=== PATIENT | female | born 1965 | race Caucasian/White ===

== ENCOUNTER 2020-10-20 15:32 | Outpatient (CLI) | payer MEDICARE, MEDICAID, SELFPAY ==
--- NOTE | 2020-10-20 15:15 | DI.RAD_ITS ---
Exam(s) XR KNEE LT 4V AP,LAT,VALENTE,PAT EXAM: XR KNEE LT 4V AP,LAT,VALENTE,PAT CLINICAL HISTORY: pain in left knee. TECHNIQUE: 2D digital imaging was performed. COMPARISON: No exams were available for comparison FINDINGS: There is no evidence of fracture but there is a joint effusion signifying internal derangement. Mode rate degenerative changes-narrowing of the medial compartment are noted. Bone density is age-appropr iate. No osseous lesions. IMPRESSION: Degenerative changes. Joint effusion. DATA REPOSITORY: RADIATION DOSE DELIVERED:
== END 2020-10-20 15:33 | disposition home or self-care (01) ==
LOC: DIORS 15:33
PROVIDERS: PCP Nurse Practitioner; Referring Provider Nurse Practitioner; Visit Provider Physician Assistant Surgical
DX: M25.562 Pain in left knee (principal); M25.462 Effusion, left knee
CPT/HCPCS: 20610; 99203; J1040; 73564

== ENCOUNTER 2022-01-16 14:37 | Emergency (ER) | payer MEDICARE, MEDICAID, SELFPAY ==
[2022-01-16 14:47] VITALS: BP 130/82; PULSE 96; RESP 18; TEMP 36.7; O2SAT 97
--- NOTE | 2022-01-16 15:15 | DI.CT_ITS ---
Exam(s) CT HEAD CERVICAL SPINE WO EXAM: CT HEAD CERVICAL SPINE WO CLINICAL HISTORY: fall/pain. TECHNIQUE: Imaging Protocol: Axial computed tomography images with coronal and sagittal reformatted images were created and reviewed COMPARISON: No exams were available for comparison FINDINGS: BRAIN: There are no skull fractures nor fluid in the visualized paranasal sinuses. There is no evidence of intracranial hemorrhage, mass effect, or shift of midline structures. There are no extra-axial fluid collections. The ventricles are not enlarged or shifted and there is no blo od within the ventricular system nor within the basal cisterns. Mildly asymmetric hypodensity is seen around the frontal horn of the right lateral ventricle. CERVICAL SPINE: There is no evidence of fracture nor listhesis. No significant prevertebral soft tissue swelling. Mild disc space narrowing at C4-5 and C5-6 levels. Minimal facet degenerative changes, most evident at C 3-4 left side. There is no significant facet joint malalignment. No significant osseous lesions evident. IMPRESSION: No acute intracranial findings on this noninfused CT scan of the brain.Slightly asymmetric white doyle er hypodensity around the frontal horn of the right lateral ventricle. If clinically indicated follo w-up MRI with diffusion imaging can be performed No evidence of cervical spine fracture, malalignment, nor acute compromise of the cervical spinal can al. RADIATION DOSE DELIVERED: 1,105.49mGy.cm Total DLP DATA REPOSITORY: All CT scans at this facility are submitted to the National Radiology Data Registry (NRDR) Dose Index Registry (DIR) with the [employer] (ACR). RADIATION OPTIMIZATION: All CT scans at this facility use at least one of these dose optimization te chniques: automated exposure control; mA and/or kV adjustment per patient size (includes targeted exa ms where dose is matched to clinical indication); or iterative reconstruction.
--- NOTE | 2022-01-16 15:20 | W.ED.GENAD ---
Discharge Plan Disposition Patient Disposition: STILL A PATIENT Condition: Stable Discharge Details Chief Complaint: Trauma Clinical Impression: Head injury, Neck pain Primary Care Provider: Taylor Bryant ED Provider: Antonio Miles Home Meds and New Rx's Prescriptions: No Action ibuprofen [Advil Liqui-Gel] 200 mg capsule 600 mg PO Q12H PRN acetaminophen [Tylenol Extra Strength] 500 mg tablet 500 mg PO Q6H PRN fluoxetine 40 mg Capsule 40 mg PO DAILY Rx Instructions: administer in the morning and at noon/midday Medical Decision Making 56-year-old female had a mechanical slip and fall while trimming bushes, reports striking her head and neck pain, denies LOC or visual changes. Clinically she appears well, nontoxic. Plan is to obtain CT imaging of head and C-spine. Patient is neurologically intact. Medical Records Medical records reviewed: Yes I reviewed the patient's medical records. HPI General Mode of arrival: ambulatory. Date/Time Provider Initiated Documentation: 01/16/22 14:55. Limitations to Documentation: no limitations. Information obtained by: patient. History of Present Illness 56 year old F presents to the emergency department with the chief complaint of Fall/ Head/neck pain, described as moderate, with intensity rated at 5. Quality is described as aching, and is localized to the head and neck. Patient reports no radiation. Patient started experiencing this hour(s) (1) and it has been constant. Immobilization improves symptom(s), Movement worsens symptoms . Patient notes no other symptoms.. Patient did receive the following treatments prior to arrival, none Related Data Home Medications Medication Instructions Recorded Confirmed acetaminophen 500 mg tablet 500 mg PO Q6H PRN 10/20/20 01/16/22 (Tylenol Extra Strength) ibuprofen 200 mg capsule (Advil 600 mg PO Q12H PRN 10/20/20 01/16/22 Liqui-Gel) fluoxetine 40 mg capsule 40 mg PO DAILY 01/16/22 01/16/22 Allergies Allergy/AdvReac Type Severity Reaction Status Date / Time codeine Allergy Intermediate Nausea Verified 01/16/22 14:51 General Stated Complaint: Trauma SHAUN: 3 Review of Systems Constitutional Constitutional: Denies fever(s) and Reports headache(s) Eyes Eyes: Denies change in vision ENT Ears, Nose, Mouth, and Throat: Reports headache(s) and Reports neck pain Cardiovascular Cardiovascular: Denies chest pain and Denies dyspnea Respiratory Respiratory: Denies dyspnea Gastrointestinal Gastrointestinal: Denies abdominal pain, Reports nausea and Denies vomiting Musculoskeletal Musculoskeletal: Denies back pain, Reports neck pain, Denies numbness and Denies tingling Neurologic Neurologic: Reports headache(s), Denies numbness and Denies tingling Hematologic/Lymphatic Hematologic/Lymphatic: Denies easy bleeding and Denies easy bruising PFSH All Active Problems (Updated 01/16/22 @ 15:25 by PATEL Pearson) Head injury (Acute) Neck pain (Acute) Psoriatic arthritis (Acute) left knee Social History Smoking/Tobacco Use Status: Never Smoking risk assessment performed?: Yes Alcohol Intake: current Alcohol Intake frequency: holidays/special occasions only Alcohol type: beer and wine Drug use: Never Substance use type: does not use Do you feel safe at home: Yes Do you feel safe in your relationship?: Yes Exam Const General: cooperative, healthy appearing, comfortable and no acute distress Orientation: alert, awake and oriented x3 [facility] Head: normocephalic Head images: 1. Contusion Face images: 1. Abrasion Mouth: moist mucous membranes Eyes General: appearance normal, both eyes and all related structures Conjunctivae: conjunctivae normal Neck Neck: normal visual inspection, trachea midline, supple and tender (Posterior, in a hard c-collar) Resp Effort & Inspection: normal respiratory effort and able to speak in complete sentences Auscultation: clear to auscultation bilaterally Cardio Rate: regular rate Rhythm: regular rhythm GI Palpation: soft and nontender Back/Spine/Pelvis Back: No back tenderness Skin General skin exam: no rashes or lesions noted Neuro General: patient alert, patient awake, patient oriented x3, moves all extremities and no focal motor deficits Cranial Nerves: CN's II-XI intact bilaterally Cognition: normal cognition Speech: speech normal Gait: normal gait Motor: muscle tone normal throughout and strength 5/5 throughout Sensory Exam: no sensory deficits noted Extrem General: full ROM and capillary refill normal Upper/lower leg/hip images: 1. Abrasions and contusions Psych Appearance: grossly normal Mental Status: mental status grossly normal Course Vital Signs Vital signs: Vital Signs Temperature 36.7 C 01/16/22 14:47 Pulse 96 H 01/16/22 14:47 Respiratory Rate 18 01/16/22 14:47 Blood Pressure 130/82 01/16/22 14:47 Pulse Oximetry 97 01/16/22 14:47 Temperature 36.7 C 01/16/22 14:47 Temperature Source Temporal Artery Scan 01/16/22 14:47 Pulse 96 H 01/16/22 14:47 Respiratory Rate 18 01/16/22 14:47 Respiratory Effort Non-Labored 01/16/22 14:52 Blood Pressure 130/82 01/16/22 14:47 Blood Pressure Position Sitting 01/16/22 14:47 Pulse Oximetry 97 01/16/22 14:47 Oxygen Delivery Method Room Air 01/16/22 14:47 Oxygen Flow Rate 0 01/16/22 14:47 Pain Level 01/16/22 14:47 PAWSS Have you Been Recently Intoxicated or Drunk Within the Last 30 days?: No Have you Ever Experienced Previous Episodes of Alcohol Withdrawal?: No Have you ever Experienced Withdrawal Seizures?: No Have you ever Experienced Delirium Tremens(DT)s?: No Have you ever undergone Alcohol Rehabilitation Treatment (i.e, inpt ot outpatient treatment programs)?: No Have you ever Experienced Blackouts?: No Have you ever Combined Alcohol with other Downers within the last 90 days?: No Have you ever Combined Alcohol with any other Substance of Abuse during the last 90 days?: No Positive Blood Alcohol level on Presentation? [PCS.BAL]: No Evidence of Increased Autonomic Activity (i.e. HR>120, tremor, sweating, agitation, nausea)?: No Result: 0
--- NOTE | 2022-01-16 15:59 | ED.PROG_ITS ---
Date of service: 01/16/22 Time of Service: 15:59 Medical Decision Making Care assumed from provider (PATEL Barone) Please see their initial HPI, PE, and documentation. Discussed patient details and case and pending workup and disposition. Patient is hemodynamically stable, and alert and oriented. At the time of signout CT head C-spine pending. CT result is negative for intracranial abnormality no cervical spine fracture. This text was generated using [employer] dictation system, please disregard any od dities of phrase or misspellings. Sign Out Sign Out Data: Sign Out Comment: Mechanical fall. Awaiting head and C-spine CT Last updated by Antonio Miles PA at 01/16/22 15:26 Discharge Plan Disposition Patient Disposition: HOME Condition: Stable Discharge Details Clinical Impression: Head injury, Neck pain Primary Care Provider: Taylor Bryant ED Provider: Janeth Morris Home Meds and New Rx's Prescriptions: No Action ibuprofen [Advil Liqui-Gel] 200 mg capsule 600 mg PO Q12H PRN acetaminophen [Tylenol Extra Strength] 500 mg tablet 500 mg PO Q6H PRN fluoxetine 40 mg Capsule 40 mg PO DAILY Rx Instructions: administer in the morning and at noon/midday Discharge Instructions Instructions: Head Injury (ED), Neck Pain (ED) Additional Instructions: CT shows no intracranial hemorrhage or any acute abnormality. No fractures of your C-spine. I do suspect cervical strain. Rest ice. You may apply ice and heat. Please take Tylenol or Ibuprofen with food every 4-6 hours as needed for pain and swelling. Follow up with primary care provider in 3-5 days. Return to ED sooner if any worsening or concerns. Increase oral fluids. Referrals: Taylor Bryant [Primary Care Provider] - 3 days
--- NOTE | 2022-01-16 17:58 | DI.VRAD_ITS ---
PROCEDURE INFORMATION: Exam: CT Head Without Contrast Exam date and time: 01/16/2022 5:35 PM Age: 56 years old Clinical indication: Injury or trauma; Blunt trauma (contusions or hematomas); Consciousness not specified; Patient HX: Fall/pain TECHNIQUE: Imaging protocol: Computed tomography of the head without contrast. COMPARISON: No relevant prior studies available. FINDINGS: Brain: Normal. No hemorrhage. Unremarkable white matter. No mass effect. Cerebral ventricles: No ventriculomegaly. Paranasal sinuses: Visualized sinuses are unremarkable. No fluid levels. Mastoid air cells: Visualized mastoid air cells are well aerated. Bones/joints: Unremarkable. No acute fracture. Soft tissues: Unremarkable. IMPRESSION: 1. No acute intracranial abnormality. 2. No intracranial hemorrhage. PROCEDURE INFORMATION: Exam: CT Cervical Spine Without Contrast Exam date and time: 01/16/2022 5:35 PM Age: 56 years old Clinical indication: Injury or trauma; Blunt trauma (contusions or hematomas); Consciousness not specified; Patient HX: Fall/pain TECHNIQUE: Imaging protocol: Computed tomography of the cervical spine without contrast. COMPARISON: No relevant prior studies available. FINDINGS: Bones/joints: No acute fracture. Normal alignment. No significant disc protrusion. No severe spinal canal stenosis. Lungs: Lung apices are normal. Soft tissues: Unremarkable. IMPRESSION: 1. No acute findings. 2. No fracture or dislocation. Dictated and Authenticated by: Nirmal Garcia MD. Ordering:ADOLFO Alvarez MD
[2022-01-16 18:12] VITALS: BP 128/72; PULSE 72; RESP 17; TEMP 36.8; O2SAT 98
== END 2022-01-16 18:15 | disposition home or self-care (01) ==
PROVIDERS: Emergency Provider Registered Nurse Emergency; PCP Nurse Practitioner
DX: S00.83XA Contusion of other part of head, initial encounter (principal); G89.11 Acute pain due to trauma; M54.2 Cervicalgia; S80.11XA Contusion of right lower leg, initial encounter; S80.12XA Contusion of left lower leg, initial encounter; W01.0XXA Fall on same level from slipping, tripping and stumbling without subsequent striking against object, initial encounter; Y93.H2 Activity, gardening and landscaping
CPT/HCPCS: 99284; 70450; 72125; 99282

== ENCOUNTER 2022-10-26 12:55 | Emergency (ER) | payer MEDICARE, MEDICAID, SELFPAY ==
--- NOTE | 2022-10-26 12:45 | RT.EKG_ITS ---
APPROVED REPORT Exam: Resting ECG Reason for Exam: chest pain Patient Location: E HR:83 bpm ECG Measurements Heart Rate 83 AXIS NV 140 P 55 QRSd 94 QRS -29 QT 349 T 28 QTc 410 Conclusion Sinus rhythm...normal P axis, V-rate 60- 99 Probable left atrial enlargement...P >50mS, <-0.10mV V1 Narrow complex normal sinus rhythm at a rate of 83. Left axis deviation. No signs of LVH. Interval s within normal limits. No acute injury pattern. No prior for comparison.
[2022-10-26 12:59] VITALS: BP 155/88; PULSE 80; RESP 18; TEMP 36.8; O2SAT 99
--- NOTE | 2022-10-26 13:24 | ED.GENADUL_ITS ---
Discharge Plan Disposition Patient Disposition: Home Condition: Stable Discharge Details Clinical Impression: Chest pain Primary Care Provider: Taylor Bryant ED Provider: Inderjit Marsh Home Meds and New Rx's Prescriptions: Continued ibuprofen [Advil Liqui-Gel] 200 mg capsule 600 mg PO Q12H PRN acetaminophen [Tylenol Extra Strength] 500 mg tablet 500 mg PO Q6H PRN fluoxetine 40 mg Capsule 40 mg PO DAILY Rx Instructions: administer in the morning and at noon/midday Discharge Instructions Instructions: Chest Pain (ED) Additional Instructions: your ekg and blood work did not show concerning findings at this time Follow up with your primary care provider within 1 week if you feel more ill, have severe worsening pain or difficulty breathing return to the emergency department Medical Decision Making 57 yo female with hx of depression comes in with cc of chest aching sensation radiating to the back and feeling lightheaded since 11am this morning. Denies fevers, chills, dyspnea, n/v, diaphoresis. She arrives stable, speaking in full sentences in no distress. She has clear lungs, no murmurs, no jvd, no leg swelling, no calf tenderness. Given her complaint will proceed with cbc, cmp, troponin, d dimer and monitor. She has no tearing back pain and normal equal pulses so doubt dissection. Pt stable, labs unremarkable and she feels better, will obtain delta troponin. patient asymptomatic, stable, delta troponin negative. HEArt score is 1, stable for d/c and advised to f/u with pcp, return precautions given Differential Diagnosis Differential Diagnosis: nstemi, pe, anxiety Lab Data Lab results reviewed: Yes I reviewed the patient's lab results. ECG Data Attestation: I personally reviewed and interpreted this ECG (s) as follows: Prior ECG tracings: not available for review Interpretation: sinus rhythm, rate of 83, pr 140, qtc 410, no acute ischemic findings HPI General Mode of arrival: ambulatory . Date/Time Provider Initiated Documentation: 10/26/22 12:59 . Limitations to Documentation: no limitations . Information obtained by: patient . History of Present Illness 57 year old F presents to the emergency department with the chief complaint of chest pain, described as moderate, Quality is described as aching, and is localized to the chest. Patient reports radiation to back. Patient started experiencing this hour(s) (2) and it has been constant. No relieving factors improve symptom(s), No exacerbating factors reported . Patient notes other (lightheaded). Patient did receive the following treatments prior to arrival, NSAID Related Data Home Medications Medication Instructions Recorded Confirmed acetaminophen 500 mg tablet 500 mg PO Q6H PRN 10/20/20 01/16/22 (Tylenol Extra Strength) ibuprofen 200 mg capsule (Advil 600 mg PO Q12H PRN 10/20/20 01/16/22 Liqui-Gel) fluoxetine 40 mg capsule 40 mg PO DAILY 01/16/22 01/16/22 Allergies Allergy/AdvReac Type Severity Reaction Status Date / Time codeine Allergy Intermediate Nausea Verified 01/16/22 14:51 General Stated Complaint: Chest Pain SHAUN: 3 Review of Systems All systems reviewed & are unremarkable except as noted in HPI and below Constitutional Constitutional: Denies chills, Denies fever(s) and Denies weakness Cardiovascular Cardiovascular: Denies dyspnea Respiratory Respiratory: Denies cough and Denies dyspnea Gastrointestinal Gastrointestinal: Denies abdominal pain, Denies nausea and Denies vomiting Integumentary/Breasts Skin/Breast: Denies rash Neurologic Neurologic: Denies weakness PFSH All Active Problems (Updated 10/26/22 @ 15:03 by Inderjit Marsh MD) Chest pain (Acute) Psoriatic arthritis (Acute) left knee Social History Smoking/Tobacco Use Status: Never Smoking risk assessment performed?: Yes Alcohol Intake: current Alcohol Intake frequency: holidays/special occasions only Alcohol type: beer and wine Drug use: Never Substance use type: does not use Do you feel safe at home: Yes Do you feel safe in your relationship?: Yes Exam Const General: no acute distress Orientation: alert HENNY Head: normal to inspection Ears: external ears normal General nose exam: external nose normal Mouth: moist mucous membranes Eyes General: appearance normal, both eyes and all related structures Neck Neck: normal visual inspection Resp Effort & Inspection: normal respiratory effort and able to speak in complete sentences Auscultation: clear to auscultation bilaterally Cardio Jugular venous pressure: no JVD Rate: regular rate Heart Sounds: no murmurs GI Palpation: soft and nontender Skin General skin exam: no rashes or lesions noted Neuro General: patient alert and patient oriented x3 Extrem General: normal to inspection Psych Mental Status: mental status grossly normal Course Vital Signs Vital signs: Vital Signs Temperature 36.8 C 10/26/22 12:59 Pulse 80 10/26/22 12:59 Respiratory Rate 18 10/26/22 12:59 Blood Pressure 155/88 H 10/26/22 12:59 Pulse Oximetry 99 10/26/22 12:59 Temperature 36.8 C 10/26/22 12:59 Temperature Source Oral 10/26/22 12:59 Pulse 80 10/26/22 12:59 Respiratory Rate 18 10/26/22 12:59 Respiratory Effort Normal, Short of Breath 10/26/22 13:04 Blood Pressure 155/88 H 10/26/22 12:59 Blood Pressure Position Sitting 10/26/22 12:59 Pulse Oximetry 99 10/26/22 12:59 Oxygen Delivery Method Room Air 10/26/22 12:59 Oxygen Flow Rate 0 10/26/22 12:59 Pain Level 8 10/26/22 12:59
[2022-10-26 13:57] LABS: Abs Immature Grans 0.03 10^3/uL (0.0-0.06); Absolute Basophil Count 0.04 10^3/uL (0.0-0.2); Absolute Eosinophil Count 0.16 10^3/uL (0.0-0.7); Absolute Monocyte Count 0.52 10^3/uL (0.1-0.8); Basophils % 0.7; Eosinophils % 2.9; HCT 37.5 % (36.0-46.0); HGB 12.6 g/dL (11.2-15.7); Immature Grans % 0.5; MCH 30.5 pg (27.0-33.0); MCHC 33.6 % (32.0-36.0); MCV 91 fL (80-95); MPV 10.8 fL (8.0-11.0); Monocytes % 9.4; Neutrophils % 59.5; Platelet Count 274 10^3/uL (130-400); RBC 4.13 10^6/uL (3.93-5.22); RDW 13.5 % (11.7-14.6); RDW-SD 44.9 fL; WBC 5.55 10^3/uL (4.4-10.8)
[2022-10-26 14:15] LABS: ALT 59 U/L (14-59); AST 24 U/L (15-37); Albumin 3.7 g/dL (3.4-5.0); Alkaline Phosphatase 67 U/L (46-116); Anion Gap 8.1 mmol/L (3-11); BUN 28 mg/dL (7-18); Bilirubin, Total 0.7 mg/dL (0.2-1.0); CO2 26.9 mmol/L (21.0-32.0); Chloride 106 mmol/L (98-107); Estimated GFR 65.71 (mL/min/1.73m2); Glucose 101 mg/dL (74-106); Lipase 41 U/L (16-77); Magnesium 1.9 mg/dL (1.8-2.4); Potassium 4.4 mmol/L (3.5-5.1); Sodium 141 mmol/L (136-145); Total Protein 6.9 g/dL (6.4-8.2); Troponin I < 50 ng/L (<or=60)
[2022-10-26 14:34] LABS: D-Dimer 291 ng/mlFEU (<500)
[2022-10-26 14:37] LABS: PTT Activated 23.6 sec (21.5-31.9); Prothrombin Time 9.9 sec (9.3-11.0)
[2022-10-26 16:40] LABS: Troponin I < 50 ng/L (<or=60)
== END 2022-10-26 17:26 | disposition home or self-care (01) ==
PROVIDERS: Emergency Provider Emergency Medicine; PCP Nurse Practitioner
DX: R07.9 Chest pain, unspecified (principal)
CPT/HCPCS: 80053; 83690; 93005; 99283; 83735; 84484; 85025; 85379; 85610; 85730; 93010

== ENCOUNTER 2023-12-05 02:24 | Outpatient (CLI) | payer MEDICARE, MEDICAID, SELFPAY ==
--- OUTSIDE RECORDS SUMMARY | 2023-12-05 02:25 | XMS_ITS | Encounter Summary ---
Author Organization [facility] Address [facility] [place] [address] Care Team Providers Care Caddy/Caddie Supervisor Name Role Phone Taylor Bryant APRN Primary Care Provider [phone] Encounter Details Date Type Department Care Team ([facility] st Contact Info) Description 11/16/2023 Telephone Otolaryngology at [facility] [place] [id number] Mary Lou Bryant Social History Tobacco Use Types Packs/Day Years Used Date Smoking Tobacco: Former Smokeless Tobacco: Never Comments:quit at age 35 Alcohol Use Standard Drinks/Week Comments Yes 0 (1 standard drink = 0.6 oz pur e alcohol) social gatherings [facility] Utilities Answer Date Recorded In the past 12 months has e electric, gas, oil, or water company threatened to shut off services in your home? No 07/24/2023 Overall Financial Resource Strain (CARDIA) Answe r Date Recorded How hard is it for you to pa y for the very basics like food, housing, medical care, and heating? Hard 07/24/2023 Hunger Vital Sign Answer Date Recorded Within the past 12 months, y ou worried that your food would run out before you got the money to buy more. Never true 07/24/19 24 Within the past 12 months, t he food you bought just didn't last and you didn't have money to get more. Never true 07/24/2023 PRAPARE - Transportation Answer Date Re corded In the past 12 months, has l ack of transportation kept you from medical appointments or from getting medications? No 07/07 In the past 12 months, has l ack of transportation kept you from meetings, work, or from getting things needed for daily living? No 07/24/2023 Housing Stability Vital Sign Answer Dirk e Recorded In the last 12 months, was t here a time when you were not able to pay the mortgage or rent on time? No 07/24/2023 In the last 12 months, how many places have you lived? 1 07/24/2023 In the last 12 months, was t here a time when you did not have a steady place to sleep or slept in a group home (including now)? No 07/24/2023 IPV Inpatient Questions Answer Date Recorded Does Anyone Try to Keep You From Having Contact with Others or Doing Things Outside Your Home? unable to answer (comment required) 09/28/2023 Feels Threatened by Someone unable to an swer (comment required) 09/28/2023 Feels Unsafe at Home or Work/School unab le to answer (comment required) 09/28/2023 Physical Signs of Abuse Present no 09/28/2023 Sex and Gender Information Value Date Recorded Sex Assigned at Not on file Gender Identity Not on file Sexual Orientation Not on file documented as of this encounter Miscellaneous Notes * Telephone Encounter - Mary Lou Bryant - 11/16/2023 9:13 AM EDT Spoke with pt in regards to 11/16 bump to reschedule. documented in this encounter Plan of Treatment Upcoming Encounters Date Type Department Care Team (Late st Contact Info) Description 12/20/2023 2:15 PM EDT Office Visit Dermatology at [place] [address] [place] [address] Inderjit Vilchis MD [facility] [address] [place] [address] 12/22/2023 10:00 AM EDT Office [place] [address] Norm Joy PA [facility] [place] [address] 12/26/2023 11:45 AM EDT Appointment Hematology and Oncology at [place] [address] 12/26/2023 12:45 PM EDT Office Visit Hematology and Oncology at [address] Jean-Pierre Peña MD [facility] [address] [place] [address] Vicky Burnham APRN [facility] [place] [address] 12/26/2023 2:30 PM EDT Appointment Hematology and Oncology at [place] [address] 02/06/2024 10:00 AM EDT Appointment Hematology and Oncology at [place] [address] 02/06/2024 12:45 PM EDT Office Visit Hematology and Oncology at [place] [address] Jean-Pierre Peña MD [facility] [address] [place] [address] Vicky Burnham APRN [facility] [place] [address] 02/06/2024 2:00 PM EDT Appointment Hematology and Oncology at [place] [address] documented as of this encounter Visit Diagnoses Not on filedocumented in this encounter Care Teams Caddy/Caddie Supervisor Relationship Specialty Start Date End Date Taylor Bryant APRN [address] [place] [id number] PCP - General 03/31/10 documented as of this encounter
--- OUTSIDE RECORDS SUMMARY | 2023-12-05 02:25 | XMS_ITS | Encounter Summary ---
Author Organization [facility] [place] [address] Care Team Providers Care Telephone Sales Representative Name Role Phone Taylor Bryant APRN Primary Care Provider [phone] Encounter Details Date Type Department Care Team ([facility] st Contact Info) Description 11/29/2023 Telephone Hematology [place] [phone] Gianna Sanabria RN Social History Tobacco Use Types Packs/Day Years Used Date Smoking Tobacco: Former Smokeless Tobacco: Never Comments:quit at age 35 Alcohol Use Standard Drinks/Week Comments Yes 0 (1 standard drink = 0.6 oz pur e alcohol) social gatherings [facility] Utilities Answer Date Recorded In the past [...] place to sleep or slept in a senior living (including now)? 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 Call placed to [facility] to reassess her joint pain. Patient reported no improvement on her joint pain especially on her hands. Swelling noted right>left, numbness and tingling since it's hard to move her fingers. Patient is taking Advil and Tylenol w/some relief. Patient noticed more muscle pain after her last Keytruda treatment on . No redness and deformity noted. Patient is not on Prednisone Patient will be seen on 12/[address] Peña and would like to discuss if she can move her treatment back to every 3 weeks, but [facility] Patient is wondering if she is going to have CT scan scheduled with her appointment on 02/05. Patient notified that triage nurse would f/u with provider & get back to her. Patient verbalizes agreement to call office for any new or worsening symptoms. Per Lucina:Please have her start 20mg prednisone daily. I will place the order now; please check on her in a day or two and verify improvement of symptoms. 20mg pred for 7 days And then 10mg for 7 days dependent on symptoms. Starting 12/25 we will lower pembro dose back to 200mg every 3 weeks. We will schedule CT accordingly with January appt. T/C to patient: Call placed to patient who was notified to start taking Prednisone 20 mg daily x 7days 11/28- and then 10 mg x 7days depending on symptoms. Nursing to call patient within couple days to reassess joint pain & call on to discuss prednisone taper. Patient notified that Pembro dose will be decreased to 200 mg on 12/[address] will be ordered for January. Patient verbalizes agreement and understanding of plan of care and to call office for any new or worsening symptoms. documented in this encounter Plan of Treatment Upcoming Encounters Date Type Department Care Team (Late st Contact Info) Description 12/20/2023 2:15 PM EDT Office Visit Dermatology at [address] [address] Inderjit Vilchis MD [facility] DR GILBERTO [place] [address] 12/22/2023 10:00 AM EDT Office Visit [place] [phone] Norm Joy PA [facility] [place] [address] 12/26/2023 11:45 AM EDT Appointment Hematology [place] [phone] 12/26/2023 12:45 PM EDT Office Visit Hematology [place] [phone] Jean-Pierre Peña MD [facility] DR HEMATOLOGY [place] [address] Vicky Burnham APRN [facility] [place] [address] 12/26/2023 2:30 PM EDT Appointment Hematology and Oncology at [place] [phone] 02/06/2024 10:00 AM EDT Appointment Hematology and Oncology at [place] [phone] 02/06/2024 12:45 PM EDT Office Visit Hematology and Oncology at [place] [phone] Jean-Pierre Peña MD [facility] DR HEMATOLOGY [place] [address] Vicky Burnham [employer] [facility] [place] [address] 02/06/2024 2:00 PM EDT Appointment Hematology [place] [address] documented as of this encounter Visit Diagnoses Not on filedocumented in this encounter Care Teams Telephone Sales Representative Relationship Specialty Start Date End Date Taylor Bryant APRN [address] [place] [id number] PCP - General 03/31/10 documented as of this encounter
--- OUTSIDE RECORDS SUMMARY | 2023-12-05 02:25 | XMS_ITS ---
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 Medication management 07/25/2023 Bilateral knee pain 12/14/2017 Psoriatic arthritis 06/09/2016 Current Oncology Plans [facility] ON[facility] SKIN MELANOMA - PEMBROLIZUMAB* Plan Start Date:08/23/2023 Plan Provider:Jean-Pierre Peña MD Linked Problems Medication managementMaligna nt melanoma of scalp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, unspecified lymph node region Treatment Medications Current Day (Day 1 , Cycle 6 - Planned for 12/26/2023) Next Day (Day 1, Cycle 7 - Planned for 02/06/2024) pembrolizumab (Keytruda) in sodium chloride 0.9% 100 mL infusionpembrolizumab (Keytruda) Recon Soln pembrolizumab (Keytruda) 400 mg in sodium chloride 0.9% 116 mL infusion pembrolizumab (Keytruda) 400 mg in sodium chloride 0.9% 116 mL infusion Past Plans No past plan information found. Radiation Treatments * No radiation treatments are documented for this patient in [facility]. Treatments may have been administered in another system.
--- OUTSIDE RECORDS SUMMARY | 2023-12-05 02:25 | XMS_ITS | Encounter Summary ---
Author Organization [facility] Address [facility] [place] [address] Care Team Providers Care Lifter/Driver Name Role Phone AnnetteTaylor ZARA Primary Care Provider [phone] Encounter Details Date Type Department Care Team ([facility] st Contact Info) Description 11/29/2023 Orders Only Hematology [place] [address] Vicky Burnham [employer] [facility] [place] [address] Social History Tobacco Use Types Packs/Day Years Used Date Smoking Tobacco: Former Smokeless Tobacco: Never Comments:quit at age 35 Alcohol Use Standard Drinks/Week Comments Yes 0 (1 standard drink = 0.6 oz pur e alcohol) social gatherings [facility] Utilities Answer Date Recorded In the past 12 months has th e electric, gas, oil, or water company [...] place to sleep or slept in a prison (including now)? No 07/24/2023 IPV Inpatient Questions [...] on file documented as of this encounter Plan of Treatment Upcoming Encounters Date Type Department Care Team (Late st Contact Info) Description 12/20/2023 2:15 PM EDT Office Visit Dermatology at [address] [address] Inderjit Vilchis MD [facility] DR GILBERT[place] [address] 12/22/2023 10:00 AM EDT Office [place] [phone] Norm Joy PA [facility] [place] [address] 12/26/2023 11:45 AM EDT Appointment Hematology [place] [phone] 12/26/2023 12:45 PM EDT Office Visit [place]ematology [place] [address] Jean-Pierre Peña MD [facility] [place] [address] Vicky Burnham APRN [facility] [place] [place] [address] 12/26/2023 2:30 PM EDT Appointment Hematology and Oncology at [place] [address] 02/06/2024 10:00 AM EDT Appointment Hematology and Oncology at [place] [phone] 02/06/2024 12:45 PM EDT Office Visit Hematology and Oncology at [place] [address] Jean-Pierre Peña MD [facility] [place] [address] Vicky Burnham [employer] [facility] [place] [address] 02/06/2024 2:00 PM EDT Appointment Hematology and Oncology at [place] [phone] documented as of this encounter Visit Diagnoses Not on filedocumented in this encounter Care Teams Lifter/Driver Relationship Specialty Start Date End Date Taylor Bryant APRN [address] [place] [address] PCP - General 03/31/10 documented as of this encounter
--- OUTSIDE RECORDS SUMMARY | 2023-12-05 02:25 | XMS_ITS | Encounter Summary ---
Author Organization [facility] Address [facility] [place] [address] Care Team Providers Care Wash Barrel Leader Name Role Phone Taylor Bryant APRN Primary Care Provider [phone] Encounter Details Date Type Department Care Team ([facility] st Contact Info) Description 11/21/2023 Telephone Hematology [place] [phone] Roselyn Sánchez Social History Tobacco Use Types Packs/Day Years Used Date Smoking Tobacco: Former Smokeless Tobacco: Never Comments:quit at age 35 Alcohol Use Standard Drinks/Week Comments Yes 0 (1 standard drink = 0.6 oz pur e alcohol) social gatherings [facility] Utilities Answer Date Recorded In the [...] place to sleep or slept in a snf (including now)? No 07/24/2023 IPV Inpatient Questions [...] encounter Miscellaneous Notes * Telephone Encounter - Roselyn Sánchez - 11/21/2023 4:17 PM EDT [facility] Dry Dip Worker spoke to Keeley. [facility] awarded another $175 to be used for gas expenses for [facility] appt. No further outreach needed at this time. Patient has my contact information if she need future assistance. Roselyn Sánchez documented in this encounter Plan of Treatment Upcoming Encounters Date Type Department Care Team (Late st Contact Info) Description 12/20/2023 2:15 PM EDT Office Visit Dermatology at [place] [address] [place] [address] Inderjit Vilchis MD [facility] DR [place] [address] 12/22/2023 10:00 AM EDT Office [place] [address] Norm Joy PA [facility] [place] [address] 12/26/2023 11:45 AM EDT Appointment Hematology and Oncology at [place] [address] 12/26/2023 12:45 PM EDT Office Visit Hematology and Oncology at [place] [address] Jean-Pierre Peña MD [facility] [address] [place] [address] Vicky Burnham APRN [facility] [address] 12/26/2023 2:30 PM EDT Appointment Hematology and Oncology at [place] [address] 02/06/2024 10:00 AM EDT Appointment Hematology and Oncology at [place] [address] 02/06/2024 12:45 PM EDT Office Visit Hematology and Oncology at [place] [address] Jean-Pierre Peña MD [facility] [address] [place] [address] Vicky Burnham [employer] REPRESENTATIVE [facility] [place] [address] 02/06/2024 2:00 PM EDT Appointment Hematology and Oncology at [address] documented as of this encounter Visit Diagnoses Not on filedocumented in this encounter Care Teams Wash Barrel Leader Relationship Specialty Start Date End Date Taylor Bryant APRN [address] [place] [address] PCP - General 03/31/10 documented as of this encounter
--- OUTSIDE RECORDS SUMMARY | 2023-12-05 02:25 | XMS_ITS | Clinical Summary ---
Author Organization [facility] [place] [address] Care Team Providers Care Aircraft Dispatcher Name Role Phone Taylor Bryant ZARA Primary Care Provider [phone] Allergies Active Allergy Reactions Criticality Noted Date Comments Codeine Phosphate CIS - vomit Medications Medication Sig Dispensed Refills Start Date End Date Status FLUoxetine (PROZAC) 40 mg Capsule Take 40 mg by mouth daily. Active elderberry fruit 350 mg Capsule Take by mouth. Active cholecalciferol, Vitamin D3, 50 mcg (2,000 unit) Capsule Take by mouth. Active ascorbic acid, Vitamin C, (Vitamin C) 500 mg tablet Take 500 mg by mouth daily. Active multivit-min/vit C/herb no.124 (AIRBORNE GUMMY ORAL) Take by mouth. Active TURMERIC ORAL Take by mouth. Active predniSONE (Deltasone) 10 mg tablet Take 2 tablets by mouth daily for 30 days. Please take 2 tablets once a day for a week; then 1 tablet daily for seven days. 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 Medication management 07/25/2023 Bilateral knee pain 12/14/2017 Psoriatic arthritis 06/09/2016 Encounters Date Type Department Care Team Description 11/29/2023 Orders Only Hematology [place] [phone] Vicky Burnham APRN 11/29/2023 Telephone Hematology [place] [address] Gianna Sanabria RN 11/21/2023 Telephone Hematology [place] [address] Roselyn Sánchez 11/16/2023 [place] [address] Mary Lou Bryant 11/16/2023 Telephone [place]ematology [place] [address] Gianna Sanabria RN 11/14/2023 8:45 AM EDT Office Visit Hematology [place] [address] Jean-Pierre Peña MD Neilan, Kathleen M, [employer] SAL[employer] ADVISOR Malignant melanoma of scalp (Primary Dx); Secondary malignancy of soft tissue; Medication management; Immunotherapy 11/14/2023 7:19 AM EDT - 11/14/2023 11:59 PM EDT Hospital Encounter Hematology [place] [address] Medication management; Malignant melanoma of scalp; 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, unspecified lymph node region Discharge Disposition: Home 11/14/2023 7:18 AM EDT Hospital Encounter Hematology [place] [address] Medication management; Malignant melanoma of scalp; 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, unspecified lymph node region Discharge Disposition: Home 11/13/2023 Travel 11/08/2023 Notes Only Hematology [place] [address] Roselyn Sánchez 10/27/2023 Telephone Hematology [place] [address] Roselyn Sánchez 10/25/2023 Telephone Hematology [place] [address] Roselyn Sánchez 10/24/2023 9:30 AM EDT Office [place] [address] Norm Joy PA Malignant melanoma of scalp 10/24/2023 8:45 AM EDT Office Visit Hematology [place] [address] Jean-Pierre Peña MD Neilan, Kathleen M, [employer] SAL[employer] ADVISOR Malignant melanoma of scalp (Primary Dx); Secondary malignancy of soft tissue; Medication management; Immunotherapy 10/24/2023 7:29 AM EDT - 10/24/2023 11:59 PM EDT Hospital Encounter Hematology [place] [address] Medication management; Malignant melanoma of scalp; 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, unspecified lymph node region Discharge Disposition: Home 10/24/2023 7:28 AM EDT Hospital Encounter Hematology [place] [address] Medication management; Malignant melanoma of scalp; 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, unspecified lymph node region Discharge Disposition: Home 10/23/2023 Travel 10/13/2023 2:30 PM EDT Office [place] [address] Norm Joy PA Malignant melanoma of scalp 10/13/2023 Travel 10/11/2023 Multidisciplinary Ca re Committee Hematology [place] [address] Jean-Pierre Peña MD 10/06/2023 1:40 PM EDT Office [place] [address] Castro Preciado MD Malignant melanoma of scalp; Psoriatic arthritis 10/06/2023 Notes Only Hematology [place] [address] 10/06/2023 Travel 10/04/2023 11:30 AM EDT Office Visit Hematology [place] [address] Jean-Pierre Peña MD Malignant melanoma of scalp (Primary Dx); Secondary malignancy of soft tissue; Immunotherapy 10/04/2023 10:28 AM EDT - 10/04/2023 11:59 PM EDT Hospital Encounter Hematology [place] [address] Medication management; Malignant melanoma of scalp; 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, unspecified lymph node region Discharge Disposition: Home 10/04/2023 10:27 AM EDT Hospital Encounter Hematology [place] [address] Medication management; Malignant melanoma of scalp; 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, unspecified lymph node region Discharge Disposition: Home 10/04/2023 Notes Only Hematology [place] [address] Roselyn Sánchez 10/04/2023 Tele[place] [address] Funmi Apple RN 10/03/2023 Travel 09/28/2023 11:42 AM EDT Anesthesia Event [place] [address] Jorge Luis Jasso MD 09/28/2023 9:45 AM EDT - 09/28/2023 1:30 PM EDT Surgery [place] [address] Castro Preciado MD ADJ.TISSUE TRANSFER, REARRANGEMENT, 10.1 TO 30 SQ.CM, SCALP (WRVU 9.72) 09/28/2023 8:24 AM EDT - 09/28/2023 5:04 PM EDT Hospital Encounter [place] [address] Castro Preciado MD Discharge Disposition: Home 09/28/2023 Notes Only Hematology [place] [address] Cheryl Daley, GEMMA 09/28/2023 Notes Only Hematology and Oncology at [place] [phone] Brianne German, GEMMA 09/28/2023 Orders Only Hematology and Oncology at [place] [phone] Jean-Pierre Peña MD 09/19/2023 Telephone Hematology and Oncology at [place] [phone] Gianna Sanabria RN 09/16/2023 12:45 PM EDT - 09/16/2023 3:30 PM EDT [place] [address] Castro Preciado MD RADICAL RESECTION TUMOR SCALP; >2 CM (WRVU 15.26) 09/16/2023 11:48 AM EDT Anesthesia [place] [address] Des Mercedes MD 09/16/2023 9:54 AM EDT - 09/16/2023 5:20 PM EDT Hospital Encounter Same Day Program at [place] [address] Castro Preciado MD Discharge Disposition: Home 09/16/2023 8:00 AM EDT - 09/16/2023 9:53 AM EDT Hospital Encounter Nuclear Medicine at [place] [phone] Castro Preciado MD Discharge Disposition: Home 09/16/2023 7:59 AM EDT Hospital Encounter Nuclear Medicine at [place] [phone] Castro Preciado MD Malignant melanoma of scalp Discharge Disposition: Home 09/16/2023 Travel 09/14/2023 Telephone Hematology and Oncology at [place] [phone] Roselyn Sánchez 09/12/2023 8:45 AM EDT Office Visit Hematology [place] [address] Jean-Pierre Peña MD Gibson, Courtney S, ZARA Malignant melanoma of scalp; Secondary malignancy of soft tissue; Medication management; Immunotherapy 09/12/2023 7:35 AM EDT - 09/12/2023 11:59 PM EDT Hospital Encounter Hematology [place] [address] Medication management; Malignant melanoma of scalp; 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, unspecified lymph node region Discharge Disposition: Home 09/12/2023 7:35 AM EDT - 09/12/2023 11:59 PM EDT Hospital Encounter Hematology [place] [address] Medication management; Malignant melanoma of scalp; 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, unspecified lymph node region Discharge Disposition: Home 09/12/2023 [place] [address] Tegan Mcnamara, [facility] 09/12/2023 Specialty [place] [address] Tegan Mcnamara [facility] 09/11/2023 Travel 09/06/2023 2:30 PM EDT Office Visit Dermatology at [address] [address] Inderjit Vilchis MD Malignant melanoma, unspecified site 09/06/2023 Travel 09/05/2023 Telephone Hematology [place] [address] Roselyn Sánchez from Last 3 Months Family History Medical History Relation Comments Cancer Father Cancer Paternal Aunt Cancer Paternal Uncle Relation Status Comments Father Paternal Aunt Paternal Uncle Social History Tobacco Use Types Packs/Day Years Used Date Smoking Tobacco: Former Smokeless Tobacco: Never Tobacco Cessation:Counseling Given: Not Answered Comments:quit at age 35 Alcohol Use Standard Drinks/Week Comments Yes 0 (1 standard drink = 0.6 oz pur e alcohol) social gatherings [facility] Utilities Answer Date Recorded In the [...] place to sleep or slept in a alf (including now)? No 07/24/2023 DH IPV Inpatient Questions Answer Date Recorded Does [...] on file Sexual Orientation Not on file Last Filed Vital Signs Vital Sign Reading Time Taken Comments Blood Pressure 115/72 11/14/2023 8:47 AM EDT Pulse 66 11/14/2023 8:47 AM EDT Temperature 36.2 ??C (97.2 ??F) 11/14/2023 8:47 AM ED T Respiratory Rate 18 11/14/2023 8:47 AM EDT Oxygen Saturation 100% 11/14/2023 8:47 AM EDT Inhaled Oxygen Concentration - - Weight 70.6 kg (155 lb 10.3 oz) 11/14/2023 8:47 AM EDT Height 161.3 cm (5' 3.5) 11/14/2023 8:47 AM EDT Body Mass Index 27.14 11/14/2023 8:47 AM EDT Plan of Treatment Upcoming Encounters Date Type Department Care Team (Late st Contact Info) Description 12/20/2023 2:15 PM EDT Office Visit Dermatology at [address] [address] Inderjit Vilchis MD [facility] GILBERTO [place] [address] 12/22/2023 10:00 AM EDT Office [place] [phone] Norm Joy PA [facility] [place] [address] 12/26/2023 11:45 AM EDT Appointment Hematology [place] [phone] 12/26/2023 12:45 PM EDT Office Visit Hematology [place] [address] Jean-Pierre Peña MD [facility] DR HEMATOLOGY [place] [address] Vicky Burnham, OUT[employer]OUND SALES ADVISOR [facility] [place] [address] 12/26/2023 2:30 PM EDT Appointment Hematology [place] [phone] 02/06/2024 10:00 AM EDT Appointment Hematology [place] [phone] 02/06/2024 12:45 PM EDT Office Visit Hematology [place] [phone] Jean-Pierre Peña MD [facility] DR HEMATOLOGY [place] [address] Vicky Burnham APRN [facility] [place] [address] 02/06/2024 2:00 PM EDT Appointment Hematology [place] [address] Health Maintenance Due Date Last Done Comments CT Colonography 1965 Colonoscopy 1965 Colorectal Cancer Screening 1965 FIT DNA 1965 FIT 1965 Sigmoidoscopy (10 year) with FIT yearly 1965 Sigmoidoscopy 1965 Hepatitis B vaccine (0-59 yrs) (1) 1984 Tdap adult 1984 Tetanus vaccine 1984 HPV test 1995 PAP Smear 1995 Breast Cancer Share Decision Needed 2005 Breast Cancer screening 2005 Zoster vaccine (1 of 2) 2015 Advance Directive 2020 Covid-19 Vaccine ( - 2022-2 4 season) 2023 Influenza (Flu) vaccine (1 o f 1 - Influenza standard series) 01/08/2024 Diabetes Screening (HgbA1C o r Glucose) 11/13/2026 11/14/2023, 10/24/2023, 10/04/2023, Additional history exists HIV screen Completed 07/31/2020 Hepatitis C Screening Completed 07/31/2020 Procedures Procedure Name Priority Date/Time Associated Diagnosis Comments DIFFERENTIAL, AUTOMATED STAT 11/14/19 7:34 AM EDT Medication management 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, unspecified lymph node region HEMOGRAM STAT 11/14/2023 7:34 AM EDT Medication management 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, unspecified lymph node region HC CBC,PLT & AUTO DIFF STAT 7:34 AM EDT Medication management 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, unspecified lymph node region COMPREHENSIVE METABOLIC PANEL (NON-FASTING) STAT 11/14/2023 7:34 AM EDT Medication management 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, unspecified lymph node region HC THYROID STIMULATING HORMONE, SERUM STAT 11/14/2023 7:34 AM EDT Medication management 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, unspecified lymph node region HC FREE THYROXINE (T4) STAT 7:34 AM EDT Medication management 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, unspecified lymph node region HC VENIPUNCTURE STAT 11/14/2023 7:34 AM EDT Medication management 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, unspecified lymph node region DIFFERENTIAL, AUTOMATED STAT 10/24/19 7:48 AM EDT Medication management 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, unspecified lymph node region HEMOGRAM STAT 10/24/2023 7:48 AM EDT Medication management 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, unspecified lymph node region HC LACTIC DEHYDROGENASE STAT 10/24/19 7:48 AM EDT Medication management 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, unspecified lymph node region HC FREE THYROXINE (T4) STAT 7:48 AM EDT Medication management 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, unspecified lymph node region HC THYROID STIMULATING HORMONE, SERUM STAT 10/24/2023 7:48 AM EDT Medication management 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, unspecified lymph node region COMPREHENSIVE METABOLIC PANEL (NON-FASTING) STAT 10/24/2023 7:48 AM EDT Medication management 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, unspecified lymph node region HC CBC,PLT & AUTO DIFF STAT 7:48 AM EDT Medication management 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, unspecified lymph node region DIFFERENTIAL, AUTOMATED STAT 10/04/19 10:34 AM EDT Medication management 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, unspecified lymph node region HEMOGRAM STAT 10/04/2023 10:34 AM EDT Medication management 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, unspecified lymph node region HC LACTIC DEHYDROGENASE STAT 10/04/19 10:34 AM EDT Medication management 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, unspecified lymph node region HC FREE THYROXINE (T4) STAT 10:34 AM EDT Medication management 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, unspecified lymph node region HC THYROID STIMULATING HORMONE, SERUM STAT 10/04/2023 10:34 AM EDT Medication management 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, unspecified lymph node region COMPREHENSIVE METABOLIC PANEL (NON-FASTING) STAT 10/04/2023 10:34 AM EDT Medication management 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, unspecified lymph node region HC CBC,PLT & AUTO DIFF STAT 10:34 AM EDT Medication management 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, unspecified lymph node region SPLIT THICKNESS SKIN SPLIT GRAFT,100SQ CM OR LESS, NECK Routine 09/28/2023 1:43 PM EDT ADJ.TISSUE TRANSFER, REARRANGEMENT, 10.1 TO 30 SQ.CM, SCALP Routine 09/28/2023 1:42 PM EDT Split Grft, Head, Fac, Hand, Feet <100Sqcm ([id number]) 09/28/2023 11:43 AM EDT melanoma scalp Adj Tiss Transfer Scalp, Extrem 10.1-30 ([id number]) 09/28/2023 11:43 AM EDT melanoma scalp RADICAL RESECTION TUMOR SCALP; >2 CM Routine 09/16/2023 2:41 PM EDT SPECIMEN TO PATHOLOGY Routine 09/16/2023 2:09 PM EDT SPECIMEN TO PATHOLOGY Routine 09/16/2023 1:25 PM EDT SPECIMEN TO PATHOLOGY Routine 09/16/2023 1:25 PM EDT SPECIMEN TO PATHOLOGY Routine 09/16/2023 1:25 PM EDT SURGICAL PATHOLOGY REPORT Routine 2023 12:50 PM EDT Bx/Remv, Lymph Node, Deep Cerv ([id number]) 09/16/2023 11:48 AM EDT melanoma Radical/Resect Of Tumor, Soft Tissue Face Or Scalp, 2Cm Or Greater ([id number]) 09/16/2023 11:48 AM EDT melanoma BIOPSY OR EXC OF LYMPH NODES; OPEN, DEEP CERVICAL NODES Routine 09/16/2023 10:47 AM EDT NM LYMPHOSCINTIGRAPHY WITH IMAGING MELANOMA OR SKIN CANCER Routine 09/16/2023 9:54 AM EDT Malignant melanoma of scalp DIFFERENTIAL, AUTOMATED STAT 09/12/19 7:45 AM EDT Medication management 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, unspecified lymph node region HEMOGRAM STAT 09/12/2023 7:45 AM EDT Medication management 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, unspecified lymph node region HC CBC,PLT & AUTO DIFF STAT 7:45 AM EDT Medication management 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, unspecified lymph node region COMPREHENSIVE METABOLIC PANEL (NON-FASTING) STAT 09/12/2023 7:45 AM EDT Medication management 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, unspecified lymph node region HC THYROID STIMULATING HORMONE, SERUM STAT 09/12/2023 7:45 AM EDT Medication management 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, unspecified lymph node region HC FREE THYROXINE (T4) STAT 7:45 AM EDT Medication management 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, unspecified lymph node region HC VENIPUNCTURE STAT 09/12/2023 7:45 AM EDT Medication management 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 WBC 7.1 4.0 - 9.5 x10(3)/[facility] LABORATORY RBC 3.90(L) 4.00 - 5.21 x10(6)/[facility] Hemoglobin 11.7 11.7 - 15.5 g/dL [facility] Hematocrit 35.8 35.7 - 45.8 % [facility] MCV 91.8 82.6 - 94.4 fL [facility] MCH 30.0 27.1 - 32.0 pg [facility] MCHC 32.7 31.7 - 35.0 g/dL [facility] Platelets 295 145 - 357 x10(3)/[facility] RDWSD 47.1(H) 37.0 - 46.0 fL [facility] RDWCV 14.0 11.5 - 14.1 % [facility] MPV 10.8 7.6 - 12.9 fL [facility] nRBC % Auto 0.0 % [facility] nRBC Abs Auto 0.000 0.000 - 0.000 x10(3)/[facility] Blood 11/14/2023 7:34 AM EDT 11/14/2023 7:45 AM EDT Narrative Resulting Agency Comment Spec In Lab Jean-Pierre Peña MD HEMATOLOGY ORDERABLE S Performing Organization Address City/State/[facility] Co de Phone Number [facility] [place] [address] * Differential, Automated (11/14/2023 7:34 AM EDT) Only the most recent of4 resultswithin the time period is included. Neutrophils % 66.6 % [facility] Neutr Abs (ANC) 4.70 1.70 - 6.10 x10(3)/[facility] Lymphocytes % 18.0 % [facility] Lymphocytes Abs 1.3 0.9 - 3.2 x10(3)/[facility] Monocytes % 9.6 % [facility] Monocyte Abs 0.7 0.3 - 0.9 x10(3)/[facility] Eosinophils % 4.7 % [facility] Eosinophils Abs 0.3 0.0 - 0.4 x10(3)/[facility] Basophils % 0.7 % [facility] Basophils Abs 0.0 0.0 - 0.1 x10(3)/[facility] Immature Gran % 0.40 % [facility] Comment: Immature granulocytes(IG's)percentage and absolute count will include metamyelocytes, myelocytes, and promyelocytes. Blood smears from CBCs yielding IG's will be scanned manually for concordance. If this scan disagrees with the automated IG or if promyelocytes are noted, a manual differential will be performed. Funmi Gran Abs 0.03 0.00 - 0.04 x10(3)/[facility] Blood 11/14/2023 7:34 AM EDT 11/14/2023 7:45 AM EDT Narrative Resulting Agency Comment Spec In Lab Jean-Pierre Peña MD HEMATOLOGY ORDERABLE S Performing Organization Address City/[facility]/ZIP Co de Phone Number [facility] [place] [address] * TSH (11/14/2023 7:34 AM EDT) Only the most recent of4 resultswithin the time period is included. TSH 0.97 0.27 - 4.20 mcIU/mL [facility] Comment: Reference Interval (mcIU/mL): Females: ??First Trimester: 0.23-3.88 ??Second Trimester: 0.22-3.90 ??Third Trimester: 0.44-4.66 Blood 11/14/2023 7:34 AM EDT 11/14/2023 7:45 AM EDT Narrative Resulting Agency Comment Spec In Lab Jean-Pierre Peña MD CHEMISTRY ORDERABLES Performing Organization Address City/[facility]/ZIP Co de Phone Number [facility] [place] [address] * T4, free (11/14/2023 7:34 AM EDT) Only the most recent of4 resultswithin the time period is included. Free T4 1.20 0.93 - 1.70 ng/dL [facility] Comment: Reference Interval (ng/dL): Females: ??First Trimester: 0.97-1.68 ??Second Trimester: 0.77-1.51 ??Third Trimester: 0.77-1.49 Blood 11/14/2023 7:34 AM EDT 11/14/2023 7:45 AM EDT Narrative Resulting Agency Comment Spec In Lab Jean-Pierre Peña MD CHEMISTRY ORDERABLES Performing Organization Address [facility] Co de Phone Number [facility] [place] [address] * Lactate Dehydrogenase (11/14/2023 7:34 AM EDT) Only the most recent of4 resultswithin the time period is included. LDH 165 110 - 220 unit/L [facility] Blood 11/14/2023 7:34 AM EDT 11/14/2023 7:45 AM EDT Narrative Resulting Agency Comment Spec In Lab Jean-Pierre Peña MD CHEMISTRY ORDERABLES Performing Organization Address [facility] Co de Phone Number [facility] [place] [address] * (ABNORMAL) Comprehensive metabolic panel (non-fasting) (11/14/2023 7:34 AM EDT) Only the most recent of4 resultswithin the time period is included. Glucose Lvl 103 65 - 199 mg/dL [facility] Comment:Diabetes: >=200 mg/d L plus symptoms BUN 24(H) 8 - 18 mg/dL [facility] Creatinine 0.92 0.70 - 1.20 mg/dL [facility] Sodium 142 135 - 145 mmol/L [facility] Potassium 4.1 3.5 - 5.0 mmol/L [facility] Comment: Please note: ??Patients with WBC >100,000 may have falsely elevated Potassium levels. ??For accurate Potassium quantification in these patients send serum separator tube (gold top) for subsequent determinations. ??Contact the Clinical Chemistry Laboratory if there are any questions. Chloride 109(H) 98 - 107 mmol/L [facility] CO2 24 22 - 31 mmol/L [facility] Anion Gap 9 5 - 15 mmol/L [facility] Calcium 9.3 8.5 - 10.5 mg/dL [facility] Total Protein 6.4 6.1 - 8.0 g/dL [facility] Albumin 3.8 3.2 - 5.2 g/dL [facility] AST 13 0 - 30 unit/L [facility] ALT 9 0 - 30 unit/L [facility] Alk Phos 75 35 - 105 unit/L [facility] Total Bilirubin 0.3 0.2 - 1.3 mg/dL [facility] Estimated GFR 72 >=60 mL/min/1. 73 m?? [facility] LABORATORY Comment: This patient's estimated GFR was calculated using the 2020 CKD-EPI equation. The estimated GFR can vary from the measured GFR by up to 30% in the absence of rapidly changing kidney function. Assessment of the estimated GFR is not appropriate when creatinine concentrations are rapidly changing. For clinical situations in which a more precise estimate of GFR is necessary, consider alternative methods of GFR estimation such as a 24-hour urine creatinine clearance. Assignment of CKD stage 1-5 for patients with an eGFR near the transition point between stages may be based on clinical assessment of muscle mass and symptoms in addition to eGFR. Blood 11/14/2023 7:34 AM EDT 11/14/2023 7:45 AM EDT Narrative Resulting Agency Comment Spec In Lab Jean-Pierre Peña MD CHEMISTRY ORDERABLES [facility] [place] [address] * Specimen to Pathology (09/16/2023 2:09 PM EDT) Only the most recent of4 resultswithin the time period is included. AP Specimen 09/16/2023 2:09 PM EDT 09/16/2023 2:09 PM EDT Narrative [facility] - 09/16/2023 2:09 PM EDT Specimen requisition ordered. ??Separate Pathology report to follow Castro Preciado MD PATHOLOGY/CYTOLOGY ORDERABLES [facility] [place] [id number] * Surgical Pathology Report (09/16/2023 12:50 PM EDT) FINAL DIAGNOSIS (AP) [id number] ? Location: [facility]; [facility]; The signing pathologist has (i) examined the relevant preparation(s) for the specimen(s) and (ii) rendered or confirmed the diagnosis(es). . ?Surgical Pathology DIAGNOSIS A - Right level 2, lymph node biopsy: - Two lymph nodes negative for metastatic melanoma, supported by Sox10/MelanA stains (0/2) B - Upper right neck contents, excision: - Fibrous adipose tissue, negative for metastatic melanoma supported by Sox10/MelanA stains C - Right level 5, lymph node biopsy: - Four small lymph nodes negative for metastatic melanoma, supported by Sox10/MelanA stains (0/4) D - Right scalp, skin excision: - Extensive residual melanoma, non-ulcerated, Breslow depth 4.6 mm, pT4a, with microsatellite metastases, lymphovascular invasion and perineural invasion (see synoptic report and discussion) - ??The examined inked margins are free of lesion Electronically signed by: ?Wilian ROBLES, PhD, [place] Verified: ??09/27/2023 10:12 ??Dermatopathologist Performed at: ??-[facility] Dept. of Pathology, [place] [address] Solvent Recoverer: Johnnie Stephens MD, AP, ??CLIA Certificate: [id number] SYNOPTIC Specimen ? Procedure: ??Excision; ??Lymphadenectomy, regional nodes - neck contents ? Specimen Laterality: ??Right Tumor ? Tumor Site: ??Skin of scalp and neck - Right scalp ? Histologic Type: ??Melanoma, not otherwise classified ? Maximum Tumor (Breslow) Thickness (Millimeters): ??4.6 mm ? Macroscopic Satellite Nodule(s): ??Cannot be determined ? Ulceration: ??Not identified ? Anatomic (Sinan) Level: ??V (Melanoma invades subcutis) ? Mitotic Rate: ??6 mitoses per mm2 ? Microsatellite(s): ??Present ? Lymphovascular Invasion: ??Present ? Neurotropism: ??Present ? Tumor-Infiltrating Lymphocytes: ??Not identified ? Tumor Regression: ??Present, involving less than 75% of lesion ? Margins ?Margin Status for Invasive Melanoma: ??All margins negative for invasive ? melanoma ?Margin Status for Melanoma in situ: ??All margins negative for melanoma in ? situ ? Regional Lymph Nodes ?Regional Lymph Node Status: ??All regional lymph nodes negative for tumor ?Total Number of Lymph Nodes Examined: ??6 ?Number of Bigelow Nodes Examined: ??0 ? Pathologic Stage Classification (pTNM, AJCC 8th Edition) ?Pathologic Stage Classification: ??Classification assigned in this report ? includes information from a prior procedure - yes ?pT Category: ??pT4a . SYNOPTIC ?pN Category: ??pN1c Best Tumor Blocks for Future Studies ? Tumor Block(s): ??D10,12,14 ? Normal Block(s): ??D3 ? [facility] 2021 Q1 Release DISCUSSION Scanned images of the patient's prior biopsy ([id number]) have been reviewed. There is extensive residual melanoma in the re-excision specimen (D). Breslow tumor depth is 4.6 mm. Perineural invasion(D12,D16), ?Lymphovascular invasion (D16) ??and regression (D18,20,22,24) are identified. Multiple foci of microsatellite metastasis are seen in the dermis and subcutis(D7,D8,D11). ADDITIONAL STUDIES Immunohistochemistry Studies: Formalin-fixed, paraffin-embedded tissue sections are studied using the polymer technique with appropriate positive and negative controls. ?These IHC studies provide the pathologist with adjunctive diagnostic information. Antibody specificity has been verified by testing antibodies on a series of in-house tissues with known immunohistochemical performance characteristics. The clinical interpretation of any antibody positive staining or its absence is evaluated within the context of clinical presentation, morphology, histopathological criteria and other diagnostic tests. Block ? Antibody ?Result (Positive/Negative) A1 ? Sox10/MelanA ? Negative for melanoma B1 ?Sox10/MelanA ? Negative for melanoma C1 ?Sox10/MelanA ? Negative for melanoma D14 ?Sox10 ?Positive in tumor cells D14 ?MelanA ? Positive in tumor cells D14 ?PRAME red ?Focal weakly positive in tumor cells D16 ?CD31/MelanA ?Highlights lymphovascular invasion SPECIMEN(S) SUBMITTED A - RIGHT level 2, biopsy (1) B - Upper RIGHT neck contents, excision (1) C - RIGHT level 5, biopsy (1) D - Radical excision of melanoma, RIGHT scalp, orientation per card, excision (1) CLINICAL INFORMATION Melanoma SPECIMEN PROCESSING A - Labeled/Fixative: Right level 2, fresh. Quantity/Size: Single, 1.7 x 0.7 x 0.3 cm. Tissue Description: Cauterized pink-yellow soft tissue. Sections/Processing: Entirely submitted in 1 cassette labeled A1. B - Labeled/Fixative: Upper right neck contents, fresh. Quantity/Size: Single, 1.2 x 0.7 x 0.3 cm. Tissue Description: Cauterized white-yellow fibrofatty soft tissue. Sections/Processing: Entirely submitted in 1 cassette labeled B1. C - Labeled/Fixative: Right level 5, fresh. Quantity/Size: Single, 1.0 x 1.0 x 0.3 cm. Tissue Description: Cauterized white-yellow fibrofatty soft tissue. . SPECIMEN PROCESSING Sections/Processing: Entirely submitted in 1 cassette labeled C1. D - Labeled/Fixative: Radical excision of melanoma, right scalp orientation per card, fresh. Quantity/Size: ??Single, 6.6 x 4.7 cm, excised to a depth of 1.0 cm. Tissue Description: Ovoid excision of moran-pink hair-bearing skin received sutured to a card showing the 12:00, 3:00, 6:00, and 9:00 margins (see photograph). ??Centrally, there is a 2.7 x 2.2 cm dark brown patch to nodular, crusted and friable pink lesion. Grossly, the lesion comes to within 1.4 cm of the 12:00 margin, 2.0 cm of the 3:00 margin, 1.8 cm of the 6:00 margin, and 2.0 cm of the 9:00 margin. Inkin-6-9 o 'clock is marked black. ??9-12-3 o'clock is marked blue. Sections/Processing: Serially sectioned and entirely submitted in 30 cassettes as follows: ?D1: ??3:00 tip ?D2: ??9:00 tip ?D3-D30: ??Body sequentially submitted from 3:00 to 9:00 (bisected slices in blocks ? D5-D8 and D25 through D28; trisected slices in blocks D9/D10 through D23/D24) ??ajw 09/27/2023 10:12 AM EDT [facility] SPECIMEN FROM SKIN / Unknown 09/16/2023 12:50 PM EDT 09/16/2023 12:50 PM EDT LYMPH NODE SPECIMEN / Unknown 09/16/2023 12:50 PM EDT 09/16/2023 12:50 PM EDT LYMPH NODE SPECIMEN / Unknown 09/16/2023 12:50 PM EDT 09/16/2023 12:50 PM EDT SPECIMEN FROM SKIN / Unknown 09/16/2023 12:50 PM EDT 09/16/2023 12:50 PM EDT Castro Preciado MD PATHOLOGY/CYTOLOGY ORDERABLES [facility] [place] [address] * NM Lymphoscintigraphy w Imaging Melanoma or Skin Cancer (09/16/2023 9:54 AM EDT) WORKSTATION ID [id number] DH RAD Anatomical Region Laterality Modality Nuclear Medicine Impressions 09/16/2023 12:37 PM EDT Bigelow lymph nodes in the right levels 2 and 5 regions as above. Thank you for letting us participate in the care of this patient. ??If you are a health care provider and have any questions regarding this report, please contact the number below. ??For patients who have questions please contact the health rn palliative care that requested your imaging first. ? Narrative 09/16/2023 12:37 PM EDT EXAMINATION: NM LYMPHOSCINTIGRAPHY W IMAGING MELANOMA OR SKIN CANCER CLINICAL HISTORY: melanoma of scalp vertex sentinel node mapping, please perform CT correlation C43.4, Malignant melanoma of scalp and neck TECHNIQUE: Technetium-99m filtered tilmanocept (Lymphoseek) was administered intradermally in divided doses totaling 1.0 mCi at the site of the lesion in the right occipital scalp. Images of the head and neck were subsequently obtained in the projections approximately 30-60 minutes post injection. COMPARISON: None FINDINGS: Injection sites in the right occipital scalp. Small foci of seth tracer deposition in the right level 2 (axial image 22) and in the right level 5 (axial image 28). Procedure Note Esa Sprague MD - 09/16/2023 EXAMINATION: NM LYMPHOSCINTIGRAPHY W IMAGING MELANOMA OR SKIN CANCER CLINICAL HISTORY: melanoma of scalp vertex sentinel node mapping, please perform CT correlation C43.4, Malignant melanoma of scalp and neck TECHNIQUE: Technetium-99m filtered tilmanocept (Lymphoseek) was administeredintradermally in divided doses totaling 1.0 mCi at the site of the lesion in the right occipital scalp. Images of the head and neck were subsequently obtained inthe projections approximately 30-60 minutes post injection. COMPARISON: None FINDINGS: Injection sites in the right occipital scalp. Small foci of seth tracer deposition in the right level 2 (axial image22) and in the right level 5 (axial image 28). IMPRESSION Bigelow lymph nodes in the right levels 2 and 5 regions as above. Thank you for letting us participate in the care of this patient. If youare a health care provider and have any questions regarding this report,please contact the number below. For patients who have questions please contactthe health rn palliative care that requested your imaging first. Castro J Ozzy MD IMG NM ORDERABLES * Hepatitis C Antibody (07/31/2020 4:37 PM EDT) Hepatitis C Ab Negative Negative [facility] Blood specimen (specimen) 07/31/2020 4:37 PM EDT 07/31/2020 4:50 PM EDT Narrative Resulting Agency Comment Spec In Lab Seamus Rosario MD IMMUNOLOGY ORDERABLE S [facility] [place] [address] * HIV Screen, 4th Generation ([facility] [place]/CGP/APD/NLH) (07/31/2020 4:37 PM EDT) HIV-1/2 Ab and Ag Negative Negative [facility] Comment: This 4th Generation HIV test screens for the presence of the HIV-1 p24 antigen as well as antibodies reactive against HIV-1 and HIV-2. A negative screen does not rule out an acute HIV infection. If acute HIV infection is suspected, testing should be repeated in 2 - 3 weeks or HIV nucleic acid testing performed. Blood specimen (specimen) 07/31/2020 4:37 PM EDT 07/31/2020 4:50 PM EDT Narrative Resulting Agency Comment Spec In Lab Seamus Rosario MD IMMUNOLOGY ORDERABLE S [facility] [place] [address] from Last 3 Months or Most Recently Relevant to Health Maintenance Advance Directives * Full Code (Latest Code Status on File) Date Activated Date Inactivated Comments 09/28/2023 2:17 PM Question Answer Comments Does patient have capacity to make decision: Yes Care Teams Aircraft Dispatcher Relationship Specialty Start Date End Date Taylor Bryant APRN [address] [place] [address] PCP - General 03/31/10
--- OUTSIDE RECORDS SUMMARY | 2023-12-05 02:26 | XMS_ITS | Encounter Summary ---
Author Organization [facility] Address [facility] [place] [address] Care Team Providers Care Deputy Chief Sheriff Name Role Phone Taylor Bryant APRN Primary Care Provider [phone] Reason for Visit * Reason Comments Follow-up Things are good. She is hoping that the hemanth and other things off her head. The skin draft area is doing good. Encounter Details Date Type Department Care Team ([facility] Contact Info) Description 10/13/2023 2:30 PM EDT Office Visit [place] [address] Norm Joy PA [facility] [place] [address] Malignant melanoma of scalp Social History Tobacco Use Types Packs/Day Years Used Date Smoking Tobacco: Former Smokeless Tobacco: Never Comments:quit at age 35 Alcohol Use Standard Drinks/Week Comments Yes 0 (1 standard drink = 0.6 oz pur e alcohol) social gatherings [facility] Utilities Answer Date Recorded In the past 12 months has e electric, gas, oil, or water [employer] threatened to shut off services in your [...] a senior living (including now)? No 07/24/2023 DH IPV Inpatient [...] on file documented as of this encounter Last Filed Vital Signs Vital Sign Reading Time Taken Comments Blood Pressure - - Pulse - - Temperature - - Respiratory Rate - - Oxygen Saturation - - Inhaled Oxygen Concentration - - Weight 70.3 kg (155 lb) 10/13/2023 2:13 PM EDT Height 162.6 cm (5' 4) 10/13/2023 2:13 PM EDT Body Mass Index 26.61 10/13/2023 2:13 PM EDT documented in this encounter Progress Notes * Norm Joy PA - 10/13/2023 2:30 PM EDT [facility] OTOLARYNGOLOGY FOLLOW UP NOTE Keeley Gutierrez is a 58 y.o. female followed for: melanoma of scalp. HPI SHe is seen in follow up of her R occipital melanoma. Lesion on scalp biopsy on 06/21/2023 was consistent with malignant melanoma,1.5 mm depth, T2a. PET/CT on 07/11/2023 showed bilateral hypermetabolic cervical lymph nodes concerning for metastasis, no obvious distant metastasis. Patient was referred to the melanoma clinic on 07/25/2023 to discuss treatment options. 08/01/2023 brain MRI showed no mets. 08/09/23 right cervical chain lymph node biopsy was negative for malignancy. She first noticed scalp itchiness last summer and her sister noticed a lesion on the back of her head on June 12. The lesion not painful, except for when she itches it. It does not bleed or drain. She states the lesions have become approximately 50% more prominent in vertical height over the last few weeks. She reports consistent unprotected sun exposure throughout her life. She reports a chronic history of small lesions on her head. Taken to the OR for staged resection/SLNB 09/16/23 and reconstruction using rearrangement and STSG Rthigh 09/28/23. Final pathology from 09.16.23 surgery: A - Right level 2, lymph node [...] invasion (see synoptic report and discussion) - The examined inked margins are free of lesion SYNOPTIC Specimen Procedure: Excision; Lymphadenectomy, regional nodes - neck contents Specimen Laterality: Right Tumor Tumor Site: Skin of scalp and neck - Right scalp Histologic Type: Melanoma, not otherwise classified Maximum Tumor (Breslow) Thickness (Millimeters): 4.6 mm Macroscopic Satellite Nodule(s): Cannot be determined Ulceration: Not identified Anatomic (Sinan) Level: V (Melanoma invades subcutis) Mitotic Rate: 6 mitoses per mm2 Microsatellite(s): Present Lymphovascular Invasion: Present Neurotropism: Present Tumor-Infiltrating Lymphocytes: Not identified Tumor Regression: Present, involving less than 75% of lesion Margins Margin Status for Invasive Melanoma: All margins negative for invasive melanoma Margin Status for Melanoma in situ: All margins negative for melanoma in situ Regional Lymph Nodes Regional Lymph Node Status: All regional lymph nodes negative for tumor Total Number of Lymph Nodes Examined: 6 Number of [place] Nodes Examined: 0 Pathologic Stage Classification (pTNM, AJCC 8th Edition) Pathologic Stage Classification: Classification assigned in this report includes information from a prior procedure - yes pT Category: pT4a At her hospital check on 10/06/23, her pain was well managed, she had no bleeding from her surgical sites; though her allevyn was saturated. She returns today to have the scalp sutures removed. Her case was presented to the Melanoma Tumor Board with the following recommendation: She is to see Dr. Peña on 10/24/23. Stage 3C T4a N1c melanoma, given seen clinical response with neoadjuvant pembrolizumab, will continue adjuvant pembrollizumab instead of switching to adjuvant dabrafenib and trametinib. New issues since last visit: No new difficulties. No concerns. Minimal pain. Some minor bleeding when sleeping--spot or two. No new swelling. No fevers. Breathing well. Swallowing well. 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 multivit-min/vit C/herb no.124 (AIRBORNE GUMMY ORAL) Take by mouth. TURMERIC ORAL Take by mouth. elderberry fruit 350 mg Capsule Take by mouth. cholecalciferol, Vitamin D3, 50 mcg (2,000 unit) Capsule Take by mouth. FLUoxetine (PROZAC) 40 mg Capsule Take 40 mg by mouth daily. No current facility-administered medications on file prior to visit. ALLERGIES Allergies Allergen Reactions Codeine Phosphate CIS - vomit ROS 8 point Review of Systems was normal except for pertinent positives and negatives included in the History of Present Illness. PHYSICAL EXAMINATION Physical Examination: VITALS - There were no vitals taken for this visit. GENERAL - Well dressed and well nourished. - Breathing comfortably without stridor. - No acute distress. FACE - Full and symmetric facial movement. - No dysmorphic facial features. EYES - Periocular structures and conjunctiva healthy without lesions. - Pupils are equal, round. - Extraocular movement is full and intact. - No evidence of nystagmus. NECK - Right below ear neck incision well-approximated; clean, dry, flat. - Right posterior scalp excision site with bolster in place with absorbable sutures; bolster removed showing a skin graft with good take; no evidence of infection. [place] in place along the adjacentincision; without notable crusting or erythema. - Thyroid gland without masses or asymmetry. - Trachea midline without deviation.. NEURO - Cranial nerves II-XII grossly intact and symmetric. - Responds appropriately to questions. PSYCHE - Normal mood and affect. LOWER EXTREMITIES - Right thigh allevyn site appears healthy, without evidence of infection. PROCEDURES Procedure: Bolster suture removal The patient is now 15 days out from surgery, and therefore it was deemed appropriate to remove them. Using forceps and fine suture scissors, the bolster incision sutures were removed without difficulty. The patient tolerated the procedure well. Procedure: Staple removal The patient is now 15 days out from surgery, and therefore it was appropriate to remove them. Usinga stapler remover, the neck incision hemanth were removed without difficulty. The patient toleratedthe procedure well. REVIEW OF IMAGES/STUDIES ASSESSMENT/RECOMMENDATIONS - Recovering well from her procedure, with no significant postoperative complications since her initial hospital check. - Discussed incision care, including allowing the area to get wet, but not scrubbing or submerging in water; changing the surgical site xeroform and gauze dressing daily; applying aquaphor and gauze to her leg donor site at least daily for 2 more weeks; her return to clinic in 10-14 days for reassessment; and symptoms to monitor for, including swelling, bleeding or drainage, increasing pain, fevers, or any other concerning symptom. - The patient expressed understanding of these points and agreement with the plan, and all questions that were asked were answered to the patient's satisfaction. Plan: > Surgical site care as above. > Return to clinic in 10-14 days. > Patient should call if their symptoms worsen, if new concerning symptoms arise, or if they have any questions or concerns regarding their treatment. I appreciate the opportunity to be involved in Ms. Gutierrez's care. Norm Joy PA-C [place], [place] [address] Office 10/13/2023 documented in this encounter Plan of Treatment Upcoming Encounters Date Type Department Care Team (Late st Contact Info) Description 12/20/2023 2:15 PM EDT Office Visit Dermatology at [address] [address] Inderjit Vilchis MD [facility] DR GILBERTO [place] [address] 12/22/2023 10:00 AM EDT Office Visit [place] [address] Norm Joy PA [facility] [place] [address] 12/26/2023 11:45 AM EDT Appointment Hematology [place] [address] 12/26/2023 12:45 PM EDT Office Visit Hematology [place] [address] Jean-Pierre Peña MD [facility] DR [place] [address] Vicky Burnham APRN [facility] [place] [address] 12/26/2023 2:30 PM EDT Appointment Hematology [place] [address] 02/06/2024 10:00 AM EDT Appointment Hematology [place] [address] 02/06/2024 12:45 PM EDT Office Visit Hematology [place] [address] Jean-Pierre Peña MD [facility] DR [place] [address] Vicky Burnham APRN [facility] [place] [address] 02/06/2024 2:00 PM EDT Appointment Hematology [place] [address] documented as of this encounter Visit Diagnoses Diagnosis Malignant melanoma of scalp Malignant melanoma of skin of scalp and neck documented in this encounter Care Teams Deputy Chief Sheriff Relationship Specialty Start Date End Date Taylor Bryant APRN [address] [place] [id number] PCP - General 03/31/10 documented as of this encounter
--- OUTSIDE RECORDS SUMMARY | 2023-12-05 02:26 | XMS_ITS | Encounter Summary ---
Author Organization [facility] Address [facility] [place] [address] Care Team Providers Care Power Barker Name Role Phone Taylor Bryant APRN Primary Care Provider [phone] [phone] Encounter Details Date Type Department Care Team (Latest Contact Info) Description 10/06/2023 Travel Social History Tobacco Use Types Packs/Day Years Used Date Smoking Tobacco: Former Smokeless Tobacco: Never Comments:quit at age 35 Alcohol Use Standard Drinks/Week Comments Yes 0 (1 standard drink = 0.6 oz pur e alcohol) social gatherings [facility] Utilities Answer Date Recorded In the past [...] 2:15 PM EDT Office Visit Dermatology at [address] [address] Inderjit Vilchis MD [facility] DR GILBERTO [place] [address] 12/22/2023 10:00 AM EDT Office Visit [place] [phone] Norm Joy PA [facility] [place] [address] 12/26/2023 11:45 AM EDT Appointment Hematology [place] [phone] 12/26/2023 12:45 PM EDT Office Visit Hematology [place] [phone] Jean-Pierre Peña MD [facility] HEMATOLOGY AND ONCOLOGY [place], [place] [id number] Vicky Burnham APRN [facility] [place] [address] 12/26/2023 2:30 PM EDT Appointment Hematology [place] [phone] 02/06/2024 10:00 AM EDT Appointment Hematology and Oncology at [place] [phone] 02/06/2024 12:45 PM EDT Office Visit Hematology and Oncology at [place] [phone] Jean-Pierre Peña MD [facility] DR HEMATOLOGY [place] [address] Vicky Burnham APRN [facility] [place] [address] 02/06/2024 2:00 PM EDT Appointment Hematology and Oncology at [place] [phone] documented as of this encounter Visit Diagnoses Not on filedocumented in this encounter Care Teams Power Barker Relationship Specialty Start Date End Date Taylor Bryant APRN [address] [place] [address] PCP - General 03/31/10 documented as of this encounter
--- OUTSIDE RECORDS SUMMARY | 2023-12-05 02:26 | XMS_ITS | Encounter Summary ---
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, unspecified lymph node region Procedures [id number] pembrolizumab (Keytruda) Jean-Pierre Peña MD [facility] [address] [place] [address] Jean-Pierre Peña MD [facility] [address] [place] [address] Referral ID Status Reason Start Date Expiration Date V isits Requested Visits Authorized [id number] Pending Review 07/25/2023 07/24/2024 99 99 Encounter Details Date Type Department Care Team (Latest Contact Info) Description 11/14/2023 7:19 AM EDT - 11/14/2023 11:59 PM EDT Hospital Encounter [place]ematology [place] [address] Medication management; Malignant melanoma of scalp; 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 No 07/24/2023 DH IPV Inpatient [...] on file documented as of this encounter Medications at Time of Discharge Medication Sig Dispensed Refills Start Date End Date ascorbic acid, Vitamin C, (Vitamin C) 500 mg tablet Take 500 mg by mouth daily. multivit-min/vit C/herb no.124 (AIRBORNE GUMMY ORAL) Take by mouth. TURMERIC ORAL Take by mouth. elderberry fruit 350 mg Capsule Take by mouth. cholecalciferol, Vitamin D3, 50 mcg (2,000 unit) Capsule Take by mouth. FLUoxetine (PROZAC) 40 mg Capsule Take 40 mg by mouth daily. documented as of this encounter Progress Notes * Hailey Redmond RN - 11/14/2023 10:52 AM EDT Patient Name: Keeley Gutierrez Patient Age: 58 y.o. Birthdate: 1965 Admit date: 11/14/2023 Attending Physician: No att. providers found Keeley Gutierrez, 58 y.o. female with diagnosis of 1. Medication management 2. Malignant melanoma of scalp 3. 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 PROTOCOL: n/a CYCLE: 5 DAY: 1 S: Patient offers no complaints at this time. O: Chemotherapy orders independently verified for correct drug name, route and dosage per patient'sheight, weight and BSA by Hailey Redmond RN and a [facility] pharmacist. Chemotherapy administered per protocol. REACTIONS (DESCRIPTION, TIME, INTERVENTION AND EFFECTIVENESS) none A: Patient tolerated treatment well. Keeley Gutierrez confirms that all questions and concerns have been addressed prior to departure. P: Return to for care as scheduled. documented in this encounter Plan of Treatment Upcoming Encounters Date Type Department Care Team (Late st Contact Info) Description 12/20/2023 2:15 PM EDT Office Visit Dermatology at [place] [address] [place] [address] Inderjit Vilchis MD [facility] DR GILBERTO [place] [address] 12/22/2023 10:00 AM EDT Office [place] [phone] Norm Joy PA [facility] [place] [address] 12/26/2023 11:45 AM EDT Appointment Hematology and Oncology at [place] [address] 12/26/2023 12:45 PM EDT Office Visit Hematology and Oncology at [place] [address] Jean-Pierre Peña MD [facility] [place] [address] Vicky Burnham COMPUTER OPERATIONS MANAGER [facility] [place] [address] 12/26/2023 2:30 PM EDT Appointment Hematology and Oncology at [place] [address] 02/06/2024 10:00 AM EDT Appointment Hematology and Oncology at [place] [address] 02/06/2024 12:45 PM EDT Office Visit Hematology and Oncology at [place] [address] Jean-Pierre Peña MD [facility] [place] [address] Vicky Burnham COMPUTER OPERATIONS MANAGER [facility] [place] [address] 02/06/2024 2:00 PM EDT Appointment Hematology and Oncology at [place] [address] documented as of this encounter Results * Lactate Dehydrogenase (11/14/2023 7:34 AM EDT) [facility] Signature LDH 165 110 - 220 unit/L [facility] Blood 11/14/2023 7:34 AM EDT 11/14/2023 7:45 AM EDT Narrative Resulting Agency Comment Spec In Lab Jean-Pierre Peañ MD CHEMISTRY ORDERABLES Performing Organization Address City/[facility] Co de Phone Number [facility] [place] [address] * T4, free (11/14/2023 7:34 AM EDT) Free T4 1.20 0.93 - 1.70 ng/dL [facility] Comment: Reference Interval (ng/dL): Females: ??First Trimester: 0.97-1.68 ??Second Trimester: 0.77-1.51 ??Third Trimester: 0.77-1.49 Blood 11/14/2023 7:34 AM EDT 11/14/2023 7:45 AM EDT Narrative Resulting Agency Comment Spec In Lab Jean-Pierre Peña MD CHEMISTRY ORDERABLES Performing Organization Address [facility] Co de Phone Number [facility] [place] [address] * TSH (11/14/2023 7:34 AM EDT) Pathologist [facility] TSH 0.97 0.27 - 4.20 mcIU/mL [facility] Comment: Reference Interval (mcIU/mL): Females: ??First Trimester: 0.23-3.88 ??Second Trimester: 0.22-3.90 ??Third Trimester: 0.44-4.66 Blood 11/14/2023 7:34 AM EDT 11/14/2023 7:45 AM EDT Narrative Resulting Agency Comment Spec In Lab Jean-Pierre Peña MD CHEMISTRY ORDERABLES Performing Organization Address City/[facility]/ZIP Co de Phone Number [facility] [place] [address] * (ABNORMAL) Comprehensive metabolic panel (non-fasting) (11/14/2023 7:34 AM EDT) Glucose Lvl 103 65 - 199 mg/dL [facility] Comment:Diabetes: >=200 mg/d L plus symptoms BUN 24(H) 8 - 18 mg/dL [facility] Creatinine 0.92 0.70 - 1.20 mg/dL [facility] Sodium 142 135 - 145 mmol/L [facility] Potassium 4.1 3.5 - 5.0 mmol/L [facility] Comment: Please note: ??Patients with WBC >100,000 may have falsely elevated Potassium levels. ??For accurate Potassium quantification in these patients send serum separator tube (gold top) for subsequent determinations. ??Contact the Clinical Chemistry Laboratory if there are any questions. Chloride 109(H) 98 - 107 mmol/L [facility] CO2 24 22 - 31 mmol/L [facility] Anion Gap 9 5 - 15 mmol/L [facility] Calcium 9.3 8.5 - 10.5 mg/dL [facility] Total Protein 6.4 6.1 - 8.0 g/dL [facility] Albumin 3.8 3.2 - 5.2 g/dL [facility] AST 13 0 - 30 unit/L [facility] ALT 9 0 - 30 unit/L [facility] Alk Phos 75 35 - 105 unit/L [facility] Total Bilirubin 0.3 0.2 - 1.3 mg/dL [facility] Estimated GFR 72 >=60 mL/min/1. 73 m?? 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 Is this drug being given as an outpatient? Yes New Bag 11/14/2023 10:38 AM EDT 400 mg 23 2 mL/hr documented in this encounter Care Teams Rubber Extrusion Machine Operator Relationship Specialty Start Date End Date Taylor Bryant APRN [address] [place] [address] PCP - General 03/31/10 documented as of this encounter
--- OUTSIDE RECORDS SUMMARY | 2023-12-05 02:26 | XMS_ITS | Encounter Summary ---
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 No 07/24/2023 IPV Inpatient Questions [...] mouth daily. documented as of this encounter Plan of Treatment Upcoming Encounters Date Type Department Care Team (Late st Contact Info) Description 12/20/2023 2:15 PM EDT Office Visit Dermatology at [facility] [address] [place] [address] Inderjit Vilchis MD [facility] DR GILBERT[place] [address] 12/22/2023 10:00 AM EDT Office Visit Otolaryngology at [place] [phone] Norm Joy PA [facility] [place] [address] 12/26/2023 11:45 AM EDT Appointment Hematology and Oncology at [place] [address] 12/26/2023 12:45 PM EDT Office Visit Hematology and Oncology at [place] [address] Jean-Pierre Peña MD [facility] DR HEMATOLOGY [place] [address] Vicky Bunrham APRN [facility] [place] [address] 12/26/2023 2:30 PM EDT Appointment Hematology and Oncology at [place] [phone] 02/06/2024 10:00 AM EDT Appointment Hematology and Oncology at [place] [address] 02/06/2024 12:45 PM EDT Office Visit Hematology and Oncology at [place] [address] Jean-Pierre Peña MD [facility] DR HEMATOLOGY [place] [address] Vicky Burnham APRN [facility] [place] [address] 02/06/2024 2:00 PM EDT Appointment Hematology and Oncology at [place] [address] documented as of this encounter Procedures Procedure Name Priority Date/Time Associated Diagnosis Comments HEMOGRAM STAT 10/04/2023 10:34 AM EDT Medication management 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, unspecified lymph node region DIFFERENTIAL, AUTOMATED STAT 10/04/2023 10:34 AM EDT Medication management [...] lymph node region HC LACTIC DEHYDROGENASE STAT 10/04/2023 10:34 AM EDT Medication management 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, unspecified lymph node region COMPREHENSIVE METABOLIC PANEL (NON-FASTING) STAT 10/04/2023 10:34 AM EDT Medication management 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, unspecified lymph node region documented in this encounter Results * (ABNORMAL) Differential, Automated (10/04/2023 10:34 AM EDT) Neutrophils % 68.3 % [facility] Neutr Abs (ANC) 5.87 1.70 - 6.10 x10(3)/mc L [facility] Lymphocytes % 17.5 % [facility] Lymphocytes Abs 1.5 0.9 - 3.2 x10(3)/mc L [facility] Monocytes % 7.5 % [facility] Monocyte Abs 0.6 0.3 - 0.9 x10(3)/mc L [facility] Eosinophils % 5.6 % [facility] Eosinophils Abs 0.5(H) 0.0 - 0.4 x10(3)/[facility] Basophils % 0.9 % [facility] Basophils Abs 0.1 0.0 - 0.1 x10(3)/[facility] Immature Gran % 0.20 % [facility] Comment: Immature granulocytes(IG's)percentage and absolute count will include metamyelocytes, myelocytes, and promyelocytes. Blood smears from CBCs yielding IG's will be scanned manually for concordance. If this scan disagrees with the automated IG or if promyelocytes are noted, a manual differential will be performed. Funmi Gran Abs 0.02 0.00 - 0.04 x10(3)/[facility] Blood 10/04/2023 10:3 4 AM EDT 10/04/2023 10:47 AM EDT Narrative Resulting Agency Comment Spec In Lab Jean-Pierre Peña MD HEMATOLOGY ORDERABLE S [facility] [place] [address] * (ABNORMAL) Hemogram (10/04/2023 10:34 AM EDT) WBC 8.6 4.0 - 9.5 x10(3)/[facility] RBC 4.02 4.00 - 5.21 x10(6)/[facility] Hemoglobin 12.1 11.7 - 15.5 g/dL [facility] Hematocrit 36.8 35.7 - 45.8 % [facility] MCV 91.5 82.6 - 94.4 fL [facility] MCH 30.1 27.1 - 32.0 pg [facility] MCHC 32.9 31.7 - 35.0 g/dL [facility] Platelets 577(H) 145 - 357 x10(3)/[facility] RDWSD 47.8(H) 37.0 - 46.0 fL [facility] RDWCV 14.2(H) 11.5 - 14.1 % [facility] MPV 10.0 7.6 - 12.9 fL [facility] nRBC % Auto 0.0 % [facility] nRBC Abs Auto 0.000 0.000 - 0.000 x10(3)/mcL [facility] Blood 10/04/2023 10:3 4 AM EDT 10/04/2023 10:47 AM EDT Narrative Resulting Agency Comment Spec In Lab Jean-Pierre Peña MD HEMATOLOGY ORDERABLE S Performing Organization Address City/[facility]/ZIP Co de Phone Number [facility] [place] [address] * Lactate Dehydrogenase (10/04/2023 10:34 AM EDT) LDH 205 110 - 220 unit/L [facility] Blood 10/04/2023 10:3 4 AM EDT 10/04/2023 10:47 AM EDT Narrative Resulting Agency Comment Spec In Lab Jean-Pierre Peña MD CHEMISTRY ORDERABLES Performing Organization Address City/[facility]/ZIP Co de Phone Number [facility] [place] [address] * T4, free (10/04/2023 10:34 AM EDT) Free T4 1.30 0.93 - 1.70 ng/dL [facility] Comment: Reference Interval (ng/dL): Females: ??First Trimester: 0.97-1.68 ??Second Trimester: 0.77-1.51 ??Third Trimester: 0.77-1.49 Blood 10/04/2023 10:3 4 AM EDT 10/04/2023 10:47 AM EDT Narrative Resulting Agency Comment Spec In Lab Jean-Pierre Peña MD CHEMISTRY ORDERABLES Performing Organization Address City/[facility]/ZIP Co de Phone Number [facility] [place] [address] * TSH (10/04/2023 10:34 AM EDT) TSH 0.52 0.27 - 4.20 mcIU/mL [facility] Comment: Reference Interval (mcIU/mL): Females: ??First Trimester: 0.23-3.88 ??Second Trimester: 0.22-3.90 ??Third Trimester: 0.44-4.66 Blood 10/04/2023 10:3 4 AM EDT 10/04/2023 10:47 AM EDT Narrative Resulting Agency Comment Spec In Lab Jean-Pierre Peña MD CHEMISTRY ORDERABLES Performing Organization Address [facility] Co de Phone Number [facility] [place] [address] * (ABNORMAL) Comprehensive metabolic panel (non-fasting) (10/04/2023 10:34 AM EDT) Pathologist [facility] Glucose Lvl 114 65 - 199 mg/dL [facility] Comment:Diabetes: >=200 mg/d L plus symptoms BUN 23(H) 8 - 18 mg/dL [facility] Creatinine 0.76 0.70 - 1.20 mg/dL [facility] Sodium 140 135 - 145 mmol/L [facility] Potassium 4.2 3.5 - 5.0 mmol/L [facility] Comment: Please note: ??Patients with WBC >100,000 may have falsely elevated Potassium levels. ??For accurate Potassium quantification in these patients send serum separator tube (gold top) for subsequent determinations. ??Contact the Clinical Chemistry Laboratory if there are any questions. Chloride 106 98 - 107 mmol/L [facility] CO2 24 22 - 31 mmol/L [facility] Anion Gap 10 5 - 15 mmol/L [facility] Calcium 9.6 8.5 - 10.5 mg/dL [facility] Total Protein 7.0 6.1 - 8.0 g/dL [facility] Albumin 4.2 3.2 - 5.2 g/dL [facility] AST 27 0 - 30 unit/L [facility] ALT 46(H) 0 - 30 unit/L [facility] Alk Phos 167(H) 35 - 105 unit/L [facility] Total Bilirubin 0.4 0.2 - 1.3 mg/dL [facility] Estimated GFR 91 >=60 mL/min/1. 73 m?? [facility] Comment: This patient's estimated GFR [...] and symptoms in addition to eGFR. 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
--- OUTSIDE RECORDS SUMMARY | 2023-12-05 02:26 | XMS_ITS | Encounter Summary ---
Author Organization [facility] Address [facility] [place] [address] Care Team Providers Care Igniter Capper Name Role Phone Taylor Bryant ZARA Primary Care Provider [phone] Reason for Visit * Reason Comments Follow-up Encounter Details Date Type Department Care Team ([facility] st Contact Info) Description 10/24/2023 8:45 AM EDT Office Visit Hematology [place] [address] Jean-Pierre Peña MD [facility] [place] [address] Vicky Burnham APRN [facility] [place] [place] [address] Malignant melanoma of scalp (Primary Dx); Secondary malignancy of soft tissue; Medication management; Immunotherapy Social History Tobacco Use Types Packs/Day Years Used Date Smoking Tobacco: Former Smokeless Tobacco: Never Comments:quit at age 35 Alcohol Use Standard Drinks/Week Comments Yes 0 (1 standard drink = 0.6 oz pur e alcohol) social gatherings [facility] Utilities Answer Date Recorded In the past 12 months has [employer] electric, gas, oil, or water company threatened [...] place to sleep or slept in a half-way (including now)? No 07/24/2023 DH IPV Inpatient [...] Sign Reading Time Taken Comments Blood Pressure 113/73 10/24/2023 8:46 AM EDT Pulse 85 10/24/2023 8:46 AM EDT Temperature 36.1 ??C (97 ??F) 10/24/2023 8:46 AM EDT Respiratory Rate 16 10/24/2023 8:46 AM EDT Oxygen Saturation 98% 10/24/2023 8:46 AM EDT Inhaled Oxygen Concentration - - Weight 69.8 kg (153 lb 14.1 oz) 10/24/2023 8:46 AM EDT Height 163.6 cm (5' 4.41) 10/24/2023 8:46 AM ED T Body Mass Index 26.08 10/24/2023 8:46 AM EDT documented in this encounter Progress Notes * Chacha Vicky M, CRANK HAND - 10/24/2023 8:45 AM EDT Images from the original note were not included. [facility] NOTE REFERING PHYSICIAN: DIAGNOSIS: Right occipital scalp melanoma PATH: Malignant melanoma At least T2a 1.5 mm depth with positive margin 6 mitosis BRAF V600K/R variant. CURRENT TX: Cycle #2 adjuvant,(total cycle #4) pembrolizumab on 10/24/2023 Wide local excision and sentinel lymph node biopsy on 09/16/[address] Preciado with negative lymph node, positive satellite lesion Cycle #1 pembrolizumab on 08/23/2023, cycle #2 on 09/12/2023 s/p right neck biopsy on 08/09/2023-> negative Status post scalp lesion biopsy on 06/21/2023 ONCOLOGIC HX: In summer 2022 noticed posterior scalp itchiness In mid May 2023, around her birthday pigmented lesion was noted by family member Biopsy on 06/21/2023 was consistent with malignant melanoma, increased 1.5 mm depth, T2a PET/CT on 07/11/2023 showed bilateral hypermetabolic cervical lymph nodes concerning for metastasis, no obvious distant metastasis Referred to melanoma clinic on 07/25/2023 to discuss treatment options Brain MRI scheduled on 08/01/2023 negative for intracranial metastasis Right neck node biopsy on 08/09/2023 negative for melanoma Increased satellite lesions next to the primary tumor Cycle #1 pembrolizumab on 08/23/2023 Cycle #2 pembrolizumab on 09/12/2023 Surgery on 09/16/[address] Preciado was negative lymph node but positive microsatellite lesion Stage IIIc T4a, N1c Cycle #1, adjuvant pembrolizumab on 10/04/2023 History of psoriatic arthritis over 20 years Used to be on Enbrel(etanercept) for several months in 2020, discontinued because she did not like injection Status post hysterectomy at age 38 for cervical cancer. HPI: Mrs. Gutierrez is 58 y.o. lady with right occipital scalp melanoma, at least T2a 1.5 mm withhypermetabolic bilateral cervical lymph nodes referred to melanoma clinic on 07/25/2023 to discuss treatment options. INTERVAL HISTORY: Patient presents today for 2 cycle of adjuvant pembrolizumab. Excision of scalp lesion and lymph node with Dr. Preciado on 09/16/2023. Lymph node negative for metastatic disease but positive with microsatellitosis. She is presenting for ongoing treatment with pembrolizumab. She seems to be tolerating treatment well. No worsening arthralgias, abdominal pain, fever, chills. Does report that her tattoo on her lower right leg has been intermittently raised on the line work. She does report that it does itch when this happens but resolves on its own. Currently is not elevated. No rashes or other skin changes. REVIEW OF SYSTEMS: Constitutional: No recent weight loss, no fever, no fatigue, No dizziness. Occasional headache. Eyes: Negative, no visual change ENT: No hearing change Cardiovascular: Negative Respiratory: Negative Gastrointestinal: Negative, Genitourinary: Negative Musculoskeletal: No new joint pain Skin: No rash, Neurological: Negative, no focal weakness Psychiatric: stable mood PAST MEDICAL HISTORY: Past Medical History: Diagnosis Date Psoriasis Psoriatic arthritis Skin rash Past Surgical History: Procedure Laterality Date CHOLECYSTECTOMY HYSTERECTOMY KNEE SURGERY PRO ADJ TISS TRANSFER SCALP, EXTREM 10.1-30 Right 09/28/2023 ADJ.TISSUE TRANSFER, REARRANGEMENT, 10.1 TO 30 SQ.CM, SCALP (WRVU 9.72) performed by Castro Preciado MD at [facility] MAIN OR PRO BX/REMV, LYMPH NODE, DEEP CERV Right 09/16/2023 BIOPSY OR EXCISION OF LYMPH NODE(S), OPEN, DEEP CERVICAL NODES (WRVU 6.74) performed by Castro Preciado MD at [facility] MAIN OR PRO RADICAL RESECT OF TUMOR, SOFT TISSUE FACE OR SCALP, 2CM OR GREATER Right 09/16/2023 RADICAL RESECTION TUMOR SCALP; >2 CM (WRVU 15.26) performed by Castro Preciado MD at [facility] MAIN OR PRO SPLIT GRFT, HEAD, FAC, HAND, FEET <100SQCM Right 09/28/2023 SPLIT THICKNESS SKIN SPLIT GRAFT,100SQ CM OR LESS, NECK (WRVU 10.15) performed by Castro Preciado MD at [facility] MAIN OR TUBAL LIGATION MEDS: FLUoxetine, ascorbic acid (Vitamin C), cholecalciferol (Vitamin D3), elderberry fruit, multivit-min/vit C/herb no.124, and turmeric ALLERGY: Codeine with nausea vomiting Allergies Allergen Reactions Codeine Phosphate CIS - vomit FAMILY HX: Paternal grandmother cervical cancer at age 75 Father had lung cancer at age 72 Brother has history of lung cancer and prostate cancer recently found gallbladder lesion, age 67 asof 2023 Family History Problem Relation Age of Onset Cancer Father Cancer Paternal Aunt Cancer Paternal Uncle SOCIAL HX: ETOH: 1 to 2 glasses of wine not likely Smokin ppd from age 15 through 35 Social History Socioeconomic History Marital status: Spouse name: Not on file Number of children: Not on file Years of education: Not on file Highest education level: Not on file Occupational History Not on file Tobacco Use Smoking status: Former Smokeless tobacco: Never Tobacco comments: quit at age 35 Vaping Use Vaping status: Never Used Substance and Sexual Activity Alcohol use: Yes Comment: social gatherings Drug use: No Sexual activity: Not on file Other Topics Concern Not on file Social History Narrative Not on file Social Determinants of Health Financial Resource Strain: High Risk (07/24/2023) Overall Financial Resource Strain (CARDIA) Difficulty of Paying Living Expenses: Hard Food Insecurity: No Food Insecurity (07/24/2023) Hunger Vital Sign Worried About Running Out of Food in the Last Year: Never true Ran Out of Food in the Last Year: Never true Transportation Needs: No Transportation Needs (07/24/2023) PRAPARE - Transportation Lack of Transportation (Medical): No Lack of Transportation (Non-Medical): No Physical Activity: Not on file Intimate Partner Violence: Patient Unable To Answer (09/28/2023) DH IPV Inpatient Questions Prevent Contact with Others: unable to answer (comment required) Feels Threatened by Someone: unable to answer (comment required) Feels Unsafe at Home: unable to answer (comment required) Physical Signs of Abuse Present: no Housing Stability: Low Risk (07/24/2023) Housing Stability Vital Sign Unable to Pay for Housing in the Last Year: No Number of Places Lived in the Last Year: 1 Unstable Housing in the Last Year: No PHYSICAL EXAM: PS= 1 close to 0 General: not in acute distress. in good mood and spirits There were no vitals taken for this visit. Eyes: Not icteric, not injected Oral: Not examined Neck: Supple. No obvious palpable lymphadenopathy. Lungs: Bilaterally clear to auscultation, No wheezing, No crackles Heart: Regular rate and rhythm. Abdomen: Soft, no tenderness, no mass, normal active bowel sounds. Extremities: No edema. Skin: No obvious rash Surgical site not observed this visit Neuro: No focal weakness LABS: Unremarkable CBCD and CMP Unremarkable thyroid function test [facility] 194 IMAGING STUDIES: Brain MRI on 08/01/2023 Negative for brain metastases. PET/CT on 07/11/2023 1. No residual scalp melanoma is identified in this scan. 2. Bilateral cervical lymph node metastases. 3. No distant metastases. ASSESSMENT AND PLAN: Right posterior scalp melanoma, at least T2a, 1.5 mm depth, 6 mitosis, N1c with satellite lesions BRAF V600K/R variant. Cycle #1 neoadjuvant pembrolizumab on 08/23/2023 Cycle #2 on 09/12/2023 Wide local excision and sentinel lymph node biopsy on 09/16/[address] Preciado with negative lymph node, positive satellite lesion Staging 3C, T4a N1c Cycle #1 adjuvant pembrolizumab on 10/04/2023 Stg III3c melanoma on adj pembro. Resection from 09/14 with lymph nodes negative for melanoma. She isBRAF V600K/R + , however, will continue with SOC pembrolizumab given clinical response seen after 2doses pembrolizumab prior to surgery. We will plan to continue seeing patient every 3 weeks for infusion of pembrolizumab until Jun 2024. Surgical wound is currently covered. Patient will be seeing surgeon after this clinic visit with us. Patient was able to show us a picture that she took of the wound, which looks good and like it is healing well. We did discuss with patient possible change from q3 week infusions to q6 weeks in the future if needed to accommodate for the distance that patient drives. We will discuss again at a future visit. Vicky Burnham APRN RTC in 3 weeks with labs, and infusion documented in this encounter Plan of Treatment Upcoming Encounters Date Type Department Care Team (Late st Contact Info) Description 12/20/2023 2:15 PM EDT Office Visit Dermatology at [facility] [address] [place] [address] Inderjit Vilchis MD [facility] [address] GIL[facility] [address] 12/22/2023 10:00 AM EDT Office [place] [address] Norm Joy PA [facility] OTOLARYNGOLOGY [place], [place] [id number] 12/26/2023 11:45 AM EDT Appointment Hematology [place] [address] 12/26/2023 12:45 PM EDT Office Visit Hematology [place] [address] Jean-Pierre Peña MD [facility] [place] [address] Vicky Burnham APRN [facility] [place] [place] [address] 12/26/2023 2:30 PM EDT Appointment Hematology [place] [address] 02/06/2024 10:00 AM EDT Appointment Hematology [place] [address] 02/06/2024 12:45 PM EDT Office Visit Hematology [place] [address] Jean-Pierre Peña MD [facility] DR HEMATOLOGY AND ONCOLOGY [place], [place] [id number] Vicky Burnham APRN [facility] [place] [place] [address] 02/06/2024 2:00 PM EDT Appointment Hematology [place] [phone] documented as of this encounter Visit Diagnoses Diagnosis Malignant melanoma of scalp- Primary Malignant melanoma of skin of scalp and neck Secondary malignancy of soft tissue Medication management Encounter for long-term (current) use of other medications Immunotherapy Reserved for inherently not codable concepts WITHOUT codable children documented in this encounter Care Teams Igniter Capper Relationship Specialty Start Date End Date Taylor Bryant APRN [address] [place] [address] PCP - General 03/31/10 documented as of this encounter
--- OUTSIDE RECORDS SUMMARY | 2023-12-05 02:26 | XMS_ITS | Encounter Summary ---
Author Organization Replaced By [facility] Address [facility] [place] [address] Care Team Providers Care Head Usher Name Role Phone Taylor Bryant APRN Primary Care Provider [phone] Encounter Details Date Type Department Care Team ([facility] st Contact Info) Description 10/04/2023 Notes Only Hematology and Oncology at [facility] [place] [address] Roselyn Sánchez Social History Tobacco Use Types Packs/Day Years Used Date Smoking Tobacco: Former Smokeless Tobacco: Never Comments:quit at age 35 Alcohol Use Standard Drinks/Week Comments Yes 0 (1 standard drink = 0.6 oz pur e alcohol) social gatherings [facility] Utilities Answer Date Recorded In the [...] place to sleep or slept in a mcfp (including now)? No 07/24/2023 IPV Inpatient Questions [...] on file documented as of this encounter Progress Notes * Roselyn Sánchez - 10/04/2023 1:39 PM EDT [facility] Guitar Repairer submitted FRANC carcamo asking for assistance with [employer] autobill $582.70 and a [employer] gift card $150. Roselyn Sánchez documented in this encounter Plan of Treatment Upcoming Encounters Date Type Department Care Team (Late st Contact Info) Description 12/20/2023 2:15 PM EDT Office Visit Dermatology at [address] [address] Inderjit Vilchis MD [facility] [address] [place] [address] 12/22/2023 10:00 AM EDT Office [place] [address] Norm Joy PA [facility] [place] [address] 12/26/2023 11:45 AM EDT Appointment Hematology and Oncology at [place] [address] 12/26/2023 12:45 PM EDT Office Visit Hematology and Oncology at [place] [address] Jean-Pierre Peña MD [facility] [address] [place] [address] Vicky Burnham SWATCH CLERK [facility] [place] [address] 12/26/2023 2:30 PM EDT Appointment Hematology and Oncology at [place] [address] 02/06/2024 10:00 AM EDT Appointment Hematology and Oncology at [place] [address] 02/06/2024 12:45 PM EDT Office Visit Hematology and Oncology at [place] [address] Jean-Pierre Peña MD [facility] [address] [place] [address] Vicky Burnham SWATCH CLERK [facility] [place] [address] 02/06/2024 2:00 PM EDT Appointment Hematology and Oncology at [address] documented as of this encounter Visit Diagnoses Not on filedocumented in this encounter Care Teams Head Usher Relationship Specialty Start Date End Date Taylor Bryant APRN [address] [place] [address] PCP - General 03/31/10 documented as of this encounter
--- OUTSIDE RECORDS SUMMARY | 2023-12-05 02:26 | XMS_ITS | Encounter Summary ---
Author Organization [facility] Address [facility] [place] [address] Care Team Providers Care Director Decision Support Name Role Phone Taylor Bryant APRN Primary Care Provider [phone] Encounter Details Date Type Department Care Team ([facility] st Contact Info) Description 10/27/2023 Telephone Hematology [place] [phone] Roselyn Sánchez Social History Tobacco Use Types Packs/Day Years Used Date Smoking Tobacco: Former Smokeless Tobacco: Never Comments:quit at age 35 Alcohol Use Standard Drinks/Week Comments Yes 0 (1 standard drink = 0.6 oz pur e alcohol) social gatherings [facility] Utilities Answer Date Recorded In the past [...] * Telephone Encounter - Roselyn Sánchez - 10/27/2023 10:03 AM EDT [facility] Commercial Real Estate Attorney spoke with Keeley. [facility] awarded payment for auto loan $582.70. Keeley is very grateful for this assistance. She is sending me gas receipts , so I can reapply to [facility] for more support with gas expenses to . Roselyn Sánchez documented in this encounter Plan of Treatment Upcoming Encounters Date Type Department Care Team (Late st Contact Info) Description 12/20/2023 2:15 PM EDT Office Visit Dermatology at [place] [address] [place] [address] Inderjit Vilchis MD [facility] DR [place] [address] 12/22/2023 10:00 AM EDT Office [place] [address] Norm Joy PA [facility] [place] [address] 12/26/2023 11:45 AM EDT Appointment Hematology and Oncology at [place] [phone] 12/26/2023 12:45 PM EDT Office Visit Hematology and Oncology at [place] [phone] Jean-Pierre Peña MD [facility] DR HEMATOLOGY [place] [address] Vicky Burnham APRN [facility] [place] [address] 12/26/2023 2:30 PM EDT Appointment Hematology and Oncology at [place] [phone] 02/06/2024 10:00 AM EDT Appointment Hematology and Oncology at [place] [address] 02/06/2024 12:45 PM EDT Office Visit Hematology and Oncology at [place] [phone] Jean-Pierre Peña MD [facility] DR HEMATOLOGY [place] [address] Vicky Burnham VOICE COACH [facility] [place] [address] 02/06/2024 2:00 PM EDT Appointment Hematology and Oncology at [place] [phone] documented as of this encounter Visit Diagnoses Not on filedocumented in this encounter Care Teams Director Decision Support Relationship Specialty Start Date End Date Taylor Bryant APRN [address] [place] [address] PCP - General 03/31/10 documented as of this encounter
--- OUTSIDE RECORDS SUMMARY | 2023-12-05 02:26 | XMS_ITS | Encounter Summary ---
Author Organization [facility] Address [facility] [place] [address] Care Team Providers Care Returns Processor Name Role Phone Taylor Bryant APRN Primary Care Provider +1 [phone] Encounter Details Date Type Department Care Team (Latest Contact Info) Description 11/14/2023 7:18 AM EDT Hospital Encounter Hematology and Oncology at 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 No 07/24/2023 IPV Inpatient Questions [...] 2:15 PM EDT Office Visit Dermatology at [facility] [address] [place] [address] Inderjit Vilchis MD [facility] DR GILBERT[place] [address] 12/22/2023 10:00 AM EDT Office Visit Otolaryngology at [place] [address] Norm Joy PA [facility] [place] [address] 12/26/2023 11:45 AM EDT Appointment Hematology and Oncology at [place] [address] 12/26/2023 12:45 PM EDT Office Visit Hematology and Oncology at [place] [address] Jean-Pierre Peña MD [facility] [address] [place] [address] Vicky Burnham APRN [facility] [place] [address] 12/26/2023 2:30 PM EDT Appointment Hematology and Oncology at [place] [phone] 02/06/2024 10:00 AM EDT Appointment Hematology and Oncology at [place] [address] 02/06/2024 12:45 PM EDT Office Visit Hematology and Oncology at [place] [address] Jean-Pierre Peña MD [facility] [address] [place] [address] Vicky Burnham APRN [facility] [place] [address] 02/06/2024 2:00 PM EDT Appointment Hematology and Oncology at [place] [address] documented as of this encounter Procedures Procedure Name Priority Date/Time Associated Diagnosis Comments HEMOGRAM STAT 11/14/2023 7:34 AM EDT Medication management 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, unspecified lymph node region DIFFERENTIAL, AUTOMATED STAT 11/14/2023 7:34 AM EDT Medication management [...] region documented in this encounter Results * Differential, Automated (11/14/2023 7:34 AM EDT) Neutrophils % 66.6 % [facility] Neutr Abs (ANC) 4.70 1.70 - 6.10 x10(3)/[facility] Lymphocytes % 18.0 % [facility] Lymphocytes Abs 1.3 0.9 - 3.2 x10(3)/[facility] Monocytes % 9.6 % [facility] Monocyte Abs 0.7 0.3 - 0.9 x10(3)/[facility] Eosinophils % 4.7 % [facility] Eosinophils Abs 0.3 0.0 - 0.4 x10(3)/[facility] Basophils % 0.7 % [facility] Basophils Abs 0.0 0.0 - 0.1 x10(3)/[facility] Immature Gran % 0.40 % [facility] Comment: Immature granulocytes(IG's)percentage and absolute count will include metamyelocytes, myelocytes, and promyelocytes. Blood smears from CBCs yielding IG's will be scanned manually for concordance. If this scan disagrees with the automated IG or if promyelocytes are noted, a manual differential will be performed. Funmi Gran Abs 0.03 0.00 - 0.04 x10(3)/[facility] Blood 11/14/2023 7:34 AM EDT 11/14/2023 7:45 AM EDT Narrative Resulting Agency Comment Spec In Lab Jean-Pierre Peña MD HEMATOLOGY ORDERABLE S Performing Organization Address City/State/[facility] Co de Phone Number [facility] [place] [address] * (ABNORMAL) Hemogram (11/14/2023 7:34 AM EDT) WBC 7.1 4.0 - 9.5 x10(3)/[facility] RBC 3.90(L) 4.00 - 5.21 x10(6)/[facility] Hemoglobin 11.7 11.7 - 15.5 g/dL [facility] Hematocrit 35.8 35.7 - 45.8 % [facility] MCV 91.8 82.6 - 94.4 fL [facility] MCH 30.0 27.1 - 32.0 pg [facility] MCHC 32.7 31.7 - 35.0 g/dL [facility] Platelets 295 145 - 357 x10(3)/[facility] RDWSD 47.1(H) 37.0 - 46.0 fL [facility] RDWCV 14.0 11.5 - 14.1 % [facility] MPV 10.8 7.6 - 12.9 [facility] nRBC % Auto 0.0 % [facility] nRBC Abs Auto 0.000 0.000 - 0.000 x10(3)/mcL [facility] Blood 11/14/2023 7:34 AM EDT 11/14/2023 7:45 AM EDT Narrative Resulting Agency Comment Spec In Lab Jean-Pierre Peña MD HEMATOLOGY ORDERABLE S [facility] [place] [address] * (ABNORMAL) Comprehensive metabolic panel (non-fasting) (11/14/2023 7:34 AM EDT) Glucose Lvl 103 65 - 199 mg/dL [facility] Comment:Diabetes: >=200 mg/d L plus symptoms BUN 24(H) 8 - 18 mg/dL [facility] Creatinine 0.92 0.70 - 1.20 mg/dL [facility] Sodium 142 135 - 145 mmol/L [facility] Potassium 4.1 3.5 - 5.0 mmol/L [facility] Comment: Please note: ??Patients with WBC >100,000 may have falsely elevated Potassium levels. ??For accurate Potassium quantification in these patients send serum separator tube (gold top) for subsequent determinations. ??Contact the Clinical Chemistry Laboratory if there are any questions. Chloride 109(H) 98 - 107 mmol/L [facility] CO2 24 22 - 31 mmol/L [facility] Anion Gap 9 5 - 15 mmol/L [facility] Calcium 9.3 8.5 - 10.5 mg/dL [facility] Total Protein 6.4 6.1 - 8.0 g/dL [facility] Albumin 3.8 3.2 - 5.2 g/dL [facility] AST 13 0 - 30 unit/L [facility] ALT 9 0 - 30 unit/L [facility] Alk Phos 75 35 - 105 unit/L [facility] Total Bilirubin 0.3 0.2 - 1.3 mg/dL [facility] Estimated GFR 72 >=60 mL/min/1. 73 m?? [facility] Comment: This patient's estimated GFR [...] Peña MD CHEMISTRY ORDERABLES Performing Organization Address City/[facility]/ZIP Co de Phone Number [facility] [place] [address] * TSH (11/14/2023 7:34 AM EDT) TSH 0.97 0.27 - 4.20 mcIU/mL [facility] Comment: Reference Interval (mcIU/mL): Females: ??First Trimester: 0.23-3.88 ??Second Trimester: 0.22-3.90 ??Third Trimester: 0.44-4.66 Blood 11/14/2023 7:34 AM EDT 11/14/2023 7:45 AM EDT Narrative Resulting Agency Comment Spec In Lab Jean-Pierre Peña MD CHEMISTRY ORDERABLES [facility] [place] [address] * T4, free (11/14/2023 7:34 AM EDT) Free T4 1.20 0.93 - 1.70 ng/dL [facility] Comment: Reference Interval (ng/dL): Females: ??First Trimester: 0.97-1.68 ??Second Trimester: 0.77-1.51 ??Third Trimester: 0.77-1.49 Blood 11/14/2023 7:34 AM EDT 11/14/2023 7:45 AM EDT Narrative Resulting Agency Comment Spec In Lab Jean-Pierre Peña MD CHEMISTRY ORDERABLES [facility] [place] [address] * Lactate Dehydrogenase (11/14/2023 7:34 AM EDT) LDH 165 110 - 220 unit/L [facility] Blood 11/14/2023 7:34 AM EDT 11/14/2023 7:45 AM EDT Narrative Resulting Agency Comment Spec In Lab Jean-Pierre Peña MD CHEMISTRY ORDERABLES [facility] [place] [address] documented in this encounter Visit Diagnoses Diagnosis Medication management Encounter for long-term (current) use of other medications Malignant melanoma of scalp Malignant melanoma of skin of scalp and neck 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
--- OUTSIDE RECORDS SUMMARY | 2023-12-05 02:26 | XMS_ITS | Encounter Summary ---
Author Organization [facility] Address [facility] [place] [address] Care Team Providers Care Cone Worker Name Role Phone Taylor Bryant APRN Primary Care Provider +1 [phone] Encounter Details Date Type Department Care Team (Latest Contact Info) Description 11/13/2023 Travel Social History Tobacco Use Types Packs/Day Years Used Date Smoking Tobacco: Former Smokeless Tobacco: Never Comments:quit at age 35 Alcohol Use Standard Drinks/Week Comments Yes 0 (1 standard drink = 0.6 oz pur e alcohol) social gatherings [facility] Utilities Answer Date Recorded In the [...] place to sleep or slept in a fpc (including now)? No 07/24/2023 IPV Inpatient Questions [...] 2:15 PM EDT Office Visit Dermatology at [address] [address] Inderjit Vilchis MD [facility] DR GILBERTO [place] [address] 12/22/2023 10:00 AM EDT Office [place] [phone] Norm Joy PA [facility] [place] [address] 12/26/2023 11:45 AM EDT Appointment Hematology [place] [address] 12/26/2023 12:45 PM EDT Office Visit Hematology [place] [phone] Jean-Pierre Peña MD [facility] HEMATOLOGY AND ONCOLOGY [place], [place] [phone] Vicky Burnham APRN [facility] [place] [address] 12/26/2023 2:30 PM EDT Appointment Hematology [place] [phone] 02/06/2024 10:00 AM EDT Appointment Hematology and Oncology at [place] [phone] 02/06/2024 12:45 PM EDT Office Visit Hematology and Oncology at [place] [phone] Jean-Pierre Peña MD [facility] [place] [address] Vicky Burnham APRN [facility] [place] [address] 02/06/2024 2:00 PM EDT Appointment Hematology and Oncology at [place] [phone] documented as of this encounter Visit Diagnoses Not on filedocumented in this encounter Care Teams Cone Worker Relationship Specialty Start Date End Date Taylor Bryant APRN [address] [place] [address] PCP - General 03/31/10 documented as of this encounter
--- OUTSIDE RECORDS SUMMARY | 2023-12-05 02:26 | XMS_ITS | Encounter Summary ---
Author Organization [facility] Address [facility] [place] [address] Care Team Providers Care Insurance And Benefits Clerk Name Role Phone Taylor Bryant APRN Primary Care Provider +1 -[phone] Encounter Details Date Type Department Care Team ([facility] st Contact Info) Description 11/08/2023 Notes Only Hematology and Oncology at [facility] [place] [address] Roselyn Sánchez Social History Tobacco Use Types Packs/Day Years Used Date Smoking Tobacco: Former Smokeless Tobacco: Never Comments:quit at age 35 Alcohol Use Standard Drinks/Week Comments Yes 0 (1 standard drink = 0.6 oz pur e alcohol) social gatherings [facility] Utilities Answer Date Recorded In the past [...] encounter Progress Notes * Roselyn Sánchez - 11/08/2023 3:27 PM EDT [facility] [employer] 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 Roselyn Sánchez documented in this encounter Plan of Treatment Upcoming Encounters Date Type Department Care Team (Late st Contact Info) Description 12/20/2023 2:15 PM EDT Office Visit Dermatology at [place] [address] [place] [address] Inderjit Vilchis MD [facility] DR GILBERT[place] [address] 12/22/2023 10:00 AM EDT Office [place] [address] Norm Joy PA [facility] [place] [address] 12/26/2023 11:45 AM EDT Appointment Hematology and Oncology at [place] [address] 12/26/2023 12:45 PM EDT Office Visit Hematology and Oncology at [place] [address] Jean-Pierre Peña MD [facility] DR HEMATOLOGY [place] [address] Vicky Burnham APRN [facility] [place] [address] 12/26/2023 2:30 PM EDT Appointment Hematology and Oncology at [place] [address] 02/06/2024 10:00 AM EDT Appointment Hematology and Oncology at [place] [address] 02/06/2024 12:45 PM EDT Office Visit Hematology and Oncology at [place] [address] Jean-Pierre Peña MD [facility] DR HEMATOLOGY [place] [address] Vicky Burnham APRN [facility] [place] [address] 02/06/2024 2:00 PM EDT Appointment Hematology and Oncology at [place] [address] documented as of this encounter Visit Diagnoses Not on filedocumented in this encounter Care Teams Insurance And Benefits Clerk Relationship Specialty Start Date End Date Taylor Bryant APRN [address] [place] [address] PCP - General 03/31/10 documented as of this encounter
--- OUTSIDE RECORDS SUMMARY | 2023-12-05 02:26 | XMS_ITS | Encounter Summary ---
Author Organization [facility] Address [facility] [place] [address] Care Team Providers Care Shell Molder Name Role Phone Taylor Bryant APRN Primary Care Provider [phone] [phone] Encounter Details Date Type Department Care Team (Latest Contact Info) Description 10/11/2023 Multidisciplinary Ca re Committee Hematology [place] [address] Jean-Pierre Peña MD [facility] DR [place]EMAT[place] [address] Social History Tobacco Use Types Packs/Day Years Used Date Smoking Tobacco: Former Smokeless Tobacco: Never Comments:quit at age 35 Alcohol Use Standard Drinks/Week Comments Yes 0 (1 standard drink = 0.6 oz pur e alcohol) social gatherings [facility] Utilities Answer Date Recorded In the [...] place to sleep or slept in a retirement (including now)? No 07/24/2023 DH IPV Inpatient [...] as of this encounter Progress Notes * Jean-Pierre Peña MD - 10/11/2023 2:06 PM EDT Melanoma - Tumor Board Note Date Presented: 10/11/2023 Presenting Physician: Mariana Diagnosis/Tumor Site: Right occipital scalp melanoma Is this Metastatic Disease: No Synopsis of History/HPI: Malignant melanoma; BRAF V600K/R variant Imaging: Pathology/Histology: DIAGNOSIS A - Right level 2, lymph [...] examined inked margins are free of lesion Stage: Clinical Data (Exams, Labs, etc.): Molecular Pathology Results: BRAF V600K/R variant Clinical Trial Availability: Options Discussed: Recommendations: Stage 3C T4a N1c melanoma, given seen clinical response with neoadjuvant pembrolizumab, will continue adjuvant pembrollizumab in stead of switching to adjuvant dabrafenib and trametinib. Full Skin Examination Interval Recommendations: DH Initial: FSE Interval: q3mo x 1 year; q6mo x 2 years DH Subsequent: annual NCCN Initial: q3-6mo x 2 years; q3-12mo x 3 years NCCN Subsequent: annual DISCLAIMER: The patient was discussed and the tumor board made recommendations but it is ultimatelyup to the treatment provider(s) and the patient to determine the patient???s care. documented in this encounter Plan of Treatment Upcoming Encounters Date Type Department Care Team (Late st Contact Info) Description 12/20/2023 2:15 PM EDT Office Visit Dermatology at [address] [address] Inderjit Vilchis MD [facility] DR GILBERTO [place] [address] 12/22/2023 10:00 AM EDT Office Visit [place] [address] Norm Joy PA [facility] [place] [address] 12/26/2023 11:45 AM EDT Appointment Hematology [place] [address] 12/26/2023 12:45 PM EDT Office Visit Hematology [place] [address] Jean-Pierre Peña MD [facility] DR HEMATOLOGY [place] [address] Vicky Burnham APRN [facility] [place] [address] 12/26/2023 2:30 PM EDT Appointment Hematology [place] [phone] 02/06/2024 10:00 AM EDT Appointment Hematology [place] [address] 02/06/2024 12:45 PM EDT Office Visit Hematology [place] [address] Jean-Pierre Peña MD [facility] DR HEMATOLOGY [place] [address] Vicky Burnham APRN [facility] [place] [address] 02/06/2024 2:00 PM EDT Appointment Hematology [place] [address] documented as of this encounter Visit Diagnoses Not on filedocumented in this encounter Care Teams Shell Molder Relationship Specialty Start Date End Date Taylor Bryant APRN [address] [place] [address] PCP - General 03/31/10 documented as of this encounter
--- OUTSIDE RECORDS SUMMARY | 2023-12-05 02:26 | XMS_ITS | Encounter Summary ---
Author Organization [facility] Address [facility] [place] [address] Care Team Providers Care Buckle Strap Puncher Name Role Phone Taylor Bryant APRN Primary Care Provider +1 [phone] Encounter Details Date Type Department Care Team (Latest Contact Info) Description 10/23/2023 Travel Social History Tobacco Use Types Packs/Day Years Used Date Smoking Tobacco: Former Smokeless Tobacco: Never Comments:quit at age 35 Alcohol Use Standard Drinks/Week Comments Yes 0 (1 standard drink = 0.6 oz pur e alcohol) social gatherings [facility] Utilities Answer Date Recorded In [...] PM EDT Office Visit Dermatology at [address] [address] Inderjit Vilchis MD [facility] DR GILBERTO [place] [address] 12/22/2023 10:00 AM EDT Office [place] [address] Norm Joy PA [facility] [place] [address] 12/26/2023 11:45 AM EDT Appointment [place]ematology [place] [address] 12/26/2023 12:45 PM EDT Office Visit [place]ematology [place] [address] Jean-Pierre Peña MD [facility] HEMATOLOGY AND ONCOLOGY [place], [place] [phone] Vicky Burnham APRN [facility] [place] [address] 12/26/2023 2:30 PM EDT Appointment Hematology [place] [address] 02/06/2024 10:00 AM EDT Appointment Hematology and Oncology at [place] [phone] 02/06/2024 12:45 PM EDT Office Visit Hematology and Oncology at [place] [phone] Jean-Pierre Peña MD [facility] [place] [address] Vicky Burnham APRN [facility] [place] [address] 02/06/2024 2:00 PM EDT Appointment Hematology and Oncology at [place] [phone] documented as of this encounter Visit Diagnoses Not on filedocumented in this encounter Care Teams Buckle Strap Puncher Relationship Specialty Start Date End Date Taylor Bryant APRN [address] [place] [address] PCP - General 03/31/10 documented as of this encounter
--- OUTSIDE RECORDS SUMMARY | 2023-12-05 02:26 | XMS_ITS | Encounter Summary ---
Author Organization [facility] Address [facility] [place] [address] Care Team Providers Care Metallographer Name Role Phone Taylor Bryant APRN Primary Care Provider [phone] [phone] Encounter Details Date Type Department Care Team (Latest Contact Info) Description 10/03/2023 Travel Social History Tobacco Use Types Packs/Day Years Used Date Smoking Tobacco: Former Smokeless Tobacco: Never Comments:quit at age 35 Alcohol Use Standard Drinks/Week Comments Yes 0 (1 standard drink = 0.6 oz pur e alcohol) social gatherings [facility] Utilities Answer Date Recorded In [...] place to sleep or slept in a chcf (including now)? No 07/24/2023 IPV Inpatient Questions [...] 2:15 PM EDT Office Visit Dermatology at [address] [address] Inderjit Vilchis MD [facility] DR GILBERT[place] [address] 12/22/2023 10:00 AM EDT Office Visit [place] [phone] Norm Joy PA [facility] [place] [address] 12/26/2023 11:45 AM EDT Appointment Hematology [place] [address] 12/26/2023 12:45 PM EDT Office Visit Hematology [place] [address] Jean-Pierre Peña MD [facility] HEMATOLOGY AND ONCOLOGY [place], [place] [phone] Vicky Burnham APRN [facility] [place] [address] 12/26/2023 2:30 PM EDT Appointment Hematology [place] [phone] 02/06/2024 10:00 AM EDT Appointment Hematology and Oncology at [place] [phone] 02/06/2024 12:45 PM EDT Office Visit Hematology and Oncology at [place] [phone] Jean-Pierre Peña MD [facility] DR HEMATOLOGY [place] [address] Vicky Burnham APRN [facility] [place] [address] 02/06/2024 2:00 PM EDT Appointment Hematology and Oncology at [place] [phone] documented as of this encounter Visit Diagnoses Not on filedocumented in this encounter Care Teams Metallographer Relationship Specialty Start Date End Date Taylor Bryant APRN [address] [place] [address] PCP - General 03/31/10 documented as of this encounter
--- OUTSIDE RECORDS SUMMARY | 2023-12-05 02:26 | XMS_ITS | Encounter Summary ---
Author Organization [facility] Address [facility] [place] [address] Care Team Providers Care Rn Picu Name Role Phone Taylor Bryant APRN Primary Care Provider [phone] [phone] Encounter Details Date Type Department Care Team ([facility] st Contact Info) Description 10/06/2023 1:40 PM EDT Office [place] [phone] Castro Preciado MD [facility] [place] [address] Malignant melanoma of scalp; Psoriatic arthritis Social History Tobacco Use Types Packs/Day Years Used Date Smoking Tobacco: Former Smokeless Tobacco: Never Comments:quit at age 35 Alcohol Use Standard Drinks/Week Comments Yes 0 (1 standard drink = 0.6 oz pur e alcohol) social gatherings [facility] Utilities Answer Date Recorded In the [...] place to sleep or slept in a assisted (including now)? No 07/24/2023 DH IPV Inpatient [...] - Inhaled Oxygen Concentration - - Weight 69.4 kg (153 lb) 10/06/2023 1:49 PM EDT Height 162.6 cm (5' 4) 10/06/2023 1:49 PM EDT Body Mass Index 26.26 10/06/2023 1:49 PM EDT documented in this encounter Progress Notes * Castro Preciado MD - 10/06/2023 1:40 PM EDT Images from the original note were not included. Subjective Patient ID: Keeley Gutierrez is a 58 y.o. female. HPI SHe is seen in follow up [...] of Lymph Nodes Examined: 6 Number of [place] Nodes Examined: 0 Pathologic Stage Classification (pTNM, AJCC 8th Edition) Pathologic Stage Classification: Classification assigned in this report includes information from a prior procedure - yes pT Category: pT4a Has been recovering OK. Pain well managed, no bleeding from surgical sites. Allevyn saturated. No new complaints. Past Medical History: Diagnosis Date Psoriasis Psoriatic arthritis Skin rash Past Surgical History: Procedure Laterality Date CHOLECYSTECTOMY HYSTERECTOMY KNEE SURGERY PRO ADJ TISS TRANSFER SCALP, EXTREM 10.1-30 Right 09/28/2023 ADJ.TISSUE TRANSFER, REARRANGEMENT, 10.1 TO 30 SQ.CM, SCALP (WRVU 9.72) performed by Castro Preciado MD at [facility] [place] MAIN OR PRO BX/REMV, LYMPH NODE, DEEP CERV Right 09/16/2023 BIOPSY OR EXCISION OF LYMPH NODE(S), OPEN, DEEP CERVICAL NODES (WRVU 6.74) performed by Castro Preciado MD at [facility] [place] MAIN OR PRO RADICAL RESECT OF TUMOR, SOFT TISSUE FACE OR SCALP, 2CM OR GREATER Right 09/16/2023 RADICAL RESECTION TUMOR SCALP; >2 CM (WRVU 15.26) performed by Castro Preciado MD at [facility] [place] MAIN OR PRO SPLIT GRFT, HEAD, FAC, HAND, FEET <100SQCM Right 09/28/2023 SPLIT THICKNESS SKIN SPLIT GRAFT,100SQ CM OR LESS, NECK (WRVU 10.15) performed by Castro Preciado MD at 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 Medication management Z79.899 Current Outpatient Medications: ascorbic acid, Vitamin C, (Vitamin C) 500 mg tablet, Take 500 mg by mouth daily., Disp: , Rfl: multivit-min/vit C/herb no.124 (AIRBORNE GUMMY ORAL), Take by mouth., Disp: , Rfl: TURMERIC ORAL, Take by mouth., Disp: , Rfl: elderberry fruit 350 mg Capsule, Take by mouth., Disp: , Rfl: cholecalciferol, Vitamin D3, 50 mcg (2,000 unit) Capsule, Take by mouth., Disp: , Rfl: FLUoxetine (PROZAC) 40 mg Capsule, Take 40 mg by mouth daily., Disp: , Rfl: Allergies Allergen Reactions Codeine Phosphate CIS - vomit Review of Systems: A comprehensive Review of Systems is completed and except as noted in the HPI isnegative for constitutional, neurologic, respiratory, cardiac, vascular, immune, GI, , MSK, endocrine, skin, and functional systems which are reviewed. Family History Problem Relation Age of Onset Cancer Father Cancer Paternal Aunt Cancer Paternal Uncle There is no pertinent family history of otolaryngology problems. Social History Socioeconomic History Marital status: Spouse [...] Partner Violence: Patient Unable To Answer (09/28/2023) IPV Inpatient Questions Prevent Contact with Others: [...] Unstable Housing in the Last Year: No Review of Systems Objective Physical Exam Constitutional: General: She is not in acute distress. Appearance: She is well-developed. She is not diaphoretic. HENT: Head: Normocephalic. Right Ear: Tympanic membrane, ear canal and external ear normal. No middle ear effusion. Left Ear: Tympanic membrane, ear canal and external ear normal. No middle ear effusion. Nose: No nasal deformity or mucosal edema. Right Sinus: No maxillary sinus tenderness or frontal sinus tenderness. Left Sinus: No maxillary sinus tenderness or frontal sinus tenderness. Mouth/Throat: Pharynx: No oropharyngeal exudate. Eyes: General: No scleral icterus. Conjunctiva/sclera: Conjunctivae normal. Pupils: Pupils are equal, round, and reactive to light. Neck: Thyroid: No thyromegaly. Trachea: Trachea normal. No tracheal deviation. Pulmonary: Effort: Pulmonary effort is normal. No respiratory distress. Breath sounds: No stridor. Musculoskeletal: Cervical back: Full passive range of motion without pain, normal range of motion and neck supple. Lymphadenopathy: Head: Right side of head: No submental adenopathy. Cervical: No cervical adenopathy (healed incisions from her SLNB sites, sutures removed). Right cervical: No superficial or deep cervical adenopathy. Left cervical: No superficial or deep cervical adenopathy. Skin: General: Skin is warm. Findings: No erythema. Neurological: Mental Status: She is alert and oriented to person, place, and time. Cranial Nerves: No cranial nerve deficit. Deep Tendon Reflexes: Reflexes are normal and symmetric. Psychiatric: Behavior: Behavior normal. Thought Content: Thought content normal. Judgment: Judgment normal. Assessment and Plan We will set up an appointment next week for her to have rest of scalp reconstructed managed as she is not ready today to have these removed. Will need presentation at melanoma TB since upstaged as T4a scalp tumor documented in this encounter Plan of Treatment Upcoming Encounters Date Type Department Care Team (Late st Contact Info) Description 12/20/2023 2:15 PM EDT Office Visit Dermatology at [facility] [address] [place] [address] Inderjit Vilchis MD [facility] DR GILBERTO [place] [address] 12/22/2023 10:00 AM EDT Office Visit Otolaryngology at [place] [address] Norm Joy PA [facility] [place] [address] 12/26/2023 11:45 AM EDT Appointment Hematology and Oncology at [address] 12/26/2023 12:45 PM EDT Office Visit Hematology and Oncology at [place] [address] Jean-Pierre Peña MD [facility] [address] [place] [address] Vicky Burnham APRN [facility] [place] [address] 12/26/2023 2:30 PM EDT Appointment Hematology and Oncology at [address] 02/06/2024 10:00 AM EDT Appointment Hematology and Oncology at [place] [phone] 02/06/2024 12:45 PM EDT Office Visit Hematology and Oncology at [address] Jean-Pierre Peña MD [facility] HEMATOLOGY [place] [address] Vicky Burnham APRN [facility] [place] [address] 02/06/2024 2:00 PM EDT Appointment Hematology and Oncology at [place] [phone] documented as of this encounter Visit Diagnoses Diagnosis Malignant melanoma of scalp Malignant melanoma of skin of scalp and neck Psoriatic arthritis Psoriatic arthropathy documented in this encounter Care Teams Rn Picu Relationship Specialty Start Date End Date Taylor Bryant APRN [address] [place] [address] PCP - General 03/31/10 documented as of this encounter
--- OUTSIDE RECORDS SUMMARY | 2023-12-05 02:26 | XMS_ITS | Encounter Summary ---
Author Organization [facility] Address [facility] [place] [address] Care Team Providers Care Summer Analyst Name Role Phone AnnetteTaylor ZARA Primary Care Provider [phone] Encounter Details Date Type Department Care Team ([facility] st Contact Info) Description 11/14/2023 8:45 AM EDT Office Visit Hematology [place] [address] Sharath Parra MD [facility] [address] [place] [address] Vicky Burnham APRN [facility] [place] [address] Malignant melanoma of scalp (Primary Dx); Secondary malignancy of soft tissue; Medication management; Immunotherapy Social History Tobacco Use Types Packs/Day Years Used Date Smoking Tobacco: Former Smokeless Tobacco: Never Comments:quit at age 35 Alcohol Use Standard Drinks/Week Comments Yes 0 (1 standard drink = 0.6 oz pur e alcohol) social gatherings [facility] Utilities Answer Date Recorded In the past 12 months has [employer], gas, oil, or water company threatened [...] Mass Index 27.14 11/14/2023 8:47 AM EDT documented in this encounter Progress Notes * Pushpaelenita Vicky M, CALCULATOR OPERATOR - 11/14/2023 8:45 AM EDT Images from the original note were not included. [facility] NOTE REFERING PHYSICIAN: DIAGNOSIS: Right occipital scalp melanoma PATH: Malignant melanoma At least T2a 1.5 mm depth with positive margin 6 mitosis BRAF V600K/R variant. CURRENT TX: Cycle #3 adjuvant,(total cycle #4) pembrolizumab on 11/14/2023 Cycle #1, adjuvant pembrolizumab on 10/04/2023 Wide local excision and sentinel lymph node [...] N1c Cycle #1, adjuvant pembrolizumab on 10/04/2023 Cycle #2 adjuvant pembrolizumab on 10/15/2023 Cycle #3 adjuvant pembrolizumab on 11/14/2023 History of psoriatic arthritis over 20 years [...] options. INTERVAL HISTORY: Patient presents today for 3rd cycle of adjuvant pembrolizumab. Excision of scalp lesion and lymph node with Dr. Preciado on 09/16/2023. Lymph node negative for metastatic disease but positive with microsatellitosis. She is presenting for ongoing treatment with pembrolizumab. She seems to be tolerating treatment well. No abdominal pain, fever, chills. Does report that her tattoo on her lower rightleg has been intermittently raised on the line work. She does report that it does itch when this happens but resolves on its own. Reports joint pain in right hand, and bilateral wrists. Patient states her wrist pain is intermittent. Left knee pain has resolved. No rashes or other skin changes. REVIEW [...] 9.72) performed by Castro Preciado MD at [facility] MAIN OR PRO BX/REMV, LYMPH NODE, DEEP CERV Right 09/16/2023 BIOPSY OR EXCISION OF LYMPH NODE(S), OPEN, DEEP CERVICAL NODES (WRVU 6.74) performed by Castro Preciado MD at [facility] MAIN OR PRO RADICAL RESECT OF TUMOR, SOFT TISSUE FACE OR SCALP, 2CM OR GREATER Right 09/16/2023 RADICAL RESECTION TUMOR SCALP; >2 CM (WRVU 15.26) performed by Castro Preciado MD at [facility] MAIN OR PRO SPLIT GRFT, HEAD, FAC, HAND, FEET <100SQCM Right 09/28/2023 SPLIT THICKNESS SKIN SPLIT GRAFT,100SQ CM OR LESS, NECK (WRVU 10.15) performed by Castro Preciado MD at [facility] MAIN OR TUBAL LIGATION MEDS: FLUoxetine, ascorbic [...] acute distress. in good mood and spirits BP 115/72 (Patient Position: Sitting) Pulse 66 Temp 36.2 ??C (97.2 ??F) (Temporal) Resp 18 Ht 161.3 cm (5' 3.5) Wt 70.6 kg (155 lb 10.3 oz) SpO2 100% BMI 27.14 kg/m?? Eyes: Not icteric, not injected Oral: Not examined Neck: Supple. No obvious palpable lymphadenopathy. Lungs: Bilaterally clear to auscultation, No wheezing, No crackles Heart: Regular rate and rhythm. Abdomen: Soft, no tenderness, no mass, normal active bowel sounds. Extremities: No edema. Skin: No obvious rash Surgical site well healed Neuro: No focal weakness LABS: Unremarkable CBCD and CMP Unremarkable thyroid function test LDH 165 IMAGING STUDIES: Brain MRI on 08/01/2023 Negative [...] pembrolizumab until Jun 2024. Surgical wound is healing well. Patient is still following with surgery for wound care. Patient will call if worsening symptoms or increased joint pain. Right now it is manageable and effected area has changed since last visit. Patient is interested in doing treatment every 6 weeks. We will start today with the higher dose ofpembrolizumab. If we need to in the future we can drop down to q3 weeks. Vicky Burnham APRN Labs locally in 3 weeks RTC in 6 weeks with labs and infusion, and 12 weeks with labs, CT, and infusion documented in this encounter Miscellaneous Notes * Addendum Note - Sharath Parra MD - 11/14/2023 8:45 AM EDTAddended by: SHARATH PARRA on: 11/15/2023 05:43 PM Modules accepted: Orders documented in this encounter Plan of Treatment Upcoming Encounters Date Type Department Care Team (Late st Contact Info) Description 12/20/2023 2:15 PM EDT Office Visit Dermatology at [address] [address] Inderjit Vilchis MD [facility] DR GIL[facility]ERT[facility] [place] [address] 12/22/2023 10:00 AM EDT Office [place] [address] Norm Joy PA [facility] [place] [address] 12/26/2023 11:45 AM EDT Appointment Hematology [place] [address] 12/26/2023 12:45 PM EDT Office Visit Hematology [place] [address] Sharath Parra MD [facility] DR [place] [address] Vicky Burnham APRN [facility] [place] [address] 12/26/2023 2:30 PM EDT Appointment Hematology [place] [address] 02/06/2024 10:00 AM EDT Appointment Hematology [place] [address] 02/06/2024 12:45 PM EDT Office Visit [place]ematology [place] [address] Sharath Parra MD [facility] [address] [place] [address] Vicky Burnham CALCULATOR OPERATOR [facility] [place] [address] 02/06/2024 2:00 PM EDT Appointment [place]ematology [place] [address] Scheduled Orders Name Type Priority Associated Diagnoses Orde r Schedule Comprehensive metabolic panel (non-fasting) Lab STAT Malignant melanoma of scalp Medication management Expected: 12/05/2023 (Approximate), Expires: 05/17/2025 documented as of this encounter Visit Diagnoses Diagnosis Malignant melanoma of scalp- Primary Malignant melanoma of skin of scalp and neck Secondary malignancy of soft tissue Medication management Encounter for long-term (current) use of other medications Immunotherapy Reserved for inherently not codable concepts WITHOUT codable children documented in this encounter Care Teams Summer Analyst Relationship Specialty Start Date End Date Taylor Bryant, CALCULATOR OPERATOR [address] [place] [address] PCP - General 03/31/10 documented as of this encounter
--- OUTSIDE RECORDS SUMMARY | 2023-12-05 02:26 | XMS_ITS | Encounter Summary ---
Author Organization [facility] Address [facility] [place] [address] Care Team Providers Care Flour Inspector Name Role Phone Taylor Bryant APRN Primary Care Provider [phone] [phone] Reason for Visit * Reason Comments Follow-up Doing well, no kareem rns at this time. Encounter Details Date Type Department Care Team ([facility] st Contact Info) Description 10/24/2023 9:30 AM EDT Office Visit [place] [address] Norm Joy PA [facility] [place] [address] Malignant melanoma of scalp Social History Tobacco Use Types Packs/Day Years Used Date Smoking Tobacco: Former Smokeless Tobacco: Never Comments:quit at age 35 Alcohol Use Standard Drinks/Week Comments Yes 0 (1 standard drink = 0.6 oz pur e alcohol) social gatherings [facility] Utilities Answer Date Recorded In the past 12 months has [employer], gas, oil, or water [employer] threatened to shut off services in your [...] health care facility (including now)? No 07/24/2023 IPV Inpatient Questions [...] - - Weight 69.4 kg (153 lb) 10/24/2023 9:21 AM EDT Height 162.6 cm (5' 4) 10/24/2023 9:21 AM EDT Body Mass Index 26.26 10/24/2023 9:21 AM EDT documented in this encounter Progress Notes * Norm Joy PA - 10/24/2023 9:30 AM EDT [facility] [place] [place] OTOLARYNGOLOGY FOLLOW UP NOTE Keeley Gutierrez is [...] of Lymph Nodes Examined: 6 Number of [place] Nodes Examined: 0 Pathologic Stage Classification (pTNM, [...] of switching to adjuvant dabrafenib and trametinib. At her follow up on 10/13/23, she had no new difficulties. The bolster was removed, and there was good take of the STSG. She returns today for reassessment. She is also to see Dr. Peña today. New issues since last visit: Doing well. Just some itching. Only pain when doing too much activity. Minimal bleeding. No swelling. No redness. No fevers. Saw Dr. Peañ, and patient to undergo immunotherapy. PROBLEM LIST Patient Active Problem List Diagnosis [...] - Right posterior scalp excision site with xeroform in place; dressing removed healthy skin graft with 100% take;; no evidence of infection. Skin edge at incision along 8 o'clock aspect with some necrosis of ~6mm, and this was sharply debrided to healthy tissue below. - Thyroid gland without masses or asymmetry. - Trachea midline without deviation.. NEURO - Cranial nerves II-XII grossly intact and symmetric. - Responds appropriately to questions. PSYCHE - Normal mood and affect. LOWER EXTREMITIES - Right thigh allevyn site appears healthy, without evidence of infection. PROCEDURES Procedure: surgical site necrosis debridement Using adson forceps and iris scissors, the area of the necrosis was sharply debrided of devitalizedtissue. Some scant bleeding was elicited. The patient tolerated the procedure well. REVIEW OF IMAGES/STUDIES ASSESSMENT/RECOMMENDATIONS - Surgical sites healing well, without evidence of infection. Discussed her keeping both sites moist with aquaphor application twice per day, and returning to clinic in about 3-4 weeks for reassessment. - The patient expressed understanding of these points and agreement with the plan, and all questions that were asked were answered to the patient's satisfaction. Plan: > Return to clinic in 3-4 weeks for reassessment. > Surgical sites care as above. > Patient should call if their symptoms worsen, if new concerning symptoms arise, or if they have any questions or concerns regarding their treatment. I appreciate the opportunity to be involved in Ms. Gutierrez's care. Norm Joy PA-C [place], [place] [address] Office 10/24/2023 documented in this encounter Plan of Treatment Upcoming Encounters Date Type Department Care Team (Late st Contact Info) Description 12/20/2023 2:15 PM EDT Office Visit Dermatology at [facility] [address] [place] [address] Inderjit Vilchis MD [facility] DR GILBERTO [place] [address] 12/22/2023 10:00 AM EDT Office Visit [place] [address] Norm Joy PA [facility] [place] [address] 12/26/2023 11:45 AM EDT Appointment Hematology [place] [address] 12/26/2023 12:45 PM EDT Office Visit Hematology [place] [address] Jean-Pierre Peña MD [facility] DR HEMATOLOGY [place] [address] Vicky Burnham APRN [facility] [place] [address] 12/26/2023 2:30 PM EDT Appointment Hematology [place] [address] 02/06/2024 10:00 AM EDT Appointment Hematology [place] [address] 02/06/2024 12:45 PM EDT Office Visit Hematology [place] [address] Jean-Pierre Peña MD [facility] DR HEMATOLOGY [place] [address] Vicky Burnham APRN [facility] [place] [address] 02/06/2024 2:00 PM EDT Appointment Hematology [place] [address] documented as of this encounter Visit Diagnoses Diagnosis Malignant melanoma of scalp Malignant melanoma of skin of scalp and neck documented in this encounter Care Teams Flour Inspector Relationship Specialty Start Date End Date Taylor Bryant APRN [address] [place] [address] PCP - General 03/31/10 documented as of this encounter
--- OUTSIDE RECORDS SUMMARY | 2023-12-05 02:26 | XMS_ITS | Encounter Summary ---
Author Organization [facility] [place] [address] Care Team Providers Care Sports Commentator Name Role Phone Taylor Bryant APRN Primary Care Provider [phone] Encounter Details Date Type Department Care Team ([facility] st Contact Info) Description 11/16/2023 Telephone Hematology [place] [phone] Gianna Sanabria RN Social History Tobacco Use Types Packs/Day Years Used Date Smoking Tobacco: Former Smokeless Tobacco: Never Comments:quit at age 35 Alcohol Use Standard Drinks/Week Comments Yes 0 (1 standard drink = 0.6 oz pur e alcohol) social gatherings [facility] Utilities Answer Date Recorded In [...] place to sleep or slept in a residential (including now)? No 07/24/2023 IPV Inpatient Questions [...] Telephone Encounter - Gianna Sanabria RN - 11/16/2023 7:39 AM EDT Message received from [facility]:Please call patient in 2 weeks to assess symptoms, specifically joint pain documented in this encounter Plan of Treatment Upcoming Encounters Date Type Department Care Team (Late st Contact Info) Description 12/20/2023 2:15 PM EDT Office Visit Dermatology at [place] [address] [place] [address] Inderjit Vilchis MD [facility] DR GILBERTO [place] [address] 12/22/2023 10:00 AM EDT Office [place] [address] Norm Joy PA [facility] [place] [address] 12/26/2023 11:45 AM EDT Appointment Hematology and Oncology at [place] [address] 12/26/2023 12:45 PM EDT Office Visit Hematology and Oncology at [place] [address] Jean-Pierre Peña MD [facility] DR HEMATOLOGY [place] [address] Vicky Burnham APRN [facility] [place] [address] 12/26/2023 2:30 PM EDT Appointment Hematology and Oncology at [place] [address] 02/06/2024 10:00 AM EDT Appointment Hematology and Oncology at [place] [address] 02/06/2024 12:45 PM EDT Office Visit Hematology and Oncology at [place] [address] Jean-Pierre Peña MD [facility] DR HEMATOLOGY [place] [address] Vicky Burnham APRN [facility] [place] [address] 02/06/2024 2:00 PM EDT Appointment Hematology and Oncology at [address] documented as of this encounter Visit Diagnoses Not on filedocumented in this encounter Care Teams Sports Commentator Relationship Specialty Start Date End Date Taylor Bryant APRN [address] [place] [address] PCP - General 03/31/10 documented as of this encounter
--- OUTSIDE RECORDS SUMMARY | 2023-12-05 02:26 | XMS_ITS | Encounter Summary ---
Author Organization Formerly [facility] Address [facility] [place] [address] Care Team Providers Care Casket Assembler Metal Name Role Phone Taylor Bryant APRN Primary Care Provider [phone] [phone] Encounter Details Date Type Department Care Team (Latest Contact Info) Description 10/24/2023 7:28 AM EDT Hospital Encounter Hematology and Oncology at 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 No 07/24/2023 IPV Inpatient Questions [...] 2:15 PM EDT Office Visit Dermatology at [facility] [address] [place] [address] Inderjit Vilchis MD [facility] DR GILBERTO [place] [address] 12/22/2023 10:00 AM EDT Office Visit Otolaryngology at [place] [phone] Norm Joy PA [facility] [place] [address] 12/26/2023 11:45 AM EDT Appointment Hematology and Oncology at [place] [address] 12/26/2023 12:45 PM EDT Office Visit Hematology and Oncology at [place] [address] Jean-Pierre Peña MD [facility] [place] [address] Vicky Burnham APRN [facility] [place] [address] 12/26/2023 2:30 PM EDT Appointment Hematology and Oncology at [place] [phone] 02/06/2024 10:00 AM EDT Appointment Hematology and Oncology at [place] [address] 02/06/2024 12:45 PM EDT Office Visit Hematology and Oncology at [place] [address] Jean-Pierre Peña MD [facility] DR [place] [address] Vicky Burnahm APRN [facility] [place] [address] 02/06/2024 2:00 PM EDT Appointment Hematology and Oncology at [place] [address] documented as of this encounter Procedures Procedure Name Priority Date/Time Associated Diagnosis Comments HEMOGRAM STAT 10/24/2023 7:48 AM EDT Medication management 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, unspecified lymph node region DIFFERENTIAL, AUTOMATED STAT 10/24/2023 7:48 AM EDT Medication management [...] lymph node region HC LACTIC DEHYDROGENASE STAT 10/24/2023 7:48 AM EDT Medication management 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, unspecified lymph node region COMPREHENSIVE METABOLIC PANEL (NON-FASTING) STAT 10/24/2023 7:48 AM EDT Medication management 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, unspecified lymph node region documented in this encounter Results * (ABNORMAL) Differential, Automated (10/24/2023 7:48 AM EDT) Neutrophils % 62.4 % [facility] Neutr Abs (ANC) 4.09 1.70 - 6.10 x10(3)/mc L [facility] Lymphocytes % 21.8 % [facility] Lymphocytes Abs 1.4 0.9 - 3.2 x10(3)/mc L [facility] Monocytes % 9.2 % [facility] Monocyte Abs 0.6 0.3 - 0.9 x10(3)/mc L [facility] Eosinophils % 5.2 % [facility] Eosinophils Abs 0.3 0.0 - 0.4 x10(3)/[facility] Basophils % 0.6 % [facility] Basophils Abs 0.0 0.0 - 0.1 x10(3)/[facility] Immature Gran % 0.80 % [facility] Comment: Immature granulocytes(IG's)percentage and absolute count will include metamyelocytes, myelocytes, and promyelocytes. Blood smears from CBCs yielding IG's will be scanned manually for concordance. If this scan disagrees with the automated IG or if promyelocytes are noted, a manual differential will be performed. Funmi Gran Abs 0.05(H) 0.00 - 0.04 x10(3)/[facility] Blood 10/24/2023 7:48 AM EDT 10/24/2023 7:53 AM EDT Narrative Resulting Agency Comment Spec In Lab Jean-Pierre Peña MD HEMATOLOGY ORDERABLE S [facility] [place] [address] * (ABNORMAL) Hemogram (10/24/2023 7:48 AM EDT) WBC 6.6 4.0 - 9.5 x10(3)/[facility] RBC 3.86(L) 4.00 - 5.21 x10(6)/[facility] Hemoglobin 12.0 11.7 - 15.5 g/dL [facility] Hematocrit 35.5(L) 35.7 - 45.8 % [facility] MCV 92.0 82.6 - 94.4 fL [facility] MCH 31.1 27.1 - 32.0 pg [facility] MCHC 33.8 31.7 - 35.0 g/dL [facility] Platelets 312 145 - 357 x10(3)/[facility] RDWSD 48.1(H) 37.0 - 46.0 fL [facility] RDWCV 14.3(H) 11.5 - 14.1 % [facility] MPV 10.9 7.6 - 12.9 fL [facility] nRBC % Auto 0.0 % [facility] nRBC Abs Auto 0.000 0.000 - 0.000 x10(3)/mcL [facility] Blood 10/24/2023 7:48 AM EDT 10/24/2023 7:53 AM EDT Narrative Resulting Agency Comment Spec In Lab Jean-Pierre Peña MD HEMATOLOGY ORDERABLE S Performing Organization Address City/[facility]/ZIP Co de Phone Number [facility] [place] [address] * Lactate Dehydrogenase (10/24/2023 7:48 AM EDT) LDH 194 110 - 220 unit/L [facility] Blood 10/24/2023 7:48 AM EDT 10/24/2023 7:53 AM EDT Narrative Resulting Agency Comment Spec In Lab Jean-Pierre Peña MD CHEMISTRY ORDERABLES Performing Organization Address City/[facility] Co de Phone Number [facility] [place] [address] * T4, free (10/24/2023 7:48 AM EDT) Free T4 1.26 0.93 - 1.70 ng/dL [facility] Comment: Reference Interval (ng/dL): Females: ??First Trimester: 0.97-1.68 ??Second Trimester: 0.77-1.51 ??Third Trimester: 0.77-1.49 Blood 10/24/2023 7:48 AM EDT 10/24/2023 7:53 AM EDT Narrative Resulting Agency Comment Spec In Lab Jean-Pierre Peña MD CHEMISTRY ORDERABLES Performing Organization Address City/[facility]/ZIP Co de Phone Number [facility] [place] [address] * TSH (10/24/2023 7:48 AM EDT) TSH 0.89 0.27 - 4.20 mcIU/mL [facility] Comment: Reference Interval (mcIU/mL): Females: ??First Trimester: 0.23-3.88 ??Second Trimester: 0.22-3.90 ??Third Trimester: 0.44-4.66 Blood 10/24/2023 7:48 AM EDT 10/24/2023 7:53 AM EDT Narrative Resulting Agency Comment Spec In Lab Jean-Pierre Peña MD CHEMISTRY ORDERABLES Performing Organization Address [facility] Co de Phone Number [facility] [place] [address] * (ABNORMAL) Comprehensive metabolic panel (non-fasting) (10/24/2023 7:48 AM EDT) [facility] Glucose Lvl 99 65 - 199 mg/dL [facility] Comment:Diabetes: >=200 mg/d L plus symptoms BUN 27(H) 8 - 18 mg/dL [facility] Creatinine 0.88 0.70 - 1.20 mg/dL [facility] Sodium 139 135 - 145 mmol/L [facility] Potassium 4.3 3.5 - 5.0 mmol/L [facility] Comment: Please note: ??Patients with WBC >100,000 may have falsely elevated Potassium levels. ??For accurate Potassium quantification in these patients send serum separator tube (gold top) for subsequent determinations. ??Contact the Clinical Chemistry Laboratory if there are any questions. Chloride 105 98 - 107 mmol/L [facility] CO2 22 22 - 31 mmol/L [facility] Anion Gap 12 5 - 15 mmol/L [facility] Calcium 9.5 8.5 - 10.5 mg/dL [facility] Total Protein 6.8 6.1 - 8.0 g/dL [facility] Albumin 4.2 3.2 - 5.2 g/dL [facility] AST 25 0 - 30 unit/L [facility] ALT 31(H) 0 - 30 unit/L [facility] Alk Phos 92 35 - 105 unit/L [facility] Total Bilirubin 0.6 0.2 - 1.3 mg/dL [facility] Estimated GFR 76 >=60 mL/min/1. 73 m?? [facility] Comment: This patient's estimated [...] and symptoms in addition to eGFR. 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
--- OUTSIDE RECORDS SUMMARY | 2023-12-05 02:26 | XMS_ITS | Encounter Summary ---
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, unspecified lymph node region Procedures [id number] pembrolizumab (Keytruda) Jean-Pierre Peña MD [facility] [address] [place] [address] Jean-Pierre Peña MD [facility] [address] [place] [address] Referral ID Status Reason Start Date Expiration Date V isits Requested Visits Authorized [id number] Pending Review 07/25/2023 07/24/2024 99 99 Encounter Details Date Type Department Care Team (Latest Contact Info) Description 10/04/2023 10:28 AM EDT - 10/04/2023 11:59 PM EDT Hospital Encounter Hematology [place] [address] Medication management; Malignant melanoma of scalp; Malignant [...] as of this encounter Progress Notes * Jak Marks RN - 10/04/2023 2:13 PM EDT Patient Name: Keeley Gutierrez Patient Age: 58 y.o. Birthdate: 1965 Admit date: 10/04/2023 Attending Physician: No att. providers found Keeley Gutierrez, 58 y.o. female is here for an immunotherapy infusion of Pemnbrolizumab. Diagnosis: 1. Medication management 2. Malignant melanoma of scalp 3. 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 offers no complaints at this time. Reviewed plan of care for infusion visit, patient verbalized understanding of plan as outlined. O: Immunotherapy orders independently verified for correct drug name, route and dosage per patient's height, weight and BSA by Jak Marks RN, RN and onsite pharmacist. Immunotherapy administered per protocol. REACTIONS (DESCRIPTION, TIME, INTERVENTION AND EFFECTIVENESS) none A: Pt. Tolerated treatment with out issue. Keeley Gutierrez confirms that all questions and issueshave been addressed. P: Return to clinic as scheduled. documented in this encounter Plan of Treatment Upcoming Encounters Date Type Department Care Team (Late st Contact Info) Description 12/20/2023 2:15 PM EDT Office Visit Dermatology at [facility] [address] [place] [address] Inderjit Vilchis MD [facility] [address] GILBERT[address] [place] [address] 12/22/2023 10:00 AM EDT Office Visit [place] [address] Norm Joy PA [facility] [place] [address] 12/26/2023 11:45 AM EDT Appointment Hematology and Oncology at [place] [address] 12/26/2023 12:45 PM EDT Office Visit Hematology and Oncology at [place] [address] Jean-Pierre Peña MD [facility] [address] [place] [address] Vicky Burnham APRN [facility] [place] [address] 12/26/2023 2:30 PM EDT Appointment Hematology and Oncology at [place] [phone] 02/06/2024 10:00 AM EDT Appointment Hematology and Oncology at [address] 02/06/2024 12:45 PM EDT Office Visit Hematology and Oncology at [place] [phone] Jean-Pierre Peña MD [facility] [address] [place] [address] Vicky Burnham APRN [facility] [place] [address] 02/06/2024 2:00 PM EDT Appointment Hematology and Oncology at [place] [phone] documented as of this encounter Results * Lactate Dehydrogenase (10/04/2023 10:34 AM EDT) LDH 205 110 - 220 unit/L [facility] Blood 10/04/2023 10:3 4 AM EDT 10/04/2023 10:47 AM EDT Narrative Resulting Agency Comment Spec In Lab Jean-Pierre Peña MD CHEMISTRY ORDERABLES Performing Organization Address City/[facility] Co de Phone Number [facility] [place] [address] * T4, free (10/04/2023 10:34 AM EDT) Free T4 1.30 0.93 - 1.70 ng/dL [facility] Comment: Reference Interval (ng/dL): Females: ??First Trimester: 0.97-1.68 ??Second Trimester: 0.77-1.51 ??Third Trimester: 0.77-1.49 Blood 10/04/2023 10:3 4 AM EDT 10/04/2023 10:47 AM EDT Narrative Resulting Agency Comment Spec In Lab Jean-Pierre Peña MD CHEMISTRY ORDERABLES Performing Organization Address [facility] de Phone Number [facility] [place] [address] * TSH (10/04/2023 10:34 AM EDT) TSH 0.52 0.27 - 4.20 mcIU/mL [facility] Comment: Reference Interval (mcIU/mL): Females: ??First Trimester: 0.23-3.88 ??Second Trimester: 0.22-3.90 ??Third Trimester: 0.44-4.66 Blood 10/04/2023 10:3 4 AM EDT 10/04/2023 10:47 AM EDT Narrative Resulting Agency Comment Spec In Lab Jean-Pierre Peña MD CHEMISTRY ORDERABLES Performing Organization Address City/[facility]/ZIP Co de Phone Number [facility] [place] [address] * (ABNORMAL) Comprehensive metabolic panel (non-fasting) (10/04/2023 10:34 AM EDT) Glucose Lvl 114 65 - 199 mg/dL [facility] Comment:Diabetes: >=200 mg/d L plus symptoms BUN 23(H) 8 - 18 mg/dL [facility] Creatinine 0.76 0.70 - 1.20 mg/dL [facility] Sodium 140 135 - 145 mmol/L [facility] Potassium 4.2 3.5 - 5.0 mmol/L [facility] Comment: Please note: ??Patients with WBC >100,000 may have falsely elevated Potassium levels. ??For accurate Potassium quantification in these patients send serum separator tube (gold top) for subsequent determinations. ??Contact the Clinical Chemistry Laboratory if there are any questions. Chloride 106 98 - 107 mmol/L [facility] CO2 24 22 - 31 mmol/L [facility] Anion Gap 10 5 - 15 mmol/L [facility] Calcium 9.6 8.5 - 10.5 mg/dL [facility] Total Protein 7.0 6.1 - 8.0 g/dL [facility] Albumin 4.2 3.2 - 5.2 g/dL [facility] AST 27 0 - 30 unit/L [facility] ALT 46(H) 0 - 30 unit/L [facility] Alk Phos 167(H) 35 - 105 unit/L [facility] Total Bilirubin 0.4 0.2 - 1.3 mg/dL [facility] Estimated GFR 91 >=60 mL/min/1. 73 m?? [facility] Comment: This patient's estimated [...] In Lab Jean-Pierre Peña MD CHEMISTRY ORDERABLES [facility] [place] [address] documented in this encounter Visit Diagnoses Diagnosis [...] Action Date Dose Rate Site pembrolizumab (Keytruda) 200 mg in sodium chloride 0.9% 108 mL infusion 200 mg, Intravenous, ONCE, 1 dose, On Tue10/04/23 at 1345, Administer over 30 Minutes, Flush Line with NS after each dose, This agent is restricted to outpatient use. Is this drug being given as an outpatient? Yes New Bag 10/04/2023 1:15 PM EDT 200 mg 216 mL/hr documented in this encounter Care Teams Industrial Garage Servicer Relationship Specialty Start Date End Date Taylor Bryant APRN [address] [place] [address] PCP - General 03/31/10 documented as of this encounter
--- OUTSIDE RECORDS SUMMARY | 2023-12-05 02:26 | XMS_ITS | Encounter Summary ---
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 Procedures CT Neck Soft Tissue w Contrast (Generic) Jean-Pierre Parra MD [facility] [place] [address] [facility] [place] [address] Referral ID Status Reason Start Date Expiration Date Visits Requested Visits Authorized [id number] New Request Specialty Service Requested 10/11/2023 04/11/2025 1 1 * Diagnostic Test (Routine) - New Request Specialty Diagnoses / Procedures Referred By Contjono t Referred To Contact Radiology Diagnoses Malignant melanoma of scalp Procedures CT Chest Abdomen Pelvis w Contrast (Generic) Jean-Pierre Parra MD [facility] [address] [place] [address] [facility] [place] [address] Referral ID Status Reason Start Date Expiration Date Visits Requested Visits Authorized [id number] New Request Specialty Service Requested 10/11/2023 04/11/2025 1 1 Reason for Visit * Reason Comments Follow-up Encounter Details Date Type Department Care Team (Late st Contact Info) Description 10/04/2023 11:30 AM EDT Office Visit Hematology and Oncology at [facility] [place] [address] Jean-Pierre Parra MD [facility] HEMATOLOGY [place] [address] Malignant melanoma of scalp (Primary Dx); Secondary malignancy of soft tissue; Immunotherapy Social History Tobacco Use Types Packs/Day Years Used Date Smoking Tobacco: Former Smokeless Tobacco: Never Comments:quit at age 35 Alcohol Use Standard Drinks/Week Comments Yes 0 (1 standard drink = 0.6 oz pur e alcohol) social gatherings [facility] Utilities Answer Date Recorded In the past [...] Sign Reading Time Taken Comments Blood Pressure 120/70 10/04/2023 11:28 AM EDT Pulse 89 10/04/2023 11:28 AM EDT Temperature 36.4 ??C (97.5 ??F) 10/04/2023 11:28 AM E DT Respiratory Rate 16 10/04/2023 11:28 AM EDT Oxygen Saturation 97% 10/04/2023 11:28 AM EDT Inhaled Oxygen Concentration - - Weight 69.6 kg (153 lb 7 oz) 10/04/2023 11:28 AM EDT Height 163.6 cm (5' 4.41) 10/04/2023 11:28 AM E DT Body Mass Index 26 10/04/2023 11:28 AM EDT documented in this encounter Progress Notes * Paulino Staley MD - 10/04/2023 11:30 AM EDT Images from the original note were not included. [facility] NOTE REFERING PHYSICIAN: DIAGNOSIS: Right occipital scalp melanoma PATH: Malignant melanoma At least T2a 1.5 mm depth with positive margin 6 mitosis BRAF V600K/R variant. CURRENT TX: Cycle #1 adjuvant,(total cycle #3) pembrolizumab on 10/04/2023 Wide local excision and [...] 07/25/2023 to discuss treatment options. INTERVAL HISTORY: The patient is here to review surgical pathology result and start with adjuvant portion of pembrolizumab. She recently had excision of scalp lesion and lymph node with Dr. Preciado on 09/16/2023. Lymph nodenegative for metastatic disease but positive with microsatellitosis. She is presenting for ongoing treatment with pembrolizumab. She seems to be tolerating treatment well. No worsening arthralgias, abdominal pain, fever, chills. REVIEW OF SYSTEMS: Constitutional: No recent weight [...] 9.72) performed by Castro Preciado MD at [facility] MAIN OR PRO BX/REMV, LYMPH NODE, DEEP CERV Right 09/16/2023 BIOPSY OR EXCISION OF LYMPH NODE(S), OPEN, DEEP CERVICAL NODES (WRVU 6.74) performed by Castro Preciado MD at [facility] MAIN OR PRO RADICAL RESECT OF TUMOR, SOFT TISSUE FACE OR SCALP, 2CM OR GREATER Right 09/16/2023 RADICAL RESECTION TUMOR SCALP; >2 CM (WRVU 15.26) performed by Castro Preciado MD at [facility] MAIN OR PRO SPLIT GRFT, HEAD, FAC, HAND, FEET <100SQCM Right 09/28/2023 SPLIT THICKNESS SKIN SPLIT GRAFT,100SQ CM OR LESS, NECK (WRVU 10.15) performed by Castro Preciado MD at [facility] MAIN OR TUBAL LIGATION MEDS: FLUoxetine, [...] distress. in good mood and spirits BP 120/70 (Patient Position: Sitting) Pulse 89 Temp 36.4 ??C (97.5 ??F) (Temporal) Resp 16 Ht 163.6 cm (5' 4.41) Wt 69.6 kg (153 lb 7 oz) SpO2 97% BMI 26.00 kg/m?? Eyes: Not icteric, not injected Oral: Not examined Neck: Supple. No obvious palpable lymphadenopathy. Lungs: Bilaterally clear to auscultation, No wheezing, No crackles Heart: Regular rate and rhythm. Abdomen: Soft, no tenderness, no mass, normal active bowel sounds. Extremities: No edema. Swelling left knee visible from outside wearing jeans Skin: No obvious rash Surgical site noted on scalp nontender. No obvious discharge Neuro: No focal weakness LABS: Unremarkable CBCD and CMP except ALT 46 Unremarkable thyroid function test LDH 205 IMAGING STUDIES: Brain MRI on 08/01/2023 Negative [...] seen after 2doses pembrolizumab prior to surgery. Explained to her this is high risk for recurrence and highly recommend 1 year of pembro (June 2024) to decrease her risk of recurrence. Will need to monitor to ensure her baseline psoriatic arthritis does not worsen. She agrees with this plan Given the high risk nature of his cancer will repeat CT including neck in 4 months sometimes in January 2024. The patient was instructed to call us with any new symptoms or concerns. Paulino Staley MD PGY 4 Hem/Onc Fellow [facility] ATTENDING NOTE: The patient is recuperating well from surgery. Labs unremarkable. The role and concept of adjuvant pembrolizumab was reviewed with her again. Will proceed with Cycle #1 adjuvant pembrolizumab, cycle #3 total today. We will plan to repeat surveillance CT scan every 4 months for the first 2 years as long as she remains stable. I have seen and examined the patient by myself with Dr. Staley and agree with the above plans described. Jean-Pierre Parra MD documented in this encounter Miscellaneous Notes * Addendum Note - Jean-Pierre Parra MD - 10/04/2023 11:30 AM EDTAddended by: JEAN-PIERRE PARRA on: 10/11/2023 03:55 PM Modules accepted: Orders documented in this encounter Plan of Treatment Upcoming Encounters Date Type Department Care Team (Late st Contact Info) Description 12/20/2023 2:15 PM EDT Office Visit Dermatology at [facility] [address] [place] [address] Inderjit Vilchis MD [facility] DR [place] [address] 12/22/2023 10:00 AM EDT Office Visit [place] [address] Norm Joy PA [facility] OTOLARYNGOLOGY [place], [place] [phone] 12/26/2023 11:45 AM EDT Appointment Hematology [place] [address] 12/26/2023 12:45 PM EDT Office Visit Hematology [place] [address] Jean-Pierre Parra MD [facility] [address] [place] [address] Vicky Burnham APRN [facility] [place] [address] 12/26/2023 2:30 PM EDT Appointment Hematology [place] [address] 02/06/2024 10:00 AM EDT Appointment Hematology [place] [address] 02/06/2024 12:45 PM EDT Office Visit Hematology [place] [address] Jean-Pierre Parra MD [facility] DR HEMATOLOGY AND ONCOLOGY [place], [place] [phone] Vicky Burnham APRN [facility] [place] [place] [address] 02/06/2024 2:00 PM EDT Appointment Hematology [place] [address] Scheduled Orders Name Type Priority Associated Diagnoses Orde r Schedule CT Chest Abdomen Pelvis w Contrast (Generic) Imaging Routine Malignant melanoma of scalp Expected: 01/17/2024 (Approximate), Expires: 04/11/2025 CT Neck Soft Tissue w Contrast (Generic) Imaging Routine 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
--- OUTSIDE RECORDS SUMMARY | 2023-12-05 02:26 | XMS_ITS | Encounter Summary ---
Author Organization [facility] Address [facility] [place] [address] Care Team Providers Care Steamer Gum Candy Name Role Phone Taylor Bryant APRN Primary Care Provider [phone] [phone] Encounter Details Date Type Department Care Team (Latest Contact Info) Description 10/13/2023 Travel Social History Tobacco Use Types Packs/Day Years Used Date Smoking Tobacco: Former Smokeless Tobacco: Never Comments:quit at age 35 Alcohol Use Standard Drinks/Week Comments Yes 0 (1 standard drink = 0.6 oz pur e alcohol) social gatherings [facility] Utilities Answer Date Recorded In the [...] in a retirement (including now)? No 07/24/2023 IPV Inpatient Questions [...] 2:15 PM EDT Office Visit Dermatology at [address] [address] Inderjit Vilchis MD [facility] DR GILBERTO [place] [address] 12/22/2023 10:00 AM EDT Office Visit [place] [address] Norm Joy PA [facility] [address] 12/26/2023 11:45 AM EDT Appointment Hematology [place] [address] 12/26/2023 12:45 PM EDT Office Visit Hematology [place] [address] Jean-Pierre Peña MD [facility] HEMATOLOGY AND [place]OGY [place], [place] [phone] Vicky Burnham APRN [facility] [place] [address] 12/26/2023 2:30 PM EDT Appointment Hematology [place] [phone] 02/06/2024 10:00 AM EDT Appointment Hematology and Oncology at [place] [phone] 02/06/2024 12:45 PM EDT Office Visit Hematology and Oncology at [place] [phone] Jean-Pierre Peña MD [facility] DR [place] [address] Vicky Burnham APRN [facility] [place] [address] 02/06/2024 2:00 PM EDT Appointment Hematology and Oncology at [place] [phone] documented as of this encounter Visit Diagnoses Not on filedocumented in this encounter Care Teams Steamer Gum Candy Relationship Specialty Start Date End Date Taylor Bryant APRN [address] [place] [address] PCP - General 03/31/10 documented as of this encounter
--- OUTSIDE RECORDS SUMMARY | 2023-12-05 02:26 | XMS_ITS | Encounter Summary ---
Author Organization [facility] Address [facility] [place] [address] Care Team Providers Care Linoleum Tile Layer Name Role Phone Taylor Bryant APRN Primary Care Provider [phone] Encounter Details Date Type Department Care Team ([facility] st Contact Info) Description 09/28/2023 Notes Only Hematology and Oncology at [facility] [place] [address] Cheryl Daley, RN Social History Tobacco Use Types Packs/Day Years Used Date Smoking Tobacco: Former Smokeless Tobacco: Never Comments:quit at age 35 Alcohol Use Standard Drinks/Week Comments Yes 0 (1 standard drink = 0.6 oz pur e alcohol) social gatherings [facility] Utilities Answer Date Recorded In the past [...] place to sleep or slept in a longterm (including now)? No 07/24/2023 IPV Inpatient Questions [...] as of this encounter Progress Notes * Cheryl Daley RN - 09/28/2023 11:52 AM EDT Specialty Pharmacy notified patient will continue immunotherapy instead of switching to Tafinlar/Mekinist (message sent to Martha Matson RPH via secure chat.) documented in this encounter Plan of Treatment Upcoming Encounters Date Type Department Care Team (Late st Contact Info) Description 12/20/2023 2:15 PM EDT Office Visit [address]ermatology [address] [place] [address] Inderjit Vilchis MD [facility] DR GILBERTO [place] [address] 12/22/2023 10:00 AM EDT Office [place] [address] Norm Joy PA [facility] [place] [address] 12/26/2023 11:45 AM EDT Appointment Hematology and Oncology at [address] 12/26/2023 12:45 PM EDT Office Visit Hematology and Oncology at [place] [address] Jean-Pierre Peña MD [facility] DR HEMATOLOGY [place] [address] Vicky Burnham GRAFFITI CLEANER [facility] [place] [address] 12/26/2023 2:30 PM EDT Appointment Hematology and Oncology at [place] [address] 02/06/2024 10:00 AM EDT Appointment Hematology and Oncology at [place] [address] 02/06/2024 12:45 PM EDT Office Visit Hematology and Oncology at [place] [address] Jean-Pierre Peña MD [facility] DR HEMATOLOGY [place] [address] Vicky Burnham GRAFFITI CLEANER [facility] [place] [address] 02/06/2024 2:00 PM EDT Appointment Hematology and Oncology at [address] documented as of this encounter Visit Diagnoses Not on filedocumented in this encounter Care Teams Linoleum Tile Layer Relationship Specialty Start Date End Date Taylor Bryant APRN [address] [place] [address] PCP - General 03/31/10 documented as of this encounter
--- OUTSIDE RECORDS SUMMARY | 2023-12-05 02:26 | XMS_ITS | Encounter Summary ---
Author Organization [facility] Address [facility] [place] [address] Care Team Providers Care Manager Golf Name Role Phone Taylor Bryant APRN Primary Care Provider [phone] [phone] Encounter Details Date Type Department Care Team ([facility] st Contact Info) Description 10/04/2023 Telephone Otolaryngology at [facility] [place] [address] Funmi Apple RN Social History Tobacco Use Types Packs/Day Years Used Date Smoking Tobacco: Former Smokeless Tobacco: Never Comments:quit at age 35 Alcohol Use Standard Drinks/Week Comments Yes 0 (1 standard drink = 0.6 oz pur e alcohol) social gatherings [facility] Utilities Answer Date Recorded In the past 12 months has e electric, gas, oil, or water [employer] threatened to shut off services in your [...] encounter Miscellaneous Notes * Telephone Encounter - Funmi Apple RN - 10/04/2023 8:15 AM EDT Patient's call transferred to nurse triage line. Patient had surgery with Dr. Preciado on 09/27: ADJ.TISSUE TRANSFER, REARRANGEMENT, 10.1 TO 30 SQ.CM, SCALP (WRVU 9.72) SPLIT THICKNESS SKIN SPLIT GRAFT,100SQ CM OR LESS, NECK (WRVU 10.1 Patient states she was told to leave the bandage on until I see Dr. Preciado on , 10/05. She says she has bled through the bandage a bit. My friends dog jumped on the leg so this could havecaused it. In the meantime she says her boyfriend has reinforced the bandage. Informed patient as long as the site isn't actively bleeding (patient has denied) then it's ok leave as is/reinforce prn. Patient voices understanding and acceptance of this advice and will call back if any further questions or concerns. documented in this encounter Plan of Treatment Upcoming Encounters Date Type Department Care Team (Late st Contact Info) Description 12/20/2023 2:15 PM EDT Office Visit Dermatology at [facility] [place] [address] Inderjit Vilchis MD [facility] DR GILBERTO [place] [address] 12/22/2023 10:00 AM EDT Office [place] [phone] Norm Joy PA [facility] [place] [address] 12/26/2023 11:45 AM EDT Appointment Hematology [place] [address] 12/26/2023 12:45 PM EDT Office Visit Hematology [place] [address] Jean-Pierre Peña MD [facility] DR [place] [address] Vicky Burnham APRN [facility] [place] [address] 12/26/2023 2:30 PM EDT Appointment Hematology [place] [address] 02/06/2024 10:00 AM EDT Appointment Hematology [place] [address] 02/06/2024 12:45 PM EDT Office Visit Hematology [place] [address] Jean-Pierre Peña MD [facility] DR [place]AT[place] [address] Vicky Burnham APRN [facility] [address] 02/06/2024 2:00 PM EDT Appointment Hematology [place] [address] documented as of this encounter Visit Diagnoses Not on filedocumented in this encounter Care Teams Manager Golf Relationship Specialty Start Date End Date Taylor Bryant, ZARA [address] [place] [address] PCP - General 03/31/10 documented as of this encounter
--- OUTSIDE RECORDS SUMMARY | 2023-12-05 02:26 | XMS_ITS | Encounter Summary ---
Author Organization [facility] Address [facility] [place] [address] Care Team Providers Care Welding Machine Operator Electroslag Name Role Phone Taylor Bryant APRN Primary Care Provider [phone] [phone] Encounter Details Date Type Department Care Team ([facility] st Contact Info) Description 10/06/2023 Notes Only Hematology [place] [address] Luma Bernal, RD [facility] [place] [address] Social History Tobacco Use Types Packs/Day Years Used Date Smoking Tobacco: Former Smokeless Tobacco: Never Comments:quit at age 35 Alcohol Use Standard Drinks/Week Comments Yes 0 (1 standard drink = 0.6 oz pur e alcohol) social gatherings [facility] Utilities Answer Date Recorded In the [...] medical appointments or from getting medications? No 03/1 11/2023 In the past 12 months, has l [...] in a usp (including now)? No 07/24/2023 DH IPV Inpatient [...] as of this encounter Progress Notes * Luma Bernal RD - 10/06/2023 3:53 PM EDT [facility] Food Pantry Note Pt received food from the [facility] pantry today. It has been determined that the patient has food insecurity and/or dietary needs. The following action has been taken: Prescribed visit(s) to onsite Food is Medicine Service documented in this encounter Plan of Treatment Upcoming Encounters Date Type Department Care Team (Late st Contact Info) Description 12/20/2023 2:15 PM EDT Office Visit Dermatology at [facility] [address] [place] [address] Inderjit Vilchis MD [facility] DR GILBERTO [place] [address] 12/22/2023 10:00 AM EDT Office Visit Otolaryngology at [place] [phone] Norm Joy PA [facility] [place] [address] 12/26/2023 11:45 AM EDT Appointment Hematology and Oncology at [address] 12/26/2023 12:45 PM EDT Office Visit Hematology and Oncology at [place] [phone] Jean-Pierre Peña MD [facility] DR HEMATOLOGY [place] [address] Vicky Burnham APRN [facility] [place] [address] 12/26/2023 2:30 PM EDT Appointment Hematology and Oncology at [place] [phone] 02/06/2024 10:00 AM EDT Appointment Hematology and Oncology at [place] [phone] 02/06/2024 12:45 PM EDT Office Visit Hematology and Oncology at [place] [phone] Jean-Pierre Peña MD [facility] DR [place] [address] Vicky Burnham APRN [facility] [place] [address] 02/06/2024 2:00 PM EDT Appointment Hematology and Oncology at [place] [phone] documented as of this encounter Visit Diagnoses Not on filedocumented in this encounter Care Teams Welding Machine Operator Electroslag Relationship Specialty Start Date End Date Taylor Bryant APRN [address] [place] [address] PCP - General 03/31/10 documented as of this encounter
--- OUTSIDE RECORDS SUMMARY | 2023-12-05 02:26 | XMS_ITS | Encounter Summary ---
Author Organization [facility] Address [facility] [place] [address] Care Team Providers Care Business Continuity Planning Director Name Role Phone Taylor Bryant APRN Primary Care Provider [phone] [phone] Encounter Details Date Type Department Care Team ([facility] st Contact Info) Description 10/25/2023 Telephone Hematology [place] [phone] Roselyn Sánchez Social History Tobacco Use Types Packs/Day Years Used Date Smoking Tobacco: Former Smokeless Tobacco: Never Comments:quit at age 35 Alcohol Use Standard Drinks/Week Comments Yes 0 (1 standard drink = 0.6 oz pur e alcohol) social gatherings [facility] Utilities Answer Date Recorded In the [...] * Telephone Encounter - Roselyn Sánchez - 10/25/2023 2:52 PM EDT [facility] Market Research Consultant spoke to Keeley to notify her that [facility] awarded a $150 [employer] gift card. Roselyn Sánchez documented in this encounter Plan of Treatment Upcoming Encounters Date Type Department Care Team (Late st Contact Info) Description 12/20/2023 2:15 PM EDT Office Visit Dermatology at [address] [address] Inderjit Vilchis MD [facility] DR GILBERTO STERLING[place] [address] 12/22/2023 10:00 AM EDT Office [place] [address] Norm Joy PA [facility] [place] [address] 12/26/2023 11:45 AM EDT Appointment Hematology and Oncology at [place] [address] 12/26/2023 12:45 PM EDT Office Visit Hematology and Oncology at [place] [address] Jean-Pierre Peña MD [facility] [place] [address] Vicky Burnham APRN [facility] [place] [address] 12/26/2023 2:30 PM EDT Appointment Hematology and Oncology at [place] [address] 02/06/2024 10:00 AM EDT Appointment Hematology and Oncology at [place] [address] 02/06/2024 12:45 PM EDT Office Visit Hematology and Oncology at [place] [address] eJan-Pierre Peña MD [facility] [place] [address] Vicky Burnham [employer] [facility] [place] [address] 02/06/2024 2:00 PM EDT Appointment Hematology and Oncology at [place] [address] documented as of this encounter Visit Diagnoses Not on filedocumented in this encounter Care Teams Business Continuity Planning Director Relationship Specialty Start Date End Date Taylor Bryant APRN [address] [place] [address] PCP - General 03/31/10 documented as of this encounter
--- OUTSIDE RECORDS SUMMARY | 2023-12-05 02:26 | XMS_ITS | Encounter Summary ---
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, unspecified lymph node region Procedures [id number] pembrolizumab (Keytruda) Jean-Pierre Peña MD [facility] DR HEMATOLOGY [place] [address] Jean-Pierre Peña MD [facility] DR HEMATOLOGY [place] [address] Referral ID Status Reason Start Date Expiration Date V isits Requested Visits Authorized [id number] Pending Review 07/25/2023 07/24/2024 99 99 Encounter Details Date Type Department Care Team (Latest Contact Info) Description 10/24/2023 7:29 AM EDT - 10/24/2023 11:59 PM EDT Hospital Encounter Hematology [place] [address] Medication management; Malignant melanoma of scalp; Malignant [...] place to sleep or slept in a intermediate (including now)? No 07/24/2023 DH IPV Inpatient [...] as of this encounter Progress Notes * Tegan Gorman RN - 10/24/2023 10:55 AM EDT TIME TREATMENT STARTED: 1029 TIME TREATMENT ENDED: 1125 Keeley Gutierrez, 58 y.o. female with diagnosis of malignant melanoma of the scalp is here for chemotherapy infusion of pembrolizumab. PROTOCOL: N/A CYCLE: 4 DAY: 1 S: Keeley offers no complaints at this time. Immunotherapy checks performed per policy. Reviewed plan of care for Infusion visit, patient verbalized understanding of plan as outlined. Patient discharged to home. O: Ynes's immunotherapy orders independently verified for correct drug name, route and dosage per patient's height, weight and BSA by Tegan Gorman RN and Pharmacist. REACTIONS (DESCRIPTION, TIME, INTERVENTION AND EFFECTIVENESS) None noted. A: Pt. tolerated treatment well. Keeley Gutierrez confirms that all questions and issues have beenaddressed. P: Return to clinic per routine. documented in this encounter Plan of Treatment Upcoming Encounters Date Type Department Care Team (Late st Contact Info) Description 12/20/2023 2:15 PM EDT Office Visit Dermatology at [place] [address] [place] [address] Inderjit Vilchis MD [facility] DR GILBERTO [place] [address] 12/22/2023 10:00 AM EDT Office [place] [address] Norm Joy PA [facility] [address] 12/26/2023 11:45 AM EDT Appointment Hematology and Oncology at [place] [address] 12/26/2023 12:45 PM EDT Office Visit Hematology and Oncology at [place] [address] Jean-Pierre Peña MD [facility] DR HEMATOLOGY [place] [address] Vicky Burnham APRN [facility] [place] [address] 12/26/2023 2:30 PM EDT Appointment Hematology and Oncology at [place] [phone] 02/06/2024 10:00 AM EDT Appointment Hematology and Oncology at [place] [phone] 02/06/2024 12:45 PM EDT Office Visit Hematology and Oncology at [place] [address] Jean-Pierre Peña MD [facility] DR HEMATOLOGY [place] [address] Vicky Burnham APRN [facility] [place] [address] 02/06/2024 2:00 PM EDT Appointment Hematology and Oncology at [address] documented as of this encounter Results * Lactate Dehydrogenase (10/24/2023 7:48 AM EDT) LDH 194 110 - 220 unit/L [facility] Blood 10/24/2023 7:48 AM EDT 10/24/2023 7:53 AM EDT Narrative Resulting Agency Comment Spec In Lab Jean-Pierre Peña MD CHEMISTRY ORDERABLES Performing Organization Address City/[facility]/ZIP Co de Phone Number [facility] [place] [address] * T4, free (10/24/2023 7:48 AM EDT) Free T4 1.26 0.93 - 1.70 ng/dL [facility] Comment: Reference Interval (ng/dL): Females: ??First Trimester: 0.97-1.68 ??Second Trimester: 0.77-1.51 ??Third Trimester: 0.77-1.49 Blood 10/24/2023 7:48 AM EDT 10/24/2023 7:53 AM EDT Narrative Resulting Agency Comment Spec In Lab Jean-Pierre Peña MD CHEMISTRY ORDERABLES Performing Organization Address [facility]/ZIP Co de Phone Number [facility] [place] [address] * TSH (10/24/2023 7:48 AM EDT) [facility] TSH 0.89 0.27 - 4.20 mcIU/mL [facility] Comment: Reference Interval (mcIU/mL): Females: ??First Trimester: 0.23-3.88 ??Second Trimester: 0.22-3.90 ??Third Trimester: 0.44-4.66 Blood 10/24/2023 7:48 AM EDT 10/24/2023 7:53 AM EDT Narrative Resulting Agency Comment Spec In Lab Jean-Pierre Peña MD CHEMISTRY ORDERABLES Performing Organization Address City/[facility]/ZIP Co de Phone Number [facility] [place] [address] * (ABNORMAL) Comprehensive metabolic panel (non-fasting) (10/24/2023 7:48 AM EDT) Glucose Lvl 99 65 - 199 mg/dL [facility] Comment:Diabetes: >=200 mg/d L plus symptoms BUN 27(H) 8 - 18 mg/dL [facility] Creatinine 0.88 0.70 - 1.20 mg/dL [facility] Sodium 139 135 - 145 mmol/L [facility] Potassium 4.3 3.5 - 5.0 mmol/L [facility] Comment: Please note: ??Patients with WBC >100,000 may have falsely elevated Potassium levels. ??For accurate Potassium quantification in these patients send serum separator tube (gold top) for subsequent determinations. ??Contact the Clinical Chemistry Laboratory if there are any questions. Chloride 105 98 - 107 mmol/L [facility] CO2 22 22 - 31 mmol/L [facility] Anion Gap 12 5 - 15 mmol/L [facility] Calcium 9.5 8.5 - 10.5 mg/dL [facility] Total Protein 6.8 6.1 - 8.0 g/dL [facility] Albumin 4.2 3.2 - 5.2 g/dL [facility] AST 25 0 - 30 unit/L [facility] ALT 31(H) 0 - 30 unit/L [facility] Alk Phos 92 35 - 105 unit/L [facility] Total Bilirubin 0.6 0.2 - 1.3 mg/dL [facility] Estimated GFR 76 >=60 mL/min/1. 73 m?? [facility] Comment: This patient's estimated GFR [...] In Lab Jean-Pierre Peña MD CHEMISTRY ORDERABLES [facility] [place] [address] documented in this encounter Visit Diagnoses Diagnosis [...] 200 mg, Intravenous, ONCE, 1 dose, On 10/24/23 at 1130, Administer over 30 Minutes, Flush Line with NS after each dose, This agent is restricted to outpatient use. Is this drug being given as an outpatient? Yes New Bag 10/24/2023 10:51 AM EDT 200 mg 21 6 mL/hr documented in this encounter Care Teams Executive Manager Relationship Specialty Start Date End Date Taylor Bryant APRN [address] [place] [id number] PCP - General 03/31/10 documented as of this encounter
--- OUTSIDE RECORDS SUMMARY | 2023-12-05 02:27 | XMS_ITS | Encounter Summary ---
Author Organization [facility] Address [facility] [place] [address] Care Team Providers Care Catering Coordinator Name Role Phone Taylor Bryant APRN Primary Care Provider [phone] Encounter Details Date Type Department Care Team (Latest Contact Info) Description 08/23/2023 Travel Social History Tobacco Use Types Packs/Day Years Used Date Smoking Tobacco: Former Smokeless Tobacco: Never Comments:quit at age 35 Alcohol Use Standard Drinks/Week Comments Yes 0 (1 standard drink = 0.6 oz pur e alcohol) social gatherings [facility] Utilities Answer Date Recorded In [...] in a retirement (including now)? No 07/24/2023 Sex and Gender Information Value Date Recorded Sex Assigned at Not on file Gender Identity Not on file Sexual Orientation Not on file documented as of this encounter Plan of Treatment Upcoming Encounters Date Type Department Care Team (Late st Contact Info) Description 12/20/2023 2:15 PM EDT Office Visit Dermatology at [facility] [address] [place] [address] Inderjit Vilchis MD [facility] DR GILBERTO [place] [address] 12/22/2023 10:00 AM EDT Office Visit [place] [address] Norm Joy PA [facility] [place] [address] 12/26/2023 11:45 AM EDT Appointment Hematology [place] [address] 12/26/2023 12:45 PM EDT Office Visit Hematology [place] [address] Jean-Pierre Peña MD [facility] DR HEMATOLOGY [place] [address] Vicky Burnham APRN [facility] [place] [address] 12/26/2023 2:30 PM EDT Appointment Hematology [place] [address] 02/06/2024 10:00 AM EDT Appointment Hematology [place] [address] 02/06/2024 12:45 PM EDT Office Visit Hematology [place] [address] Jean-Pierre Peña MD [facility] DR HEMATOLOGY [place] [address] Vicky Burnham APRN [facility] [place] [address] 02/06/2024 2:00 PM EDT Appointment Hematology [place] [address] documented as of this encounter Visit Diagnoses Not on filedocumented in this encounter Care Teams Catering Coordinator Relationship Specialty Start Date End Date Taylor Bryant, GUIDANCE DIRECTOR [address] [place] [address] PCP - General 03/31/10 documented as of this encounter
--- OUTSIDE RECORDS SUMMARY | 2023-12-05 02:27 | XMS_ITS | Encounter Summary ---
Author Organization [facility] Address [facility] [place] [address] Care Team Providers Care Harness Installer Name Role Phone Taylor Bryant APRN Primary Care Provider [phone] Encounter Details Date Type Department Care Team ([facility] st Contact Info) Description 09/28/2023 Orders Only Hematology [place] [address] Jean-Pierre Peña MD [facility] DR HEMATOLOGY [place] [address] Social History Tobacco Use Types Packs/Day Years [...] 2:15 PM EDT Office Visit Dermatology at [place] [address] [place] [address] Inderjit Vilchis MD [facility] DR GILBERTO STERLING[place] [address] 12/22/2023 10:00 AM EDT Office Visit [place] [address] Norm Joy PA [facility] [place] [address] 12/26/2023 11:45 AM EDT Appointment Hematology [place] [address] 12/26/2023 12:45 PM EDT Office Visit Hematology [place] [address] Jean-Pierre Peña MD [facility] DR HEMATOLOGY [place] [address] Vicky Burnham APRN [facility] [place] [address] 12/26/2023 2:30 PM EDT Appointment Hematology and Oncology at [place] [address] 02/06/2024 10:00 AM EDT Appointment Hematology [place] [address] 02/06/2024 12:45 PM EDT Office Visit Hematology and Oncology at [place] [phone] Jean-Pierre Peña MD [facility] DR HEMATOLOGY [place] [address] Vicky Burnham DAIRY NUTRITION CONSULTANT [facility] [place] [address] 02/06/2024 2:00 PM EDT Appointment Hematology and Oncology at [place] [phone] documented as of this encounter Visit Diagnoses Not on filedocumented in this encounter Care Teams Harness Installer Relationship Specialty Start Date End Date Taylor Bryant APRN [address] [place] [address] PCP - General 03/31/10 documented as of this encounter
--- OUTSIDE RECORDS SUMMARY | 2023-12-05 02:27 | XMS_ITS | Encounter Summary ---
Author Organization [facility] Address [facility] [place] [address] Care Team Providers Care Evaporator Supervisor Name Role Phone Taylor Bryant APRN Primary Care Provider [phone] Encounter Details Date Type Department Care Team ([facility] st Contact Info) Description 09/28/2023 Notes Only Hematology and Oncology at [facility] [place] [address] Brianne German RN Social History Tobacco Use Types Packs/Day Years Used Date Smoking Tobacco: Former Smokeless Tobacco: Never Comments:quit at age 35 Alcohol Use Standard Drinks/Week Comments Yes 0 (1 standard drink = 0.6 oz pur e alcohol) social gatherings [facility] Utilities Answer Date Recorded In [...] as of this encounter Progress Notes * Brianne German RN - 09/28/2023 10:43 AM EDT Triage Note: Triage note to follow up on patient's treatment plan after final pathology: per Dr. Peña pendingfinal path results to make a decision to continue pembro VS switch to dab trametinib. If needed, Tafinlar copay is $11.20 and Tafinlar is $0.[address] Peña 09/28/23: Will continue immunotherapy instead of switching to dabrafenib and trametinib No triage needs at this time. documented in this encounter Plan of Treatment Upcoming Encounters Date Type Department Care Team (Late st Contact Info) Description 12/20/2023 2:15 PM EDT Office Visit Dermatology at [facility] [address] [place] [address] Inderjit Vilchis MD [facility] DR GILBERTO [place] [address] 12/22/2023 10:00 AM EDT Office Visit Otolaryngology at [place] [address] Norm Joy PA [facility] [place] [address] 12/26/2023 11:45 AM EDT Appointment Hematology and Oncology at [place] [address] 12/26/2023 12:45 PM EDT Office Visit Hematology and Oncology at [place] [address] Jean-Pierre Peña MD [facility] [place] [address] Vicky Burnham APRN [facility] [place] [place] [address] 12/26/2023 2:30 PM EDT Appointment Hematology and Oncology at [address] 02/06/2024 10:00 AM EDT Appointment Hematology and Oncology at [address] 02/06/2024 12:45 PM EDT Office Visit Hematology and Oncology at [address] Jean-Pierre Peña MD [facility] DR [place] [address] Vicky Burnham APRN [facility] [place] [address] 02/06/2024 2:00 PM EDT Appointment Hematology [place] [address] documented as of this encounter Visit Diagnoses Not on filedocumented in this encounter Care Teams Evaporator Supervisor Relationship Specialty Start Date End Date Taylor Bryant APRN [address] [place] [address] PCP - General 03/31/10 documented as of this encounter
--- OUTSIDE RECORDS SUMMARY | 2023-12-05 02:27 | XMS_ITS | Encounter Summary ---
Author Organization [facility] [place] [address] Care Team Providers Care Sewing Machine Attachment Tester Name Role Phone Taylor Bryant APRN Primary Care Provider [phone] Reason for Visit * Auth/Cert (Routine) Specialty Diagnoses / Procedures Referred By Crista padron Referred To Contact Diagnoses Melanoma of scalp melanoma scalp Procedures PRO ADJ TISS TRANSFER SCALP, EXTREM 10.1-30 PRO FULL THICK GRFT NOS, EAR, LID <20SQCM ADJ.TISSUE TRANSFER, REARRANGEMENT, 10.1 TO 30 SQ.CM, SCALP (WRVU 9.72) FULL THICKNESS GRAFT,FREE, W/ DIRECT CLOSURE DONOR SITE, 20SQ CM OR LESS, EYELIDS (WRVU 11.64) Justa Preciado MD [facility] [place] [address] [facility] Referral ID Status Reason Start Date Expiration Date Visits Re quested Visits Authorized [id number] 1 1 Encounter Details Date Type Department Care Team (Late st Contact Info) Description 09/28/2023 9:45 AM EDT - 09/28/2023 1:30 PM EDT [place] [phone] Justa Preciado MD [facility] [place] [address] ADJ.TISSUE TRANSFER, REARRANGEMENT, 10.1 TO 30 SQ.CM, SCALP (WRVU 9.72) Social History Tobacco Use Types Packs/Day Years [...] place to sleep or slept in a fci (including now)? No 07/24/2023 DH IPV Inpatient [...] Sign Reading Time Taken Comments Blood Pressure 131/76 09/28/2023 8:42 AM EDT Pulse 87 09/28/2023 8:42 AM EDT Temperature 36.8 ??C (98.2 ??F) 09/28/2023 8:42 AM ED T Respiratory Rate 16 09/28/2023 8:42 AM EDT Oxygen Saturation 97% 09/28/2023 8:42 AM EDT Inhaled Oxygen Concentration - - Weight 70.8 kg (156 lb) 09/28/2023 8:42 AM EDT Height 165.1 cm (5' 5) 09/28/2023 8:42 AM EDT Body Mass Index 25.96 09/28/2023 8:42 AM EDT documented in this encounter Discharge Instructions * Discharge Instructions* Cassie Philippe RN - 09/28/2023 3:57 PM EDT You received Tylenol 975 mg at 4:15 PM today. Scopolamine Patch Discharge Instructions You are wearing a scopolamine patch. This is a medication patch used to prevent and treat nausea and vomiting after surgery. The patch is located: behind your right ear behind your left ear Please follow these instructions while you are wearing the patch. Try not to touch the patch. If you do touch the patch, wash your hands right away. Make sure to remove all traces of medicationfrom your hands. If the medication gets on your hands and then you touch your eyes, your vision may become blurry oryour pupils may widen. These are both normal and temporary reactions; they will go away shortly. Remove the patch on morning evening. There will still be some active ingredients on the patch, so fold it in half (with the sticky sidestogether) and throw it in the trash. This will help prevent others from coming into contact with it. After removing the patch, carefully wash your hands and behind your ear (or wherever the patch was placed) with soap and water. If you have not urinated in 6-8 hours after your surgery, remove the patch and call your surgeon. If you have any questions or concerns: Call the Same Day Program 8a-5pm Tuesday-Tuesday. All other times, call [phone] and ask for the anesthesiologist front desk team member. POST ANESTHESIA INSTRUCTIONS Go home, rest, use caution on stairs. Change positions slowly. Do not smoke if you are alone. Diet light to regular as tolerated today. If nausea occurs start with clear liquids and progress slowly. No driving, operating machinery, alcoholic beverages and no important decisions for 24 hours. Monitor IV site for signs and symptoms of infection: increasing redness, swelling, foul drainage, if occurs contact M.D. Patients who have had endotrachial tubes (this tube, used by anesthesia department, is passed down your throat after you are asleep, to ensure safe air passage during your operation). A sore throat is normal due to the tube. Cold liquids or soothing lozenges will help ease the discomfort. The generalized muscle aches are due to the medication given to you just before the tube is inserted. As the medication wears off, you may develop muscle soreness, which usually goes away in 12-24 hours. * Patient Instructions* Justa Preciado MD - 09/28/2023 2:15 PM EDT Instructions for Patient at Discharge: What to expect: You will have soreness which will improve over the next several days. The area around the incision may be numb. This should recover over the next few months. Medications: Pain Control - use acetaminophen (Tylenol) around the clock, on a scheduled basis, every 6 hours. After 24 hours you can also add ibuprofen (Motrin, Advil) as needed. You can take 500 mg to 1000 mg of Tylenol every 4-6 hours as needed. Do not exceed 4g acetaminophenper day and do not drink alcohol while taking tylenol. You can also take 400 to 600 mg of Ibuprofen (Motrin,Advil) every 6 hours as needed. Do not excees 2400mg of ibuprofen in a 24 hour period. Incision Care: Your incision was closed with absorbable sutures. These sutures do not need to be removed. The suture will dissolve and the knot will fall off in the next 1-2 weeks. Use diluted peroxide to clean theincision and apply Aquaphor/Vaseline twice daily. Keep the incision dry for the next two days. After that you may get the area wet and pat dry. Wound Care: Change the wound dressing/packing according to the following instructions: Bolster Dressing: Keep the dressing in place and keep it moist by applying Aquaphor ointment twice a day to the bolster site. Do not get this area wet. It is okay to shower, just do not get water in to the area with the bolster. RIGHT leg Allevyn dressing: Keep the dressing dry as much as possible. You may reinforce the dressing around the edges if necessary with tape. It is expected that there will be a change in the color of the dressing (it looks like there is blood underneath). Activity: A good rule of thumb is if it hurts don't do it. Keep your head elevated when lying flat. No heavy lifting or straining for the next week. No smoking, this is important for wound healing. Diet: Resume baseline diet today Your follow up visits: Future Appointments Date Time Provider Department Center 10/04/2023 10:30 AM LABORATORY, [facility] INF [address] [place] [address] 10/04/2023 11:30 AM Jean-Pierre Peña MD [facility] [facility] 10/04/2023 1:00 PM [facility] INFUSION THERAPY [facility] [address] [place] [address] 10/06/2023 1:40 PM Justa Preciado MD [facility] KEVIN [facility] 10/24/2023 7:45 AM LABORATORY, [facility] [address] [place] [address] 10/24/2023 8:45 AM Jean-Pierre Peña MD [facility] 10/24/2023 10:00 AM [facility] INFUSION THERAPY [facility] [address] [place] [address] 11/14/2023 7:45 AM LABORATORY, [facility] [address] [address] 11/14/2023 8:45 AM Jean-Pierre Peña MD [facility] 11/14/2023 10:00 AM LE[facility] INFUSION THERAPY [facility] [address] [address] 12/20/2023 2:15 PM Inderjit Vilchis MD [facility] documented in this encounter Medications at Time of Discharge [...] mouth daily. documented as of this encounter H&P Notes * Justa Preciado MD - 09/28/2023 11:06 AM EDT OTOLARYNGOLOGY - HEAD & NECK SURGERY INTERVAL H&P NOTE Name: Keeley Gutierrez Age/Sex: 58 y.o. female Attending: Justa Preciado MD Hospital Day: 1 Day of Surgery Interval History Keeley Gutierrez is a 58 y.o. with history of scalp melanoma s/p WLE with SLNB on 09/16/23 who is here for closure of the defect with likely STSG. There have been no changes to her history. Physical Exam Patient Vitals for the past 24 hrs: Temp Pulse Resp BP SpO2 O2 Device 09/28/23 0842 36.8 ??C (98.2 ??F) 87 16 131/76 97 % RA Gen: No acute distress, alert and answers questions appropriately CV: Regular rate Pulm: Unlabored breathing Abd: Abdomen soft and non-tender Ext: No peripheral edema ASSESSMENT & PLAN Plan for OR as above. Consent signed, dated, placed in chart. We reviewed the risks, benefits and alternatives to the procedure at length and the patient expressed understanding and agreed to proceed. Ok to proceed with scheduled operation. Lena Aviles MD, PGY3 09/28/2023 11:06 AM Pager #[phone] ENT Team Pager: [phone] documented in this encounter Miscellaneous Notes * Op Note - Justa Preciado MD - 09/28/2023 12:22 PM EDT [facility] Operative Note Patient Name: Keeley Gutierrez : [id number] MR#: [id number] Case Date: 09/28/2023 Surgeon: Surgeons and Role: * Justa Preciado MD - Primary * Lena Aviles MD - Resident - Assisting Preoperative diagnosis: melanoma scalp Postoperative diagnosis: melanoma scalp Procedure(s) (LRB): ADJ.TISSUE TRANSFER, REARRANGEMENT, 10.1 TO 30 SQ.CM, SCALP (WRVU 9.72) (Right) SPLIT THICKNESS SKIN SPLIT GRAFT,100SQ CM OR LESS, NECK (WRVU 10.15) (Right) Anesthesia: General Estimated Blood Loss: 15 mL Specimens removed during surgery: None Drains: * No LDAs found * Surgical Closure: Primary Closure - skin incision is closed but with open spaces for wires, matthieu, drains or other devices Disposition: awakened from anesthesia, extubated and taken to the recovery room in a stable condition, having suffered no apparent untoward event. 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 She is being taken to the operating room for reconstruction of the defect which lies at the right occipital region. Procedure Description: After the patient was identified, she is brought to the operating room and placed in supine position. General anesthesia is maintained and then the bed is turned 180 degrees from anesthesia. A timeout is completed. We then shave a portion of the occipital scalp in order to allow us to perform a posterior and inferior advancement of the nuchal skin as well as prepping the supraclavicular skin as well as the right anterior thigh for split-thickness harvest. The surgical sites were then prepped and draped in a standard fashion. The defect measures 6 cm x 6 cm and is ovoid in shape. Local anesthesia is delivered to the marginsof the excision. We then proceeded to freshen these margins and at that point plan the inferiorly based advancement flap. A 7-1/2 cm incision is marked out on the superior neck and incised with a #10blade down to the deep muscles of the neck. We remained superficial to these and then start elevating a pedicled cutaneous flap, based on the posterior cervical vessels. We carefully dissected the underlying fascia to protect the vascular supply. Once the flap is fully elevated, it is then advanced in the medial and superior direction and reduces the defect by about 25%. The Vicryl's are then used with 2-0 Vicryl's for the deeper portions of the fascia and the subcutaneous tissues and closing the skin margins using surgical hemanth. The defect at that point is 4 and half centimeters by 6 cm. We decided to harvest a split-thicknessskin graft from the right thigh. The dermatome is used and a depth of 16-1000 of an inch. We soak the area of the harvest of the full- thickness skin graft and then the dermatome is used at full powerto elevate the split-thickness skin graft. Hemostasis is achieved with topical adrenaline soaked Telfa pad. The skin graft is then properly oriented and placed in the surgical defect after multiple areas arepinkish and in order to allow for egress of fluids. We we arranged the graft to fill the residual defect by carefully reapproximating both the deep and superficial portions with rearrangements. This is closed with multiple 3-0 and 4-0 chromic sutures. Once the graft is stabilized, we prepped an additional 8 radial chromic's in order to create her bolster dressings. The bolster is created by placing a Adaptic in the depth of the wound followed by using a surgical sponge which is wrapped in Xeroform. The bolster is put in place. An allevyn dressing is then placed on the skin donor site. The care of the patient is then transferred to anesthesia which is reversed and the patient is thenextubated and transferred to the same-day area. Surgical Infection Prevention Bundle Used? No Attestation: Case Date: 09/28/2023 I was present and I participated during the entire procedure (does not need to include opening and closing). JUSTA PRECIADO MD 09/28/2023 documented in this encounter Plan of Treatment Upcoming Encounters Date Type Department Care Team (Late st Contact Info) Description 12/20/2023 2:15 PM EDT Office Visit Dermatology at [facility] [address] [place] [address] Inderjit Vilchis MD [facility] DR GILBERTO [place] [address] 12/22/2023 10:00 AM EDT Office Visit Otolaryngology at [address] Norm Joy PA [facility] [place] [address] 12/26/2023 11:45 AM EDT Appointment Hematology and Oncology at [place] [phone] 12/26/2023 12:45 PM EDT Office Visit Hematology and Oncology at [place] [phone] Jean-Pierre Peña MD [facility] [place] [address] Vicky Burnham APRN [facility] [place] [address] 12/26/2023 2:30 PM EDT Appointment Hematology and Oncology at [place] [phone] 02/06/2024 10:00 AM EDT Appointment Hematology and Oncology at [place] [phone] 02/06/2024 12:45 PM EDT Office Visit Hematology and Oncology at [place] [phone] Jean-Pierre Peña MD [facility] [place] [address] Vicky Burnham APRN [facility] [place] [address] 02/06/2024 2:00 PM EDT Appointment Hematology and Oncology at [facility], operated [facility] [phone] documented as of this encounter Procedures Procedure Name Priority Date/Time Associated Diagnosis Comments SPLIT THICKNESS SKIN SPLIT GRAFT,100SQ CM OR LESS, NECK Routine 09/28/2023 1:43 PM EDT ADJ.TISSUE TRANSFER, REARRANGEMENT, 10.1 TO 30 SQ.CM, SCALP Routine 09/28/2023 1:42 PM EDT Split Grft, Head, Fac, Hand, Feet <100Sqcm ([id number]) 09/28/2023 11:43 AM EDT melanoma scalp Adj Tiss Transfer Scalp, Extrem 10.1-30 ([id number]) 09/28/2023 11:43 AM EDT melanoma scalp documented in this encounter Visit Diagnoses Not on filedocumented in this encounter Administered Medications Inactive Administered Medications - up to 3 most recent administrations Medication Order MAR Action Action Date Dose Rate Site acetaminophen (Tylenol) tablet 975 mg 975 mg, Oral, EVERY 8 HOURS, First dose on Tue09/28/23 at 1445, Until Discontinued, Maximum dose of acetaminophen is 4,000 mg from all sources in 24 hours. When ordered for pain, acetaminophen should be given even when other ordered pain medications are indicated. Begin oral analgesics when WATER QUALITY TECHNICIAN is discontinued., Routine Given 09/28/2023 4:16 PM EDT 975 mg fentaNYL (pf) (50 mcg/mL) multi-dose injection 25 mcg 25 mcg, Intravenous, EVERY 5 MIN PRN, Starting on Tue09/28/23 at 1342, Until Tue09/28/23 at 1702, Pain, Moderate to severe pain (6-10 out of 10), Hold for respiratory rate less than 10 per minute. Maximum dose 200 mcg over one hour, including OR administration. If ordered with HYDROmorphone or morphine, give HYDROmorphone or morphine first and use fentaNYL for breakthrough pain., PACU Recovery, Routine Given 09/28/2023 2:30 PM EDT 25 mcg lactated ringers infusion 1,000 mL, at 100 mL/hr, Intravenous, CONTINUOUS, Starting on Tue09/28/23 at 0900, Until Tue09/28/23 at 1702, Day of Surgery (Day of Procedure) Restarted 09/28/2023 11:42 AM EDT New Bag 09/28/2023 9:07 AM EDT 1,000 mLs 100 mL/hr lidocaine-EPINEPHrine (pf) (1% - 1:200,000) injection PRN, Starting on Tue09/28/23 at 1222, Until Tue09/28/23 at 1904, Intra-Operative (Intra-Procedure), Routine Given 09/28/2023 1:04 PM EDT 15 mLs 19- Surgical Site Given 09/28/2023 12:28 PM EDT 6 mLs 1 9- Surgical Site Given 09/28/2023 12:22 PM EDT 9 mLs 1 9- Surgical Site scopolamine (Transderm-Scop) 1 mg over 3 days patch 1 patch 1 patch, Transdermal, Administer over 24 Hours, ONCE, 1 dose, On Tue09/28/23 at 0900, Day of Surgery (Day of Procedure), Routine Patch Applied 09/28/2023 9:07 AM EDT 1 patch 01- Ear Behind (Left) documented in this encounter Active and Recently Administered Medications Times are shown in EDT. Scheduled Medication Order 09/26/2023 09/27/2023 09/28/2023 acetaminophen (Tylenol) tablet 975 mg 975 mg, Oral, EVERY 8 HOURS, First dose on Tue09/28/23 at 1445, Until Discontinued, Maximum dose of acetaminophen is 4,000 mg from all sources in 24 hours. When ordered for pain, acetaminophen should be given even when other ordered pain medications are indicated. Begin oral analgesics when WATER QUALITY TECHNICIAN is discontinued., Routine 1616 (Given - Provid er: Cassie Philippe RN) ceFAZolin (Ancef) 2 g vial attach to sodium chloride 0.9% 100 mL Mini-Bag Plus (COMPLETED) 2 g, Intravenous, ONCE, 1 dose, On Tue09/28/23 at 1130, Administer over 30 Minutes, Day of Surgery (Day of Procedure), Indication for (Active or Suspected): Prophylaxis 1159 (New Bag - Prov ider: Jessica Rios) scopolamine (Transderm-Scop) 1 mg over 3 days patch 1 patch 1 patch, Transdermal, Administer over 24 Hours, ONCE, 1 dose, On Tue09/28/23 at 0900, Day of Surgery (Day of Procedure), Routine 0907 (Patch Applied - Provider: Babar Bar RN)1704 (Due: Patch Removed - Provider: Automatic Discharge Provider - Comment: Time automatically adjusted from order being discontinued) Continuous Medication Order 09/26/2023 09/27/2023 09/28/2023 lactated ringers infusion (CANCELED) 1,000 mL, at 100 mL/hr, Intravenous, CONTINUOUS, Starting on Tue09/28/23 at 0900, Until Tue09/28/23 at 1702, Day of Surgery (Day of Procedure) 0907 (New Bag - Prov ider: Babar Bar RN)1141 (Paused - Provider: Jessica Rios - Comment: Switch to gravity)1142 (Restarted - Provider: Jessica Rios)1157 (Anesthesia Volume Adjustment - Provider: Jessica Rios)1339 (Anesthesia Volume Adjustment - Provider: Jessica Rios) PRN Medication Order 09/26/2023 09/27/2023 09/28/2023 fentaNYL (pf) (50 mcg/mL) multi-dose injection 25 mcg (CANCELED)(Linked Group 1) 25 mcg, Intravenous, EVERY 5 MIN PRN, Starting on Tue09/28/23 at 1342, Until Tue09/28/23 at 1702, Pain, Moderate to severe pain (6-10 out of 10), Hold for respiratory rate less than 10 per minute. Maximum dose 200 mcg over one hour, including OR administration. If ordered with HYDROmorphone or morphine, give HYDROmorphone or morphine first and use fentaNYL for breakthrough pain., PACU Recovery, Routine 1430 (Given - Provid er: Buddy Brownlee RN) lidocaine-EPINEPHrine (pf) (1% - 1:200,000) injection (CANCELED) PRN, Starting on Tue09/28/23 at 1222, Until Tue09/28/23 at 1904, Intra-Operative (Intra-Procedure), Routine 1222 (Given - Provid er: Justa Preciado MD)1228 (Given - Provider: Justa Preciado MD)1304 (Given - Provider: Justa Preciado MD - Comment: topical) Linked Groups Order Group 1: fentaNYL (pf) (50 mcg/mL) multi-dose injection 12.5 mcg (CANCELED) 12.5 mcg, Intravenous, EVERY 5 MIN PRN, Starting on Tue09/28/23 at 1342, Until Tue09/28/23 at 1702, Pain, Mild to moderate pain (1-5 out of 10), Hold for respiratory rate less than 10 per minute. Maximum dose 200 mcg over one hour, including OR administration. If ordered with HYDROmorphone or morphine, give HYDROmorphone or morphine first and use fentaNYL for breakthrough pain., PACU Recovery, Routine Or fentaNYL (pf) (50 mcg/mL) multi-dose injection 25 mcg (CANCELED)Jump to med 25 mcg, Intravenous, EVERY 5 MIN PRN, Starting on Tue09/28/23 at 1342, Until Tue09/28/23 at 1702, Pain, Moderate to severe pain (6-10 out of 10), Hold for respiratory rate less than 10 per minute. Maximum dose 200 mcg over one hour, including OR administration. If ordered with HYDROmorphone or morphine, give HYDROmorphone or morphine first and use fentaNYL for breakthrough pain., PACU Recovery, Routine documented in this encounter Care Teams Sewing Machine Attachment Tester Relationship Specialty Start Date End Date Taylor Bryant APRN [address] [place] [id number] PCP - General 03/31/10 documented as of this encounter
--- OUTSIDE RECORDS SUMMARY | 2023-12-05 02:27 | XMS_ITS | Encounter Summary ---
Author Organization [facility] Address [facility] [place] [address] Care Team Providers Care Reagent Tender Helper Name Role Phone Taylor Bryant APRN Primary Care Provider [phone] Encounter Details Date Type Department Care Team (Latest Contact Info) Description 09/06/2023 Travel Social History Tobacco Use Types Packs/Day Years Used Date Smoking Tobacco: Former Smokeless Tobacco: Never Comments:quit at age 35 Alcohol Use Standard Drinks/Week Comments Yes 0 (1 standard drink = 0.6 oz pur e alcohol) social gatherings [facility] Utilities Answer Date Recorded In the [...] in a [facility] (including now)? No 07/24/2023 Sex and Gender Information Value Date Recorded Sex Assigned at Not on file Gender Identity Not on file Sexual Orientation Not on file documented as of this encounter Plan of Treatment Upcoming Encounters Date Type Department Care Team (Late st Contact Info) Description 12/20/2023 2:15 PM EDT Office Visit Dermatology at [facility] [address] [place] [address] Inderjit Vilchis MD [facility] DR GILBERTO [place] [address] 12/22/2023 10:00 AM EDT Office Visit [place] [address] Norm Joy PA [facility] [place] [place] [address] 12/26/2023 11:45 AM EDT Appointment Hematology [place] [address] 12/26/2023 12:45 PM EDT Office Visit Hematology [place] [address] Jean-Pierre Peña MD [facility] DR [place] [address] Vicky Burnham APRN [facility] [place] [address] 12/26/2023 2:30 PM EDT Appointment Hematology [place] [phone] 02/06/2024 10:00 AM EDT Appointment Hematology [place] [address] 02/06/2024 12:45 PM EDT Office Visit Hematology [place] [address] Jean-Pierre Peña MD [facility] DR [place] [address] Vicky Burnham APRN [facility] [place] [address] 02/06/2024 2:00 PM EDT Appointment Hematology [place] [address] documented as of this encounter Visit Diagnoses Not on filedocumented in this encounter Care Teams Reagent Tender Helper Relationship Specialty Start Date End Date Taylor Bryant, SERVICE STATION MANAGER [address] [place] [address] PCP - General 03/31/10 documented as of this encounter
--- OUTSIDE RECORDS SUMMARY | 2023-12-05 02:27 | XMS_ITS | Encounter Summary ---
Author Organization [facility] Address [facility] [place] [address] Care Team Providers Care Car Conditioner Name Role Phone Taylor Bryant APRN Primary Care Provider [phone] [phone] Reason for Visit * Reason Comments Specialty Pharmacy Review Eugenet jazz alfonso Encounter Details Date Type Department Care Team (Late st Contact Info) Description 09/12/2023 Specialty Pharmacy Pharmacy at [facility] [place] [phone] Tegan Mcnamara, ELECTRICAL INSTALLATION SUPERVISOR Social History Tobacco Use Types Packs/Day Years [...] in a longterm (including now)? No 07/24/2023 Sex and Gender Information Value Date Recorded Sex Assigned at Not on file Gender Identity Not on file Sexual Orientation Not on file documented as of this encounter Progress Notes * Tegan Mcnamara - 09/12/2023 11:59 PM EDT The [facility] has completed a benefits investigation for Keeley Gutierrez to review their eligibility to fill at [facility]. Per patient's medication list they are prescribed Mekinist 2mg tablet and the medication is able to be filled at the [facility]. The patient is eligible to fill the medication through Specialty pharmacy with a $0 copay. No PArequired. The patient is not starting therapy at this time. documented in this encounter Plan of Treatment Upcoming Encounters Date Type Department Care Team (Late st Contact Info) Description 12/20/2023 2:15 PM EDT Office Visit Dermatology at [facility] [address] [place] [address] Inderjit Vilchis MD [facility] DR GILBERTO [place] [address] 12/22/2023 10:00 AM EDT Office Visit [place] [address] Norm Joy PA [facility] [place] [place] [address] 12/26/2023 11:45 AM EDT Appointment Hematology and Oncology at [place] [phone] 12/26/2023 12:45 PM EDT Office Visit Hematology and Oncology at [place] [phone] Jean-Pierre Peña MD [facility] DR HEMATOLOGY [place] [address] Vicky Burnham STEAM SHOVEL OPERATOR [facility] [place] [address] 12/26/2023 2:30 PM EDT Appointment Hematology and Oncology at [place] [phone] 02/06/2024 10:00 AM EDT Appointment Hematology and Oncology at [place] [address] 02/06/2024 12:45 PM EDT Office Visit Hematology and Oncology at [place] [address] Jean-Pierre Peña MD [facility] DR HEMATOLOGY [place] [address] Vicky Burnham STEAM SHOVEL OPERATOR [facility] [place] [address] 02/06/2024 2:00 PM EDT Appointment Hematology and Oncology at [address] documented as of this encounter Visit Diagnoses Not on filedocumented in this encounter Care Teams Car Conditioner Relationship Specialty Start Date End Date Taylor Bryant APRN [address] [place] [address] PCP - General 03/31/10 documented as of this encounter
--- OUTSIDE RECORDS SUMMARY | 2023-12-05 02:27 | XMS_ITS | Encounter Summary ---
Author Organization [facility] Address [facility] [place] [address] Care Team Providers Care Tube Wrapper Name Role Phone Taylor Bryant APRN Primary Care Provider [phone] [phone] Encounter Details Date Type Department Care Team (Latest Contact Info) Description 09/11/2023 Travel Social History Tobacco Use Types Packs/Day Years Used Date Smoking Tobacco: Former Smokeless Tobacco: Never Comments:quit at age 35 Alcohol Use Standard Drinks/Week Comments Yes 0 (1 standard drink = 0.6 oz pur e alcohol) social gatherings [facility] Utilities Answer Date Recorded In the [...] in a residential (including now)? No 07/24/2023 Sex and Gender Information Value Date Recorded Sex Assigned at Not on file Gender Identity Not on file Sexual Orientation Not on file documented as of this encounter Plan of Treatment Upcoming Encounters Date Type Department Care Team (Late st Contact Info) Description 12/20/2023 2:15 PM EDT Office Visit Dermatology at [facility] [address] [place] [address] Inderjit Vilchis MD [facility] DR GILBERTO [place] [address] 12/22/2023 10:00 AM EDT Office [place] [address] Norm Joy PA [facility] [place] [address] 12/26/2023 11:45 AM EDT Appointment [place] [address] 12/26/2023 12:45 PM EDT Office Visit [place] [address] Jean-Pierre Peña MD [facility] DR [place] [address] Vicky Burnham APRN [facility] [place] [address] 12/26/2023 2:30 PM EDT Appointment [place]ology [place] [phone] 02/06/2024 10:00 AM EDT Appointment [place] [address] 02/06/2024 12:45 PM EDT Office Visit [place] [address] Jean-Pierre Peña MD [facility] DR [place] [address] Vicky Burnham APRN [facility] [place] [address] 02/06/2024 2:00 PM EDT Appointment [place]ology [place] [address] documented as of this encounter Visit Diagnoses Not on filedocumented in this encounter Care Teams Tube Wrapper Relationship Specialty Start Date End Date Taylor Bryant, MUSEUM SPECIALIST [address] [place] [address] PCP - General 03/31/10 documented as of this encounter
--- OUTSIDE RECORDS SUMMARY | 2023-12-05 02:27 | XMS_ITS | Encounter Summary ---
[place] [address] Care Team Providers Care School Coordinator Name Role Phone Taylor Bryant APRN Primary Care Provider [phone] Reason for Referral * Diagnostic Test (Routine) - Closed Specialty Diagnoses / Procedures Referred By Crista padron Referred To Contact Radiology Diagnoses Malignant melanoma of scalp Procedures NM Lymphoscintigraphy w Imaging Melanoma or Skin Cancer Castro Preciado MD [facility] [place] [address] [place] [address] Referral ID Status Reason Start Date Expiration Date V isits Requested Visits Authorized [id number] Closed Specialty Service Requested 08/18/2023 02/16/2025 1 1 Reason for Visit * Auth/Cert (Routine) Specialty Diagnoses / Procedures Referred By Crista padron Referred To Contact Diagnoses Melanoma melanoma Procedures PRO EXC SKIN MALIG 3.1-4CM REMAINDR BODY PRO BX/REMV, LYMPH NODE, DEEP CERV EXC MALIGNANT LESION, 3.1. TO 4.0CM, SCALP (WRVU 3.62) BIOPSY OR EXCISION OF LYMPH NODE(S), OPEN, DEEP CERVICAL NODES (WRVU 6.74) Castro Preciado MD [facility] [place] [address] [facility] Referral ID Status Reason Start Date Expiration Date Visits Re quested Visits Authorized [id number] 1 1 Encounter Details Date Type Department Care Team (Latest Contact Info) Description 09/16/2023 7:59 AM EDT Hospital Encounter Nuclear Medicine at [facility] [place] [address] Castro Preciado MD [facility] [place] [address] Malignant melanoma of scalp Discharge Disposition: Home Social History Tobacco Use Types Packs/Day Years Used Date Smoking Tobacco: Former Smokeless Tobacco: Never Comments:quit at age 35 Alcohol Use Standard Drinks/Week Comments Yes 0 (1 standard drink = 0.6 oz pur e alcohol) social gatherings [facility] Utilities Answer Date Recorded In the past [...] in a prison (including now)? No 07/24/2023 DH IPV Inpatient Questions Answer Date Recorded Does Anyone Try to Keep You From Having Contact with Others or Doing Things Outside Your Home? no 09/16/2023 Feels Threatened by Someone no 09/06 Feels Unsafe at Home or Work/School no 09/16/2023 Physical Signs of Abuse Present no 09/16/2023 Sex and Gender Information Value Date Recorded [...] Capsule Take 40 mg by mouth daily. 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 Take approximately 12 hours apart on an empty stomach at least 1 hour before or 2 hours after a meal. Call clinic before starting medication. 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 Take on an empty stomach. Call clinic before starting medication. 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 30 tablet 11 08/23/2023 09/28/2023 documented as of this encounter Plan of Treatment Upcoming Encounters Date Type Department Care Team (Late st Contact Info) Description 12/20/2023 2:15 PM EDT Office Visit Dermatology at [facility] [address] [place] [address] Inderjit Vilchis MD [facility] DR GILBERT[place] [address] 12/22/2023 10:00 AM EDT Office Visit Otolaryngology at [place] [address] Norm Joy PA [facility] [place] [address] 12/26/2023 11:45 AM EDT Appointment Hematology and Oncology at [address] 12/26/2023 12:45 PM EDT Office Visit Hematology and Oncology at [place] [address] Jean-Pierre Peña MD [facility] [address] [place] [address] Vicky Burnham APRN [facility] [place] [address] 12/26/2023 2:30 PM EDT Appointment Hematology and Oncology at [address] 02/06/2024 10:00 AM EDT Appointment Hematology and Oncology at [place] [phone] 02/06/2024 12:45 PM EDT Office Visit Hematology and Oncology at [address] Jean-Pierre Peña MD [facility] DR [place] [address] Vicky Burnham APRN [facility] [place] [address] 02/06/2024 2:00 PM EDT Appointment Hematology and Oncology at [place] [phone] documented as of this encounter Procedures Procedure Name Priority Date/Time Associated Diagnosis Comments NM LYMPHOSCINTIGRAPHY WITH IMAGING MELANOMA OR SKIN CANCER Routine 09/16/2023 9:54 AM EDT Malignant melanoma of scalp documented in this encounter Results * NM Lymphoscintigraphy w Imaging Melanoma or Skin Cancer (09/16/2023 9:54 AM EDT) WORKSTATION ID [id number] RAD Anatomical Region Laterality Modality Nuclear Medicine Impressions 09/16/2023 12:37 PM EDT Allison lymph nodes in the right levels 2 and 5 regions as above. Thank you for letting us participate in the care of this patient. ??If you are a health care provider and have any questions regarding this report, please contact the number below. ??For patients who have questions please contact the health healthcare insurance sales agent that requested your imaging first. ? Electronically signed by: Esa Sprague MD, [facility] ([phone]), at 09/16/2023 12:37 PM Narrative 09/16/2023 12:37 PM EDT EXAMINATION: NM [...] right level 5 (axial image 28). IMPRESSION Allison lymph nodes in the right levels 2 and 5 regions as above. Thank you for letting us participate in the care of this patient. If youare a health care provider and have any questions regarding this report,please contact the number below. For patients who have questions please contactthe health healthcare insurance sales agent that requested your imaging first. 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
--- OUTSIDE RECORDS SUMMARY | 2023-12-05 02:27 | XMS_ITS | Encounter Summary ---
Author Organization [facility] Address [facility] [place] [address] Care Team Providers Care Public Employment Mediator Name Role Phone Taylor Bryant APRN Primary Care Provider [phone] Encounter Details Date Type Department Care Team ([facility] st Contact Info) Description 09/14/2023 Telephone Hematology [place] [phone] Roselyn Sánchez Social History Tobacco Use Types Packs/Day Years Used Date Smoking Tobacco: Former Smokeless Tobacco: Never Comments:quit at age 35 Alcohol Use Standard Drinks/Week Comments Yes 0 (1 standard drink = 0.6 oz pur e alcohol) social gatherings [facility] Utilities Answer Date Recorded In the past [...] * Telephone Encounter - Roselyn Sánchez - 09/14/2023 12:26 PM EDT [facility] spoke to Keeley and sent [facility] food pantry order to [employer] for delivery on 10/03 at 3pm. Roselyn Sánchez documented in this encounter Plan of Treatment Upcoming Encounters Date Type Department Care Team (Late st Contact Info) Description 12/20/2023 2:15 PM EDT Office Visit Dermatology at [address] [place] [address] Inderjit Vilchis MD [facility] DR GILBERTO [place] [address] 12/22/2023 10:00 AM EDT Office [place] [phone] Norm Joy PA [facility] [place] [address] 12/26/2023 11:45 AM EDT Appointment Hematology [place] [address] 12/26/2023 12:45 PM EDT Office Visit [place]ematology [place] [address] Jean-Pierre Peña MD [facility] DR H[place]AT[place] [address] Vicky Burnham APRN [facility] [place] [address] 12/26/2023 2:30 PM EDT Appointment Hematology and Oncology at [place] [phone] 02/06/2024 10:00 AM EDT Appointment Hematology and Oncology at [place] [phone] 02/06/2024 12:45 PM EDT Office Visit Hematology and Oncology at [place] [phone] Jean-Pierre Peña MD [facility] DR [place] [address] Vicky Burnham PROFESSOR OF FOOD BIOCHEMISTRY [facility] [place] [address] 02/06/2024 2:00 PM EDT Appointment Hematology and Oncology at [place] [phone] documented as of this encounter Visit Diagnoses Not on filedocumented in this encounter Care Teams Public Employment Mediator Relationship Specialty Start Date End Date Taylor Bryant APRN [address] [place] [address] PCP - General 03/31/10 documented as of this encounter
--- OUTSIDE RECORDS SUMMARY | 2023-12-05 02:27 | XMS_ITS | Encounter Summary ---
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, unspecified lymph node region Procedures [id number] pembrolizumab (Keytruda) Jean-Pierre Peña MD [facility] [place] [address] Jena-Pierre Peña MD [facility] [place] [address] Referral ID Status Reason Start Date Expiration Date V isits Requested Visits Authorized [id number] Pending Review 07/25/2023 07/24/2024 99 99 Encounter Details Date Type Department Care Team (Latest Contact Info) Description 09/12/2023 7:35 AM EDT - 09/12/2023 11:59 PM EDT Hospital Encounter Hematology [place] [address] Medication management; Malignant melanoma of scalp; Malignant [...] place to sleep or slept in a jail (including now)? No 07/24/2023 Sex and Gender [...] V600K mutation 30 tablet 11 08/23/2023 09/28/2023 Ibuprofen 200 mg Capsule Take 600 mg by mouth 2 times daily as needed. documented as of this encounter Progress Notes * Keri Johnson RN - 09/12/2023 11:37 AM EDT Patient Name: Keeley Gutierrez Patient Age: 58 y.o. Birthdate: 1965 Admit date: 09/12/2023 Attending Physician: No att. providers found TIME TREATMENT STARTED: 1030 TIME TREATMENT ENDED: 1135 Keeley Gutierrez, 58 y.o. female with diagnosis of Right occipital scalp melanoma is here for chemotherapy infusion of pembrolizumab. CYCLE: 2 DAY: 1 S: Pt. Reports some left knee pain today. States this bothers her occassionally, takes advil with good effect. O: Chemotherapy orders independently verified for correct drug name, route and dosage per patient'sheight, weight and BSA by Mina MENENDEZ and onsite pharmacist REACTIONS (DESCRIPTION, TIME, INTERVENTION AND EFFECTIVENESS) none A: Pt. Tolerated treatment well. Keeley Gutierrez confirms that all questions and issues have beenaddressed. P: Return to clinic per routine. documented in this encounter Plan of Treatment Upcoming Encounters Date Type Department Care Team (Late st Contact Info) Description 12/20/2023 2:15 PM EDT Office Visit Dermatology at [facility] [address] [place] [phone] Inderjit Vilchis MD [facility] [place] [address] 12/22/2023 10:00 AM EDT Office Visit Otolaryngology at [place] [address] Norm Joy PA [facility] [place] [address] 12/26/2023 11:45 AM EDT Appointment Hematology and Oncology at [place] [address] 12/26/2023 12:45 PM EDT Office Visit Hematology and Oncology at [place] [address] Jean-Pierre Peña MD [facility] [place] [address] Vicky Burnham APRN [facility] [place] [address] 12/26/2023 2:30 PM EDT Appointment Hematology and Oncology at [place] [address] 02/06/2024 10:00 AM EDT Appointment Hematology and Oncology at [address] 02/06/2024 12:45 PM EDT Office Visit Hematology and Oncology at [place] [phone] Jean-Pierre Peña MD [facility] [place] [address] Vicky Burnham APRN [facility] [place] [address] 02/06/2024 2:00 PM EDT Appointment Hematology [place] [address] documented as of this encounter Results * Lactate Dehydrogenase (09/12/2023 7:45 AM EDT) LDH 187 110 - 220 unit/L [facility] Blood 09/12/2023 7:45 AM EDT 09/12/2023 8:01 AM EDT Narrative Resulting Agency Comment Spec In Lab Jean-Pierre Peña MD CHEMISTRY ORDERABLES [facility] [place] [address] * T4, free (09/12/2023 7:45 AM EDT) Free T4 1.32 0.93 - 1.70 ng/dL [facility] Comment: Reference Interval (ng/dL): Females: ??First Trimester: 0.97-1.68 ??Second Trimester: 0.77-1.51 ??Third Trimester: 0.77-1.49 Blood 09/12/2023 7:45 AM EDT 09/12/2023 8:01 AM EDT Narrative Resulting Agency Comment Spec In Lab Jean-Pierre Peña MD CHEMISTRY ORDERABLES Performing Organization Address City/[facility]/ZIP Co de Phone Number [facility] [place] [address] * TSH (09/12/2023 7:45 AM EDT) TSH 1.42 0.27 - 4.20 mcIU/mL [facility] Comment: Reference Interval (mcIU/mL): Females: ??First Trimester: 0.23-3.88 ??Second Trimester: 0.22-3.90 ??Third Trimester: 0.44-4.66 Blood 09/12/2023 7:45 AM EDT 09/12/2023 8:01 AM EDT Narrative Resulting Agency Comment Spec In Lab Jean-Pierre Peña MD CHEMISTRY ORDERABLES [facility] [place] [address] * (ABNORMAL) Comprehensive metabolic panel (non-fasting) (09/12/2023 7:45 AM EDT) Glucose Lvl 88 65 - 199 mg/dL [facility] Comment:Diabetes: >=200 mg/d L plus symptoms BUN 22(H) 8 - 18 mg/dL [facility] Creatinine 0.87 0.70 - 1.20 mg/dL [facility] Sodium 143 135 - 145 mmol/L [facility] Potassium 4.6 3.5 - 5.0 mmol/L [facility] Comment: Please note: ??Patients with WBC >100,000 may have falsely elevated Potassium levels. ??For accurate Potassium quantification in these patients send serum separator tube (gold top) for subsequent determinations. ??Contact the Clinical Chemistry Laboratory if there are any questions. Chloride 108(H) 98 - 107 mmol/L [facility] CO2 26 22 - 31 mmol/L [facility] Anion Gap 9 5 - 15 mmol/L [facility] Calcium 9.6 8.5 - 10.5 mg/dL [facility] Total Protein 6.9 6.1 - 8.0 g/dL [facility] Albumin 4.3 3.2 - 5.2 g/dL [facility] AST 30 0 - 30 unit/L [facility] ALT 40(H) 0 - 30 unit/L [facility] Alk Phos 94 35 - 105 unit/L [facility] Total Bilirubin 0.5 0.2 - 1.3 mg/dL [facility] Estimated GFR 77 >=60 mL/min/1. 73 m?? [facility] Comment: This patient's estimated GFR [...] and symptoms in addition to eGFR. Blood 09/12/2023 7:45 AM EDT 09/12/2023 8:01 AM EDT Narrative Resulting Agency Comment Spec In Lab Jean-Pierre Peña MD CHEMISTRY ORDERABLES [facility] [place] [address] documented in this encounter Visit Diagnoses Diagnosis [...] 200 mg, Intravenous, ONCE, 1 dose, On Tue09/12/23 at 1045, Administer over 30 Minutes, Flush Line with NS after each dose, This agent is restricted to outpatient use. Is this drug being given as an outpatient? Yes New Bag 09/12/2023 10:52 AM EDT 200 mg 21 6 mL/hr documented in this encounter Care Teams Lacing Operator Relationship Specialty Start Date End Date Taylor Bryant APRN [address] [place] [address] PCP - General 03/31/10 documented as of this encounter
--- OUTSIDE RECORDS SUMMARY | 2023-12-05 02:27 | XMS_ITS | Encounter Summary ---
Author Organization [facility] Address [facility] [place] [address] Care Team Providers Care Television Actor Name Role Phone Taylor Bryant APRN Primary Care Provider [phone] Reason for Visit * Reason Comments Specialty Pharmacy Review Tafinlar 75mg capsule Encounter Details Date Type Department Care Team ([facility] st Contact Info) Description 09/12/2023 Specialty Pharmacy Pharmacy at [facility] [place] [phone] Tegan Mcnamara, BOILER TUBE REAMER Social History Tobacco Use Types Packs/Day Years Used Date Smoking Tobacco: Former Smokeless Tobacco: Never Comments:quit at age 35 Alcohol Use Standard Drinks/Week Comments Yes 0 (1 standard drink = 0.6 oz pur e alcohol) social gatherings [facility] Utilities Answer Date Recorded In [...] place to sleep or slept in a nursing home (including now)? No 07/24/2023 Sex and Gender [...] Per patient's medication list they are prescribed Tafinlar 75mg capsule and the medication is able to be filled at the [facility]. The patient is eligible to fill the medication through Specialty pharmacy with a $11.20 copay. No PA required. The patient is not starting therapy at this time. documented in this encounter Plan of Treatment Upcoming Encounters Date Type Department Care Team (Late st Contact Info) Description 12/20/2023 2:15 PM EDT Office Visit Dermatology at [facility] [address] [place] [address] Inderjit Vilchis MD [facility] [address] GILBERTO [place] [address] 12/22/2023 10:00 AM EDT Office [place] [address] Norm Joy PA [facility] [place] [address] 12/26/2023 11:45 AM EDT Appointment Hematology and Oncology at [place] [phone] 12/26/2023 12:45 PM EDT Office Visit Hematology and Oncology at [place] [address] Jean-Pierre Peña MD [facility] [place] [address] Vicky Burnham APRN [facility] [place] [address] 12/26/2023 2:30 PM EDT Appointment Hematology and Oncology at [place] [phone] 02/06/2024 10:00 AM EDT Appointment Hematology and Oncology at [place] [address] 02/06/2024 12:45 PM EDT Office Visit Hematology and Oncology at [place] [address] Jean-Pierre Peña MD [facility] [address] [place] [address] Vicky Burnham APRN [facility] [place] [address] 02/06/2024 2:00 PM EDT Appointment Hematology and Oncology at [place] [address] documented as of this encounter Visit Diagnoses Not on filedocumented in this encounter Care Teams Television Actor Relationship Specialty Start Date End Date Taylor Bryant APRN [address] [place] [id number] PCP - General 11/23/10 documented as of this encounter
--- OUTSIDE RECORDS SUMMARY | 2023-12-05 02:27 | XMS_ITS | Encounter Summary ---
Author Organization [facility] Address [facility] [place] [address] Care Team Providers Care Entertainer Or Variety Artist Name Role Phone Taylor Bryant APRN Primary Care Provider [phone] Reason for Visit * Auth/Cert (Routine) Specialty Diagnoses / Procedures Referred By Crista padron Referred To Contact Diagnoses Melanoma melanoma Procedures PRO EXC SKIN MALIG 3.1-4CM REMAINDR BODY PRO BX/REMV, LYMPH NODE, DEEP CERV EXC MALIGNANT LESION, 3.1. TO 4.0CM, SCALP (WRVU 3.62) BIOPSY OR EXCISION OF LYMPH NODE(S), OPEN, DEEP CERVICAL NODES (WRVU 6.74) Justa Preciado MD [facility] [place] [address] [facility] Referral ID Status Reason Start Date Expiration Date Visits Re quested Visits Authorized [id number] 1 1 Encounter Details Date Type Department Care Team (Latest Contact Info) Description 09/16/2023 9:54 AM EDT - 09/16/2023 5:20 PM EDT Hospital Encounter [place] [address] Justa Preciado MD [facility] [place] [address] Discharge Disposition: Home Social History Tobacco Use Types Packs/Day Years Used Date Smoking Tobacco: Former Smokeless Tobacco: Never Comments:quit at age 35 Alcohol Use Standard Drinks/Week Comments Yes 0 (1 standard drink = 0.6 oz pur e alcohol) social gatherings [facility] Utilities Answer Date Recorded In [...] place to sleep or slept in a detention (including now)? No 07/24/2023 DH IPV Inpatient [...] Sign Reading Time Taken Comments Blood Pressure 139/79 09/16/2023 4:45 PM EDT Pulse 90 09/16/2023 4:00 PM EDT Temperature 36.5 ??C (97.7 ??F) 09/16/2023 4:45 PM ED T Respiratory Rate 20 09/16/2023 4:30 PM EDT Oxygen Saturation 97% 09/16/2023 4:45 PM EDT Inhaled Oxygen Concentration - - Weight 71.4 kg (157 lb 4.8 oz) 09/16/2023 11:12 AM EDT Height 162.6 cm (5' 4) 09/16/2023 11:12 AM EDT Body Mass Index 27 09/16/2023 11:12 AM EDT documented in this encounter Discharge Instructions * Patient Instructions* Jordan Gonzalez PA - 09/16/2023 3:02 PM EDT Instructions for Patient at Discharge: What to expect: You will have soreness which will improve over the next several days. The area around the incision may be numb. This should recover over the next few months. Medications: Pain Control - use acetaminophen (Tylenol) around the clock, and after 24 hours you can also add ibuprofen [...] in to the area with the bolster. Activity: A good rule of thumb is if it hurts don't do it. Keep your head elevated when lying flat. No heavy lifting or straining for the next week. No smoking, this is important for wound healing. Diet: Resume baseline diet Follow this diet until your follow up appointment: You should call your doctor if you develop: -Increasing pain and redness -Increasing drainage from the wound -Fever > 38.5Celsius or 101 Fahrenheit -Bleeding Contact: -You can reach the ENT clinic at [phone] for appointment questions. -The ENT triage nurse is available at [phone] -For urgent issues during evenings (5 PM - 7 AM) and weekends the ENT resident distribution superintendent can be reached through the main hospital sandwich machine operator at [phone] Follow Up: You will need to follow up with ENT in about 2 weeks to follow-up on the pathology results and nextsteps. This appointment has been requested. You will be notified once it is scheduled, if you do not already see it below. If you do not hear from us in a timely manner, please call toreceive your date and time. Currently Scheduled Appointments and VNA instructions: Future Appointments and Orders Future Appointments and Orders Future Appointments Provider Department Dept Phone 10/04/2023 10:30 AM LABORATORY, TECH Hematology and Oncology at [facility] Arrive at: Food Safety Scientist Area [phone] 10/04/2023 11:30 AM Jean-Pierre Peña MD Hematology and Oncology at [facility] Arrive at: Food Safety Scientist Area [phone] 10/04/2023 1:30 PM LEB INFUSION THERAPY Hematology and Oncology at [facility] Arrive at: Food Safety Scientist Area [phone] 10/06/2023 1:00 PM Norm Joy PA Otolaryngology at [facility] Arrive at: [address] [phone] Please dispose of unused excess opioids before your appointment or bring them with you to the appointment and we will help you dispose of them correctly. 10/24/2023 7:45 AM LABORATORY, TECH Hematology and Oncology at [facility] Arrive at: Food Safety Scientist Area [phone] 10/24/2023 8:45 AM Jean-Pierre Peña MD Hematology and Oncology at [facility] Arrive at: Food Safety Scientist Area [phone] 10/24/2023 10:00 AM LEB INFUSION THERAPY Hematology and Oncology at [facility] Arrive at: Food Safety Scientist Area [phone] 11/14/2023 7:45 AM SHAI SMITH Hematology and Oncology at [facility] Arrive at: Food Safety Scientist Area [phone] 11/14/2023 8:45 AM Jean-Pierre Peña MD Hematology and Oncology at [facility] Arrive at: Food Safety Scientist Area [phone] 11/14/2023 10:00 AM LEB INFUSION THERAPY Hematology and Oncology at [facility] Arrive at: Food Safety Scientist [address] [phone] 12/20/2023 2:15 PM Inderjit Vilchis MD Dermatology at [facility] Arrive at: [phone] documented in this encounter Medications at Time [...] 08/23/2023 09/28/2023 documented as of this encounter Progress Notes * Caitie Roberts RN - 09/16/2023 3:39 PM EDT Patient ambulated to bathroom with assist. Returned to cart stating I'm really to tired still can I sleep more? States not ready for family yet, called surgery waiting to update family on patients request. documented in this encounter H&P Notes * Jordan Gonzalez PA - 09/16/2023 11:25 AM EDT Patient Name: Keeley Gutierrez Patient Age: 58 y.o. Birthdate: 1965 Admit date: 09/16/2023 Attending Physician: Justa Preciado MD S: Patient presents for WLE of right occipital scalp melanoma and excisional SLNB. Denies health and medication changes since last seen by Dr. Preciado. Reports allergies to codeine. O: General: alert and oriented x 3. Moves all extremities spontaneously. Laying in bed, NAD. Pulm: lungs clear, respirations unlabored on room air. CV: RRR, no murmurs noted. HEENT: Large melanotic lesion on right occipital scalp, R neck skin without lesions, erythema, or palpable adenopathy. Assessment / Plan: To OR for R occipital scalp melanoma WLE and R neck SLNB. Patient expresses understanding of risks and benefits and elects to proceed. PATEL Dey documented in this encounter Miscellaneous Notes * Op Note - Justa Preciado MD - 09/16/2023 12:29 PM EDT [facility] Operative Note Patient Name: Keeley Gutierrez : [id number] MR#: [id number] Case Date: 09/16/2023 Surgeon: Surgeon(s) and Role: * Justa Preciado MD - Primary * Filippo Reilly MD - Resident - Assisting * Jordan Gonzalez PA - Physician Flame Hardener Preoperative diagnosis: melanoma Postoperative diagnosis: melanoma Procedure(s) (LRB): RADICAL RESECTION TUMOR SCALP; >2 CM (WRVU 15.26) (Right) BIOPSY OR EXCISION OF LYMPH NODE(S), OPEN, DEEP CERVICAL NODES (WRVU 6.74) (Right) Anesthesia: General Estimated Blood Loss: 25 mL Specimens removed during surgery: Order Name Source Comment Collection Info Order Time SPECIMEN TO PATHOLOGY OR reading w/gamma probe =73 melanoma RIGHT level 2 biopsy 09/16/2023 1:24 PM Time specimen removed from patient: 12:50 PM Number of tissue samples (in container) 1 SPECIMEN TO PATHOLOGY melanoma Upper RIGHT neck contents excision 09/16/2023 1:24 PM Time specimen removed from patient: 1:05 PM Number of tissue samples (in container) 1 SPECIMEN TO PATHOLOGY OR reading w/gamma probe =93 melanoma RIGHT level 5 biopsy 09/16/2023 1:24 PM Time specimen removed from patient: 12:55 PM Number of tissue samples (in container) 1 SPECIMEN TO PATHOLOGY melanoma Radical excision of melanoma, RIGHT scalp, orientation per card excision 09/16/2023 2:09 PM Time specimen removed from patient: 1:56 PM Number of tissue samples (in container) 1 Drains: * No LDAs found * Surgical [...] patient.) HPI/Surgical Indications: This is a 58-year-old woman with a 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 She is being taken to the operating room for a wide local excision of her melanoma along with sentinel lymph node biopsies. She underwent a preoperative lymphoscintigraphy which was reviewed with her showing the presence of to right sided lymph nodes. 1 lymph node was seen in right level 2 and the second 1 in right level 5. We discussed at length the expected management, expectations and risks of complications. Procedure Description: The patient was brought to the operating room and placed in supine position.General anesthesia secured and the bed is turned 180 degrees away from anesthesia. The head is turned to the left side and then the right scalp is shaved and then the melanoma visualized. It consistsof a almost 4 cm irregularly bordered and darkly pigmented lesion which is nonadherent to the underlying tissues with 2 separate satellite areas that are going to be included as part of the resection. We started by measuring a 2 [address] margin all the way around this tumor which will create a 6.5 cm x 6cm surgical defect. Local anesthesia is administered to these planned margins. Using the gamma probe, the location of the sentinel nodes is marked on the skin. We planned also a right-sided cervical incision overlying these lymph nodes which is infiltrated with local anesthesia. The scalp was then prepped and draped in a standard fashion and a timeout is completed. We start with the sentinel lymph node mapping with making an incision along the first cervical wrinkle of the patient which is extended through the platysma with exposure of the greater auricular nerve as well as the anterior border of the sternomastoid muscle. As we extended dissection superiorly the inferioraspect of the parotid gland is outlined and once this is reflected superiorly the posterior belly of the digastric is identified. This is followed along its inferior portion in order to then used thegamma probe to identify the location of the sentinel nodes. We identified the accessory nerve whichis protected and then identify when node located just posterior to the superiormost aspect of the internal jugular vein in high level 2B and a separate area of high radioactivity count in the junction between the accessory nerve and the jugular vein and the digastric. Careful dissection is carried out to identify the borders of the internal jugular vein and its superiormost branches as well as the accessory nerve. The radioactive nodes are identified and counts are of 73 for the level 2 node and 93 for the level 5 node. Putting the gamma probe back in shows that the counts go back to baselineat between 10 and 20. The wound is then copiously irrigated and Surgicel is placed in the wound to help with hemostasis. The active bleeders are controlled with bipolar cautery. All of the neurovascular structures of the upper neck are intact. The wound is then closed in layers using 3-0 Vicryl as well as a 4-0 subcuticular Monocryl. We then turned our attention to the radical excision of the melanoma. The incision is carried out with a 10 blade in a circumferential fashion through the skin and loose areolar tissues where the occipitalis muscle is then noted. As we start the dissection superficial to the muscle, we realized that the pigmented portion of the tumor extends to against the muscle. At that point we stopped her resection and come back to the skin margin that had been dissected and incised in a radical fashion thefascia overlying the occipitalis muscle as well as the muscle itself all the way to the periosteum on the occipital portion of the skull. This is dissected in a circumferential fashion over a span of6 cm where we carefully dissected the muscle in a circumferential fashion which is included with the superficial aspect of the scalp. As we come inferiorly the occipital vessels were identified and ligated. The specimen at that point is removed, placed on a specimen card and oriented. It is submitted to the pathology lab. A bolster dressing is then fashioned with placing Adaptic which is custom fitted to the surgical defect from the melanoma followed by putting radial sutures of chromic and then placing the bolster dressing from a surgical sponge as well as Xeroform. The bolster is created by over suturing the radial chromic sutures. The care of the patient is then transferred to anesthesia. She is extubated and transferred to the same-day area. Estimated blood loss 25 cc Surgical Infection Prevention Bundle Used? No Attestation: Case Date: 09/16/2023 I was present and I participated during the entire procedure (does not need to include opening and closing). JUSTA PRECIADO MD 09/16/2023 documented in this encounter Plan of Treatment Upcoming Encounters Date Type Department Care Team (Late st Contact Info) Description 12/20/2023 2:15 PM EDT Office Visit Dermatology at [facility] [address] [place] [address] Inderjit Vilchis MD [facility] DR GILBERTO [place] [address] 12/22/2023 10:00 AM EDT Office [place] [address] Norm Joy PA [facility] [place] [address] 12/26/2023 11:45 AM EDT Appointment Hematology [place] [address] 12/26/2023 12:45 PM EDT Office Visit [place] [phone] Jean-Pierre Peña MD [facility] DR HEMATOLOGY [place] [address] Vicky Burnham APRN [facility] [place] [address] 12/26/2023 2:30 PM EDT Appointment Hematology [place] [address] 02/06/2024 10:00 AM EDT Appointment [place] [address] 02/06/2024 12:45 PM EDT Office Visit [place] [address] Jean-Pierre Peña MD [facility] [address] [place] [address] Vicky Burnham NATIONAL STORMWATER LEADER [facility] [place] [address] 02/06/2024 2:00 PM EDT Appointment [place]ology [place] [address] documented as of this encounter Procedures Procedure Name Priority Date/Time Associated Diagnosis Comments RADICAL RESECTION TUMOR SCALP; >2 CM Routine 09/16/2023 2:41 PM EDT SPECIMEN TO PATHOLOGY Routine 09/16/2023 2:09 PM EDT SPECIMEN TO PATHOLOGY Routine 09/16/2023 1:25 PM EDT SPECIMEN TO PATHOLOGY Routine 09/16/2023 1:25 PM EDT SPECIMEN TO PATHOLOGY Routine 09/16/2023 1:25 PM EDT SURGICAL PATHOLOGY REPORT Routine 09/16/2023 12:50 PM EDT Bx/Remv, Lymph Node, Deep Cerv ([id number]) 09/16/2023 11:48 AM EDT melanoma Radical/Resect Of Tumor, Soft Tissue Face Or Scalp, 2Cm Or Greater ([id number]) 09/16/2023 11:48 AM EDT melanoma BIOPSY OR EXC OF LYMPH NODES; OPEN, DEEP CERVICAL NODES Routine 09/16/2023 10:47 AM EDT documented in this encounter Results * Specimen to Pathology (09/16/2023 2:09 PM EDT) AP Specimen 09/16/2023 2:09 PM EDT 09/16/2023 2:09 PM EDT Narrative [facility] - 09/16/2023 2:09 PM EDT Specimen requisition ordered. ??Separate Pathology report to follow Justa Preciado MD PATHOLOGY/CYTOLOGY ORDERABLES Performing Organization Address [facility]/ZIP Co de Phone Number [facility] [place] [address] * Specimen to Pathology (09/16/2023 1:25 PM EDT) AP Specimen 09/16/2023 1:25 PM EDT 09/16/2023 1:25 PM EDT Narrative [facility] - 09/16/2023 1:25 PM EDT Specimen requisition ordered. ??Separate Pathology report to follow Justa Preciado MD PATHOLOGY/CYTOLOGY ORDERABLES Performing Organization Address City/[facility]/ZIP Co de Phone Number [facility] [place] [address] * Specimen to Pathology (09/16/2023 1:25 PM EDT) AP Specimen 09/16/2023 1:25 PM EDT 09/16/2023 1:25 PM EDT Narrative [facility] - 09/16/2023 1:25 PM EDT Specimen requisition ordered. ??Separate Pathology report to follow Justa Preciado MD PATHOLOGY/CYTOLOGY ORDERABLES Performing Organization Address [facility]/[place] [address] * Specimen to Pathology (09/16/2023 1:25 PM EDT) AP Specimen 09/16/2023 1:25 PM EDT 09/16/2023 1:25 PM EDT Narrative [facility] - 09/16/2023 1:25 PM EDT Specimen requisition ordered. ??Separate Pathology report to follow Justa Preciado MD PATHOLOGY/CYTOLOGY ORDERABLES Performing Organization Address [facility] Co de Phone Number [facility] [place] [id number] * Surgical Pathology Report (09/16/2023 12:50 PM EDT) Pathologist [facility] FINAL DIAGNOSIS (AP) [id number] ? Location: [facility]; [facility]; A The signing pathologist has (i) examined the [...] lesion Electronically signed by: ?Wilian ROBLES, PhD, David Verified: ??09/27/2023 10:12 ??Dermatopathologist Performed at: ??-[facility] Dept. of Pathology, [place] [address] Measurement Supervisor: Johnnie Stephens MD, FCAP, ??CLIA Certificate: [id number] SYNOPTIC Specimen ? Procedure: ??Excision; ??Lymphadenectomy, regional [...] of Lymph Nodes Examined: ??6 ?Number of [place] Nodes Examined: ??0 ? Pathologic Stage Classification (pTNM, AJCC 8th Edition) ?Pathologic Stage Classification: ??Classification assigned in this report ? includes information from a prior procedure - yes ?pT Category: ??pT4a . SYNOPTIC ?pN Category: ??pN1c Best Tumor Blocks for Future Studies ? Tumor Block(s): ??D10,12,14 ? Normal Block(s): ??D3 ? [facility] 2021 Q1 Release DISCUSSION Scanned images of the patient's prior biopsy ([id number]) have been reviewed. There is extensive residual [...] 1.0 cm. Tissue Description: Ovoid excision of moarn-pink hair-bearing skin received sutured to a card [...] through D23/D24) ??ajw 09/27/2023 10:12 AM EDT [facility] SPECIMEN FROM SKIN / Unknown 09/16/2023 12:50 PM EDT 09/16/2023 12:50 PM EDT LYMPH NODE SPECIMEN / Unknown 09/16/2023 12:50 PM EDT 09/16/2023 12:50 PM EDT LYMPH NODE SPECIMEN / Unknown 09/16/2023 12:50 PM EDT 09/16/2023 12:50 PM EDT SPECIMEN FROM SKIN / Unknown 09/16/2023 12:50 PM EDT 09/16/2023 12:50 PM EDT Justa Preciado MD PATHOLOGY/CYTOLOGY ORDERABLES [facility] [place] [address] documented in this encounter Visit Diagnoses Not on filedocumented in this encounter Administered Medications Inactive Administered Medications - up to 3 most recent administrations Medication Order MAR Action Action Date Dose Rate Site acetaminophen (Tylenol) tablet 975 mg 975 mg, Oral, ONCE, 1 dose, On Tue09/16/23 at 1700, Maximum dose of acetaminophen is 4,000 mg from all sources in 24 hours. When ordered for pain, acetaminophen should be given even when other ordered pain medications are indicated., Routine Given 09/16/2023 4:38 PM EDT 975 mg ceFAZolin (Ancef) 2 g vial attach to sodium chloride 0.9% 100 mL Mini-Bag Plus 2 g, Intravenous, EVERY 8 HOURS, First dose on Tue09/16/23 at 1145, Until Discontinued, Administer over 30 Minutes, Indication for (Active or Suspected): Prophylaxis New Bag 09/16/2023 12:07 PM EDT 2 g documented in this encounter Active and Recently Administered Medications Times are shown in EDT. Scheduled Medication Order 09/14/2023 09/15/2023 09/16/2023 acetaminophen (Tylenol) tablet 975 mg (COMPLETED) 975 mg, Oral, ONCE, 1 dose, On Tue09/16/23 at 1700, Maximum dose of acetaminophen is 4,000 mg from all sources in 24 hours. When ordered for pain, acetaminophen should be given even when other ordered pain medications are indicated., Routine 1638 (Given - Provid er: Caitie Roberts RN) ceFAZolin (Ancef) 2 g vial attach to sodium chloride 0.9% 100 mL Mini-Bag Plus 2 g, Intravenous, EVERY 8 HOURS, First dose on Tue09/16/23 at 1145, Until Discontinued, Administer over 30 Minutes, Indication for (Active or Suspected): Prophylaxis 1145 (Due)1207 (New Bag - Provider: Sandy Velasco CRNA) PRN Medication Order 09/14/2023 09/15/2023 09/16/2023 lidocaine-EPINEPHrine (1% - 1:100,000) injection (CANCELED) PRN, Starting on Tue09/16/23 at 1216, Until Tue09/16/23 at 1920, Intra-Operative (Intra-Procedure), Routine 1216 (Given - Provid er: Filippo Reilly MD) documented in this encounter Care Teams Entertainer Or Variety Artist Relationship Specialty Start Date End Date Taylor Bryant APRN [address] [place] [address] PCP - General 03/31/10 documented as of this encounter
--- OUTSIDE RECORDS SUMMARY | 2023-12-05 02:27 | XMS_ITS | Encounter Summary ---
Author Organization [facility] Address [facility] [place] [address] Care Team Providers Care Skilled Nursing Facilities Professional Name Role Phone Taylor Bryant APRN Primary Care Provider [phone] [phone] Reason for Visit * Auth/Cert (Routine) Specialty Diagnoses / Procedures Referred By Crista padron Referred To Contact Diagnoses Melanoma melanoma Procedures PRO EXC SKIN MALIG 3.1-4CM REMAINDR BODY PRO BX/REMV, LYMPH NODE, DEEP CERV EXC MALIGNANT LESION, 3.1. TO 4.0CM, SCALP (WRVU 3.62) BIOPSY OR EXCISION OF LYMPH NODE(S), OPEN, DEEP CERVICAL NODES (WRVU 6.74) Castro Preciado MD [facility] [place] [address] [facility] Referral ID Status Reason Start Date Expiration Date Visits Re quested Visits Authorized [id number] 1 1 Encounter Details Date Type Department Care Team (Latest Contact Info) Description 09/16/2023 8:00 AM EDT - 09/16/2023 9:53 AM EDT Hospital Encounter [place] [address] Castro Preciado MD [facility] [place] [address] Discharge Disposition: Home Social History Tobacco Use [...] 2:15 PM EDT Office Visit Dermatology at [address] [address] Inderjit Vilchis MD [facility] DR GILBERTO [place] [address] 12/22/2023 10:00 AM EDT Office [place] [address] Norm Joy PA [facility] [place] [address] 12/26/2023 11:45 AM EDT Appointment [place] [address] 12/26/2023 12:45 PM EDT Office Visit [place] [address] Jean-Pierre Peña MD [facility] DR [place] [address] Vicky Burnham APRN [facility] [address] 12/26/2023 2:30 PM EDT Appointment [place] [address] 02/06/2024 10:00 AM EDT Appointment [place] [address] 02/06/2024 12:45 PM EDT Office Visit [place] [address] Jean-Pierre Peña MD [facility] DR [place] [address] Vicky Burnham GEOGRAPHIC AREA INTELLIGENCE OFFICER [facility] [place] [address] 02/06/2024 2:00 PM EDT Appointment [place]ology [place] [address] documented as of this encounter Procedures Procedure Name Priority Date/Time Associated Diagnosis Comments NM LYMPHOSCINTIGRAPHY WITH IMAGING MELANOMA OR SKIN CANCER Routine 09/16/2023 9:54 AM EDT Malignant melanoma of scalp documented in this encounter Results * NM Lymphoscintigraphy w Imaging Melanoma or Skin Cancer (09/16/2023 9:54 AM EDT) WORKSTATION ID [id number] [facility] Anatomical Region Laterality Modality Nuclear Medicine Impressions 09/16/2023 12:37 PM EDT [place] lymph nodes in the right levels 2 and 5 regions as above. Thank you for letting us participate in the care of this patient. ??If you are a health care provider and have any questions regarding this report, please contact the number below. ??For patients who have questions please contact the health animal caregiver that requested your imaging first. ? Electronically signed by: Esa Sprague MD, [facility] ([phone]), at 09/16/2023 12:37 PM Narrative 09/16/2023 12:37 [...] right level 5 (axial image 28). IMPRESSION [place] lymph nodes in the right levels 2 and 5 regions as above. Thank you for letting us participate in the care of this patient. If youare a health care provider and have any questions regarding this report,please contact the number below. For patients who have questions please contactthe health animal caregiver that requested your imaging first. Castro Preciado MD IMG [place] ORDERABLES documented in this encounter Visit Diagnoses Not on filedocumented in this encounter Care Teams Skilled Nursing Facilities Professional Relationship Specialty Start Date End Date Taylor Bryant APRN [address] [place] [address] PCP - General 03/31/10 documented as of this encounter
--- OUTSIDE RECORDS SUMMARY | 2023-12-05 02:27 | XMS_ITS | Encounter Summary ---
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, unspecified lymph node region Procedures [id number] pembrolizumab (Keytruda) Jean-Pierre Peña MD [facility] DR [place] [address] Jean-Pierre Peña MD [facility] DR [place] [address] Referral ID Status Reason Start Date Expiration Date V isits Requested Visits Authorized [id number] Pending Review 07/25/2023 07/24/2024 99 99 Encounter Details Date Type Department Care Team (Latest Contact Info) Description 08/23/2023 8:27 AM EDT - 08/23/2023 11:59 PM EDT Hospital Encounter [place]ology [place] [address] Medication management; Malignant melanoma of scalp; Malignant [...] in a prison (including now)? No 07/24/2023 Sex and Gender Information Value Date Recorded Sex Assigned at Not on file Gender Identity Not on file Sexual Orientation Not on file documented as of this encounter Discharge Instructions * Patient Instructions* Dana De RN - 08/23/2023 12:38 PM EDT Pt. chemo teaching instructions reinforced: During clinic hours (8am-5pm Tuesday-Tuesday): pt. can call [phone] or [phone] with questions or concerns. After clinic hours (5pm-8am Tuesday-Tuesday and weekends) pt can call [phone] and ask for the filing writer/oncologist graduate teacher education. Keeley Gutierrez verbalized understanding of potential chemotherapy side effects and home care including but not limited to- handwashing to prevent infection, signs and symptoms of low blood counts (fever, fatigue, bleeding), to call with a fever of 100.4 or greater, any significant constipation/diarrhea, importance of nutrition and fluid intake (drinking at least 32-64 ounces of non-caffeinatedbeverages/day), mouth care. * Attachments The following attachments cannot be sent through Care Everywhere. * Pembrolizumab Injection (PEMBROLIZUMAB - INJECTION) (Libyan) documented in this encounter Medications at Time of Discharge Medication Sig Dispensed Refills Start Date End Date elderberry fruit 350 mg Capsule Take by [...] as of this encounter Progress Notes * Dana De RN - 08/23/2023 12:12 PM EDT Patient Name: Keeley Gutierrez Patient Age: 58 y.o. Birthdate: 1965 Admit date: 08/23/2023 Attending Physician: No att. providers found Keeley Gutierrez, 58 y.o. female with diagnosis of 1. Medication management 2. Malignant melanoma of scalp 3. 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 Patient seated: 1224 Treatment done: 1307 S: Pt. offers no complaints at this time. Reviewed plan of care for infusion visit, patient verbalized understanding of plan as outlined. O: Orders independently verified for correct drug name, route and dosage per patient's height, weight and BSA by Dana De RN and onsite pharmacist. Medications administered per protocol. SeeMAR for medication administration. REACTIONS (DESCRIPTION, TIME, INTERVENTION AND EFFECTIVENESS) none A: Pt. Tolerated treatment with out issue. Keeley Gutierrez confirms that all questions and issueshave been addressed. P: Return to clinic as scheduled. Pt. chemo teaching instructions reinforced: During clinic hours (8am-5pm Tuesday-Tuesday): pt. can call [phone] or [phone] with questions or concerns. After clinic hours (5pm-8am Tuesday-Tuesday and weekends) pt can call [phone] and ask for the filing writer/oncologist graduate teacher education. Keeley Gutierrez verbalized understanding of potential chemotherapy side effects and home care including but not limited to- handwashing to prevent infection, signs and symptoms of low blood counts (fever, fatigue, bleeding), to call with a fever of 100.4 or greater, any significant constipation/diarrhea, importance of nutrition and fluid intake (drinking at least 32-64 ounces of non-caffeinatedbeverages/day), mouth care. documented in this encounter Plan of Treatment Upcoming Encounters Date Type Department Care Team (Late st Contact Info) Description 12/20/2023 2:15 PM EDT Office Visit Dermatology at [facility] [address] [place] [address] Inderjit Vilchis MD [facility] DR GILBERTO [place] [address] 12/22/2023 10:00 AM EDT Office Visit Otolaryngology at [place] [phone] Norm Joy PA [facility] [place] [address] 12/26/2023 11:45 AM EDT Appointment Hematology and Oncology at [place] [address] 12/26/2023 12:45 PM EDT Office Visit Hematology and Oncology at [address] Jean-Pierre Peña MD [facility] DR [place] [address] Vicky Burnham APRN [facility] [place] [address] 12/26/2023 2:30 PM EDT Appointment Hematology and Oncology at [place] [phone] 02/06/2024 10:00 AM EDT Appointment Hematology and Oncology at [place] [phone] 02/06/2024 12:45 PM EDT Office Visit Hematology and Oncology at [place] [phone] Jean-Pierre Peña MD [facility] DR [place] [address] Vicky Burnham APRN [facility] [place] [address] 02/06/2024 2:00 PM EDT Appointment Hematology and Oncology at [place] [phone] documented as of this encounter Results * Lactate Dehydrogenase (08/23/2023 8:33 AM EDT) LDH 165 110 - 220 unit/L [facility] Blood 08/23/2023 8:33 AM EDT 08/23/2023 8:59 AM EDT Narrative Resulting Agency Comment Spec In Lab Jean-Pierre Peña MD CHEMISTRY ORDERABLES Performing Organization Address City/[facility] Co de Phone Number [facility] [place] [address] * T4, free (08/23/2023 8:33 AM EDT) Free T4 1.31 0.93 - 1.70 ng/dL [facility] Comment: Reference Interval (ng/dL): Females: ??First Trimester: 0.97-1.68 ??Second Trimester: 0.77-1.51 ??Third Trimester: 0.77-1.49 Blood 08/23/2023 8:33 AM EDT 08/23/2023 8:59 AM EDT Narrative Resulting Agency Comment Spec In Lab Jean-Pierre Peña MD CHEMISTRY ORDERABLES Performing Organization Address [facility] de Phone Number [facility] [place] [address] * TSH (08/23/2023 8:33 AM EDT) TSH 0.80 0.27 - 4.20 mcIU/mL [facility] Comment: Reference Interval (mcIU/mL): Females: ??First Trimester: 0.23-3.88 ??Second Trimester: 0.22-3.90 ??Third Trimester: 0.44-4.66 Blood 08/23/2023 8:33 AM EDT 08/23/2023 8:59 AM EDT Narrative Resulting Agency Comment Spec In Lab Jean-Pierre Peña MD CHEMISTRY ORDERABLES Performing Organization Address City/[facility]/ZIP Co de Phone Number [facility] [place] [address] * (ABNORMAL) Comprehensive metabolic panel (non-fasting) (08/23/2023 8:33 AM EDT) Glucose Lvl 95 65 - 199 mg/dL [facility] Comment:Diabetes: >=200 mg/d L plus symptoms BUN 20(H) 8 - 18 mg/dL [facility] Creatinine 0.95 0.70 - 1.20 mg/dL [facility] Sodium 141 135 - 145 mmol/L [facility] Potassium 4.5 3.5 - 5.0 mmol/L [facility] Comment: Please note: ??Patients with WBC >100,000 may have falsely elevated Potassium levels. ??For accurate Potassium quantification in these patients send serum separator tube (gold top) for subsequent determinations. ??Contact the Clinical Chemistry Laboratory if there are any questions. Chloride 106 98 - 107 mmol/L [facility] CO2 26 22 - 31 mmol/L [facility] Anion Gap 9 5 - 15 mmol/L [facility] Calcium 9.9 8.5 - 10.5 mg/dL [facility] Total Protein 7.0 6.1 - 8.0 g/dL [facility] Albumin 4.5 3.2 - 5.2 g/dL [facility] AST 14 0 - 30 unit/L [facility] ALT 15 0 - 30 unit/L [facility] Alk Phos 70 35 - 105 unit/L [facility] Total Bilirubin 0.6 0.2 - 1.3 mg/dL [facility] Estimated GFR 69 >=60 mL/min/1. 73 m?? [facility] Comment: This patient's estimated GFR [...] and symptoms in addition to eGFR. Blood 08/23/2023 8:33 AM EDT 08/23/2023 8:59 AM EDT Narrative Resulting Agency Comment Spec In Lab Jean-Pierre Peña MD CHEMISTRY ORDERABLES [facility] [place] [address] documented in this encounter Visit Diagnoses Diagnosis [...] 200 mg, Intravenous, ONCE, 1 dose, On Tue08/23/23 at 1230, Administer over 30 Minutes, Flush Line with NS after each dose, This agent is restricted to outpatient use. Is this drug being given as an outpatient? Yes New Bag 08/23/2023 12:34 PM EDT 200 mg 21 6 mL/hr documented in this encounter Care Teams Methods Specialist Engineer Relationship Specialty Start Date End Date Taylor Bryant APRN [address] [place] [address] PCP - General 03/31/10 documented as of this encounter
--- OUTSIDE RECORDS SUMMARY | 2023-12-05 02:27 | XMS_ITS | Encounter Summary ---
Author Organization [facility] [place] [address] Care Team Providers Care Assistant Family Teacher Name Role Phone Taylor Bryant APRN Primary Care Provider [phone] Reason for Visit * Auth/Cert (Routine) Specialty [...] LESS, EYELIDS (WRVU 11.64) Justa Preciado MD [facility] [place] [address] [facility] Referral ID Status Reason Start Date Expiration Date Visits Re quested Visits Authorized [id number] 1 1 Encounter Details Date Type Department Care Team (Latest Contact Info) Description 09/28/2023 8:24 AM EDT - 09/28/2023 5:04 PM EDT Hospital Encounter [place] [address] Justa Preciado MD [facility] [place] [address] Discharge Disposition: Home Social History Tobacco Use Types Packs/Day Years Used Date Smoking Tobacco: Former Smokeless Tobacco: Never Comments:quit at age 35 Alcohol Use Standard Drinks/Week Comments Yes 0 (1 standard drink = 0.6 oz pur e alcohol) social gatherings [facility] Utilities Answer Date Recorded In the [...] in a m[facility]p (including now)? No 07/24/2023 DH IPV Inpatient [...] Sign Reading Time Taken Comments Blood Pressure 144/72 09/28/2023 4:00 PM EDT Pulse 81 09/28/2023 2:30 PM EDT Temperature 36.5 ??C (97.7 ??F) 09/28/2023 1:51 PM ED T Respiratory Rate 13 09/28/2023 2:30 PM EDT Oxygen Saturation 94% 09/28/2023 4:00 PM EDT Inhaled Oxygen Concentration - - [...] Program 8a-5pm Tuesday-Tuesday. All other times, call [phone] and ask for the anesthesiologist educational therapy teacher. POST ANESTHESIA INSTRUCTIONS Go home, rest, use [...] Provider Department Center 10/04/2023 10:30 AM LABORATORY, [facility] INF [address] [place] [address] 10/04/2023 11:30 AM Jean-Pierre Peña MD [facility] HEM ONC [facility] 10/04/2023 1:00 PM [facility] [address] 10/06/2023 1:40 PM Justa Preciado MD [facility] KEVIN [facility] 10/24/2023 7:45 AM LABORATORY, [address] 10/24/2023 8:45 AM Jean-Pierre Peña MD [facility] HEM ONC [facility] 10/24/2023 10:00 AM [facility] [address] 11/14/2023 7:45 AM LABORATORY, [address] 11/14/2023 8:45 AM Jean-Pierre Peña MD [facility] HEM ONC [facility] 11/14/2023 10:00 AM [facility] [address] 12/20/2023 2:15 PM Inderjit Vilchis MD [facility] documented in this encounter Medications at Time [...] Aviles MD, PGY3 09/28/2023 11:06 AM Pager #[phone] ENT Team Pager: [phone] documented in this encounter Miscellaneous Notes * Op Note - Justa Preciado MD - 09/28/2023 12:22 PM EDT [facility] Operative Note Patient Name: Keeley Gutierrez : [id number] MR#: [id number] Case Date: 09/28/2023 Surgeon: Surgeons and Role: [...] 2:15 PM EDT Office Visit Dermatology at [facility] [address] [place] [address] Inderjit Vilchis MD [facility] DR GILBERTO [place] [address] 12/22/2023 10:00 AM EDT Office Visit Otolaryngology at [address] Norm Joy PA [facility] [address] 12/26/2023 11:45 AM EDT Appointment Hematology and Oncology at [address] 12/26/2023 12:45 PM EDT Office Visit Hematology and Oncology at [place] [address] Jean-Pierre Peña MD [facility] DR HEMATOLOGY [place] [address] Vicky Burnham APRN [facility] [place] [address] 12/26/2023 2:30 PM EDT Appointment Hematology and Oncology at [address] 02/06/2024 10:00 AM EDT Appointment Hematology and Oncology at [place] [phone] 02/06/2024 12:45 PM EDT Office Visit Hematology and Oncology at [place] [phone] Jean-Pierre Peña MD [facility] HEMATOLOGY [place] [address] Vicky Burnham APRN [facility] [place] [address] 02/06/2024 2:00 PM EDT Appointment Hematology and Oncology at [facility] [place] [address] documented as of this encounter Procedures Procedure Name Priority Date/Time Associated Diagnosis Comments SPLIT THICKNESS SKIN SPLIT GRAFT,100SQ CM OR LESS, NECK Routine 09/28/2023 1:43 PM EDT ADJ.TISSUE TRANSFER, REARRANGEMENT, 10.1 TO 30 SQ.CM, SCALP Routine 09/28/2023 1:42 PM EDT Split Grft, Head, Fac, Hand, Feet <100Sqcm ([id number]) 09/28/2023 11:43 AM EDT melanoma scalp Adj Tiss Transfer Scalp, Extrem 10.1-30 ([id number]) 09/28/2023 11:43 AM EDT melanoma scalp documented [...] medications are indicated. Begin oral analgesics when BENDING MACHINE SET UP OPERATOR is discontinued., Routine Given 09/28/2023 4:16 PM [...] 9:07 AM EDT 1,000 mLs 100 mL/hr scopolamine (Transderm-Scop) 1 mg over 3 days [...] medications are indicated. Begin oral analgesics when BENDING MACHINE SET UP OPERATOR is discontinued., Routine 1616 (Given - Provid [...] Day of Surgery (Day of Procedure), Routine 09 (Patch Applied - Provider: Babar Bar RN)1704 [...] Routine documented in this encounter Care Teams Assistant Family Teacher Relationship Specialty Start Date End Date Taylor Bryant, ZARA [address] [place] [address] PCP - General 03/31/10 documented as of this encounter
--- OUTSIDE RECORDS SUMMARY | 2023-12-05 02:27 | XMS_ITS | Encounter Summary ---
Author Organization [facility] [place] [address] Care Team Providers Care Internal Control Consultant Name Role Phone Taylor Bryant APRN Primary Care Provider [phone] Encounter Details Date Type Department Care Team ([facility] st Contact Info) Description 09/19/2023 Telephone Hematology [place] [phone] Gianna Sanabria RN Social History Tobacco Use Types Packs/Day Years Used Date Smoking Tobacco: Former Smokeless Tobacco: Never Comments:quit at age 35 Alcohol Use Standard Drinks/Week Comments Yes 0 (1 standard drink = 0.6 oz pur e alcohol) social gatherings [facility] Utilities Answer Date Recorded In the [...] Telephone Encounter - Gianna Sanabria RN - 09/19/2023 6:24 PM EDT Message received from Provider:Per Dr. Peña: Her surgery will be on 09/15. Most likely I will start this 2-3 weeks after surgery.Tafinlar copay is $11.20 and Tafinlar is $0.00 . T/C to patient: Tafinlar copay is $11.20 and Mekinist is $0.00 Call placed to patient who had her surgery on and she is still recovering. Patient reported that she is going to have skin craft next Tuesday. Nursing to follow up with Dr Peña after surgery. documented in this encounter Plan of Treatment Upcoming Encounters Date Type Department Care Team (Late st Contact Info) Description 12/20/2023 2:15 PM EDT Office Visit Dermatology at [facility] [address] [place] [address] Inderjit Vilchis MD [facility] [address] [place] [address] 12/22/2023 10:00 AM EDT Office Visit Otolaryngology at [place] [address] Norm Joy PA [facility] [place] [place] [address] 12/26/2023 11:45 AM EDT Appointment Hematology and Oncology at [place] [address] 12/26/2023 12:45 PM EDT Office Visit Hematology and Oncology at [place] [address] Jean-Pierre Peña MD [facility] [place] [address] Vicky Burnham APRN [facility] [place] [address] 12/26/2023 2:30 PM EDT Appointment Hematology and Oncology at [place] [address] 02/06/2024 10:00 AM EDT Appointment Hematology and Oncology at [address] 02/06/2024 12:45 PM EDT Office Visit Hematology and Oncology at [place] [phone] Jean-Pierre Peña MD [facility] [place] [address] Vicky Burnham APRN [facility] [place] [address] 02/06/2024 2:00 PM EDT Appointment Hematology [place] [address] documented as of this encounter Visit Diagnoses Not on filedocumented in this encounter Care Teams Internal Control Consultant Relationship Specialty Start Date End Date Taylor Bryant APRN [address] [place] [address] PCP - General 03/31/10 documented as of this encounter
--- OUTSIDE RECORDS SUMMARY | 2023-12-05 02:27 | XMS_ITS | Encounter Summary ---
Author Organization [facility] Address [facility] [place] [address] Care Team Providers Care Fur Cleaner Name Role Phone Taylor Bryant APRN Primary Care Provider [phone] [phone] Reason for Visit * Auth/Cert (Routine) Specialty Diagnoses / Procedures Referred By Crista padron Referred To Contact Diagnoses Melanoma melanoma Procedures PRO EXC SKIN MALIG 3.1-4CM REMAINDR BODY PRO BX/REMV, LYMPH NODE, DEEP CERV EXC MALIGNANT LESION, 3.1. TO 4.0CM, SCALP (WRVU 3.62) BIOPSY OR EXCISION OF LYMPH NODE(S), OPEN, DEEP CERVICAL NODES (WRVU 6.74) Justa Preciado MD [facility] [place] [address] [facility] Referral ID Status Reason Start Date Expiration Date Visits Re quested Visits Authorized [id number] 1 1 Encounter Details Date Type Department Care Team (Late st Contact Info) Description 09/16/2023 12:45 PM EDT - 09/16/2023 3:30 PM EDT Surgery [place] [address] Justa Preciado MD [facility] [address] [place], [place] [id number] RADICAL RESECTION TUMOR SCALP; >2 CM (WRVU 15.26) Social History Tobacco Use Types Packs/Day Years Used Date Smoking Tobacco: Former Smokeless Tobacco: Never Comments:quit at age 35 Alcohol Use Standard Drinks/Week Comments Yes 0 (1 standard drink = 0.6 oz pur e alcohol) social gatherings [facility] Utilities Answer Date Recorded In the [...] place to sleep or slept in a custodial (including now)? No 07/24/2023 DH IPV Inpatient [...] Sign Reading Time Taken Comments Blood Pressure 126/71 09/16/2023 3:30 PM EDT Pulse 87 09/16/2023 3:30 PM EDT Temperature 36.3 ??C (97.3 ??F) 09/16/2023 2:51 PM ED T Respiratory Rate 16 09/16/2023 3:30 PM EDT Oxygen Saturation 93% 09/16/2023 3:30 PM EDT Inhaled Oxygen Concentration - - [...] -You can reach the ENT clinic at [phone] for appointment questions. -The ENT triage nurse is available at [phone] -For urgent issues during evenings (5 PM - 7 AM) and weekends the ENT resident pet resort concierge can be reached through the main hospital gang ripsaw operator at [phone] Follow Up: You will need to follow [...] Department Dept Phone 10/04/2023 10:30 AM LABORATORY, [employer] [place] [facility] [place] at: Field Property Loss Specialist Area [phone] 10/04/2023 11:30 AM Jean-Pierre Peña MD Hematology [place] [facility] [place] at: Field Property Loss Specialist Area [phone] 10/04/2023 1:30 PM [facility] Hematology and [place]cology [place] [facility] [place]rive at: Field Property Loss Specialist Area [phone] 10/06/2023 1:00 PM Norm Joy PA [place]ology [place] [facility] [place]rive at: Field Property Loss Specialist Area [phone] Please dispose of unused excess opioids before your appointment or bring them with you to the appointment and we will help you dispose of them correctly. 10/24/2023 7:45 AM LABORATORY, [employer] Hematology and [place] [facility] [place] at: Field Property Loss Specialist Area [phone] 10/24/2023 8:45 AM Jean-Pierre Peña MD Hematology [place]cology [place] [facility] [place]rive at: Field Property Loss Specialist Area [phone] 10/24/2023 10:00 AM [facility] INFUSION THERAPY Hematology and [place]cology [place] [facility] [place]rive at: Field Property Loss Specialist Area [phone] 11/14/2023 7:45 AM SHAI SMITH Hematology and [place]cology [place] [facility] [place]rive at: Field Property Loss Specialist Area [phone] 11/14/2023 8:45 AM Jean-Pierre Peña MD Hematology [place] [facility] [place]rive at: Field Property Loss Specialist Area [phone] 11/14/2023 10:00 AM LEB INFUSION THERAPY Hematology [place]cology [place] [facility] [place]rive at: Field Property Loss Specialist Area [phone] 12/20/2023 2:15 PM Inderjit Vilchis MD Dermatology at [facility] Arrive at: Field Property Loss Specialist [address] [place] [address] documented in this encounter Medications at Time [...] Preciado MD - 09/16/2023 12:29 PM EDT [facility] [place] Note Patient Name: Keeley Gutierrez : [id number] MR#: [id number] Case Date: 09/16/2023 Surgeon: Surgeon(s) and Role: * Justa Preciado MD - Primary * Filippo Reilly MD - Resident - Assisting * Jordan Gonzalez PA - Physician Test Engineering Manager Preoperative diagnosis: melanoma Postoperative diagnosis: melanoma Procedure(s) [...] 2:15 PM EDT Office Visit Dermatology at [place] [address] [place] [address] Inderjit Vilchis MD [facility] DR GILBERTO [place] [address] 12/22/2023 10:00 AM EDT Office [place] [address] Norm Joy PA [facility] [place] [address] 12/26/2023 11:45 AM EDT Appointment Hematology and Oncology at [place] [phone] 12/26/2023 12:45 PM EDT Office Visit Hematology and Oncology at [place] [phone] Jean-Pierre Peña MD [facility] [place] [address] Vicky Burnham APRN [facility] [place] [address] 12/26/2023 2:30 PM EDT Appointment Hematology [place] [address] 02/06/2024 10:00 AM EDT Appointment Hematology [place] [address] 02/06/2024 12:45 PM EDT Office Visit Hematology and Oncology at [place] [phone] Jean-Pierre Peña MD [facility] DR [place] [address] Vicky Burnham APRN [facility] [place] [address] 02/06/2024 2:00 PM EDT Appointment Hematology [place] [address] documented as of this encounter Procedures Procedure [...] PM EDT Bx/Remv, Lymph Node, Deep Cerv ([id number]) 09/16/2023 11:48 AM EDT melanoma Radical/Resect Of Tumor, Soft Tissue Face Or Scalp, 2Cm Or Greater ([id number]) 09/16/2023 11:48 AM EDT melanoma BIOPSY OR EXC OF LYMPH NODES; OPEN, DEEP CERVICAL NODES Routine 09/16/2023 10:47 AM EDT documented in this encounter Results * Specimen to Pathology (09/16/2023 2:09 PM EDT) AP Specimen 09/16/2023 2:09 PM EDT 09/16/2023 2:09 PM EDT Narrative [facility] - 09/16/2023 2:09 PM EDT Specimen requisition ordered. ??Separate Pathology report to follow Justa Preciado MD PATHOLOGY/CYTOLOGY ORDERABLES Performing Organization Address [facility] Co de Phone Number [facility] [place] [address] * Specimen to Pathology (09/16/2023 1:25 PM EDT) AP Specimen 09/16/2023 1:25 PM EDT 09/16/2023 1:25 PM EDT Narrative [facility] - 09/16/2023 1:25 PM EDT Specimen requisition ordered. ??Separate Pathology report to follow Justa Preciado MD PATHOLOGY/CYTOLOGY ORDERABLES Performing Organization Address [facility]/ZIP Co de Phone Number [facility] [place] [address] * Specimen to Pathology (09/16/2023 1:25 PM EDT) AP Specimen 09/16/2023 1:25 PM EDT 09/16/2023 1:25 PM EDT Narrative [facility] - 09/16/2023 1:25 PM EDT Specimen requisition ordered. ??Separate Pathology report to follow Justa Preciado MD PATHOLOGY/CYTOLOGY ORDERABLES Performing Organization Address [facility] [place] [address] * Specimen to Pathology (09/16/2023 1:25 PM EDT) AP Specimen 09/16/2023 1:25 PM EDT 09/16/2023 1:25 PM EDT Narrative [facility] - 09/16/2023 1:25 PM EDT Specimen requisition ordered. ??Separate Pathology report to follow Justa Preciado MD PATHOLOGY/CYTOLOGY ORDERABLES Performing Organization Address [facility] [place] [address] * Surgical Pathology Report (09/16/2023 12:50 PM EDT) FINAL DIAGNOSIS (AP) [id number] ? Location: [facility]; [facility]; A The signing pathologist has (i) examined [...] David Verified: ??09/27/2023 10:12 ??Dermatopathologist Performed at: ??-[facility] [place] Dept. of Pathology, [place] [address] Human Resources Advisor: Johnnie Stephens MD, FCAP, ??CLIA Certificate: [id number] SYNOPTIC Specimen ? Procedure: ??Excision; ??Lymphadenectomy, regional [...] of Lymph Nodes Examined: ??6 ?Number of Mentor Nodes Examined: ??0 ? Pathologic Stage Classification (pTNM, AJCC 8th Edition) ?Pathologic Stage Classification: ??Classification assigned in this report ? includes information from a prior procedure - yes ?pT Category: ??pT4a . SYNOPTIC ?pN Category: ??pN1c Best Tumor Blocks for Future Studies ? Tumor Block(s): ??D10,12,14 ? Normal Block(s): ??D3 ? [facility] 2021 Q1 Release DISCUSSION Scanned images of the patient's prior biopsy ([id number]) have been reviewed. There is extensive residual [...] through D23/D24) ??ajw 09/27/2023 10:12 AM EDT [facility] SPECIMEN FROM SKIN / Unknown 09/16/2023 12:50 PM EDT 09/16/2023 12:50 PM EDT LYMPH NODE SPECIMEN / Unknown 09/16/2023 12:50 PM EDT 09/16/2023 12:50 PM EDT LYMPH NODE SPECIMEN / Unknown 09/16/2023 12:50 PM EDT 09/16/2023 12:50 PM EDT SPECIMEN FROM SKIN / Unknown 09/16/2023 12:50 PM EDT 09/16/2023 12:50 PM EDT Justa Preciado MD PATHOLOGY/CYTOLOGY ORDERABLES [facility] [place] [address] documented in this encounter Visit Diagnoses Not [...] Bag 09/16/2023 12:07 PM EDT 2 g lidocaine-EPINEPHrine (1% - 1:100,000) injection PRN, Starting on Tue09/16/23 at 1216, Until Tue09/16/23 at 1920, Intra-Operative (Intra-Procedure), Routine Given 09/16/2023 12:16 PM EDT 10 mLs 19- Surgical Site documented in this encounter Active and Recently [...] MD) documented in this encounter Care Teams Fur Cleaner Relationship Specialty Start Date End Date Taylor Bryant APRN [address] [place] [address] PCP - General 03/31/10 documented as of this encounter
--- OUTSIDE RECORDS SUMMARY | 2023-12-05 02:27 | XMS_ITS | Encounter Summary ---
Author Organization [facility] Address [facility] [place] [address] Care Team Providers Care Adult School Teacher Name Role Phone Taylor Bryant APRN Primary Care Provider [phone] Reason for Visit * Auth/Cert (Routine) Specialty [...] 20SQ CM OR LESS, EYELIDS (WRVU 11.64) Castro Preciado MD [facility] [place] [address] [facility] Referral ID Status Reason Start Date Expiration Date Visits Re quested Visits Authorized [id number] 1 1 Encounter Details Date Type Department Care Team (Late st Contact Info) Description 09/28/2023 11:42 AM EDT Anesthesia Event [place] [address] Jorge Luis Jasso MD [facility] [place] [address] Anesthesia Record Procedure Summary Procedure Name Responsible Anesthesiologist Anesthesia Start Time Anesthesia Stop Time ADJ.TISSUE TRANSFER, REARRANGEMENT, 10.1 TO 30 SQ.CM, SCALP (WRVU 9.72) (Right: Face) Jorge Luis Jasso MD 09/28/23 1142 09/28/23 1356 Events Date Time Event Comment 09/28/2023 0934 1142 AN Verify 1142 Start 1143 An Start Data 1150 An Induction 1153 An Intubation 1156 Anesthesia Ready 1219 Procedure Start 1348 Extubation/LMA Out 1350 an stop data 1355 Recovery or ICU Handoff Trina ent care was transferred to the destination unit staff after review of the patient's medical history, current anesthetic/surgical status and plan, according to the Provider Handoff Checklist. 1356 Stop Meds Name Total Midazolam 2 mg fentaNYL 100 mcg IV Lidocaine 70 mg Propofol 200 mg Rocuronium 70 mg PHENYLephrine 360 mcg Ondansetron 4 mg Dexamethasone 4 mg ceFAZolin (Ancef) 2 g vial a ttach to sodium chloride 0.9% 100 mL Mini-Bag Plus 2 g propofol INF 547.81 mg dexmedeTOMIDine 16 mcg HYDROmorphone 0.2 mg sugammadex 200 mg lactated ringers infusion 700 mL * Agents Name O2 * Blood No blood administrations on file. Lines, Drains, and Airways Type Details Placement Removal Incision 09/16/23; 1342; Right; scalp 03/01 1342 by Mabel Arndt RN Incision 09/28/23; 1223; Right; scalp 1223 by Kate Bar RN Incision 09/28/23; 1301; Righ t, anterior; thigh; skin graft harvest site 09/28/23 1301 by Sonu Ibarra RN Incision 09/16/23; 1229; Righ t; neck; 09/28/23; 1238 09/16/23 1229 by Mabel Arndt RN 09/28/23 1238 by Sonu Ibarra RN PIV 09/28/23; 0849; [id number]-[id number] catheter system; 20 gauge; metacarpal vein (top of hand), left; Anatomical Landmarks; GEMMA Brenner; distraction, tolerated well, appears comfortable; no longer indicated, site care per policy/procedure, catheter/device intact; 09/28/23; 1658 09/28/23 0849 by Babar Bar RN 09/28/23 1658 by Cassie Philippe RN ETT Mask Ventilation: Leonid riley (1); ETT Type: Cuffed, Oral; ETT Size: 7 mm; Mac Blade: 4; Notes: Asleep, Pre-O2, Stylette; Attempts: 1; Laryngoscopy Grade: 1; ETT Placement Verified By: Capnometry, Visual; Secured at Teeth: 22 cm; Inserted by: Blanca MONTOYA; Removal Date: 09/28/23; Removal Time: 1348 09/28/23 1153 by Jessica Rios 09/28/23 1348 by Jessica Rios PIV 09/28/23; 1239; tsza-hhn-hlfblw catheter system; 20 gauge; dorsal arch vein (top of foot), right; Anatomical Landmarks; US Not Used; Divya PARNELL; tolerated well; no longer indicated, removed per policy/procedure, catheter/device intact; 09/28/23; 1621 09/28/23 1239 by Alem Stokes, RENTAL CLERK 09/28/23 1621 by Cassie Philippe RN documented in this encounter Social History Tobacco Use Types Packs/Day Years Used Date Smoking Tobacco: Former Smokeless Tobacco: Never Comments:quit at age 35 Alcohol Use Standard Drinks/Week Comments Yes 0 (1 standard drink = 0.6 oz pur e alcohol) social gatherings [facility] Utilities Answer Date Recorded In the [...] on file documented as of this encounter OR Notes * Anesthesia Postprocedure Evaluation - Jorge Luis Jasso MD - 09/28/2023 2:50 PM EDT Department of Anesthesiology Post-procedure Note Patient: Keeley Gutierrez Procedure Summary Date: 09/28/23 Room / Location: [facility] OR [facility] MAIN OR Anesthesia Start: 1142 Anesthesia Stop: 1356 Procedures: ADJ.TISSUE TRANSFER, REARRANGEMENT, 10.1 TO 30 SQ.CM, SCALP (WRVU 9.72) (Right: Face) SPLIT THICKNESS SKIN SPLIT GRAFT,100SQ CM OR LESS, NECK (WRVU 10.15) (Right: Face) Diagnosis: (melanoma scalp) Surgeons: Castro Preciado MD Responsible Provider: Jorge Luis Jasso MD Anesthesia Type: general ASA Status: 2 All Anesthesia Providers: Anesthesiologist: Jorge Luis Jasso MD RENTAL CLERK: Alem Stokes CRNA Student Nurse Freelance [employer] Reporter: Jessica Rios Vitals Value Taken Time BP 122/65 09/28/23 1430 Temp 36.5 ??C (97.7 ??F) 09/28/23 1351 Pulse 86 09/28/23 1435 Resp 15 09/28/23 1435 SpO2 95 % 05/22/24 1433 Pain Level 4 09/28/23 1430 Vitals shown include unfiled device data. Patient Location: PACU/ALP Level of Consciousness: Awake and Alert Pain Management: Satisfactory Analgesia PONV: None Cardiovascular Status: At Baseline Respiratory Status: At Baseline Postoperative Fluid Status: Intravascular EUvolemia Possible Anesthetic Complications: NONE apparent at time of evaluation Final Primary Anesthesia Type: General (The anesthetic type performed was the same as planned.) Comments: * Anesthesia Preprocedure Evaluation - Jorge Luis Jasso MD - 09/27/2023 4:09 PM EDT Pre-Anesthesia Evaluation for: Keeley Gutierrez a 58 y.o. female. Procedure(s): EXC MALIGNANT LESION, 3.1. TO 4.0CM, SCALP (WRVU 3.62) BIOPSY OR EXCISION OF LYMPH NODE(S), OPEN, DEEP CERVICAL NODES (WRVU 6.74) Patient Active Problem List Diagnosis Date Noted ??? 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 Medication management 07/25/2023 ??? Bilateral knee pain 12/14/2017 ??? Psoriatic arthritis 06/09/2016 Past Medical History: Diagnosis Date ??? Psoriasis ??? Psoriatic arthritis ??? Skin rash Past Surgical History: Procedure Laterality Date ??? CHOLECYSTECTOMY ??? HYSTERECTOMY ??? KNEE SURGERY ??? PRO BX/REMV, LYMPH NODE, DEEP CERV Right 09/16/2023 BIOPSY OR EXCISION OF LYMPH NODE(S), OPEN, DEEP CERVICAL NODES (WRVU 6.74) performed by Castro Preciado MD at [facility] MAIN OR ??? PRO RADICAL RESECT OF TUMOR, SOFT TISSUE FACE OR SCALP, 2CM OR GREATER Right 09/16/2023 RADICAL RESECTION TUMOR SCALP; >2 CM (WRVU 15.26) performed by Castro Preciado MD at [facility] MAIN OR ??? TUBAL LIGATION Social History Tobacco Use ??? Smoking status: Former ??? Smokeless tobacco: Never ??? Tobacco comments: quit at age 35 Substance Use Topics ??? Alcohol use: Yes Comment: social gatherings Social History Substance and Sexual Activity Drug Use No Allergies Allergen Reactions ??? Codeine Phosphate CIS - vomit Medications: MAR and/or home medications have been reviewed. Physical Exam: Preprocedure Vitals Current as of 09/15/23 1321 No BP, pulse, respiration, SpO2, or temperature recorded. Height: 160 cm (5' 3) (08/18/23) Weight: 73.8 kg (162 lb 9.6 oz) (08/18/23) BMI: 28.8 IBW: 52.4 kg (115 lb 7.7 oz) Airway Assessment: Mallampati: II TM distance: >3 FB Neck ROM: full Cardiovascular Assessment: system normal Pulmonary Assessment: unlabored breathing Dental Assessment: (+) upper dentures and lower dentures Misc Assessment: IV access: Peripheral line Last Filed Perioperative Cognitive Screening None Anesthesia Plan: ASA 2 general, with a(n) intravenous induction 58 year-old woman with melanoma (neoadjuvant pembro) s/p excision of scalp lesion and cervical lymph node biopsies; now for tissue transfer graft bilateral for closure of melanoma defect. Chart and labs reviewed; patient seen and examined Anesthetic Hx: Remote PONV history after hysterectomy Prior MAC 3 Gr 1 view Assessment/Plan: ASA 2 GA/ETT (LUCY); routine monitors; 180 degree positioning Risks, plans, and procedures discussed with patient who understands and consents; questions and concerns addressed Region - Other Informed Consent: Anesthetic plan and risks discussed with patient. Plan discussed with RENTAL CLERK. Anesthesia Screening documented in this encounter Plan of Treatment Upcoming Encounters Date Type Department Care Team (Late st Contact Info) Description 12/20/2023 2:15 PM EDT Office Visit Dermatology at [place] [address] [place] [address] Inderjit Vilchis MD [facility] DR GILBERT[place] [address] 12/22/2023 10:00 AM EDT Office Visit [place] [address] Norm Joy PA [facility] [place] [place] [address] 12/26/2023 11:45 AM EDT Appointment Hematology and Oncology at [place] [address] 12/26/2023 12:45 PM EDT Office Visit Hematology and Oncology at [place] [address] Jean-Pierre Peña MD [facility] [address] [place] [address] Vicky Burnham APRN [facility] [place] [address] 12/26/2023 2:30 PM EDT Appointment Hematology and Oncology at [place] [phone] 02/06/2024 10:00 AM EDT Appointment Hematology and Oncology at [place] [address] 02/06/2024 12:45 PM EDT Office Visit Hematology and Oncology at [place] [phone] Jean-Pierre Peña MD [facility] DR [place] [address] Vicky Burnham MARKETING AUTOMATION MANAGER [facility] [place] [address] 02/06/2024 2:00 PM EDT Appointment Hematology and Oncology at [place] [phone] documented as of this encounter Visit Diagnoses Not on filedocumented in this encounter Administered Medications Inactive Administered Medications - up to 3 most recent administrations Medication Order MAR Action Action Date Dose Rate Site ceFAZolin (Ancef) 2 g vial attach to sodium chloride 0.9% 100 mL Mini-Bag Plus 2 g, Intravenous, ONCE, 1 dose, On Tue09/28/23 at 1130, Administer over 30 Minutes, Day of Surgery (Day of Procedure), Indication for (Active or Suspected): Prophylaxis New Bag 09/28/2023 11:59 AM EDT 2 g dexAMETHasone (Decadron) injection Intravenous, PRN, Starting on Tue09/28/23 at 1156, Until Tue09/28/23 at 1412, Anesthesia Intra-op, Routine Given 09/28/2023 11:56 AM EDT 4 mg dexmedeTOMIDine (Precedex) (4 mcg/mL) bolus injection (Anesthsia) Intravenous, PRN, Starting on Tue09/28/23 at 1158, Until Tue09/28/23 at 1412, Anesthesia Intra-op, Routine Given 09/28/2023 1:04 PM EDT 4 mcg Given 09/28/2023 12:20 PM EDT 4 mcg Given 09/28/2023 11:58 AM EDT 8 mcg fentaNYL (pf) (50 mcg/mL) multi-dose injection Intravenous, PRN, Starting on Tue09/28/23 at 1153, Until Tue09/28/23 at 1412, Anesthesia Intra-op, Routine Given 09/28/2023 12:20 PM EDT 50 mcg Given 09/28/2023 11:53 AM EDT 50 mcg HYDROmorphone (Dilaudid) (2 mg/mL) multi-dose injection solution Intravenous, PRN, Starting on Tue09/28/23 at 1341, Until Tue09/28/23 at 1412, Anesthesia Intra-op, Routine Given 09/28/2023 1:41 PM EDT 0.2 mg lactated ringers infusion 1,000 mL, at 100 mL/hr, Intravenous, CONTINUOUS, Starting on Tue09/28/23 at 0900, Until Tue09/28/23 at 1702, Day of Surgery (Day of Procedure) Restarted 09/28/2023 11:42 AM EDT New Bag 09/28/2023 9:07 AM EDT 1,000 mLs 100 mL/hr lidocaine (pf) (Xylocaine) (20 mg/mL) 2% injection syringe Intravenous, PRN, Starting on Tue09/28/23 at 1150, Until Tue09/28/23 at 1412, Anesthesia Intra-op, Routine Given 09/28/2023 11:50 AM EDT 70 mg midazolam (pf) (Versed) (1 mg/mL) multi-dose injection Intravenous, PRN, Starting on Tue09/28/23 at 1142, Until Tue09/28/23 at 1412, Anesthesia Intra-op, Routine Given 09/28/2023 11:47 AM EDT 1 mg Given 09/28/2023 11:42 AM EDT 1 mg ondansetron (pf) (Zofran) (2 mg/mL) injection Intravenous, PRN, Starting on Tue09/28/23 at 1337, Until Tue09/28/23 at 1412, Anesthesia Intra-op, Routine Given 09/28/2023 1:37 PM EDT 4 mg PHENYLephrine in NS (PF) (MAU-SYNEPHRINE) 0.8 mg/10 mL (80 mcg/mL) multi-dose injection Syringe Intravenous, PRN, Starting on Tue09/28/23 at 1234, Until Tue09/28/23 at 1412, Anesthesia Intra-op, Routine Given 09/28/2023 1:29 PM EDT 40 mcg Given 09/28/2023 1:19 PM EDT 40 mcg Given 09/28/2023 1:10 PM EDT 40 mcg propofoL (Diprivan) (10 mg/mL) infusion Intravenous, CONTINUOUS PRN, Starting on Tue09/28/23 at 1153, Until Tue09/28/23 at 1412, Anesthesia Intra-op, Routine Rate/Dose Change 09/28/2023 1:35 PM EDT 40 mcg/kg/min 15 mL/hr Rate/Dose Change 09/28/2023 12:28 PM EDT 75 mcg/kg/min 28. 125 mL/hr New Bag 09/28/2023 11:53 AM EDT 100 mcg/kg/min 37.5 mL/ hr propofoL (Diprivan) 10 mg/mL bolus injection (Anesthesia) Intravenous, PRN, Starting on Tue09/28/23 at 1150, Until Tue09/28/23 at 1412, Anesthesia Intra-op Given 09/28/2023 11:51 AM EDT 100 mg Given 09/28/2023 11:50 AM EDT 100 mg rocuronium (Zemuron) (10 mg/mL) multi-dose injection Intravenous, PRN, Starting on Tue09/28/23 at 1151, Until Tue09/28/23 at 1412, Anesthesia Intra-op, Routine Given 09/28/2023 12:20 PM EDT 20 mg Given 09/28/2023 11:51 AM EDT 50 mg sugammadex (Bridion) 100 mg/mL injection Intravenous, PRN, Starting on Tue09/28/23 at 1341, Until Tue09/28/23 at 1412, Anesthesia Intra-op, Routine Given 09/28/2023 1:41 PM EDT 200 mg documented in this encounter Care Teams Adult School Teacher Relationship Specialty Start Date End Date Taylor Bryant APRN [address] [place] [address] PCP - General 03/31/10 documented as of this encounter
--- OUTSIDE RECORDS SUMMARY | 2023-12-05 02:27 | XMS_ITS | Encounter Summary ---
Author Organization [facility] Address [facility] [place] [address] Care Team Providers Care Applied Psychology Teacher Name Role Phone Taylor Bryant APRN Primary Care Provider [phone] [phone] Reason for Visit * Auth/Cert (Routine) Specialty Diagnoses / Procedures Referred By Crista padron Referred To Contact Diagnoses Melanoma melanoma Procedures PRO EXC SKIN MALIG 3.1-4CM REMAINDR BODY PRO BX/REMV, LYMPH NODE, DEEP CERV EXC MALIGNANT LESION, 3.1. TO 4.0CM, SCALP (WRVU 3.62) BIOPSY OR EXCISION OF LYMPH NODE(S), OPEN, DEEP CERVICAL NODES (WRVU 6.74) Castro Preciado MD [facility] [place] [address] [facility] Referral ID Status Reason Start Date Expiration Date Visits Re quested Visits Authorized [id number] 1 1 Encounter Details Date Type Department Care Team (Late st Contact Info) Description 09/16/2023 11:48 AM EDT Anesthesia [place] [address] Des Mercedes MD [facility] [place] [address] Anesthesia Record Procedure Summary Procedure Name Responsible Anesthesiologist Anesthesia Start Time Anesthesia Stop Time RADICAL RESECTION TUMOR SCALP; >2 CM (WRVU 15.26) (Right: Face) Des Mercedes MD 09/16/23 1148 09/16/23 1455 Events Date Time Event Comment 09/16/2023 1124 1146 AN Verify 1148 Start 1148 An Start Data 1152 An Induction 1153 An Intubation 1158 Anesthesia Ready 1225 Break/Relief In I assumed ca re for Break Relief before which we: 1. Identified the patient 2. Identified the responsible provider(s) 3. Reviewed the pertinent medical history 4. Discussed the surgical plan and course 5. Reviewed intra-op anesthesia management and issues during anesthesia 6. Set expectations for the relief (and/or post-procedure) period 7. Allowed opportunity for questions and acknowledgement of understanding Armin Lo CRNA 1301 Break/Relief Out 1444 Extubation/LMA Out 1447 an stop data 1451 Recovery or ICU Handoff Trina ent care was transferred to the destination unit staff after review of the patient's medical history, current anesthetic/surgical status and plan, according to the Provider Handoff Checklist. 1455 Stop Meds Name Total Midazolam 2 mg fentaNYL 100 mcg IV Lidocaine 50 mg Propofol 200 mg PHENYLephrine 80 mcg Ondansetron 4 mg Dexamethasone 8 mg succinylcholine 80 mg propofol INF 475.85 mg dexmedeTOMIDine 20 mcg ceFAZolin (Ancef) 2 g vial a ttach to sodium chloride 0.9% 100 mL Mini-Bag Plus 2 g esmolol 50 mg PHENYLephrine INF 1,830 mcg HYDROmorphone 0.4 mg lactated ringers 900 mL * Agents Name O2 * Blood No blood administrations on file. Lines, Drains, and Airways Type Details Placement Removal Incision 09/16/23; 1342; Right; scalp 03/01 1342 by Mabel Arndt RN PIV 09/16/23; 1146; 20 g auge; median cubital vein (antecubital fossa), left; Anatomical Landmarks; Rodolfo Velasco CRNA; tolerated well; no longer indicated; 09/16/23; 1714 09/16/23 1146 by Sandy Velasco CRNA 09/16/23 1714 by Caitie Roberts, RN ETT Mask Ventilation: Leonid riley (1); ETT Type: Cuffed; ETT Size: 7 mm; Mac Blade: 3; Notes: Asleep, Pre-O2, Stylette; Attempts: 1; Laryngoscopy Grade: 1; ETT Placement Verified By: Auscultation, Capnometry; Secured at Teeth: 22 cm; Inserted by: Sandy Velasco CRNA; Removal Date: 09/16/23; Removal Time: 1446 09/16/23 1153 by Sandy Velasco CRNA 09/16/23 1446 by Sandy Velasco CRNA Incision 09/16/23; 1229; Righ t; neck; 09/28/23; 1238 09/16/23 1229 by Mabel Arndt RN 09/28/23 1238 by Sonu Ibarra RN documented in this encounter Social History [...] OR Notes * Anesthesia Postprocedure Evaluation - Des Mercedes MD - 09/19/2023 2:53 PM EDT Department of Anesthesiology Post-procedure Note Patient: Keeley Gutierrez Procedure Summary Date: 09/16/23 Room / Location: [facility] OR [facility] MAIN OR Anesthesia Start: 1148 Anesthesia Stop: 1455 Procedures: RADICAL RESECTION TUMOR SCALP; >2 CM (WRVU 15.26) (Right: Face) BIOPSY OR EXCISION OF LYMPH NODE(S), OPEN, DEEP CERVICAL NODES (WRVU 6.74) (Right: Neck) Diagnosis:(melanoma) Surgeons: Castro Preciado MD Responsible Provider: Des Mercedes MD Anesthesia Type: general ASA Status: 2 All Anesthesia Providers: Anesthesiologist: Des Mercedes MD [employer]URBINE ASSEMBLER: Sandy Velasco CRNA Vitals Value Taken Time BP 139/79 09/16/23 1645 Temp 36.5 ??C (97.7 ??F) 09/16/23 1645 Pulse 90 09/16/23 1600 Resp 20 09/16/23 1630 SpO2 96 % 09/16/23 1658 Pain Level 7 09/16/23 1630 Vitals shown include unfiled device data. Patient Location: PACU/[facility] Level of Consciousness: Awake and Alert Pain Management: Satisfactory Analgesia PONV: None Cardiovascular Status: At Baseline Respiratory Status: At Baseline Postoperative Fluid Status: Intravascular EUvolemia Possible Anesthetic Complications: NONE apparent at time of evaluation Final Primary Anesthesia Type: General (The anesthetic type performed was the same as planned.) Comments: * Anesthesia Preprocedure Evaluation - Des Mercedes MD - 09/15/2023 1:21 PM EDT Pre-Anesthesia Evaluation for: Keeley Gutierrez [...] CHOLECYSTECTOMY ??? HYSTERECTOMY ??? KNEE SURGERY ??? TUBAL LIGATION Social History Tobacco Use [...] 58 year-old woman with melanoma (neoadjuvant pembro) presenting for excision scalp lesion and cervical lymph node biopsies. Anesthetic Hx: Remote PONV history after hysterectomy Functional capacity: Adequate NPO status: OK Plan [place] Region - Other Informed Consent: Anesthetic plan and risks discussed with patient. Plan discussed with STEAM AND GAS TURBINE ASSEMBLER. Anesthesia Screening documented in this encounter Plan of Treatment Upcoming Encounters Date Type Department Care Team (Late st Contact Info) Description 12/20/2023 2:15 PM EDT Office Visit Dermatology at [facility] [address] [place] [address] Inderjit Vilchis MD [facility] DR GILBERTO [place] [address] 12/22/2023 10:00 AM EDT Office [place] [address] Norm Joy PA [facility] [place] [address] 12/26/2023 11:45 AM EDT Appointment Hematology [place] [address] 12/26/2023 12:45 PM EDT Office Visit Hematology [place] [address] Jean-Pierre Peña MD [facility] DR HEMATOLOGY [place] [address] Vicky Burnham APRN [facility] [place] [address] 12/26/2023 2:30 PM EDT Appointment Hematology [place] [address] 02/06/2024 10:00 AM EDT Appointment Hematology [place] [address] 02/06/2024 12:45 PM EDT Office Visit [place]ematology [place] [address] Jean-Pierre Peña MD [facility] DR HEMATOLOGY [place] [address] Vicyk Burnham APRN [facility] [place] [address] 02/06/2024 2:00 PM EDT Appointment Hematology [place] [address] documented as of this encounter Visit Diagnoses [...] Bag 09/16/2023 12:07 PM EDT 2 g dexAMETHasone (Decadron) injection Intravenous, PRN, Starting on Tue09/16/23 at 1209, Until Tue09/16/23 at 1509, Anesthesia Intra-op, Routine Given 09/16/2023 12:09 PM EDT 8 mg dexmedeTOMIDine (Precedex) (4 mcg/mL) bolus injection (Anesthsia) Intravenous, PRN, Starting on Tue09/16/23 at 1218, Until Tue09/16/23 at 1509, Anesthesia Intra-op, Routine Given 09/16/2023 1:05 PM EDT 8 mcg Given 09/16/2023 12:18 PM EDT 12 mcg esmoloL (Brevibloc) (10 mg/mL) injection Intravenous, PRN, Starting on Tue09/16/23 at 1209, Until Tue09/16/23 at 1509, Anesthesia Intra-op, Routine Given 09/16/2023 12:21 PM EDT 30 mg Given 09/16/2023 12:09 PM EDT 20 mg fentaNYL (pf) (50 mcg/mL) multi-dose injection Intravenous, PRN, Starting on Tue09/16/23 at 1148, Until Tue09/16/23 at 1509, Anesthesia Intra-op, Routine Given 09/16/2023 11:48 AM EDT 100 mcg HYDROmorphone (Dilaudid) (2 mg/mL) multi-dose injection solution Intravenous, PRN, Starting on Tue09/16/23 at 1304, Until Tue09/16/23 at 1509, Anesthesia Intra-op, Routine Given 09/16/2023 1:04 PM EDT 0.4 mg lactated ringers infusion Intravenous, CONTINUOUS PRN, Starting on Tue09/16/23 at 1145, Until Tue09/16/23 at 1509, Anesthesia Intra-op New Bag 09/16/2023 11:45 AM EDT lidocaine (pf) (Xylocaine) (20 mg/mL) 2% injection syringe Intravenous, PRN, Starting on Tue09/16/23 at 1152, Until Tue09/16/23 at 1509, Anesthesia Intra-op, Routine Given 09/16/2023 11:52 AM EDT 50 mg midazolam (pf) (Versed) (1 mg/mL) multi-dose injection Intravenous, PRN, Starting on Tue09/16/23 at 1146, Until Tue09/16/23 at 1509, Anesthesia Intra-op, Routine Given 09/16/2023 11:46 AM EDT 2 mg ondansetron (pf) (Zofran) (2 mg/mL) injection Intravenous, PRN, Starting on Tue09/16/23 at 1436, Until Tue09/16/23 at 1509, Anesthesia Intra-op, Routine Given 09/16/2023 2:36 PM EDT 4 mg PHENYLephrine (Jose R-Synephrine) (80 mcg/mL) in sodium chloride 0.9% 250 mL infusion Intravenous, CONTINUOUS PRN, Starting on Tue09/16/23 at 1232, Until Tue09/16/23 at 1509, Anesthesia Intra-op, Routine Rate/Dose Change 09/16/2023 2:00 PM EDT 20 mcg/min 15 mL/hr Rate/Dose Change 09/16/2023 12:51 PM EDT 10 mcg/min 7.5 mL /hr Rate/Dose Change 09/16/2023 12:34 PM EDT 20 mcg/min 15 mL/ hr PHENYLephrine in NS (PF) (JOSE R-SYNEPHRINE) 0.8 mg/10 mL (80 mcg/mL) multi-dose injection Syringe Intravenous, PRN, Starting on Tue09/16/23 at 1232, Until Tue09/16/23 at 1509, Anesthesia Intra-op, Routine Given 09/16/2023 12:32 PM EDT 80 mcg propofoL (Diprivan) (10 mg/mL) infusion Intravenous, CONTINUOUS PRN, Starting on Tue09/16/23 at 1201, Until Tue09/16/23 at 1509, Anesthesia Intra-op, Routine New Bag 09/16/2023 12:01 PM EDT 50 mcg/kg/min 18.42 mL/hr propofoL (Diprivan) 10 mg/mL bolus injection (Anesthesia) Intravenous, PRN, Starting on Tue09/16/23 at 1152, Until Tue09/16/23 at 1509, Anesthesia Intra-op Given 09/16/2023 11:56 AM EDT 50 mg Given 09/16/2023 11:52 AM EDT 150 mg succinylcholine (Anectine;Quelicin) (20 mg/mL) injection Intravenous, PRN, Starting on Tue09/16/23 at 1152, Until Tue09/16/23 at 1509, Anesthesia Intra-op, Routine Given 09/16/2023 11:52 AM EDT 80 mg documented in this encounter Care Teams Applied Psychology Teacher Relationship Specialty Start Date End Date Taylor Bryant APRN [address] [place] [id number] PCP - General 03/31/10 documented as of this encounter
--- OUTSIDE RECORDS SUMMARY | 2023-12-05 02:27 | XMS_ITS | Encounter Summary ---
Author Organization [facility] Address [facility] [place] [address] Care Team Providers Care Rn Support Services Name Role Phone Taylor Bryant APRN Primary Care Provider [phone] [phone] Reason for Visit * Reason Comments Prior Authorization Анна Encounter Details Date Type Department Care Team ([facility] st Contact Info) Description 08/23/2023 Specialty Pharmacy Pharmacy at [facility] [place] [phone] Cristiano Ruvalcaba, FOUNTAIN MANAGER Social History Tobacco Use Types Packs/Day Years Used Date Smoking Tobacco: Former Smokeless Tobacco: Never Comments:quit at age 35 Alcohol Use Standard Drinks/Week Comments Yes 0 (1 standard drink = 0.6 oz pur e alcohol) social gatherings [facility] Utilities Answer Date Recorded In [...] as of this encounter Progress Notes * Cristiano Ruvalcaba P - 08/23/2023 11:29 AM EDT D Specialty Pharmacy, Benefits Investigation Patient: Keeley Gutierrez Patient : 1965 Patient Address: [address] [place] [address] (home) Medication Name: TAFINLAR 75 MG CAPSULE Medication ID: Patient Location: [facility] HEM ONC 3K Patient Location Comment: Medication Strength Frequency Requested: Take two capsules by mouth twice a day Qty/Day Supply: 120/30 New Start: New to Therapy Diagnosis & ICD-10 Code: Malignant melanoma Subscriber Insurance: Subscriber Insurance Comment: Insurance ID: Phone: Fax: Physician: SHARATH PEÑA Physician Comment : PA Status: PA Not Needed Insurance mandated Pharmacy: Fillable at [facility] [place] Specialty Pharmacy: Yes Insurance requirements/notes: None Copay: 03.28 Copay assistance: None Copay assistance comment: Pharmacy staff will be reaching out to the patient to inform them of their medication's [facility]. If applicable, a pharmacist will speak with the patient to offer our specialty pharmacy services and to arrange delivery of their medication. Cristiano Ruvalcaba 08/23/23 11:36 AM documented in this encounter Plan of Treatment Upcoming Encounters Date Type Department Care Team (Late st Contact Info) Description 12/20/2023 2:15 PM EDT Office Visit Dermatology at [place] [address] [place] [address] Inderjit Vilchis MD [facility] DR GILBERTO [place] [address] 12/22/2023 10:00 AM EDT Office [place] [address] Norm Joy PA [facility] [place] [place] [address] 12/26/2023 11:45 AM EDT Appointment Hematology [place] [address] 12/26/2023 12:45 PM EDT Office Visit Hematology [place] [address] Sharath Peña MD [facility] DR [place] [address] Vicky Burnham APRN [facility] [place] [address] 12/26/2023 2:30 PM EDT Appointment Hematology [place] [address] 02/06/2024 10:00 AM EDT Appointment Hematology [place] [address] 02/06/2024 12:45 PM EDT Office Visit Hematology [place] [address] Sharath Peña MD [facility] DR [place] [address] Vicky Burnham APRN [facility] [place] [address] 02/06/2024 2:00 PM EDT Appointment Hematology [place] [address] documented as of this encounter Visit Diagnoses Not on filedocumented in this encounter Care Teams Rn Support Services Relationship Specialty Start Date End Date Taylor Bryant APRN [address] [place] [address] PCP - General 03/31/10 documented as of this encounter
--- OUTSIDE RECORDS SUMMARY | 2023-12-05 02:27 | XMS_ITS | Encounter Summary ---
Author Organization [facility] Address [facility] [place] [address] Care Team Providers Care Attendant Lodging Facilities Name Role Phone Taylor Bryant APRN Primary Care Provider [phone] [phone] Reason for Visit * Reason Comments Prior Authorization [employer] Encounter Details Date Type Department Care Team (Late st Contact Info) Description 08/23/2023 Specialty Pharmacy Pharmacy at [facility] [place] [place] [address] Cristiano Ruvalcaba, RUBBER FLAP TUBER MACHINE OPERATOR Social History Tobacco Use Types Packs/Day Years [...] place to sleep or slept in a long term (including now)? No 07/24/2023 Sex and Gender Information Value Date Recorded Sex Assigned at Not on file Gender Identity Not on file Sexual Orientation Not on file documented as of this encounter Progress Notes * Cristinao Ruvalcaba P - 08/23/2023 11:19 AM EDT D-H Specialty Pharmacy, Benefits Investigation Patient: Keeley Gutierrez Patient : 1965 Patient Address: [address] [place] [address] (home) Medication Name: MEKINIST 2 MG TABLET Medication ID: Patient Location: [facility] HEM ONC 3K Patient Location Comment: Medication Strength Frequency Requested: Take one tablet by mouth daily Qty/Day Supply: New Start: New to Therapy Diagnosis & ICD-10 Code: 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 If applicable, a pharmacist will speak with the patient to offer our specialty pharmacy services and to arrange delivery of their medication. Crisitano Ruvalcaba 08/23/23 11:28 AM documented in this encounter Plan of Treatment Upcoming Encounters Date Type Department Care Team (Late st Contact Info) Description 12/20/2023 2:15 PM EDT Office Visit Dermatology at [facility] [address] [place] [address] Inderjit Vilchis MD [facility] DR GILBERTO [place] [address] 12/22/2023 10:00 AM EDT Office Visit [place] [phone] Norm Joy PA [facility] [place] [address] 12/26/2023 11:45 AM EDT Appointment Hematology [place] [address] 12/26/2023 12:45 PM EDT Office Visit Hematology [place] [address]1000 Sharath Peña MD [facility] DR HEMATOLOGY [place] [address] Vicky Burnham APRN [facility] [place] [address] 12/26/2023 2:30 PM EDT Appointment Hematology [place] [address] 02/06/2024 10:00 AM EDT Appointment Hematology [place] [address]1000 02/06/2024 12:45 PM EDT Office Visit Hematology [place] [address] Sharath Peña MD [facility] DR HEMATOLOGY [place] [address] Vicky Burnham APRN [facility] [place] [address] 02/06/2024 2:00 PM EDT Appointment Hematology [place] [address] documented as of this encounter Visit Diagnoses Not on filedocumented in this encounter Care Teams Attendant Lodging Facilities Relationship Specialty Start Date End Date Taylor Bryant APRN [address] [place] [address] PCP - General 03/31/10 documented as of this encounter
--- OUTSIDE RECORDS SUMMARY | 2023-12-05 02:27 | XMS_ITS | Encounter Summary ---
Author Organization [facility] Address [facility] [address] Care Team Providers Care Air Table Operator Name Role Phone Taylor Bryant APRN Primary Care Provider [phone] [phone] Encounter Details Date Type Department Care Team (Latest Contact Info) Description 09/16/2023 Travel Social History Tobacco Use Types Packs/Day Years Used Date Smoking Tobacco: Former Smokeless Tobacco: Never Comments:quit at age 35 Alcohol Use Standard Drinks/Week Comments Yes 0 (1 standard drink = 0.6 oz pur e alcohol) social gatherings [facility] Utilities Answer Date Recorded In the [...] to sleep or slept in a senior care (including now)? No 07/24/2023 [facility] Inpatient Questions Answer Date Recorded Does Anyone [...] 2:15 PM EDT Office Visit Dermatology at [facility] [address] [place] [address] Inderjit Vilchis MD [facility] DR GILBERTO [place] [address] 12/22/2023 10:00 AM EDT Office Visit [place] [address]1000 Norm Joy PA [facility] [place] [address] 12/26/2023 11:45 AM EDT Appointment Hematology [place] [address] 12/26/2023 12:45 PM EDT Office Visit Hematology [place] [address]1000 Jean-Pierre Peña MD [facility] [place] [address] Vicky Burnham APRN [facility] [place] [address] 12/26/2023 2:30 PM EDT Appointment Hematology [place] [address] 02/06/2024 10:00 AM EDT Appointment Hematology [place] [address] 02/06/2024 12:45 PM EDT Office Visit Hematology [place] [address] Jean-Pierre Peña MD [facility] DR [place] [address] Vicky Burnham CANINE SERVICE INSTRUCTOR TRAINER [facility] [place] [address] 02/06/2024 2:00 PM EDT Appointment Hematology [place] [address] documented as of this encounter Visit Diagnoses Not on filedocumented in this encounter Care Teams Air Table Operator Relationship Specialty Start Date End Date Taylor Bryant APRN [address] [place] [address] PCP - General 03/31/10 documented as of this encounter
--- OUTSIDE RECORDS SUMMARY | 2023-12-05 02:27 | XMS_ITS | Encounter Summary ---
Author Organization [facility] Address [facility] [place] [address] Care Team Providers Care Bowling Ball Grader And Marker Name Role Phone Taylor Bryant ZARA Primary Care Provider [phone] Reason for Visit * Reason Comments Follow-up Encounter Details Date Type Department Care Team ([facility] st Contact Info) Description 09/12/2023 8:45 AM EDT Office Visit [place] [address] Jean-Pierre Peña MD [facility] DR [place] [address] Emily Yao APRN [facility] [place] [address] Malignant melanoma of scalp; Secondary malignancy of soft tissue; Medication management; Immunotherapy Social History Tobacco Use Types Packs/Day Years Used Date Smoking Tobacco: Former Smokeless Tobacco: Never Comments:quit at age 35 Alcohol Use Standard Drinks/Week Comments Yes 0 (1 standard drink = 0.6 oz pur e alcohol) social gatherings [facility] Utilities Answer Date Recorded In the past 12 months has [employer] electric, gas, oil, or water company threatened [...] in a alf (including now)? No 07/24/2023 Sex and Gender Information Value Date Recorded Sex Assigned at Not on file Gender Identity Not on file Sexual Orientation Not on file documented as of this encounter Last Filed Vital Signs Vital Sign Reading Time Taken Comments Blood Pressure 119/77 09/12/2023 8:51 AM EDT Pulse 80 09/12/2023 8:51 AM EDT Temperature 35.5 ??C (95.9 ??F) 09/12/2023 8:51 AM ED T Respiratory Rate 16 09/12/2023 8:51 AM EDT Oxygen Saturation 99% 09/12/2023 8:51 AM EDT Inhaled Oxygen Concentration - - Weight 71.1 kg (156 lb 12 oz) 09/12/2023 8:51 AM EDT Height 163.6 cm (5' 4.41) 09/12/2023 8:51 AM ED T Body Mass Index 26.56 09/12/2023 8:51 AM EDT documented in this encounter Progress Notes * Jean-Pierre Peña MD - 09/12/2023 8:45 AM EDT Images from the original note were not included. [facility] NOTE REFERING PHYSICIAN: DIAGNOSIS: Right occipital scalp melanoma PATH: Malignant melanoma At least T2a 1.5 mm depth with positive margin 6 mitosis BRAF V600K/R variant. CURRENT TX: Cycle #2 pembrolizumab on 09/12/2023 Cycle #1 pembrolizumab on 08/23/2023 s/p right neck biopsy on 08/09/2023-> negative [...] 08/23/2023 Cycle #2 pembrolizumab on 09/12/2023 Surgery planned on 09/16/[address] Preciado History of psoriatic arthritis over 20 years [...] options. INTERVAL HISTORY: The patient is here for cycle #2 pembrolizumab. Except slight more prominent left knee pain, overall she tolerated well with cycle #1 pembrolizumab. According to her her scalp lesions initially showed increasing thickness immediately after cycle #1pembrolizumab but now she feels lesions are less elevated and scaly. She feels more itchiness. No bleeding was observed from scalp lesions. Otherwise no obvious pembrolizumab related toxicity except above-mentioned left knee pain with someswelling. REVIEW OF SYSTEMS: Constitutional: No recent weight loss, no fever, no fatigue, No dizziness. Occasional headache. Eyes: Negative, no visual change ENT: No hearing change Cardiovascular: Negative Respiratory: Negative Gastrointestinal: Negative, Genitourinary: Negative Musculoskeletal: No new joint pain, known joint pain mainly in her knee, more prominent left knee pain after cycle #1 pembrolizumab, the patient has history of known Psoriatec arthritis Skin: No rash, Neurological: Negative, no focal weakness Psychiatric: stable mood PAST MEDICAL HISTORY: Past Medical History: Diagnosis Date Psoriasis Psoriatic arthritis Skin rash Past Surgical History: Procedure Laterality Date CHOLECYSTECTOMY HYSTERECTOMY KNEE SURGERY TUBAL LIGATION MEDS: FLUoxetine, Ibuprofen, cholecalciferol (Vitamin D3), dabrafenib, elderberry fruit, and trametinib ALLERGY: Codeine with nausea vomiting Allergies Allergen [...] quit at age 35 Vaping Use Vaping Use: Never used Substance and Sexual Activity Alcohol use: Yes [...] Activity: Not on file Intimate Partner Violence: Not on file Housing Stability: Low Risk (07/24/2023) Housing Stability Vital Sign Unable to Pay for Housing in the Last Year: No Number of Places Lived in the Last Year: 1 Unstable Housing in the Last Year: No PHYSICAL EXAM: PS= 1 close to 0 General: not in acute distress. in good mood and spirits BP 119/77 (Patient Position: Sitting) Pulse 80 Temp 35.5 ??C (95.9 ??F) (Temporal) Resp 16 Ht 163.6 cm (5' 4.41) Wt 71.1 kg (156 lb 12 oz) SpO2 99% BMI 26.56 kg/m?? Eyes: Not icteric, not injected Oral: Not examined Neck: Supple. No obvious palpable lymphadenopathy. Lungs: Bilaterally clear to auscultation, No wheezing, No crackles Heart: Regular rate and rhythm. Abdomen: Soft, no tenderness, no mass, normal active bowel sounds. Extremities: No edema. Swelling left knee visible from outside wearing jeans Skin: No obvious rash Pigmented scalp lesion with several erythematous nodules appears to be less elevated and more scalycomparing to 3 weeks ago Neuro: No focal weakness LABS: Unremarkable CBCD and CMP except ALT 40 Unremarkable thyroid function test LDH 187 IMAGING STUDIES: Brain MRI on 08/01/2023 Negative [...] pembrolizumab on 08/23/2023 Cycle #2 on 09/12/2023 Surgery planned on 09/16/[address] Preciado Scalp lesions appear to be less elevated comparing to 3 weeks ago prior to cycle #1 pembrolizumab. Labs unremarkable except slightly elevated ALT 40. After discussion we decided to proceed with cycle #2 pembrolizumab. The patient will have scheduled surgery on 09/16/2023. As long as she remains stable I will have her come back in 3 weeks for cycle #1 adjuvant pembrolizumab pending final path results including and sentinel lymph node status. Pt was instructed to call our clinic with any new symptom or any questions. Jean-Pierre Peña MD Surgery on 09/16/[address] Preciado RTC in 3 6 9 weeks with labs and pembrolizumab documented in this encounter Plan of Treatment Upcoming Encounters Date Type Department Care Team (Late st Contact Info) Description 12/20/2023 2:15 PM EDT Office Visit Dermatology at [facility] [place] [address] Inderjit Vilchis MD [facility] DR GILBERT[place] [address] 12/22/2023 10:00 AM EDT Office [place] [address] Norm Joy PA [facility] [place] [address] 12/26/2023 11:45 AM EDT Appointment [place]ology [place] [address] 12/26/2023 12:45 PM EDT Office Visit [place] [address] Jean-Pierre Peña MD [facility] DR [place] [address] Vicky Burnham APRN [facility] [place] [address] 12/26/2023 2:30 PM EDT Appointment [place] [address] 02/06/2024 10:00 AM EDT Appointment [place] [address] 02/06/2024 12:45 PM EDT Office Visit [place] [address] Jean-Pierre Peña MD [facility] DR [place] [address] Vicky Burnham APRN [facility] [place] [address] 02/06/2024 2:00 PM EDT Appointment [place] [address] documented as of this encounter Visit Diagnoses Diagnosis Malignant melanoma of scalp Malignant melanoma of skin of scalp and neck Secondary malignancy of soft tissue Medication management Encounter for long-term (current) use of other medications Immunotherapy Reserved for inherently not codable concepts WITHOUT codable children documented in this encounter Care Teams Bowling Ball Grader And Marker Relationship Specialty Start Date End Date Taylor Bryant APRN [address] [place] [address] PCP - General 03/31/10 documented as of this encounter
--- OUTSIDE RECORDS SUMMARY | 2023-12-05 02:27 | XMS_ITS | Encounter Summary ---
Author Organization [facility] Address [facility] [place] [address] Care Team Providers Care Fixture Builder Name Role Phone Taylor Bryant APRN Primary Care Provider [phone] Encounter Details Date Type Department Care Team ([facility] st Contact Info) Description 09/06/2023 2:30 PM EDT Office Visit Dermatology at [facility] [address] [place] [address] Inderjit Argueta MD [facility] DR GILBERTO [place] [address] Malignant melanoma, unspecified site Social History Tobacco Use Types Packs/Day Years Used Date Smoking Tobacco: Former Smokeless Tobacco: Never Comments:quit at age 35 Alcohol Use Standard Drinks/Week Comments Yes 0 (1 standard drink = 0.6 oz pur e alcohol) social gatherings [facility] Utilities Answer Date Recorded In the past 12 months has e electric, gas, oil, or water [employer] threatened to shut off services in your [...] in a half-way (including now)? No 07/24/2023 Sex and Gender Information Value Date Recorded Sex Assigned at Not on file Gender Identity Not on file Sexual Orientation Not on file documented as of this encounter Progress Notes * Inderjit Argueta MD - 09/06/2023 2:30 PM EDT Images from the original note were not included. DEPARTMENT OF DERMATOLOGY Medical Dermatology Clinic Provider: INDERJIT ARGUETA MD Patient's preferred name Keeley Preferred contact method for results [x]Phone []myD-H []Letter Detailed phone message OK? yes Are there any other people with whom we may discuss your care? 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 Patient returns to clinic today for follow up on melanoma. Jose R-adjuvant approach with Pembrolizumab. No excision yet, but scheduled. Feels well on immunotherapy. - discussed other skin lesions, melanoma and her course. Positive attitude. Will follow her closelyafter surgery. 3-4 months. Last visit at Dermatology: 07/12/2023 Last visit with this provider: 07/12/2023 Medications: Reviewed in eD-H Allergies: Reviewed in eD-H Skin Examination: Focused skin examination of the scalp was normal with the exception of the findings below. Assessment/Plan # Malignant Melanoma - at least 1.5mm Breslow depth, right occipital scalp - Discussed diagnosis and answered all patients questions and concerns - No obvious palpable nodes. - Reviewed treatment plan. Pembrolizumab infusions. Excision scheduled for 09/16/[address] Preciado Figure 1. Deep melanoma, nodes, Jose R-Adjuvant approach to therapy, patient thinks the tumor is smaller Photo(s) taken and charted with patient's verbal consent. Other: N/A RTC: 3-4 months MSE/FSE []Note routed to receptionist secretary []Recall placed in scheduling system [x]Appointment scheduled at checkout Scribe attestation: Keith Bentley LPN has performed the documentation for this encounter in the presence of and acting as a scribe for INDERJIT ARGUETA MD. I performed the above scribed service and agree with the accuracy of the documentation in this encounter. Reviewed and signed by: INDERJIT ARGUETA MD Dermatology [facility] documented in this encounter Plan of Treatment Upcoming Encounters Date Type Department Care Team (Late st Contact Info) Description 12/20/2023 2:15 PM EDT Office Visit Dermatology at [address] [address] Inderjit Argueta MD [facility] DR GILBERTO [place] [address] 12/22/2023 10:00 AM EDT Office [place] [address] Norm Joy PA [facility] [place] [address] 12/26/2023 11:45 AM EDT Appointment Hematology [place] [address] 12/26/2023 12:45 PM EDT Office Visit Hematology [place] [address] Jean-Pierre Peña MD [facility] DR H[place]ATOLOGY [place] [address] Vicky Burnham APRN [facility] [place] [address] 12/26/2023 2:30 PM EDT Appointment Hematology and Oncology at [place] [phone] 02/06/2024 10:00 AM EDT Appointment Hematology [place] [address] 02/06/2024 12:45 PM EDT Office Visit Hematology and Oncology at [place] [phone] Jean-Pierre Peña MD [facility] DR HEMATOLOGY [place] [address] Vicky Burnham RACQUET MAKER [facility] [place] [address] 02/06/2024 2:00 PM EDT Appointment Hematology [place] [address] documented as of this encounter Visit Diagnoses Diagnosis Malignant melanoma, unspecified site documented in this encounter Care Teams Fixture Builder Relationship Specialty Start Date End Date Taylor Bryant APRN [address] [place] [address] PCP - General 03/31/10 documented as of this encounter
--- OUTSIDE RECORDS SUMMARY | 2023-12-05 02:27 | XMS_ITS | Encounter Summary ---
Author Organization [facility] Address [facility] [place] [address] Care Team Providers Care Landing Scaler Name Role Phone Taylor Bryant APRN Primary Care Provider [phone] Encounter Details Date Type Department Care Team (Latest Contact Info) Description 09/04/2023 Travel Social History Tobacco Use Types Packs/Day Years Used Date Smoking Tobacco: Former Smokeless Tobacco: Never Comments:quit at age 35 Alcohol Use Standard Drinks/Week Comments Yes 0 (1 standard drink = 0.6 oz pur e alcohol) social gatherings [facility] Utilities Answer Date Recorded In [...] a senior living (including now)? No 07/24/2023 Sex and Gender Information Value Date Recorded Sex Assigned at Not on file Gender Identity Not on file Sexual Orientation Not on file documented as of this encounter Plan of Treatment Upcoming Encounters Date Type Department Care Team (Late st Contact Info) Description 12/20/2023 2:15 PM EDT Office Visit Dermatology at [facility] [address] [place] [address] Inderjit Vilchis MD [facility] DR GILBERTO [place] [address] 12/22/2023 10:00 AM EDT Office [place] [address] Norm Joy PA [facility] [place] [address] 12/26/2023 11:45 AM EDT Appointment Hematology [place] [address] 12/26/2023 12:45 PM EDT Office Visit Hematology [place] [address] Jean-Pierre Peña MD [facility] DR HEMATOLOGY [place] [address] Vicky Burnham APRN [facility] [place] [address] 12/26/2023 2:30 PM EDT Appointment Hematology [place] [address] 02/06/2024 10:00 AM EDT Appointment Hematology [place] [address] 02/06/2024 12:45 PM EDT Office Visit Hematology [place] [address] Jean-Pierre Peña MD [facility] DR HEMATOLOGY [place] [address] Vicky Burnham APRN [facility] [place] [address] 02/06/2024 2:00 PM EDT Appointment Hematology [place] [address] documented as of this encounter Visit Diagnoses Not on filedocumented in this encounter Care Teams Landing Scaler Relationship Specialty Start Date End Date Taylor Bryant, ESCALATOR ATTENDANT [address] [place] [address] PCP - General 03/31/10 documented as of this encounter
--- OUTSIDE RECORDS SUMMARY | 2023-12-05 02:27 | XMS_ITS | Encounter Summary ---
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 No 07/24/2023 Sex and [...] as needed. documented as of this encounter Plan of Treatment Upcoming Encounters Date Type Department Care Team (Late st Contact Info) Description 12/20/2023 2:15 PM EDT Office Visit Dermatology at [facility] [address] [place] [address] Inderjit Vilchis MD [facility] DR GILBERTO [place] [address] 12/22/2023 10:00 AM EDT Office Visit Otolaryngology at [address] Norm Joy PA [facility] [place] [address] 12/26/2023 11:45 AM EDT Appointment Hematology and Oncology at [place] [id number] 12/26/2023 12:45 PM EDT Office Visit Hematology and Oncology at [place] [id number] Jean-Pierre Peña MD [facility] DR [place] [address] Vicky Burnham APRN [facility] [place] [address] 12/26/2023 2:30 PM EDT Appointment Hematology and Oncology at [place] [id number] 02/06/2024 10:00 AM EDT Appointment Hematology and Oncology at [place] [id number] 02/06/2024 12:45 PM EDT Office Visit Hematology and Oncology at [place] [phone] Jean-Pierre Peña MD [facility] DR [place] [address] Vicky Burnham APRN 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, unspecified lymph node region DIFFERENTIAL, AUTOMATED STAT 09/12/2023 7:45 AM EDT Medication management [...] in this encounter Results * Differential, Automated (09/12/2023 7:45 AM EDT) Neutrophils % 67.3 % [facility] Neutr Abs (ANC) 4.42 1.70 - 6.10 x10(3)/mcL [facility] Lymphocytes % 17.2 % [facility] Lymphocytes Abs 1.1 0.9 - 3.2 x10(3)/[facility] Monocytes % 10.5 % [facility] Monocyte Abs 0.7 0.3 - 0.9 x10(3)/[facility] Eosinophils % 4.1 % [facility] Eosinophils Abs 0.3 0.0 - 0.4 x10(3)/[facility] Basophils % 0.6 % [facility] Basophils Abs 0.0 0.0 - 0.1 x10(3)/[facility] Immature Gran % 0.30 % [facility] Comment: Immature granulocytes(IG's)percentage and absolute count will include metamyelocytes, myelocytes, and promyelocytes. Blood smears from CBCs yielding IG's will be scanned manually for concordance. If this scan disagrees with the automated IG or if promyelocytes are noted, a manual differential will be performed. Funmi Gran Abs 0.02 0.00 - 0.04 x10(3)/[facility] Blood 09/12/2023 7:45 AM EDT 09/12/2023 8:01 AM EDT Narrative Resulting Agency Comment Spec In Lab Jean-Pierre Peña MD HEMATOLOGY ORDERABLE S [facility] [place] [address] * (ABNORMAL) Hemogram (09/12/2023 7:45 AM EDT) WBC 6.6 4.0 - 9.5 x10(3)/[facility] RBC 4.10 4.00 - 5.21 x10(6)/[facility] Hemoglobin 12.6 11.7 - 15.5 g/dL [facility] Hematocrit 37.9 35.7 - 45.8 % [facility] MCV 92.4 82.6 - 94.4 [facility] MCH 30.7 27.1 - 32.0 pg [facility] MCHC 33.2 31.7 - 35.0 g/dL [facility] Platelets 305 145 - 357 x10(3)/[facility] RDWSD 46.4(H) 37.0 - 46.0 fL [facility] RDWCV 13.5 11.5 - 14.1 % [facility] MPV 10.7 7.6 - 12.9 [facility] nRBC % Auto 0.0 % [facility] nRBC Abs Auto 0.000 0.000 - 0.000 x10(3)/[facility] Blood 09/12/2023 7:45 AM EDT 09/12/2023 8:01 AM EDT Narrative Resulting Agency Comment Spec In Lab Jean-Pierre Peña MD HEMATOLOGY ORDERABLE S [facility] [place] [address] * (ABNORMAL) Comprehensive metabolic panel (non-fasting) (09/12/2023 7:45 AM EDT) Glucose Lvl 88 65 - 199 mg/dL [facility] Comment:Diabetes: >=200 mg/d L plus symptoms BUN 22(H) 8 - 18 mg/dL [facility] Creatinine 0.87 0.70 - 1.20 mg/dL [facility] Sodium 143 135 - 145 mmol/L [facility] Potassium 4.6 3.5 - 5.0 mmol/L [facility] Comment: Please note: ??Patients with WBC >100,000 may have falsely elevated Potassium levels. ??For accurate Potassium quantification in these patients send serum separator tube (gold top) for subsequent determinations. ??Contact the Clinical Chemistry Laboratory if there are any questions. Chloride 108(H) 98 - 107 mmol/L [facility] CO2 26 22 - 31 mmol/L [facility] Anion Gap 9 5 - 15 mmol/L [facility] Calcium 9.6 8.5 - 10.5 mg/dL [facility] Total Protein 6.9 6.1 - 8.0 g/dL [facility] Albumin 4.3 3.2 - 5.2 g/dL [facility] AST 30 0 - 30 unit/L [facility] ALT 40(H) 0 - 30 unit/L [facility] Alk Phos 94 35 - 105 unit/L [facility] Total Bilirubin 0.5 0.2 - 1.3 mg/dL [facility] Estimated GFR 77 >=60 mL/min/1. 73 m?? [facility] [...] Peña MD CHEMISTRY ORDERABLES [facility] [place] [address] * TSH (09/12/2023 7:45 AM EDT) TSH 1.42 0.27 - 4.20 mcIU/mL [facility] Comment: Reference Interval (mcIU/mL): Females: ??First Trimester: 0.23-3.88 ??Second Trimester: 0.22-3.90 ??Third Trimester: 0.44-4.66 Blood 09/12/2023 7:45 AM EDT 09/12/2023 8:01 AM EDT Narrative Resulting Agency Comment Spec In Lab Jean-Pierre Peña MD CHEMISTRY ORDERABLES Performing Organization Address City/[facility] Co de Phone Number [facility] [place] [address] * T4, free (09/12/2023 7:45 AM EDT) Free T4 1.32 0.93 - 1.70 ng/dL [facility] Comment: Reference Interval (ng/dL): Females: ??First Trimester: 0.97-1.68 ??Second Trimester: 0.77-1.51 ??Third Trimester: 0.77-1.49 Blood 09/12/2023 7:45 AM EDT 09/12/2023 8:01 AM EDT Narrative Resulting Agency Comment Spec In Lab Jean-Pierre Peña MD CHEMISTRY ORDERABLES Performing Organization Address City/[facility]/ZIP Co de Phone Number [facility] [place] [address] * Lactate Dehydrogenase (09/12/2023 7:45 AM EDT) LDH 187 110 - 220 unit/L [facility] Blood 09/12/2023 7:45 AM EDT 09/12/2023 8:01 AM EDT Narrative Resulting Agency Comment Spec In Lab Jean-Pierre Peña MD CHEMISTRY ORDERABLES Performing Organization Address [facility] Co de Phone Number [facility] [place] [address] documented in this encounter Visit Diagnoses Diagnosis Medication management Encounter for long-term (current) use of other medications Malignant melanoma of scalp Malignant melanoma of skin of scalp and neck 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
--- OUTSIDE RECORDS SUMMARY | 2023-12-05 02:27 | XMS_ITS | Encounter Summary ---
Author Organization [facility] Address [facility] [place] [address] Care Team Providers Care Green End Department Supervisor Name Role Phone Taylor Bryant APRN Primary Care Provider [phone] Encounter Details Date Type Department Care Team ([facility] st Contact Info) Description 09/05/2023 Telephone Hematology [place] [phone] Roselyn Sánchez Social History Tobacco Use Types Packs/Day Years Used Date Smoking Tobacco: Former Smokeless Tobacco: Never Comments:quit at age 35 Alcohol Use Standard Drinks/Week Comments Yes 0 (1 standard drink = 0.6 oz pur e alcohol) social gatherings [facility] Utilities Answer Date Recorded In the [...] * Telephone Encounter - Roselyn Sánchez - 09/08/2023 9:59 AM EDT [facility] spoke to Keeley. [facility] awarded $175 check for gas expenses toand from . She asked about the [facility] dona. She has not opened the envelope I gave her. I explained the process.She has automatic payment. She will need to have her loan procedures analyst create a bill for this dona. Roselyn Sánchez * Telephone Encounter - Roselyn Sánchez - 09/05/2023 3:43 PM EDT [facility] spoke with Keeley today about grants etc. Keeley is struggling financially at this time. Today I applied for [facility] dona asking for assistance with $175 for gas expenses. Keeley said she is a bit down due to her diagnosis. She said she has spoke to her PCP and will begetting support thru [employer]. I offered for a INVESTIGATOR CLAIMS to speak with her. She declined. I have dropped off a envelope for her at 3K. She will olive picker on 09/05. with her See below. Dear Keeley, 09/05/2023 Just a recap of our conversation. Since you are in treatment you may be eligible for a [facility] dona. They offer one time assistance. This isn't a guaranty you will receive an award. I will need copies of one or two bills to submit to them. Bills need to have your name, your address, account number, company name and billing address and bills no older than 60 days. They pay the vendor directly. Devin Sal[employer] ([facility])dona may assist with up to $800 toward household bill(s). The Programdoes not help with the cost of medical expenses, debt collections or credit card bills. Submitted applications are processed within 6-7 weeks. They also provide a grocery gift card. This portion of the dona usually process in about 2-3 weeksonce application has been submitted. [employer] dona requires proof of household income. They accept any of these sources: a month's worth of last pay stubs for anyone who works in the household, last year's taxes- 1040 forms, social security benefits letter. Please send me a copy of the document. NOT the original. I have applied for assistance with gas thru the [facility] dona. This dona takes about a week to process. I will notify you of the determination. Please keep copies of your gas receipts. When you reach about $175 send them to me in the enclosed envelope. I have enclosed: [facility] dona application and signature page [employer] vouchers My release and business card [employer] order form Please contact me with any questions or if you need assistance. I have enclosed several forms. Please fill out and return in enclosed envelope. Thanks, Roselyn Sánchez documented in this encounter Plan of Treatment Upcoming Encounters Date Type Department Care Team (Late st Contact Info) Description 12/20/2023 2:15 PM EDT Office Visit Dermatology at [facility] [address] [place] [address] Inderjit Vilchis MD [facility] DR GILBERTO [place] [address] 12/22/2023 10:00 AM EDT Office Visit [place] [address] Norm Joy PA [facility] [place] [address] 12/26/2023 11:45 AM EDT Appointment Hematology and Oncology at [place] [address] 12/26/2023 12:45 PM EDT Office Visit Hematology and Oncology at [place] [address] Jean-Pierre Peña MD [facility] [address] [place] [address] Vicky Burnham APRN [facility] [place] [address] 12/26/2023 2:30 PM EDT Appointment Hematology and Oncology at [place] [address] 02/06/2024 10:00 AM EDT Appointment Hematology and Oncology at [place] [address] 02/06/2024 12:45 PM EDT Office Visit Hematology and Oncology at [place] [address] Jean-Pierre Peña MD [facility] DR [place] [address] Vicky Burnham APRN [facility] [place] [address] 02/06/2024 2:00 PM EDT Appointment Hematology and Oncology at [address] documented as of this encounter Visit Diagnoses Not on filedocumented in this encounter Care Teams Green End Department Supervisor Relationship Specialty Start Date End Date Taylor Bryant APRN [address] [place] [id number] PCP - General 03/31/10 documented as of this encounter
--- OUTSIDE RECORDS SUMMARY | 2023-12-05 02:28 | XMS_ITS | Encounter Summary ---
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, unspecified lymph node region Procedures IR Biopsy Lymph Node (Head/Neck) IR All Biopsy Procedures Jean-Pierre Peña MD [facility] DR [place] [address] [facility] [place] [address] Referral ID Status Reason Start Date Expiration Date V isits Requested Visits Authorized [id number] Closed Specialty Service Requested 07/25/2023 01/24/2025 1 1 Reason for Visit * Reason Comments Advice Only Encounter Details Date Type Department Care Team (Late st Contact Info) Description 07/25/2023 1:15 PM EDT Office Visit Hematology [place] [address] Jean-Pierre Peña MD [facility] DR HEM[place] [address] Malignant melanoma of scalp (Primary Dx); 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 Utilities Answer Date Recorded In [...] Sign Reading Time Taken Comments Blood Pressure 129/83 07/25/2023 1:07 PM EDT Pulse 90 07/25/2023 1:07 PM EDT Temperature 36.6 ??C (97.9 ??F) 07/25/2023 1:07 PM ED T Respiratory Rate 18 07/25/2023 1:07 PM EDT Oxygen Saturation 98% 07/25/2023 1:07 PM EDT Inhaled Oxygen Concentration - - Weight 71.6 kg (157 lb 13.6 oz) 07/25/2023 1:07 PM EDT Height 160 cm (5' 3) 07/25/2023 1:07 PM EDT Body Mass Index 27.96 07/25/2023 1:07 PM EDT documented in this encounter Progress Notes * Jean-Pierre Peña MD - 07/25/2023 1:15 PM EDT Images from the original note were not included. INITIAL VISIT [facility] NOTE REFERING PHYSICIAN: DIAGNOSIS: Right occipital scalp melanoma PATH: Malignant melanoma At least T2a 1.5 mm depth with positive margin 6 mitosis BRAF mutation pending as of 07/25/2023 CURRENT TX: Status post biopsy on 06/21/2023 ONCOLOGIC HX: In summer [...] treatment options Brain MRI scheduled on 08/01/2023 under sedation History of psoriatic arthritis over 20 years [...] clinic on 07/25/2023 to discuss treatment options. Upon today's presentation she denies any significant limitation in her daily activity. Her main complaint upon today's visit is itchiness of her right posterior scalp No palpable neck nodes Occasional headache REVIEW OF SYSTEMS: Constitutional: No recent weight loss, no fever, no fatigue, No dizziness. Occasional headache. Eyes: Negative, no visual change ENT: No hearing change Cardiovascular: Negative Respiratory: Negative Gastrointestinal: Negative, Genitourinary: Negative Musculoskeletal: No new joint pain, known joint pain mainly in her knee, left greater than right from psoriatic arthritis Skin: No rash, Neurological: Negative, no focal weakness Psychiatric: stable mood PAST MEDICAL HISTORY: Past Medical History: Diagnosis Date Psoriasis Psoriatic arthritis Skin rash Past Surgical History: Procedure Laterality Date CHOLECYSTECTOMY HYSTERECTOMY KNEE SURGERY TUBAL LIGATION MEDS: FLUoxetine, Ibuprofen, cholecalciferol (Vitamin D3), and elderberry fruit ALLERGY: Codeine with nausea vomiting Allergies Allergen [...] Tobacco comments: quit at age 35 Substance and Sexual Activity Alcohol use: Yes [...] the Last Year: No PHYSICAL EXAM: PS= 0 General: not in acute distress. in good mood and spirits BP 129/83 (Patient Position: Sitting) Pulse 90 Temp 36.6 ??C (97.9 ??F) (Temporal) Resp 18 Ht 160 cm (5' 3) Wt 71.6 kg (157 lb 13.6 oz) SpO2 98% BMI 27.96 kg/m?? Eyes: Not icteric, not injected Oral: Not examined Neck: Supple. No obvious palpable lymphadenopathy. Lungs: Bilaterally clear to auscultation, No wheezing, No crackles Heart: Regular rate and rhythm. Abdomen: Soft, no tenderness, no mass, normal active bowel sounds. Extremities: No edema. Skin: No obvious rash Pigmented scalp lesion with several erythematous nodules 2 cm in diameter Neuro: No focal weakness LABS: Unremarkable CBCD and CMP Unremarkable thyroid function test LDH 172 IMAGING STUDIES: PET/CT on 07/11/2023 1. No residual scalp melanoma is identified in this scan. 2. Bilateral cervical lymph node metastases. 3. No distant metastases. ASSESSMENT AND PLAN: Right posterior scalp melanoma, at least T2a, 1.5 mm depth, 6 mitosis BRAF mutation pending as of 07/25/2023 The significance and natural course of melanoma were reviewed. The importance of staging was discussed. PET/CT scan showed bilateral hypermetabolic cervical lymphadenopathy without obvious distant metastasis. I reviewed images by myself. Given small yet hypermetabolic cervical lymphadenopathies seen on PET CT scan, we decided to arrange IR guided biopsy. If this turns out to be melanoma, we will start with induction pembrolizumab. If this turns out to be negative for melanoma, we will refer her to surgery with sentinel lymph node biopsy. Given her relatively new onset of headache, she will have staging brain MRI on 08/01/2023 The side effect profile of pembrolizumab was reviewed with the patient. I will have the patient come back 7 to 10 days after cervical node biopsy. Meanwhile I will request BRAF mutation test again. Pt was instructed to call our clinic with any new symptom or any questions. Thank you very much for referring this nice patient to our medical oncology clinic. Please find my recommendation in above note. Jean-Pierre Peña MD IR guided cervical node biopsy RTC 7-10 business days after biopsy with possible pembrolizumab documented in this encounter Plan of Treatment Upcoming Encounters Date Type Department Care Team (Late st Contact Info) Description 12/20/2023 2:15 PM EDT Office Visit Dermatology at [facility] [address] [place] [address] Inderjit Vilchis MD [facility] DR GIL[facility]ERTO [place] [address] 12/22/2023 10:00 AM EDT Office Visit Otolaryngology at [address] Norm Joy PA [facility] [place] [address] 12/26/2023 11:45 AM EDT Appointment Hematology and Oncology at [place] [id number] 12/26/2023 12:45 PM EDT Office Visit Hematology and Oncology at [place] [phone] Jean-Pierre Peña MD [facility] DR HEMATOLOGY [place] [address] Vicky Burnham APRN [facility] [place] [address] 12/26/2023 2:30 PM EDT Appointment Hematology and Oncology at [place] [id number] 02/06/2024 10:00 AM EDT Appointment Hematology and Oncology at [place] [id number] 02/06/2024 12:45 PM EDT Office Visit Hematology and Oncology at [place] [phone] Jean-Pierre Peña MD [facility] DR HEMATOLOGY [place] [address] Vicky Burnham APRN [facility] [place] [address] 02/06/2024 2:00 PM EDT Appointment Hematology [place] [address] Scheduled Orders Name Type Priority Associated Diagnoses Orde r Schedule Specimen to Pathology Additional Testing Pathology/Cytol ogy STAT Malignant melanoma of scalp Ordered: 07/26/2023 documented as of this encounter Results * IR Biopsy Lymph Node (Head/Neck) (08/09/2023 9:06 AM EDT) Anatomical Region Laterality Modality X-Ray Angiograph y Impressions 08/09/2023 3:42 PM EDT Technically successful fine-needle aspiration of a RIGHT level Ib cervical chain node. [employer] Consultant: Norm Evans M.D. Attending: Matty Mukherjee M.D. Preliminary report signed by: Norm Evans at 08/09/2023 3:27 PM I participated in the evaluation workup this patient, targeting and assisted with acquisition of samples. I was present in in the room for the crucial parts the procedure and within the department for the entire procedure I have personally reviewed the image(s) and the resident's interpretation and agree with the findings, Matty Mukherjee MD at 08/09/2023 3:42 PM Thank you for letting us participate in the care of this patient. ??If you are a health care provider and have any questions regarding this report, please contact the number below. ??For patients who have questions please contact the health rn primary care that requested your imaging first. ? Narrative 08/09/2023 3:42 PM EDT EXAMINATION: IR BIOPSY LYMPH NODE (HEAD/NECK) CLINICAL HISTORY: scalp melanoma with bilateral hypermetabolic cercvical nodes right greater than left suspicious for melanoma COMPARISON: PET/CT 07/11/2023 TECHNIQUE: Following a discussion of the procedure, risks and benefits, the patient's questions were answered. Written and verbal informed consent were obtained for fine-needle aspiration of a RIGHT level Ib cervical chain lymph node. The patient was placed in the supine position. Skin site for biopsy of the RIGHT Ib cervical chain lymph nodes was marked. A pre-procedure pause confirmed the patient's name, date of , medical record number, side and procedure to be performed. The care team in attendance agreed. Using standard sterile skin cleansing and draping technique, the skin and underlying tissue was anesthetized with 3 ??ml lidocaine 1%. Under direct ultrasound guidance, the ??mass was accessed via fine-needle aspiration using 23-gauge needles. A total of 4 passes was performed. Samples placed in formalin. The needle was removed. Hemostasis was ensured. Sterile gauze/Tegaderm dressing was placed. EBL: <5ml Complications: None. FINDINGS: Intraprocedural imaging demonstrates needle tip centered within the RIGHT upper cervical chain lymph node. Postprocedure imaging shows air foci along the needle tract. No hematoma. Procedure Note Matty Mukherjee MD - 08/09/2023 EXAMINATION: IR BIOPSY LYMPH NODE (HEAD/NECK) CLINICAL HISTORY: scalp melanoma with bilateral hypermetabolic cercvicalnodes right greater than left suspicious for melanoma COMPARISON: PET/CT 07/11/2023 TECHNIQUE: Following a discussion of the procedure, risks and benefits, thepatient's questions were answered. Written and verbal informed consent were obtainedfor fine-needle aspiration of a RIGHT level Ib cervical chain lymph node. The patient was placed in the supine position. Skin site for biopsy of theRIGHT Ib cervical chain lymph nodes was marked. A pre-procedure pause confirmedthe patient's name, date of , medical record number, side and procedureto be performed. The care team in attendance agreed. Using standard sterile skin cleansing and draping technique, the skinand underlying tissue was anesthetized with 3 ml lidocaine 1%. Under direct ultrasound guidance, the mass was accessed via fine-needle aspirationusing 23-gauge needles. A total of 4 passes was performed. Samples placed informalin. The needle was removed. Hemostasis was ensured. Sterile gauze/Tegadermdressing was placed. EBL: <5ml Complications: None. FINDINGS: Intraprocedural imaging demonstrates needle tip centered within the RIGHTupper cervical chain lymph node. Postprocedure imaging shows air foci along theneedle tract. No hematoma. IMPRESSION Technically successful fine-needle aspiration of a RIGHT level Ib cervicalchain node. [employer] Consultant: Norm Evans M.D. Attending: Matty Mukherjee M.D. Preliminary report signed by: Norm Evans at 08/09/2023 3:27 PM I participated in the evaluation workup this patient, targeting andassisted with acquisition of samples. I was present in in the room for the crucialparts the procedure and within the department for the entire procedure I have personally reviewed the image(s) and the resident's interpretationand agree with the findings, Matty Mukherjee MD at 08/09/2023 3:42 PM Thank you for letting us participate in the care of this patient. If youare a health care provider and have any questions regarding this report,please contact the number below. For patients who have questions please contactthe health rn primary care that requested your imaging first. 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
--- OUTSIDE RECORDS SUMMARY | 2023-12-05 02:28 | XMS_ITS | Encounter Summary ---
Author Organization [facility] Address [facility] [place] [address] Care Team Providers Care Retail Personal Banker Name Role Phone Taylor Bryant APRN Primary Care Provider [phone] Encounter Details Date Type Department Care Team (Late st Contact Info) Description 07/14/2023 [place] [phone] Inderjit Vilchis MD [facility] DR GILBERTO STERLING-DERMATOLOGY [place], [place] [id number] Social History Tobacco Use Types Packs/Day Years Used Date Smoking Tobacco: Former Smokeless Tobacco: Never Comments:quit at age 35 Alcohol Use Standard Drinks/Week Comments Yes 0 (1 standard drink = 0.6 oz pur e alcohol) social gatherings Sex and Gender Information Value Date Recorded Sex Assigned at Not on file Gender Identity Not on file Sexual Orientation Not on file documented as of this encounter Plan of Treatment Upcoming Encounters Date Type Department Care Team (Late st Contact Info) Description 12/20/2023 2:15 PM EDT Office Visit Dermatology at [facility] [address] [place] [address] Inderjit Vilchis MD [facility] DR GILBERTO [place] [address] 12/22/2023 10:00 AM EDT Office [place] [phone] Norm Joy PA [facility] [place] [address] 12/26/2023 11:45 AM EDT Appointment Hematology and Oncology at [place] [phone] 12/26/2023 12:45 PM EDT Office Visit Hematology and Oncology at [place] [address] Jean-Pierre Peña MD [facility] DR [place] [address] Vicky Burnham APRN [facility] [place] [address] 12/26/2023 2:30 PM EDT Appointment Hematology and Oncology at [place] [phone] 02/06/2024 10:00 AM EDT Appointment Hematology and Oncology at [place] [phone] 02/06/2024 12:45 PM EDT Office Visit Hematology and Oncology at [place] [phone] Jean-Pierre Peña MD [facility] DR [place] [address] Vicky Burnham [employer] [place] [facility] [place] [address] 02/06/2024 2:00 PM EDT Appointment Hematology and Oncology at [place] [phone] documented as of this encounter Procedures Procedure Name Priority Date/Time Associated Diagnosis Comments SURGICAL PATHOLOGY SCAN Routine 07/14/2023 12:13 PM EST documented in this encounter Results * Scan Doc: Surgical Pathology (07/14/2023 12:13 PM EST) Inderjit Vilchis MD MEDIA MGR SCAN EXT ORDR/RSLT documented in this encounter Visit Diagnoses Not on filedocumented in this encounter Care Teams Retail Personal Banker Relationship Specialty Start Date End Date Taylor Bryant APRN [address] [place] [id number] PCP - General 03/31/10 documented as of this encounter
--- OUTSIDE RECORDS SUMMARY | 2023-12-05 02:28 | XMS_ITS | Encounter Summary ---
Author Organization [facility] Address [facility] [place] [address] Care Team Providers Care Egg Smeller Name Role Phone Taylor Bryant APRN Primary Care Provider [phone] Encounter Details Date Type Department Care Team ([facility] st Contact Info) Description 08/05/2023 Patient Outreach Hematology [place] [address] Roselyn Sánchez Social History Tobacco Use Types Packs/Day Years Used Date Smoking Tobacco: Former Smokeless Tobacco: Never Comments:quit at age 35 Alcohol Use Standard Drinks/Week Comments Yes 0 (1 standard drink = 0.6 oz pur e alcohol) social gatherings [facility] Utilities Answer Date Recorded In the [...] in a custodial (including now)? No 07/24/2023 IPV Inpatient Questions [...] * Telephone Encounter - Roselyn Sánchez - 08/05/2023 10:30 AM EDT [facility] spoke to Keeley today to review her responses to the SDOH+ screening. Keeley lives on a fixed income and she barely makes ends meet each month. She gets $140 in food stamps. She said that is enough for her. She also receives fuel assistance. She owns her trailer but pays for lot rent. I offered food pantry from the [employer],at this time she declined. I also offered to provide her a list of local food pantry options, she declined. Keeley could use help with gas. I have left a $25 gas card at [employer] for her family member to pick upon 08/08. She will be at [employer]. Roselyn Sánchez . documented in this encounter Plan of Treatment Upcoming Encounters Date Type Department Care Team (Late st Contact Info) Description 12/20/2023 2:15 PM EDT Office Visit Dermatology at [facility] [address] [place] [address] Inderjit Vilchis MD [facility] DR GILBERTO [place] [address] 12/22/2023 10:00 AM EDT Office Visit Otolaryngology at [place] [address] Norm Joy PA [facility] [place] [address] 12/26/2023 11:45 AM EDT Appointment Hematology and Oncology at [place] [address] 12/26/2023 12:45 PM EDT Office Visit Hematology and Oncology at [place] [address] Jean-Pierre Peña MD [facility] DR [place] [address] Vicky Burnham APRN [facility] [place] [address] 12/26/2023 2:30 PM EDT Appointment Hematology and Oncology at [address] 02/06/2024 10:00 AM EDT Appointment Hematology and Oncology at [address] 02/06/2024 12:45 PM EDT Office Visit Hematology and Oncology at [address] Jean-Pierre Peña MD [facility] [place] [address] Vicky Burnham APRN [facility] [place] [address] 02/06/2024 2:00 PM EDT Appointment Hematology [place] [address] documented as of this encounter Visit Diagnoses Not on filedocumented in this encounter Care Teams Egg Smeller Relationship Specialty Start Date End Date Taylor Bryant APRN [address] [place] [address] PCP - General 03/31/10 documented as of this encounter
--- OUTSIDE RECORDS SUMMARY | 2023-12-05 02:28 | XMS_ITS | Encounter Summary ---
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, unspecified lymph node region Discharge Disposition: Home Social History Tobacco Use Types Packs/Day Years Used Date Smoking Tobacco: Former Smokeless Tobacco: Never Comments:quit at age 35 Alcohol Use Standard Drinks/Week Comments Yes 0 (1 standard drink = 0.6 oz pur e alcohol) social gatherings [facility] Utilities Answer Date Recorded In the past [...] 2:15 PM EDT Office Visit Dermatology at [facility] [address] [place] [phone] Inderjit Vilchis MD [facility] [place] [address] 12/22/2023 10:00 AM EDT Office Visit Otolaryngology at [place] [address] Norm Joy PA [facility] [place] [place] [address] 12/26/2023 11:45 AM EDT Appointment Hematology and Oncology at [place] [address] 12/26/2023 12:45 PM EDT Office Visit Hematology and Oncology at [place] [address] Jean-Pierre Peña MD [facility] DR [place] [address] Vicky Burnham APRN [facility] [place] [address] 12/26/2023 2:30 PM EDT Appointment Hematology and Oncology at [place] [address] 02/06/2024 10:00 AM EDT Appointment Hematology and Oncology at [place] [address] 02/06/2024 12:45 PM EDT Office Visit Hematology and Oncology at [place] [phone] Jean-Pierre Peña MD [facility] DR [place] [address] Vicky Burnham APRN [facility] [place] [place] [address] 02/06/2024 2:00 PM EDT Appointment Hematology [place] [address] documented as of this encounter Procedures Procedure Name Priority Date/Time Associated Diagnosis Comments HEMOGRAM STAT 08/23/2023 8:33 AM EDT Medication management 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, unspecified lymph node region DIFFERENTIAL, AUTOMATED STAT 08/23/2023 8:33 AM EDT Medication management 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, unspecified lymph node region HC CBC,PLT & AUTO DIFF STAT 8:33 AM EDT Medication management 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, unspecified lymph node region HC THYROID STIMULATING HORMONE, SERUM STAT 08/23/2023 8:33 AM EDT Medication management 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, unspecified lymph node region HC FREE THYROXINE (T4) STAT 8:33 AM EDT Medication management 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, unspecified lymph node region HC LACTIC DEHYDROGENASE STAT 08/23/2023 8:33 AM EDT Medication management 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, unspecified lymph node region COMPREHENSIVE METABOLIC PANEL (NON-FASTING) STAT 08/23/2023 8:33 AM EDT Medication management 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, unspecified lymph node region documented in this encounter Results * Differential, Automated (08/23/2023 8:33 AM EDT) Neutrophils % 54.5 % [facility] Neutr Abs (ANC) 3.21 1.70 - 6.10 x10(3)/[facility] Lymphocytes % 32.0 % [facility] Lymphocytes Abs 1.9 0.9 - 3.2 x10(3)/[facility] Monocytes % 9.2 % [facility] Monocyte Abs 0.5 0.3 - 0.9 x10(3)/[facility] Eosinophils % 3.1 % [facility] Eosinophils Abs 0.2 0.0 - 0.4 x10(3)/[facility] Basophils % 0.9 % [facility] Basophils Abs 0.0 0.0 - 0.1 x10(3)/[facility] Immature Gran % 0.30 % [facility] Comment: Immature granulocytes(IG's)percentage and absolute count will include metamyelocytes, myelocytes, and promyelocytes. Blood smears from CBCs yielding IG's will be scanned manually for concordance. If this scan disagrees with the automated IG or if promyelocytes are noted, a manual differential will be performed. Funmi Gran Abs 0.02 0.00 - 0.04 x10(3)/[facility] Blood 08/23/2023 8:33 AM EDT 08/23/2023 8:59 AM EDT Narrative Resulting Agency Comment Spec In Lab Jean-Pierre Peña MD HEMATOLOGY ORDERABLE S [facility] [place] [address] * (ABNORMAL) Hemogram (08/23/2023 8:33 AM EDT) WBC 5.9 4.0 - 9.5 x10(3)/[facility] RBC 4.32 4.00 - 5.21 x10(6)/[facility] Hemoglobin 13.1 11.7 - 15.5 g/dL [facility] Hematocrit 40.2 35.7 - 45.8 % [facility] MCV 93.1 82.6 - 94.4 fL [facility] MCH 30.3 27.1 - 32.0 pg [facility] MCHC 32.6 31.7 - 35.0 g/dL [facility] Platelets 316 145 - 357 x10(3)/[facility] RDWSD 47.7(H) 37.0 - 46.0 [facility] RDWCV 13.9 11.5 - 14.1 % [facility] MPV 11.4 7.6 - 12.9 [facility] nRBC % Auto 0.0 % [facility] nRBC Abs Auto 0.000 0.000 - 0.000 x10(3)/[facility] Blood 08/23/2023 8:33 AM EDT 08/23/2023 8:59 AM EDT Narrative Resulting Agency Comment Spec In Lab Jean-Pierre Peña MD HEMATOLOGY ORDERABLE S Performing Organization Address City/[facility]/ZIP Co de Phone Number [facility] [place] [address] * Lactate Dehydrogenase (08/23/2023 8:33 AM EDT) LDH 165 110 - 220 unit/L [facility] Blood 08/23/2023 8:33 AM EDT 08/23/2023 8:59 AM EDT Narrative Resulting Agency Comment Spec In Lab Jean-Pierre Peña MD CHEMISTRY ORDERABLES Performing Organization Address City/[facility] Co de Phone Number [facility] [place] [address] * T4, free (08/23/2023 8:33 AM EDT) Free T4 1.31 0.93 - 1.70 ng/dL [facility] Comment: Reference Interval (ng/dL): Females: ??First Trimester: 0.97-1.68 ??Second Trimester: 0.77-1.51 ??Third Trimester: 0.77-1.49 Blood 08/23/2023 8:33 AM EDT 08/23/2023 8:59 AM EDT Narrative Resulting Agency Comment Spec In Lab Jean-Pierre Peña MD CHEMISTRY ORDERABLES Performing Organization Address [facility] de Phone Number [facility] [place] [address] * TSH (08/23/2023 8:33 AM EDT) [facility] TSH 0.80 0.27 - 4.20 mcIU/mL [facility] Comment: Reference Interval (mcIU/mL): Females: ??First Trimester: 0.23-3.88 ??Second Trimester: 0.22-3.90 ??Third Trimester: 0.44-4.66 Blood 08/23/2023 8:33 AM EDT 08/23/2023 8:59 AM EDT Narrative Resulting Agency Comment Spec In Lab Jean-Pierre Peña MD CHEMISTRY ORDERABLES Performing Organization Address [facility] de Phone Number [facility] [place] [address] * (ABNORMAL) Comprehensive metabolic panel (non-fasting) (08/23/2023 8:33 AM EDT) [facility] Glucose Lvl 95 65 - 199 mg/dL [facility] Comment:Diabetes: >=200 mg/d L plus symptoms BUN 20(H) 8 - 18 mg/dL [facility] Creatinine 0.95 0.70 - 1.20 mg/dL [facility] Sodium 141 135 - 145 mmol/L [facility] Potassium 4.5 3.5 - 5.0 mmol/L [facility] Comment: Please note: ??Patients with WBC >100,000 may have falsely elevated Potassium levels. ??For accurate Potassium quantification in these patients send serum separator tube (gold top) for subsequent determinations. ??Contact the Clinical Chemistry Laboratory if there are any questions. Chloride 106 98 - 107 mmol/L [facility] CO2 26 22 - 31 mmol/L [facility] Anion Gap 9 5 - 15 mmol/L [facility] Calcium 9.9 8.5 - 10.5 mg/dL [facility] Total Protein 7.0 6.1 - 8.0 g/dL [facility] Albumin 4.5 3.2 - 5.2 g/dL [facility] AST 14 0 - 30 unit/L [facility] ALT 15 0 - 30 unit/L [facility] Alk Phos 70 35 - 105 unit/L [facility] Total Bilirubin 0.6 0.2 - 1.3 mg/dL [facility] Estimated GFR 69 >=60 mL/min/1. 73 m?? 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
--- OUTSIDE RECORDS SUMMARY | 2023-12-05 02:28 | XMS_ITS | Encounter Summary ---
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, unspecified lymph node region Procedures IR Biopsy Lymph Node (Head/Neck) IR All Biopsy Procedures Jean-Pierre Peña MD [facility] [address] [place] [address] [facility] [place] [address] Referral ID Status Reason Start Date Expiration Date V isits Requested Visits Authorized [id number] Closed Specialty Service Requested 07/25/2023 01/24/2025 1 1 Reason for Visit * Diagnostic Test (Routine) - Closed Specialty Diagnoses / Procedures [facility] Referred To Contact Radiology Diagnoses 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, unspecified lymph node region Procedures IR Biopsy Lymph Node (Head/Neck) IR All Biopsy Procedures Jean-Pierre Peña MD [facility] [address] [place] [address] [facility] [place] [address] Referral ID Status Reason Start Date Expiration Date V isits Requested Visits Authorized [id number] Closed Specialty Service Requested 07/25/2023 01/24/2025 1 1 Encounter Details Date Type Department Care Team (Latest Contact Info) Description 08/09/2023 7:42 AM EDT - 08/09/2023 11:59 PM EDT Hospital Encounter Radiology at [facility] [place] [address] Jean-Pierre Peña MD [facility] [address] [place] [address] Malignant melanoma of scalp; 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 Ibuprofen 200 mg Capsule Take 600 mg by mouth 2 times daily as needed. 09/16/2023 documented as of this encounter Plan of Treatment Upcoming Encounters Date Type Department Care Team (Late st Contact Info) Description 12/20/2023 2:15 PM EDT Office Visit Dermatology at [facility] [address] [place] [address] Inderjit Vilchis MD [facility] [address] GILBERTO [place] [address] 12/22/2023 10:00 AM EDT Office [place] [phone] Norm Joy PA [facility] [address] 12/26/2023 11:45 AM EDT Appointment Hematology [place] [phone] 12/26/2023 12:45 PM EDT Office Visit Hematology [place] [phone] Jean-Pierre Peña MD [facility] [place] [address] Vicky Burnham APRN [facility] [place] [address] 12/26/2023 2:30 PM EDT Appointment Hematology [place] [address] 02/06/2024 10:00 AM EDT Appointment Hematology [place] [address] 02/06/2024 12:45 PM EDT Office Visit Hematology [place] [address] Jean-Pierre Peña MD [facility] [address] [place] [address] Vicky Burnham APRN [facility] [place] [address] 02/06/2024 2:00 PM EDT Appointment Hematology [place] [address] documented as of this encounter Procedures Procedure Name Priority Date/Time Associated Diagnosis Comments IR BIOPSY LYMPH NODE (HEAD/NECK) Routine 08/09/2023 9:06 AM EDT 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 Die Casting Supervisor: Norm Evans M.D. Attending: Matty Mukherjee M.D. [...] who have questions please contact the health health care specialist that requested your imaging first. ? Electronically signed by: Matty Mukherjee MD, [facility] ([phone]), at 08/09/2023 3:42 PM Narrative 08/09/2023 3:42 PM EDT EXAMINATION: IR [...] of a RIGHT level Ib cervicalchain node. Die Casting Supervisor: Norm Evans M.D. Attending: Matty Mukherjee M.D. [...] patients who have questions please contactthe health health care specialist that requested your imaging first. Electronically signed by: Matty Mukherjee MD, [facility]([phone]), at 08/09/2023 3:42 PM Jean-Pierre Peña MD IMG IR ORDERABLES * Non-Testing Specialist Final Report (08/09/2023 8:55 AM EDT) Diagnosis Discussion [id number] ? Location: [facility] The signing pathologist has (i) examined the relevant preparation(s) for the specimen(s) and (ii) rendered or confirmed the diagnosis(es). . ? Non-Testing Specialist Final DIAGNOSIS Negative for Malignancy Electronically signed by: ?Gianni ROBLES, [facility] Verified: ??08/11/2023 9:29 ?? Pathologist Performed at: ??-[facility] [place], [place] [address] Warehouse Distribution Specialist: Johnnie Stephens MD, AP, ??CLIA Certificate: [id number] DISCUSSION Lymph node, right cervical chain (US-guided FNA): Lymphocytes are present, compatible with lymph node sampling. No overtly cytologically malignant cells seen. The material might not be fully outside dealer sales representative of the target lesion. Clinical and radiologic correlation is required. --- Immunohistochemistry Studies --- Interpretation: LCA highlights lymphocytes. Immunostains for ?SOX-10 and Melan-A ??are negative. ? Immunohistochemical assays were performed (on paraffin-embedded cell block sections fixed in 10% neutral buffered formalin for 6-72 hours) using the polymer technique with appropriate controls. The sections are studied for LCA, SOX-10 and Melan-A. These immunohistochemical studies provide ancillary information and are used only in conjunction with standard diagnostic procedures. ( Cell block was examined.) CLINICAL INFORMATION Specimen Source : Lymph node, right cervical chain (US-guided FNA) Pertinent Clinical Data and Significant Therapy: Scalp melanoma with bilateral hypermetabolic cervical nodes right greater than left suspicious for melanoma Clinical Impression : Scalp melanoma with bilateral hypermetabolic cervical nodes right greater than left suspicious for melanoma Pertinent Radiologic Findings ??: (not provided) Gross Description: Received ??in CytoLyt approximately 30 mL total volume of ?? clear, pink fluid, with light flecks. Total Preparation: Liquid-Based Prep 1; Cell Block 1. 08/11/2023 9:29 AM EDT [facility] LYMPH NODE SPECIMEN / Unknown 08/09/2023 8:55 AM EDT 08/09/2023 8:55 AM EDT Matty Mukherjee MD PATHOLOGY/CYTOLOGY ORDERABLES [facility] [place] [address] * Cytopathology Non-Gynecological (08/09/2023 8:43 AM EDT) AP Specimen 08/09/2023 8:43 AM EDT 08/09/2023 8:43 AM EDT Narrative [facility] - 08/09/2023 8:43 AM EDT Specimen requisition ordered. 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
--- OUTSIDE RECORDS SUMMARY | 2023-12-05 02:28 | XMS_ITS | Encounter Summary ---
[facility] [place] [address] Care Team Providers Care Nuclear Station Operator Name Role Phone Taylor Bryant ZARA Primary Care Provider [phone] [phone] Reason for Referral * Diagnostic Test (Routine) - Closed Specialty Diagnoses / Procedures Referred By Crista t Referred To Contact Radiology Diagnoses Malignant melanoma, unspecified site Procedures MRI Brain wwo Contrast (Generic) Neida Luong APRN [facility] [address] [place] [address] [place] [address] Referral ID Status Reason Start Date Expiration Date V isits Requested Visits Authorized [id number] Closed Specialty Service Requested 07/19/2023 01/18/2025 1 1 Encounter Details Date Type Department Care Team (Late st Contact Info) Description 07/19/2023 Orders Only [place]ematology [place] [address] Neida Luong APRN [facility] [address] [place] [address] Malignant melanoma, unspecified site Social History Tobacco [...] 2:15 PM EDT Office Visit Dermatology at [facility] [address] [place] [address] Inderjit Vilchis MD [facility] [address] GILBERT[place] [address] 12/22/2023 10:00 AM EDT Office [place] [phone] Norm Joy PA [facility] [address] 12/26/2023 11:45 AM EDT Appointment [place] [address] 12/26/2023 12:45 PM EDT Office Visit [place] [address] Jean-Pierre Peña MD [facility] [address] [place] [address] Vicky Burnham, ZARA [facility] [place] [address] 12/26/2023 2:30 PM EDT Appointment Hematology [place] [address] 02/06/2024 10:00 AM EDT Appointment [place] [address] 02/06/2024 12:45 PM EDT Office Visit [place] [address] Jean-Pierre Peña MD [facility] [address] [place] [address] Vicky Burnham APRN [facility] [place] [address] 02/06/2024 2:00 PM EDT Appointment [place]emat[place] [address] documented as of this encounter Results * MRI Brain wwo Contrast (Generic) (08/01/2023 9:47 AM EDT) Anatomical Region Laterality Modality Head Magnetic Resonan ce Impressions 08/01/2023 3:10 PM EDT Negative for brain metastases. I have personally reviewed the image(s) and the resident's interpretation and agree with the findings, Matty Mukherjee MD at 08/01/2023 3:10 PM Thank you for letting us participate in the care of this patient. ??If you are a health care provider and have any questions regarding this report, please contact the number below. ??For patients who have questions please contact the health home health care social worker that requested your imaging first. ? Electronically signed by: Matty Mukherjee MD, [facility] ([phone]), at 08/01/2023 3:10 PM Narrative 08/01/2023 3:10 PM EDT EXAMINATION: MRI BRAIN WWO CONTRAST (GENERIC) CLINICAL HISTORY: Metastatic disease evaluation C43.9, Malignant melanoma of skin, unspecified TECHNIQUE: MRI of the brain was performed before and after the intravenous administration of 13cc Dotarem. COMPARISON: PET/CT 07/11/2023 FINDINGS: No acute diffusion-weighted abnormalities, abnormal enhancement, mass, mass effect, or extra-axial collection. Nonspecific areas of confluent and patchy increased T2 signal in the periventricular and subcortical white matter favored to represent chronic microvascular change. Ventricles are normal in size and configuration. Basal cisterns are patent. Orbits are unremarkable. Visualized paranasal sinuses and mastoid air cells are clear. No marrow signal abnormality. Partially visualized nonpathologically enlarged by FDG avid bilateral level II lymph nodes. Procedure Note Matty Mukherjee MD - 08/01/2023 EXAMINATION: MRI BRAIN WWO CONTRAST (GENERIC) CLINICAL HISTORY: Metastatic disease evaluation C43.9, Malignant melanoma of skin, unspecified TECHNIQUE: MRI of the brain was performed before and after the intravenousadministration of 13cc Dotarem. COMPARISON: PET/CT 07/11/2023 FINDINGS: No acute diffusion-weighted abnormalities, abnormal enhancement, mass,mass effect, or extra-axial collection. Nonspecific areas of confluent andpatchy increased T2 signal in the periventricular and subcortical white matterfavored to represent chronic microvascular change. Ventricles are normal in size and configuration. Basal cisterns arepatent. Orbits are unremarkable. Visualized paranasal sinuses and mastoid aircells are clear. No marrow signal abnormality. Partially visualizednonpathologically enlarged by FDG avid bilateral level II lymph nodes. IMPRESSION Negative for brain metastases. I have personally reviewed the image(s) and the resident's interpretationand agree with the findings, Matty Mukherjee MD at 08/01/2023 3:10 PM Thank you for letting us participate in the care of this patient. If youare a health care provider and have any questions regarding this report,please contact the number below. For patients who have questions please contactthe health home health care social worker that requested your imaging first. Electronically signed by: Matty Mukherjee MD, [facility]([phone]), at 08/01/2023 3:10 PM Neida Luong APRN [facility] ORDERABLES documented in this encounter Visit Diagnoses Diagnosis Malignant melanoma, unspecified site Malignant melanoma, unspecified site documented in this encounter Care Teams Nuclear Station Operator Relationship Specialty Start Date End Date Taylor Bryant APRN [address] [place] [address] PCP - General 03/31/10 documented as of this encounter
--- OUTSIDE RECORDS SUMMARY | 2023-12-05 02:28 | XMS_ITS | Encounter Summary ---
Author Organization [facility] Address [facility] [place] [address] Care Team Providers Care Photography Colorist Name Role Phone AnnetteTaylor ZARA Primary Care Provider [phone] [phone] Reason for Visit * Diagnostic Test (Routine) - Closed Specialty Diagnoses / Procedures Referred By Crista t Referred To Contact Radiology Diagnoses Malignant melanoma, unspecified site Procedures MRI Brain wwo Contrast (Generic) Neida Luong APRN [facility] [address] [place] [address] [facility] [place] [address] Referral ID Status Reason Start Date Expiration Date V isits Requested Visits Authorized [id number] Closed Specialty Service Requested 07/19/2023 01/18/2025 1 1 Encounter Details Date Type Department Care Team (Late st Contact Info) Description 08/01/2023 7:23 AM EDT - 08/01/2023 11:59 PM EDT Hospital [place] [address] Neida Luong APRN [facility] [place] [address] Discharge Disposition: Home Social History Tobacco Use Types Packs/Day Years Used Date Smoking Tobacco: Former Smokeless Tobacco: Never Comments:quit at age 35 Alcohol Use Standard Drinks/Week Comments Yes 0 (1 standard drink = 0.6 oz pur e alcohol) social gatherings [facility] Utilities Answer Date Recorded In the past 12 months has [employer], oil, or water [employer] threatened to shut off services in your [...] in a assisted (including now)? No 07/24/2023 Sex and Gender [...] 2:15 PM EDT Office Visit Dermatology at [facility] [address] [place] [address] Inderjit Vilchis MD [facility] [place] [address] 12/22/2023 10:00 AM EDT Office Visit Otolaryngology at [place] [address] Norm Joy PA [facility] [place] [address] 12/26/2023 11:45 AM EDT Appointment Hematology and Oncology at [place] [address] 12/26/2023 12:45 PM EDT Office Visit Hematology and Oncology at [place] [address] Jean-Pierre Peña MD [facility] DR [place] [address] Vicky Burnham APRN [facility] [place] [address] 12/26/2023 2:30 PM EDT Appointment Hematology and Oncology at [place] [phone] 02/06/2024 10:00 AM EDT Appointment Hematology and Oncology at [address] 02/06/2024 12:45 PM EDT Office Visit Hematology and Oncology at [place] [phone] Jean-Pierre Peña MD [facility] DR [place] [address] Vicky Burnham APRN [facility] [place] [address] 02/06/2024 2:00 PM EDT Appointment Hematology [place] [address] documented as of this encounter Procedures Procedure Name Priority Date/Time Associated Diagnosis Comments MRI BRAIN WWO CONTRAST (GENERIC) Routine 08/01/2023 9:47 AM EDT Malignant melanoma, unspecified site documented in this encounter Visit Diagnoses Not on filedocumented in this encounter Administered Medications Inactive Administered Medications - up to 3 most recent administrations Medication Order MAR Action Action Date Dose Rate Site gadoterate meglumine (Dotarem) (0.5 mMol/mL) injection solution 0-100 mL 0-100 mL, Intravenous, ONCE PRN, 1 dose, Starting on Tue08/01/23 at 0923, Until Tue08/01/23 at 0927, Per Protocol, Radiology Contrast, Routine Given 08/01/2023 9:27 AM EDT 13 mLs documented in this encounter Care Teams Photography Colorist Relationship Specialty Start Date End Date Taylor Bryant APRN [address] [place] [address] PCP - General 03/31/10 documented as of this encounter
--- OUTSIDE RECORDS SUMMARY | 2023-12-05 02:28 | XMS_ITS | Encounter Summary ---
Author Organization [facility] [place] [address] Care Team Providers Care Solvent Process Extractor Operator Name Role Phone Taylor Bryant ZARA Primary Care Provider [phone] [phone] Encounter Details Date Type Department Care Team (Late st Contact Info) Description 07/05/2023 Orders Only Hematology [place] [address] Emily Yao UNEMPLOYMENT SPECIALIST [facility] [place] [address] Social History Tobacco Use Types Packs/Day Years [...] as of this encounter Progress Notes * Robina Rudolph RN - 07/05/2023 4:46 PM EST Opened in error documented in this encounter Plan of Treatment Upcoming Encounters Date Type Department Care Team (Late st Contact Info) Description 12/20/2023 2:15 PM EDT Office Visit Dermatology at [facility] [address] [place] [address] Inderjit Vilchis MD [facility] DR GILBERTO [place] [address] 12/22/2023 10:00 AM EDT Office Visit Otolaryngology at [place] [address] Norm Joy PA [facility] [place] [address] 12/26/2023 11:45 AM EDT Appointment Hematology and Oncology at [place] [address] 12/26/2023 12:45 PM EDT Office Visit Hematology and Oncology at [place] [address] Jean-Pierre Peña MD [facility] DR [place] [address] Vicky Burnham APRN [facility] [place] [address] 12/26/2023 2:30 PM EDT Appointment Hematology and Oncology at [place] [address] 02/06/2024 10:00 AM EDT Appointment Hematology and Oncology at [place] [address] 02/06/2024 12:45 PM EDT Office Visit Hematology and Oncology at [address] Jean-Pierre Peña MD [facility] DR HEMATOLOGY [place] [address] Vicky Burnham APRN [facility] [place] [address] 02/06/2024 2:00 PM EDT Appointment Hematology [place] [address] documented as of this encounter Visit Diagnoses Not on filedocumented in this encounter Care Teams Solvent Process Extractor Operator Relationship Specialty Start Date End Date Taylor Bryant APRN [address] [place] [address] PCP - General 03/31/10 documented as of this encounter
--- OUTSIDE RECORDS SUMMARY | 2023-12-05 02:28 | XMS_ITS | Encounter Summary ---
Author Organization [facility] Address [facility] [place] [address] Care Team Providers Care Senior Client Advisor Name Role Phone Taylor Bryant APRN Primary Care Provider +1 [phone] Encounter Details Date Type Department Care Team (Latest Contact Info) Description 08/18/2023 Travel Social History Tobacco Use Types Packs/Day Years Used Date Smoking Tobacco: Former Smokeless Tobacco: Never Comments:quit at age 35 Alcohol Use Standard Drinks/Week Comments Yes 0 (1 standard drink = 0.6 oz pur e alcohol) social gatherings [facility] Utilities Answer Date Recorded In the past [...] in a detention (including now)? No 07/24/2023 Sex and Gender [...] [facility] [address] [place] [address] Inderjit Vilchis MD [facility] [address] GILBERT[address] [place] [address] 12/22/2023 10:00 AM EDT Office [place] [address] Norm Joy PA [facility] [place] [address] 12/26/2023 11:45 AM EDT Appointment [place]ematology [place] [address] 12/26/2023 12:45 PM EDT Office Visit [place]ematology [place] [address] Jean-Pierre Peña MD [facility] [address] [place] [address] Vicky Burnham APRN [facility] [place] [place] [address] 12/26/2023 2:30 PM EDT Appointment Hematology [place] [address] 02/06/2024 10:00 AM EDT Appointment [place]ematology [place] [address] 02/06/2024 12:45 PM EDT Office Visit [place]ematology [place] [address] Jean-Pierre Peña MD [facility] [address] [place] [address] Vicky Burnham APRN [facility] [place] [place] [address] 02/06/2024 2:00 PM EDT Appointment [place]ematology [place] [address] documented as of this encounter Visit Diagnoses Not on filedocumented in this encounter Care Teams Senior Client Advisor Relationship Specialty Start Date End Date Taylor Bryant, NURSERYMAN ASSISTANT [address] [place] [address] PCP - General 03/31/10 documented as of this encounter
--- OUTSIDE RECORDS SUMMARY | 2023-12-05 02:28 | XMS_ITS | Encounter Summary ---
Author Organization [facility] [place] [address] Care Team Providers Care Dopster Name Role Phone Taylor Bryant ZARA Primary Care Provider [phone] [phone] Reason for Referral * Diagnostic Test (Routine) - Closed Specialty Diagnoses / Procedures Referred By Contac t Referred To Contact Radiology Diagnoses Malignant melanoma, unspecified site Procedures NM PET CT Standard Plus Extremities and Head Inderjit Vilchis MD [facility] DR GILBERT[address] [place] [address] [place] [address] Referral ID Status Reason Start Date Expiration Date V isits Requested Visits Authorized [id number] Closed Specialty Service Requested 07/05/2023 01/02/2025 1 1 Reason for Visit * Diagnostic Test (Routine) - Closed Specialty Diagnoses / Procedures Referred By Contac t Referred To Contact Radiology Diagnoses Malignant melanoma, unspecified site Procedures NM PET CT Standard Plus Extremities and Head Inderjit Vilchis MD [facility] DR GILBERT[place] [address] [place] [address] Referral ID Status Reason Start Date Expiration Date V isits Requested Visits Authorized [id number] Closed Specialty Service Requested 07/05/2023 01/02/2025 1 1 Encounter Details Date Type Department Care Team (Latest Contact Info) Description 07/11/2023 7:45 AM EST Hospital Encounter [place] [address] Inderjit Vilchis MD [facility] DR GILBERTO [place] [address] Malignant melanoma, unspecified site Discharge Disposition: Home Social History Tobacco Use [...] Sig Dispensed Refills Start Date End Date FLUoxetine (PROZAC) 40 mg Capsule Take 40 mg by mouth daily. Ibuprofen 200 mg Capsule Take 600 mg by mouth 2 times daily as needed. acetaminophen (TYLENOL) [address] 120 mg rectally every 4 hours as needed for Fever. 07/26/2023 etanercept (ENBREL) 50 mg/mL (0.98 mL) Syringe Inject 25 mg subcutaneously once. 07/26/2023 Diclofenac Sodium (VOLTAREN XR) 100 mg Tablet Sustained Release 24 hr Take by mouth. 07/26/2023 documented as of this encounter Plan of Treatment Upcoming Encounters Date Type Department Care Team (Late st Contact Info) Description 12/20/2023 2:15 PM EDT Office Visit Dermatology at [facility] [address] [place] [address] Inderjit Vilchis MD [facility] DR GILBERTO [place] [address] 12/22/2023 10:00 AM EDT Office [place] [address] Norm Joy PA [facility] [place] [address] 12/26/2023 11:45 AM EDT Appointment Hematology and Oncology at [place] [address] 12/26/2023 12:45 PM EDT Office Visit Hematology and Oncology at [place] [address] Jean-Pierre Peña MD [facility] DR HEMATOLOGY [place] [address] Vicky Burnham APRN [facility] [place] [address] 12/26/2023 2:30 PM EDT Appointment Hematology and Oncology at [place] [address] 02/06/2024 10:00 AM EDT Appointment Hematology and Oncology at [place] [phone] 02/06/2024 12:45 PM EDT Office Visit Hematology and Oncology at [place] [address] Jean-Pierre Peña MD [facility] DR HEMATOLOGY [place] [address] Vicky Burnham APRN [facility] [place] [address] 02/06/2024 2:00 PM EDT Appointment Hematology and Oncology at [place] [address] documented as of this encounter Procedures Procedure Name Priority Date/Time Associated Diagnosis Comments NM PET CT STANDARD PLUS EXTREMITIES AND HEAD Routine 07/11/2023 9:05 AM EST Malignant melanoma, unspecified site POCT GLUCOSE Routine 07/11/2023 7:51 AM EST documented in this encounter Results * NM PET CT Standard Plus Extremities and Head (07/11/2023 9:05 AM EST) Anatomical Region Laterality Modality Positron Emissio n Tomography (PET) Impressions 07/14/2023 9:53 AM EST 1. ??No residual scalp melanoma is identified in this scan. 2. ??Bilateral cervical lymph node metastases. 3. ??No distant metastases. Thank you for letting us participate in the care of this patient. ??If you are a health care provider and have any questions regarding this report, please contact the number below. ??For patients who have questions please contact the health child daycare worker that requested your imaging first. ? Electronically signed by: Renard Hoffman MD, [facility] ([phone]), at 07/14/2023 9:53 AM Narrative 07/14/2023 9:53 AM EST EXAMINATION: NM PET CT STANDARD PLUS EXTREMITIES AND HEAD CLINICAL HISTORY: Melanoma, staging C43.9, Malignant melanoma of skin, unspecified TECHNIQUE: Procedure: Following IV injection of 95-wqwyye-1-deoxyglucose (FDG) a standard uptake of approximately 60 minutes, a noncontrast CT scan followed by a PET scan were acquired from the top of head to bottom of feet. The noncontrast CT was used for anatomic localization and photon attenuation correction of the PET scan. Blood glucose level: 84 (mg/dL) FDG dose: 12.3 mCi COMPARISON: CT scan chest April 11, 2023 CT scan abdomen and pelvis February 20, 2009 FINDINGS: HEAD/NECK: No abnormal activity is present in scalp. Hypermetabolic lymph nodes are present in the right neck at cervicals level 2 and 3 in the left neck at cervical level 2. CHEST: Normal activity in all soft tissue regions. Coronary artery calcification is present. ABDOMEN/PELVIS: Normal activity in all soft tissue regions. There has been a prior cholecystectomy and hysterectomy. A left renal parapelvic cyst is present. A calcified nodule is seen in the right pelvis, possibly a benign lymph node or retained contrast within a diverticulum from a previously performed examination. SKELETON/EXTREMITIES: Increased activity is present in the soft tissues of the left knee is consistent with inflammation. A left knee joint effusion is present. There is increased activity in the musculature of both feet most likely due to stress-related changes. Procedure Note Renard Hoffman MD - 07/14/2023 EXAMINATION: NM PET CT STANDARD PLUS EXTREMITIES AND HEAD CLINICAL HISTORY: Melanoma, staging C43.9, Malignant melanoma of skin, unspecified TECHNIQUE: Procedure: Following IV injection of 21-rasiob-1-deoxyglucose(FDG) a standard uptake of approximately 60 minutes, a noncontrast CT scanfollowed by a PET scan were acquired from the top of head to bottom of feet. Thenoncontrast CT was used for anatomic localization and photon attenuation correction ofthe PET scan. Blood glucose level: 84 (mg/dL) FDG dose: 12.3 mCi COMPARISON: CT scan chest April 11, 2023 CT scan abdomen and pelvis February 20, 2009 FINDINGS: HEAD/NECK: No abnormal activity is present in scalp. Hypermetabolic lymph nodes are present in the right neck at cervicalslevel 2 and 3 in the left neck at cervical level 2. CHEST: Normal activity in all soft tissue regions. Coronary artery calcification is present. ABDOMEN/PELVIS: Normal activity in all soft tissue regions. There has been a prior cholecystectomy and hysterectomy. A left renalparapelvic cyst is present. A calcified nodule is seen in the right pelvis, possiblya benign lymph node or retained contrast within a diverticulum from apreviously performed examination. SKELETON/EXTREMITIES: Increased activity is present in the soft tissues of the left knee isconsistent with inflammation. A left knee joint effusion is present. There is increased activity in the musculature of both feet most likelydue to stress-related changes. IMPRESSION 1. No residual scalp melanoma is identified in this scan. 2. Bilateral cervical lymph node metastases. 3. No distant metastases. Thank you for letting us participate in the care of this patient. If youare a health care provider and have any questions regarding this report,please contact the number below. For patients who have questions please contactthe health child daycare worker that requested your imaging first. Inderjit Vilchis MD IMG PET ORDERAB LES * POCT Glucose (07/11/2023 7:51 AM EST) POC Glucose 84 65 - 199 mg/dL [facility] Comment: Supplemental ranges: <140 mg/dL before meals <180 mg/dL all other times of the day Blood 07/11/2023 7:51 AM EST 07/11/2023 7:51 AM EST Inderjit Vilchis MD POINT OF CARE T EST ORDERABLES Performing Organization Address City/State/[facility] Co de Phone Number [facility] [place] [address] documented in this encounter Visit Diagnoses Diagnosis Malignant melanoma, unspecified site documented in this encounter Administered Medications Inactive Administered Medications - up to 3 most recent administrations Medication Order MAR Action Action Date Dose Rate Site fludeoxyglucose (F-18) FDG injection 0-20 mCi 0-20 mCi, Intravenous, ONCE PRN, 1 dose, Starting on Tue07/11/23 at 0758, Until Tue07/11/23 at 0755, Per Protocol, Radiology Contrast, Routine Given 07/11/2023 7:55 AM EST 12.3 mCi Left Arm documented in this encounter Care Teams Dopster Relationship Specialty Start Date End Date Taylor Bryant APRN [address] [place] [address] PCP - General 03/31/10 documented as of this encounter
--- OUTSIDE RECORDS SUMMARY | 2023-12-05 02:28 | XMS_ITS | Encounter Summary ---
[facility] Address [facility] [place] [address] Care Team Providers Care Inspector Quality Assurance Name Role Phone Taylor Bryant APRN Primary Care Provider [phone] Encounter Details Date Type Department Care Team (Latest Contact Info) Description 07/11/2023 Travel Social History Tobacco Use Types Packs/Day [...] EDT Office Visit Dermatology at [place] [address] [place] [address] Inderjit Vilchis MD [facility] [address] GILBERTO [place] [address] 12/22/2023 10:00 AM EDT Office [place] [phone] Norm Joy PA [facility] [address] 12/26/2023 11:45 AM EDT Appointment Hematology [place] [address] 12/26/2023 12:45 PM EDT Office Visit [place]ematology [place] [address] Jean-Pierre Peña MD [facility] [place] [address] Vicky Burnham APRN [facility] [place] [address] 12/26/2023 2:30 PM EDT Appointment Hematology and Oncology at [place] [address] 02/06/2024 10:00 AM EDT Appointment Hematology and Oncology at [place] [phone] 02/06/2024 12:45 PM EDT Office Visit Hematology and Oncology at [place] [address] Jean-Pierre Peña MD [facility] [address] [place] [address] Vicky Burnham [facility] [place] [address] 02/06/2024 2:00 PM EDT Appointment Hematology and Oncology at [place] [phone] documented as of this encounter Visit Diagnoses Not on filedocumented in this encounter Care Teams Inspector Quality Assurance Relationship Specialty Start Date End Date Taylor Bryant APRN [address] [place] [address] PCP - General 03/31/10 documented as of this encounter
--- OUTSIDE RECORDS SUMMARY | 2023-12-05 02:28 | XMS_ITS | Encounter Summary ---
Author Organization [facility] Address [facility] [place] [address] Care Team Providers Care Spike Machine Feeder Name Role Phone Taylor Bryant APRN Primary Care Provider [phone] Reason for Referral * Diagnostic Test (Routine) - Closed Specialty Diagnoses / Procedures Referred By Crista padron Referred To Contact Radiology Diagnoses Malignant melanoma of scalp Procedures NM Lymphoscintigraphy w Imaging Melanoma or Skin Cancer Castro Preciado MD [facility] [place] [address] [place] [address] Referral ID Status Reason Start Date Expiration Date V isits Requested Visits Authorized [id number] Closed Specialty Service Requested 08/18/2023 02/16/2025 1 1 Reason for Visit * Reason Comments Other She is here to talk to you about taking the cancer off her head. * Comprehensive Melanoma Consult (Routine) - Closed Specialty Diagnoses / Procedures Referred By Crista padron Referred To Contact Otolaryngology Diagnoses Malignant melanoma, unspecified site sent to KENZIE and Javed 08/[address] [facility] [address] GILBERTO [place] [address] [facility] Otolaryngology [address] [place] [id number] Referral ID Status Reason Start Date Expiration Date V isits Requested Visits Authorized [id number] Closed Consult, Test & Treat 07/05/2023 07/04/2024 1 1 Encounter Details Date Type Department Care Team (Late st Contact Info) Description 08/18/2023 8:40 AM EDT Office Visit Otolaryngology at [facility] [place] [address] [facility] [place] [address] Malignant melanoma of scalp (Primary Dx); Psoriatic arthritis Social History Tobacco Use Types Packs/Day Years Used Date Smoking Tobacco: Former Smokeless Tobacco: Never Comments:quit at age 35 Alcohol Use Standard Drinks/Week Comments Yes 0 (1 standard drink = 0.6 oz pur e alcohol) social gatherings [facility] Utilities Answer Date Recorded In the [...] Sign Reading Time Taken Comments Blood Pressure 137/77 08/18/2023 8:36 AM EDT Pulse 73 08/18/2023 8:36 AM EDT Temperature 36.4 ??C (97.6 ??F) 08/18/2023 8:36 AM ED T Respiratory Rate - - Oxygen Saturation 100% 08/18/2023 8:36 AM EDT Inhaled Oxygen Concentration - - Weight 73.8 kg (162 lb 9.6 oz) 08/18/2023 8:36 A M EDT Height 160 cm (5' 3) 08/18/2023 8:36 AM EDT Body Mass Index 28.8 08/18/2023 8:36 AM EDT documented in this encounter Progress Notes * Cara Mendoza PA - 08/18/2023 8:40 AM EDT Images from the original note were not included. [facility] New Patient Consultation I was asked to see Keeley Gutierrez in consultation by Inderjit Vilchis for right occipital scalp melanoma. History was obtained through review of the relevant records, discussion with referring physician and/or patient interview. Biopsy on 06/21/2023 was consistent with malignant melanoma, increased 1.5 mm depth, T2a. PET/CT on 07/11/2023 showed [...] history of small lesions on her head. She saw dermatology many years ago for these and were told they were benign and did not require follow up. Patient reports occasional frontal headaches (induced by stress). No history of migraines. She is always cold. She reports constant fatigue which has been worse since since june. She also reportsdizziness/dysequilibrium after turning abruptly over the last few months. She had a few falls a fewweeks ago. None since due to known what triggers theses feelings of dysequilibrium. Denies associated vertigo, nausea, vomiting or changes in hearing. She reports dyspnea mild exertion such as making the bed and walking short distances, bending over) She denies recent weight loss, fever, chills, night sweats, dizziness, or presence of lumps in her neck. No referred otalgia, dysphagia to solids/liquids, odynophagia, trismus, dysphonia, or lymphadenopathy. No preceding trauma to the area. Reports occasional ETOH intake, 1-2 glasses of wine occasionally and a history of 1 PPD of cigarettes use from age 15 through 35. No other drug use in history Past medical history of psoriatic arthritis over 20 years for which she was on etanercept for several months in 2020, She is also s/p hysterectomy at age 38 due to cervical cancer, additionally, her gallbladder was removed at age 35 after an episode of acute cholecystitis. No prior complications with anesthesia. No family history of head or neck cancer. Extensive family history of cancer on her fathers side (cervical cancer, lung cancer due to smoking). History of cervical cancer in paternal grandmother, lung cancer in father, and brother with has history of lung cancer, prostate cancer, and recently foundgallbladder lesion (removed - stones, no cancer found). Reports an allergy to codeine (GI upset). Patient worked in [employer]. She takes of 2 little girls now. Patient lives in her dog and 3 cats and her boyfriend at times. PROBLEM LIST Patient Active Problem List Diagnosis [...] Prior to Visit Medication Sig Dispense Refill elderberry fruit 350 mg Capsule Take by mouth. cholecalciferol, Vitamin D3, 50 mcg (2,000 unit) Capsule Take by mouth. Ibuprofen 200 mg Capsule Take 600 mg by mouth 2 times daily as needed. FLUoxetine (PROZAC) 40 mg Capsule Take 40 mg by mouth daily. No current facility-administered medications on file prior to visit. ALLERGIES Allergies Allergen Reactions Codeine Phosphate CIS - vomit ROS Pertinent positive findings discussed above. No other findings on review of constitutional visual, cardiovascular, respiratory, gastrointestinal, genitourinary, musculoskeletal, dermatologic, neurological, psychiatric, endocrine, hematologic or immunologic systems. PHYSICAL EXAMINATION Vitals: Blood pressure 137/77, pulse 73, temperature 36.4 ??C (97.6 ??F), height 160 cm (5' 3), weight 73.8 kg (162 lb 9.6 oz), SpO2 100%. General: No acute distress. No hoarseness or Head: 2 cm x 1.5 cm pigmented right occipital scalp lesion with several erythematous nodules. Face: Normocephalic and atraumatic Eyes: Extraocular movement is full and intact. No dysconjugate gaze. No evidence of nystagmus. Periocularstructures and conjunctiva healthy without lesions. Ears: Normal exam of the external ear, canal and tympanic membrane. Nose: Normal external exam. Normal exam of the septum and turbinates. Mouth: Lips and gingiva pink, moist, without lesions. Top and bottom dentures. Tongue and floor of mouth soft without lesions or masses. Hard palate without lesions. Pharynx: Normal exam of the tonsils, tonsillar fossa, soft palate, lateral pharyngeal wall, and posterior pharynx. Salivary: Normal exam of the parotid and submandibular glands. Neck: Soft supple without significant lymphadenopathy. Thyroid gland without masses or asymmetry. Tracheamidline without deviation. Resp: Breathing comfortably without stridor or retractions. Normal respirations. CV: Normal carotid pulses. MSK: Normal neck range of motion, no trismus. Skin: 2 cm x 1.5 cm pigmented right occipital scalp lesion with several erythematous nodules. Remainder of skin survey of the head and neck is without concerning lesion. Neurologic: Cranial nerves II-XII intact and symmetric. AxOx3, responds appropriately to questions. Psych: Normal mood and affect. PROCEDURES None REVIEW OF IMAGES/STUDIES Biopsy on 06/21/2023 was consistent with malignant melanoma, increased 1.5 mm depth, T2a. PET/CT on 07/11/2023 showed bilateral hypermetabolic cervical lymph nodes concerning for metastasis, no obvious distant metastasis. 08/01/2023 brain MRI showed no mets. 08/09/23 right cervical chain lymph node biopsy was negative for malignancy. ASSESSMENT/RECOMMENDATIONS Keeley Gutierrez is a 58 y.o. female who presented to Dr. Preciado's clinic with biopsy proven right occipital scalp melanoma. Exam findings and history are concerning for 2 cm x 1.5 cm pigmented scalp lesion with several erythematous nodules. No palpable lymphadenopathy. The lesion was first noticed on 06/12/23. She reports the lesions have become approximately 50% more exophytic over the last few weeks. Recommendations: - Plan for Surgery: Wide local excision of scalp lesion (1 inch margins) with staged reconstructionapproximately 10-14 days after excision once confirmation of clear margins from pathology taken during OR excision have resulted. She would taken approximately 3 hours and she would likely go home the day of surgery. Discussed pathology results typically return 10 days after they are taken. Discussed reconstruction may be achieved with a skin graft. - Discussed indication and plan for a sentinel lymph node biopsy with nuclear medicine prior to planned excision which would take place on the same day of surgery. - Discussed risks, benefits, and alternatives to surgical treatment. Discussed risks include bleeding, infection, need for additional procedures, and damage to surrounding structures. - Anesthesiology questionnaire and consent forms signed. Patient seen with Dr. Preciado. I appreciate the opportunity to be involved in Ms. Gutierrez's care. Cara Mendoza PA-C Resident Division of Otolaryngology-[place] [address] 08/18/23 8:44 AM ENT CONSULTATION- ATTENDING STAFF NOTE: The patient has been requested in consultation by Inderjit Vilchis and Sergo Ingram E&M of newly diagnosed melanoma of the R posterior scalp The patient's history and physical findings are confirmed. As noted, she is an otherwise healthy F with a lesion on the posterior superior R scalp noted by her sister c/o itching but no bleeding and no neck mass No constitutional symptoms otherwise. We evaluated in dermatology and bx done c/w melanoma. He underwent PET CT which I reviewed showing bilateral neck metastasis and in particular an FDG avid node in R level 2 A. FNAB of the neck mass was negative for metastatic melanoma. She had reported headaches and an MRI was negative for concerning disease. [facility] was [facility] and planswere dependent on his FNAB. A complete ENT examination was done and main findings are: BP 137/77 (BP Location (NBP): Left arm, Patient Position: Sitting, BP Cuff Sizes: Adult (25-34 cm)) Pulse 73 Temp 36.4 ??C (97.6 ??F) Ht 160 cm (5' 3) Wt 73.8 kg (162 lb 9.6 oz) SpO2 100% BMI 28.80 kg/m?? She is accompanied by her son, her boyfriend and her mother. She has a pigmented slightly raised lesion measuring about 2 cm in greatest dimension with irregular borders within the hair of the superior R vertex of her scalp. She had no palpable LAD. I also reviewed personally the hematologic and radiologic investigations and agree with the documentation reported. I agree with the plan outlined above. All the patient's questions were answered. We discussed plansof taking her to the OR for WLE excision with 2 cm margins and covering defect with a temporary dressing along with performing SLN mapping/bx ( and we discussed planning a lymphoscintigraphy) since these first echelon nodes may not be detectable on her PET. She will then have secondary reconstruction with FTSG vs rearrangement as a secondary step after the pathology is completed. Her questions were fully answered and consents done I will discuss her case with Dr Peña. Castro Preciado MD, [facility] Attending Staff documented in this encounter Plan of Treatment Upcoming Encounters Date Type Department Care Team (Late st Contact Info) Description 12/20/2023 2:15 PM EDT Office Visit Dermatology at [facility] [address] [place] [address] [facility] [place] [address] 12/22/2023 10:00 AM EDT Office Visit Otolaryngology at [place] [address] [facility] [place] [address] 12/26/2023 11:45 AM EDT Appointment Hematology and Oncology at [place] [address] 12/26/2023 12:45 PM EDT Office Visit Hematology and Oncology at [place] [address] Jean-Pierre Peña MD [facility] [place] [address] [facility] [place] [address] 12/26/2023 2:30 PM EDT Appointment Hematology and Oncology at [place] [address] 02/06/2024 10:00 AM EDT Appointment Hematology and Oncology at [address] 02/06/2024 12:45 PM EDT Office Visit Hematology and Oncology at [address] Jean-Pierre Peña MD [facility] [place] [address] [facility] [place] [address] 02/06/2024 2:00 PM EDT Appointment Hematology [place] [address] documented as of this encounter Results * NM Lymphoscintigraphy w Imaging Melanoma or Skin Cancer (09/16/2023 9:54 AM EDT) WORKSTATION ID [id number] RAD Anatomical Region Laterality Modality Nuclear Medicine Impressions 09/16/2023 12:37 PM EDT Joice lymph nodes in the right levels 2 and 5 regions as above. Thank you for letting us participate in the care of this patient. ??If you are a health care provider and have any questions regarding this report, please contact the number below. ??For patients who have questions please contact the health property caretaker that requested your imaging first. ? Narrative [...] right level 5 (axial image 28). IMPRESSION Joice lymph nodes in the right levels 2 and 5 regions as above. Thank you for letting us participate in the care of this patient. If youare a health care provider and have any questions regarding this report,please contact the number below. For patients who have questions please contactthe health property caretaker that requested your imaging first. Castro Preciado MD [facility] ORDER[facility]LES documented in this encounter Visit Diagnoses Diagnosis Malignant melanoma of scalp- Primary Malignant melanoma of skin of scalp and neck Psoriatic arthritis Psoriatic arthropathy Malignant melanoma of scalp Malignant melanoma of skin of scalp and neck documented in this encounter Care Teams Spike Machine Feeder Relationship Specialty Start Date End Date Taylor Bryant APRN [address] [place] [address] PCP - General 03/31/10 documented as of this encounter
--- OUTSIDE RECORDS SUMMARY | 2023-12-05 02:28 | XMS_ITS | Encounter Summary ---
Author Organization [facility] Address [facility] [place] [address] Care Team Providers Care Pipefitter Helper Name Role Phone Taylor Bryant APRN Primary Care Provider [phone] Encounter Details Date Type Department Care Team (Latest Contact Info) Description 07/29/2023 Travel Social History Tobacco Use Types Packs/Day Years Used Date Smoking Tobacco: Former Smokeless Tobacco: Never Comments:quit at age 35 Alcohol Use Standard Drinks/Week Comments Yes 0 (1 standard drink = 0.6 oz pur e alcohol) social gatherings [facility] Utilities Answer Date Recorded In the past [...] in a intermediate (including now)? No 07/24/2023 Sex and Gender Information Value Date Recorded Sex Assigned at Not on file Gender Identity Not on file Sexual Orientation Not on file documented as of this encounter Plan of Treatment Upcoming Encounters Date Type Department Care Team (Late st Contact Info) Description 12/20/2023 2:15 PM EDT Office Visit Dermatology at [facility] [address] [place] [address] Inderjit Vilchis MD [facility] DR GILBERTO [place] [address] 12/22/2023 10:00 AM EDT Office [place] [address] Norm Joy PA [facility] [place] [place] [address] 12/26/2023 11:45 AM EDT Appointment Hematology [place] [address] 12/26/2023 12:45 PM EDT Office Visit [place]ematology [place] [address] Jean-Pierre Peña MD [facility] [place] [address] Vicky Burnham APRN [facility] [place] [address] 12/26/2023 2:30 PM EDT Appointment Hematology [place] [address] 02/06/2024 10:00 AM EDT Appointment Hematology [place] [address] 02/06/2024 12:45 PM EDT Office Visit [place]ematology [place] [address] Jean-Pierre Peña MD [facility] [place] [address] Vicky Burnham APRN [facility] [place] [address] 02/06/2024 2:00 PM EDT Appointment Hematology [place] [address] documented as of this encounter Visit Diagnoses Not on filedocumented in this encounter Care Teams Pipefitter Helper Relationship Specialty Start Date End Date Taylor Bryant, FIELD RESEARCH ASSISTANT [address] [place] [address] PCP - General 03/31/10 documented as of this encounter
--- OUTSIDE RECORDS SUMMARY | 2023-12-05 02:28 | XMS_ITS | Encounter Summary ---
Author Organization [facility] Address [facility] [place] [address] Care Team Providers Care Broomcorn Grader Name Role Phone Taylor Bryant APRN Primary Care Provider [phone] Encounter Details Date Type Department Care Team ([facility] st Contact Info) Description 07/13/2023 Telephone Dermatology at [facility] [address] [place] [address] Inderjit Vilchis MD [facility] DR GILBERT[place] [address] Social History Tobacco Use Types Packs/Day Years [...] encounter Miscellaneous Notes * Telephone Encounter - Josee Krishnamurthy LPN - 07/15/2023 4:14 PM EST I spoke with patient and advised her that she should be hearing from Robina at the tumor board for best next steps and let her know she would call back anyttime * Telephone Encounter - Kina Edmonds - 07/15/2023 8:11 AM EST Patient called back anxious about waiting on the results. GEMMA Haskins confirmed that the results have not been reviewed by Dr. Vilchis as of yet. Patient will get a call once this has been done. * Telephone Encounter - Josee Krishnamurthy LPN - 07/13/2023 11:18 AM EST Called patient and let her know that the results are not yet available * Telephone Encounter - Kina Edmonds - 07/13/2023 11:08 AM EST Patient is very anxious to get the results of her PET Scan that she had on Tuesday. Please call backat [phone]. documented in this encounter Plan of Treatment Upcoming Encounters Date Type Department Care Team (Late st Contact Info) Description 12/20/2023 2:15 PM EDT Office Visit Dermatology at [address] [address] Inderjit Vilchis MD [facility] DR GILBERT[place] [address] 12/22/2023 10:00 AM EDT Office [place] [address] Norm Joy PA [facility] [place] [address] 12/26/2023 11:45 AM EDT Appointment Hematology [place] [address] 12/26/2023 12:45 PM EDT Office Visit [place]ematology [place] [address] Jean-Pierre Peña MD [facility] [place] [address] Vicky Burnham APRN [facility] [place] [address] 12/26/2023 2:30 PM EDT Appointment Hematology [place] [address] 02/06/2024 10:00 AM EDT Appointment Hematology and Oncology at [place] [id number] 02/06/2024 12:45 PM EDT Office Visit Hematology and Oncology at [place] [phone] Jean-Pierre Peña MD [facility] DR HEMATOLOG[place] [address] Vicky Burnham PERSONAL LINES UNDERWRITER [facility] [place] [address] 02/06/2024 2:00 PM EDT Appointment Hematology and Oncology at [place] [id number] documented as of this encounter Visit Diagnoses Not on filedocumented in this encounter Care Teams Broomcorn Grader Relationship Specialty Start Date End Date Taylor Bryant APRN [address] [place] [address] PCP - General 03/31/10 documented as of this encounter
--- OUTSIDE RECORDS SUMMARY | 2023-12-05 02:28 | XMS_ITS | Encounter Summary ---
Author Organization [facility] Address [facility] [place] [address] Care Team Providers Care Animal Care Taker Name Role Phone Taylor Bryant APRN Primary Care Provider [phone] [phone] Reason for Visit * Diagnostic Test (Routine) - Closed Specialty Diagnoses / Procedures Referred By Crista t Referred To Contact Radiology Diagnoses Malignant melanoma, unspecified site Procedures NM PET CT Standard Plus Extremities and Head Inderjit Vilchis MD [facility] DR GILBERT[place] [address] [facility] [place] [address] Referral ID Status Reason Start Date Expiration Date V isits Requested Visits Authorized [id number] Closed Specialty Service Requested 07/05/2023 01/02/2025 1 1 Encounter Details Date Type Department Care Team (Latest Contact Info) Description 07/11/2023 7:46 AM EST - 07/11/2023 11:59 PM [facility] Hospital Encounter [place] [address] Inderjit Vilchis MD [facility] DR GILBERTO [place] [address] Discharge Disposition: Home Social History Tobacco Use [...] 2:15 PM EDT Office Visit Dermatology at [address] [address] Inderjit Vilchis MD [facility] DR GILBERTO [place] [address] 12/22/2023 10:00 AM EDT Office [place] [address] Norm Joy PA [facility] [place] [address] 12/26/2023 11:45 AM EDT Appointment Hematology [place] [address] 12/26/2023 12:45 PM EDT Office Visit Hematology [place] [address] Jean-Pierre Peña MD [facility] [place] [address] Vicky Burnham, PRECINCT CAPTAIN [facility] [place] [address] 12/26/2023 2:30 PM EDT Appointment Hematology [place] [address] 02/06/2024 10:00 AM EDT Appointment Hematology [place] [address] 02/06/2024 12:45 PM EDT Office Visit Hematology [place] [address] Jean-Pierre Peña MD [facility] [place] [address] Vicky Burnham APRN [facility] [place] [place] [address] 02/06/2024 2:00 PM EDT Appointment Hematology [place] [address] documented as of this encounter Procedures Procedure Name Priority Date/Time Associated Diagnosis Comments NM PET CT STANDARD PLUS EXTREMITIES AND HEAD Routine 07/11/2023 9:05 AM EST Malignant melanoma, unspecified site documented in this encounter Results * NM [...] who have questions please contact the health career development specialist that requested your imaging first. ? Electronically signed by: Renard Hoffman MD, [facility] ([phone]), at 07/14/2023 9:53 AM Narrative 07/14/2023 9:53 AM EST EXAMINATION: NM PET CT STANDARD PLUS EXTREMITIES AND HEAD CLINICAL HISTORY: Melanoma, staging C43.9, Malignant melanoma of skin, unspecified TECHNIQUE: Procedure: Following IV injection of 53-kjofvq-9-deoxyglucose (FDG) a standard uptake of approximately 60 [...] unspecified TECHNIQUE: Procedure: Following IV injection of 76-jpfrnp-1-deoxyglucose(FDG) a standard uptake of approximately 60 minutes, [...] patients who have questions please contactthe health career development specialist that requested your imaging first. Electronically signed by: Renard Hoffman MD, [facility]([phone]), at 07/14/2023 9:53 AM Inderjit Vilchis MD IMG PET ORDERAB LES documented in this encounter Visit Diagnoses Not on filedocumented in this encounter Care Teams Animal Care Taker Relationship Specialty Start Date End Date Taylor Bryant APRN [address] [place] [address] PCP - General 03/31/10 documented as of this encounter
--- OUTSIDE RECORDS SUMMARY | 2023-12-05 02:28 | XMS_ITS | Encounter Summary ---
Author Organization [facility] Address [facility] [place] [address] Care Team Providers Care Vac Press Operator Name Role Phone Taylor Bryant APRN Primary Care Provider [phone] [phone] Encounter Details Date Type Department Care Team (Latest Contact Info) Description 07/14/2023 12:09 PM EST - 07/14/2023 11:59 PM EST Hospital [place] [phone] Discharge Disposition: Home Social History Tobacco Use [...] 2:15 PM EDT Office Visit Dermatology at [facility] [address] [place] [phone] Inderjit Vilcihs MD [facility] DR GILBERTO [place] [address] 12/22/2023 10:00 AM EDT Office Visit Otolaryngology at [place] [address] Norm oJy PA [facility] [address] 12/26/2023 11:45 AM EDT Appointment Hematology and Oncology at [place] [address] 12/26/2023 12:45 PM EDT Office Visit Hematology and Oncology at [place] [address] Jean-Pierre Peña MD [facility] DR HEMATOLOGY [place] [address] Vicky Burnham APRN [facility] [place] [address] 12/26/2023 2:30 PM EDT Appointment Hematology and Oncology at [address] 02/06/2024 10:00 AM EDT Appointment Hematology and Oncology at [place] [phone] 02/06/2024 12:45 PM EDT Office Visit Hematology and Oncology at [address] Jean-Pierre Peña MD [facility] [place] [address] Vicky Burnham APRN [facility] [place] [address] 02/06/2024 2:00 PM EDT Appointment Hematology [place] [address] documented as of this encounter Procedures Procedure Name Priority Date/Time Associated Diagnosis Comments SURGICAL PATHOLOGY REPORT Routine 07/14/2023 12:09 PM EST documented in this encounter Results * (ABNORMAL) Surgical Pathology Report (07/14/2023 12:09 PM EST) FINAL DIAGNOSIS (AP) [id number] ? Location: OPW The signing pathologist has (i) examined the relevant preparation(s) for the specimen(s) and (ii) rendered or confirmed the diagnosis(es). . ?Molecular Genetics RESULTS TARGETED BRAF AND NRAS VARIANT ANALYSIS INDICATION FOR STUDY: Invasive Melanoma SPECIMEN: Tissue case/block [id number] containing approximately 60% tumor cells in the selected region of tissue. ANALYSIS: ??BRAF and NRAS Variant Analysis RESULTS: Positive for the BRAF V600K/R variant. INTERPRETATION: The results of this test indicate that the tested tissue was positive for a clinically relevant variant in either the BRAF or NRAS genes that are included in this assay (see Method). Somatic variants in BRAF have been found in 37-50% of all malignant melanomas. BRAF variants can be found in all melanoma subtypes. The most prevalent BRAF variants detected in melanoma are missense mutations that introduce an amino acid substitution at valine 600. The result of these variants is enhanced BRAF kinase activity and increased phosphorylation of downstream targets, particularly MEK. Somatic variants in NRAS can be found in 13 ?? -25% of all melanomas. Mutant NRAS tumors have been shown to be sensitive to MAPK pathway inhibitors and some show partial response to BRAF inhibitors. METHODS: ??A formalin-fixed, paraffin-embedded tissue section was introduced directly into the [employer] NRAS-BRAF cartridge where DNA extraction, real time PCR and variant detection were performed. This assay tests for the following NRAS and BRAF variants: NRAS Codon 12 (exon 2): G12C (c.34G>T), G12S (c.34G>A), G12D (c.35G>A), G12A (c.35G>C), G12V (c.35G>T); Codon 13 (exon 2): G13D (c.38G>A), G13V (c.38G>T), G13R (c.37G>C); Codon 59 (exon 3): A59T (c.175G>A); Codon 61 (exon 3): Q61K (c.181C>A), Q61L (c.182A>T), Q61R (c.182A>G), Q61H (c.183A>C; c.183A>T); Codon 117 (exon 4): K117N (c.351G>C; c.351G>T); Codon 146 (exon 4): A146T, A146V (c.436G>A), (c.437C>T) BRAF Codon 600: V600E (c.1799T>A; c.1799_1800delinsA A), V600D (c.1799_1800delins AC), V600K (c.1798_1799delins AA), V600R (c.1798_1799delins AG) LIMITATIONS AND DISCLAIMERS: ? Although unlikely, rare variants or polymorphisms (known or unknown) have the potential to interfere with the performance of this test, producing false negative or false positive results. ? When genotyping results are not consistent with other clinical observations or test results, additional testing should be considered. This test is validated to reliably detect variants present in samples containing at least 10% tumor cells. Samples with lower tumor content may result in false negative results. This test was developed and its performance characteristics determined by the [facility] ([facility] Laboratory at [facility]. It has not been cleared or approved by the FDA. The laboratory is regulated under CLIA as qualified to perform high-complexity testing. This test is used for clinical purposes. It should not be regarded as investigational or for research. . RESULTS REFERENCES: Jason ULRICH, et al. Clin Cancer Res 2014 ?;20:9005-2805 (PMID:[id number]) Sae EI, et al. Trends Cancer 2016 ? ;2:305-312 (PMID:56489014) Vj LI, et al. Agata Rev Clin Oncol 2017 ?;14:463-482 (PMID:[id number]) _ Electronically signed by: ?Yasmany Galvin, Alvarado Zapata Verified: ??08/04/2023 6:50 ?? Director, Molecular Pathology Performed at: ??-[facility] Dept. of Pathology, [place] [address] Labor Utilization Superintendent: Johnnie Stephens MD, FCAP, ??CLIA Certificate: [id number] ?Surgical Pathology DIAGNOSIS CONSULTATION CASE Outside slide(s) labeled [id number], collection date 06/21/2023. Right parietal scalp, skin punch biopsy: - Invasive melanoma, non-ulcerated, Breslow depth of 1.5 mm, present at the peripheral specimen edges (see synoptic report) Electronically signed by: ?Patrick ROBLES, PhD, Ladarius Sims Verified: ??07/15/2023 15:20 ??[address], Bone & Soft Tissue Pathologist Performed at: ??-[facility] Dept. of Pathology, [place] [address] Labor Utilization Superintendent: Johnnie Stephens MD, FCAP, ??CLIA Certificate: [id number] SYNOPTIC Specimen ? Procedure: ??Biopsy, punch ? Specimen Laterality: ??Right Tumor ? Tumor Site: ??Skin of scalp and neck - parietal scalp Histologic Type: ??Melanoma, not otherwise classified Maximum Tumor (Breslow) Thickness (Millimeters): ??1.5 mm Ulceration: ??Not identified Mitotic Rate: ??6 mitoses per mm2 Microsatellite(s): ??Cannot be determined Lymphovascular Invasion: ??Not identified Neurotropism: ??Not identified Tumor-Infiltrating Lymphocytes: ??Not identified Tumor Regression: ??Not identified Margins ? Margin Status for Invasive Melanoma: ??Invasive melanoma present at margin ?Margin(s) Involved by Invasive Melanoma: ??Peripheral ? Margin Status for Melanoma in situ: ??Melanoma in situ present at margin ?Margin(s) Involved by Melanoma in Situ: ??Peripheral Pathologic Stage Classification (pTNM, AJCC 8th Edition) ? pT Category: ??pT2a ? CAP [facility] 2021 Q1 Release DISCUSSION I agree with the diagnosis rendered at the outside institution. THIS RESULT REQUIRES PHYSICIAN/A.P.P. FOLLOW UP SPECIMEN(S) SUBMITTED CONSULTATION CASE A - 1 slide(s) labeled [id number], collection date 06/21/2023. [id number] CARBON COPY: [facility] [address], [address] . SPECIMEN(S) [place] [address] P: [phone] F: [phone] CLINICAL INFORMATION Lesion SPECIMEN PROCESSING [facility] pathology slide(s) are reviewed. Refer to Diagnosis and Specimen Submitted for specific case information. For the full text of the [facility] report(s) please refer to the Chart Review Media tab in the electronic health record (eDH).(A) 08/04/2023 6:50 AM EDT [facility] Consult Case 07/14/2023 12:0 9 PM EST 07/14/2023 12:09 PM EST Inderjit Vilchis MD PATHOLOGY/CYTOL ROSAURA ORDERABLES [facility] [place] [address] documented in this encounter Visit Diagnoses Not on filedocumented in this encounter Care Teams Vac Press Operator Relationship Specialty Start Date End Date Taylor Bryant APRN [address] [place] [address] PCP - General 03/31/10 documented as of this encounter
--- OUTSIDE RECORDS SUMMARY | 2023-12-05 02:28 | XMS_ITS | Encounter Summary ---
Author Organization [facility] Address [facility] [place] [address] Care Team Providers Care Flask Pusher Name Role Phone AnnetteTaylor ZARA Primary Care Provider [phone] [phone] Reason for Referral * Diagnostic Test (Routine) - Closed Specialty Diagnoses / Procedures Referred By Crista t Referred To Contact Radiology Diagnoses Malignant melanoma, unspecified site Procedures MRI Brain wwo Contrast (Generic) Neida Luong APRN [facility] [address] [place] [address] [place] [address] Referral ID Status Reason Start Date Expiration Date V isits Requested Visits Authorized [id number] Closed Specialty Service Requested 07/19/2023 01/18/2025 1 1 Reason for Visit * Diagnostic Test (Routine) - Closed Specialty Diagnoses / Procedures Referred By Contjono t Referred To Contact Radiology Diagnoses Malignant melanoma, unspecified site Procedures MRI Brain wwo Contrast (Generic) Neida Luong APRN [facility] [address] [place] [address] [place] [address] Referral ID Status Reason Start Date Expiration Date V isits Requested Visits Authorized [id number] Closed Specialty Service Requested 07/19/2023 01/18/2025 1 1 Encounter Details Date Type Department Care Team ([facility] st Contact Info) Description 08/01/2023 7:23 AM EDT - 08/01/2023 11:59 PM EDT Hospital Encounter MRI at [facility] [place] [address] Neida Luong [address]N [facility] [place] [address] Malignant melanoma, unspecified site Discharge Disposition: Home Social History Tobacco Use Types Packs/Day Years Used Date Smoking Tobacco: Former Smokeless Tobacco: Never Comments:quit at age 35 Alcohol Use Standard Drinks/Week Comments Yes 0 (1 standard drink = 0.6 oz pur e alcohol) social gatherings [facility] Utilities Answer Date Recorded In [...] needed. 09/16/2023 documented as of this encounter Progress Notes * Myke Neal LPN - 07/27/2023 2:47 PM EDT MRI PRE-SEDATION ASSESSMENT NOTE NAME: Keeley Gutierrez AGE: 58 y.o. : [address] [place] [address] Female [phone] (home) Telephone Information: Taylor Bryant APRN None Allergies Allergen Reactions Codeine Phosphate CIS - vomit Date/Time of call: July 27, 2023/2:47 PM/ SCHEDULED SCAN: MRI BRAIN WWO CONTRAST (GENERIC) [[id number]] HEIGHT: WEIGHT: Have you had a PREVIOUS MRI SCAN? Yes Are you claustrophobic or anxious in the scanner? Yes CAN YOU LAY FLAT? yes Do you have trouble breathing when lying flat? No DO YOU HAVE ANY INVOLUNTARY MOVEMENTS? No DO YOU TAKE PAIN MEDICATION ON A DAILY BASIS? No PLAN: Ativan ordered You must have a otr company driver present when you check in. This patient has been informed that they require a otr company driver to drive them home after this procedure. In the absence of a otr company driver, IR will not be able tosedate for your scan. Pt verbalized understanding of these instructions during the pre-procedure education via phone. Yes [place] of otr company driver: Phone number: PRIOR SCAN DATE/S SEDATION TYPE SUCCESSFUL None prior 08/01/23 MRI brain wwo Ativan 1mg Po x 1 Revised 11/02/2022 documented in this encounter Plan of Treatment Upcoming Encounters Date Type Department Care Team (Late st Contact Info) Description 12/20/2023 2:15 PM EDT Office Visit Dermatology at [facility] [address] [place] [address] Inderjit Vilchis MD [facility] DR GILBERTO STERLING-DERMATOLOGY [place] [id number] 12/22/2023 10:00 AM EDT Office Visit Otolaryngology at [address] Norm Joy PA [facility] [place] [address] 12/26/2023 11:45 AM EDT Appointment Hematology and Oncology at [place] [phone] 12/26/2023 12:45 PM EDT Office Visit Hematology and Oncology at [place] [address] Jean-Pierre Peña MD [facility] [place] [address] Vicky Burnham APRN [facility] [place] [address] 12/26/2023 2:30 PM EDT Appointment Hematology and Oncology at [place] [phone] 02/06/2024 10:00 AM EDT Appointment Hematology and Oncology at [place] [phone] 02/06/2024 12:45 PM EDT Office Visit Hematology and Oncology at [place] [phone] Jean-Pierre Peña MD [facility] [place] [address] Vicky Burnham APRN [facility] [place] [address] 02/06/2024 2:00 PM EDT Appointment Hematology and Oncology at [facility] [place] [address] documented as of this encounter Procedures Procedure Name Priority Date/Time Associated Diagnosis Comments MRI BRAIN WWO CONTRAST (GENERIC) Routine 08/01/2023 9:47 AM EDT Malignant melanoma, unspecified site documented in this encounter Results * MRI Brain wwo [...] have questions please contact the health child care director that requested your imaging first. ? Narrative 08/01/2023 3:10 PM EDT EXAMINATION: MRI [...] bilateral level II lymph nodes. Procedure Note Mtaty Mukherjee MD - 08/01/2023 EXAMINATION: MRI BRAIN [...] who have questions please contactthe health child care director that requested your imaging first. Neida Luong APRN [facility] ORDERABLES documented in this encounter Visit Diagnoses Diagnosis Malignant melanoma, unspecified site documented in this encounter Administered Medications Inactive Administered Medications - up to 3 most recent administrations Medication Order MAR Action Action Date Dose Rate Site LORazepam (Ativan) tablet 1 mg 1 mg, Oral, EVERY 30 MIN PRN, 2 doses, Starting on Tue08/01/23 at 0708, Until Tue08/02/23 at 0432, Anxiety, Minimal Sedation per Department of Radiology Adult Minimal Sedation Guidelines: Give 50 minutes prior to scan., Day of Surgery (Day of Procedure), Routine Given 08/01/2023 8:06 AM EDT 1 mg documented in this encounter Care Teams Flask Pusher Relationship Specialty Start Date End Date Taylor Bryant APRN [address] [place] [address] PCP - General 03/31/10 documented as of this encounter
--- OUTSIDE RECORDS SUMMARY | 2023-12-05 02:28 | XMS_ITS | Encounter Summary ---
Author Organization [facility] Address [facility] [place] [address] Care Team Providers Care Repairer Maintenance Building Name Role Phone Taylor Bryant APRN Primary Care Provider [phone] Encounter Details Date Type Department Care Team (Latest Contact Info) Description 07/12/2023 Multidisciplinary Ca re Committee Dermatology at [facility] [address] [place] [address] Inderjit Vilchis MD [facility] DR [place] [address] Social History Tobacco Use Types Packs/Day Years Used Date Smoking Tobacco: Former Smokeless Tobacco: Never Comments:quit at age 35 Alcohol Use Standard Drinks/Week Comments Yes 0 (1 standard drink = 0.6 oz pur e alcohol) social gatherings [facility] Utilities Answer Date Recorded [...] in a [facility] (including now)? No 07/24/2023 DH IPV Inpatient [...] as of this encounter Progress Notes * Renee Watters - 07/12/2023 12:05 PM EST Melanoma - Tumor Board Note Date Presented: 07/12/2023 Presenting Physician: Mame Diagnosis/Tumor Site: Is this Metastatic Disease: NA Synopsis of History/HPI: Imaging: Pathology/Histology: Path requested 07/05. Spoke to [facility] on 07/10 and was advised they'll send it via [facility] in the next day or two. Stage: Clinical Data (Exams, Labs, etc.): Molecular Pathology Results: Clinical Trial Availability: Options Discussed: pending PET read, likely neoadjuvant treatment. Recommendations: See ENT, Med Onc, and biopsy with clip DISCLAIMER: The patient was discussed and the tumor board made recommendations but it is ultimatelyup to the treatment provider(s) and the patient to determine the patient???s care. documented in this encounter Plan of Treatment Upcoming Encounters Date Type Department Care Team (Late st Contact Info) Description 12/20/2023 2:15 PM EDT Office Visit Dermatology at [facility] [address] [place] [address] Inderjit Vilchis MD [facility] DR GILB[place] [address] 12/22/2023 10:00 AM EDT Office [place] [address] Norm Joy PA [facility] [place] [address] 12/26/2023 11:45 AM EDT Appointment Hematology [place] [address] 12/26/2023 12:45 PM EDT Office Visit Hematology [place] [address] Jean-Pierre Peña MD [facility] [place] [address] Vicky Burnham APRN [facility] [place] [address] 12/26/2023 2:30 PM EDT Appointment Hematology [place] [address] 02/06/2024 10:00 AM EDT Appointment Hematology [place] [address] 02/06/2024 12:45 PM EDT Office Visit Hematology [place] [address] Jean-Pierre Peña MD [facility] [place] [address] Vicky Burnham APRN [facility] [place] [address] 02/06/2024 2:00 PM EDT Appointment Hematology [place] [phone] documented as of this encounter Visit Diagnoses Not on filedocumented in this encounter Care Teams Repairer Maintenance Building Relationship Specialty Start Date End Date Taylor Bryant, ZARA [address] [place] [address] PCP - General 03/31/10 documented as of this encounter
--- OUTSIDE RECORDS SUMMARY | 2023-12-05 02:28 | XMS_ITS | Encounter Summary ---
Author Organization [facility] Address [facility] [place] [address] Care Team Providers Care Metal Fabrication Supervisor Name Role Phone Taylor Bryant APRN Primary Care Provider +1 [phone] Reason for Visit * Reason Comments Advice Only Encounter Details Date Type Department Care Team ([facility] st Contact Info) Description 08/23/2023 10:00 AM EDT Clinical Support Hematology and Oncology at [facility] [place] [phone] Sukh Hilario, [facility] Malignant melanoma of scalp Social History Tobacco Use Types Packs/Day Years Used Date Smoking Tobacco: Former Smokeless Tobacco: Never Comments:quit at age 35 Alcohol Use Standard Drinks/Week Comments Yes 0 (1 standard drink = 0.6 oz pur e alcohol) social gatherings [facility] Utilities Answer Date Recorded In the [...] place to sleep or slept in a correction (including now)? 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 The plan is for pembrolizumab given every 21 days. The following information was reviewed with the patient and her family. Antitumor Therapy Schedule: Pembrolizumab 200 once every 3 weeks given intravenously over 30 minutes. Laboratory Tests: Check blood counts, kidney and liver function, thyroid function and electrolytes prior to each treatment. Provider Visits: Every 3 weeks with lab work prior to infusion therapy Possible Side Effects include, but are not limited to: Side effects are most likely to occur after 3-4 cycles of immunotherapy, though they can occur at any time. The most common potential side effects are fatigue, decreased appetite, itching, rash, nausea, and anemia (low red blood cell counts). Potential for more serious immune-mediated reaction can involve the lungs (pneumonitis), GI tract (colitis), liver (hepatitis) and kidney (nephritis), among others.Additionally endocrinopathies, or dysfunction of an endocrine gland, such as the thyroid gland or adrenal gland can occur. If the following symptoms occur, we ask that you call to report them immediately: Profound fatigue Rash and/or itching. Particularly if the rash is blistering, or located on the palms of the hands, soles of the feet, mouth or groin. Joint pain. Call especially if joint pain is interfering with your normal activities. Any change in breathing or new cough. 3 or more watery stools in 24 hrs, or blood in the stool. (Do not take Imodium) Severe or persistent headaches, vision changes or dizziness. Prompt treatment with high dose steroids may be required. Plan: Keeley Gutierrez was given written information regarding immunotherapy regimen, side effectsand management strategies. she was given an opportunity to ask questions and verbalized understanding of the information and treatment plan. No barriers to learning were identified. She was counseledon how to call for any further questions or concerns. Immunotherapy is scheduled to begin on 08/22/22 Supportive Care: Do not take antidiarrheal for diarrhea- patient must call to evaluate further 30 of this 60 minute face to face encounter was spent in counseling, education and coordination of care documented in this encounter Plan of Treatment Upcoming Encounters Date Type Department Care Team (Late st Contact Info) Description 12/20/2023 2:15 PM EDT Office Visit Dermatology at [address] [address] Inderjit Vilchis MD [facility] DR GILBERTO STERLING[place] [address] 12/22/2023 10:00 AM EDT Office [place] [address] Norm Joy PA [facility] [place] [address] 12/26/2023 11:45 AM EDT Appointment Hematology [place] [address] 12/26/2023 12:45 PM EDT Office Visit Hematology [place] [address] Jean-Pierre Peña MD [facility] HEMATOLOGY [place] [address] Vicky Burnham APRN [facility] [place] [address] 12/26/2023 2:30 PM EDT Appointment Hematology [place] [address] 02/06/2024 10:00 AM EDT Appointment Hematology [place] [address] 02/06/2024 12:45 PM EDT Office Visit Hematology and Oncology at [place] [phone] Jean-Pierre Peña MD [facility] DR HEMATOLOGY [place] [address] Vicky Burnham [employer] [facility] DR [place] [address] 02/06/2024 2:00 PM EDT Appointment Hematology and Oncology at [place] [phone] documented as of this encounter Visit Diagnoses Diagnosis Malignant melanoma of scalp Malignant melanoma of skin of scalp and neck documented in this encounter Care Teams Metal Fabrication Supervisor Relationship Specialty Start Date End Date Taylor Bryant APRN [address] [place] [id number] PCP - General 03/31/10 documented as of this encounter
--- OUTSIDE RECORDS SUMMARY | 2023-12-05 02:28 | XMS_ITS | Encounter Summary ---
Author Organization [facility] Address [facility] [place] [address] Care Team Providers Care Sales Consulting Director Name Role Phone Taylor Bryant APRN Primary Care Provider [phone] [phone] Encounter Details Date Type Department Care Team (Latest Contact Info) Description 07/19/2023 Travel Social History Tobacco Use Types Packs/Day [...] 2:15 PM EDT Office Visit Dermatology at [place] [address] [place] [address] Inderjit Vilchis MD [facility] DR GILBERTO [place] [address] 12/22/2023 10:00 AM EDT Office [place] [address] Norm Joy PA [facility] [place] [address] 12/26/2023 11:45 AM EDT Appointment Hematology [place] [address] 12/26/2023 12:45 PM EDT Office Visit [place]ematology [place] [address] Jean-Pierre Peña MD [facility] DR HEMATOLOGY [place] [address] Vicky Burnham APRN [facility] [place] [address] 12/26/2023 2:30 PM EDT Appointment Hematology and Oncology at [place] [address] 02/06/2024 10:00 AM EDT Appointment Hematology and Oncology at [place] [phone] 02/06/2024 12:45 PM EDT Office Visit Hematology and Oncology at [place] [address] Jean-Pierre Peña MD [facility] DR HEMATOLOGY [place] [address] Vicky Burnham [facility] [place] [address] 02/06/2024 2:00 PM EDT Appointment Hematology and Oncology at [place] [phone] documented as of this encounter Visit Diagnoses Not on filedocumented in this encounter Care Teams Sales Consulting Director Relationship Specialty Start Date End Date Taylor Bryant APRN [address] [place] [address] PCP - General 03/31/10 documented as of this encounter
--- OUTSIDE RECORDS SUMMARY | 2023-12-05 02:28 | XMS_ITS | Encounter Summary ---
Author Organization [facility] Address [facility] [place] [address] Care Team Providers Care System Safety Manager Name Role Phone Taylor Bryant APRN Primary Care Provider [phone] [phone] Reason for Visit * Reason Comments Follow-up Encounter Details Date Type Department Care Team ([facility] st Contact Info) Description 08/23/2023 9:30 AM EDT Office Visit [place]ematology [place] [address] Jean-Pierre Peña MD [facility] [address] [place] [address] Malignant melanoma of scalp (Primary Dx); Medication management; Immunotherapy; Secondary malignancy of soft tissue Social History Tobacco Use Types Packs/Day Years Used Date Smoking Tobacco: Former Smokeless Tobacco: Never Comments:quit at age 35 Alcohol Use Standard Drinks/Week Comments Yes 0 (1 standard drink = 0.6 oz pur e alcohol) social gatherings [facility] Utilities Answer Date Recorded In the past 12 months has [employer], gas, oil, or water [employer] threatened to shut off services in your [...] Sign Reading Time Taken Comments Blood Pressure 120/81 08/23/2023 9:20 AM EDT Pulse 78 08/23/2023 9:20 AM EDT Temperature 36.4 ??C (97.5 ??F) 08/23/2023 9:20 AM ED T Respiratory Rate 18 08/23/2023 9:20 AM EDT Oxygen Saturation 97% 08/23/2023 9:20 AM EDT Inhaled Oxygen Concentration - - Weight 71.3 kg (157 lb 3 oz) 08/23/2023 9:20 AM EDT Height 160 cm (5' 3) 08/23/2023 9:20 AM EDT Body Mass Index 27.84 08/23/2023 9:20 AM EDT documented in this encounter Progress Notes * Jean-Pierre Peña MD - 08/23/2023 9:30 AM EDT Images from the original note were not included. [facility] NOTE REFERING PHYSICIAN: DIAGNOSIS: Right occipital scalp melanoma PATH: Malignant melanoma At least T2a 1.5 mm depth with positive margin 6 mitosis BRAF V600K/R variant. CURRENT TX: Cycle #1 pembrolizumab on 08/23/2023 s/p right [...] primary tumor Cycle #1 pembrolizumab on 08/23/2023 History of psoriatic arthritis over 20 years [...] INTERVAL HISTORY: The patient is here to discuss neck node biopsy result and treatment plan. Although neck node biopsy was positive, since her last visit she has noticed increasing satellite lesions on her scalp. Otherwise she denies any significant limitation in her daily activity. No palpable neck nodes Unchanged occasional headache REVIEW OF SYSTEMS: Constitutional: No recent [...] distress. in good mood and spirits BP 120/81 (Patient Position: Sitting) Pulse 78 Temp 36.4 ??C (97.5 ??F) (Temporal) Resp 18 Ht 160 cm (5' 3) Wt 71.3 kg (157 lb 3 oz) SpO2 97% BMI 27.84 kg/m?? Eyes: Not icteric, not injected Oral: Not examined Neck: Supple. No obvious palpable lymphadenopathy. Lungs: Bilaterally clear to auscultation, No wheezing, No crackles Heart: Regular rate and rhythm. Abdomen: Soft, no tenderness, no mass, normal active bowel sounds. Extremities: No edema. Skin: No obvious rash Pigmented scalp lesion with several erythematous nodules 2 cm in diameter Increasing satellite/subcutaneous lesions comparing to last visit Neuro: No focal weakness LABS: Unremarkable [...] variant. Cycle #1 neoadjuvant pembrolizumab on 08/23/2023 Although right neck node biopsy was negative for melanoma, since her last visit satellite lesions show increasing size and depth. After discussion with Dr. Preciado while waiting for surgery, we decided to start neoadjuvant pembrolizumab. The side effect profile was reviewed with her. I will have her come back on 09/12/2023 for cycle #2 pembrolizumab. Her surgery is scheduled on 09/16/2023. Pt was instructed to call our clinic with any new symptom or any questions. Jean-Pierre Peña MD RTC on 09/11 and 10/02 with labs and pembrolizumab Surgery on 09/16/[address] Preciado * Jessica Delgado RN - 08/23/2023 9:30 AM EDT Oral Chemotherapy Check Note 08/23/2023 Keeley Gutierrez, 1965 Prescriptions for oral chemotherapy were reviewed as follows: Oral Chemotherapy Order trametinib (Mekinist): Order details: Dose: 2 mg Route: by mouth Quantity to be dispensed #: 30 tablets Number of refills:11 Instructions: Take 1 tablet (2 mg) by mouth daily on an empty stomach at least 1 hour prior to mealor 2 hours after meal. Start date: Per Dr. Peña: Her surgery will be on 09/15. Most likely I will start this 2-3 weeks after surgery. Oral Chemotherapy Order dabrafenib (Tafinlar): Order details: Dose: 150 mg Route: By mouth Quantity to be dispensed #: 120 capsules Number of refills:11 Instructions:Take 2-75 mg capsules (150 mg) by mouth twice daily approximately 12 hrs apart. Take on an empty stomach at least 1 hour prior to meal or 2 hours after meal. Start date: Per Dr. Peña: Her surgery will be on 09/15. Most likely I will start this 2-3 weeks after surgery. . The prescription was found To be complete and accurate. It was e-prescribed to [facility] pharmacy. documented in this encounter Plan of Treatment Upcoming Encounters Date Type Department Care Team (Late st Contact Info) Description 12/20/2023 2:15 PM EDT Office Visit Dermatology at [address] [place] [address] Inderjit Vilchis MD [facility] DR GILBERT[place] [address] 12/22/2023 10:00 AM EDT Office [place] [address] Norm Joy PA [facility] [place] [place] [address] 12/26/2023 11:45 AM EDT Appointment Hematology [place] [address] 12/26/2023 12:45 PM EDT Office Visit Hematology [place] [address] Jean-Pierre Peña MD [facility] [address] [place] [address] Vicky Burnham APRN [facility] [place] [address] 12/26/2023 2:30 PM EDT Appointment Hematology [place] [address] 02/06/2024 10:00 AM EDT Appointment Hematology [place] [address] 02/06/2024 12:45 PM EDT Office Visit Hematology [place] [address] Jean-Pierre Peña MD [facility] [place] [address] Vicky Burnham APRN [facility] [place] [place] [address] 02/06/2024 2:00 PM EDT Appointment Hematology [place] [address] documented as of this encounter Visit Diagnoses Diagnosis Malignant melanoma of scalp- Primary Malignant melanoma of skin of scalp and neck Medication management Encounter for long-term (current) use of other medications Immunotherapy Reserved for inherently not codable concepts WITHOUT codable children Secondary malignancy of soft tissue documented in this encounter Care Teams System Safety Manager Relationship Specialty Start Date End Date Taylor Bryant APRN [address] [place] [address] PCP - General 03/31/10 documented as of this encounter
--- OUTSIDE RECORDS SUMMARY | 2023-12-05 02:28 | XMS_ITS | Encounter Summary ---
Author Organization [facility] Address [facility] [place] [address] Care Team Providers Care Explosion Welder Name Role Phone Taylor Bryant APRN Primary Care Provider [phone] -[phone] Encounter Details Date Type Department Care Team (Latest Contact Info) Description 07/08/2023 Travel Social History Tobacco Use Types Packs/Day [...] 2:15 PM EDT Office Visit Dermatology at [place] [address] [place] [address] Inderjit Vilchis MD [facility] DR GILBERTO [place] [address] 12/22/2023 10:00 AM EDT Office Visit [place] [address] Norm Joy PA [facility] [place] [address] 12/26/2023 11:45 AM EDT Appointment Hematology [place] [address] 12/26/2023 12:45 PM EDT Office Visit Hematology [place] [address] Jean-Pierre Peña MD [facility] DR [place] [address] Vicky Burnham APRN [facility] [place] [address] 12/26/2023 2:30 PM EDT Appointment Hematology and Oncology at [place] [address] 02/06/2024 10:00 AM EDT Appointment Hematology and Oncology at [place] [phone] 02/06/2024 12:45 PM EDT Office Visit Hematology and Oncology at [place] [address] Jean-Pierre Peña MD [facility] DR [place] [address] Vicky Burnham [facility] [place] [address] 02/06/2024 2:00 PM EDT Appointment Hematology and Oncology at [place] [phone] documented as of this encounter Visit Diagnoses Not on filedocumented in this encounter Care Teams Explosion Welder Relationship Specialty Start Date End Date Taylor Bryant APRN [address] [place] [address] PCP - General 03/31/10 documented as of this encounter
--- OUTSIDE RECORDS SUMMARY | 2023-12-05 02:28 | XMS_ITS | Encounter Summary ---
Author Organization [facility] Address [facility] [place] [address] Care Team Providers Care Web Database Developer Name Role Phone Taylor Bryant APRN Primary Care Provider [phone] [phone] Encounter Details Date Type Department Care Team (Latest Contact Info) Description 07/25/2023 Travel Social History Tobacco Use Types Packs/Day Years Used Date Smoking Tobacco: Former Smokeless Tobacco: Never Comments:quit at age 35 Alcohol Use Standard Drinks/Week Comments Yes 0 (1 standard drink = 0.6 oz pur e alcohol) social gatherings [facility] Utilities Answer Date Recorded In [...] in a custodial (including now)? No 07/24/2023 Sex and Gender Information Value Date Recorded Sex Assigned at Not on file Gender Identity Not on file Sexual Orientation Not on file documented as of this encounter Plan of Treatment Upcoming Encounters Date Type Department Care Team (Late st Contact Info) Description 12/20/2023 2:15 PM EDT Office Visit Dermatology at [facility] [address] [place] [address] Inderjit Vilchis MD [facility] DR GILBERTO [place] [address] 12/22/2023 10:00 AM EDT Office [place] [address] Norm Joy PA [facility] [place] [address] 12/26/2023 11:45 AM EDT Appointment Hematology [place] [address] 12/26/2023 12:45 PM EDT Office Visit Hematology [place] [address] Jean-Pierre Peña MD [facility] DR [place] [address] Vicky Burnham APRN [facility] [place] [address] 12/26/2023 2:30 PM EDT Appointment Hematology [place] [address] 02/06/2024 10:00 AM EDT Appointment Hematology [place] [address] 02/06/2024 12:45 PM EDT Office Visit Hematology [place] [address] Jean-Pierre Peña MD [facility] DR [place] [address] Vicky Burnham APRN [facility] [place] [address] 02/06/2024 2:00 PM EDT Appointment Hematology [place] [address] documented as of this encounter Visit Diagnoses Not on filedocumented in this encounter Care Teams Web Database Developer Relationship Specialty Start Date End Date Taylor Bryant, AWNING ERECTOR [address] [place] [address] PCP - General 03/31/10 documented as of this encounter
--- OUTSIDE RECORDS SUMMARY | 2023-12-05 02:28 | XMS_ITS | Encounter Summary ---
Author Organization [facility] Address [facility] [place] [address] Care Team Providers Care Hooker On Name Role Phone Taylor Bryant APRN Primary Care Provider [phone] [phone] Encounter Details Date Type Department Care Team (Latest Contact Info) Description 08/21/2023 Travel Social History Tobacco Use Types Packs/Day Years Used Date Smoking Tobacco: Former Smokeless Tobacco: Never Comments:quit at age 35 Alcohol Use Standard Drinks/Week Comments Yes 0 (1 standard drink = 0.6 oz pur e alcohol) social gatherings [facility] Utilities Answer Date Recorded In the [...] 2:15 PM EDT Office Visit Dermatology at [facility] [address] [place] [address] Inderjit Vilchis MD [facility] DR GILBERTO [place] [address] 12/22/2023 10:00 AM EDT Office [place] [address] Norm Joy PA [facility] [place] [place] [address] 12/26/2023 11:45 AM EDT Appointment Hematology [place] [address] 12/26/2023 12:45 PM EDT Office Visit Hematology [place] [address] Jean-Pierre Peña MD [facility] DR [place] [address] Vicky Burnham APRN [facility] [place] [address] 12/26/2023 2:30 PM EDT Appointment Hematology [place] [address] 02/06/2024 10:00 AM EDT Appointment Hematology [place] [address] 02/06/2024 12:45 PM EDT Office Visit Hematology [place] [address] Jean-Pierre Peña MD [facility] DR [place] [address] Vicky Burnham APRN [facility] [place] [address] 02/06/2024 2:00 PM EDT Appointment Hematology [place] [address] documented as of this encounter Visit Diagnoses Not on filedocumented in this encounter Care Teams Hooker On Relationship Specialty Start Date End Date Taylor Bryant, MUSIC COORDINATOR [address] [place] [address] PCP - General 03/31/10 documented as of this encounter
--- OUTSIDE RECORDS SUMMARY | 2023-12-05 02:28 | XMS_ITS | Encounter Summary ---
Author Organization [facility] Address [facility] [place] [address] Care Team Providers Care Electronic Game Developer Name Role Phone Taylor Bryant APRN Primary Care Provider [phone] [phone] Encounter Details Date Type Department Care Team ([facility] st Contact Info) Description 08/22/2023 Telephone Otolaryngology at [facility] [place] [phone] Jeannie Dale Social History Tobacco Use Types Packs/Day Years [...] encounter Miscellaneous Notes * Telephone Encounter - Jeannie Dale - 08/22/2023 9:33 AM EDT Lance, Patient is scheduled to have surgery on 09/16/2023 & 09/28/2023 . Follow up appointment is as follows: Follow-up visit: ~10days post op DM/BG. After 09/27 surgery. Pt is aware of the scan and time to be here on 09/15 Thank you!! documented in this encounter Plan of Treatment Upcoming Encounters Date Type Department Care Team (Late st Contact Info) Description 12/20/2023 2:15 PM EDT Office Visit Dermatology at [address] [address] Inderjit Vilchis MD [facility] DR GILBERT[place] [address] 12/22/2023 10:00 AM EDT Office Visit [place] [address] Norm Joy PA [facility] [place] [address] 12/26/2023 11:45 AM EDT Appointment Hematology [place] [address] 12/26/2023 12:45 PM EDT Office Visit Hematology [place] [address] Jean-Pierre Peña MD [facility] [place] [address] Vicky Burnham APRN [facility] [place] [address] 12/26/2023 2:30 PM EDT Appointment Hematology and Oncology at [place] [address] 02/06/2024 10:00 AM EDT Appointment Hematology [place] [address] 02/06/2024 12:45 PM EDT Office Visit Hematology [place] [address] Jean-Pierre Peña MD [facility] [address] [place] [address] Vicky Burnham PERIPHERAL EQUIPMENT OPERATOR [facility] [place] [address] 02/06/2024 2:00 PM EDT Appointment Hematology [place] [address] documented as of this encounter Visit Diagnoses Not on filedocumented in this encounter Care Teams Electronic Game Developer Relationship Specialty Start Date End Date Taylor Bryant APRN [address] [place] [address] PCP - General 03/31/10 documented as of this encounter
--- OUTSIDE RECORDS SUMMARY | 2023-12-05 02:28 | XMS_ITS | Encounter Summary ---
Author Organization [facility] Address [facility] [place] [address] Care Team Providers Care Outside Machinist Name Role Phone Taylor Bryant APRN Primary Care Provider +1 [phone] Encounter Details Date Type Department Care Team (Latest Contact Info) Description 07/25/2023 11:19 AM EDT - 07/25/2023 11:59 PM EDT Hospital Encounter Hematology and Oncology at [facility] [place] [id number] Medication management; Malignant melanoma of scalp Discharge Disposition: Home Social History Tobacco Use Types Packs/Day Years Used Date Smoking Tobacco: Former Smokeless Tobacco: Never Comments:quit at age 35 Alcohol Use Standard Drinks/Week Comments Yes 0 (1 standard drink = 0.6 oz pur e alcohol) social gatherings [facility] Utilities Answer Date Recorded In [...] a group home (including now)? No 07/24/2023 Sex and [...] 2:15 PM EDT Office Visit Dermatology at [facility] [address] [place] [address] Inderjit Vilchis MD [facility] DR GILBERTO [place] [address] 12/22/2023 10:00 AM EDT Office Visit [place] [address] Norm Joy PA [facility] [place] [address] 12/26/2023 11:45 AM EDT Appointment Hematology and Oncology at [place] [address] 12/26/2023 12:45 PM EDT Office Visit Hematology and Oncology at [place] [address] Jean-Pierre Peña MD [facility] [address] [place] [address] Vicky Burnham APRN [facility] [place] [address] 12/26/2023 2:30 PM EDT Appointment Hematology and Oncology at [place] [address] 02/06/2024 10:00 AM EDT Appointment Hematology and Oncology at [place] [phone] 02/06/2024 12:45 PM EDT Office Visit Hematology and Oncology at [place] [address] Jean-Pierre Peña MD [facility] [address] [place] [address] Vicky Burnham MOTOR COACH BUS DRIVER [facility] [place] [address] 02/06/2024 2:00 PM EDT Appointment Hematology and Oncology at [place] [address] documented as of this encounter Procedures Procedure Name Priority Date/Time Associated Diagnosis Comments HEMOGRAM STAT 07/25/2023 11:32 AM EDT Malignant melanoma of scalp DIFFERENTIAL, AUTOMATED STAT 07/25/2023 11:32 AM EDT Malignant melanoma of scalp HC CBC,PLT & AUTO DIFF STAT 11:32 AM EDT Malignant melanoma of scalp HC VENIPUNCTURE STAT 07/25/2023 11:32 AM EDT Medication management HC FREE THYROXINE (T4) STAT 11:32 AM EDT Medication management HC LACTIC DEHYDROGENASE STAT 07/25/2023 11:32 AM EDT Malignant melanoma of scalp COMPREHENSIVE METABOLIC PANEL (NON-FASTING) STAT 07/25/2023 11:32 AM EDT Malignant melanoma of scalp documented in this encounter Results * Differential, Automated (07/25/2023 11:32 AM EDT) Neutrophils % 56.8 % [facility] Neutr Abs (ANC) 3.72 1.70 - 6.10 x10(3)/[facility] Lymphocytes % 31.7 % [facility] Lymphocytes Abs 2.1 0.9 - 3.2 x10(3)/[facility] Monocytes % 7.8 % [facility] Monocyte Abs 0.5 0.3 - 0.9 x10(3)/[facility] Eosinophils % 2.6 % [facility] Eosinophils Abs 0.2 0.0 - 0.4 x10(3)/[facility] Basophils % 0.8 % [facility] Basophils Abs 0.0 0.0 - 0.1 x10(3)/[facility] Immature Gran % 0.30 % [facility] Comment: Immature granulocytes(IG's)percentage and absolute count will include metamyelocytes, myelocytes, and promyelocytes. Blood smears from CBCs yielding IG's will be scanned manually for concordance. If this scan disagrees with the automated IG or if promyelocytes are noted, a manual differential will be performed. Funmi Gran Abs 0.02 0.00 - 0.04 x10(3)/[facility] Blood 07/25/2023 11:3 2 AM EDT 07/25/2023 11:44 AM EDT Narrative Resulting Agency Comment Spec In Lab Carlos Dominguez MD HEMATOLOGY ORDERABLE S [facility] [place] [address] * (ABNORMAL) Hemogram (07/25/2023 11:32 AM EDT) WBC 6.5 4.0 - 9.5 x10(3)/[facility] RBC 4.23 4.00 - 5.21 x10(6)/[facility] Hemoglobin 13.0 11.7 - 15.5 g/dL [facility] Hematocrit 39.1 35.7 - 45.8 % [facility] MCV 92.4 82.6 - 94.4 fL [facility] MCH 30.7 27.1 - 32.0 pg [facility] MCHC 33.2 31.7 - 35.0 g/dL [facility] Platelets 362(H) 145 - 357 x10(3)/[facility] RDWSD 46.7(H) 37.0 - 46.0 fL [facility] RDWCV 13.8 11.5 - 14.1 % [facility] MPV 11.2 7.6 - 12.9 fL [facility] nRBC % Auto 0.0 % [facility] nRBC Abs Auto 0.000 0.000 - 0.000 x10(3)/[facility] Blood 07/25/2023 11:3 2 AM EDT 07/25/2023 11:44 AM EDT Narrative Resulting Agency Comment Spec In Lab Carlos Dominguez MD HEMATOLOGY ORDERABLE S [facility] [place] [address] * Comprehensive metabolic panel (non-fasting) (07/25/2023 11:32 AM EDT) Glucose Lvl 102 65 - 199 mg/dL [facility] Comment:Diabetes: >=200 mg/d L plus symptoms BUN 16 8 - 18 mg/dL [facility] Creatinine 0.97 0.70 - 1.20 mg/dL [facility] Sodium 139 135 - 145 mmol/L [facility] Potassium 4.6 3.5 - 5.0 mmol/L [facility] Comment: Please note: ??Patients with WBC >100,000 may have falsely elevated Potassium levels. ??For accurate Potassium quantification in these patients send serum separator tube (gold top) for subsequent determinations. ??Contact the Clinical Chemistry Laboratory if there are any questions. Chloride 104 98 - 107 mmol/L [facility] CO2 27 22 - 31 mmol/L [facility] Anion Gap 8 5 - 15 mmol/L [facility] Calcium 9.5 8.5 - 10.5 mg/dL [facility] Total Protein 6.7 6.1 - 8.0 g/dL [facility] Albumin 4.5 3.2 - 5.2 g/dL [facility] AST 13 0 - 30 unit/L [facility] ALT 12 0 - 30 unit/L [facility] Alk Phos 66 35 - 105 unit/L [facility] Total Bilirubin 0.5 0.2 - 1.3 mg/dL [facility] Estimated GFR 68 >=60 mL/min/1. 73 m?? [facility] Comment: This patient's estimated [...] and symptoms in addition to eGFR. Blood 07/25/2023 11:3 2 AM EDT 07/25/2023 11:44 AM EDT Narrative Resulting Agency Comment Spec In Lab Carlos Dominguez MD CHEMISTRY ORDERABLES [facility] [place] [address] * Lactate Dehydrogenase (07/25/2023 11:32 AM EDT) LDH 172 110 - 220 unit/L [facility] Blood 07/25/2023 11:3 2 AM EDT 07/25/2023 11:44 AM EDT Narrative Resulting Agency Comment Spec In Lab Carlos Dominguez MD CHEMISTRY ORDERABLES Performing Organization Address [facility]/ZIP Co de Phone Number [facility] [place] [address] * T4, free (07/25/2023 11:32 AM EDT) Free T4 1.30 0.93 - 1.70 ng/dL [facility] Comment: Reference Interval (ng/dL): Females: ??First Trimester: 0.97-1.68 ??Second Trimester: 0.77-1.51 ??Third Trimester: 0.77-1.49 Blood 07/25/2023 11:3 2 AM EDT 07/25/2023 11:44 AM EDT Narrative Resulting Agency Comment Spec In Lab Carlos Dominguez MD CHEMISTRY ORDERABLES Performing Organization Address City/[facility]/ZIP Co de Phone Number [facility] [place] [address] * TSH (07/25/2023 11:32 AM EDT) TSH 0.87 0.27 - 4.20 mcIU/mL [facility] Comment: Reference Interval (mcIU/mL): Females: ??First Trimester: 0.23-3.88 ??Second Trimester: 0.22-3.90 ??Third Trimester: 0.44-4.66 Blood 07/25/2023 11:3 2 AM EDT 07/25/2023 11:44 AM EDT Narrative Resulting Agency Comment Spec In Lab Carlos Dominguez MD CHEMISTRY ORDERABLES [facility] [place] [address] documented in this encounter Visit Diagnoses Diagnosis Medication management Encounter for long-term (current) use of other medications Malignant melanoma of scalp Malignant melanoma of skin of scalp and neck documented in this encounter Care Teams Outside Machinist Relationship Specialty Start Date End Date Taylor Bryant APRN [address] [place] [address] PCP - General 03/31/10 documented as of this encounter
--- OUTSIDE RECORDS SUMMARY | 2023-12-05 02:28 | XMS_ITS | Encounter Summary ---
Author Organization [facility] Address [facility] [place] [address] Care Team Providers Care Project Management Engineer Name Role Phone Taylor Bryant APRN Primary Care Provider [phone] [phone] Encounter Details Date Type Department Care Team (Latest Contact Info) Description 08/05/2023 Travel Social History Tobacco Use Types Packs/Day Years Used Date Smoking Tobacco: Former Smokeless Tobacco: Never Comments:quit at age 35 Alcohol Use Standard Drinks/Week Comments Yes 0 (1 standard drink = 0.6 oz pur e alcohol) social gatherings [facility] Utilities Answer Date Recorded In the [...] place to sleep or slept in a skilled nursing (including now)? No 07/24/2023 Sex and Gender Information Value Date Recorded Sex Assigned at Not on file Gender Identity Not on file Sexual Orientation Not on file documented as of this encounter Plan of Treatment Upcoming Encounters Date Type Department Care Team (Late st Contact Info) Description 12/20/2023 2:15 PM EDT Office Visit Dermatology at [facility] [address] [place] [address] Inderjit Vilchis MD [facility] DR GILBERTO [place] [address] 12/22/2023 10:00 AM EDT Office [place] [address] Norm Joy PA [facility] [place] [place] [address] 12/26/2023 11:45 AM EDT Appointment Hematology [place] [address] 12/26/2023 12:45 PM EDT Office Visit Hematology [place] [address] Jean-Pierre Peña MD [facility] [address] [place] [address] Vicky Burnham APRN [facility] [place] [place] [address] 12/26/2023 2:30 PM EDT Appointment Hematology [place] [address] 02/06/2024 10:00 AM EDT Appointment Hematology [place] [address] 02/06/2024 12:45 PM EDT Office Visit Hematology [place] [address] Jean-Pierre Peña MD [facility] [address] [place] [address] Vicky Burnham APRN [facility] [place] [place] [address] 02/06/2024 2:00 PM EDT Appointment Hematology [place] [address] documented as of this encounter Visit Diagnoses Not on filedocumented in this encounter Care Teams Project Management Engineer Relationship Specialty Start Date End Date Taylor Bryant, EDUCATIONAL AUDIOLOGIST [address] [place] [address] PCP - General 03/31/10 documented as of this encounter
--- OUTSIDE RECORDS SUMMARY | 2023-12-05 02:28 | XMS_ITS | Encounter Summary ---
Author Organization [facility] Address [facility] [place] [address] Care Team Providers Care Employment Instructional Associate Name Role Phone Taylor Bryant APRN Primary Care Provider [phone] [phone] Encounter Details Date Type Department Care Team (Latest Contact Info) Description 08/09/2023 Travel Social History Tobacco Use Types Packs/Day Years Used Date Smoking Tobacco: Former Smokeless Tobacco: Never Comments:quit at age 35 Alcohol Use Standard Drinks/Week Comments Yes 0 (1 standard drink = 0.6 oz pur e alcohol) social gatherings [facility] Utilities Answer Date Recorded In the [...] in a usp (including now)? No 07/24/2023 Sex and Gender Information Value Date Recorded Sex Assigned at Not on file Gender Identity Not on file Sexual Orientation Not on file documented as of this encounter Plan of Treatment Upcoming Encounters Date Type Department Care Team (Late st Contact Info) Description 12/20/2023 2:15 PM EDT Office Visit Dermatology at [facility] [address] [place] [address] Inderjit Vilchis MD [facility] DR GILBERT[place] [address] 12/22/2023 10:00 AM EDT Office [place] [address] Norm Joy PA [facility] [place] [address] 12/26/2023 11:45 AM EDT Appointment Hematology [place] [address] 12/26/2023 12:45 PM EDT Office Visit Hematology [place] [address] Jean-Pierre Peña MD [facility] [place] [address] Vicky Burnham APRN [facility] [place] [address] 12/26/2023 2:30 PM EDT Appointment Hematology [place] [address] 02/06/2024 10:00 AM EDT Appointment Hematology [place] [address] 02/06/2024 12:45 PM EDT Office Visit Hematology [place] [address] Jean-Pierre Peña MD [facility] [place] [address] Vicky Burnham APRN [facility] [place] [place] [address] 02/06/2024 2:00 PM EDT Appointment Hematology [place] [address] documented as of this encounter Visit Diagnoses Not on filedocumented in this encounter Care Teams Employment Instructional Associate Relationship Specialty Start Date End Date Taylor Bryant, FILTER PRESS PUMPER [address] [place] [address] PCP - General 03/31/10 documented as of this encounter
--- OUTSIDE RECORDS SUMMARY | 2023-12-05 02:28 | XMS_ITS | Encounter Summary ---
Author Organization [facility] [place] [address] Care Team Providers Care Sports Therapist Name Role Phone Taylor Bryant ZARA Primary Care Provider [phone] [phone] Encounter Details Date Type Department Care Team (Late Contact Info) Description 07/15/2023 Orders Only Hematology [place] [phone] Neida Luong APRN [facility] DR [place] [address] Malignant melanoma of scalp; Medication management Social History Tobacco Use Types [...] Encounters Date Type Department Care Team (Late Contact Info) Description 12/20/2023 2:15 PM EDT Office Visit Dermatology at [address] [place] [address] Inderjit Vilchis MD [facility] DR GILBERTO [place] [address] 12/22/2023 10:00 AM EDT Office Visit [place] [address] Norm Joy PA [facility] [place] [address] 12/26/2023 11:45 AM EDT Appointment Hematology and Oncology at [place] [address] 12/26/2023 12:45 PM EDT Office Visit Hematology and Oncology at [place] [address] Jean-Pierre Peña MD [facility] DR [place] [address] Vicky Burnham APRN [facility] [place] [address] 12/26/2023 2:30 PM EDT Appointment Hematology and Oncology at [place] [address] 02/06/2024 10:00 AM EDT Appointment Hematology and Oncology at [place] [address] 02/06/2024 12:45 PM EDT Office Visit Hematology and Oncology at [address] Jean-Pierre Peña MD [facility] DR [place]AT[place] [address] Vicky Burnham APRN [facility] [address] 02/06/2024 2:00 PM EDT Appointment Hematology and Oncology at [address] Scheduled Orders Name Type Priority Associated Diagnoses Orde r Schedule Specimen to Pathology Additional Testing Pathology/Cytol ogy STAT Malignant melanoma of scalp Ordered: 07/15/2023 documented as of this encounter Results * TSH (07/25/2023 11:32 AM EDT) TSH 0.87 0.27 - 4.20 mcIU/mL [facility] Comment: Reference Interval (mcIU/mL): Females: ??First Trimester: 0.23-3.88 ??Second Trimester: 0.22-3.90 ??Third Trimester: 0.44-4.66 Blood 07/25/2023 11:3 2 AM EDT 07/25/2023 11:44 AM EDT Narrative Resulting Agency Comment Spec In Lab Carlos Dominguez MD CHEMISTRY ORDERABLES Performing Organization Address [facility] Co de Phone Number [facility] [place] [address] * T4, free (07/25/2023 11:32 AM EDT) Free T4 1.30 0.93 - 1.70 ng/dL [facility] Comment: Reference Interval (ng/dL): Females: ??First Trimester: 0.97-1.68 ??Second Trimester: 0.77-1.51 ??Third Trimester: 0.77-1.49 Blood 07/25/2023 11:3 2 AM EDT 07/25/2023 11:44 AM EDT Narrative Resulting Agency Comment Spec In Lab Carlos Dominguez MD CHEMISTRY ORDERABLES Performing Organization Address City/[facility]/ZIP Co de Phone Number [facility] [place] [address] * Lactate Dehydrogenase (07/25/2023 11:32 AM EDT) LDH 172 110 - 220 unit/L [facility] Blood 07/25/2023 11:3 2 AM EDT 07/25/2023 11:44 AM EDT Narrative Resulting Agency Comment Spec In Lab Carlos Dominguez MD CHEMISTRY ORDERABLES Performing Organization Address City/[facility] Co de Phone Number [facility] [place] [address] * Comprehensive metabolic panel (non-fasting) (07/25/2023 11:32 AM EDT) Glucose Lvl 102 65 - 199 mg/dL [facility] Comment:Diabetes: >=200 mg/d L plus symptoms BUN 16 8 - 18 mg/dL [facility] Creatinine 0.97 0.70 - 1.20 mg/dL [facility] Sodium 139 135 - 145 mmol/L [facility] Potassium 4.6 3.5 - 5.0 mmol/L [facility] Comment: Please note: ??Patients with WBC >100,000 may have falsely elevated Potassium levels. ??For accurate Potassium quantification in these patients send serum separator tube (gold top) for subsequent determinations. ??Contact the Clinical Chemistry Laboratory if there are any questions. Chloride 104 98 - 107 mmol/L [facility] CO2 27 22 - 31 mmol/L [facility] Anion Gap 8 5 - 15 mmol/L [facility] Calcium 9.5 8.5 - 10.5 mg/dL [facility] Total Protein 6.7 6.1 - 8.0 g/dL [facility] Albumin 4.5 3.2 - 5.2 g/dL [facility] AST 13 0 - 30 unit/L [facility] ALT 12 0 - 30 unit/L [facility] Alk Phos 66 35 - 105 unit/L [facility] Total Bilirubin 0.5 0.2 - 1.3 mg/dL [facility] Estimated GFR 68 >=60 mL/min/1. 73 m?? 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
--- OUTSIDE RECORDS SUMMARY | 2023-12-05 02:28 | XMS_ITS | Encounter Summary ---
Author Organization [facility] Address [facility] [place] [address] Care Team Providers Care Hydraulic Dredge Operator Name Role Phone Taylor Bryant APRN Primary Care Provider [phone] Encounter Details Date Type Department Care Team (Latest Contact Info) Description 08/11/2023 Travel Social History Tobacco Use Types Packs/Day Years Used Date Smoking Tobacco: Former Smokeless Tobacco: Never Comments:quit at age 35 Alcohol Use Standard Drinks/Week Comments Yes 0 (1 standard drink = 0.6 oz pur e alcohol) social gatherings [facility] Utilities Answer Date Recorded In the [...] 2:15 PM EDT Office Visit Dermatology at [facility] [address] [place] [address] Inderjit Vilchis MD [facility] DR GILBERTO STERLING[place] [address] 12/22/2023 10:00 AM EDT Office [place] [address] Norm Joy PA [facility] [place] [address] 12/26/2023 11:45 AM EDT Appointment Hematology [place] [address] 12/26/2023 12:45 PM EDT Office Visit Hematology [place] [address] Jean-Pierre Peña MD [facility] DR HEMATOLOGY [place] [address] Vicky Burnham APRN [facility] [place] [address] 12/26/2023 2:30 PM EDT Appointment Hematology [place] [address] 02/06/2024 10:00 AM EDT Appointment Hematology [place] [address] 02/06/2024 12:45 PM EDT Office Visit Hematology [place] [address] Jean-Pierre Peña MD [facility] DR HEMATOLOGY [place] [address] Vicky Burnham APRN [facility] [place] [address] 02/06/2024 2:00 PM EDT Appointment Hematology [place] [address] documented as of this encounter Visit Diagnoses Not on filedocumented in this encounter Care Teams Hydraulic Dredge Operator Relationship Specialty Start Date End Date Taylor Bryant, PNEUMATIC TUBE REPAIRER [address] [place] [address] PCP - General 03/31/10 documented as of this encounter
--- OUTSIDE RECORDS SUMMARY | 2023-12-05 02:28 | XMS_ITS | Encounter Summary ---
Author Organization [facility] Address [facility] [place] [address] Care Team Providers Care Screen Tender Helper Name Role Phone Taylor Bryant APRN Primary Care Provider +1 [phone] Encounter Details Date Type Department Care Team (Latest Contact Info) Description 08/01/2023 Travel Social History Tobacco Use Types Packs/Day [...] health care facility (including now)? No 07/24/2023 Sex and Gender Information Value Date Recorded Sex Assigned at Not on file Gender Identity Not on file Sexual Orientation Not on file documented as of this encounter Plan of Treatment Upcoming Encounters Date Type Department Care Team (Late st Contact Info) Description 12/20/2023 2:15 PM EDT Office Visit Dermatology at [facility] [address] [place] [address] Inderjit Vilchis MD [facility] [address] GILBERTO [place] [address] 12/22/2023 10:00 AM EDT Office Visit [place] [address] Norm Joy PA [facility] [place] [address] 12/26/2023 11:45 AM EDT Appointment Hematology [place] [address] 12/26/2023 12:45 PM EDT Office Visit Hematology [place] [address] Jean-Pierre Peña MD [facility] [address] [place] [address] Vicky Burnham APRN [facility] [place] [address] 12/26/2023 2:30 PM EDT Appointment Hematology [place] [address] 02/06/2024 10:00 AM EDT Appointment Hematology [place] [address] 02/06/2024 12:45 PM EDT Office Visit Hematology [place] [address] Jean-Pierre Peña MD [facility] [address] [place] [address] Vicky Burnham APRN [facility] [place] [address] 02/06/2024 2:00 PM EDT Appointment Hematology [place] [address] documented as of this encounter Visit Diagnoses Not on filedocumented in this encounter Care Teams Screen Tender Helper Relationship Specialty Start Date End Date Taylor Bryant, ACTIVITIES MANAGER [address] [place] [address] PCP - General 03/31/10 documented as of this encounter
--- OUTSIDE RECORDS SUMMARY | 2023-12-05 02:29 | XMS_ITS | Encounter Summary ---
Author Organization [facility] Address [facility] [place] [address] Care Team Providers Care Order Puller Name Role Phone Taylor Bryant APRN Primary Care Provider [phone] [phone] Encounter Details Date Type Department Care Team (Late st Contact Info) Description 04/11/2023 Interpretation Only [address] [address] Taylor Bryant APRN [address] [place] [address] Social History Tobacco Use Types Packs/Day Years [...] 2:15 PM EDT Office Visit Dermatology at [place] [address] [place] [address] Inderjit Vilchis MD [facility] DR GILBERTO [place] [address] 12/22/2023 10:00 AM EDT Office [place] [address] Norm Jyo PA [facility] [place] [place] [address] 12/26/2023 11:45 AM EDT Appointment Hematology and Oncology at [place] [address] 12/26/2023 12:45 PM EDT Office Visit Hematology and Oncology at [place] [address] Jean-Pierre Peña MD [facility] [address] [place] [address] Vicky Burnham APRN [facility] [place] [address] 12/26/2023 2:30 PM EDT Appointment Hematology and Oncology at [place] [address] 02/06/2024 10:00 AM EDT Appointment Hematology and Oncology at [place] [phone] 02/06/2024 12:45 PM EDT Office Visit Hematology and Oncology at [place] [address] Jean-Pierre Peña MD [facility] [address] [place] [address] Vicky Burnham VINER OPERATOR [facility] [place] [address] 02/06/2024 2:00 PM EDT Appointment Hematology and Oncology at [place] [phone] documented as of this encounter Procedures Procedure Name Priority Date/Time Associated Diagnosis Comments CT CHEST WO CONTRAST (GENERIC) Routine 04/11/2023 10:17 AM EST documented in this encounter Results * CT Chest wo Contrast (Generic) (04/11/2023 10:17 AM EST) PT CLASS O RAD ADMITDTTM [id number] [facility] PT RAD INFO [id number]^[place] ^Taylor [facility] EXAM DESC CTCHST^CT Chest w/o Contrast^RIS RAD Anatomical Region Laterality Modality Chest Computed Tomogra phy 04/11/2023 10:1 7 AM EST Impressions 04/11/2023 3:40 PM EST No hernias detected. Thank you for letting us participate in the care of this patient. ??If you are a health care provider and have any questions regarding this report, please contact the number below. ??For patients who have questions please contact the health primary care physician that requested your imaging first. ? Narrative 04/11/2023 3:40 PM EST EXAMINATION: CT Chest w/o Contrast CLINICAL HISTORY: As described would be very unlikely to be coronary; with months of chest pain one would expect regional wall motion abnormalities reviewed potential for a hernia to explain both the chest pain and the echo findings. TECHNIQUE: Helical CT of the chest without intravenous contrast administration. Thin-section reconstructions as well as coronal and sagittal reformatted images were generated. COMPARISON: None FINDINGS: Pulmonary parenchyma: No suspicious pulmonary lesion. No acute airspace disease. Airways: No central endobronchial abnormality. Pleura: No effusion. Lymph nodes: No lymphadenopathy. Heart and vasculature: Normal size of the heart. No significant pericardial effusion. A few scattered coronary calcifications. Normal caliber of the thoracic aorta. Other mediastinal structures: No significant findings. Upper abdomen: Post cholecystectomy change. Skeletal structures: Mild multilevel degenerative spondylosis manifested by endplate productive changes. No significant findings. Procedure Note Killian Herman MD - 04/11/2023 EXAMINATION: CT Chest w/o Contrast CLINICAL HISTORY: As described would be very unlikely to be coronary;with months of chest pain one would expect regional wall motion abnormalities reviewed potential for a hernia to explain both the chest pain and theecho findings. TECHNIQUE: Helical CT of the chest without intravenous contrastadministration. Thin-section reconstructions as well as coronal and sagittal reformattedimages were generated. COMPARISON: None FINDINGS: Pulmonary parenchyma: No suspicious pulmonary lesion. No acute airspacedisease. Airways: No central endobronchial abnormality. Pleura: No effusion. Lymph nodes: No lymphadenopathy. Heart and vasculature: Normal size of the heart. No significantpericardial effusion. A few scattered coronary calcifications. Normal caliber of the thoracic aorta. Other mediastinal structures: No significant findings. Upper abdomen: Post cholecystectomy change. Skeletal structures: Mild multilevel degenerative spondylosis manifestedby endplate productive changes. No significant findings. IMPRESSION No hernias detected. Thank you for letting us participate in the care of this patient. If youare a health care provider and have any questions regarding this report,please contact the number below. For patients who have questions please contactthe health primary care physician that requested your imaging first. Taylor Bryant APRN IMG CT ORDERABLES documented in this encounter Visit Diagnoses Not on filedocumented in this encounter Care Teams Order Puller Relationship Specialty Start Date End Date Taylor Bryant APRN [address] [place] [address] PCP - General 03/31/10 documented as of this encounter
--- OUTSIDE RECORDS SUMMARY | 2023-12-05 02:29 | XMS_ITS | Encounter Summary ---
Author Organization [facility] Address [facility] [place] [address] Care Team Providers Care Service Line Coordinator Name Role Phone Taylor Bryant APRN Primary Care Provider [phone] [phone] Encounter Details Date Type Department Care Team (Latest Contact Info) Description 06/27/2023 Travel Social History Tobacco Use Types Packs/Day [...] EDT Office Visit Dermatology at [place] [address] [place] [address] Inderjit Vilchis MD [facility] DR GILBERT[place] [address] 12/22/2023 10:00 AM EDT Office [place] [address] Norm Joy PA [facility] [place] [address] 12/26/2023 11:45 AM EDT Appointment Hematology [place] [address] 12/26/2023 12:45 PM EDT Office Visit Hematology [place] [address] Jean-Pierre Peña MD [facility] DR HEMATOLOGY [place] [address] Vicky Burnham APRN [facility] [place] [address] 12/26/2023 2:30 PM EDT Appointment Hematology and Oncology at [place] [address] 02/06/2024 10:00 AM EDT Appointment Hematology and Oncology at [place] [phone] 02/06/2024 12:45 PM EDT Office Visit Hematology and Oncology at [place] [address] Jean-Pierre Peña MD [facility] DR HEMATOLOGY [place] [address] Vicky Burnham [facility] [place] [address] 02/06/2024 2:00 PM EDT Appointment Hematology and Oncology at [place] [phone] documented as of this encounter Visit Diagnoses Not on filedocumented in this encounter Care Teams Service Line Coordinator Relationship Specialty Start Date End Date Taylor Bryant APRN [address] [place] [address] PCP - General 03/31/10 documented as of this encounter
--- OUTSIDE RECORDS SUMMARY | 2023-12-05 02:29 | XMS_ITS | Encounter Summary ---
Author Organization [facility] Address [facility] [place] [address] Care Team Providers Care Breakfast Host Name Role Phone Taylor Bryant APRN Primary Care Provider [phone] [phone] Reason for Visit * Reason Comments Follow-up bilat knee pain - fe ll on right knee, feels like she tore her meniscus again * Consultation (Routine) - Closed Specialty Diagnoses / Procedures Referred By Contjono t Referred To Contact Orthopaedics Diagnoses right knee Kyle Palumbo MD [facility] [address] [place] [address] [place] [address] Carlos Caceres MD [facility] [place] [address] Referral ID Status Reason Start Date Expiration Date V isits Requested Visits Authorized [id number] Closed Consult, Test & Treat Connection Center 10/20/2017 10/20/2018 1 1 Encounter Details Date Type Department Care Team (Late st Contact Info) Description 10/26/2017 1:00 PM EDT Office [place] [address] Carlos Caceres MD [facility] [place] [address] Primary osteoarthritis of right knee (Primary Dx); Primary osteoarthritis of left knee Social History Tobacco Use Types Packs/Day Years [...] Sign Reading Time Taken Comments Blood Pressure 122/81 10/26/2017 12:57 PM EDT Pulse 78 10/26/2017 12:57 PM EDT Temperature - - Respiratory Rate - - Oxygen Saturation - - Inhaled Oxygen Concentration - - Weight 77.1 kg (170 lb) 10/26/2017 12:57 PM EDT verbal Height 160 cm (5' 3) 10/26/2017 12:57 PM EDT ve rbal Body Mass Index 30.11 10/26/2017 12:57 PM EDT documented in this encounter Progress Notes * Cande Jones PA - 10/26/2017 1:00 PM EDT Keeley came to clinic today with the hopes of obtaining bilateral corticosteroid knee injections.She had her last injection on June 29, 2016. She reports that she had great relief until a few months ago. We reviewed her allergies as well as discussed the risks and benefits of the injection. She elected to move forward. Right knee injection: We discussed with the patient the risks of this procedure include, but are not limited to increasedpain, infection, bleeding, increase in blood sugars, and steroid flare. A timeout was performed at the bedside. Patient confirmed name, , allergies, and site of injection. The injection site was marked over the supero-lateral border of the patella, and prepared with Dura-prep. Using sterile gloves, a local anesthetic injection was performed using 4 ccs of 1% plain Lidocaine on a 27 gauge needle followed by 10 mg of Kenalog 40 on a 22 gauge needle. The procedure was well tolerated. The injection site was covered cleaned with sterile gauze and covered with a sterile band-aid. We discussed monitoring for signs and symptoms of infection which includes fevers, chills, night sweats, injection site redness and discharge, increase in knee pain, and red, hot, and swollen knee. Left knee injection: We discussed with the patient the risks of this procedure include, but are not limited to increasedpain, infection, bleeding, increase in blood sugars, and steroid flare. A timeout was performed at the bedside. Patient confirmed name, , allergies, and site of injection. The injection site was marked over the supero-lateral border of the patella, and prepared with Dura-prep. Using sterile gloves, a local anesthetic injection was performed using 4 ccs of 1% plain Lidocaine on a 27 gauge needle followed by 10 mg of Kenalog 40 on a 22 gauge needle. The procedure was well tolerated. The injection site was covered cleaned with sterile gauze and covered with a sterile band-aid. We discussed monitoring for signs and symptoms of infection which includes fevers, chills, night sweats, injection site redness and discharge, increase in knee pain, and red, hot, and swollen knee. We discussed thatarianna would be eligible for repeat She will be eligible for repeat injections on January 24, 2018 PATEL Rosales documented in this encounter Plan of Treatment Upcoming Encounters Date Type Department Care Team (Late st Contact Info) Description 12/20/2023 2:15 PM EDT Office Visit Dermatology at [address] [address] Inderjit Vilchis MD [facility] DR GILBERTO [place] [address] 12/22/2023 10:00 AM EDT Office [place] [address] Norm Joy PA [facility] [place] [address] 12/26/2023 11:45 AM EDT Appointment Hematology [place] [address] 12/26/2023 12:45 PM EDT Office Visit Hematology [place] [address] Jean-Pierre Peña MD [facility] [place] [address] Vicky Burnham APRN [facility] [place] [address] 12/26/2023 2:30 PM EDT Appointment Hematology [place] [phone] 02/06/2024 10:00 AM EDT Appointment Hematology [place] [phone] 02/06/2024 12:45 PM EDT Office Visit Hematology [place] [address] Jean-Pierre Peña MD [facility] DR [place]AT[place] [address] Vicky Burnham APRN [facility] [place] [address] 02/06/2024 2:00 PM EDT Appointment Hematology [place] [address] documented as of this encounter Visit Diagnoses Diagnosis Primary osteoarthritis of right knee- Primary Primary localized osteoarthrosis, lower leg Primary osteoarthritis of left knee Primary localized osteoarthrosis, lower leg documented in this encounter Administered Medications Inactive Administered Medications - up to 3 most recent administrations Medication Order MAR Action Action Date Dose Rate Site lidocaine (XYLOCAINE) 10 mg/mL (1 %) injection 60 mg 60 mg, Intra-articular, ONCE, 1 dose, On Tue10/26/17 at 1345, Routine Given 10/26/2017 1:55 PM EDT 60 mg lidocaine (XYLOCAINE) 10 mg/mL (1 %) injection 60 mg 60 mg, Intra-articular, ONCE, 1 dose, On Tue10/26/17 at 1345, Routine Given 10/26/2017 1:55 PM EDT 60 mg triamcinolone acetonide (KENALOG-40) injection 40 mg 40 mg, Intra-articular, ONCE, 1 dose, On Tue10/26/17 at 1345, Routine Given 10/26/2017 1:55 PM EDT 40 mg triamcinolone acetonide (KENALOG-40) injection 40 mg 40 mg, Intra-articular, ONCE, 1 dose, On Tue10/26/17 at 1345, Routine Given 10/26/2017 1:55 PM EDT 40 mg documented in this encounter Care Teams Breakfast Host Relationship Specialty Start Date End Date Taylor Bryant APRN [address] [place] [address] PCP - General 03/31/10 documented as of this encounter
--- OUTSIDE RECORDS SUMMARY | 2023-12-05 02:29 | XMS_ITS | Encounter Summary ---
Author Organization [facility] Address [facility] [place] [address] Care Team Providers Care Discotheque Dancer Name Role Phone Taylor Bryant APRN Primary Care Provider [phone] [phone] Reason for Referral * Comprehensive Melanoma Consult (Routine) - Closed Specialty Diagnoses / Procedures Referred By Crista t Referred To Contact Otolaryngology Diagnoses Malignant melanoma, unspecified site sent to DM and [facility] 08/02 Inderjit Vilchis MD [facility] DR [facility] [address] [facility] Otolaryngology [address] [place] [address] Referral ID Status Reason Start Date Expiration Date V isits Requested Visits Authorized [id number] Closed Consult, Test & Treat 07/05/2023 07/04/2024 1 1 * Diagnostic Test (Routine) - Closed Specialty Diagnoses / Procedures Referred By Crista t Referred To Contact Radiology Diagnoses Malignant melanoma, unspecified site Procedures NM PET CT Standard Plus Extremities and Head Inderjit Vilchis MD [facility] DR [facility] [address] [place] [address] Referral ID Status Reason Start Date Expiration Date V isits Requested Visits Authorized [id number] Closed Specialty Service Requested 07/05/2023 01/02/2025 1 1 Encounter Details Date Type Department Care Team (Late st Contact Info) Description 07/05/2023 Orders Only Dermatology at [facility] [address] [place] [address] Inderjit Vilchis MD [facility] DR [facility] [address] Malignant melanoma, unspecified site Social History Tobacco [...] PM EDT Office Visit Dermatology at [facility] [address] [place] [address] Inderjit Vilchis MD [facility] DR [facility] [address] 12/22/2023 10:00 AM EDT Office [place] [address] Norm Joy PA [facility] [place] [address] 12/26/2023 11:45 AM EDT Appointment [place]ology [place] [address] 12/26/2023 12:45 PM EDT Office Visit [place]ology [place] [address] Jean-Pierre Peña MD [facility] HEMATOLOGY [place] [address] Vicky Burnham APRN [facility] [place] [address] 12/26/2023 2:30 PM EDT Appointment [place]ology [place] [address] 02/06/2024 10:00 AM EDT Appointment [place] [address] 02/06/2024 12:45 PM EDT Office Visit [place] [address] Jean-Pierre Peña MD [facility] DR HEMATOLOGY [place] [address] Vicky Burnham ROUTE CLERK [facility] [place] [address] 02/06/2024 2:00 PM EDT Appointment [place] [address] Scheduled Referrals Name Type Priority Associated Diagnoses Order Schedule Referral to Comprehensive Melanoma Team Outpatient Referral Routine Malignant melanoma, unspecified site Ordered: 07/05/2023 documented as of this encounter Results * NM PET CT [...] who have questions please contact the health point of care specialist that requested your imaging first. ? Electronically signed by: Renard Hoffman MD, [facility] ([phone]), at 07/14/2023 9:53 AM Narrative 07/14/2023 9:53 AM EST EXAMINATION: NM PET CT STANDARD PLUS EXTREMITIES AND HEAD CLINICAL HISTORY: Melanoma, staging C43.9, Malignant melanoma of skin, unspecified TECHNIQUE: Procedure: Following IV injection of 37-fizxtx-2-deoxyglucose (FDG) a standard uptake of approximately 60 [...] unspecified TECHNIQUE: Procedure: Following IV injection of 17-gbcjje-4-deoxyglucose(FDG) a standard uptake of approximately 60 minutes, [...] patients who have questions please contactthe health point of care specialist that requested your imaging first. Electronically signed by: Renard Hoffman MD, [facility]([phone]), at 07/14/2023 9:53 AM Inderjit Vilchis MD IMG PET ORDERAB LES documented in this encounter Visit Diagnoses Diagnosis Malignant melanoma, unspecified site Malignant melanoma, unspecified site documented in this encounter Care Teams Discotheque Dancer Relationship Specialty Start Date End Date Taylor Bryant APRN [address] [place] [address] PCP - General 03/31/10 documented as of this encounter
--- OUTSIDE RECORDS SUMMARY | 2023-12-05 02:29 | XMS_ITS | Encounter Summary ---
Author Organization [facility] [place] [address] Care Team Providers Care Skein Washer Name Role Phone Taylor Bryant APRN Primary Care Provider [phone] Reason for Visit * Reason Onset Date Comments Other 12/23/2020 Encounter Details Date Type Department Care Team (Late st Contact Info) Description 12/23/2020 Telephone [place] [address] Yusuf Rivera RN Other Social History Tobacco Use Types Packs/Day Years [...] encounter Miscellaneous Notes * Telephone Encounter - Yusuf Rivera RN - 12/23/2020 11:13 AM EDT RTC to Keeley, she reports getting the 2nd Moderna vaccine on 09-23-20, and wants to start taking Enbrel, I transferred her to the secretaries to setup a appointment with Dr. Rosario. documented in this encounter Plan of Treatment Upcoming Encounters Date Type Department Care Team (Late st Contact Info) Description 12/20/2023 2:15 PM EDT Office Visit Dermatology at [facility] [address] [place] [address] Inderjit Vilchis MD [facility] DR GILBERTO [place] [address] 12/22/2023 10:00 AM EDT Office Visit Otolaryngology at [place] [address] Norm Joy PA [facility] [place] [address] 12/26/2023 11:45 AM EDT Appointment Hematology and Oncology at [place] [address] 12/26/2023 12:45 PM EDT Office Visit Hematology and Oncology at [place] [address] Jean-Pierre Peña MD [facility] [place] [address] Vicky Burnham APRN [facility] [place] [address] 12/26/2023 2:30 PM EDT Appointment Hematology and Oncology at [place] [address] 02/06/2024 10:00 AM EDT Appointment Hematology and Oncology at [address] 02/06/2024 12:45 PM EDT Office Visit Hematology and Oncology at [address] Jean-Pierre Peña MD [facility] [place] [address] Vicky Burnham APRN [facility] [place] [address] 02/06/2024 2:00 PM EDT Appointment Hematology [place] [address] documented as of this encounter Visit Diagnoses Not on filedocumented in this encounter Care Teams Skein Washer Relationship Specialty Start Date End Date Taylor Bryant APRN [address] [place] [address] PCP - General 03/31/10 documented as of this encounter
--- OUTSIDE RECORDS SUMMARY | 2023-12-05 02:29 | XMS_ITS | Encounter Summary ---
Author Organization [facility] Address [facility] [place] [address] Care Team Providers Care Emergency Veterinary Technician Name Role Phone Taylor Bryant ZARA Primary Care Provider [phone] Encounter Details Date Type Department Care Team (Latest Contact Info) Description 07/04/2023 4:00 PM EST TH Visit (TeleHealth) Dermatology at [facility] [address] [place] [address] Inderjit Argueta MD [facility] [address] GILBERTO [place] [address] Malignant melanoma, unspecified site Social History Tobacco [...] Progress Notes * Inderjit Argueta MD - 07/04/2023 4:00 PM EST Images from the original note were not included. DEPARTMENT OF DERMATOLOGY Medical Dermatology Clinic Provider: INDERJIT ARGUETA MD Patient verbally consents to this telephone visit and understands that this visit may be billed similar to a clinic office visit. I provided care to the patient via telephone/video chat today. Patient's preferred name Keeley Preferred contact method for results [x]Phone []myD-H []Letter Detailed phone message OK? yes Are there any other people with whom we may discuss your care? 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 Patient returns to clinic today for a path report follow up. Large melanoma on scalp. Received path report from outside lab indicating a malignant melanoma > 1.5 mm. I told her the news. This is not a complete biopsy, nor is it the deepest depth, likely much deeperbased on my examination. See previous note and photographs. Talked about depth, staging, jose r-adjuvant treatment vs. Conventional, and included sentinel node biopsy as the next initial staging tool. No adenopathy cervical or otherwise on my in person examination. She has good energy. Seems well. Will discuss her at Melanoma Tumor Board. Talked with Javed, who will arrange the PET scan ahead of time, and get the navigation going. Last visit at Dermatology: 06/27/2023 Last visit with this provider: 06/27/2023 Medications: Reviewed in eD-H Allergies: Reviewed in eD-H Skin Examination: Focused skin examination of the face was normal with the exception of the findings below. Assessment/Plan # Malignant Melanoma- 1.5mm (see outside path) ... At least 1.5 mm Breslow depth. -Reviewed path from [place] with patient today -Reviewed pathophysiology and goal of treatment -Joint decision to review at Melanoma tumor board then decide on treatment plan -Emphasized a step approach to treatment , Tumor Board input, ? Jose R adjuvant vs. Traditional. Other: N/A RTC: after presentation to the tumor board []Note routed to personal secretary []Recall placed in scheduling system []Appointment scheduled at checkout Scribe attestation: Josee Krishnamurthy LPN has performed the documentation for this encounter in the presence of and acting as a scribe for INDERJIT ARGUETA MD. I performed the above scribed service and agree with the accuracy of the documentation in this encounter. Reviewed and signed by: INDERJIT ARGUETA MD Dermatology [facility] documented in this encounter Plan of Treatment Upcoming Encounters Date Type Department Care Team (Late st Contact Info) Description 12/20/2023 2:15 PM EDT Office Visit Dermatology at [facility] [address] [place] [address] Inderjit Argueta MD [facility] DR GILBERTO [place] [address] 12/22/2023 10:00 AM EDT Office Visit [place] [address] Norm Joy PA [facility] [place] [address] 12/26/2023 11:45 AM EDT Appointment Hematology [place] [address] 12/26/2023 12:45 PM EDT Office Visit Hematology [place] [address] Jean-Pierre Peña MD [facility] DR [place] [address] Vicky Burnham APRN [facility] [place] [address] 12/26/2023 2:30 PM EDT Appointment Hematology [place] [address] 02/06/2024 10:00 AM EDT Appointment Hematology [place] [address] 02/06/2024 12:45 PM EDT Office Visit Hematology [place] [address] Jean-Pierre Peña MD [facility] DR H[place] [address] Vicky Burnham APRN [facility] [place] [address] 02/06/2024 2:00 PM EDT Appointment Hematology [place] [address] documented as of this encounter Visit Diagnoses Diagnosis Malignant melanoma, unspecified site documented in this encounter Care Teams Emergency Veterinary Technician Relationship Specialty Start Date End Date Taylor Bryant APRN [address] [place] [address] PCP - General 03/31/10 documented as of this encounter
--- OUTSIDE RECORDS SUMMARY | 2023-12-05 02:29 | XMS_ITS | Encounter Summary ---
Author Organization [facility] [place] [address] Care Team Providers Care Pulpit Operator Name Role Phone Taylor Bryant APRN Primary Care Provider [phone] Encounter Details Date Type Department Care Team (Late st Contact Info) Description 02/16/2021 Telephone [place] [address] Mabel Moreno Social History Tobacco Use Types Packs/Day Years [...] 2:15 PM EDT Office Visit [address]ermatology [address] [address] Inderjit Vilchis MD [facility] DR GILB[place] [address] 12/22/2023 10:00 AM EDT Office Visit [place] [address] Norm Joy PA [facility] [place] [address] 12/26/2023 11:45 AM EDT Appointment Hematology [place] [address] 12/26/2023 12:45 PM EDT Office Visit Hematology [place] [address] Jean-Pierre Peña MD [facility] [place] [address] Vicky Burnham APRN [facility] [place] [address] 12/26/2023 2:30 PM EDT Appointment Hematology [place] [address] 02/06/2024 10:00 AM EDT Appointment Hematology [place] [address] 02/06/2024 12:45 PM EDT Office Visit Hematology [place] [address] Jean-Pierre Peña MD [facility] [place] [address] Vicky Burnham REELING AND TUBING MACHINE OPERATOR [facility] [place] [address] 02/06/2024 2:00 PM EDT Appointment Hematology [place] [address] documented as of this encounter Visit Diagnoses Not on filedocumented in this encounter Care Teams Pulpit Operator Relationship Specialty Start Date End Date Taylor Bryant APRN [address] [place] [address] PCP - General 03/31/10 documented as of this encounter
--- OUTSIDE RECORDS SUMMARY | 2023-12-05 02:29 | XMS_ITS | Encounter Summary ---
Author Organization Counts Include [facility] Address [facility] [place] [address] Care Team Providers Care Inspector Poising Name Role Phone Taylor Bryant APRN Primary Care Provider [phone] Reason for Visit * Reason Comments Specialty Pharmacy Review etanercept (EN BREL) 50 mg/mL (0.98 mL) Encounter Details Date Type Department Care Team (Late st Contact Info) Description 07/31/2020 Specialty [place] [phone] Calderon Mendoza Social History Tobacco Use Types Packs/Day Years [...] as of this encounter Progress Notes * Calderon Mendoza - 07/31/2020 11:59 PM EDT The [facility] has completed a benefits investigation for Keeley Zapata Jennypaxton to review their eligibility to fill at [facility]. Per patient's medication list they are prescribed etanercept (ENBREL) 50 mg/mL (0.98 mL) and the medication may be able to be filled at the [facility], and currently on hold pending ortho eval. documented in this encounter Plan of Treatment Upcoming Encounters Date Type Department Care Team (Late st Contact Info) Description 12/20/2023 2:15 PM EDT Office Visit Dermatology at [facility] [address] [place] [address] Inderjit Vilchis MD [facility] DR GILBERTO [place] [address] 12/22/2023 10:00 AM EDT Office Visit Otolaryngology at [address] Norm Joy PA [facility] [place] [address] 12/26/2023 11:45 AM EDT Appointment Hematology and Oncology at [place] [phone] 12/26/2023 12:45 PM EDT Office Visit Hematology and Oncology at [place] [address] Jean-Pierre Peña MD [facility] DR [place] [address] Vicky Burnham APRN [facility] [place] [address] 12/26/2023 2:30 PM EDT Appointment Hematology and Oncology at [place] [phone] 02/06/2024 10:00 AM EDT Appointment Hematology and Oncology at [place] [phone] 02/06/2024 12:45 PM EDT Office Visit Hematology and Oncology at [place] [phone] Jean-Pierre Peña MD [facility] DR [place] [address] Vicky Burnham APRN [facility] [place] [address] 02/06/2024 2:00 PM EDT Appointment Hematology [place] [address] documented as of this encounter Visit Diagnoses Not on filedocumented in this encounter Care Teams Inspector Poising Relationship Specialty Start Date End Date Taylor Bryant APRN [address] [place] [address] PCP - General 03/31/10 documented as of this encounter
--- OUTSIDE RECORDS SUMMARY | 2023-12-05 02:29 | XMS_ITS | Encounter Summary ---
Author Organization [facility] Address [facility] [place] [address] Care Team Providers Care First Aid Teacher Name Role Phone Taylor Bryant APRN Primary Care Provider [phone] Encounter Details Date Type Department Care Team (Latest Contact Info) Description 02/09/2021 11:00 AM EDT TH Visit (TeleHealth) [place] [address] Seamus Rosario MD [facility] [place] [address] Psoriatic arthritis; Effusion of left knee; Medication monitoring encounter; High risk medication use; Chronic bilateral low back pain without sciatica; Bilateral hip pain Social History Tobacco Use Types Packs/Day Years [...] as of this encounter Progress Notes * Seamus Rosario MD - 02/09/2021 11:00 AM EDT Rheumatology follow-up Note Rheumatology History PsA Psoriasis HPI: Keeley Gutierrez is a 55 y.o. female who presents today for evaluation of she as Enrbel followed by Dr reynolds For PsA. Psoriasis well controlled since she was 2 years o with topicals. She would really prefer not to inject self though Enbrel was effective in the past. She did not usethe autoinjector which should be more or consider to use. But would prefer to be on a pill. Discussed the use of Otezla and Xeljanz risk benefits reviewed. She describes bilateral knee pain with swelling redness and warmth. Seen by the orthopod aspirated and injected. Unclear if was sent for testing bilateral ankle pain with some swelling no warmth worse at the end of the day. 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 Remainder review of systems within normal limits. E. Physical Exam: There were no vitals taken for this visit. Labs: Studies: After consent was obtained, using sterile technique the left knee was prepped with idoine. Assessment and Recommendation: Keeley Gutierrez is a 55 y.o. female who presents today with with history of psoriatic arthritis previously followed by Dr. Olvia had been previously on Enbrel. She has not yet had a Covid vaccination and is scheduled to see the orthopedist for evaluation of left knee.. We discussed restarting Enbrel with the current potential for left knee surgery and procedure coming up we decided to hold off also patient is scheduled to get her Covid vaccine. Orders are in place to get th things in motion when she is completed both possible orthopedist intervention and vaccination. Psoriatic arthritis HLA-B27 positive-feels disease activity is moderate with bilateral knee pain and effusion seen orthopedic was able to aspirate unclear if was sent for cell count culture and crystal. She did get injections which were beneficial. -Advised that they could send for cell count culture and crystal that would be helpful She was given 3 options for medication-really avoiding injecting -Enbrel mini or Humira as an option with the autoinjector since March before found it effective already no side effect to TNF reviewed today Option #2 -Otezla-she has a history of seasonal depression so somewhat concerned but from a side effect profile otherwise feels is a good alternative Option #3-Xeljanz which is a pill-reviewed risk benefits was somewhat concerned about his blood clot risk and cardiovascular risk Left knee effusion seen by orthopod will see if we can get fluid analysis to think confer that it is psoriatic arthritis versus gout we will check uric acid Hepatitis TB HIV negative in July Orders Placed This Encounter Procedures ??? CBC (with Diff) ??? CRP, acute inflammation ??? Creatinine ??? Hepatic Function Panel ??? Sedimentation rate ??? Lipid Panel (Reflex Direct LDL) ??? Uric acid Return in about 4 weeks (around 03/09/2021). Greater than 43 minutes spent in total documented in this encounter Plan of Treatment Upcoming Encounters Date Type Department Care Team (Late st Contact Info) Description 12/20/2023 2:15 PM EDT Office Visit Dermatology at [facility] [address] [place] [address] Inderjit Vilchis MD [facility] DR GILBERTO [place] [address] 12/22/2023 10:00 AM EDT Office [place] [address] Norm Joy PA [facility] DR OTOLARYNGOLOGY [place], [place] [address] 12/26/2023 11:45 AM EDT Appointment Hematology [place] [address] 12/26/2023 12:45 PM EDT Office Visit Hematology [place] [address] Jaen-Pierre Peña MD [facility] DR HEMATOLOGY AND ONCOLOGY [place], [place] [phone] Vicky Burnham APRN [facility] DR MEDICAL ONCOLOGY [place], [place] [address] 12/26/2023 2:30 PM EDT Appointment Hematology [place] [address] 02/06/2024 10:00 AM EDT Appointment Hematology [place] [address] 02/06/2024 12:45 PM EDT Office Visit Hematology [place] [address] Jean-Pierre Peña MD [facility] DR [place] [address] Vicky Burnham APRN [facility] [place] [address] 02/06/2024 2:00 PM EDT Appointment Hematology [place] [address] documented as of this encounter Visit Diagnoses Diagnosis Psoriatic arthritis Psoriatic arthropathy Effusion of left knee Effusion of lower leg joint Medication monitoring encounter Encounter for therapeutic drug monitoring High risk medication use Encounter for long-term (current) use of other medications Chronic bilateral low back pain without sciatica Bilateral hip pain Pain in joint, pelvic region and thigh documented in this encounter Care Teams First Aid Teacher Relationship Specialty Start Date End Date Taylor Bryant APRN [address] [place] [address] PCP - General 03/31/10 documented as of this encounter
--- OUTSIDE RECORDS SUMMARY | 2023-12-05 02:29 | XMS_ITS | Encounter Summary ---
Author Organization [facility] Address [facility] [place] [address] Care Team Providers Care Cardiac Cath Technician Name Role Phone Taylor Bryant APRN Primary Care Provider [phone] Encounter Details Date Type Department Care Team (Late st Contact Info) Description 06/28/2016 10:40 AM EST - 06/28/2016 11:09 AM EST Hospital Encounter XRay at [address] [place] [address] Carlos Caceres MD [facility] [place] [address] Psoriatic arthritis Discharge Disposition: Home Social History Tobacco Use [...] 2:15 PM EDT Office Visit Dermatology at [facility] [address] [place] [address] Inderjit Vilchis MD [facility] DR GILBERTO [place] [address] 12/22/2023 10:00 AM EDT Office Visit Otolaryngology at [place] [address] Norm Joy PA [facility] [place] [address] 12/26/2023 11:45 AM EDT Appointment Hematology and Oncology at [address] 12/26/2023 12:45 PM EDT Office Visit Hematology and Oncology at [place] [address] Jean-Pierre Peña MD [facility] DR HEMATOLOGY [place] [address] Vicky Burnham APRN [facility] [place] [address] 12/26/2023 2:30 PM EDT Appointment Hematology and Oncology at [address] 02/06/2024 10:00 AM EDT Appointment Hematology and Oncology at [place] [phone] 02/06/2024 12:45 PM EDT Office Visit Hematology and Oncology at [address] Jean-Pierre Peña MD [facility] [place] [address] Vicky Burnham APRN [facility] [place] [address] 02/06/2024 2:00 PM EDT Appointment Hematology and Oncology at [place] [phone] documented as of this encounter Procedures Procedure Name Priority Date/Time Associated Diagnosis Comments XR KNEE STANDING ALIGNMENT Routine 06/28/2016 11:03 AM EST Psoriatic arthritis documented in this encounter Results * XR Knee Standing Alignment (Generic) (06/28/2016 11:03 AM EST) Anatomical Region Laterality Modality N/A Digital Radiogra phy Impressions 06/28/2016 11:28 AM EST Alignment as described in the body of the report. Narrative 06/28/2016 11:28 AM EST EXAMINATION: XR KNEE STANDING ALIGNMENT (GENERIC) CLINICAL HISTORY: Left knee pain in this patient with psoriatic arthritis. TECHNIQUE: Separate images of the pelvis, knees and feet were acquired in the AP projection with the patient standing. These images were stitched together to form a composite image of the pelvis and legs allowing for evaluation of lower extremity alignment in the weight bearing position. ? COMPARISON: Multiple prior knee radiographs ranging from 03/20/2013 through 04/20/2016. Attention is also directed to the left knee MRI dated 04/07/2013 and the right knee MRI dated 02/23/2014. FINDINGS: The left lower extremity weightbearing axis is midline. The right lower extremity weightbearing axis is minimally laterally deviated, by approximately 5 mm. The right lower extremity, from the right femoral head to the right tibial plafond, measures 84.3 cm in length, while the left lower extremity, from the left femoral head to the left tibial plafond measures 83.4 cm. Sclerosis along the sacroiliac joints are again seen, similar to on the 02/20/09 CT images of pelvis. Surgical clips project over the left pelvis. Procedure Note Adia Pulido MD - 06/28/2016 EXAMINATION: XR KNEE STANDING ALIGNMENT (GENERIC) CLINICAL HISTORY: Left knee pain in this patient with psoriaticarthritis. TECHNIQUE: Separate images of the pelvis, knees and feet were acquired inthe AP projection with the patient standing. These images were stitched togetherto form a composite image of the pelvis and legs allowing for evaluation oflower extremity alignment in the weight bearing position. COMPARISON: Multiple prior knee radiographs ranging from 03/20/2013through 04/20/2016. Attention is also directed to the left knee MRI dated106/07/2012 and the right knee MRI dated 02/23/2014. FINDINGS: The left lower extremity weightbearing axis is midline. The right lower extremity weightbearing axis is minimally laterally deviated, byapproximately 5 mm. The right lower extremity, from the right femoral head to the righttibial plafond, measures 84.3 cm in length, while the left lower extremity, fromthe left femoral head to the left tibial plafond measures 83.4 cm. Sclerosis along the sacroiliac joints are again seen, similar to on the02/20/09 CT images of pelvis. Surgical clips project over the left pelvis. IMPRESSION Alignment as described in the body of the report. Carlos Caceres MD IMG DX ORDERABLES documented in this encounter Visit Diagnoses Diagnosis Psoriatic arthritis Psoriatic arthropathy documented in this encounter Care Teams Cardiac Cath Technician Relationship Specialty Start Date End Date Taylor Bryant APRN [address] [place] [address] PCP - General 03/31/10 documented as of this encounter
--- OUTSIDE RECORDS SUMMARY | 2023-12-05 02:29 | XMS_ITS | Encounter Summary ---
Author Organization [facility] [place] [address] Care Team Providers Care Vision Rehabilitation Therapist Name Role Phone Taylor Bryant APRN Primary Care Provider [phone] [phone] Encounter Details Date Type Department Care Team (Late st Contact Info) Description 05/17/2003 Orders Only Lab [facility] [place] [address] Fernie Jacobson MD GYNECOLOGY ONCOLOGY Social History Tobacco Use Types Packs/Day Years Used Date Smoking Tobacco: Never Assessed [facility] Utilities Answer Date Recorded In the [...] 2:15 PM EDT Office Visit Dermatology at [place] [address] [place] [address] Inderjit Vilchis MD [facility] DR GILBERTO [place] [address] 12/22/2023 10:00 AM EDT Office [place] [phone] Norm Joy PA [facility] [place] [address] 12/26/2023 11:45 AM EDT Appointment Hematology [place] [phone] 12/26/2023 12:45 PM EDT Office Visit [place]ematology [place] [phone] Jean-Pierre Peña MD [facility] [place] [address] Vicky Burnham APRN [facility] [place] [address] 12/26/2023 2:30 PM EDT Appointment Hematology [place] [phone] 02/06/2024 10:00 AM EDT Appointment [place]ematology [place] [phone] 02/06/2024 12:45 PM EDT Office Visit [place]ematology [place] [phone] Jean-Pierre Peña MD [facility] DR [place] [address] Vicky Burnham APRN [facility] [place] [address] 02/06/2024 2:00 PM EDT Appointment [place]ology [place] [address] documented as of this encounter Procedures Procedure Name Priority Date/Time Associated Diagnosis Comments SURGICAL PATHOLOGY REPORT Routine 05/17/2003 12:43 PM EST documented in this encounter Results * Surgical Pathology Report (05/17/2003 12:43 PM EST) Surgical Pathology Report [id number] ? Location: The signing pathologist has (i) examined the relevant preparation(s) for the specimen(s) and (ii) rendered or confirmed the diagnosis(es). . 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 Black dye equals exocervix, yellow dye equals ?exocervix, blue dye small sample equals endocervix; ?formalin. Qty/Size/Weight: ?Multiple. ??The first tissue marked predominantly with ?green ink is a partially fragmented, 2.6 x 2 x 1.5-cm ? cervical cone. ??Also received are three fragments of ?tissue marked with yellow ink, 1.3 x 0.6 x 0.4 cm to ?2 x 1 x 0.8 cm. ??Lastly there is a ?2 x 1 x 0.8-cm fragment of tissue which is marked ?with blue ink. Sections/Processi ng: ??The fist specimen is overinked black, serially ?sectioned, and entirely submitted in (1-12). ??The ?additional three fragments are overinked black, ?serially sectioned, and entirely submitted as ?(13-15). ??The last tissue is overinked black, ?serially sectioned, and entirely submitted as ? (16-17). ??(T17) ??aje/SNS Microscopic Description Slides reviewed, microscopic description not recorded. Diagnosis Cervical cone biopsy: ?? 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 Comment). CR-0 05/21/03 CM 05/21/03 Verified by: ? Marshal Flores MD ?Pathologist ?(Electronic Signature) The attending pathologist whose signature appears on this report has reviewed all diagnostic slides and has edited the gross and/or microscopic portion of the report in rendering the final pathologic diagnosis. Comment ?? HGSIL (ASTON II-III) is present in most of the sections including the main conization specimen and the additional portions of tissue that were received in the same container. ??The lesion extends to both the endo and ectocervical specimen resection margins. ANGEL REMY 05/17/2003 12:4 3 PM EST Fernie Jacobson MD PATHOLOGY/CYTOLOGY ORDERABLES [facility] documented in this encounter Visit Diagnoses Not on filedocumented in this encounter Care Teams Vision Rehabilitation Therapist Relationship Specialty Start Date End Date Taylor Bryant APRN [address] [place] [address] PCP - General 03/31/10 documented as of this encounter
--- OUTSIDE RECORDS SUMMARY | 2023-12-05 02:29 | XMS_ITS | Encounter Summary ---
Author Organization [facility] [place] [address] Care Team Providers Care Marketing Services Rep Name Role Phone Taylor Bryant APRN Primary Care Provider [phone] Encounter Details Date Type Department Care Team (Late st Contact Info) Description 08/01/2003 Orders Only Lab [facility] [place] [address] Fernie Jacobson MD GYNECOLOGY ONCOLOGY Social History Tobacco Use Types Packs/Day Years Used Date Smoking Tobacco: Never Assessed [facility] Utilities Answer Date Recorded In the past [...] 2:15 PM EDT Office Visit Dermatology at [place] [address] [place] [address] Inderjit Vilchis MD [facility] DR GILBERTO [place] [address] 12/22/2023 10:00 AM EDT Office [place] [phone] Norm Joy PA [facility] [place] [address] 12/26/2023 11:45 AM EDT Appointment Hematology [place] [phone] 12/26/2023 12:45 PM EDT Office Visit Hematology [place] [phone] Jean-Pierre Peña MD [facility] HEMATOLOGY [place] [address] Vicky Burnham APRN [facility] [place] [address] 12/26/2023 2:30 PM EDT Appointment Hematology [place] [phone] 02/06/2024 10:00 AM EDT Appointment Hematology [place] [phone] 02/06/2024 12:45 PM EDT Office Visit Hematology [place] [phone] Jean-Pierre Peña MD [facility] DR HEMATOLOGY [place] [address] Vicky Burnham APRN [facility] [place] [address] 02/06/2024 2:00 PM EDT Appointment Hematology [place] [address] documented as of this encounter Procedures Procedure Name Priority Date/Time Associated Diagnosis Comments SURGICAL PATHOLOGY REPORT Routine 08/01/2003 1:58 PM EST documented in this encounter Results * Surgical Pathology Report (08/01/2003 1:58 PM EST) Surgical Pathology Report [id number] ? Location: [facility]; [facility]; B The signing pathologist has (i) examined the relevant preparation(s) for the specimen(s) and (ii) rendered or confirmed the diagnosis(es). . ?Pathology Surgical Pathology Final Report Clinical Information Specimen Submitted: A - Posterior vagina B - Uterus, pelvis, Wira Protocol Number: ?? 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 Qty/Size/Weight: ?3.1 x 2.4 x 0.5 cm. Tissue Description: ?? Braswell, smooth mucosa and underlying soft tissue. ??No ?lesions are identified. Sections/Processi ng: ??The resection margin is inked black. ??The specimen is ?serially sectioned. ??(T5) ??aje/SDD B - Labeled/Fixative: ?Uterus, fresh. Qty/Size/Weight: ? 8.5 x 4.9 x 4.5 cm Tissue Description: ?Simple hysterectomy. ?? Uterus and Cervix: ?Endometrium: ? Braswell, unremarkable. ? Thickness: ?0.3 cm. ?Myometrium: ?Braswell, trabecular. ? Thickness: ?2.3 cm. ? Lesions: ?None. ?Uterine serosa: ?Red, smooth, no lesions. ?Cervix: ?Braswell, slightly granular, with focal areas of ? hemorrhage. ?Vagina: ?There is a section of vagina located posteriorly ? which measures 2.5 cm in length x 1.2 cm in width. ?The paracervical resection margin is inked black ? as well as the vaginal resection margins. Sections/Processi ng: ? Airplane Gas Tank Liner Assembler sections are submitted as follows: ?(1-2) posterior vaginal cuff entirely submitted as ? longitudinal sections; (3-4) superior endocervix, ? posterior; (5) superior endocervix, anterior; ? (6-13) posterior endocervix submitted from ? posterior to inferior; (14-17) anterior endocervix ?submitted superior to inferior; (18-29) posterior ? cervix entirely submitted longitudinally from left ?to right; (30-33) anterior cervix, entirely ? submitted longitudinally from left to right; (34) ? sales and merchandising representative endometrium. ??(R34) ??aje/SDD Microscopic Description Slides reviewed, microscopic description not recorded. Diagnosis A - Posterior vaginal mucosa: ?No evidence of dysplasia or HPV effect. B - Uterus (hysterectomy): ?1. ??Extensive HGSIL (ASTON III) associated with HPV effect involving . Diagnosis ?the endocervical surface mucosa and endocervical glands. ?2. ??HGSIL (VAIN III) involving attached portion of posterior vaginal ?mucosa and extending to the inked vaginal specimen resection margin ?(sections B-1 & B-2). ?3. ??Secretory endometrium. CR-0 08/08/03 [facility] 08/09/03 Verified by: ? Marshal Flores MD ?Pathologist ?(Electronic Signature) The attending pathologist whose signature appears on this report has reviewed all diagnostic slides and has edited the gross and/or microscopic portion of the report in rendering the final pathologic diagnosis. Comment ?? Deeper levels were obtained. [facility] 08/01/2003 1:58 PM EST Fernie Jacobson MD PATHOLOGY/CYTOLOGY ORDERABLES Performing Organization Address City/State/[facility] Co de Phone Number [facility] documented in this encounter Visit Diagnoses Not on filedocumented in this encounter Care Teams Marketing Services Rep Relationship Specialty Start Date End Date Taylor Bryant, BUSINESS BANKER [address] [place] [address] PCP - General 03/31/10 documented as of this encounter
--- OUTSIDE RECORDS SUMMARY | 2023-12-05 02:29 | XMS_ITS | Encounter Summary ---
Author Organization [facility] Address [facility] [place] [address] Care Team Providers Care A R Collections Rep Name Role Phone Taylor Bryant APRN Primary Care Provider [phone] Encounter Details Date Type Department Care Team (Late st Contact Info) Description 10/28/2015 - 10/28/2015 11:59 PM EDT Hospital Encounter [place] [address] Carlos Caceres MD [facility] [place] [address] Pain Discharge Disposition: Home Social History Tobacco Use Types Packs/Day Years Used Date Smoking Tobacco: Never Assessed Sex and Gender Information Value Date Recorded Sex Assigned at Not on file Gender Identity Not on file Sexual Orientation Not on file documented as of this encounter Medications at Time of Discharge Medication Sig Dispensed Refills Start Date End Date CIS Free Text Med - control 010 06/09/2016 CITALOPRAM HYDROBROMIDE (CELEXA ORAL) 06/09/2016 documented as of this encounter Plan of Treatment Upcoming Encounters Date Type Department Care Team (Late st Contact Info) Description 12/20/2023 2:15 PM EDT Office Visit Dermatology at [facility] [address] [place] [address] Inderjit Vilchis MD [facility] DR GILBERTO [place] [address] 12/22/2023 10:00 AM EDT Office Visit Otolaryngology at [place] [phone] Norm Joy PA [facility] [place] [address] 12/26/2023 11:45 AM EDT Appointment Hematology and Oncology at [place] [address] 12/26/2023 12:45 PM EDT Office Visit Hematology and Oncology at [place] [address] Jean-Pierre Peña MD [facility] DR HEMATOLOGY [place] [address] Vicky Burnham APRN [facility] [place] [address] 12/26/2023 2:30 PM EDT Appointment Hematology and Oncology at [place] [address] 02/06/2024 10:00 AM EDT Appointment Hematology and Oncology at [place] [phone] 02/06/2024 12:45 PM EDT Office Visit Hematology and Oncology at [place] [phone] Jean-Pierre Peña MD [facility] DR HEMATOLOGY [place] [address] Vicky Burnham APRN [facility] [place] [address] 02/06/2024 2:00 PM EDT Appointment Hematology and Oncology at [place] [phone] documented as of this encounter Procedures Procedure Name Priority Date/Time Associated Diagnosis Comments FILM LIBRARY STORAGE ONLY DX KNEE Routine 10/28/2015 12:00 AM EDT Pain documented in this encounter Results * Film Library- Storage Only DX Knee (10/28/2015 12:00 AM EDT) Narrative RAD - 06/09/2016 2:51 PM EST This exam is for storage only and is auto-finalizing. Carlos Caceres MD [facility] FILM LIBRARY ORD ERABLES [place], [place] documented in this encounter Visit Diagnoses Diagnosis Pain Generalized pain documented in this encounter Care Teams A R Collections Rep Relationship Specialty Start Date End Date Taylor Bryant APRN [address] [place] [address] PCP - General 03/31/10 documented as of this encounter
--- OUTSIDE RECORDS SUMMARY | 2023-12-05 02:29 | XMS_ITS | Encounter Summary ---
Author Organization [facility] Address [facility] [place] [address] Care Team Providers Care Locker Room Supervisor Name Role Phone Taylor Bryant APRN Primary Care Provider [phone] Reason for Visit * Consultation (Routine) - Authorized Specialty Diagnoses / Procedures Referred By Crista padron Referred To Contact Dermatology Diagnoses Pigmented skin lesion suspicious for malignant neoplasm Taylor Bryant APRN [address] [place] [address] [facility] [address] [place] [address] Referral ID Status Reason Start Date Expiration Date Visits Requested Visits Authorized [id number] Authorized Consult, Test & Treat PCP Updated and/or Approved 06/25/2023 06/24/2024 6 6 Encounter Details Date Type Department Care Team ([facility] st Contact Info) Description 06/27/2023 3:40 PM EST Office Visit Dermatology at [facility] [address] [place] [phone] Inderjit Argueta MD [facility] DR GILBERTO [place] [address] Blue nevus; Neoplasm of uncertain behavior of skin Social History Tobacco Use Types Packs/Day Years [...] Progress Notes * Inderjit Argueta MD - 06/27/2023 3:40 PM EST Images from the original note [...] history no Social History 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 Patient returns to clinic today for a pigmented lesion on the back of the right scalp. ? Melanoma. Patient had a biopsy done at [facility] by Taylor Bryant last Tuesday but has not received the results yet. Assuming this is a melanoma, do not know and will not know the complete depth with the outside DH biopsy, re- read path here at [facility], might have her back here with me or Dr. Bolanos, for excision, no closure, to get final depth, and staging process going. No adenopathy today, she feels well. Long discussion about melanoma, depth, staging, process and our Melanoma Tumor Board. Will track down the path. Last visit at Dermatology: Visit date not found Last visit with this provider: Visit date not found Medications: Reviewed in eD-H Allergies: Reviewed in eD-H Skin Examination: Focused skin examination of the scalp was normal with the exception of the findings below. Assessment/Plan # ? Melanoma vs Pigmented BCC vs SCC - right occipital scalp (see figures 1-3 below) - Patient had biopsy by Taylor Bryant at [facility] on 06/21/23, results have not came back yet - Discussed if positive for melanoma, will bring to tumor board. Reviewed treatment options if positive. - No lymphadenopathy noted. - Cam lamp negative - Plan to have TH visit in a week when results of biopsy come back. # Blue Nevus - left lateral leg (figure 4) - Benign. Patient reassured. Figure 1. Wood Lamp, exaggerated pigmentation, ? Melanoma, waiting on biopsy results, outside , will not take a second biopsy today, likely will need complete excision with narrow margins, fixed tissue, to determine deepest depth for staging and next steps. Figure 2 Figure 3 Figure 4 Photo(s) taken and charted with patient's verbal consent. Other: N/A RTC: 1 week for TH visit to discuss biopsy results from outside facility []Note routed to law secretary []Recall placed in scheduling system [x]Appointment scheduled at checkout Scribe attestation: Keith Bentley LPN has performed the documentation for this encounter in the presence of and acting as a scribe for INDERJIT ARGUETA MD. I performed the above scribed service and agree with the accuracy of the documentation in this encounter. Reviewed and signed by: INDERJIT ARGUETA MD Dermatology [facility] documented in this encounter Plan of Treatment Upcoming Encounters Date Type Department Care Team (Late st Contact Info) Description 12/20/2023 2:15 PM EDT Office Visit Dermatology at [address] [address] Inderjit Argueta MD [facility] DR GILBERTO [place] [address] 12/22/2023 10:00 AM EDT Office [place] [address] Norm Joy PA [facility] [place] [address] 12/26/2023 11:45 AM EDT Appointment [place] [address] 12/26/2023 12:45 PM EDT Office Visit [place] [address] Jean-Pierre Peña MD [facility] [place] [address] Vicky Burnham APRN [facility] [place] [address] 12/26/2023 2:30 PM EDT Appointment [place]ology [place] [address] 02/06/2024 10:00 AM EDT Appointment [place] [address] 02/06/2024 12:45 PM EDT Office Visit Hematology and Oncology at [place] [phone] Jean-Pierre Peña MD [facility] DR HEMATOLOGY [place] [address] Vicky Burnham WORLD GEOGRAPHY TEACHER [facility] [place] [address] 02/06/2024 2:00 PM EDT Appointment Hematology and Oncology at [place] [phone] Scheduled Referrals Name Type Priority Associated Diagnoses Order Schedule Referral to Dermatology Outpatient Referral Routine Pigmented skin lesion suspicious for malignant neoplasm Ordered: 06/25/2023 documented as of this encounter Visit Diagnoses Diagnosis Blue nevus Neoplasm of uncertain behavior of skin documented in this encounter Care Teams Locker Room Supervisor Relationship Specialty Start Date End Date Taylor Bryant APRN [address] [place] [address] PCP - General 03/31/10 documented as of this encounter
--- OUTSIDE RECORDS SUMMARY | 2023-12-05 02:29 | XMS_ITS | Encounter Summary ---
[place] [address] Care Team Providers Care City Sanitarian Name Role Phone Taylor Bryant APRN Primary Care Provider [phone] Reason for Referral * Diagnostic Test (Routine) - Closed Specialty Diagnoses / Procedures Referred By Crista padron Referred To Contact Radiology Diagnoses Psoriatic arthritis Procedures MRI Knee wo Contrast Left (Generic) Jad Prajapati MD [facility] DR ORTHOPAEDIC [place] [address] [facility] [address] Referral ID Status Reason Start Date Expiration Date V isits Requested Visits Authorized [id number] Closed Specialty Service Requested 06/09/2016 09/07/2016 1 1 Reason for Visit * Reason Comments Left Knee Pain s/p fal DOI: 6, hx of meniscal repair * Consultation (Routine) - Specialty Diagnoses / Procedures Referred By Crista padron Referred To Contact Orthopaedics Diagnoses Left knee pain Taylor Bryant APRN [address] [place] [phone] [facility] [address] [place] [phone] Referral ID Status Reason Start Date Expiration Date V isits Requested Visits Authorized [id number] Consult, Test & Treat Connection [facility] 04/28/2016 04/28/2017 1 1 Encounter Details Date Type Department Care Team (Late st Contact Info) Description 06/09/2016 2:00 PM EST Office Visit Orthopaedics at [facility] [place] [address] Carlos Caceres MD [facility] DR [place] [address] Psoriatic arthritis Social History Tobacco Use Types [...] Sign Reading Time Taken Comments Blood Pressure 136/85 06/09/2016 2:28 PM EST Pulse 79 06/09/2016 2:28 PM EST Temperature - - Respiratory Rate - - Oxygen Saturation - - Inhaled Oxygen Concentration - - Weight 83 kg (183 lb) 06/09/2016 2:28 PM EST in shoes Height 165.1 cm (5' 5) 06/09/2016 2:28 PM EST f ully clothed Body Mass Index 30.45 06/09/2016 2:28 PM EST documented in this encounter Progress Notes * Jad Prajapati - 06/09/2016 2:00 PM EST HISTORY OF PRESENT ILLNESS: This is a 51-year-old female who is coming in today for left knee pain. She has had left knee pain for about 1-2 years. She, 4 years ago, had a meniscectomy on this left side down at [facility] by the [facility]. She fell in April; it has gotten worse since then, and was on a period of time where it was difficult to stand and walk; however, that has kind of somewhat resolved. She does note a history of psoriatic arthritis for which sees a passenger service representative, currently only taking diclofenac. Activities are causing pain. Sitting and rest does not seem to cause it too much difficulty or things like this at this point. She has had 2 injections; one about a year ago did not help at all, and then one prior to that which seemed to help for a quite a long period of time. PAST MEDICAL HISTORY: Significant for psoriatic arthritis and depression. PAST SURGICAL HISTORY: Bilateral knee meniscectomies. MEDICATIONS: Diclofenac, fluoxetine. ALLERGIES: CODEINE. SOCIAL HISTORY: She does not smoke. She is not diabetic, and is not currently working. OBJECTIVE: Please see below. The left knee: She has diffuse tenderness, though, throughout the left knee, and also has some swelling on the suprapatellar and suprapatellar lateral regions. It seems uncharacteristic. She can flex up to about 105 degrees, different than her contralateral side which can flex up to 130. She can fully extend. She has a knee effusion. ASSESSMENT AND PLAN: This is a 51-year-old female. We could not review her x-rays today due to radiology viewer difficulty. However, it seems she has an acutely synovitic knee, so maybe some element of psoriatic arthritis. Due to the suprapatellar swelling and pain, we felt it was best to pursue an MRI of her left knee, which we will pursue today. Order: We also ordered the standing arthritic alignment, standing alignment views of her left knee. We will obtain these today and follow her up after her MRI is performed with Dr. Caceres for further evaluation to see what is occurring at this time. She was understanding of this, and we will see her back then. QUESTIONNAIRE RESPONSES: General Health, Prior Treatments, PreExisting Condition, Health Habits, About You 06/09/2016 PROMIS-10 General Health Good PROMIS-10 Quality of Life Poor PROMIS-10 Physical Health Good PROMIS-10 Mental Health Poor PROMIS-10 Social Activity Poor PROMIS-10 Everyday Activities Completely PROMIS-10 Pain 9 PROMIS-10 Fatigue Severe PROMIS-10 Social Roles Poor PROMIS-10 Anxious or Depressed Always PROMIS PHYSICAL SCORE (range 16-68) 39.8 PROMIS MENTAL SCORE (range 21-68) 21.2 Treatments Tried Weight loss, Heat and ice therapy, Brace Prior Surgery torn tez ALBA JR Scores 50.01 TKA Grade 3 Alzheimers or dementia No Cirrohosis or liver disease No HIV/AIDS No Pain in more than one joint in legs Yes Back or neck pain Yes Heart attack No Heart failure No Unclog/bypass leg arteries No Stroke, blood clot, TIA No Asthma No Emphysema, chronic bronchities, or COPD No Stomach ulcers/peptic ulcer disease No Diabetes No Poor kidney function No Rheumatic condtions Yes Take medications for rheumatic conditions Yes Cancer No Weight (lbs) 181 Height (feet) 5 feet Height (Inches) 3 BMI 32.05 (Obese) Ever used tobacco products Yes Tobacco frequency Never WHO - Tobacco Advice 0 (You are at low risk of health and other problems from your current pattern of use.) Ever used alcoholic beverages Yes Alcohol frequency Once or twice WHO - Alcohol Advice 2 (You are at low risk of health and other problems from your current pattern of use.) Live Alone Yes Marital situation / Schooling High school graduate or GED Combined Household Income $10,000 to less than $15,000 # People Supported 1 French, , No, not French// Race White Health Literacy Quite a bit Currently working No Not working because: Not working due to disability [facility] Response 06/09/2016 KOOS JR Scores 50.01 Spine [facility] Response 06/09/2016 KOOS JR Scores 50.01 ALLERGIES Allergies Allergen Reactions ??? Codeine Phosphate CIS - vomit Allergies to metals: None. SOCIAL HISTORY: reports that she has quit smoking. She has never used smokeless tobacco. She reports that she drinks alcohol. She reports that she does not use illicit drugs. Occupation: Not currently working SIGNIFICANT MEDICAL COMORBIDITIES: Patient Active Problem List Diagnosis Code ??? Psoriatic arthritis L40.50 VITALS: BP Readings from Last 1 Encounters: 06/09/16 136/85 Pulse Readings from Last 1 Encounters: 06/09/16 79 Height: 165.1 cm (5' 5) (fully clothed) Weight - Scale: 83 kg (183 lb) (in shoes) Body mass index is 30.45 kg/(m^2). PHYSICAL EXAM: Constitution: Keeley sits in the clinic today alert, appears stated age and cooperative. The patient is alert and oriented. I have made the following determinations: Knee Exam: Left Prior surgery on this joint: Yes Knee ROM: Extension:0 Flexion: 100 Alignment: 0-4 degrees and 5-11 degrees Varus Stability: A/P Translation <5mm Varus (lateral stability) <5mm Valgus (medial stability) <5mm Extension La degrees or less Radiographic evidence of joint damage: [0= normal; 1=minimal ; 2= some osteophytes , some narrowing ; 3= moderate osteophytes, significantnarrowing, mild deformity; 4= large osteophytes, marked narrowing, obvious deformity]: 2= some osteophytes, some narrowing Patella Tracking: Normal Skin Integrity: Normal Pulses Palpable: Left PT:Yes Left DP:Yes Motor/Sensory: Distal Motor:Normal Distal Sensory: Normal Quadriceps Strength:5 Knee Effusion: 2+ Ecchymosis: none Patella: Patellar apprehension test: positive Patellar compression test: positive Tenderness: medial joint line, lateral joint line, medial facet of the patella, lateral facet of the patella, medial femoral condyle, lateral femoral condyle, lateral tibial plateau, tibial tubercle and patellar tendon insertion * Carlos Caceres MD - 06/09/2016 2:00 PM EST I performed a history and physical examination of the patient and discussed the management plan with Jad Prajapati MD. I also discussed the different treatment options, as well as the risks and benefits of each with the patient and questions were answered. I reviewed the note and agree with the documented findings and plan of care. ?? This is a 51-year-old woman who comes in with long-standing left knee pain. She has previously undergone arthroscopic meniscal debridement on this knee. She has a history of psoriatic arthritis for which she takes oral diclofenac. She does see a passenger service representative in [facility] was considering starting Enbrel injections. She has had injections in the past and her left knee with varying degrees of success. The most recent injection was approximately a year ago with limited benefit. The left knee is diffusely painful and tender to palpation. She notes stiffness as well as swelling about the anterior knee. She does have difficulty with weightbearing on the knee. She denies any redness, warmth, w ounds, or drainage. Her range of motion is from approximately 5?? shy of full extension to approximately 95?? of flexion. She has increased pain at the extremes of motion. She is diffusely tender to palpation. There is an area of fullness with a palpable mass along the lateral aspect of her distal quadricep muscle. This does not appear to be related to any joint effusion. There is diffuse swelling on the anterior knee. At this point appears that she does have significant synovitis of the knee. We are unable to view x-rays today but the radiology report only describes minimal arthritis. At this point due to the significant synovitis as well as the mass along the lateral distal aspect of her thigh and would like for her to get an MRI of the knee to evaluate for any soft tissue pathology potentially associated with her psoriatic arthritis. If this is negative for any soft tissue tumor or mass and likely considera repeat injection in her knee. I discussed with her that given her age, her history of previous knee surgery, and her history of an inflammatory arthropathy that she has approximately a 1 and 5 chance of having an unsatisfactory outcome from knee replacement surgery. I like to see if we can get some more time with her rincon joints prior to replacement if this is the way she is going. Carlos Caceres MD 06/09/2016 documented in this encounter Plan of Treatment Upcoming Encounters Date Type Department Care Team (Late st Contact Info) Description 12/20/2023 2:15 PM EDT Office Visit Dermatology at [address] [address] Inderjit Vilchis MD [facility] DR GILBERTO [place] [address] 12/22/2023 10:00 AM EDT Office [place] [phone] Norm Joy PA [facility] [place] [address] 12/26/2023 11:45 AM EDT Appointment Hematology [place] [phone] 12/26/2023 12:45 PM EDT Office Visit Hematology [place] [phone] Jean-Pierre Peña MD [facility] HEMATOLOGY [place] [address] Vicky Burnham APRN [facility] [place] [address] 12/26/2023 2:30 PM EDT Appointment Hematology [place] [phone] 02/06/2024 10:00 AM EDT Appointment Hematology [place] [phone] 02/06/2024 12:45 PM EDT Office Visit Hematology [place] [phone] Jean-Pierre Peña MD [facility] DR HEMATOLOGY [place] [address] Vicky Burnham APRN [facility] [place] [address] 02/06/2024 2:00 PM EDT Appointment Hematology [place] [address] documented as of this encounter Results * MRI Knee wo Contrast Left (Generic) (06/28/2016 12:19 PM EST) Anatomical Region Laterality Modality Knee Left Magnetic Resonan ce Impressions 06/28/2016 1:28 PM EST 1. ??Oblique tear involving the body and posterior horn of the medial meniscus. 2. ??Nuclear degeneration of ACL. 3. ??Large knee joint effusion. 4. ??No bony erosion seen. Narrative 06/28/2016 1:28 PM EST EXAMINATION: MRI KNEE WO CONTRAST LEFT (GENERIC) CLINICAL HISTORY: Suprapatellar swelling and tenderness of psoriatic arthritis. TECHNIQUE: MRI of the left knee was performed without intravenous contrast. COMPARISON: 05/07/13 left knee MRI. Attention is also directed to the FINDINGS: Joint space and synovium: There is a knee joint effusion, large, partly imaged. There is no popliteal cyst. Bones and articular cartilage: No bony erosion is seen. There is no fracture or bone marrow edema. The articular cartilage is preserved. There are small marginal osteophytes at the medial compartment. Menisci: There is an oblique tear involving the body and posterior horn of the medial meniscus. The medial and lateral menisci are intact. Tendons and Ligaments: There is mucoid degeneration of the anterior cruciate ligament. The posterior cruciate ligament is normal. There is mild periligamentous edema along the medial collateral ligament, which could be secondary to the adjacent changes in The medial collateral ligament and lateral collateral ligament complex are intact. The extensor mechanism is unremarkable. Procedure Note Adia Pulido MD - 06/28/2016 EXAMINATION: MRI KNEE WO CONTRAST LEFT (GENERIC) CLINICAL HISTORY: Suprapatellar swelling and tenderness of psoriaticarthritis. TECHNIQUE: MRI of the left knee was performed without intravenouscontrast. COMPARISON: 05/07/13 left knee MRI. Attention is also directed to the FINDINGS: Joint space and synovium: There is a knee joint effusion, large, partlyimaged. There is no popliteal cyst. Bones and articular cartilage: No bony erosion is seen. There is nofracture or bone marrow edema. The articular cartilage is preserved. There are small marginal osteophytes at the medial compartment. Menisci: There is an oblique tear involving the body and posterior horn ofthe medial meniscus. The medial and lateral menisci are intact. Tendons and Ligaments: There is mucoid degeneration of the anteriorcruciate ligament. The posterior cruciate ligament is normal. There is mild periligamentous edema along the medial collateral ligament, which couldbe secondary to the adjacent changes in The medial collateral ligament andlateral collateral ligament complex are intact. The extensor mechanism isunremarkable. IMPRESSION 1. Oblique tear involving the body and posterior horn of the medialmeniscus. 2. Nuclear degeneration of ACL. 3. Large knee joint effusion. 4. No bony erosion seen. Carlos Caceres MD IMG MRI ORDERABLES documented in this encounter Visit Diagnoses Diagnosis Psoriatic arthritis Psoriatic arthropathy Psoriatic arthritis Psoriatic arthropathy documented in this encounter Care Teams City Sanitarian Relationship Specialty Start Date End Date Taylor Bryant APRN [address] [place] [address] PCP - General 03/31/10 documented as of this encounter
--- OUTSIDE RECORDS SUMMARY | 2023-12-05 02:29 | XMS_ITS | Encounter Summary ---
Author Organization [facility] [place] [address] Care Team Providers Care Osd Clerk Name Role Phone Taylor Bryant APRN Primary Care Provider [phone] Reason for Referral * Consultation (Routine) - Authorized Specialty Diagnoses / Procedures Referred By Crista apdron Referred To Contact Dermatology Diagnoses Pigmented skin lesion suspicious for malignant neoplasm Taylor Bryant APRN [address] [place] [address] [facility] Dermatology [address] [place] [address] Referral ID Status Reason Start Date Expiration Date Visits Requested Visits Authorized [id number] Authorized Consult, Test & Treat PCP Updated and/or Approved 06/25/2023 06/24/2024 6 6 Encounter Details Date Type Department Care Team (Latest Contact Info) Description 06/25/2023 Transcribe Orders eDH Incoming Referrals [phone] Taylor Bryant APRN [address] [place] [address] Pigmented skin lesion suspicious for malignant neoplasm Social History Tobacco Use Types Packs/Day Years [...] Office Visit Dermatology at [facility] [place] [phone] Inderjit Vilchis MD [facility] DR GILBERTO [place] [address] 12/22/2023 10:00 AM EDT Office Visit [place] [phone] Norm Joy PA [facility] OTOLARYNGOLOGY [place], [place] [phone] 12/26/2023 11:45 AM EDT Appointment Hematology [place] [address] 12/26/2023 12:45 PM EDT Office Visit Hematology [place] [address] Jean-Pierre Peña MD [facility] DR HEMATOLOGY AND ONCOLOGY [place], [place] [phone] Vicky Burnham APRN [facility] [place] [address] 12/26/2023 2:30 PM EDT Appointment Hematology [place] [phone] 02/06/2024 10:00 AM EDT Appointment Hematology [place] [address] 02/06/2024 12:45 PM EDT Office Visit Hematology [place] [phone] Jean-Pierre Peña MD [facility] [place] [address] Vicky Burnham APRN [facility] [place] [address] 02/06/2024 2:00 PM EDT Appointment Hematology [place] [address] Scheduled Referrals Name Type Priority Associated Diagnoses Order Schedule Referral to Dermatology Outpatient Referral Routine Pigmented skin lesion suspicious for malignant neoplasm Ordered: 06/25/2023 documented as of this encounter Visit Diagnoses Diagnosis Pigmented skin lesion suspicious for malignant neoplasm documented in this encounter Care Teams Osd Clerk Relationship Specialty Start Date End Date Taylor Bryant APRN [address] [place] [address] PCP - General 03/31/10 documented as of this encounter
--- OUTSIDE RECORDS SUMMARY | 2023-12-05 02:29 | XMS_ITS | Encounter Summary ---
Author Organization [facility] Address [facility] [place] [address] Care Team Providers Care Winder Operator Name Role Phone Taylor Bryant APRN Primary Care Provider [phone] Reason for Visit * Consultation (Routine) - Closed Specialty Diagnoses / Procedures Referred By Crista padron Referred To Contact Rheumatology Diagnoses Arthropathic psoriasis, unspecified Taylor Bryant APRN [address] [place] [id number] [facility] [address] [place] [id number] Referral ID Status Reason Start Date Expiration Date V isits Requested Visits Authorized [id number] Closed Consult, Test & [facility] PCP Updated and/or Approved 07/09/2020 07/09/2021 6 6 Encounter Details Date Type Department Care Team ([facility] st Contact Info) Description 07/31/2020 3:00 PM EDT Office [place] [address] [facility] [place] [address] Psoriatic arthritis; Effusion of left knee; Medication [...] Sign Reading Time Taken Comments Blood Pressure 132/83 07/31/2020 3:14 PM EDT Pulse 86 07/31/2020 3:14 PM EDT Temperature 36.4 ??C (97.5 ??F) 07/31/2020 3:14 PM ED T Respiratory Rate 16 07/31/2020 3:14 PM EDT Oxygen Saturation 100% 07/31/2020 3:14 PM EDT Inhaled Oxygen Concentration - - Weight 82.4 kg (181 lb 9.6 oz) 07/31/2020 3:14 P M EDT Height 160 cm (5' 3) 07/31/2020 3:14 PM EDT Body Mass Index 32.17 07/31/2020 3:14 PM EDT documented in this encounter Progress Notes * Seamus Rosario MD - 07/31/2020 3:00 PM EDT Rheumatology Consult Note Reason for Consult: Keeley Gutierrez presents today at the request of Taylor Bryant APRN for evaluation of Hx of PsA I have reviewed the provided records, pertinent records available at the time of the [facility] appointment with in the medical record and any forms completed by the patient. These have been scanned into the medical record for future review. HPI: Keeley Gutierrez is a 55 y.o. female who presents today for evaluation of she as Enrbel followed by Dr reynolds For PsA. She has chronic left knee effusion and polyarticular joint pain. She has beenseen by orthopedics in the past has had injections and aspiration which daniel been sent to testing. She has profound morning stiffness. No there joints ar swollen, red or warm. She takes ibuprofen twice a day .She has remote history of knee swelling and meniscal surgery on the left. No hx of hepatitis, HIV on MS. Her psoriasis has been otherwise okay. But she does report polyarthralgia the hands feet ankles knees and hips. She is scheduled to see orthopedic for her left knee. She takes ibuprofen 3 times a day Patient's medications, allergies, past medical, surgical, social and family histories were reviewedand updated as appropriate. Physical Exam: BP 132/83 Pulse 86 Temp 36.4 ??C (97.5 ??F) (Temporal) Resp 16 Ht 160 cm (5' 3) Wt 82.4 kg (181 lb 9.6 oz) SpO2 100% BMI 32.17 kg/m?? General: NAD HEENT: Mucous membranes are moist, no oral mucosal ulcerations, temporal artery non-palpable Neck: Supple, no lymphadenopathy, full range of motion. Cardiovascular: RR, (-)murmurs, rubs, or gallops. Lungs: Clear to auscultation bilaterally. (-)R/R/W Abdomen: Soft, non tender, non distended, + bowel sounds Neuro: Alert and oriented x3. Cranial nerves !II through XII grossly intact. - Strength 5/5 throughout, Skin: (-)ulcers, red mccarthy on the arms possibly sites of previous psoriasis no nail pitting noted. Vascular: Pulses are equal in all extremities. MSK Back: Non tender over the spine and costovertebral angles bilaterally. (-)Gavin Extremities Shoulders: FROM, non-tender to palpation Elbows:FROM, (-)pain, (-)nodules Wrists: FROM, no swelling, non-tender Hands: No synovitis, no MCP compression tenderness, full claw and fist Hips: FROM, (-) fader (-gavin) Knees: (-)effusions, non-tender ROM Ankles: FROM, non-tender, no swelling Feet: no MTP compression tenderness Spine, shoulders, elbows, wrists, fingers, hips, knees and ankles; no active swelling, tenderness or synovitis at any joint. No soft tissue nodules. Labs: Studies: After consent was obtained, using sterile technique the left knee was prepped with idoine. PROCEDURE NOTE: After verbal consent, risk discussed with patient and following appropriate confirmation of the correct site, a timeout was done at 338 the left knee was cleansed was cleansed using povidone-iodine swabs x3. Using a 20-gauge needle was inserted suprapatella left knee entering the space. Unfortunately no fluid was obtained with a dry tap raising the concern for potential lculated. Post aspirationsinstructions were discussed Assessment and Recommendation: Keeley Gutierrez is a 55 y.o. female who presents today with with history of psoriatic arthritis previously followed by Dr. Oliva had been previously on Enbrel. She has [...] completed both possible orthopedist intervention and vaccination. Left knee effusion and pain-likely secondary to psoriatic arthritis-do feel there is benefit with aspiration and sending for cell count culture and crystal- the potential of loculated with dry tap is concerning-based on the chronicity unlikely infectious-since dry tap did discuss an alternate approach to see if we are able to get fluid out-patient deferred since she is seeing Ortho at the end of the month. Psoriatic arthritis-history of psoriasis-risk benefits of medications restarting Enbrel discussed-will wait till after orthopedist eval of potential surgery necessary Orders Placed This Encounter Procedures ??? Body Fluid Culture, Aerobic Synovial Fluid ??? XR Sacroiliac Joints (GENERIC) ??? XR Lumbar Spine 2 Or 3 Views (Generic) ??? CRP, acute inflammation ??? CBC (with Diff) ??? Creatinine ??? Hepatic Function Panel ??? Sedimentation rate ??? HLA-B27 ??? Rheumatoid factor, quant ??? Cyclic Citrullinated Peptide ??? Hepatitis B Surface Antibody ??? Hepatitis C Antibody ??? QuantiFERON-TB Gold ??? Hepatitis B Surface Antigen ??? Hepatitis B Core Antibody, Total ??? HIV Screen, 4th Generation ([facility]/CGP/APD/NLH) ??? Crystal Exam Body Fluid ??? Cell Count Body Fluid ??? Hemogram ??? Differential, Automated Return in about 4 weeks (around 08/28/2020) for Telehealth. documented in this encounter Plan of Treatment Upcoming Encounters Date Type Department Care Team (Late st Contact Info) Description 12/20/2023 2:15 PM EDT Office Visit Dermatology at [facility] [address] [place] [address] [facility] [address] GILBERTO [place] [address] 12/22/2023 10:00 AM EDT Office Visit Otolaryngology at [place] [address] [facility] [place] [address] 12/26/2023 11:45 AM EDT Appointment Hematology and Oncology at [place] [address] 12/26/2023 12:45 PM EDT Office Visit Hematology and Oncology at [place] [address] Jean-Pierre Peña MD [facility] DR HEMATOLOGY [place] [address] [facility] [place] [address] 12/26/2023 2:30 PM EDT Appointment Hematology and Oncology at [place] [address] 02/06/2024 10:00 AM EDT Appointment Hematology and Oncology at [address] 02/06/2024 12:45 PM EDT Office Visit Hematology and Oncology at [address] Jean-Pierre Peña MD [facility] DR HEMATOLOGY [place] [address] [facility] [place] [address] 02/06/2024 2:00 PM EDT Appointment Hematology [place] [address] documented as of this encounter Procedures Procedure Name Priority Date/Time Associated Diagnosis Comments HC C-REACTIVE PROTEIN Routine 07/31/2020 4:37 PM EDT Psoriatic arthritis Effusion of left knee Medication monitoring encounter High risk medication use HC QUANTIFERON Routine 07/31/2020 4:37 PM EDT Psoriatic arthritis Effusion of left knee Medication monitoring encounter High risk medication use HC CYCLIC CITRULLINE PEPTIDE Routine 07/31/2020 4:37 PM EDT Psoriatic arthritis Effusion of left knee Medication monitoring encounter High risk medication use HEMOGRAM Routine 07/31/2020 4:37 PM EDT Psoriatic arthritis Effusion of left knee Medication monitoring encounter High risk medication use DIFFERENTIAL, AUTOMATED Routine 07/31/2020 4:37 PM EDT Psoriatic arthritis Effusion of left knee Medication monitoring encounter High risk medication use HC CREATININE Routine 07/31/2020 4:37 PM EDT Psoriatic arthritis Effusion of left knee Medication monitoring encounter High risk medication use HC HLA-B27 Routine 07/31/2020 4:37 PM EDT Psoriatic arthritis Effusion of left knee Medication monitoring encounter High risk medication use HC HEPATITIS C ANTIBODY Routine 07/31/2020 4:37 PM EDT Psoriatic arthritis Effusion of left knee Medication monitoring encounter High risk medication use HC HEPATITIS B CORE AB Routine 07/31/2020 4:37 PM EDT Psoriatic arthritis Effusion of left knee Medication monitoring encounter High risk medication use HC HIV SCREEN, 4TH GENERATION Routine 07/31/2020 4:37 PM EDT Psoriatic arthritis Effusion of left knee Medication monitoring encounter High risk medication use HC HEPATITIS B SURFACE AB Routine 07/31/2020 4:37 PM EDT Psoriatic arthritis Effusion of left knee Medication monitoring encounter High risk medication use HC HEPATITIS B SURFACE AG Routine 07/31/2020 4:37 PM EDT Psoriatic arthritis Effusion of left knee Medication monitoring encounter High risk medication use HC ESR-SEDIMENTATION RATE, BLOOD Routine 07/31/2020 4:37 PM EDT Psoriatic arthritis Effusion of left knee Medication monitoring encounter High risk medication use HC CBC,PLT & AUTO DIFF Routine 07/31/2020 4:37 PM EDT Psoriatic arthritis Effusion of left knee Medication monitoring encounter High risk medication use HC RHEUMATOID FACTOR Routine 07/31/2020 4:37 PM EDT Psoriatic arthritis Effusion of left knee Medication monitoring encounter High risk medication use HEPATIC FUNCTION PANEL Routine 07/31/2020 4:37 PM EDT Psoriatic arthritis Effusion of left knee Medication monitoring encounter High risk medication use documented in this encounter Results * Differential, Automated (07/31/2020 4:37 PM EDT) Neutrophils % 61.0 % [facility] Neutr Abs (ANC) 4.65 1.70 - 6.10 x10(3)/[facility] Lymphocytes % 28.3 % [facility] Lymphocytes Abs 2.2 0.9 - 3.2 x10(3)/[facility] Monocytes % 7.2 % [facility] Monocyte Abs 0.6 0.3 - 0.9 x10(3)/[facility] Eosinophils % 2.4 % [facility] Eosinophils Abs 0.2 0.0 - 0.4 x10(3)/[facility] Basophils % 0.8 % [facility] Basophils Abs 0.1 0.0 - 0.1 x10(3)/[facility] Immature Gran % 0.30 % [facility] Comment: Immature granulocytes(IG's)percentage and absolute count will include metamyelocytes, myelocytes, and promyelocytes. Blood smears from CBCs yielding IG's will be scanned manually for concordance. If this scan disagrees with the automated IG or if promyelocytes are noted, a manual differential will be performed. Funmi Gran Abs 0.02 0.00 - 0.04 x10(3)/[facility] Blood specimen (specimen) 07/31/2020 4:37 PM EDT 07/31/2020 4:50 PM EDT Narrative Resulting Agency Comment Spec In Lab Seamus Rosario MD HEMATOLOGY ORDERABLE S [facility] [address] * (ABNORMAL) Hemogram (07/31/2020 4:37 PM EDT) WBC 7.6 4.0 - 9.5 x10(3)/[facility] RBC 3.94(L) 4.00 - 5.21 x10(6)/[facility] Hemoglobin 12.4 11.7 - 15.5 gm/dL [facility] Hematocrit 36.7 35.7 - 45.8 % [facility] MCV 93.1 82.6 - 94.4 [facility] MCH 31.5 27.1 - 32.0 pg [facility] MCHC 33.8 31.7 - 35.0 gm/dL [facility] Platelets 332 145 - 357 x10(3)/[facility] RDWSD 45.3 37.0 - 46.0 [facility] RDWCV 13.2 11.5 - 14.1 % [facility] MPV 11.2 7.6 - 12.9 [facility] nRBC % Auto 0.0 % [facility] nRBC Abs Auto 0.000 0.000 - 0.000 x10(3)/[facility] Blood specimen (specimen) 07/31/2020 4:37 PM EDT 07/31/2020 4:50 PM EDT Narrative Resulting Agency Comment Spec In Lab Seamus Rosario MD HEMATOLOGY ORDERABLE S Performing Organization Address City/[facility]/ZIP Co de Phone Number [facility] [place] [address] * CRP, acute inflammation (07/31/2020 4:37 PM EDT) CRP 4.3 <=4.9 mg/L [facility] Blood specimen (specimen) 07/31/2020 4:37 PM EDT 07/31/2020 4:50 PM EDT Narrative Resulting Agency Comment Spec In Lab Seamus Rosario MD CHEMISTRY ORDERABLES Performing Organization Address [facility] Co de Phone Number [facility] [place] [address] * Hepatic Function Panel (07/31/2020 4:37 PM EDT) Total Protein 6.9 6.1 - 8.0 gm/dL [facility] Albumin 4.2 3.2 - 5.2 gm/dL [facility] AST 15 0 - 30 unit/L [facility] ALT 14 0 - 30 unit/L [facility] Alk Phos 73 35 - 105 unit/L [facility] Total Bilirubin 0.3 0.2 - 1.3 mg/dL [facility] Bili, Direct 0.1 0.0 - 0.3 mg/dL [facility] Blood specimen (specimen) 07/31/2020 4:37 PM EDT 07/31/2020 4:50 PM EDT Narrative Resulting Agency Comment Spec In Lab Seamus Rosario MD CHEMISTRY ORDERABLES Performing Organization Address [facility]/ZIP Co de Phone Number [facility] [place] [address] * Creatinine (07/31/2020 4:37 PM EDT) Creatinine 0.82 0.70 - 1.20 mg/dL [facility] Estimated GFR 81 >=60 mL/min/1. 73 m?? [facility] Comment: This patient? s estimated glomerular filtration rate (eGFR) is between 81 mL/min/1.73 m2 (patients with less muscle mass) and 93 mL/min/1.73 m2 (patients with more muscle mass) as determined by the CKD-EPI equation. Assessment of eGFR is not appropriate when creatinine concentrations are rapidly changing. For clinical decisions where creatinine clearance will affect therapy, a 24-hour urine creatinine clearance may be advised. Assignment of CKD stage 1 - 5 for patients with an eGFR near the transition point between stages may be based on clinical assessment of muscle mass and symptoms in addition to eGFR. Blood specimen (specimen) 07/31/2020 4:37 PM EDT 07/31/2020 4:50 PM EDT Narrative Resulting Agency Comment Spec In Lab Seamus Rosario MD CHEMISTRY ORDERABLES Performing Organization Address City/[facility]/ZIP Co de Phone Number [facility] [place] [address] * Sedimentation rate (07/31/2020 4:37 PM EDT) Sed Rate 16 2 - 39 mm/hr [facility] Comment: Effective April 18, 2019 new capillary photometric technology has resulted in a change in reference ranges. It is recommended that each ESR result be reviewed with its own age appropriate reference range. Blood specimen (specimen) 07/31/2020 4:37 PM EDT 07/31/2020 4:50 PM EDT Narrative Resulting Agency Comment Spec In Lab Seamus Rosario MD HEMATOLOGY ORDERABLE S [facility] [place] [address] * HIV Screen, 4th Generation ([facility]/CGP/APD/NLH) (07/31/2020 4:37 PM EDT) HIV-1/2 Ab and Ag Negative Negative [facility] Comment: This 4th Generation HIV test [...] Lab Seamus Rosario MD IMMUNOLOGY ORDERABLE S Performing Organization Address [facility] Co de Phone Number [facility] [place] [address] * Hepatitis B Core Antibody, Total (07/31/2020 4:37 PM EDT) Hep B Core Ab Negative Negative [facility] Blood specimen (specimen) 07/31/2020 4:37 PM EDT 07/31/2020 4:50 PM EDT Narrative Resulting Agency Comment Spec In Lab Seamus Rosario MD CHEMISTRY ORDERABLES Performing Organization Address [facility] Co de Phone Number [facility] [place] [address] * Hepatitis B Surface Antigen (07/31/2020 4:37 PM EDT) HepB Surface Ag Negative Negative [facility] Blood specimen (specimen) 07/31/2020 4:37 PM EDT 07/31/2020 4:50 PM EDT Narrative Resulting Agency Comment Spec In Lab Seamus Rosario MD CHEMISTRY ORDERABLES Performing Organization Address [facility] Co de Phone Number [facility] [place] [address] * QuantiFERON-TB Gold (07/31/2020 4:37 PM EDT) QFT Nil 0.020 IU/mL [facility] QFT TB Ag1-Nil 0.010 IU/mL [facility] QFT TB Ag2-Nil 0.000 IU/mL [facility] QFT Mitogen-Nil 8.040 IU/mL [facility] Quantiferon TB Negative Negative [facility] Quantiferon TB Interp M. tuberculosis infection NOT likely A negative specimen should have a TB1 Ag minus Nil value and TB2 Ag minus Nil value of less than 0.35 IU/mL OR a TB1 Ag minus Nil or TB2 Ag minus Nil value greater than or equal to 0.35 IU/mL AND a TB Ag minus Nil value from the same tube of less than 25% of the Nil value. A negative specimen must also have a mitogen minus Nil value greater than or equal to 0.5 IU/mL. A negative QFT-Plus result does not preclude the possibility of M. tuberculosis infection. False negative results can occur due to stage of infection (specimen obtained prior to the development of immune response), co-morbid conditions which affect immune function, or other immunological factors. [facility] Comment: The performance of the QFT-Plus assay has not been extensively evaluated with specimens from the following individuals: Individuals who have impaired or altered immune functions, such as those who have HIV infection or AIDS, those who have transplantation managed with immunosuppressive treatment or others who receive immunosuppressive drugs (e.g., corticosteroids, methotrexate, azathioprine, cancer chemotherapy), those who have other clinical conditions, such as diabetes, silicosis, chronic renal failure, and hematological disorders (e.g., leukemia and lymphomas), or those with other specific malignancies (e.g., carcinoma of the head or neck and lung). Individuals younger than age 17 years women. Diagnosis of, or the exclusion of tuberculosis disease, and assessment of Latent Tuberculosis Infection (LTBI) requires a combination of epidemiological, historical, Medical and diagnostic findings that should be taken into account when interpreting QFT-Plus results. Blood specimen (specimen) 07/31/2020 4:37 PM EDT 08/01/2020 2:41 PM EDT Narrative Resulting Agency Comment Spec In Lab Seamus Rosario MD CHEMISTRY ORDERABLES Performing Organization Address [facility] Co de Phone Number [facility] [place] [address] * Hepatitis C Antibody (07/31/2020 4:37 PM EDT) Hepatitis C Ab Negative Negative [facility] Blood specimen (specimen) 07/31/2020 4:37 PM EDT 07/31/2020 4:50 PM EDT Narrative Resulting Agency Comment Spec In Lab Seamus Rosario MD IMMUNOLOGY ORDERABLE S Performing Organization Address [facility] de Phone Number [facility] [place] [address] * Hepatitis B Surface Antibody (07/31/2020 4:37 PM EDT) HepB Surface Ab Quant <3.5 IU/L [facility] Comment: HepB Surface Ab Quant: Unvaccinated: < 8.5 IU/L Vaccinated: > 11.5 IU/L HepB Surface Ab Negative [facility] Comment: Patient is presumed to be not vaccinated or immune to HBV infection. Expected Results: Vaccinated: Positive Unvaccinated: Negative Blood specimen (specimen) 07/31/2020 4:37 PM EDT 07/31/2020 4:50 PM EDT Narrative Resulting Agency Comment Spec In Lab Seamus Rosario MD IMMUNOLOGY ORDERABLE S Performing Organization Address [facility] Co de Phone Number [facility] [place] [address] * Cyclic Citrullinated Peptide (07/31/2020 4:37 PM EDT) Anti-Cyc Cit Peptide <0.5 <=4.9 unit/mL [facility] Blood specimen (specimen) 07/31/2020 4:37 PM EDT 07/31/2020 4:50 PM EDT Narrative Resulting Agency Comment Spec In Lab Seamus Rosario MD CHEMISTRY ORDERABLES [facility] [place] [address] * Rheumatoid factor, quant (07/31/2020 4:37 PM EDT) RF <10 <=14 IU/mL [facility] Blood specimen (specimen) 07/31/2020 4:37 PM EDT 07/31/2020 4:50 PM EDT Narrative Resulting Agency Comment Spec In Lab Seamus Rosario MD IMMUNOLOGY ORDERABLE S Performing Organization Address [facility]/ZIP Co de Phone Number [facility] [place] [address] * HLA-B27 (07/31/2020 4:37 PM EDT) HLA-B27 Positive [facility] HLA-B27 Interp HLA B27 antigen was detected. Approximately 8% of the normal population carries the HLA B27 antigen. HLA B27 is present in approximately 89% of patients with ankylosing spondylitis, 79% of patients with Eleuterio's syndrome and 42% of patients with juvenile rheumatoid arthritis. However, lacking other data, it is not diagnostic for these disorders. Method: Flow Cytometry Reference: 1. Jon DA, Miller FD, Clarke A, et al: Ankylosing spondylitis and HLA-27. Lancet 1973;1:904-907 2. Neil J, Alice TOMLIN: HLA-B27 typing by the use of flow cytofluorometry. Clin Chem 1987;33:7593-7622 [facility] WBC 7.6 4.0 - 9.5 x10(3)/m cL [facility] Blood specimen (specimen) 07/31/2020 4:37 PM EDT 07/31/2020 4:50 PM EDT Narrative Resulting Agency Comment Spec In Lab Seamus Rosario MD HEMATOLOGY ORDERABLE S [facility] [place] [address] documented in this encounter Visit Diagnoses Diagnosis Psoriatic arthritis Psoriatic arthropathy Effusion of left knee Effusion of lower leg joint Medication monitoring encounter Encounter for therapeutic drug monitoring High risk medication use Encounter for long-term (current) use of other medications Chronic bilateral low back pain without sciatica Bilateral hip pain Pain in joint, pelvic region and thigh documented in this encounter Care Teams Winder Operator Relationship Specialty Start Date End Date Taylor Bryant APRN [address] [place] [address] PCP - General 03/31/10 documented as of this encounter
--- OUTSIDE RECORDS SUMMARY | 2023-12-05 02:29 | XMS_ITS | Encounter Summary ---
Author Organization [facility] Address [facility] [place] [address] Care Team Providers Care Director Of Scientific Research Name Role Phone Taylor Bryant APRN Primary Care Provider [phone] [phone] Encounter Details Date Type Department Care Team (Late st Contact Info) Description 04/20/2016 - 04/20/2016 11:59 PM [facility] Hospital Encounter [place] [address] Carlos Caceres MD [facility] [place] [address] Pain Discharge Disposition: Home Social History Tobacco [...] 2:15 PM EDT Office Visit Dermatology at [facility] [address] [place] [phone] Inderjit Vilchis MD [facility] DR GILBERT[place] [address] 12/22/2023 10:00 AM EDT Office Visit Otolaryngology at [place] [phone] Norm Joy PA [facility] [place] [address] 12/26/2023 11:45 AM EDT Appointment Hematology and Oncology at [address] 12/26/2023 12:45 PM EDT Office Visit Hematology and Oncology at [place] [address] Jean-Pierre Peña MD [facility] DR HEMATOLOGY [place] [address] Vicky Burnham APRN [facility] [place] [address] 12/26/2023 2:30 PM EDT Appointment Hematology and Oncology at [place] [address] 02/06/2024 10:00 AM EDT Appointment Hematology and Oncology at [place] [phone] 02/06/2024 12:45 PM EDT Office Visit Hematology and Oncology at [place] [phone] Jean-Pierre Peña MD [facility] DR [place] [address] Vicky Burnham APRN [facility] [place] [address] 02/06/2024 2:00 PM EDT Appointment Hematology and Oncology at [place] [phone] documented as of this encounter Procedures Procedure Name Priority Date/Time Associated Diagnosis Comments FILM LIBRARY STORAGE ONLY DX KNEE Routine 04/20/2016 12:00 AM EST Pain documented in this encounter Results * Film Library- Storage Only DX Knee (04/20/2016 12:00 AM EST) Narrative [facility] - 06/09/2016 3:06 PM EST This exam is for storage only and is auto-finalizing. Carlos Caceres MD G FILM LIBRARY ORD ERABLES [place], [place] documented in this encounter Visit Diagnoses Diagnosis Pain Generalized pain documented in this encounter Care Teams Director Of Scientific Research Relationship Specialty Start Date End Date Taylor Bryant APRN [address] [place] [address] PCP - General 03/31/10 documented as of this encounter
--- OUTSIDE RECORDS SUMMARY | 2023-12-05 02:29 | XMS_ITS | Encounter Summary ---
Author Organization [facility] Address [facility] [place] [address] Care Team Providers Care Sealing Machine Operator Name Role Phone Taylor Bryant APRN Primary Care Provider [phone] [phone] Reason for Visit * Reason Comments Specialty Pharmacy Review Enbrel (etaner cept) Encounter Details Date Type Department Care Team (Late st Contact Info) Description 02/09/2021 Specialty [place] [phone] Licha Yanes, [facility] Social History Tobacco Use Types Packs/Day Years [...] as of this encounter Progress Notes * Licha Yanes - 02/09/2021 11:59 PM EDT [facility] has completed a benefits investigation for Keeley Gutierrez to review their eligibility to fill at [facility]. Per patient's medication list they are prescribed Enbrel (etanercept) and the medication is not able to be filled at the [facility]; patient is not currently on a specialty medication. documented in this encounter Plan of Treatment Upcoming Encounters Date Type Department Care Team (Late st Contact Info) Description 12/20/2023 2:15 PM EDT Office Visit Dermatology at [facility] [address] [place] [address] Inderjit Vilchis MD [facility] DR GILBERTO [place] [address] 12/22/2023 10:00 AM EDT Office Visit Otolaryngology at [place] [address] Norm Joy PA [facility] [place] [address] 12/26/2023 11:45 AM EDT Appointment Hematology and Oncology at [address] 12/26/2023 12:45 PM EDT Office Visit Hematology and Oncology at [place] [phone] Jean-Pierre Peña MD [facility] [address] [place] [address] Vicky Burnham APRN [facility] [place] [address] 12/26/2023 2:30 PM EDT Appointment Hematology and Oncology at [place] [phone] 02/06/2024 10:00 AM EDT Appointment Hematology and Oncology at [place] [phone] 02/06/2024 12:45 PM EDT Office Visit Hematology and Oncology at [place] [phone] Jean-Pierre Peña MD [facility] [place] [address] Vicky Burnham APRN [facility] [place] [address] 02/06/2024 2:00 PM EDT Appointment Hematology [place] [address] documented as of this encounter Visit Diagnoses Not on filedocumented in this encounter Care Teams Sealing Machine Operator Relationship Specialty Start Date End Date Taylor Bryant APRN [address] [place] [address] PCP - General 03/31/10 documented as of this encounter
--- OUTSIDE RECORDS SUMMARY | 2023-12-05 02:29 | XMS_ITS | Encounter Summary ---
Author Organization [facility] Address [facility] [place] [address] Care Team Providers Care Gas Line Servicer Name Role Phone Taylor Bryant APRN Primary Care Provider [phone] Encounter Details Date Type Department Care Team (Late st Contact Info) Description 06/09/2016 Orders [place] [phone] Carlos Caceres MD [facility] DR [place] [address] Social History Tobacco Use Types Packs/Day Years [...] 2:15 PM EDT Office Visit Dermatology at [address] [address] Inderjit Vilchis MD [facility] DR GILBERTO [place] [address] 12/22/2023 10:00 AM EDT Office Visit [place] [phone] Norm Joy PA [facility] [place] [address] 12/26/2023 11:45 AM EDT Appointment Hematology and Oncology at [place] [address] 12/26/2023 12:45 PM EDT Office Visit Hematology and Oncology at [place] [address] Jean-Pierre Peña MD [facility] DR HEMATOLOGY [place] [address] Vicky Burnham APRN [facility] [place] [address] 12/26/2023 2:30 PM EDT Appointment Hematology and Oncology at [place] [address] 02/06/2024 10:00 AM EDT Appointment Hematology and Oncology at [place] [address] 02/06/2024 12:45 PM EDT Office Visit Hematology and Oncology at [place] [address] Jean-Pierre Peña MD [facility] DR HEMATOLOGY [place] [address] Vicky Burnham PRINCIPAL GIFTS OFFICER [facility] [place] [address] 02/06/2024 2:00 PM EDT Appointment Hematology and Oncology at [address] documented as of this encounter Visit Diagnoses Not on filedocumented in this encounter Care Teams Gas Line Servicer Relationship Specialty Start Date End Date Taylor Bryant APRN [address] [place] [address] PCP - General 03/31/10 documented as of this encounter
--- OUTSIDE RECORDS SUMMARY | 2023-12-05 02:29 | XMS_ITS | Encounter Summary ---
Author Organization [facility] [place] [address] Care Team Providers Care Manager Software Development Name Role Phone AnnetteTaylor ZARA Primary Care Provider [phone] [phone] Reason for Referral * Diagnostic Test (Routine) - Closed Specialty Diagnoses / Procedures Referred By Contac t Referred To Contact Radiology Diagnoses Psoriatic arthritis Procedures MRI Knee wo Contrast Left (Generic) Jad Prajapati MD [facility] [address] [place] [address] [place] [address] Referral ID Status Reason Start Date Expiration Date V isits Requested Visits Authorized [id number] Closed Specialty Service Requested 06/09/2016 09/07/2016 1 1 Reason for Visit * Diagnostic Test (Routine) - Closed Specialty Diagnoses / Procedures Referred By Contac t Referred To Contact Radiology Diagnoses Psoriatic arthritis Procedures MRI Knee wo Contrast Left (Generic) Jad Prajapati MD [facility] DR [place] [address] [place] [address] Referral ID Status Reason Start Date Expiration Date V isits Requested Visits Authorized [id number] Closed Specialty Service Requested 06/09/2016 09/07/2016 1 1 Encounter Details Date Type Department Care Team (Late st Contact Info) Description 06/28/2016 11:10 AM EST - 06/28/2016 11:59 PM EST Hospital Encounter MRI at [place] [phone] Carlos Caceres MD [facility] [place] [address] Psoriatic arthritis Discharge Disposition: Home Social History [...] 2:15 PM EDT Office Visit Dermatology at [address] [address] Inderjit Vilchis MD [facility] DR GILBERTO STERLING-DERMATOLOGY [place], [place] [phone] 12/22/2023 10:00 AM EDT Office [place] [address] Norm Joy PA [facility] OTOLARYNGOLOGY [place], [place] [phone] 12/26/2023 11:45 AM EDT Appointment Hematology [place] [address] 12/26/2023 12:45 PM EDT Office Visit [place]ology [place] [address] Jean-Pierre Peña MD [facility] HEMATOLOGY AND ONCOLOGY [place], [place] [phone] Vicky Burnham APRN [facility] [place] [address] 12/26/2023 2:30 PM EDT Appointment Hematology [place] [address] 02/06/2024 10:00 AM EDT Appointment Hematology [place] [address] 02/06/2024 12:45 PM EDT Office Visit Hematology [place] [address] Jean-Pierre Peña MD [facility] DR [place] [address] Vicky Burnham APRN [facility] [place] [address] 02/06/2024 2:00 PM EDT Appointment Hematology [place] [address] documented as of this encounter Procedures Procedure Name Priority Date/Time Associated Diagnosis Comments MRI KNEE LEFT WO CONTRAST Routine 06/28/2016 12:19 PM EST Psoriatic arthritis documented in this encounter Results * MRI Knee wo [...] arthropathy documented in this encounter Care Teams Manager Software Development Relationship Specialty Start Date End Date Taylor Bryant, ZARA [address] [place] [address] PCP - General 03/31/10 documented as of this encounter
--- OUTSIDE RECORDS SUMMARY | 2023-12-05 02:29 | XMS_ITS | Encounter Summary ---
Author Organization [facility] Address [facility] [place] [address] Care Team Providers Care Water Pump Installer Name Role Phone Taylor Bryant APRN Primary Care Provider [phone] [phone] Reason for Referral * Consultation (Routine) - Closed Specialty Diagnoses / Procedures Referred By Crista padron Referred To Contact Rheumatology Diagnoses Psoriatic arthritis Carlos Caceres MD [facility] [place] [address] [facility] [address] [place] [address] Referral ID Status Reason Start Date Expiration Date V isits Requested Visits Authorized [id number] Closed Consult, Test & Treat 12/14/2017 12/14/2018 1 1 Reason for Visit * Reason Comments Follow-up bilat knee pain Encounter Details Date Type Department Care Team ([facility] st Contact Info) Description 12/14/2017 4:30 PM EDT Office Visit [place] [address] Carlos Caceres MD [facility] [place] [address] Pain in both knees, unspecified chronicity; Psoriatic arthritis Social History Tobacco Use Types [...] Sign Reading Time Taken Comments Blood Pressure 120/71 12/14/2017 4:10 PM EDT Pulse 91 12/14/2017 4:10 PM EDT Temperature - - Respiratory Rate - - Oxygen Saturation - - Inhaled Oxygen Concentration - - Weight - - Height - - Body Mass Index - - documented in this encounter Progress Notes * Cande Jones PA - 12/14/2017 4:30 PM EDT PATIENT NAME: Keeley Gutierrez AGE: 52 y.o. MR#: [id number] DATE OF VISIT: 12/14/2017 CHIEF COMPLAINT: Problem List Items Addressed This Visit Bilateral knee pain HISTORY OF PRESENT ILLNESS: Ms. Gutierrez is a 52 y.o. female who comes into clinic today for evaluation of the bilateral knees. She was last in to see myself on 10/26/2017 where she received corticosteroid injections. Since this appointment she reports that her discomfort returned quickly. She returnstoday to see what if anything can be done. She has tried using an brace that was previously prescribed. Her frustration level with this is due to the fact that this will cause her to hold fluid in the distal aspect of her leg. She reports that when she removes the knee brace there are indentation mccarthy about her knee. She does take Tylenol arthritis as well as ibuprofen for pain relief. Medications: ??? acetaminophen (TYLENOL) 120 mg Suppository ??? ibuprofen (ADVIL;MOTRIN) 100 mg/5 mL Suspension ??? FLUoxetine (PROZAC) 40 mg Capsule ??? etanercept (ENBREL) 50 mg/mL (0.98 mL) Syringe ??? Diclofenac Sodium (VOLTAREN XR) 100 mg Tablet Sustained Release 24 hr PAST MEDICAL HX: History reviewed. No pertinent past medical history. Patient Active Problem List Diagnosis Date Noted ??? Bilateral knee pain 12/14/2017 ??? Psoriatic arthritis 06/09/2016 Allergies: Allergies Allergen Reactions ??? Codeine Phosphate CIS - vomit Social history: Social History Substance Use Topics ??? Smoking status: Former Smoker ??? Smokeless tobacco: Never Used Comment: quit at age 35 ??? Alcohol use Yes Comment: social gatherings Vital signs: Most Recent Vitals: 12/14/17 1610 BP: 120/71 Pulse: 91 Physical exam: Ms. Gutierrez is a 52 y.o. female who is alert and oriented. She is in no acute discomfort and is resting comfortably in the exam room. Left: Demonstrates extension to 0 Flexion to 90?? There is a noticeable swelling in the popliteal area Right: Extension to 0 Flexion to 135?? x-ray images Imaging studies: 10/26/17 show bilateral lateral sided joint space narrowing Assessment and plan:: 52 y.o. year-old female with lateral sided arthritis of the left as well as soft tissue damage. Patient seen and plan discussed in conjunction with Dr. Caceres. We had a long discussion regarding the nature of her discomfort. We reviewed the x- ray images which are described above. Clinically she does appear to have edema of the left knee. We discussed the arthritis ladder, attempting conservative the rapy first with [id number] anti-inflammatories such as ibuprofen or naproxen along with acetaminophen if they can be tolerated. We also discussed attempting formal physical therapy, as that canhelp keep core and quad musculature strong, in conjunction with focusing on range of motion. We also discussed using walking aids, continue and regular exercise along with maintaining an appropriate weight. The patient is receptive to this. We also discussed corticosteroid injection. Risks and benefits explained including but not limited to steroid flare, increase in blood glucose, infection, continued pain, bleeding, damage to nerves and vessels and can safely be given every 3-4 months. We reviewed the indications of total knee arthroplasty and th elective management of this. We discussed the procedure, recovery, and expectations post- operatively. We reviewed risks and benefits, which include but are not limited to infection, bleeding, damage to nerves and vessels, hardware failure, fract ure, dislocation, blood clot, heart attack, stroke, adverse reaction to anesthesia, and continued pain. Patient demonstrates and understanding of the above. We discussed a referral to a pantry goods worker to evaluate her psoriatic arthritis. We have placed an order for this. This plan was discussed with the patient and they are in agreement. All of the patient's questions were answered. The patient understand to contact us if they have any other questions or concerns. FU: As needed. Cande Jones PA-C The above dictation was made with voice recogonition software documented in this encounter Plan of Treatment Upcoming Encounters Date Type Department Care Team (Late st Contact Info) Description 12/20/2023 2:15 PM EDT Office Visit Dermatology at [facility] [place] [address] Inderjit Vilchis MD [facility] DR GILBERTO [place] [address] 12/22/2023 10:00 AM EDT Office Visit [place] [address] Norm Joy PA [facility] [place] [address] 12/26/2023 11:45 AM EDT Appointment Hematology [place] [address] 12/26/2023 12:45 PM EDT Office Visit Hematology [place] [address] Jean-Pierre Peña MD [facility] DR [place] [address] Vicky Burnham APRN [facility] [place] [address] 12/26/2023 2:30 PM EDT Appointment Hematology [place] [address] 02/06/2024 10:00 AM EDT Appointment Hematology [place] [address] 02/06/2024 12:45 PM EDT Office Visit Hematology [place] [address] Jean-Pierre Peña MD [facility] DR [place] [address] Vicky Burnham APRN [facility] [place] [address] 02/06/2024 2:00 PM EDT Appointment Hematology [place] [address] Scheduled Referrals Name Type Priority Associated Diagnoses Order Schedule Referral to Rheumatology Outpatient Referral Routine Psoriatic arthritis Ordered: 12/14/2017 documented as of this encounter Visit Diagnoses Diagnosis Pain in both knees, unspecified chronicity Psoriatic arthritis Psoriatic arthropathy documented in this encounter Care Teams Water Pump Installer Relationship Specialty Start Date End Date Taylor Bryant, ZARA [address] [place] [address] PCP - General 03/31/10 documented as of this encounter
--- OUTSIDE RECORDS SUMMARY | 2023-12-05 02:29 | XMS_ITS | Encounter Summary ---
Author Organization [facility] Address [facility] [place] [address] Care Team Providers Care Health And Safety Manager Name Role Phone Taylor Bryant APRN Primary Care Provider [phone] Encounter Details Date Type Department Care Team (Late st Contact Info) Description 08/21/2021 Interpretation Only [address] [phone] Jorge Luis Galicia MD [address] [place] [address] Social History Tobacco Use Types Packs/Day Years [...] 2:15 PM EDT Office Visit Dermatology at [address] [address] Inderjit Vilchis MD [facility] DR [place] [address] 12/22/2023 10:00 AM EDT Office Visit [place] [address] Norm Joy PA [facility] [place] [address] 12/26/2023 11:45 AM EDT Appointment Hematology and Oncology at [place] [phone] 12/26/2023 12:45 PM EDT Office Visit Hematology and Oncology at [place] [address] Jean-Pierre Peña MD [facility] DR HEMATOLOGY [place] [address] Vicky Burnham APRN [facility] [place] [address] 12/26/2023 2:30 PM EDT Appointment Hematology and Oncology at [place] [address] 02/06/2024 10:00 AM EDT Appointment Hematology and Oncology at [place] [phone] 02/06/2024 12:45 PM EDT Office Visit Hematology and Oncology at [place] [address] Jean-Pierre Peña MD [facility] DR HEMATOLOGY [place] [address] Vicky Burnham LEAK DETECTION ENGINEER [facility] [place] [address] 02/06/2024 2:00 PM EDT Appointment Hematology [place] [phone] documented as of this encounter Procedures Procedure Name Priority Date/Time Associated Diagnosis Comments XR HAND MIN 3 VIEWS LEFT Routine 08/21/2021 10:40 AM EDT documented in this encounter Results * XR Hand Min 3 views Left (Generic) (08/21/2021 10:40 AM EDT) PT CLASS O RAD ADMITDTTM RAD PT CHRISTEN ROBLES INFO [id number]^F ORCIER^JORGE LUIS RAD EXAM DESC [id number]^XR LEFT HAND ROUTINE 3+VIEWS^RIS RAD Anatomical Region Laterality Modality Hand Left Radiographic Julianna ging Impressions 08/21/2021 11:00 AM EDT Negative exam of the left hand. Thank you for letting us participate in the care of this patient. ??If you are a health care provider and have any questions regarding this report, please contact the number below. ??For patients who have questions please contact the health care companion that requested your imaging first. ? Electronically signed by: Freedom Gonzáles MD, [facility] ([phone]), at 08/21/2021 11:00 AM Narrative 08/21/2021 11:00 AM EDT EXAMINATION: XR LEFT HAND ROUTINE 3+VIEWS CLINICAL HISTORY: Pain in left hand TECHNIQUE: 3 views left hand COMPARISON: None FINDINGS: No acute osseous abnormality is seen. No significant soft tissue abnormality. No significant degenerative findings. Procedure Note Freedom Gonzáles MD - 08/21/2021 EXAMINATION: XR LEFT HAND ROUTINE 3+VIEWS CLINICAL HISTORY: Pain in left hand TECHNIQUE: 3 views left hand COMPARISON: None FINDINGS: No acute osseous abnormality is seen. No significant soft tissueabnormality. No significant degenerative findings. IMPRESSION Negative exam of the left hand. Thank you for letting us participate in the care of this patient. If youare a health care provider and have any questions regarding this report,please contact the number below. For patients who have questions please contactthe health care companion that requested your imaging first. Jorge Luis Galicia MD IMG DX ORDERABLES documented in this encounter Visit Diagnoses Not on filedocumented in this encounter Care Teams Health And Safety Manager Relationship Specialty Start Date End Date Taylor Bryant APRN [address] [place] [address] PCP - General 03/31/10 documented as of this encounter
--- OUTSIDE RECORDS SUMMARY | 2023-12-05 02:29 | XMS_ITS | Encounter Summary ---
Author Organization [facility] Address [facility] [place] [address] Care Team Providers Care Interior Designer Name Role Phone Taylor Bryant APRN Primary Care Provider [phone] [phone] Reason for Visit * Reason Comments Left Knee Pain discuss XR/MRI Encounter Details Date Type Department Care Team (Late st Contact Info) Description 06/29/2016 11:00 AM EST Office [place] [address] Carlos Caceres MD [facility] [place] [address] Primary osteoarthritis of left knee; Psoriatic arthritis Social History Tobacco Use Types [...] Sign Reading Time Taken Comments Blood Pressure 123/85 06/29/2016 11:00 AM EST Pulse 83 06/29/2016 11:00 AM EST Temperature - - Respiratory Rate - - Oxygen Saturation - - Inhaled Oxygen Concentration - - Weight 81.2 kg (179 lb) 06/29/2016 11:00 AM EST Height 163.2 cm (5' 4.25) 06/29/2016 11:[address] Body Mass Index 30.49 06/29/2016 11:00 AM EST documented in this encounter Progress Notes * Carlos Caceres MD - 06/29/2016 11:00 AM EST Date of encounter: 06/29/16 The patient is a 51-year-old female who returns to clinic today for discussion of the left knee pain. She underwent an MRI of the left knee yesterday for evaluation of fullness in the lateral aspect of the left knee. She has a history of psoriatic arthritis for which she takes oral diclofenac. She is considering starting Enbrel injections. As a cortisone injections in the left knee in the past with mixed success. Her most recent left knee injection was approximately a year ago. Her left knee continues to be exquisitely painful and stiff with decreased flexion and inability to fully extend. She describes pain as global in nature with no focal findings. BP 123/85 (BP Location (NBP): Right arm, Patient Position: Sitting, BP Cuff Sizes: Adult (25-34 cm)) Pulse 83 Ht 163.2 cm (5' 4.25) Wt 81.2 kg (179 lb) BMI 30.49 kg/m2 Today in clinic she is pleasant and interactive. She is awake, alert, and oriented. She walks comfortably about the examination room although she does have mild antalgia about the left knee. Her range of motion is from 5?? shy of full extension to approximate 95?? of flexion. There is a 2+ effusionin the knee. The knee is stable to varus and valgus stress throughout its arc of motion as well as anterior and posterior drawer. She has globally increased tenderness to palpation about the knee. There is no warmth or erythema to my exam. She is globally tender with no focal joint line tenderness noted. Imaging: MRI of the left knee done yesterday demonstrates a large joint effusion. There is also a complex tear which could also be consistent with postoperative change of the medial meniscus at the posterior horn and midbody of the left knee. There is some degeneration of the cartilage in the medial compartment of the knee but no sabi fissuring or potholes. The lateral and patellofemoral compartments appear to be primarily well-preserved. No soft tissue masses are noted. Patient is a 51-year-old female with significant synovitis of the left knee secondary to psoriatic arthritis with underlying cartilage degeneration and possible new meniscus tear although her pain does not localize to the medial plateau. This meniscus tear could also be postoperative change from her previous arthroscopy. I think at this point due to the size of the effusion in her knee as well asthe prominent synovitis I think that a aspiration and injection of her knee with a local anestheticand corticosteroid would be appropriate. The risks of injection were discussed with the patient including infection, and elevation of blood sugar. She wished to proceed with left knee injection Procedure: A bedside timeout was held to confirm the patient's identity with 2 identifiers, confirmed the site of injection, and review any allergies. There are no concerns everyone agreed to proceed. The anteromedial portal to the knee was prepped with ChloraPrep. A sterile drape was applied. Using sterile technique 3 mL of 1% lidocaine was instilled into the skin and soft tissues down to the joint capsule over the anteromedial portal. Then a 22-gauge needle was inserted into the femoral notch. Approximate 40 mL of bloody but clear joint fluid was aspirated from the knee. Using the same needle a cocktail of 40 mg of cortisone, 5 mL of 1% lidocaine, and 4 mL of quarter percent bupivacaine was injected in the knee. Fluid flowed freely from the needle. The needle was withdrawn and the skin was cleansed with isopropyl alcohol and dried. A bandage was applied. The patient tolerated the injection and aspiration well with no complications. documented in this encounter Plan of Treatment Upcoming Encounters Date Type Department Care Team (Late st Contact Info) Description 12/20/2023 2:15 PM EDT Office Visit Dermatology at [address] [address] Inderjit Vilchis MD [facility] [address] GIL[place] [address] 12/22/2023 10:00 AM EDT Office Visit [place] [address] Norm Joy PA [facility] [place] [address] 12/26/2023 11:45 AM EDT Appointment Hematology [place] [address] 12/26/2023 12:45 PM EDT Office Visit Hematology [place] [address] Jean-Pierre Peña MD [facility] [place] [address] Vicky Burnham APRN [facility] [place] [address] 12/26/2023 2:30 PM EDT Appointment Hematology and Oncology at [place] [phone] 02/06/2024 10:00 AM EDT Appointment Hematology [place] [address] 02/06/2024 12:45 PM EDT Office Visit Hematology [place] [address] Jean-Pierre Peña MD [facility] [address] [place] [address] Vicky Burnham FAMILY HELPER [facility] [place] [address] 02/06/2024 2:00 PM EDT Appointment Hematology [place] [address] documented as of this encounter Visit Diagnoses Diagnosis Primary osteoarthritis of left knee Primary localized osteoarthrosis, lower leg Psoriatic arthritis Psoriatic arthropathy documented in this encounter Administered Medications Inactive Administered Medications - up to 3 most recent administrations Medication Order MAR Action Action Date Dose Rate Site BUpivacaine (PF) (MARCAINE) 0.25 % (2.5 mg/mL) injection 12.5 mg 12.5 mg, Intra-articular, ONCE, 1 dose, On Tue06/29/16 at 1415, Routine Given 06/29/2016 1:51 PM EST 12.5 mg lidocaine (XYLOCAINE) 10 mg/mL (1 %) injection 60 mg 60 mg, Intra-articular, ONCE, 1 dose, On Tue06/29/16 at 1415, Routine Given 06/29/2016 1:51 PM EST 60 mg triamcinolone acetonide (KENALOG-40) injection 40 mg 40 mg, Intra-articular, ONCE, 1 dose, On Tue06/29/16 at 1415, Routine Given 06/29/2016 1:51 PM EST 40 mg documented in this encounter Care Teams Interior Designer Relationship Specialty Start Date End Date Taylor Bryant APRN [address] [place] [address] PCP - General 03/31/10 documented as of this encounter
--- OUTSIDE RECORDS SUMMARY | 2023-12-05 02:29 | XMS_ITS | Encounter Summary ---
Author Organization [facility] Address [facility] [place] [address] Care Team Providers Care Scientific Artist Name Role Phone Taylor Bryant APRN Primary Care Provider [phone] [phone] Encounter Details Date Type Department Care Team (Late Contact Info) Description 10/26/2017 11:45 AM EDT - 10/26/2017 11:59 PM EDT Hospital Encounter XRay at [address] [place] [address] Carlos Caceres MD [facility] [place] [address] Pain in both knees, unspecified chronicity Discharge Disposition: Home Social History Tobacco Use [...] Capsule Take 40 mg by mouth daily. etanercept (ENBREL) 50 mg/mL (0.98 mL) Syringe Inject 25 mg subcutaneously once. 07/26/2023 Diclofenac Sodium (VOLTAREN XR) 100 mg Tablet Sustained Release 24 hr Take by mouth. 07/26/2023 documented as of this encounter Plan of Treatment Upcoming Encounters Date Type Department Care Team (Late st Contact Info) Description 12/20/2023 2:15 PM EDT Office Visit Dermatology at [facility] [address] [place] [address] Inderjit Vilchis MD [facility] DR GILBERTO [place] [address] 12/22/2023 10:00 AM EDT Office Visit Otolaryngology at [address] Norm Joy PA [facility] [place] [address] 12/26/2023 11:45 AM EDT Appointment Hematology and Oncology at [address] 12/26/2023 12:45 PM EDT Office Visit Hematology and Oncology at [address] Jean-Pierre Peña MD [facility] DR [place] [address] Vicky Burnham APRN [facility] [place] [address] 12/26/2023 2:30 PM EDT Appointment Hematology and Oncology at [place] [phone] 02/06/2024 10:00 AM EDT Appointment Hematology and Oncology at [place] [phone] 02/06/2024 12:45 PM EDT Office Visit Hematology and Oncology at [place] [phone] Jean-Pierre Peña MD [facility] [place] [address] Vicky Burnham APRN [facility] [place] [address] 02/06/2024 2:00 PM EDT App[facility]ment [facility] [place] [address] documented as of this encounter Procedures Procedure Name Priority Date/Time Associated Diagnosis Comments XR KNEE STANDING ALIGNMENT AP LAT [place] SKYLINE BILAT Routine 10/26/2017 12:14 PM EDT Pain in both knees, unspecified chronicity documented in this encounter Results * XR Knee Standing Alignment AP Lat [place] Bilat (10/26/2017 12:14 PM EDT) Anatomical Region Laterality Modality Bilateral Digital Radiogra phy Impressions 10/26/2017 1:24 PM EDT Left knee joint effusion. No bony abnormality identified. Narrative 10/26/2017 1:24 PM EDT EXAMINATION: XR KNEE STANDING ALIGNMENT AP LAT [place] SKYLINE BILAT CLINICAL HISTORY: Bilateral knee pain TECHNIQUE: Separate images of the pelvis, knees and feet were acquired in the AP projection with the patient standing. These images were stitched together to form a composite image of the pelvis and legs allowing for evaluation of lower extremity alignment in the weight bearing position. Additionally, frontal, lateral, sunrise view, and Gaming view radiographs of the bilateral knees were obtained. COMPARISON: Attention is also directed to knee imaging studies ranging from 03/20/2013 through 06/28/2016 FINDINGS: The bilateral lower extremity weightbearing axes are midline. No fracture. No patellar dislocation or patellar tilt. The knee joint spaces are preserved. No osteophyte production is appreciated. There is a left knee joint effusion. There is no significant right suprapatellar knee joint effusion. Procedure Note Yovanny Pulido MD - 10/26/2017 EXAMINATION: XR KNEE STANDING ALIGNMENT AP LAT [place] SKYLINE BILAT CLINICAL HISTORY: Bilateral knee pain TECHNIQUE: Separate images of the pelvis, knees and feet were acquired inthe AP projection with the patient standing. These images were stitched togetherto form a composite image of the pelvis and legs allowing for evaluation oflower extremity alignment in the weight bearing position. Additionally,frontal, lateral, sunrise view, and Gaming view radiographs of the bilateralknees were obtained. COMPARISON: Attention is also directed to knee imaging studies rangingfrom 03/20/2013 through 06/28/2016 FINDINGS: The bilateral lower extremity weightbearing axes are midline. No fracture. No patellar dislocation or patellar tilt. The knee jointspaces are preserved. No osteophyte production is appreciated. There is a left knee joint effusion. There is no significant rightsuprapatellar knee joint effusion. IMPRESSION Left knee joint effusion. No bony abnormality identified. Carlos Caceres MD IMG DX ORDERABLES documented in this encounter Visit Diagnoses Diagnosis Pain in both knees, unspecified chronicity documented in this encounter Care Teams Scientific Artist Relationship Specialty Start Date End Date Taylor Bryant APRN [address] [place] [address] PCP - General 03/31/10 documented as of this encounter
[2023-12-05 12:04] LABS: ALT 31 U/L (14-59); AST 18 U/L (15-37); Albumin 3.3 g/dL (3.4-5.0); Alkaline Phosphatase 68 U/L (46-116); Anion Gap 8.9 mmol/L (3-11); BUN 19 mg/dL (7-18); Bilirubin, Total 0.66 mg/dL (0.2-1.0); CO2 26.1 mmol/L (21.0-32.0); Chloride 108 mmol/L (98-107); Glucose 88 mg/dL (74-106); Potassium 3.2 mmol/L (3.5-5.1); Sodium 143 mmol/L (136-145); Total Protein 6.7 g/dL (6.4-8.2)
== END 2023-12-05 02:25 | disposition home or self-care (01) ==
PROVIDERS: PCP Nurse Practitioner; Visit Provider Internal Medicine Hospice and Palliative Medicine
DX: C43.4 Malignant melanoma of scalp and neck (principal); Z79.899 Other long term (current) drug therapy
CPT/HCPCS: 36415; 80053

== ENCOUNTER 2024-02-24 01:54 | Outpatient (CLI) | payer MEDICARE, MEDICAID, SELFPAY ==
--- OUTSIDE RECORDS SUMMARY | 2024-02-24 01:56 | XMS_ITS | Encounter Summary ---
Author Organization [facility] Address [facility] [place] [address] Care Team Providers Care Script Reader Name Role Phone Taylor Bryant APRN Primary Care Provider [phone] [phone] Encounter Details Date Type Department Care Team ([facility] Contact Info) Description 02/15/2024 8:30 AM EDT Office Visit Dermatology at [address] [place] [address] Kendra De MD [facility] [place] [address] Epidermal inclusion cyst Social History Tobacco Use Types Packs/Day Years [...] place to sleep or slept in a penitentiary (including now)? No 07/24/2023 DH IPV Inpatient [...] as of this encounter Progress Notes * Kendra De MD - 02/15/2024 8:30 AM EDT Images from the original note were not included. DEPARTMENT OF DERMATOLOGY Medical Dermatology Clinic Provider: KENDRA DE MD Patient's preferred name Petros or Radha Preferred contact method for results []Phone []myD-H []Letter Detailed phone message OK? Yes Are there any other people with whom we may discuss your care? 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 Patient returns to the clinic today for a focused exam with the following concerns: - Patient notes a lesion on the back that she said initially looked like two pimples and was pink but since turned dark brown. She notes that it itches occasionally. She notes it has been present forabout two weeks. Last FSE: 12/19/[address] Vilchis Medications: Reviewed in eD-H Allergies: Reviewed in eD-H Skin Examination: Focused skin examination of the back was normal with the exception of the findings below. Assessment/Plan #. Inflamed Epidermal Inclusion Cyst - 0.8 cm subcutaneous nodule with open comedone and expressible white keratinaceous material on the central back. - Discussed benign nature of lesion and provided reassurance. - No treatment necessary at this time. - Discussed that definitive treatment would require surgical excision. Figure 1 Photo(s) taken and charted with patient's verbal consent. Other: N/A RTC: As scheduled for FSE with Dr. Vilchis in May 2024 []Note routed to medical office secretary []Recall placed in scheduling system []Appointment scheduled at checkout Scribe attestation: Kate Valenzuela [facility] has performed the documentation for this encounter in thepresence of and acting as a scribe for KENDRA DE MD. I performed the above scribed service and agree with the accuracy of the documentation in this encounter. Reviewed and signed by: KENDRA DE MD [facility] documented in this encounter Plan of Treatment Upcoming Encounters Date Type Department Care Team (Late st Contact Info) Description 02/27/2024 8:15 AM EDT TH Visit (TeleHealth) Hematology [place] [address] Jean-Pierre Peña MD [facility] [place] [address] Vicky Burnham APRN [facility] [place] [address] 02/28/2024 11:30 AM EDT Infusion Hematology Oncology at [address] [address] 03/19/2024 12:45 PM EST Laboratory Appointment Lab at [facility] Hematology Oncology [address] [place] [address] 03/19/2024 1:45 PM EST Office Visit Hematology [place] [address] Jean-Pierre Peña MD [facility] [place] [address] Vicky Burnham APRN [facility] [place] [address] 03/19/2024 3:30 PM EST Appointment Hematology [place] [address] 04/30/2024 12:15 PM EST Laboratory Appointment Lab at [facility] Hematology Oncology [address] [place] [address] 04/30/2024 1:15 PM EST Office Visit Hematology [place] [address] Jean-Pierre Peña MD [facility] [place] [address] Vicky Burnham AGRICULTURAL CHEMIST [facility] [place] [address] 04/30/2024 2:30 PM EST Appointment Hematology [place] [address] 05/22/2024 11:30 AM EST Office Visit Dermatology at [facility] [address] [place] [address] Inderjit Vilchis MD [facility] DR G[place] [address] documented as of this encounter Visit Diagnoses Diagnosis Epidermal inclusion cyst Sebaceous cyst documented in this encounter Care Teams Script Reader Relationship Specialty Start Date End Date Taylor Bryant APRN [address] [place] [address] PCP - General 03/31/10 documented as of this encounter
--- OUTSIDE RECORDS SUMMARY | 2024-02-24 01:56 | XMS_ITS | Encounter Summary ---
Author Organization [facility] Address [facility] [place] [address] Care Team Providers Care Cpht Name Role Phone Taylor Bryant APRN Primary Care Provider [phone] Encounter Details Date Type Department Care Team (Latest Contact Info) Description 01/24/2024 Travel Social History Tobacco Use Types Packs/Day Years Used Date Smoking Tobacco: Former Smokeless Tobacco: Never Comments:quit at age 35 Alcohol Use Standard Drinks/Week Comments Yes 0 (1 standard drink = 0.6 oz pur e alcohol) social gatherings [facility] Utilities Answer Date Recorded In [...] in a alf (including now)? No 07/24/2023 IPV Inpatient Questions [...] TH Visit (TeleHealth) [place] [address] Jean-Pierre Peña MD [facility] DR HEMATOLOGY [place] [address] Vicky Burnham APRN [facility] [place] [address] 02/28/2024 11:30 AM EDT Infusion Hematology Oncology at [address] [address] 03/19/2024 12:45 PM EST Laboratory Appointment Lab at [facility] Hematology Oncology [address] [place] [address] 03/19/2024 1:45 PM EST Office Visit [place] [address] Jean-Pierre Peña MD [facility] DR HEMATOLOGY [place] [address] Vicky Burnham APRN [facility] [place] [address] 03/19/2024 3:30 PM EST Appointment Hematology [place] [address] 04/30/2024 12:15 PM EST Laboratory Appointment Lab at [facility] Hematology Oncology [address] [place] [address] 04/30/2024 1:15 PM EST Office Visit [place]ematology [place] [address] Jean-Pierre Peña MD [facility] DR HEMATOLOGY [place] [address] Vicky Burnham GAS LINE SERVICER [facility] [place] [address] 04/30/2024 2:30 PM EST Appointment [place]ology [place] [address] 05/22/2024 11:30 AM EST Office Visit Dermatology at [address] [phone] Inderjit Vilchis MD [facility] DR GILBERT[address] [place] [address] documented as of this encounter Visit Diagnoses Not on filedocumented in this encounter Care Teams Cpht Relationship Specialty Start Date End Date Taylor Bryant APRN [address] [place] [address] PCP - General 03/31/10 documented as of this encounter
--- OUTSIDE RECORDS SUMMARY | 2024-02-24 01:56 | XMS_ITS | Encounter Summary ---
Author Organization [facility] Address [facility] [place] [address] Care Team Providers Care Recycle Worker Name Role Phone Taylor Bryant APRN Primary Care Provider [phone] [phone] Encounter Details Date Type Department Care Team (Latest Contact Info) Description 02/05/2024 Travel Social History Tobacco Use Types Packs/Day Years Used Date Smoking Tobacco: Former Smokeless Tobacco: Never Comments:quit at age 35 Alcohol Use Standard Drinks/Week Comments Yes 0 (1 standard drink = 0.6 oz pur e alcohol) social gatherings [facility] Utilities Answer Date Recorded In the [...] TH Visit (TeleHealth) [place] [address] Jean-Pierre Peña MD [facility] DR [place] [address] Vicky Burnham APRN [facility] [place] [address] 02/28/2024 11:30 AM EDT Infusion Hematology Oncology at [address] [address] 03/19/2024 12:45 PM EST Laboratory Appointment Lab at [facility] Hematology Oncology [address] [place] [address] 03/19/2024 1:45 PM EST Office Visit [place] [address] Jean-Pierre Peña MD [facility] DR [place] [address] Vicky Burnham APRN [facility] [place] [address] 03/19/2024 3:30 PM EST Appointment [place]ematology [place] [address] 04/30/2024 12:15 PM EST Laboratory Appointment Lab at [facility] Hematology Oncology [address] [place] [address] 04/30/2024 1:15 PM EST Office Visit [place] [address] Jean-Pierre Peña MD [facility] DR [place] [address] Vicky Burnham SURVEYING OR SPATIAL SCIENCE TECHNICIAN [facility] [place] [address] 04/30/2024 2:30 PM EST Appointment [place] [address] 05/22/2024 11:30 AM EST Office Visit Dermatology at [address] [phone] Inderjit Vilchis MD [facility] [address] [place] [address] documented as of this encounter Visit Diagnoses Not on filedocumented in this encounter Care Teams Recycle Worker Relationship Specialty Start Date End Date Taylor Bryant APRN [address] [place] [address] PCP - General 03/31/10 documented as of this encounter
--- OUTSIDE RECORDS SUMMARY | 2024-02-24 01:56 | XMS_ITS | Encounter Summary ---
Author Organization [facility] Address [facility] [place] [address] Care Team Providers Care Singer And Unloader Name Role Phone AnnetteTaylor ZARA Primary Care Provider [phone] [phone] Encounter Details Date Type Department Care Team ([facility] st Contact Info) Description 01/02/2024 Orders Only Hematology [place] [address] Vicky Burnham SALES LEADER [facility] [place] [address] Malignant melanoma of scalp; Medication management Social History Tobacco Use Types Packs/Day Years Used Date Smoking Tobacco: Former Smokeless Tobacco: Never Comments:quit at age 35 Alcohol Use Standard Drinks/Week Comments Yes 0 (1 standard drink = 0.6 oz pur e alcohol) social gatherings [facility] Utilities Answer Date Recorded In the past 12 months has e electric, gas, oil, or water [employer] threatened to shut off services in your [...] a nursing home (including now)? No 07/24/2023 IPV Inpatient [...] TH Visit (TeleHealth) [place] [address] Jean-Pierre Peña MD [facility] DR HEMATOLOG[place] [address] Vicky Burnham APRN [facility] [place] [address] 02/28/2024 11:30 AM EDT Infusion Hematology Oncology at [address] [address] 03/19/2024 12:45 PM EST Laboratory Appointment Lab at [facility] Hematology Oncology [address] [place] [address] 03/19/2024 1:45 PM EST Office Visit [place] [address] Jean-Pierre Peña MD [facility] DR HEMATOLOG[place] [address] Vicky Burnham APRN [facility] [place] [address] 03/19/2024 3:30 PM EST Appointment Hematology [place] [address] 04/30/2024 12:15 PM EST Laboratory Appointment Lab at [facility] Hematology [address] [address] 04/30/2024 1:15 PM EST Office Visit [place]ematology [place] [address] Jean-Pierre Peña MD [facility] DR HEMATOLOGY [place] [address] Vicky Burnham SALES LEADER [facility] [place] [address] 04/30/2024 2:30 PM EST Appointment Hematology [place] [address] 05/22/2024 11:30 AM EST Office Visit Dermatology at [address] [phone] Inderjit Vilchis MD [facility] DR GIL[facility]ERTO [place] [address] Scheduled Orders Name Type Priority Associated Diagnoses Orde r Schedule TSH Lab STAT Medication management Expected: 01/18/2024 (Approximate), Expires: 07/04/2025 CBC (with Diff) Lab STAT Malignant melanoma of scalp Expected: 01/18/2024 (Approximate), Expires: 07/04/2025 Comprehensive metabolic panel Lab STAT Malignant melanoma of scalp Expected: 01/18/2024 (Approximate), Expires: 07/04/2025 Lactate Dehydrogenase Lab STAT Malignant melanoma of scalp Expected: 01/18/2024 (Approximate), Expires: 07/04/2025 T4, free Lab STAT Medication management Expected: 01/18/2024 (Approximate), Expires: 07/04/2025 documented as of this encounter Visit Diagnoses Diagnosis Malignant melanoma of scalp Malignant melanoma of skin of scalp and neck Medication management Encounter for long-term (current) use of other medications documented in this encounter Care Teams Singer And Unloader Relationship Specialty Start Date End Date Taylor Bryant APRN [address] [place] [address] PCP - General 03/31/10 documented as of this encounter
--- OUTSIDE RECORDS SUMMARY | 2024-02-24 01:56 | XMS_ITS ---
Author Organization [facility] Address 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 Medication management 07/25/2023 Bilateral knee pain 12/14/2017 Psoriatic arthritis 06/09/2016 Current Oncology Plans [facility] ONC SKIN MELANOMA - PEMBROLIZUMAB* Plan Start Date:08/23/2023 Plan Provider:Jean-Pierre Peña MD Linked Problems Medication managementMaligna nt melanoma of scalp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, unspecified lymph node region Treatment Medications Current Day (Day 1 , Cycle 8 - Planned for 02/27/2024) Next Day (Day 1, Cycle 9 - Planned for 03/19/2024) pembrolizumab (Keytruda) in sodium chloride 0.9% 100 mL infusion pembrolizumab (Keytruda) 200 mg in sodium chloride 0.9% 108 mL infusion pembrolizumab (Keytruda) 200 mg in sodium chloride 0.9% 108 mL infusion Past Plans No past plan information found. Radiation Treatments * No radiation treatments are documented for this patient in [facility]. Treatments may have been administered in another system.
--- OUTSIDE RECORDS SUMMARY | 2024-02-24 01:56 | XMS_ITS | Encounter Summary ---
Author Organization [facility] Address [facility] [place] [address] Care Team Providers Care Rail Project Engineer Name Role Phone Taylor Bryant ZARA Primary Care Provider [phone] [phone] Reason for Visit * Reason Comments Follow-up Encounter Details Date Type Department Care Team ([facility] st Contact Info) Description 12/26/2023 12:45 PM EDT Office Visit Hematology [place] [address] Sharath Parra MD [facility] DR [place] [address] Vicky Burnham APRN [facility] [place] [address] Malignant melanoma of scalp (Primary Dx); 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, unspecified lymph node region; Secondary malignancy of soft tissue; Medication management Social History Tobacco Use Types [...] Sign Reading Time Taken Comments Blood Pressure 116/73 12/26/2023 12:40 PM EDT Pulse 82 12/26/2023 12:40 PM EDT Temperature 36.6 ??C (97.9 ??F) 12/26/2023 1 2:40 PM EDT Respiratory Rate 18 12/26/2023 12:4 0 PM EDT Oxygen Saturation 98% 12/26/2023 12: 40 PM EDT Inhaled Oxygen Concentration - - Weight 68.8 kg (151 lb 10.8 oz) 024 12:40 PM EDT Height 161 cm (5' 3.39) 12/26/2023 12: 40 PM EDT Body Mass Index 26.54 12/26/2023 12:40 PM EDT documented in this encounter Progress Notes * Pushpaelenita Vicky M, ZARA - 12/26/2023 12:45 PM EDT Images from the original note were not included. [facility] NOTE REFERING PHYSICIAN: DIAGNOSIS: Right occipital scalp melanoma PATH: Malignant melanoma At least T2a 1.5 mm depth with positive margin 6 mitosis BRAF V600K/R variant. CURRENT TX: Cycle #4 adjuvant,(total cycle #5) pembrolizumab on 12/26/2023 Cycle #1, adjuvant pembrolizumab on 10/04/2023 Wide [...] 10/15/2023 Cycle #3 adjuvant pembrolizumab on 11/14/2023 400mg Cycle #4 adjuvant pembrolizumab on 12/26/2023 returned to 200mg q21 day dosing due to joint pain andfatigue History of psoriatic arthritis over 20 years [...] options. INTERVAL HISTORY: Patient presents today for 4th cycle of adjuvant pembrolizumab. Excision of scalp lesion and lymph node with Dr. Preciado on 09/16/2023. Lymph node negative for metastatic disease but positive with microsatellitosis. She is presenting for ongoing treatment with pembrolizumab. At last visit we increased dosage to 400mg q6 weeks in an attempt to minimize patient visits. However a few days after receiving the higher dose patient reports she had intense muscle and joint pains. She also experienced extreme fatigue. These side effects have since subsided and today her joint pain is manageable. She is taking 5mg prednisone daily. No rashes or other skin changes. REVIEW OF SYSTEMS: Constitutional: No recent weight loss, no fever, manageable fatigue, No dizziness. Occasional headache. Eyes: Negative, no visual change ENT: No hearing change Cardiovascular: Negative Respiratory: Negative Gastrointestinal: Negative, Genitourinary: Negative Musculoskeletal: Improving generalized joint pain Skin: No rash, Neurological: Negative, no focal weakness Psychiatric: stable mood PAST MEDICAL HISTORY: Past Medical History: Diagnosis Date Psoriasis Psoriatic arthritis Skin rash Past Surgical History: Procedure Laterality Date CHOLECYSTECTOMY HYSTERECTOMY KNEE SURGERY PRO ADJ TISS TRANSFER SCALP, EXTREM 10.1-30 Right 09/28/2023 ADJ.TISSUE TRANSFER, REARRANGEMENT, 10.1 TO 30 SQ.CM, SCALP (WRVU 9.72) performed by Castro Preciado MD at [facility] OR PRO BX/REMV, LYMPH NODE, DEEP CERV Right 09/16/2023 BIOPSY OR EXCISION OF LYMPH NODE(S), OPEN, DEEP CERVICAL NODES (WRVU 6.74) performed by Castro Preciado MD at [facility] OR PRO RADICAL RESECT OF TUMOR, SOFT TISSUE FACE OR SCALP, 2CM OR GREATER Right 09/16/2023 RADICAL RESECTION TUMOR SCALP; >2 CM (WRVU 15.26) performed by Castro Preciado MD at [facility] OR PRO SPLIT GRFT, HEAD, FAC, HAND, FEET <100SQCM Right 09/28/2023 SPLIT THICKNESS SKIN SPLIT GRAFT,100SQ CM OR LESS, NECK (WRVU 10.15) performed by Castro Preciado MD at [facility] OR TUBAL LIGATION MEDS: FLUoxetine, ascorbic acid (Vitamin C), cholecalciferol (Vitamin D3), elderberry fruit, minoxidiL, multivit-min/vit C/herb no.124, predniSONE, and turmeric ALLERGY: Codeine with nausea vomiting [...] distress. in good mood and spirits BP 116/73 (Patient Position: Sitting) Pulse 82 Temp 36.6 ??C (97.9 ??F) (Temporal) Resp 18 Ht 161 cm (5' 3.39) Wt 68.8 kg (151 lb 10.8 oz) SpO2 98% BMI 26.54 kg/m?? Eyes: Not icteric, not injected Oral: Not examined Neck: Supple. No obvious palpable lymphadenopathy. Lungs: Bilaterally clear to auscultation, No wheezing, No crackles Heart: Regular rate and rhythm. Abdomen: Soft, no tenderness, no mass, normal active bowel sounds. Extremities: No edema. Skin: No obvious rash Surgical site well healed Graft site slight delayed wound healing Neuro: No focal weakness LABS: Unremarkable CBCD and CMP Unremarkable thyroid function test LDH 171 IMAGING STUDIES: Brain MRI on 08/01/2023 Negative [...] still following with surgery for wound care. Surgical team did refer patient to Wound Care for further evaluation of graft site on thigh. Patient will call if worsening symptoms or increased joint pain. Instructed patient that she could increase prednisone to 10mg daily if needed for joint pain. Vicky Burnham APRN Telehealth visit in 3 weeks, with labs and infusion the next day at [facility] in 6 weeks as scheduled with labs, scan and infusion documented in this encounter Miscellaneous Notes * Addendum Note - Sharath Parra MD - 12/26/2023 12:45 PM EDTAddended by: SAHRATH PARRA on: 12/27/2023 06:09 PM Modules accepted: Orders documented in this encounter Plan of Treatment Upcoming Encounters Date Type Department Care Team (Late st Contact Info) Description 02/27/2024 8:15 AM EDT TH Visit (TeleHealth) Hematology [place] [address] Sharath Parra MD [facility] DR [place] [address] Vicky Burnham APRN [facility] [place] [address] 02/28/2024 11:30 AM EDT Infusion Hematology Oncology at [address] [address] 03/19/2024 12:45 PM EST Laboratory Appointment Lab at [facility] Hematology Oncology [address] [place] [address] 03/19/2024 1:45 PM EST Office Visit Hematology [place] [address] Sharath Parra MD [facility] DR HEMATOLOGY [place] [address] Vicky Burnham APRN [facility] [place] [address] 03/19/2024 3:30 PM EST Appointment Hematology [place] [address] 04/30/2024 12:15 PM EST Laboratory Appointment Lab at [facility] Hematology [address] [address] 04/30/2024 1:15 PM EST Office Visit Hematology and Oncology at [place] [phone] Sharath Parra MD [facility] DR HEMATOLOGY [place] [address] Vicky Burnham KINESIOLOGY PROFESSOR [facility] [place] [address] 04/30/2024 2:30 PM EST Appointment Hematology [place] [address] 05/22/2024 11:30 AM EST Office Visit Dermatology at [address] [phone] Inderjit Vilchis MD [facility] DR [facility] [place] [address] documented as of this encounter Visit Diagnoses Diagnosis Malignant melanoma of scalp- Primary Malignant melanoma of skin of scalp and neck 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
--- OUTSIDE RECORDS SUMMARY | 2024-02-24 01:56 | XMS_ITS | Encounter Summary ---
Author Organization [facility] Address [facility] [place] [address] Care Team Providers Care Cdl B Driver Name Role Phone Taylor Bryant APRN Primary Care Provider [phone] Encounter Details Date Type Department Care Team (Latest Contact Info) Description 02/15/2024 Travel Social History Tobacco Use Types Packs/Day Years Used Date Smoking Tobacco: Former Smokeless Tobacco: Never Comments:quit at age 35 Alcohol Use Standard Drinks/Week Comments Yes 0 (1 standard drink = 0.6 oz pur e alcohol) social gatherings [facility] Utilities Answer Date Recorded In the past [...] TH Visit (TeleHealth) Hematology [place] [address] Jean-Pierre Peña MD [facility] [place] [address] Vicky Burnham APRN [facility] [place] [place] [address] 02/28/2024 11:30 AM EDT Infusion Hematology Oncology at [address] [address] 03/19/2024 12:45 PM EST Laboratory Appointment Lab at [facility] Hematology Oncology [address] [place] [address] 03/19/2024 1:45 PM EST Office Visit Hematology [place] [address] Jean-Pierre Peña MD [facility] [place] [address] Vicky Burnham APRN [facility] [place] [place] [address] 03/19/2024 3:30 PM EST Appointment Hematology [place] [address] 04/30/2024 12:15 PM EST Laboratory Appointment Lab at [facility] Hematology Oncology [address] [place] [address] 04/30/2024 1:15 PM EST Office Visit Hematology [place] [address] Jean-Pierre Peña MD [facility] [place] [address] Vicky Burnham WHEEL AND CASTER REPAIRER [facility] [place] [place] [address] 04/30/2024 2:30 PM EST Appointment Hematology [place] [address] 05/22/2024 11:30 AM EST Office Visit Dermatology at [address] [phone] Inderjit Vilchis MD [facility] [address] documented as of this encounter Visit Diagnoses Not on filedocumented in this encounter Care Teams Cdl B Driver Relationship Specialty Start Date End Date Taylor Bryant APRN [address] [place] [address] PCP - General 03/31/10 documented as of this encounter
--- OUTSIDE RECORDS SUMMARY | 2024-02-24 01:56 | XMS_ITS | Encounter Summary ---
Author Organization [facility] Address [facility] [place] [address] Care Team Providers Care Upper Inspector Name Role Phone Taylor Bryant APRN Primary Care Provider [phone] Encounter Details Date Type Department Care Team (Latest Contact Info) Description 12/26/2023 Travel Social History Tobacco Use Types Packs/Day [...] TH Visit (TeleHealth) Hematology [place] [address] Jean-Pierre Peña MD [facility] DR [place] [address] Vicky Burnham APRN [facility] [place] [address] 02/28/2024 11:30 AM EDT Infusion Hematology Oncology at [address] [address] 03/19/2024 12:45 PM EST Laboratory Appointment Lab at [facility] H[place]ology Oncology [address] [place] [address] 03/19/2024 1:45 PM EST Office Visit Hematology [place] [phone] Jean-Pierre Peña MD [facility] DR [place] [address] Vicky Burnham APRN [facility] [place] [address] 03/19/2024 3:30 PM EST Appointment Hematology [place] [phone] 04/30/2024 12:15 PM EST Laboratory Appointment Lab at [facility] Hematology Oncology [address] [place] [address] 04/30/2024 1:15 PM EST Office Visit Hematology [place] [phone] Jean-Pierre Peña MD [facility] DR [place] [address] Vicky Burnham OUTSIDE REPAIRER SPECIAL [facility] [place] [address] 04/30/2024 2:30 PM EST Appointment Hematology [place] [address] 05/22/2024 11:30 AM EST Office Visit Dermatology at [address] [phone] Inderjit Vilchis MD [facility] [place] [address] documented as of this encounter Visit Diagnoses Not on filedocumented in this encounter Care Teams Upper Inspector Relationship Specialty Start Date End Date Taylor Bryant APRN [address] [place] [address] PCP - General 03/31/10 documented as of this encounter
--- OUTSIDE RECORDS SUMMARY | 2024-02-24 01:56 | XMS_ITS | Encounter Summary ---
Author Organization [facility] Address [facility] [place] [address] Care Team Providers Care Child Nutrition Assistant Name Role Phone Taylor Bryant APRN Primary Care Provider [phone] Reason for Visit * Reason Onset Date Comments Other 01/19/2024 Positive for cov id Encounter Details Date Type Department Care Team ([facility] Contact Info) Description 01/19/2024 Telephone Hematology/Oncology at [address] [address] Yaneli Gupta RN Other (Positive for covid) Social History Tobacco Use Types Packs/Day Years Used Date Smoking Tobacco: Former Smokeless Tobacco: Never Comments:quit at age 35 Alcohol Use Standard Drinks/Week Comments Yes 0 (1 standard drink = 0.6 oz pur e alcohol) social gatherings [facility] Utilities Answer Date Recorded In [...] encounter Miscellaneous Notes * Telephone Encounter - Yaneli Gupta RN - 01/19/2024 11:01 AM EDT Pt called sttaing she had a head cold. Her boyfriend had been sick also but is feeling better now. She has no fever. Asked her to test for covid test came back positive. She will not get infusion today. Dr. Peña updated. Pt will ocntact PCP for possible paxlovid. Pt will be rescheduled in [address] Peña. Left message for pt about her next lacey. documented in this encounter Plan of Treatment Upcoming Encounters Date Type Department Care Team (Late st Contact Info) Description 02/27/2024 8:15 AM EDT TH Visit (TeleHealth) [place]ology [place] [phone] Jean-Pierre Peña MD [facility] HEMATOLOGY [place] [address] Vicky Burnham APRN [facility] [place] [address] 02/28/2024 11:30 AM EDT Infusion Hematology Oncology at [address] [address] 03/19/2024 12:45 PM EST Laboratory Appointment Lab at [facility] Hematology Oncology [address] [place] [address] 03/19/2024 1:45 PM EST Office Visit Hematology [place] [phone] Jean-Pierre Peña MD [facility] HEMATOLOGY [place] [address] Vicky Burnham APRN [facility] [place] [address] 03/19/2024 3:30 PM EST Appointment Hematology [place] [address] 04/30/2024 12:15 PM EST Laboratory Appointment Lab at [facility] Hematology Oncology [address] [place] [address] 04/30/2024 1:15 PM EST Office Visit Hematology [place] [phone] Jean-Pierre Peña MD [facility] DR HEMATOLOGY [place] [address] Vikcy Burnham APRN [facility] [place] [address] 04/30/2024 2:30 PM EST Appointment Hematology [place] [address] 05/22/2024 11:30 AM EST Office Visit Dermatology at [facility] [address] [place] [address] Inderjit Vilchis MD [facility] DR GILBERTO [place] [address] documented as of this encounter Visit Diagnoses Not on filedocumented in this encounter Care Teams Child Nutrition Assistant Relationship Specialty Start Date End Date Taylor Bryant APRN [address] [place] [address] PCP - General 03/31/10 documented as of this encounter
--- OUTSIDE RECORDS SUMMARY | 2024-02-24 01:56 | XMS_ITS | Encounter Summary ---
[facility] Address [facility] [place] [address] Care Team Providers Care Occupational Rehabilitation Aide Name Role Phone Taylor Bryant APRN Primary Care Provider [phone] Encounter Details Date Type Department Care Team ([facility] st Contact Info) Description 01/05/2024 Interpretation Only [address] [phone] Taylor Bryant APRN [address] [place], [place] [id number] Social History Tobacco Use Types Packs/Day Years [...] place to sleep or slept in a fdc (including now)? No 07/24/2023 IPV Inpatient Questions [...] TH Visit (TeleHealth) Hematology [place] [address] Jean-Pierre Peña MD [facility] DR [place] [address] [facility] [place] [address] 02/28/2024 11:30 AM EDT Infusion Hematology Oncology at [address] [address] 03/19/2024 12:45 PM EST Laboratory Appointment Lab at [facility] Hematology Oncology [address] [place] [address] 03/19/2024 1:45 PM EST Office Visit Hematology [place] [address] Jean-Pierre Peña MD [facility] DR [place] [address] [facility] [place] [address] 03/19/2024 3:30 PM EST Appointment Hematology [place] [phone] 04/30/2024 12:15 PM EST Laboratory Appointment Lab at [facility] Hematology [address] [address] 04/30/2024 1:15 PM EST Office Visit Hematology [place] [address] Jean-Pierre Peña MD [facility] [address] [place] [address] Vicky Burnham FOOD MIXER ASSEMBLER [facility] [place] [address] 04/30/2024 2:30 PM EST Appointment Hematology [place] [address] 05/22/2024 11:30 AM EST Office Visit Dermatology at [address] [phone] Inderjit Vilchis MD [facility] [address] GIL[facility]ERT[place] [address] documented as of this encounter Procedures Procedure Name Priority Date/Time Associated Diagnosis Comments MAMMO SCREENING CAD BILATERAL (CH) Routine 01/05/2024 10:03 AM EDT documented in this encounter Results * MAMMO SCREENING CAD BILATERAL (CH) (01/05/2024 10:03 AM EDT) PT CLASS O RAD ADMITDTTM [id number] RAD PT RAD INFO [id number]^Bristo l^Taylor RAD EXAM DESC MADDSCCH^MG Mammo Digital Screening Bilateral.^RIS RAD WORKSTATION ID [id number] RAD Anatomical Region Laterality Modality Other 01/05/2024 10:0 3 AM EDT Impressions 01/05/2024 2:18 PM EDT BI-RADS Category 1: Negative RECOMMENDATION: Routine mammography screening * ??Regular screening mammograms starting at age 40 reduce the risk of from breast cancer. * ??Individuals should discuss the risks and benefits with their provider to determine their preferred breast cancer screening schedule, and at what age screening should stop. * ??Individuals should report any breast changes to a health care provider right away. * ??Some Individuals, because of their family history, a genetic tendency, or other factors, should consider being screened with annual breast MRI as well as with mammograms. * ??Screening mammography may not detect 10-15% of?breast cancers. Thank you for letting us participate in the care of this patient. ??If you are a health care provider and have any questions regarding this report, please contact the number below. ??For patients who have questions please contact the health care director rn that requested your imaging first. ? [address] ??[address] Narrative 01/05/2024 2:18 PM EDT EXAMINATION: MG Mammo Digital Screening Bilateral. REASON FOR EXAM: Screening Family history of breast cancer: sister Reproductive history: Parous No personal history of breast cancer. COMPARISON: Previous mammograms were reviewed. TECHNIQUE: ??CC and MLO views were obtained of BOTH breasts. 2D and 3D tomosynthesis images were obtained. Computer aided detection was used FINDINGS: There are no suspicious microcalcifications, masses, or areas of distortion. No changes compared to prior studies. BREAST DENSITY: The breasts are almost entirely fatty. Procedure Note Killian Herman MD - 01/05/2024 EXAMINATION: MG Mammo Digital Screening Bilateral. REASON FOR EXAM: Screening Family history of breast cancer: sister Reproductive history: Parous No personal history of breast cancer. COMPARISON: Previous mammograms were reviewed. TECHNIQUE: CC and MLO views were obtained of BOTH breasts. 2D and 3D tomosynthesis images were obtained. Computer aided detection was used FINDINGS: There are no suspicious microcalcifications, masses, or areasof distortion. No changes compared to prior studies. BREAST DENSITY: The breasts are almost entirely fatty. IMPRESSION BI-RADS Category 1: Negative RECOMMENDATION: Routine mammography screening * Regular screening mammograms starting at age 40 reduce the risk ofdeath from breast cancer. * Individuals should discuss the risks and benefits with their providerto determine their preferred breast cancer screening schedule, and at whatage screening should stop. * Individuals should report any breast changes to a health care providerright away. * Some Individuals, because of their family history, a genetic tendency,or other factors, should consider being screened with annual breast MRI aswell as with mammograms. * Screening mammography may not detect 10-15% of?breast cancers. Thank you for letting us participate in the care of this patient. If youare a health care provider and have any questions regarding this report,please contact the number below. For patients who have questions please contactthe health care director rn that requested your imaging first. Electronically signed by: Killian Herman MD, [facility]([phone]), at 01/05/2024 2:[address] [address] Taylor Bryant APRN PACS IMAGES documented in this encounter Visit Diagnoses Not on filedocumented in this encounter Care Teams Occupational Rehabilitation Aide Relationship Specialty Start Date End Date Taylor Bryant, FOOD MIXER ASSEMBLER [address] [place] [address] PCP - General 03/31/10 documented as of this encounter
--- OUTSIDE RECORDS SUMMARY | 2024-02-24 01:56 | XMS_ITS | Encounter Summary ---
Author Organization [facility] Address [facility] [place] [address] Care Team Providers Care Rate Supervisor Name Role Phone AnnetteTaylor ZARA Primary Care Provider [phone] Reason for Visit * Consultation (Routine) - Closed Specialty Diagnoses / Procedures Referred By Crista padron Referred To Contact Wound Care Diagnoses Malignant melanoma of scalp Norm Joy PA [facility] [place] [address] [facility] [place] [address] Referral ID Status Reason Start Date Expiration Date V isits Requested Visits Authorized [id number] Closed Consult, Test & Treat 12/22/2023 12/21/2024 1 1 Encounter Details Date Type Department Care Team (Late st Contact Info) Description 01/25/2024 10:30 AM EDT Office [place] [address] Marisabel Alcantar APRN [facility] [place] [address] 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; Skin wound from surgical incision on right thigh Social History Tobacco Use Types Packs/Day Years Used Date Smoking Tobacco: Former Smokeless Tobacco: Never Comments:quit at age 35 Alcohol Use Standard Drinks/Week Comments Yes 0 (1 standard drink = 0.6 oz pur e alcohol) social gatherings [facility] Utilities Answer Date Recorded In the past 12 months has [employer], gas, oil, or water [employer] threatened to shut off services in your [...] Sign Reading Time Taken Comments Blood Pressure 138/80 01/25/2024 10:49 AM EDT Pulse 64 01/25/2024 10:49 AM EDT Temperature - - Respiratory Rate 20 01/25/2024 10:49 AM EDT Oxygen Saturation 99% 01/25/2024 10:49 AM EDT Inhaled Oxygen Concentration - - Weight - - Height - - Body Mass Index - - documented in this encounter Patient Instructions * Patient Instructions* Marisabel Alcantar APRN - 01/25/2024 10:30 AM EDT Wound care Instructions: Right thigh - Change top adhesive dressing every 1-2 days or sooner for 50% or greater strike through drainage. Remove old dressing. Rinse off the clear dressing with wound cleanser or normal saline and pat with gauze. Cover wound bed with non-bordered foam and secure with tape or similar. In 3-4 days change all of the dressings, gently cleanse wound surface and reapply a piece of the clear Mepitel One dressing over the site and cover with foam dressing Monitor for signs of infection which may include: Fever Sweats Chills Nausea, Vomiting or Diarrhea Unexplained increase in Blood Glucose levels At or around the wound site: Increased pain Swelling or edema Redness Warmth Purulent drainage (thick yellow/green drainage) Malodor Contact the [facility] with any above symptoms Tuesday- Tuesday 8:00AM-4:30PM ([phone]). If weekends / holidays / evenings, please report to the Emergency Department. High Protein foods: try to eat 5-6 servings of these per day Beef, chicken, fish Beans, Lentils, peanut butter Georgian and regular yogurt Cheese, eggs Boost, Ensure shakes Protein powder in a smoothie of your choice documented in this encounter Progress Notes * Marisabel Alcantar APRN - 01/25/2024 10:30 AM EDT Images from the original note were not included. [facility] Initial Consultation Note Reason for Visit: Keeley Gutierrez is a 58 y.o. female referred by PATEL Brooks for evaluation of donor site on the right thigh. HPI: Patient underwent staged resection/SLNB 09/16/23 and reconstruction using rearrangement and STSG R thigh 09/28/23 for treatment of malignant melanoma of scalp. The surgical site on the scalp has healed. On patients visit on 8/15/24, it was noted that only a portion of the donor site was healed. The medical history and recent labs were reviewed prior to the patient's appointment. 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 Medication management Z79.899 Social History Socioeconomic History Marital status: Spouse [...] Unstable Housing in the Last Year: No Diagnostics: SHANTEL's: na Imaging: not of thigh Pertinent labs: Latest Reference Range & Units 12/26/23 11:36 White Blood Cell 4.00 - 9.50 x10(3)/mcL 7.67 Red Blood Cell 4.00 - 5.21 x10(6)/mcL 4.18 Hemoglobin 11.7 - 15.5 g/dL 12.6 Hematocrit 35.7 - 45.8 % 38.7 Latest Reference Range & Units 12/26/23 11:36 Glucose 65 - 199 mg/dL 106 Latest Reference Range & Units 12/26/23 11:36 Protein, Total 6.1 - 8.0 g/dL 6.7 Albumin 3.2 - 5.2 g/dL 4.0 Review Of Systems: Denies constitutional symptoms of fever, chills, sweats, fatigue. Neuro: denies TOMLIN, dizziness CV: Denies CP, SOB GI: denies N/V, diarrhea : Denies voiding issues Diet: good Wound care: antibiotic ointment and dressing Leg fatigue, calf cramping, skin itching: no Neuropathy: no Pain: yes FBS today na PE: General: pleasant, in NAD Mobility: independent Edema: no Wound Measurement Initial, 01/25/24 Wound bed/ Thickness Periwound Drainage Odor Debridement Primary Dressing Secondary Dressing Right upper thigh 4.4 x 3.5 x < 0.1 cm Full 60% epithelial 40% granulation Skin tone Moderate serosanguinous No Mechanical (irrigation/cleansing and gauze or wet-to-dry dressings) Mepitel One Allevyn, tape PHOTO taken today: Wound treatment: Cleansed wound with NS / Wound cleansed with VASHE wound cleanser Analgesia: Lidocaine jelly 2% Non-selective mechanical debridement of devitalized tissue of the right thigh was performed using aDebrisoft lolly/pad. Bleeding easily resolved with normal saline Patient tolerated treatment well. Dressing: as above Assessment/ Plan: Keeley Gutierrez is a 58 y.o. female with STSG donor site on the upper right thigh which is slowly healing, surgery was performed on 09/28/23. Surgical site on scalp has fully healed. Patient was seen by dermatology for follow up in December, silver nitrate was applied to the distalcorner of the ulcer which has since epithelialized. Patient does NOT want to repeat that treatment a s it was very painful. The center of the skin graft remains open with slight hypergranulation tissue and thin clear gelatinous film. Discussed biofilm and effect on impeding healing. At this time, triamcinolone cream applied to the wound bed to treat hypergranulation tissue, mepitel One applied over the entire site and covered with Allevyn non adherent foam secured with tape. Discussed dressing changes and treatment with patient who has the dressing changes by her . Samples provided and patient will return at the end of the month to coordinate with other appointments at [facility]. If the area is healed she will cancel the appointment or call/contact us via patient portal if she has any con cerns prior to the appointment. Verbal and written wound care instructions were provided. The patient will call with any questions or concerns. 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 Follow up: 2 weeks Wound care Instructions: Right thigh - Change top adhesive dressing every 1-2 days or sooner for 50% or greater strike through drainage. Remove old dressing. Rinse off the clear dressing with wound cleanser or normal saline and pat with gauze. Cover wound bed with non-bordered foam and secure with tape or similar. In 3-4 days change all of the dressings, gently cleanse wound surface and reapply a piece of the clear Mepitel One dressing over the site and cover with foam dressing Monitor for signs of infection which may include: Fever Sweats Chills Nausea, Vomiting or Diarrhea Unexplained increase in Blood Glucose levels At or around the wound site: Increased pain Swelling or edema Redness Warmth Purulent drainage (thick yellow/green drainage) Malodor [facility] with any above symptoms Tuesday- Tuesday 8:00AM-4:30PM ([phone]). If weekends / holidays / evenings, please report to the Emergency Department. High Protein foods: try to eat 5-6 servings of these per day Beef, chicken, fish Beans, Lentils, peanut butter Georgian and regular yogurt Cheese, eggs Boost, Ensure shakes Protein powder in a smoothie of your choice Cc: Norm Joy PA [facility] [place] [address] PCP: Taylor Bryant APRN Wound care supplies ordered. Allevyn foam 4 x 4, gauze, saline, 01/25/24: Supplies ordered through [employer] documented in this encounter Plan of Treatment Upcoming Encounters Date Type Department Care Team (Late st Contact Info) Description 02/27/2024 8:15 AM EDT TH Visit (TeleHealth) Hematology [place] [phone] Jean-Pierre Peña MD [facility] DR [place] [address] Vicky Burnham APRN [facility] [place] [address] 02/28/2024 11:30 AM EDT Infusion Hematology Oncology at [address] [address] 03/19/2024 12:45 PM EST Laboratory Appointment Lab at [facility] Hematology Oncology [address] [place] [address] 03/19/2024 1:45 PM EST Office Visit Hematology [place] [phone] Jean-Pierre Peña MD [facility] [place] [address] Vicky Burnham APRN [facility] [address] 03/19/2024 3:30 PM EST Appointment Hematology [place] [phone] 04/30/2024 12:15 PM EST Laboratory Appointment Lab at [facility] Hematology Oncology [address] [place] [address] 04/30/2024 1:15 PM EST Office Visit Hematology [place] [address] Jean-Pierre Peña MD [facility] DR [place] [address] Vicky Burnham APRN [facility] [place] [address] 04/30/2024 2:30 PM EST Appointment Hematology [place] [address] 05/22/2024 11:30 AM EST Office Visit Dermatology at [address] [address] Inderjit Vilchis MD [facility] DR G[facility]ERT[facility] [place] [address] Scheduled Referrals Name Type Priority Associated Diagnoses Orde r Schedule Referral to Wound Clinic Outpatient Referral Routine Malignant melanoma of scalp Ordered: 12/22/2023 documented as of this encounter Visit Diagnoses Diagnosis 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
--- OUTSIDE RECORDS SUMMARY | 2024-02-24 01:56 | XMS_ITS | Clinical Summary ---
Author Organization [facility] Address [facility] [place] [address] Care Team Providers Care Flask Pusher Name Role Phone Taylor Bryant ZARA Primary Care Provider [phone] Allergies Active Allergy Reactions Criticality Noted Date Comments Codeine Phosphate CIS - vomit Medications Medication Sig Dispensed Refills Start Date End Date Status FLUoxetine (PROZAC) 40 mg Capsule Take 40 mg by mouth daily. Active cholecalciferol, Vitamin D3, 50 mcg (2,000 unit) Capsule Take by mouth. Active ascorbic acid, Vitamin C, (Vitamin C) 500 mg tablet Take 500 mg by mouth daily. Active multivit-min/vit C/herb no.124 (AIRBORNE GUMMY ORAL) Take by mouth. Active minoxidiL (Loniten) 2.5 mg tabletIndications:Luis r loss Take 0.5 tablets by mouth daily. 90 tablet 1 12/21/2023 Active predniSONE (Deltasone) 5 mg tablet Take 2 tablets by mouth every morning. 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 Medication management 07/25/2023 Bilateral knee pain 12/14/2017 Psoriatic arthritis 06/09/2016 Encounters Date Type Department Care Team Description 02/15/2024 8:30 AM EDT Office Visit Dermatology at [facility] [address] [place] [address] Kendra De MD Epidermal inclusion cyst 02/15/2024 Travel 02/06/2024 12:45 PM EDT Office Visit [place] [address] Jean-Pierre Peña MD Neilan, Kathleen M, APRN Malignant melanoma of scalp (Primary Dx); 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, unspecified lymph node region; Medication management; Secondary malignancy of soft tissue; Immunotherapy 02/06/2024 9:24 AM EDT - 02/06/2024 11:59 PM EDT Hospital Encounter Hematology and Oncology at [place] [id number] Medication management; Malignant melanoma of scalp; 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, unspecified lymph node region Discharge Disposition: Home 02/06/2024 9:23 AM EDT Hospital Encounter Hematology and Oncology at [place] [id number] Medication management; Malignant melanoma of scalp; 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, unspecified lymph node region Discharge Disposition: Home 02/06/2024 9:14 AM EDT - 02/06/2024 9:22 AM EDT [place] [address] Jean-Pierre ePña MD Malignant melanoma of scalp; Secondary malignancy of soft tissue Discharge Disposition: Home 02/05/2024 Travel 01/25/2024 10:30 AM EDT Office Visit Wound Care at [place] [phone] Marisabel Alcantar APRN 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; Skin wound from surgical incision on right thigh 01/25/2024 Orders Only [place] [address] Jean-Pierre Peña MD 01/24/2024 Travel 01/19/2024 Telephone Hematology/Oncolog y at [address] [address] Yaneli Gupta RN Other (Positive for covid) 01/18/2024 11:00 AM EDT TH Visit (TeleHealth) [place] [address] Jean-Pierre Peña MD Malignant melanoma of scalp (Primary Dx); Medication management; Secondary malignancy of soft tissue; Immunotherapy 01/17/2024 Travel 01/05/2024 Interpretation Only [address] [address] Taylor Bryant APRN 01/02/2024 Orders Only [place] [address] Vicky Burnham, ZARA Malignant melanoma of scalp; Medication management 12/26/2023 12:45 PM EDT Office Visit [place] [address] Jean-Pierre Peña MD Neilan, Kathleen M, ZARA Malignant melanoma of scalp (Primary Dx); 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, unspecified lymph node region; Secondary malignancy of soft tissue; Medication management 12/26/2023 11:28 AM EDT - 12/26/2023 11:59 PM EDT Hospital Encounter [place] [address] Medication management; Malignant melanoma of scalp; 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, unspecified lymph node region Discharge Disposition: Home 12/26/2023 11:27 AM EDT Hospital Encounter [place] [address] Medication management; Malignant melanoma of scalp; 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, unspecified lymph node region Discharge Disposition: Home 12/26/2023 Travel 12/22/2023 10:00 AM EDT [place] [address] Castro Preciado MD Malignant melanoma of scalp 12/22/2023 Travel 12/20/2023 2:15 PM EDT Office Visit Dermatology at [facility] [address] [place] [address] Inderjit Vilchis MD History of melanoma; Seborrheic keratosis; Solar lentigo; Multiple benign melanocytic nevi of both upper extremities, both lower extremities, and trunk; [place]ourke angioma; Hair loss; Healing wound 12/19/2023 Travel 12/15/2023 Telephone Hematology and Oncology at [place] [address] Cheryl Daley RN 12/12/2023 Telephone Hematology [place] [address] Gianna Sanabria RN 12/07/2023 External Results Hematology and Oncology at [place] [address] Jean-Pierre Peña MD 12/06/2023 Telephone Hematology [place] [address] Gianna Sanabria RN 12/05/2023 Telephone Hematology [place] [address] Gianna Sanabria RN 11/29/2023 Orders Only Hematology and Oncology at [place] [address] Vicky Burnham, FAMILY AND MARRIAGE COUNSELLOR 11/29/2023 Telephone Hematology [place] [address] Gianna Sanabria, GEMMA from Last 3 Months Family History Medical [...] pur e alcohol) social gatherings [facility] Utilities Answer Date Recorded In the [...] Sign Reading Time Taken Comments Blood Pressure 153/85 02/06/2024 12:53 PM EDT Pulse 74 02/06/2024 12:53 PM EDT Temperature 36.7 ??C (98.1 ??F) 02/06/2024 12:53 PM E DT Respiratory Rate 17 02/06/2024 12:53 PM EDT Oxygen Saturation 99% 02/06/2024 12:53 PM EDT Inhaled Oxygen Concentration - - Weight 69.2 kg (152 lb 9.6 oz) 02/06/2024 12:53 PM EDT Height 161 cm (5' 3.39) 02/06/2024 12:53 PM EDT Body Mass Index 26.7 02/06/2024 12:53 PM EDT Plan of Treatment Upcoming Encounters Date Type Department Care Team (Late st Contact Info) Description 02/27/2024 8:15 AM EDT TH Visit (TeleHealth) [place] [address] Jean-Pierre Peña MD [facility] [address] [place] [address] Vicky Burnham APRN [facility] [place] [address] 02/28/2024 11:30 AM EDT Infusion Hematology Oncology at [address] [phone] 03/19/2024 12:45 PM EST Laboratory Appointment [place] [facility] [place] On[place] [address] [place] [address] 03/19/2024 1:45 PM EST Office Visit [place] [address] Jean-Pierre Peña MD [facility] [address] [place] [address] Vicky Burnham FAMILY AND MARRIAGE COUNSELLOR [facility] [place] [place] [address] 03/19/2024 3:30 PM EST Appointment [place]ology [place] [address] 04/30/2024 12:15 PM EST Laboratory Appointment Lab at [facility] [place]ematology Oncology [address] [place] [address] 04/30/2024 1:15 PM EST Office Visit [place] [address] Jean-Pierre Peña MD [facility] [address] [place] [address] Vicky Burnham APRN [facility] [place] [address] 04/30/2024 2:30 PM EST Appointment [place] [address] 05/22/2024 11:30 AM EST Office Visit Dermatology at [facility] [address] [place] [phone] Inderjit Vilchis MD [facility] [place] [address] Health Maintenance Due Date Last Done Comments CT Colonography 1965 Colonoscopy 1965 Colorectal Cancer Screening 1965 FIT DNA 1965 FIT 1965 Sigmoidoscopy (10 year) with FIT yearly 1965 Sigmoidoscopy 1965 Hepatitis B vaccine (0-59 yrs) (1) 1984 Tetanus/Diphtheria/Pertussis Vaccines (1 - Tdap) 1984 HPV test 1995 PAP Smear 1995 Breast Cancer Share Decision Needed 2005 Zoster vaccine (1 of 2) 2015 Advance Directive 2020 Covid-19 Vaccine (1 - 2022-2 4 season) 2024 Influenza (Flu) vaccine (1 o f 1 - Influenza standard series) 01/08/2024 Breast Cancer screening 01/04/2026 01/05/2024 Diabetes Screening (HgbA1C o r Glucose) 02/05/2027 02/06/2024, 12/26/2023, 12/05/2023, Additional history exists HIV screen Completed 07/31/2020 Hepatitis C Screening Completed 07/31/2020 Procedures Procedure Name Priority Date/Time Associated Diagnosis Comments CT NECK SOFT TISSUE W CONTRAST Routine 02/06/2024 11:53 AM EDT Malignant melanoma of scalp Secondary malignancy of soft tissue CT CHEST ABDOMEN PELVIS W CONTRAST (GENERIC) Routine 02/06/2024 11:53 AM EDT Malignant melanoma of scalp CORTISOL STAT Add-On 02/06/2024 9:30 AM EDT Malignant melanoma of scalp Medication management LACTATE DEHYDROGENASE STAT 02/06/2024 9:30 AM EDT Medication management 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, unspecified lymph node region T4, FREE STAT 02/06/2024 9:30 AM EDT Medication management 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, unspecified lymph node region TSH STAT 02/06/2024 9:30 AM EDT Medication management 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, unspecified lymph node region COMPREHENSIVE METABOLIC PANEL STAT 02/06/2024 9:30 AM EDT Medication management 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, unspecified lymph node region CBC (WITH DIFF) STAT 02/06/2024 9:30 AM EDT Medication management 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, unspecified lymph node region MAMMO SCREENING CAD BILATERAL (CH) Routine 01/05/2024 10:03 AM EDT LACTATE DEHYDROGENASE STAT 12/26/2023 11:36 AM EDT Medication management 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, unspecified lymph node region T4, FREE STAT 12/26/2023 11:36 AM EDT Medication management 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, unspecified lymph node region TSH STAT 12/26/2023 11:36 AM EDT Medication management 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, unspecified lymph node region COMPREHENSIVE METABOLIC PANEL STAT 12/26/2023 11:36 AM EDT Medication management 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, unspecified lymph node region CBC (WITH DIFF) STAT 12/26/2023 11:36 AM EDT Medication management 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, unspecified lymph node region COMPREHENSIVE METABOLIC PANEL Routine 12/05/2023 LAB SCAN 12/05/2023 12:00 AM EDT HC HIV SCREEN, 4TH GENERATION Routine 07/31/2020 4:37 PM EDT Psoriatic arthritis Effusion of left knee Medication monitoring encounter High risk medication use HC HEPATITIS C ANTIBODY Routine 07/31/2020 4:37 PM EDT Psoriatic arthritis Effusion of left knee Medication monitoring encounter High risk medication use from Last 3 Months or Most Recently Relevant to Health Maintenance Results * CT Chest Abdomen Pelvis w Contrast (Generic) (02/06/2024 11:53 AM EDT) [employer] WORKSTATION ID [id number] DH RAD Anatomical Region Laterality Modality Abdomen, Pelvis Computed Tomogra phy Impressions 02/07/2024 7:46 PM EDT No metastatic disease in the chest, abdomen or pelvis. Thank you for letting us participate in the care of this patient. ??If you are a health care provider and have any questions regarding this report, please contact the number below. ??For patients who have questions please contact the health career and technology education teacher that requested your imaging first. ? 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 Administered 110.0 ml of OMNIPAQUE 350.00 mg/ml. Oral contrast was administered. COMPARISON: PET scan July 11, 2023 FINDINGS: Chest: Lungs and large airways: No nodule nor mass Pleura: No effusion. Heart/vasculature: Normal size heart without significant pericardial effusion Lymph nodes: No enlarged lymph nodes. Mediastinum and conor: Normal. Chest wall: Unremarkable. Abdomen/pelvis: Liver: Normal size and attenuation without lesions. Bile ducts: Nondilated. Gallbladder: Absent Pancreas: Normal attenuation without ductal dilatation. Spleen: Normal. Adrenals: Normal. Kidneys: Normal. Urinary Bladder: Smooth-walled. Incompletely distended. Vasculature: Normal caliber abdominal aorta. Patent portal, hepatic and renal veins. Lymph Nodes: No enlarged lymph nodes. Bowel: Nondilated, no wall thickening. ?? Peritoneum and retroperitoneum: No free fluid or loculated fluid collection. No pneumoperitoneum. No mesenteric inflammation. Abdominal wall: No muscular asymmetry Reproductive organs: Uterus absent Osseous structures: No suspicious lesions. 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 Administered 110.0 ml ofOMNIPAQUE 350.00 mg/ml. Oral contrast was administered. COMPARISON: PET scan July 11, 2023 FINDINGS: Chest: Lungs and large airways: No nodule nor mass Pleura: No effusion. Heart/vasculature: Normal size heart without significant pericardialeffusion Lymph nodes: No enlarged lymph nodes. Mediastinum and conor: Normal. Chest wall: Unremarkable. Abdomen/pelvis: Liver: Normal size and attenuation without lesions. Bile ducts: Nondilated. Gallbladder: Absent Pancreas: Normal attenuation without ductal dilatation. Spleen: Normal. Adrenals: Normal. Kidneys: Normal. Urinary Bladder: Smooth-walled. Incompletely distended. Vasculature: Normal caliber abdominal aorta. Patent portal, hepatic andrenal veins. Lymph Nodes: No enlarged lymph nodes. Bowel: Nondilated, no wall thickening. Peritoneum and retroperitoneum: No free fluid or loculated fluidcollection. No pneumoperitoneum. No mesenteric inflammation. Abdominal wall: No muscular asymmetry Reproductive organs: Uterus absent Osseous structures: No suspicious lesions. IMPRESSION No metastatic disease in the chest, abdomen or pelvis. Thank you for letting us participate in the care of this patient. If youare a health care provider and have any questions regarding this report,please contact the number below. For patients who have questions please contactthe health career and technology education teacher that requested your imaging first. Electronically signed by: Ronel Driscoll MD, [facility]([phone]), at 02/07/2024 7:46 PM Jean-Pierre Peña MD IMG CT ORDERABLES * CT Neck Soft Tissue w Contrast (Generic) (02/06/2024 11:53 AM EDT) WORKSTATION ID [id number] RAD Anatomical Region Laterality Modality Neck, Head Computed Tomogra phy Impressions 02/07/2024 10:09 AM EDT No soft tissue mass or pathologic adenopathy. Thank you for letting us participate in the care of this patient. ??If you are a health care provider and have any questions regarding this report, please contact the number below. ??For patients who have questions please contact the health career and technology education teacher that requested your imaging first. ? 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 . 1 10 mL Omnipaque 350 administered. COMPARISON: PET/CT 07/11/2023 FINDINGS: There is no soft tissue mass or pathologic adenopathy by size criteria in the neck. Small bilateral level 2 lymph nodes are present, unchanged in size compared to the prior studies, allowing for differences in technique. The aerodigestive tract is unremarkable. Aggressive osseous lesion. Limited evaluation of intracranial structures is unremarkable. 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 . 1 10mL Omnipaque 350 administered. COMPARISON: PET/CT 07/11/2023 FINDINGS: There is no soft tissue mass or pathologic adenopathy by size criteria inthe neck. Small bilateral level 2 lymph nodes are present, unchanged in size compared to the prior studies, allowing for differences in technique.The aerodigestive tract is unremarkable. Aggressive osseous lesion. Limited evaluation of intracranial structures is unremarkable. IMPRESSION No soft tissue mass or pathologic adenopathy. Thank you for letting us participate in the care of this patient. If youare a health care provider and have any questions regarding this report,please contact the number below. For patients who have questions please contactthe health career and technology education teacher that requested your imaging first. Electronically signed by: Isma Cordova MD, [facility]([phone]), at 02/07/2024 10:09 AM Jean-Pierre Peña MD IMG CT ORDERABLES * (ABNORMAL) CBC (with Diff) (02/06/2024 9:30 AM EDT) Only the most recent of2 resultswithin the time period is included. White Blood Cell 6.78 4.00 - 9.50 x10(3)/mc L 02/06/2024 10:21 AM [facility] Red Blood Cell 3.93(L) 4.00 - 5.21 x10(6)/mc L 02/06/2024 10:21 AM [facility] Hemoglobin 12.1 11.7 - 15.5 g/dL 02/06/2024 10:21 AM [facility] Hematocrit 36.2 35.7 - 45.8 % 02/06/2024 10:21 AM [facility] Mean Cell Volume 92.1 82.6 - 94.4 fL 02/06/2024 10:21 AM [facility] Mean Cell Hemoglobin 30.8 27.1 - 32.0 pg 02/06/2024 10:21 AM [facility] Mean Cell Hemoglobin Concentration 33.4 31.7 - 35.0 g/dL 02/06/2024 10:21 AM [facility] Platelet 321 145 - 357 x10(3)/mc L 02/06/2024 10:21 AM [facility] Mean Platelet Volume 11.1 7.6 - 12.9 fL 02/06/2024 10:21 AM [facility] RDW Standard Deviation 48.3(H) 37.0 - 46.0 fL 02/06/2024 10:21 AM [facility] RDW coefficient of variation 14.3(H) 11.5 - 14.1 % 02/06/2024 10:21 AM [facility] NRBC% auto 0.0 % 02/06/2024 10:21 AM [facility] NRBC Absolute <0.01 <0.01 x10(3)/mc L 02/06/2024 10:21 AM [facility] Neutrophil % 59.4 % 02/06/2024 10:21 AM [facility] Neutrophil Absolute (ANC) - Automated 4.03 1.70 - 6.10 x10(3)/mc L 02/06/2024 10:21 AM [facility] Lymph % 24.5 % 02/06/2024 10:21 AM [facility] Lymph Absolute 1.66 0.90 - 3.20 x10(3)/mc L 02/06/2024 10:21 AM [facility] Monocyte % 10.8 % 02/06/2024 10:21 AM [facility] Monocyte Absolute 0.73 0.30 - 0.90 x10(3)/mc L 02/06/2024 10:21 AM [facility] Eos % 4.3 % 02/06/2024 10:21 AM [facility] Eos Absolute 0.29 0.00 - 0.40 x10(3)/mc L 02/06/2024 10:21 AM [facility] Basophil % 0.9 % 02/06/2024 10:21 AM [facility] Baso Absolute 0.06 0.00 - 0.10 x10(3)/mc L 02/06/2024 10:21 AM [facility] Immature Gran % 0.1 % 10:21 AM [facility] Immature Gran Absolute <0.04 0.00 - 0.04 x10(3)/mc L 02/06/2024 10:21 AM [facility] Blood VENOUS BLOOD SPECIMEN / Unknown Venipuncture / Unknown 02/06/2024 9:30 AM EDT 02/06/2024 9:30 AM EDT Jean-Pierre Peña MD HEMATOLOGY ORDERABLE S Performing Organization Address [facility] de Phone Number [facility] [place] [address] * TSH (02/06/2024 9:30 AM EDT) Only the most recent of2 resultswithin the time period is included. Thyroid Stimulating Hormone 0.67 0.27 - 4.20 mcIU/mL 02/06/2024 10:45 AM EDT [facility] Comment: Reference Interval (mcIU/mL): ?? Females: ? First Trimester: 0.23-3.88 ? Second Trimester: 0.22-3.90 ? Third Trimester: 0.44-4.66 Blood VENOUS BLOOD SPECIMEN / Unknown Venipuncture / Unknown 02/06/2024 9:30 AM EDT 02/06/2024 9:30 AM EDT Jean-Pierre Peña MD CHEMISTRY ORDERABLES Performing Organization Address [facility] de Phone Number [facility] [place] [address] * T4, free (02/06/2024 9:30 AM EDT) Only the most recent of2 resultswithin the time period is included. Free T4 1.33 0.93 - 1.70 ng/dL 02/06/2024 10:45 AM EDT [facility] Comment: Reference Interval (ng/dL): ?? Females: ? First Trimester: 0.97-1.68 ? Second Trimester: 0.77-1.51 ? Third Trimester: 0.77-1.49 Blood VENOUS BLOOD SPECIMEN / Unknown Venipuncture / Unknown 02/06/2024 9:30 AM EDT 02/06/2024 9:30 AM EDT Jean-Pierre Peña MD CHEMISTRY ORDERABLES Performing Organization Address City/[facility]/ZIP Co de Phone Number [facility] [place] [place] [address] * Lactate Dehydrogenase (02/06/2024 9:30 AM EDT) Only the most recent of2 resultswithin the time period is included. Lactate Dehydrogenase 163 110 - 220 unit/L 02/06/2024 10:45 AM EDT [facility] Blood VENOUS BLOOD SPECIMEN / Unknown Venipuncture / Unknown 02/06/2024 9:30 AM EDT 02/06/2024 9:30 AM EDT Jean-Pierre Peña MD CHEMISTRY ORDERABLES Performing Organization Address [facility] de Phone Number [facility] [place] [address] * (ABNORMAL) Cortisol (02/06/2024 9:30 AM EDT) Cortisol 4.5(L) 4.8 - 19.5 mcg/dL 02/06/2024 1:40 PM EDT [facility] Blood VENOUS BLOOD SPECIMEN / Unknown Venipuncture / Unknown 02/06/2024 9:30 AM EDT 02/06/2024 9:30 AM EDT Narrative [facility] - 02/06/2024 1:40 PM EDT The morning cortisol reference interval (4.8 - 19.5 mcg/dL) is applied to specimens collected between 6-10 AM. ??The afternoon reference interval (2.5 - 11.9 mcg/dL) is applied to specimens collected between 4-8 PM. Specimens collected outside these times are flagged for the extremes for visibility (2.5 - 19.5 mcg/dL) and like all laboratory values should be evaluated with clinical context. Jean-Pierre Peña MD CHEMISTRY ORDERABLES Performing Organization Address City/[facility]/ZIP Co de Phone Number [facility] [place] [address] * (ABNORMAL) Comprehensive metabolic panel (02/06/2024 9:30 AM EDT) Only the most recent of3 resultswithin the time period is included. Glucose 89 65 - 199 mg/dL 02/06/2024 10:45 AM [facility] Comment:Glucose Concentratio n >=200 mg/dL plus symptoms is consistent with Diabetes Mellitus. Blood Urea Nitrogen 18 8 - 18 mg/dL 02/06/2024 10:45 AM EDT [facility] Creatinine 0.95 0.70 - 1.20 mg/dL 02/06/2024 10:45 AM [facility] Sodium 144 135 - 145 mMol/L 02/06/2024 10:45 AM [facility] Potassium 3.7 3.5 - 5.0 mMol/L 02/06/2024 10:45 AM [facility] Chloride 109(H) 98 - 107 mMol/L 02/06/2024 10:45 AM [facility] Carbon Dioxide 24 22 - 31 mMol/L 02/06/2024 10:45 AM [facility] Anion Gap 11 5 - 15 mMol/L 02/06/2024 10:45 AM [facility] Calcium 9.2 8.5 - 10.5 mg/dL 02/06/2024 10:45 AM [facility] Protein, Total 6.5 6.1 - 8.0 g/dL 02/06/2024 10:45 AM [facility] Albumin 4.1 3.2 - 5.2 g/dL 02/06/2024 10:45 AM [facility] Aspartate Aminotransferase 12 <=30 unit/L 02/06/2024 10:45 AM [facility] Alanine Aminotransferase 11 0 - 30 unit/L 02/06/2024 10:45 AM [facility] Alkaline Phosphatase 56 35 - 105 unit/L 02/06/2024 10:45 AM EDT [facility] Bilirubin, Total 0.6 <=1.3 mg/dL 02/06/2024 10:45 AM EDT [facility] Est Glomerular Filtration Rate - Female 70 mL/min/1. 73 m?? 02/06/2024 10:45 AM EDT [facility] Comment: This patient's [...] urine creatinine clearance. Assignment of CKD stage 1 - 5 for patients with an eGFR near the transition point between stages may be based on clinical assessment of muscle mass and symptoms in addition to eGFR. Link: eGFR Calculator [employer] Fasting Status No 02/06/2024 10:45 AM EDT [facility] Blood VENOUS BLOOD SPECIMEN / Unknown Venipuncture / Unknown 02/06/2024 9:30 AM EDT 02/06/2024 9:30 AM EDT Jean-Pierre Peña MD CHEMISTRY ORDERABLES [facility] [place] [id number] * MAMMO SCREENING CAD BILATERAL (CH) (01/05/2024 10:03 AM EDT) PT CLASS O RAD ADMITDTTM [id number] RAD PT RAD INFO [id number]^Bristo l^Taylor RAD EXAM DESC MADDSCCH^MG Mammo Digital [...] have questions please contact the health career and technology education teacher that requested your imaging first. ? Electronically signed by: Killian Herman MD, [facility] ([phone]), at 01/05/2024 2:[address] ??[address] Narrative 01/05/2024 2:18 PM EDT EXAMINATION: MG [...] who have questions please contactthe health career and technology education teacher that requested your imaging first. [address] [address] Taylor Bryant APRN PACS IMAGES * Scan Doc: Lab (12/05/2023 12:00 AM EDT) Narrative 12/05/2023 12:00 AM EDT Ordered by an unspecified provider. Scanning Provider MEDIA MGR SCAN EXT O RDR/RSLT * Hepatitis C Antibody (07/31/2020 4:37 PM EDT) Hepatitis C Antibody Negative Negative [facility] Blood specimen (specimen) 07/31/2020 4:37 PM EDT 07/31/2020 4:50 PM EDT Narrative Resulting Agency Comment Spec In Lab Seamus Rosario MD CHEMISTRY ORDERABLES [facility] [place] [place] [address] * HIV Screen, 4th Generation (MC/CGP/APD/NLH) (07/31/2020 4:37 PM EDT) HIV Ab/Ag Screen Negative Negative [facility] Comment: This 4th Generation [...] In Lab Seamus Rosario MD CHEMISTRY ORDERABLES [facility] [place] [place] [address] from Last 3 Months or Most Recently Relevant to Health Maintenance Advance Directives * Full Code (Latest Code Status on File) Date Activated Date Inactivated Comments 09/28/2023 2:17 PM Question Answer Comments Does patient have capacity to make decision: Yes Care Teams Flask Pusher Relationship Specialty Start Date End Date Taylor Bryant APRN [address] [place] [address] PCP - General 03/31/10
--- OUTSIDE RECORDS SUMMARY | 2024-02-24 01:56 | XMS_ITS | Encounter Summary ---
Author Organization [facility] Address 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 Procedures CT Neck Soft Tissue w Contrast (Generic) Jean-Pierre Peña MD [facility] [address] HEMATOLOGY [place] [address] [facility] [place] [address] Referral ID Status Reason Start Date Expiration Date V isits Requested Visits Authorized [id number] Closed Specialty Service Requested 10/11/2023 04/11/2025 1 1 * Diagnostic Test (Routine) - Closed Specialty Diagnoses / Procedures Referred By Contac t Referred To Contact Radiology Diagnoses Malignant melanoma of scalp Procedures CT Chest Abdomen Pelvis w Contrast (Generic) Jean-Pierre Peña MD [facility] DR HEMATOLOGY [place] [address] [facility] [place] [address] Referral ID Status Reason Start Date Expiration Date V isits Requested Visits Authorized [id number] Closed Specialty Service Requested 10/11/2023 04/11/2025 1 1 Reason for Visit * Diagnostic Test (Routine) - Closed Specialty Diagnoses / Procedures Referred By Contac t Referred To Contact Radiology Diagnoses Malignant melanoma of scalp Procedures CT Chest Abdomen Pelvis w Contrast (Generic) Jean-Pierre Peña MD [facility] [address] HEMATOLOGY [place] [address] [facility] [place] [address] Referral ID Status Reason Start Date Expiration Date V isits Requested Visits Authorized [id number] Closed Specialty Service Requested 10/11/2023 04/11/2025 1 1 Encounter Details Date Type Department Care Team (Latest Contact Info) Description 02/06/2024 9:14 AM EDT - 02/06/2024 9:22 AM EDT Hospital Encounter CT Scan at [facility] [place] [address] Jean-Pierre Peña MD [facility] DR HEMATOLOGY [place] [address] Malignant melanoma of scalp; Secondary malignancy of soft tissue Discharge Disposition: Home Social History Tobacco Use Types Packs/Day Years Used Date Smoking Tobacco: Former Smokeless Tobacco: Never Comments:quit at age 35 Alcohol Use Standard Drinks/Week Comments Yes 0 (1 standard drink = 0.6 oz pur e alcohol) social gatherings [facility] Utilities Answer Date Recorded In the past 12 months has e electric, gas, oil, or water [employer] threatened to shut off services in your [...] in a halfway (including now)? No 07/24/2023 DH IPV Inpatient [...] Sig Dispensed Refills Start Date End Date predniSONE (Deltasone) 5 mg tablet Take 2 tablets by mouth every morning. 60 tablet 5 01/18/2024 minoxidiL (Loniten) 2.5 mg tabletIndications:Hair loss Take 0.5 tablets by mouth daily. 90 tablet 1 12/21/2023 ascorbic acid, Vitamin C, (Vitamin C) 500 mg tablet Take 500 mg by mouth daily. multivit-min/vit C/herb no.124 (AIRBORNE GUMMY ORAL) Take by mouth. cholecalciferol, Vitamin D3, 50 mcg (2,000 unit) Capsule Take by mouth. FLUoxetine (PROZAC) 40 mg Capsule Take 40 mg by mouth daily. TURMERIC ORAL Take by mouth. 02/11/2024 elderberry fruit 350 mg Capsule Take by mouth. 02/11/2024 documented as of this encounter Plan of Treatment Upcoming Encounters Date Type Department Care Team (Late st Contact Info) Description 02/27/2024 8:15 AM EDT TH Visit (TeleHealth) Hematology [place] [phone] Jean-Peirre Peña MD [facility] DR HEMATOLOGY [place] [address] Vicky Burnham APRN [facility] [place] [address] 02/28/2024 11:30 AM EDT Infusion Hematology Oncology at [address] [address] 03/19/2024 12:45 PM EST Laboratory Appointment Lab at [facility] [place] Oncology [address] [place] [address] 03/19/2024 1:45 PM EST Office Visit Hematology [place] [address] Jean-Pierre Peña MD [facility] DR HEMATOLOGY [place] [address] Vicky Burnham ASSOCIATE DRAFTER [facility] [place] [address] 03/19/2024 3:30 PM EST Appointment Hematology [place] [address] 04/30/2024 12:15 PM EST Laboratory Appointment Lab at [facility] Hematology Oncology [address] [place] [address] 04/30/2024 1:15 PM EST Office Visit Hematology [place] [phone] Jean-Pierre Peña MD [facility] DR HEMATOLOGY [place] [address] Vicky Burnham APRN [facility] [place] [address] 04/30/2024 2:30 PM EST Appointment Hematology and Oncology at [facility] [place] [address] 05/22/2024 11:30 AM EST Office Visit Dermatology at [facility] [address] [place] [phone] Inderjit Vilchis MD [facility] DR GIL[facility]ERTO [place] [address] documented as of this encounter Procedures Procedure Name Priority Date/Time Associated Diagnosis Comments CT CHEST ABDOMEN PELVIS W CONTRAST (GENERIC) Routine 02/06/2024 11:53 AM EDT Malignant melanoma of scalp CT NECK SOFT TISSUE W CONTRAST Routine 02/06/2024 11:53 AM EDT 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 Thank you for letting us participate in the care of this patient. ??If you are a health care provider and have any questions regarding this report, please contact the number below. ??For patients who have questions please contact the health acute care clinical nurse specialist that requested your imaging first. ? Narrative 02/07/2024 10:09 AM EDT EXAMINATION: CT [...] patients who have questions please contactthe health acute care clinical nurse specialist that requested your imaging first. Jean-Pierre Peña MD IMG CT ORDERABLES * CT Chest Abdomen Pelvis w Contrast (Generic) (02/06/2024 11:53 AM EDT) WORKSTATION ID [id number] RAD Anatomical Region Laterality Modality Abdomen, Pelvis [...] who have questions please contact the health acute care clinical nurse specialist that requested your imaging first. ? Electronically signed by: Ronel Driscoll MD, [facility] ([phone]), at 02/07/2024 7:46 PM Narrative 02/07/2024 7:46 [...] patients who have questions please contactthe health acute care clinical nurse specialist that requested your imaging first. 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 documented in this encounter Administered Medications Inactive Administered Medications - up to 3 most recent administrations Medication Order MAR Action Action Date Dose Rate Site iohexoL (Omnipaque) (350 mg/mL) solution 0-200 mL 0-200 mL, Intravenous, ONCE PRN, 1 dose, Starting on Tue02/06/24 at 1153, Until Tue02/06/24 at 1154, Per Protocol, Warning Vesicant/Irritant Medication , Radiology Contrast, Routine Given 02/06/2024 11:54 AM EDT 110 mLs iohexoL (Omnipaque) (350 mg/mL) solution 0-50 mL 0-50 mL, Oral, ONCE, 1 dose, On Tue02/06/24 at 1245, Warning Vesicant/Irritant Medication , Radiology Contrast, Routine Given 02/06/2024 12:45 PM EDT 50 mLs documented in this encounter Care Teams Automotive Engineering Technician Relationship Specialty Start Date End Date Taylor Bryant, ASSOCIATE DRAFTER [address] [place] [address] PCP - General 03/31/10 documented as of this encounter
--- OUTSIDE RECORDS SUMMARY | 2024-02-24 01:56 | XMS_ITS | Encounter Summary ---
Author Organization [facility] Address [facility] [place] [address] Care Team Providers Care Lease Out Man Name Role Phone Taylor Bryant APRN Primary Care Provider [phone] Encounter Details Date Type Department Care Team ([facility] st Contact Info) Description 01/25/2024 Orders Only [place] [address] Jean-Pierre Peña MD [facility] [place] [address] Social History Tobacco Use Types Packs/Day Years Used Date Smoking Tobacco: Former Smokeless Tobacco: Never Comments:quit at age 35 Alcohol Use Standard Drinks/Week Comments Yes 0 (1 standard drink = 0.6 oz pur e alcohol) social gatherings [facility] Utilities Answer Date Recorded In [...] TH Visit (TeleHealth) [place] [address] Jean-Pierre Peña MD [facility] [place] [address] Vicky Burnham APRN [facility] [place] [place] [address] 02/28/2024 11:30 AM EDT Infusion Hematology Oncology at [address] [address] 03/19/2024 12:45 PM EST Laboratory Appointment Lab at [facility] [place] [address] [place] [address] 03/19/2024 1:45 PM EST Office Visit Hematology and Oncology at [place] [phone] Jean-Pierre Peña MD [facility] DR [place] [address] Vicky Burnham APRN [facility] [place] [place] [address] 03/19/2024 3:30 PM EST Appointment Hematology and Oncology at [address] 04/30/2024 12:15 PM EST Laboratory Appointment Lab at [facility] [address] [address] 04/30/2024 1:15 PM EST Office Visit Hematology and Oncology at [place] [phone] Jean-Pierre Peña MD [facility] [place] [address] Vicky Burnham FASHION COORDINATOR [facility] [place] [address] 04/30/2024 2:30 PM EST Appointment [place]ematology [place] [address] 05/22/2024 11:30 AM EST Office Visit Dermatology at [address] [phone] Inderjit Vilchis MD [facility] DR [place] [address] documented as of this encounter Visit Diagnoses Not on filedocumented in this encounter Care Teams Lease Out Man Relationship Specialty Start Date End Date Taylor Bryant APRN [address] [place] [address] PCP - General 03/31/10 documented as of this encounter
--- OUTSIDE RECORDS SUMMARY | 2024-02-24 01:56 | XMS_ITS | Encounter Summary ---
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, unspecified lymph node region Discharge Disposition: Home Social History Tobacco Use Types Packs/Day Years Used Date Smoking Tobacco: Former Smokeless Tobacco: Never Comments:quit at age 35 Alcohol Use Standard Drinks/Week Comments Yes 0 (1 standard drink = 0.6 oz pur e alcohol) social gatherings [facility] Utilities Answer Date Recorded In the [...] TH Visit (TeleHealth) Hematology [place] [address] Jean-Pierre Peña MD [facility] [address] HEMATOLOGY [place] [address] Vicky Burnham APRN [facility] [place] [address] 02/28/2024 11:30 AM EDT Infusion Hematology Oncology at [address] [address] 03/19/2024 12:45 PM EST Laboratory Appointment Lab at [facility] [place]ematology Oncology [address] [place] [address] 03/19/2024 1:45 PM EST Office Visit Hematology [place] [phone] Jean-Pierre Peña MD [facility] [address] HEMATOLOGY [place] [address] Vicky Burnham APRN [facility] [place] [address] 03/19/2024 3:30 PM EST Appointment Hematology [place] [phone] 04/30/2024 12:15 PM EST Laboratory Appointment Lab at [facility] Hematology Oncology [address] [place] [address] 04/30/2024 1:15 PM EST Office Visit Hematology [place] [phone] Jean-Pierre Peña MD [facility] HEMATOLOGY [place] [address] Vicky Burnham APRN [facility] [place] [address] 04/30/2024 2:30 PM EST Appointment Hematology and Oncology at [facility] [place] [address] 05/22/2024 11:30 AM EST Office Visit Dermatology at [facility] [address] [place] [phone] Inderjit Vilchis MD [facility] DR GILBERTO [place] [address] documented as of this encounter Procedures Procedure Name Priority Date/Time Associated Diagnosis Comments CBC (WITH DIFF) STAT 02/06/2024 9:30 AM [...] to lymph nodes, unspecified lymph node region LACTATE DEHYDROGENASE STAT 02/06/2024 9:30 AM EDT Medication management 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, unspecified lymph node region CORTISOL STAT Add-On 02/06/2024 9:30 AM EDT Malignant melanoma of scalp Medication management COMPREHENSIVE METABOLIC PANEL STAT 02/06/2024 9:30 AM EDT Medication management 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, unspecified lymph node region documented in this encounter Results * (ABNORMAL) Cortisol (02/06/2024 9:30 AM EDT) Cortisol 4.5(L) 4.8 - 19.5 mcg/dL 02/06/2024 1:40 PM EDT [facility] Blood VENOUS BLOOD SPECIMEN / Unknown Venipuncture / Unknown 02/06/2024 9:30 AM EDT 02/06/2024 9:30 AM EDT Narrative [facility] - 02/06/2024 1:40 PM EDT The [...] Peña MD CHEMISTRY ORDERABLES Performing Organization Address City/[facility]/ZIP Co de Phone Number [facility] [place] [address] * Lactate Dehydrogenase (02/06/2024 9:30 AM EDT) Lactate Dehydrogenase 163 110 - 220 unit/L 02/06/2024 10:45 AM EDT [facility] Blood VENOUS BLOOD SPECIMEN / Unknown Venipuncture / Unknown 02/06/2024 9:30 AM EDT 02/06/2024 9:30 AM EDT Jean-Pierre Peña MD CHEMISTRY ORDERABLES Performing Organization Address City/[facility]/ZIP Co de Phone Number [facility] [place] [address] * T4, free (02/06/2024 9:30 AM EDT) Free T4 1.33 0.93 - 1.70 ng/dL 02/06/2024 10:45 AM EDT [facility] Comment: Reference Interval (ng/dL): ?? Females: ? First Trimester: 0.97-1.68 ? Second Trimester: 0.77-1.51 ? Third Trimester: 0.77-1.49 Blood VENOUS BLOOD SPECIMEN / Unknown Venipuncture / Unknown 02/06/2024 9:30 AM EDT 02/06/2024 9:30 AM EDT Jean-Pierre Peña MD CHEMISTRY ORDERABLES Performing Organization Address [facility] Co de Phone Number [facility] [place] [address] * TSH (02/06/2024 9:30 AM EDT) Thyroid Stimulating Hormone 0.67 0.27 - 4.20 mcIU/mL 02/06/2024 10:45 AM EDT [facility] Comment: Reference Interval (mcIU/mL): ?? Females: ? First Trimester: 0.23-3.88 ? Second Trimester: 0.22-3.90 ? Third Trimester: 0.44-4.66 Blood VENOUS BLOOD SPECIMEN / Unknown Venipuncture / Unknown 02/06/2024 9:30 AM EDT 02/06/2024 9:30 AM EDT Jean-Pierre Peña MD CHEMISTRY ORDERABLES Performing Organization Address City/[facility]/ZIP Co de Phone Number [facility] [place] [address] * (ABNORMAL) Comprehensive metabolic panel (02/06/2024 9:30 AM EDT) Glucose 89 65 - 199 mg/dL 02/06/2024 10:45 AM EDT [facility] Comment:Glucose Concentratio n >=200 mg/dL plus symptoms is consistent with Diabetes Mellitus. Blood Urea Nitrogen 18 8 - 18 mg/dL 02/06/2024 10:45 AM EDT [facility] Creatinine 0.95 0.70 - 1.20 mg/dL 02/06/2024 10:45 AM EDT [facility] Sodium 144 135 - 145 mMol/L 02/06/2024 10:45 AM EDT [facility] Potassium 3.7 3.5 - 5.0 mMol/L 02/06/2024 10:[address] [facility] Chloride 109(H) 98 - 107 mMol/L 02/06/2024 10:[address] [facility] Carbon Dioxide 24 22 - 31 mMol/L 02/06/2024 10:[address] [facility] Anion Gap 11 5 - 15 mMol/L 02/06/2024 10:[address] [facility] Calcium 9.2 8.5 - 10.5 mg/dL 02/06/2024 10:[address] [facility] Protein, Total 6.5 6.1 - 8.0 g/dL 02/06/2024 10:[address] [facility] Albumin 4.1 3.2 - 5.2 g/dL 02/06/2024 10:[address] [facility] Aspartate Aminotransferase 12 <=30 unit/L 02/06/2024 10:[address] [facility] Alanine Aminotransferase 11 0 - 30 unit/L 02/06/2024 10:[address] [facility] Alkaline Phosphatase 56 35 - 105 unit/L 02/06/2024 10:[address] [facility] Bilirubin, Total 0.6 <=1.3 mg/dL 02/06/2024 10:[address] [facility] Est Glomerular Filtration Rate - Female 70 mL/min/1. 73 m?? 02/06/2024 10:[address] [facility] Comment: This patient's estimated GFR [...] Fasting Status No 02/06/2024 10:45 AM EDT [facility] Blood VENOUS BLOOD SPECIMEN / Unknown Venipuncture / Unknown 02/06/2024 9:30 AM EDT 02/06/2024 9:30 AM EDT Jean-Pierre Peña MD CHEMISTRY ORDERABLES [facility] [place] [address] * (ABNORMAL) CBC (with Diff) (02/06/2024 9:30 AM EDT) White Blood Cell 6.78 4.00 - 9.50 x10(3)/mc L 02/06/2024 10:21 AM EDT [facility] Red Blood Cell 3.93(L) 4.00 - 5.21 x10(6)/mc L 02/06/2024 10:[address] [facility] Hemoglobin 12.1 11.7 - 15.5 g/dL 02/06/2024 10:[address] [facility] Hematocrit 36.2 35.7 - 45.8 % 02/06/2024 10:[address] [facility] Mean Cell Volume 92.1 82.6 - 94.4 fL 02/06/2024 10:[address] [facility] Mean Cell Hemoglobin 30.8 27.1 - 32.0 pg 02/06/2024 10:[address] [facility] Mean Cell Hemoglobin Concentration 33.4 31.7 - 35.0 g/dL 02/06/2024 10:[address] [facility] Platelet 321 145 - 357 x10(3)/mc L 02/06/2024 10:[address] [facility] Mean Platelet Volume 11.1 7.6 - 12.9 fL 02/06/2024 10:[address] [facility] RDW Standard Deviation 48.3(H) 37.0 - 46.0 fL 02/06/2024 10:[address] [facility] RDW coefficient of variation 14.3(H) 11.5 - 14.1 % 02/06/2024 10:[address] [facility] NRBC% auto 0.0 % 02/06/2024 10:[address] [facility] NRBC Absolute <0.01 <0.01 x10(3)/mc L 02/06/2024 10:[address] [facility] Neutrophil % 59.4 % 02/06/2024 10:[address] [facility] Neutrophil Absolute (ANC) - Automated 4.03 1.70 - 6.10 x10(3)/mc L 02/06/2024 10:[address] [facility] Lymph % 24.5 % 02/06/2024 10:[address] [facility] Lymph Absolute 1.66 0.90 - 3.20 x10(3)/mc L 02/06/2024 10:[address] [facility] Monocyte % 10.8 % 02/06/2024 10:[address] [facility] Monocyte Absolute 0.73 0.30 - 0.90 x10(3)/mc L 02/06/2024 10:[address] [facility] Eos % 4.3 % 02/06/2024 10:[address] [facility] Eos Absolute 0.29 0.00 - 0.40 x10(3)/mc L 02/06/2024 10:[address] [facility] Basophil % 0.9 % 02/06/2024 10:[address] [facility] Baso Absolute 0.06 0.00 - 0.10 x10(3)/mc L 02/06/2024 10:[address] [facility] Immature Gran % 0.1 % 10:[address] [facility] Immature Gran Absolute <0.04 0.00 - 0.04 x10(3)/mc L 02/06/2024 10:21 AM EDT [facility] Blood VENOUS BLOOD SPECIMEN / Unknown Venipuncture / Unknown 02/06/2024 9:30 AM EDT 02/06/2024 9:30 AM EDT Jean-Pierre Peña MD HEMATOLOGY ORDERABLE S [facility] [place] [address] documented in this encounter Visit Diagnoses Diagnosis Medication management Encounter for long-term (current) use of other medications Malignant melanoma of scalp Malignant melanoma of skin of scalp and neck 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
--- OUTSIDE RECORDS SUMMARY | 2024-02-24 01:56 | XMS_ITS | Encounter Summary ---
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, unspecified lymph node region Procedures [id number] pembrolizumab (Keytruda) Jean-Pierre Peña MD [facility] [address] HEMAT[place]Y [place] [address] Jean-Pierre Peña MD [facility] [address] HEMATOLOG[place] [address] Referral ID Status Reason Start Date Expiration Date V isits Requested Visits Authorized [id number] Authorized 07/25/2023 07/24/2024 99 99 Encounter Details Date Type Department Care Team (Latest Contact Info) Description 02/06/2024 9:23 AM EDT Hospital Encounter Hematology [place] [address] Medication management; Malignant melanoma of scalp; Malignant [...] in a ch[facility] (including now)? No 07/24/2023 DH IPV Inpatient [...] mouth. 02/11/2024 documented as of this encounter Progress Notes * Sandra Asencio RN - 02/06/2024 2:05 PM EDT Patient Name: Keeley Gutierrez Patient Age: 58 y.o. Birthdate: 1965 Admit date: 02/06/2024 Attending Physician: No att. providers found TIME TREATMENT STARTED: 1356 TIME TREATMENT ENDED: 1430 Keeley Gutierrez, 58 y.o. female with diagnosis of melanoma is here for chemotherapy infusion of keytruda. CYCLE: 7 DAY: 1 S: Pt. offers no complaints at this time. O: Chemotherapy orders independently verified for correct drug name, route and dosage per patient'sheight, weight and BSA by Sandra Asencio RN and onsite pharmacist REACTIONS (DESCRIPTION, TIME, INTERVENTION AND EFFECTIVENESS) none A: Pt. Tolerated treatment well. Keeley Gutierrez confirms that all questions and issues have beenaddressed. P: Return to clinic as directed documented in this encounter Plan of Treatment Upcoming Encounters Date Type Department Care Team (Late st Contact Info) Description 02/27/2024 8:15 AM EDT TH Visit (TeleHealth) [place]ology [place] [address] Jean-Pierre Peña MD [facility] [address] [place]ATOLOG[place] [address] Vicky Burnham APRN [facility] [place] [address] 02/28/2024 11:30 AM EDT Infusion Hematology Oncology at [address] [address] 03/19/2024 12:45 PM EST Laboratory Appointment Lab at [facility] H[place]ology Oncology [address] [place] [address] 03/19/2024 1:45 PM EST Office Visit Hematology [place] [address] Jean-Pierre Peña MD [facility] [address] [place]EMATOLOG[place] [address] Vicky Burnham APRN [facility] [place] [address] 03/19/2024 3:30 PM EST Appointment Hematology [place] [address] 04/30/2024 12:15 PM EST Laboratory Appointment Lab at [facility] Hematology Oncology [address] [place] [address] 04/30/2024 1:15 PM EST Office Visit Hematology [place] [address] Jean-Pierre Peña MD [facility] [address] HEMATOLOG[place] [address] Vicky Burnham APRN [facility] [place] [address] 04/30/2024 2:30 PM EST Appointment Hematology [place] [address] 05/22/2024 11:30 AM EST Office Visit Dermatology at [place] [address] [place] [address] Inderjit Vilchis MD [facility] [address] [facility] [place] [address] documented as of this encounter Results * Lactate Dehydrogenase (02/06/2024 9:30 AM EDT) Lactate Dehydrogenase 163 110 - 220 unit/L 02/06/2024 10:45 AM EDT [facility] Blood VENOUS BLOOD SPECIMEN / Unknown Venipuncture / Unknown 02/06/2024 9:30 AM EDT 02/06/2024 9:30 AM EDT Jean-Pierre Peña MD CHEMISTRY ORDERABLES Performing Organization Address City/[facility]/ZIP Co de Phone Number [facility] [place] [address] * T4, free (02/06/2024 9:30 AM EDT) Free T4 1.33 0.93 - 1.70 ng/dL 02/06/2024 10:45 AM EDT [facility] Comment: Reference Interval (ng/dL): ?? Females: ? First Trimester: 0.97-1.68 ? Second Trimester: 0.77-1.51 ? Third Trimester: 0.77-1.49 Blood VENOUS BLOOD SPECIMEN / Unknown Venipuncture / Unknown 02/06/2024 9:30 AM EDT 02/06/2024 9:30 AM EDT Jean-Pierre Peña MD CHEMISTRY ORDERABLES [facility] [place] [address] * TSH (02/06/2024 9:30 AM EDT) Thyroid Stimulating Hormone 0.67 0.27 - 4.20 mcIU/mL 02/06/2024 10:45 AM [facility] Comment: Reference Interval (mcIU/mL): ?? Females: ? First Trimester: 0.23-3.88 ? Second Trimester: 0.22-3.90 ? Third Trimester: 0.44-4.66 Blood VENOUS BLOOD SPECIMEN / Unknown Venipuncture / Unknown 02/06/2024 9:30 AM EDT 02/06/2024 9:30 AM EDT Jean-Pierre Peña MD CHEMISTRY ORDERABLES [facility] [place] [address] * (ABNORMAL) Comprehensive metabolic panel (02/06/2024 9:30 AM EDT) Glucose 89 65 - 199 mg/dL 02/06/2024 10:45 AM [facility] Comment:Glucose Concentratio n >=200 mg/dL plus symptoms is consistent with Diabetes Mellitus. Blood Urea Nitrogen 18 8 - 18 mg/dL 02/06/2024 10:45 AM [facility] Creatinine 0.95 0.70 - 1.20 mg/dL 02/06/2024 10:45 AM [facility] Sodium 144 135 - 145 mMol/L 02/06/2024 10:45 AM [facility] Potassium 3.7 3.5 - 5.0 mMol/L 02/06/2024 10:45 AM [facility] Chloride 109(H) 98 - 107 mMol/L 02/06/2024 10:45 AM [facility] Carbon Dioxide 24 22 - 31 mMol/L 02/06/2024 10:45 AM [facility] Anion Gap 11 5 - 15 mMol/L 02/06/2024 10:45 AM [facility] Calcium 9.2 8.5 - 10.5 mg/dL 02/06/2024 10:45 AM [facility] Protein, Total 6.5 6.1 - 8.0 g/dL 02/06/2024 10:45 AM [facility] Albumin 4.1 3.2 - 5.2 g/dL 02/06/2024 10:45 AM [facility] Aspartate Aminotransferase 12 <=30 unit/L 02/06/2024 10:45 AM [facility] Alanine Aminotransferase 11 0 - 30 unit/L 02/06/2024 10:45 AM [facility] Alkaline Phosphatase 56 35 - 105 unit/L 02/06/2024 10:45 AM [facility] Bilirubin, Total 0.6 <=1.3 mg/dL 02/06/2024 10:45 AM [facility] Est Glomerular Filtration Rate - Female 70 mL/min/1. 73 m?? 02/06/2024 10:45 AM [facility] Comment: This patient's estimated GFR was [...] Foundation Fasting Status No 02/06/2024 10:45 AM T [facility] Blood VENOUS BLOOD SPECIMEN / Unknown Venipuncture / Unknown 02/06/2024 9:30 AM EDT 02/06/2024 9:30 AM EDT Jean-Pierre Peña MD CHEMISTRY ORDERABLES [facility] [place] [address] * (ABNORMAL) CBC (with Diff) (02/06/2024 9:30 AM EDT) White Blood Cell 6.78 4.00 - 9.50 x10(3)/mc L 02/06/2024 10:21 AM [facility] Red Blood Cell 3.93(L) 4.00 - 5.21 x10(6)/mc L 02/06/2024 10:21 AM [facility] Hemoglobin 12.1 11.7 - 15.5 g/dL 02/06/2024 10:21 AM [facility] Hematocrit 36.2 35.7 - 45.8 % 02/06/2024 10:21 AM [facility] Mean Cell Volume 92.1 82.6 - 94.4 fL 02/06/2024 10:21 AM [facility] Mean Cell Hemoglobin 30.8 27.1 - 32.0 pg 02/06/2024 10:21 AM [facility] Mean Cell Hemoglobin Concentration 33.4 31.7 - 35.0 g/dL 02/06/2024 10:21 AM [facility] Platelet 321 145 - 357 x10(3)/mc L 02/06/2024 10:21 AM [facility] Mean Platelet Volume 11.1 7.6 - 12.9 fL 02/06/2024 10:21 AM [facility] RDW Standard Deviation 48.3(H) 37.0 - 46.0 fL 02/06/2024 10:21 AM [facility] RDW coefficient of variation 14.3(H) 11.5 - 14.1 % 02/06/2024 10:21 AM [facility] NRBC% auto 0.0 % 02/06/2024 10:21 AM [facility] NRBC Absolute <0.01 <0.01 x10(3)/mc L 02/06/2024 10:21 AM [facility] Neutrophil % 59.4 % 02/06/2024 10:21 AM EDT [facility] Neutrophil Absolute (ANC) - Automated 4.03 1.70 - 6.10 x10(3)/mc L 02/06/2024 10:21 AM EDT [facility] Lymph % 24.5 % 02/06/2024 10:21 AM EDT [facility] Lymph Absolute 1.66 0.90 - 3.20 x10(3)/mc L 02/06/2024 10:21 AM EDT [facility] Monocyte % 10.8 % 02/06/2024 10:21 AM EDT [facility] Monocyte Absolute 0.73 0.30 - 0.90 x10(3)/mc L 02/06/2024 10:21 AM EDT [facility] Eos % 4.3 % 02/06/2024 10:21 AM EDT [facility] Eos Absolute 0.29 0.00 - 0.40 x10(3)/mc L 02/06/2024 10:21 AM EDT [facility] Basophil % 0.9 % 02/06/2024 10:21 AM EDT [facility] Baso Absolute 0.06 0.00 - 0.10 x10(3)/mc L 02/06/2024 10:21 AM EDT [facility] Immature Gran % 0.1 % 10:21 AM EDT [facility] Immature Gran Absolute <0.04 0.00 - 0.04 x10(3)/mc L 02/06/2024 10:21 AM EDT [facility] Blood VENOUS BLOOD SPECIMEN / Unknown Venipuncture / Unknown 02/06/2024 9:30 AM EDT 02/06/2024 9:30 AM EDT Jean-Pierre Peña MD HEMATOLOGY ORDERABLE S [facility] [place] [address] documented in this encounter Visit Diagnoses Diagnosis [...] 200 mg, Intravenous, ONCE, 1 dose, On Tue02/06/24 at 1330, Administer over 30 Minutes, Flush Line with NS after each dose, This agent is restricted to outpatient use. Is this drug being given as an outpatient? Yes New Bag 02/06/2024 1:59 PM EDT 200 mg 216 mL/hr documented in this encounter Care Teams Underground Mine Superintendent Relationship Specialty Start Date End Date Taylor Bryant APRN [address] [place] [address] PCP - General 03/31/10 documented as of this encounter
--- OUTSIDE RECORDS SUMMARY | 2024-02-24 01:56 | XMS_ITS | Encounter Summary ---
Author Organization [facility] Address [facility] [place] [address] Care Team Providers Care Hotel Assistant Manager Name Role Phone Taylor Bryant ZARA Primary Care Provider [phone] [phone] Reason for Visit * Reason Comments Follow-up Encounter Details Date Type Department Care Team ([facility] st Contact Info) Description 02/06/2024 12:45 PM EDT Office Visit Hematology [place] [address] Jean-Pierre Peña MD [facility] [address] [place] [address] Vicky Burnham APRN [facility] [place] [address] Malignant melanoma of scalp (Primary Dx); 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, unspecified lymph node region; Medication management; Secondary malignancy of soft tissue; Immunotherapy Social History Tobacco Use Types Packs/Day Years Used Date Smoking Tobacco: Former Smokeless Tobacco: Never Comments:quit at age 35 Alcohol Use Standard Drinks/Week Comments Yes 0 (1 standard drink = 0.6 oz pur e alcohol) social gatherings [facility] Utilities Answer Date Recorded In the past 12 months has [employer], gas, oil, or water company threatened to [...] Mass Index 26.7 02/06/2024 12:53 PM EDT documented in this encounter Progress Notes * Jean-Pierre Peña MD - 02/06/2024 12:45 PM EDT Images from the original note were not included. [facility] NOTE REFERING PHYSICIAN: DIAGNOSIS: Right occipital scalp melanoma PATH: Malignant melanoma At least T2a 1.5 mm depth with positive margin 6 mitosis BRAF V600K/R variant. CURRENT TX: Cycle #5 adjuvant,(total cycle #6) pembrolizumab on 02/06/2024 Cycle #1, adjuvant pembrolizumab on 10/04/2023 Wide [...] day dosing due to joint pain andfatigue Skipped cycle#5 due to COVID19 Cycle #5 adjuvant pembrolizumab on 02/06/2024 History of psoriatic arthritis over 20 years [...] 07/25/2023 to discuss treatment options. INTERVAL HISTORY: She is here for restaging CT scan including neck prior to cycle #5 pembrolizumab Clinically she continues to do well. She is recuperating well from recent COVID19. Now she is back to her baseline. Stable joint pain. No obvious pembrolizumab related toxicity. REVIEW OF SYSTEMS: Constitutional: No recent weight [...] 9.72) performed by Castro Preciado MD at [facility] MAIN OR PRO BX/REMV, LYMPH NODE, DEEP CERV Right 09/16/2023 BIOPSY OR EXCISION OF LYMPH NODE(S), OPEN, DEEP CERVICAL NODES (WRVU 6.74) performed by Castro Preciado MD at [facility] MAIN OR PRO RADICAL RESECT OF TUMOR, SOFT TISSUE FACE OR SCALP, 2CM OR GREATER Right 09/16/2023 RADICAL RESECTION TUMOR SCALP; >2 CM (WRVU 15.26) performed by Castro Preciado MD at [facility] MAIN OR PRO SPLIT GRFT, HEAD, FAC, HAND, FEET <100SQCM Right 09/28/2023 SPLIT THICKNESS SKIN SPLIT GRAFT,100SQ CM OR LESS, NECK (WRVU 10.15) performed by Castro Preciado MD at [facility] MAIN OR TUBAL LIGATION MEDS: FLUoxetine, ascorbic [...] in the Last Year: No PHYSICAL EXAM: PS=0 General: not in acute distress. in good mood and spirits BP 153/85 (Patient Position: Sitting) Pulse 74 Temp 36.7 ??C (98.1 ??F) (Temporal) Resp 17 Ht 161 cm (5' 3.39) Wt 69.2 kg (152 lb 9.6 oz) SpO2 99% BMI 26.70 kg/m?? Eyes: Not icteric, not injected Oral: not examined Neck: Supple. No lymphadenopathy. Lungs: Bilaterally clear to auscultation, No wheezing, No crackles Heart: Regular rate and rhythm. Abdomen: Soft, no tenderness, no mass, normal active bowel sounds. Extremities: No edema. Skin: No rash Neuro: No focal weakness LABS: Unremarkable CBC with differential Unremarkable CMP LDH 163 Unremarkable thyroid function test Random cortisol 4.5 IMAGING STUDIES: CT of the neck on 02/06/2024 No soft tissue mass or pathologic adenopathy. Chest abdomen pelvic CT scan on 02/06/2024 No metastatic disease in the chest, abdomen or pelvis. While Brain MRI on 08/01/2023 Negative for brain [...] N1c Cycle #1 adjuvant pembrolizumab on 10/04/2023 Clinically she is doing fairly well after recent COVID-19 infection. Today's restaging CT scan including neck showed no evidence of disease recurrence or suspicious lymph node. I reviewed images by myself. Will proceed to cycle#5 pembrolizumab today. She will receive pembrolizumab infusion every other cycle at [place] from logistical reason. I will have her come back in 3 weeks with labs and next the pembrolizumab infusion in [place]. We will continue this until June 2024 to complete 1 year of adjuvant treatment. The patient was instructed to call us with any new symptoms or concerns. Jean-Pierre Peña MD RTC in 3 6 9 12 weeks with labs and pembrolizumab Telehealth in 3 and 9 weeks Pembrolizumab will be given at [facility] in 3 and 9 weeks, [place] in 6 and 12 weeks documented in this encounter Plan of Treatment Upcoming Encounters Date Type Department Care Team (Late st Contact Info) Description 02/27/2024 8:15 AM EDT TH Visit (TeleHealth) Hematology [place] [address] Jean-Pierre Peña MD [facility] [address] [place] [address] Vicky Burnham APRN [facility] [place] [address] 02/28/2024 11:30 AM EDT Infusion Hematology Oncology at [address] [address] 03/19/2024 12:45 PM EST Laboratory Appointment Lab at [facility] Hematology Oncology [address] [place] [address] 03/19/2024 1:45 PM EST Office Visit Hematology [place] [phone] Jean-Pierre Peña MD [facility] [address] [place] [address] Vicky Burnham APRN [facility] [place] [address] 03/19/2024 3:30 PM EST Appointment Hematology [place] [phone] 04/30/2024 12:15 PM EST Laboratory Appointment Lab at [facility] Hematology Oncology [address] [place] [address] [phone] 04/30/2024 1:15 PM EST Office Visit Hematology [place] [address] Jean-Pierre Peña MD [facility] DR HEMATOLOGY AND ONCOLOGY [place], [place] [phone] Vicky Burnham APRN [facility] [place] [address] 04/30/2024 2:30 PM EST Appointment Hematology [place] [address] 05/22/2024 11:30 AM EST Office Visit Dermatology at [address] [phone] Inderjit Vilchis MD [facility] DR [facility] [address] documented as of this encounter Results * (ABNORMAL) Cortisol (02/06/2024 9:30 AM EDT) [facility] Signature Cortisol 4.5(L) 4.8 - 19.5 mcg/dL 02/06/2024 1:40 PM EDT [facility] Blood VENOUS BLOOD SPECIMEN / Unknown Venipuncture / Unknown 02/06/2024 9:30 AM EDT 02/06/2024 9:30 AM EDT [facility] - 02/06/2024 1:40 PM EDT The [...] clinical context. 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
--- OUTSIDE RECORDS SUMMARY | 2024-02-24 01:56 | XMS_ITS | Encounter Summary ---
Author Organization [facility] Address [facility] [place] [address] Care Team Providers Care Dress Fitter Name Role Phone Taylor Bryant ZARA Primary Care Provider [phone] Encounter Details Date Type Department Care Team (Latest Contact Info) Description 01/18/2024 11:00 AM EDT TH Visit (TeleHealth) [place] [phone] Jean-Pierre Peña MD [facility] [place] [address] Malignant melanoma of scalp (Primary Dx); Medication management; Secondary malignancy of soft tissue; Immunotherapy Social History Tobacco Use Types Packs/Day Years Used Date Smoking Tobacco: Former Smokeless Tobacco: Never Comments:quit at age 35 Alcohol Use Standard Drinks/Week Comments Yes 0 (1 standard drink = 0.6 oz pur e alcohol) social gatherings [facility] Utilities Answer Date Recorded In the past 12 months has e [employer], gas, oil, or water [employer] threatened to shut off services in your [...] Progress Notes * Jean-Pierre Peña MD - 01/18/2024 11:00 AM EDT Images from the original note [...] 07/25/2023 to discuss treatment options. INTERVAL HISTORY: This is a video visit prior to next dose of pembrolizumab given in [place]. Clinically she continues to do well. No obvious side effect from pembrolizumab 200 mg. Stable joint pain. No other obvious pembrolizumab related toxicity. REVIEW OF SYSTEMS: [...] D3), elderberry fruit, minoxidiL, multivit-min/vit C/herb no.124, and turmeric ALLERGY: Codeine [...] in the Last Year: No PHYSICAL EXAM: General: not in acute distress. in good mood and spirits This is a televideo visit. At least her scalp scar appears to be well-healed through video. LABS: No labs available during this visit IMAGING STUDIES: Brain MRI on 08/01/2023 Negative [...] on 10/04/2023 Clinically she is doing fairly well. She will have labs prior to the next dose of pembrolizumab. We will continue this until June 2024 to complete 1 year of adjuvant treatment. I will have her come back in 3 weeks with labs and next the pembrolizumab infusion in [place]. She will receive pembrolizumab infusion every other cycle at [place] from logistical reason. The patient was instructed to call us with any new symptoms or concerns. Jean-Pierre Peña MD RTC on 02/06/2024 as scheduled with labs, CT scan and pembrolizumab documented in this encounter Plan of Treatment Upcoming Encounters Date Type Department Care Team (Late st Contact Info) Description 02/27/2024 8:15 AM EDT TH Visit (TeleHealth) [place]ology [place] [address] Jean-Pierre Peña MD [facility] [place] [address] Vicky Burnham APRN [facility] [place] [address] 02/28/2024 11:30 AM EDT Infusion Hematology Oncology at [address] [address] 03/19/2024 12:45 PM EST Laboratory Appointment Lab at [facility] Hematology Oncology [address] [place] [address] 03/19/2024 1:45 PM EST Office Visit Hematology [place] [address] Jean-Pierre Peña MD [facility] [place] [address] Vicky Burnham APRN [facility] [place] [address] 03/19/2024 3:30 PM EST Appointment Hematology [place] [address] 04/30/2024 12:15 PM EST Laboratory Appointment Lab at [facility] Hematology Oncology [address] [place] [address] 04/30/2024 1:15 PM EST Office Visit Hematology [place] [phone] Jean-Pierre Peña MD [facility] [place] [address] Vicky Burnham APRN [facility] [place] [place] [address] 04/30/2024 2:30 PM EST Appointment Hematology [place] [address] 05/22/2024 11:30 AM EST Office Visit Dermatology at [address] [phone] Inderjit Vilchis MD [facility] DR [place] [address] documented as of this encounter Visit Diagnoses Diagnosis Malignant melanoma of scalp- Primary Malignant melanoma of skin of scalp and neck Medication management Encounter for long-term (current) use of other medications Secondary malignancy of soft tissue Immunotherapy Reserved for inherently not codable concepts WITHOUT codable children documented in this encounter Care Teams Dress Fitter Relationship Specialty Start Date End Date Taylor Bryant APRN [address] [place] [address] PCP - General 03/31/10 documented as of this encounter
--- OUTSIDE RECORDS SUMMARY | 2024-02-24 01:56 | XMS_ITS | Encounter Summary ---
Author Organization [facility] Address [facility] [place] [address] Care Team Providers Care Lead Nurse Name Role Phone Taylor Bryant APRN Primary Care Provider [phone] Encounter Details Date Type Department Care Team (Latest Contact Info) Description 01/17/2024 Travel Social History Tobacco Use Types Packs/Day [...] TH Visit (TeleHealth) Hematology [place] [address] Jean-Pierre Peña MD [facility] DR [place] [address] Vicky Burnham APRN [facility] [place] [address] 02/28/2024 11:30 AM EDT Infusion Hematology Oncology at [address] [address] 03/19/2024 12:45 PM EST Laboratory Appointment Lab at [facility] Hematology Oncology [address] [place] [address] 03/19/2024 1:45 PM EST Office Visit Hematology [place] [phone] Jean-Pierre Peña MD [facility] DR [place] [address] Vicky Burnham APRN [facility] [place] [address] 03/19/2024 3:30 PM EST Appointment Hematology [place] [phone] 04/30/2024 12:15 PM EST Laboratory Appointment Lab at [facility] Hematology Oncology [address] [place] [address] 04/30/2024 1:15 PM EST Office Visit Hematology [place] [phone] Jean-Pierre Peña MD [facility] DR [place] [address] Vicky Burnham SALES PROMOTION REPRESENTATIVE [facility] [place] [address] 04/30/2024 2:30 PM EST Appointment Hematology [place] [address] 05/22/2024 11:30 AM EST Office Visit Dermatology at [address] [phone] Inderjit Vilchis MD [facility] DR [facility]ERT[facility] [place] [address] documented as of this encounter Visit Diagnoses Not on filedocumented in this encounter Care Teams Lead Nurse Relationship Specialty Start Date End Date Taylor Bryant APRN [address] [place] [address] PCP - General 03/31/10 documented as of this encounter
--- OUTSIDE RECORDS SUMMARY | 2024-02-24 01:57 | XMS_ITS | Encounter Summary ---
Author Organization [facility] Address [facility] [place] [address] Care Team Providers Care Child And Adolescent Psychologist Name Role Phone Taylor Bryant APRN Primary Care Provider [phone] Encounter Details Date Type Department Care Team ([facility] st Contact Info) Description 10/25/2023 Telephone Hematology [place] [phone] Roselyn Sánchez Social History Tobacco Use Types Packs/Day Years Used Date Smoking Tobacco: Former Smokeless Tobacco: Never Comments:quit at age 35 Alcohol Use Standard Drinks/Week Comments Yes 0 (1 standard drink = 0.6 oz pur e alcohol) social gatherings [facility] Utilities Answer Date Recorded In the past [...] - 10/25/2023 2:52 PM EDT [facility] Cl[facility] Reeler spoke to Keeley to notify her that MARY awarded a $150 [employer] gift card. Roselyn Sánchez documented in this encounter Plan of Treatment Upcoming Encounters Date Type Department Care Team (Late st Contact Info) Description 02/27/2024 8:15 AM EDT TH Visit (TeleHealth) [place] [address] Jean-Pierre Peña MD [facility] DR HEMATOLOGY [place] [address] Vicky Burnham APRN [facility] [place] [address] 02/28/2024 11:30 AM EDT Infusion Hematology Oncology at [address] [address] 03/19/2024 12:45 PM EST Laboratory Appointment Lab at [facility] Hematology Oncology [address] [place] [address] 03/19/2024 1:45 PM EST Office Visit [place]ematology [place] [address] Jean-Pierre Peña MD [facility] DR HEMATOLOGY [place] [address] Vicky Burnham APRN [facility] [place] [address] 03/19/2024 3:30 PM EST Appointment Hematology [place] [address] 04/30/2024 12:15 PM EST Laboratory Appointment Lab at [facility] Hematology Oncology [address] [place] [address] 04/30/2024 1:15 PM EST Office Visit [place]ematology [place] [address] Jean-Pierre Peña MD [facility] DR HEMATOLOGY [place] [address] Vicky Burnham APRN [facility] [place] [address] 04/30/2024 2:30 PM EST Appointment Hematology [place] [address] 05/22/2024 11:30 AM EST Office Visit Dermatology at [place] [address] [place] [address] Inderjit Vilchis MD [facility] [address] documented as of this encounter Visit Diagnoses Not on filedocumented in this encounter Care Teams Child And Adolescent Psychologist Relationship Specialty Start Date End Date Taylor Bryant APRN [address] [place] [address] PCP - General 03/31/10 documented as of this encounter
--- OUTSIDE RECORDS SUMMARY | 2024-02-24 01:57 | XMS_ITS | Encounter Summary ---
Author Organization [facility] Address [facility] [place] [address] Care Team Providers Care Library Monitor Name Role Phone AnnetteTaylor ZARA Primary Care Provider [phone] Encounter Details Date Type Department Care Team ([facility] st Contact Info) Description 11/29/2023 Orders Only [place]ematology [place] [address] Vicky Burnham CANINE SERVICE INSTRUCTOR TRAINER [facility] [place] [place] [address] Social History Tobacco Use Types Packs/Day Years Used Date Smoking Tobacco: Former Smokeless Tobacco: Never Comments:quit at age 35 Alcohol Use Standard Drinks/Week Comments Yes 0 (1 standard drink = 0.6 oz pur e alcohol) social gatherings [facility] Utilities Answer Date Recorded In the [...] in a intermediate (including now)? No 07/24/2023 IPV Inpatient Questions [...] TH Visit (TeleHealth) [place] [address] Jean-Pierre Peña MD [facility] [address] [place] [address] Vicky Burnham APRN [facility] [place] [place] [address] 02/28/2024 11:30 AM EDT Infusion Hematology Oncology at [address] [address] 03/19/2024 12:45 PM EST Laboratory Appointment Lab at [facility] Hematology Oncology [address] [place] [address] 03/19/2024 1:45 PM EST Office Visit Hematology and Oncology at [place] [phone] Jean-Pierre Peña MD [facility] [place] [address] Vicky Burnham APRN [facility] [place] [place] [address] 03/19/2024 3:30 PM EST Appointment Hematology and Oncology at [address] 04/30/2024 12:15 PM EST Laboratory Appointment Lab at [facility] Hematology [address] [address] 04/30/2024 1:15 PM EST Office Visit Hematology and Oncology at [place] [phone] Jean-Pierre Peña MD [facility] [place] [address] Vicky Burnham CANINE SERVICE INSTRUCTOR TRAINER [facility] [place] [address] 04/30/2024 2:30 PM EST Appointment Hematology [place] [address] 05/22/2024 11:30 AM EST Office Visit Dermatology at [address] [phone] Inderjit Vilchis MD [facility] [address] [facility] [address] documented as of this encounter Visit Diagnoses Not on filedocumented in this encounter Care Teams Library Monitor Relationship Specialty Start Date End Date Taylor Bryant APRN [address] [place] [address] PCP - General 03/31/10 documented as of this encounter
--- OUTSIDE RECORDS SUMMARY | 2024-02-24 01:57 | XMS_ITS | Encounter Summary ---
Author Organization [facility] [place] [address] Care Team Providers Care Kitchen Work Supervisor Name Role Phone Taylor Bryant APRN Primary Care Provider [phone] [phone] Encounter Details Date Type Department Care Team ([facility] st Contact Info) Description 12/05/2023 Telephone Hematology [place] [phone] Gianna Sanabria RN Social History Tobacco Use [...] Telephone Encounter - Gianna Sanabria RN - 12/05/2023 7:47 AM EDT Message received from Nursing :Patient is on Prednisone 20 mg daily x 7days 11/28- and then 10 mg x 7days depending on symptoms/Joints pain. T/C to patient: Call placed to pt to discuss Prednisone taper. Patient reported feeling well and noticed improvement on her joint pain after being on Prednisone. The only concern is she is not able to sleep at night even though she is taking Prednisone in the morning. Patient instructed to take prednisone 10 mg per mouth daily x 7 day from 12/05- 12/11 and to take it in morning to avoid sleep disturbance and with food to avoid stomach irritation. Patient advised to report any fever >100.4, nausea, vomiting, diarrhea, abdominal pain, bdy stool and any new symptoms. Patient verbalizes agreement and understanding of plan of care and to call office for any new or worsening symptoms. Per Dr Peña:Lets cut down to 5 mg Patient notified and message send to Nursing to call patient on 12/11 to discuss prednisone taper. documented in this encounter Plan of Treatment Upcoming Encounters Date Type Department Care Team (Late st Contact Info) Description 02/27/2024 8:15 AM EDT TH Visit (TeleHealth) [place]ematology [place] [address] Jean-Pierre Peña MD [facility] DR HEMATOLOGY [place] [address] Vicky Burnham APRN [facility] [place] [address] 02/28/2024 11:30 AM EDT Infusion Hematology Oncology at [address] [address] 03/19/2024 12:45 PM EST Laboratory Appointment Lab at [facility] Hematology Oncology [address] [place] [address] 03/19/2024 1:45 PM EST Office Visit Hematology [place] [phone] Jean-Pierre Peña MD [facility] DR HEMATOLOGY [place] [address] Vicky Burnham APRN [facility] DR [place] [address] 03/19/2024 3:30 PM EST Appointment Hematology [place] [address] 04/30/2024 12:15 PM EST Laboratory Appointment Lab at [facility] Hematology Oncology [address] [place] [address] 04/30/2024 1:15 PM EST Office Visit Hematology [place] [phone] Jean-Pierre Peña MD [facility] DR HEMATOLOGY [place] [address] Vicky Burnham APRN [facility] [place] [address] 04/30/2024 2:30 PM EST Appointment Hematology [place] [address] 05/22/2024 11:30 AM EST Office Visit Dermatology at [place] [address] [place] [address] Inderjit Vilchis MD [facility] DR GILBERTO STERLING[place] [address] documented as of this encounter Visit Diagnoses Not on filedocumented in this encounter Care Teams Kitchen Work Supervisor Relationship Specialty Start Date End Date Taylor Bryant APRN [address] [place] [address] PCP - General 03/31/10 documented as of this encounter
--- OUTSIDE RECORDS SUMMARY | 2024-02-24 01:57 | XMS_ITS | Encounter Summary ---
Author Organization [facility] Address [facility] [place] [address] Care Team Providers Care Php Website Developer Name Role Phone Taylor Bryant APRN Primary Care Provider [phone] [phone] Encounter Details Date Type Department Care Team (Latest Contact Info) Description 11/13/2023 Travel Social History Tobacco Use Types Packs/Day Years Used Date Smoking Tobacco: Former Smokeless Tobacco: Never Comments:quit at age 35 Alcohol Use Standard Drinks/Week Comments Yes 0 (1 standard drink = 0.6 oz pur e alcohol) social gatherings [facility] Utilities Answer Date Recorded In the [...] TH Visit (TeleHealth) Hematology [place] [address] Jean-Pierre Peña MD [facility] DR HEMATOLOGY [place] [address] Vicky Burnham APRN [facility] [place] [address] 02/28/2024 11:30 AM EDT Infusion Hematology Oncology at [address] [address] 03/19/2024 12:45 PM EST Laboratory Appointment Lab [place] [facility] [place]ology Oncology [address] [place] [address] 03/19/2024 1:45 PM EST Office Visit Hematology [place] [phone] Jean-Pierre Peña MD [facility] DR HEMATOLOGY [place] [address] Vicky Burnham APRN [facility] [place] [address] 03/19/2024 3:30 PM EST Appointment Hematology [place] [phone] 04/30/2024 12:15 PM EST Laboratory Appointment Lab at [facility] [place]ology On[place] [address] [place] [address] 04/30/2024 1:15 PM EST Office Visit Hematology [place] [phone] Jean-Pierre Peña MD [facility] DR HEMATOLOGY [place] [address] Vicky Burnham AIRWORTHINESS INSPECTOR [facility] [place] [address] 04/30/2024 2:30 PM EST Appointment Hematology [place] [address] 05/22/2024 11:30 AM EST Office Visit Dermatology at [address] [phone] Inderjit Vilchis MD [facility] DR GILBETRO [place] [address] documented as of this encounter Visit Diagnoses Not on filedocumented in this encounter Care Teams Php Website Developer Relationship Specialty Start Date End Date Taylor Bryant APRN [address] [place] [address] PCP - General 03/31/10 documented as of this encounter
--- OUTSIDE RECORDS SUMMARY | 2024-02-24 01:57 | XMS_ITS | Encounter Summary ---
Author Organization [facility] [place] [address] Care Team Providers Care Termite Treater Name Role Phone Taylor Bryant APRN Primary Care Provider [phone] [phone] Encounter Details Date Type Department Care Team ([facility] st Contact Info) Description 12/12/2023 Telephone Hematology [place] [phone] Gianna Sanabria RN Social History Tobacco Use [...] a long term (including now)? No 07/24/2023 IPV Inpatient Questions [...] Telephone Encounter - Gianna Sanabria RN - 12/12/2023 1:29 PM EDT Message received from Nursing :Patient is on 10 mg Prednisone for joint pain from 12/05-12/11 and please call on to discuss prednisone taper. Per Dr Peña to cut down to 5 mg T/C to patient: Call placed to patient who reported improvement on her joint pain. Patient was taking 10 mg Prednisone and was advised to start taking 5 mg from tomorrow daily until she sees Dr Peña on 12/25. Patient verbalizes agreement and understanding of plan of care and to call office for any new or worsening symptoms. Dr Peña is ok with Keeley continuing to take 5 mg of Prednisone until she sees him on . documented in this encounter Plan of Treatment Upcoming Encounters Date Type Department Care Team (Late st Contact Info) Description 02/27/2024 8:15 AM EDT TH Visit (TeleHealth) [place] [address] Jean-Pierre Peña MD [facility] DR HEMAT[place]Y [place] [address] Vicky Burnham APRN [facility] [place] [address] 02/28/2024 11:30 AM EDT Infusion Hematology Oncology at [address] [address] 03/19/2024 12:45 PM EST Laboratory Appointment Lab at [facility] Hematology Oncology [address] [place] [address] 03/19/2024 1:45 PM EST Office Visit Hematology [place] [phone] Jean-Pierre Peña MD [facility] DR HEMATOLOGY [place] [address] Vicky Burnham APRN [facility] [place] [address] 03/19/2024 3:30 PM EST Appointment Hematology [place] [address] 04/30/2024 12:15 PM EST Laboratory Appointment Lab at [facility] Hematology Oncology [address] [place] [address] 04/30/2024 1:15 PM EST Office Visit Hematology [place] [phone] Jean-Pierre Peña MD [facility] H[place]ATOLOGY [place] [address] Vicky Burnham APRN [facility] [place] [address] 04/30/2024 2:30 PM EST Appointment Hematology and Oncology at [facility] [place] [address] 05/22/2024 11:30 AM EST Office Visit Dermatology at [facility] [address] [place] [address] Inderjit Vilchis MD [facility] DR GILBERTO [place] [address] documented as of this encounter Visit Diagnoses Not on filedocumented in this encounter Care Teams Termite Treater Relationship Specialty Start Date End Date Taylor Bryant, ZARA [address] [place] [address] PCP - General 03/31/10 documented as of this encounter
--- OUTSIDE RECORDS SUMMARY | 2024-02-24 01:57 | XMS_ITS | Encounter Summary ---
Author Organization [facility] Address 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 Utilities Answer Date Recorded In the [...] a group home (including now)? No 07/24/2023 DH IPV Inpatient [...] Sig Dispensed Refills Start Date End Date minoxidiL (Loniten) 2.5 mg tabletIndications:Hair loss Take 0.5 tablets by mouth daily. 90 tablet 1 12/21/2023 ascorbic acid, Vitamin C, (Vitamin C) 500 mg tablet Take 500 mg by mouth daily. multivit-min/vit C/herb no.124 (AIRBORNE GUMMY ORAL) Take by mouth. cholecalciferol, Vitamin D3, 50 mcg (2,000 unit) Capsule Take by mouth. FLUoxetine (PROZAC) 40 mg Capsule Take 40 mg by mouth daily. predniSONE (Deltasone) 10 mg tablet Take 2 tablets by mouth daily for 30 days. Please take 2 tablets once a day for a week; then 1 tablet daily for seven days. 60 tablet 11/29/2023 12/29/2023 TURMERIC ORAL Take by mouth. 02/11/2024 elderberry fruit 350 mg Capsule Take by mouth. 02/11/2024 documented as of this encounter Plan of Treatment Upcoming Encounters Date Type Department Care Team (Late st Contact Info) Description 02/27/2024 8:15 AM EDT TH Visit (TeleHealth) [place]ematology [place] [phone] Jean-Pierre Peña MD [facility] DR HEMATOLOGY [place] [address] Vicky Burnham APRN [facility] [place] [address] 02/28/2024 11:30 AM EDT Infusion Hematology Oncology at [address] [phone] 03/19/2024 12:45 PM EST Laboratory Appointment Lab at [facility] Hematology Oncology [address] [place] [address] 03/19/2024 1:45 PM EST Office Visit Hematology [place] [address] Jean-Pierre Peña MD [facility] DR HEMATOLOGY [place] [address] Vicky Burnham HANDBAG FRAMER [facility] [place] [address] 03/19/2024 3:30 PM EST Appointment Hematology [place] [address] 04/30/2024 12:15 PM EST Laboratory Appointment Lab at [facility] Hematology Oncology [address] [place] [address] 04/30/2024 1:15 PM EST Office Visit Hematology [place] [phone] Jean-Pierre Peña MD [facility] DR HEMATOLOGY [place] [address] Vicky Burnham APRN [facility] [place] [address] 04/30/2024 2:30 PM EST Appointment Hematology [place] [address] 05/22/2024 11:30 AM EST Office Visit Dermatology at [facility] [address] [place] [address] Inderjit Vilchis MD [facility] DR GILBERTO [place] [address] documented as of this encounter Procedures Procedure Name Priority Date/Time Associated Diagnosis Comments CBC (WITH DIFF) STAT 12/26/2023 11:36 AM [...] unspecified lymph node region LACTATE DEHYDROGENASE STAT 12/26/2023 11:36 AM EDT Medication management 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, unspecified lymph node region COMPREHENSIVE METABOLIC PANEL STAT 12/26/2023 11:36 AM EDT Medication management 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, unspecified lymph node region documented in this encounter Results * Lactate Dehydrogenase (12/26/2023 11:36 AM EDT) Lactate Dehydrogenase 171 110 - 220 unit/L 12/26/2023 12:19 PM EDT [facility] Blood VENOUS BLOOD SPECIMEN / Unknown Venipuncture / Unknown 12/26/2023 11:36 AM EDT 12/26/2023 11:36 AM EDT Jean-Pierre Peña MD CHEMISTRY ORDERABLES Performing Organization Address City/[facility]/ZIP Co de Phone Number [facility] [place] [address] * T4, free (12/26/2023 11:36 AM EDT) Free T4 1.10 0.93 - 1.70 ng/dL 12/26/2023 12:19 PM EDT [facility] Comment: Reference Interval (ng/dL): ?? Females: ? First Trimester: 0.97-1.68 ? Second Trimester: 0.77-1.51 ? Third Trimester: 0.77-1.49 Blood VENOUS BLOOD SPECIMEN / Unknown Venipuncture / Unknown 12/26/2023 11:36 AM EDT 12/26/2023 11:36 AM EDT Jean-Pierre Peña MD CHEMISTRY ORDERABLES Performing Organization Address [facility] Co de Phone Number [facility] [place] [address] * TSH (12/26/2023 11:36 AM EDT) Thyroid Stimulating Hormone 0.85 0.27 - 4.20 mcIU/mL 12/26/2023 12:19 PM EDT [facility] Comment: Reference Interval (mcIU/mL): ?? Females: ? First Trimester: 0.23-3.88 ? Second Trimester: 0.22-3.90 ? Third Trimester: 0.44-4.66 Blood VENOUS BLOOD SPECIMEN / Unknown Venipuncture / Unknown 12/26/2023 11:36 AM EDT 12/26/2023 11:36 AM EDT Jean-Pierre Peña MD CHEMISTRY ORDERABLES [facility] [place] [address] * Comprehensive metabolic panel (12/26/2023 11:36 AM EDT) Glucose 106 65 - 199 mg/dL 12/26/2023 12:19 PM EDT [facility] Comment:Glucose Concentratio n >=200 mg/dL plus symptoms is consistent with Diabetes Mellitus. Blood Urea Nitrogen 16 8 - 18 mg/dL 12/26/2023 12:19 PM EDT [facility] Creatinine 1.00 0.70 - 1.20 mg/dL 12/26/2023 12:19 PM EDT [facility] Sodium 141 135 - 145 mMol/L 12/[facility]23 [facility] Potassium 4.1 3.5 - 5.0 mMol/L 12/26/2023 12:19 [facility] Chloride 106 98 - 107 mMol/L 12/26/2023 12:19 PM [facility] Carbon Dioxide 23 22 - 31 mMol/L 12/26/2023 12:19 [facility] Anion Gap 12 5 - 15 mMol/L 12/26/2023 12:19 PM [facility] Calcium 9.7 8.5 - 10.5 mg/dL 12/26/2023 12:19 [facility] Protein, Total 6.7 6.1 - 8.0 g/dL 12/26/2023 12:19 PM [facility] Albumin 4.0 3.2 - 5.2 g/dL 12/26/2023 12:19 PM EDT [facility] Aspartate Aminotransferase 11 <=30 unit/L 12/26/2023 12:[facility] Alanine Aminotransferase 14 0 - 30 unit/L 12/26/2023 12:19 PM [facility] Alkaline Phosphatase 73 35 - 105 unit/L 12/26/2023 12:19 PM [facility] Bilirubin, Total 0.4 <=1.3 mg/dL 12/26/2023 12:19 PM EDT [facility] Est Glomerular Filtration Rate - Female 65 mL/min/1. 73 m?? 12/26/2023 12:19 PM EDT [facility] Comment: This patient's [...] Calculator [employer] Fasting Status No 12/26/2023 12:19 PM EDT [facility] Blood VENOUS BLOOD SPECIMEN / Unknown Venipuncture / Unknown 12/26/2023 11:36 AM EDT 12/26/2023 11:36 AM EDT Jean-Pierre Peña MD CHEMISTRY ORDERABLES Performing Organization Address City/State/[facility] Co de Phone Number [facility] [place] [address] * (ABNORMAL) CBC (with Diff) (12/26/2023 11:36 AM EDT) White Blood Cell 7.67 4.00 - 9.50 x10(3)/mc L 12/26/2023 11:53 AM EDT [facility] Red Blood Cell 4.18 4.00 - 5.21 x10(6)/mc L 12/26/2023 11:53 AM EDT [facility] Hemoglobin 12.6 11.7 - 15.5 g/dL 12/26/2023 11:53 AM EDT [facility] Hematocrit 38.7 35.7 - 45.8 % 12/26/2023 11:53 AM [facility] Mean Cell Volume 92.6 82.6 - 94.4 fL 12/26/2023 11:53 AM [facility] Mean Cell Hemoglobin 30.1 27.1 - 32.0 pg 12/26/2023 11:53 AM [facility] Mean Cell Hemoglobin Concentration 32.6 31.7 - 35.0 g/dL 12/26/2023 11:53 AM [facility] Platelet 294 145 - 357 x10(3)/mc L 12/26/2023 11:53 AM [facility] Mean Platelet Volume 10.6 7.6 - 12.9 fL 12/26/2023 11:53 AM [facility] RDW Standard Deviation 48.5(H) 37.0 - 46.0 fL 12/26/2023 11:53 AM [facility] RDW coefficient of variation 14.4(H) 11.5 - 14.1 % 12/26/2023 11:53 AM [facility] NRBC% auto 0.0 % 12/26/2023 11:53 AM [facility] NRBC Absolute 0.00 0.00 - 0.00 x10(3)/mc L 12/26/2023 11:53 AM [facility] Neutrophil % 78.5 % 12/26/2023 11:53 AM [facility] Neutrophil Absolute (ANC) - Automated 6.02 1.70 - 6.10 x10(3)/mc L 12/26/2023 11:53 AM [facility] Lymph % 10.4 % 12/26/2023 11:53 AM [facility] Lymph Absolute 0.80(L) 0.90 - 3.20 x10(3)/mc L 12/26/2023 11:53 AM [facility] Monocyte % 6.8 % 12/26/2023 11:53 AM [facility] Monocyte Absolute 0.52 0.30 - 0.90 x10(3)/mc L 12/26/2023 11:53 AM EDT [facility] Eos % 3.5 % 12/26/2023 11:53 AM EDT [facility] Eos Absolute 0.27 0.00 - 0.40 x10(3)/mc L 12/26/2023 11:53 AM EDT [facility] Basophil % 0.5 % 12/26/2023 11:53 AM EDT [facility] Baso Absolute 0.04 0.00 - 0.10 x10(3)/mc L 12/26/2023 11:53 AM EDT [facility] Immature Gran % 0.3 % 11:53 AM EDT [facility] Immature Gran Absolute 0.02 0.00 - 0.04 x10(3)/mc L 12/26/2023 11:53 AM EDT [facility] Blood VENOUS BLOOD SPECIMEN / Unknown Venipuncture / Unknown 12/26/2023 11:36 AM EDT 12/26/2023 11:36 AM EDT Jean-Pierre Peña MD HEMATOLOGY ORDERABLE S Performing Organization Address City/State/[facility] Co de Phone Number [facility] [place] [address] documented in this encounter Visit Diagnoses Diagnosis Medication management Encounter for long-term (current) use of other medications 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
--- OUTSIDE RECORDS SUMMARY | 2024-02-24 01:57 | XMS_ITS | Encounter Summary ---
Author Organization [facility] Address [facility] [place] [address] Care Team Providers Care Corporate Law Specialist Name Role Phone AnnetteTaylor ZARA Primary Care Provider [phone] [phone] Encounter Details Date Type Department Care Team ([facility] st Contact Info) Description 11/14/2023 8:45 AM EDT Office Visit [place] [address] Sharath Parra MD [facility] DR [place]AT[place] [address] Vicky Burnham APRN [facility] [place] [address] Malignant melanoma of scalp (Primary Dx); Secondary malignancy of soft tissue; Medication management; Immunotherapy Social History Tobacco Use Types Packs/Day Years Used Date Smoking Tobacco: Former Smokeless Tobacco: Never Comments:quit at age 35 Alcohol Use Standard Drinks/Week Comments Yes 0 (1 standard drink = 0.6 oz pur e alcohol) social gatherings [facility] Utilities Answer Date Recorded In the past 12 months has [employer] electric, gas, oil, or water company threatened [...] encounter Progress Notes * Pushpaelenita Vicky M, PMP PROJECT MANAGER - 11/14/2023 8:45 AM EDT Images from the original note were not included. [facility] NOTE REFERING PHYSICIAN: DIAGNOSIS: Right [...] 9.72) performed by Castro Preciado MD at [facility] MAIN OR PRO BX/REMV, LYMPH NODE, DEEP CERV Right 09/16/2023 BIOPSY OR EXCISION OF LYMPH NODE(S), OPEN, DEEP CERVICAL NODES (WRVU 6.74) performed by Castro Preciado MD at [facility] MAIN OR PRO RADICAL RESECT OF TUMOR, SOFT TISSUE FACE OR SCALP, 2CM OR GREATER Right 09/16/2023 RADICAL RESECTION TUMOR SCALP; >2 CM (WRVU 15.26) performed by Castro Preciado MD at [facility] MAIN OR PRO SPLIT GRFT, HEAD, FAC, HAND, FEET <100SQCM Right 09/28/2023 SPLIT THICKNESS SKIN SPLIT GRAFT,100SQ CM OR LESS, NECK (WRVU 10.15) performed by Castro Preciado MD at [facility] MAIN OR TUBAL LIGATION MEDS: FLUoxetine, ascorbic [...] TH Visit (TeleHealth) [place] [address] Sharath Parra MD [facility] DR [place]AT[place] [address] Vicky Burnham APRN [facility] [place] [address] 02/28/2024 11:30 AM EDT Infusion Hematology Oncology at [address] [address] 03/19/2024 12:45 PM EST Laboratory Appointment Lab at [facility] Hematology Oncology [address] [place] [address] 03/19/2024 1:45 PM EST Office Visit [place]ology [place] [address] Sharath Parra MD [facility] DR HEMATOLOG[place] [address] Vicky Burnham APRN [facility] [place] [address] 03/19/2024 3:30 PM EST Appointment Hematology [place] [address] 04/30/2024 12:15 PM EST Laboratory Appointment Lab at [facility] Hematology Oncology [address] [place] [address] 04/30/2024 1:15 PM EST Office Visit Hematology [place] [address] Sharath Parra MD [facility] DR HEMATOLOG[place] [address] Vicky Burnham PMP PROJECT MANAGER [facility] [place] [address] 04/30/2024 2:30 PM EST Appointment Hematology [place] [address] 05/22/2024 11:30 AM EST Office Visit Dermatology at [address] [address] Inderjit Vilchis MD [facility] DR G[facility]ERT[facility] [place] [address] Scheduled Orders Name Type Priority Associated Diagnoses [...] children documented in this encounter Care Teams Corporate Law Specialist Relationship Specialty Start Date End Date Taylor Bryant APRN [address] [place] [address] PCP - General 03/31/10 documented as of this encounter
--- OUTSIDE RECORDS SUMMARY | 2024-02-24 01:57 | XMS_ITS | Encounter Summary ---
Author Organization [facility] Address [facility] [place] [address] Care Team Providers Care Enterprise Integration Developer Name Role Phone Taylor Bryant APRN Primary Care Provider [phone] [phone] Encounter Details Date Type Department Care Team (Latest Contact Info) Description 10/23/2023 Travel Social History Tobacco Use Types Packs/Day Years Used Date Smoking Tobacco: Former Smokeless Tobacco: Never Comments:quit at age 35 Alcohol Use Standard Drinks/Week Comments Yes 0 (1 standard drink = 0.6 oz pur e alcohol) social gatherings [facility] Utilities Answer Date Recorded In [...] TH Visit (TeleHealth) Hematology [place] [address] Jean-Pierre Peña MD [facility] DR HEMATOLOGY [place] [address] Vicky Burnham APRN [facility] [place] [address] 02/28/2024 11:30 AM EDT Infusion Hematology Oncology at [address] [address] 03/19/2024 12:45 PM EST Laboratory Appointment Lab [place] [facility] [place] [address] [place] [address] 03/19/2024 1:45 PM EST Office Visit Hematology [place] [address] Jean-Pierre Peña MD [facility] DR HEMATOLOGY [place] [address] Vicky Burnham APRN [facility] [place] [address] 03/19/2024 3:30 PM EST Appointment Hematology [place] [address] 04/30/2024 12:15 PM EST Laboratory Appointment Lab at [facility] [place] [address] [place] [address] 04/30/2024 1:15 PM EST Office Visit Hematology [place] [address] Jean-Pierre Peña MD [facility] DR HEMATOLOGY [place] [address] Vicky Burnham WOOD FENCE ERECTOR [facility] [place] [address] 04/30/2024 2:30 PM EST Appointment Hematology [place] [address] 05/22/2024 11:30 AM EST Office Visit Dermatology at [address] [phone] Inderjit Vilchis MD [facility] DR GIL[facility]ERTO STER[place] [address] documented as of this encounter Visit Diagnoses Not on filedocumented in this encounter Care Teams Enterprise Integration Developer Relationship Specialty Start Date End Date Taylor Bryant APRN [address] [place] [address] PCP - General 03/31/10 documented as of this encounter
--- OUTSIDE RECORDS SUMMARY | 2024-02-24 01:57 | XMS_ITS | Encounter Summary ---
Author Organization [facility] [place] [address] Care Team Providers Care Banquet Captain Name Role Phone Taylor Bryant APRN Primary Care Provider [phone] [phone] Encounter Details Date Type Department Care Team ([facility] st Contact Info) Description 11/29/2023 Telephone Hematology [place] [address] Gianna Sanabria RN Social History Tobacco Use [...] in a half-way (including now)? No 07/24/2023 IPV Inpatient Questions [...] 5 was on 11/13. Call placed to [facility] to reassess her joint pain. [...] 3 weeks, but have it done between [facility] and [facility]'. Patient is wondering if she is [...] TH Visit (TeleHealth) [place]ematology [place] [address] Jean-Pierre Peña MD [facility] DR HEMATOLOGY [place] [address] Vicky Burnham APRN [facility] [place] [address] 02/28/2024 11:30 AM EDT Infusion Hematology Oncology at [address] [address] 03/19/2024 12:45 PM EST Laboratory Appointment Lab at [facility] [place] [address] [place] [address] 03/19/2024 1:45 PM EST Office Visit Hematology [place] [address] Jean-Pierre Peña MD [facility] DR [place] [address] Vicky Bunrham APRN [facility] [place] [place] [address] 03/19/2024 3:30 PM EST Appointment Hematology and Oncology at [place] [phone] 04/30/2024 12:15 PM EST Laboratory Appointment Lab at [place] [phone] 04/30/2024 1:15 PM EST Office Visit Hematology and Oncology at [place] [phone] Jean-Pierre Peña MD [facility] DR [place] [address] Vicky Burnham DIRECTOR DESIGN [facility] DR [place] [address] 04/30/2024 2:30 PM EST Appointment Hematology [place] [address] 05/22/2024 11:30 AM EST Office Visit Dermatology at [facility] [address] [place] [address] Inderjit Vilchis MD [facility] DR GILBERTO STERLING[place] [address] documented as of this encounter Visit Diagnoses Not on filedocumented in this encounter Care Teams Banquet Captain Relationship Specialty Start Date End Date Taylor Bryant, DIRECTOR DESIGN [address] [place] [address] PCP - General 03/31/10 documented as of this encounter
--- OUTSIDE RECORDS SUMMARY | 2024-02-24 01:57 | XMS_ITS | Encounter Summary ---
Author Organization [facility] Address [facility] [place] [address] Care Team Providers Care Planning Specialist Name Role Phone Taylor Bryant APRN Primary Care Provider [phone] [phone] Encounter Details Date Type Department Care Team ([facility] st Contact Info) Description 11/08/2023 Notes Only Hematology and Oncology at [facility] [place] [address] Roselyn Sánchez Social History Tobacco Use Types Packs/Day Years Used Date Smoking Tobacco: Former Smokeless Tobacco: Never Comments:quit at age 35 Alcohol Use Standard Drinks/Week Comments Yes 0 (1 standard drink = 0.6 oz pur e alcohol) social gatherings [facility] Utilities Answer Date Recorded In [...] - 11/08/2023 3:27 PM EDT [facility] for another $175 to be used for gas expenses for [facility] appt. Roselyn Sánchez documented in this encounter Plan of Treatment Upcoming Encounters Date Type Department Care Team (Late st Contact Info) Description 02/27/2024 8:15 AM EDT TH Visit (TeleHealth) Hematology [place] [address] Jean-Pierre Peña MD [facility] DR [place] [address] Vicky Burnham APRN [facility] [place] [address] 02/28/2024 11:30 AM EDT Infusion Hematology Oncology at [address] [address] 03/19/2024 12:45 PM EST Laboratory Appointment Lab at [facility] Hematology Oncology [address] [place] [address] 03/19/2024 1:45 PM EST Office Visit Hematology [place] [address] Jean-Pierre Peña MD [facility] DR [place] [address] Vicky Burnham APRN [facility] [place] [address] 03/19/2024 3:30 PM EST Appointment Hematology [place] [phone] 04/30/2024 12:15 PM EST Laboratory Appointment Lab at [facility] Hematology Oncology [address] [place] [address] 04/30/2024 1:15 PM EST Office Visit Hematology [place] [address] Jean-Pierre Peña MD [facility] DR [place] [address] Vicky Burnham APRN [facility] [place] [address] 04/30/2024 2:30 PM EST Appointment Hematology [place] [address] 05/22/2024 11:30 AM EST Office Visit Dermatology at [address] [place] [address] Inderjit Vilchis MD [facility] DR [place]ERT[place] [address] documented as of this encounter Visit Diagnoses Not on filedocumented in this encounter Care Teams Planning Specialist Relationship Specialty Start Date End Date Taylor Bryant APRN [address] [place] [address] PCP - General 03/31/10 documented as of this encounter
--- OUTSIDE RECORDS SUMMARY | 2024-02-24 01:57 | XMS_ITS | Encounter Summary ---
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, unspecified lymph node region Procedures [id number] pembrolizumab (Keytruda) Jean-Pierre Peña MD [facility] DR HEMATOLOGY [place] [address] Jean-Pierre Peña MD [facility] [address] [place] [address] Referral ID Status Reason Start Date Expiration Date V isits Requested Visits Authorized [id number] Authorized 07/25/2023 07/24/2024 99 99 Encounter Details Date Type Department Care Team (Latest Contact Info) Description 11/14/2023 7:19 AM EDT - 11/14/2023 11:59 PM EDT Hospital Encounter Hematology [place] [address] Medication management; Malignant melanoma of scalp; 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 Chemotherapy administered per protocol. REACTIONS [...] TH Visit (TeleHealth) Hematology [place] [address] Jean-Pierre Peña MD [facility] DR HEMATOLOGY [place] [address] Vicky Burnham APRN [facility] [place] [address] 02/28/2024 11:30 AM EDT Infusion Hematology Oncology at [address] [address] 03/19/2024 12:45 PM EST Laboratory Appointment Lab at [facility] Hematology Oncology [address] [place] [address] 03/19/2024 1:45 PM EST Office Visit Hematology [place] [address] Jean-Pierre Peña MD [facility] DR HEMATOLOGY [place] [address] Vicky Burnham APRN [facility] [place] [address] 03/19/2024 3:30 PM EST Appointment Hematology [place] [address] 04/30/2024 12:15 PM EST Laboratory Appointment Lab at [facility] Hematology Oncology [address] [place] [address] 04/30/2024 1:15 PM EST Office Visit Hematology [place] [address] Jean-Pierre Peña MD [facility] DR HEMATOLOGY [place] [address] Vicky Burnham APRN [facility] [place] [address] 04/30/2024 2:30 PM EST Appointment Hematology [place] [address] 05/22/2024 11:30 AM EST Office Visit Dermatology at [place] [address] [place] [address] Inderjit Vilchis MD [facility] DR GILB[place] [address] documented as of this encounter Results * Lactate Dehydrogenase (11/14/2023 7:34 AM EDT) Lactate Dehydrogenase 165 110 - 220 unit/L [facility] Blood 11/14/2023 7:34 AM EDT 11/14/2023 7:45 AM EDT Narrative Resulting Agency Comment Spec In Lab Jean-Pierre Peña MD CHEMISTRY ORDERABLES Performing Organization Address City/[facility]/ZIP Co de Phone Number [facility] [place] [address] * T4, free (11/14/2023 7:34 AM EDT) Free T4 1.20 0.93 - 1.70 ng/dL [facility] Comment: Reference Interval (ng/dL): Females: ??First Trimester: 0.97-1.68 ??Second Trimester: 0.77-1.51 ??Third Trimester: 0.77-1.49 Blood 11/14/2023 7:34 AM EDT 11/14/2023 7:45 AM EDT Narrative Resulting Agency Comment Spec In Lab Jean-Pierre Peña MD CHEMISTRY ORDERABLES [facility] [place] [address] * TSH (11/14/2023 7:34 AM EDT) Thyroid Stimulating Hormone 0.97 0.27 - 4.20 mcIU/mL [facility] Comment: Reference Interval (mcIU/mL): Females: ??First Trimester: 0.23-3.88 ??Second Trimester: 0.22-3.90 ??Third Trimester: 0.44-4.66 Blood 11/14/2023 7:34 AM EDT 11/14/2023 7:45 AM EDT Narrative Resulting Agency Comment Spec In Lab Jean-Pierre Peña MD CHEMISTRY ORDERABLES [facility] [place] [address] * (ABNORMAL) Comprehensive metabolic panel (non-fasting) (11/14/2023 7:34 AM EDT) Glucose 103 65 - 199 mg/dL [facility] Comment:Diabetes: >=200 mg/d L plus symptoms Blood Urea Nitrogen 24(H) 8 - 18 mg/dL [facility] [...] - 107 mmol/L [facility] Carbon Dioxide 24 22 - 31 mmol/L [facility] Anion Gap 9 5 - 15 mmol/L [facility] Calcium 9.3 8.5 - 10.5 mg/dL [facility] Protein, Total 6.4 6.1 - 8.0 g/dL [facility] Albumin 3.8 3.2 - 5.2 g/dL [facility] Aspartate Aminotransferase 13 0 - 30 unit/L [facility] Alanine Aminotransferase 9 0 - 30 unit/L [facility] Alkaline Phosphatase 75 35 - 105 unit/L [facility] Bilirubin, Total 0.3 0.2 - 1.3 mg/dL [facility] Est Glomerular Filtration Rate 72 >=60 mL/min/1. 73 m?? [facility] [...] MD CHEMISTRY ORDERABLES [facility] [place] [address] documented in this encounter Visit Diagnoses Diagnosis [...] mL/hr documented in this encounter Care Teams Cable Dispatcher Relationship Specialty Start Date End Date Taylor Bryant APRN [address] [place] [address] PCP - General 03/31/10 documented as of this encounter
--- OUTSIDE RECORDS SUMMARY | 2024-02-24 01:57 | XMS_ITS | Encounter Summary ---
Author Organization [facility] [place] [address] Care Team Providers Care Threading Machine Tender Name Role Phone Taylor Bryant APRN Primary Care Provider [phone] [phone] Encounter Details Date Type Department Care Team ([facility] st Contact Info) Description 11/16/2023 Telephone Hematology [place] [address] Gianna Sanabria RN Social History Tobacco Use Types Packs/Day Years Used Date Smoking Tobacco: Former Smokeless Tobacco: Never Comments:quit at age 35 Alcohol Use Standard Drinks/Week Comments Yes 0 (1 standard drink = 0.6 oz pur e alcohol) social gatherings [facility] Utilities Answer Date Recorded [...] 11/16/2023 7:39 AM EDT Message received from Lucina:Please call patient in 2 weeks to assess symptoms, specifically joint pain documented in this encounter Plan of Treatment Upcoming Encounters Date Type Department Care Team (Late st Contact Info) Description 02/27/2024 8:15 AM EDT TH Visit (TeleHealth) Hematology [place] [address] Jean-Pierre Peña MD [facility] DR HEMATOLOGY [place] [address] Vicky Burnham APRN [facility] [place] [address] 02/28/2024 11:30 AM EDT Infusion Hematology Oncology at [address] [address] 03/19/2024 12:45 PM EST Laboratory Appointment Lab at [facility] Hematology Oncology [address] [place] [address] 03/19/2024 1:45 PM EST Office Visit Hematology [place] [address] Jean-Pierre Peña MD [facility] DR HEMATOLOGY [place] [address] Vicky Burnham APRN [facility] [place] [address] 03/19/2024 3:30 PM EST Appointment Hematology [place] [address] 04/30/2024 12:15 PM EST Laboratory Appointment Lab at [facility] Hematology Oncology [address] [place] [address] 04/30/2024 1:15 PM EST Office Visit Hematology [place] [address] Jean-Pierre Peña MD [facility] DR HEMATOLOGY [place] [address] Vicky Burnham APRN [facility] [place] [address] 04/30/2024 2:30 PM EST Appointment Hematology [place] [address] 05/22/2024 11:30 AM EST Office Visit Dermatology at [address] [place] [address] Inderjit Vilchis MD [facility] GIL[facility]ERT[facility] [place] [address] documented as of this encounter Visit Diagnoses Not on filedocumented in this encounter Care Teams Threading Machine Tender Relationship Specialty Start Date End Date Taylor Bryant APRN [address] [place] [address] PCP - General 03/31/10 documented as of this encounter
--- OUTSIDE RECORDS SUMMARY | 2024-02-24 01:57 | XMS_ITS | Encounter Summary ---
Author Organization [facility] Address 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 [address] [place] [address] Jean-Pierre Peña MD 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 REACTIONS (DESCRIPTION, TIME, INTERVENTION AND EFFECTIVENESS) None noted. A: Pt. tolerated treatment well. Keeley Gutierrez confirms that all questions and issues have beenaddressed. P: Return to clinic per routine. documented in this encounter Plan of Treatment Upcoming Encounters Date Type Department Care Team (Late st Contact Info) Description 02/27/2024 8:15 AM EDT TH Visit (TeleHealth) Hematology [place] [address] Jean-Pierre Peña MD [facility] [address] [place] [address] Vicky Burnham APRN [facility] [place] [address] 02/28/2024 11:30 AM EDT Infusion Hematology Oncology at [address] [address] 03/19/2024 12:45 PM EST Laboratory Appointment Lab [place] [facility] [place] [address] [place] [address] 03/19/2024 1:45 PM EST Office Visit Hematology [place] [address] Jean-Pierre Peña MD [facility] [address] [place] [address] Vicky Burnham APRN [facility] [place] [address] 03/19/2024 3:30 PM EST Appointment Hematology [place] [phone] 04/30/2024 12:15 PM EST Laboratory Appointment Lab at [facility] [place]ematology On[place] [address] [place] [address] 04/30/2024 1:15 PM EST Office Visit Hematology [place] [address] Jean-Pierre Peña MD [facility] [address] [place] [address] Vicky Burnham APRN [facility] [place] [address] 04/30/2024 2:30 PM EST Appointment Hematology [place] [phone] 05/22/2024 11:30 AM EST Office Visit Dermatology at [place] [address] [place] [address] Inderjit Vilchis MD [facility] [place] [address] documented as of this encounter Results * Lactate Dehydrogenase (10/24/2023 7:48 AM EDT) Lactate Dehydrogenase 194 110 - 220 unit/L [facility] Blood 10/24/2023 7:48 AM EDT 10/24/2023 7:53 AM EDT Narrative Resulting Agency Comment Spec In Lab Jean-Pierre Peña MD CHEMISTRY ORDERABLES Performing Organization Address City/[facility]/ZIP Co de Phone Number [facility] [place] [address] * T4, free (10/24/2023 7:48 AM EDT) Free T4 1.26 0.93 - 1.70 ng/dL [facility] Comment: Reference Interval (ng/dL): Females: ??First Trimester: 0.97-1.68 ??Second Trimester: 0.77-1.51 ??Third Trimester: 0.77-1.49 Blood 10/24/2023 7:48 AM EDT 10/24/2023 7:53 AM EDT Narrative Resulting Agency Comment Spec In Lab Jean-Pierre Peña MD CHEMISTRY ORDERABLES Performing Organization Address City/[facility]/ZIP Co de Phone Number [facility] [place] [address] * TSH (10/24/2023 7:48 AM EDT) Thyroid Stimulating Hormone 0.89 0.27 - 4.20 mcIU/mL [facility] Comment: Reference Interval (mcIU/mL): Females: ??First Trimester: 0.23-3.88 ??Second Trimester: 0.22-3.90 ??Third Trimester: 0.44-4.66 Blood 10/24/2023 7:48 AM EDT 10/24/2023 7:53 AM EDT Narrative Resulting Agency Comment Spec In Lab Jean-Pierre Peña MD CHEMISTRY ORDERABLES [facility] [place] [address] * (ABNORMAL) Comprehensive metabolic panel (non-fasting) (10/24/2023 7:48 AM EDT) Glucose 99 65 - 199 mg/dL [facility] Comment:Diabetes: >=200 mg/d L plus symptoms Blood Urea Nitrogen 27(H) 8 - 18 mg/dL [facility] Creatinine 0.88 0.70 - 1.20 mg/dL [facility] Sodium 139 135 - 145 mmol/L [facility] Potassium 4.3 3.5 - 5.0 mmol/L [facility] Comment: Please note: ??Patients with WBC >100,000 may have falsely elevated Potassium levels. ??For accurate Potassium quantification in these patients send serum separator tube (gold top) for subsequent determinations. ??Contact the Clinical Chemistry Laboratory if there are any questions. Chloride 105 98 - 107 mmol/L [facility] Carbon Dioxide 22 22 - 31 mmol/L [facility] Anion Gap 12 5 - 15 mmol/L [facility] Calcium 9.5 8.5 - 10.5 mg/dL [facility] Protein, Total 6.8 6.1 - 8.0 g/dL [facility] Albumin 4.2 3.2 - 5.2 g/dL [facility] Aspartate Aminotransferase 25 0 - 30 unit/L [facility] Alanine Aminotransferase 31(H) 0 - 30 unit/L [facility] Alkaline Phosphatase 92 35 - 105 unit/L [facility] Bilirubin, Total 0.6 0.2 - 1.3 mg/dL [facility] Est Glomerular Filtration Rate 76 >=60 mL/min/1. 73 m?? [facility] Comment: This patient's estimated [...] Peña MD CHEMISTRY ORDERABLES Performing Organization Address City/State/[facility] [[email or web address]] Co de Phone Number [facility] [place] [address] documented in this encounter Visit Diagnoses Diagnosis [...] mL/hr documented in this encounter Care Teams Inspector Publications Relationship Specialty Start Date End Date Taylor Bryant APRN [address] [place] [address] PCP - General 03/31/10 documented as of this encounter
--- OUTSIDE RECORDS SUMMARY | 2024-02-24 01:57 | XMS_ITS | Encounter Summary ---
Author Organization [facility] Address [facility] [place] [address] Care Team Providers Care Paper Plate Machine Tender Name Role Phone Taylor Bryant APRN Primary Care Provider [phone] [phone] Encounter Details Date Type Department Care Team (Latest Contact Info) Description 12/22/2023 Travel Social History Tobacco Use Types Packs/Day Years Used Date Smoking Tobacco: Former Smokeless Tobacco: Never Comments:quit at age 35 Alcohol Use Standard Drinks/Week Comments Yes 0 (1 standard drink = 0.6 oz pur e alcohol) social gatherings [facility] Utilities Answer Date Recorded In the [...] TH Visit (TeleHealth) [place] [address] Jean-Pierre Peña MD [facility] [address] [place] [address] Vicky Burnham APRN [facility] [place] [address] 02/28/2024 11:30 AM EDT Infusion Hematology Oncology at [address] [address] 03/19/2024 12:45 PM EST Laboratory Appointment Lab at [facility] Hematology Oncology [address] [place] [address] 03/19/2024 1:45 PM EST Office Visit [place]ematology [place] [phone] Jean-Pierre Peña MD [facility] [address] [place] [address] Vicky Burnham APRN [facility] [place] [address] 03/19/2024 3:30 PM EST Appointment Hematology [place] [address] 04/30/2024 12:15 PM EST Laboratory Appointment Lab at [facility] Hematology Oncology [address] [place] [address] 04/30/2024 1:15 PM EST Office Visit Hematology [place] [phone] Jean-Pierre Peña MD [facility] [address] [place] [address] Vicky Burnham BREAST TRIMMER [facility] [place] [address] 04/30/2024 2:30 PM EST Appointment Hemat[place] [address] 05/22/2024 11:30 AM EST Office Visit Dermatology at [address] [phone] Inderjit Vilchis MD [facility] [place] [address] documented as of this encounter Visit Diagnoses Not on filedocumented in this encounter Care Teams Paper Plate Machine Tender Relationship Specialty Start Date End Date Taylor Bryant APRN [address] [place] [address] PCP - General 03/31/10 documented as of this encounter
--- OUTSIDE RECORDS SUMMARY | 2024-02-24 01:57 | XMS_ITS | Encounter Summary ---
Author Organization [facility] Address [facility] [place] [address] Care Team Providers Care Manufacturing Management Associate Name Role Phone Taylor Bryant APRN Primary Care Provider [phone] [phone] Encounter Details Date Type Department Care Team ([facility] st Contact Info) Description 11/21/2023 Telephone Hematology [place] [address] Roselyn Sánchez Social History Tobacco Use Types Packs/Day Years Used Date Smoking Tobacco: Former Smokeless Tobacco: Never Comments:quit at age 35 Alcohol Use Standard Drinks/Week Comments Yes 0 (1 standard drink = 0.6 oz pur e alcohol) social gatherings [facility] Utilities Answer Date Recorded In [...] in a correction (including now)? No 07/24/2023 IPV Inpatient Questions [...] - 11/21/2023 4:17 PM EDT [facility] Wood Milling Machine Operator spoke to Keeley. [facility] awarded another $175 to be used for gas expenses for [facility] appt. No further outreach needed at this time. Patient has my contact information if she need future assistance. Roselyn Sánchez documented in this encounter Plan of Treatment Upcoming Encounters Date Type Department Care Team (Late st Contact Info) Description 02/27/2024 8:15 AM EDT TH Visit (TeleHealth) [place]ematology [place] [address] Jean-Pierre Peña MD [facility] [place] [address] Vicky Burnham APRN [facility] [place] [address] 02/28/2024 11:30 AM EDT Infusion Hematology Oncology at [address] [address] 03/19/2024 12:45 PM EST Laboratory Appointment Lab [place] [facility] [place] [address] [place] [address] 03/19/2024 1:45 PM EST Office Visit Hematology [place] [address] Jean-Pierre Peña MD [facility] [place] [address] Vicky Burnham APRN [facility] [place] [place] [address] 03/19/2024 3:30 PM EST Appointment Hematology [place] [address] 04/30/2024 12:15 PM EST Laboratory Appointment Lab at [facility] [place]ology On[place] [address] [place] [address] 04/30/2024 1:15 PM EST Office Visit Hematology [place] [address] Jean-Pierre Peña MD [facility] [place] [address] Vicky Burnham BOX TOE STITCHER [facility] [place] [address] 04/30/2024 2:30 PM EST Appointment Hematology [place] [address] 05/22/2024 11:30 AM EST Office Visit Dermatology at [facility] [address] [place] [address] Inderjit Vilchis MD [facility] DR [facility] [address] documented as of this encounter Visit Diagnoses Not on filedocumented in this encounter Care Teams Manufacturing Management Associate Relationship Specialty Start Date End Date Taylor Bryant APRN [address] [place] [address] PCP - General 03/31/10 documented as of this encounter
--- OUTSIDE RECORDS SUMMARY | 2024-02-24 01:57 | XMS_ITS | Encounter Summary ---
Author Organization Counts Include [facility] Address [facility] [place] [address] Care Team Providers Care Lamination Machine Operator Name Role Phone Taylor Bryant APRN Primary Care Provider [phone] Encounter Details Date Type Department Care Team ([facility] st Contact Info) Description 11/16/2023 Telephone Otolaryngology at [place] [phone] Mary Lou Bryant Social History Tobacco Use Types Packs/Day Years Used Date Smoking Tobacco: Former Smokeless Tobacco: Never Comments:quit at age 35 Alcohol Use Standard Drinks/Week Comments Yes 0 (1 standard drink = 0.6 oz pur e alcohol) social gatherings [facility] Utilities Answer Date Recorded In the [...] TH Visit (TeleHealth) [place] [address] Jean-Pierre Peña MD [facility] DR HEMATOLOGY [place] [address] Vicky Burnham APRN [facility] [place] [address] 02/28/2024 11:30 AM EDT Infusion Hematology Oncology at [address] [address] 03/19/2024 12:45 PM EST Laboratory Appointment Lab [place] [facility] [place] [address] [place] [address] 03/19/2024 1:45 PM EST Office Visit [place]ematology [place] [phone] Jean-Pierre Peña MD [facility] DR HEMATOLOGY [place] [address] Vicky Burnham APRN [facility] DR [place] [address] 03/19/2024 3:30 PM EST Appointment Hematology [place] [address] 04/30/2024 12:15 PM EST Laboratory Appointment Lab [place] [facility] [place] [address] [place] [address] 04/30/2024 1:15 PM EST Office Visit Hematology [place] [address] Jean-Pierre Peña MD [facility] DR HEMATOLOGY [place] [address] Vicky Burnham APRN [facility] [place] [address] 04/30/2024 2:30 PM EST Appointment Hematology [place] [address] 05/22/2024 11:30 AM EST Office Visit Dermatology at [address] [phone] Inderjit Vilchis MD [facility] DR [facility] [address] documented as of this encounter Visit Diagnoses Not on filedocumented in this encounter Care Teams Lamination Machine Operator Relationship Specialty Start Date End Date Taylor Bryant APRN [address] [place] [address] PCP - General 03/31/10 documented as of this encounter
--- OUTSIDE RECORDS SUMMARY | 2024-02-24 01:57 | XMS_ITS | Encounter Summary ---
Author Organization [facility] [place] [address] Care Team Providers Care Cocoa Bean Roaster Name Role Phone Taylor Bryant APRN Primary Care Provider [phone] Encounter Details Date Type Department Care Team ([facility] st Contact Info) Description 12/06/2023 Telephone Hematology [place] [phone] Gianna Sanabria RN Social History Tobacco Use [...] Telephone Encounter - Gianna Sanabria RN - 12/06/2023 1:33 PM EDT Message received from Provider:Please have her CMP locally in 3 weeks. Message send to Farhan to request lab result from [facility] CMP resulted and message send to Dr Peña and Lucina to review. Chloride 108 Message will be send to after hours nurse to enter labs. documented in this encounter Plan of Treatment Upcoming Encounters Date Type Department Care Team (Late st Contact Info) Description 02/27/2024 8:15 AM EDT TH Visit (TeleHealth) [place] [address] Jean-Pierre Peña MD [facility] DR [place] [address] Vicky Burnham APRN [facility] [place] [address] 02/28/2024 11:30 AM EDT Infusion Hematology Oncology at [address] [address] 03/19/2024 12:45 PM EST Laboratory Appointment Lab at [facility] Hematology Oncology [address] [place] [address] 03/19/2024 1:45 PM EST Office Visit [place]ematology [place] [address] Jean-Pierre Peña MD [facility] DR [place] [address] Vicky Burnham PULP DRIER FIRER [facility] [place] [address] 03/19/2024 3:30 PM EST Appointment Hematology [place] [address] 04/30/2024 12:15 PM EST Laboratory Appointment Lab at [facility] Hematology Oncology [address] [place] [address] 04/30/2024 1:15 PM EST Office Visit Hematology [place] [address] Jean-Pierre Peña MD [facility] DR [place] [address] Vicky Burnham PULP DRIER FIRER [facility] [place] [address] 04/30/2024 2:30 PM EST Appointment Hematology [place] [address] 05/22/2024 11:30 AM EST Office Visit Dermatology at [facility] [address] [place] [address] Inderjit Vilchis MD [facility] DR GIL[facility]ERT[facility] [place] [address] documented as of this encounter Visit Diagnoses Not on filedocumented in this encounter Care Teams Cocoa Bean Roaster Relationship Specialty Start Date End Date Taylor Bryant APRN [address] [place] [address] PCP - General 03/31/10 documented as of this encounter
--- OUTSIDE RECORDS SUMMARY | 2024-02-24 01:57 | XMS_ITS | Encounter Summary ---
Author Organization [facility] Address [facility] [place] [address] Care Team Providers Care Residential Property Manager Name Role Phone Taylor Bryant APRN Primary Care Provider [phone] Encounter Details Date Type Department Care Team (Latest Contact Info) Description 12/19/2023 Travel Social History Tobacco Use Types Packs/Day Years Used Date Smoking Tobacco: Former Smokeless Tobacco: Never Comments:quit at age 35 Alcohol Use Standard Drinks/Week Comments Yes 0 (1 standard drink = 0.6 oz pur e alcohol) social gatherings [facility] Utilities Answer Date Recorded [...] TH Visit (TeleHealth) Hematology [place] [address] Jean-Pierre Peña MD [facility] DR [place] [address] [facility] [place] [address] 02/28/2024 11:30 AM EDT Infusion Hematology Oncology at [address] [address] 03/19/2024 12:45 PM EST Laboratory Appointment Lab at [facility] [place] [place] Hematology Oncology [address] [place] [address] 03/19/2024 1:45 PM EST Office Visit Hematology [place] [phone] Jean-Pierre Peña MD [facility] DR [place] [address] [facility] [place] [address] 03/19/2024 3:30 PM EST Appointment Hematology [place] [address] 04/30/2024 12:15 PM EST Laboratory Appointment Lab at [facility] [place] [place] Hematology Oncology [address] [place] [address] 04/30/2024 1:15 PM EST Office Visit Hematology [place] [address] Jean-Pierre Peña MD [facility] DR [place] [address] iVcky Burnham TOWEL DISTRIBUTOR [facility] [place] [address] 04/30/2024 2:30 PM EST Appointment Hematology [place] [address] 05/22/2024 11:30 AM EST Office Visit Dermatology at [address] [phone] Inderjit Vilchis MD [facility] DR [facility] [address] documented as of this encounter Visit Diagnoses Not on filedocumented in this encounter Care Teams Residential Property Manager Relationship Specialty Start Date End Date Taylor Bryant APRN [address] [place] [address] PCP - General 03/31/10 documented as of this encounter
--- OUTSIDE RECORDS SUMMARY | 2024-02-24 01:57 | XMS_ITS | Encounter Summary ---
Author Organization [facility] Address [facility] [place] [address] Care Team Providers Care Pastrycook'S Assistant Name Role Phone Taylor Bryant APRN Primary Care Provider [phone] [phone] Encounter Details Date Type Department Care Team ([facility] st Contact Info) Description 10/27/2023 Telephone Hematology [place] [phone] Roselyn Sánchez Social History Tobacco Use Types [...] a senior care (including now)? No 07/24/2023 IPV Inpatient Questions [...] - 10/27/2023 10:03 AM EDT [facility] spoke with Keeley. [facility] dona awarded payment for auto loan $582.70. Keeley is very grateful for this assistance. She is sending me gas receipts , so I can reapply to [facility] for more support with gas expenses to . Roselyn Sánchez documented in this encounter Plan of Treatment Upcoming Encounters Date Type Department Care Team (Late st Contact Info) Description 02/27/2024 8:15 AM EDT TH Visit (TeleHealth) Hematology [place] [address] Jean-Pierre ePña MD [facility] [address] H[place] [address] Vicky Burnham APRN [facility] [place] [address] 02/28/2024 11:30 AM EDT Infusion Hematology Oncology at [address] [address] 03/19/2024 12:45 PM EST Laboratory Appointment Lab [place] [facility] [place] [address] [place] [address] 03/19/2024 1:45 PM EST Office Visit Hematology [place] [phone] Jean-Pierre Peña MD [facility] HEMATOLOGY [place] [address] Vicky Burnham APRN [facility] [place] [address] 03/19/2024 3:30 PM EST Appointment Hematology [place] [address] 04/30/2024 12:15 PM EST Laboratory Appointment Lab at [facility] [place] [address] [address] 04/30/2024 1:15 PM EST Office Visit Hematology [place] [address] Jean-Pierre Peña MD [facility] HEMATOLOGY [place] [address] Vicky Burnham APRN [facility] [place] [address] 04/30/2024 2:30 PM EST Appointment Hematology [place] [address] 05/22/2024 11:30 AM EST Office Visit Dermatology at [facility] [address] [place] [address] Inderjit Vilchis MD [facility] [address] [facility] [place] [address] documented as of this encounter Visit Diagnoses Not on filedocumented in this encounter Care Teams Pastrycook'S Assistant Relationship Specialty Start Date End Date Taylor Bryant APRN [address] [place] [address] PCP - General 03/31/10 documented as of this encounter
--- OUTSIDE RECORDS SUMMARY | 2024-02-24 01:57 | XMS_ITS | Encounter Summary ---
Author Organization [facility] [place] [address] Care Team Providers Care Fine Arts Chair Name Role Phone Taylor Bryant APRN Primary Care Provider [phone] [phone] Encounter Details Date Type Department Care Team ([facility] st Contact Info) Description 12/15/2023 Telephone Hematology [place] [phone] Cheryl Daley RN Social History Tobacco Use Types Packs/Day Years Used Date Smoking Tobacco: Former Smokeless Tobacco: Never Comments:quit at age 35 Alcohol Use Standard Drinks/Week Comments Yes 0 (1 standard drink = 0.6 oz pur e alcohol) social gatherings [facility] Utilities Answer Date Recorded In [...] encounter Miscellaneous Notes * Telephone Encounter - Cheryl Daley RN - 12/15/2023 2:12 PM EDT Message received from mobile game engineer: Keeley called, she is asking if a colonoscopy would be necessaryif she is getting CT scans every four months. Her primary wants her to have this done. She can be reached at [phone] Request for clarification sent to Dr. Peña. Message received from Dr. Peña: Yes, CT is not suffice Message sent to patient via [employer] to let her know colonoscopy is still recommended. Message received from patient via [employer]: What about mammograms Message received from Dr. Peña: She needs mammograms as indicated. Message sent to patient via [employer] to let her know she should still have mammograms. documented in this encounter Plan of Treatment Upcoming Encounters Date Type Department Care Team (Late st Contact Info) Description 02/27/2024 8:15 AM EDT TH Visit (TeleHealth) Hematology [place] [address] Jean-Pierre Peña MD [facility] [address] [place] [address] Vicky Burnham APRN [facility] [place] [place] [address] 02/28/2024 11:30 AM EDT Infusion Hematology Oncology at [address] [address] 03/19/2024 12:45 PM EST Laboratory Appointment Lab at [facility] [place] On[place] [address] [place] [address] 03/19/2024 1:45 PM EST Office Visit Hematology [place] [phone] Jean-Pierre Peña MD [facility] [place] [address] Vicky Burnham APRN [facility] [place] [address] 03/19/2024 3:30 PM EST Appointment Hematology [place] [address] 04/30/2024 12:15 PM EST Laboratory Appointment Lab at [facility] [place]ematology Oncology [address] [place] [address] 04/30/2024 1:15 PM EST Office Visit Hematology [place] [address] Jean-Pierre Peña MD [facility] [place] [address] Vicky Burnham APRN [facility] [place] [address] 04/30/2024 2:30 PM EST Appointment Hematology and Oncology at [facility] [place] [address] 05/22/2024 11:30 AM EST Office Visit Dermatology at [facility] [address] [place] [address] Inderjit Vilchis MD [facility] DR GIL[place] [address] documented as of this encounter Visit Diagnoses Not on filedocumented in this encounter Care Teams Fine Arts Chair Relationship Specialty Start Date End Date Taylor Bryant, ZARA [address] [place] [address] PCP - General 03/31/10 documented as of this encounter
--- OUTSIDE RECORDS SUMMARY | 2024-02-24 01:57 | XMS_ITS | Encounter Summary ---
Author Organization [facility] Address [facility] [place] [address] Care Team Providers Care Sleeve Tailor Name Role Phone Taylor Bryant APRN Primary Care Provider [phone] Encounter Details Date Type Department Care Team ([facility] st Contact Info) Description 12/07/2023 External Results Hematology [place] [address] Jean-Pierre Peña MD [facility] [address] [place] [address] Social History Tobacco Use Types Packs/Day Years [...] TH Visit (TeleHealth) Hematology [place] [address] Jean-Pierre Peña MD [facility] [address] [place] [address] Vicky Burnham APRN [facility] [place] [address] 02/28/2024 11:30 AM EDT Infusion Hematology Oncology at [address] [address] 03/19/2024 12:45 PM EST Laboratory Appointment Lab at [facility] Hematology Oncology [address] [place] [address] 03/19/2024 1:45 PM EST Office Visit Hematology [place] [address] Jean-Pierre Peña MD [facility] [place] [address] Vicky Burnham APRN [facility] [place] [address] 03/19/2024 3:30 PM EST Appointment Hematology [place] [address] 04/30/2024 12:15 PM EST Laboratory Appointment Lab at [facility] Hematology [address] [address] 04/30/2024 1:15 PM EST Office Visit Hematology [place] [address] Jean-Pierre Peña MD [facility] [address] [place] [address] Vicky Burnham COST ACCOUNTANT [facility] [place] [address] 04/30/2024 2:30 PM EST Appointment Hematology [place] [address] 05/22/2024 11:30 AM EST Office Visit Dermatology at [address] [phone] Inderjit Vilchis MD [facility] [address] [facility]ERT[place] [address] documented as of this encounter Procedures Procedure Name Priority Date/Time Associated Diagnosis Comments COMPREHENSIVE METABOLIC PANEL Routine 12/05/2023 documented in this encounter Results * Comprehensive metabolic panel (non-fasting) (12/05/2023) Glucose 88 Blood Urea Nitrogen 19 Creatinine 1.0 Sodium 143 Potassium 3.2 Chloride 108 Calcium 9.0 Albumin 3.3 Bilirubin, Total 0.66 Aspartate Aminotransferase 18 Alanine Aminotransferase 31 Blood 12/05/2023 Historical Provider CHEMISTRY ORDERAB LES documented in this encounter Visit Diagnoses Not on filedocumented in this encounter Care Teams Sleeve Tailor Relationship Specialty Start Date End Date Taylor Bryant, ZARA [address] [place] [address] PCP - General 03/31/10 documented as of this encounter
--- OUTSIDE RECORDS SUMMARY | 2024-02-24 01:57 | XMS_ITS | Encounter Summary ---
Author Organization [facility] Address [facility] [place] [address] Care Team Providers Care Youth Pastor Name Role Phone Taylor Bryant APRN Primary Care Provider [phone] [phone] Encounter Details Date Type Department Care Team ([facility] st Contact Info) Description 12/20/2023 2:15 PM EDT Office Visit Dermatology at [facility] [address] [place] [address] Inderjit Argueta MD [facility] DR GILBERTO [place] [address] History of melanoma; Seborrheic keratosis; Solar lentigo; Multiple benign melanocytic nevi of both upper extremities, both lower extremities, and trunk; Orourke angioma; Hair loss; Healing wound Social History Tobacco Use Types Packs/Day Years Used Date Smoking Tobacco: Former Smokeless Tobacco: Never Comments:quit at age 35 Alcohol Use Standard Drinks/Week Comments Yes 0 (1 standard drink = 0.6 oz pur e alcohol) social gatherings [facility] Utilities Answer Date Recorded In the past 12 months has [employer], gas, oil, or water [employer] threatened to shut off services in your [...] in a longterm (including now)? No 07/24/2023 DH IPV Inpatient [...] Progress Notes * Inderjit Argueta MD - 12/20/2023 2:15 PM EDT Images from the original note were not included. DEPARTMENT OF DERMATOLOGY Medical Dermatology Clinic Provider: INDERJIT ARGUETA MD Patient's preferred name Keeley Preferred contact method for results [x]Phone []myD-H []Letter Detailed phone message OK? yes Are there any other people with whom we may discuss your care? 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 Patient returns to clinic today for a full skin exam and she reports lesion on the left lateral ankle, been there for awhile, asymptomatic. High risk melanoma. Scalp. See notes. Now getting immunotherapy, seems to be handling it well. With today, very supportive. Scar/graft looks good, no nodes or swelling in neck or axillae. -Seeing Dr. Peña soon, along with scans, scheduled. Last visit at Dermatology: 09/06/2023 Last visit with this provider: 09/06/2023 Medications: Reviewed in eD-H Allergies: Reviewed in eD-H Skin Examination: Full skin examination: Patient asked to undress to their comfort level. Verbalized that the provider???s preference is that the patient remove all clothing and that the provider will not examine areas patient elects to keep covered. Patient elects to keep underwear on and have the following examined: scalp, hair, face, ears, neck, chest, axillae, abdomen, back, and upper and lower extremities. Genitalia and buttocks were not examined. Assessment/Plan # Malignant Melanoma - at least 1.5mm Breslow depth, right occipital scalp - Discussed diagnosis and answered all patients questions and concerns - Lymph nodes negative - Cam lamp negative - Reviewed treatment plan. Adjuvant Pembrolizumab infusions. Excised 09/16/23. #. Benign Appearing Nevi - Multiple, 0.3-0.5cm, medium-brown, evenly-pigmented macules and papules.All with regular pigment pattern on dermoscopy. No pigmented lesions suspicious for melanoma. - Benign. No treatment necessary. - Reassured about benign nature and natural history. #. Orourke Angiomas - Multiple 0.2-0.4cm bright red, well-demarcated papules - Benign. No treatment necessary. - Reassured about benign nature and natural history. #. Seborrheic Keratoses - Multiple 0.4-1 cm, brown-black papules/plaques with waxy stuck on appearance - Benign. No treatment necessary. - Reassured about benign nature and natural history. #. Solar Lentigines - Blotchy pigmentation and telangiectasia on sun-exposed skin with subtle yellowish cobblestoned appearance. - Benign. No treatment necessary. - Reassured about benign nature and natural history. - Sun avoidance, protective clothing and the use of SPF 30+ sunscreen is advised. Observe closely for skin changes and call if such occurs. #. Healing Graft site - Silver nitrate to the bottom corner of wound - Area bandaged today with mepilex border bandage #. Hair loss - Start Rx: Minoxidil 1.25 mg - Discussed potential side effects includin tachycardia, lightheadedness, leg swelling and increased facial hair. Patient wants to proceed. RTC: 4 months for FSE []Note routed to physician office secretary []Recall placed in scheduling system [x]Appointment scheduled at checkout Scribe attestation: Luz Elena Christina RN has performed the documentation for this encounter in the presence of and acting as a scribe for INDERJIT ARGUETA MD. I performed the above scribed service and agree with the accuracy of the documentation in this encounter. Reviewed and signed by: INDERJIT ARGUETA MD Dermatology [facility] documented in this encounter Plan of Treatment Upcoming Encounters Date Type Department Care Team (Late st Contact Info) Description 02/27/2024 8:15 AM EDT TH Visit (TeleHealth) [place] [address] Jean-Pierre Peña MD [facility] DR HEMATOLOGY [place] [address] Vicky Burnham APRN [facility] [place] [address] 02/28/2024 11:30 AM EDT Infusion Hematology Oncology at [address] [address] 03/19/2024 12:45 PM EST Laboratory Appointment Lab [place] [facility] [place] [address] [place] [address] 03/19/2024 1:45 PM EST Office Visit [place]ematology [place] [address] Jean-Pierre Peña MD [facility] DR HEMATOLOGY [place] [address] Vicky Burnham APRN [facility] [place] [address] 03/19/2024 3:30 PM EST Appointment Hematology [place] [address] 04/30/2024 12:15 PM EST Laboratory Appointment Lab at [facility] [place] On[place] [address] [place] [address] 04/30/2024 1:15 PM EST Office Visit [place]ematology [place] [address] Jean-Pierre Peña MD [facility] DR HEMATOLOGY [place] [address] Vicky Burnham MANAGER CARDIOLOGY [facility] [place] [address] 04/30/2024 2:30 PM EST Appointment Hematology [place] [address] 05/22/2024 11:30 AM EST Office Visit Dermatology at [address] [phone] Inderjit Argueta MD [facility] DR [facility] [place] [address] documented as of this encounter Visit Diagnoses Diagnosis History of melanoma Personal history of malignant melanoma of skin Seborrheic keratosis Other seborrheic keratosis Solar lentigo Other dyschromia Multiple benign melanocytic nevi of both upper extremities, both lower extremities, and trunk Orourke angioma Nevus, non-neoplastic Hair loss Alopecia, unspecified Healing wound documented in this encounter Care Teams Youth Pastor Relationship Specialty Start Date End Date Taylor Bryatn APRN [address] [place] [address] PCP - General 03/31/10 documented as of this encounter
--- OUTSIDE RECORDS SUMMARY | 2024-02-24 01:57 | XMS_ITS | Encounter Summary ---
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, unspecified lymph node region Discharge Disposition: Home Social History Tobacco Use Types Packs/Day Years Used Date Smoking Tobacco: Former Smokeless Tobacco: Never Comments:quit at age 35 Alcohol Use Standard Drinks/Week Comments Yes 0 (1 standard drink = 0.6 oz pur e alcohol) social gatherings [facility] Utilities Answer Date Recorded In the [...] TH Visit (TeleHealth) Hematology [place] [address] Jean-Pierre Peña MD [facility] HEMATOLOGY [place] [address] Vicky Burnham, OPERATIONS CONTROLLER [facility] [place] [address] 02/28/2024 11:30 AM EDT Infusion Hematology Oncology at [address] [address] 03/19/2024 12:45 PM EST Laboratory Appointment Lab at [facility] Hematology Oncology [address] [place] [address] 03/19/2024 1:45 PM EST Office Visit Hematology [place] [address] Jean-Pierre Peña MD [facility] DR HEMATOLOGY [place] [address] Vicky Burnham APRN [facility] [place] [address] 03/19/2024 3:30 PM EST Appointment Hematology [place] [address] 04/30/2024 12:15 PM EST Laboratory Appointment Lab at [facility] Hematology Oncology [address] [place] [address] 04/30/2024 1:15 PM EST Office Visit Hematology [place] [address] Jean-Pierre Peña MD [facility] DR HEMATOLOGY [place] [address] Vicky Burnham APRN [facility] [place] [address] 04/30/2024 2:30 PM EST Appointment Hematology [place] [address] 05/22/2024 11:30 AM EST Office Visit [facility] [address] [place] [address] Inderjit Vilchis MD [facility] DR GILBERTO STERLING-DERMAT[facility] [place] [address] documented as of this encounter Procedures Procedure Name Priority Date/Time Associated Diagnosis Comments HEMOGRAM STAT 10/24/2023 7:48 AM EDT Medication management 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, unspecified lymph node region DIFFERENTIAL, AUTOMATED STAT 10/24/2023 7:48 AM EDT Medication management 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, unspecified lymph node region CBC (WITH DIFF) STAT 10/24/2023 7:48 AM EDT Medication management 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, unspecified lymph node region TSH STAT 10/24/2023 7:48 AM EDT Medication management 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, unspecified lymph node region T4, FREE STAT 10/24/2023 7:48 AM EDT Medication management 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, unspecified lymph node region LACTATE DEHYDROGENASE STAT 10/24/2023 7:48 AM EDT Medication management 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, unspecified lymph node region COMPREHENSIVE METABOLIC PANEL STAT 10/24/2023 7:48 AM EDT Medication management 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, unspecified lymph node region documented in this encounter Results * (ABNORMAL) Differential, Automated (10/24/2023 7:48 AM EDT) Neutrophil % 62.4 % [facility] Neutrophil Absolute 4.09 1.70 - 6.10 x10(3)/mc L [facility] Lymph % 21.8 % [facility] Lymphocytes Abs 1.4 0.9 - 3.2 x10(3)/ L [facility] Monocyte % 9.2 % [facility] Monocyte Abs 0.6 0.3 - 0.9 x10(3)/[facility] Eos % 5.2 % [facility] Eosinophils Abs 0.3 0.0 - 0.4 x10(3)/[facility] Basophil % 0.6 % [facility] Baso Absolute 0.0 0.0 - 0.1 x10(3)/[facility] Immature Gran % 0.80 % [facility] Comment: Immature granulocytes(IG's)percentage and absolute count will include metamyelocytes, myelocytes, and promyelocytes. Blood smears from CBCs yielding IG's will be scanned manually for concordance. If this scan disagrees with the automated IG or if promyelocytes are noted, a manual differential will be performed. Immature Gran Absolute 0.05(H) 0.00 - 0.04 x10(3)/[facility] Blood 10/24/2023 7:48 AM EDT 10/24/2023 7:53 AM EDT Narrative Resulting Agency Comment Spec In Lab Jean-Pierre Peña MD HEMATOLOGY ORDERABLE S Performing Organization Address City/State/[facility] Co de Phone Number [facility] [place] [address] * (ABNORMAL) Hemogram (10/24/2023 7:48 AM EDT) White Blood Cell 6.6 4.0 - 9.5 x10(3)/[facility] Red Blood Cell 3.86(L) 4.00 - 5.21 x10(6)/[facility] Hemoglobin 12.0 11.7 - 15.5 g/dL [facility] Hematocrit 35.5(L) 35.7 - 45.8 % [facility] Mean Cell Volume 92.0 82.6 - 94.4 fL [facility] Mean Cell Hemoglobin 31.1 27.1 - 32.0 pg [facility] Mean Cell Hemoglobin Concentration 33.8 31.7 - 35.0 g/dL [facility] Platelet 312 145 - 357 x10(3)/mc L [facility] RDW Standard Deviation 48.1(H) 37.0 - 46.0 fL [facility] RDW coefficient of variation 14.3(H) 11.5 - 14.1 % [facility] Mean Platelet Volume 10.9 7.6 - 12.9 fL [facility] NRBC% auto 0.0 % [facility] NRBC Absolute 0.000 0.000 - 0.000 x10(3)/mc L [facility] Blood 10/24/2023 7:48 AM EDT 10/24/2023 7:53 AM EDT Narrative Resulting Agency Comment Spec In Lab Jean-Pierre Peña MD HEMATOLOGY ORDERABLE S Performing Organization Address City/[facility]/ZIP Co de Phone Number [facility] [place] [address] * Lactate Dehydrogenase (10/24/2023 7:48 AM EDT) Lactate Dehydrogenase 194 110 - 220 unit/L [facility] Blood 10/24/2023 7:48 AM EDT 10/24/2023 7:53 AM EDT Narrative Resulting Agency Comment Spec In Lab Jean-Pierre Peña MD CHEMISTRY ORDERABLES Performing Organization Address City/[facility]/ZIP Co de Phone Number [facility] [place] [address] * T4, free (10/24/2023 7:48 AM EDT) Free T4 1.26 0.93 - 1.70 ng/dL [facility] Comment: Reference Interval (ng/dL): Females: ??First Trimester: 0.97-1.68 ??Second Trimester: 0.77-1.51 ??Third Trimester: 0.77-1.49 Blood 10/24/2023 7:48 AM EDT 10/24/2023 7:53 AM EDT Narrative Resulting Agency Comment Spec In Lab Jean-Pierre Peña MD CHEMISTRY ORDERABLES Performing Organization Address [facility] de Phone Number [facility] [place] [address] * TSH (10/24/2023 7:48 AM EDT) Thyroid Stimulating Hormone 0.89 0.27 - 4.20 mcIU/mL [facility] Comment: Reference Interval (mcIU/mL): Females: ??First Trimester: 0.23-3.88 ??Second Trimester: 0.22-3.90 ??Third Trimester: 0.44-4.66 Blood 10/24/2023 7:48 AM EDT 10/24/2023 7:53 AM EDT Narrative Resulting Agency Comment Spec In Lab Jean-Pierre Peña MD CHEMISTRY ORDERABLES Performing Organization Address [facility] de Phone Number [facility] [address] * (ABNORMAL) Comprehensive metabolic panel (non-fasting) (10/24/2023 7:48 AM EDT) Glucose 99 65 - 199 mg/dL [facility] Comment:Diabetes: >=200 mg/d L plus symptoms Blood Urea Nitrogen 27(H) 8 - 18 mg/dL [facility] Creatinine 0.88 0.70 - 1.20 mg/dL [facility] Sodium 139 135 - 145 mmol/L [facility] Potassium 4.3 3.5 - 5.0 mmol/L [facility] Comment: Please note: ??Patients with WBC >100,000 may have falsely elevated Potassium levels. ??For accurate Potassium quantification in these patients send serum separator tube (gold top) for subsequent determinations. ??Contact the Clinical Chemistry Laboratory if there are any questions. Chloride 105 98 - 107 mmol/L [facility] Carbon Dioxide 22 22 - 31 mmol/L [facility] Anion Gap 12 5 - 15 mmol/L [facility] Calcium 9.5 8.5 - 10.5 mg/dL [facility] Protein, Total 6.8 6.1 - 8.0 g/dL [facility] Albumin 4.2 3.2 - 5.2 g/dL [facility] Aspartate Aminotransferase 25 0 - 30 unit/L [facility] Alanine Aminotransferase 31(H) 0 - 30 unit/L [facility] Alkaline Phosphatase 92 35 - 105 unit/L [facility] Bilirubin, Total 0.6 0.2 - 1.3 mg/dL [facility] Est Glomerular Filtration Rate 76 >=60 mL/min/1. 73 m?? 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
--- OUTSIDE RECORDS SUMMARY | 2024-02-24 01:57 | XMS_ITS | Encounter Summary ---
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, unspecified lymph node region Procedures [id number] pembrolizumab (Keytruda) Jean-Pierre Peña MD [facility] [address] [place] [address] Jean-Pierre Peña MD [facility] DR [place] [address] Referral ID Status Reason Start Date Expiration Date V isits Requested Visits Authorized [id number] Authorized 07/25/2023 07/24/2024 99 99 Encounter Details Date Type Department Care Team (Latest Contact Info) Description 12/26/2023 11:27 AM EDT Hospital Encounter [place]ematology [place] [address] Medication management; Malignant melanoma of scalp; Malignant [...] Recorded In the past 12 months has Diveboard, gas, oil, or water company threatened to [...] as of this encounter Progress Notes * Yari Rogers, RN - 12/26/2023 3:17 PM EDT Patient Name: Keeley Gutierrez Patient Age: 58 y.o. Birthdate: 1965 Admit date: 12/26/2023 Attending Physician: Leah att. providers found TIME TREATMENT STARTED: 1435 TIME TREATMENT ENDED: 1550 Keeley Gutierrez, 58 y.o. female with diagnosis of Melanoma of Scalp is here for chemotherapy infusion of Pembroluzumab. CYCLE: 6 DAY: 1 S: Pt. offers no complaints at this time. O: Chemotherapy orders independently verified for correct drug name, route and dosage per patient'sheight, weight and BSA by Yari Rogers RN and onsite pharmacist REACTIONS (DESCRIPTION, TIME, INTERVENTION AND EFFECTIVENESS) none A: Pt. Tolerated treatment well. Keeley Gutierrez confirms that all questions and issues have beenaddressed. P: Return to clinic as scheduled. Pt. chemo teaching instructions included: During clinic hours (8am-5pm Tuesday-Tuesday): pt. can call [phone] with questions or concerns. After clinic hours (5pm-8am Tuesday-Tuesday and weekends) pt can call [phone] and ask for the head of partner development/oncologist online communications specialist. Keeley verbalized understanding of potential chemotherapy side effects and home care including but not limited to- handwashing to prevent infection, signs and symptoms of low blood counts (fever, fatigue, bleeding), to call with a fever of 100.4 or greater, any significant constipation/diarrhea, importance of nutrition and fluid intake (drinking at least 32-64 ounces of non-caffeinated beverages/day), mouth care. Keeley verbalized understanding of how to take prescription medications given for home use after chemotherapy. documented in this encounter Plan of Treatment Upcoming Encounters Date Type Department Care Team (Late st Contact Info) Description 02/27/2024 8:15 AM EDT TH Visit (TeleHealth) Hematology [place] [address] Jean-Pierre Peña MD [facility] DR [place] [address] Vicky Burnham APRN [facility] [place] [address] 02/28/2024 11:30 AM EDT Infusion Hematology Oncology at [address] [address] 03/19/2024 12:45 PM EST Laboratory Appointment Lab at [facility] [place] [address] [place] [address] 03/19/2024 1:45 PM EST Office Visit Hematology [place] [address] Jean-Pierre Peña MD [facility] [place] [address] Vicky Burnham APRN [facility] [place] [address] 03/19/2024 3:30 PM EST Appointment Hematology [place] [address] 04/30/2024 12:15 PM EST Laboratory Appointment Lab at [facility] [place] On[place] [address] [place] [address] 04/30/2024 1:15 PM EST Office Visit Hematology [place] [address] Jean-Pierre Peña MD [facility] DR [place] [address] Vicky Burnham APRN [facility] [place] [address] 04/30/2024 2:30 PM EST Appointment Hematology [place] [phone] 05/22/2024 11:30 AM EST Office Visit Dermatology at [facility] [address] [place] [address] Inderjit Vilchis MD [facility] DR GILBERTO [place] [address] documented as of this encounter Results * Lactate Dehydrogenase (12/26/2023 11:36 AM EDT) [facility] Lactate Dehydrogenase 171 110 - 220 unit/L 12/26/2023 12:19 PM EDT [facility] Blood VENOUS BLOOD SPECIMEN / Unknown Venipuncture / Unknown 12/26/2023 11:36 AM EDT 12/26/2023 11:36 AM EDT Jean-Pierre Peña MD CHEMISTRY ORDERABLES [facility] [place] [address] * T4, free (12/26/2023 11:36 AM EDT) [facility] Free T4 1.10 0.93 - 1.70 ng/dL 12/26/2023 12:19 PM EDT [facility] Comment: Reference Interval (ng/dL): ?? Females: ? First Trimester: 0.97-1.68 ? Second Trimester: 0.77-1.51 ? Third Trimester: 0.77-1.49 Blood VENOUS BLOOD SPECIMEN / Unknown Venipuncture / Unknown 12/26/2023 11:36 AM EDT 12/26/2023 11:36 AM EDT Jean-Pierre Peña MD CHEMISTRY ORDERABLES Performing Organization Address [facility] [[email or web address]] de Phone Number [facility] [place] [address] * TSH (12/26/2023 11:36 AM EDT) Thyroid Stimulating Hormone 0.85 0.27 - 4.20 mcIU/mL 12/26/2023 12:19 PM EDT [facility] Comment: Reference Interval (mcIU/mL): ?? Females: ? First Trimester: 0.23-3.88 ? Second Trimester: 0.22-3.90 ? Third Trimester: 0.44-4.66 Blood VENOUS BLOOD SPECIMEN / Unknown Venipuncture / Unknown 12/26/2023 11:36 AM EDT 12/26/2023 11:36 AM EDT Jean-Pierre Peña MD CHEMISTRY ORDERABLES Performing Organization Address City/[facility] Co de Phone Number [facility] [place] [address] * Comprehensive metabolic panel (12/26/2023 11:36 AM EDT) Glucose 106 65 - 199 mg/dL 12/26/2023 12:19 PM EDT [facility] Comment:Glucose Concentratio n >=200 mg/dL plus symptoms is consistent with Diabetes Mellitus. Blood Urea Nitrogen 16 8 - 18 mg/dL 12/26/2023 12:19 PM EDT [facility] Creatinine 1.00 0.70 - 1.20 mg/dL 12/26/2023 12:19 PM [facility] Sodium 141 135 - 145 mMol/L 12/26/2023 12:19 PM [facility] Potassium 4.1 3.5 - 5.0 mMol/L 12/26/2023 12:19 PM [facility] Chloride 106 98 - 107 mMol/L 12/26/2023 12:19 PM [facility] Carbon Dioxide 23 22 - 31 mMol/L 12/26/2023 12:19 PM [facility] Anion Gap 12 5 - 15 mMol/L 12/26/2023 12:19 PM [facility] Calcium 9.7 8.5 - 10.5 mg/dL 12/26/2023 12:19 PM [facility] Protein, Total 6.7 6.1 - 8.0 g/dL 12/26/2023 12:19 PM [facility] Albumin 4.0 3.2 - 5.2 g/dL 12/26/2023 12:19 PM [facility] Aspartate Aminotransferase 11 <=30 unit/L 12/26/2023 12:19 PM [facility] Alanine Aminotransferase 14 0 - 30 unit/L 12/26/2023 12:19 PM [facility] Alkaline Phosphatase 73 35 - 105 unit/L 12/26/2023 12:19 PM [facility] Bilirubin, Total 0.4 <=1.3 mg/dL 12/26/2023 12:19 PM [facility] Est Glomerular Filtration Rate - Female 65 mL/min/1. 73 m?? 12/26/2023 12:19 PM [facility] Comment: This patient's estimated [...] Fasting Status No 12/26/2023 12:19 PM EDT [facility] Blood VENOUS BLOOD SPECIMEN / Unknown Venipuncture / Unknown 12/26/2023 11:36 AM EDT 12/26/2023 11:36 AM EDT Jean-Pierre Peña MD CHEMISTRY ORDERABLES [facility] [place] [address] * (ABNORMAL) CBC (with Diff) (12/26/2023 11:36 AM EDT) White Blood Cell 7.67 4.00 - 9.50 x10(3)/mc L 12/26/2023 11:53 AM [facility] Red Blood Cell 4.18 4.00 - 5.21 x10(6)/mc L 12/26/2023 11:53 AM [facility] Hemoglobin 12.6 11.7 - 15.5 g/dL 12/26/2023 11:53 AM [facility] Hematocrit 38.7 35.7 - 45.8 % 12/26/2023 11:53 AM [facility] Mean Cell Volume 92.6 82.6 - 94.4 fL 12/26/2023 11:53 AM [facility] Mean Cell Hemoglobin 30.1 27.1 - 32.0 pg 12/26/2023 11:53 AM [facility] Mean Cell Hemoglobin Concentration 32.6 31.7 - 35.0 g/dL 12/26/2023 11:53 AM [facility] Platelet 294 145 - 357 x10(3)/mc L 12/26/2023 11:53 AM [facility] Mean Platelet Volume 10.6 7.6 - 12.9 fL 12/26/2023 11:53 AM [facility] RDW Standard Deviation 48.5(H) 37.0 - 46.0 fL 12/26/2023 11:53 AM [facility] RDW coefficient of variation 14.4(H) 11.5 - 14.1 % 12/26/2023 11:53 AM [facility] NRBC% auto 0.0 % 12/26/2023 11:53 AM [facility] NRBC Absolute 0.00 0.00 - 0.00 x10(3)/mc L 12/26/2023 11:53 AM [facility] Neutrophil % 78.5 % 12/26/2023 11:53 AM [facility] Neutrophil Absolute (ANC) - Automated 6.02 1.70 - 6.10 x10(3)/mc L 12/26/2023 11:53 AM [facility] Lymph % 10.4 % 12/26/2023 11:53 AM [facility] Lymph Absolute 0.80(L) 0.90 - 3.20 x10(3)/mc L 12/26/2023 11:53 AM [facility] Monocyte % 6.8 % 12/26/2023 11:53 AM [facility] Monocyte Absolute 0.52 0.30 - 0.90 x10(3)/mc L 12/26/2023 11:53 AM [facility] Eos % 3.5 % 12/26/2023 11:53 AM [facility] Eos Absolute 0.27 0.00 - 0.40 x10(3)/mc L 12/26/2023 11:53 AM [facility] Basophil % 0.5 % 12/26/2023 11:53 AM [facility] Baso Absolute 0.04 0.00 - 0.10 x10(3)/mc L 12/26/2023 11:53 AM EDT [facility] Immature Gran % 0.3 % 11:53 AM EDT [facility] Immature Gran Absolute 0.02 0.00 - 0.04 x10(3)/mc L 12/26/2023 11:53 AM EDT [facility] Blood VENOUS BLOOD SPECIMEN / Unknown Venipuncture / Unknown 12/26/2023 11:36 AM EDT 12/26/2023 11:36 AM EDT Jean-Pierre Peña MD HEMATOLOGY ORDERABLE S [facility] [place] [address] documented in this encounter Visit Diagnoses Diagnosis [...] 0.9% 108 mL infusion 200 mg, Intravenous, EVERY 21 DAYS, First dose on Tue12/26/23 at 1430, Until Discontinued, Administer over 30 Minutes, Flush Line with NS after each dose, This agent is restricted to outpatient use. Is this drug being given as an outpatient? Yes New Bag 12/26/2023 3:03 PM EDT 200 mg 216 mL/hr documented in this encounter Care Teams Furniture Associate Relationship Specialty Start Date End Date Taylor Bryant APRN [address] [place] [address] PCP - General 03/31/10 documented as of this encounter
--- OUTSIDE RECORDS SUMMARY | 2024-02-24 01:57 | XMS_ITS | Encounter Summary ---
Author Organization [facility] Address [facility] [place] [address] Care Team Providers Care Sap Business Analyst Name Role Phone Taylor Bryant ZARA Primary Care Provider [phone] [phone] Reason for Referral * Consultation (Routine) - Closed Specialty Diagnoses / Procedures Referred By Crista padron Referred To Contact Wound Care Diagnoses Malignant melanoma of scalp Norm Joy PA [facility] OTOLARY[place] [address] [facility] [place] [address] Referral ID Status Reason Start Date Expiration Date V isits Requested Visits Authorized [id number] Closed Consult, Test & Treat 12/22/2023 12/21/2024 1 1 Reason for Visit * Reason Comments Follow-up Skin graft taking a long time to heal Encounter Details Date Type Department Care Team (Late st Contact Info) Description 12/22/2023 10:00 AM EDT Office [place] [phone] Justa Preciado MD [facility] OTOLARY[place] [address] Malignant melanoma of scalp Social History Tobacco Use Types Packs/Day Years Used Date Smoking Tobacco: Former Smokeless Tobacco: Never Comments:quit at age 35 Alcohol Use Standard Drinks/Week Comments Yes 0 (1 standard drink = 0.6 oz pur e alcohol) social gatherings [facility] Utilities Answer Date Recorded In the [...] No 07/24/2023 Housing Stability Vital Sign Answer Drik e Recorded In the last 12 months, [...] in a jail (including now)? No 07/24/2023 DH IPV Inpatient [...] - Inhaled Oxygen Concentration - - Weight 68.9 kg (151 lb 12.8 oz) 024 10:11 AM EDT Height 162.6 cm (5' 4) 12/22/2023 10:1 1 AM EDT Body Mass Index 26.06 12/22/2023 10:11 AM EDT documented in this encounter Progress Notes * Norm Joy PA - 12/22/2023 10:00 AM EDT [facility] [place] FOLLOW UP NOTE Keeley Gutierrez is [...] of Lymph Nodes Examined: 6 Number of [place] Nodes Examined: 0 Pathologic Stage Classification (pTNM, AJCC 8th Edition) Pathologic Stage Classification: Classification assigned in this report includes information from a prior procedure - yes pT Category: pT4a At her hospital check on 10/06/23, her pain was well managed, she had no bleeding from her surgical sites; though her allevyn was saturated. She returned 10/13/23, to have the scalp sutures removed. Mike was presented to the Melanoma Tumor Board with the following recommendation: She is to see on 10/24/23. Stage 3C T4a N1c melanoma, [...] New issues since last visit: Doing well. No surgical site issues. Is still sore in places. Feels has healed up well. No bleeding or drainage from the scalp site. No new swelling. Sees Dr. Peña again on Tuesday. Still has some soreness at the skin graft site. Was seen at Dermatology clinic, and some silver nitrate was applied--was very painful. PROBLEM LIST Patient Active Problem List Diagnosis [...] Prior to Visit Medication Sig Dispense Refill predniSONE (Deltasone) 10 mg tablet Take 2 tablets by mouth daily for 30 days. Please take 2 tablets once a day for a week; then 1 tablet daily for seven days. 60 tablet 0 ascorbic acid, Vitamin C, (Vitamin C) 500 [...] healthy without lesions. - Pupils are equal, round, and reactive to light. - Extraocular movement is full and intact. - No evidence of nystagmus. EARS Left: - Auricle normal exam. Right: - Auricle normal exam. - Post-auricular incision well-healed. - Right posterior scalp resection site well-healed, without erythema, swelling, or other evidence of infection. MOUTH - Lips and gingiva pink, moist, without lesions. - Edentulous, with dentures--removal deferred. - Tongue and floor of mouth soft without lesions or masses. - Hard palate without lesions. PHARYNX - Soft palate without lesions. - Uvula is midline. - Oropharynx symmetric. NECK - right neck incision well-healed. - No significant lymphadenopathy. - Thyroid gland without masses or asymmetry. - Trachea midline without deviation. NEURO - Cranial nerves II-XII intact and symmetric. - Responds appropriately to questions. LOWER EXTREMITIES - Right thigh STSG site with partial re-epithelialization over ~2/5 of the site; granulation tissueoccupies the remaining 3/5, with some light bleeding noted, and some tenderness to palpation; no evidence of infection. PSYCHE - Normal mood and affect. PROCEDURES REVIEW OF IMAGES/STUDIES ASSESSMENT/RECOMMENDATIONS - Surgical site healing well, but thigh STSG donor site still open. Considering the nearly 3 month time frame, it was felt that having the patient follow up in the Wound Clinic was appropriate. Dr. Preciado also met with and examined the patient, and felt that the Wound Clinic was the next best step. - The patient expressed understanding of these points and agreement with the plan, and all questions that were asked were answered to the patient's satisfaction. Plan: > Return to clinic in 3 months for reassessment. > Patient should call if their symptoms worsen or fail to improve, if new concerning symptoms arise, or if they have any questions or concerns regarding their treatment. I appreciate the opportunity to be involved in Ms. Gutierrez's care. Norm Joy PA-C [place], [place] [address] Office 12/21/2023 ENT ATTENDING STAFF NOTE: I personally reviewed the above note including the documented history. I examined the patient, as well as reviewed personally all additional investigations. As noted, the recipient site on the scalp has fully healed but the donor site on the right thigh has immature granulation tissue. We will manag e with dressing for the time being and arrange for consultation with wound care clinic. I agree with the outlined plan. Justa Preciado MD documented in this encounter Miscellaneous Notes * Addendum Note - Justa Preciado MD - 12/22/2023 10:00 AM EDTAddended by: JUSTA PRECIADO on: 12/28/2023 01:10 PM Modules accepted: Level of Service documented in this encounter Plan of Treatment Upcoming Encounters Date Type Department Care Team (Late st Contact Info) Description 02/27/2024 8:15 AM EDT TH Visit (TeleHealth) [place] [address] Jean-Pierre Peña MD [facility] DR HEMATOLOGY [place] [address] Vicky Burnham APRN [facility] DR [place]ICAL [place] [address] 02/28/2024 11:30 AM EDT Infusion Hematology Oncology at [address] [phone] 03/19/2024 12:45 PM EST Laboratory Appointment Lab at [facility] [place] [address] [place] [address] 03/19/2024 1:45 PM EST Office Visit [place] [address] Jean-Pierre Peña MD [facility] DR HEMATOLOGY [place] [address] Vicky Burnham HUB INVENTORY SPECIALIST [facility] DR [place] [address] 03/19/2024 3:30 PM EST Appointment [place]ology [place] [address] 04/30/2024 12:15 PM EST Laboratory Appointment Lab at [facility] [place] [address] [place] [address] 04/30/2024 1:15 PM EST Office Visit [place]ology [place] [address] Jean-Pierre Peña MD [facility] DR HEMATOLOGY [place] [address] Vicky Burnham APRN [facility] DR [place] [address] 04/30/2024 2:30 PM EST Appointment [place]ology [place] [address] 05/22/2024 11:30 AM EST Office Visit Dermatology at [address] [address] Inderjit Vilchis MD [facility] [address] Scheduled Referrals Name Type Priority Associated Diagnoses Orde r Schedule Referral to Wound Clinic Outpatient Referral Routine Malignant melanoma of scalp Ordered: 12/22/2023 documented as of this encounter Visit Diagnoses Diagnosis Malignant melanoma of scalp Malignant melanoma of skin of scalp and neck documented in this encounter Care Teams Sap Business Analyst Relationship Specialty Start Date End Date Taylor Bryant APRN [address] [place] [address] PCP - General 03/31/10 documented as of this encounter
--- OUTSIDE RECORDS SUMMARY | 2024-02-24 01:57 | XMS_ITS | Encounter Summary ---
Author Organization [facility] Address [facility] [place] [address] Care Team Providers Care Dancer Or Choreographer Name Role Phone Taylor Bryant APRN Primary Care Provider [phone] [phone] Reason for Visit * Reason Comments Follow-up Doing well, no kareem rns at this time. Encounter Details Date Type Department Care Team ([facility] st Contact Info) Description 10/24/2023 9:30 AM EDT Office [place] [phone] Norm Joy PA [facility] [place] [address] Malignant melanoma of scalp Social History Tobacco Use Types Packs/Day Years Used Date Smoking Tobacco: Former Smokeless Tobacco: Never Comments:quit at age 35 Alcohol Use Standard Drinks/Week Comments Yes 0 (1 standard drink = 0.6 oz pur e alcohol) social gatherings [facility] Utilities Answer Date Recorded In the past 12 months has [employer], gas, oil, or water [employer] threatened to shut off services in your [...] Joy PA - 10/24/2023 9:[address] [facility] OTOL[facility]Y FOLLOW UP NOTE Keeley Gutierrez is [...] of Lymph Nodes Examined: 6 Number of [place] Nodes Examined: 0 Pathologic Stage Classification (pTNM, [...] swelling. No redness. No fevers. Saw Dr. Peña, and patient to undergo immunotherapy. PROBLEM LIST [...] in Ms. Gutierrez's care. Norm Joy PA-C [place], [place] [address] Office 10/24/2023 documented in this encounter Plan of Treatment Upcoming Encounters Date Type Department Care Team (Late st Contact Info) Description 02/27/2024 8:15 AM EDT TH Visit (TeleHealth) Hematology [place] [phone] Jean-Pierre Peña MD [facility] [place] [address] Vicky Burnham APRN [facility] [place] [place] [address] 02/28/2024 11:30 AM EDT Infusion Hematology Oncology at [address] [address] 03/19/2024 12:45 PM EST Laboratory Appointment Lab at [facility] Hematology Oncology [address] [place] [address] 03/19/2024 1:45 PM EST Office Visit Hematology [place] [phone] Jean-Pierre Peña MD [facility] [place] [address] Vicky Burnham TRAVEL SPECIALIST [facility] [place] [address] 03/19/2024 3:30 PM EST Appointment Hematology [place] [phone] 04/30/2024 12:15 PM EST Laboratory Appointment Lab at [facility] Hematology Oncology [address] [place] [address] 04/30/2024 1:15 PM EST Office Visit Hematology [place] [address] Jean-Pierre Peña MD [facility] [place] [address] Vicky Burnham APRN [facility] [place] [place] [address] 04/30/2024 2:30 PM EST Appointment Hematology [place] [address] 05/22/2024 11:30 AM EST Office Visit Dermatology at [facility] [address] [place] [phone] Inderjit Vilchis MD [facility] DR [facility] [place] [address] documented as of this encounter Visit Diagnoses Diagnosis Malignant melanoma of scalp Malignant melanoma of skin of scalp and neck documented in this encounter Care Teams Dancer Or Choreographer Relationship Specialty Start Date End Date Taylor Bryant APRN [address] [place] [address] PCP - General 03/31/10 documented as of this encounter
--- OUTSIDE RECORDS SUMMARY | 2024-02-24 01:57 | XMS_ITS | Encounter Summary ---
Author Organization [facility] Address [facility] [place] [address] Care Team Providers Care Application Support Engineer Name Role Phone Taylor Bryant ZARA Primary Care Provider [phone] [phone] Reason for Visit * Reason Comments Follow-up Encounter Details Date Type Department Care Team ([facility] st Contact Info) Description 10/24/2023 8:45 AM EDT Office Visit [place]ematology [place] [address] Jean-Pierre Peña MD [facility] [address] [place] [address] Vicky Burnham APRN [facility] [place] [place] [address] Malignant melanoma of scalp (Primary Dx); Secondary malignancy of soft tissue; Medication management; Immunotherapy Social History Tobacco Use Types Packs/Day Years Used Date Smoking Tobacco: Former Smokeless Tobacco: Never Comments:quit at age 35 Alcohol Use Standard Drinks/Week Comments Yes 0 (1 standard drink = 0.6 oz pur e alcohol) social gatherings [facility] Utilities Answer Date Recorded In the past 12 months has [employer], gas, oil, or water company threatened [...] encounter Progress Notes * Chacha Vicky M, INDUSTRIAL GARAGE SERVICER - 10/24/2023 8:45 AM EDT Images from the original note were not included. [facility] NOTE REFERING PHYSICIAN: DIAGNOSIS: Right [...] 9.72) performed by Castro Preciado MD at [facility] MAIN OR PRO BX/REMV, LYMPH NODE, DEEP CERV Right 09/16/2023 BIOPSY OR EXCISION OF LYMPH NODE(S), OPEN, DEEP CERVICAL NODES (WRVU 6.74) performed by Castro Preciado MD at [facility] MAIN OR PRO RADICAL RESECT OF TUMOR, SOFT TISSUE FACE OR SCALP, 2CM OR GREATER Right 09/16/2023 RADICAL RESECTION TUMOR SCALP; >2 CM (WRVU 15.26) performed by Castro Preciado MD at [facility] MAIN OR PRO SPLIT GRFT, HEAD, FAC, HAND, FEET <100SQCM Right 09/28/2023 SPLIT THICKNESS SKIN SPLIT GRAFT,100SQ CM OR LESS, NECK (WRVU 10.15) performed by Castro Preciado MD at [facility] MAIN OR TUBAL LIGATION MEDS: FLUoxetine, [...] TH Visit (TeleHealth) [place]ology [place] [phone] Jean-Pierre Peña MD [facility] [place] [address] Vicky Burnham APRN [facility] [place] [address] 02/28/2024 11:30 AM EDT Infusion Hematology Oncology at [address] [address] 03/19/2024 12:45 PM EST Laboratory Appointment Lab at [facility] [place] On[place] [address] [place] [address] 03/19/2024 1:45 PM EST Office Visit [place]ematology [place] [phone] Jean-Pierre Peña MD [facility] DR [place] [address] Vicky Burnham INDUSTRIAL GARAGE SERVICER [facility] [place] [address] 03/19/2024 3:30 PM EST Appointment Hematology [place] [phone] 04/30/2024 12:15 PM EST Laboratory Appointment Lab at [facility] [place] On[place] [address] [place] [address] 04/30/2024 1:15 PM EST Office Visit [place]ematology [place] [phone] Jean-Pierre Peña MD [facility] [address] [place] [address] Vicky Burnham APRN [facility] [place] [address] 04/30/2024 2:30 PM EST Appointment Hematology and Oncology at [facility] [place] [address] 05/22/2024 11:30 AM EST Office Visit Dermatology at [facility] [address] [place] [address] Inderjit Vilchis MD [facility] [place] [address] documented as of this encounter Visit Diagnoses Diagnosis Malignant melanoma of scalp- Primary Malignant melanoma of skin of scalp and neck Secondary malignancy of soft tissue Medication management Encounter for long-term (current) use of other medications Immunotherapy Reserved for inherently not codable concepts WITHOUT codable children documented in this encounter Care Teams Application Support Engineer Relationship Specialty Start Date End Date Taylor Bryant APRN [address] [place] [address] PCP - General 03/31/10 documented as of this encounter
--- OUTSIDE RECORDS SUMMARY | 2024-02-24 01:57 | XMS_ITS | Encounter Summary ---
Author Organization [facility] Address 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 No 07/24/2023 IPV Inpatient Questions [...] TH Visit (TeleHealth) Hematology [place] [address] Jean-Pierre Peña MD [facility] [place] [address] Vicky Burnham, CAMERA ASSEMBLER [facility] [place] [place] [address] 02/28/2024 11:30 AM EDT Infusion Hematology Oncology at [address] [address] 03/19/2024 12:45 PM EST Laboratory Appointment Lab at [facility] Hematology Oncology [address] [place] [address] 03/19/2024 1:45 PM EST Office Visit Hematology [place] [address] Jean-Pierre Peña MD [facility] [place] [address] Vicky Burnham APRN [facility] [place] [place] [address] 03/19/2024 3:30 PM EST Appointment Hematology [place] [address] 04/30/2024 12:15 PM EST Laboratory Appointment Lab at [facility] Hematology Oncology [address] [place] [address] 04/30/2024 1:15 PM EST Office Visit Hematology [place] [address] Jean-Pierre Peña MD [facility] [place] [address] Vicky Burnham APRN [facility] [place] [place] [address] 04/30/2024 2:30 PM EST Appointment Hematology [place] [address] 05/22/2024 11:30 AM EST Office Visit Dermatology at [facility] [address] [place] [address] Inderjit Vilchis MD [facility] DR GILBERTO STERLING-DERMATOLOGY [place] [place] [address] documented as of this encounter Procedures Procedure Name Priority Date/Time Associated Diagnosis Comments HEMOGRAM STAT 11/14/2023 7:34 AM EDT Medication management 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, unspecified lymph node region DIFFERENTIAL, AUTOMATED STAT 11/14/2023 7:34 AM EDT Medication management 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, unspecified lymph node region CBC (WITH DIFF) STAT 11/14/2023 7:34 AM EDT Medication management 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, unspecified lymph node region TSH STAT 11/14/2023 7:34 AM EDT Medication management 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, unspecified lymph node region T4, FREE STAT 11/14/2023 7:34 AM EDT Medication management 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, unspecified lymph node region LACTATE DEHYDROGENASE STAT 11/14/2023 7:34 AM EDT Medication management 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, unspecified lymph node region COMPREHENSIVE METABOLIC PANEL STAT 11/14/2023 7:34 AM EDT Medication management 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, unspecified lymph node region documented in this encounter Results * Differential, Automated (11/14/2023 7:34 AM EDT) Neutrophil % 66.6 % [facility] Neutrophil Absolute 4.70 1.70 - 6.10 x10(3)/[facility] Lymph % 18.0 % [facility] Lymphocytes Abs 1.3 0.9 - 3.2 x10(3)/[facility] Monocyte % 9.6 % [facility] Monocyte Abs 0.7 0.3 - 0.9 x10(3)/[facility] Eos % 4.7 % [facility] Eosinophils Abs 0.3 0.0 - 0.4 x10(3)/[facility] Basophil % 0.7 % [facility] Baso Absolute 0.0 0.0 - 0.1 x10(3)/[facility] Immature Gran % 0.40 % [facility] Comment: Immature granulocytes(IG's)percentage and absolute count will include metamyelocytes, myelocytes, and promyelocytes. Blood smears from CBCs yielding IG's will be scanned manually for concordance. If this scan disagrees with the automated IG or if promyelocytes are noted, a manual differential will be performed. Immature Gran Absolute 0.03 0.00 - 0.04 x10(3)/[facility] Blood 11/14/2023 7:34 AM EDT 11/14/2023 7:45 AM EDT Narrative Resulting Agency Comment Spec In Lab Jean-Pierre Peña MD HEMATOLOGY ORDERABLE S [facility] [place] [place] [address] * (ABNORMAL) Hemogram (11/14/2023 7:34 AM EDT) White Blood Cell 7.1 4.0 - 9.5 x10(3)/mc L [facility] Red Blood Cell 3.90(L) 4.00 - 5.21 x10(6)/mc L [facility] Hemoglobin 11.7 11.7 - 15.5 g/dL [facility] Hematocrit 35.8 35.7 - 45.8 % [facility] Mean Cell Volume 91.8 82.6 - 94.4 fL [facility] Mean Cell Hemoglobin 30.0 27.1 - 32.0 pg [facility] Mean Cell Hemoglobin Concentration 32.7 31.7 - 35.0 g/dL [facility] Platelet 295 145 - 357 x10(3)/mc L [facility] RDW Standard Deviation 47.1(H) 37.0 - 46.0 fL [facility] RDW coefficient of variation 14.0 11.5 - 14.1 % [facility] Mean Platelet Volume 10.8 7.6 - 12.9 fL [facility] NRBC% auto 0.0 % [facility] NRBC Absolute 0.000 0.000 - 0.000 x10(3)/mc L [facility] Blood 11/14/2023 7:34 AM EDT 11/14/2023 7:45 AM EDT Narrative Resulting Agency Comment Spec In Lab Jean-Pierre Peña MD HEMATOLOGY ORDERABLE S [facility] [place] [place] [address] * (ABNORMAL) Comprehensive metabolic panel (non-fasting) (11/14/2023 7:34 AM EDT) Glucose 103 65 - 199 mg/dL [facility] Comment:Diabetes: >=200 mg/d L plus symptoms Blood Urea Nitrogen 24(H) 8 - 18 mg/dL [facility] Creatinine 0.92 0.70 - 1.20 mg/dL [facility] Sodium 142 135 - 145 mmol/L [facility] Potassium 4.1 3.5 - 5.0 mmol/L [facility] Comment: Please note: ??Patients with WBC >100,000 may have falsely elevated Potassium levels. ??For accurate Potassium quantification in these patients send serum separator tube (gold top) for subsequent determinations. ??Contact the Clinical Chemistry Laboratory if there are any questions. Chloride 109(H) 98 - 107 mmol/L [facility] Carbon Dioxide 24 22 - 31 mmol/L [facility] Anion Gap 9 5 - 15 mmol/L [facility] Calcium 9.3 8.5 - 10.5 mg/dL [facility] Protein, Total 6.4 6.1 - 8.0 g/dL [facility] Albumin 3.8 3.2 - 5.2 g/dL [facility] Aspartate Aminotransferase 13 0 - 30 unit/L [facility] Alanine Aminotransferase 9 0 - 30 unit/L [facility] Alkaline Phosphatase 75 35 - 105 unit/L [facility] Bilirubin, Total 0.3 0.2 - 1.3 mg/dL [facility] Est Glomerular Filtration Rate 72 >=60 mL/min/1. 73 m?? [facility] [...] MD CHEMISTRY ORDERABLES [facility] [place] [place] [address] * TSH (11/14/2023 7:34 AM EDT) Thyroid Stimulating Hormone 0.97 0.27 - 4.20 mcIU/mL [facility] Comment: Reference Interval (mcIU/mL): Females: ??First Trimester: 0.23-3.88 ??Second Trimester: 0.22-3.90 ??Third Trimester: 0.44-4.66 Blood 11/14/2023 7:34 AM EDT 11/14/2023 7:45 AM EDT Narrative Resulting Agency Comment Spec In Lab Jean-Pierre Peña MD CHEMISTRY ORDERABLES Performing Organization Address City/[facility]/ZIP Co de Phone Number [facility] [place] [address] * T4, free (11/14/2023 7:34 AM EDT) Free T4 1.20 0.93 - 1.70 ng/dL [facility] Comment: Reference Interval (ng/dL): Females: ??First Trimester: 0.97-1.68 ??Second Trimester: 0.77-1.51 ??Third Trimester: 0.77-1.49 Blood 11/14/2023 7:34 AM EDT 11/14/2023 7:45 AM EDT Narrative Resulting Agency Comment Spec In Lab Jean-Pierre Peña MD CHEMISTRY ORDERABLES Performing Organization Address City/[facility]/ZIP Co de Phone Number [facility] [place] [place] [address] * Lactate Dehydrogenase (11/14/2023 7:34 AM EDT) Lactate Dehydrogenase 165 110 - 220 unit/L [facility] Blood 11/14/2023 7:34 AM EDT 11/14/2023 7:45 AM EDT Narrative Resulting Agency Comment Spec In Lab Jean-Pierre Peña MD CHEMISTRY ORDERABLES Performing Organization Address [facility] Co de Phone Number [facility] [place] [address] documented in this encounter Visit Diagnoses Diagnosis Medication management Encounter for long-term (current) use of other medications Malignant melanoma of scalp Malignant melanoma of skin of scalp and neck 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
--- OUTSIDE RECORDS SUMMARY | 2024-02-24 01:58 | XMS_ITS | Encounter Summary ---
Author Organization [facility] Address [facility] [place] [address] Care Team Providers Care Counter Checker Name Role Phone Taylor Bryant APRN Primary Care Provider [phone] [phone] Encounter Details Date Type Department Care Team (Latest Contact Info) Description 10/03/2023 Travel Social History Tobacco Use Types Packs/Day Years Used Date Smoking Tobacco: Former Smokeless Tobacco: Never Comments:quit at age 35 Alcohol Use Standard Drinks/Week Comments Yes 0 (1 standard drink = 0.6 oz pur e alcohol) social gatherings [facility] Utilities Answer Date Recorded In the [...] TH Visit (TeleHealth) Hematology [place] [address] Jean-Pierre Peña MD [facility] DR HEMATOLOGY [place] [address] Vicky Burnham APRN [facility] [place] [address] 02/28/2024 11:30 AM EDT Infusion Hematology Oncology at [address] [address] 03/19/2024 12:45 PM EST Laboratory Appointment Lab at [facility] Hematology Oncology [address] [place] [address] 03/19/2024 1:45 PM EST Office Visit Hematology [place] [address] Jean-Pierre Peña MD [facility] DR HEMATOLOGY [place] [address] Vicky Burnham APRN [facility] [place] [address] 03/19/2024 3:30 PM EST Appointment Hematology [place] [address] 04/30/2024 12:15 PM EST Laboratory Appointment Lab at [facility] Hematology Oncology [address] [place] [address] 04/30/2024 1:15 PM EST Office Visit Hematology [place] [address] Jean-Pierre Peña MD [facility] DR HEMATOLOGY [place] [address] Vicky Burnham PELT GRADER [facility] [place] [address] 04/30/2024 2:30 PM EST Appointment Hematology [place] [address] 05/22/2024 11:30 AM EST Office Visit Dermatology at [address] [phone] Inderjit Vilchis MD [facility] DR GILBERTO ST[place] [address] documented as of this encounter Visit Diagnoses Not on filedocumented in this encounter Care Teams Counter Checker Relationship Specialty Start Date End Date Taylor Bryant APRN [address] [place] [address] PCP - General 03/31/10 documented as of this encounter
--- OUTSIDE RECORDS SUMMARY | 2024-02-24 01:58 | XMS_ITS | Encounter Summary ---
Author Organization [facility] Address [facility] [place] [address] Care Team Providers Care Baling Machine Operator Name Role Phone Taylor Bryant APRN Primary Care Provider +1 [phone] Reason for Visit * Auth/Cert (Routine) Specialty [...] LESS, EYELIDS (WRVU 11.64) Castro Preciado MD [facility] [place] [address] [facility] Referral ID Status Reason Start Date Expiration Date Visits Re quested Visits Authorized [id number] 1 1 Encounter Details Date Type Department Care Team (Late st Contact Info) Description 09/28/2023 11:42 AM EDT Anesthesia Event [place] [address] Jorge Luis Jasso MD [facility] [place] [address] Anesthesia Record Procedure Summary Procedure Name Responsible [...] by Sonu Ibarra RN PIV 09/28/23; 0849; [id number] catheter system; 20 gauge; metacarpal vein (top [...] 1348 by Jessica Rios PIV 09/28/23; 1239; [id number] catheter system; 20 gauge; dorsal arch vein (top of foot), right; Anatomical Landmarks; US Not Used; Divya PARNELL; tolerated well; no longer indicated, removed per policy/procedure, catheter/device intact; 09/28/23; 1621 09/28/23 1239 by Alem Stokes, SCHOOL SPEECH LANGUAGE PATHOLOGIST 09/28/23 1621 by Cassie Philippe RN documented in this encounter Social History Tobacco Use Types Packs/Day Years Used Date Smoking Tobacco: Former Smokeless Tobacco: Never Comments:quit at age 35 Alcohol Use Standard Drinks/Week Comments Yes 0 (1 standard drink = 0.6 oz pur e alcohol) social gatherings [facility] Utilities Answer Date Recorded In the [...] Procedure Summary Date: 09/28/23 Room / Location: [facility] OR [facility] MAIN OR Anesthesia Start: 1142 Anesthesia Stop: 1356 Procedures: ADJ.TISSUE TRANSFER, REARRANGEMENT, 10.1 TO 30 SQ.CM, SCALP (WRVU 9.72) (Right: Face) SPLIT THICKNESS SKIN SPLIT GRAFT,100SQ CM OR LESS, NECK (WRVU 10.15) (Right: Face) Diagnosis: (melanoma scalp) Surgeons: Castro Preciado MD Responsible Provider: Jorge Luis Jasso MD Anesthesia Type: general ASA Status: 2 All Anesthesia Providers: Anesthesiologist: Jorge Luis Jasso MD SCHOOL SPEECH LANGUAGE PATHOLOGIST: Alem Stokes CRNA Student Nurse Gaming Worker: Jessica Rios Vitals Value Taken Time BP 122/65 09/28/23 1430 Temp 36.5 ??C (97.7 ??F) 09/28/23 1351 Pulse 86 09/28/23 1435 Resp 15 09/28/23 1435 SpO2 95 % 05/22/24 1433 Pain Level 4 09/28/23 1430 Vitals shown include unfiled device data. Patient Location: PACU/CAP Level of Consciousness: Awake and Alert Pain [...] 6.74) performed by Castro Preciado MD at [facility] MAIN OR ??? PRO RADICAL RESECT OF TUMOR, SOFT TISSUE FACE OR SCALP, 2CM OR GREATER Right 09/16/2023 RADICAL RESECTION TUMOR SCALP; >2 CM (WRVU 15.26) performed by Castro Preciado MD at [facility] MAIN OR ??? TUBAL LIGATION Social History [...] risks discussed with patient. Plan discussed with SCHOOL SPEECH LANGUAGE PATHOLOGIST. Anesthesia Screening documented in this encounter Plan of Treatment Upcoming Encounters Date Type Department Care Team (Late st Contact Info) Description 02/27/2024 8:15 AM EDT TH Visit (TeleHealth) [place] [address] Jean-Pierre Peña MD [facility] DR HEMATOLOGY [place] [address] Vicky Burnham APRN [facility] [place] [address] 02/28/2024 11:30 AM EDT Infusion Hematology Oncology at [address] [address] 03/19/2024 12:45 PM EST Laboratory Appointment Lab at [facility] Hematology Oncology [address] [place] [address] 03/19/2024 1:45 PM EST Office Visit [place]ematology [place] [address] Jean-Pierre Peña MD [facility] DR HEMATOLOGY [place] [address] Vicky Burnham APRN [facility] [place] [address] 03/19/2024 3:30 PM EST Appointment Hematology [place] [address] 04/30/2024 12:15 PM EST Laboratory Appointment Lab at [facility] Hematology Oncology [address] [place] [address] 04/30/2024 1:15 PM EST Office Visit [place]ematology [place] [address] Jean-Pierre Peña MD [facility] DR HEMATOLOGY [place] [address] Vicky Burnham APRN [facility] [place] [address] 04/30/2024 2:30 PM EST Appointment Hematology [place] [address] 05/22/2024 11:30 AM EST Office Visit Dermatology at [place] [address] [place] [phone] Inderjit Vilchis MD [facility] DR GILBERTO [place] [address] documented as of this encounter Visit Diagnoses [...] mg documented in this encounter Care Teams Baling Machine Operator Relationship Specialty Start Date End Date Taylor Bryant APRN [address] [place] [address] PCP - General 03/31/10 documented as of this encounter
--- OUTSIDE RECORDS SUMMARY | 2024-02-24 01:58 | XMS_ITS | Encounter Summary ---
Author Organization [facility] Address [facility] [place] [address] Care Team Providers Care Heel Sorter Name Role Phone Taylor Bryant APRN Primary Care Provider [phone] Encounter Details Date Type Department Care Team ([facility] st Contact Info) Description 09/28/2023 Notes Only Hematology and Oncology at [facility] [place] [address] Cheryl Daley, RN Social History Tobacco Use Types Packs/Day Years Used Date Smoking Tobacco: Former Smokeless Tobacco: Never Comments:quit at age 35 Alcohol Use Standard Drinks/Week Comments Yes 0 (1 standard drink = 0.6 oz pur e alcohol) social gatherings [facility] Utilities Answer Date Recorded [...] TH Visit (TeleHealth) [place]ematology [place] [address] Jean-Pierre Peña MD [facility] [place] [address] Vicky Burnham APRN [facility] [place] [address] 02/28/2024 11:30 AM EDT Infusion Hematology Oncology at [address] [address] 03/19/2024 12:45 PM EST Laboratory Appointment Lab at [facility] Hematology Oncology [address] [place] [address] 03/19/2024 1:45 PM EST Office Visit Hematology [place] [address] Jean-Pierre Peña MD [facility] [place] [address] Vicky Burnham APRN [facility] [place] [address] 03/19/2024 3:30 PM EST Appointment Hematology [place] [address] 04/30/2024 12:15 PM EST Laboratory Appointment Lab at [facility] Hematology Oncology [address] [place] [address] 04/30/2024 1:15 PM EST Office Visit Hematology [place] [address] Jean-Pierre Peña MD [facility] [place] [address] Vicky Burnham DRAMA DIRECTOR [facility] [place] [address] 04/30/2024 2:30 PM EST Appointment Hematology [place] [address] 05/22/2024 11:30 AM EST Office Visit Dermatology at [address] [address] Inderjit Vilchis MD [facility] [place] [address] documented as of this encounter Visit Diagnoses Not on filedocumented in this encounter Care Teams Heel Sorter Relationship Specialty Start Date End Date Taylor Bryant APRN [address] [place] [address] PCP - General 03/31/10 documented as of this encounter
--- OUTSIDE RECORDS SUMMARY | 2024-02-24 01:58 | XMS_ITS | Encounter Summary ---
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, unspecified lymph node region Procedures [id number] pembrolizumab (Keytruda) Jean-Pierre Peña MD [facility] [place] [address] Jean-Pierre Peña MD [facility] [address] [place] [address] Referral ID Status Reason Start Date Expiration Date V isits Requested Visits Authorized [id number] Authorized 07/25/2023 07/24/2024 99 99 Encounter Details Date Type Department Care Team (Latest Contact Info) Description 10/04/2023 10:28 AM EDT - 10/04/2023 11:59 PM EDT Hospital Encounter Hematology [place] [address] Medication management; Malignant melanoma of scalp; Malignant [...] TH Visit (TeleHealth) Hematology [place] [address] Jean-Pierre Peña MD [facility] [place] [address] Vicky Burnham APRN [facility] [place] [address] 02/28/2024 11:30 AM EDT Infusion Hematology Oncology at [address] [address] 03/19/2024 12:45 PM EST Laboratory Appointment Lab at [facility] [place] [address] [address] 03/19/2024 1:45 PM EST Office Visit Hematology [place] [phone] Jean-Pierre Peña MD [facility] [place] [address] Vicky Burnham APRN [facility] [place] [address] 03/19/2024 3:30 PM EST Appointment Hematology [place] [address] 04/30/2024 12:15 PM EST Laboratory Appointment Lab at [facility] [place] [address] [address] 04/30/2024 1:15 PM EST Office Visit Hematology [place] [address] Jean-Pierre Peña MD [facility] [place] [address] Vicky Burnham APRN [facility] [place] [address] 04/30/2024 2:30 PM EST Appointment Hematology [place] [address] 05/22/2024 11:30 AM EST Office Visit Dermatology at [address] [place] [address] Inderjit Vilchis MD [facility] [place] [address] documented as of this encounter Results * Lactate Dehydrogenase (10/04/2023 10:34 AM EDT) Lactate Dehydrogenase 205 110 - 220 unit/L [facility] Blood 10/04/2023 10:3 4 AM EDT 10/04/2023 10:47 AM EDT Narrative Resulting Agency Comment Spec In Lab Jean-Pierre Peña MD CHEMISTRY ORDERABLES Performing Organization Address [facility]/ZIP Co de Phone Number [facility] [place] [address] * T4, free (10/04/2023 10:34 AM EDT) Free T4 1.30 0.93 - 1.70 ng/dL [facility] Comment: Reference Interval (ng/dL): Females: ??First Trimester: 0.97-1.68 ??Second Trimester: 0.77-1.51 ??Third Trimester: 0.77-1.49 Blood 10/04/2023 10:3 4 AM EDT 10/04/2023 10:47 AM EDT Narrative Resulting Agency Comment Spec In Lab Jean-Pierre Peña MD CHEMISTRY ORDERABLES Performing Organization Address City/[facility]/ZIP Co de Phone Number [facility] [place] [address] * TSH (10/04/2023 10:34 AM EDT) Thyroid Stimulating Hormone 0.52 0.27 - 4.20 mcIU/mL [facility] Comment: Reference Interval (mcIU/mL): Females: ??First Trimester: 0.23-3.88 ??Second Trimester: 0.22-3.90 ??Third Trimester: 0.44-4.66 Blood 10/04/2023 10:3 4 AM EDT 10/04/2023 10:47 AM EDT Narrative Resulting Agency Comment Spec In Lab Jean-Pierre Peña MD CHEMISTRY ORDERABLES [facility] [place] [address] * (ABNORMAL) Comprehensive metabolic panel (non-fasting) (10/04/2023 10:34 AM EDT) Glucose 114 65 - 199 mg/dL [facility] Comment:Diabetes: >=200 mg/d L plus symptoms Blood Urea Nitrogen 23(H) 8 - 18 mg/dL [facility] Creatinine 0.76 0.70 - 1.20 mg/dL [facility] Sodium 140 135 - 145 mmol/L [facility] Potassium 4.2 3.5 - 5.0 mmol/L [facility] Comment: Please note: ??Patients with WBC >100,000 may have falsely elevated Potassium levels. ??For accurate Potassium quantification in these patients send serum separator tube (gold top) for subsequent determinations. ??Contact the Clinical Chemistry Laboratory if there are any questions. Chloride 106 98 - 107 mmol/L [facility] Carbon Dioxide 24 22 - 31 mmol/L [facility] Anion Gap 10 5 - 15 mmol/L [facility] Calcium 9.6 8.5 - 10.5 mg/dL [facility] Protein, Total 7.0 6.1 - 8.0 g/dL [facility] Albumin 4.2 3.2 - 5.2 g/dL [facility] Aspartate Aminotransferase 27 0 - 30 unit/L [facility] Alanine Aminotransferase 46(H) 0 - 30 unit/L [facility] Alkaline Phosphatase 167(H) 35 - 105 unit/L [facility] Bilirubin, Total 0.4 0.2 - 1.3 mg/dL [facility] Est Glomerular Filtration Rate 91 >=60 mL/min/1. 73 m?? [facility] Comment: This patient's estimated GFR [...] In Lab Jean-Pierre Peña MD CHEMISTRY ORDERABLES [facility] [place] [address] documented in this encounter Visit Diagnoses Diagnosis [...] mL/hr documented in this encounter Care Teams Technology Applications Engineer Relationship Specialty Start Date End Date Taylor Bryant APRN [address] [place] [address] PCP - General 03/31/10 documented as of this encounter
--- OUTSIDE RECORDS SUMMARY | 2024-02-24 01:58 | XMS_ITS | Encounter Summary ---
Author Organization [facility] Address [facility] [place] [address] Care Team Providers Care Instructor Of Sociology Name Role Phone Taylor Bryant APRN Primary Care Provider [phone] Encounter Details Date Type Department Care Team ([facility] st Contact Info) Description 09/28/2023 Orders Only Hematology [place] [address] Jean-Pierre Peña MD [facility] DR [place] [address] Social History Tobacco Use Types Packs/Day Years Used Date Smoking Tobacco: Former Smokeless Tobacco: Never Comments:quit at age 35 Alcohol Use Standard Drinks/Week Comments Yes 0 (1 standard drink = 0.6 oz pur e alcohol) social gatherings [facility] [...] a care home (including now)? No 07/24/2023 IPV Inpatient [...] TH Visit (TeleHealth) Hematology [place] [address] Jean-Pierre Peña MD [facility] [address] [place] [address] Vicky Burnham APRN [facility] [place] [address] 02/28/2024 11:30 AM EDT Infusion Hematology Oncology at [address] [address] 03/19/2024 12:45 PM EST Laboratory Appointment Lab at [facility] [place]ematology Oncology [address] [place] [address] 03/19/2024 1:45 PM EST Office Visit Hematology and Oncology at [place] [phone] Jean-Pierre Peña MD [facility] DR HEMATOLOGY [place] [address] Vicky Burnham APRN [facility] [place] [address] 03/19/2024 3:30 PM EST Appointment Hematology and Oncology at [address] 04/30/2024 12:15 PM EST Laboratory Appointment Lab at [facility] Hematology [address] [address] 04/30/2024 1:15 PM EST Office Visit Hematology and Oncology at [place] [phone] Jean-Pierre Peña MD [facility] [address] [place] [address] Vicky Burnham MAJOR GENERAL [facility] [place] [address] 04/30/2024 2:30 PM EST Appointment Hematology [place] [address] 05/22/2024 11:30 AM EST Office Visit Dermatology at [address] [phone] Inderjit Vilchis MD [facility] [address] GILBERTO [place] [address] documented as of this encounter Visit Diagnoses Not on filedocumented in this encounter Care Teams Instructor Of Sociology Relationship Specialty Start Date End Date Taylor Bryant APRN [address] [place] [address] PCP - General 03/31/10 documented as of this encounter
--- OUTSIDE RECORDS SUMMARY | 2024-02-24 01:58 | XMS_ITS | Encounter Summary ---
Author Organization [facility] Address [facility] [place] [address] Care Team Providers Care Alteration Tailor Name Role Phone Taylor Bryant APRN Primary Care Provider [phone] [phone] Encounter Details Date Type Department Care Team (Latest Contact Info) Description 10/06/2023 Travel Social History Tobacco Use Types Packs/Day Years Used Date Smoking Tobacco: Former Smokeless Tobacco: Never Comments:quit at age 35 Alcohol Use Standard Drinks/Week Comments Yes 0 (1 standard drink = 0.6 oz pur e alcohol) social gatherings [facility] Utilities Answer Date Recorded In the [...] TH Visit (TeleHealth) [place]ematology [place] [address] Jean-Pierre Peña MD [facility] [address] HEMATOLOGY [place] [address] Vicky Burnham APRN [facility] [place] [address] 02/28/2024 11:30 AM EDT Infusion Hematology Oncology at [address] [address] 03/19/2024 12:45 PM EST Laboratory Appointment Lab at [facility] Hematology Oncology [address] [place] [address] 03/19/2024 1:45 PM EST Office Visit Hematology [place] [address] Jean-Pierre Peña MD [facility] HEMATOLOGY [place] [address] Vicky Burnham APRN [facility] [place] [address] 03/19/2024 3:30 PM EST Appointment Hematology [place] [address] 04/30/2024 12:15 PM EST Laboratory Appointment Lab at [facility] Hematology Oncology [address] [place] [address] 04/30/2024 1:15 PM EST Office Visit Hematology [place] [address] Jean-Pierre Peña MD [facility] HEMATOLOGY [place] [address] Vicky Burnham TAFFY PULLER [facility] [place] [address] 04/30/2024 2:30 PM EST Appointment Hematology [place] [address] 05/22/2024 11:30 AM EST Office Visit Dermatology at [address] [phone] Inderjit Vilchis MD [facility]ERT[facility] ST[place] [address] documented as of this encounter Visit Diagnoses Not on filedocumented in this encounter Care Teams Alteration Tailor Relationship Specialty Start Date End Date Taylor Bryant APRN [address] [place] [address] PCP - General 03/31/10 documented as of this encounter
--- OUTSIDE RECORDS SUMMARY | 2024-02-24 01:58 | XMS_ITS | Encounter Summary ---
Author Organization [facility] Address [facility] [place] [address] Care Team Providers Care Forms Analysis Manager Name Role Phone Taylor Bryant APRN Primary Care Provider [phone] [phone] Reason for Visit * Auth/Cert (Routine) Specialty Diagnoses / Procedures Referred By Crista padron Referred To Contact Diagnoses Melanoma melanoma Procedures PRO EXC SKIN MALIG 3.1-4CM REMAINDR BODY PRO BX/REMV, LYMPH NODE, DEEP CERV EXC MALIGNANT LESION, 3.1. TO 4.0CM, SCALP (WRVU 3.62) BIOPSY OR EXCISION OF LYMPH NODE(S), OPEN, DEEP CERVICAL NODES (WRVU 6.74) Justa Preciado MD [facility] [place] [address] [facility] Referral ID Status Reason Start Date Expiration Date Visits Re quested Visits Authorized [id number] 1 1 Encounter Details Date Type Department Care Team (Late st Contact Info) Description 09/16/2023 12:45 PM EDT - 09/16/2023 3:30 PM EDT Surgery [place] [address] Justa Preciado MD [facility] DR [place]NBIGG [place], [place] [phone] RADICAL RESECTION TUMOR SCALP; >2 CM (WRVU 15.26) Social History Tobacco Use Types Packs/Day Years Used Date Smoking Tobacco: Former Smokeless Tobacco: Never Comments:quit at age 35 Alcohol Use Standard Drinks/Week Comments Yes 0 (1 standard drink = 0.6 oz pur e alcohol) social gatherings [facility] Utilities Answer Date Recorded In [...] -You can reach the ENT clinic at [phone] for appointment questions. -The ENT triage nurse is available at [phone] -For urgent issues during evenings (5 PM - 7 AM) and weekends the ENT resident budget controller can be reached through the main hospital glue plant operator at [phone] Follow Up: You will need to follow [...] Department Dept Phone 10/04/2023 10:30 AM LABORATORY, [place] Hematology and Oncology at [facility] Arrive at: Appeals Reviewer Veteran Area [phone] 10/04/2023 11:30 AM Jean-Pierre Peña MD Hematology and Oncology at [facility] Arrive at: Appeals Reviewer Veteran Area [phone] 10/04/2023 1:30 PM LEB INFUSION THERAPY Hematology and Oncology at [facility] Arrive at: Appeals Reviewer Veteran Area [phone] 10/06/2023 1:00 PM Norm Joy PA Otolaryngology at [facility] Arrive at: Appeals Reviewer Veteran Area [phone] Please dispose of unused excess opioids before your appointment or bring them with you to the appointment and we will help you dispose of them correctly. 10/24/2023 7:45 AM LABORATORY, TECH Hematology and Oncology at [facility] Arrive at: Appeals Reviewer Veteran Area [phone] 10/24/2023 8:45 AM Jean-Pierre Peña MD Hematology and Oncology at [facility] Arrive at: Appeals Reviewer Veteran Area [phone] 10/24/2023 10:00 AM LEB INFUSION THERAPY Hematology and Oncology at [facility] Arrive at: Appeals Reviewer Veteran Area [phone] 11/14/2023 7:45 AM LUIS, SHAI Hematology and Oncology at [facility] Arrive at: Appeals Reviewer Veteran Area [phone] 11/14/2023 8:45 AM Jean-Pierre Peña MD Hematology and Oncology at [facility] Arrive at: Appeals Reviewer Veteran Area [phone] 11/14/2023 10:00 AM LEB INFUSION THERAPY Hematology and Oncology at [facility] Arrive at: Appeals Reviewer Veteran Area [phone] 12/20/2023 2:15 PM Inderjit Vilchis MD Dermatology at [facility] Arrive at: Appeals Reviewer Veteran [address] [place] [address] documented in this encounter Medications at Time [...] daily. TURMERIC ORAL Take by mouth. 02/11/2024 dabrafenib (Tafinlar) 75 mg capsuleIndications: malignant melanoma [...] V600K mutation 30 tablet 11 08/23/2023 09/28/2023 elderberry fruit 350 mg Capsule Take by [...] Preciado MD - 09/16/2023 12:29 PM EDT [facility] Operative Note Patient Name: Keeley Gutierrez : [id number] MR#: [id number] Case Date: 09/16/2023 Surgeon: Surgeon(s) and Role: * Justa Preciado MD - Primary * Filippo Reilly MD - Resident - Assisting * Jordan Gonzalez PA - Physician Histology Manager Preoperative diagnosis: melanoma Postoperative diagnosis: melanoma [...] TH Visit (TeleHealth) [place] [address] Jean-Pierre Peña MD [facility] DR H[place]AT[place] [address] Vicky Burnham APRN [facility] [place] [address] 02/28/2024 11:30 AM EDT Infusion Hematology Oncology at [address] [address] 03/19/2024 12:45 PM EST Laboratory Appointment Lab at [facility] Hematology Oncology [address] [place] [address] 03/19/2024 1:45 PM EST Office Visit Hematology [place] [address] Jean-Pierre Peña MD [facility] DR HEMATOLOGY [place] [address] Vicky Burnham APRN [facility] [place] [address] 03/19/2024 3:30 PM EST Appointment Hematology [place] [address] 04/30/2024 12:15 PM EST Laboratory Appointment Lab at [facility] Hematology Oncology [address] [place] [address] 04/30/2024 1:15 PM EST Office Visit Hematology [place] [address] Jean-Pierre Peañ MD [facility] DR HEMAT[place]Y [place] [address] Vicky Burnham APRN [facility] [place] [address] 04/30/2024 2:30 PM EST Appointment Hematology [place] [address] 05/22/2024 11:30 AM EST Office Visit Dermatology at [facility] [address] [place] [address] Inderjit Vilchis MD [facility] [address] GILBERTO [place] [address] documented as of this encounter Procedures Procedure [...] PM EDT Bx/Remv, Lymph Node, Deep Cerv ([id number]) 09/16/2023 11:48 AM EDT melanoma Radical/Resect Of Tumor, Soft Tissue Face Or Scalp, 2Cm Or Greater ([id number]) 09/16/2023 11:48 AM EDT melanoma BIOPSY OR EXC OF LYMPH NODES; OPEN, DEEP CERVICAL NODES Routine 09/16/2023 10:47 AM EDT documented in this encounter Results * Specimen to Pathology (09/16/2023 2:09 PM EDT) AP Specimen 09/16/2023 2:09 PM EDT 09/16/2023 2:09 PM EDT Narrative [facility] - 09/16/2023 2:09 PM EDT Specimen requisition ordered. ??Separate Pathology report to follow Justa Preciado MD PATHOLOGY/CYTOLOGY ORDERABLES [facility] [place] [address] * Specimen to Pathology (09/16/2023 1:25 PM EDT) AP Specimen 09/16/2023 1:25 PM EDT 09/16/2023 1:25 PM EDT Narrative [facility] - 09/16/2023 1:25 PM EDT Specimen requisition ordered. ??Separate Pathology report to follow Justa Preciado MD PATHOLOGY/CYTOLOGY ORDERABLES Performing Organization Address [facility] Co de Phone Number [facility] [place] [address] * Specimen to Pathology (09/16/2023 1:25 PM EDT) AP Specimen 09/16/2023 1:25 PM EDT 09/16/2023 1:25 PM EDT Narrative [facility] - 09/16/2023 1:25 PM EDT Specimen requisition ordered. ??Separate Pathology report to follow Justa Preciado MD PATHOLOGY/CYTOLOGY ORDERABLES Performing Organization Address [facility] [place] [address] * Specimen to Pathology (09/16/2023 1:25 PM EDT) AP Specimen 09/16/2023 1:25 PM EDT 09/16/2023 1:25 PM EDT Narrative [facility] - 09/16/2023 1:25 PM EDT Specimen requisition ordered. ??Separate Pathology report to follow Justa Preciado MD PATHOLOGY/CYTOLOGY ORDERABLES Performing Organization Address [facility] [place] [address] * Surgical Pathology Report (09/16/2023 12:50 PM EDT) Final Diagnosis [id number] ? Location: [facility]; [facility]; A The signing pathologist has (i) examined [...] lesion Electronically signed by: ?Wilian ROBLES, PhD, [facility] Verified: ??09/27/2023 10:12 ??Dermatopathologist Performed at: ??-[facility] Dept. of Pathology, [place] [address] Therapist: Johnnie Stephens MD, FCAP, ??CLIA Certificate: [id number] SYNOPTIC Specimen ? Procedure: ??Excision; ??Lymphadenectomy, regional [...] of Lymph Nodes Examined: ??6 ?Number of [place] Nodes Examined: ??0 ? Pathologic Stage Classification (pTNM, AJCC 8th Edition) ?Pathologic Stage Classification: ??Classification assigned in this report ? includes information from a prior procedure - yes ?pT Category: ??pT4a . SYNOPTIC ?pN Category: ??pN1c Best Tumor Blocks for Future Studies ? Tumor Block(s): ??D10,12,14 ? Normal Block(s): ??D3 ? [facility] 2021 Q1 Release DISCUSSION Scanned images of the patient's prior biopsy ([id number]) have been reviewed. There is extensive residual [...] through D23/D24) ??ajw 09/27/2023 10:12 AM EDT [facility] SPECIMEN FROM SKIN / Unknown 09/16/2023 12:50 PM EDT 09/16/2023 12:50 PM EDT LYMPH NODE SPECIMEN / Unknown 09/16/2023 12:50 PM EDT 09/16/2023 12:50 PM EDT LYMPH NODE SPECIMEN / Unknown 09/16/2023 12:50 PM EDT 09/16/2023 12:50 PM EDT SPECIMEN FROM SKIN / Unknown 09/16/2023 12:50 PM EDT 09/16/2023 12:50 PM EDT Justa Preciado MD PATHOLOGY/CYTOLOGY ORDERABLES [facility] [place] [address] documented in this encounter Visit Diagnoses Not [...] MD) documented in this encounter Care Teams Forms Analysis Manager Relationship Specialty Start Date End Date Taylor Bryant, WALLPAPERER [address] [place] [address] PCP - General 03/31/10 documented as of this encounter
--- OUTSIDE RECORDS SUMMARY | 2024-02-24 01:58 | XMS_ITS | Encounter Summary ---
Author Organization [facility] Address [facility] [place] [address] Care Team Providers Care General Accounting Clerk Name Role Phone Taylor Bryant APRN Primary Care Provider [phone] [phone] Encounter Details Date Type Department Care Team ([facility] st Contact Info) Description 09/28/2023 Notes Only Hematology and Oncology at [facility] [place] [address] Brianne German RN Social History Tobacco Use Types Packs/Day Years Used Date Smoking Tobacco: Former Smokeless Tobacco: Never Comments:quit at age 35 Alcohol Use Standard Drinks/Week Comments Yes 0 (1 standard drink = 0.6 oz pur e alcohol) social gatherings [facility] Utilities Answer Date Recorded In the [...] place to sleep or slept in a long-term (including now)? No 07/24/2023 IPV Inpatient Questions [...] TH Visit (TeleHealth) Hematology [place] [address] Jean-Pierre Peña MD [facility] [place] [address] Vicky Burnham APRN [facility] [place] [address] 02/28/2024 11:30 AM EDT Infusion Hematology Oncology at [address] [address] 03/19/2024 12:45 PM EST Laboratory Appointment Lab at [facility] [place] [address] [place] [address] 03/19/2024 1:45 PM EST Office Visit Hematology [place] [address] Jean-Pierre Peña MD [facility] [place] [address] Vicky Burnham APRN [facility] [place] [address] 03/19/2024 3:30 PM EST Appointment Hematology [place] [address] 04/30/2024 12:15 PM EST Laboratory Appointment Lab at [facility] [place]ematology Oncology [address] [place] [address] 04/30/2024 1:15 PM EST Office Visit Hematology [place] [address] Jean-Pierre Peña MD [facility] [place] [address] Vicky Burnham APRN [facility] [address] 04/30/2024 2:30 PM EST Appointment Hematology [place] [address] 05/22/2024 11:30 AM EST Office Visit Dermatology at [facility] [address] [place] [address] Inderjit Vilchis MD [facility] DR GILBERT[place] [address] documented as of this encounter Visit Diagnoses Not on filedocumented in this encounter Care Teams General Accounting Clerk Relationship Specialty Start Date End Date Taylor Bryant, DRAPERY OPERATOR [address] [place] [address] PCP - General 03/31/10 documented as of this encounter
--- OUTSIDE RECORDS SUMMARY | 2024-02-24 01:58 | XMS_ITS | Encounter Summary ---
Author Organization [facility] Address [facility] [address] Care Team Providers Care Knifer Up Name Role Phone Taylor Bryant APRN Primary Care Provider +1 [phone] Encounter Details Date Type Department Care Team (Latest Contact Info) Description 10/13/2023 Travel Social History Tobacco Use Types Packs/Day Years Used Date Smoking Tobacco: Former Smokeless Tobacco: Never Comments:quit at age 35 Alcohol Use Standard Drinks/Week Comments Yes 0 (1 standard drink = 0.6 oz pur e alcohol) social gatherings [facility] Utilities Answer Date Recorded In the [...] TH Visit (TeleHealth) [place] [address] Jean-Pierre Peña MD [facility] DR HEMATOLOGY [place] [address] Vicky Burnham APRN [facility] [place] [address] 02/28/2024 11:30 AM EDT Infusion Hematology Oncology at [address] [address] 03/19/2024 12:45 PM EST Laboratory Appointment Lab at [facility] Hematology Oncology [address] [place] [address] 03/19/2024 1:45 PM EST Office Visit [place]ology [place] [address] Jean-Pierre Peña MD [facility] DR HEMATOLOGY [place] [address] Vicky Burnham APRN [facility] [place] [address] 03/19/2024 3:30 PM EST Appointment Hematology [place] [address] 04/30/2024 12:15 PM EST Laboratory Appointment Lab at [facility] Hematology Oncology [address] [place] [address] 04/30/2024 1:15 PM EST Office Visit [place]ematology [place] [address] Jean-Pierre Peña MD [facility] DR HEMATOLOGY [place] [address] Vicky Burnham TOOLING MANAGER [facility] [place] [address] 04/30/2024 2:30 PM EST Appointment Hematology [place] [address] 05/22/2024 11:30 AM EST Office Visit Dermatology at [address] [phone] Inderjit Vilchis MD [facility] DR GILBERTO [place] [address] documented as of this encounter Visit Diagnoses Not on filedocumented in this encounter Care Teams Knifer Up Relationship Specialty Start Date End Date Taylor Bryant APRN [address] [place] [address] PCP - General 03/31/10 documented as of this encounter
--- OUTSIDE RECORDS SUMMARY | 2024-02-24 01:58 | XMS_ITS | Encounter Summary ---
Author Organization [facility] Address [facility] [place] [address] Care Team Providers Care Counter Supervisor Name Role Phone Taylor Bryant APRN Primary Care Provider [phone] [phone] Encounter Details Date Type Department Care Team ([facility] st Contact Info) Description 10/06/2023 Notes Only Hematology [place] [address] Luma Bernal, RD [facility] [place] [address] Social History Tobacco Use Types Packs/Day Years Used Date Smoking Tobacco: Former Smokeless Tobacco: Never Comments:quit at age 35 Alcohol Use Standard Drinks/Week Comments Yes 0 (1 standard drink = 0.6 oz pur e alcohol) social gatherings [facility] Utilities Answer Date Recorded In the [...] Bernal RD - 10/06/2023 3:53 PM EDT [facility] Food Pantry Note Pt received food from the [facility] pantry today. It has been determined that the patient has food insecurity and/or dietary needs. The following action has been taken: Prescribed visit(s) to onsite Food is Medicine Service documented in this encounter Plan of Treatment Upcoming Encounters Date Type Department Care Team (Late st Contact Info) Description 02/27/2024 8:15 AM EDT TH Visit (TeleHealth) [place] [address] Jean-Pierre Peña MD [facility] [place] [address] Vicky Burnham, ANIMAL HUSBANDRY MANAGER [facility] [place] [address] 02/28/2024 11:30 AM EDT Infusion Hematology Oncology at [address] [address] 03/19/2024 12:45 PM EST Laboratory Appointment Lab at [facility] Hematology Oncology [address] [place] [address] 03/19/2024 1:45 PM EST Office Visit Hematology [place] [address] Jean-Pierre Peña MD [facility] DR [place] [address] Vicky Burnham APRN [facility] [place] [address] 03/19/2024 3:30 PM EST Appointment Hematology [place] [address] 04/30/2024 12:15 PM EST Laboratory Appointment Lab at [facility] Hemat[facility] Oncology [address] [place] [address] 04/30/2024 1:15 PM EST Office Visit Hematology [place] [address] Jean-Pierre Peña MD [facility] DR [place] [address] Vicky Burnham APRN [facility] [place] [address] 04/30/2024 2:30 PM EST Appointment Hematology [place] [address] 05/22/2024 11:30 AM EST Office Visit Dermatology at [facility] [address] [place] [address] Inderjit Vilchis MD [facility] DR GILBERTO [place] [address] documented as of this encounter Visit Diagnoses Not on filedocumented in this encounter Care Teams Counter Supervisor Relationship Specialty Start Date End Date Taylor Bryant APRN [address] [place] [address] PCP - General 03/31/10 documented as of this encounter
--- OUTSIDE RECORDS SUMMARY | 2024-02-24 01:58 | XMS_ITS | Encounter Summary ---
Author Organization [facility] Address [facility] [place] [address] Care Team Providers Care Tower Helper Name Role Phone Taylor Bryant APRN Primary Care Provider [phone] [phone] Encounter Details Date Type Department Care Team (Latest Contact Info) Description 10/11/2023 Multidisciplinary Ca re Committee [place]ematology [place] [address] Jean-Pierre Peña MD [facility] DR [place] [address] Social History Tobacco Use Types Packs/Day Years [...] TH Visit (TeleHealth) [place] [address] Jean-Pierre Peña MD [facility] [place] [address] Vicky Burnham APRN [facility] [place] [address] 02/28/2024 11:30 AM EDT Infusion Hematology Oncology at [address] [address] 03/19/2024 12:45 PM EST Laboratory Appointment Lab at [facility] Hematology Oncology [address] [place] [address] 03/19/2024 1:45 PM EST Office Visit [place]ematology [place] [address] Jean-Pierre Peña MD [facility] DR [place] [address] Vicky Burnham MUTTON PUNCHER [facility] [place] [address] 03/19/2024 3:30 PM EST Appointment Hematology [place] [address] 04/30/2024 12:15 PM EST Laboratory Appointment Lab at [facility] Hematology Oncology [address] [place] [address] 04/30/2024 1:15 PM EST Office Visit Hematology [place] [address] Jean-Pierre Peña MD [facility] DR [place] [address] Vicky Burnham MUTTON PUNCHER [facility] [place] [address] 04/30/2024 2:30 PM EST Appointment Hematology [place] [address] 05/22/2024 11:30 AM EST Office Visit Dermatology at [place] [address] [place] [address] Inderjit Vilchis MD [facility] DR GILBERTO [place] [address] documented as of this encounter Visit Diagnoses Not on filedocumented in this encounter Care Teams Tower Helper Relationship Specialty Start Date End Date Taylor Bryant APRN [address] [place] [address] PCP - General 03/31/10 documented as of this encounter
--- OUTSIDE RECORDS SUMMARY | 2024-02-24 01:58 | XMS_ITS | Encounter Summary ---
Author Organization [facility] [place] [address] Care Team Providers Care Feather Sawyer Name Role Phone Taylor Bryant APRN Primary Care Provider [phone] [phone] Reason for Visit * Auth/Cert (Routine) Specialty [...] LESS, EYELIDS (WRVU 11.64) Justa Preciado MD [facility] [place] [address] [facility] Referral ID Status Reason Start Date Expiration Date Visits Re quested Visits Authorized [id number] 1 1 Encounter Details Date Type Department Care Team (Latest Contact Info) Description 09/28/2023 8:24 AM EDT - 09/28/2023 5:04 PM EDT Hospital En[place] [address] Justa Preciado MD [facility] [place] [address] Discharge Disposition: Home Social History Tobacco Use Types Packs/Day Years Used Date Smoking Tobacco: Former Smokeless Tobacco: Never Comments:quit at age 35 Alcohol Use Standard Drinks/Week Comments Yes 0 (1 standard drink = 0.6 oz pur e alcohol) social gatherings [facility] Utilities Answer Date Recorded In the [...] Program 8a-5pm Tuesday-Tuesday. All other times, call [phone] and ask for the anesthesiologist semiconductor packages sealer. POST ANESTHESIA INSTRUCTIONS Go home, rest, use [...] Provider Department Center 10/04/2023 10:30 AM LABORATORY, [facility] [address] [place] [address] 10/04/2023 11:30 AM Jean-Pierre Peña MD [facility] 10/04/2023 1:00 PM [facility] INF[facility]ION THERAPY [address] 10/06/2023 1:40 PM Justa Preciado MD [facility] 10/24/2023 7:45 AM LABORATORY, [address] 10/24/2023 8:45 AM Jean-Pierre Peña MD [facility] [place] 10/24/2023 10:00 AM [facility] INF[facility] THERAPY [address] 11/14/2023 7:45 AM LABORATORY, [address] 11/14/2023 8:45 AM Jean-Pierre Peña MD [facility] 11/14/2023 10:00 AM [facility] THERAPY [address] 12/20/2023 2:15 PM Inderjit Vilcihs MD [facility] documented in this encounter Medications [...] mouth. 02/11/2024 documented as of this encounter H&P Notes [...] Aviles MD, PGY3 09/28/2023 11:06 AM Pager #[phone] ENT Team Pager: [phone] documented in this encounter Miscellaneous Notes * Op Note - Justa Preciado MD - 09/28/2023 12:22 PM EDT [facility] Operative Note Patient Name: Keeley Gutierrez : [id number] MR#: [id number] Case Date: 09/28/2023 Surgeon: Surgeons and Role: [...] TH Visit (TeleHealth) [place] [address] Jean-Pierre Peña MD [facility] DR [place] [address] Vicky Burnham APRN [facility] [place] [place] [address] 02/28/2024 11:30 AM EDT Infusion Hematology Oncology at [address] [address] 03/19/2024 12:45 PM EST Laboratory Appointment Lab at [facility] Hematology Oncology [address] [place] [address] 03/19/2024 1:45 PM EST Office Visit Hematology [place] [address] Jean-Pierre Peña MD [facility] DR [place] [address] Vicky Burnham APRN [facility] [place] [place] [address] 03/19/2024 3:30 PM EST Appointment Hematology [place] [address] 04/30/2024 12:15 PM EST Laboratory Appointment Lab at [facility] Hematology Oncology [address] [place] [address] 04/30/2024 1:15 PM EST Office Visit [place]ematology [place] [address] Jean-Pierre Peña MD [facility] [place] [address] Vicky Burnham APRN [facility] [place] [address] 04/30/2024 2:30 PM EST Appointment Hematology [place] [address] 05/22/2024 11:30 AM EST Office Visit Dermatology at [facility] [address] [place] [address] Inderjit Vilchis MD [facility] DR GILBERT[place] [address] documented as of this encounter Procedures Procedure Name Priority Date/Time Associated Diagnosis Comments SPLIT THICKNESS SKIN SPLIT GRAFT,100SQ CM OR LESS, NECK Routine 09/28/2023 1:43 PM EDT ADJ.TISSUE TRANSFER, REARRANGEMENT, 10.1 TO 30 SQ.CM, SCALP Routine 09/28/2023 1:42 PM EDT Split Grft, Head, Fac, Hand, Feet <100Sqcm ([id number]) 09/28/2023 11:43 AM EDT melanoma scalp Adj Tiss Transfer Scalp, Extrem 10.1-30 ([id number]) 09/28/2023 11:43 AM EDT melanoma scalp documented [...] medications are indicated. Begin oral analgesics when MANAGER ETL is discontinued., Routine Given 09/28/2023 4:16 PM [...] medications are indicated. Begin oral analgesics when MANAGER ETL is discontinued., Routine 1616 (Given - Provid [...] Routine documented in this encounter Care Teams Feather Sawyer Relationship Specialty Start Date End Date Taylor Bryant APRN [address] [place] [address] PCP - General 03/31/10 documented as of this encounter
--- OUTSIDE RECORDS SUMMARY | 2024-02-24 01:58 | XMS_ITS | Encounter Summary ---
Author Organization [facility] [place] [address] Care Team Providers Care Society Reporter Name Role Phone Taylor Bryant APRN Primary Care Provider [phone] [phone] Reason for Visit * Auth/Cert (Routine) Specialty [...] LESS, EYELIDS (WRVU 11.64) Justa Preciado MD [facility] [place] [address] [facility] Referral ID Status Reason Start Date Expiration Date Visits Re quested Visits Authorized [id number] 1 1 Encounter Details Date Type Department Care Team (Late st Contact Info) Description 09/28/2023 9:45 AM EDT - 09/28/2023 1:30 PM EDT [place] [address] Justa Preciado MD [facility] [place] [address] ADJ.TISSUE TRANSFER, REARRANGEMENT, 10.1 TO 30 SQ.CM, [...] a senior care (including now)? No 07/24/2023 DH IPV Inpatient [...] this encounter Discharge Instructions * Discharge Instructions* Csasie Philippe RN - 09/28/2023 3:57 PM EDT [...] Program 8a-5pm Tuesday-Tuesday. All other times, call [phone] and ask for the anesthesiologist rn infusion. POST ANESTHESIA INSTRUCTIONS Go home, rest, use [...] Provider Department Center 10/04/2023 10:30 AM LABORATORY, [facility] [address] [place] [address] 10/04/2023 11:30 AM Jean-Pierre Peña MD [facility] [place] [facility] 10/04/2023 1:00 PM [facility] INFUSION THERAPY [facility] [address] [place] [address] 10/06/2023 1:40 PM Justa Preciado MD [facility] [place] 10/24/2023 7:45 AM LABORATORY, [facility] [address] [place] [address] 10/24/2023 8:45 AM Jean-Pierre Peña MD [facility] [place] [facility] 10/24/2023 10:00 AM [facility] INFUSION THERAPY [facility] [address] [place] [address] 11/14/2023 7:45 AM LABORATORY, [facility] [address] [place] [address] 11/14/2023 8:45 AM Jean-Pierre Peña MD [facility] [place] [facility] 11/14/2023 10:00 AM [facility] INFUSION THERAPY [facility] [address] [place] [address] 12/20/2023 2:15 PM Inderjit Vilchis MD [facility] documented [...] Aviles MD, PGY3 09/28/2023 11:06 AM Pager #[phone] ENT Team Pager: [phone] documented in this encounter Miscellaneous Notes * Op Note - Justa Preciado MD - 09/28/2023 12:22 PM EDT [facility] Operative Note Patient Name: Keeley Gutierrez : [id number] MR#: [id number] Case Date: 09/28/2023 Surgeon: Surgeons and Role: [...] TH Visit (TeleHealth) [place]ology [place] [address] Jean-Pierre Peña MD [facility] DR HEMATOLOGY [place] [address] Vicky Burnham APRN [facility] [place] [address] 02/28/2024 11:30 AM EDT Infusion Hematology Oncology at [address] [address] 03/19/2024 12:45 PM EST Laboratory Appointment Lab at [facility] [place]ematology Oncology [address] [place] [address] 03/19/2024 1:45 PM EST Office Visit [place]ematology [place] [address] Jean-Pierre Peña MD [facility] DR HEMATOLOGY [place] [address] Vicky Burnham DIRECTOR SPEECH [facility] [place] [address] 03/19/2024 3:30 PM EST Appointment Hematology [place] [address] 04/30/2024 12:15 PM EST Laboratory Appointment Lab at [facility] Hematology Oncology [address] [place] [address] 04/30/2024 1:15 PM EST Office Visit Hematology [place] [address] Jean-Pierre Peña MD [facility] DR HEMATOLOGY [place] [address] Vicky Burnham APRN [facility] [place] [address] 04/30/2024 2:30 PM EST Appointment Hematology and Oncology at [facility] [place] [address] 05/22/2024 11:30 AM EST Office Visit Dermatology at [facility] [address] [place] [address] Inderjit Vilchis MD [facility] [place] [address] documented as of this encounter Procedures Procedure Name Priority Date/Time Associated Diagnosis Comments SPLIT THICKNESS SKIN SPLIT GRAFT,100SQ CM OR LESS, NECK Routine 09/28/2023 1:43 PM EDT ADJ.TISSUE TRANSFER, REARRANGEMENT, 10.1 TO 30 SQ.CM, SCALP Routine 09/28/2023 1:42 PM EDT Split Grft, Head, Fac, Hand, Feet <100Sqcm ([id number]) 09/28/2023 11:43 AM EDT melanoma scalp Adj Tiss Transfer Scalp, Extrem 10.1-30 ([id number]) 09/28/2023 11:43 AM EDT melanoma scalp documented [...] medications are indicated. Begin oral analgesics when FINISH ROLLS OPERATOR is discontinued., Routine Given 09/28/2023 4:16 [...] medications are indicated. Begin oral analgesics when FINISH ROLLS OPERATOR is discontinued., Routine 1616 (Given - [...] Routine documented in this encounter Care Teams Society Reporter Relationship Specialty Start Date End Date Taylor Bryant APRN [address] [place] [address] PCP - General 03/31/10 documented as of this encounter
--- OUTSIDE RECORDS SUMMARY | 2024-02-24 01:58 | XMS_ITS | Encounter Summary ---
Author Organization [facility] Address [facility] [place] [address] Care Team Providers Care Psych Specialist Name Role Phone Taylor Bryant APRN Primary Care Provider [phone] [phone] Encounter Details Date Type Department Care Team ([facility] st Contact Info) Description 10/04/2023 Telephone Otolaryngology at [facility] [place] [phone] Funmi Apple RN Social History Tobacco Use Types Packs/Day Years Used Date Smoking Tobacco: Former Smokeless Tobacco: Never Comments:quit at age 35 Alcohol Use Standard Drinks/Week Comments Yes 0 (1 standard drink = 0.6 oz pur e alcohol) social gatherings [facility] Utilities Answer Date Recorded In the past 12 months has e electric, gas, oil, or water [facility] threatened to shut off services in your [...] TH Visit (TeleHealth) [place] [phone] Jean-Pierre Peña MD [facility] HEMATOLOGY [place] [address] Vicky Burnham APRN [facility] [place] [address] 02/28/2024 11:30 AM EDT Infusion Hematology Oncology at [address] [address] 03/19/2024 12:45 PM EST Laboratory Appointment Lab at [facility] Hematology Oncology [address] [place] [address] 03/19/2024 1:45 PM EST Office Visit [place] [address] Jean-Pierre Peña MD [facility] DR HEMATOLOGY [place] [address] Vicky Burnham CONVEYOR WORKER [facility] [place] [address] 03/19/2024 3:30 PM EST Appointment [place]emat[place] [address] 04/30/2024 12:15 PM EST Laboratory Appointment Lab at [facility] Hematology Oncology [address] [place] [address] 04/30/2024 1:15 PM EST Office Visit [place] [address] Jean-Pierre Peña MD [facility] DR HEMATOLOGY [place] [address] Vicky Burnham APRN [facility] [place] [address] 04/30/2024 2:30 PM EST Appointment [place] [address] 05/22/2024 11:30 AM EST Office Visit Dermatology at [place] [address] [place] [phone] Inderjit Vilchis MD [facility] DR GILBERTO [place] [address] documented as of this encounter Visit Diagnoses Not on filedocumented in this encounter Care Teams Psych Specialist Relationship Specialty Start Date End Date Taylor Bryant APRN [address] [place] [address] PCP - General 03/31/10 documented as of this encounter
--- OUTSIDE RECORDS SUMMARY | 2024-02-24 01:58 | XMS_ITS | Encounter Summary ---
Author Organization [facility] Address [facility] [place] [address] Care Team Providers Care Specialty Plant Supervisor Name Role Phone Taylor Bryant APRN Primary Care Provider [phone] [phone] Reason for Visit * Auth/Cert (Routine) Specialty Diagnoses / Procedures Referred By Crista padron Referred To Contact Diagnoses Melanoma melanoma Procedures PRO EXC SKIN MALIG 3.1-4CM REMAINDR BODY PRO BX/REMV, LYMPH NODE, DEEP CERV EXC MALIGNANT LESION, 3.1. TO 4.0CM, SCALP (WRVU 3.62) BIOPSY OR EXCISION OF LYMPH NODE(S), OPEN, DEEP CERVICAL NODES (WRVU 6.74) Castro Preciado MD [facility] [place] [address] [facility] Referral ID Status Reason Start Date Expiration Date Visits Re quested Visits Authorized [id number] 1 1 Encounter Details Date Type Department Care Team (Latest Contact Info) Description 09/16/2023 8:00 AM EDT - 09/16/2023 9:53 AM EDT Hospital Encounter [place] [address] Castro Preciado MD [facility] [place] [address] Discharge Disposition: Home Social History Tobacco Use Types Packs/Day Years Used Date Smoking Tobacco: Former Smokeless Tobacco: Never Comments:quit at age 35 Alcohol Use Standard Drinks/Week Comments Yes 0 (1 standard drink = 0.6 oz pur e alcohol) social gatherings [facility] Utilities Answer Date Recorded In [...] in a fpc (including now)? No 07/24/2023 DH IPV Inpatient [...] TH Visit (TeleHealth) [place] [address] Jean-Pierre Peña MD [facility] DR [place] [address] Vicky Burnham APRN [facility] [place] [address] 02/28/2024 11:30 AM EDT Infusion Hematology Oncology at [address] [address] 03/19/2024 12:45 PM EST Laboratory Appointment Lab at [facility] [place]ematology Oncology [address] [place] [address] 03/19/2024 1:45 PM EST Office Visit [place] [address] Jean-Pierre Peña MD [facility] DR [place] [address] Vicky Burnham APRN [facility] [place] [address] 03/19/2024 3:30 PM EST Appointment [place]ematology [place] [address] 04/30/2024 12:15 PM EST Laboratory Appointment Lab at [facility] [place] [address] [address] 04/30/2024 1:15 PM EST Office Visit [place] [address] Jean-Pierre Peña MD [facility] DR [place] [address] Vicky Burnham [employer] [facility] [place] [address] 04/30/2024 2:30 PM EST Appointment [place] [address] 05/22/2024 11:30 AM EST Office Visit Dermatology at [address] [address] Inderjit Vilchis MD [facility] DR GILBERTO [place] [address] documented as of this encounter Procedures Procedure Name Priority Date/Time Associated Diagnosis Comments NM LYMPHOSCINTIGRAPHY WITH IMAGING MELANOMA OR SKIN CANCER Routine 09/16/2023 9:54 AM EDT Malignant melanoma of scalp documented in this encounter Results * NM Lymphoscintigraphy w Imaging Melanoma or Skin Cancer (09/16/2023 9:54 AM EDT) WORKSTATION ID [id number] [facility] Anatomical Region Laterality Modality Nuclear Medicine Impressions 09/16/2023 12:37 PM EDT Thomas lymph nodes in the right levels 2 and 5 regions as above. Thank you for letting us participate in the care of this patient. ??If you are a health care provider and have any questions regarding this report, please contact the number below. ??For patients who have questions please contact the health daycare manager that requested your imaging first. ? Narrative [...] right level 5 (axial image 28). IMPRESSION Thomas lymph nodes in the right levels 2 and 5 regions as above. Thank you for letting us participate in the care of this patient. If youare a health care provider and have any questions regarding this report,please contact the number below. For patients who have questions please contactthe health daycare manager that requested your imaging first. Castro Preciado MD [facility] [place] ORDERABLES documented in this encounter Visit Diagnoses Not on filedocumented in this encounter Care Teams Specialty Plant Supervisor Relationship Specialty Start Date End Date Taylor Bryant APRN [address] [place] [address] PCP - General 03/31/10 documented as of this encounter
--- OUTSIDE RECORDS SUMMARY | 2024-02-24 01:58 | XMS_ITS | Encounter Summary ---
Author Organization [facility] Address [facility] [place] [address] Care Team Providers Care Circulating Process Inspector Name Role Phone Taylor Bryant APRN Primary Care Provider [phone] [phone] Encounter Details Date Type Department Care Team ([facility] [place] st Contact Info) Description 10/06/2023 1:40 PM EDT Office [place] [phone] Castro Preciado MD [facility] [place] [address] Malignant melanoma of scalp; Psoriatic arthritis Social History Tobacco Use Types Packs/Day Years Used Date Smoking Tobacco: Former Smokeless Tobacco: Never Comments:quit at age 35 Alcohol Use Standard Drinks/Week Comments Yes 0 (1 standard drink = 0.6 oz pur e alcohol) social gatherings [facility] Utilities Answer Date Recorded In the [...] of Lymph Nodes Examined: 6 Number of [place] Nodes Examined: 0 Pathologic Stage Classification (pTNM, [...] 9.72) performed by Castro Preciado MD at [facility] MAIN OR PRO BX/REMV, LYMPH NODE, DEEP CERV Right 09/16/2023 BIOPSY OR EXCISION OF LYMPH NODE(S), OPEN, DEEP CERVICAL NODES (WRVU 6.74) performed by Castro Preciado MD at [facility] MAIN OR PRO RADICAL RESECT OF TUMOR, SOFT TISSUE FACE OR SCALP, 2CM OR GREATER Right 09/16/2023 RADICAL RESECTION TUMOR SCALP; >2 CM (WRVU 15.26) performed by Castro Preciado MD at [facility] MAIN OR PRO SPLIT GRFT, HEAD, FAC, HAND, FEET <100SQCM Right 09/28/2023 SPLIT THICKNESS SKIN SPLIT GRAFT,100SQ CM OR LESS, NECK (WRVU 10.15) performed by Castro Preciado MD at [facility] MAIN OR TUBAL LIGATION Patient Active Problem [...] TH Visit (TeleHealth) [place]ematology [place] [address] Jean-Pierre Peña MD [facility] DR HEMATOLOGY [place] [address] Vicky Burnham APRN [facility] [place] [address] 02/28/2024 11:30 AM EDT Infusion Hematology Oncology at [address] [address] 03/19/2024 12:45 PM EST Laboratory Appointment Lab at [facility] Hematology Oncology [address] [place] [address] 03/19/2024 1:45 PM EST Office Visit [place]emat[place] [address] Jean-Pierre Peña MD [facility] DR HEMATOLOGY [place] [address] Vicky Burnham APRN [facility] [place] [address] 03/19/2024 3:30 PM EST Appointment Hematology [place] [address] 04/30/2024 12:15 PM EST Laboratory Appointment Lab at [facility] Hematology [address] [address] 04/30/2024 1:15 PM EST Office Visit [place]emat[place] [address] Jean-Pierre Peña MD [facility] DR HEMATOLOGY [place] [address] Vicky Burnham APRN [facility] [place] [address] 04/30/2024 2:30 PM EST Appointment Hematology [place] [address] 05/22/2024 11:30 AM EST Office Visit Dermatology at [facility] [address] [place] [address] Inderjit Vilchis MD [facility] DR GILBERTO [place] [address] documented as of this encounter Visit Diagnoses Diagnosis 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
--- OUTSIDE RECORDS SUMMARY | 2024-02-24 01:58 | XMS_ITS | Encounter Summary ---
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 No 07/24/2023 IPV Inpatient Questions [...] TH Visit (TeleHealth) [place] [address] Jean-Pierre Peña MD [facility] HEMATOLOGY [place] [address] Vicky Burnham, BOTTLE LABEL INSPECTOR [facility] DR [place]ICAL [place] [address] 02/28/2024 11:30 AM EDT Infusion Hematology Oncology at [address] [address] 03/19/2024 12:45 PM EST Laboratory Appointment Lab at [facility] Hematology Oncology [address] [place] [address] 03/19/2024 1:45 PM EST Office Visit [place] [address] Jean-Pierre Peña MD [facility] DR HEMATOLOGY [place] [address] Vicky Burnham APRN [facility] DR MEDICAL [place] [address] 03/19/2024 3:30 PM EST Appointment Hematology [place] [address] 04/30/2024 12:15 PM EST Laboratory Appointment Lab at [facility] Hematology Oncology [address] [place] [address] 04/30/2024 1:15 PM EST Office Visit Hemat[place] [address] Jean-Pierre Peña MD [facility] DR HEMATOLOGY AND [place] [address] Vicky Burnham APRN [facility] DR MEDICAL [place] [address] 04/30/2024 2:30 PM EST Appointment Hematology [place] [address] 05/22/2024 11:30 AM EST Office Visit Dermatology at [facility] [address] [place] [address] Inderjit Vilchis MD [facility] DR GILBERTO STERLING-DERMATOLOGY [place] [address] documented as of this encounter Procedures Procedure Name Priority Date/Time Associated Diagnosis Comments HEMOGRAM STAT 10/04/2023 10:34 AM EDT Medication management 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, unspecified lymph node region DIFFERENTIAL, AUTOMATED STAT 10/04/2023 10:34 AM EDT Medication management 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, unspecified lymph node region CBC (WITH DIFF) STAT 10/04/2023 10:34 AM EDT Medication management 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, unspecified lymph node region TSH STAT 10/04/2023 10:34 AM EDT Medication management 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, unspecified lymph node region T4, FREE STAT 10/04/2023 10:34 AM EDT Medication management 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, unspecified lymph node region LACTATE DEHYDROGENASE STAT 10/04/2023 10:34 AM EDT Medication management 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, unspecified lymph node region COMPREHENSIVE METABOLIC PANEL STAT 10/04/2023 10:34 AM EDT Medication management 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, unspecified lymph node region documented in this encounter Results * (ABNORMAL) Differential, Automated (10/04/2023 10:34 AM EDT) Neutrophil % 68.3 % [facility] Neutrophil Absolute 5.87 1.70 - 6.10 x10(3)/mc L [facility] Lymph % 17.5 % [facility] Lymphocytes Abs 1.5 0.9 - 3.2 x10(3)/[facility] Monocyte % 7.5 % [facility] Monocyte Abs 0.6 0.3 - 0.9 x10(3)/[facility] Eos % 5.6 % [facility] Eosinophils Abs 0.5(H) 0.0 - 0.4 x10(3)/[facility] Basophil % 0.9 % [facility] Baso Absolute 0.1 0.0 - 0.1 x10(3)/[facility] Immature Gran % 0.20 % [facility] Comment: Immature granulocytes(IG's)percentage and absolute count will include metamyelocytes, myelocytes, and promyelocytes. Blood smears from CBCs yielding IG's will be scanned manually for concordance. If this scan disagrees with the automated IG or if promyelocytes are noted, a manual differential will be performed. Immature Gran Absolute 0.02 0.00 - 0.04 x10(3)/[facility] Blood 10/04/2023 10:3 4 AM EDT 10/04/2023 10:47 AM EDT Narrative Resulting Agency Comment Spec In Lab Jean-Pierre Peña MD HEMATOLOGY ORDERABLE S [facility] [address] * (ABNORMAL) Hemogram (10/04/2023 10:34 AM EDT) White Blood Cell 8.6 4.0 - 9.5 x10(3)/[facility] Red Blood Cell 4.02 4.00 - 5.21 x10(6)/[facility] Hemoglobin 12.1 11.7 - 15.5 g/dL [facility] Hematocrit 36.8 35.7 - 45.8 % [facility] Mean Cell Volume 91.5 82.6 - 94.4 fL [facility] Mean Cell Hemoglobin 30.1 27.1 - 32.0 pg [facility] Mean Cell Hemoglobin Concentration 32.9 31.7 - 35.0 g/dL [facility] Platelet 577(H) 145 - 357 x10(3)/mc L [facility] RDW Standard Deviation 47.8(H) 37.0 - 46.0 fL [facility] RDW coefficient of variation 14.2(H) 11.5 - 14.1 % [facility] Mean Platelet Volume 10.0 7.6 - 12.9 [facility] NRBC% auto 0.0 % [facility] NRBC Absolute 0.000 0.000 - 0.000 x10(3)/mc L [facility] Blood 10/04/2023 10:3 4 AM EDT 10/04/2023 10:47 AM EDT Narrative Resulting Agency Comment Spec In Lab Jean-Pierre Peña MD HEMATOLOGY ORDERABLE S Performing Organization Address City/[facility]/ZIP Co de Phone Number [facility] [place] [address] * Lactate Dehydrogenase (10/04/2023 10:34 AM EDT) Pathologist [facility] Lactate Dehydrogenase 205 110 - 220 unit/L [facility] Blood 10/04/2023 10:3 4 AM EDT 10/04/2023 10:47 AM EDT Narrative Resulting Agency Comment Spec In Lab Jean-Pierre Peña MD CHEMISTRY ORDERABLES Performing Organization Address City/[facility]/ZIP Co de Phone Number [facility] [place] [address] * T4, free (10/04/2023 10:34 AM EDT) Free T4 1.30 0.93 - 1.70 ng/dL [facility] Comment: Reference Interval (ng/dL): Females: ??First Trimester: 0.97-1.68 ??Second Trimester: 0.77-1.51 ??Third Trimester: 0.77-1.49 Blood 10/04/2023 10:3 4 AM EDT 10/04/2023 10:47 AM EDT Narrative Resulting Agency Comment Spec In Lab Jean-Pierre Peña MD CHEMISTRY ORDERABLES Performing Organization Address [facility] de Phone Number [facility] [place] [address] * TSH (10/04/2023 10:34 AM EDT) Thyroid Stimulating Hormone 0.52 0.27 - 4.20 mcIU/mL [facility] Comment: Reference Interval (mcIU/mL): Females: ??First Trimester: 0.23-3.88 ??Second Trimester: 0.22-3.90 ??Third Trimester: 0.44-4.66 Blood 10/04/2023 10:3 4 AM EDT 10/04/2023 10:47 AM EDT Narrative Resulting Agency Comment Spec In Lab Jean-Pierre Peña MD CHEMISTRY ORDERABLES Performing Organization Address [facility] de Phone Number [facility] [place] [address] * (ABNORMAL) Comprehensive metabolic panel (non-fasting) (10/04/2023 10:34 AM EDT) Glucose 114 65 - 199 mg/dL [facility] Comment:Diabetes: >=200 mg/d L plus symptoms Blood Urea Nitrogen 23(H) 8 - 18 mg/dL [facility] Creatinine 0.76 0.70 - 1.20 mg/dL [facility] Sodium 140 135 - 145 mmol/L [facility] Potassium 4.2 3.5 - 5.0 mmol/L [facility] Comment: Please note: ??Patients with WBC >100,000 may have falsely elevated Potassium levels. ??For accurate Potassium quantification in these patients send serum separator tube (gold top) for subsequent determinations. ??Contact the Clinical Chemistry Laboratory if there are any questions. Chloride 106 98 - 107 mmol/L [facility] Carbon Dioxide 24 22 - 31 mmol/L [facility] Anion Gap 10 5 - 15 mmol/L [facility] Calcium 9.6 8.5 - 10.5 mg/dL [facility] Protein, Total 7.0 6.1 - 8.0 g/dL [facility] Albumin 4.2 3.2 - 5.2 g/dL [facility] Aspartate Aminotransferase 27 0 - 30 unit/L [facility] Alanine Aminotransferase 46(H) 0 - 30 unit/L [facility] Alkaline Phosphatase 167(H) 35 - 105 unit/L [facility] Bilirubin, Total 0.4 0.2 - 1.3 mg/dL [facility] Est Glomerular Filtration Rate 91 >=60 mL/min/1. 73 m?? 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
--- OUTSIDE RECORDS SUMMARY | 2024-02-24 01:58 | XMS_ITS | Encounter Summary ---
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 Procedures CT Neck Soft Tissue w Contrast (Generic) Jean-Pierre Parra MD [facility] DR HEMATOLOGY [place] [address] [facility] [place] [address] Referral ID Status Reason Start Date Expiration Date V isits Requested Visits Authorized [id number] Closed Specialty Service Requested 10/11/2023 04/11/2025 1 1 * Diagnostic Test (Routine) - Closed Specialty Diagnoses / Procedures Referred By Contjono t Referred To Contact Radiology Diagnoses Malignant melanoma of scalp Procedures CT Chest Abdomen Pelvis w Contrast (Generic) Jean-Pierre Parra MD [facility] HEMATOLOGY [place] [address] [facility] [place] [address] Referral ID Status Reason Start Date Expiration Date V isits Requested Visits Authorized [id number] Closed Specialty Service Requested 10/11/2023 04/11/2025 1 1 Reason for Visit * Reason Comments Follow-up Encounter Details Date Type Department Care Team (Late st Contact Info) Description 10/04/2023 11:30 AM EDT Office Visit Hematology and Oncology at [facility] [place] [address] Jean-Pierre Parra MD [facility] HEMATOLOGY [place] [address] Malignant melanoma of scalp (Primary Dx); Secondary malignancy of soft tissue; Immunotherapy Social History Tobacco Use Types Packs/Day Years Used Date Smoking Tobacco: Former Smokeless Tobacco: Never Comments:quit at age 35 Alcohol Use Standard Drinks/Week Comments Yes 0 (1 standard drink = 0.6 oz pur e alcohol) social gatherings [facility] Utilities Answer Date Recorded In [...] from the original note were not included. [facility] CL[facility] NOTE REFERING PHYSICIAN: DIAGNOSIS: Right [...] 9.72) performed by Castro Preciado MD at [facility] MAIN OR PRO BX/REMV, LYMPH NODE, DEEP CERV Right 09/16/2023 BIOPSY OR EXCISION OF LYMPH NODE(S), OPEN, DEEP CERVICAL NODES (WRVU 6.74) performed by Castro Preciado MD at [facility] MAIN OR PRO RADICAL RESECT OF TUMOR, SOFT TISSUE FACE OR SCALP, 2CM OR GREATER Right 09/16/2023 RADICAL RESECTION TUMOR SCALP; >2 CM (WRVU 15.26) performed by Castro Preciado MD at [facility] MAIN OR PRO SPLIT GRFT, HEAD, FAC, HAND, FEET <100SQCM Right 09/28/2023 SPLIT THICKNESS SKIN SPLIT GRAFT,100SQ CM OR LESS, NECK (WRVU 10.15) performed by Castro Preciado MD at [facility] MAIN OR TUBAL LIGATION MEDS: FLUoxetine, [...] Paulino Staley MD PGY 4 Hem/Onc Fellow [facility] ATTENDING NOTE: The patient is recuperating well [...] TH Visit (TeleHealth) [place] [address] Jean-Pierre Parra MD [facility] HEMATOLOGY [place] [address] Vicky Burnham APRN [facility] [address] MEDICAL [place] [address] 02/28/2024 11:30 AM EDT Infusion Hematology Oncology at [address] [phone] 03/19/2024 12:45 PM EST Laboratory Appointment Lab at [facility] Hematology Oncology [address] [place] [address] 03/19/2024 1:45 PM EST Office Visit [place]ematology [place] [address] Jean-Pierre Parra MD [facility] HEMATOLOGY [place] [address] Vicky Burnham VINEYARD WORKER [facility] [address] [place] [address] 03/19/2024 3:30 PM EST Appointment Hematology [place] [address] 04/30/2024 12:15 PM EST Laboratory Appointment Lab at [facility] Hematology Oncology [address] [place] [address] 04/30/2024 1:15 PM EST Office Visit Hematology [place] [address] Jean-Pierre Parra MD [facility] [address] HEMATOLOGY [place] [address] Vicky Burnham APRN [facility] MEDICAL [place] [address] 04/30/2024 2:30 PM EST Appointment Hematology and Oncology at [facility] [place] [address] 05/22/2024 11:30 AM EST Office Visit Dermatology at [facility] [address] [place] [address] Inderjit Vilchis MD [facility] GILBERTO STERLING-[place] [address] documented as of this encounter Results * CT Neck Soft Tissue w Contrast (Generic) (02/06/2024 11:53 AM EDT) [employer] WORKSTATION ID [id number] RAD Anatomical Region Laterality Modality Neck, Head [...] property caretaker that requested your imaging first. Electronically signed by: Isma Cordova MD, [facility]([phone]), at 02/07/2024 10:09 AM Jean-Pierre Parra MD IMG CT ORDERABLES * CT Chest Abdomen Pelvis w Contrast (Generic) (02/06/2024 11:53 AM EDT) WORKSTATION ID [id number] RAD Anatomical Region Laterality Modality Abdomen, Pelvis [...] caretaker that requested your imaging first. ? Electronically signed by: Ronel Driscoll MD, [facility] ([phone]), at 02/07/2024 7:46 PM Narrative 02/07/2024 7:46 [...] property caretaker that requested your imaging first. 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
--- OUTSIDE RECORDS SUMMARY | 2024-02-24 01:58 | XMS_ITS | Encounter Summary ---
Author Organization [facility] Address [facility] [place] [address] Care Team Providers Care Superintendent Service Name Role Phone Taylor Bryant APRN Primary Care Provider +1 [phone] Encounter Details Date Type Department Care Team (Latest Contact Info) Description 09/16/2023 Travel Social History Tobacco Use Types Packs/Day Years Used Date Smoking Tobacco: Former Smokeless Tobacco: Never Comments:quit at age 35 Alcohol Use Standard Drinks/Week Comments Yes 0 (1 standard drink = 0.6 oz pur e alcohol) social gatherings [facility] Utilities Answer Date Recorded In [...] in a retirement (including now)? No 07/24/2023 [facility] Inpatient Questions Answer Date Recorded Does Anyone [...] Visit (TeleHealth) Hematology [place] [address] Jean-Pierre Peña MD [facility] [address] [place] [address] Vicky Burnham APRN [facility] [place] [place] [address] 02/28/2024 11:30 AM EDT Infusion Hematology Oncology at [address] [address] 03/19/2024 12:45 PM EST Laboratory Appointment Lab at [facility] Hematology Oncology [address] [place] [address] 03/19/2024 1:45 PM EST Office Visit Hematology [place] [address] Jean-Pierre Peña MD [facility] [place] [address] Vicky Burnham APRN [facility] [place] [address] 03/19/2024 3:30 PM EST Appointment Hematology [place] [address] 04/30/2024 12:15 PM EST Laboratory Appointment Lab at [facility] Hematology [address] [address] 04/30/2024 1:15 PM EST Office Visit Hematology [place] [address] Jean-Pierre Peña MD [facility] [place] [address] Vicky Burnham SCREENER AND BLENDER [facility] [place] [address] 04/30/2024 2:30 PM EST Appointment Hematology [place] [address] 05/22/2024 11:30 AM EST Office Visit Dermatology at [address] [phone] Inderjit Vilchis MD [facility] [address] GILBERT[place] [address] documented as of this encounter Visit Diagnoses Not on filedocumented in this encounter Care Teams Superintendent Service Relationship Specialty Start Date End Date Taylor Bryant, SCREENER AND BLENDER [address] [place] [address] PCP - General 03/31/10 documented as of this encounter
--- OUTSIDE RECORDS SUMMARY | 2024-02-24 01:58 | XMS_ITS | Encounter Summary ---
Author Organization [facility] Address [facility] [place] [address] Care Team Providers Care Flat Knitter Name Role Phone Taylor Bryant APRN Primary Care Provider +1 [phone] Encounter Details Date Type Department Care Team ([facility] st Contact Info) Description 10/04/2023 Notes Only Hematology and Oncology at [facility] [place] [address] Roselyn Sánchez Social History Tobacco Use Types Packs/Day Years Used Date Smoking Tobacco: Former Smokeless Tobacco: Never Comments:quit at age 35 Alcohol Use Standard Drinks/Week Comments Yes 0 (1 standard drink = 0.6 oz pur e alcohol) social gatherings [facility] Utilities Answer Date Recorded In the [...] - 10/04/2023 1:39 PM EDT [facility] submitted FRANC carcamo asking for assistance with [employer] autobill $582.70 and a [employer] gift card $150. Roselyn Sánchez documented in this encounter Plan of Treatment Upcoming Encounters Date Type Department Care Team (Late st Contact Info) Description 02/27/2024 8:15 AM EDT TH Visit (TeleHealth) Hematology [place] [address] Jean-Pierre Peña MD [facility] DR [place] [address] Vicky Burnham APRN [facility] [place] [address] 02/28/2024 11:30 AM EDT Infusion Hematology Oncology at [address] [address] 03/19/2024 12:45 PM EST Laboratory Appointment Lab at [facility] Hematology Oncology [address] [place] [address] 03/19/2024 1:45 PM EST Office Visit Hematology [place] [address] Jean-Pierre Peña MD [facility] DR [place] [address] Vicky Burnham APRN [facility] [place] [address] 03/19/2024 3:30 PM EST Appointment Hematology [place] [address] 04/30/2024 12:15 PM EST Laboratory Appointment Lab at [facility] Hematology Oncology [address] [place] [address] 04/30/2024 1:15 PM EST Office Visit Hematology [place] [address] Jean-Pierre Peña MD [facility] DR [place] [address] Vicky Burnham APRN [facility] [place] [address] 04/30/2024 2:30 PM EST Appointment Hematology [place] [address] 05/22/2024 11:30 AM EST Office Visit Dermatology at [address] [address] Inderjit Vilchis MD [facility] [place] [address] documented as of this encounter Visit Diagnoses Not on filedocumented in this encounter Care Teams Flat Knitter Relationship Specialty Start Date End Date Taylor Bryant APRN [address] [place] [address] PCP - General 03/31/10 documented as of this encounter
--- OUTSIDE RECORDS SUMMARY | 2024-02-24 01:58 | XMS_ITS | Encounter Summary ---
Author Organization [facility] Address [facility] [place] [address] Care Team Providers Care Office Cashier Name Role Phone Taylor Bryant APRN Primary Care Provider +1 -[phone] Reason for Visit * Reason Comments Follow-up Things are good. She is hoping that the eulalia and other things off her head. The skin draft area is doing good. Encounter Details Date Type Department Care Team ([facility] Contact Info) Description 10/13/2023 2:30 PM EDT Office [place] [address] Norm Joy PA [facility] [place] [address] Malignant melanoma of scalp Social History Tobacco Use Types Packs/Day Years Used Date Smoking Tobacco: Former Smokeless Tobacco: Never Comments:quit at age 35 Alcohol Use Standard Drinks/Week Comments Yes 0 (1 standard drink = 0.6 oz pur e alcohol) social gatherings [facility] Utilities Answer Date Recorded In the past 12 months has e electric, gas, oil, or water [employer] threatened to shut off services in your [...] Joy PA - 10/13/2023 2:30 PM EDT [facility] OTOLARYNGOLOGY FOLLOW UP NOTE Keeley Gutierrez is [...] of Lymph Nodes Examined: 6 Number of Mccoy Nodes Examined: 0 Pathologic Stage Classification (pTNM, [...] with good take; no evidence of infection. Eulalia in place along the adjacentincision; without notable [...] them. Usinga stapler remover, the neck incision eulalia were removed without difficulty. The patient toleratedthe [...] in Ms. Gutierrez's care. Norm Joy PA-C [place], [place] [address] Office 10/13/2023 documented in this encounter Plan of Treatment Upcoming Encounters Date Type Department Care Team (Late st Contact Info) Description 02/27/2024 8:15 AM EDT TH Visit (TeleHealth) Hematology [place] [address] Jean-Pierre Peña MD [facility] DR HEMATOLOGY [place] [address] Vicky Burnham APRN [facility] [place] [address] 02/28/2024 11:30 AM EDT Infusion Hematology Oncology at [address] [address] 03/19/2024 12:45 PM EST Laboratory Appointment Lab at [facility] Hematology Oncology [address] [place] [address] 03/19/2024 1:45 PM EST Office Visit Hematology [place] [address] Jean-Pierre Peña MD [facility] HEMATOLOGY [place] [address] Vicky Burnham APRN [facility] [place] [address] 03/19/2024 3:30 PM EST Appointment Hematology [place] [address] 04/30/2024 12:15 PM EST Laboratory Appointment Lab at [facility] Hematology Oncology [address] [place] [address] 04/30/2024 1:15 PM EST Office Visit Hematology [place] [address] Jean-Pierre Peña MD [facility] DR HEMATOLOGY [place] [address] Vicky Burnham APRN [facility] [place] [address] 04/30/2024 2:30 PM EST Appointment Hematology [place] [address] 05/22/2024 11:30 AM EST Office Visit Dermatology at [address] [address] Inderjit Vilchis MD [facility] DR GILBERTO STERLING[place] [address] documented as of this encounter Visit Diagnoses Diagnosis Malignant melanoma of scalp Malignant melanoma of skin of scalp and neck documented in this encounter Care Teams Office Cashier Relationship Specialty Start Date End Date Taylor Bryant APRN [address] [place] [address] PCP - General 03/31/10 documented as of this encounter
--- OUTSIDE RECORDS SUMMARY | 2024-02-24 01:58 | XMS_ITS | Encounter Summary ---
Author Organization [facility] [place] [address] Care Team Providers Care Assistant Inventory Manager Name Role Phone Taylor Bryant APRN Primary Care Provider +1 [phone] Encounter Details Date Type Department Care Team ([facility] st Contact Info) Description 09/19/2023 Telephone Hematology [place] [address] Gianna Sanabria RN Social History Tobacco Use Types Packs/Day Years Used Date Smoking Tobacco: Former Smokeless Tobacco: Never Comments:quit at age 35 Alcohol Use Standard Drinks/Week Comments Yes 0 (1 standard drink = 0.6 oz pur e alcohol) social gatherings [facility] Utilities Answer Date Recorded In the [...] TH Visit (TeleHealth) Hematology [place] [address] Jean-Pierre Peña MD [facility] DR [place] [address] Vicky Burnham APRN [facility] [place] [address] 02/28/2024 11:30 AM EDT Infusion Hematology Oncology at [address] [address] 03/19/2024 12:45 PM EST Laboratory Appointment Lab at [facility] Hematology Oncology [address] [place] [address] 03/19/2024 1:45 PM EST Office Visit Hematology [place] [address] Jean-Pierre Peña MD [facility] DR [place] [address] Vicky Burnham APRN [facility] [place] [address] 03/19/2024 3:30 PM EST Appointment Hematology [place] [address] 04/30/2024 12:15 PM EST Laboratory Appointment Lab at [facility] Hematology [address] [address] 04/30/2024 1:15 PM EST Office Visit Hematology [place] [address] Jean-Pierre Peña MD [facility] DR [place] [address] Vicky Burnham APRN [facility] [place] [address] 04/30/2024 2:30 PM EST Appointment Hematology [place] [address] 05/22/2024 11:30 AM EST Office Visit Dermatology at [facility] [address] [place] [address] Inderjit Vilchis MD [facility] DR GILBERT[place] [address] documented as of this encounter Visit Diagnoses Not on filedocumented in this encounter Care Teams Assistant Inventory Manager Relationship Specialty Start Date End Date Taylor Bryant APRN [address] [place] [address] PCP - General 03/31/10 documented as of this encounter
--- OUTSIDE RECORDS SUMMARY | 2024-02-24 01:58 | XMS_ITS | Encounter Summary ---
[place] [address] Care Team Providers Care Pattern Grader Supervisor Name Role Phone Taylor Bryant APRN Primary Care Provider +1 -[phone] Reason for Referral * Diagnostic Test (Routine) - Closed Specialty Diagnoses / Procedures Referred By Crista padron Referred To Contact Radiology Diagnoses Malignant melanoma of scalp Procedures NM Lymphoscintigraphy w Imaging Melanoma or Skin Cancer Castro Preciado MD [facility] [place] [address] [place] [address] Referral ID Status Reason Start Date Expiration Date V isits Requested Visits Authorized [id number] Closed Specialty Service Requested 08/18/2023 02/16/2025 1 [...] CERVICAL NODES (WRVU 6.74) Castro Preciado MD [facility] [place] [address] [facility] Referral ID Status Reason Start Date Expiration Date Visits Re quested Visits Authorized [id number] 1 1 Encounter Details Date Type Department Care Team (Latest Contact Info) Description 09/16/2023 7:59 AM EDT Hospital Encounter Nuclear Medicine at [facility] [place] [address] Castro Preciado MD [facility] [place] [address] Malignant melanoma of scalp Discharge Disposition: Home [...] TH Visit (TeleHealth) Hematology [place] [address] Jean-Pierre Peña MD [facility] DR HEMATOLOGY [place] [address] Vicky Burnham APRN [facility] [place] [address] 02/28/2024 11:30 AM EDT Infusion Hematology Oncology at [address] [address] 03/19/2024 12:45 PM EST Laboratory Appointment Lab at [facility] Hematology Oncology [address] [place] [address] 03/19/2024 1:45 PM EST Office Visit Hematology [place] [address] Jean-Pierre Peña MD [facility] DR HEMATOLOGY [place] [address] Vicky Burnham APRN [facility] [place] [address] 03/19/2024 3:30 PM EST Appointment Hematology [place] [address] 04/30/2024 12:15 PM EST Laboratory Appointment Lab at [facility] Hematology Oncology [address] [place] [address] 04/30/2024 1:15 PM EST Office Visit Hematology [place] [address] Jean-Pierre Peña MD [facility] DR HEMATOLOGY [place] [address] Vicky Burnham APRN [facility] [place] [address] 04/30/2024 2:30 PM EST Appointment Hematology [place] [address] 05/22/2024 11:30 AM EST Office Visit Dermatology at [facility] [address] [place] [address] Inderjit Vilchis MD [facility] DR GILBERTO [place] [address] documented as of this encounter Procedures Procedure Name Priority Date/Time Associated Diagnosis Comments NM LYMPHOSCINTIGRAPHY WITH IMAGING MELANOMA OR SKIN CANCER Routine 09/16/2023 9:54 AM EDT Malignant melanoma of scalp documented in this encounter Results * NM Lymphoscintigraphy w Imaging Melanoma or Skin Cancer (09/16/2023 9:54 AM EDT) WORKSTATION ID [id number] RAD Anatomical Region Laterality Modality Nuclear Medicine Impressions 09/16/2023 12:37 PM EDT [place] lymph nodes in the right levels 2 and 5 regions as above. Thank you for letting us participate in the care of this patient. ??If you are a health care provider and have any questions regarding this report, please contact the number below. ??For patients who have questions please contact the health pharmacy customer care specialist that requested your imaging first. [...] right level 5 (axial image 28). IMPRESSION [place] lymph nodes in the right levels 2 and 5 regions as above. Thank you for letting us participate in the care of this patient. If youare a health care provider and have any questions regarding this report,please contact the number below. For patients who have questions please contactthe health pharmacy customer care specialist that requested your imaging first. Electronically signed by: Esa Sprague MD, [facility]([phone]), at 09/16/2023 12:37 PM Castro Preciado MD [facility] ORDERABLES documented in this encounter Visit [...] mCi documented in this encounter Care Teams Pattern Grader Supervisor Relationship Specialty Start Date End Date Taylor Bryant, ZARA [address] [place] [address] PCP - General 03/31/10 documented as of this encounter
--- OUTSIDE RECORDS SUMMARY | 2024-02-24 01:59 | XMS_ITS | Encounter Summary ---
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 02/11/2024 Ibuprofen 200 mg Capsule Take 600 mg by mouth 2 times daily as needed. documented as of this encounter Plan of Treatment Upcoming Encounters Date Type Department Care Team (Late st Contact Info) Description 02/27/2024 8:15 AM EDT TH Visit (TeleHealth) Hematology [place] [phone] Jean-Pierre Peña MD [facility] [address] HEMATOLOGY [place] [address] Vicky Burnham APRN [facility] [address] [place] [address] 02/28/2024 11:30 AM EDT Infusion Hematology Oncology at [address] [phone] 03/19/2024 12:45 PM EST Laboratory Appointment Lab at [facility] Hematology Oncology [address] [place] [address] 03/19/2024 1:45 PM EST Office Visit Hematology [place] [address] Jean-Pierre Peña MD [facility] [address] HEMATOLOGY [place] [address] Vicky Burnham SUPERVISOR [employer] [facility] [place] [address] 03/19/2024 3:30 PM EST Appointment Hematology [place] [address] 04/30/2024 12:15 PM EST Laboratory Appointment Lab at [facility] Hematology Oncology [address] [place] [address] 04/30/2024 1:15 PM EST Office Visit Hematology [place] [phone] Jean-Pierre Peña MD [facility] [address] HEMATOLOGY [place] [address] Vicky Burnham APRN [facility] [address] [place] [address] 04/30/2024 2:30 PM EST Appointment Hematology and Oncology at [facility] [place] [address] 05/22/2024 11:30 AM EST Office Visit Dermatology at [facility] [address] [place] [phone] Inderjit Vilchis MD [facility] [address] documented as of this encounter Procedures Procedure Name Priority Date/Time Associated Diagnosis Comments HEMOGRAM STAT 09/12/2023 7:45 AM EDT Medication management 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, unspecified lymph node region DIFFERENTIAL, AUTOMATED STAT 09/12/2023 7:45 AM EDT Medication management 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, unspecified lymph node region CBC (WITH DIFF) STAT 09/12/2023 7:45 AM EDT Medication management 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, unspecified lymph node region TSH STAT 09/12/2023 7:45 AM EDT Medication management 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, unspecified lymph node region T4, FREE STAT 09/12/2023 7:45 AM EDT Medication management 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10 x10(3)/[facility] Lymph % 17.2 % [facility] Lymphocytes Abs 1.1 0.9 - 3.2 x10(3)/[facility] Monocyte % 10.5 % [facility] Monocyte Abs 0.7 0.3 - 0.9 x10(3)/[facility] Eos % 4.1 % [facility] Eosinophils Abs 0.3 0.0 - 0.4 x10(3)/[facility] Basophil % 0.6 % [facility] Baso Absolute 0.0 0.0 - 0.1 x10(3)/[facility] Immature Gran % 0.30 % [facility] Comment: Immature granulocytes(IG's)percentage and absolute count will include metamyelocytes, myelocytes, and promyelocytes. Blood smears from CBCs yielding IG's will be scanned manually for concordance. If this scan disagrees with the automated IG or if promyelocytes are noted, a manual differential will be performed. Immature Gran Absolute 0.02 0.00 - 0.04 x10(3)/[facility] Blood 09/12/2023 7:45 AM EDT 09/12/2023 8:01 AM EDT Narrative Resulting Agency Comment Spec In Lab Jean-Pierre Peña MD HEMATOLOGY ORDERABLE S [facility] [place] [address] * (ABNORMAL) Hemogram (09/12/2023 7:45 AM EDT) White Blood Cell 6.6 4.0 - 9.5 x10(3)/[facility] Red Blood Cell 4.10 4.00 - 5.21 x10(6)/mc L [facility] Hemoglobin 12.6 11.7 - 15.5 g/dL [facility] Hematocrit 37.9 35.7 - 45.8 % [facility] Mean Cell Volume 92.4 82.6 - 94.4 fL [facility] Mean Cell Hemoglobin 30.7 27.1 - 32.0 pg [facility] Mean Cell Hemoglobin Concentration 33.2 31.7 - 35.0 g/dL [facility] Platelet 305 145 - 357 x10(3)/mc L [facility] RDW Standard Deviation 46.4(H) 37.0 - 46.0 fL [facility] RDW coefficient of variation 13.5 11.5 - 14.1 % [facility] Mean Platelet Volume 10.7 7.6 - 12.9 fL [facility] NRBC% auto 0.0 % [facility] NRBC Absolute 0.000 0.000 - 0.000 x10(3)/mc L [facility] Blood 09/12/2023 7:45 AM EDT 09/12/2023 8:01 AM EDT Narrative Resulting Agency Comment Spec In Lab Jean-Pierre Peña MD HEMATOLOGY ORDERABLE S [facility] [place] [address] * (ABNORMAL) Comprehensive metabolic panel (non-fasting) (09/12/2023 7:45 AM EDT) Glucose 88 65 - 199 mg/dL [facility] Comment:Diabetes: >=200 mg/d L plus symptoms Blood Urea Nitrogen 22(H) 8 - 18 mg/dL [facility] Creatinine 0.87 0.70 - 1.20 mg/dL [facility] Sodium 143 135 - 145 mmol/L [facility] [...] questions. Chloride 108(H) 98 - 107 mmol/L [facility] Carbon Dioxide 26 22 - 31 mmol/L [facility] Anion Gap 9 5 - 15 mmol/L [facility] Calcium 9.6 8.5 - 10.5 mg/dL [facility] Protein, Total 6.9 6.1 - 8.0 g/dL [facility] Albumin 4.3 3.2 - 5.2 g/dL [facility] Aspartate Aminotransferase 30 0 - 30 unit/L [facility] Alanine Aminotransferase 40(H) 0 - 30 unit/L [facility] Alkaline Phosphatase 94 35 - 105 unit/L [facility] Bilirubin, Total 0.5 0.2 - 1.3 mg/dL [facility] Est Glomerular Filtration Rate 77 >=60 mL/min/1. 73 m?? [facility] [...] In Lab Jean-Pierre Peña MD CHEMISTRY ORDERABLES [facility] [place] [address] * TSH (09/12/2023 7:45 AM EDT) Thyroid Stimulating Hormone 1.42 0.27 - 4.20 mcIU/mL [facility] Comment: Reference Interval (mcIU/mL): Females: ??First Trimester: 0.23-3.88 ??Second Trimester: 0.22-3.90 ??Third Trimester: 0.44-4.66 Blood 09/12/2023 7:45 AM EDT 09/12/2023 8:01 AM EDT Narrative Resulting Agency Comment Spec In Lab Jean-Pierre Peña MD CHEMISTRY ORDERABLES Performing Organization Address City/[facility]/ZIP Co de Phone Number [facility] [place] [address] * T4, free (09/12/2023 7:45 AM EDT) Free T4 1.32 0.93 - 1.70 ng/dL [facility] Comment: Reference Interval (ng/dL): Females: ??First Trimester: 0.97-1.68 ??Second Trimester: 0.77-1.51 ??Third Trimester: 0.77-1.49 Blood 09/12/2023 7:45 AM EDT 09/12/2023 8:01 AM EDT Narrative Resulting Agency Comment Spec In Lab Jean-Pierre Peña MD CHEMISTRY ORDERABLES Performing Organization Address City/[facility]/ZIP Co de Phone Number [facility] [place] [address] * Lactate Dehydrogenase (09/12/2023 7:45 AM EDT) Lactate Dehydrogenase 187 110 - 220 unit/L [facility] Blood 09/12/2023 7:45 AM EDT 09/12/2023 8:01 AM EDT Narrative Resulting Agency Comment Spec In Lab Jean-Pierre Peña MD CHEMISTRY ORDERABLES [facility] [place] [address] documented in this encounter Visit Diagnoses Diagnosis Medication management Encounter for long-term (current) use of other medications 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
--- OUTSIDE RECORDS SUMMARY | 2024-02-24 01:59 | XMS_ITS | Encounter Summary ---
Author Organization [facility] Address [facility] [place] [address] Care Team Providers Care Manager Non Profit Name Role Phone Taylor Bryant APRN Primary Care Provider [phone] Reason for Visit * Reason Comments Prior Authorization Анна Encounter Details Date Type Department Care Team ([facility] st Contact Info) Description 08/23/2023 Specialty Pharmacy Pharmacy at [facility] [place] [phone] Cristiano Ruvalcaba, DEALER SALES MANAGER Social History Tobacco Use Types Packs/Day Years Used Date Smoking Tobacco: Former Smokeless Tobacco: Never Comments:quit at age 35 Alcohol Use Standard Drinks/Week Comments Yes 0 (1 standard drink = 0.6 oz pur e alcohol) social gatherings [facility] Utilities Answer Date Recorded In the past [...] Keeley Gutierrez Patient : 1965 Patient Address: [address] [place] [address] (home) Medication Name: TAFINLAR 75 MG CAPSULE Medication ID: Patient [place] [facility] Patient Location Comment: Medication Strength Frequency Requested: Take two capsules by mouth twice a day Qty/Day Supply: 120/30 New Start: New to Therapy Diagnosis & ICD-10 Code: Malignant melanoma Subscriber Insurance: Subscriber Insurance Comment: Insurance ID: Phone: Fax: Physician: SHARATH PEÑA Physician Comment : PA Status: PA Not Needed Insurance mandated Pharmacy: Fillable at [facility] Specialty Pharmacy: Yes Insurance requirements/notes: None Copay: 03.28 Copay assistance: None Copay assistance comment: Pharmacy staff will be reaching out to the patient to inform them of their medication[facility]. If applicable, a pharmacist will speak with the patient to offer our specialty pharmacy services and to arrange delivery of their medication. Cristiano Ruvalcaba 08/23/23 11:36 AM documented in this encounter Plan of Treatment Upcoming Encounters Date Type Department Care Team (Late st Contact Info) Description 02/27/2024 8:15 AM EDT TH Visit (TeleHealth) [place] [address] Sharath Peña MD [facility] [address] H[place]AT[place]Y [place] [address] Vicky Burnham APRN [facility] [place] [address] 02/28/2024 11:30 AM EDT Infusion Hematology Oncology at [address] [phone] 03/19/2024 12:45 PM EST Laboratory Appointment Lab at [facility] [place] [place] [address] [place] [address] 03/19/2024 1:45 PM EST Office Visit [place]ology [place] [address] Sharath Peña MD [facility] [address] [place] [address] Vicky Burnham APRN [facility] [place] [address] 03/19/2024 3:30 PM EST Appointment [place]ematology [place] [address] 04/30/2024 12:15 PM EST Laboratory Appointment Lab at [facility] [place] [address] [place] [address] 04/30/2024 1:15 PM EST Office Visit [place] [address] Sharath Peña MD [facility] [address] [place] [address] Vicky Burnham APRN [facility] [place] [address] 04/30/2024 2:30 PM EST Appointment [place]ology [place] [address] 05/22/2024 11:30 AM EST Office Visit Dermatology at [address] [phone] Inderjit Vilchis MD [facility] [place] [address] documented as of this encounter Visit Diagnoses Not on filedocumented in this encounter Care Teams Manager Non Profit Relationship Specialty Start Date End Date Taylor Bryant APRN [address] [place] [address] PCP - General 03/31/10 documented as of this encounter
--- OUTSIDE RECORDS SUMMARY | 2024-02-24 01:59 | XMS_ITS | Encounter Summary ---
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, unspecified lymph node region Discharge Disposition: Home Social History Tobacco Use Types Packs/Day Years Used Date Smoking Tobacco: Former Smokeless Tobacco: Never Comments:quit at age 35 Alcohol Use Standard Drinks/Week Comments Yes 0 (1 standard drink = 0.6 oz pur e alcohol) social gatherings [facility] Utilities Answer Date Recorded In [...] Sig Dispensed Refills Start Date End Date cholecalciferol, Vitamin D3, 50 mcg (2,000 unit) [...] Visit (TeleHealth) Hematology [place] [phone] Jean-Pierre Peña MD [facility] DR [place] [address] Vicky Burnham APRN [facility] [place] [address] 02/28/2024 11:30 AM EDT Infusion Hematology Oncology at [address] [phone] 03/19/2024 12:45 PM EST Laboratory Appointment Lab at [facility] Hematology Oncology [address] [place] [address] 03/19/2024 1:45 PM EST Office Visit Hematology [place] [phone] Jean-Pierre Peña MD [facility] DR [place] [address] Vicky Burnham APRN [facility] [place] [address] 03/19/2024 3:30 PM EST Appointment Hematology [place] [phone] 04/30/2024 12:15 PM EST Laboratory Appointment Lab at [facility] Hematology Oncology [address] [place] [address] 04/30/2024 1:15 PM EST Office Visit Hematology [place] [phone] Jean-Pierre Peña MD [facility] DR [place] [address] Vicky Burnham APRN [facility] [place] [address] 04/30/2024 2:30 PM EST Appointment Hematology and Oncology at [facility] [place] [address] 05/22/2024 11:30 AM EST Office Visit Dermatology at 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, unspecified lymph node region CBC (WITH DIFF) STAT 08/23/2023 8:33 AM EDT Medication management 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, unspecified lymph node region TSH STAT 08/23/2023 8:33 AM EDT Medication management 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, unspecified lymph node region T4, FREE STAT 08/23/2023 8:33 AM EDT Medication management 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, unspecified lymph node region LACTATE DEHYDROGENASE STAT 08/23/2023 8:33 AM EDT Medication management 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, unspecified lymph node region COMPREHENSIVE METABOLIC PANEL STAT 08/23/2023 8:33 AM EDT Medication management 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, unspecified lymph node region documented in this encounter Results * Differential, Automated (08/23/2023 8:33 AM EDT) Neutrophil % 54.5 % [facility] Neutrophil Absolute 3.21 1.70 - 6.10 x10(3)/[facility] Lymph % 32.0 % [facility] Lymphocytes Abs 1.9 0.9 - 3.2 x10(3)/[facility] Monocyte % 9.2 % [facility] Monocyte Abs 0.5 0.3 - 0.9 x10(3)/[facility] Eos % 3.1 % [facility] Eosinophils Abs 0.2 0.0 - 0.4 x10(3)/[facility] Basophil % 0.9 % [facility] Baso Absolute 0.0 0.0 - 0.1 x10(3)/[facility] Immature Gran % 0.30 % [facility] Comment: Immature granulocytes(IG's)percentage and absolute count will include metamyelocytes, myelocytes, and promyelocytes. Blood smears from CBCs yielding IG's will be scanned manually for concordance. If this scan disagrees with the automated IG or if promyelocytes are noted, a manual differential will be performed. Immature Gran Absolute 0.02 0.00 - 0.04 x10(3)/[facility] Blood 08/23/2023 8:33 AM EDT 08/23/2023 8:59 AM EDT Narrative Resulting Agency Comment Spec In Lab Jean-Pierre Peña MD HEMATOLOGY ORDERABLE S [facility] [place] [address] * (ABNORMAL) Hemogram (08/23/2023 8:33 AM EDT) White Blood Cell 5.9 4.0 - 9.5 x10(3)/[facility] Red Blood Cell 4.32 4.00 - 5.21 x10(6)/[facility] Hemoglobin 13.1 11.7 - 15.5 g/dL [facility] Hematocrit 40.2 35.7 - 45.8 % [facility] Mean Cell Volume 93.1 82.6 - 94.4 fL [facility] Mean Cell Hemoglobin 30.3 27.1 - 32.0 pg [facility] Mean Cell Hemoglobin Concentration 32.6 31.7 - 35.0 g/dL [facility] Platelet 316 145 - 357 x10(3)/mc L [facility] RDW Standard Deviation 47.7(H) 37.0 - 46.0 [facility] RDW coefficient of variation 13.9 11.5 - 14.1 % [facility] Mean Platelet Volume 11.4 7.6 - 12.9 [facility] NRBC% auto 0.0 % [facility] NRBC Absolute 0.000 0.000 - 0.000 x10(3)/mc L [facility] Blood 08/23/2023 8:33 AM EDT 08/23/2023 8:59 AM EDT Narrative Resulting Agency Comment Spec In Lab Jean-Pierre Peña MD HEMATOLOGY ORDERABLE S Performing Organization Address [facility] Co de Phone Number [facility] [place] [address] * Lactate Dehydrogenase (08/23/2023 8:33 AM EDT) Lactate Dehydrogenase 165 110 - 220 unit/L [facility] Blood 08/23/2023 8:33 AM EDT 08/23/2023 8:59 AM EDT Narrative Resulting Agency Comment Spec In Lab Jean-Pierre Peña MD CHEMISTRY ORDERABLES Performing Organization Address [facility] Co de Phone Number [facility] [place] [address] * T4, free (08/23/2023 8:33 AM EDT) Free T4 1.31 0.93 - 1.70 ng/dL [facility] Comment: Reference Interval (ng/dL): Females: ??First Trimester: 0.97-1.68 ??Second Trimester: 0.77-1.51 ??Third Trimester: 0.77-1.49 Blood 08/23/2023 8:33 AM EDT 08/23/2023 8:59 AM EDT Narrative Resulting Agency Comment Spec In Lab Jean-Pierre Peña MD CHEMISTRY ORDERABLES Performing Organization Address [facility] Co de Phone Number [facility] [place] [address] * TSH (08/23/2023 8:33 AM EDT) Thyroid Stimulating Hormone 0.80 0.27 - 4.20 mcIU/mL [facility] Comment: Reference Interval (mcIU/mL): Females: ??First Trimester: 0.23-3.88 ??Second Trimester: 0.22-3.90 ??Third Trimester: 0.44-4.66 Blood 08/23/2023 8:33 AM EDT 08/23/2023 8:59 AM EDT Narrative Resulting Agency Comment Spec In Lab Jean-Pierre Peña MD CHEMISTRY ORDERABLES Performing Organization Address [facility] Co de Phone Number [facility] [place] [address] * (ABNORMAL) Comprehensive metabolic panel (non-fasting) (08/23/2023 8:33 AM EDT) Glucose 95 65 - 199 mg/dL [facility] Comment:Diabetes: >=200 mg/d L plus symptoms Blood Urea Nitrogen 20(H) 8 - 18 mg/dL [facility] Creatinine 0.95 0.70 - 1.20 mg/dL [facility] Sodium 141 135 - 145 mmol/L [facility] Potassium 4.5 3.5 - 5.0 mmol/L [facility] Comment: Please note: ??Patients with WBC >100,000 may have falsely elevated Potassium levels. ??For accurate Potassium quantification in these patients send serum separator tube (gold top) for subsequent determinations. ??Contact the Clinical Chemistry Laboratory if there are any questions. Chloride 106 98 - 107 mmol/L [facility] Carbon Dioxide 26 22 - 31 mmol/L [facility] Anion Gap 9 5 - 15 mmol/L [facility] Calcium 9.9 8.5 - 10.5 mg/dL [facility] Protein, Total 7.0 6.1 - 8.0 g/dL [facility] Albumin 4.5 3.2 - 5.2 g/dL [facility] Aspartate Aminotransferase 14 0 - 30 unit/L [facility] Alanine Aminotransferase 15 0 - 30 unit/L [facility] Alkaline Phosphatase 70 35 - 105 unit/L [facility] Bilirubin, Total 0.6 0.2 - 1.3 mg/dL [facility] Est Glomerular Filtration Rate 69 >=60 mL/min/1. 73 m?? 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
--- OUTSIDE RECORDS SUMMARY | 2024-02-24 01:59 | XMS_ITS | Encounter Summary ---
Author Organization [facility] Address [facility] [place] [address] Care Team Providers Care Secondary Market Manager Name Role Phone Taylor Bryant ZARA Primary Care Provider [phone] [phone] Reason for Visit * Reason Comments Follow-up Encounter Details Date Type Department Care Team ([facility] st Contact Info) Description 09/12/2023 8:45 AM EDT Office Visit Hematology [place] [address] Jean-Pierre Peña MD [facility] DR HEMATOLOGY [place] [address] [facility] [place] [address] Malignant melanoma of scalp; Secondary malignancy of soft tissue; Medication management; Immunotherapy Social History Tobacco Use Types Packs/Day Years Used Date Smoking Tobacco: Former Smokeless Tobacco: Never Comments:quit at age 35 Alcohol Use Standard Drinks/Week Comments Yes 0 (1 standard drink = 0.6 oz pur e alcohol) social gatherings [facility] Utilities Answer Date Recorded In the past 12 months has [employer] electric, gas, oil, or water company threatened [...] from the original note were not included. [facility] NOTE REFERING PHYSICIAN: DIAGNOSIS: Right [...] TH Visit (TeleHealth) Hematology [place] [address] Jean-Pierre Peña MD [facility] DR HEMATOLOGY [place] [address] [facility] [place] [address] 02/28/2024 11:30 AM EDT Infusion Hematology Oncology at [address] [address] 03/19/2024 12:45 PM EST Laboratory Appointment Lab at [facility] Hematology Oncology [address] [place] [address] 03/19/2024 1:45 PM EST Office Visit Hematology [place] [address] Jean-Pierre Peña MD [facility] DR HEMATOLOGY [place] [address] [facility] [place] [address] 03/19/2024 3:30 PM EST Appointment Hematology [place] [address] 04/30/2024 12:15 PM EST Laboratory Appointment Lab at [facility] Hematology Oncology [address] [place] [address] 04/30/2024 1:15 PM EST Office Visit Hematology [place] [phone] Jean-Pierre Peña MD [facility] DR HEMATOLOGY [place] [address] [facility] [place] [address] 04/30/2024 2:30 PM EST Appointment Hematology [place] [address] 05/22/2024 11:30 AM EST Office Visit Dermatology at [place] [address] [place] [phone] Inderjit Vilchis MD [facility] [address] G[facility]ERT[facility] [place] [address] documented as of this encounter Visit Diagnoses Diagnosis Malignant melanoma of scalp Malignant melanoma of skin of scalp and neck Secondary malignancy of soft tissue Medication management Encounter for long-term (current) use of other medications Immunotherapy Reserved for inherently not codable concepts WITHOUT codable children documented in this encounter Care Teams Secondary Market Manager Relationship Specialty Start Date End Date Taylor Bryant APRN [address] [place] [address] PCP - General 03/31/10 documented as of this encounter
--- OUTSIDE RECORDS SUMMARY | 2024-02-24 01:59 | XMS_ITS | Encounter Summary ---
Author Organization [facility] Address [facility] [address] Care Team Providers Care College Sports Coach Name Role Phone Taylor Bryant APRN Primary Care Provider [phone] [phone] Encounter Details Date Type Department Care Team (Latest Contact Info) Description 09/06/2023 Travel Social History Tobacco Use Types Packs/Day Years Used Date Smoking Tobacco: Former Smokeless Tobacco: Never Comments:quit at age 35 Alcohol Use Standard Drinks/Week Comments Yes 0 (1 standard drink = 0.6 oz pur e alcohol) social gatherings [facility] Utilities Answer Date Recorded In [...] TH Visit (TeleHealth) Hematology [place] [address] Jean-Pierre Peña MD [facility] [place] [address] Vicky Burnham APRN [facility] [place] [address] 02/28/2024 11:30 AM EDT Infusion Hematology Oncology at [address] [address] 03/19/2024 12:45 PM EST Laboratory Appointment Lab at [facility] Hematology Oncology [address] [place] [address] 03/19/2024 1:45 PM EST Office Visit Hematology [place] [address] Jean-Pierre Peña MD [facility] [place] [address] Vicky Burnham APRN [facility] [place] [address] 03/19/2024 3:30 PM EST Appointment Hematology [place] [phone] 04/30/2024 12:15 PM EST Laboratory Appointment Lab at [facility] Hematology Oncology [address] [place] [address] 04/30/2024 1:15 PM EST Office Visit Hematology [place] [address] Jean-Pierre Peña MD [facility] DR [place] [address] Vicky Burnham APRN [facility] [place] [address] 04/30/2024 2:30 PM EST Appointment Hematology [place] [address] 05/22/2024 11:30 AM EST Office Visit Dermatology at [facility] [address] [place] [address] Inderjit Vilchis MD [facility] DR [facility] [place] [address] documented as of this encounter Visit Diagnoses Not on filedocumented in this encounter Care Teams College Sports Coach Relationship Specialty Start Date End Date Taylor Bryant APRN [address] [place] [address] PCP - General 03/31/10 documented as of this encounter
--- OUTSIDE RECORDS SUMMARY | 2024-02-24 01:59 | XMS_ITS | Encounter Summary ---
Author Organization [facility] Address [facility] [place] [address] Care Team Providers Care Microsoft Systems Engineer Name Role Phone Taylor Bryant APRN Primary Care Provider [phone] [phone] Reason for Visit * Auth/Cert (Routine) Specialty Diagnoses / Procedures Referred By Crista padron Referred To Contact Diagnoses Melanoma melanoma Procedures PRO EXC SKIN MALIG 3.1-4CM REMAINDR BODY PRO BX/REMV, LYMPH NODE, DEEP CERV EXC MALIGNANT LESION, 3.1. TO 4.0CM, SCALP (WRVU 3.62) BIOPSY OR EXCISION OF LYMPH NODE(S), OPEN, DEEP CERVICAL NODES (WRVU 6.74) Castro Preciado MD [facility] [place] [address] [facility] Referral ID Status Reason Start Date Expiration Date Visits Re quested Visits Authorized [id number] 1 1 Encounter Details Date Type Department Care Team (Late st Contact Info) Description 09/16/2023 11:48 AM EDT Anesthesia [place] [address] Des Mercedes MD [facility] [place] [address] Anesthesia Record Procedure Summary Procedure Name Responsible [...] Procedure Summary Date: 09/16/23 Room / Location: [facility] MAIN OR Anesthesia Start: 1148 Anesthesia Stop: 1455 Procedures: RADICAL RESECTION TUMOR SCALP; >2 CM (WRVU 15.26) (Right: Face) BIOPSY OR EXCISION OF LYMPH NODE(S), OPEN, DEEP CERVICAL NODES (WRVU 6.74) (Right: Neck) Diagnosis:(melanoma) Surgeons: Castro Preciado MD Responsible Provider: Des Mercedes MD Anesthesia Type: general ASA Status: 2 All Anesthesia Providers: Anesthesiologist: Des Mercedes MD DRAW OFF WORKER: Sandy Velasco CRNA Vitals Value Taken Time BP 139/79 09/16/23 1645 Temp 36.5 ??C (97.7 ??F) 09/16/23 1645 Pulse 90 09/16/23 1600 Resp 20 09/16/23 1630 SpO2 96 % 09/16/23 1658 Pain Level 7 09/16/23 1630 Vitals shown include unfiled device data. Patient Location: PACU/[facility] Level of Consciousness: Awake and Alert Pain [...] risks discussed with patient. Plan discussed with DRAW OFF WORKER. Anesthesia Screening documented in this encounter Plan of Treatment Upcoming Encounters Date Type Department Care Team (Late st Contact Info) Description 02/27/2024 8:15 AM EDT TH Visit (TeleHealth) Hematology [place] [address] Jean-Pierre Peña MD [facility] DR HEMATOLOGY [place] [address] Vicky Burnham APRN [facility] [place] [address] 02/28/2024 11:30 AM EDT Infusion Hematology Oncology at [address] [address] 03/19/2024 12:45 PM EST Laboratory Appointment Lab at [facility] [place] On[place] [address] [place] [address] 03/19/2024 1:45 PM EST Office Visit Hematology [place] [address] Jean-Pierre Peña MD [facility] DR HEMATOLOGY [place] [address] Vicky Burnham [employer]CR[employer] FINISHER [facility] DR [place] [address] 03/19/2024 3:30 PM EST Appointment Hematology [place] [address] 04/30/2024 12:15 PM EST Laboratory Appointment Lab at [facility] [place]ematology Oncology [address] [place] [address] 04/30/2024 1:15 PM EST Office Visit Hematology [place] [address] Jean-Pierre Peña MD [facility] DR HEMATOLOGY [place] [address] Vicky Burnham APRN [facility] [place] [address] 04/30/2024 2:30 PM EST Appointment Hematology [place] [address] 05/22/2024 11:30 AM EST Office Visit Dermatology at [address] [place] [address] Inderjit Vilchis MD [facility] [place] [address] documented as of this encounter Visit Diagnoses [...] mg documented in this encounter Care Teams Microsoft Systems Engineer Relationship Specialty Start Date End Date Taylor Bryant APRN [address] [place] [address] PCP - General 03/31/10 documented as of this encounter
--- OUTSIDE RECORDS SUMMARY | 2024-02-24 01:59 | XMS_ITS | Encounter Summary ---
Author Organization [facility] Address [facility] [place] [address] Care Team Providers Care Hook Puller Name Role Phone Taylor Bryant APRN Primary Care Provider [phone] [phone] Reason for Visit * Reason Comments Specialty Pharmacy Review Tafinlar 75mg capsule Encounter Details Date Type Department Care Team ([facility] st Contact Info) Description 09/12/2023 Specialty Pharmacy Pharmacy at [facility] [place] [phone] Tegan Mcnamara, INNER LAYER SCRUBBER TENDER Social History Tobacco Use Types Packs/Day Years Used Date Smoking Tobacco: Former Smokeless Tobacco: Never Comments:quit at age 35 Alcohol Use Standard Drinks/Week Comments Yes 0 (1 standard drink = 0.6 oz pur e alcohol) social gatherings [facility] Utilities Answer Date Recorded In the [...] Mcnamara - 09/12/2023 11:59 PM EDT The [facility] has completed a benefits investigation for Keeley Gutierrez to review their eligibility to fill at [facility]. Per patient's medication list they are prescribed Tafinlar 75mg capsule and the medication is able to be filled at the [facility]. The patient is eligible to fill the medication through Specialty pharmacy with a $11.20 copay. No PA required. The patient is not starting therapy at this time. documented in this encounter Plan of Treatment Upcoming Encounters Date Type Department Care Team (Late st Contact Info) Description 02/27/2024 8:15 AM EDT TH Visit (TeleHealth) Hematology [place] [address] Jean-Pierre Peña MD [facility] [place] [address] Vicky Burnham APRN [facility] [place] [address] 02/28/2024 11:30 AM EDT Infusion Hematology Oncology at [address] [address] 03/19/2024 12:45 PM EST Laboratory Appointment Lab at [facility] Hematology Oncology [address] [place] [address] 03/19/2024 1:45 PM EST Office Visit Hematology [place] [phone] Jean-Pierre Peña MD [facility] [place] [address] Vicky Burnham APRN [facility] [place] [address] 03/19/2024 3:30 PM EST Appointment Hematology [place] [phone] 04/30/2024 12:15 PM EST Laboratory Appointment Lab at [facility] Hematology Oncology [address] [place] [address] 04/30/2024 1:15 PM EST Office Visit Hematology [place] [phone] Jean-Pierre Peña MD [facility] [place] [address] Vicky Burnham APRN [facility] [place] [address] 04/30/2024 2:30 PM EST Appointment Hematology [place] [address] 05/22/2024 11:30 AM EST Office Visit Dermatology at [address] [phone] Inderjit Vilchis MD [facility] DR GILB[place] [address] documented as of this encounter Visit Diagnoses Not on filedocumented in this encounter Care Teams Hook Puller Relationship Specialty Start Date End Date Taylor Bryant APRN [address] [place] [address] PCP - General 03/31/10 documented as of this encounter
--- OUTSIDE RECORDS SUMMARY | 2024-02-24 01:59 | XMS_ITS | Encounter Summary ---
Author Organization [facility] Address [facility] [place] [address] Care Team Providers Care Mill Work Name Role Phone Taylor Bryant APRN Primary Care Provider [phone] [phone] Encounter Details Date Type Department Care Team (Latest Contact Info) Description 08/05/2023 Travel Social History Tobacco Use Types Packs/Day Years Used Date Smoking Tobacco: Former Smokeless Tobacco: Never Comments:quit at age 35 Alcohol Use Standard Drinks/Week Comments Yes 0 (1 standard drink = 0.6 oz pur e alcohol) social gatherings [facility] Utilities Answer Date Recorded In the [...] in a penitentiary (including now)? No 07/24/2023 Sex and Gender Information Value Date Recorded Sex Assigned at Not on file Gender Identity Not on file Sexual Orientation Not on file documented as of this encounter Plan of Treatment Upcoming Encounters Date Type Department Care Team (Late st Contact Info) Description 02/27/2024 8:15 AM EDT TH Visit (TeleHealth) Hematology [place] [address] Jean-Pierre Peña MD [facility] HEMATOLOGY [place] [address] Vicky Burnham APRN [facility] [place] [address] 02/28/2024 11:30 AM EDT Infusion Hematology Oncology at [address] [address] 03/19/2024 12:45 PM EST Laboratory Appointment Lab at [facility] Hematology Oncology [address] [place] [address] 03/19/2024 1:45 PM EST Office Visit Hematology [place] [address] Jean-Pierre Peña MD [facility] HEMATOLOGY [place] [address] Vicky Burnham APRN [facility] [place] [address] 03/19/2024 3:30 PM EST Appointment Hematology [place] [phone] 04/30/2024 12:15 PM EST Laboratory Appointment Lab at [facility] Hematology Oncology [address] [place] [address] 04/30/2024 1:15 PM EST Office Visit Hematology [place] [address] Jean-Pierre Peña MD [facility] DR HEMATOLOGY [place] [address] Vicky Burnham APRN [facility] [place] [address] 04/30/2024 2:30 PM EST Appointment Hematology [place] [address] 05/22/2024 11:30 AM EST Office Visit Dermatology at [facility] [address] [place] [address] Inderjit Vilchis MD [facility] DR GILBERTO STER[place] [address] documented as of this encounter Visit Diagnoses Not on filedocumented in this encounter Care Teams Mill Work Relationship Specialty Start Date End Date Taylor Bryant APRN [address] [place] [address] PCP - General 03/31/10 documented as of this encounter
--- OUTSIDE RECORDS SUMMARY | 2024-02-24 01:59 | XMS_ITS | Encounter Summary ---
Author Organization [facility] Address [facility] [place] [address] Care Team Providers Care [employer] Combination Teacher Name Role Phone Taylor Bryant APRN Primary Care Provider [phone] [phone] Encounter Details Date Type Department Care Team ([facility] st Contact Info) Description 08/22/2023 Telephone Otolaryngology at [facility] [place] [address] Jeannie Dale Social History Tobacco Use Types Packs/Day Years Used Date Smoking Tobacco: Former Smokeless Tobacco: Never Comments:quit at age 35 Alcohol Use Standard Drinks/Week Comments Yes 0 (1 standard drink = 0.6 oz pur e alcohol) social gatherings [facility] Utilities Answer Date Recorded In [...] TH Visit (TeleHealth) Hematology [place] [address] Jean-Pierre Peña MD [facility] DR [place] [address] Vicky Burnham APRN [facility] [place] [address] 02/28/2024 11:30 AM EDT Infusion Hematology Oncology at [address] [address] 03/19/2024 12:45 PM EST Laboratory Appointment Lab at [facility] Hematology Oncology [address] [place] [address] 03/19/2024 1:45 PM EST Office Visit Hematology [place] [phone] Jean-Pierre Peña MD [facility] DR [place] [address] Vicky Burnham APRN [facility] [place] [address] 03/19/2024 3:30 PM EST Appointment Hematology and Oncology at [place] [phone] 04/30/2024 12:15 PM EST Laboratory Appointment Lab at [facility] Hematology Oncology [address] [place] [address] 04/30/2024 1:15 PM EST Office Visit Hematology [place] [address] Jean-Pierre Peña MD [facility] DR [place]EMAT[place]Y [place] [address] Vicky Burnham DESIGN COORDINATOR [facility] [place] [address] 04/30/2024 2:30 PM EST Appointment Hematology [place] [address] 05/22/2024 11:30 AM EST Office Visit Dermatology at [address] [phone] Inderjit Vilchis MD [facility] DR [facility] [place] [address] documented as of this encounter Visit Diagnoses Not on filedocumented in this encounter Care Teams [employer] Combination Teacher Relationship Specialty Start Date End Date Taylor Bryant APRN [address] [place] [address] PCP - General 03/31/10 documented as of this encounter
--- OUTSIDE RECORDS SUMMARY | 2024-02-24 01:59 | XMS_ITS | Encounter Summary ---
Author Organization [facility] Address [facility] [place] [address] Care Team Providers Care Personnel Analyst Name Role Phone Taylor Bryant APRN Primary Care Provider [phone] [phone] Encounter Details Date Type Department Care Team (Latest Contact Info) Description 09/04/2023 Travel Social History Tobacco Use Types Packs/Day Years Used Date Smoking Tobacco: Former Smokeless Tobacco: Never Comments:quit at age 35 Alcohol Use Standard Drinks/Week Comments Yes 0 (1 standard drink = 0.6 oz pur e alcohol) social gatherings [facility] Utilities Answer Date Recorded In [...] in a mcc (including now)? No 07/24/2023 Sex and Gender Information Value Date Recorded Sex Assigned at Not on file Gender Identity Not on file Sexual Orientation Not on file documented as of this encounter Plan of Treatment Upcoming Encounters Date Type Department Care Team (Late st Contact Info) Description 02/27/2024 8:15 AM EDT TH Visit (TeleHealth) [place]ology [place] [address] Jean-Pierre Peña MD [facility] [place] [address] Vicky Burnham APRN [facility] [place] [address] 02/28/2024 11:30 AM EDT Infusion Hematology Oncology at [address] [address] 03/19/2024 12:45 PM EST Laboratory Appointment Lab at [facility] Hematology Oncology [address] [place] [address] 03/19/2024 1:45 PM EST Office Visit [place]ematology [place] [address] Jean-Pierre Peña MD [facility] [place] [address] Vicky Burnham APRN [facility] [place] [address] 03/19/2024 3:30 PM EST Appointment Hematology [place] [address] 04/30/2024 12:15 PM EST Laboratory Appointment Lab at [facility] Hematology Oncology [address] [place] [address] 04/30/2024 1:15 PM EST Office Visit [place]ematology [place] [address] Jean-Pierre Peña MD [facility] [place] [address] Vicky Burnham APRN [facility] [place] [place] [address] 04/30/2024 2:30 PM EST Appointment Hematology [place] [address] 05/22/2024 11:30 AM EST Office Visit Dermatology at [facility] [address] [place] [address] Inderjit Vilchis MD [facility] DR [place] [address] documented as of this encounter Visit Diagnoses Not on filedocumented in this encounter Care Teams Personnel Analyst Relationship Specialty Start Date End Date Taylor Bryant APRN [address] [place] [address] PCP - General 03/31/10 documented as of this encounter
--- OUTSIDE RECORDS SUMMARY | 2024-02-24 01:59 | XMS_ITS | Encounter Summary ---
Author Organization [facility] Address [facility] [place] [address] Care Team Providers Care Treasury Accountant Name Role Phone Tayolr Bryant APRN Primary Care Provider [phone] [phone] Reason for Visit * Auth/Cert (Routine) Specialty Diagnoses / Procedures Referred By Crista padron Referred To Contact Diagnoses Melanoma melanoma Procedures PRO EXC SKIN MALIG 3.1-4CM REMAINDR BODY PRO BX/REMV, LYMPH NODE, DEEP CERV EXC MALIGNANT LESION, 3.1. TO 4.0CM, SCALP (WRVU 3.62) BIOPSY OR EXCISION OF LYMPH NODE(S), OPEN, DEEP CERVICAL NODES (WRVU 6.74) Justa Preciado MD [facility] [address] [facility] Referral ID Status Reason Start Date Expiration Date Visits Re quested Visits Authorized [id number] 1 1 Encounter Details Date Type Department Care Team (Latest Contact Info) Description 09/16/2023 9:54 AM EDT - 09/16/2023 5:20 PM EDT Hospital En[place] [address] Justa Preciado MD [facility] [place] [address] Discharge Disposition: Home Social History Tobacco Use Types Packs/Day Years Used Date Smoking Tobacco: Former Smokeless Tobacco: Never Comments:quit at age 35 Alcohol Use Standard Drinks/Week Comments Yes 0 (1 standard drink = 0.6 oz pur e alcohol) social gatherings [facility] Utilities Answer Date Recorded In [...] -You can reach the ENT clinic at [phone] for appointment questions. -The ENT triage nurse is available at [phone] -For urgent issues during evenings (5 PM - 7 AM) and weekends the ENT resident medical director occupational health can be reached through the main hospital save all operator at [phone] Follow Up: You will need to follow [...] AM LABORATORY, TECH Hematology and Oncology at [facility] Arrive at: Nurse Research Area [phone] 10/04/2023 11:30 AM Jean-Pierre Peña MD Hematology and Oncology at [facility] Arrive at: Nurse Research Area [phone] 10/04/2023 1:30 PM LEB INFUSION THERAPY Hematology and Oncology at [facility] Arrive at: Nurse Research Area [phone] 10/06/2023 1:00 PM Norm Joy PA Otolaryngology at [facility] Arrive at: [address] [phone] Please dispose of unused excess opioids before your appointment or bring them with you to the appointment and we will help you dispose of them correctly. 10/24/2023 7:45 AM LABORATORY, TECH Hematology and Oncology at [facility] Arrive at: Nurse Research Area [phone] 10/24/2023 8:45 AM Jean-Pierre Peña MD Hematology and Oncology at [facility] Arrive at: Nurse Research Area [phone] 10/24/2023 10:00 AM LEB INFUSION THERAPY Hematology and Oncology at [facility] Arrive at: Nurse Research Area [phone] 11/14/2023 7:45 AM SHAI SMITH Hematology and Oncology at [facility] Arrive at: Nurse Research Area [phone] 11/14/2023 8:45 AM Jean-Pierre Peña MD Hematology and Oncology at [facility] Arrive at: Nurse Research Area [phone] 11/14/2023 10:00 AM LEB INFUSION THERAPY Hematology and Oncology at [facility] Arrive at: Nurse Research Area [phone] 12/20/2023 2:15 PM Inderjit Vilchis MD Dermatology at [facility] Arrive at: [address] documented in this encounter Medications at [...] Preciado MD - 09/16/2023 12:[address] [facility] Operative Note Patient Name: Keeley Gutierrez : [id number] MR#: [id number] Case Date: 09/16/2023 Surgeon: Surgeon(s) and Role: * Justa Preciado MD - Primary * Filippo Reilly MD - Resident - Assisting * Jordan Gonzalez PA - Physician Cataloging Assistant Preoperative diagnosis: melanoma Postoperative diagnosis: melanoma Procedure(s) [...] TH Visit (TeleHealth) Hematology [place] [address] Jean-Pierre Peña MD [facility] [place] [address] Vicky Burnham APRN [facility] [place] [place] [address] 02/28/2024 11:30 AM EDT Infusion Hematology Oncology at [address] [address] 03/19/2024 12:45 PM EST Laboratory Appointment Lab at [facility] Hematology Oncology [address] [place] [address] 03/19/2024 1:45 PM EST Office Visit Hematology [place] [address] Jean-Pierre Peña MD [facility] [place] [address] Vicky Burnham APRN [facility] [place] [place] [address] 03/19/2024 3:30 PM EST Appointment Hematology [place] [address] 04/30/2024 12:15 PM EST Laboratory Appointment Lab at [facility] Hematology Oncology [address] [place] [address] 04/30/2024 1:15 PM EST Office Visit Hematology [place] [address] Jean-Pierre Peña MD [facility] [place] [address] Vicky Burnham APRN [facility] [place] [place] [address] 04/30/2024 2:30 PM EST Appointment Hematology [place] [address] 05/22/2024 11:30 AM EST Office Visit Dermatology at [address] [phone] Inderjit Vilchis MD [facility] DR GILBERT[place] [address] (work) documented as of this encounter Procedures Procedure [...] PM EDT Bx/Remv, Lymph Node, Deep Cerv ([id number]) 09/16/2023 11:48 AM EDT melanoma Radical/Resect Of Tumor, Soft Tissue Face Or Scalp, 2Cm Or Greater ([id number]) 09/16/2023 11:48 AM EDT melanoma BIOPSY OR [...] to follow Justa Preciado MD PATHOLOGY/CYTOLOGY ORDERABLES [facility] [place] [address] * Specimen to Pathology (09/16/2023 1:25 PM EDT) AP Specimen 09/16/2023 1:25 PM EDT 09/16/2023 1:25 PM EDT Narrative [facility] - 09/16/2023 1:25 PM EDT Specimen requisition ordered. ??Separate Pathology report to follow Justa Preciado MD PATHOLOGY/CYTOLOGY ORDERABLES Performing Organization Address [facility] de Phone Number [facility] [place] [address] * Specimen to Pathology (09/16/2023 1:25 PM EDT) AP Specimen 09/16/2023 1:25 PM EDT 09/16/2023 1:25 PM EDT Narrative [facility] - 09/16/2023 1:25 PM EDT Specimen requisition ordered. ??Separate Pathology report to follow Justa Preciado MD PATHOLOGY/CYTOLOGY ORDERABLES Performing Organization Address [facility] [place] [address] * Specimen to Pathology (09/16/2023 1:25 PM EDT) AP Specimen 09/16/2023 1:25 PM EDT 09/16/2023 1:25 PM EDT Narrative [facility] - 09/16/2023 1:25 PM EDT Specimen requisition ordered. ??Separate Pathology report to follow Justa Preciado MD PATHOLOGY/CYTOLOGY ORDERABLES Performing Organization Address [facility] [place] [address] * Surgical Pathology Report (09/16/2023 12:50 PM EDT) Final Diagnosis [id number] ? Location: [facility]; [facility]; A The signing pathologist has (i) examined [...] lesion Electronically signed by: ?Wilian ROBLES, PhD, [facility] Verified: ??09/27/2023 10:12 ??Dermatopathologist Performed at: ??-[facility] Dept. of Pathology, [place] [address] Nurse Monitoring: Johnnie Stephens MD, AP, ??CLIA Certificate: [id number] SYNOPTIC Specimen ? Procedure: ??Excision; ??Lymphadenectomy, regional [...] of Lymph Nodes Examined: ??6 ?Number of [place] Nodes Examined: ??0 ? Pathologic Stage Classification (pTNM, AJCC 8th Edition) ?Pathologic Stage Classification: ??Classification assigned in this report ? includes information from a prior procedure - yes ?pT Category: ??pT4a . SYNOPTIC ?pN Category: ??pN1c Best Tumor Blocks for Future Studies ? Tumor Block(s): ??D10,12,14 ? Normal Block(s): ??D3 ? [facility] 2021 Q1 Release DISCUSSION Scanned images of the patient's prior biopsy ([id number]) have been reviewed. There is extensive residual [...] PM EDT Justa Preciado MD PATHOLOGY/CYT[place] [address] documented in this encounter Visit Diagnoses Not [...] MD) documented in this encounter Care Teams Treasury Accountant Relationship Specialty Start Date End Date Taylor Bryant APRN [address] [place] [address] PCP - General 03/31/10 documented as of this encounter
--- OUTSIDE RECORDS SUMMARY | 2024-02-24 01:59 | XMS_ITS | Encounter Summary ---
Author Organization [facility] Address [facility] [place] [address] Care Team Providers Care Licensed Embalmer Supervisor Name Role Phone Taylor Bryant APRN Primary Care Provider +1 [phone] Encounter Details Date Type Department Care Team ([facility] st Contact Info) Description 09/05/2023 Telephone Hematology [place] [phone] Roselyn Sánchez Social History Tobacco Use Types Packs/Day Years Used Date Smoking Tobacco: Former Smokeless Tobacco: Never Comments:quit at age 35 Alcohol Use Standard Drinks/Week Comments Yes 0 (1 standard drink = 0.6 oz pur e alcohol) social gatherings [facility] Utilities Answer Date Recorded In [...] - 09/08/2023 9:59 AM EDT Community Health Chief Clinical Officer spoke to Keeley. [facility] awarded $175 check for gas expenses toand from . She asked about the [facility] dona. She has not opened the envelope I gave her. I explained the process.She has automatic payment. She will need to have her loan clean rice broker create a bill for this dona. Roselyn Sánchez * Telephone Encounter - Roselyn Sánchez - 09/05/2023 3:43 PM EDT [facility] Chief Clinical Officer spoke with Keeley today about grants etc. Keeley is struggling financially at this time. Today I applied for [facility] dona asking for assistance with $175 for gas expenses. Keeley said she is a bit down due to her diagnosis. She said she has spoke to her PCP and will begetting support thru [employer]. I offered for a SCHOOL NURSE to speak with her. She declined. I have dropped off a envelope for her at 3K. She will bean picker on 09/05. with her See below. Dear Keeley, 09/05/2023 Just a recap of our conversation. Since you are in treatment you may be eligible for a [facility] dona. They offer one time assistance. This isn't a guaranty you will receive an award. I will need copies of one or two bills to submit to them. Bills need to have your name, your address, account number, company name and billing address and bills no older than 60 days. They pay the vendor directly. Devin Saldana [employer] ([facility])dona may assist with up to $800 toward household bill(s). The Programdoes not help with the cost of medical expenses, debt collections or credit card bills. Submitted applications are processed within 6-7 weeks. They also provide a grocery gift card. This portion of the dona usually process in about 2-3 weeksonce application has been submitted. [employer] dona requires proof of household income. They accept any of these sources: a month's worth of last pay stubs for anyone who works in the household, last year's taxes- 1040 forms, social security benefits letter. Please send me a copy of the document. NOT the original. I have applied for assistance with gas thru the [facility] dona. This dona takes about a week to process. I will notify you of the determination. Please keep copies of your gas receipts. When you reach about $175 send them to me in the enclosed envelope. I have enclosed: [facility] dona application and signature page [employer]?? [...] TH Visit (TeleHealth) [place] [address] Jean-Pierre Peña MD [facility] [place] [address] Vicky Burnham APRN [facility] [place] [address] 02/28/2024 11:30 AM EDT Infusion Hematology Oncology at [address] [address] 03/19/2024 12:45 PM EST Laboratory Appointment Lab at [facility] [place] [place] Hematology Oncology [address] [place] [address] 03/19/2024 1:45 PM EST Office Visit [place]ematology [place] [phone] Jean-Pierre Peña MD [facility] [place] [address] Vicky Burnham APRN [facility] [place] [address] 03/19/2024 3:30 PM EST Appointment Hematology [place] [address] 04/30/2024 12:15 PM EST Laboratory Appointment Lab at [facility] [place] [place] Hematology Oncology [address] [place] [address] 04/30/2024 1:15 PM EST Office Visit Hematology [place] [address] Jean-Pierre Peña MD [facility] [place] [address] Vicky Burnham APRN [facility] [place] [address] 04/30/2024 2:30 PM EST Appointment Hematology [place] [address] 05/22/2024 11:30 AM EST Office Visit Dermatology at [address] [place] [address] Inderjit Vilchis MD [facility] DR GIL[place] [address] documented as of this encounter Visit Diagnoses Not on filedocumented in this encounter Care Teams Licensed Embalmer Supervisor Relationship Specialty Start Date End Date Taylor Bryant APRN [address] [place] [address] PCP - General 03/31/10 documented as of this encounter
--- OUTSIDE RECORDS SUMMARY | 2024-02-24 01:59 | XMS_ITS | Encounter Summary ---
Author Organization [facility] Address [facility] [place] [address] Care Team Providers Care Collar Setter Overlock Name Role Phone Taylor Bryant APRN Primary Care Provider [phone] [phone] Encounter Details Date Type Department Care Team (Latest Contact Info) Description 08/18/2023 Travel Social History Tobacco Use Types Packs/Day Years Used Date Smoking Tobacco: Former Smokeless Tobacco: Never Comments:quit at age 35 Alcohol Use Standard Drinks/Week Comments Yes 0 (1 standard drink = 0.6 oz pur e alcohol) social gatherings [facility] Utilities Answer Date Recorded In [...] in a long-term (including now)? No 07/24/2023 Sex and Gender Information Value Date Recorded Sex Assigned at Not on file Gender Identity Not on file Sexual Orientation Not on file documented as of this encounter Plan of Treatment Upcoming Encounters Date Type Department Care Team (Late st Contact Info) Description 02/27/2024 8:15 AM EDT TH Visit (TeleHealth) Hematology [place] [address] Jean-Pierre Peña MD [facility] HEMATOLOGY [place] [address] Vicky Burnham APRN [facility] [place] [address] 02/28/2024 11:30 AM EDT Infusion Hematology Oncology at [address] [address] 03/19/2024 12:45 PM EST Laboratory Appointment Lab at [facility] Hematology Oncology [address] [place] [address] 03/19/2024 1:45 PM EST Office Visit Hematology [place] [address] Jean-Pierre Peña MD [facility] HEMATOLOGY [place] [address] Vicky Burnham APRN [facility] [place] [address] 03/19/2024 3:30 PM EST Appointment Hematology [place] [address] 04/30/2024 12:15 PM EST Laboratory Appointment Lab at [facility] Hematology Oncology [address] [place] [address] 04/30/2024 1:15 PM EST Office Visit Hematology [place] [address] Jean-Pierre Peña MD [facility] DR HEMATOLOGY [place] [address] Vicky Burnham APRN [facility] [place] [address] 04/30/2024 2:30 PM EST Appointment Hematology [place] [address] 05/22/2024 11:30 AM EST Office Visit Derm[facility]ology at [facility] [address] [place] [address] Inderjit Vilchis MD [facility] DR GILBERTO [place] [address] documented as of this encounter Visit Diagnoses Not on filedocumented in this encounter Care Teams Collar Setter Overlock Relationship Specialty Start Date End Date Taylor Bryant APRN [address] [place] [address] PCP - General 03/31/10 documented as of this encounter
--- OUTSIDE RECORDS SUMMARY | 2024-02-24 01:59 | XMS_ITS | Encounter Summary ---
Author Organization [facility] Address [facility] [place] [address] Care Team Providers Care Material Handling Equipment Stevedore Name Role Phone Taylor Bryant APRN Primary Care Provider +1 [phone] Reason for Visit * Reason Comments Advice Only Encounter Details Date Type Department Care Team ([facility] st Contact Info) Description 08/23/2023 10:00 AM EDT Clinical Support Hematology and Oncology at [facility] [place] [phone] Sukh Hilario, [facility] Malignant melanoma of scalp Social History Tobacco Use Types Packs/Day Years Used Date Smoking Tobacco: Former Smokeless Tobacco: Never Comments:quit at age 35 Alcohol Use Standard Drinks/Week Comments Yes 0 (1 standard drink = 0.6 oz pur e alcohol) social gatherings [facility] Utilities Answer Date Recorded In [...] a senior care (including now)? No 07/24/2023 Sex and Gender Information Value Date Recorded Sex Assigned at Not on file Gender Identity Not on file Sexual Orientation Not on file documented as of this encounter Progress Notes * Sukh Hilario, [facility] - 08/23/2023 10:00 AM EDT PATIENT ID: [...] TH Visit (TeleHealth) Hematology [place] [address] Jean-Pierre Peña MD [facility] [place] [address] Vicky Burnham APRN [facility] [place] [address] 02/28/2024 11:30 AM EDT Infusion Hematology Oncology at [address] [address] 03/19/2024 12:45 PM EST Laboratory Appointment Lab at [facility] Hematology Oncology [address] [place] [address] 03/19/2024 1:45 PM EST Office Visit Hematology [place] [address] Jean-Pierre Peña MD [facility] DR [place] [address] Vicky Burnham APRN [facility] [place] [address] 03/19/2024 3:30 PM EST Appointment Hematology [place] [address] 04/30/2024 12:15 PM EST Laboratory Appointment Lab at [facility] Hematology Oncology [address] [place] [address] 04/30/2024 1:15 PM EST Office Visit Hematology and Oncology at [place] [phone] Jean-Pierre Peña MD [facility] DR [place] [address] Vicky Burnham [facility] [place] [address] 04/30/2024 2:30 PM EST Appointment Hematology [place] [address] 05/22/2024 11:30 AM EST Office Visit Dermatology at [address] [address] Inderjit Vilchis MD [facility] DR GILBERT[place] [address] documented as of this encounter Visit Diagnoses Diagnosis 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
--- OUTSIDE RECORDS SUMMARY | 2024-02-24 01:59 | XMS_ITS | Encounter Summary ---
Author Organization [facility] Address [facility] [place] [address] Care Team Providers Care Seasonal Clerk Name Role Phone Taylor Bryant APRN Primary Care Provider [phone] [phone] Encounter Details Date Type Department Care Team (Latest Contact Info) Description 08/11/2023 Travel Social History Tobacco Use Types Packs/Day Years Used Date Smoking Tobacco: Former Smokeless Tobacco: Never Comments:quit at age 35 Alcohol Use Standard Drinks/Week Comments Yes 0 (1 standard drink = 0.6 oz pur e alcohol) social gatherings [facility] Utilities Answer Date Recorded In [...] in a fpc (including now)? No 07/24/2023 Sex and Gender Information Value Date Recorded Sex Assigned at Not on file Gender Identity Not on file Sexual Orientation Not on file documented as of this encounter Plan of Treatment Upcoming Encounters Date Type Department Care Team (Late st Contact Info) Description 02/27/2024 8:15 AM EDT TH Visit (TeleHealth) Hematology [place] [address] Jean-Pierre Peña MD [facility] HEMATOLOGY [place] [address] Vicky Burnham APRN [facility] [place] [address] 02/28/2024 11:30 AM EDT Infusion Hematology Oncology at [address] [address] 03/19/2024 12:45 PM EST Laboratory Appointment Lab at [facility] Hematology Oncology [address] [place] [address] 03/19/2024 1:45 PM EST Office Visit Hematology [place] [address] Jean-Pierre Peña MD [facility] HEMATOLOGY [place] [address] Vicky Burnham APRN [facility] [place] [address] 03/19/2024 3:30 PM EST Appointment Hematology [place] [address] 04/30/2024 12:15 PM EST Laboratory Appointment Lab at [facility] Hematology Oncology [address] [place] [address] 04/30/2024 1:15 PM EST Office Visit Hematology [place] [address] Jean-Pierre Peña MD [facility] DR HEMATOLOGY [place] [address] Vicky Burnham APRN [facility] [place] [address] 04/30/2024 2:30 PM EST Appointment Hematology [place] [address] 05/22/2024 11:30 AM EST Office Visit Dermatology at [facility] [address] [place] [address] Inderjit Vilchis MD [facility] DR GILBERTO [place] [address] documented as of this encounter Visit Diagnoses Not on filedocumented in this encounter Care Teams Seasonal Clerk Relationship Specialty Start Date End Date Taylor Bryant APRN [address] [place] [address] PCP - General 03/31/10 documented as of this encounter
--- OUTSIDE RECORDS SUMMARY | 2024-02-24 01:59 | XMS_ITS | Encounter Summary ---
Author Organization [facility] Address [facility] [place] [address] Care Team Providers Care Digital Campaign Specialist Name Role Phone Taylor Bryant APRN Primary Care Provider [phone] [phone] Encounter Details Date Type Department Care Team [...] in a chcf (including now)? No 07/24/2023 Sex and Gender Information Value Date Recorded Sex Assigned at Not on file Gender Identity Not on file Sexual Orientation Not on file documented as of this encounter Plan of Treatment Upcoming Encounters Date Type Department Care Team (Late st Contact Info) Description 02/27/2024 8:15 AM EDT TH Visit (TeleHealth) [place] [address] Jean-Pierre Peña MD [facility] HEMATOLOGY [place] [address] Vicky Burnham APRN [facility] [place] [address] 02/28/2024 11:30 AM EDT Infusion Hematology Oncology at [address] [address] 03/19/2024 12:45 PM EST Laboratory Appointment Lab at [facility] Hematology Oncology [address] [place] [address] 03/19/2024 1:45 PM EST Office Visit [place]ematology [place] [address] Jean-Pierre Peña MD [facility] HEMATOLOGY [place] [address] Vicky Burnham APRN [facility] [place] [address] 03/19/2024 3:30 PM EST Appointment Hematology [place] [address] 04/30/2024 12:15 PM EST Laboratory Appointment Lab at [facility] Hematology Oncology [address] [place] [address] 04/30/2024 1:15 PM EST Office Visit [place]ematology [place] [address] Jean-Pierre Peña MD [facility] DR HEMATOLOGY [place] [address] Vicky Burnham APRN [facility] [place] [address] 04/30/2024 2:30 PM EST Appointment Hematology [place] [address] 05/22/2024 11:30 AM EST Office Visit Dermatology at [facility] [address] [place] [address] Inderjit Vilchis MD [facility] DR GILBERTO [place] [address] documented as of this encounter Visit Diagnoses Not on filedocumented in this encounter Care Teams Digital Campaign Specialist Relationship Specialty Start Date End Date Taylor Bryant APRN [address] [place] [address] PCP - General 03/31/10 documented as of this encounter
--- OUTSIDE RECORDS SUMMARY | 2024-02-24 01:59 | XMS_ITS | Encounter Summary ---
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, unspecified lymph node region Procedures [id number] pembrolizumab (Keytruda) Jean-Pierre Peña MD [facility] DR HEMATOLOGY [place] [address] Jean-Pierre Peña MD [facility] DR HEMATOLOGY [place] [address] Referral ID Status Reason Start Date Expiration Date V isits Requested Visits Authorized [id number] Authorized 07/25/2023 07/24/2024 99 99 Encounter Details Date Type Department Care Team (Latest Contact Info) Description 08/23/2023 8:27 AM EDT - 08/23/2023 11:59 PM EDT Hospital Encounter Hematology [place] [address] Medication management; Malignant melanoma of scalp; 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 can call [phone] or [phone] with questions or concerns. After clinic hours (5pm-8am Tuesday-Tuesday and weekends) pt can call [phone] and ask for the clinical program manager/oncologist paper production engineer. Keeley Gutierrez verbalized understanding of potential chemotherapy [...] Everywhere. * Pembrolizumab Injection (PEMBROLIZUMAB - INJECTION) (Gabonese) documented in this encounter Medications at Time [...] clinic hours (8am-5pm Tuesday-Tuesday): pt. can call [phone] or [phone] with questions or concerns. After clinic hours (5pm-8am Tuesday-Tuesday and weekends) pt can call [phone] and ask for the clinical program manager/oncologist paper production engineer. Keeley Gutierrez verbalized understanding of potential chemotherapy [...] TH Visit (TeleHealth) Hematology [place] [address] Jean-Pierre Peña MD [facility] HEMATOLOGY [place] [address] Vicky Burnham APRN [facility] [place] [address] 02/28/2024 11:30 AM EDT Infusion Hematology Oncology at [address] [address] 03/19/2024 12:45 PM EST Laboratory Appointment Lab at [facility] Hematology Oncology [address] [place] [address] 03/19/2024 1:45 PM EST Office Visit Hematology [place] [address] Jean-Pierre ePña MD [facility] DR HEMATOLOGY [place] [address] Vicky Burnham APRN [facility] [place] [address] 03/19/2024 3:30 PM EST Appointment Hematology [place] [address] 04/30/2024 12:15 PM EST Laboratory Appointment Lab at [facility] Hematology Oncology [address] [place] [address] 04/30/2024 1:15 PM EST Office Visit Hematology [place] [address] Jean-Pierre Peña MD [facility] DR HEMATOLOGY [place] [address] Vicky Burnham APRN [facility] [place] [address] 04/30/2024 2:30 PM EST Appointment Hematology [place] [address] 05/22/2024 11:30 AM EST Office Visit Dermatology at [address] [place] [address] Inderjit Vilchis MD [facility] DR GILBERTO [place] [address] documented as of this encounter Results * Lactate Dehydrogenase (08/23/2023 8:33 AM EDT) Lactate Dehydrogenase 165 110 - 220 unit/L [facility] Blood 08/23/2023 8:33 AM EDT 08/23/2023 8:59 AM EDT Narrative Resulting Agency Comment Spec In Lab Jean-Pierre Peña MD CHEMISTRY ORDERABLES Performing Organization Address [facility] Co de Phone Number [facility] [place] [address] * T4, free (08/23/2023 8:33 AM EDT) Free T4 1.31 0.93 - 1.70 ng/dL [facility] Comment: Reference Interval (ng/dL): Females: ??First Trimester: 0.97-1.68 ??Second Trimester: 0.77-1.51 ??Third Trimester: 0.77-1.49 Blood 08/23/2023 8:33 AM EDT 08/23/2023 8:59 AM EDT Narrative Resulting Agency Comment Spec In Lab Jean-Pierre Peña MD CHEMISTRY ORDERABLES Performing Organization Address [facility]/ZIP Co de Phone Number [facility] [place] [address] * TSH (08/23/2023 8:33 AM EDT) Thyroid Stimulating Hormone 0.80 0.27 - 4.20 mcIU/mL [facility] Comment: Reference Interval (mcIU/mL): Females: ??First Trimester: 0.23-3.88 ??Second Trimester: 0.22-3.90 ??Third Trimester: 0.44-4.66 Blood 08/23/2023 8:33 AM EDT 08/23/2023 8:59 AM EDT Narrative Resulting Agency Comment Spec In Lab Jean-Pierre Peña MD CHEMISTRY ORDERABLES [facility] [place] [address] * (ABNORMAL) Comprehensive metabolic panel (non-fasting) (08/23/2023 8:33 AM EDT) Glucose 95 65 - 199 mg/dL [facility] Comment:Diabetes: >=200 mg/d L plus symptoms Blood Urea Nitrogen 20(H) 8 - 18 mg/dL [facility] Creatinine 0.95 0.70 - 1.20 mg/dL [facility] Sodium 141 135 - 145 mmol/L [facility] Potassium 4.5 3.5 - 5.0 mmol/L [facility] Comment: Please note: ??Patients with WBC >100,000 may have falsely elevated Potassium levels. ??For accurate Potassium quantification in these patients send serum separator tube (gold top) for subsequent determinations. ??Contact the Clinical Chemistry Laboratory if there are any questions. Chloride 106 98 - 107 mmol/L [facility] Carbon Dioxide 26 22 - 31 mmol/L [facility] Anion Gap 9 5 - 15 mmol/L [facility] Calcium 9.9 8.5 - 10.5 mg/dL [facility] Protein, Total 7.0 6.1 - 8.0 g/dL [facility] Albumin 4.5 3.2 - 5.2 g/dL [facility] Aspartate Aminotransferase 14 0 - 30 unit/L [facility] Alanine Aminotransferase 15 0 - 30 unit/L [facility] Alkaline Phosphatase 70 35 - 105 unit/L [facility] Bilirubin, Total 0.6 0.2 - 1.3 mg/dL [facility] Est Glomerular Filtration Rate 69 >=60 mL/min/1. 73 m?? [facility] Comment: This patient's estimated [...] In Lab Jean-Pierre Peña MD CHEMISTRY ORDERABLES [facility] [place] [address] documented in this encounter Visit Diagnoses Diagnosis [...] mL/hr documented in this encounter Care Teams Nurse Infection Control Relationship Specialty Start Date End Date Taylor Bryant APRN [address] [place] [address] PCP - General 03/31/10 documented as of this encounter
--- OUTSIDE RECORDS SUMMARY | 2024-02-24 01:59 | XMS_ITS | Encounter Summary ---
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, unspecified lymph node region Procedures IR Biopsy Lymph Node (Head/Neck) IR All Biopsy Procedures Jean-Pierre Peña MD [facility] [place] [address] [facility] [place] [address] Referral ID Status Reason Start Date Expiration Date V isits Requested Visits Authorized [id number] Closed Specialty Service Requested 07/25/2023 01/24/2025 1 1 Encounter Details Date Type Department Care Team (Latest Contact Info) Description 08/09/2023 7:42 AM EDT - 08/09/2023 11:59 PM EDT Hospital Encounter Radiology at [facility] [place] [address] Jean-Pierre Peña MD [facility] [address] [place] [address] Malignant melanoma of scalp; 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 Utilities Answer Date Recorded In the past 12 months has e [employer], gas, oil, or water [employer] threatened to shut off services in your [...] Capsule Take 40 mg by mouth daily. elderberry fruit 350 mg Capsule Take by mouth. 02/11/2024 Ibuprofen 200 mg Capsule Take 600 mg by mouth 2 times daily as needed. 09/16/2023 documented as of this encounter Plan of Treatment Upcoming Encounters Date Type Department Care Team (Late st Contact Info) Description 02/27/2024 8:15 AM EDT TH Visit (TeleHealth) [place]ematology [place] [address] Jean-Pierre Peña MD [facility] [place] [address] Vicky Burnham APRN [facility] [place] [address] 02/28/2024 11:30 AM EDT Infusion Hematology Oncology at [address] [address] 03/19/2024 12:45 PM EST Laboratory Appointment Lab at [facility] Hematology Oncology [address] [place] [address] 03/19/2024 1:45 PM EST Office Visit [place]ematology [place] [address] Jean-Pierre Peña MD [facility] [place] [address] Vicky Burnham APRN [facility] [place] [place] [address] 03/19/2024 3:30 PM EST Appointment [place]ematology [place] [address] 04/30/2024 12:15 PM EST Laboratory Appointment Lab at [facility] Hematology [address] [address] 04/30/2024 1:15 PM EST Office Visit [place]ematology [place] [address] Jean-Pierre Peña MD [facility] [place] [address] Vicky Burnham [facility] [place] [address] 04/30/2024 2:30 PM EST Appointment Hematology [place] [address] 05/22/2024 11:30 AM EST Office Visit Dermatology at [address] [address] Inderjit Vilchis MD [facility] DR [place] [address] documented as of this encounter Procedures Procedure Name Priority Date/Time Associated Diagnosis Comments IR BIOPSY LYMPH NODE (HEAD/NECK) Routine 08/09/2023 9:06 AM EDT 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 Reception Agent: Norm Evans M.D. Attending: Matty Mukherjee M.D. [...] who have questions please contact the health senior care specialist that requested your imaging first. ? Electronically signed by: Matty Mukherjee MD, [facility] ([phone]), at 08/09/2023 3:42 PM Narrative 08/09/2023 3:42 [...] of a RIGHT level Ib cervicalchain node. Reception Agent: Norm Evans M.D. Attending: Matty Mukherjee M.D. [...] the resident's interpretationand agree with the findings, Mtaty Mukherjee MD at 08/09/2023 3:42 PM Thank you for letting us participate in the care of this patient. If youare a health care provider and have any questions regarding this report,please contact the number below. For patients who have questions please contactthe health senior care specialist that requested your imaging first. Electronically signed by: Matty Mukherjee MD, [facility]([phone]), at 08/09/2023 3:42 PM Jean-Pierre Peña MD [facility] IR ORDERABLES * Non-Cut And Print Machine Operator Final Report (08/09/2023 8:55 AM EDT) Diagnosis Discussion [id number] ? Location: [facility] The signing pathologist has (i) examined the relevant preparation(s) for the specimen(s) and (ii) rendered or confirmed the diagnosis(es). . ? Non-Cut And Print Machine Operator Final DIAGNOSIS Negative for Malignancy Electronically signed by: ?Gianni ROBLES, Vicente Verified: ??08/11/2023 9:29 ?? Pathologist Performed at: ??-[facility] Dept. of Pathology, [place] [address] Supervisor Cured Meats: Johnnie Stephens MD, AP, ??CLIA Certificate: [id number] DISCUSSION Lymph node, right cervical chain (US-guided FNA): Lymphocytes are present, compatible with lymph node sampling. No overtly cytologically malignant cells seen. The material might not be fully medical field representative of the target lesion. Clinical and [...] Cell Block 1. 08/11/2023 9:29 AM EDT [facility] LYMPH NODE SPECIMEN / Unknown 08/09/2023 8:55 AM EDT 08/09/2023 8:55 AM EDT Matty Mukherjee MD PATHOLOGY/CYTOLOGY ORDERABLES Performing Organization Address [facility] Co de Phone Number [facility] [place] [address] * Cytopathology Non-Gynecological (08/09/2023 8:43 AM EDT) AP Specimen 08/09/2023 8:43 AM EDT 08/09/2023 8:43 AM EDT Narrative [facility] - 08/09/2023 8:43 AM EDT Specimen requisition ordered. 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
--- OUTSIDE RECORDS SUMMARY | 2024-02-24 01:59 | XMS_ITS | Encounter Summary ---
Author Organization [facility] Address [facility] [place] [address] Care Team Providers Care Special Education Paraeducator Name Role Phone Taylor Bryant APRN Primary Care Provider [phone] Reason for Visit * Reason Comments Follow-up Encounter Details Date Type Department Care Team ([facility] st Contact Info) Description 08/23/2023 9:30 AM EDT Office Visit Hematology [place] [address] Jean-Pierre Peña MD [facility] DR [place]Y [place] [address] Malignant melanoma of scalp (Primary Dx); Medication management; Immunotherapy; Secondary malignancy of soft tissue Social History Tobacco Use Types Packs/Day Years Used Date Smoking Tobacco: Former Smokeless Tobacco: Never Comments:quit at age 35 Alcohol Use Standard Drinks/Week Comments Yes 0 (1 standard drink = 0.6 oz pur e alcohol) social gatherings [facility] Utilities Answer Date Recorded In the past 12 months has [employer], gas, oil, or water [employer] threatened to shut off services in your [...] original note were not included. [facility] NOTE REFERING PHYSICIAN: DIAGNOSIS: Right occipital [...] TH Visit (TeleHealth) Hematology [place] [address] Jean-Pierre Peña MD [facility] HEMATOLOGY [place] [address] Vicky Burnham APRN [facility] [place] [address] 02/28/2024 11:30 AM EDT Infusion Hematology Oncology at [address] [address] 03/19/2024 12:45 PM EST Laboratory Appointment Lab at [facility] Hematology Oncology [address] [place] [address] 03/19/2024 1:45 PM EST Office Visit Hematology [place] [address] Jean-Pierre Peña MD [facility] [place]Y [place] [address] Vicky Burnham APRN [facility] [place] [address] 03/19/2024 3:30 PM EST Appointment Hematology [place] [address] 04/30/2024 12:15 PM EST Laboratory Appointment Lab at [facility] Hematology Oncology [address] [place] [address] 04/30/2024 1:15 PM EST Office Visit Hematology [place] [address] Jean-Pierre Peña MD [facility] DR [place] [address] Vicky Burnham APRN [facility] [place] [address] 04/30/2024 2:30 PM EST Appointment Hematology [place] [address] 05/22/2024 11:30 AM EST Office Visit Dermatology at [place] [address] [place] [address] Inderjit Vilchis MD [facility] DR GILBERTO [place] [address] documented as of this encounter Visit Diagnoses Diagnosis Malignant melanoma of scalp- Primary Malignant melanoma of skin of scalp and neck Medication management Encounter for long-term (current) use of other medications Immunotherapy Reserved for inherently not codable concepts WITHOUT codable children Secondary malignancy of soft tissue documented in this encounter Care Teams Special Education Paraeducator Relationship Specialty Start Date End Date Taylor Bryant APRN [address] [place] [address] PCP - General 03/31/10 documented as of this encounter
--- OUTSIDE RECORDS SUMMARY | 2024-02-24 01:59 | XMS_ITS | Encounter Summary ---
Author Organization [facility] Address [facility] [place] [address] Care Team Providers Care C Software Engineer Name Role Phone Taylor Bryant APRN Primary Care Provider [phone] Encounter Details Date Type Department Care Team (Latest Contact Info) Description 08/21/2023 Travel Social History Tobacco Use Types Packs/Day Years Used Date Smoking Tobacco: Former Smokeless Tobacco: Never Comments:quit at age 35 Alcohol Use Standard Drinks/Week Comments Yes 0 (1 standard drink = 0.6 oz pur e alcohol) social gatherings [facility] Utilities Answer Date Recorded In the [...] TH Visit (TeleHealth) [place] [address] Jean-Pierre Peña MD [facility] HEMATOLOGY AND [place] [address] Vicky Burnham APRN [facility] DR [facility] [place] [address] 02/28/2024 11:30 AM EDT Infusion Hematology Oncology at [address] [address] 03/19/2024 12:45 PM EST Laboratory Appointment Lab at [facility] Hematology Oncology [address] [place] [address] 03/19/2024 1:45 PM EST Office Visit [place]ematology [place] [address] Jean-Pierre Peña MD [facility] HEMATOLOGY AND [place] [address] Vicky Burnham APRN [facility] MEDICAL [place] [address] 03/19/2024 3:30 PM EST Appointment Hematology [place] [address] 04/30/2024 12:15 PM EST Laboratory Appointment Lab at [facility] Hematology Oncology [address] [place] [address] 04/30/2024 1:15 PM EST Office Visit [place]ematology [place] [address] Jean-Pierre Peña MD [facility] DR HEMATOLOGY AND [place] [address] Vicky Burnham APRN [facility] DR MEDICAL [place] [address] 04/30/2024 2:30 PM EST Appointment Hematology [place] [address] 05/22/2024 11:30 AM EST Office Visit Dermatology at [facility] [address] [place] [address] Inderjit Vilchis MD [facility] DR GILBERTO STERLING-DERMAT[place] [address] documented as of this encounter Visit Diagnoses Not on filedocumented in this encounter Care Teams C Software Engineer Relationship Specialty Start Date End Date Taylor Bryant APRN [address] [place] [address] PCP - General 03/31/10 documented as of this encounter
--- OUTSIDE RECORDS SUMMARY | 2024-02-24 01:59 | XMS_ITS | Encounter Summary ---
Author Organization [facility] Address [facility] [place] [address] Care Team Providers Care Supervisor Parking Lot Name Role Phone Taylor Bryant APRN Primary Care Provider [phone] Reason for Referral * Diagnostic Test (Routine) - Closed Specialty Diagnoses / Procedures Referred By Crista padron Referred To Contact Radiology Diagnoses Malignant melanoma of scalp Procedures NM Lymphoscintigraphy w Imaging Melanoma or Skin Cancer Castro Preciado MD [facility] [place] [address] [place] [address] Referral ID Status Reason Start Date Expiration Date V isits Requested Visits Authorized [id number] Closed Specialty Service Requested 08/18/2023 02/16/2025 1 1 Reason for Visit * Reason Comments Other She is here to talk to you about taking the cancer off her head. * Comprehensive Melanoma Consult (Routine) - Closed Specialty Diagnoses / Procedures Referred By Crista padron Referred To Contact Otolaryngology Diagnoses Malignant melanoma, unspecified site sent to KENZIE and Javed 08/02 Inderjit Vilchis MD [facility] DR GILB[place] [address] [facility] Otolaryngology [address] [place] [phone] Referral ID Status Reason Start Date Expiration Date V isits Requested Visits Authorized [id number] Closed Consult, Test & Treat 07/05/2023 07/04/2024 1 1 Encounter Details Date Type Department Care Team (Late st Contact Info) Description 08/18/2023 8:40 AM EDT Office Visit Otolaryngology at [facility] [place] [address] Castro Preciado MD [facility] [place] [address] Malignant melanoma of scalp (Primary Dx); Psoriatic [...] in a fci (including now)? No 07/24/2023 Sex and Gender [...] Resident Division of Otolaryngology-Head [place] [address] 08/18/23 8:44 AM ENT CONSULTATION- ATTENDING STAFF [...] for concerning disease. She was presented at melanoma and planswere dependent on his FNAB. A [...] case with Dr Peña. Castro Preciado MD, [facility] Attending Staff documented in this encounter Plan of Treatment Upcoming Encounters Date Type Department Care Team (Late st Contact Info) Description 02/27/2024 8:15 AM EDT TH Visit (TeleHealth) [place]ematology [place] [address] Jean-Pierre Peña MD [facility] DR [place] [address] Vicky Burnham APRN [facility] [place] [address] 02/28/2024 11:30 AM EDT Infusion Hematology Oncology at [address] [address] 03/19/2024 12:45 PM EST Laboratory Appointment Lab at [facility] Hematology Oncology [address] [place] [address] 03/19/2024 1:45 PM EST Office Visit Hematology [place] [address] Jean-Pierre Peña MD [facility] DR [place] [address] Vicky Burnham APRN [facility] [place] [place] [address] 03/19/2024 3:30 PM EST Appointment Hematology [place] [phone] 04/30/2024 12:15 PM EST Laboratory Appointment Lab at [facility] Hematology Oncology [address] [place] [address] 04/30/2024 1:15 PM EST Office Visit Hematology [place] [address] Jean-Pierre Peña MD [facility] DR [place] [address] Vicky Burnham APRN [facility] [place] [address] 04/30/2024 2:30 PM EST Appointment Hematology and Oncology at [facility] [place] [address] 05/22/2024 11:30 AM EST Office Visit Dermatology at [facility] [address] [place] [address] Inderjit Vilchis MD [facility] DR GILBERT[place] [address] documented as of this encounter Results * NM Lymphoscintigraphy w Imaging Melanoma or Skin Cancer (09/16/2023 9:54 AM EDT) WORKSTATION ID [id number] [facility] Anatomical Region Laterality Modality Nuclear Medicine Impressions 09/16/2023 12:37 PM EDT [place] lymph nodes in the right levels 2 and 5 regions as above. Thank you for letting us participate in the care of this patient. ??If you are a health care provider and have any questions regarding this report, please contact the number below. ??For patients who have questions please contact the health foster care case manager that requested your imaging first. ? [...] right level 5 (axial image 28). IMPRESSION [place] lymph nodes in the right levels 2 and 5 regions as above. Thank you for letting us participate in the care of this patient. If youare a health care provider and have any questions regarding this report,please contact the number below. For patients who have questions please contactthe health foster care case manager that requested your imaging first. Castro Preciado MD [facility] ORDERABLES documented in this encounter Visit Diagnoses Diagnosis Malignant melanoma of scalp- Primary Malignant melanoma of skin of scalp and neck Psoriatic arthritis Psoriatic arthropathy Malignant melanoma of scalp Malignant melanoma of skin of scalp and neck documented in this encounter Care Teams Supervisor Parking Lot Relationship Specialty Start Date End Date Taylor Bryant APRN [address] [place] [address] PCP - General 03/31/10 documented as of this encounter
--- OUTSIDE RECORDS SUMMARY | 2024-02-24 01:59 | XMS_ITS | Encounter Summary ---
Author Organization [facility] Address [facility] [place] [address] Care Team Providers Care General Operations Agent Name Role Phone Taylor Bryant APRN Primary Care Provider [phone] Reason for Visit * Reason Comments Prior Authorization Mekinist Encounter Details Date Type Department Care Team (Late st Contact Info) Description 08/23/2023 Special[address] at [facility] [place] [address] Cristiano Ruvalcaba, FRONT DESK MONITOR Social History Tobacco Use Types Packs/Day Years Used Date Smoking Tobacco: Former Smokeless Tobacco: Never Comments:quit at age 35 Alcohol Use Standard Drinks/Week Comments Yes 0 (1 standard drink = 0.6 oz pur e alcohol) social gatherings [facility] Utilities Answer Date Recorded In the [...] Notes * Cristiano Ruvalcaba P - 08/23/2023 11:19 AM EDT [facility], Benefits Investigation Patient: Keeley Gutierrez Patient : 1965 Patient Address: [address] [place] [address] (home) Medication Name: MEKINIST 2 MG TABLET Medication ID: Patient Location: [facility] HEM ONC 3K Patient Location Comment: Medication Strength Frequency Requested: Take one tablet by mouth daily Qty/Day Supply: New Start: New to Therapy Diagnosis & ICD-10 Code: 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 If applicable, a pharmacist will speak with the patient to offer our specialty pharmacy services and to arrange delivery of their medication. Cristiano Ruvalcaba 08/23/23 11:28 AM documented in this encounter Plan of Treatment Upcoming Encounters Date Type Department Care Team (Late st Contact Info) Description 02/27/2024 8:15 AM EDT TH Visit (TeleHealth) [place]ology [place] [address] Sharath Peña MD [facility] DR [place] [address] Vicky Burnham APRN [facility] [place] [address] 02/28/2024 11:30 AM EDT Infusion Hematology Oncology at [address] [address] 03/19/2024 12:45 PM EST Laboratory Appointment Lab at [facility] Hematology Oncology [address] [place] [address] 03/19/2024 1:45 PM EST Office Visit [place] [address] Sharath Peña MD [facility] DR [place] [address] Vicky Burnham [employer]TR[employer] EQUIPMENT OPERATOR [facility] [place] [address] 03/19/2024 3:30 PM EST Appointment [place]ematology [place] [address] 04/30/2024 12:15 PM EST Laboratory Appointment Lab at [facility] Hematology Oncology [address] [place] [address] 04/30/2024 1:15 PM EST Office Visit [place] [address] Sharath Peña MD [facility] DR [place] [address] Vicky Burnham APRN [facility] [place] [address] 04/30/2024 2:30 PM EST Appointment [place] [address] 05/22/2024 11:30 AM EST Office Visit Dermatology at [address] [phone] Inderjit Vilchis MD [facility] [place] [address] documented as of this encounter Visit Diagnoses Not on filedocumented in this encounter Care Teams General Operations Agent Relationship Specialty Start Date End Date Taylor Bryant APRN [address] [place] [address] PCP - General 03/31/10 documented as of this encounter
--- OUTSIDE RECORDS SUMMARY | 2024-02-24 01:59 | XMS_ITS | Encounter Summary ---
Author Organization [facility] Address [facility] [place] [address] Care Team Providers Care 3D Specialist Name Role Phone Taylor Bryant APRN Primary Care Provider [phone] Encounter Details Date Type Department Care Team ([facility] st Contact Info) Description 09/14/2023 Telephone Hematology [place] [phone] Roselyn Sánchez Social History Tobacco Use Types [...] in a fdc (including now)? No 07/24/2023 Sex and Gender Information Value Date Recorded Sex Assigned at Not on file Gender Identity Not on file Sexual Orientation Not on file documented as of this encounter Miscellaneous Notes * Telephone Encounter - Roselyn Sánchez - 09/14/2023 12:26 PM EDT Community Health Technology Specialist spoke to Keeley and sent [facility] food pantry order to [employer] for delivery on 10/03 at 3pm. Roselyn Sánchez documented in this encounter Plan of Treatment Upcoming Encounters Date Type Department Care Team (Late st Contact Info) Description 02/27/2024 8:15 AM EDT TH Visit (TeleHealth) Hematology [place] [address] Jean-Pierre Peña MD [facility] [place] [address] Vicky Burnham APRN [facility] [place] [address] 02/28/2024 11:30 AM EDT Infusion Hematology Oncology at [address] [address] 03/19/2024 12:45 PM EST Laboratory Appointment Lab at [facility] Hematology Oncology [address] [place] [address] 03/19/2024 1:45 PM EST Office Visit Hematology [place] [address] Jean-Pierre Peña MD [facility] [place] [address] Vicky Burnham APRN [facility] [place] [address] 03/19/2024 3:30 PM EST Appointment Hematology and Oncology at [place] [phone] 04/30/2024 12:15 PM EST Laboratory Appointment Lab at [address] [address] 04/30/2024 1:15 PM EST Office Visit Hematology [place] [address] Jean-Pierre Peña MD [facility] [place] [address] Vicky Burnham CLOSET BUILDER [facility] [place] [address] 04/30/2024 2:30 PM EST Appointment Hematology [place] [address] 05/22/2024 11:30 AM EST Office Visit Dermatology at [address] [phone] Inderjit Vilchis MD [facility] DR GILBERT[place] [address] documented as of this encounter Visit Diagnoses Not on filedocumented in this encounter Care Teams 3D Specialist Relationship Specialty Start Date End Date Taylor Bryant APRN [address] [place] [address] PCP - General 03/31/10 documented as of this encounter
--- OUTSIDE RECORDS SUMMARY | 2024-02-24 01:59 | XMS_ITS | Encounter Summary ---
Author Organization [facility] Address 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, unspecified lymph node region Procedures [id number] pembrolizumab (Keytruda) Jean-Pierre Peña MD [facility] DR HEMATOLOGY [place] [address] Jean-Pierre Peña MD [facility] DR [place]EMAT[place] [address] Referral ID Status Reason Start Date Expiration Date V isits Requested Visits Authorized [id number] Authorized 07/25/2023 07/24/2024 99 99 Encounter Details Date Type Department Care Team (Latest Contact Info) Description 09/12/2023 7:35 AM EDT - 09/12/2023 11:59 PM EDT Hospital Encounter [place]ematology [place] [address] Medication management; Malignant melanoma of scalp; 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, unspecified lymph node region Discharge Disposition: Home Social History Tobacco Use Types Packs/Day Years Used Date Smoking Tobacco: Former Smokeless Tobacco: Never Comments:quit at age 35 Alcohol Use Standard Drinks/Week Comments Yes 0 (1 standard drink = 0.6 oz pur e alcohol) social gatherings [facility] Utilities Answer Date Recorded In the past [...] No 07/24/2023 Housing Stability Vital Sign Answer Idrk e Recorded In the last 12 months, [...] TH Visit (TeleHealth) [place]ology [place] [address] Jean-Pierre Peña MD [facility] [place]ATOLOGY [place] [address] Vicky Burnham APRN [facility] [place] [address] 02/28/2024 11:30 AM EDT Infusion Hematology Oncology at [address] [address] 03/19/2024 12:45 PM EST Laboratory Appointment Lab at [facility] Hematology Oncology [address] [place] [address] 03/19/2024 1:45 PM EST Office Visit [place]ematology [place] [address] Jean-Pierre Peña MD [facility] DR [place]AT[place] [address] Vicky Burnham APRN [facility] [place] [address] 03/19/2024 3:30 PM EST Appointment Hematology [place] [address] 04/30/2024 12:15 PM EST Laboratory Appointment Lab at [facility] Hematology Oncology [address] [place] [address] 04/30/2024 1:15 PM EST Office Visit Hematology [place] [address] Jean-Pierre Peña MD [facility] HEMATOLOGY [place] [address] Vicky Burnham APRN [facility] [place] [address] 04/30/2024 2:30 PM EST Appointment Hematology [place] [address] 05/22/2024 11:30 AM EST Office Visit Dermatology at [facility] [address] [place] [address] Inderjit Vilchis MD [facility] DR GILBERTO [place] [address] documented as of this encounter Results * Lactate Dehydrogenase (09/12/2023 7:45 AM EDT) [facility] Lactate Dehydrogenase 187 110 - 220 unit/L [facility] Blood 09/12/2023 7:45 AM EDT 09/12/2023 8:01 AM EDT Narrative Resulting Agency Comment Spec In Lab Jean-Pierre Peña MD CHEMISTRY ORDERABLES [facility] [place] [address] * T4, free (09/12/2023 7:45 AM EDT) [facility] Free T4 1.32 0.93 - 1.70 ng/dL [facility] Comment: Reference Interval (ng/dL): Females: ??First Trimester: 0.97-1.68 ??Second Trimester: 0.77-1.51 ??Third Trimester: 0.77-1.49 Blood 09/12/2023 7:45 AM EDT 09/12/2023 8:01 AM EDT Narrative Resulting Agency Comment Spec In Lab Jean-Pierre Peña MD CHEMISTRY ORDERABLES [facility] [place] [address] * TSH (09/12/2023 7:45 AM EDT) Thyroid Stimulating Hormone 1.42 0.27 - 4.20 mcIU/mL [facility] Comment: Reference Interval (mcIU/mL): Females: ??First Trimester: 0.23-3.88 ??Second Trimester: 0.22-3.90 ??Third Trimester: 0.44-4.66 Blood 09/12/2023 7:45 AM EDT 09/12/2023 8:01 AM EDT Narrative Resulting Agency Comment Spec In Lab Jean-Pierre Peña MD CHEMISTRY ORDERABLES [facility] [place] [address] * (ABNORMAL) Comprehensive metabolic panel (non-fasting) (09/12/2023 7:45 AM EDT) Pathologist [facility] Glucose 88 65 - 199 mg/dL [facility] Comment:Diabetes: >=200 mg/d L plus symptoms Blood Urea Nitrogen 22(H) 8 - 18 mg/dL [facility] Creatinine 0.87 0.70 - 1.20 mg/dL [facility] Sodium 143 135 - 145 mmol/L [facility] Potassium 4.6 3.5 - 5.0 mmol/L [facility] Comment: Please note: ??Patients with WBC >100,000 may have falsely elevated Potassium levels. ??For accurate Potassium quantification in these patients send serum separator tube (gold top) for subsequent determinations. ??Contact the Clinical Chemistry Laboratory if there are any questions. Chloride 108(H) 98 - 107 mmol/L [facility] Carbon Dioxide 26 22 - 31 mmol/L [facility] Anion Gap 9 5 - 15 mmol/L [facility] Calcium 9.6 8.5 - 10.5 mg/dL [facility] Protein, Total 6.9 6.1 - 8.0 g/dL [facility] Albumin 4.3 3.2 - 5.2 g/dL [facility] Aspartate Aminotransferase 30 0 - 30 unit/L [facility] Alanine Aminotransferase 40(H) 0 - 30 unit/L [facility] Alkaline Phosphatase 94 35 - 105 unit/L [facility] Bilirubin, Total 0.5 0.2 - 1.3 mg/dL [facility] Est Glomerular Filtration Rate 77 >=60 mL/min/1. 73 m?? [facility] Comment: This patient's estimated GFR [...] In Lab Jean-Pierre Peña MD CHEMISTRY ORDERABLES [facility] [place] [address] documented in this encounter Visit Diagnoses Diagnosis [...] mL/hr documented in this encounter Care Teams Integrated Logistics Programs Director Relationship Specialty Start Date End Date Taylor Bryant APRN [address] [place] [address] PCP - General 03/31/10 documented as of this encounter
--- OUTSIDE RECORDS SUMMARY | 2024-02-24 01:59 | XMS_ITS | Encounter Summary ---
Author Organization [facility] Address [facility] [place] [address] Care Team Providers Care Vending Machine Repairer Name Role Phone Taylor Bryant APRN Primary Care Provider [phone] Encounter Details Date Type Department Care Team [...] TH Visit (TeleHealth) [place]ematology [place] [address] Jean-Pierre Peña MD [facility] [place] [address] Vicky Burnham APRN [facility] [place] [address] 02/28/2024 11:30 AM EDT Infusion Hematology Oncology at [address] [address] 03/19/2024 12:45 PM EST Laboratory Appointment Lab at [facility] [place]ematology Oncology [address] [place] [address] 03/19/2024 1:45 PM EST Office Visit [place]ematology [place] [address] Jean-Pierre Peña MD [facility] [place] [address] Vicky Burnham APRN [facility] [address] 03/19/2024 3:30 PM EST Appointment Hematology [place] [address] 04/30/2024 12:15 PM EST Laboratory Appointment Lab at [facility] Hematology Oncology [address] [place] [address] 04/30/2024 1:15 PM EST Office Visit [place]ematology [place] [address] Jean-Pierre Peña MD [facility] DR [place] [address] Vicky Burnham APRN [facility] [place] [address] 04/30/2024 2:30 PM EST Appointment Hematology [place] [address] 05/22/2024 11:30 AM EST Office Visit Dermatology at [facility] [address] [place] [address] Inderjit Vilchis MD [facility] DR GILBERT[place] [address] documented as of this encounter Visit Diagnoses Not on filedocumented in this encounter Care Teams Vending Machine Repairer Relationship Specialty Start Date End Date Taylor Bryant APRN [address] [place] [address] PCP - General 03/31/10 documented as of this encounter
--- OUTSIDE RECORDS SUMMARY | 2024-02-24 01:59 | XMS_ITS | Encounter Summary ---
Author Organization [facility] Address [facility] [place] [address] Care Team Providers Care Safety Administrator Name Role Phone Taylor Bryant APRN Primary Care Provider +1 [phone] Reason for Visit * Reason Comments Specialty Pharmacy Review Eugenet jazz alfonso Encounter Details Date Type Department Care Team (Late st Contact Info) Description 09/12/2023 Specialty Pharmacy Pharmacy at [facility] [place], [facility] [place] [phone] Tegan Mcnamara, STRAW HAT BRIM CUTTER OPERATOR Social History Tobacco Use Types Packs/Day [...] Mcnamara - 09/12/2023 11:59 PM EDT The [facility] has completed a benefits investigation for Keeley Gutierrez to review their eligibility to fill at [facility]. Per patient's medication list they are prescribed Mekinist 2mg tablet and the medication is able to be filled at the [facility]. The patient is eligible to fill the medication through Specialty pharmacy with a $0 copay. No PArequired. The patient is not starting therapy at this time. documented in this encounter Plan of Treatment Upcoming Encounters Date Type Department Care Team (Late st Contact Info) Description 02/27/2024 8:15 AM EDT TH Visit (TeleHealth) [place] [address] Jean-Pierre Peña MD [facility] [address] [place] [address] Vicky Burnham APRN [facility] [place] [place] [address] 02/28/2024 11:30 AM EDT Infusion Hematology Oncology at [address] [address] 03/19/2024 12:45 PM EST Laboratory Appointment Lab at [facility] Hematology Oncology [address] [place] [address] 03/19/2024 1:45 PM EST Office Visit Hematology [place] [phone] Jean-Pierre Peña MD [facility] [address] [place] [address] Vicky Burnham APRN [facility] [place] [place] [address] 03/19/2024 3:30 PM EST Appointment Hematology [place] [address] 04/30/2024 12:15 PM EST Laboratory Appointment Lab at [facility] Hematology Oncology [address] [place] [address] 04/30/2024 1:15 PM EST Office Visit Hematology [place] [phone] Jean-Pierre Peña MD [facility] [address] [place] [address] Vicky Burnham APRN [facility] [place] [place] [address] 04/30/2024 2:30 PM EST Appointment Hematology [place] [address] 05/22/2024 11:30 AM EST Office Visit Dermatology at [address] [phone] Inderjit Vilchis MD [facility] DR GILBERT[place] [address] documented as of this encounter Visit Diagnoses Not on filedocumented in this encounter Care Teams Safety Administrator Relationship Specialty Start Date End Date Taylor Bryant APRN [address] [place] [address] PCP - General 03/31/10 documented as of this encounter
--- OUTSIDE RECORDS SUMMARY | 2024-02-24 01:59 | XMS_ITS | Encounter Summary ---
Author Organization [facility] Address [facility] [place] [address] Care Team Providers Care Parking Inspector Name Role Phone Taylor Bryant APRN Primary Care Provider [phone] [phone] Encounter Details Date Type Department Care Team [...] TH Visit (TeleHealth) Hematology [place] [address] Jean-Pierre Peña MD [facility] [place] [address] Vicky Burnham APRN [facility] [place] [address] 02/28/2024 11:30 AM EDT Infusion Hematology Oncology at [address] [address] 03/19/2024 12:45 PM EST Laboratory Appointment Lab at [facility] Hematology Oncology [address] [place] [address] 03/19/2024 1:45 PM EST Office Visit Hematology [place] [address] Jean-Pierre Peña MD [facility] [place] [address] Vicky Burnham APRN [facility] [place] [address] 03/19/2024 3:30 PM EST Appointment Hematology [place] [address] 04/30/2024 12:15 PM EST Laboratory Appointment Lab at [facility] Hematology Oncology [address] [place] [address] 04/30/2024 1:15 PM EST Office Visit Hematology [place] [address] Jean-Pierre Peña MD [facility] DR [place] [address] Vicky Burnham APRN [facility] [place] [address] 04/30/2024 2:30 PM EST Appointment Hematology [place] [address] 05/22/2024 11:30 AM EST Office Visit Dermatology at [facility] [address] [place] [address] Inderjit Vilchis MD [facility] DR GILBERTO [place] [address] documented as of this encounter Visit Diagnoses Not on filedocumented in this encounter Care Teams Parking Inspector Relationship Specialty Start Date End Date Taylor Bryant APRN [address] [place] [address] PCP - General 03/31/10 documented as of this encounter
--- OUTSIDE RECORDS SUMMARY | 2024-02-24 01:59 | XMS_ITS | Encounter Summary ---
Author Organization [facility] Address [facility] [place] [address] Care Team Providers Care Control Clerk Subassembly Name Role Phone Taylor Bryant APRN Primary Care Provider [phone] [phone] Encounter Details Date Type Department Care Team ([facility] st Contact Info) Description 08/05/2023 Patient Outreach Hematology [place] [address] Roselyn Sánchez Social History Tobacco Use Types Packs/Day Years Used Date Smoking Tobacco: Former Smokeless Tobacco: Never Comments:quit at age 35 Alcohol Use Standard Drinks/Week Comments Yes 0 (1 standard drink = 0.6 oz pur e alcohol) social gatherings [facility] Utilities Answer Date Recorded In the [...] - 08/05/2023 10:30 AM EDT Community [facility] Name Plate Stamper spoke to Keeley today to review her responses to the SDOH+ screening. Keeley lives on a fixed income and she barely makes ends meet each month. She gets $140 in food stamps. She said that is enough for her. She also receives fuel assistance. She owns her trailer but pays for lot rent. I offered food pantry from the [facility],at this time she declined. I also offered [...] TH Visit (TeleHealth) Hematology [place] [address] Jean-Pierre Peña MD [facility] [place] [address] Vicky Bunrham APRN [facility] [place] [address] 02/28/2024 11:30 AM EDT Infusion Hematology Oncology at [address] [address] 03/19/2024 12:45 PM EST Laboratory Appointment Lab [place] [facility] [place] [address] [address] 03/19/2024 1:45 PM EST Office Visit Hematology [place] [address] Jean-Pierre Peña MD [facility] [address] [place] [address] Vicky Burnham APRN [facility] [place] [address] 03/19/2024 3:30 PM EST Appointment Hematology [place] [address] 04/30/2024 12:15 PM EST Laboratory Appointment Lab [place] [facility] [place] On[place] [address] [place] [address] 04/30/2024 1:15 PM EST Office Visit Hematology [place] [address] Jean-Pierre Peña MD [facility] [place] [address] Vicky Burnham APRN [facility] [place] [address] 04/30/2024 2:30 PM EST Appointment Hematology and Oncology at [facility] [place] [address] 05/22/2024 11:30 AM EST Office Visit Dermatology at [facility] [address] [place] [address] Inderjit Vilchis MD [facility] DR GILBERT[place] [address] documented as of this encounter Visit Diagnoses Not on filedocumented in this encounter Care Teams Control Clerk Subassembly Relationship Specialty Start Date End Date Taylor Bryant APRN [address] [place] [address] PCP - General 03/31/10 documented as of this encounter
--- OUTSIDE RECORDS SUMMARY | 2024-02-24 01:59 | XMS_ITS | Encounter Summary ---
Author Organization [facility] Address [facility] [place] [address] Care Team Providers Care Human Projectile Name Role Phone Taylor Bryant APRN Primary Care Provider [phone] [phone] Encounter Details Date Type Department Care Team ([facility] st Contact Info) Description 09/06/2023 2:30 PM EDT Office Visit Dermatology at [facility] [address] [place] [address] Inderjit Argueta MD [facility] DR GILBERTO [place] [address] Malignant melanoma, unspecified site Social History Tobacco Use Types Packs/Day Years Used Date Smoking Tobacco: Former Smokeless Tobacco: Never Comments:quit at age 35 Alcohol Use Standard Drinks/Week Comments Yes 0 (1 standard drink = 0.6 oz pur e alcohol) social gatherings [facility] Utilities Answer Date Recorded In the past 12 months has e electric, gas, oil, or water [employer] threatened to shut off services in your [...] in a halfway (including now)? 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 I performed the above scribed service and agree with the accuracy of the documentation in this encounter. Reviewed and signed by: INDERJIT ARGUETA MD Dermatology [facility] documented in this encounter Plan of Treatment Upcoming Encounters Date Type Department Care Team (Late st Contact Info) Description 02/27/2024 8:15 AM EDT TH Visit (TeleHealth) [place] [address] Jean-Pierre Peña MD [facility] DR HEMATOLOGY [place] [address] Vicky Burnham APRN [facility] [place] [address] 02/28/2024 11:30 AM EDT Infusion Hematology Oncology at [address] [address] 03/19/2024 12:45 PM EST Laboratory Appointment Lab at [facility] Hematology Oncology [address] [place] [address] 03/19/2024 1:45 PM EST Office Visit Hemat[place] [address] Jean-Pierre Peña MD [facility] DR HEMATOLOGY [place] [address] Vicky Burnham APRN [facility] [place] [address] 03/19/2024 3:30 PM EST Appointment Hematology and Oncology at [place] [phone] 04/30/2024 12:15 PM EST Laboratory Appointment Lab at [facility] Hematology [address] [address] 04/30/2024 1:15 PM EST Office Visit [place]emat[place] [address] Jean-Pierre Peña MD [facility] DR HEMATOLOGY [place] [address] Vicky Burnham TELLER SUPERVISOR [facility] [place] [address] 04/30/2024 2:30 PM EST Appointment Hematology [place] [address] 05/22/2024 11:30 AM EST Office Visit Dermatology at [address] [place] [address] Inderjit Argueta MD [facility] DR GILBERTO [place] [address] documented as of this encounter Visit Diagnoses Diagnosis Malignant melanoma, unspecified site documented in this encounter Care Teams Human Projectile Relationship Specialty Start Date End Date Taylor Bryant APRN [address] [place] [address] PCP - General 03/31/10 documented as of this encounter
--- OUTSIDE RECORDS SUMMARY | 2024-02-24 02:00 | XMS_ITS | Encounter Summary ---
Author Organization [facility] Address [facility] [place] [address] Care Team Providers Care Java Web Architect Name Role Phone Taylor Bryant APRN Primary Care Provider [phone] [phone] Encounter Details Date Type Department Care Team (Latest Contact Info) Description 08/01/2023 Travel Social History Tobacco Use Types Packs/Day Years Used Date Smoking Tobacco: Former Smokeless Tobacco: Never Comments:quit at age 35 Alcohol Use Standard Drinks/Week Comments Yes 0 (1 standard drink = 0.6 oz pur e alcohol) social gatherings [facility] Utilities Answer Date Recorded In the [...] TH Visit (TeleHealth) [place]ematology [place] [address] Jean-Pierre Peña MD [facility] HEMATOLOGY [place] [address] Vicky Burnham APRN [facility] [place] [address] 02/28/2024 11:30 AM EDT Infusion Hematology Oncology at [address] [address] 03/19/2024 12:45 PM EST Laboratory Appointment Lab at [facility] Hematology Oncology [address] [place] [address] 03/19/2024 1:45 PM EST Office Visit Hematology [place] [address] Jean-Pierre Peña MD [facility] [place]EMAT[place] [address] Vicky Burnham APRN [facility] [place] [address] 03/19/2024 3:30 PM EST Appointment Hematology [place] [address] 04/30/2024 12:15 PM EST Laboratory Appointment Lab at [facility] Hematology Oncology [address] [place] [address] 04/30/2024 1:15 PM EST Office Visit [place]ematology [place] [address] Jean-Pierre Peña MD [facility] DR [place] [address] Vicky Burnham APRN [facility] [place] [address] 04/30/2024 2:30 PM EST Appointment Hematology [place] [address] 05/22/2024 11:30 AM EST Office Visit Dermatology at [facility] [address] [place] [address] Inderjit Vilchis MD [facility] DR GILBERTO [place] [address] documented as of this encounter Visit Diagnoses Not on filedocumented in this encounter Care Teams Java Web Architect Relationship Specialty Start Date End Date Taylor Bryant APRN [address] [place] [address] PCP - General 03/31/10 documented as of this encounter
--- OUTSIDE RECORDS SUMMARY | 2024-02-24 02:00 | XMS_ITS | Encounter Summary ---
Author Organization [facility] Address [facility] [place] [address] Care Team Providers Care Sales And Marketing Assistant Name Role Phone AnnetteTaylor ZARA Primary Care Provider [phone] [phone] Reason for Visit * Diagnostic Test (Routine) - Closed Specialty Diagnoses / Procedures Referred By Crista t Referred To Contact Radiology Diagnoses Malignant melanoma, unspecified site Procedures MRI Brain wwo Contrast (Generic) Neida Luong APRN [facility] DR HEMATOLOGY [place] [address] [facility] [place] [address] Referral ID Status Reason Start Date Expiration Date V isits Requested Visits Authorized [id number] Closed Specialty Service Requested 07/19/2023 01/18/2025 1 1 Encounter Details Date Type Department Care Team (Late st Contact Info) Description 08/01/2023 7:23 AM EDT - 08/01/2023 11:59 PM EDT [place] [address] Neida Luong APRN [facility] HEMATOLOGY [place] [address] Discharge Disposition: Home Social History Tobacco Use Types Packs/Day Years Used Date Smoking Tobacco: Former Smokeless Tobacco: Never Comments:quit at age 35 Alcohol Use Standard Drinks/Week Comments Yes 0 (1 standard drink = 0.6 oz pur e alcohol) social gatherings [facility] Utilities Answer Date Recorded In the past 12 months has [employer], oil, or water [employer] threatened to shut off services in your [...] TH Visit (TeleHealth) [place] [address] Jean-Pierre Peña MD [facility] HEMATOLOGY [place] [address] Vicky Burnham APRN [facility] [place] [address] 02/28/2024 11:30 AM EDT Infusion Hematology Oncology at [address] [address] 03/19/2024 12:45 PM EST Laboratory Appointment Lab at [facility] Hematology Oncology [address] [place] [address] 03/19/2024 1:45 PM EST Office Visit Hematology [place] [address] Jean-Pierre Peña MD [facility] DR HEMATOLOGY [place] [address] Vicky Burnham APRN [facility] [place] [address] 03/19/2024 3:30 PM EST Appointment Hematology [place] [address] 04/30/2024 12:15 PM EST Laboratory Appointment Lab at [facility] Hematology Oncology [address] [place] [address] 04/30/2024 1:15 PM EST Office Visit [place]ematology [place] [address] Jean-Pierre Peña MD [facility] HEMATOLOGY [place] [address] Vicky Burnham APRN [facility] [place] [address] 04/30/2024 2:30 PM EST Appointment Hematology and Oncology at [facility] [place] [address] 05/22/2024 11:30 AM EST Office Visit Dermatology at [facility] [address] [place] [address] Inderjit Vilchis MD [facility] DR GILBERTO [place] [address] documented as of this encounter Procedures Procedure [...] Intravenous, ONCE PRN, 1 dose, Starting on 08/01/23 at 0923, Until Tue08/01/23 at 0927, Per Protocol, Radiology Contrast, Routine Given 08/01/2023 9:27 AM EDT 13 mLs documented in this encounter Care Teams Sales And Marketing Assistant Relationship Specialty Start Date End Date Taylor Bryant APRN [address] [place] [address] PCP - General 03/31/10 documented as of this encounter
--- OUTSIDE RECORDS SUMMARY | 2024-02-24 02:00 | XMS_ITS | Encounter Summary ---
Author Organization [facility] [place] [address] Care Team Providers Care Plant Care Worker Name Role Phone Taylor Bryant ZARA Primary Care Provider [phone] [phone] Encounter Details Date Type Department Care Team (Late st Contact Info) Description 08/21/2021 Interpretation Only [address] [address] Jorge Luis Galicia MD [address] [place] [address] Social History Tobacco Use Types Packs/Day [...] TH Visit (TeleHealth) Hematology [place] [address] Jean-Pierre Peña MD [facility] DR HEMATOLOGY [place] [address] Vicky Burnham APRN [facility] [place] [address] 02/28/2024 11:30 AM EDT Infusion Hematology Oncology at [address] [address] 03/19/2024 12:45 PM EST Laboratory Appointment Lab at [facility] Hematology Oncology [address] [place] [address] 03/19/2024 1:45 PM EST Office Visit Hematology [place] [address] Jean-Pierre Peña MD [facility] DR HEMATOLOGY [place] [address] Vicky Burnham APRN [facility] [place] [address] 03/19/2024 3:30 PM EST Appointment Hematology [place] [address] 04/30/2024 12:15 PM EST Laboratory Appointment Lab at [facility] Hematology Oncology [address] [place] [address] 04/30/2024 1:15 PM EST Office Visit Hematology [place] [address] Jean-Pierre Peña MD [facility] DR HEMATOLOGY [place] [address] Vicky Burnham PREFINISH OPERATOR [facility] [place] [address] 04/30/2024 2:30 PM EST Appointment Hematology [place] [address] 05/22/2024 11:30 AM EST Office Visit Dermatology at [address] [address] Inderjit Vilchis MD [facility] [place] [address] documented as of this encounter Procedures Procedure Name Priority Date/Time Associated Diagnosis Comments XR HAND MIN 3 VIEWS LEFT Routine 08/21/2021 10:40 AM EDT documented in this encounter Results * XR Hand Min 3 views Left (Generic) (08/21/2021 10:40 AM EDT) PT CLASS O RAD ADMITDTTM RAD PT RAD INFO [id number]^F ORCIER^JORGE LUIS RAD EXAM DESC [id number]^XR LEFT [...] have questions please contact the health rn coronary care unit that requested your imaging first. ? Electronically signed by: Freedom Gonzáles MD, Radiology [place] ([phone]), at 08/21/2021 11:00 AM Narrative 08/21/2021 11:00 [...] who have questions please contactthe health rn coronary care unit that requested your imaging first. Jorge Luis Galicia MD IMG DX ORDERABLES documented in this encounter Visit Diagnoses Not on filedocumented in this encounter Care Teams Plant Care Worker Relationship Specialty Start Date End Date Taylor Bryant APRN [address] [place] [address] PCP - General 03/31/10 documented as of this encounter
--- OUTSIDE RECORDS SUMMARY | 2024-02-24 02:00 | XMS_ITS | Encounter Summary ---
Author Organization [facility] Address [facility] [place] [address] Care Team Providers Care Logistics Engineer Name Role Phone Taylor Bryant APRN Primary Care Provider [phone] [phone] Encounter Details Date Type Department Care Team (Latest Contact Info) Description 07/14/2023 12:09 PM EST - 07/14/2023 11:59 PM EST Hospital Encounter [place] [address] Discharge Disposition: Home Social History Tobacco Use [...] Upcoming Encounters Date Type Department Care Team ( Contact Info) Description 02/27/2024 8:15 AM EDT TH Visit (TeleHealth) Hematology [place] [phone] Jean-Pierre Peña MD [facility] [place] [address] Vicky Burnham APRN [facility] [place] [address] 02/28/2024 11:30 AM EDT Infusion Hematology Oncology at [address] [address] 03/19/2024 12:45 PM EST Laboratory Appointment Lab at [facility] Hematology [address] [address] 03/19/2024 1:45 PM EST Office Visit Hematology [place] [address] Jean-Pierre Peña MD [facility] DR [place] [address] Vicky Burnham APRN [facility] [place] [address] 03/19/2024 3:30 PM EST Appointment Hematology [place] [address] 04/30/2024 12:15 PM EST Laboratory Appointment Lab at [facility] Hematology [address] [address] 04/30/2024 1:15 PM EST Office Visit Hematology [place] [phone] Jean-Pierre Peña MD [facility] [place] [address] Vicky Burnham APRN [facility] [place] [address] 04/30/2024 2:30 PM EST Appointment Hematology and Oncology at [facility] [place] [address] 05/22/2024 11:30 AM EST Office Visit Dermatology at [facility] [address] [place] [address] Inderjit Vilchis MD [facility] DR GILBERTO [place] [address] documented as of this encounter Procedures Procedure Name Priority Date/Time Associated Diagnosis Comments SURGICAL PATHOLOGY REPORT Routine 07/14/2023 12:09 PM EST documented in this encounter Results * (ABNORMAL) Surgical Pathology Report (07/14/2023 12:09 PM EST) Final Diagnosis [id number] ? Location: OPW The signing pathologist has (i) examined the relevant preparation(s) for the specimen(s) and (ii) rendered or confirmed the diagnosis(es). . ?Molecular Genetics RESULTS TARGETED BRAF AND NRAS VARIANT ANALYSIS INDICATION FOR STUDY: Invasive Melanoma SPECIMEN: Tissue case/block [id number] containing approximately 60% tumor cells in the [...] tissue section was introduced directly into the SideTour NRAS-BRAF cartridge where DNA extraction, real time [...] Genomics and Advanced Technology (CGAT) Laboratory at [facility]. It has not been cleared or approved by the FDA. The laboratory is regulated under CLIA as qualified to perform high-complexity testing. This test is used for clinical purposes. It should not be regarded as investigational or for research. . RESULTS REFERENCES: Jason DB, et al. Clin Cancer Res 2014 ?;20:0874-2989 (PMID:23565016) Sae EI, et al. Trends Cancer 2016 ? ;2:305-312 (PMID:87907186) Vj JL, et al. Agata Rev Clin Oncol 2017 ?;14:463-482 (PMID:74616328) _ Electronically signed by: ?Yasmany PhD, Alvarado Zapata Verified: ??08/04/2023 6:50 ?? Director, Molecular Pathology Performed at: ??-[facility] Dept. of Pathology, [place] [address] Wood Carver Hand: Johnnie Stephens MD, FCAP, ??CLIA Certificate: [id number] ?Surgical Pathology DIAGNOSIS CONSULTATION CASE Outside slide(s) labeled [id number], collection date 06/21/2023. Right parietal scalp, skin punch biopsy: - Invasive melanoma, non-ulcerated, Breslow depth of 1.5 mm, present at the peripheral specimen edges (see synoptic report) Electronically signed by: ?Patrcik ROBLES, PhD, Ladarius Sims Verified: ??07/15/2023 15:20 [address], Bone & Soft Tissue Pathologist Performed at: ??-[facility] Dept. of Pathology, [place] [address] Wood Carver Hand: Johnnie Stephens MD, FCAP, ??CLIA Certificate: [id number] SYNOPTIC Specimen ? Procedure: ??Biopsy, punch ? [...] Edition) ? pT Category: ??pT2a ? CAP [facility] 2021 Q1 Release DISCUSSION I agree with the diagnosis rendered at the outside institution. THIS RESULT REQUIRES PHYSICIAN/A.P.P. FOLLOW UP SPECIMEN(S) SUBMITTED CONSULTATION CASE A - 1 slide(s) labeled [id number], collection date 06/21/2023. [id number] CARBON COPY: [facility] [address] [facility], [address] . SPECIMEN([place]) [place] [address] P: [phone] F: [phone] CLINICAL INFORMATION Lesion SPECIMEN PROCESSING [facility] pathology slide(s) are reviewed. Refer to Diagnosis and Specimen Submitted for specific case information. For the full text of the [facility] report(s) please refer to the Chart Review Media tab in the electronic health record (eDH).(A) 08/04/2023 6:50 AM EDT [facility] Consult Case 07/14/2023 12:0 9 PM EST 07/14/2023 12:09 PM EST Inderjit Vilchis MD PATHOLOGY/CYTOL OGY ORDERABLES [facility] [place] [address] documented in this encounter Visit Diagnoses Not on filedocumented in this encounter Care Teams Logistics Engineer Relationship Specialty Start Date End Date Taylor Bryant APRN [address] [place] [address] PCP - General 03/31/10 documented as of this encounter
--- OUTSIDE RECORDS SUMMARY | 2024-02-24 02:00 | XMS_ITS | Encounter Summary ---
Author Organization [facility] Address [facility] [place] [address] Care Team Providers Care Grout Worker Name Role Phone Taylor Bryant ZARA Primary Care Provider [phone] Encounter Details Date Type Department Care Team (Latest Contact Info) Description 07/04/2023 4:00 PM EST TH Visit (TeleHealth) Dermatology at [facility] [address] [place] [address] Inderjit Argueta MD [facility] DR GILBERTO [place] [address] Malignant melanoma, unspecified site Social History Tobacco [...] DEPARTMENT OF DERMATOLOGY Medical Dermatology Clinic Provider: INDREJIT ARGUETA MD Patient verbally consents to this [...] history no Social History 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 -Reviewed path from [place] with patient today -Reviewed pathophysiology and goal of treatment -Joint decision to review at Melanoma tumor board then decide on treatment plan -Emphasized a step approach to treatment , Tumor Board input, ? Jose R adjuvant vs. Traditional. Other: N/A RTC: after presentation to the tumor board []Note routed to elementary secretary []Recall placed in scheduling system []Appointment scheduled at checkout Scribe attestation: Josee Krishnamurthy LPN has performed the documentation for this encounter in the presence of and acting as a scribe for INDERJIT ARGUETA MD. I performed the above scribed service and agree with the accuracy of the documentation in this encounter. Reviewed and signed by: INDERJIT ARGUETA MD Dermatology [facility] documented in this encounter Plan of Treatment Upcoming Encounters Date Type Department Care Team (Late st Contact Info) Description 02/27/2024 8:15 AM EDT TH Visit (TeleHealth) Hematology [place] [address] Jean-Pierre Peña MD [facility] [address] [place] [address] Vicky Burnham APRN [facility] [place] [address] 02/28/2024 11:30 AM EDT Infusion Hematology Oncology at [address] [address] 03/19/2024 12:45 PM EST Laboratory Appointment Lab at [facility] Hematology Oncology [address] [place] [address] 03/19/2024 1:45 PM EST Office Visit Hematology [place] [address] Jean-Pierre Peña MD [facility] [address] [place] [address] Vicky Burnham [employer] [facility] [place] [address] 03/19/2024 3:30 PM EST Appointment Hematology [place] [address] 04/30/2024 12:15 PM EST Laboratory Appointment Lab at [facility] Hematology Oncology [address] [place] [address] 04/30/2024 1:15 PM EST Office Visit Hematology [place] [address] Jean-Pierre Peña MD [facility] [address] [place] [address] Vicky Burnham APRN [facility] [place] [address] 04/30/2024 2:30 PM EST Appointment Hematology [place] [address] 05/22/2024 11:30 AM EST Office Visit Dermatology at [address] [phone] Inderjit Argueta MD [facility] [place] [address] documented as of this encounter Visit Diagnoses Diagnosis Malignant melanoma, unspecified site documented in this encounter Care Teams Grout Worker Relationship Specialty Start Date End Date Taylor Bryant APRN [address] [place] [address] PCP - General 03/31/10 documented as of this encounter
--- OUTSIDE RECORDS SUMMARY | 2024-02-24 02:00 | XMS_ITS | Encounter Summary ---
Author Organization [facility] Address [facility] [place] [address] Care Team Providers Care Eeo Officer Name Role Phone Taylor Bryant ZARA Primary Care Provider [phone] [phone] Encounter Details Date Type Department Care Team [...] TH Visit (TeleHealth) Hematology [place] [address] Jean-Pierre Peña MD [facility] [address] [place] [address] Vicky Burnham APRN [facility] [place] [address] 02/28/2024 11:30 AM EDT Infusion Hematology Oncology at [address] [address] 03/19/2024 12:45 PM EST Laboratory Appointment Lab at [facility] Hematology Oncology [address] [place] [address] 03/19/2024 1:45 PM EST Office Visit Hematology [place] [address] Jean-Pierre Peña MD [facility] [address] [place] [address] Vicky Burnham APRN [facility] [place] [address] 03/19/2024 3:30 PM EST Appointment Hematology and Oncology at [place] [phone] 04/30/2024 12:15 PM EST Laboratory Appointment Lab at [facility] Hematology [address] [address] 04/30/2024 1:15 PM EST Office Visit Hematology [place] [address] Jean-Pierre Peña MD [facility] [address] [place] [address] Vicky Burnham APRN [facility] [place] [address] 04/30/2024 2:30 PM EST Appointment Hematology [place] [address] 05/22/2024 11:30 AM EST Office Visit Dermatology at [address] [phone] Inderjit Vilchis MD [facility] [address] GILBERTO [place] [address] documented as of this encounter Visit Diagnoses Not on filedocumented in this encounter Care Teams Eeo Officer Relationship Specialty Start Date End Date Taylor Bryant APRN [address] [place] [address] PCP - General 03/31/10 documented as of this encounter
--- OUTSIDE RECORDS SUMMARY | 2024-02-24 02:00 | XMS_ITS | Encounter Summary ---
Author Organization [facility] Address [facility] [place] [address] Care Team Providers Care Salmon Troll Fisher Name Role Phone Taylor Bryant APRN Primary Care Provider [phone] [phone] Encounter Details Date Type Department Care Team ([facility] st Contact Info) Description 07/13/2023 Telephone Dermatology at [facility] [address] [place] [address] Inderjit Vilchis MD [facility] DR GILBERTO [place] [address] Social History Tobacco Use Types Packs/Day Years [...] she had on Tuesday. Please call backat [phone]. documented in this encounter Plan of Treatment Upcoming Encounters Date Type Department Care Team (Late st Contact Info) Description 02/27/2024 8:15 AM EDT TH Visit (TeleHealth) [place] [address] Jean-Pierre Peña MD [facility] [place] [address] Vicky Burnham APRN [facility] [place] [address] 02/28/2024 11:30 AM EDT Infusion Hematology Oncology at [address] [address] 03/19/2024 12:45 PM EST Laboratory Appointment Lab at [facility] Hematology Oncology [address] [place] [address] 03/19/2024 1:45 PM EST Office Visit [place]ematology [place] [address] Jean-Pierre Peña MD [facility] [place] [address] Vicky Burnham APRN [facility] [place] [address] 03/19/2024 3:30 PM EST Appointment Hematology [place] [address] 04/30/2024 12:15 PM EST Laboratory Appointment Lab at [facility] Hematology Oncology [address] [place] [address] 04/30/2024 1:15 PM EST Office Visit Hematology and Oncology at [place] [phone] Jean-Pierre Peña MD [facility] DR [place] [address] Vicky Burnham [facility] [place] [address] 04/30/2024 2:30 PM EST Appointment [place]ematology [place] [address] 05/22/2024 11:30 AM EST Office Visit Dermatology at [address] [address] Inderjit Vilchis MD [facility] DR GILBERT[place] [address] documented as of this encounter Visit Diagnoses Not on filedocumented in this encounter Care Teams Salmon Troll Fisher Relationship Specialty Start Date End Date Taylor Bryant APRN [address] [place] [address] PCP - General 03/31/10 documented as of this encounter
--- OUTSIDE RECORDS SUMMARY | 2024-02-24 02:00 | XMS_ITS | Encounter Summary ---
Author Organization Replaced By [facility] Address [facility] [place] [address] Care Team Providers Care Ceramic Worker Name Role Phone Taylor Bryant APRN Primary Care Provider [phone] [phone] Reason for Visit * Reason Comments Specialty Pharmacy Review etanercept (EN BREL) 50 mg/mL (0.98 mL) Encounter Details Date Type Department Care Team (Late st Contact Info) Description 07/31/2020 Specialty [place] [address] Calderon Mendoza Social History Tobacco Use Types [...] Mendoza - 07/31/2020 11:59 PM EDT The - Specialty Pharmacy has completed a benefits investigation for Keeley Zapata Jennypaxton to review their eligibility to fill at [facility]. Per patient's medication list they are prescribed etanercept (ENBREL) 50 mg/mL (0.98 mL) and the medication may be able to be filled at the [facility], and currently on hold pending ortho eval. documented in this encounter Plan of Treatment Upcoming Encounters Date Type Department Care Team (Late st Contact Info) Description 02/27/2024 8:15 AM EDT TH Visit (TeleHealth) [place] [address] Jean-Pierre Peña MD [facility] [place] [address] Vicky Burnham APRN [facility] [place] [place] [address] 02/28/2024 11:30 AM EDT Infusion Hematology Oncology at [address] [address] 03/19/2024 12:45 PM EST Laboratory Appointment Lab [place] [facility] [place] [address] [address] 03/19/2024 1:45 PM EST Office Visit [place]ematology [place] [address] Jean-Pierre Peña MD [facility] [place] [address] Vicky Burnham APRN [facility] [place] [place] [address] 03/19/2024 3:30 PM EST Appointment Hematology [place] [address] 04/30/2024 12:15 PM EST Laboratory Appointment Lab [place] [facility] [place] On[place] [address] [place] [address] 04/30/2024 1:15 PM EST Office Visit [place]ematology [place] [address] Jean-Pierre Peña MD [facility] [place] [address] Vicky Burnham APRN [facility] [place] [address] 04/30/2024 2:30 PM EST Appointment Hematology and Oncology at [facility] [address] 05/22/2024 11:30 AM EST Office Visit Dermatology at [facility] [address] [place] [address] Inderjit Vilchis MD [facility] [address] [place] [address] documented as of this encounter Visit Diagnoses Not on filedocumented in this encounter Care Teams Ceramic Worker Relationship Specialty Start Date End Date Taylor Bryant APRN [address] [place] [address] PCP - General 03/31/10 documented as of this encounter
--- OUTSIDE RECORDS SUMMARY | 2024-02-24 02:00 | XMS_ITS | Encounter Summary ---
Author Organization [facility] [place] [address] Care Team Providers Care Membership Director Name Role Phone Taylor Bryant ZARA Primary Care Provider [phone] [phone] Reason for Referral * Diagnostic Test (Routine) - Closed Specialty Diagnoses / Procedures Referred By Crista t Referred To Contact Radiology Diagnoses Malignant melanoma, unspecified site Procedures MRI Brain wwo Contrast (Generic) Neida Luong APRN [facility] DR HEMATOLOGY [place] [address] [place] [address] Referral ID Status Reason Start Date Expiration Date V isits Requested Visits Authorized [id number] Closed Specialty Service Requested 07/19/2023 01/18/2025 1 1 Encounter Details Date Type Department Care Team (Late st Contact Info) Description 07/19/2023 Orders Only [place]ematology [place] [address] Neida Luong APRN [facility] DR HEMATOLOGY [place] [address] Malignant melanoma, unspecified site Social History Tobacco [...] TH Visit (TeleHealth) [place]ematology [place] [address] Jean-Pierre Peña MD [facility] H[place]ATOLOGY [place] [address] Vicky Burnham APRN [facility] [address] 02/28/2024 11:30 AM EDT Infusion Hematology Oncology at [address] [address] 03/19/2024 12:45 PM EST Laboratory Appointment Lab at [facility] Hematology Oncology [address] [place] [address] 03/19/2024 1:45 PM EST Office Visit Hematology [place] [address] Jean-Pierre Peña MD [facility] [place]Y [place] [address] Vicky Burnham APRN [facility] [place] [address] 03/19/2024 3:30 PM EST Appointment Hematology [place] [address] 04/30/2024 12:15 PM EST Laboratory Appointment Lab at [facility] Hematology Oncology [address] [place] [address] 04/30/2024 1:15 PM EST Office Visit Hematology [place] [address] Jean-Pierre Peña MD [facility] DR HEMATOLOG[place] [address] Vicky Burnham APRN [facility] [place] [address] 04/30/2024 2:30 PM EST Appointment Hematology [place] [address] 05/22/2024 11:30 AM EST Office Visit Dermatology at [facility] [address] [place] [address] Inderjit Vilchis MD [facility] DR GILBERTO [place] [address] documented as of this encounter Results * [...] who have questions please contact the health behavioral health care manager that requested your imaging first. ? Electronically signed by: Matty Mukherjee MD, [facility] ([phone]), at 08/01/2023 3:10 PM Narrative 08/01/2023 3:10 [...] patients who have questions please contactthe health behavioral health care manager that requested your imaging first. Electronically signed by: Matty Mukherjee MD, [facility]([phone]), at 08/01/2023 3:10 PM Neida Luong APRN IMG MRI ORDERABLES documented in this encounter Visit Diagnoses Diagnosis Malignant melanoma, unspecified site Malignant melanoma, unspecified site documented in this encounter Care Teams Membership Director Relationship Specialty Start Date End Date Taylor Bryant APRN [address] [place] [address] PCP - General 03/31/10 documented as of this encounter
--- OUTSIDE RECORDS SUMMARY | 2024-02-24 02:00 | XMS_ITS | Encounter Summary ---
Author Organization [facility] Address [facility] [place] [address] Care Team Providers Care Property Claims Adjuster Name Role Phone Taylor Bryant ZARA Primary Care Provider +1 [phone] Encounter Details Date Type Department Care Team (Late Contact Info) Description 07/14/2023 [place] [phone] Inderjit Vilchis MD [facility] DR GILBERTO [place] [address] Social History Tobacco Use Types Packs/Day Years [...] Department Care Team (Late Contact Info) Description 02/27/2024 8:15 AM EDT TH Visit (TeleHealth) [place]ology [place] [address] Jean-Pierre Peña MD [facility] HEMATOLOGY [place] [address] Vicky Burnham APRN [facility] [place] [address] 02/28/2024 11:30 AM EDT Infusion Hematology Oncology at [address] [address] 03/19/2024 12:45 PM EST Laboratory Appointment Lab [place] [facility] [place] [address] [place] [address] 03/19/2024 1:45 PM EST Office Visit [place]ematology [place] [phone] Jean-Pierre Peña MD [facility] DR HEMATOLOGY [place] [address] Vicky Burnham APRN [facility] [place] [address] 03/19/2024 3:30 PM EST Appointment Hematology [place] [address] 04/30/2024 12:15 PM EST Laboratory Appointment Lab at [facility] [place] [address] [place] [address] 04/30/2024 1:15 PM EST Office Visit Hematology [place] [address]1000 Jean-Pierre Peña MD [facility] DR HEMATOLOGY [place] [address] Vicky Burnham APRN [facility] [place] [address] 04/30/2024 2:30 PM EST Appointment Hematology [place] [address] 05/22/2024 11:30 AM EST Office Visit Dermatology at [place] [address] [place] [address] Inderjit Vilchis MD [facility] DR GILBERTO ST[place] [address] documented as of this encounter Procedures Procedure Name Priority Date/Time Associated Diagnosis Comments SURGICAL PATHOLOGY SCAN Routine 07/14/2023 12:13 PM EST documented in this encounter Results * Scan Doc: Surgical Pathology (07/14/2023 12:13 PM EST) Inderjit Vilchis MD MEDIA MGR SCAN EXT ORDR/RSLT documented in this encounter Visit Diagnoses Not on filedocumented in this encounter Care Teams Property Claims Adjuster Relationship Specialty Start Date End Date Taylor Bryant APRN [address] [place] [address] PCP - General 03/31/10 documented as of this encounter
--- OUTSIDE RECORDS SUMMARY | 2024-02-24 02:00 | XMS_ITS | Encounter Summary ---
[place] [address] Care Team Providers Care Molding Sander Name Role Phone Taylor Bryant APRN Primary Care Provider +1 -[phone] Reason for Visit * Reason Comments Specialty Pharmacy Review Enbrel (etaner cept) Encounter Details Date Type Department Care Team (Late st Contact Info) Description 02/09/2021 Specialty [place] [phone] Licha Yanes, [facility] Social History Tobacco Use Types Packs/Day Years [...] Yanes - 02/09/2021 11:59 PM EDT The [facility] has completed a benefits investigation for Keeley Benny Gutierrez to review their eligibility to fill at [facility]. Per patient's medication list they are prescribed Enbrel (etanercept) and the medication is not able to be filled at the [facility]; patient is not currently on a specialty medication. documented in this encounter Plan of Treatment Upcoming Encounters Date Type Department Care Team (Late st Contact Info) Description 02/27/2024 8:15 AM EDT TH Visit (TeleHealth) [place] [address] Jean-Pierre Peña MD [facility] DR [place] [address] Vicky Burnham APRN [facility] [place] [address] 02/28/2024 11:30 AM EDT Infusion Hematology Oncology at [address] [address] 03/19/2024 12:45 PM EST Laboratory Appointment Lab at [facility] Hematology Oncology [address] [place] [address] 03/19/2024 1:45 PM EST Office Visit [place]ematology [place] [address] Jean-Pierre Peña MD [facility] DR [place] [address] Vicky Burnham APRN [facility] [place] [address] 03/19/2024 3:30 PM EST Appointment Hematology [place] [address] 04/30/2024 12:15 PM EST Laboratory Appointment Lab at [facility] Hematology Oncology [address] [place] [address] 04/30/2024 1:15 PM EST Office Visit Hematology [place] [phone] Jean-Pierre Peña MD [facility] [place] [address] Vicky Burnham APRN [facility] [place] [address] 04/30/2024 2:30 PM EST Appointment Hematology and Oncology at [facility] [place] [address] 05/22/2024 11:30 AM EST Office Visit Dermatology at [facility] [address] [place] [address] Inderjit Vilchis MD [facility] DR GILBERTO [place] [address] documented as of this encounter Visit Diagnoses Not on filedocumented in this encounter Care Teams Molding Sander Relationship Specialty Start Date End Date Taylor Bryant APRN [address] [place] [address] PCP - General 03/31/10 documented as of this encounter
--- OUTSIDE RECORDS SUMMARY | 2024-02-24 02:00 | XMS_ITS | Encounter Summary ---
Author Organization [facility] [place] [address] Care Team Providers Care Special Crimes Investigator Name Role Phone Taylor Bryant ZARA Primary Care Provider [phone] [phone] Encounter Details Date Type Department Care Team (Late Contact Info) Description 07/15/2023 Orders Only Hematology [place] [phone] Neida Luong DATA GOVERNANCE CONSULTANT [facility] [address] [place] [address] Malignant melanoma of scalp; Medication management Social [...] Visit (TeleHealth) Hematology [place] [address] Jean-Pierre Peña MD [facility] DR [place] [address] Vicky Burnham APRN [facility] [place] [address] 02/28/2024 11:30 AM EDT Infusion Hematology Oncology at [address] [address] 03/19/2024 12:45 PM EST Laboratory Appointment Lab at [facility] Hematology Oncology [address] [place] [address] 03/19/2024 1:45 PM EST Office Visit Hematology [place] [phone] Jean-Pierre Peña MD [facility] DR [place] [address] Vicky Burnham APRN [facility] [place] [address] 03/19/2024 3:30 PM EST Appointment Hematology [place] [address] 04/30/2024 12:15 PM EST Laboratory Appointment Lab at [facility] Hematology Oncology [address] [place] [address] 04/30/2024 1:15 PM EST Office Visit Hematology [place] [address] Jean-Pierre Peña MD [facility] DR [place] [address] Vicky Burnham DATA GOVERNANCE CONSULTANT [facility] [place] [address] 04/30/2024 2:30 PM EST Appointment Hematology [place] [address] 05/22/2024 11:30 AM EST Office Visit Dermatology at [place] [address] [place] [address] Inderjit Vilchis MD [facility] DR GILBERT[place] [address] Scheduled Orders Name Type Priority Associated Diagnoses Orde r Schedule Specimen to Pathology Additional Testing Pathology/Cytol ogy STAT Malignant melanoma of scalp Ordered: 07/15/2023 documented as of this encounter Results * TSH (07/25/2023 11:32 AM EDT) Thyroid Stimulating Hormone 0.87 0.27 - 4.20 mcIU/mL [facility] Comment: Reference Interval (mcIU/mL): Females: ??First Trimester: 0.23-3.88 ??Second Trimester: 0.22-3.90 ??Third Trimester: 0.44-4.66 Blood 07/25/2023 11:3 2 AM EDT 07/25/2023 11:44 AM EDT Narrative Resulting Agency Comment Spec In Lab Carlos Dominguez MD CHEMISTRY ORDERABLES [facility] [place] [address] * T4, free (07/25/2023 11:32 AM EDT) Free T4 1.30 0.93 - 1.70 ng/dL [facility] Comment: Reference Interval (ng/dL): Females: ??First Trimester: 0.97-1.68 ??Second Trimester: 0.77-1.51 ??Third Trimester: 0.77-1.49 Blood 07/25/2023 11:3 2 AM EDT 07/25/2023 11:44 AM EDT Narrative Resulting Agency Comment Spec In Lab Carlos Dominguez MD CHEMISTRY ORDERABLES [facility] [address] * Lactate Dehydrogenase (07/25/2023 11:32 AM EDT) Lactate Dehydrogenase 172 110 - 220 unit/L [facility] Blood 07/25/2023 11:3 2 AM EDT 07/25/2023 11:44 AM EDT Narrative Resulting Agency Comment Spec In Lab Carlos Dominguez MD CHEMISTRY ORDERABLES [facility] [address] [facility] [place] [address] * Comprehensive metabolic panel (non-fasting) (07/25/2023 11:32 AM EDT) Glucose 102 65 - 199 mg/dL [facility] Comment:Diabetes: >=200 mg/d L plus symptoms Blood Urea Nitrogen 16 8 - 18 mg/dL [facility] Creatinine 0.97 0.70 - 1.20 mg/dL [facility] Sodium 139 135 - 145 mmol/L [facility] Potassium 4.6 3.5 - 5.0 mmol/L [facility] Comment: Please note: ??Patients with WBC >100,000 may have falsely elevated Potassium levels. ??For accurate Potassium quantification in these patients send serum separator tube (gold top) for subsequent determinations. ??Contact the Clinical Chemistry Laboratory if there are any questions. Chloride 104 98 - 107 mmol/L [facility] Carbon Dioxide 27 22 - 31 mmol/L [facility] Anion Gap 8 5 - 15 mmol/L [facility] Calcium 9.5 8.5 - 10.5 mg/dL [facility] Protein, Total 6.7 6.1 - 8.0 g/dL [facility] Albumin 4.5 3.2 - 5.2 g/dL [facility] Aspartate Aminotransferase 13 0 - 30 unit/L [facility] Alanine Aminotransferase 12 0 - 30 unit/L [facility] Alkaline Phosphatase 66 35 - 105 unit/L [facility] Bilirubin, Total 0.5 0.2 - 1.3 mg/dL [facility] Est Glomerular Filtration Rate 68 >=60 mL/min/1. 73 m?? [facility] Comment: This patient's estimated GFR was [...] In Lab Carlos Dominguez MD CHEMISTRY ORDERABLES [facility] [address] documented in this encounter Visit Diagnoses Diagnosis Malignant melanoma of scalp Malignant melanoma of skin of scalp and neck Medication management Encounter for long-term (current) use of other medications documented in this encounter Care Teams Special Crimes Investigator Relationship Specialty Start Date End Date Taylor Bryant APRN [address] [place] [address] PCP - General 03/31/10 documented as of this encounter
--- OUTSIDE RECORDS SUMMARY | 2024-02-24 02:00 | XMS_ITS | Encounter Summary ---
Author Organization [facility] Address [facility] [place] [address] Care Team Providers Care Smutter Name Role Phone Taylor Bryant APRN Primary Care Provider +1 -[phone] Reason for Referral * Comprehensive Melanoma Consult (Routine) - Closed Specialty Diagnoses / Procedures Referred By Crista t Referred To Contact Otolaryngology Diagnoses Malignant melanoma, unspecified site sent to [facility] 08/02 Inderjit Vilchis MD [facility] DR GILBERTO [place] [address] [facility] Otolaryngology [address] [place] [phone] Referral ID Status Reason Start Date Expiration Date V isits Requested Visits Authorized [id number] Closed Consult, Test & Treat 07/05/2023 07/04/2024 1 1 * Diagnostic Test (Routine) - Closed Specialty Diagnoses / Procedures Referred By Crista t Referred To Contact Radiology Diagnoses Malignant melanoma, unspecified site Procedures NM PET CT Standard Plus Extremities and Head Inderjit Vilchis MD [facility] DR GILBERTO [place] [address] [place] [address] Referral ID Status Reason Start Date Expiration Date V isits Requested Visits Authorized [id number] Closed Specialty Service Requested 07/05/2023 01/02/2025 1 1 Encounter Details Date Type Department Care Team (Late Contact Info) Description 07/05/2023 Orders Only Dermatology at [facility] [address] [place] [address] Inderjit Vilchis MD [facility] DR GILBERTO [place] [address] Malignant melanoma, unspecified site Social History Tobacco [...] TH Visit (TeleHealth) Hematology [place] [address] Jean-Pierre Peña MD [facility] DR HEMATOLOGY [place] [address] Vicky Burnham APRN [facility] [place] [address] 02/28/2024 11:30 AM EDT Infusion Hematology Oncology at [address] [address] 03/19/2024 12:45 PM EST Laboratory Appointment Lab at [facility] Hematology Oncology [address] [place] [address] 03/19/2024 1:45 PM EST Office Visit Hematology [place] [address] Jean-Pierre Peña MD [facility] DR HEMATOLOGY [place] [address] Vicky Burnham APRN [facility] [place] [address] 03/19/2024 3:30 PM EST Appointment Hematology [place] [address] 04/30/2024 12:15 PM EST Laboratory Appointment Lab at [facility] Hematology Oncology [address] [place] [address] 04/30/2024 1:15 PM EST Office Visit Hematology [place] [address] Jean-Pierre Peña MD [facility] DR HEMATOLOGY [place] [address] Vicky Burnham UNDERGROUND UTILITY LOCATOR [facility] [place] [address] 04/30/2024 2:30 PM EST Appointment Hematology [place] [address] 05/22/2024 11:30 AM EST Office Visit Dermatology at [address] [address] Inderjit Vilchis MD [facility] DR GILBERTO [place] [address] Scheduled Referrals Name Type Priority Associated Diagnoses [...] who have questions please contact the health manager career that requested your imaging first. ? Electronically signed by: Renard Hoffman MD, [facility] ([phone]), at 07/14/2023 9:53 AM Narrative 07/14/2023 9:53 AM EST EXAMINATION: NM PET CT STANDARD PLUS EXTREMITIES AND HEAD CLINICAL HISTORY: Melanoma, staging C43.9, Malignant melanoma of skin, unspecified TECHNIQUE: Procedure: Following IV injection of 10-yfbsmr-2-deoxyglucose (FDG) a standard uptake of approximately 60 [...] Note Renard Hoffman MD - 07/14/2023 EXAMINATION: TN PET CT STANDARD PLUS EXTREMITIES AND HEAD CLINICAL HISTORY: Melanoma, staging C43.9, Malignant melanoma of skin, unspecified TECHNIQUE: Procedure: Following IV injection of 16-mxanjb-0-deoxyglucose(FDG) a standard uptake of approximately 60 minutes, [...] patients who have questions please contactthe health manager career that requested your imaging first. Electronically signed by: Renard Hoffman MD, [facility]([phone]), at 07/14/2023 9:53 AM Inderjit Vilchis MD IMG PET ORDERAB LES documented in this encounter Visit Diagnoses Diagnosis Malignant melanoma, unspecified site Malignant melanoma, unspecified site documented in this encounter Care Teams Smutter Relationship Specialty Start Date End Date Taylor Bryant, UNDERGROUND UTILITY LOCATOR [address] [place] [address] PCP - General 03/31/10 documented as of this encounter
--- OUTSIDE RECORDS SUMMARY | 2024-02-24 02:00 | XMS_ITS | Encounter Summary ---
Author Organization [facility] Address [facility] [place] [address] Care Team Providers Care Industrial Cafeteria Manager Name Role Phone Taylor Bryant ZARA Primary Care Provider [phone] [phone] Encounter Details Date Type Department Care Team [...] TH Visit (TeleHealth) Hematology [place] [address] Jean-Pierre Peña MD [facility] DR HEMAT[place]Y [place] [address] Vicky Burnham APRN [facility] [place] [address] 02/28/2024 11:30 AM EDT Infusion Hematology Oncology at [address] [address] 03/19/2024 12:45 PM EST Laboratory Appointment Lab at [facility] Hematology Oncology [address] [place] [address] 03/19/2024 1:45 PM EST Office Visit Hematology [place] [address] Jean-Pierre Peña MD [facility] DR HEM[place] [address] Vicky Burnham APRN [facility] [place] [address] 03/19/2024 3:30 PM EST Appointment Hematology and Oncology at [place] [phone] 04/30/2024 12:15 PM EST Laboratory Appointment Lab at [facility] Hematology [address] [address] 04/30/2024 1:15 PM EST Office Visit Hematology [place] [address] Jean-Pierre Peña MD [facility] DR HEM[place]Y [place] [address] Vicky Burnham APRN [facility] [place] [address] 04/30/2024 2:30 PM EST Appointment Hematology [place] [address] 05/22/2024 11:30 AM EST Office Visit Dermatology at [address] [phone] Inderjit Vilchis MD [facility] DR GILBERTO [place] [address] documented as of this encounter Visit Diagnoses Not on filedocumented in this encounter Care Teams Industrial Cafeteria Manager Relationship Specialty Start Date End Date Taylor Bryant APRN [address] [place] [address] PCP - General 03/31/10 documented as of this encounter
--- OUTSIDE RECORDS SUMMARY | 2024-02-24 02:00 | XMS_ITS | Encounter Summary ---
Author Organization [facility] Address [facility] [place] [address] Care Team Providers Care Regional Liaison Name Role Phone Taylor Bryant APRN Primary Care Provider [phone] Encounter Details Date Type Department Care Team ([facility] Contact Info) Description 04/11/2023 Interpretation Only [address] [address] Taylor Bryant APRN [address] [place] [address] Social History Tobacco Use Types Packs/Day Years [...] TH Visit (TeleHealth) Hematology [place] [address] Jean-Pierre Peña MD [facility] [place] [address] Vicky Burnham APRN [facility] [place] [address] 02/28/2024 11:30 AM EDT Infusion Hematology Oncology at [address] [address] 03/19/2024 12:45 PM EST Laboratory Appointment Lab at [facility] [place] Oncology [address] [place] [address] 03/19/2024 1:45 PM EST Office Visit Hematology [place] [address] Jean-Pierre Peña MD [facility] DR [place] [address] Vicky Burnham APRN [facility] [place] [address] 03/19/2024 3:30 PM EST Appointment Hematology [place] [address] 04/30/2024 12:15 PM EST Laboratory Appointment Lab at [facility] [place]ematology Oncology [address] [place] [address] 04/30/2024 1:15 PM EST Office Visit Hematology [place] [address] Jean-Pierre Peña MD [facility] [address] [place] [address] Vicky Burnham APRN [facility] [place] [address] 04/30/2024 2:30 PM EST Appointment Hematology [place] [address] 05/22/2024 11:30 AM EST Office Visit Dermatology at [address] [phone] Inderjit Vilchis MD [facility] [place] [address] documented as of this encounter Procedures Procedure Name Priority Date/Time Associated Diagnosis Comments CT CHEST WO CONTRAST (GENERIC) Routine 04/11/2023 10:17 AM EST documented in this encounter Results * CT Chest wo Contrast (Generic) (04/11/2023 10:17 AM EST) PT CLASS O RAD ADMITDTTM [id number] RAD PT RAD INFO [id number]^[place] ^Taylor RAD EXAM DESC CTCHST^CT Chest w/o Contrast^RIS RAD [...] who have questions please contact the health managed care specialist that requested your imaging first. ? Electronically signed by: Killian Herman MD, [facility] ([phone]), at 04/11/2023 3:40 PM Narrative 04/11/2023 3:40 PM EST EXAMINATION: CT [...] patients who have questions please contactthe health managed care specialist that requested your imaging first. Taylor Bryant APRN [facility] ORDERABLES documented in this encounter Visit Diagnoses Not on filedocumented in this encounter Care Teams Regional Liaison Relationship Specialty Start Date End Date Taylor Bryant APRN [address] [place] [address] PCP - General 03/31/10 documented as of this encounter
--- OUTSIDE RECORDS SUMMARY | 2024-02-24 02:00 | XMS_ITS | Encounter Summary ---
Author Organization Formerly [facility] [place] [address] Care Team Providers Care Insulation Power Unit Tender Name Role Phone Taylor Bryant ZARA Primary Care Provider [phone] Encounter Details Date Type Department Care Team (Late st Contact Info) Description 07/05/2023 Orders Only Hematology [place] [address] Emily Yao CHART CALCULATOR [facility] [place] [address] Social History Tobacco Use Types Packs/Day Years [...] TH Visit (TeleHealth) [place] [address] Jean-Pierre Peña MD [facility] [place] [address] Vicky Burnham APRN [facility] [place] [address] 02/28/2024 11:30 AM EDT Infusion Hematology Oncology at [address] [address] 03/19/2024 12:45 PM EST Laboratory Appointment Lab at [facility] Hematology Oncology [address] [place] [address] 03/19/2024 1:45 PM EST Office Visit Hematology [place] [address] Jean-Pierre Peña MD [facility] [address] [place] [address] Vicky Burnham APRN [facility] [place] [address] 03/19/2024 3:30 PM EST Appointment Hematology [place] [address] 04/30/2024 12:15 PM EST Laboratory Appointment Lab at [facility] Hematology Oncology [address] [place] [address] 04/30/2024 1:15 PM EST Office Visit [place]ematology [place] [address] Jean-Pierre Peña MD [facility] [address] [place] [address] Vicky Burnham APRN [facility] [place] [address] 04/30/2024 2:30 PM EST Appointment Hematology [place] [address] 05/22/2024 11:30 AM EST Office Visit Dermatology at [facility] [address] [place] [address] Inderjit Vilchis MD [facility] GILBERT[place] [address] documented as of this encounter Visit Diagnoses Not on filedocumented in this encounter Care Teams Insulation Power Unit Tender Relationship Specialty Start Date End Date Taylor Bryant, CHART CALCULATOR [address] [place] [address] PCP - General 03/31/10 documented as of this encounter
--- OUTSIDE RECORDS SUMMARY | 2024-02-24 02:00 | XMS_ITS | Encounter Summary ---
Author Organization [facility] Address [facility] [place] [address] Care Team Providers Care Plant Attendant Name Role Phone Taylor Bryant ZARA Primary Care Provider [phone] Encounter Details Date Type Department Care Team (Late Contact Info) Description 02/16/2021 Telephone [place] [phone] Mabel Moreno Social History Tobacco Use Types [...] TH Visit (TeleHealth) Hematology [place] [address] Jean-Pierre Peña MD [facility] [address] [place] [address] Vicky Burnham APRN [facility] [place] [address] 02/28/2024 11:30 AM EDT Infusion Hematology Oncology at [address] [phone] 03/19/2024 12:45 PM EST Laboratory Appointment Lab at [facility] Hematology Oncology [address] [place] [address] 03/19/2024 1:45 PM EST Office Visit Hematology [place] [address] Jean-Pierre Peña MD [facility] [address] [place] [address] Vicky Burnham APRN [facility] [place] [address] 03/19/2024 3:30 PM EST Appointment Hematology [place] [address] 04/30/2024 12:15 PM EST Laboratory Appointment Lab at [facility] Hematology Oncology [address] [place] [address] 04/30/2024 1:15 PM EST Office Visit Hematology [place] [address] Jean-Pierre Peña MD [facility] [place] [address] Vicky Burnham VISITING TEACHER [facility] [place] [address] 04/30/2024 2:30 PM EST Appointment Hematology [place] [address] 05/22/2024 11:30 AM EST Office Visit Dermatology at [address] [phone] Inderjit Vilchis MD [facility] DR GILBERT[place] [address] documented as of this encounter Visit Diagnoses Not on filedocumented in this encounter Care Teams Plant Attendant Relationship Specialty Start Date End Date Taylor Bryant APRN [address] [place] [address] PCP - General 03/31/10 documented as of this encounter
--- OUTSIDE RECORDS SUMMARY | 2024-02-24 02:00 | XMS_ITS | Encounter Summary ---
Author Organization [facility] Address [facility] [place] [address] Care Team Providers Care Merchandise Deliverer Name Role Phone Taylor Bryant APRN Primary Care Provider [phone] Reason for Visit * Consultation (Routine) - Authorized Specialty Diagnoses / Procedures Referred By Crista padron Referred To Contact Dermatology Diagnoses Pigmented skin lesion suspicious for malignant neoplasm Taylor Bryant APRN [address] [place] [address] [facility] Dermatology [address] [place] [address] Referral ID Status Reason Start Date Expiration Date Visits Requested Visits Authorized [id number] Authorized Consult, Test & Treat PCP Updated and/or Approved 06/25/2023 06/24/2024 6 6 Encounter Details Date Type Department Care Team ([facility] st Contact Info) Description 06/27/2023 3:40 PM EST Office Visit Dermatology at [facility] [address] [place] [address] Inderjit Argueta MD [facility] DR GILBERTO [place] [address] Blue nevus; Neoplasm of uncertain [...] history no Social History 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 Patient returns to clinic today for a pigmented lesion on the back of the right scalp. ? Melanoma. Patient had a biopsy done at [facility] by Taylor Bryant last Tuesday but has not received the results yet. Assuming this is a melanoma, do not know and will not know the complete depth with the outside DH biopsy, re- [place] path here [place] [facility], might have her back here with me [...] Patient had biopsy by Taylor Bryant at [facility] on 06/21/23, results have not came back [...] results from outside facility []Note routed to nursing secretary []Recall placed in scheduling system [x]Appointment scheduled at checkout Scribe attestation: Keith Bentley LPN has performed the documentation for this encounter in the presence of and acting as a scribe for INDERJIT ARGUETA MD. I performed the above scribed service and agree with the accuracy of the documentation in this encounter. Reviewed and signed by: INDERJIT ARGUETA MD Dermatology [facility] documented in this encounter Plan of Treatment Upcoming Encounters Date Type Department Care Team (Late st Contact Info) Description 02/27/2024 8:15 AM EDT TH Visit (TeleHealth) [place] [address] Jean-Pierre Peña MD [facility] DR [place] [address] Vicky Burnham APRN [facility] [place] [address] 02/28/2024 11:30 AM EDT Infusion Hematology Oncology at [address] [address] 03/19/2024 12:45 PM EST Laboratory Appointment Lab at [facility] Hematology Oncology [address] [place] [address] 03/19/2024 1:45 PM EST Office Visit [place]emat[place] [address] Jean-Pierre Peña MD [facility] DR [place] [address] Vicky Burnham APRN [facility] [place] [address] 03/19/2024 3:30 PM EST Appointment Hematology [place] [address] 04/30/2024 12:15 PM EST Laboratory Appointment Lab at [facility] [place] [address] [address] 04/30/2024 1:15 PM EST Office Visit [place]emat[place] [address] Jean-Pierre Peña MD [facility] DR [place] [address] Vicky Burnham INTERVENTIONAL PAIN PHYSICIAN [facility] [place] [address] 04/30/2024 2:30 PM EST Appointment Hematology [place] [address] 05/22/2024 11:30 AM EST Office Visit Dermatology at [address] [address] Inderjit Argueta MD [facility] DR GILBERTO [place] [address] Scheduled Referrals Name Type Priority Associated Diagnoses Order Schedule Referral to Dermatology Outpatient Referral Routine Pigmented skin lesion suspicious for malignant neoplasm Ordered: 06/25/2023 documented as of this encounter Visit Diagnoses Diagnosis Blue nevus Neoplasm of uncertain behavior of skin documented in this encounter Care Teams Merchandise Deliverer Relationship Specialty Start Date End Date Taylor Bryant APRN [address] [place] [address] PCP - General 03/31/10 documented as of this encounter
--- OUTSIDE RECORDS SUMMARY | 2024-02-24 02:00 | XMS_ITS | Encounter Summary ---
Author Organization [facility]ly [facility] Address [facility] [place] [address] Care Team Providers Care Bracelet Maker Novelty Name Role Phone Taylor Bryant APRN Primary Care Provider [phone] Encounter Details Date Type Department Care Team (Latest Contact Info) Description 02/09/2021 11:00 AM EDT TH Visit (TeleHealth) [place] [address] Seamus Rosario MD [facility] [place] [address] Psoriatic arthritis; Effusion of left knee; Medication [...] TH Visit (TeleHealth) [place] [address] Jean-Pierre Peña MD [facility] DR HEMATOLOGY [place] [address] Vicky Burnham PIN STICKER [facility] [place] [address] 02/28/2024 11:30 AM EDT Infusion Hematology Oncology at [address] [address] 03/19/2024 12:45 PM EST Laboratory Appointment Lab at [facility] Hematology Oncology [address] [place] [address] 03/19/2024 1:45 PM EST Office Visit [place] [address] Jean-Pierre Peña MD [facility] DR HEMATOLOGY [place] [address] Vicky Burnham PIN STICKER [facility] [place] [address] 03/19/2024 3:30 PM EST Appointment Hematology [place] [address] 04/30/2024 12:15 PM EST Laboratory Appointment Lab at [facility] Hematology Oncology [address] [place] [address] 04/30/2024 1:15 PM EST Office Visit [place]ematology [place] [address] Jean-Pierre Peña MD [facility] DR HEMATOLOGY [place] [address] Vicky Burnham APRN [facility] [place] [address] 04/30/2024 2:30 PM EST Appointment Hematology [place] [address] 05/22/2024 11:30 AM EST Office Visit Dermatology at [facility] [address] [place] [address] Inderjit Vilchis MD [facility] DR GILBERTO [place] [address] documented as of this encounter Visit Diagnoses [...] thigh documented in this encounter Care Teams Bracelet Maker Novelty Relationship Specialty Start Date End Date Taylor Bryant APRN [address] [place] [address] PCP - General 03/31/10 documented as of this encounter
--- OUTSIDE RECORDS SUMMARY | 2024-02-24 02:00 | XMS_ITS | Encounter Summary ---
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, unspecified lymph node region Procedures IR Biopsy Lymph Node (Head/Neck) IR All Biopsy Procedures Jean-Pierre Peña MD [facility] DR HEMATOLOGY [place] [address] [facility] [place] [address] Referral ID Status Reason Start Date Expiration Date V isits Requested Visits Authorized [id number] Closed Specialty Service Requested 07/25/2023 01/24/2025 1 1 Reason for Visit * Reason Comments Advice Only Encounter Details Date Type Department Care Team (Late st Contact Info) Description 07/25/2023 1:15 PM EDT Office Visit [place]ematology [place] [address] Jean-Pierre Peña MD [facility] HEMATOLOGY [place] [address] Malignant melanoma of scalp (Primary Dx); 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 INITIAL VISIT [facility] NOTE REFERING PHYSICIAN: DIAGNOSIS: Right [...] TH Visit (TeleHealth) [place]ematology [place] [address] Jean-Pierre Peña MD [facility] HEMATOLOGY [place] [address] Vicky Burnham APRN [facility] [place] [address] 02/28/2024 11:30 AM EDT Infusion Hematology Oncology at [address] [address] 03/19/2024 12:45 PM EST Laboratory Appointment Lab at [facility] Hematology Oncology [address] [place] [address] 03/19/2024 1:45 PM EST Office Visit Hematology [place] [address] Jean-Pierre Peña MD [facility] DR HEMATOLOGY [place] [address] Vicky Burnham APRN [facility] [place] [address] 03/19/2024 3:30 PM EST Appointment Hematology [place] [address] 04/30/2024 12:15 PM EST Laboratory Appointment Lab at [facility] Hematology Oncology [address] [place] [address] 04/30/2024 1:15 PM EST Office Visit Hematology [place] [address] Jean-Pierre Peña MD [facility] HEMATOLOGY [place] [address] Vicky Burnham APRN [facility] [place] [address] 04/30/2024 2:30 PM EST Appointment Hematology [place] [address] 05/22/2024 11:30 AM EST Office Visit Dermatology at [facility] [address] [place] [address] Inderjit Vilchis MD [facility] DR GILBERTO [place] [address] Scheduled Orders Name Type Priority Associated Diagnoses [...] a RIGHT level Ib cervical chain node. [employer] Administrator: Norm Evans M.D. Attending: Matty Mukherjee M.D. [...] have questions please contact the health daycare teacher that requested your imaging first. ? Electronically signed by: Matty Mukherjee MD, [facility] ([phone]), at 08/09/2023 3:42 PM Narrative 08/09/2023 3:42 [...] of a RIGHT level Ib cervicalchain node. [employer] Administrator: Norm Evans M.D. Attending: Matty Mukherjee M.D. [...] who have questions please contactthe health daycare teacher that requested your imaging first. Electronically signed by: Matty Mukherjee MD, [facility]([phone]), at 08/09/2023 3:42 PM Jean-Pierre Peña MD IMG IR ORDERABLES documented [...] region documented in this encounter Care Teams Mold Shaker Relationship Specialty Start Date End Date Taylor Bryant APRN [address] [place] [address] PCP - General 03/31/10 documented as of this encounter
--- OUTSIDE RECORDS SUMMARY | 2024-02-24 02:00 | XMS_ITS | Encounter Summary ---
Author Organization [facility] Address [facility] [place] [address] Care Team Providers Care Distribution Engineering Technologist Name Role Phone Taylor Bryant APRN Primary Care Provider [phone] Encounter Details Date Type Department Care Team (Latest Contact Info) Description 07/12/2023 Multidisciplinary Ca re Committee Dermatology at [facility] [address] [place] [address] Inderjit Vilchis MD [facility] DR GILBERTO NAVARRO[place] [address] Social History Tobacco Use Types Packs/Day Years [...] and was advised they'll send it via [employer] in the next day or two. Stage: [...] TH Visit (TeleHealth) [place] [address] Jean-Pierre Peña MD [facility] HEMATOLOGY [place] [address] Vicky Burnham APRN [facility] DR [place] [address] 02/28/2024 11:30 AM EDT Infusion Hematology Oncology at [address] [address] 03/19/2024 12:45 PM EST Laboratory Appointment Lab at [facility] Hematology Oncology [address] [place] [address] 03/19/2024 1:45 PM EST Office Visit [place] [address] Jean-Pierre Peña MD [facility] DR HEMATOLOGY [place] [address] Vicky Burnham APRN [facility] [place] [address] 03/19/2024 3:30 PM EST Appointment [place] [address] 04/30/2024 12:15 PM EST Laboratory Appointment Lab at [facility] Hematology Oncology [address] [place] [address] 04/30/2024 1:15 PM EST Office Visit [place] [address] Jean-Pierre Peña MD [facility] DR HEMATOLOGY [place] [address] Vicky Burnham APRN [facility] DR [place] [address] 04/30/2024 2:30 PM EST Appointment [place] [address] 05/22/2024 11:30 AM EST Office Visit Dermatology at [place] [address] [place] [address] Inderjit Vilchis MD [facility] [address] documented as of this encounter Visit Diagnoses Not on filedocumented in this encounter Care Teams Distribution Engineering Technologist Relationship Specialty Start Date End Date Taylor Bryant APRN [address] [place] [address] PCP - General 03/31/10 documented as of this encounter
--- OUTSIDE RECORDS SUMMARY | 2024-02-24 02:00 | XMS_ITS | Encounter Summary ---
Author Organization [facility] Address [facility] [place] [address] Care Team Providers Care Magician Helper Name Role Phone Taylor Bryant APRN Primary Care Provider [phone] Encounter Details Date Type Department Care Team (Latest Contact Info) Description 07/25/2023 Travel Social History Tobacco Use Types Packs/Day Years Used Date Smoking Tobacco: Former Smokeless Tobacco: Never Comments:quit at age 35 Alcohol Use Standard Drinks/Week Comments Yes 0 (1 standard drink = 0.6 oz pur e alcohol) social gatherings [facility] Utilities Answer Date Recorded In the past [...] TH Visit (TeleHealth) [place] [address] Jean-Pierre Peña MD [facility] HEMATOLOGY [place] [address] Vicky Burnham APRN [facility] [place] [address] 02/28/2024 11:30 AM EDT Infusion Hematology Oncology at [address] [address] 03/19/2024 12:45 PM EST Laboratory Appointment Lab at [facility] Hematology Oncology [address] [place] [address] 03/19/2024 1:45 PM EST Office Visit [place] [address] Jean-Pierre Peña MD [facility] HEMATOLOGY [place] [address] Vicky Burnham APRN [facility] [place] [address] 03/19/2024 3:30 PM EST Appointment [place]emat[place] [address] 04/30/2024 12:15 PM EST Laboratory Appointment Lab at [facility] Hematology Oncology [address] [place] [address] 04/30/2024 1:15 PM EST Office Visit [place] [address] Jean-Pierre Peña MD [facility] DR HEMATOLOGY [place] [address] Vicky Burnham APRN [facility] [place] [address] 04/30/2024 2:30 PM EST Appointment [place] [address] 05/22/2024 11:30 AM EST Office Visit Dermatology at [facility] [address] [place] [address] Inderjit Vilchis MD [facility] DR GILBERTO ST[place] [address] documented as of this encounter Visit Diagnoses Not on filedocumented in this encounter Care Teams Magician Helper Relationship Specialty Start Date End Date Taylor Bryant APRN [address] [place] [address] PCP - General 03/31/10 documented as of this encounter
--- OUTSIDE RECORDS SUMMARY | 2024-02-24 02:00 | XMS_ITS | Encounter Summary ---
Author Organization Formerly [facility] [place] [address] Care Team Providers Care Manager Assurance Name Role Phone Taylor Bryant ZARA Primary Care Provider [phone] [phone] Reason for Referral * Diagnostic Test (Routine) - Closed Specialty Diagnoses / Procedures Referred By Contac t Referred To Contact Radiology Diagnoses Malignant melanoma, unspecified site Procedures NM PET CT Standard Plus Extremities and Head Inderjit Vilchis MD [facility] DR GILBERT[place] [address] [place] [address] Referral ID Status Reason Start Date Expiration Date V isits Requested Visits Authorized [id number] Closed Specialty Service Requested 07/05/2023 01/02/2025 1 1 Reason for Visit * Diagnostic Test (Routine) - Closed Specialty Diagnoses / Procedures Referred By Contac t Referred To Contact Radiology Diagnoses Malignant melanoma, unspecified site Procedures NM PET CT Standard Plus Extremities and Head Inderjit Vilchis MD [facility] DR GILBERT[place] [address] [place] [address] Referral ID Status Reason Start Date Expiration Date V isits Requested Visits Authorized [id number] Closed Specialty Service Requested 07/05/2023 01/02/2025 1 1 Encounter Details Date Type Department Care Team (Latest Contact Info) Description 07/11/2023 7:45 AM EST Hospital Encounter [place] [address] Inderjit Vilchis MD [facility] DR GILBERTO [place] [address] Malignant melanoma, unspecified site Discharge Disposition: Home [...] TH Visit (TeleHealth) [place] [phone] Jean-Pierre Peña MD [facility] [address] [place] [address] Vicky Burnham APRN [facility] [place] [address] 02/28/2024 11:30 AM EDT Infusion Hematology Oncology at [address] [address] 03/19/2024 12:45 PM EST Laboratory Appointment Lab at [facility] Hematology Oncology [address] [place] [address] 03/19/2024 1:45 PM EST Office Visit [place] [phone] Jean-Pierre Peña MD [facility] DR [place] [address] Vicky Burnham APRN [facility] [place] [address] 03/19/2024 3:30 PM EST Appointment Hematology [place] [address] 04/30/2024 12:15 PM EST Laboratory Appointment Lab at [facility] Hematology Oncology [address] [place] [address] 04/30/2024 1:15 PM EST Office Visit [place] [address] Jean-Pierre Peña MD [facility] [address] [place] [address] Vicky Burnham APRN [facility] [place] [address] 04/30/2024 2:30 PM EST Appointment [place]ematology [place] [phone] 05/22/2024 11:30 AM EST Office Visit Dermatology at [facility] [address] [place] [address] Inderjit Vilchis MD [facility] DR GIL[place] [address] documented as of this encounter Procedures Procedure [...] who have questions please contact the health aged or disabled care worker that requested your imaging first. ? Narrative 07/14/2023 9:53 AM EST EXAMINATION: NM PET CT STANDARD PLUS EXTREMITIES AND HEAD CLINICAL HISTORY: Melanoma, staging C43.9, Malignant melanoma of skin, unspecified TECHNIQUE: Procedure: Following IV injection of 29-xcjdly-4-deoxyglucose (FDG) a standard uptake of approximately 60 [...] unspecified TECHNIQUE: Procedure: Following IV injection of 58-izqtpb-0-deoxyglucose(FDG) a standard uptake of approximately 60 minutes, [...] patients who have questions please contactthe health aged or disabled care worker that requested your imaging first. Inderjit Vilchis MD IMG PET ORDERAB LES * POCT Glucose (07/11/2023 7:51 AM EST) Glucose, POC 84 65 - 199 mg/dL [facility] Comment: Supplemental ranges: <140 mg/dL before meals <180 mg/dL all other times of the day Blood 07/11/2023 7:51 AM EST 07/11/2023 7:51 AM EST Inderjit Vilchis MD POINT OF CARE T EST ORDERABLES Performing Organization Address City/State/[facility] Co de Phone Number [facility] [place] [address] documented in this encounter Visit Diagnoses Diagnosis [...] Arm documented in this encounter Care Teams Manager Assurance Relationship Specialty Start Date End Date Taylor Bryant APRN [address] [place] [address] PCP - General 03/31/10 documented as of this encounter
--- OUTSIDE RECORDS SUMMARY | 2024-02-24 02:00 | XMS_ITS | Encounter Summary ---
Author Organization Formerly [facility] Address [facility] [place] [address] Care Team Providers Care Industrial Automation Specialist Name Role Phone Taylor Bryant APRN Primary Care Provider [phone] Encounter Details Date Type Department Care Team (Latest Contact Info) Description 07/25/2023 11:19 AM EDT - 07/25/2023 11:59 PM EDT Hospital Encounter Hematology and Oncology at [facility] [place] [phone] Medication management; Malignant melanoma of scalp Discharge [...] TH Visit (TeleHealth) [place]ematology [place] [address] Jean-Pierre Peña MD [facility] [place] [address] Vicky Burnham APRN [facility] [place] [place] [address] 02/28/2024 11:30 AM EDT Infusion Hematology Oncology at [address] [address] 03/19/2024 12:45 PM EST Laboratory Appointment Lab at [facility] Hematology Oncology [address] [place] [address] 03/19/2024 1:45 PM EST Office Visit [place]ematology [place] [phone] Jean-Pierre Peña MD [facility] [place] [address] Vicky Burnham APRN [facility] [place] [place] [address] 03/19/2024 3:30 PM EST Appointment Hematology [place] [phone] 04/30/2024 12:15 PM EST Laboratory Appointment Lab at [facility] Hematology Oncology [address] [place] [address] 04/30/2024 1:15 PM EST Office Visit Hematology [place] [phone] Jean-Pierre Peña MD [facility] [place] [address] Vicky Burnham APRN [facility] [place] [place] [address] 04/30/2024 2:30 PM EST Appointment Hematology [place] [phone] 05/22/2024 11:30 AM EST Office Visit Dermatology at [address] [phone] Inderjit Vilchis MD [facility] [place] [address] documented as of this encounter Procedures Procedure Name Priority Date/Time Associated Diagnosis Comments HEMOGRAM STAT 07/25/2023 11:32 AM EDT Malignant melanoma of scalp DIFFERENTIAL, AUTOMATED STAT 07/25/2023 11:32 AM EDT Malignant melanoma of scalp CBC (WITH DIFF) STAT 07/25/2023 11:32 AM EDT Malignant melanoma of scalp TSH STAT 07/25/2023 11:32 AM EDT Medication management T4, FREE STAT 07/25/2023 11:32 AM EDT Medication management LACTATE DEHYDROGENASE STAT 07/25/2023 11:32 AM EDT Malignant melanoma of scalp COMPREHENSIVE METABOLIC PANEL STAT 07/25/2023 11:32 AM EDT Malignant melanoma of scalp documented in this encounter Results * Differential, Automated (07/25/2023 11:32 AM EDT) Neutrophil % 56.8 % [facility] Neutrophil Absolute 3.72 1.70 - 6.10 x10(3)/[facility] Lymph % 31.7 % [facility] Lymphocytes Abs 2.1 0.9 - 3.2 x10(3)/[facility] LAB[facility] Monocyte % 7.8 % [facility] Monocyte Abs 0.5 0.3 - 0.9 x10(3)/[facility] LAB[facility] Eos % 2.6 % [facility] Eosinophils Abs 0.2 0.0 - 0.4 x10(3)/[facility] LAB[facility] Basophil % 0.8 % [facility] Baso Absolute 0.0 0.0 - 0.1 x10(3)/[facility] LAB[facility]AT[facility] Immature Gran % 0.30 % [facility] Comment: Immature granulocytes(IG's)percentage and absolute count will include metamyelocytes, myelocytes, and promyelocytes. Blood smears from CBCs yielding IG's will be scanned manually for concordance. If this scan disagrees with the automated IG or if promyelocytes are noted, a manual differential will be performed. Immature Gran Absolute 0.02 0.00 - 0.04 x10(3)/mcL [facility] Blood 07/25/2023 11:3 2 AM EDT 07/25/2023 11:44 AM EDT Narrative Resulting Agency Comment Spec In Lab Carlos Dominguez MD HEMATOLOGY ORDERABLE S [facility] [place] [address] * (ABNORMAL) Hemogram (07/25/2023 11:32 AM EDT) White Blood Cell 6.5 4.0 - 9.5 x10(3)/mc L [facility] Red Blood Cell 4.23 4.00 - 5.21 x10(6)/mc L [facility] Hemoglobin 13.0 11.7 - 15.5 g/dL [facility] Hematocrit 39.1 35.7 - 45.8 % [facility] Mean Cell Volume 92.4 82.6 - 94.4 fL [facility] Mean Cell Hemoglobin 30.7 27.1 - 32.0 pg [facility] Mean Cell Hemoglobin Concentration 33.2 31.7 - 35.0 g/dL [facility] Platelet 362(H) 145 - 357 x10(3)/mc L [facility] RDW Standard Deviation 46.7(H) 37.0 - 46.0 fL [facility] RDW coefficient of variation 13.8 11.5 - 14.1 % [facility] Mean Platelet Volume 11.2 7.6 - 12.9 fL [facility] NRBC% auto 0.0 % [facility] NRBC Absolute 0.000 0.000 - 0.000 x10(3)/mc L [facility] Blood 07/25/2023 11:3 2 AM EDT 07/25/2023 11:44 AM EDT Narrative Resulting Agency Comment Spec In Lab Carlos Dominguez MD HEMATOLOGY ORDERABLE S [facility] [address] * Comprehensive metabolic panel (non-fasting) (07/25/2023 11:32 AM EDT) Glucose 102 65 - 199 mg/dL [facility] Comment:Diabetes: >=200 mg/d L plus symptoms Blood Urea Nitrogen 16 8 - 18 mg/dL [facility] Creatinine 0.97 0.70 - 1.20 mg/dL [facility] Sodium 139 135 - 145 mmol/L [facility] Potassium 4.6 3.5 - 5.0 mmol/L [facility] Comment: Please note: ??Patients with WBC >100,000 may have falsely elevated Potassium levels. ??For accurate Potassium quantification in these patients send serum separator tube (gold top) for subsequent determinations. ??Contact the Clinical Chemistry Laboratory if there are any questions. Chloride 104 98 - 107 mmol/L [facility] Carbon Dioxide 27 22 - 31 mmol/L [facility] Anion Gap 8 5 - 15 mmol/L [facility] Calcium 9.5 8.5 - 10.5 mg/dL [facility] Protein, Total 6.7 6.1 - 8.0 g/dL [facility] Albumin 4.5 3.2 - 5.2 g/dL [facility] Aspartate Aminotransferase 13 0 - 30 unit/L [facility] Alanine Aminotransferase 12 0 - 30 unit/L [facility] Alkaline Phosphatase 66 35 - 105 unit/L [facility] Bilirubin, Total 0.5 0.2 - 1.3 mg/dL [facility] Est Glomerular Filtration Rate 68 >=60 mL/min/1. 73 m?? [facility] Comment: This patient's estimated GFR [...] Dominguez MD CHEMISTRY ORDERABLES Performing Organization Address City/[facility] Co de Phone Number [facility] [place] [address] * Lactate Dehydrogenase (07/25/2023 11:32 AM EDT) Lactate Dehydrogenase 172 110 - 220 unit/L [facility] Blood 07/25/2023 11:3 2 AM EDT 07/25/2023 11:44 AM EDT Narrative Resulting Agency Comment Spec In Lab Carlos Dominguez MD CHEMISTRY ORDERABLES Performing Organization Address [facility] Co de Phone Number [facility] [place] [address] * T4, free (07/25/2023 11:32 AM EDT) Free T4 1.30 0.93 - 1.70 ng/dL [facility] Comment: Reference Interval (ng/dL): Females: ??First Trimester: 0.97-1.68 ??Second Trimester: 0.77-1.51 ??Third Trimester: 0.77-1.49 Blood 07/25/2023 11:3 2 AM EDT 07/25/2023 11:44 AM EDT Narrative Resulting Agency Comment Spec In Lab Carlos Dominguez MD CHEMISTRY ORDERABLES Performing Organization Address City/[facility] Co de Phone Number [facility] [place] [address] * TSH (07/25/2023 11:32 AM EDT) Thyroid Stimulating Hormone 0.87 0.27 - 4.20 mcIU/mL [facility] Comment: Reference Interval (mcIU/mL): Females: ??First Trimester: 0.23-3.88 ??Second Trimester: 0.22-3.90 ??Third Trimester: 0.44-4.66 Blood 07/25/2023 11:3 2 AM EDT 07/25/2023 11:44 AM EDT Narrative Resulting Agency Comment Spec In Lab Carlos Dominguez MD CHEMISTRY ORDERABLES [facility] [place] [address] documented in this encounter Visit Diagnoses Diagnosis Medication management Encounter for long-term (current) use of other medications Malignant melanoma of scalp Malignant melanoma of skin of scalp and neck documented in this encounter Care Teams Industrial Automation Specialist Relationship Specialty Start Date End Date Taylor Bryant APRN [address] [place] [address] PCP - General 03/31/10 documented as of this encounter
--- OUTSIDE RECORDS SUMMARY | 2024-02-24 02:00 | XMS_ITS | Encounter Summary ---
Author Organization [facility] [place] [address] Care Team Providers Care Teletypesetter Operator Name Role Phone Taylor Bryant APRN Primary Care Provider [phone] Reason for Referral * Consultation (Routine) - Authorized Specialty Diagnoses / Procedures Referred By Crista padron Referred To Contact Dermatology Diagnoses Pigmented skin lesion suspicious for malignant neoplasm Taylor Bryant APRN [address] [place] [address] [facility] Dermatology [address] [place] [address] Referral ID Status Reason Start Date Expiration Date Visits Requested Visits Authorized [id number] Authorized Consult, Test & Treat PCP Updated and/or Approved 06/25/2023 06/24/2024 6 6 Encounter Details Date Type Department Care Team (Latest Contact Info) Description 06/25/2023 Transcribe Orders eDH Incoming Referrals [phone] Taylor Bryant APRN [address] [place] [address] Pigmented skin lesion suspicious for [...] TH Visit (TeleHealth) Hematology [place] [phone] Jean-Pierre Peña MD [facility] [place] [address] Vicky Burnham APRN [facility] [place] [address] 02/28/2024 11:30 AM EDT Infusion Hematology Oncology at [address] [address] 03/19/2024 12:45 PM EST Laboratory Appointment Lab at [facility] Hematology Oncology [address] [place] [address] 03/19/2024 1:45 PM EST Office Visit Hematology [place] [address] Jean-Pierre Peña MD [facility] DR [place] [address] Vicky Burnham SECURITY RESEARCHER [facility] [place] [address] 03/19/2024 3:30 PM EST Appointment Hematology [place] [address] 04/30/2024 12:15 PM EST Laboratory Appointment Lab at [facility] Hematology Oncology [address] [place] [address] 04/30/2024 1:15 PM EST Office Visit Hematology [place] [address] Jean-Pierre Peña MD [facility] DR [place] [address] Vicky Burnham APRN [facility] [place] [address] 04/30/2024 2:30 PM EST Appointment Hematology [place] [address] 05/22/2024 11:30 AM EST Office Visit Dermatology at [place] [address] [place] [address] Inderjit Vilchis MD [facility] DR GILBERTO [place] [address] Scheduled Referrals Name Type Priority Associated Diagnoses Order Schedule Referral to Dermatology Outpatient Referral Routine Pigmented skin lesion suspicious for malignant neoplasm Ordered: 06/25/2023 documented as of this encounter Visit Diagnoses Diagnosis Pigmented skin lesion suspicious for malignant neoplasm documented in this encounter Care Teams Teletypesetter Operator Relationship Specialty Start Date End Date Taylor Bryant APRN [address] [place] [address] PCP - General 03/31/10 documented as of this encounter
--- OUTSIDE RECORDS SUMMARY | 2024-02-24 02:00 | XMS_ITS | Encounter Summary ---
Author Organization [facility] Address [facility] [place] [address] Care Team Providers Care Tool And Die Machinist Name Role Phone AnnetteTaylor ZARA Primary Care Provider [phone] Reason for Referral * Diagnostic Test (Routine) - Closed Specialty Diagnoses / Procedures Referred By Crista t Referred To Contact Radiology Diagnoses Malignant melanoma, unspecified site Procedures MRI Brain wwo Contrast (Generic) Neida Luong APRN [facility] [address] [place] [address] [place] [address] Referral ID Status Reason Start Date Expiration Date V isits Requested Visits Authorized [id number] Closed Specialty Service Requested 07/19/2023 01/18/2025 1 1 Reason for Visit * Diagnostic Test (Routine) - Closed Specialty Diagnoses / Procedures Referred By Contjono t Referred To Contact Radiology Diagnoses Malignant melanoma, unspecified site Procedures MRI Brain wwo Contrast (Generic) Neida Luong APRN [facility] [place] [address] [place] [address] Referral ID Status Reason Start Date Expiration Date V isits Requested Visits Authorized [id number] Closed Specialty Service Requested 07/19/2023 01/18/2025 1 1 Encounter Details Date Type Department Care Team ([facility] st Contact Info) Description 08/01/2023 7:23 AM EDT - 08/01/2023 11:59 PM EDT Hospital Encounter MRI at [facility] [place] [address] Neida Luong APRN [facility] [place] [address] Malignant melanoma, unspecified site Discharge Disposition: Home Social History Tobacco Use Types Packs/Day Years Used Date Smoking Tobacco: Former Smokeless Tobacco: Never Comments:quit at age 35 Alcohol Use Standard Drinks/Week Comments Yes 0 (1 standard drink = 0.6 oz pur e alcohol) social gatherings [facility] Utilities Answer Date Recorded In the [...] in a snf (including now)? No 07/24/2023 Sex and Gender [...] Keeley Gutierrez AGE: 58 y.o. : [address] [place] [address] Female [phone] (home) Telephone Information: Taylor Bryant APRN None Allergies Allergen Reactions Codeine Phosphate CIS - vomit Date/Time of call: July 27, 2023/2:47 PM/ SCHEDULED SCAN: MRI BRAIN WWO CONTRAST (GENERIC) [[id number]] HEIGHT: WEIGHT: Have you had a PREVIOUS MRI SCAN? Yes Are you claustrophobic or anxious in the scanner? Yes CAN YOU LAY FLAT? yes Do you have trouble breathing when lying flat? No DO YOU HAVE ANY INVOLUNTARY MOVEMENTS? No DO YOU TAKE PAIN MEDICATION ON A DAILY BASIS? No PLAN: Ativan ordered You must have a bus driver supervisor present when you check in. This patient has been informed that they require a bus driver supervisor to drive them home after this procedure. In the absence of a bus driver supervisor, IR will not be able tosedate for your scan. Pt verbalized understanding of these instructions during the pre-procedure education via phone. Yes Cooper of bus driver supervisor: Phone number: PRIOR SCAN DATE/S SEDATION TYPE SUCCESSFUL None prior 08/01/23 MRI brain wwo Ativan 1mg Po x 1 Revised 11/02/2022 documented in this encounter Plan of Treatment Upcoming Encounters Date Type Department Care Team (Late st Contact Info) Description 02/27/2024 8:15 AM EDT TH Visit (TeleHealth) [place] [address] Jean-Pierre Peña MD [facility] [place] [address] Vicky Burnham APRN [facility] [place] [address] 02/28/2024 11:30 AM EDT Infusion Hematology Oncology at [address] [address] 03/19/2024 12:45 PM EST Laboratory Appointment Lab at [facility] Hematology [address] [address] 03/19/2024 1:45 PM EST Office Visit [place]ematology [place] [phone] Jean-Pierre Peña MD [facility] [place] [address] Vicky Burnham APRN [facility] [place] [place] [address] 03/19/2024 3:30 PM EST Appointment Hematology [place] [address] 04/30/2024 12:15 PM EST Laboratory Appointment Lab at [facility] Hematology Oncology [address] [place] [address] 04/30/2024 1:15 PM EST Office Visit [place]ematology [place] [phone] Jean-Pierre Peña MD [facility] [place] [address] Vicky Burnham APRN [facility] [place] [address] 04/30/2024 2:30 PM EST Appointment Hematology and Oncology at [facility] [place] [place] [address] 05/22/2024 11:30 AM EST Office Visit Dermatology at [facility] [address] [place] [address] Inderjit Vilchis MD [facility] DR G[place] [address] documented as of this encounter Procedures Procedure [...] who have questions please contact the health childcare teacher that requested your imaging first. ? Electronically signed by: Matty Mukherjee MD, [facility] ([phone]), at 08/01/2023 3:10 PM Narrative 08/01/2023 3:10 [...] patients who have questions please contactthe health childcare teacher that requested your imaging first. Electronically signed by: Matty Mukherjee MD, [facility]([phone]), at 08/01/2023 3:10 PM Neida Luong APRN [...] mg documented in this encounter Care Teams Tool And Die Machinist Relationship Specialty Start Date End Date Taylor Bryant APRN [address] [place] [address] PCP - General 03/31/10 documented as of this encounter
--- OUTSIDE RECORDS SUMMARY | 2024-02-24 02:00 | XMS_ITS | Encounter Summary ---
Author Organization [facility] Address [facility] [place] [address] Care Team Providers Care Potato Peeling Machine Operator Name Role Phone Taylor Bryant ZARA Primary Care Provider +1 [phone] Encounter Details Date Type Department Care Team [...] TH Visit (TeleHealth) Hematology [place] [address] Jean-Pierre Peña MD [facility] DR HEMATOLOGY [place] [address] Vicky Burnham APRN [facility] [place] [address] 02/28/2024 11:30 AM EDT Infusion Hematology Oncology at [address] [address] 03/19/2024 12:45 PM EST Laboratory Appointment Lab at [facility] [place] Oncology [address] [place] [address] 03/19/2024 1:45 PM EST Office Visit Hematology [place] [address] Jean-Pierre Peña MD [facility] DR HEMATOLOGY [place] [address] Vicky Burnham APRN [facility] [place] [address] 03/19/2024 3:30 PM EST Appointment Hematology and Oncology at [place] [phone] 04/30/2024 12:15 PM EST Laboratory Appointment Lab at [facility] [place] [address] [address] 04/30/2024 1:15 PM EST Office Visit Hematology [place] [address] Jean-Pierre Peña MD [facility] DR HEMATOLOGY [place] [address] Vicky Burnham APRN [facility] [place] [address] 04/30/2024 2:30 PM EST Appointment Hematology [place] [address] 05/22/2024 11:30 AM EST Office Visit Dermatology at [address] [phone] Inderjit Vilchis MD [facility] DR GILBERTO [place] [address] documented as of this encounter Visit Diagnoses Not on filedocumented in this encounter Care Teams Potato Peeling Machine Operator Relationship Specialty Start Date End Date Taylor Bryant APRN [address] [place] [address] PCP - General 03/31/10 documented as of this encounter
--- OUTSIDE RECORDS SUMMARY | 2024-02-24 02:00 | XMS_ITS | Encounter Summary ---
Author Organization [facility] Address [facility] [place] [address] Care Team Providers Care Exterminator Name Role Phone Taylor Bryant APRN Primary Care Provider +1 [phone] Reason for Visit * Diagnostic Test (Routine) - Closed Specialty Diagnoses / Procedures Referred By Crista t Referred To Contact Radiology Diagnoses Malignant melanoma, unspecified site Procedures NM PET CT Standard Plus Extremities and Head Inderjit Vilchis MD [facility] DR GILBERTO [place] [address] [facility] [place] [address] Referral ID Status Reason Start Date Expiration Date V isits Requested Visits Authorized [id number] Closed Specialty Service Requested 07/05/2023 01/02/2025 1 1 Encounter Details Date Type Department Care Team (Latest Contact Info) Description 07/11/2023 7:46 AM EST - 07/11/2023 11:59 PM [facility] Hospital Encounter [place] [address] [facility] DR GILBERTO [place] [address] Discharge Disposition: Home Social History [...] TH Visit (TeleHealth) [place] [address] Jean-Pierre Peña MD [facility] [place] [address] [facility] [place] [address] 02/28/2024 11:30 AM EDT Infusion Hematology Oncology at [address] [address] 03/19/2024 12:45 PM EST Laboratory Appointment Lab at [facility] [place] Oncology [address] [place] [address] 03/19/2024 1:45 PM EST Office Visit [place]ematology [place] [address] Jean-Pierre Peña MD [facility] [place] [address] [facility] [place] [address] 03/19/2024 3:30 PM EST Appointment Hematology [place] [address] 04/30/2024 12:15 PM EST Laboratory Appointment Lab at [facility] [place]ematology Oncology [address] [place] [address] 04/30/2024 1:15 PM EST Office Visit [place]ematology [place] [address] Jean-Pierre Peña MD [facility] DR [place] [address] [facility] [place] [place] [address] 04/30/2024 2:30 PM EST Appointment Hematology [place] [address] 05/22/2024 11:30 AM EST Office Visit Dermatology at [address] [address] [address] [facility] DR GILBERT[place] [address] documented as of this encounter Procedures Procedure [...] who have questions please contact the health medicare contact specialist that requested your imaging first. ? Electronically signed by: Renard Hoffman MD, [facility] ([phone]), at 07/14/2023 9:53 AM Narrative 07/14/2023 9:53 AM EST EXAMINATION: NM PET CT STANDARD PLUS EXTREMITIES AND HEAD CLINICAL HISTORY: Melanoma, staging C43.9, Malignant melanoma of skin, unspecified TECHNIQUE: Procedure: Following IV injection of 92-quqbdt-3-deoxyglucose (FDG) a standard uptake of approximately 60 [...] unspecified TECHNIQUE: Procedure: Following IV injection of 07-zuxwjn-2-deoxyglucose(FDG) a standard uptake of approximately 60 minutes, [...] patients who have questions please contactthe health medicare contact specialist that requested your imaging first. Electronically signed by: Renard Hoffman MD, [facility]([phone]), at 07/14/2023 9:53 AM Inderjit Vilchis MD IMG PET ORDERAB LES documented in this encounter Visit Diagnoses Not on filedocumented in this encounter Care Teams Exterminator Relationship Specialty Start Date End Date Tayolr Bryant APRN [address] [place] [address] PCP - General 03/31/10 documented as of this encounter
--- OUTSIDE RECORDS SUMMARY | 2024-02-24 02:00 | XMS_ITS | Encounter Summary ---
Author Organization [facility] [place] [address] Care Team Providers Care Machine Maintenance Supervisor Name Role Phone Taylor Bryant APRN Primary Care Provider [phone] [phone] Reason for Visit * Reason Onset Date Comments Other 12/23/2020 Encounter Details Date Type Department Care Team (Late st Contact Info) Description 12/23/2020 Telephone [place] [address] Yusuf Rivera RN Other Social History Tobacco [...] her to the secretaries to setup a FU TH appointment with Dr. Rosario. documented in this encounter Plan of Treatment Upcoming Encounters Date Type Department Care Team (Late st Contact Info) Description 02/27/2024 8:15 AM EDT TH Visit (TeleHealth) Hematology [place] [address] Jean-Pierre Peña MD [facility] DR HEMATOLOGY [place] [address] Vicky Burnham APRN [facility] [place] [address] 02/28/2024 11:30 AM EDT Infusion Hematology Oncology at [address] [address] 03/19/2024 12:45 PM EST Laboratory Appointment Lab at [facility] Hematology Oncology [address] [place] [address] 03/19/2024 1:45 PM EST Office Visit Hematology [place] [address] Jean-Pierre Peña MD [facility] DR HEMATOLOGY [place] [address] Vicky Burnham APRN [facility] [place] [address] 03/19/2024 3:30 PM EST Appointment Hematology [place] [address] 04/30/2024 12:15 PM EST Laboratory Appointment Lab at [facility] Hematology Oncology [address] [place] [address] 04/30/2024 1:15 PM EST Office Visit Hematology [place] [address] Jean-Pierre Peña MD [facility] DR HEMATOLOGY [place] [address] Vicky Burnham APRN [facility] [place] [address] 04/30/2024 2:30 PM EST Appointment Hematology [place] [address] 05/22/2024 11:30 AM EST Office Visit Dermatology at [facility] [address] [place] [address] Inderjit Vilchis MD [facility] DR GILBERTO [place] [address] documented as of this encounter Visit Diagnoses Not on filedocumented in this encounter Care Teams Machine Maintenance Supervisor Relationship Specialty Start Date End Date Taylor Bryant APRN [address] [place] [address] PCP - General 03/31/10 documented as of this encounter
--- OUTSIDE RECORDS SUMMARY | 2024-02-24 02:00 | XMS_ITS | Encounter Summary ---
Author Organization [facility] Address [facility] [place] [address] Care Team Providers Care Weapons Mechanic Name Role Phone Taylor Bryant ZARA Primary Care Provider +1 -[phone] Encounter Details Date Type Department Care Team [...] TH Visit (TeleHealth) Hematology [place] [address] Jean-Pierre Peña MD [facility] DR [place] [address] Vicky Burnham APRN [facility] [place] [address] 02/28/2024 11:30 AM EDT Infusion Hematology Oncology at [address] [address] 03/19/2024 12:45 PM EST Laboratory Appointment Lab at [facility] Hematology Oncology [address] [place] [address] 03/19/2024 1:45 PM EST Office Visit Hematology [place] [address] Jean-Pierre Peña MD [facility] DR [place] [address] Vicky Burnham APRN [facility] [place] [address] 03/19/2024 3:30 PM EST Appointment Hematology and Oncology at [place] [phone] 04/30/2024 12:15 PM EST Laboratory Appointment Lab at [facility] Hematology [address] [address] 04/30/2024 1:15 PM EST Office Visit Hematology [place] [address] Jean-Pierre Peña MD [facility] DR [place] [address] Vicky Burnham APRN [facility] [place] [address] 04/30/2024 2:30 PM EST Appointment Hematology [place] [address] 05/22/2024 11:30 AM EST Office Visit Dermatology at [address] [phone] Inderjit Vilchis MD [facility] DR GILBERT[place] [address] documented as of this encounter Visit Diagnoses Not on filedocumented in this encounter Care Teams Weapons Mechanic Relationship Specialty Start Date End Date Taylor Bryant APRN [address] [place] [address] PCP - General 03/31/10 documented as of this encounter
--- OUTSIDE RECORDS SUMMARY | 2024-02-24 02:00 | XMS_ITS | Encounter Summary ---
Author Organization [facility] Address [facility] [place] [address] Care Team Providers Care Field Collector Name Role Phone Taylor Bryant APRN Primary Care Provider +1 -[phone] Encounter Details Date Type Department Care Team (Latest Contact Info) Description 07/29/2023 Travel Social History Tobacco Use Types Packs/Day Years Used Date Smoking Tobacco: Former Smokeless Tobacco: Never Comments:quit at age 35 Alcohol Use Standard Drinks/Week Comments Yes 0 (1 standard drink = 0.6 oz pur e alcohol) social gatherings [facility] Utilities Answer Date Recorded In the [...] Hematology [place] [address] Jean-Pierre Peña MD [facility] [place] [address] Vicky Burnham APRN [facility] [place] [address] 02/28/2024 11:30 AM EDT Infusion Hematology Oncology at [address] [address] 03/19/2024 12:45 PM EST Laboratory Appointment Lab at [facility] Hematology Oncology [address] [place] [address] 03/19/2024 1:45 PM EST Office Visit Hematology [place] [address] Jean-Pierre Peña MD [facility] [place] [address] Vicky Burnham APRN [facility] [place] [address] 03/19/2024 3:30 PM EST Appointment Hematology [place] [address] 04/30/2024 12:15 PM EST Laboratory Appointment Lab at [facility] Hematology Oncology [address] [place] [address] 04/30/2024 1:15 PM EST Office Visit Hematology [place] [address] Jean-Pierre Peña MD [facility] DR [place] [address] Vicky Burnham APRN [facility] [place] [address] 04/30/2024 2:30 PM EST Appointment Hematology [place] [address] 05/22/2024 11:30 AM EST Office Visit Dermatology at [facility] [address] [place] [address] Inderjit Vilchis MD [facility] DR GILBERTO [place] [address] documented as of this encounter Visit Diagnoses Not on filedocumented in this encounter Care Teams Field Collector Relationship Specialty Start Date End Date Taylor Bryant APRN [address] [place] [address] PCP - General 03/31/10 documented as of this encounter
--- OUTSIDE RECORDS SUMMARY | 2024-02-24 02:01 | XMS_ITS | Encounter Summary ---
Author Organization [facility] [place] [address] Care Team Providers Care Mail Order Sorter Name Role Phone Taylor Bryant APRN Primary Care Provider +1 -[phone] Encounter Details Date Type Department Care Team (Late Contact Info) Description 10/26/2017 11:45 AM EDT - 10/26/2017 11:59 PM EDT Hospital Encounter XRay at [address] [place] [address] Carlos Caceres MD [facility] [place] [address] Pain in both knees, unspecified chronicity Discharge [...] TH Visit (TeleHealth) Hematology [place] [address] Jean-Pierre Peña MD [facility] [place] [address] Vicky Burnham APRN [facility] [place] [address] 02/28/2024 11:30 AM EDT Infusion Hematology Oncology at [address] [address] 03/19/2024 12:45 PM EST Laboratory Appointment Lab [place] [facility] [place] [address] [place] [address] 03/19/2024 1:45 PM EST Office Visit Hematology [place] [address] Jean-Pierre Peña MD [facility] [place] [address] Vicky Burnham APRN [facility] [place] [address] 03/19/2024 3:30 PM EST Appointment Hematology [place] [address] 04/30/2024 12:15 PM EST Laboratory Appointment Lab [place] [facility] [place] On[place] [address] [place] [address] 04/30/2024 1:15 PM EST Office Visit Hematology [place] [address] Jean-Pierre Peña MD [facility] [place] [address] Vicky Burnham APRN [facility] [place] [address] 04/30/2024 2:30 PM EST Appointment Hematology and Oncology at [facility] [place] [address] 05/22/2024 11:30 AM EST Office Visit Dermatology at [facility] [address] [place] [address] Inderjit Vilchis MD [facility] [place] [address] documented as of this encounter Procedures Procedure Name Priority Date/Time Associated Diagnosis Comments XR KNEE STANDING ALIGNMENT AP LAT [place] SK[place] BILAT Routine 10/26/2017 12:14 PM EDT Pain in both knees, unspecified chronicity documented in this encounter Results * XR Knee Standing Alignment AP Lat [place] Bilat (10/26/2017 12:14 PM EDT) Anatomical Region [...] chronicity documented in this encounter Care Teams Mail Order Sorter Relationship Specialty Start Date End Date Taylor Bryant APRN [address] [place] [address] PCP - General 03/31/10 documented as of this encounter
--- OUTSIDE RECORDS SUMMARY | 2024-02-24 02:01 | XMS_ITS | Encounter Summary ---
Author Organization [facility] Address [facility] [place] [address] Care Team Providers Care Water Pumping Station Engineer Name Role Phone Taylor Bryant APRN Primary Care Provider +1 [phone] Encounter Details Date Type Department Care Team (Late st Contact Info) Description 06/28/2016 10:40 AM EST - 06/28/2016 11:09 AM EST Hospital Encounter XRay at [address] [place] [address] Carlos Caceres MD [facility] ORTHOP[place] [address] Psoriatic arthritis Discharge Disposition: Home Social History [...] TH Visit (TeleHealth) [place]ology [place] [address] Jean-Pierre Peña MD [facility] HEMATOLOGY [place] [address] Vicky Burnham APRN [facility] [place] [address] 02/28/2024 11:30 AM EDT Infusion Hematology Oncology at [address] [address] 03/19/2024 12:45 PM EST Laboratory Appointment Lab at [facility] Hematology Oncology [address] [place] [address] 03/19/2024 1:45 PM EST Office Visit Hematology [place] [address] Jean-Pierre Peña MD [facility] DR HEMATOLOGY [place] [address] Vicky Burnham APRN [facility] [place] [address] 03/19/2024 3:30 PM EST Appointment Hematology [place] [address] 04/30/2024 12:15 PM EST Laboratory Appointment Lab at [facility] Hematology [address] [address] 04/30/2024 1:15 PM EST Office Visit [place]ematology [place] [address] Jean-Pierre Peña MD [facility] DR HEMATOLOGY [place] [address] Vicky Burnham APRN [facility] [place] [address] 04/30/2024 2:30 PM EST Appointment Hematology [place] [address] 05/22/2024 11:30 AM EST Office Visit Dermatology at [facility] [address] [place] [address] Inderjit Vilchis MD [facility] DR GILBERTO [place] [address] documented as of this encounter Procedures Procedure [...] documented in this encounter Care Teams Water Pumping Station Engineer Relationship Specialty Start Date End Date Taylor Bryant APRN [address] [place] [address] PCP - General 03/31/10 documented as of this encounter
--- OUTSIDE RECORDS SUMMARY | 2024-02-24 02:01 | XMS_ITS | Encounter Summary ---
Author Organization [facility] Address [facility] [place] [address] Care Team Providers Care Still Cleaner Name Role Phone Taylor Bryant APRN Primary Care Provider +1 [phone] Reason for Visit * Reason Comments Follow-up bilat knee pain - fe ll on right knee, feels like she tore her meniscus again * Consultation (Routine) - Closed Specialty Diagnoses / Procedures Referred By Contjono t Referred To Contact Orthopaedics Diagnoses right knee Kyle Palumbo MD [facility] [address] [place] [address] SANDRA VINES [address] Carlos Caceres MD [facility] [place] [address] Referral ID Status Reason Start Date Expiration Date V isits Requested Visits Authorized [id number] Closed Consult, Test & Treat Connection Center 10/20/2017 10/20/2018 1 1 Encounter Details Date Type Department Care Team (Late st Contact Info) Description 10/26/2017 1:00 PM EDT Office [place] [address] Carlos Caceres MD [facility] [place] [address] Primary osteoarthritis of right knee (Primary Dx); [...] TH Visit (TeleHealth) Hematology [place] [address] Jean-Pierre Peña MD [facility] DR [place] [address] Vicky Burnham APRN [facility] [place] [address] 02/28/2024 11:30 AM EDT Infusion Hematology Oncology at [address] [address] 03/19/2024 12:45 PM EST Laboratory Appointment Lab at [facility] [place] Oncology [address] [place] [address] 03/19/2024 1:45 PM EST Office Visit Hematology [place] [address] Jean-Pierre Peña MD [facility] DR [place] [address] Vicky Burnham APRN [facility] [place] [address] 03/19/2024 3:30 PM EST Appointment Hematology [place] [address] 04/30/2024 12:15 PM EST Laboratory Appointment Lab at [facility] Hematology Oncology [address] [place] [id number] 04/30/2024 1:15 PM EST Office Visit Hematology [place] [address] Jean-Pierre Peña MD [facility] DR [place] [address] Vicky Burnham APRN [facility] [place] [address] 04/30/2024 2:30 PM EST Appointment Hematology [place] [address] 05/22/2024 11:30 AM EST Office Visit Dermatology at [address] [address] Inderjit Vilchis MD [facility] DR GILBERT[place] [address] documented as of this encounter Visit Diagnoses [...] mg documented in this encounter Care Teams Still Cleaner Relationship Specialty Start Date End Date Taylor Bryant APRN [address] [place] [address] PCP - General 03/31/10 documented as of this encounter
--- OUTSIDE RECORDS SUMMARY | 2024-02-24 02:01 | XMS_ITS | Encounter Summary ---
Author Organization [facility] Address [facility] [place] [address] Care Team Providers Care Cnc Specialist Name Role Phone Taylro Bryant APRN Primary Care Provider [phone] [phone] Reason for Visit * Reason Comments Left Knee Pain discuss XR/MRI Encounter Details Date Type Department Care Team (Late st Contact Info) Description 06/29/2016 11:00 AM EST Office [place] [address] Carlos Caceres MD [facility] [place] [address] Primary osteoarthritis of left knee; Psoriatic arthritis [...] TH Visit (TeleHealth) [place] [address] Jean-Pierre Peña MD [facility] [address] [place] [address] Vicky Burnham APRN [facility] [place] [place] [address] 02/28/2024 11:30 AM EDT Infusion Hematology Oncology at [address] [address] 03/19/2024 12:45 PM EST Laboratory Appointment Lab at [facility] Hematology Oncology [address] [place] [address] 03/19/2024 1:45 PM EST Office Visit [place] [address] Jean-Pierre Peña MD [facility] [place] [address] Vicky Burnham APRN [facility] [place] [place] [address] 03/19/2024 3:30 PM EST Appointment [place]emat[place] [address] 04/30/2024 12:15 PM EST Laboratory Appointment Lab at [facility] Hematology [address] [address] 04/30/2024 1:15 PM EST Office Visit [place] [address] Jean-Pierre Peña MD [facility] [place] [address] Vicky Burnham NURSE ANESTHETIST [facility] [place] [place] [address] 04/30/2024 2:30 PM EST Appointment [place] [address] 05/22/2024 11:30 AM EST Office Visit Dermatology at [address] [place] [address] Inderjit Vilchis MD [facility] DR [place] [address] documented as of this encounter Visit Diagnoses [...] mg documented in this encounter Care Teams Cnc Specialist Relationship Specialty Start Date End Date Taylor Bryant APRN [address] [place] [address] PCP - General 03/31/10 documented as of this encounter
--- OUTSIDE RECORDS SUMMARY | 2024-02-24 02:01 | XMS_ITS | Encounter Summary ---
Author Organization [facility] Address [facility] [place] [address] Care Team Providers Care Full Decator Operator Name Role Phone Taylor Bryant ZARA Primary Care Provider [phone] Encounter Details Date Type Department Care Team (Late Contact Info) Description 06/09/2016 Orders [place] [address] Carlos Caceres MD [facility] [place] [address] Social History Tobacco Use Types Packs/Day Years [...] TH Visit (TeleHealth) [place]ematology [place] [address] Jean-Pierre Peña MD [facility] DR [place] [address] Vicky Burnham APRN [facility] [place] [address] 02/28/2024 11:30 AM EDT Infusion Hematology Oncology at [address] [address] 03/19/2024 12:45 PM EST Laboratory Appointment Lab at [facility] Hematology Oncology [address] [place] [address] 03/19/2024 1:45 PM EST Office Visit [place]ematology [place] [address] Jean-Pierre Peña MD [facility] DR [place] [address] Vicky Burnham APRN [facility] [place] [address] 03/19/2024 3:30 PM EST Appointment Hematology [place] [address] 04/30/2024 12:15 PM EST Laboratory Appointment Lab at [facility] Hematology Oncology [address] [place] [address] 04/30/2024 1:15 PM EST Office Visit Hematology [place] [address] Jean-Pierre Peña MD [facility] DR [place] [address] Vicky Burnham APRN [facility] [place] [address] 04/30/2024 2:30 PM EST Appointment Hematology [place] [address] 05/22/2024 11:30 AM EST Office Visit Dermatology at [place] [address] [place] [address] Inderjit Vilchis MD [facility] DR GILBERT[place] [address] documented as of this encounter Visit Diagnoses Not on filedocumented in this encounter Care Teams Full Decator Operator Relationship Specialty Start Date End Date Taylor Bryant APRN [address] [place] [address] PCP - General 03/31/10 documented as of this encounter
--- OUTSIDE RECORDS SUMMARY | 2024-02-24 02:01 | XMS_ITS | Encounter Summary ---
Author Organization [facility] Address [facility] [place] [address] Care Team Providers Care Graphic Art Technician Name Role Phone Taylor Bryant APRN Primary Care Provider [phone] Reason for Referral * Consultation (Routine) - Closed Specialty Diagnoses / Procedures Referred By Crista padron Referred To Contact Rheumatology Diagnoses Psoriatic arthritis Carlos Caceres MD [facility] DR ORTHOPA[place] [address] [facility] Rheumatology [address] [place] [address] Referral ID Status Reason Start Date Expiration Date V isits Requested Visits Authorized [id number] Closed Consult, Test & Treat 12/14/2017 12/14/2018 1 1 Reason for Visit * Reason Comments Follow-up bilat knee pain Encounter Details Date Type Department Care Team ([facility] st Contact Info) Description 12/14/2017 4:30 PM EDT Office [place] [address] Carlos Caceres MD [facility] DR ORTHOPA[place] [address] Pain in both knees, unspecified chronicity; Psoriatic [...] NAME: Keeley Gutierrez AGE: 52 y.o. MR#: [id number] DATE OF VISIT: 12/14/2017 CHIEF COMPLAINT: Problem [...] ladder, attempting conservative the rapy first with lizp-dbo-xapjefo anti-inflammatories such as ibuprofen or naproxen along [...] above. We discussed a referral to a family consultant to evaluate her psoriatic arthritis. We have [...] TH Visit (TeleHealth) [place] [address] Jean-Pierre Peña MD [facility] DR HEMATOLOGY [place] [address] Vicky Burnham APRN [facility] [place] [address] 02/28/2024 11:30 AM EDT Infusion Hematology Oncology at [address] [address] 03/19/2024 12:45 PM EST Laboratory Appointment Lab at [facility] Hematology Oncology [address] [place] [address] 03/19/2024 1:45 PM EST Office Visit [place] [address] Jean-Pierre Peña MD [facility] DR HEMATOLOGY [place] [address] Vicky Burnham APRN [facility] [place] [address] 03/19/2024 3:30 PM EST Appointment Hematology [place] [address] 04/30/2024 12:15 PM EST Laboratory Appointment Lab at [facility] Hematology Oncology [address] [place] [address] 04/30/2024 1:15 PM EST Office Visit [place]ematology [place] [address] Jean-Pierre Peña MD [facility] DR HEMATOLOGY [place] [address] Vicky Burnham APRN [facility] [place] [address] 04/30/2024 2:30 PM EST Appointment [place]ematology [place] [address] 05/22/2024 11:30 AM EST Office Visit [address]atology [address] [place] [address] Inderjit Vilchis MD [facility] DR GILBERTO [place] [address] Scheduled Referrals Name Type Priority Associated Diagnoses Order Schedule Referral to Rheumatology Outpatient Referral Routine Psoriatic arthritis Ordered: 12/14/2017 documented as of this encounter Visit Diagnoses Diagnosis Pain in both knees, unspecified chronicity Psoriatic arthritis Psoriatic arthropathy documented in this encounter Care Teams Graphic Art Technician Relationship Specialty Start Date End Date Taylor Bryant APRN [address] [place] [address] PCP - General 03/31/10 documented as of this encounter
--- OUTSIDE RECORDS SUMMARY | 2024-02-24 02:01 | XMS_ITS | Encounter Summary ---
Author Organization [facility] Address [facility] [place] [address] Care Team Providers Care Agri Business Agent Name Role Phone Taylor Bryant APRN Primary Care Provider [phone] Reason for Visit * Consultation (Routine) - Closed Specialty Diagnoses / Procedures Referred By Crista padron Referred To Contact Rheumatology Diagnoses Arthropathic psoriasis, unspecified Taylor Bryant APRN [address] [place] [address] [facility] [address] [place] [phone] Referral ID Status Reason Start Date Expiration Date V isits Requested Visits Authorized [id number] Closed Consult, Test & Treat [facility] PCP Updated and/or Approved 07/09/2020 07/09/2021 6 6 Encounter Details Date Type Department Care Team ([facility] st Contact Info) Description 07/31/2020 3:00 PM EDT Office [place] [address] Seamus Rosario MD [facility] [place] [address] Psoriatic arthritis; Effusion of left knee; Medication [...] in this encounter Progress Notes * Seamus Roasrio MD - 07/31/2020 3:00 PM EDT Rheumatology Consult Note Reason for Consult: Keeley Gutierrez presents today at the request of Taylor Bryant APRN for evaluation of Hx of PsA I have reviewed the provided records, pertinent records available at the time of the [facility] appointment with in the medical record and [...] Antibody, Total ??? HIV Screen, 4th Generation ([facility]/CGP/APD/NLH) ??? Crystal Exam Body Fluid ??? Cell Count Body Fluid ??? Hemogram ??? Differential, Automated Return in about 4 weeks (around 08/28/2020) for Telehealth. documented in this encounter Plan of Treatment Upcoming Encounters Date Type Department Care Team (Late st Contact Info) Description 02/27/2024 8:15 AM EDT TH Visit (TeleHealth) Hematology [place] [address] Jean-Pierre Peña MD [facility] DR [place] [address] Vicky Burnham APRN [facility] [place] [address] 02/28/2024 11:30 AM EDT Infusion Hematology Oncology at [address] [address] 03/19/2024 12:45 PM EST Laboratory Appointment Lab at [facility] Hematology Oncology [address] [place] [address] 03/19/2024 1:45 PM EST Office Visit Hematology [place] [address] Jean-Pierre Peña MD [facility] DR [place] [address] Vicky Burnham APRN [facility] [place] [address] 03/19/2024 3:30 PM EST Appointment Hematology [place] [address] 04/30/2024 12:15 PM EST Laboratory Appointment Lab at [facility] Hematology Oncology [address] [place] [address] 04/30/2024 1:15 PM EST Office Visit Hematology [place] [address] Jean-Pierre Peña MD [facility] DR [place] [address] Vicky Burnham VOCATIONAL TECHNICAL EDUCATION DIRECTOR [facility] [place] [address] 04/30/2024 2:30 PM EST Appointment Hematology and Oncology at [facility] [place] [address] 05/22/2024 11:30 AM EST Office Visit Dermatology at [address] [place] [address] Inderjit Vilchis MD [facility] DR GILBERTO NAVARRO-DERMATOLOGY [facility] [address] documented as of this encounter Procedures Procedure [...] * Differential, Automated (07/31/2020 4:37 PM EDT) Neutrophil % 61.0 % [facility] Neutrophil Absolute 4.65 1.70 - 6.10 x10(3)/[facility] Lymph % 28.3 % [facility] Lymphocytes Abs 2.2 0.9 - 3.2 x10(3)/[facility] Monocyte % 7.2 % [facility] Monocyte Abs 0.6 0.3 - 0.9 x10(3)/[facility] Eos % 2.4 % [facility] Eosinophils Abs 0.2 0.0 - 0.4 x10(3)/[facility] Basophil % 0.8 % [facility] Baso Absolute 0.1 0.0 - 0.1 x10(3)/[facility] Immature Gran % 0.30 % [facility] Comment: Immature granulocytes(IG's)percentage and absolute count will include metamyelocytes, myelocytes, and promyelocytes. Blood smears from CBCs yielding IG's will be scanned manually for concordance. If this scan disagrees with the automated IG or if promyelocytes are noted, a manual differential will be performed. Immature Gran Absolute 0.02 0.00 - 0.04 x10(3)/[facility] Blood specimen (specimen) 07/31/2020 4:37 PM EDT 07/31/2020 4:50 PM EDT Narrative Resulting Agency Comment Spec In Lab Seamus Rosario MD HEMATOLOGY ORDERABLE S Performing Organization Address City/State/[facility] Co de Phone Number [facility] [address] * (ABNORMAL) Hemogram (07/31/2020 4:37 PM EDT) White Blood Cell 7.6 4.0 - 9.5 x10(3)/mc L [facility] Red Blood Cell 3.94(L) 4.00 - 5.21 x10(6)/mc L [facility] Hemoglobin 12.4 11.7 - 15.5 gm/dL [facility] Hematocrit 36.7 35.7 - 45.8 % [facility] Mean Cell Volume 93.1 82.6 - 94.4 fL [facility] Mean Cell Hemoglobin 31.5 27.1 - 32.0 pg [facility] Mean Cell Hemoglobin Concentration 33.8 31.7 - 35.0 gm/dL [facility] Platelet 332 145 - 357 x10(3)/mc L [facility] RDW Standard Deviation 45.3 37.0 - 46.0 fL [facility] RDW coefficient of variation 13.2 11.5 - 14.1 % [facility] Mean Platelet Volume 11.2 7.6 - 12.9 fL [facility] NRBC% auto 0.0 % [facility] NRBC Absolute 0.000 0.000 - 0.000 x10(3)/mc L [facility] Blood specimen (specimen) 07/31/2020 4:37 PM EDT 07/31/2020 4:50 PM EDT Narrative Resulting Agency Comment Spec In Lab Seamus Rosario MD HEMATOLOGY ORDERABLE S Performing Organization Address [facility] Co de Phone Number [facility] [place] [address] * CRP, acute inflammation (07/31/2020 4:37 PM EDT) C-Reactive Protein 4.3 <=4.9 mg/L [facility] Blood specimen (specimen) 07/31/2020 4:37 PM EDT 07/31/2020 4:50 PM EDT Narrative Resulting Agency Comment Spec In Lab Seamus Rosario MD CHEMISTRY ORDERABLES Performing Organization Address [facility] Co de Phone Number [facility] [place] [address] * Hepatic Function Panel (07/31/2020 4:37 PM EDT) Protein, Total 6.9 6.1 - 8.0 gm/dL [facility] Albumin 4.2 3.2 - 5.2 gm/dL [facility] Aspartate Aminotransferase 15 0 - 30 unit/L [facility] Alanine Aminotransferase 14 0 - 30 unit/L [facility] Alkaline Phosphatase 73 35 - 105 unit/L [facility] Bilirubin, Total 0.3 0.2 - 1.3 mg/dL [facility] Bilirubin, Direct 0.1 0.0 - 0.3 mg/dL [facility] Blood specimen (specimen) 07/31/2020 4:37 PM EDT 07/31/2020 4:50 PM EDT Narrative Resulting Agency Comment Spec In Lab Seamus Rosario MD CHEMISTRY ORDERABLES Performing Organization Address [facility] Co de Phone Number [facility] [address] * Creatinine (07/31/2020 4:37 PM EDT) Creatinine 0.82 0.70 - 1.20 mg/dL [facility] Est Glomerular Filtration Rate 81 >=60 mL/min/1. 73 m?? [facility] [...] Rosario MD CHEMISTRY ORDERABLES Performing Organization Address [facility] Co de Phone Number [facility] [address] * Sedimentation rate (07/31/2020 4:37 PM EDT) Sedimentation Rate Automated 16 2 - 39 mm/hr [facility] [...] MD HEMATOLOGY ORDERABLE S Performing Organization Address City/[facility] Co de Phone Number [facility] [address] * HIV Screen, 4th Generation ([facility]/CGP/APD/NLH) (07/31/2020 4:37 PM EDT) HIV Ab/Ag Screen Negative Negative [facility] Comment: This [...] Rosario MD CHEMISTRY ORDERABLES Performing Organization Address City/[facility]/ZIP Co de Phone Number [facility] [address] * Hepatitis B Core Antibody, Total (07/31/2020 4:37 PM EDT) Hepatitis B Core Antibody Negative Negative [facility] Blood specimen (specimen) 07/31/2020 4:37 PM EDT 07/31/2020 4:50 PM EDT Narrative Resulting Agency Comment Spec In Lab Seamus Rosario MD CHEMISTRY ORDERABLES Performing Organization Address City/[facility]/ZIP Co de Phone Number [facility] [address] * Hepatitis B Surface Antigen (07/31/2020 4:37 PM EDT) Hepatitis B Surface Antigen Negative Negative [facility] Blood specimen (specimen) 07/31/2020 4:37 PM EDT 07/31/2020 4:50 PM EDT Narrative Resulting Agency Comment Spec In Lab Seamus Rosario MD CHEMISTRY ORDERABLES [facility] [place] [address] * QuantiFERON-TB Gold (07/31/2020 4:37 PM EDT) Quantiferon Nil 0.020 IU/mL [facility] QFT TB Ag1-Nil 0.010 IU/mL [facility] QFT TB Ag2-Nil 0.000 IU/mL [facility] Quantiferon Mitogen-Nil 8.040 IU/mL [facility] Quantiferon-TB Gold Negative Negative [facility] Quantiferon Tb Interp M. tuberculosis infection NOT likely A [...] Rosario MD CHEMISTRY ORDERABLES [facility] [place] [address] * Hepatitis C Antibody (07/31/2020 4:37 PM EDT) Hepatitis C Antibody Negative Negative [facility] Blood specimen (specimen) 07/31/2020 4:37 PM EDT 07/31/2020 4:50 PM EDT Narrative Resulting Agency Comment Spec In Lab Seamus Rosario MD CHEMISTRY ORDERABLES Performing Organization Address City/[facility]/ZIP Co de Phone Number [facility] [address] * Hepatitis B Surface Antibody (07/31/2020 4:37 PM EDT) Hepatitis B Surface Antibody, Quantitative <3.5 IU/L [facility] Comment: HepB Surface Ab Quant: Unvaccinated: < 8.5 IU/L Vaccinated: > 11.5 IU/L Hepatitis B Surface Antibody Negative [facility] Comment: Patient is presumed to be not vaccinated or immune to HBV infection. Expected Results: Vaccinated: Positive Unvaccinated: Negative Blood specimen (specimen) 07/31/2020 4:37 PM EDT 07/31/2020 4:50 PM EDT Narrative Resulting Agency Comment Spec In Lab Seamus Rosario MD CHEMISTRY ORDERABLES Performing Organization Address City/[facility]/ZIP Co de Phone Number [facility] [place] [address] * Cyclic Citrullinated Peptide (07/31/2020 4:37 PM EDT) Cyclic Citrulline Peptide <0.5 <=4.9 unit/mL [facility] Blood specimen (specimen) 07/31/2020 4:37 PM EDT 07/31/2020 4:50 PM EDT Narrative Resulting Agency Comment Spec In Lab Seamus Rosario MD CHEMISTRY ORDERABLES Performing Organization Address City/[facility]/ZIP Co de Phone Number [facility] [place] [address] * Rheumatoid factor, quant (07/31/2020 4:37 PM EDT) Rheumatoid Factor <10 <=14 IU/mL [facility] Blood specimen (specimen) 07/31/2020 4:37 PM EDT 07/31/2020 4:50 PM EDT Narrative Resulting Agency Comment Spec In Lab Seamus Rosario MD CHEMISTRY ORDERABLES Performing Organization Address City/[facility]/ZIP Co de Phone Number [facility] [address] * HLA-B27 (07/31/2020 4:37 PM EDT) HLA-B27 Positive [facility] HLA B27 Interpretation HLA B27 antigen was detected. Approximately 8% of the normal population carries the HLA B27 antigen. HLA B27 is present in approximately 89% of patients with ankylosing spondylitis, 79% of patients with Eleuterio's syndrome and 42% of patients with juvenile rheumatoid arthritis. However, lacking other data, it is not diagnostic for these disorders. Method: Flow Cytometry Reference: 1. Jon DA, Paul MARIE, Clarke Bahena, et al: Ankylosing spondylitis and HLA-27. Lancet 1973;1:904-907 2. Neil J, Alice TOMLIN: HLA-B27 typing by the use of flow cytofluorometry. Clin Chem 1987;33:1619-162 3 [facility] White Blood Cell 7.6 4.0 - 9.5 x10(3)/m cL [facility] Blood specimen (specimen) 07/31/2020 4:37 PM EDT 07/31/2020 4:50 PM EDT Narrative Resulting Agency Comment Spec In Lab Seamus Rosario MD HEMATOLOGY ORDERABLE S Performing Organization Address City/State/[facility] Co de Phone Number [facility] [address] documented in this encounter Visit Diagnoses Diagnosis Psoriatic arthritis Psoriatic arthropathy Effusion of left knee Effusion of lower leg joint Medication monitoring encounter Encounter for therapeutic drug monitoring High risk medication use Encounter for long-term (current) use of other medications Chronic bilateral low back pain without sciatica Bilateral hip pain Pain in joint, pelvic region and thigh documented in this encounter Care Teams Agri Business Agent Relationship Specialty Start Date End Date Taylor Bryant APRN [address] [place] [address] PCP - General 03/31/10 documented as of this encounter
--- OUTSIDE RECORDS SUMMARY | 2024-02-24 02:01 | XMS_ITS | Encounter Summary ---
Author Organization [facility] [place] [address] Care Team Providers Care Parts Puller Name Role Phone Taylor Bryant APRN Primary Care Provider +1 [phone] Encounter Details Date Type Department Care Team (Late st Contact Info) Description 08/01/2003 Orders Only Lab [facility] [place] [address] Fernie Jacobson MD GYNECOLOGY ONCOLOGY Social History Tobacco Use Types Packs/Day Years Used Date Smoking Tobacco: Never Assessed [facility] Utilities Answer Date Recorded [...] TH Visit (TeleHealth) Hematology [place] [address] Jean-Pierre Peña MD [facility] DR H[place] [address] Vicky Burnham APRN [facility] [place] [address] 02/28/2024 11:30 AM EDT Infusion Hematology Oncology at [address] [address] 03/19/2024 12:45 PM EST Laboratory Appointment Lab at [facility] Hematology Oncology [address] [place] [address] 03/19/2024 1:45 PM EST Office Visit Hematology [place] [phone] Jean-Pierre Peña MD [facility] DR H[place] [address] Vicky Burnham APRN [facility] [place] [address] 03/19/2024 3:30 PM EST Appointment Hematology [place] [address] 04/30/2024 12:15 PM EST Laboratory Appointment Lab at [facility] Hematology Oncology [address] [place] [address] 04/30/2024 1:15 PM EST Office Visit Hematology and Oncology at [place] [phone] Jean-Pierre Peña MD [facility] DR [place] [address] Vicky Burnham APRN [facility] [place] [address] 04/30/2024 2:30 PM EST Appointment Hematology [place] [address] 05/22/2024 11:30 AM EST Office Visit Dermatology at [address] [address] Inderjit Vilchis MD [facility] DR GILBERTO [place] [address] documented as of this encounter Procedures Procedure Name Priority Date/Time Associated Diagnosis Comments SURGICAL PATHOLOGY REPORT Routine 08/01/2003 1:58 PM EST documented in this encounter Results * Surgical Pathology Report (08/01/2003 1:58 PM EST) Surgical Pathology Report [id number] ? Location: 3WST; 0310; B The signing pathologist has (i) examined [...] the vaginal resection margins. Sections/Processi ng: ? Literacy Tutor sections are submitted as follows: ?(1-2) posterior [...] longitudinally from left to right; (34) ? energy conservation representative endometrium. ??(R34) ??aje/SDD Microscopic Description Slides [...] Comment ?? Deeper levels were obtained. ANGEL REMY 08/01/2003 1:58 PM EST Fernie Jacobson MD PATHOLOGY/CYTOLOGY ORDERABLES ANGEL REMY documented in this encounter Visit Diagnoses Not on filedocumented in this encounter Care Teams Parts Puller Relationship Specialty Start Date End Date Taylor Bryant APRN [address] [place] [address] PCP - General 03/31/10 documented as of this encounter
--- OUTSIDE RECORDS SUMMARY | 2024-02-24 02:01 | XMS_ITS | Encounter Summary ---
Author Organization [facility] [place] [address] Care Team Providers Care Middle School Coach Name Role Phone AnnetteTaylor ZARA Primary Care Provider +1 [phone] Reason for Referral * Diagnostic Test (Routine) - Closed Specialty Diagnoses / Procedures Referred By Contac t Referred To Contact Radiology Diagnoses Psoriatic arthritis Procedures MRI Knee wo Contrast Left (Generic) Jad Prajapati MD [facility] DR ORTHOPAEDIC [place] [address] [place] [address] Referral ID Status Reason Start Date Expiration Date V isits Requested Visits Authorized [id number] Closed Specialty Service Requested 06/09/2016 09/07/2016 1 1 Reason for Visit * Diagnostic Test (Routine) - Closed Specialty Diagnoses / Procedures Referred By Contac t Referred To Contact Radiology Diagnoses Psoriatic arthritis Procedures MRI Knee wo Contrast Left (Generic) Jad Prajapati MD [facility] DR ORTHOPAEDIC [place] [address] [place] [address] Referral ID Status Reason Start Date Expiration Date V isits Requested Visits Authorized [id number] Closed Specialty Service Requested 06/09/2016 09/07/2016 1 1 Encounter Details Date Type Department Care Team (Late st Contact Info) Description 06/28/2016 11:10 AM EST - 06/28/2016 11:59 PM EST Hospital Encounter MRI at [place] [phone] Carlos Caceres MD [facility] [place] [address] Psoriatic arthritis Discharge Disposition: Home Social History [...] TH Visit (TeleHealth) Hematology and Oncology at [place] [phone] Jean-Pierre Peña MD [facility] DR [place] [address] Vciky Burnham APRN [facility] [place] [address] 02/28/2024 11:30 AM EDT Infusion Hematology Oncology at [address] [address] 03/19/2024 12:45 PM EST Laboratory Appointment Lab at [facility] Hematology Oncology [address] [place] [address] 03/19/2024 1:45 PM EST Office Visit Hematology [place] [phone] Jean-Pierre Peña MD [facility] DR [place] [address] Vicky Burnham APRN [facility] [place] [address] 03/19/2024 3:30 PM EST Appointment Hematology [place] [address] 04/30/2024 12:15 PM EST Laboratory Appointment Lab at [facility] Hematology Oncology [address] [place] [address] [id number] 04/30/2024 1:15 PM EST Office Visit Hematology [place] [phone] Jean-Pierre Peña MD [facility] DR [place] [address] Vicky Burnham APRN [facility] [place] [address] 04/30/2024 2:30 PM EST Appointment Hematology [place] [address] 05/22/2024 11:30 AM EST Office Visit Dermatology at [address] [address] Inderjit Vilchis MD [facility] DR GILBERTO [place] [address] documented as of this encounter Procedures Procedure [...] arthropathy documented in this encounter Care Teams Middle School Coach Relationship Specialty Start Date End Date Taylor Bryant APRN [address] [place] [address] PCP - General 03/31/10 documented as of this encounter
--- OUTSIDE RECORDS SUMMARY | 2024-02-24 02:01 | XMS_ITS | Encounter Summary ---
Author Organization Formerly [facility] Address [facility] [place] [address] Care Team Providers Care Tape Transferrer Name Role Phone Taylor Bryant ZARA Primary Care Provider [phone] [phone] Encounter Details Date Type Department Care Team (Late st Contact Info) Description 10/28/2015 - 10/28/2015 11:59 PM EDT Hospital Encounter Radiology Library at [facility] [place] [phone] Carlos Caceres MD [facility] [place] [address] Pain Discharge Disposition: Home Social History Tobacco [...] TH Visit (TeleHealth) Hematology and Oncology at [facility] [place] [address] Jean-Pierre Peña MD [facility] [place] [address] Vicky Burnham APRN [facility] [place] [address] 02/28/2024 11:30 AM EDT Infusion Hematology Oncology at [address] [address] 03/19/2024 12:45 PM EST Laboratory Appointment Lab at [facility] [place]ology Oncology [address] [place] [address] 03/19/2024 1:45 PM EST Office Visit [place]ematology [place] [address] Jean-Pierre Peña MD [facility] DR [place] [address] Vicky Burnham APRN [facility] [place] [address] 03/19/2024 3:30 PM EST Appointment Hematology [place] [address] 04/30/2024 12:15 PM EST Laboratory Appointment Lab at [facility] Hematology Oncology [address] [place] [address] 04/30/2024 1:15 PM EST Office Visit [place]ematology [place] [address] Jean-Pierre Peña MD [facility] DR [place] [address] Vicky Burnham APRN [facility] [place] [address] 04/30/2024 2:30 PM EST Appointment Hematology [place] [address] 05/22/2024 11:30 AM EST Office Visit Dermatology at [address] [place] [address] Inderjit Vilchis MD [facility] DR GILBERTO [place] [address] documented as of this encounter Procedures Procedure Name Priority Date/Time Associated Diagnosis Comments FILM LIBRARY STORAGE ONLY DX KNEE Routine 10/28/2015 12:00 AM EDT Pain documented in this encounter Results * Film Library- Storage Only DX Knee (10/28/2015 12:00 AM EDT) Narrative [facility] - 06/09/2016 2:51 PM EST This exam is for storage only and is auto-finalizing. Carlos Caceres MD [facility] FILM LIBRARY ORD ERABLES [place], [place] documented in this encounter Visit Diagnoses Diagnosis Pain Generalized pain documented in this encounter Care Teams Tape Transferrer Relationship Specialty Start Date End Date Taylor Bryant, [employer] TECHNICIAN [address] [place] [address] PCP - General 03/31/10 documented as of this encounter
--- OUTSIDE RECORDS SUMMARY | 2024-02-24 02:01 | XMS_ITS | Encounter Summary ---
Author Organization [facility] [place] [address] Care Team Providers Care Tank Maker Wood Name Role Phone Taylor Bryant APRN Primary Care Provider +1 [phone] Encounter Details Date Type Department Care Team (Late st Contact Info) Description 05/17/2003 Orders Only Lab [place] [address] Fernie Jacobson MD GYNECOLOGY ONCOLOGY Social History Tobacco Use Types Packs/Day Years Used Date Smoking Tobacco: Never Assessed [facility] Utilities Answer Date Recorded In the [...] TH Visit (TeleHealth) Hematology [place] [address] Jean-Pierre Peña MD [facility] DR HEMATOLOGY [place] [address] Vicky Burnham APRN [facility] [place] [address] 02/28/2024 11:30 AM EDT Infusion Hematology Oncology at [address] [address] 03/19/2024 12:45 PM EST Laboratory Appointment Lab at [facility] Hematology Oncology [address] [place] [address] 03/19/2024 1:45 PM EST Office Visit Hematology [place] [address] Jean-Pierre Peña MD [facility] DR HEMATOLOGY [place] [address] Vicky Burnham APRN [facility] [place] [address] 03/19/2024 3:30 PM EST Appointment Hematology [place] [address] 04/30/2024 12:15 PM EST Laboratory Appointment Lab at [facility] Hematology Oncology [address] [place] [address] 04/30/2024 1:15 PM EST Office Visit Hematology and Oncology at [place] [phone] Jean-Pierre Peña MD [facility] DR [place] [address] Vicky Burnham APRN [facility] [place] [address] 04/30/2024 2:30 PM EST Appointment Hematology [place] [address] 05/22/2024 11:30 AM EST Office Visit Dermatology at [address] [address] Inderjit Vilchis MD [facility] DR GILBERTO [place] [address] documented as of this encounter Procedures Procedure Name Priority Date/Time Associated Diagnosis Comments SURGICAL PATHOLOGY REPORT Routine 05/17/2003 12:43 PM EST documented in this encounter Results * Surgical Pathology Report (05/17/2003 12:43 PM EST) Surgical Pathology Report [id number] ? Location: The signing pathologist has (i) [...] black, serially ?sectioned, and entirely submitted in (05-20). ??The ?additional three fragments are overinked black, [...] on filedocumented in this encounter Care Teams Tank Maker Wood Relationship Specialty Start Date End Date Taylor Bryant APRN [address] [place] [address] PCP - General 03/31/10 documented as of this encounter
--- OUTSIDE RECORDS SUMMARY | 2024-02-24 02:01 | XMS_ITS | Encounter Summary ---
Author Organization [facility] Address [facility] [place] [address] Care Team Providers Care Menswear Salesperson Name Role Phone Taylor Bryant ZARA Primary Care Provider [phone] [phone] Encounter Details Date Type Department Care Team (Late st Contact Info) Description 04/20/2016 - 04/20/2016 11:59 PM [facility] Encounter Radiology Library at [facility] [place] [address] Carlos Caceres MD [facility] [place] [address] Pain Discharge Disposition: Home Social History Tobacco [...] TH Visit (TeleHealth) Hematology and Oncology at [facility] [place] [address] Jean-Pierre Peña MD [facility] HEMATOLOGY [place] [address] Vicky Burnham APRN [facility] [place] [address] 02/28/2024 11:30 AM EDT Infusion Hematology Oncology at [address] [address] 03/19/2024 12:45 PM EST Laboratory Appointment Lab at [facility] Hematology [address] [address] 03/19/2024 1:45 PM EST Office Visit Hematology [place] [phone] Jean-Pierre Peña MD [facility] HEMATOLOGY [place] [address] Vicky Burnham APRN [facility] [place] [address] 03/19/2024 3:30 PM EST Appointment Hematology [place] [address] 04/30/2024 12:15 PM EST Laboratory Appointment Lab at [facility] Hematology Oncology [address] [place] [address] 04/30/2024 1:15 PM EST Office Visit [place]ematology [place] [address] Jean-Pierre Peña MD [facility] DR HEMATOLOGY [place] [address] Vicky Burnham APRN [facility] [place] [address] 04/30/2024 2:30 PM EST Appointment Hematology [place] [address] 05/22/2024 11:30 AM EST Office Visit Dermatology at [address] [place] [address] Inderjit Vilchis MD [facility] DR GILBERTO [place] [address] documented as of this encounter Procedures Procedure Name Priority Date/Time Associated Diagnosis Comments FILM LIBRARY STORAGE ONLY DX KNEE Routine 04/20/2016 12:00 AM EST Pain documented in this encounter Results * Film Library- Storage Only DX Knee (04/20/2016 12:00 AM EST) Narrative [facility] - 06/09/2016 3:06 PM EST This exam is for storage only and is auto-finalizing. Carlos Caceres MD [facility] FILM LIBRARY ORD ERABLES [place], [place] documented in this encounter Visit Diagnoses Diagnosis Pain Generalized pain documented in this encounter Care Teams Menswear Salesperson Relationship Specialty Start Date End Date Taylor Bryant APRN [address] [place] [address] PCP - General 03/31/10 documented as of this encounter
--- OUTSIDE RECORDS SUMMARY | 2024-02-24 02:01 | XMS_ITS | Encounter Summary ---
[place] [address] Care Team Providers Care Supervisor Functional Testing Name Role Phone Taylor Bryant APRN Primary Care Provider [phone] [phone] Reason for Referral * Diagnostic Test (Routine) - Closed Specialty Diagnoses / Procedures Referred By Crista padron Referred To Contact Radiology Diagnoses Psoriatic arthritis Procedures MRI Knee wo Contrast Left (Generic) Jad Prajapati MD [facility] DR [place] [address] [facility] [address] Referral ID Status Reason Start Date Expiration Date V isits Requested Visits Authorized [id number] Closed Specialty Service Requested 06/09/2016 09/07/2016 1 1 Reason for Visit * Reason Comments Left Knee Pain s/p fal DOI: 6, hx of meniscal repair * Consultation (Routine) - Specialty Diagnoses / Procedures Referred By Crista padron Referred To Contact Orthopaedics Diagnoses Left knee pain Taylor Bryant APRN [address] [place] [address] [facility] [address] [place] [phone] Referral ID Status Reason Start Date Expiration Date V isits Requested Visits Authorized [id number] Consult, Test [facility] 04/28/2016 04/28/2017 1 1 Encounter Details Date Type Department Care Team (Late st Contact Info) Description 06/09/2016 2:00 PM EST Office Visit Orthopaedics at [facility] [place] [address] Carlos Caceres MD [facility] [place] [address] Psoriatic arthritis Social History Tobacco Use Types [...] meniscectomy on this left side down at [facility] by the [facility]. She fell in April; it has gotten worse since then, and was on a period of time where it was difficult to stand and walk; however, that has kind of somewhat resolved. She does note a history of psoriatic arthritis for which sees a management trainee, currently only taking diclofenac. Activities are causing [...] less than $15,000 # People Supported 1 Italian, , No, not Italian// Race White Health Literacy Quite a bit [...] takes oral diclofenac. She does see a management trainee in [facility] was considering starting Enbrel injections. She has [...] can get some more time with her circle joints prior to replacement if this is the way she is going. Carlos Caceres MD 06/09/2016 documented in this encounter Plan of Treatment Upcoming Encounters Date Type Department Care Team (Late st Contact Info) Description 02/27/2024 8:15 AM EDT TH Visit (TeleHealth) Hematology [place] [address] Jean-Pierre Peña MD [facility] DR [place] [address] Vicky Burnham APRN [facility] [place] [address] 02/28/2024 11:30 AM EDT Infusion Hematology Oncology at [address] [address] 03/19/2024 12:45 PM EST Laboratory Appointment Lab at [place] Hematology Oncology [address] [place] [address] 03/19/2024 1:45 PM EST Office Visit Hematology [place] [address] Jean-Pierre Peña MD [facility] DR [place] [address] Vicky Burnham APRN [facility] [place] [address] 03/19/2024 3:30 PM EST Appointment Hematology [place] [address] 04/30/2024 12:15 PM EST Laboratory Appointment Lab at [place] Hematology Oncology [address] [place] [phone] 04/30/2024 1:15 PM EST Office Visit Hematology [place] [address] Jean-Pierre Peña MD [facility] DR [place] [address] Vicky Burnham APRN [facility] [place] [address] 04/30/2024 2:30 PM EST Appointment Hematology [place] [address] 05/22/2024 11:30 AM EST Office Visit Dermatology at [address] [address] Inderjit Vilchis MD [facility] DR [place]ILBERT[place] [address] documented as of this encounter Results * [...] arthropathy documented in this encounter Care Teams Supervisor Functional Testing Relationship Specialty Start Date End Date Taylor Bryant APRN [address] [place] [address] PCP - General 03/31/10 documented as of this encounter
[2024-02-24 09:17] LABS: Abs Immature Grans 0.04 10^3/uL (0.0-0.06); Absolute Basophil Count 0.06 10^3/uL (0.0-0.2); Absolute Eosinophil Count 0.32 10^3/uL (0.0-0.7); Absolute Lymphocyte Count 1.45 10^3/uL (1.2-3.4); Absolute Monocyte Count 0.68 10^3/uL (0.1-0.8); Absolute Neutrophil Count 4.33 10^3/uL (1.2-6.7); Basophils % 0.9 %; Eosinophils % 4.7 %; HCT 37.6 % (36.0-46.0); Immature Grans % 0.6 %; Lymphocytes % 21.1 %; MCH 30.6 pg (27.0-33.0); MCHC 31.9 % (32.0-36.0); MCV 96 fL (80-95); MPV 10.7 fL (8.0-11.0); Monocytes % 9.9 %; Neutrophils % 62.8 %; Platelet Count 290 10^3/uL (130-400); RBC 3.92 10^6/uL (3.93-5.22); RDW 14.5 % (11.7-14.6); RDW-SD 50.6 fL; WBC 6.88 10^3/uL (4.4-10.8)
[2024-02-24 10:00] LABS: ALT 25 U/L (14-59); AST 13 U/L (15-37); Albumin 3.2 g/dL (3.4-5.0); Alkaline Phosphatase 57 U/L (46-116); Anion Gap 10.1 mmol/L (3-11); BUN 25 mg/dL (7-18); Bilirubin, Total 0.56 mg/dL (0.2-1.0); CO2 26.9 mmol/L (21.0-32.0); Calcium 9.1 mg/dL (8.5-10.1); Chloride 108 mmol/L (98-107); FREE T4 0.92 ng/dL (0.76-1.46); Glucose 92 mg/dL (74-106); LDH 150 U/L (81-234); Potassium 3.8 mmol/L (3.5-5.1); Sodium 145 mmol/L (136-145); TSH 1.17 uIU/mL (0.36-3.74); Total Protein 6.5 g/dL (6.4-8.2)
== END 2024-02-24 01:55 | disposition home or self-care (01) ==
PROVIDERS: PCP Nurse Practitioner
DX: Z79.899 Other long term (current) drug therapy (principal); C43.4 Malignant melanoma of scalp and neck
CPT/HCPCS: 36415; 80053; 83615; 84439; 84443; 85025

== ENCOUNTER 2024-04-02 13:55 | Outpatient (CLI) | payer MEDICARE, SELFPAY ==
--- OUTSIDE RECORDS SUMMARY | 2024-04-02 13:58 | XMS_ITS | Encounter Summary ---
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, unspecified lymph node region Social History Tobacco Use Types Packs/Day Years [...] Care Team (Late st Contact Info) Description 04/09/2024 4:15 PM EST TH Visit (TeleHealth) Hematology [place] [address] Jean-Pierre Peña MD [facility] [place] [address] 04/13/2024 2:30 PM EST Infusion Hematology Oncology at [address] [phone] 04/30/2024 12:15 PM EST Laboratory Appointment Lab at [facility] Hematology Oncology [address] [place] [phone] 04/30/2024 1:15 PM EST Office Visit Hematology [place] [address] Jean-Pierre Peña MD [facility] [address] [place] [address] Vicky Burnham APRN [facility] [place] [address] 04/30/2024 2:30 PM EST Appointment Hematology and Oncology at [place] [phone] 05/22/2024 9:15 AM EST Laboratory Appointment Lab at [facility] Hematology Oncology [address] [place] [phone] 05/22/2024 10:[address] [place] [phone] Jean-Pierre Peña MD [facility] [place] [address] 05/22/2024 11:30 AM EST Office Visit Dermatology at [address] [phone] Inderjit Vilchis MD [facility] DR GILBERTO [place] [address] 05/22/2024 2:00 PM EST Office Visit Hematology and Oncology at [place] [phone] Jean-Pierre Peña MD [facility] [place] [address] 05/22/2024 3:30 PM EST Appointment Hematology [place] [phone] 06/11/2024 4:15 PM EST TH Visit (TeleHealth) [place]ematology [place] [address] Jean-Pierre Peña MD [facility] [place] [address] 06/12/2024 8:30 AM EST Infusion Hematology Oncology at [address] [phone] documented as of this encounter Procedures Procedure Name Priority Date/Time Associated Diagnosis Comments CBC (WITH DIFF) STAT 03/19/2024 12:39 PM EST Medication management 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, unspecified lymph node region TSH STAT 03/19/2024 12:39 PM EST Medication management 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, unspecified lymph node region T4, FREE STAT 03/19/2024 12:39 PM EST Medication management 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, unspecified lymph node region LACTATE DEHYDROGENASE STAT 03/19/2024 12:39 PM EST Medication management 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, unspecified lymph node region COMPREHENSIVE METABOLIC PANEL STAT 03/19/2024 12:39 PM EST Medication management 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, unspecified lymph node region documented in this encounter Results * (ABNORMAL) CBC (with Diff) (03/19/2024 12:39 PM EST) White Blood Cell 8.89 4.00 - 9.50 x10(3)/mc L 03/19/2024 12:51 PM EST [facility] Red Blood Cell 4.30 4.00 - 5.21 x10(6)/mc L 03/19/2024 12:51 PM EST [facility] Hemoglobin 13.2 11.7 - 15.5 g/dL 03/19/2024 12:51 PM [facility] Hematocrit 40.2 35.7 - 45.8 % 03/19/2024 12:51 PM [facility] Mean Cell Volume 93.5 82.6 - 94.4 fL 03/19/2024 12:51 PM [facility] Mean Cell Hemoglobin 30.7 27.1 - 32.0 pg 03/19/2024 12:51 PM [facility] Mean Cell Hemoglobin Concentration 32.8 31.7 - 35.0 g/dL 03/19/2024 12:51 PM [facility] Platelet 358(H) 145 - 357 x10(3)/mc L 03/19/2024 12:51 PM [facility] Mean Platelet Volume 10.6 7.6 - 12.9 fL 03/19/2024 12:51 PM [facility] RDW Standard Deviation 46.5(H) 37.0 - 46.0 fL 03/19/2024 12:51 PM [facility] RDW coefficient of variation 13.6 11.5 - 14.1 % 03/19/2024 12:51 PM [facility] NRBC% auto 0.0 % 03/19/2024 12:51 PM [facility] NRBC Absolute <0.01 <0.01 x10(3)/mc L 03/19/2024 12:51 PM [facility] Neutrophil % 65.0 % 03/19/2024 12:51 PM [facility] Neutrophil Absolute (ANC) - Automated 5.78 1.70 - 6.10 x10(3)/mc L 03/19/2024 12:51 PM [facility] Lymph % 24.1 % 03/19/2024 12:51 PM [facility] Lymph Absolute 2.14 0.90 - 3.20 x10(3)/mc L 03/19/2024 12:51 PM [facility] Monocyte % 7.4 % 03/19/2024 12:51 PM [facility] Monocyte Absolute 0.66 0.30 - 0.90 x10(3)/mc L 03/19/2024 12:51 PM [facility] Eos % 2.6 % 03/19/2024 12:51 PM EST [facility] Eos Absolute 0.23 0.00 - 0.40 x10(3)/mc L 03/19/2024 12:51 PM EST [facility] Basophil % 0.7 % 03/19/2024 12:51 PM EST [facility] Baso Absolute 0.06 0.00 - 0.10 x10(3)/mc L 03/19/2024 12:51 PM EST [facility] Immature Gran % 0.2 % 12:51 PM [facility] Immature Gran Absolute <0.04 0.00 - 0.04 x10(3)/mc L 03/19/2024 12:51 PM [facility] Blood VENOUS BLOOD SPECIMEN / Unknown Venipuncture / Unknown 03/19/2024 12:39 PM EST 03/19/2024 12:39 PM EST Jean-Pierre Peña MD HEMATOLOGY ORDERABLE S [facility] [place] [address] * (ABNORMAL) Comprehensive metabolic panel (03/19/2024 12:39 PM EST) Glucose 96 65 - 199 mg/dL 03/19/2024 1:23 PM [facility] Comment:Glucose Concentratio n >=200 mg/dL plus symptoms is consistent with Diabetes Mellitus. Blood Urea Nitrogen 25(H) 8 - 18 mg/dL 03/19/2024 1:23 PM EST [facility] Creatinine 1.14 0.70 - 1.20 mg/dL 03/19/2024 1:23 PM [facility] Sodium 138 135 - 145 mMol/L 03/19/2024 1:23 PM [facility] Potassium 3.7 3.5 - 5.0 mMol/L 03/19/2024 1:23 PM EST [facility] Chloride 102 98 - 107 mMol/L 03/19/2024 1:23 PM [facility] Carbon Dioxide 24 22 - 31 mMol/L 03/19/2024 1:23 PM [facility] Anion Gap 12 5 - 15 mMol/L 03/19/2024 1:23 PM [facility] Calcium 9.5 8.5 - 10.5 mg/dL 03/19/2024 1:23 PM [facility] Protein, Total 7.1 6.1 - 8.0 g/dL 03/19/2024 1:23 PM [facility] Albumin 4.2 3.2 - 5.2 g/dL 03/19/2024 1:23 PM [facility] Aspartate Aminotransferase 10 <=30 unit/L 03/19/2024 1:23 PM [facility] Alanine Aminotransferase 9 0 - 30 unit/L 03/19/2024 1:23 PM [facility] Alkaline Phosphatase 63 35 - 105 unit/L 03/19/2024 1:23 PM [facility] Bilirubin, Total 0.5 <=1.3 mg/dL 03/19/2024 1:23 PM [facility] Est Glomerular Filtration Rate - Female 56 mL/min/1. 73 m?? 03/19/2024 1:23 PM [facility] Comment: This patient's estimated GFR [...] Calculator [employer] Fasting Status No 03/19/2024 1:23 PM [facility] Blood VENOUS BLOOD SPECIMEN / Unknown Venipuncture / Unknown 03/19/2024 12:39 PM EST 03/19/2024 12:39 PM EST Jean-Pierre ePña MD CHEMISTRY ORDERABLES Performing Organization Address City/[facility] Co de Phone Number [facility] [place] [address] * TSH (03/19/2024 12:39 PM EST) Thyroid Stimulating Hormone 0.84 0.27 - 4.20 mcIU/mL 03/19/2024 1:23 PM EST [facility] Comment: Reference Interval (mcIU/mL): ?? Females: ? First Trimester: 0.23-3.88 ? Second Trimester: 0.22-3.90 ? Third Trimester: 0.44-4.66 Blood VENOUS BLOOD SPECIMEN / Unknown Venipuncture / Unknown 03/19/2024 12:39 PM EST 03/19/2024 12:39 PM EST Jean-Pierre Peña MD CHEMISTRY ORDERABLES Performing Organization Address [facility] Co de Phone Number [facility] [place] [address] * T4, free (03/19/2024 12:39 PM EST) Free T4 1.35 0.93 - 1.70 ng/dL 03/19/2024 1:23 PM EST [facility] Comment: Reference Interval (ng/dL): ?? Females: ? First Trimester: 0.97-1.68 ? Second Trimester: 0.77-1.51 ? Third Trimester: 0.77-1.49 Blood VENOUS BLOOD SPECIMEN / Unknown Venipuncture / Unknown 03/19/2024 12:39 PM EST 03/19/2024 12:39 PM EST Jean-Pierre Peña MD CHEMISTRY ORDERABLES Performing Organization Address City/[facility]/ZIP Co de Phone Number [facility] [place] [address] * Lactate Dehydrogenase (03/19/2024 12:39 PM EST) Lactate Dehydrogenase 168 110 - 220 unit/L 03/19/2024 1:23 PM EST [facility] Blood VENOUS BLOOD SPECIMEN / Unknown Venipuncture / Unknown 03/19/2024 12:39 PM EST 03/19/2024 12:39 PM EST Jean-Pierre Peña MD CHEMISTRY ORDERABLES [facility] [place] [address] documented in this encounter Visit Diagnoses Diagnosis Medication management Encounter for long-term (current) use of other medications 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
--- OUTSIDE RECORDS SUMMARY | 2024-04-02 13:58 | XMS_ITS | Encounter Summary ---
Author Organization [facility] Address [facility] [address] Care Team Providers Care Customer Operations Intern Name Role Phone Taylor Bryant ZARA Primary Care Provider [phone] Encounter Details Date Type Department Care Team ([facility] st Contact Info) Description 02/28/2024 Notes Only Hematology/Oncology at [address] [phone] Johanny Carter, [facility] OFFICE OF CARE MANAGEMENT Social History Tobacco Use Types Packs/Day Years Used Date Smoking Tobacco: Former Smokeless Tobacco: Never Comments:quit at age 35 Alcohol Use Standard Drinks/Week Comments Yes 0 (1 standard drink = 0.6 oz pur e alcohol) social gatherings [facility] Utilities Answer Date Recorded In the [...] as of this encounter Progress Notes * Johanny Carter, [facility] - 02/28/2024 12:04 PM EDT Reason for Referral: Brief assessment of social and emotional needs. Met with Keeley and her s/o Fredis during her infusion visit today to introduce myself and role of social and political studies professor to assess/address barriers to getting to and through treatments; address support needs and connect with community services and resources as needed. Keeley is treated at [facility] and will be coming here every other treatment as we are closer to home. Reviewed notes from HOOD Garcia. Family/Social Supports: Keeley indicated her s/o Fredis is her primary support. She has 2 other sisters who call her frequently. She has 2 sons and both live in [place]. Living Situation/Daily Activities/Transportation: Keeley manages her daily chores and activities.She has limited energy so she does what she feels up to. She did not indicate any issues with transportation other than cost of gas. She has received gas cards from a number of sources. Work/Finances/Insurance: Keeley lives on income from [employer]. Her finances are tight. Her friend Fredis helps out some. She has [facility] Managed medicare and Medicaid for insurance. Advance Directives: Keeley has not completed her advance directive. Utilization of Community Resources: Keeley receives Food Assistance of /$292 a month. She is expecting Fuel assistance and waiting to hear the amount she will receive. Per Ms. Sánchez notes Keeley has received assistance from the [facility] and the [facility]; Per Keeley she is receiving a $250 monthly stipend from the [facility] for a total of 6 months. She has received 2 checks so far. Keeley has accessed food from the [facility] Food [facility] Adjustment to Illness/Mental Health Concerns: Keeley is very please with the outcome of her treatments. She indicated she received very good news about a recent scan. She feels supported by her family and friends. Offered support. Identified Needs:Keeley did not identify any specific needs at this time. Referrals: None at this time. Social Work Interventions: Brief assessment Supportive Counseling Advance care planning Community Resource Plan: Informed Keeley of [facility] availability and contact information. Will touch base with HOOD Garcia re my contact with Keeley. BRANDON Mcfarland, ADJUNCT PROFESSOR OF ENGLISH, OSW-C Cardiac Nurse Practitioner [facility] documented in this encounter Plan of Treatment Upcoming Encounters Date Type Department Care Team (Late st Contact Info) Description 04/09/2024 4:15 PM EST TH Visit (TeleHealth) Hematology [place] [address] Jean-Pierre Peña MD [facility] HEMATOLOGY [place] [address] 04/13/2024 2:30 PM EST Infusion Hematology Oncology at [address] [phone] 04/30/2024 12:15 PM EST Laboratory Appointment [place] [facility] [place] [address] [place] [phone] 04/30/2024 1:15 PM EST Office Visit Hematology [place] [address] Jean-Pierre Peña MD [facility] DR HEMATOLOGY [place] [address] Vicky Burnham APRN [facility] [place] [address] 04/30/2024 2:30 PM EST Appointment Hematology and Oncology at [place] [phone] 05/22/2024 9:15 AM EST Laboratory Appointment Lab [place] [facility] [place] [address] [address] 05/22/2024 10:[address] Scan at [place] [phone] Jean-Pierre Peña MD [facility] DR HEMATOLOGY [place] [address] 05/22/2024 11:30 AM EST Office Visit Dermatology at [address] [phone] Inderjit Vilchis MD [facility] DR GILBERTO [place] [address] 05/22/2024 2:00 PM EST Office Visit Hematology [place] [address] Jean-Pierre Peña MD [facility] HEMATOLOGY [place] [address] 05/22/2024 3:30 PM EST Appointment Hematology [place] [address] 06/11/2024 4:15 PM EST TH Visit (TeleHealth) [place]ematology [place] [address] Jean-Pierre Peña MD [facility] DR HEMATOLOGY [place] [address] 06/12/2024 8:30 AM EST Infusion Hematology Oncology at [address] [phone] documented as of this encounter Visit Diagnoses Not on filedocumented in this encounter Care Teams Customer Operations Intern Relationship Specialty Start Date End Date Taylor Bryant APRN [address] [place] [address] PCP - General 03/31/10 documented as of this encounter
--- OUTSIDE RECORDS SUMMARY | 2024-04-02 13:58 | XMS_ITS | Encounter Summary ---
Author Organization [facility] Address [facility] [place] [address] Care Team Providers Care Supervisor Furnace Room Name Role Phone Taylor Bryant APRN Primary Care Provider [phone] Encounter Details Date Type Department Care Team (Latest Contact Info) Description 02/15/2024 Travel Social History Tobacco Use Types Packs/Day Years Used Date Smoking Tobacco: Former Smokeless Tobacco: Never Comments:quit at age 35 Alcohol Use Standard Drinks/Week Comments Yes 0 (1 standard drink = 0.6 oz pur e alcohol) social gatherings [facility] Utilities Answer Date Recorded In [...] TH Visit (TeleHealth) Hematology [place] [address] Jean-Pierre Peña MD [facility] HEMATOLOGY [place] [address] 04/13/2024 2:30 PM EST Infusion Hematology Oncology at [address] [phone] 04/30/2024 12:15 PM EST Laboratory App[facility]ment [facility] [place] [facility] [place] [address] [place] [phone] 04/30/2024 1:15 PM EST Office Visit Hematology [place] [phone] Jean-Pierre Peña MD [facility] HEMATOLOGY [place] [address] Vicky Burnham, TRAILER ASSEMBLER [facility] [place] [address] 04/30/2024 2:30 PM EST Appointment Hematology [place] [address] 05/22/2024 9:15 AM EST Laboratory Appointment Lab at [facility] [place] Oncology [address] [place] [phone] 05/22/2024 10:[address] Scan at [place] [phone] Jean-Pierre Peña MD [facility] DR HEMATOLOGY [place] [address] 05/22/2024 11:30 AM EST Office Visit Dermatology at [address] [phone] Inderjit Vilchis MD [facility] DR GILBERTO [place] [address] 05/22/2024 2:00 PM EST Office Visit Hematology [place] [address] Jean-Pierre Peña MD [facility] HEMATOLOGY [place] [address] 05/22/2024 3:30 PM EST Appointment Hematology [place] [address] 06/11/2024 4:15 PM EST TH Visit (TeleHealth) Hematology [place] [address] Jean-Pierre Peña MD [facility] HEMATOLOGY [place] [address] 06/12/2024 8:30 AM EST Infusion Hematology Oncology at [address] [phone] documented as of this encounter Visit Diagnoses Not on filedocumented in this encounter Care Teams Supervisor Furnace Room Relationship Specialty Start Date End Date Taylor Bryant APRN [address] [place] [address] PCP - General 03/31/10 documented as of this encounter
--- OUTSIDE RECORDS SUMMARY | 2024-04-02 13:58 | XMS_ITS | Encounter Summary ---
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, unspecified lymph node region Procedures [id number] pembrolizumab (Keytruda) Jean-Pierre Peña MD [facility] DR HEMATOLOGY [place] [address] Jean-Pierre Peña MD [facility] DR HEMATOLOGY [place] [address] Referral ID Status Reason Start Date Expiration Date V isits Requested Visits Authorized [id number] Authorized 07/25/2023 07/24/2024 99 99 Encounter Details Date Type Department Care Team (Latest Contact Info) Description 03/19/2024 12:32 PM EST - 03/19/2024 11:59 PM EST Hospital Encounter Hematology [place] [address] Medication management; Malignant melanoma of scalp; 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 Birthdate: 1965 Admit date: 03/19/2024 Attending Physician: No att. providers found Keeley Gutierrez, 58 y.o. female with diagnosis of 1. Medication management 2. Malignant melanoma of scalp 3. 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 PROTOCOL: N/a CYCLE: 9 WEEK: N/a DAY: 1 Treatment start time: 1441 Treatment end time: 1526 S: Pt. offers no complaints at this time. O: Chemotherapy orders independently verified for correct drug name, route and dosage per patient'sheight, weight and BSA by Jarad Moreira RN and onsite pharmacist REACTIONS (DESCRIPTION, TIME, INTERVENTION AND EFFECTIVENESS) None reported A: Pt. Tolerated treatment well. Keeley Gutierrez confirms that all questions and issues have beenaddressed. P: Return to clinic per protocol documented in this encounter Plan of Treatment Upcoming Encounters Date Type Department Care Team (Late st Contact Info) Description 04/09/2024 4:15 PM EST TH Visit (TeleHealth) [place]ematology [place] [address] Jean-Pierre Peña MD [facility] HEMATOLOGY [place] [address] 04/13/2024 2:30 PM EST Infusion Hematology Oncology at [address] [address] 04/30/2024 12:15 PM EST Laboratory Appointment Lab at [facility] Hematology Oncology [address] [place] [phone] 04/30/2024 1:15 PM EST Office Visit Hematology [place] [address] Jean-Pierre Peña MD [facility] DR HEMATOLOGY [place] [address] Vicky Burnham APRN [facility] [place] [address] 04/30/2024 2:30 PM EST Appointment Hematology [place] [address] 05/22/2024 9:15 AM EST Laboratory Appointment Lab at [facility] Hematology Oncology [address] [place] [phone] 05/22/2024 10:[address] [place] [phone] Jean-Pierre Peña MD [facility] HEMATOLOGY [place] [address] 05/22/2024 11:30 AM EST Office Visit Dermatology at [address] [address] Inderjit Vilchis MD [facility] DR [facility] [place] [address] 05/22/2024 2:00 PM EST Office Visit Hematology [place] [address] Jean-Pierre Peña MD [facility] DR HEMATOLOGY [place] [address] 05/22/2024 3:30 PM EST Appointment Hematology [place] [phone] 06/11/2024 4:15 PM EST TH Visit (TeleHealth) Hematology [place] [phone] Jean-Pierre Peña MD [facility] DR HEMATOLOGY [place] [address] 06/12/2024 8:30 AM EST Infusion Hematology Oncology at [address] [address] documented as of this encounter Results * Lactate Dehydrogenase (03/19/2024 12:39 PM EST) [facility] Lactate Dehydrogenase 168 110 - 220 unit/L 03/19/2024 1:23 PM EST [facility] Blood VENOUS BLOOD SPECIMEN / Unknown Venipuncture / Unknown 03/19/2024 12:39 PM EST 03/19/2024 12:39 PM EST Jean-Pierre Peña MD CHEMISTRY ORDERABLES [facility] [place] [address] * T4, free (03/19/2024 12:39 PM EST) [...] CHEMISTRY ORDERABLES Performing Organization Address [facility] Co de Phone Number [facility] [place] [address] * TSH (03/19/2024 12:39 PM EST) Thyroid [...] CHEMISTRY ORDERABLES Performing Organization Address [facility] Co de Phone Number [facility] [place] [address] * (ABNORMAL) Comprehensive metabolic panel (03/19/2024 12:39 PM EST) Pathologist [facility] Glucose 96 65 - 199 mg/dL 03/19/2024 1:23 PM EST [facility] Comment:Glucose Concentratio n >=200 mg/dL plus symptoms is consistent with Diabetes Mellitus. Blood Urea Nitrogen 25(H) 8 - 18 mg/dL 03/19/2024 1:23 PM EST [facility] Creatinine 1.14 0.70 - 1.20 mg/dL 03/19/2024 1:23 PM EST [facility] Sodium 138 135 - 145 mMol/L 03/19/2024 1:23 PM EST [facility] Potassium 3.7 3.5 - 5.0 mMol/L 03/19/2024 1:23 PM EST [facility] Chloride 102 98 - 107 mMol/L 03/19/2024 1:23 PM [facility] Carbon Dioxide 24 22 - 31 mMol/L 03/19/2024 1:23 PM [facility] Anion Gap 12 5 - 15 mMol/L 03/19/2024 1:23 PM [facility] Calcium 9.5 8.5 - 10.5 mg/dL 03/19/2024 1:23 PM [facility] Protein, Total 7.1 6.1 - 8.0 g/dL 03/19/2024 1:23 PM [facility] Albumin 4.2 3.2 - 5.2 g/dL 03/19/2024 1:23 PM [facility] Aspartate Aminotransferase 10 <=30 unit/L 03/19/2024 1:23 PM [facility] Alanine Aminotransferase 9 0 - 30 unit/L 03/19/2024 1:23 PM [facility] Alkaline Phosphatase 63 35 - 105 unit/L 03/19/2024 1:23 PM [facility] Bilirubin, Total 0.5 <=1.3 mg/dL 03/19/2024 1:23 PM [facility] Est Glomerular Filtration Rate - Female 56 mL/min/1. 73 m?? 03/19/2024 1:23 PM [facility] Comment: This patient's estimated GFR [...] Foundation Fasting Status No 03/19/2024 1:23 PM [facility] Blood VENOUS BLOOD SPECIMEN / Unknown Venipuncture / Unknown 03/19/2024 12:39 PM EST 03/19/2024 12:39 PM EST Jean-Pierre Peña MD CHEMISTRY ORDERABLES [facility] [place] [address] * (ABNORMAL) CBC (with Diff) (03/19/2024 12:39 PM EST) White Blood Cell 8.89 4.00 - 9.50 x10(3)/mc L 03/19/2024 12:51 PM [facility] Red Blood Cell 4.30 4.00 - 5.21 x10(6)/mc L 03/19/2024 12:51 PM [facility] Hemoglobin 13.2 11.7 - 15.5 g/dL 03/19/2024 12:51 PM [facility] Hematocrit 40.2 35.7 - 45.8 % 03/19/2024 12:51 PM [facility] Mean Cell Volume 93.5 82.6 - 94.4 fL 03/19/2024 12:51 PM [facility] Mean Cell Hemoglobin 30.7 27.1 - 32.0 pg 03/19/2024 12:51 PM [facility] Mean Cell Hemoglobin Concentration 32.8 31.7 - 35.0 g/dL 03/19/2024 12:51 PM [facility] Platelet 358(H) 145 - 357 x10(3)/mc L 03/19/2024 12:51 PM [facility] Mean Platelet Volume 10.6 7.6 - 12.9 fL 03/19/2024 12:51 PM [facility] RDW Standard Deviation 46.5(H) 37.0 - 46.0 fL 03/19/2024 12:51 PM [facility] RDW coefficient of variation 13.6 11.5 - 14.1 % 03/19/2024 12:51 PM [facility] NRBC% auto 0.0 % 03/19/2024 12:51 PM [facility] NRBC Absolute <0.01 <0.01 x10(3)/mc L 03/19/2024 12:51 PM [facility] Neutrophil % 65.0 % 03/19/2024 12:51 PM [facility] Neutrophil Absolute (ANC) - Automated 5.78 1.70 - 6.10 x10(3)/mc L 03/19/2024 12:51 PM [facility] Lymph % 24.1 % 03/19/2024 12:51 PM [facility] Lymph Absolute 2.14 0.90 - 3.20 x10(3)/mc L 03/19/2024 12:51 PM [facility] Monocyte % 7.4 % 03/19/2024 12:51 PM [facility] Monocyte Absolute 0.66 0.30 - 0.90 x10(3)/mc L 03/19/2024 12:51 PM [facility] Eos % 2.6 % 03/19/2024 12:51 PM [facility] Eos Absolute 0.23 0.00 - 0.40 x10(3)/mc L 03/19/2024 12:51 PM [facility] Basophil % 0.7 % 03/19/2024 12:51 PM [facility] Baso Absolute 0.06 0.00 - 0.10 x10(3)/mc L 03/19/2024 12:51 PM [facility] Immature Gran % 0.2 % 12:51 PM [facility] Immature Gran Absolute <0.04 0.00 - 0.04 x10(3)/mc L 03/19/2024 12:51 PM [facility] Blood VENOUS BLOOD SPECIMEN / Unknown Venipuncture / Unknown 03/19/2024 12:39 PM EST 03/19/2024 12:39 PM EST Jean-Pierre Peña MD HEMATOLOGY ORDERABLE S [facility] [address] [place] [address] documented in this encounter Visit Diagnoses Diagnosis [...] 200 mg, Intravenous, ONCE, 1 dose, On 03/19/24 at 1445, Administer over 30 Minutes, Flush Line with NS after each dose, This agent is restricted to outpatient use. Is this drug being given as an outpatient? Yes New Bag 03/19/2024 2:51 PM EST 200 mg 216 mL/hr documented in this encounter Care Teams Senior Nurse Manager Relationship Specialty Start Date End Date Taylor Bryant APRN [address] [place] [address] PCP - General 03/31/10 documented as of this encounter
--- OUTSIDE RECORDS SUMMARY | 2024-04-02 13:58 | XMS_ITS | Continuity of Care Document ---
Author Organization [facility] Address [address] [place] [phone] Care Team Providers Care Ragman Name Role Phone Taylor Bryant Primary Care Physician Meli Cruz Unavailable Unavailable Encounter [facility] [id number] Date(s): 01/05/24 - 01/05/[address] [address] Discharge Disposition: Home or Self Care Attending Physician: Taylor Bryant Admitting Physician: Taylor Bryant Referring Physician: Taylor Bryant Results Radiology Reports * Exam Date Time Procedure Performing Provider Status 01/05/24 10:03 AM MG Mammo Digital Scr eening Bilateral. Velazquez, Jazmine; Auth (Verified) Notes: (MG Mammo Digital Screening Bilateral.) Reason For Exam: Screening for breast cancer MG Mammo Digital Screening Bilateral. EXAMINATION: MG Mammo Digital Screening Bilateral. REASON [...] DENSITY: The breasts are almost entirely fatty. IMPRESSION: BI-RADS Category 1: Negative RECOMMENDATION: Routine mammography screening * Regular screening mammograms starting at age 40 reduce the risk of from breast cancer. * Individuals should discuss the risks and benefits with their provider to determine their preferred breast cancer screening schedule, and at what age screening should stop. * Individuals should report any breast changes to a health care provider right away. * Some Individuals, because of their family history, a genetic tendency, or other factors, should consider being screened with annual breast MRI as well as with mammograms. * Screening mammography may not detect 10-15% of?breast cancers. Thank you for letting us participate in the care of this patient. If you are a health care provider and have any questions regarding this report, please contact the number below. For patients who have questions please contact the health student career development specialist that requested your imaging first. Electronically signed by: Killian Herman MD, [facility] ([phone]), at 01/05/2024 2:[address] [address] Social History Social History Type Response Sex Female Patient Care team information Care Team Personnel Name: Taylor Bryant Position: No Access Member Role: Primary Care Physician Name: Meli Cruz Position: Ambulatory - Cover Assembler Member Role: Cover Assembler Care Team Related Persons Name: ROME BOSWELL Address: [place] [phone]
--- OUTSIDE RECORDS SUMMARY | 2024-04-02 13:58 | XMS_ITS | Encounter Summary ---
Author Organization [facility] Address [facility] [place] [address] Care Team Providers Care Cocoa Room Operator Name Role Phone Taylor Bryant APRN Primary Care Provider [phone] Encounter Details Date Type Department Care Team (Latest Contact Info) Description 02/28/2024 Travel Social History Tobacco Use Types Packs/Day Years Used Date Smoking Tobacco: Former Smokeless Tobacco: Never Comments:quit at age 35 Alcohol Use Standard Drinks/Week Comments Yes 0 (1 standard drink = 0.6 oz pur e alcohol) social gatherings [facility] Utilities Answer Date Recorded In [...] TH Visit (TeleHealth) Hematology [place] [address] Jean-Pierre Peña MD [facility] HEMATOLOGY [place] [address] 04/13/2024 2:30 PM EST Infusion Hematology Oncology at [address] [address] 04/30/2024 12:15 PM EST Laboratory Appointment Lab at [facility] Hematology Oncology [address] [place] [phone] 04/30/2024 1:15 PM EST Office Visit Hematology [place] [phone] Jean-Pierre Peña MD [facility] HEMATOLOGY [place] [address] Vicky Burnham, STORE DIRECTOR [facility] [place] [address] 04/30/2024 2:30 PM EST Appointment Hematology [place] [address] 05/22/2024 9:15 AM EST Laboratory Appointment Lab at [facility] Hematology Oncology [address] [place] [phone] 05/22/2024 10:[address] Scan at [place] [phone] Jean-Pierre Peña MD [facility] DR HEMATOLOGY [place] [address] 05/22/2024 11:30 AM EST Office Visit Dermatology at [address] [phone] Inderjit Vilchis MD [facility] DR [facility] [place] [address] 05/22/2024 2:00 PM EST Office Visit Hematology [place] [address] Jean-Pierre Peña MD [facility] HEMATOLOGY [place] [address] 05/22/2024 3:30 PM EST Appointment Hematology [place] [address] 06/11/2024 4:15 PM EST TH Visit (TeleHealth) Hematology [place] [address] Jean-Pierre Peña MD [facility] HEMATOLOGY [place] [address] 06/12/2024 8:30 AM EST Infusion Hematology Oncology at [address] [phone] documented as of this encounter Visit Diagnoses Not on filedocumented in this encounter Care Teams Cocoa Room Operator Relationship Specialty Start Date End Date Taylor Bryant APRN [address] [place] [address] PCP - General 03/31/10 documented as of this encounter
--- OUTSIDE RECORDS SUMMARY | 2024-04-02 13:58 | XMS_ITS | Encounter Summary ---
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, unspecified lymph node region Procedures [id number] pembrolizumab (Keytruda) Jean-Pierre Peña MD [facility] DR [place] [address] Jean-Pierre Peña MD [facility] DR [place] [address] Referral ID Status Reason Start Date Expiration Date V isits Requested Visits Authorized [id number] Authorized 07/25/2023 07/24/2024 99 99 Encounter Details Date Type Department Care Team (Late st Contact Info) Description 02/28/2024 11:30 AM EDT Infusion Hematology Oncology at [address] [address] Medication management; Malignant melanoma of scalp; 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, unspecified lymph node region Social History Tobacco Use Types Packs/Day Years Used Date Smoking Tobacco: Former Smokeless Tobacco: Never Comments:quit at age 35 Alcohol Use Standard Drinks/Week Comments Yes 0 (1 standard drink = 0.6 oz pur e alcohol) social gatherings [facility] Utilities Answer Date Recorded In the past 12 months has [employer], gas, oil, or water company threatened to [...] Sign Reading Time Taken Comments Blood Pressure 130/70 02/28/2024 11:32 AM EDT Pulse 80 02/28/2024 11:32 AM EDT Temperature 36.2 ??C (97.1 ??F) 02/28/2024 11:32 AM E DT Respiratory Rate 18 02/28/2024 11:32 AM EDT Oxygen Saturation 100% 02/28/2024 11:32 AM EDT Inhaled Oxygen Concentration - - Weight 69.6 kg (153 lb 6.4 oz) 02/28/2024 11:32 AM EDT Height 163.6 cm (5' 4.41) 02/28/2024 11:32 AM E DT Body Mass Index 26 02/28/2024 11:32 AM EDT documented in this encounter Progress Notes * Mabel Wong, RN - 02/28/2024 11:30 AM EDT Patient Name: Keeley Gutierrez Patient Age: 58 y.o. Birthdate: 1965 Admit date: (Not on file) Attending Physician: No att. providers found Keeley Gutierrez, 58 y.o. female with diagnosis of melanoma is here for chemotherapy infusion of keytruda. CYCLE: 8 DAY: 1 S: Pt. offers no complaints at this time. O: Chemotherapy orders independently verified for correct drug name, route and dosage per patient'sheight, weight and BSA by Mabel Wong RN and onsite pharmacist REACTIONS (DESCRIPTION, TIME, INTERVENTION AND EFFECTIVENESS) none A: Pt. Tolerated treatment well. Keeley Gutierrez confirms that all questions and issues have beenaddressed. P: Return to clinic as directed documented in this encounter Plan of Treatment Upcoming Encounters Date Type Department Care Team (Late st Contact Info) Description 04/09/2024 4:15 PM EST TH Visit (TeleHealth) Hematology [place] [address] Jean-Pierre Peña MD [facility] [address] [place] [address] 04/13/2024 2:30 PM EST Infusion Hematology Oncology at [address] [phone] 04/30/2024 12:15 PM EST Laboratory Appointment Lab at [facility] Hematology Oncology [address] [place] [address] 04/30/2024 1:15 PM EST Office Visit Hematology [place] [address] Jean-Pierre Peña MD [facility] DR [place] [address] Vicky Burnham APRN [facility] [place] [address] 04/30/2024 2:30 PM EST Appointment Hematology [place] [address] 05/22/2024 9:15 AM EST Laboratory Appointment Lab at [facility] Hematology Oncology [address] [place] [phone] 05/22/2024 10:[address] [place] [address] Jean-Pierre Peña MD [facility] [address] [place] [address] 05/22/2024 11:30 AM EST Office Visit Dermatology at [address] [phone] Inderjit Vilchis MD [facility] DR [facility] [place] [address] 05/22/2024 2:00 PM EST Office Visit Hematology [place] [address] Jean-Pierre Peña MD [facility] [address] [place] [address] 05/22/2024 3:30 PM EST Appointment Hematology [place] [address] 06/11/2024 4:15 PM EST TH Visit (TeleHealth) Hematology [place] [address] Jean-Pierre Peña MD [facility] DR [place] [address] 06/12/2024 8:30 AM EST Infusion Hematology Oncology at [address] [phone] documented as of this encounter Visit Diagnoses Diagnosis Medication management [...] Intravenous, EVERY 21 DAYS, First dose on Tue02/28/24 at 1230, Until Discontinued, Administer over 30 Minutes, Flush Line with NS after each dose, This agent is restricted to outpatient use. Is this drug being given as an outpatient? Yes New Bag 02/28/2024 12:06 PM EDT 200 mg 216 mL/hr documented in this encounter Care Teams Pomology Teacher Relationship Specialty Start Date End Date Taylor Bryant APRN [address] [place] [address] PCP - General 03/31/10 documented as of this encounter
--- OUTSIDE RECORDS SUMMARY | 2024-04-02 13:58 | XMS_ITS ---
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 Skin wound from surgical incision on right thigh 01/25/2024 Malignant melanoma of scalp 07/25/2023 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 Medication management 07/25/2023 Bilateral knee pain 12/14/2017 Psoriatic arthritis 06/09/2016 Current Oncology Plans [facility] AMB ONC SKIN MELANOMA - PEMBROLIZUMAB* Plan Start Date:08/23/2023 Plan Provider:Jean-Pierre Peña MD Linked Problems Medication managementMaligna nt melanoma of scalp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, unspecified lymph node region Treatment Medications Current Day (Day 1 , Cycle 10 - Planned for 04/09/2024) Next Day (Day 1, Cycle 11 - Planned for 04/30/2024) pembrolizumab (Keytruda) in sodium chloride 0.9% 100 mL infusionpembrolizumab (Keytruda) Recon Soln pembrolizumab (Keytruda) 200 mg in sodium chloride 0.9% 108 mL infusion pembrolizumab (Keytruda) 200 mg in sodium chloride 0.9% 108 mL infusion Past Plans No past plan information found. Radiation Treatments * No radiation treatments are documented for this patient in [facility]. Treatments may have been administered in another system.
--- OUTSIDE RECORDS SUMMARY | 2024-04-02 13:58 | XMS_ITS | Clinical Summary ---
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, unspecified lymph node region; Secondary malignancy of soft tissue; Immunotherapy 03/19/2024 12:45 PM EST Laboratory Appointment Lab at [facility] Hematology Oncology [address] [place], [place] [phone] Medication management; Malignant melanoma of scalp; 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, unspecified lymph node region 03/19/2024 12:32 PM EST - 03/19/2024 11:59 PM EST Hospital Encounter Hematology and Oncology at [place] [phone] Medication management; Malignant melanoma of scalp; 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, unspecified lymph node region Discharge Disposition: Home 03/18/2024 Travel 02/28/2024 11:30 AM EDT Infusion Hematology Oncology at [address] [phone] Medication management; Malignant melanoma of scalp; 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, unspecified lymph node region 02/28/2024 Notes Only Hematology/Oncolog y at [address] [phone] Johanny Carter MSW 02/28/2024 Travel 02/27/2024 8:15 AM EDT TH Visit (TeleHealth) Hematology and Oncology at [place] [phone] Jean-Pierre Peña MD Neilan, Kathleen M, BIOMEDICAL SERVICE ENGINEER Medication management; Malignant melanoma of scalp 02/24/2024 Telephone Hematology [place] [address] Gianna Sanabria RN 02/15/2024 8:30 AM EDT Office Visit Dermatology at [place] [address] [place] [address] Kendra De MD Epidermal inclusion cyst 02/15/2024 Travel 02/06/2024 12:45 PM EDT Office Visit Hematology [place] [address] Jean-Pierre Peña MD Neilan, Kathleen M, BIOMEDICAL SERVICE ENGINEER Malignant melanoma of scalp (Primary Dx); 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, unspecified lymph node region; Medication management; Secondary malignancy of soft tissue; Immunotherapy 02/06/2024 9:24 AM EDT - 02/06/2024 11:59 PM EDT Hospital Encounter Hematology and Oncology at [place] [phone] Medication management; Malignant melanoma of scalp; 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, unspecified lymph node region Discharge Disposition: Home 02/06/2024 9:23 AM EDT Hospital Encounter Hematology and Oncology at [place] [phone] Medication management; Malignant melanoma of scalp; 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, unspecified lymph node region Discharge Disposition: Home 02/06/2024 9:14 AM EDT - 02/06/2024 9:22 AM EDT Hospital Encounter CT Scan at [place] [phone] Jean-iPerre Peña MD Malignant melanoma of scalp; Secondary malignancy of soft tissue Discharge Disposition: Home 02/05/2024 Travel 01/25/2024 10:30 AM EDT Office Visit Wound Care at [place] [phone] Marisabel Alcantar APRN 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; Skin wound from surgical incision on right thigh 01/25/2024 Orders Only H[place]ology [place] [address] Jean-Pierre Peña MD 01/24/2024 Travel 01/19/2024 Telephone Hematology/Oncolog y at [address] [phone] Yaneli Gupta RN Other (Positive for covid) 01/18/2024 11:00 AM EDT TH Visit (TeleHealth) [place] [address] Jean-Pierre Peña MD Malignant melanoma of scalp (Primary Dx); Medication management; Secondary malignancy of soft tissue; Immunotherapy 01/17/2024 Travel 01/05/2024 Interpretation Only [address] [phone] Taylor Bryant APRN 01/02/2024 Orders Only [place] [address] Vicky Burnham, BIOMEDICAL SERVICE ENGINEER Malignant melanoma of scalp; Medication management from Last 3 Months Family History Medical [...] e alcohol) social gatherings [facility] Utilities Answer Date Recorded In the [...] Sign Reading Time Taken Comments Blood Pressure 125/80 03/19/2024 2:02 PM EST Pulse 98 03/19/2024 2:02 PM EST Temperature 36.8 ??C (98.2 ??F) 03/19/2024 2:02 PM ES T Respiratory Rate 16 03/19/2024 2:02 PM EST Oxygen Saturation 99% 03/19/2024 2:02 PM EST Inhaled Oxygen Concentration - - Weight 68.7 kg (151 lb 7.3 oz) 03/19/2024 2:02 P M EST Height 161.4 cm (5' 3.54) 03/19/2024 2:02 PM ES T Body Mass Index 26.37 03/19/2024 2:02 PM EST Plan of Treatment Upcoming Encounters Date Type Department Care Team (Late st Contact Info) Description 04/09/2024 4:15 PM EST Visit (TeleHealth) [place]ology [place] [address] Jean-Pierre Peña MD [facility] [place]AT[place]Y [place] [address] 04/13/2024 2:30 PM EST Infusion Hematology Oncology at [address] [phone] 04/30/2024 12:15 PM EST Laboratory Appointment Lab at [facility] Hematology Oncology [address] [place] [phone] 04/30/2024 1:15 PM EST Office Visit Hematology [place] [address] Jean-Pierre Peña MD [facility] DR HEMATOLOGY [place] [address] Vicky Burnham APRN [facility] [place] [address] 04/30/2024 2:30 PM EST Appointment Hematology [place] [address] 05/22/2024 9:15 AM EST Laboratory Appointment Lab at [facility] Hematology [address] [phone] 05/22/2024 10:[address] [place] [address] Jean-Pierre Peña MD [facility] DR HEMATOLOGY [place] [address] 05/22/2024 11:30 AM EST Office Visit Dermatology at [address] [phone] Inderjit Vilchis MD [facility] DR GILBERTO [place] [address] 05/22/2024 2:00 PM EST Office Visit Hematology [place] [address] Jean-Pierre Peña MD [facility] DR HEMATOLOGY [place] [address] 05/22/2024 3:30 PM EST Appointment Hematology [place] [phone] 06/11/2024 4:15 PM EST TH Visit (TeleHealth) [place] [address] Jean-Pierre Peña MD [facility] DR HEMATOLOGY [place] [address] 06/12/2024 8:30 AM EST Infusion Hematology Oncology at [address] [phone] Health Maintenance Due Date Last Done Comments [...] Advance Directive 2020 Covid-19 Vaccine (1 - 2023-2 5 season) 2024 Influenza (Flu) vaccine (1 o f 1 - Influenza standard series) 01/08/2024 Breast Cancer screening 01/04/2026 01/05/2024 Diabetes Screening (HgbA1C o r Glucose) 03/19/2027 03/19/2024, 02/24/2024, 02/06/2024, Additional history exists HIV screen Completed 07/31/2020 [...] to lymph nodes, unspecified lymph node region EXTERNAL LAB CBC CMP THYROID RESULTS PANEL Routine 02/24/2024 LAB SCAN 02/24/2024 12:00 AM EDT LAB SCAN 02/24/2024 12:[address] NECK SOFT TISSUE W CONTRAST Routine [...] BILATERAL (CH) Routine 01/05/2024 10:03 AM EDT HC HIV SCREEN, 4TH GENERATION Routine 07/31/2020 4:37 PM EDT Psoriatic arthritis Effusion of left knee Medication monitoring encounter High risk medication use HC HEPATITIS C ANTIBODY Routine 07/31/2020 4:37 PM EDT Psoriatic arthritis Effusion of left knee Medication monitoring encounter High risk medication use from Last 3 Months or Most Recently Relevant to Health Maintenance Results * (ABNORMAL) CBC (with Diff) (03/19/2024 12:39 PM EST) Only the most recent of2 resultswithin the time period is included. White Blood Cell 8.89 4.00 - 9.50 x10(3)/mc L 03/19/2024 12:51 PM [facility] Red Blood Cell 4.30 4.00 - 5.21 x10(6)/mc L 03/19/2024 12:51 PM [facility] Hemoglobin 13.2 11.7 - 15.5 g/dL 03/19/2024 12:51 PM [facility] Hematocrit 40.2 35.7 - 45.8 % 03/19/2024 12:51 PM [facility] Mean Cell Volume 93.5 82.6 - 94.4 fL 03/19/2024 12:51 PM [facility] Mean Cell Hemoglobin 30.7 27.1 - 32.0 pg 03/19/2024 12:51 PM [facility] Mean Cell Hemoglobin Concentration 32.8 31.7 - 35.0 g/dL 03/19/2024 12:51 PM [facility] Platelet 358(H) 145 - 357 x10(3)/mc L 03/19/2024 12:51 PM [facility] Mean Platelet Volume 10.6 7.6 - 12.9 fL 03/19/2024 12:51 PM [facility] RDW Standard Deviation 46.5(H) 37.0 - 46.0 fL 03/19/2024 12:51 PM [facility] RDW coefficient of variation 13.6 11.5 - 14.1 % 03/19/2024 12:51 PM [facility] NRBC% auto 0.0 % 03/19/2024 12:51 PM [facility] NRBC Absolute <0.01 <0.01 x10(3)/mc L 03/19/2024 12:51 PM [facility] Neutrophil % 65.0 % 03/19/2024 12:51 PM [facility] Neutrophil Absolute (ANC) - Automated 5.78 1.70 - 6.10 x10(3)/mc L 03/19/2024 12:51 PM [facility] Lymph % 24.1 % 03/19/2024 12:51 PM [facility] Lymph Absolute 2.14 0.90 - 3.20 x10(3)/mc L 03/19/2024 12:51 PM [facility] Monocyte % 7.4 % 03/19/2024 12:51 PM [facility] Monocyte Absolute 0.66 0.30 - 0.90 x10(3)/mc L 03/19/2024 12:51 PM [facility] Eos % 2.6 % 03/19/2024 12:51 PM [facility] Eos Absolute 0.23 0.00 - 0.40 x10(3)/mc L 03/19/2024 12:51 PM [facility] Basophil % 0.7 % 03/19/2024 12:51 PM [facility] Baso Absolute 0.06 0.00 - 0.10 x10(3)/mc L 03/19/2024 12:51 PM [facility] Immature Gran % 0.2 % 12:[address] [facility] Immature Gran Absolute <0.04 0.00 - 0.04 x10(3)/mc L 03/19/2024 12:[address] [facility] Blood VENOUS BLOOD SPECIMEN / Unknown Venipuncture / Unknown 03/19/2024 12:39 PM EST 03/19/2024 12:39 PM EST Jean-Pierre Peña MD HEMATOLOGY ORDERABLE S Performing Organization Address [facility] Co de Phone Number [facility] [place] [address] * TSH (03/19/2024 12:39 PM EST) Only the most recent of2 resultswithin the time period is included. Thyroid Stimulating Hormone 0.84 0.27 - 4.20 mcIU/mL 03/19/2024 1:[address] [facility] Comment: Reference Interval (mcIU/mL): ?? Females: ? First Trimester: 0.23-3.88 ? Second Trimester: 0.22-3.90 ? Third Trimester: 0.44-4.66 Blood VENOUS BLOOD SPECIMEN / Unknown Venipuncture / Unknown 03/19/2024 12:39 PM EST 03/19/2024 12:39 PM EST Jean-Pierre Peña MD CHEMISTRY ORDERABLES Performing Organization Address City/[facility]/ZIP Co de Phone Number [facility] [place] [address] * T4, free (03/19/2024 12:39 PM EST) Only the most recent of2 resultswithin the time period is included. Free T4 1.35 0.93 - 1.70 ng/dL 03/19/2024 1:[address] [facility] Comment: Reference Interval (ng/dL): ?? Females: ? First Trimester: 0.97-1.68 ? Second Trimester: 0.77-1.51 ? Third Trimester: 0.77-1.49 Blood VENOUS BLOOD SPECIMEN / Unknown Venipuncture / Unknown 03/19/2024 12:39 PM EST 03/19/2024 12:39 PM EST Jean-Pierre Peña MD CHEMISTRY ORDERABLES Performing Organization Address City/[facility]/ZIP Co de Phone Number [facility] [place] [address] * Lactate Dehydrogenase (03/19/2024 12:39 PM EST) Only the most recent of2 resultswithin the time period is included. Lactate Dehydrogenase 168 110 - 220 unit/L 03/19/2024 1:23 PM [facility] Blood VENOUS BLOOD SPECIMEN / Unknown Venipuncture / Unknown 03/19/2024 12:39 PM EST 03/19/2024 12:39 PM EST Jean-Pierre Peña MD CHEMISTRY ORDERABLES Performing Organization Address City/[facility]/ZIP Co de Phone Number [facility] [place] [address] * (ABNORMAL) Comprehensive metabolic panel (03/19/2024 12:39 PM EST) Only the most recent of2 resultswithin the time period is included. Glucose 96 65 - 199 mg/dL 03/19/2024 1:[address] [facility] Comment:Glucose Concentratio n >=200 mg/dL plus symptoms is consistent with Diabetes Mellitus. Blood Urea Nitrogen 25(H) 8 - 18 mg/dL 03/19/2024 1:[address] [facility] Creatinine 1.14 0.70 - 1.20 mg/dL 03/19/2024 1:23 PM [facility] Sodium 138 135 - 145 mMol/L 03/19/2024 1:23 PM [facility] Potassium 3.7 3.5 - 5.0 mMol/L 03/19/2024 1:23 PM [facility] Chloride 102 98 - 107 mMol/L 03/19/2024 1:23 PM [facility] Carbon Dioxide 24 22 - 31 mMol/L 03/19/2024 1:23 PM [facility] Anion Gap 12 5 - 15 mMol/L 03/19/2024 1:23 PM [facility] Calcium 9.5 8.5 - 10.5 mg/dL 03/19/2024 1:23 PM [facility] Protein, Total 7.1 6.1 - 8.0 g/dL 03/19/2024 1:23 PM [facility] Albumin 4.2 3.2 - 5.2 g/dL 03/19/2024 1:23 PM [facility] Aspartate Aminotransferase 10 <=30 unit/L 03/19/2024 1:23 PM [facility] Alanine Aminotransferase 9 0 - 30 unit/L 03/19/2024 1:23 PM [facility] Alkaline Phosphatase 63 35 - 105 unit/L 03/19/2024 1:23 PM [facility] Bilirubin, Total 0.5 <=1.3 mg/dL 03/19/2024 1:23 PM [facility] Est Glomerular Filtration Rate - Female 56 mL/min/1. 73 m?? 03/19/2024 1:23 PM [facility] [...] Foundation Fasting Status No 03/19/2024 1:23 PM [facility] Blood VENOUS BLOOD SPECIMEN / Unknown Venipuncture / Unknown 03/19/2024 12:39 PM EST 03/19/2024 12:39 PM EST Jean-Pierre Peña MD CHEMISTRY ORDERABLES [facility] [place] [address] * CBC / CMP / Thyroid External Results (02/24/2024) WBC - External 6.88 RBC - External 3.92 Hemoglobin - External 12 Hematocrit - External 37.6 Platelets - External 290 Neutr ABS (ANC) - External 4.33 Sodium - External 145 Potassium - External 3.8 Chloride - External 108 Blood Urea Nitrogen - External 25 Creatinine - External 1 Glucose Lvl - External 92 Calcium - External 9.1 Albumin - External 3.2 Total Bilirubin - External 0.56 Alk Phos - External 57 AST (SGOT) - External 13 ALT (SGPT) - External 25 LDH - External 150 TSH - External 1.17 T4, Total - External 0.92 02/24/2024 Historical Provider EXTERNAL LAB MIKEY RHOADES * Scan Doc: Lab (02/24/2024 12:00 AM EDT) Only the most recent of2 resultswithin the time period is included. Narrative 02/24/2024 12:00 AM EDT Ordered by an unspecified provider. Scanning Provider MEDIA MGR SCAN EXT O RDR/RSLT * CT Chest Abdomen Pelvis w Contrast (Generic) (02/06/2024 11:53 AM EDT) WORKSTATION ID [id number] DH RAD Anatomical Region Laterality Modality Abdomen, [...] questions please contact the health health care aide that requested your imaging first. ? Narrative 02/07/2024 7:46 PM EDT EXAMINATION: CT [...] have questions please contactthe health health care aide that requested your imaging first. Jean-Pierre Peña MD IMG CT ORDERABLES * CT Neck Soft Tissue w Contrast (Generic) (02/06/2024 11:53 AM EDT) WORKSTATION ID [id number] RAD Anatomical Region Laterality Modality Neck, Head [...] questions please contact the health health care aide that requested your imaging first. ? Narrative [...] have questions please contactthe health health care aide that requested your imaging first. Jean-Pierre Peña MD IMG CT ORDERABLES * (ABNORMAL) Cortisol (02/06/2024 9:30 AM EDT) Cortisol 4.5(L) 4.8 - 19.5 mcg/dL 02/06/2024 1:[address] [facility] Blood VENOUS BLOOD SPECIMEN / Unknown Venipuncture / Unknown 02/06/2024 9:30 AM EDT 02/06/2024 9:[address] [facility] - 02/06/2024 1:40 PM EDT The [...] clinical context. Jean-Pierre Peña MD CHEMISTRY ORDERABLES [facility] [place] [address] * MAMMO SCREENING CAD BILATERAL (CH) (01/05/2024 10:03 AM EDT) PT CLASS O DH RAD ADMITDTTM [id number] RAD PT RAD INFO [id number]^Bristo l^Taylor RAD EXAM DESC MADDSCCH^MG Mammo Digital Screening Bilateral.^RIS RAD WORKSTATION ID RADDRIMAGE [facility] Anatomical Region Laterality Modality Other 01/05/2024 10:0 [...] questions please contact the health health care aide that requested your imaging first. ? [address] ??[phone] Narrative 01/05/2024 2:18 PM EDT EXAMINATION: MG [...] have questions please contactthe health health care aide that requested your imaging first. [address] [address] Taylor Bryant APRN PACS IMAGES * Hepatitis C Antibody (07/31/2020 4:37 PM EDT) Hepatitis C Antibody Negative Negative [facility] Blood specimen (specimen) 07/31/2020 4:37 PM EDT 07/31/2020 4:50 PM EDT Narrative Resulting Agency Comment Spec In Lab Seamus Rosario MD CHEMISTRY ORDERABLES [facility] [place] [address] * HIV Screen, 4th Generation ([facility]/CGP/APD/NLH) (07/31/2020 4:37 PM EDT) [facility] HIV Ab/Ag Screen Negative Negative [facility] Comment: This 4th Generation HIV [...] In Lab Seamus Rosario MD CHEMISTRY ORDERABLES [facility] [place] [address] from Last 3 Months or Most Recently Relevant to Health Maintenance Advance Directives * Full Code (Latest Code Status on File) Date Activated Date Inactivated Comments 09/28/2023 2:17 PM Question Answer Comments Does patient have capacity to make decision: Yes Care Teams Chemical Equipment Controller Relationship Specialty Start Date End Date Taylor Bryant APRN [address] [place] [id number] PCP - General 03/31/10
--- OUTSIDE RECORDS SUMMARY | 2024-04-02 13:58 | XMS_ITS | Encounter Summary ---
Author Organization [facility] Address [facility] [place] [address] Care Team Providers Care Sucker Machine Operator Name Role Phone Taylor Bryant APRN Primary Care Provider [phone] Encounter Details Date Type Department Care Team (Latest Contact Info) Description 03/18/2024 Travel Social History Tobacco Use Types Packs/Day [...] TH Visit (TeleHealth) [place]ology [place] [address] Jean-Pierre Peña MD [facility] [place] [address] 04/13/2024 2:30 PM EST Infusion Hematology Oncology at [address] [phone] 04/30/2024 12:15 PM EST Laboratory Appointment Lab at [facility] Hematology Oncology [address] [place] [phone] 04/30/2024 1:15 PM EST Office Visit Hematology [place] [phone] Jean-Pierre Peña MD [facility] [place] [address] Vicky Burnham, TECHNICAL ASST [facility] [place] [address] 04/30/2024 2:30 PM EST Appointment Hematology [place] [phone] 05/22/2024 9:15 AM EST Laboratory Appointment Lab at [facility] Hematology Oncology [address] [place] [phone] 05/22/2024 10:[address] Scan at [place] [phone] Jean-Pierre Peña MD [facility] DR [place] [address] 05/22/2024 11:30 AM EST Office Visit Dermatology at [address] [phone] Inderjit Vilchis MD [facility] DR GILBERTO [place] [address] 05/22/2024 2:00 PM EST Office Visit Hematology [place] [address] Jean-Pierre Peña MD [facility] [place] [address] 05/22/2024 3:30 PM EST Appointment Hematology [place] [address] 06/11/2024 4:15 PM EST TH Visit (TeleHealth) [place]ematology [place] [address] Jean-Pierre Peña MD [facility] [place] [address] 06/12/2024 8:30 AM EST Infusion Hematology Oncology at [address] [phone] documented as of this encounter Visit Diagnoses Not on filedocumented in this encounter Care Teams Sucker Machine Operator Relationship Specialty Start Date End Date Taylor Bryant APRN [address] [place] [address] PCP - General 03/31/10 documented as of this encounter
--- OUTSIDE RECORDS SUMMARY | 2024-04-02 13:58 | XMS_ITS | Encounter Summary ---
Author Organization [facility] Address [facility] [place] [address] Care Team Providers Care Tobacco Stripper Name Role Phone Taylor Bryant ZARA Primary Care Provider [phone] [phone] Encounter Details Date Type Department Care Team ([facility] st Contact Info) Description 02/27/2024 8:15 AM EDT TH Visit (TeleHealth) Hematology [place] [address] Jean-Pierre Peña MD [facility] [address] [place] [address] Vicky Burnham APRN [facility] [place] [address] Medication management; Malignant melanoma of scalp Social History Tobacco Use Types Packs/Day Years Used Date Smoking Tobacco: Former Smokeless Tobacco: Never Comments:quit at age 35 Alcohol Use Standard Drinks/Week Comments Yes 0 (1 standard drink = 0.6 oz pur e alcohol) social gatherings [facility] Utilities Answer Date Recorded In [...] as of this encounter Progress Notes * Vicky Burnham, INDUSTRIAL ORGANIZATIONAL PSYCHOLOGIST - 02/27/2024 8:15 AM EDT Images from the original note were not included. [facility] CLINIC NOTE REFERING PHYSICIAN: DIAGNOSIS: Right occipital scalp melanoma PATH: Malignant melanoma At least T2a 1.5 mm depth with positive margin 6 mitosis BRAF V600K/R variant. CURRENT TX: Cycle #6 adjuvant,(total cycle #8) pembrolizumab on 02/28/2024 Cycle #1, adjuvant pembrolizumab on 10/04/2023 Wide [...] COVID19 Cycle #5 adjuvant pembrolizumab on 02/06/2024 Cycle #6 adjuvant pembrolizumab on 02/28/2024 History of psoriatic arthritis over 20 years [...] INTERVAL HISTORY: This is a video visit being prior to cycle #6 pembrolizumab Clinically she continues to do well. After having Covid last month she feels as though she is back to her baseline. Stable [...] CERVICAL NODES (WRVU 6.74) performed by Castro Preciaod MD at [facility] MAIN OR [...] ascorbic acid (Vitamin C), cholecalciferol (Vitamin D3), minoxidiL, multivit-min/vit C/herb no.124, and predniSONE ALLERGY: Codeine with nausea vomiting Allergies Allergen [...] acute distress. in good mood and spirits Video visit LABS: Unremarkable CBC with differential Unremarkable CMP LDH 150 Unremarkable thyroid function test IMAGING STUDIES: CT of the neck on [...] 10/04/2023 Clinically she is doing fairly well. Will proceed to cycle#6 pembrolizumab today. She will receive pembrolizumab infusion every other cycle at [place] from logistical reason. I will have her come back in 3 weeks with labs and next the pembrolizumab infusion in [place]. We will continue this until June 2024 to complete 1 year of adjuvant treatment. The patient was instructed to call us with any new symptoms or concerns. Vicky Burnham APRN RTC in 3 weeks with labs and infusion of pembrolizumab as scheduled Labs in [address] [facility], telehealth visit, and infusion of pembrolizumab in [facility] RTC 9 weeks with labs and infusion of pembrolizumab documented in this encounter Plan of Treatment Upcoming Encounters Date Type Department Care Team (Late st Contact Info) Description 04/09/2024 4:15 PM EST TH Visit (TeleHealth) Hematology [place] [address] Jean-Pierre Peña MD [facility] [address] [place] [address] 04/13/2024 2:30 PM EST Infusion Hematology Oncology at [address] [phone] 04/30/2024 12:15 PM EST Laboratory Appointment Lab at [facility] Hematology Oncology [address] [place] [phone] 04/30/2024 1:15 PM EST Office Visit Hematology [place] [address] Jean-Pierre Peña MD [facility] [address] [place] [address] Vicky Burnham APRN [facility] [place] [address] 04/30/2024 2:30 PM EST Appointment Hematology [place] [address] 05/22/2024 9:15 AM EST Laboratory Appointment Lab at [facility] Hematology Oncology [address] [place] [phone] 05/22/2024 10:[address] [place] [address] Jean-Pierre Peña MD [facility] [address] [place] [address] 05/22/2024 11:30 AM EST Office Visit Dermatology at [address] [phone] Inderjit Vilchis MD [facility] [place] [address] 05/22/2024 2:00 PM EST Office Visit Hematology [place] [address] Jean-Pierre Peña MD [facility] [place] [address] 05/22/2024 3:30 PM EST Appointment Hematology [place] [address] 06/11/2024 4:15 PM EST TH Visit (TeleHealth) [place] [address] Jean-Pierre Peña MD [facility] DR HEMATOLOGY [place] [address] 06/12/2024 8:30 AM EST Infusion Hematology Oncology at [address] [phone] Scheduled Orders Name Type Priority Associated Diagnoses Orde r Schedule TSH Lab STAT Medication management Expected: 04/09/2024 (Approximate), Expires: 08/27/2025 CBC (with Diff) Lab STAT Malignant melanoma of scalp Expected: 04/09/2024 (Approximate), Expires: 08/27/2025 Comprehensive metabolic panel Non-fasting Lab STAT Malignant melanoma of scalp Expected: 04/09/2024 (Approximate), Expires: 08/27/2025 Lactate Dehydrogenase Lab STAT Malignant melanoma of scalp Expected: 04/09/2024 (Approximate), Expires: 08/27/2025 T4, free Lab STAT Medication management Expected: 04/09/2024 (Approximate), Expires: 08/27/2025 documented as of this encounter Visit Diagnoses Diagnosis Medication management Encounter for long-term (current) use of other medications Malignant melanoma of scalp Malignant melanoma of skin of scalp and neck documented in this encounter Care Teams Tobacco Stripper Relationship Specialty Start Date End Date Taylor Bryant APRN [address] [place] [address] PCP - General 03/31/10 documented as of this encounter
--- OUTSIDE RECORDS SUMMARY | 2024-04-02 13:58 | XMS_ITS | Encounter Summary ---
Author Organization [facility] [place] [address] Care Team Providers Care Breastfeeding Program Coordinator Name Role Phone Taylor Bryant APRN Primary Care Provider [phone] Encounter Details Date Type Department Care Team ([facility] st Contact Info) Description 02/24/2024 Telephone Hematology [place] [phone] Gianna Sanabria RN Social History Tobacco Use Types Packs/Day Years Used Date Smoking Tobacco: Former Smokeless Tobacco: Never Comments:quit at age 35 Alcohol Use Standard Drinks/Week Comments Yes 0 (1 standard drink = 0.6 oz pur e alcohol) social gatherings [facility] Utilities Answer Date Recorded In [...] Telephone Encounter - Gianna Sanabria RN - 02/24/2024 7:07 AM EDT Message received from Nursing :Labs in [facility] 02/23, televisit 02/26 infusion in [facility] 02/27 Lab result in chart and they look good. documented in this encounter Plan of Treatment Upcoming Encounters Date Type Department Care Team (Late st Contact Info) Description 04/09/2024 4:15 PM EST TH Visit (TeleHealth) [place] [address] Jean-Pierre Peña MD [facility] HEMATOLOGY [place] [address] 04/13/2024 2:30 PM EST Infusion Hematology Oncology at [address] [address] 04/30/2024 12:15 PM EST Laboratory Appointment Lab at [facility] Hematology Oncology [address] [place] [phone] 04/30/2024 1:15 PM EST Office Visit Hematology and Oncology at [place] [phone] Jean-Pierre Peña MD [facility] DR HEMATOLOGY [place] [address] Vicky Burnham APRN [facility] [place] [address] 04/30/2024 2:30 PM EST Appointment Hematology and Oncology at [place] [phone] 05/22/2024 9:15 AM EST Laboratory Appointment Lab at [facility] Hematology Oncology [address] [place] [phone] 05/22/2024 10:[address] [place] [place] [address] Jean-Pierre Peña MD [facility] DR HEMATOLOGY [place] [address] 05/22/2024 11:30 AM EST Office Visit Dermatology at [address] [address] Inderjit Vilchis MD [facility] DR GIL[facility]ERTO [place] [address] 05/22/2024 2:00 PM EST Office Visit [place]ology [place] [address] Jean-Pierre Peña MD [facility] HEMATOLOGY [place] [address] 05/22/2024 3:30 PM EST Appointment [place]ology [place] [address] 06/11/2024 4:15 PM EST TH Visit (TeleHealth) [place] [address] Jean-Pierre Peña MD [facility] DR HEMATOLOGY [place] [address] 06/12/2024 8:30 AM EST Infusion Hematology Oncology at [address] [phone] documented as of this encounter Procedures Procedure Name Priority Date/Time Associated Diagnosis Comments EXTERNAL LAB CBC CMP THYROID RESULTS PANEL Routine 02/24/2024 documented in this encounter Results * CBC / CMP / Thyroid External [...] 02/24/2024 Historical Provider EXTERNAL LAB MIKEY RHOADES documented in this encounter Visit Diagnoses Not on filedocumented in this encounter Care Teams Breastfeeding Program Coordinator Relationship Specialty Start Date End Date Taylor Bryant APRN [address] [place] [address] PCP - General 03/31/10 documented as of this encounter
--- OUTSIDE RECORDS SUMMARY | 2024-04-02 13:58 | XMS_ITS | Encounter Summary ---
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 Procedures CT Neck Soft Tissue w Contrast (Generic) Jean-Pierre Peña MD [facility] DR H[place] [address] [facility] [place] [address] Referral ID Status Reason Start Date Expiration Date Visits Requested Visits Authorized [id number] Authorized Specialty Service Requested 4 09/17/2025 1 1 * Diagnostic Test (Routine) - Authorized Specialty Diagnoses / Procedures Referred By Contac t Referred To Contact Radiology Diagnoses 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, unspecified lymph node region Procedures CT Chest Abdomen Pelvis w Contrast (Generic) Jean-Pierre Peña MD [facility] DR H[place] [address] [facility] [place] [address] Referral ID Status Reason Start Date Expiration Date Visits Requested Visits Authorized [id number] Authorized Specialty Service Requested 4 09/17/2025 1 1 Reason for Visit * Reason Comments Follow-up Encounter Details Date Type Department Care Team (Late st Contact Info) Description 03/19/2024 1:45 PM EST Office Visit Hematology [place] [address] Jean-Pierre Peña MD [facility] DR HEM[place] [address] Vicky Burnham APRN [facility] [place] [address] Malignant melanoma of scalp; Medication management; 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 No 07/24/2023 DH IPV Inpatient [...] Mass Index 26.37 03/19/2024 2:02 PM EST documented in this encounter Progress Notes * Jean-Pierre Peña MD - 03/19/2024 1:45 PM EST Images from the original note were not included. [facility] CLINIC NOTE REFERING PHYSICIAN: DIAGNOSIS: Right occipital scalp melanoma PATH: Malignant melanoma At least T2a 1.5 mm depth with positive margin 6 mitosis BRAF V600K/R variant. CURRENT TX: Cycle #7 adjuvant,(total cycle #9) pembrolizumab on 03/19/2024 Cycle #1, adjuvant pembrolizumab on 10/04/2023 Wide [...] 02/06/2024 Cycle #6 adjuvant pembrolizumab on 02/28/2024 Cycle #7 adjuvant,(total cycle #9) pembrolizumab on 03/19/2024 History of psoriatic arthritis over 20 years [...] 07/25/2023 to discuss treatment options. INTERVAL HISTORY: Keeley is here for cycle #7 pembrolizumab. Clinically she continues to do well with manageable joint pain and fatigue. No other obvious pembrolizumab related toxicity. REVIEW [...] 9.72) performed by Castro Preciado MD at [facility] MAIN OR PRO BX/REMV, LYMPH NODE, DEEP CERV Right 09/16/2023 BIOPSY OR EXCISION OF LYMPH NODE(S), OPEN, DEEP CERVICAL NODES (WRVU 6.74) performed by Castro Preciado MD at [facility] MAIN OR PRO RADICAL RESECT OF TUMOR, SOFT TISSUE FACE OR SCALP, 2CM OR GREATER Right 09/16/2023 RADICAL RESECTION TUMOR SCALP; >2 CM (WRVU 15.26) performed by Castro Preciado MD at [facility] MAIN OR PRO SPLIT GRFT, HEAD, FAC, HAND, FEET <100SQCM Right 09/28/2023 SPLIT THICKNESS SKIN SPLIT GRAFT,100SQ CM OR LESS, NECK (WRVU 10.15) performed by Castro Preciado MD at [facility] MAIN OR TUBAL LIGATION MEDS: FLUoxetine, [...] distress. in good mood and spirits BP 125/80 (Patient Position: Sitting) Pulse 98 Temp 36.8 ??C (98.2 ??F) (Temporal) Resp 16 Ht 161.4 cm (5' 3.54) Wt 68.7 kg (151 lb 7.3 oz) SpO2 99% BMI 26.37 kg/m?? Eyes: Not icteric, not injected Oral: Not examined Neck: Supple. No lymphadenopathy. Lungs: Bilaterally clear to auscultation, No wheezing, No crackles Heart: Regular rate and rhythm. Abdomen: Soft, no tenderness, no mass, normal active bowel sounds. Extremities: No edema. Skin: No rash, well-healed surgical scar Neuro: No focal weakness LABS: Unremarkable CBC with differential Unremarkable CMP LDH 168 Unremarkable thyroid function test IMAGING STUDIES: CT [...] #1 adjuvant pembrolizumab on 10/04/2023 Clinically she continues to do well. Will proceed to cycle #7 pembrolizumab today. She will receive pembrolizumab infusion every other cycle at [place] from logistical reason. Will arrange telehealth visit in 3 weeks with labs and prior to the cycle #8 pembrolizumab infusionin [place]. I will have her come back on 04/30/2024 for cycle #9 pembrolizumab in [place]. Because of her dermatology appointment on 05/22/2024 , we decided to arrange surveillance CT scan onthe same day in [place] prior to cycle #10 pembrolizumab. We will continue this until June 2024 to complete 1 year of adjuvant treatment. The patient was instructed to call us with any new symptoms or concerns. Jean-Pierre Peña MD Labs in 3 weeks at [facility], telehealth visit, pembrolizumab in [facility] RTC 04/30 with labs pembrolizumab in [place] RTC on 05/[address] neck Chest abd pelvis and pembrolizumab in [place] Labs in 12 weeks at [facility], telehealth visit, pembrolizumab in [facility] documented in this encounter Plan of Treatment Upcoming Encounters Date Type Department Care Team (Late st Contact Info) Description 04/09/2024 4:15 PM EST TH Visit (TeleHealth) [place] [address] Jean-Pierre Peña MD [facility] DR HEMAT[place] [address] 04/13/2024 2:30 PM EST Infusion Hematology Oncology at [address] [phone] 04/30/2024 12:15 PM EST Laboratory Appointment Lab at [facility] Hematology Oncology [address] [place] [phone] 04/30/2024 1:15 PM EST Office Visit Hematology [place] [address] Jean-Pierre Peña MD [facility] DR HEMAT[place] [address] Vicky Burnham APRN [facility] [place] [address] 04/30/2024 2:30 PM EST Appointment Hematology [place] [address] 05/22/2024 9:15 AM EST Laboratory Appointment Lab at [facility] Hematology Oncology [address] [place] [phone] 05/22/2024 10:[address] [place] [place] [address] Jean-Pierre Peña MD [facility] DR HEM[place] [address] 05/22/2024 11:30 AM EST Office Visit Dermatology at [place] [address] [place] [address] Inderjit Vilchis MD [facility] DR GIL[facility]ERT[facility] [place] [address] 05/22/2024 2:00 PM EST Office Visit Hematology [place] [address] Jean-Pierre Peña MD [facility] DR [place] [address] 05/22/2024 3:30 PM EST Appointment Hematology [place] [address] 06/11/2024 4:15 PM EST TH Visit (TeleHealth) [place] [address] Jean-Pierre Peña MD [facility] DR [place] [address] 06/12/2024 8:30 AM EST Infusion Hematology Oncology at [address] [phone] Scheduled Orders Name Type Priority Associated Diagnoses Orde r Schedule CT Chest Abdomen Pelvis w Contrast (Generic) Imaging Routine 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, unspecified lymph node region Expected: 05/22/2024 (Approximate), Expires: 09/17/2025 CT Neck Soft Tissue w Contrast (Generic) Imaging Routine 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, 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 Expected: 05/22/2024 (Approximate), Expires: 09/17/2025 documented as of this encounter Visit Diagnoses Diagnosis Malignant melanoma of scalp Malignant melanoma of skin of scalp and neck Medication management Encounter for long-term (current) use of other medications 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
--- OUTSIDE RECORDS SUMMARY | 2024-04-02 13:59 | XMS_ITS | Encounter Summary ---
Author Organization [facility] Address [facility] [place] [address] Care Team Providers Care Smoke Jumper Supervisor Name Role Phone Taylor Bryant APRN Primary Care Provider [phone] Encounter Details Date Type Department Care Team [...] in a detention (including now)? No 07/24/2023 IPV Inpatient Questions [...] TH Visit (TeleHealth) [place]ology [place] [address] Jean-Pierre Peña MD [facility] HEMATOLOGY [place] [address] 04/13/2024 2:30 PM EST Infusion Hematology Oncology at [address] [address] 04/30/2024 12:15 PM EST Laboratory Appointment Lab at [facility] Hematology Oncology [address] [place] [phone] 04/30/2024 1:15 PM EST Office Visit [place]ematology [place] [phone] Jean-Pierre Peña MD [facility] HEMATOLOGY [place] [address] Vicky Burnham, CLOTH FINISHING [employer]ANGE BACK TENDER [facility] [place] [address] 04/30/2024 2:30 PM EST Appointment Hematology [place] [address] 05/22/2024 9:15 AM EST Laboratory Appointment Lab at [facility] Hematology Oncology [address] [place] [phone] 05/22/2024 10:[address] Scan at [place] [phone] Jean-Pierre Peña MD [facility] DR HEMATOLOGY [place] [address] 05/22/2024 11:30 AM EST Office Visit Dermatology at [address] [phone] Inderjit Vilchis MD [facility] DR GILBERTO [place] [address] 05/22/2024 2:00 PM EST Office Visit [place]ematology [place] [address] Jean-Pierre Peña MD [facility] HEMATOLOGY [place] [address] 05/22/2024 3:30 PM EST Appointment [place]ematology [place] [address] 06/11/2024 4:15 PM EST TH Visit (TeleHealth) [place]ematology [place] [address] Jean-Pierre Peña MD [facility] HEMATOLOGY [place] [address] 06/12/2024 8:30 AM EST Infusion Hematology Oncology at [address] [phone] documented as of this encounter Visit Diagnoses Not on filedocumented in this encounter Care Teams Smoke Jumper Supervisor Relationship Specialty Start Date End Date Taylor Bryant APRN [address] [place] [address] PCP - General 03/31/10 documented as of this encounter
--- OUTSIDE RECORDS SUMMARY | 2024-04-02 13:59 | XMS_ITS | Encounter Summary ---
Author Organization 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, unspecified lymph node region Procedures [id number] pembrolizumab (Keytruda) Jean-Pierre Peña MD [facility] [place] [address] Jean-Pierre Peña MD [facility] [address] [place] [address] Referral ID Status Reason Start Date Expiration Date V isits Requested Visits Authorized [id number] Authorized 07/25/2023 07/24/2024 99 99 Encounter Details Date Type Department Care Team (Latest Contact Info) Description 02/06/2024 9:23 AM EDT Hospital Encounter Hematology [place] [address] Medication management; Malignant melanoma of scalp; 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, unspecified lymph node region Discharge Disposition: Home Social History Tobacco Use Types Packs/Day Years Used Date Smoking Tobacco: Former Smokeless Tobacco: Never Comments:quit at age 35 Alcohol Use Standard Drinks/Week Comments Yes 0 (1 standard drink = 0.6 oz pur e alcohol) social gatherings [facility] Utilities Answer Date Recorded In [...] TH Visit (TeleHealth) Hematology [place] [address] Jean-Pierre Peña MD [facility] [place] [address] 04/13/2024 2:30 PM EST Infusion Hematology Oncology at [address] [phone] 04/30/2024 12:15 PM EST Laboratory Appointment Lab at [facility] Hematology Oncology [address] [place] [phone] 04/30/2024 1:15 PM EST Office Visit Hematology [place] [phone] Jean-Pierre Peña MD [facility] [address] [place] [address] Vicky Burnham APRN [facility] [place] [address] 04/30/2024 2:30 PM EST Appointment Hematology [place] [address] 05/22/2024 9:15 AM EST Laboratory Appointment Lab at [facility] Hematology Oncology [address] [place] [phone] 05/22/2024 10:[address] [place] [phone] Jean-Pierre Peña MD [facility] [place] [address] 05/22/2024 11:30 AM EST Office Visit Dermatology at [address] [phone] Inderjit Vilchis MD [facility] [address] GIL[facility]ERT[facility] [place] [address] 05/22/2024 2:00 PM EST Office Visit Hematology [place] [address] Jean-Pierre Peña MD [facility] [address] [place] [address] 05/22/2024 3:30 PM EST Appointment Hematology [place] [phone] 06/11/2024 4:15 PM EST TH Visit (TeleHealth) Hematology [place] [phone] Jean-Pierre Peña MD [facility] [address] [place] [address] 06/12/2024 8:30 AM EST Infusion Hematology Oncology at [address] [phone] documented as of this encounter Results * Lactate Dehydrogenase (02/06/2024 9:30 AM EDT) [facility] Lactate Dehydrogenase 163 110 - 220 unit/L 02/06/2024 10:45 AM EDT [facility] Blood VENOUS BLOOD SPECIMEN / Unknown Venipuncture / Unknown 02/06/2024 9:30 AM EDT 02/06/2024 9:30 AM EDT Jean-Pierre Peña MD CHEMISTRY ORDERABLES [facility] [place] [address] * T4, free (02/06/2024 9:30 AM EDT) Pathologist [facility] Free T4 1.33 0.93 - 1.70 ng/dL 02/06/2024 10:45 AM EDT [facility] Comment: Reference Interval (ng/dL): ?? Females: ? First Trimester: 0.97-1.68 ? Second Trimester: 0.77-1.51 ? Third Trimester: 0.77-1.49 Blood VENOUS BLOOD SPECIMEN / Unknown Venipuncture / Unknown 02/06/2024 9:30 AM EDT 02/06/2024 9:30 AM EDT Jean-Pierre Peña MD CHEMISTRY ORDERABLES Performing Organization Address [facility]/ZIP Co de Phone Number [facility] [place] [address] * TSH (02/06/2024 9:30 AM EDT) Thyroid Stimulating Hormone 0.67 0.27 - 4.20 mcIU/mL 02/06/2024 10:45 AM EDT [facility] Comment: Reference Interval (mcIU/mL): ?? Females: ? First Trimester: 0.23-3.88 ? Second Trimester: 0.22-3.90 ? Third Trimester: 0.44-4.66 Blood VENOUS BLOOD SPECIMEN / Unknown Venipuncture / Unknown 02/06/2024 9:30 AM EDT 02/06/2024 9:30 AM EDT Jean-Pierre Peña MD CHEMISTRY ORDERABLES Performing Organization Address City/[facility]/ZIP Co de Phone Number [facility] [place] [address] * (ABNORMAL) Comprehensive metabolic panel (02/06/2024 9:30 AM EDT) Glucose 89 65 - 199 mg/dL 02/06/2024 10:45 AM EDT [facility] Comment:Glucose Concentratio n >=200 mg/dL plus symptoms is consistent with Diabetes Mellitus. Blood Urea Nitrogen 18 8 - 18 mg/dL 02/06/2024 10:45 AM EDT [facility] Creatinine 0.95 0.70 - 1.20 mg/dL 02/06/2024 10:45 AM EDT [facility] Sodium 144 135 - 145 mMol/L 02/06/2024 10:45 AM EDT [facility] Potassium 3.7 3.5 - 5.0 mMol/L 02/06/2024 10:45 AM EDT [facility] Chloride 109(H) 98 - 107 mMol/L 02/06/2024 10:45 AM [facility] Carbon Dioxide 24 22 - 31 mMol/L 02/06/2024 10:45 AM [facility] Anion Gap 11 5 - 15 mMol/L 02/06/2024 10:45 AM [facility] Calcium 9.2 8.5 - 10.5 mg/dL 02/06/2024 10:45 AM [facility] Protein, Total 6.5 6.1 - 8.0 g/dL 02/06/2024 10:45 AM [facility] Albumin 4.1 3.2 - 5.2 g/dL 02/06/2024 10:45 AM [facility] Aspartate Aminotransferase 12 <=30 unit/L 02/06/2024 10:45 AM [facility] Alanine Aminotransferase 11 0 - 30 unit/L 02/06/2024 10:45 AM [facility] Alkaline Phosphatase 56 35 - 105 unit/L 02/06/2024 10:45 AM [facility] Bilirubin, Total 0.6 <=1.3 mg/dL 02/06/2024 10:45 AM [facility] Est Glomerular Filtration Rate - Female 70 mL/min/1. 73 m?? 02/06/2024 10:45 AM [facility] Comment: This patient's estimated GFR [...] Foundation Fasting Status No 02/06/2024 10:45 AM [facility] Blood VENOUS BLOOD SPECIMEN / Unknown Venipuncture / Unknown 02/06/2024 9:30 AM EDT 02/06/2024 9:30 AM EDT Jean-Pierre Peña MD CHEMISTRY ORDERABLES [facility] [place] [address] * (ABNORMAL) CBC (with Diff) (02/06/2024 9:30 AM EDT) White Blood Cell 6.78 4.00 - 9.50 x10(3)/mc L 02/06/2024 10:21 AM [facility] Red Blood Cell 3.93(L) 4.00 - 5.21 x10(6)/mc L 02/06/2024 10:21 AM [facility] Hemoglobin 12.1 11.7 - 15.5 g/dL 02/06/2024 10:21 AM [facility] Hematocrit 36.2 35.7 - 45.8 % 02/06/2024 10:21 AM [facility] Mean Cell Volume 92.1 82.6 - 94.4 fL 02/06/2024 10:21 AM [facility] Mean Cell Hemoglobin 30.8 27.1 - 32.0 pg 02/06/2024 10:21 AM [facility] Mean Cell Hemoglobin Concentration 33.4 31.7 - 35.0 g/dL 02/06/2024 10:21 AM [facility] Platelet 321 145 - 357 x10(3)/mc L 02/06/2024 10:21 AM [facility] Mean Platelet Volume 11.1 7.6 - 12.9 fL 02/06/2024 10:21 AM [facility] RDW Standard Deviation 48.3(H) 37.0 - 46.0 fL 02/06/2024 10:21 AM [facility] RDW coefficient of variation 14.3(H) 11.5 - 14.1 % 02/06/2024 10:21 AM [facility] NRBC% auto 0.0 % 02/06/2024 10:21 AM [facility] NRBC Absolute <0.01 <0.01 x10(3)/mc L 02/06/2024 10:21 AM [facility] Neutrophil % 59.4 % 02/06/2024 10:21 AM [facility] Neutrophil Absolute (ANC) - Automated 4.03 1.70 - 6.10 x10(3)/mc L 02/06/2024 10:21 AM [facility] Lymph % 24.5 % 02/06/2024 10:21 AM [facility] Lymph Absolute 1.66 0.90 - 3.20 x10(3)/mc L 02/06/2024 10:21 AM [facility] Monocyte % 10.8 % 02/06/2024 10:21 AM [facility] Monocyte Absolute 0.73 0.30 - 0.90 x10(3)/mc L 02/06/2024 10:21 AM [facility] Eos % 4.3 % 02/06/2024 10:21 AM [facility] Eos Absolute 0.29 0.00 - 0.40 x10(3)/mc L 02/06/2024 10:21 AM [facility] Basophil % 0.9 % 02/06/2024 10:21 AM [facility] Baso Absolute 0.06 0.00 - 0.10 x10(3)/mc L 02/06/2024 10:21 AM [facility] Immature Gran % 0.1 % 10:21 AM [facility] Immature Gran Absolute <0.04 0.00 - 0.04 x10(3)/mc L 02/06/2024 10:21 AM EDT [facility] Blood VENOUS BLOOD SPECIMEN / Unknown Venipuncture / Unknown 02/06/2024 9:30 AM EDT 02/06/2024 9:30 AM EDT Jean-Pierre Peña MD HEMATOLOGY ORDERABLE S [facility] [place] [address] documented in this encounter Visit Diagnoses Diagnosis [...] 200 mg, Intravenous, ONCE, 1 dose, On 02/06/24 at 1330, Administer over 30 Minutes, Flush Line with NS after each dose, This agent is restricted to outpatient use. Is this drug being given as an outpatient? Yes New Bag 02/06/2024 1:59 PM EDT 200 mg 216 mL/hr documented in this encounter Care Teams Prospect Manager Relationship Specialty Start Date End Date Taylor Bryant APRN [address] [place] [address] PCP - General 03/31/10 documented as of this encounter
--- OUTSIDE RECORDS SUMMARY | 2024-04-02 13:59 | XMS_ITS | Encounter Summary ---
Author Organization [facility] Address [facility] [place] [address] Care Team Providers Care Spotter Name Role Phone Taylor Bryant APRN Primary Care Provider +1 [phone] Encounter Details Date Type Department Care Team (Latest Contact Info) Description 02/05/2024 Travel Social History Tobacco Use Types Packs/Day Years Used Date Smoking Tobacco: Former Smokeless Tobacco: Never Comments:quit at age 35 Alcohol Use Standard Drinks/Week Comments Yes 0 (1 standard drink = 0.6 oz pur e alcohol) social gatherings [facility] Utilities Answer Date Recorded In [...] TH Visit (TeleHealth) [place] [address] Jean-Pierre Peña MD [facility] H[place]ATOLOGY [place] [address] 04/13/2024 2:30 PM EST Infusion Hematology Oncology at [address] [phone] 04/30/2024 12:15 PM EST Laboratory Appointment Lab at [facility] Hematology Oncology [address] [place] [phone] 04/30/2024 1:15 PM EST Office Visit [place] [phone] Jean-Pierre Peña MD [facility] HEMATOLOGY [place] [address] Vicky Burnham, [place] SCIENTIST [facility] [place] [address] 04/30/2024 2:30 PM EST Appointment [place]ematology [place] [address] 05/22/2024 9:15 AM EST Laboratory Appointment Lab at [facility] Hematology Oncology [address] [place] [phone] 05/22/2024 10:[address] Scan at [place] [phone] Jean-Pierre Peña MD [facility] DR HEMATOLOGY [place] [address] 05/22/2024 11:30 AM EST Office Visit Dermatology at [address] [phone] Inderjit Vilchis MD [facility] DR GILBERTO [place] [address] 05/22/2024 2:00 PM EST Office Visit [place] [address] Jean-Pierre Peña MD [facility] HEMATOLOGY [place] [address] 05/22/2024 3:30 PM EST Appointment [place]ematology [place] [address] 06/11/2024 4:15 PM EST TH Visit (TeleHealth) [place] [address] Jean-Pierre Peña MD [facility] HEMATOLOGY [place] [address] 06/12/2024 8:30 AM EST Infusion Hematology Oncology at [address] [phone] documented as of this encounter Visit Diagnoses Not on filedocumented in this encounter Care Teams Spotter Relationship Specialty Start Date End Date Taylor Bryant APRN [address] [place] [address] PCP - General 03/31/10 documented as of this encounter
--- OUTSIDE RECORDS SUMMARY | 2024-04-02 13:59 | XMS_ITS | Encounter Summary ---
Author Organization [facility] [place] [address] Care Team Providers Care Railcar Switchman Name Role Phone Taylor Bryant APRN Primary Care Provider [phone] [phone] Encounter Details Date Type Department Care Team ([facility] st Contact Info) Description 12/12/2023 Telephone Hematology [place] [phone] Gianna Sanabria RN Social History Tobacco Use Types Packs/Day Years Used Date Smoking Tobacco: Former Smokeless Tobacco: Never Comments:quit at age 35 Alcohol Use Standard Drinks/Week Comments Yes 0 (1 standard drink = 0.6 oz pur e alcohol) social gatherings [facility] Utilities Answer Date Recorded In the past [...] Visit (TeleHealth) Hematology [place] [address] Jean-Pierre Peña MD [facility] [address] HEMATOLOGY [place] [address] 04/13/2024 2:30 PM EST Infusion Hematology Oncology at [address] [phone] 04/30/2024 12:15 PM EST Laboratory Appointment Lab at [facility] [place]ology Oncology [address] [place] [phone] 04/30/2024 1:15 PM EST Office Visit Hematology [place] [address] Jean-Pierre Peña MD [facility] [address] HEMATOLOGY [place] [address] Vicky Burnham APRN [facility] [place] [address] 04/30/2024 2:30 PM EST Appointment Hematology [place] [address] 05/22/2024 9:15 AM EST Laboratory Appointment Lab at [facility] Hematology Oncology [address] [place] [phone] 05/22/2024 10:[address] [place] [address] Jean-Pierre Peña MD [facility] HEMATOLOGY [place] [address] 05/22/2024 11:30 AM EST Office Visit Dermatology at [facility] [address] [place] [phone] Inderjit Vilchis MD [facility] G[facility]ERT[facility] [place] [address] 05/22/2024 2:00 PM EST Office Visit Hematology [place] [address] Jean-Pierre Peña MD [facility] [address] HEMATOLOGY [place] [address] 05/22/2024 3:30 PM EST Appointment Hematology [place] [address] 06/11/2024 4:15 PM EST TH Visit (TeleHealth) Hematology [place] [address] Jean-Pierre Peña MD [facility] [address] HEMATOLOGY [place] [address] 06/12/2024 8:30 AM EST Infusion Hematology Oncology at [address] [phone] documented as of this encounter Visit Diagnoses Not on filedocumented in this encounter Care Teams Railcar Switchman Relationship Specialty Start Date End Date Taylor Bryant APRN [address] [place] [address] PCP - General 03/31/10 documented as of this encounter
--- OUTSIDE RECORDS SUMMARY | 2024-04-02 13:59 | XMS_ITS | Encounter Summary ---
Author Organization [facility] Address [facility] [place] [address] Care Team Providers Care Fiber Product Cutting Machine Operator Name Role Phone Taylor Bryant APRN Primary Care Provider [phone] [phone] Encounter Details Date Type Department Care Team [...] TH Visit (TeleHealth) [place]emat[place] [address] Jean-Pierre Peña MD [facility] [place] [address] 04/13/2024 2:30 PM EST Infusion Hematology Oncology at [address] [phone] 04/30/2024 12:15 PM EST Laboratory Appointment Lab at [facility] Hematology Oncology [address] [place] [phone] 04/30/2024 1:15 PM EST Office Visit [place]ematology [place] [phone] Jean-Pierre Peña MD [facility] [place]OLOG[place] [address] Vicky Burnham, BORDER MACHINE OPERATOR [facility] [place] [address] 04/30/2024 2:30 PM EST Appointment Hematology [place] [address] 05/22/2024 9:15 AM EST Laboratory Appointment Lab at [facility] Hematology Oncology [address] [place] [phone] 05/22/2024 10:[address] Scan at [place] [phone] Jean-Pierre Peña MD [facility] DR [place] [address] 05/22/2024 11:30 AM EST Office Visit Dermatology at [address] [phone] Inderjit Vilchis MD [facility] DR GIL[facility]ERT[facility] [place] [address] 05/22/2024 2:00 PM EST Office Visit [place]ematology [place] [address] Jean-Pierre Peña MD [facility] [place] [address] 05/22/2024 3:30 PM EST Appointment Hematology [place] [address] 06/11/2024 4:15 PM EST TH Visit (TeleHealth) [place] [address] Jean-Pierre Peña MD [facility] [place] [address] 06/12/2024 8:30 AM EST Infusion Hematology Oncology at [address] [phone] documented as of this encounter Visit Diagnoses Not on filedocumented in this encounter Care Teams Fiber Product Cutting Machine Operator Relationship Specialty Start Date End Date Taylor Bryant APRN [address] [place] [address] PCP - General 03/31/10 documented as of this encounter
--- OUTSIDE RECORDS SUMMARY | 2024-04-02 13:59 | XMS_ITS | Encounter Summary ---
Author Organization [facility] Address [facility] [place] [address] Care Team Providers Care Exchange Engineer Name Role Phone Taylor Bryant APRN Primary Care Provider [phone] [phone] Encounter Details Date Type Department Care Team ([facility] st Contact Info) Description 01/05/2024 Interpretation Only [address] [phone] Talyor Bryant APRN [address] [place], [place] [id number] Social History Tobacco Use Types Packs/Day Years [...] TH Visit (TeleHealth) [place] [address] Jean-Pierre Peña MD [facility] [place]ATOLOGY [place] [address] 04/13/2024 2:30 PM EST Infusion Hematology Oncology at [address] [phone] 04/30/2024 12:15 PM EST Laboratory Appointment Lab at [facility] Hematology Oncology [address] [place] [phone] 04/30/2024 1:15 PM EST Office Visit [place]ematology [place] [address] Jean-Pierre Peña MD [facility] H[place]ATOLOGY [place] [address] Vicky Burnham APRN [facility] [place] [address] 04/30/2024 2:30 PM EST Appointment Hematology and Oncology at [place] [phone] 05/22/2024 9:15 AM EST Laboratory Appointment Lab at [facility] Hematology Oncology [address] [place] [phone] 05/22/2024 10:[address] Scan at [place] [phone] Jean-Pierre Peña MD [facility] DR HEMATOLOGY [place] [address] 05/22/2024 11:30 AM EST Office Visit Dermatology at [address] [phone] Inderjit Vilchis MD [facility] DR GILBERTO [place] [address] 05/22/2024 2:00 PM EST Office Visit [place]ematology [place] [address] Jean-Pierre Peña MD [facility] HEMATOLOGY [place] [address] 05/22/2024 3:30 PM EST Appointment Hematology [place] [phone] 06/11/2024 4:15 PM EST TH Visit (TeleHealth) [place] [address] Jean-Pierre Peña MD [facility] [place] [address] 06/12/2024 8:30 AM EST Infusion Hematology Oncology at [address] [phone] documented as of this encounter Procedures Procedure Name Priority Date/Time Associated Diagnosis Comments MAMMO SCREENING CAD BILATERAL (CH) Routine 01/05/2024 10:03 AM EDT documented in this encounter Results * MAMMO SCREENING CAD BILATERAL (CH) (01/05/2024 10:03 AM EDT) PT CLASS O DH RAD ADMITDTTM [id number] DH RAD PT RAD INFO [id number]^Bristo l^Taylor RAD EXAM DESC MADDSCCH^MG Mammo Digital [...] who have questions please contact the health congregational care pastor that requested your imaging first. ? Electronically signed by: Killian Herman MD, [facility] ([phone]), at 01/05/2024 2:[address] ??[address] Narrative 01/05/2024 2:18 PM EDT EXAMINATION: MG [...] patients who have questions please contactthe health congregational care pastor that requested [place] [address] Taylor Bryant APRN PACS IMAGES documented in this encounter Visit Diagnoses Not on filedocumented in this encounter Care Teams Exchange Engineer Relationship Specialty Start Date End Date Taylor Bryant APRN [address] [place] [address] PCP - General 03/31/10 documented as of this encounter
--- OUTSIDE RECORDS SUMMARY | 2024-04-02 13:59 | XMS_ITS | Encounter Summary ---
Author Organization [facility] Address [facility] [place] [address] Care Team Providers Care Marketing Communications Specialist Name Role Phone Taylor Bryant APRN Primary Care Provider [phone] Encounter Details Date Type Department Care Team ([facility] st Contact Info) Description 01/25/2024 Orders Only Hematology [place] [address] Jean-Pierre Peña MD [facility] DR [place] [address] Social History Tobacco Use Types Packs/Day Years Used Date Smoking Tobacco: Former Smokeless Tobacco: Never Comments:quit at age 35 Alcohol Use Standard Drinks/Week Comments Yes 0 (1 standard drink = 0.6 oz pur e alcohol) social gatherings [place] Utilities Answer Date Recorded In the past [...] TH Visit (TeleHealth) Hematology [place] [address] Jean-Pierre Peña MD [facility] DR [place] [address] 04/13/2024 2:30 PM EST Infusion Hematology Oncology at [address] [phone] 04/30/2024 12:15 PM EST Laboratory Appointment Lab [place] [facility] [place] [address] [place] [phone] 04/30/2024 1:15 PM EST Office Visit Hematology [place] [address] Jean-Pierre Peña MD [facility] DR [place] [address] Vicky Burnham APRN [facility] [place] [address] 04/30/2024 2:30 PM EST Appointment Hematology and Oncology at [place] [phone] 05/22/2024 9:15 AM EST Laboratory Appointment Lab [place] [facility] [place] [address] [phone] 05/22/2024 10:[address] Scan at [place] [phone] Jean-Pierre Peña MD [facility] DR HEMATOLOG[place] [address] 05/22/2024 11:30 AM EST Office Visit Dermatology at [address] [phone] Inderjit Vilchis MD [facility] DR GILBERTO [place] [address] 05/22/2024 2:00 PM EST Office Visit Hematology and Oncology at [place] [phone] Jean-Pierre Peña MD [facility] [place] [address] 05/22/2024 3:30 PM EST Appointment Hematology [place] [phone] 06/11/2024 4:15 PM EST TH Visit (TeleHealth) Hematology and Oncology at [place] [phone] Jean-Pierre Peña MD [facility] DR HEMATOLOGY [place] [address] 06/12/2024 8:30 AM EST Infusion Hematology Oncology at [address] [phone] documented as of this encounter Visit Diagnoses Not on filedocumented in this encounter Care Teams Marketing Communications Specialist Relationship Specialty Start Date End Date Taylor Bryant APRN [address] [place] [address] PCP - General 03/31/10 documented as of this encounter
--- OUTSIDE RECORDS SUMMARY | 2024-04-02 13:59 | XMS_ITS | Encounter Summary ---
Author Organization [facility] Address [facility] [place] [address] Care Team Providers Care Produce Specialist Name Role Phone Taylor Bryant APRN Primary Care Provider [phone] Encounter Details Date Type Department Care Team ([facility] st Contact Info) Description 12/20/2023 2:15 PM EDT Office Visit Dermatology at [facility] [address] [place] [address] Inderjit Argueta MD [facility] DR GILBERTO [place] [address] History of melanoma; Seborrheic keratosis; Solar lentigo; [...] Recorded In the past 12 months has [employer], gas, oil, or water [employer] threatened to shut off services in your [...] history no 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 I performed the above scribed service and agree with the accuracy of the documentation in this encounter. Reviewed and signed by: INDERJIT ARGUETA MD [facility] documented in this encounter Plan of Treatment Upcoming Encounters Date Type Department Care Team (Late st Contact Info) Description 04/09/2024 4:15 PM EST TH Visit (TeleHealth) [place]ematology [place] [address] Jean-Pierre Peña MD [facility] DR HEMATOLOGY [place] [address] 04/13/2024 2:30 PM EST Infusion Hematology Oncology at [address] [phone] 04/30/2024 12:15 PM EST Laboratory Appointment Lab at [facility] Hematology Oncology [address] [place] [phone] 04/30/2024 1:15 PM EST Office Visit [place]ematology [place] [address] Jean-Pierre Peña MD [facility] DR HEMATOLOGY [place] [address] Vicky Burnham APRN [facility] DR [place] [address] 04/30/2024 2:30 PM EST Appointment Hematology [place] [address] 05/22/2024 9:15 AM EST Laboratory Appointment Lab at [facility] Hematology [address] [phone] 05/22/2024 10:[address] [place] [place] [address] Jean-Pierre Peña MD [facility] DR HEMATOLOGY [place] [address] 05/22/2024 11:30 AM EST Office Visit Dermatology at [address] [phone] Inderjit Argueta MD [facility] DR GILBERTO [place] [address] 05/22/2024 2:00 PM EST Office Visit Hematology [place] [address] Jean-Pierre Peña MD [facility] HEMATOLOGY [place] [address] 05/22/2024 3:30 PM EST Appointment Hematology [place] [address] 06/11/2024 4:15 PM EST TH Visit (TeleHealth) [place]ematology [place] [address] Jean-Pierre Peña MD [facility] DR HEMATOLOGY [place] [address] 06/12/2024 8:30 AM EST Infusion Hematology Oncology at [address] [phone] documented as of this encounter Visit Diagnoses Diagnosis History of melanoma Personal history of malignant melanoma of skin Seborrheic keratosis Other seborrheic keratosis Solar lentigo Other dyschromia Multiple benign melanocytic nevi of both upper extremities, both lower extremities, and trunk [place] angioma Nevus, non-neoplastic Hair loss Alopecia, unspecified Healing wound documented in this encounter Care Teams Produce Specialist Relationship Specialty Start Date End Date Taylor Bryant APRN [address] [place] [address] PCP - General 03/31/10 documented as of this encounter
--- OUTSIDE RECORDS SUMMARY | 2024-04-02 13:59 | XMS_ITS | Encounter Summary ---
Author Organization [facility] Address [facility] [place] [address] Care Team Providers Care Feed House Supervisor Name Role Phone Taylor Bryant ZARA Primary Care Provider [phone] Reason for Referral * Consultation (Routine) - Closed Specialty Diagnoses / Procedures Referred By Crista padron Referred To Contact Wound Care Diagnoses Malignant melanoma of scalp Norm Joy PA [facility] [place] [address] [facility] [place] [address] Referral ID Status Reason Start Date Expiration Date V isits Requested Visits Authorized [id number] Closed Consult, Test & Treat 12/22/2023 12/21/2024 1 1 Reason for Visit * Reason Comments Follow-up Skin graft taking a long time to heal Encounter Details Date Type Department Care Team (Late st Contact Info) Description 12/22/2023 10:00 AM EDT Office [place] [phone] Justa Preciado MD [facility] [place] [address] Malignant melanoma of scalp Social History Tobacco Use Types Packs/Day Years Used Date Smoking Tobacco: Former Smokeless Tobacco: Never Comments:quit at age 35 Alcohol Use Standard Drinks/Week Comments Yes 0 (1 standard drink = 0.6 oz pur e alcohol) social gatherings [facility] Utilities Answer Date Recorded In [...] Joy PA - 12/22/2023 10:00 AM EDT [facility] OTOLARYNGOLOGY FOLLOW UP NOTE Keeley Gutierrez is [...] of Lymph Nodes Examined: 6 Number of Parthenon Nodes Examined: 0 Pathologic Stage Classification (pTNM, [...] in Ms. Gutierrez's care. Norm Joy PA-C [place], [place] [address] Office 12/21/2023 ENT ATTENDING STAFF NOTE: I [...] TH Visit (TeleHealth) [place] [address] Jean-Pierre Peña MD [facility] DR [place] [address] 04/13/2024 2:30 PM EST Infusion Hematology Oncology at [address] [phone] 04/30/2024 12:15 PM EST Laboratory Appointment Lab at [facility] Hematology Oncology [address] [place] [phone] 04/30/2024 1:15 PM EST Office Visit [place]ematology [place] [address] Jean-Pierre Peña MD [facility] DR HEM[place] [address] Vicky Burnham APRN [facility] [place] [address] 04/30/2024 2:30 PM EST Appointment Hematology [place] [address] 05/22/2024 9:15 AM EST Laboratory Appointment Lab at [facility] Hematology Oncology [address] [place] [phone] 05/22/2024 10:[address] [place] [place] [address] Jean-Pierre Peña MD [facility] DR [place] [address] 05/22/2024 11:30 AM EST Office Visit Dermatology at [facility] [address] [place] [address] Inderjit Vilchis MD [facility] DR GILBERTO [place] [address] 05/22/2024 2:00 PM EST Office Visit [place]ematology [place] [address] Jean-Pierre Peña MD [facility] DR [place] [address] 05/22/2024 3:30 PM EST Appointment Hematology [place] [address] 06/11/2024 4:15 PM EST TH Visit (TeleHealth) [place] [address] Jean-Pierre Peña MD [facility] DR [place] [address] 06/12/2024 8:30 AM EST Infusion Hematology Oncology at [address] [phone] Scheduled Referrals Name Type Priority Associated Diagnoses Orde r Schedule Referral to Wound Clinic Outpatient Referral Routine Malignant melanoma of scalp Ordered: 12/22/2023 documented as of this encounter Visit Diagnoses Diagnosis 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
--- OUTSIDE RECORDS SUMMARY | 2024-04-02 13:59 | XMS_ITS | Encounter Summary ---
Author Organization [facility] [place] [address] Care Team Providers Care Floor Runner Name Role Phone Taylor Bryant APRN Primary Care Provider [phone] Encounter Details Date Type Department Care Team ([facility] st Contact Info) Description 12/15/2023 Telephone Hematology [place] [phone] Cheryl Daley RN Social History Tobacco Use Types Packs/Day Years Used Date Smoking Tobacco: Former Smokeless Tobacco: Never Comments:quit at age 35 Alcohol Use Standard Drinks/Week Comments Yes 0 (1 standard drink = 0.6 oz pur e alcohol) social gatherings [facility] Utilities Answer Date Recorded In [...] 12/15/2023 2:12 PM EDT Message received from nursing secretary: Keeley called, she is asking if a colonoscopy would be necessaryif she is getting CT scans every four months. Her primary wants her to have this done. She can be reached at [phone] Request for clarification sent to Dr. Peña. Message received from Dr. Peña: Yes, CT is not suffice Message sent to patient via [employer] to let her know colonoscopy is still recommended. Message received from patient via [employer]: What about mammograms Message received from Dr. Peña: She needs mammograms as indicated. Message sent to patient via [employer] to let her know she should still have mammograms. documented in this encounter Plan of Treatment Upcoming Encounters Date Type Department Care Team (Late st Contact Info) Description 04/09/2024 4:15 PM EST TH Visit (TeleHealth) [place] [address] Jean-Pierre Peña MD [facility] DR H[place] [address] 04/13/2024 2:30 PM EST Infusion Hematology Oncology at [address] [phone] 04/30/2024 12:15 PM EST Laboratory Appointment Lab at [facility] Hematology Oncology [address] [place] [phone] 04/30/2024 1:15 PM EST Office Visit Hematology [place] [address] Jean-Pierre Peña MD [facility] DR [place] [address] Vicky Burnham APRN [facility] [place] [address] 04/30/2024 2:30 PM EST Appointment Hematology [place] [address] 05/22/2024 9:15 AM EST Laboratory Appointment Lab at [facility] Hematology Oncology [address] [place] [phone] 05/22/2024 10:[address] [place] [place] [address] Jean-Pierre Peña MD [facility] DR HEMAT[place]Y [place] [address] 05/22/2024 11:30 AM EST Office Visit Dermatology at [facility] [address] [place] [phone] Inderjit Vilchis MD [facility] DR GILBERTO [place] [address] 05/22/2024 2:00 PM EST Office Visit [place]ematology [place] [address] Jean-Pierre Peña MD [facility] DR HEM[place] [address] 05/22/2024 3:30 PM EST Appointment Hematology [place] [address] 06/11/2024 4:15 PM EST TH Visit (TeleHealth) [place] [address] Jean-Pierre Peña MD [facility] DR [place] [address] 06/12/2024 8:30 AM EST Infusion Hematology Oncology at [address] [phone] documented as of this encounter Visit Diagnoses Not on filedocumented in this encounter Care Teams Floor Runner Relationship Specialty Start Date End Date Taylor Bryant APRN [address] [place] [address] PCP - General 03/31/10 documented as of this encounter
--- OUTSIDE RECORDS SUMMARY | 2024-04-02 13:59 | XMS_ITS | Encounter Summary ---
Author Organization [facility] Address [facility] [place] [address] Care Team Providers Care Physician President Name Role Phone Taylor Bryant APRN Primary Care Provider [phone] Encounter Details Date Type Department Care Team (Latest Contact Info) Description 02/06/2024 9:24 AM EDT - 02/06/2024 11:59 PM EDT Hospital Encounter Hematology and Oncology at [facility] [place] [phone] Medication management; Malignant melanoma of scalp; Malignant [...] TH Visit (TeleHealth) Hematology [place] [address] Jean-Pierre Peña MD [facility] DR [place] [address] 04/13/2024 2:30 PM EST Infusion Hematology Oncology at [address] [address] 04/30/2024 12:15 PM EST Laboratory Appointment Lab at [facility] Hematology Oncology [address] [place] [phone] 04/30/2024 1:15 PM EST Office Visit Hematology [place] [address] Jean-Pierre Peña MD [facility] DR [place] [address] Vicky Burnham APRN [facility] [place] [address] 04/30/2024 2:30 PM EST Appointment Hematology [place] [address] 05/22/2024 9:15 AM EST Laboratory Appointment Lab at [facility] Hematology Oncology [address] [place] [phone] 05/22/2024 10:[address] [place] [address] Jean-Pierre Peña MD [facility] DR [place] [address] 05/22/2024 11:30 AM EST Office Visit Dermatology at [facility] [address] [place] [address] Inderjit Vilchis MD [facility] DR GILBERTO [place] [address] 05/22/2024 2:00 PM EST Office Visit Hematology [place] [address] Jean-Pierre Peña MD [facility] DR [place] [address] 05/22/2024 3:30 PM EST Appointment Hematology [place] [address] 06/11/2024 4:15 PM EST TH Visit (TeleHealth) Hematology [place] [address] Jean-Pierre Peña MD [facility] DR [place] [address] 06/12/2024 8:30 AM EST Infusion Hematology Oncology at [address] [phone] documented as of this encounter Procedures Procedure [...] clinical context. Jean-Pierre Peña MD CHEMISTRY ORDERABLES [facility] [place] [address] * Lactate Dehydrogenase (02/06/2024 9:30 AM EDT) Lactate Dehydrogenase 163 110 - 220 unit/L 02/06/2024 10:45 AM EDT [facility] Blood VENOUS BLOOD SPECIMEN / Unknown Venipuncture / Unknown 02/06/2024 9:30 AM EDT 02/06/2024 9:30 AM EDT Jean-Pierre Peña MD CHEMISTRY ORDERABLES [facility] [place] [address] * T4, free (02/06/2024 9:30 AM EDT) [...] Peña MD CHEMISTRY ORDERABLES Performing Organization Address [facility] Co de Phone Number [facility] [place] [address] * TSH (02/06/2024 9:30 AM EDT) [facility] Thyroid Stimulating Hormone 0.67 0.27 - 4.20 mcIU/mL 02/06/2024 10:45 AM EDT [facility] Comment: Reference Interval (mcIU/mL): ?? Females: ? First Trimester: 0.23-3.88 ? Second Trimester: 0.22-3.90 ? Third Trimester: 0.44-4.66 Blood VENOUS BLOOD SPECIMEN / Unknown Venipuncture / Unknown 02/06/2024 9:30 AM EDT 02/06/2024 9:30 AM EDT Jean-Pierre Peña MD CHEMISTRY ORDERABLES Performing Organization Address [facility] Co de Phone Number [facility] [place] [address] * (ABNORMAL) Comprehensive metabolic panel (02/06/2024 9:30 AM EDT) [facility] Glucose 89 65 - 199 mg/dL 02/06/2024 10:45 AM EDT [facility] Comment:Glucose Concentratio n >=200 mg/dL plus symptoms is consistent with Diabetes Mellitus. Blood Urea Nitrogen 18 8 - 18 mg/dL 02/06/2024 10:45 AM [facility] Creatinine 0.95 0.70 - 1.20 mg/dL 02/06/2024 10:45 AM [facility] Sodium 144 135 - 145 mMol/L 02/06/2024 10:45 AM [facility] Potassium 3.7 3.5 - 5.0 mMol/L 02/06/2024 10:45 AM [facility] Chloride 109(H) 98 - 107 mMol/L 02/06/2024 10:45 AM [facility] Carbon Dioxide 24 22 - 31 mMol/L 02/06/2024 10:45 AM [facility] Anion Gap 11 5 - 15 mMol/L 02/06/2024 10:45 AM [facility] Calcium 9.2 8.5 - 10.5 mg/dL 02/06/2024 10:45 AM [facility] Protein, Total 6.5 6.1 - 8.0 g/dL 02/06/2024 10:45 AM [facility] Albumin 4.1 3.2 - 5.2 g/dL 02/06/2024 10:45 AM [facility] Aspartate Aminotransferase 12 <=30 unit/L 02/06/2024 10:45 AM [facility] Alanine Aminotransferase 11 0 - 30 unit/L 02/06/2024 10:45 AM [facility] Alkaline Phosphatase 56 35 - 105 unit/L 02/06/2024 10:45 AM [facility] Bilirubin, Total 0.6 <=1.3 mg/dL 02/06/2024 10:45 AM [facility] Est Glomerular Filtration Rate - Female 70 mL/min/1. 73 m?? 02/06/2024 10:45 AM [facility] Comment: This patient's estimated [...] MD CHEMISTRY ORDERABLES [facility] [place] [address] * (ABNORMAL) CBC (with Diff) (02/06/2024 9:30 AM EDT) White Blood Cell 6.78 4.00 - 9.50 x10(3)/mc L 02/06/2024 10:21 AM EDT [facility] Red Blood Cell 3.93(L) 4.00 - 5.21 x10(6)/mc L 02/06/2024 10:21 AM [facility] Hemoglobin 12.1 11.7 - 15.5 g/dL 02/06[facility]2024 [facility] Hematocrit 36.2 35.7 - 45.8 % 02/06/2024 10[facility] Mean Cell Volume 92.1 82.6 - 94.4 fL 02/06/2024 10:[facility] Mean Cell Hemoglobin 30.8 27.1 - 32.0 pg 02/06/2024 10:21 AM [facility] Mean Cell Hemoglobin Concentration 33.4 31.7 - 35.0 g/dL 02/06/2024 10:21 AM [facility] Platelet 321 145 - 357 x10(3)/mc L 02/06/2024 10:21 AM [facility] Mean Platelet Volume 11.1 7.6 - 12.9 fL 02/06/2024 10:21 AM [facility] RDW Standard Deviation 48.3(H) 37.0 - 46.0 fL 02/06/2024 10:21 AM [facility] RDW coefficient of variation 14.3(H) 11.5 - 14.1 % 02/06/2024 10:21 AM [facility] NRBC% auto 0.0 % 02/06/2024 10:21 AM [facility] NRBC Absolute <0.01 <0.01 x10(3)/mc L 02/06/2024 10:21 AM [facility] Neutrophil % 59.4 % 02/06/2024 10:21 AM [facility] Neutrophil Absolute (ANC) - Automated 4.03 1.70 - 6.10 x10(3)/mc L 02/06/2024 10:21 AM [facility] Lymph % 24.5 % 02/06/2024 10:21 AM [facility] Lymph Absolute 1.66 0.90 - 3.20 x10(3)/mc L 02/06/2024 10:21 AM [facility] Monocyte % 10.8 % 02/06/2024 10:21 AM [facility] Monocyte Absolute 0.73 0.30 - 0.90 x10(3)/mc L 02/06/2024 10:21 AM [facility] Eos % 4.3 % 02/06/2024 10:21 AM [facility] Eos Absolute 0.29 0.00 - 0.40 x10(3)/mc L 02/06/2024 10:21 AM EDT [facility] Basophil % 0.9 % 02/06/2024 10:21 AM EDT [facility] Baso Absolute 0.06 0.00 - 0.10 x10(3)/mc L 02/06/2024 10:21 AM EDT [facility] Immature Gran % 0.1 % 10:21 AM EDT [facility] Immature Gran Absolute <0.04 0.00 - 0.04 x10(3)/mc L 02/06/2024 10:21 AM EDT [facility] Blood VENOUS BLOOD SPECIMEN / Unknown Venipuncture / Unknown 02/06/2024 9:30 AM EDT 02/06/2024 9:30 AM EDT Jean-Pierre Peña MD HEMATOLOGY ORDERABLE S [facility] [place] [address] documented in this encounter Visit Diagnoses Diagnosis Medication management Encounter for long-term (current) use of other medications 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
--- OUTSIDE RECORDS SUMMARY | 2024-04-02 13:59 | XMS_ITS | Encounter Summary ---
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, unspecified lymph node region Procedures [id number] pembrolizumab (Keytruda) Jean-Pierre Peña MD [facility] [address] [place] [address] Jean-Pierre Peña MD [facility] [address] [place] [address] Referral ID Status Reason Start Date Expiration Date V isits Requested Visits Authorized [id number] Authorized 07/25/2023 07/24/2024 99 99 Encounter Details Date Type Department Care Team (Latest Contact Info) Description 12/26/2023 11:27 AM EDT Hospital Encounter [place] [address] Medication management; Malignant melanoma of scalp; Malignant [...] Recorded In the past 12 months has [employer], gas, oil, or water company threatened to [...] 350 mg Capsule Take by mouth. 02/11/2024 predniSONE (Deltasone) 10 mg tablet Take 2 tablets by mouth daily for 30 days. Please take 2 tablets once a day for a week; then 1 tablet daily for seven days. 60 tablet 11/29/2023 12/29/2023 documented as of this encounter Progress Notes [...] clinic hours (8am-5pm Tuesday-Tuesday): pt. can call [phone] with questions or concerns. After clinic hours (5pm-8am Tuesday-Tuesday and weekends) pt can call [phone] and ask for the herbicide sprayer/oncologist system consultant. Keeley verbalized understanding of potential chemotherapy side [...] TH Visit (TeleHealth) [place] [address] Jean-Pierre Peña MD [facility] [address] [place] [address] 04/13/2024 2:30 PM EST Infusion Hematology Oncology at [address] [phone] 04/30/2024 12:15 PM EST Laboratory Appointment Lab at [facility] Hematology Oncology [address] [place] [phone] 04/30/2024 1:15 PM EST Office Visit [place]ematology [place] [address] Jean-Pierre Peña MD [facility] DR [place] [address] Vicky Burnham APRN [facility] [place] [address] 04/30/2024 2:30 PM EST Appointment [place]ematology [place] [address] 05/22/2024 9:15 AM EST Laboratory Appointment Lab at [facility] Hematology Oncology [address] [place] [phone] 05/22/2024 10:[address] [place] [place] [address] Jean-Pierre Peña MD [facility] DR [place] [address] 05/22/2024 11:30 AM EST Office Visit Dermatology at [facility] [address] [place] [address] Inderjit Vilchis MD [facility] DR GILBERTO [place] [address] 05/22/2024 2:00 PM EST Office Visit [place]ematology [place] [address] Jean-Pierre Peña MD [facility] [place] [address] 05/22/2024 3:30 PM EST Appointment Hematology [place] [address] 06/11/2024 4:15 PM EST TH Visit (TeleHealth) [place] [address] Jean-Pierre Peña MD [facility] [place] [address] 06/12/2024 8:30 AM EST Infusion Hematology Oncology at [address] [phone] documented as of this encounter Results * Lactate Dehydrogenase (12/26/2023 11:36 AM EDT) Lactate Dehydrogenase 171 110 - 220 unit/L 12/26/2023 12:19 PM EDT [facility] Blood VENOUS BLOOD SPECIMEN / Unknown Venipuncture / Unknown 12/26/2023 11:36 AM EDT 12/26/2023 11:36 AM EDT Jean-Pierre Peña MD CHEMISTRY ORDERABLES Performing Organization Address City/[facility]/ZIP Co de Phone Number [facility] [place] [address] * T4, free (12/26/2023 11:36 AM EDT) Free T4 1.10 0.93 - 1.70 ng/dL 12/26/2023 12:19 PM EDT [facility] Comment: Reference Interval (ng/dL): ?? Females: ? First Trimester: 0.97-1.68 ? Second Trimester: 0.77-1.51 ? Third Trimester: 0.77-1.49 Blood VENOUS BLOOD SPECIMEN / Unknown Venipuncture / Unknown 12/26/2023 11:36 AM EDT 12/26/2023 11:36 AM EDT Jean-Pierre Peña MD CHEMISTRY ORDERABLES Performing Organization Address City/[facility]/ZIP Co de Phone Number [facility] [place] [address] * TSH (12/26/2023 11:36 AM EDT) Thyroid Stimulating Hormone 0.85 0.27 - 4.20 mcIU/mL 12/26/2023 12:19 PM EDT [facility] Comment: Reference Interval (mcIU/mL): ?? Females: ? First Trimester: 0.23-3.88 ? Second Trimester: 0.22-3.90 ? Third Trimester: 0.44-4.66 Blood VENOUS BLOOD SPECIMEN / Unknown Venipuncture / Unknown 12/26/2023 11:36 AM EDT 12/26/2023 11:36 AM EDT Jean-Pierre Peña MD CHEMISTRY ORDERABLES [facility] [place] [address] * Comprehensive metabolic panel (12/26/2023 11:36 AM EDT) Glucose 106 65 - 199 mg/dL 12/26/2023 12:19 PM [facility] Comment:Glucose Concentratio n >=200 mg/dL plus symptoms is consistent with Diabetes Mellitus. Blood Urea Nitrogen 16 8 - 18 mg/dL 12/26/2023 12:19 PM [facility] Creatinine 1.00 0.70 - 1.20 mg/dL 12/26/2023 12:19 PM [facility] Sodium 141 135 - 145 mMol/L 12/26/2023 12:19 PM [facility] Potassium 4.1 3.5 - 5.0 mMol/L 12/26/2023 12:19 PM [facility] Chloride 106 98 - 107 mMol/L 12/26/2023 12:19 PM [facility] Carbon Dioxide 23 22 - 31 mMol/L 12/26/2023 12:19 PM [facility] Anion Gap 12 5 - 15 mMol/L 12/26/2023 12:19 PM [facility] Calcium 9.7 8.5 - 10.5 mg/dL 12/26/2023 12:19 PM [facility] Protein, Total 6.7 6.1 - 8.0 g/dL 12/26/2023 12:19 PM [facility] Albumin 4.0 3.2 - 5.2 g/dL 12/26/2023 12:19 PM [facility] Aspartate Aminotransferase 11 <=30 unit/L 12/26/2023 12:19 PM [facility] Alanine Aminotransferase 14 0 - 30 unit/L 12/26/2023 12:19 PM [facility] Alkaline Phosphatase 73 35 - 105 unit/L 12/26/2023 12:19 PM [facility] Bilirubin, Total 0.4 <=1.3 mg/dL 12/26/2023 12:19 PM EDT [facility] Est Glomerular Filtration Rate - Female 65 mL/min/1. 73 m?? 12/26/2023 12:19 PM EDT [facility] Comment: This patient's [...] Fasting Status No 12/26/2023 12:19 PM EDT [facility] Blood VENOUS BLOOD SPECIMEN / Unknown Venipuncture / Unknown 12/26/2023 11:36 AM EDT 12/26/2023 11:36 AM EDT Jean-Pierre Peña MD CHEMISTRY ORDERABLES [facility] [place] [address] * (ABNORMAL) CBC (with Diff) (12/26/2023 11:36 AM EDT) White Blood Cell 7.67 4.00 - 9.50 x10(3)/mc L 12/26/2023 11:53 AM EDT [facility] Red Blood Cell 4.18 4.00 - 5.21 x10(6)/mc L 12/26/2023 11:53 AM EDT [facility] Hemoglobin 12.6 11.7 - 15.5 g/dL 12/26/2023 11:53 AM EDT [facility] Hematocrit 38.7 35.7 - 45.8 % 12/26/2023 11:53 AM EDT [facility] Mean Cell Volume 92.6 82.6 - 94.4 fL 12/26/2023 11:53 AM [facility] Mean Cell Hemoglobin 30.1 27.1 - 32.0 pg 12/26/2023 11:53 AM [facility] Mean Cell Hemoglobin Concentration 32.6 31.7 - 35.0 g/dL 12/26/2023 11:53 AM [facility] Platelet 294 145 - 357 x10(3)/mc L 12/26/2023 11:53 AM [facility] Mean Platelet Volume 10.6 7.6 - 12.9 fL 12/26/2023 11:53 AM [facility] RDW Standard Deviation 48.5(H) 37.0 - 46.0 fL 12/26/2023 11:53 AM [facility] RDW coefficient of variation 14.4(H) 11.5 - 14.1 % 12/26/2023 11:53 AM [facility] NRBC% auto 0.0 % 12/26/2023 11:53 AM [facility] NRBC Absolute 0.00 0.00 - 0.00 x10(3)/mc L 12/26/2023 11:53 AM [facility] Neutrophil % 78.5 % 12/26/2023 11:53 AM [facility] Neutrophil Absolute (ANC) - Automated 6.02 1.70 - 6.10 x10(3)/mc L 12/26/2023 11:53 AM [facility] Lymph % 10.4 % 12/26/2023 11:53 AM [facility] Lymph Absolute 0.80(L) 0.90 - 3.20 x10(3)/mc L 12/26/2023 11:53 AM [facility] Monocyte % 6.8 % 12/26/2023 11:53 AM [facility] Monocyte Absolute 0.52 0.30 - 0.90 x10(3)/mc L 12/26/2023 11:53 AM EDT [facility] Eos % 3.5 % 12/26/2023 11:53 AM EDT [facility] Eos Absolute 0.27 0.00 - 0.40 x10(3)/mc L 12/26/2023 11:53 AM EDT [facility] Basophil % 0.5 % 12/26/2023 11:53 AM EDT [facility] Baso Absolute 0.04 0.00 - 0.10 x10(3)/mc L 12/26/2023 11:53 AM EDT [facility] Immature Gran % 0.3 % 11:53 AM EDT [facility] Immature Gran Absolute 0.02 0.00 - 0.04 x10(3)/mc L 12/26/2023 11:53 AM EDT [facility] Blood VENOUS BLOOD SPECIMEN / Unknown Venipuncture / Unknown 12/26/2023 11:36 AM EDT 12/26/2023 11:36 AM EDT Jean-Pierre Peña MD HEMATOLOGY ORDERABLE S [facility] [place] [address] documented in this encounter Visit Diagnoses Diagnosis [...] mL/hr documented in this encounter Care Teams Tank House Operator Relationship Specialty Start Date End Date Taylor Bryant APRN [address] [place] [address] PCP - General 03/31/10 documented as of this encounter
--- OUTSIDE RECORDS SUMMARY | 2024-04-02 13:59 | XMS_ITS | Encounter Summary ---
Author Organization [facility] Address [facility] [place] [address] Care Team Providers Care Optical Mechanic Apprentice Name Role Phone Taylor Bryant APRN Primary Care Provider [phone] Encounter Details Date Type Department Care Team (Latest Contact Info) Description 12/26/2023 Travel Social History Tobacco Use Types Packs/Day Years Used Date Smoking Tobacco: Former Smokeless Tobacco: Never Comments:quit at age 35 Alcohol Use Standard Drinks/Week Comments Yes 0 (1 standard drink = 0.6 oz pur e alcohol) social gatherings [facility] Utilities Answer Date Recorded In the past [...] TH Visit (TeleHealth) [place] [address] Jean-Pierre Peña MD [facility] [place] [address] 04/13/2024 2:30 PM EST Infusion Hematology Oncology at [address] [address] 04/30/2024 12:15 PM EST Laboratory Appointment Lab at [facility] Hematology Oncology [address] [place] [phone] 04/30/2024 1:15 PM EST Office Visit Hematology [place] [phone] Jean-Pierre Peña MD [facility] [place] [address] Vicky Burnham, CHOCOLATE REFINING ROLLER [facility] [place] [address] 04/30/2024 2:30 PM EST Appointment Hematology [place] [address] 05/22/2024 9:15 AM EST Laboratory Appointment Lab at [facility] Hematology Oncology [address] [place] [phone] 05/22/2024 10:[address] Scan at [place] [phone] Jean-Pierre Peña MD [facility] DR [place] [address] 05/22/2024 11:30 AM EST Office Visit Dermatology at [address] [phone] Inderjit Vilchis MD [facility] DR [facility]ERT[place] [address] 05/22/2024 2:00 PM EST Office Visit [place]ematology [place] [address] Jean-Pierre Peña MD [facility] [place] [address] 05/22/2024 3:30 PM EST Appointment Hematology [place] [address] 06/11/2024 4:15 PM EST TH Visit (TeleHealth) [place] [address] Jean-Pierre Peña MD [facility] [place] [address] 06/12/2024 8:30 AM EST Infusion Hematology Oncology at [address] [phone] documented as of this encounter Visit Diagnoses Not on filedocumented in this encounter Care Teams Optical Mechanic Apprentice Relationship Specialty Start Date End Date Taylor Bryant APRN [address] [place] [address] PCP - General 03/31/10 documented as of this encounter
--- OUTSIDE RECORDS SUMMARY | 2024-04-02 13:59 | XMS_ITS | Encounter Summary ---
Author Organization [facility] Address [facility] [place] [address] Care Team Providers Care Railway Engineer Name Role Phone Taylor Bryant APRN Primary Care Provider [phone] Encounter Details Date Type Department Care Team (Latest Contact Info) Description 12/26/2023 11:28 AM EDT - 12/26/2023 11:59 PM EDT Hospital Encounter Hematology and Oncology at [facility] [place] [phone] Medication management; Malignant melanoma of scalp; Malignant [...] 11/29/2023 12/29/2023 documented as of this encounter Plan of Treatment Upcoming Encounters Date Type Department Care Team (Late st Contact Info) Description 04/09/2024 4:15 PM EST TH Visit (TeleHealth) [place] [address] Jean-Pierre Peña MD [facility] [address] [place] [address] 04/13/2024 2:30 PM EST Infusion Hematology Oncology at [address] [phone] 04/30/2024 12:15 PM EST Laboratory Appointment Lab at [facility] [place]ematology Oncology [address] [place] [phone] 04/30/2024 1:15 PM EST Office Visit [place] [address] Jean-Pierre Peña MD [facility] DR [place] [address] Vicky Burnham APRN [facility] [place] [address] 04/30/2024 2:30 PM EST Appointment [place] [address] 05/22/2024 9:15 AM EST Laboratory Appointment Lab at [facility] [place]ematology Oncology [address] [place] [phone] 05/22/2024 10:[address] [place] [place] [address] Jean-Pierre Peña MD [facility] DR [place] [address] 05/22/2024 11:30 AM EST Office Visit Dermatology at [facility] [address] [place] [phone] Inderjit Vilchis MD [facility] DR GIL[facility]ERTO [place] [address] 05/22/2024 2:00 PM EST Office Visit Hematology and Oncology at [place] [phone] Jean-Pierre Peña MD [facility] DR [place] [address] 05/22/2024 3:30 PM EST Appointment [place] [phone] 06/11/2024 4:15 PM EST TH Visit (TeleHealth) [place] [phone] Jean-Pierre Peña MD [facility] DR [place] [address] 06/12/2024 8:30 AM EST Infusion Hematology Oncology at [address] [phone] documented as of this encounter [...] - 220 unit/L 12/26/2023 12:[address] [facility] Blood VENOUS BLOOD SPECIMEN / Unknown Venipuncture / Unknown 12/26/2023 11:36 AM EDT 12/26/2023 11:36 AM EDT Jean-Pierre Peña MD CHEMISTRY ORDERABLES Performing Organization Address [facility]/ZIP Co de Phone Number [facility] [place] [address] * T4, free (12/26/2023 11:36 AM EDT) Free T4 1.10 0.93 - 1.70 ng/dL 12/26/2023 12:[address] [facility] Comment: Reference Interval (ng/dL): ?? Females: ? First Trimester: 0.97-1.68 ? Second Trimester: 0.77-1.51 ? Third Trimester: 0.77-1.49 Blood VENOUS BLOOD SPECIMEN / Unknown Venipuncture / Unknown 12/26/2023 11:36 AM EDT 12/26/2023 11:36 AM EDT Jean-Pierre Peña MD CHEMISTRY ORDERABLES Performing Organization Address City/[facility]/ZIP Co de Phone Number [facility] [place] [address] * TSH (12/26/2023 11:36 AM EDT) Thyroid Stimulating Hormone 0.85 0.27 - 4.20 mcIU/mL 12/26/2023 12:[address] [facility] Comment: Reference Interval (mcIU/mL): ?? Females: ? First Trimester: 0.23-3.88 ? Second Trimester: 0.22-3.90 ? Third Trimester: 0.44-4.66 Blood VENOUS BLOOD SPECIMEN / Unknown Venipuncture / Unknown 12/26/2023 11:36 AM EDT 12/26/2023 11:36 AM EDT Jean-Pierre Peña MD CHEMISTRY ORDERABLES [facility] [place] [address] * Comprehensive metabolic panel (12/26/2023 11:36 AM EDT) Glucose 106 65 - 199 mg/dL 12/26/2023 12:[address] [facility] Comment:Glucose Concentratio n >=200 mg/dL plus symptoms is consistent with Diabetes Mellitus. Blood Urea Nitrogen 16 8 - 18 mg/dL 12/26/2023 12:[address] [facility] Creatinine 1.00 0.70 - 1.20 mg/dL 12/26/2023 12:[address] [facility] Sodium 141 135 - 145 mMol/L [facility] Potassium 4.1 3.5 - 5.0 mMol/L 12/26/2023 12:[facility] Chloride 106 98 - 107 mMol/L 12/26/2023 12:[address] [facility] Carbon Dioxide 23 22 - 31 mMol/L 12/26/2023 12[facility] Anion Gap 12 5 - 15 mMol/L 12/26/2023 12:[address] [facility] Calcium 9.7 8.5 - 10.5 mg/dL 12/26/2023 12:[address] [facility] Protein, Total 6.7 6.1 - 8.0 g/dL 12/26/2023 12:[address] [facility] Albumin 4.0 3.2 - 5.2 g/dL 12/26/2023 12:[address] [facility] Aspartate Aminotransferase 11 <=30 unit/L 12/26/2023 12:[address] [facility] Alanine Aminotransferase 14 0 - 30 unit/L 12/26/2023 12:[facility] Alkaline Phosphatase 73 35 - 105 unit/L 12/26/2023 12:[address] [facility] Bilirubin, Total 0.4 <=1.3 mg/dL 12/26/2023 12:19 PM [facility] Est Glomerular Filtration Rate - Female 65 mL/min/1. 73 m?? 12/26/2023 12:19 PM [facility] Comment: This patient's estimated GFR [...] Fasting Status No 12/26/2023 12:[address] [facility] Blood VENOUS BLOOD SPECIMEN / Unknown Venipuncture / Unknown 12/26/2023 11:36 AM EDT 12/26/2023 11:36 AM EDT Jean-Pierre Peña MD CHEMISTRY ORDERABLES [facility] [place] [address] * (ABNORMAL) CBC (with Diff) (12/26/2023 11:36 AM EDT) White Blood Cell 7.67 4.00 - 9.50 x10(3)/mc L 12/26/2023 11:53 AM [facility] Red Blood Cell 4.18 4.00 - 5.21 x10(6)/mc L 12/26/2023 11:53 AM [facility] Hemoglobin 12.6 11.7 - 15.5 g/dL 12/26/2023 11:53 AM [facility] Hematocrit 38.7 35.7 - 45.8 % 12/26/2023 11:53 AM [facility] Mean Cell Volume 92.6 82.6 - 94.4 fL 12/26/2023 11:53 AM [facility] Mean Cell Hemoglobin 30.1 27.1 - 32.0 pg 12/26/2023 11:53 AM [facility] Mean Cell Hemoglobin Concentration 32.6 31.7 - 35.0 g/dL 12/26/2023 11:53 AM [facility] Platelet 294 145 - 357 x10(3)/ L 12/26/2023 11:53 AM [facility] Mean Platelet Volume 10.6 7.6 - 12.9 fL 12/26/2023 11:53 AM [facility] RDW Standard Deviation 48.5(H) 37.0 - 46.0 fL 12/26/2023 11:53 AM [facility] RDW coefficient of variation 14.4(H) 11.5 - 14.1 % 12/26/2023 11:53 AM [facility] NRBC% auto 0.0 % 12/26/2023 11:53 AM [facility] NRBC Absolute 0.00 0.00 - 0.00 x10(3)/mc L 12/26/2023 11:53 AM [facility] Neutrophil % 78.5 % 12/26/2023 11:53 AM [facility] Neutrophil Absolute (ANC) - Automated 6.02 1.70 - 6.10 x10(3)/mc L 12/26/2023 11:[address] [facility] Lymph % 10.4 % 12/26/2023 11:[address] [facility] Lymph Absolute 0.80(L) 0.90 - 3.20 x10(3)/mc L 12/26/2023 11:[address] [facility] Monocyte % 6.8 % 12/26/2023 11:[address] [facility] Monocyte Absolute 0.52 0.30 - 0.90 x10(3)/mc L 12/26/2023 11:[address] [facility] Eos % 3.5 % 12/26/2023 11:[address] [facility] Eos Absolute 0.27 0.00 - 0.40 x10(3)/mc L 12/26/2023 11:[address] [facility] Basophil % 0.5 % 12/26/2023 11:[address] [facility] Baso Absolute 0.04 0.00 - 0.10 x10(3)/mc L 12/26/2023 11:[address] [facility] Immature Gran % 0.3 % 11:[address] [facility] Immature Gran Absolute 0.02 0.00 - 0.04 x10(3)/mc L 12/26/2023 11:[address] [facility] Blood VENOUS BLOOD SPECIMEN / Unknown Venipuncture / Unknown 12/26/2023 11:36 AM EDT 12/26/2023 11:36 AM EDT Jean-Pierre Peña MD HEMATOLOGY ORDERABLE S [facility] [place] [address] documented in this encounter Visit Diagnoses Diagnosis Medication management Encounter for long-term (current) use of other medications 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
--- OUTSIDE RECORDS SUMMARY | 2024-04-02 13:59 | XMS_ITS | Encounter Summary ---
Author Organization [facility] Address [facility] [place] [address] Care Team Providers Care Parts Counter Clerk Name Role Phone Taylor Bryant ZARA Primary Care Provider [phone] Encounter Details Date Type Department Care Team (Latest Contact Info) Description 01/18/2024 11:00 AM EDT TH Visit (TeleHealth) Hematology [place] [phone] Jean-Pierre Peña MD [facility] [address] [place] [address] Malignant melanoma of scalp (Primary Dx); Medication [...] In the past 12 months has e [employer], gas, oil, or water [employer] threatened to shut off services in your [...] note were not included. [facility] NOTE REFERING PHYSICIAN: DIAGNOSIS: Right occipital [...] to next dose of pembrolizumab given in [place]. Clinically she continues to do well. No [...] 9.72) performed by Castro Preciado MD at [facility] MAIN OR PRO BX/REMV, LYMPH NODE, DEEP CERV Right 09/16/2023 BIOPSY OR EXCISION OF LYMPH NODE(S), OPEN, DEEP CERVICAL NODES (WRVU 6.74) performed by Castro Preciado MD at [facility] MAIN OR PRO RADICAL RESECT OF TUMOR, SOFT TISSUE FACE OR SCALP, 2CM OR GREATER Right 09/16/2023 RADICAL RESECTION TUMOR SCALP; >2 CM (WRVU 15.26) performed by Castro Preciado MD at [facility] MAIN OR PRO SPLIT GRFT, HEAD, FAC, HAND, FEET <100SQCM Right 09/28/2023 SPLIT THICKNESS SKIN SPLIT GRAFT,100SQ CM OR LESS, NECK (WRVU 10.15) performed by Castro Preciado MD at [facility] MAIN OR TUBAL LIGATION MEDS: FLUoxetine, ascorbic [...] labs and next the pembrolizumab infusion in [place]. She will receive pembrolizumab infusion every other cycle at [place] from logistical reason. The patient was instructed to call us with any new symptoms or concerns. Jean-Pierre Peña MD RTC on 02/06/2024 as scheduled with labs, CT scan and pembrolizumab documented in this encounter Plan of Treatment Upcoming Encounters Date Type Department Care Team (Late st Contact Info) Description 04/09/2024 4:15 PM EST TH Visit (TeleHealth) Hematology [place] [address] Jean-Pierre Peña MD [facility] DR [place] [address] 04/13/2024 2:30 PM EST Infusion Hematology Oncology at [address] [phone] 04/30/2024 12:15 PM EST Laboratory Appointment Lab at [facility] [place] Oncology [address] [place] [phone] 04/30/2024 1:15 PM EST Office Visit Hematology [place] [address] Jean-Pierre Peña MD [facility] DR [place] [address] Vicky Burnham APRN [facility] [place] [address] 04/30/2024 2:30 PM EST Appointment Hematology [place] [address] 05/22/2024 9:15 AM EST Laboratory Appointment Lab at [facility] Hematology Oncology [address] [place] [phone] 05/22/2024 10:[address] [place] [address] Jean-Pierre Peña MD [facility] DR [place] [address] 05/22/2024 11:30 AM EST Office Visit Dermatology at [place] [address] [place] [address] Inderjit Vilchis MD [facility] [place] [address] 05/22/2024 2:00 PM EST Office Visit Hematology [place] [address] Jean-Pierre Peña MD [facility] DR [place] [address] 05/22/2024 3:30 PM EST Appointment Hematology [place] [address] 06/11/2024 4:15 PM EST TH Visit (TeleHealth) Hematology [place] [address] Jean-Pierre Peña MD [facility] [address] [place] [address] 06/12/2024 8:30 AM EST Infusion Hematology Oncology at [address] [phone] documented as of this encounter Visit Diagnoses Diagnosis Malignant melanoma of scalp- Primary 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
--- OUTSIDE RECORDS SUMMARY | 2024-04-02 13:59 | XMS_ITS | Encounter Summary ---
Author Organization [facility] Address [facility] [place] [address] Care Team Providers Care Chisel Mortiser Operator Name Role Phone Taylor Bryant APRN Primary Care Provider [phone] Encounter Details Date Type Department Care Team ([facility] Contact Info) Description 02/15/2024 8:30 AM EDT Office Visit Dermatology at [address] [place] [address] Kendra De MD [facility] [place] [address] Epidermal inclusion cyst Social History Tobacco Use [...] treatment Melanoma 06/21/23 (biopsy performed at [facility]): Right occipital scalp, melanoma, 4.6 mm, pT4a (s/p excision 09/16/23 and negative SLNB; adjuvant pembrolizumab infusions) Dysplastic nevi No SCC No BCC No AKs No UV Exposure & Protection N Other relevant past medical history + Hair loss (on oral minoxidil) Family History Details Melanoma No NMSC No Other relevant family history No Social History 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 I performed the above scribed service and agree with the accuracy of the documentation in this encounter. Reviewed and signed by: KENDRA DE MD Dermatology [facility] documented in this encounter Plan of Treatment Upcoming Encounters Date Type Department Care Team (Late st Contact Info) Description 04/09/2024 4:15 PM EST TH Visit (TeleHealth) Hematology [place] [address] Jean-Pierre Peña MD [facility] [address] [place] [address] 04/13/2024 2:30 PM EST Infusion Hematology Oncology at [address] [phone] 04/30/2024 12:15 PM EST Laboratory Appointment Lab [place] [facility] [place] [address] [place] [phone] 04/30/2024 1:15 PM EST Office Visit Hematology [place] [address] Jean-Pierre Peña MD [facility] [address] [place] [address] Vicky Burnham APRN [facility] [place] [address] 04/30/2024 2:30 PM EST Appointment Hematology [place] [address] 05/22/2024 9:15 AM EST Laboratory Appointment Lab at [facility] [place] [address] [place] [phone] 05/22/2024 10:[address] [place] [address] Jean-Pierre Peña MD [facility] [address] [place] [address] 05/22/2024 11:30 AM EST Office Visit Dermatology at [address] [place] [phone] Inderjit Vilchis MD [facility] DR GIL[facility] [address] 05/22/2024 2:00 PM EST Office Visit Hematology [place] [address] Jean-Pierre Peña MD [facility] [address] [place] [address] 05/22/2024 3:30 PM EST Appointment Hematology [place] [address] 06/11/2024 4:15 PM EST TH Visit (TeleHealth) Hematology [place] [address] Jean-Pierre Peña MD [facility] [address] [place] [address] 06/12/2024 8:30 AM EST Infusion Hematology Oncology at [address] [phone] documented as of this encounter Visit Diagnoses Diagnosis Epidermal inclusion cyst Sebaceous cyst documented in this encounter Care Teams Chisel Mortiser Operator Relationship Specialty Start Date End Date Taylor Bryant APRN [address] [place] [address] PCP - General 03/31/10 documented as of this encounter
--- OUTSIDE RECORDS SUMMARY | 2024-04-02 13:59 | XMS_ITS | Encounter Summary ---
Author Organization [facility] Address [facility] [place] [address] Care Team Providers Care Hand Presser Name Role Phone Taylor Bryant ZARA Primary Care Provider [phone] Reason for Visit * Reason Comments Follow-up Encounter Details Date Type Department Care Team ([facility] st Contact Info) Description 02/06/2024 12:45 PM EDT Office Visit [place]ematology [place] [address] Jean-Pierre Peña MD [facility] DR [place] [address] Vicky Burnham APRN 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 [facility] NOTE REFERING PHYSICIAN: DIAGNOSIS: Right [...] 9.72) performed by Castro Preciado MD at [facility] MAIN OR PRO BX/REMV, LYMPH NODE, DEEP CERV Right 09/16/2023 BIOPSY OR EXCISION OF LYMPH NODE(S), OPEN, DEEP CERVICAL NODES (WRVU 6.74) performed by Castro Preciado MD at [facility] MAIN OR PRO RADICAL RESECT OF TUMOR, SOFT TISSUE FACE OR SCALP, 2CM OR GREATER Right 09/16/2023 RADICAL RESECTION TUMOR SCALP; >2 CM (WRVU 15.26) performed by Castro Preciado MD at [facility] MAIN OR PRO SPLIT GRFT, HEAD, FAC, HAND, FEET <100SQCM Right 09/28/2023 SPLIT THICKNESS SKIN SPLIT GRAFT,100SQ CM OR LESS, NECK (WRVU 10.15) performed by Castro Preciado MD at [facility] MAIN OR TUBAL LIGATION MEDS: [...] receive pembrolizumab infusion every other cycle at [place] from logistical reason. I will have her come back in 3 weeks with labs and next the pembrolizumab infusion in [place]. We will continue this until June 2024 to complete 1 year of adjuvant treatment. The patient was instructed to call us with any new symptoms or concerns. Jean-Pierre Peña MD RTC in 3 6 9 12 weeks with labs and pembrolizumab Telehealth in 3 and 9 weeks Pembrolizumab will be given at [facility] in 3 and 9 weeks, [place] in 6 and 12 weeks documented in this encounter Plan of Treatment Upcoming Encounters Date Type Department Care Team (Late st Contact Info) Description 04/09/2024 4:15 PM EST TH Visit (TeleHealth) [place] [address] Jean-Pierre Peña MD [facility] [address] [place] [address] 04/13/2024 2:30 PM EST Infusion Hematology Oncology at [address] [phone] 04/30/2024 12:15 PM EST Laboratory Appointment Lab at [facility] Hematology Oncology [address] [place] [phone] 04/30/2024 1:15 PM EST Office Visit [place]ematology [place] [address] Jean-Pierre Peña MD [facility] DR [place] [address] Vicky Burnham APRN [facility] [place] [address] 04/30/2024 2:30 PM EST Appointment Hematology [place] [address] 05/22/2024 9:15 AM EST Laboratory Appointment Lab at [facility] Hematology Oncology [address] [place] [phone] 05/22/2024 10:[address] [place] [place] [address] Jean-Pierre Peña MD [facility] DR [place] [address] 05/22/2024 11:30 AM EST Office Visit Dermatology at [place] [address] [place] [phone] Inderjit Vilchis MD [facility] [place] [address] 05/22/2024 2:00 PM EST Office Visit [place]ematology [place] [address] Jean-Pierre Peña MD [facility] [place] [address] 05/22/2024 3:30 PM EST Appointment [place]ematology [place] [address] 06/11/2024 4:15 PM EST TH Visit (TeleHealth) [place] [address] Jean-Pierre Peña MD [facility] [place] [address] 06/12/2024 8:30 AM EST Infusion Hematology Oncology at [address] [phone] documented as of this encounter Results * (ABNORMAL) Cortisol (02/06/2024 9:30 AM EDT) Cortisol 4.5(L) 4.8 - 19.5 mcg/dL 02/06/2024 1:40 PM EDT [facility] Blood VENOUS BLOOD SPECIMEN / Unknown Venipuncture / Unknown 02/06/2024 9:30 AM EDT 02/06/2024 9:30 AM EDT Narrative [facility] - 02/06/2024 1:40 PM [...] clinical context. 

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
--- OUTSIDE RECORDS SUMMARY | 2024-04-02 13:59 | XMS_ITS | Encounter Summary ---
Author Organization [facility] Address [facility] [place] [address] Care Team Providers Care Security Vehicle Patrol Officer Name Role Phone Tyalor Bryant ZARA Primary Care Provider [phone] [phone] Reason for Visit * Reason Comments Follow-up Encounter Details Date Type Department Care Team ([facility] st Contact Info) Description 12/26/2023 12:45 PM EDT Office Visit Hematology [place] [address] Sharath Parra MD [facility] [address] [place] [address] Vicky Burnham APRN [facility] [place] [address] Malignant melanoma of scalp (Primary Dx); 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 No 07/24/2023 DH IPV Inpatient [...] the original note were not included. [facility] NOTE REFERING PHYSICIAN: DIAGNOSIS: Right [...] 9.72) performed by Castro Preciado MD at [facility] MA[facility] OR PRO BX/REMV, LYMPH NODE, DEEP CERV Right 09/16/2023 BIOPSY OR EXCISION OF LYMPH NODE(S), OPEN, DEEP CERVICAL NODES (WRVU 6.74) performed by Castro Preciado MD at [facility] MA[facility] OR PRO RADICAL RESECT OF TUMOR, SOFT TISSUE FACE OR SCALP, 2CM OR GREATER Right 09/16/2023 RADICAL RESECTION TUMOR SCALP; >2 CM (WRVU 15.26) performed by Castro Preciado MD at [facility] MAIN OR PRO SPLIT GRFT, HEAD, FAC, HAND, FEET <100SQCM Right 09/28/2023 SPLIT THICKNESS SKIN SPLIT GRAFT,100SQ CM OR LESS, NECK (WRVU 10.15) performed by Castro Preciado MD at [facility] MAIN OR TUBAL LIGATION MEDS: FLUoxetine, [...] labs and infusion the next day at [facility] in 6 weeks as scheduled with labs, scan and infusion documented in this encounter Miscellaneous Notes * Addendum Note - Sharath Parra MD - 12/26/2023 12:45 PM EDTAddended by: SHARATH PARRA on: 12/27/2023 06:09 PM Modules accepted: Orders documented in this encounter Plan of Treatment Upcoming Encounters Date Type Department Care Team (Late st Contact Info) Description 04/09/2024 4:15 PM EST TH Visit (TeleHealth) Hematology [place] [address] Sharath Parra MD [facility] [place] [address] 04/13/2024 2:30 PM EST Infusion Hematology Oncology at [address] [address] 04/30/2024 12:15 PM EST Laboratory Appointment Lab at [facility] Hematology Oncology [address] [place] [phone] 04/30/2024 1:15 PM EST Office Visit Hematology [place] [address] Sharath Parra MD [facility] [place] [address] Vicky Burnham APRN [facility] [place] [address] 04/30/2024 2:30 PM EST Appointment Hematology and Oncology at [place] [phone] 05/22/2024 9:15 AM EST Laboratory Appointment Lab at [facility] Hematology Oncology [address] [place] [phone] 05/22/2024 10:[address] [place] [address] Sharath Parra MD [facility] [place] [address] 05/22/2024 11:30 AM EST Office Visit Dermatology at [address] [address] Inderjit Vilchis MD [facility] DR GILBERTO [place] [address] 05/22/2024 2:00 PM EST Office Visit Hematology and Oncology at [place] [phone] Sharath Parra MD [facility] [place] [address] 05/22/2024 3:30 PM EST Appointment Hematology [place] [phone] 06/11/2024 4:15 PM EST TH Visit (TeleHealth) Hematology [place] [address] Sharath Parra MD [facility] [place] [address] 06/12/2024 8:30 AM EST Infusion Hematology Oncology at [address] [phone] documented as of this encounter Visit Diagnoses Diagnosis Malignant melanoma of scalp- Primary Malignant melanoma of skin of scalp and neck 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
--- OUTSIDE RECORDS SUMMARY | 2024-04-02 13:59 | XMS_ITS | Encounter Summary ---
Author Organization [facility] Address [facility] [address] Care Team Providers Care Universal Grinder Tool Name Role Phone AnnetteTaylor ZARA Primary Care Provider [phone] Reason for Visit * Consultation (Routine) - Closed Specialty Diagnoses / Procedures Referred By Crista padron Referred To Contact Wound Care Diagnoses Malignant melanoma of scalp Norm Joy PA [facility] [place] [address] [facility] [place] [address] Referral ID Status Reason Start Date Expiration Date V isits Requested Visits Authorized [id number] Closed Consult, Test & Treat 12/22/2023 12/21/2024 1 1 Encounter Details Date Type Department Care Team (Late st Contact Info) Description 01/25/2024 10:30 AM EDT Office [place] [address] Marisabel Alcantar APRN [facility] [place] [address] Disorder of donor site of [...] Recorded In the past 12 months has [employer] gas, oil, or water [employer] threatened to shut off services in your [...] drainage (thick yellow/green drainage) Malodor Contact the [facility] with any above symptoms Tuesday- Tuesday 8:00AM-4:30PM ([phone]). If weekends / holidays / evenings, please report to the Emergency Department. High Protein foods: try to eat 5-6 servings of these per day Beef, chicken, fish Beans, Lentils, peanut butter Maltese and regular yogurt Cheese, eggs Boost, Ensure shakes Protein powder in a smoothie of your choice documented in this encounter Progress Notes * Marisabel Alcantar APRN - 01/25/2024 10:30 AM EDT Images from the original note were not included. [facility] Initial Consultation Note Reason [...] month to coordinate with other appointments at [facility]. If the area is healed she will cancel the appointment or call/contact us via patient portal if she has any con cerns prior to the appointment. Verbal and written wound care instructions were provided. The patient will call with any questions or concerns. PARTS CATALOGER Plan of Care: Patient to return to [...] with any above symptoms Tuesday- Tuesday 8:00AM-4:30PM ([phone]). If weekends / holidays / evenings, please report to the Emergency Department. High Protein foods: try to eat 5-6 servings of these per day Beef, chicken, fish Beans, Lentils, peanut butter Maltese and regular yogurt Cheese, eggs Boost, Ensure shakes Protein powder in a smoothie of your choice Cc: Norm Joy PA [facility] [place] [address] PCP: Taylor Bryant APRN Wound care supplies ordered. Allevyn foam 4 x 4, gauze, saline, 01/25/24: Supplies ordered through [employer] documented in this encounter Plan of Treatment Upcoming Encounters Date Type Department Care Team (Late st Contact Info) Description 04/09/2024 4:15 PM EST TH Visit (TeleHealth) [place] [phone] Jean-Pierre Peña MD [facility] DR HEMATOLOGY [place] [address] 04/13/2024 2:30 PM EST Infusion Hematology Oncology at [address] [phone] 04/30/2024 12:15 PM EST Laboratory Appointment Lab at [facility] Hematology Oncology [address] [place] [phone] 04/30/2024 1:15 PM EST Office Visit Hematology [place] [phone] Jean-Pierre Peña MD [facility] DR HEMATOLOGY [place] [address] Vicky Burnham APRN [facility] [place] [address] 04/30/2024 2:30 PM EST Appointment Hematology [place] [phone] 05/22/2024 9:15 AM EST Laboratory Appointment Lab at [facility] Hematology Oncology [address] [place] [phone] 05/22/2024 10:[address] [place] [place] [address] Jean-Pierre Peña MD [facility] DR HEMATOLOGY [place] [address] 05/22/2024 11:30 AM EST Office Visit Dermatology at [facility] [address] [place] [address] Inderjit Vilchis MD [facility] DR GILBERTO [place] [address] 05/22/2024 2:00 PM EST Office Visit [place]ology [place] [address] Jean-Pierre Peña MD [facility] DR H[place]ATOLOGY [place] [address] 05/22/2024 3:30 PM EST Appointment [place] [address] 06/11/2024 4:15 PM EST TH Visit (TeleHealth) [place] [address] Jean-Pierre Peña MD [facility] DR HEMATOLOGY [place] [address] 06/12/2024 8:30 AM EST Infusion Hematology Oncology at [address] [phone] Scheduled Referrals Name Type Priority Associated Diagnoses Orde r Schedule Referral to Wound Clinic Outpatient Referral Routine Malignant melanoma of scalp Ordered: 12/22/2023 documented as of this encounter Visit Diagnoses Diagnosis 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
--- OUTSIDE RECORDS SUMMARY | 2024-04-02 13:59 | XMS_ITS | Encounter Summary ---
Author Organization [facility] Address [facility] [place] [address] Care Team Providers Care Supplier Quality Engineer Name Role Phone AnnetteTaylor ZARA Primary Care Provider [phone] [phone] Encounter Details Date Type Department Care Team ([facility] st Contact Info) Description 01/02/2024 Orders Only Hematology [place] [address] Vicky Burnham RN MDS [facility] [place] [address] Malignant melanoma of scalp; Medication management Social History Tobacco Use Types Packs/Day Years Used Date Smoking Tobacco: Former Smokeless Tobacco: Never Comments:quit at age 35 Alcohol Use Standard Drinks/Week Comments Yes 0 (1 standard drink = 0.6 oz pur e alcohol) social gatherings [facility] Utilities Answer Date Recorded In the past 12 months has e electric, gas, oil, or water [employer] threatened to shut off services in your [...] TH Visit (TeleHealth) Hematology [place] [address] Jean-Pierre Peña MD [facility] DR [place] [address] 04/13/2024 2:30 PM EST Infusion Hematology Oncology at [address] [phone] 04/30/2024 12:15 PM EST Laboratory Appointment Lab at [facility] Hematology Oncology [address] [place] [phone] 04/30/2024 1:15 PM EST Office Visit Hematology [place] [address] Jean-Pierre Peña MD [facility] DR [place] [address] Vicky Burnham APRN [facility] [place] [address] 04/30/2024 2:30 PM EST Appointment Hematology and Oncology at [place] [phone] 05/22/2024 9:15 AM EST Laboratory Appointment Lab at [facility] Hematology [address] [phone] 05/22/2024 10:[address] Scan at [place] [phone] Jean-Pierre Peña MD [facility] DR [place] [address] 05/22/2024 11:30 AM EST Office Visit Dermatology at [address] [phone] Inderjit Vilchis MD [facility] DR GILBERTO [place] [address] 05/22/2024 2:00 PM EST Office Visit Hematology [place] [address] Jean-Pierre Peña MD [facility] [place] [address] 05/22/2024 3:30 PM EST Appointment Hematology [place] [phone] 06/11/2024 4:15 PM EST TH Visit (TeleHealth) Hematology [place] [phone] Jean-Pierre Peña MD [facility] DR HEMATOLOGY AND ONCOLOGY [facility] [place] [address] 06/12/2024 8:30 AM EST Infusion Hematology Oncology at [address] [phone] Scheduled Orders Name Type Priority Associated Diagnoses [...] medications documented in this encounter Care Teams Supplier Quality Engineer Relationship Specialty Start Date End Date Taylor Bryant APRN [address] [place] [address] PCP - General 03/31/10 documented as of this encounter
--- OUTSIDE RECORDS SUMMARY | 2024-04-02 13:59 | XMS_ITS | Encounter Summary ---
Author Organization [facility] Address [facility] [place] [address] Care Team Providers Care Director Corporate Sales Name Role Phone Taylor Byrant APRN Primary Care Provider [phone] Encounter Details Date Type Department Care Team (Latest Contact Info) Description 01/17/2024 Travel Social History Tobacco Use Types Packs/Day Years Used Date Smoking Tobacco: Former Smokeless Tobacco: Never Comments:quit at age 35 Alcohol Use Standard Drinks/Week Comments Yes 0 (1 standard drink = 0.6 oz pur e alcohol) social gatherings [facility] Utilities Answer Date Recorded In the [...] TH Visit (TeleHealth) [place] [address] Jean-Pierre Peña MD [facility] [place]ATOLOGY [place] [address] 04/13/2024 2:30 PM EST Infusion Hematology Oncology at [address] [address] 04/30/2024 12:15 PM EST Laboratory Appointment Lab at [facility] Hematology Oncology [address] [place] [phone] 04/30/2024 1:15 PM EST Office Visit [place]ematology [place] [phone] Jean-Pierre Peña MD [facility] H[place]ATOLOGY [place] [address] Vicky Burnham, PLODDING OPERATOR [facility] [place] [address] 04/30/2024 2:30 PM EST Appointment Hematology [place] [address] 05/22/2024 9:15 AM EST Laboratory Appointment Lab at [facility] Hematology Oncology [address] [place] [phone] 05/22/2024 10:[address] Scan at [place] [phone] Jean-Pierre Peña MD [facility] DR HEMATOLOGY [place] [address] 05/22/2024 11:30 AM EST Office Visit Dermatology at [address] [address] Inderjit Vilchis MD [facility] DR GILBERTO [place] [address] 05/22/2024 2:00 PM EST Office Visit [place]ematology [place] [address] Jean-Pierre Peña MD [facility] HEMATOLOGY [place] [address] 05/22/2024 3:30 PM EST Appointment [place]ematology [place] [address] 06/11/2024 4:15 PM EST TH Visit (TeleHealth) [place] [address] Jean-Pierre Peña MD [facility] [place]ATOLOGY [place] [address] 06/12/2024 8:30 AM EST Infusion Hematology Oncology at [address] [phone] documented as of this encounter Visit Diagnoses Not on filedocumented in this encounter Care Teams Director Corporate Sales Relationship Specialty Start Date End Date Taylor Bryant APRN [address] [place] [address] PCP - General 03/31/10 documented as of this encounter
--- OUTSIDE RECORDS SUMMARY | 2024-04-02 13:59 | XMS_ITS | Encounter Summary ---
Author Organization [facility] Address [facility] [place] [address] Care Team Providers Care Recreational Programs Director Name Role Phone Taylor Bryant APRN Primary Care Provider [phone] Encounter Details Date Type Department Care Team [...] TH Visit (TeleHealth) Hematology [place] [address] Jean-Pierre Peña MD [facility] [place] [address] 04/13/2024 2:30 PM EST Infusion Hematology Oncology at [address] [address] 04/30/2024 12:15 PM EST Laboratory Appointment Lab at [facility] Hematology Oncology [address] [place] [phone] 04/30/2024 1:15 PM EST Office Visit Hematology [place] [phone] Jean-Pierre Peña MD [facility] [place] [address] Vicky Burnham, FREIGHT AGENT [facility] [place] [address] 04/30/2024 2:30 PM EST Appointment Hematology [place] [address] 05/22/2024 9:15 AM EST Laboratory Appointment Lab at [facility] Hematology Oncology [address] [place] [phone] 05/22/2024 10:[address] Scan at [place] [phone] Jean-Pierre Peña MD [facility] DR [place] [address] 05/22/2024 11:30 AM EST Office Visit Dermatology at [address] [phone] Inderjit Vilchis MD [facility] DR GILBERT[place] [address] 05/22/2024 2:00 PM EST Office Visit Hematology and [place] [address] Jean-Pierre Peña MD [facility] [place] [address] 05/22/2024 3:30 PM EST Appointment Hematology [place] [address] 06/11/2024 4:15 PM EST TH Visit (TeleHealth) Hematology [place] [address] Jean-Pierre Peña MD [facility] [place] [address] 06/12/2024 8:30 AM EST Infusion Hematology Oncology at [address] [phone] documented as of this encounter Visit Diagnoses Not on filedocumented in this encounter Care Teams Recreational Programs Director Relationship Specialty Start Date End Date Taylor Bryant APRN [address] [place] [address] PCP - General 03/31/10 documented as of this encounter
--- OUTSIDE RECORDS SUMMARY | 2024-04-02 13:59 | XMS_ITS | Encounter Summary ---
Author Organization [facility] Address [facility] [place] [address] Care Team Providers Care In Process Inspector Name Role Phone AnnetteTaylor ZARA Primary Care Provider [phone] [phone] Reason for Referral * Diagnostic Test (Routine) - Closed Specialty Diagnoses / Procedures Referred By Contac t Referred To Contact Radiology Diagnoses Malignant melanoma of scalp Secondary malignancy of soft tissue Procedures CT Neck Soft Tissue w Contrast (Generic) Jean-Pierre Peña MD [facility] [place] [address] [facility] [place] [address] Referral ID Status Reason Start Date Expiration Date V isits Requested Visits Authorized [id number] Closed Specialty Service Requested 10/11/2023 04/11/2025 1 1 * Diagnostic Test (Routine) - Closed Specialty Diagnoses / Procedures Referred By Contac t Referred To Contact Radiology Diagnoses Malignant melanoma of scalp Procedures CT Chest Abdomen Pelvis w Contrast (Generic) Jean-Pierre Peña MD [facility] [place] [address] [facility] [place] [address] Referral ID Status Reason Start Date Expiration Date V isits Requested Visits Authorized [id number] Closed Specialty Service Requested 10/11/2023 04/11/2025 1 1 Reason for Visit * Diagnostic Test (Routine) - Closed Specialty Diagnoses / Procedures Referred By Contac t Referred To Contact Radiology Diagnoses Malignant melanoma of scalp Procedures CT Chest Abdomen Pelvis w Contrast (Generic) Jean-Pierre Peña MD [facility] [place] [address] [facility] [place] [address] Referral ID Status Reason Start Date Expiration Date V isits Requested Visits Authorized [id number] Closed Specialty Service Requested 10/11/2023 04/11/2025 1 1 Encounter Details Date Type Department Care Team (Latest Contact Info) Description 02/06/2024 9:14 AM EDT - 02/06/2024 9:22 AM EDT Hospital Encounter CT Scan at [facility] [place] [address] Jean-Pierre Peña MD [facility] [place] [address] Malignant melanoma of scalp; Secondary [...] has e electric, gas, oil, or water [facility] threatened to shut off services in your [...] Visit (TeleHealth) Hematology [place] [address] Jean-Pierre Peña MD [facility] [place] [address] 04/13/2024 2:30 PM EST Infusion Hematology Oncology at [address] [phone] 04/30/2024 12:15 PM EST Laboratory Appointment Lab at [facility] Hematology Oncology [address] [place] [phone] 04/30/2024 1:15 PM EST Office Visit Hematology [place] [address] Jean-Pierre Peña MD [facility] [place] [address] Vicky Burnham APRN [facility] [place] [address] 04/30/2024 2:30 PM EST Appointment Hematology [place] [address] 05/22/2024 9:15 AM EST Laboratory Appointment Lab at [facility] Hematology Oncology [address] [place] [phone] 05/22/2024 10:[address] [place] [address] Jean-Pierre Peña MD [facility] [place] [address] 05/22/2024 11:30 AM EST Office Visit Dermatology at [facility] [address] [place] [phone] Inderjit Vilchis MD [facility] [place] [address] 05/22/2024 2:00 PM EST Office Visit Hematology [place] [address] Jean-Pierre Peña MD [facility] [place] [address] 05/22/2024 3:30 PM EST Appointment Hematology [place] [phone] 06/11/2024 4:15 PM EST TH Visit (TeleHealth) Hematology [place] [phone] Jean-Pierre Peña MD [facility] [place] [address] 06/12/2024 8:30 AM EST Infusion Hematology Oncology at [address] [address] documented as of this encounter [...] (Generic) (02/06/2024 11:53 AM EDT) WORKSTATION ID [id number] RAD Anatomical Region Laterality Modality Neck, Head Computed Tomogra phy Impressions 02/07/2024 10:09 AM EDT No soft tissue mass or pathologic adenopathy. Thank you for letting us participate in the care of this patient. ??If you are a health care provider and have any questions regarding this report, please contact the number below. ??For patients who have questions please contact the health manager progressive care that requested your imaging first. ? [...] who have questions please contactthe health manager progressive care that requested your imaging first. Jean-Pierre Peña MD IMG CT ORDERABLES * CT Chest Abdomen Pelvis w Contrast (Generic) (02/06/2024 11:53 AM EDT) WORKSTATION ID [id number] RAD Anatomical Region Laterality Modality Abdomen, Pelvis [...] have questions please contact the health manager progressive care that requested your imaging first. ? [...] structures: No suspicious lesions. Procedure Note Ronel Drisocll MD - 02/07/2024 EXAMINATION: CT CHEST ABDOMEN [...] who have questions please contactthe health manager progressive care that requested your imaging first. Jean-Pierre [...] mLs documented in this encounter Care Teams In Process Inspector Relationship Specialty Start Date End Date Taylor Bryant APRN [address] [place] [phone] PCP - General 03/31/10 documented as of this encounter
--- OUTSIDE RECORDS SUMMARY | 2024-04-02 14:00 | XMS_ITS | Encounter Summary ---
Author Organization [facility] Address [facility] [address] Care Team Providers Care Theatrical Scenic Designer Name Role Phone Taylor Bryant APRN Primary Care Provider [phone] Encounter Details Date Type Department Care Team ([facility] st Contact Info) Description 12/07/2023 External Results Hematology [place] [address] Jean-Pierre Peña MD [facility] DR [place] [address] Social History Tobacco Use Types Packs/Day Years Used Date Smoking Tobacco: Former Smokeless Tobacco: Never Comments:quit at age 35 Alcohol Use Standard Drinks/Week Comments Yes 0 (1 standard drink = 0.6 oz pur e alcohol) social gatherings [facility] Utilities Answer Date Recorded In [...] TH Visit (TeleHealth) Hematology [place] [address] Jean-Pierre Peña MD [facility] DR [place] [address] 04/13/2024 2:30 PM EST Infusion Hematology Oncology at [address] [phone] 04/30/2024 12:15 PM EST Laboratory Appointment Lab at [facility] Hematology Oncology [address] [place] [phone] 04/30/2024 1:15 PM EST Office Visit Hematology [place] [address] Jean-Pierre Peña MD [facility] DR [place] [address] Vicky Burnham APRN [facility] [place] [address] 04/30/2024 2:30 PM EST Appointment Hematology and Oncology at [place] [phone] 05/22/2024 9:15 AM EST Laboratory Appointment Lab at [facility] Hematology [address] [phone] 05/22/2024 10:[address] Scan at [place] [phone] Jean-Pierre Peña MD [facility] DR [place] [address] 05/22/2024 11:30 AM EST Office Visit Dermatology at [address] [phone] Inderjit Vilchis MD [facility] DR GILBERTO [place] [address] 05/22/2024 2:00 PM EST Office Visit Hematology and Oncology at [place] [phone] Jean-Pierre Peña MD [facility] [place] [address] 05/22/2024 3:30 PM EST Appointment Hematology [place] [phone] 06/11/2024 4:15 PM EST TH Visit (TeleHealth) Hematology and Oncology at [place] [phone] Jean-Pierre Peña MD [facility] DR HEMATOLOGY [place] [address] 06/12/2024 8:30 AM EST Infusion Hematology Oncology at [address] [phone] documented as of this encounter Procedures Procedure [...] on filedocumented in this encounter Care Teams Theatrical Scenic Designer Relationship Specialty Start Date End Date Taylor Bryant APRN [address] [place] [address] [phone] PCP - General 03/31/10 documented as of this encounter
--- OUTSIDE RECORDS SUMMARY | 2024-04-02 14:00 | XMS_ITS | Encounter Summary ---
Author Organization [facility] Address [facility] [place] [address] Care Team Providers Care Webbing Inspector Name Role Phone Taylor Bryant APRN Primary Care Provider [phone] Encounter Details Date Type Department Care Team ([facility] st Contact Info) Description 11/21/2023 Telephone Hematology [place] [phone] Roselyn Sánchez Social History Tobacco Use Types [...] - 11/21/2023 4:17 PM EDT [facility] [employer] Enterprise Solutions Architect spoke to Keeley. [facility] awarded another $175 to be used for gas expenses for [facility] appt. No further outreach needed at this time. Patient has my contact information if she need future assistance. Roselyn Sánchez documented in this encounter Plan of Treatment Upcoming Encounters Date Type Department Care Team (Late Contact Info) Description 04/09/2024 4:15 PM EST TH Visit (TeleHealth) Hematology [place] [address] Jean-Pierre Peña MD [facility] DR HEMATOLOGY [place] [address] 04/13/2024 2:30 PM EST Infusion Hematology Oncology at [address] [address] 04/30/2024 12:15 PM EST Laboratory Appointment Lab at [facility] Hematology Oncology [address] [place] [address] 04/30/2024 1:15 PM EST Office Visit Hematology and Oncology at [place] [phone] Jean-Pierre Peña MD [facility] DR HEMATOLOGY [place] [address] Vicky Burnham APRN [facility] [place] [address] 04/30/2024 2:30 PM EST Appointment Hematology [place] [address] 05/22/2024 9:15 AM EST Laboratory Appointment Lab at [facility] Hematology Oncology [address] [place] [phone] 05/22/2024 10:[address] [place] [address] Jean-Pierre Peña MD [facility] DR HEMATOLOGY [place] [address] 05/22/2024 11:30 AM EST Office Visit Dermatology at [address] [address] Inderjit Vilchis MD [facility] DR GILBERTO [place] [address] 05/22/2024 2:00 PM EST Office Visit Hematology [place] [phone] Jean-Pierre Peña MD [facility] HEMATOLOGY [place] [address] 05/22/2024 3:30 PM EST Appointment Hematology [place] [address] 06/11/2024 4:15 PM EST TH Visit (TeleHealth) Hematology [place] [address] Jean-Pierre Peña MD [facility] DR HEMATOLOGY [place] [address] 06/12/2024 8:30 AM EST Infusion Hematology Oncology at [address] [phone] documented as of this encounter Visit Diagnoses Not on filedocumented in this encounter Care Teams Webbing Inspector Relationship Specialty Start Date End Date Taylor Bryant, LEASING MANAGER [address] [place] [phone] PCP - General 03/31/10 documented as of this encounter
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
--- OUTSIDE RECORDS SUMMARY | 2024-04-02 14:00 | XMS_ITS | Encounter Summary ---
Author Organization [facility] Address [facility] [place] [address] Care Team Providers Care Agribusiness Internship Name Role Phone Taylor Bryant APRN Primary Care Provider [phone] [phone] Encounter Details Date Type Department Care Team (Latest Contact Info) Description 10/11/2023 Multidisciplinary Ca re Committee Hematology [place] [address] Jean-Pierre Peña MD [facility] DR [place] [address] Social History Tobacco Use Types Packs/Day Years Used Date Smoking Tobacco: Former Smokeless Tobacco: Never Comments:quit at age 35 Alcohol Use Standard Drinks/Week Comments Yes 0 (1 standard drink = 0.6 oz pur e alcohol) social gatherings [facility] Utilities Answer Date Recorded In the [...] TH Visit (TeleHealth) Hematology [place] [address] Jean-Pierre Peña MD [facility] [place] [address] 04/13/2024 2:30 PM EST Infusion Hematology Oncology at [address] [phone] 04/30/2024 12:15 PM EST Laboratory Appointment Lab at [facility] Hematology Oncology [address] [place] [phone] 04/30/2024 1:15 PM EST Office Visit Hematology [place] [phone] Jean-Pierre Peña MD [facility] [place]Y [place] [address] Vicky Burnham APRN [facility] [place] [address] 04/30/2024 2:30 PM EST Appointment Hematology and Oncology at [place] [phone] 05/22/2024 9:15 AM EST Laboratory Appointment Lab at [facility] Hematology Oncology [address] [place] [phone] 05/22/2024 10:[address] [place] [address] Jean-Pierre Peña MD [facility] DR [place] [address] 05/22/2024 11:30 AM EST Office Visit Dermatology at [address] [phone] Inderjit Vilhcis MD [facility] DR GILBERTO [place] [address] 05/22/2024 2:00 PM EST Office Visit Hematology [place] [address] Jean-Pierre Peña MD [facility] DR [place] [address] 05/22/2024 3:30 PM EST Appointment Hematology [place] [address] 06/11/2024 4:15 PM EST TH Visit (TeleHealth) Hematology [place] [address] Jean-Pierre Peña MD [facility] [place] [address] 06/12/2024 8:30 AM EST Infusion Hematology Oncology at [address] [phone] documented as of this encounter Visit Diagnoses Not on filedocumented in this encounter Care Teams Agribusiness Internship Relationship Specialty Start Date End Date Taylor Bryant APRN [address] [place] [address] PCP - General 03/31/10 documented as of this encounter
--- OUTSIDE RECORDS SUMMARY | 2024-04-02 14:00 | XMS_ITS | Encounter Summary ---
Author Organization [facility] Address [facility] [place] [address] Care Team Providers Care Activated Sludge Attendant Name Role Phone Taylor Bryant APRN Primary Care Provider [phone] [phone] Encounter Details Date Type Department Care Team ([facility] st Contact Info) Description 10/06/2023 1:40 PM EDT Office [place] [phone] Castro Preciado MD [facility] [place] [address] Malignant melanoma of scalp; Psoriatic arthritis Social [...] of Lymph Nodes Examined: 6 Number of [place] Nodes Examined: 0 Pathologic Stage Classification (pTNM, [...] 9.72) performed by Castro Preciado MD at [facility] MAIN OR PRO BX/REMV, LYMPH NODE, DEEP CERV Right 09/16/2023 BIOPSY OR EXCISION OF LYMPH NODE(S), OPEN, DEEP CERVICAL NODES (WRVU 6.74) performed by Castro Preciado MD at [facility] MAIN OR PRO RADICAL RESECT OF TUMOR, SOFT TISSUE FACE OR SCALP, 2CM OR GREATER Right 09/16/2023 RADICAL RESECTION TUMOR SCALP; >2 CM (WRVU 15.26) performed by Castro Preciado MD at [facility] MAIN OR PRO SPLIT GRFT, HEAD, FAC, HAND, FEET <100SQCM Right 09/28/2023 SPLIT THICKNESS SKIN SPLIT GRAFT,100SQ CM OR LESS, NECK (WRVU 10.15) performed by Castro Preciado MD at [facility] MAIN OR TUBAL LIGATION Patient Active Problem [...] TH Visit (TeleHealth) Hematology [place] [address] Jean-Pierre Peña MD [facility] DR [place] [address] 04/13/2024 2:30 PM EST Infusion Hematology Oncology at [address] [phone] 04/30/2024 12:15 PM EST Laboratory Appointment Lab at [facility] Hematology Oncology [address] [place] [phone] 04/30/2024 1:15 PM EST Office Visit Hematology and Oncology at [place] [phone] Jean-Pierre Peña MD [facility] DR [place] [address] Vicky Burnham APRN [facility] [place] [address] 04/30/2024 2:30 PM EST Appointment Hematology and Oncology at [place] [phone] 05/22/2024 9:15 AM EST Laboratory Appointment Lab at [facility] Hematology Oncology [address] [place] [phone] 05/22/2024 10:[address] [place] [phone] Jean-Pierre Peña MD [facility] DR [place] [address] 05/22/2024 11:30 AM EST Office Visit Dermatology at [address] [address] Inderjit Vilchis MD [facility] DR GILBERT[place] [address] 05/22/2024 2:00 PM EST Office Visit Hematology [place] [phone] Jean-Pierre Peña MD [facility] DR [place] [address] 05/22/2024 3:30 PM EST Appointment Hematology [place] [address] 06/11/2024 4:15 PM EST TH Visit (TeleHealth) Hematology [place] [address] Jean-Pierre Peña MD [facility] DR [place] [address] 06/12/2024 8:30 AM EST Infusion Hematology Oncology at [address] [phone] documented as of this encounter Visit Diagnoses Diagnosis 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
--- OUTSIDE RECORDS SUMMARY | 2024-04-02 14:00 | XMS_ITS | Encounter Summary ---
Author Organization [facility] Address [facility] [place] [address] Care Team Providers Care Fabrics And Material Cutter Name Role Phone Taylor Bryant APRN Primary Care Provider +1 [phone] Encounter Details Date Type Department Care Team [...] TH Visit (TeleHealth) [place]ematology [place] [address] Jean-Pierre Peña MD [facility] [place] [address] 04/13/2024 2:30 PM EST Infusion Hematology Oncology at [address] [address] 04/30/2024 12:15 PM EST Laboratory Appointment Lab at [facility] [place]ology On[place] [address] [place] [phone] 04/30/2024 1:15 PM EST Office Visit Hematology [place] [phone] Jean-Pierre Peña MD [facility] [place] [address] Vicky Burnham, PRECISION LATHE OPERATOR [facility] [place] [address] 04/30/2024 2:30 PM EST Appointment Hematology [place] [address] 05/22/2024 9:15 AM EST Laboratory Appointment Lab at [facility] Hematology Oncology [address] [place] [phone] 05/22/2024 10:[address] Scan at [place] [phone] Jean-Pierre Peña MD [facility] DR [place] [address] 05/22/2024 11:30 AM EST Office Visit Dermatology at [address] [address] Inderjit Vilchis MD [facility] DR GILBERT[place] [address] 05/22/2024 2:00 PM EST Office Visit Hematology [place] [address] Jean-Pierre Peña MD [facility] [place] [address] 05/22/2024 3:30 PM EST Appointment Hematology [place] [address] 06/11/2024 4:15 PM EST TH Visit (TeleHealth) [place]emat[place] [address] Jean-Pierre Peña MD [facility] [place] [address] 06/12/2024 8:30 AM EST Infusion Hematology Oncology at [address] [phone] documented as of this encounter Visit Diagnoses Not on filedocumented in this encounter Care Teams Fabrics And Material Cutter Relationship Specialty Start Date End Date Taylor Bryant APRN [address] [place] [address] PCP - General 03/31/10 documented as of this encounter
--- OUTSIDE RECORDS SUMMARY | 2024-04-02 14:00 | XMS_ITS | Encounter Summary ---
Author Organization [facility] Address [facility] [place] [address] Care Team Providers Care Distillery Laborer Name Role Phone [place] ZARA Primary Care Provider +1 [phone] Encounter Details Date Type Department Care Team ([facility] st Contact Info) Description 11/14/2023 8:45 AM EDT Office Visit [place] [address] Sharath Parra MD [facility] [address] [place] [address] Vicky Burnham APRN [facility] [place] [address] Malignant melanoma of scalp (Primary Dx); Secondary [...] Recorded In the past 12 months has No [employer] electric, gas, oil, or water company threatened [...] encounter Progress Notes * Pushpaelenita Vicky M, SEISMOLOGY TEACHER - 11/14/2023 8:45 AM EDT Images from the original note were not included. [facility] NOTE REFERING PHYSICIAN: DIAGNOSIS: Right [...] 9.72) performed by Castro Preciado MD at [facility] OR PRO BX/REMV, LYMPH NODE, DEEP CERV Right 09/16/2023 BIOPSY OR EXCISION OF LYMPH NODE(S), OPEN, DEEP CERVICAL NODES (WRVU 6.74) performed by Castro Preciado MD at [facility] OR PRO RADICAL RESECT OF TUMOR, SOFT TISSUE FACE OR SCALP, 2CM OR GREATER Right 09/16/2023 RADICAL RESECTION TUMOR SCALP; >2 CM (WRVU 15.26) performed by Castro Preciado MD at [facility] OR PRO SPLIT GRFT, HEAD, FAC, HAND, FEET <100SQCM Right 09/28/2023 SPLIT THICKNESS SKIN SPLIT GRAFT,100SQ CM OR LESS, NECK (WRVU 10.15) performed by Castro Preciado MD at [facility] OR TUBAL LIGATION MEDS: FLUoxetine, [...] TH Visit (TeleHealth) [place] [address] Sharath Parra MD [facility] [place] [address] 04/13/2024 2:30 PM EST Infusion Hematology Oncology at [address] [address] 04/30/2024 12:15 PM EST Laboratory Appointment Lab [place] [facility] [place] [address] [place] [phone] 04/30/2024 1:15 PM EST Office Visit [place] [address] Sharath Parra MD [facility] [place] [address] Vicky Burnham APRN [facility] [place] [address] 04/30/2024 2:30 PM EST Appointment Hematology and Oncology at [place] [phone] 05/22/2024 9:15 AM EST Laboratory Appointment Lab at [facility] [place]ology On[place] [address] [place] [phone] 05/22/2024 10:[address] Scan at [place] [phone] Sharath Parra MD [facility] DR [place] [address] 05/22/2024 11:30 AM EST Office Visit Dermatology at [address] [phone] Inderjit Vilchis MD [facility] DR GILBERT[place] [address] 05/22/2024 2:00 PM EST Office Visit [place] [address] Sharath Parra MD [facility] [place] [address] 05/22/2024 3:30 PM EST Appointment [place] [address] 06/11/2024 4:15 PM EST TH Visit (TeleHealth) [place] [address] Sharath Parra MD [facility] [place] [address] 06/12/2024 8:30 AM EST Infusion Hematology Oncology at [address] [address] Scheduled Orders Name Type Priority Associated Diagnoses [...] children documented in this encounter Care Teams Distillery Laborer Relationship Specialty Start Date End Date Taylor Bryant APRN [address] [place] [address] PCP - General 03/31/10 documented as of this encounter
--- OUTSIDE RECORDS SUMMARY | 2024-04-02 14:00 | XMS_ITS | Encounter Summary ---
Author Organization [facility] [place] [address] Care Team Providers Care Tactical/Mobile Watch Officer Name Role Phone Taylor Bryant APRN Primary Care Provider [phone] [phone] Encounter Details Date Type Department Care Team ([facility] st Contact Info) Description 11/16/2023 Telephone Hematology [place] [phone] Gianna Sanabria RN Social History Tobacco Use Types Packs/Day Years Used Date Smoking Tobacco: Former Smokeless Tobacco: Never Comments:quit at age 35 Alcohol Use Standard Drinks/Week Comments Yes 0 (1 standard drink = 0.6 oz pur e alcohol) social gatherings [facility] Utilities Answer Date Recorded [...] TH Visit (TeleHealth) [place] [address] Jean-Pierre Peña MD [facility] HEMATOLOGY [place] [address] 04/13/2024 2:30 PM EST Infusion Hematology Oncology at [address] [address] 04/30/2024 12:15 PM EST Laboratory Appointment Lab at [facility] [place] On[place] [address] [place] [phone] 04/30/2024 1:15 PM EST Office Visit [place] [address] Jean-Pierre Peña MD [facility] DR HEMATOLOGY [place] [address] Vicky Burnham APRN [facility] [place] [address] 04/30/2024 2:30 PM EST Appointment Hematology and Oncology at [place] [phone] 05/22/2024 9:15 AM EST Laboratory Appointment Lab at [facility] [place] [address] [address] 05/22/2024 10:[address] Scan at [place] [phone] Jean-Pierre Peña MD [facility] DR HEMATOLOGY [place] [address] 05/22/2024 11:30 AM EST Office Visit Dermatology at [address] [address] Inderjit Vilchis MD [facility] DR GILBERTO [place] [address] 05/22/2024 2:00 PM EST Office Visit [place]ematology [place] [address] Jean-Pierre Peña MD [facility] HEMATOLOGY [place] [address] 05/22/2024 3:30 PM EST Appointment [place]ology [place] [address] 06/11/2024 4:15 PM EST TH Visit (TeleHealth) [place] [address] Jean-Pierre Peña MD [facility] DR HEMATOLOGY [place] [address] 06/12/2024 8:30 AM EST Infusion Hematology Oncology at [address] [phone] documented as of this encounter Visit Diagnoses Not on filedocumented in this encounter Care Teams Tactical/Mobile Watch Officer Relationship Specialty Start Date End Date Taylor Bryant, CUT LACE MACHINE OPERATOR [address] [place] [address] PCP - General 03/31/10 documented as of this encounter
--- OUTSIDE RECORDS SUMMARY | 2024-04-02 14:00 | XMS_ITS | Encounter Summary ---
Author Organization [facility] Address [facility] [place] [address] Care Team Providers Care Sr. Director Name Role Phone Taylor Bryant APRN Primary Care Provider [phone] [phone] Encounter Details Date Type Department Care Team ([facility] st Contact Info) Description 11/16/2023 Telephone Otolaryngology at [facility] [place] [phone] Mary Lou Bryant Social History Tobacco Use Types Packs/Day Years Used Date Smoking Tobacco: Former Smokeless Tobacco: Never Comments:quit at age 35 Alcohol Use Standard Drinks/Week Comments Yes 0 (1 standard drink = 0.6 oz pur e alcohol) social gatherings [facility] Utilities Answer Date Recorded In the [...] TH Visit (TeleHealth) Hematology [place] [address] Jean-Pierre Peña MD [facility] HEMATOLOGY [place] [address] 04/13/2024 2:30 PM EST Infusion Hematology Oncology at [address] [phone] 04/30/2024 12:15 PM EST Laboratory Appointment Lab at [facility] Hematology Oncology [address] [place] [phone] 04/30/2024 1:15 PM EST Office Visit Hematology [place] [address] Jean-Pierre Peña MD [facility] DR [place] [address] Vicky Burnham APRN [facility] [place] [address] 04/30/2024 2:30 PM EST Appointment Hematology and Oncology at [place] [phone] 05/22/2024 9:15 AM EST Laboratory Appointment Lab at [facility] Hematology [address] [address] 05/22/2024 10:[address] Scan at [place] [phone] Jean-Pierre Peña MD [facility] DR HEMATOLOGY [place] [address] 05/22/2024 11:30 AM EST Office Visit Dermatology at [address] [phone] Inderjit Vilchis MD [facility] DR GILBERTO [place] [address] 05/22/2024 2:00 PM EST Office Visit Hematology [place] [address] Jean-Pierre Peña MD [facility] HEMATOLOGY [place] [address] 05/22/2024 3:30 PM EST Appointment Hematology [place] [address] 06/11/2024 4:15 PM EST TH Visit (TeleHealth) Hematology [place] [address] Jean-Pierre Peña MD [facility] DR HEMATOLOGY [place] [address] 06/12/2024 8:30 AM EST Infusion Hematology Oncology at [address] [phone] documented as of this encounter Visit Diagnoses Not on filedocumented in this encounter Care Teams Sr. Director Relationship Specialty Start Date End Date Taylor Bryant APRN [address] [place] [address] PCP - General 03/31/10 documented as of this encounter
--- OUTSIDE RECORDS SUMMARY | 2024-04-02 14:00 | XMS_ITS | Encounter Summary ---
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, unspecified lymph node region Procedures [id number] pembrolizumab (Keytruda) Jean-Pierre Peña MD [facility] DR [place] [address] Jean-Pierre Peña MD [facility] DR [place] [address] Referral ID Status Reason Start Date Expiration Date V isits Requested Visits Authorized [id number] Authorized 07/25/2023 07/24/2024 99 99 Encounter Details Date Type Department Care Team (Latest Contact Info) Description 10/24/2023 7:29 AM EDT - 10/24/2023 11:59 PM EDT Hospital Encounter Hematology [place] [address] Medication management; Malignant melanoma of scalp; Malignant [...] TH Visit (TeleHealth) Hematology [place] [address] Jean-Pierre Peña MD [facility] [place]OLOGY [place] [address] 04/13/2024 2:30 PM EST Infusion Hematology Oncology at [address] [address] 04/30/2024 12:15 PM EST Laboratory Appointment Lab [place] [facility] [place] On[place] [address] [place] [phone] 04/30/2024 1:15 PM EST Office Visit Hematology and Oncology at [place] [phone] Jean-Pierre Peña MD [facility] [place] [address] Vicky Burnham APRN [facility] [place] [address] 04/30/2024 2:30 PM EST Appointment Hematology and Oncology at [place] [phone] 05/22/2024 9:15 AM EST Laboratory Appointment Lab at [facility] [place] [address] [phone] 05/22/2024 10:[address] Scan at [place] [phone] Jean-Pierre Peña MD [facility] DR HEM[place] [address] 05/22/2024 11:30 AM EST Office Visit Dermatology at [address] [address] Inderjit Vilchis MD [facility] DR GILBERTO [place] [address] 05/22/2024 2:00 PM EST Office Visit Hematology [place] [address] Jean-Pierre Peña MD [facility] [place]ATOLOGY [place] [address] 05/22/2024 3:30 PM EST Appointment Hematology [place] [address] 06/11/2024 4:15 PM EST TH Visit (TeleHealth) Hematology [place] [address] Jean-Pierre Peña MD [facility] [address] [place] [address] 06/12/2024 8:30 AM EST Infusion Hematology Oncology at [address] [phone] documented as of this encounter Results * Lactate Dehydrogenase (10/24/2023 7:48 AM EDT) [facility] Lactate Dehydrogenase 194 110 - 220 unit/L [facility] Blood 10/24/2023 7:48 AM EDT 10/24/2023 7:53 AM EDT Narrative Resulting Agency Comment Spec In Lab Jean-Pierre Peña MD CHEMISTRY ORDERABLES [facility] [place] [address] * T4, free (10/24/2023 7:48 AM EDT) Free T4 1.26 0.93 - 1.70 ng/dL [facility] Comment: Reference Interval (ng/dL): Females: ??First Trimester: 0.97-1.68 ??Second Trimester: 0.77-1.51 ??Third Trimester: 0.77-1.49 Blood 10/24/2023 7:48 AM EDT 10/24/2023 7:53 AM EDT Narrative Resulting Agency Comment Spec In Lab Jean-Pierre Peña MD CHEMISTRY ORDERABLES [facility] [place] [address] * TSH (10/24/2023 7:48 AM EDT) Thyroid Stimulating Hormone 0.89 0.27 - 4.20 mcIU/mL [facility] Comment: Reference Interval (mcIU/mL): Females: ??First Trimester: 0.23-3.88 ??Second Trimester: 0.22-3.90 ??Third Trimester: 0.44-4.66 Blood 10/24/2023 7:48 AM EDT 10/24/2023 7:53 AM EDT Narrative Resulting Agency Comment Spec In Lab Jean-Pierre Peña MD CHEMISTRY ORDERABLES [facility] [place] [address] * (ABNORMAL) Comprehensive metabolic panel (non-fasting) (10/24/2023 7:48 AM EDT) Glucose 99 65 - 199 mg/dL [facility] Comment:Diabetes: >=200 mg/d L plus symptoms Blood Urea Nitrogen 27(H) 8 - 18 mg/dL [facility] Creatinine 0.88 0.70 - 1.20 mg/dL [facility] Sodium 139 135 - 145 mmol/L [facility] Potassium 4.3 3.5 - 5.0 mmol/L [facility] Comment: Please note: ??Patients with WBC >100,000 may have falsely elevated Potassium levels. ??For accurate Potassium quantification in these patients send serum separator tube (gold top) for subsequent determinations. ??Contact the Clinical Chemistry Laboratory if there are any questions. Chloride 105 98 - 107 mmol/L [facility] Carbon Dioxide 22 22 - 31 mmol/L [facility] Anion Gap 12 5 - 15 mmol/L [facility] Calcium 9.5 8.5 - 10.5 mg/dL [facility] Protein, Total 6.8 6.1 - 8.0 g/dL [facility] Albumin 4.2 3.2 - 5.2 g/dL [facility] Aspartate Aminotransferase 25 0 - 30 unit/L [facility] Alanine Aminotransferase 31(H) 0 - 30 unit/L [facility] Alkaline Phosphatase 92 35 - 105 unit/L [facility] Bilirubin, Total 0.6 0.2 - 1.3 mg/dL [facility] Est Glomerular Filtration Rate 76 >=60 mL/min/1. 73 m?? [facility] Comment: This patient's [...] Peña MD CHEMISTRY ORDERABLES Performing Organization Address City/State/[facility] Co de Phone Number [facility] [place] [address] documented in this encounter Visit Diagnoses Diagnosis [...] mL/hr documented in this encounter Care Teams Impregnator Helper Relationship Specialty Start Date End Date Taylor Bryant, ZARA [address] [place] [address] PCP - General 03/31/10 documented as of this encounter
--- OUTSIDE RECORDS SUMMARY | 2024-04-02 14:00 | XMS_ITS | Encounter Summary ---
Author Organization [facility] [place] [address] Care Team Providers Care Private Watchman Name Role Phone Taylor Bryant APRN Primary Care Provider [phone] [phone] Encounter Details Date Type Department Care Team ([facility] st Contact Info) Description 11/29/2023 Telephone Hematology [place] [phone] Gianna Snaabria RN Social History Tobacco Use Types Packs/Day Years Used Date Smoking Tobacco: Former Smokeless Tobacco: Never Comments:quit at age 35 Alcohol Use Standard Drinks/Week Comments Yes 0 (1 standard drink = 0.6 oz pur e alcohol) social gatherings [facility] Utilities Answer Date Recorded In [...] 5 was on 11/13. Call placed to [facility] to reassess her joint pain. Patient reported [...] 3 weeks, but have it done [facility] and [facility]'. Patient is wondering if she [...] TH Visit (TeleHealth) Hematology [place] [address] Jean-Pierre Peña MD [facility] DR HEMATOLOGY [place] [address] 04/13/2024 2:30 PM EST Infusion Hematology Oncology at [address] [phone] 04/30/2024 12:15 PM EST Laboratory Appointment Lab [place] [facility] [place] [address] [place] [phone] 04/30/2024 1:15 PM EST Office Visit Hematology [place] [phone] Jean-Pierre Peña MD [facility] DR HEMATOLOGY [place] [address] Vicky Burnham APRN [facility] [place] [address] 04/30/2024 2:30 PM EST Appointment Hematology and Oncology at [place] [phone] 05/22/2024 9:15 AM EST Laboratory Appointment Lab at [facility] [place] On[place] [address] [place] [phone] 05/22/2024 10:[address] [place] [address] Jean-Pierre Peña MD [facility] DR HEMATOLOGY [place] [address] 05/22/2024 11:30 AM EST Office Visit Dermatology at [address] [address] Inderjit Vilchis MD [facility] DR GILBERTO [place] [address] 05/22/2024 2:00 PM EST Office Visit Hematology [place] [address] Jean-Pierre Peña MD [facility] DR HEMATOLOGY [place] [address] 05/22/2024 3:30 PM EST Appointment Hematology [place] [address] 06/11/2024 4:15 PM EST TH Visit (TeleHealth) Hematology [place] [address] Jean-Pierre Peña MD [facility] DR HEMATOLOGY [place] [address] 06/12/2024 8:30 AM EST Infusion Hematology Oncology at [address] [phone] documented as of this encounter Visit Diagnoses Not on filedocumented in this encounter Care Teams Private Watchman Relationship Specialty Start Date End Date Taylor Bryant, ZARA [address] [place] [phone] PCP - General 03/31/10 documented as of this encounter
--- OUTSIDE RECORDS SUMMARY | 2024-04-02 14:00 | XMS_ITS | Encounter Summary ---
Author Organization [facility] Address [facility] [place] [address] Care Team Providers Care Assembler Movement Name Role Phone Taylor Bryant APRN Primary Care Provider [phone] [phone] Encounter Details Date Type Department Care Team (Latest Contact Info) Description 10/23/2023 Travel Social History Tobacco Use Types Packs/Day Years Used Date Smoking Tobacco: Former Smokeless Tobacco: Never Comments:quit at age 35 Alcohol Use Standard Drinks/Week Comments Yes 0 (1 standard drink = 0.6 oz pur e alcohol) social gatherings [facility] Utilities Answer Date Recorded In [...] TH Visit (TeleHealth) [place] [address] Jean-Pierre Peña MD [facility] HEMATOLOGY [place] [address] 04/13/2024 2:30 PM EST Infusion Hematology Oncology at [address] [phone] 04/30/2024 12:15 PM EST Laboratory Appointment Lab at [facility] Hematology Oncology [address] [place] [phone] 04/30/2024 1:15 PM EST Office Visit [place] [phone] Jean-Pierre Peña MD [facility] HEMATOLOGY [place] [address] Vicky Burnham, HELP DESK ADMINISTRATOR [facility] [place] [address] 04/30/2024 2:30 PM EST Appointment Hematology [place] [address] 05/22/2024 9:15 AM EST Laboratory Appointment Lab at [facility] Hematology Oncology [address] [place] [phone] 05/22/2024 10:[address] Scan at [place] [phone] Jean-Pierre Peña MD [facility] DR HEMATOLOGY [place] [address] 05/22/2024 11:30 AM EST Office Visit Dermatology at [address] [address] Inderjit Vilchis MD [facility] DR GILBERTO [place] [address] 05/22/2024 2:00 PM EST Office Visit [place] [address] Jean-Pierre Peña MD [facility] HEMATOLOGY [place] [address] 05/22/2024 3:30 PM EST Appointment [place]ematology [place] [address] 06/11/2024 4:15 PM EST TH Visit (TeleHealth) [place] [address] Jean-Pierre Peña MD [facility] HEMATOLOGY [place] [address] 06/12/2024 8:30 AM EST Infusion Hematology Oncology at [address] [phone] documented as of this encounter Visit Diagnoses Not on filedocumented in this encounter Care Teams Assembler Movement Relationship Specialty Start Date End Date Taylor Bryant APRN [address] [place] [address] PCP - General 03/31/10 documented as of this encounter
--- OUTSIDE RECORDS SUMMARY | 2024-04-02 14:00 | XMS_ITS | Encounter Summary ---
Author Organization [facility] Address [facility] [place] [address] Care Team Providers Care Application Designer Name Role Phone Taylor Bryant APRN Primary Care Provider [phone] [phone] Encounter Details Date Type Department Care Team ([facility] st Contact Info) Description 11/08/2023 Notes Only Hematology and Oncology at [facility] [place] [address] Roselyn Sánchez Social History Tobacco Use Types Packs/Day Years Used Date Smoking Tobacco: Former Smokeless Tobacco: Never Comments:quit at age 35 Alcohol Use Standard Drinks/Week Comments Yes 0 (1 standard drink = 0.6 oz pur e alcohol) social gatherings [facility] Utilities Answer Date Recorded In the [...] - 11/08/2023 3:27 PM EDT [facility] for another $175 to be used for gas expenses for [facility] appt. Roselyn Sánchez documented in this encounter Plan of Treatment Upcoming Encounters Date Type Department Care Team (Late st Contact Info) Description 04/09/2024 4:15 PM EST TH Visit (TeleHealth) [place]ology [place] [address] Jean-Pierre Peña MD [facility] [place] [address] 04/13/2024 2:30 PM EST Infusion Hematology Oncology at [address] [address] 04/30/2024 12:15 PM EST Laboratory Appointment Lab at [facility] Hematology Oncology [address] [place] [phone] 04/30/2024 1:15 PM EST Office Visit Hematology and Oncology at [place] [phone] Jean-Pierre Peña MD [facility] DR [place] [address] Vicky Burnham APRN [facility] [place] [address] 04/30/2024 2:30 PM EST Appointment Hematology and Oncology at [place] [address] 05/22/2024 9:15 AM EST Laboratory Appointment Lab at [facility] Hematology [address] [phone] 05/22/2024 10:[address] Scan at [place] [phone] Jean-Pierre Peña MD [facility] DR [place] [address] 05/22/2024 11:30 AM EST Office Visit Dermatology at [address] [address] Inderjit Vilchis MD [facility] DR GILBERTO [place] [address] 05/22/2024 2:00 PM EST Office Visit Hematology [place] [address] Jean-Pierre Peña MD [facility] [place] [address] 05/22/2024 3:30 PM EST Appointment Hematology [place] [address] 06/11/2024 4:15 PM EST TH Visit (TeleHealth) [place] [address] Jean-Pierre Peña MD [facility] DR [place] [address] 06/12/2024 8:30 AM EST Infusion Hematology Oncology at [address] [phone] documented as of this encounter Visit Diagnoses Not on filedocumented in this encounter Care Teams Application Designer Relationship Specialty Start Date End Date Taylor Bryant, ZARA [address] [place] [address] PCP - General 03/31/10 documented as of this encounter
--- OUTSIDE RECORDS SUMMARY | 2024-04-02 14:00 | XMS_ITS | Encounter Summary ---
Author Organization [facility] Address [facility] [place] [address] Care Team Providers Care Processing Operator Name Role Phone Taylor Bryant APRN Primary Care Provider [phone] Encounter Details Date Type Department Care Team ([facility] st Contact Info) Description 10/27/2023 Telephone Hematology [place] [phone] Roselyn Sánchez Social History Tobacco Use Types Packs/Day Years Used Date Smoking Tobacco: Former Smokeless Tobacco: Never Comments:quit at age 35 Alcohol Use Standard Drinks/Week Comments Yes 0 (1 standard drink = 0.6 oz pur e alcohol) social gatherings [facility] Utilities Answer Date Recorded In the past [...] - 10/27/2023 10:03 AM EDT [facility] Re[employer] Coordinator spoke with Keeley. [facility] dona awarded payment for auto loan $582.70. Keeley is very grateful for this assistance. She is sending me gas receipts , so I can reapply to [facility] for more support with gas expenses to . Roselyn Sánchez documented in this encounter Plan of Treatment Upcoming Encounters Date Type Department Care Team (Late st Contact Info) Description 04/09/2024 4:15 PM EST TH Visit (TeleHealth) Hematology [place] [address] Jean-Pierre Peña MD [facility] [place] [address] 04/13/2024 2:30 PM EST Infusion Hematology Oncology at [address] [phone] 04/30/2024 12:15 PM EST Laboratory Appointment Lab at [facility] Hematology Oncology [address] [place] [phone] 04/30/2024 1:15 PM EST Office Visit Hematology and Oncology at [place] [phone] Jean-Pierre Peña MD [facility] DR [place] [address] Vicky Burnham APRN [facility] [place] [address] 04/30/2024 2:30 PM EST Appointment Hematology [place] [address] 05/22/2024 9:15 AM EST Laboratory Appointment Lab at [facility] Hematology Oncology [address] [place] [phone] 05/22/2024 10:[address] [place] [phone] Jean-Pierre Peña MD [facility] DR [place] [address] 05/22/2024 11:30 AM EST Office Visit Dermatology at [address] [phone] Inderjit Vilchis MD [facility] DR GILBERTO [place] [address] 05/22/2024 2:00 PM EST Office Visit Hematology [place] [phone] Jean-Pierre Peña MD [facility] DR [place] [address] 05/22/2024 3:30 PM EST Appointment Hematology [place] [address] 06/11/2024 4:15 PM EST TH Visit (TeleHealth) Hematology [place] [address] Jean-Pierre Peña MD [facility] DR [place] [address] 06/12/2024 8:30 AM EST Infusion Hematology Oncology at [address] [phone] documented as of this encounter Visit Diagnoses Not on filedocumented in this encounter Care Teams Processing Operator Relationship Specialty Start Date End Date Taylor Bryant APRN [address] [place] [address] PCP - General 03/31/10 documented as of this encounter
--- OUTSIDE RECORDS SUMMARY | 2024-04-02 14:00 | XMS_ITS | Encounter Summary ---
Author Organization [facility] Address [facility] [place] [address] Care Team Providers Care Welfare Adviser Name Role Phone Taylor Bryant ZARA Primary Care Provider [phone] [phone] Reason for Visit * Reason Comments Follow-up Encounter Details Date Type Department Care Team ([facility] st Contact Info) Description 10/24/2023 8:45 AM EDT Office Visit [place]ematology [place] [address] Jean-Pierre Peña MD [facility] DR [place] [address] Vicky Burnham APRN [facility] [place] [address] Malignant melanoma of scalp (Primary Dx); Secondary [...] Recorded In the past 12 months has [employer], gas, oil, or water company threatened [...] encounter Progress Notes * Chacha Vicky M, PLASTIC MOULD MAKER - 10/24/2023 8:45 AM EDT Images from the original note were not included. [facility] NOTE REFERING PHYSICIAN: DIAGNOSIS: Right [...] performed by Castro Preciado MD at [facility] MAIN OR PRO BX/REMV, LYMPH NODE, DEEP CERV Right 09/16/2023 BIOPSY OR EXCISION OF LYMPH NODE(S), OPEN, DEEP CERVICAL NODES (WRVU 6.74) performed by Castro Preciado MD at [facility] MAIN OR PRO RADICAL RESECT OF TUMOR, SOFT TISSUE FACE OR SCALP, 2CM OR GREATER Right 09/16/2023 RADICAL RESECTION TUMOR SCALP; >2 CM (WRVU 15.26) performed by Castro Preciado MD at [facility] MAIN OR PRO SPLIT GRFT, HEAD, FAC, HAND, FEET <100SQCM Right 09/28/2023 SPLIT THICKNESS SKIN SPLIT GRAFT,100SQ CM OR LESS, NECK (WRVU 10.15) performed by Castro Preciado MD at [facility] MAIN OR TUBAL LIGATION MEDS: FLUoxetine, [...] TH Visit (TeleHealth) Hematology [place] [address] Jean-Pierre Peña MD [facility] DR [place] [address] 04/13/2024 2:30 PM EST Infusion Hematology Oncology at [address] [phone] 04/30/2024 12:15 PM EST Laboratory Appointment Lab at [facility] Hematology Oncology [address] [place] [phone] 04/30/2024 1:15 PM EST Office Visit Hematology [place] [address] Jean-Pierre Peña MD [facility] DR [place] [address] Vicky Burnham APRN [facility] [place] [address] 04/30/2024 2:30 PM EST Appointment Hematology [place] [address] 05/22/2024 9:15 AM EST Laboratory Appointment Lab at [facility] Hematology Oncology [address] [place] [phone] 05/22/2024 10:[address] [place] [place] [address] Jean-Pierre Peña MD [facility] DR [place] [address] 05/22/2024 11:30 AM EST Office Visit Dermatology at [facility] [address] [place] [phone] Inderjit Vilchis MD [facility] DR GILBERTO [place] [address] 05/22/2024 2:00 PM EST Office Visit Hematology [place] [address] Jean-Pierre Peña MD [facility] DR [place] [address] 05/22/2024 3:30 PM EST Appointment Hematology [place] [address] 06/11/2024 4:15 PM EST TH Visit (TeleHealth) Hematology [place] [address] Jean-Pierre Peña MD [facility] DR [place] [address] 06/12/2024 8:30 AM EST Infusion Hematology Oncology at [address] [phone] documented as of this encounter Visit Diagnoses Diagnosis Malignant melanoma of scalp- Primary Malignant melanoma of skin of scalp and neck Secondary malignancy of soft tissue Medication management Encounter for long-term (current) use of other medications Immunotherapy Reserved for inherently not codable concepts WITHOUT codable children documented in this encounter Care Teams Welfare Adviser Relationship Specialty Start Date End Date Taylor Bryant, PLASTIC MOULD MAKER [address] [place] [address] PCP - General 03/31/10 documented as of this encounter
--- OUTSIDE RECORDS SUMMARY | 2024-04-02 14:00 | XMS_ITS | Encounter Summary ---
Author Organization [facility] Address [facility] [place] [address] Care Team Providers Care Patrol Commander Name Role Phone AnnetteTaylor ZARA Primary Care Provider [phone] [phone] Encounter Details Date Type Department Care Team ([facility] st Contact Info) Description 11/29/2023 Orders Only Hematology [place] [address] Vicky Burnham TAPE RECORDING MACHINE OPERATOR [facility] [place] [address] Social History Tobacco Use Types Packs/Day Years [...] TH Visit (TeleHealth) Hematology [place] [address] Jean-Pierre Peña MD [facility] DR [place] [address] 04/13/2024 2:30 PM EST Infusion Hematology Oncology at [address] [phone] 04/30/2024 12:15 PM EST Laboratory Appointment Lab at [facility] Hematology Oncology [address] [place] [phone] 04/30/2024 1:15 PM EST Office Visit Hematology [place] [address] Jean-Pierre Peña MD [facility] DR HEMATOLOGY [place] [address] Vicky Burnham APRN [facility] [place] [address] 04/30/2024 2:30 PM EST Appointment Hematology and Oncology at [place] [address] 05/22/2024 9:15 AM EST Laboratory Appointment Lab at [facility] Hematology [place] [phone] 05/22/2024 10:[address] Scan at [place] [phone] Jean-Pierre Peña MD [facility] DR HEMATOLOGY [place] [address] 05/22/2024 11:30 AM EST Office Visit Dermatology at [address] [phone] Inderjit Vilchis MD [facility] DR GILBERT[place] [address] 05/22/2024 2:00 PM EST Office Visit Hematology and Oncology at [place] [phone] Jean-Pierre Peña MD [facility] [place] [address] 05/22/2024 3:30 PM EST Appointment Hematology [place] [phone] 06/11/2024 4:15 PM EST TH Visit (TeleHealth) Hematology and Oncology at [place] [phone] Jean-Pierre Peña MD [facility] DR HEMATOLOGY [place] [address] 06/12/2024 8:30 AM EST Infusion Hematology Oncology at [address] [phone] documented as of this encounter Visit Diagnoses Not on filedocumented in this encounter Care Teams Patrol Commander Relationship Specialty Start Date End Date Taylor Bryant APRN [address] [place] [address] PCP - General 03/31/10 documented as of this encounter
--- OUTSIDE RECORDS SUMMARY | 2024-04-02 14:00 | XMS_ITS | Encounter Summary ---
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 [place] [address] Jean-Pierre Peña MD [facility] [place] [address] Referral ID Status Reason Start Date Expiration Date V isits Requested Visits Authorized [id number] Authorized 07/25/2023 07/24/2024 99 99 Encounter Details Date Type Department Care Team (Latest Contact Info) Description 11/14/2023 7:19 AM EDT - 11/14/2023 11:59 PM EDT Hospital Encounter [place] [address] Medication management; Malignant melanoma of scalp; Malignant [...] in a long-term (including now)? No 07/24/2023 DH IPV Inpatient [...] BSA by Hailey Redmond RN and a [facility] pharmacist. Chemotherapy administered per protocol. REACTIONS (DESCRIPTION, [...] TH Visit (TeleHealth) [place] [address] Jean-Pierre Peña MD [facility] [address] [place] [address] 04/13/2024 2:30 PM EST Infusion Hematology Oncology at [address] [address] 04/30/2024 12:15 PM EST Laboratory Appointment Lab at [facility] Hematology Oncology [address] [place] [phone] 04/30/2024 1:15 PM EST Office Visit Hematology and Oncology at [place] [phone] Jean-Pierre Peña MD [facility] [place] [address] Vicky Burnham APRN [facility] [place] [address] 04/30/2024 2:30 PM EST Appointment Hematology [place] [address] 05/22/2024 9:15 AM EST Laboratory Appointment Lab at [facility] Hematology Oncology [address] [place] [phone] 05/22/2024 10:[address] Scan at [place] [phone] Jean-Pierre Peña MD [facility] [place] [address] 05/22/2024 11:30 AM EST Office Visit Dermatology at [address] [phone] Inderjit Vilchis MD [facility] DR [place] [address] 05/22/2024 2:00 PM EST Office Visit [place]ematology [place] [phone] Jean-Pierre Peña MD [facility] [place] [address] 05/22/2024 3:30 PM EST Appointment [place]emat[place] [address] 06/11/2024 4:15 PM EST TH Visit (TeleHealth) [place] [phone] Jean-Pierre Peña MD [facility] [address] [place] [address] 06/12/2024 8:30 AM EST Infusion Hematology Oncology at [address] [phone] documented as of this encounter Results * Lactate Dehydrogenase (11/14/2023 7:34 AM EDT) Lactate Dehydrogenase 165 110 - 220 unit/L [facility] Blood 11/14/2023 7:34 AM EDT 11/14/2023 7:45 AM EDT Narrative Resulting Agency Comment Spec In Lab Jean-Pierre Peña MD CHEMISTRY ORDERABLES Performing Organization Address City/[facility]/ZIP Co de Phone Number [facility] [address] * T4, free (11/14/2023 7:34 AM EDT) Free T4 1.20 0.93 - 1.70 ng/dL [facility] Comment: Reference Interval (ng/dL): Females: ??First Trimester: 0.97-1.68 ??Second Trimester: 0.77-1.51 ??Third Trimester: 0.77-1.49 Blood 11/14/2023 7:34 AM EDT 11/14/2023 7:45 AM EDT Narrative Resulting Agency Comment Spec In Lab Jean-Pierre Peña MD CHEMISTRY ORDERABLES [facility] [place] [address] * TSH (11/14/2023 7:34 AM EDT) Thyroid Stimulating Hormone 0.97 0.27 - 4.20 mcIU/mL [facility] Comment: Reference Interval (mcIU/mL): Females: ??First Trimester: 0.23-3.88 ??Second Trimester: 0.22-3.90 ??Third Trimester: 0.44-4.66 Blood 11/14/2023 7:34 AM EDT 11/14/2023 7:45 AM EDT Narrative Resulting Agency Comment Spec In Lab Jean-Pierre Peña MD CHEMISTRY ORDERABLES [facility] [place] [address] * (ABNORMAL) Comprehensive metabolic panel (non-fasting) (11/14/2023 7:34 AM EDT) Pathologist [facility] Glucose 103 65 - 199 mg/dL [facility] Comment:Diabetes: >=200 mg/d L plus symptoms Blood Urea Nitrogen 24(H) 8 - 18 mg/dL [facility] Creatinine 0.92 0.70 - 1.20 mg/dL [facility] Sodium 142 135 - 145 mmol/L [facility] Potassium 4.1 3.5 - 5.0 mmol/L [facility] Comment: Please note: ??Patients with WBC >100,000 may have falsely elevated Potassium levels. ??For accurate Potassium quantification in these patients send serum separator tube (gold top) for subsequent determinations. ??Contact the Clinical Chemistry Laboratory if there are any questions. Chloride 109(H) 98 - 107 mmol/L [facility] Carbon Dioxide 24 22 - 31 mmol/L [facility] Anion Gap 9 5 - 15 mmol/L [facility] Calcium 9.3 8.5 - 10.5 mg/dL [facility] Protein, Total 6.4 6.1 - 8.0 g/dL [facility] Albumin 3.8 3.2 - 5.2 g/dL [facility] Aspartate Aminotransferase 13 0 - 30 unit/L [facility] Alanine Aminotransferase 9 0 - 30 unit/L [facility] Alkaline Phosphatase 75 35 - 105 unit/L [facility] Bilirubin, Total 0.3 0.2 - 1.3 mg/dL [facility] Est Glomerular Filtration Rate 72 >=60 mL/min/1. 73 m?? [facility] [...] CHEMISTRY ORDERABLES [facility] [place] [address] documented in this encounter Visit Diagnoses Diagnosis [...] mL/hr documented in this encounter Care Teams Construction Sales Representative Relationship Specialty Start Date End Date Taylor Bryant APRN [address] [place] [address] PCP - General 03/31/10 documented as of this encounter
--- OUTSIDE RECORDS SUMMARY | 2024-04-02 14:00 | XMS_ITS | Encounter Summary ---
Author Organization [facility] Address [facility] [place] [address] Care Team Providers Care Board Catcher Name Role Phone Taylor Bryant APRN Primary Care Provider [phone] [phone] Encounter Details Date Type Department Care Team ([facility] st Contact Info) Description 10/25/2023 Telephone [place] [phone] Roselyn Sánchez Social History Tobacco Use Types Packs/Day Years Used Date Smoking Tobacco: Former Smokeless Tobacco: Never Comments:quit at age 35 Alcohol Use Standard Drinks/Week Comments Yes 0 (1 standard drink = 0.6 oz pur e alcohol) social gatherings [facility] Utilities Answer Date Recorded In the [...] - 10/25/2023 2:52 PM EDT [facility] [employer] spoke to Keeley to notify her that MARY awarded a $150 [employer] gift card. Roselyn Sánchez documented in this encounter Plan of Treatment Upcoming Encounters Date Type Department Care Team (Late st Contact Info) Description 04/09/2024 4:15 PM EST TH Visit (TeleHealth) [place] [address] Jean-Pierre Peña MD [facility] [place] [address] 04/13/2024 2:30 PM EST Infusion Hematology Oncology at [address] [phone] 04/30/2024 12:15 PM EST Laboratory Appointment Lab at [facility] Hematology Oncology [address] [place] [phone] 04/30/2024 1:15 PM EST Office Visit Hematology and Oncology at [place] [phone] Jean-Pierre Peña MD [facility] DR [place] [address] Vicky Burnham APRN [facility] [place] [address] 04/30/2024 2:30 PM EST Appointment Hematology and Oncology at [address] 05/22/2024 9:15 AM EST Laboratory Appointment Lab at [facility] Hematology [address] [address] 05/22/2024 10:[address] Scan at [place] [phone] Jean-Pierre Peña MD [facility] DR [place] [address] 05/22/2024 11:30 AM EST Office Visit Dermatology at [address] [phone] Inderjit Vilchis MD [facility] DR GILBERTO [place] [address] 05/22/2024 2:00 PM EST Office Visit [place] [address] Jean-Pierre Peña MD [facility] [place] [address] 05/22/2024 3:30 PM EST Appointment [place] [address] 06/11/2024 4:15 PM EST TH Visit (TeleHealth) [place] [address] Jean-Pierre Peña MD [facility] DR [place] [address] 06/12/2024 8:30 AM EST Infusion Hematology Oncology at [address] [phone] documented as of this encounter Visit Diagnoses Not on filedocumented in this encounter Care Teams Board Catcher Relationship Specialty Start Date End Date Taylor Bryant APRN [address] [place] [address] PCP - General 03/31/10 documented as of this encounter
--- OUTSIDE RECORDS SUMMARY | 2024-04-02 14:00 | XMS_ITS | Encounter Summary ---
Author Organization [facility] Address [facility] [place] [address] Care Team Providers Care Medical Appliance Maker Name Role Phone Taylor Bryant APRN Primary Care Provider +1 [phone] Reason for Visit * Reason Comments Follow-up Things are good. She is hoping that the eulalia and other things off her head. The skin draft area is doing good. Encounter Details Date Type Department Care Team ([facility] Contact Info) Description 10/13/2023 2:30 PM EDT Office [place] [address] Norm Joy PA [facility] [place] [address] Malignant melanoma of scalp Social History Tobacco Use Types Packs/Day Years Used Date Smoking Tobacco: Former Smokeless Tobacco: Never Comments:quit at age 35 Alcohol Use Standard Drinks/Week Comments Yes 0 (1 standard drink = 0.6 oz pur e alcohol) social gatherings [facility] Utilities Answer Date Recorded In the past 12 months has e electric, gas, oil, or water [employer] threatened to shut off services in your [...] Joy PA - 10/13/2023 2:30 PM EDT [facility] OTOLARYNGOLOGY FOLLOW UP NOTE Keeley Gutierrez is [...] of Lymph Nodes Examined: 6 Number of [place] Nodes Examined: 0 Pathologic Stage Classification (pTNM, [...] in Ms. Gutierrez's care. Norm Joy PA-C [place], [place] [address] Office 10/13/2023 documented in this encounter Plan of Treatment Upcoming Encounters Date Type Department Care Team (Late st Contact Info) Description 04/09/2024 4:15 PM EST TH Visit (TeleHealth) [place] [address] Jean-Pierre Peña MD [facility] [address] [place] [address] 04/13/2024 2:30 PM EST Infusion Hematology Oncology at [address] [phone] 04/30/2024 12:15 PM EST Laboratory Appointment Lab at [facility] Hematology Oncology [address] [place] [phone] 04/30/2024 1:15 PM EST Office Visit Hematology [place] [address] Jean-Pierre Peña MD [facility] [address] [place] [address] Vicky Burnham APRN [facility] [place] [place] [address] 04/30/2024 2:30 PM EST Appointment Hematology [place] [address] 05/22/2024 9:15 AM EST Laboratory Appointment Lab at [facility] Hematology Oncology [address] [place] [phone] 05/22/2024 10:[address] [place] [place] [address] Jean-Pierre Peña MD [facility] [address] [place] [address] 05/22/2024 11:30 AM EST Office Visit Dermatology at [address] [phone] Inderjit Vilchis MD [facility] [place] [address] 05/22/2024 2:00 PM EST Office Visit [place]ematology [place] [address] Jean-Pierre Peña MD [facility] [place] [address] 05/22/2024 3:30 PM EST Appointment Hematology [place] [address] 06/11/2024 4:15 PM EST TH Visit (TeleHealth) [place] [address] Jean-Pierre Peña MD [facility] [place] [address] 06/12/2024 8:30 AM EST Infusion Hematology Oncology at [address] [phone] documented as of this encounter Visit Diagnoses Diagnosis Malignant melanoma of scalp Malignant melanoma of skin of scalp and neck documented in this encounter Care Teams Medical Appliance Maker Relationship Specialty Start Date End Date Taylor Bryant APRN [address] [place] [address] PCP - General 03/31/10 documented as of this encounter
--- OUTSIDE RECORDS SUMMARY | 2024-04-02 14:00 | XMS_ITS | Encounter Summary ---
Author Organization [facility] [place] [address] Care Team Providers Care Produce Wrapper Name Role Phone Taylor Bryant APRN Primary Care Provider [phone] [phone] Encounter Details Date Type Department Care Team ([facility] st Contact Info) Description 12/06/2023 Telephone Hematology [place] [phone] Gianna Sanabria RN Social History Tobacco Use Types Packs/Day Years Used Date Smoking Tobacco: Former Smokeless Tobacco: Never Comments:quit at age 35 Alcohol Use Standard Drinks/Week Comments Yes 0 (1 standard drink = 0.6 oz pur e alcohol) social gatherings [facility] Utilities Answer Date Recorded In the past [...] a skilled nursing (including now)? No 07/24/2023 IPV Inpatient Questions [...] to Farhan to request lab result from [facility] CMP resulted and message send to Dr Peña and Lucina to review. Chloride 108 Message will be send to after hours nurse to enter labs. documented in this encounter Plan of Treatment Upcoming Encounters Date Type Department Care Team (Late st Contact Info) Description 04/09/2024 4:15 PM EST TH Visit (TeleHealth) [place] [address] Jean-Pierre Peña MD [facility] HEMATOLOGY [place] [address] 04/13/2024 2:30 PM EST Infusion Hematology Oncology at [address] [phone] 04/30/2024 12:15 PM EST Laboratory Appointment Lab at [facility] Hematology Oncology [address] [place] [phone] 04/30/2024 1:15 PM EST Office Visit Hematology and Oncology at [place] [phone] Jean-Pierre Peña MD [facility] DR HEMATOLOGY [place] [address] Vicky Burnham APRN [facility] [place] [address] 04/30/2024 2:30 PM EST Appointment Hematology [place] [address] 05/22/2024 9:15 AM EST Laboratory Appointment Lab at [facility] Hematology Oncology [address] [place] [phone] 05/22/2024 10:[address] Scan at [place] [phone] Jean-Pierre Peña MD [facility] DR HEMATOLOGY [place] [address] 05/22/2024 11:30 AM EST Office Visit Dermatology at [address] [phone] Inderjit Vilchis MD [facility] DR GILBERTO [place] [address] 05/22/2024 2:00 PM EST Office Visit Hematology [place] [phone] Jean-Pierre Peña MD [facility] DR HEMATOLOGY [place] [address] 05/22/2024 3:30 PM EST Appointment Hematology [place] [address] 06/11/2024 4:15 PM EST TH Visit (TeleHealth) [place] [address] Jean-Pierre Peña MD [facility] DR HEMATOLOGY [place] [address] 06/12/2024 8:30 AM EST Infusion Hematology Oncology at [address] [phone] documented as of this encounter Visit Diagnoses Not on filedocumented in this encounter Care Teams Produce Wrapper Relationship Specialty Start Date End Date Taylor Bryant APRN [address] [place] [address] PCP - General 03/31/10 documented as of this encounter
--- OUTSIDE RECORDS SUMMARY | 2024-04-02 14:00 | XMS_ITS | Encounter Summary ---
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, unspecified lymph node region Discharge Disposition: Home Social History Tobacco Use Types Packs/Day Years Used Date Smoking Tobacco: Former Smokeless Tobacco: Never Comments:quit at age 35 Alcohol Use Standard Drinks/Week Comments Yes 0 (1 standard drink = 0.6 oz pur e alcohol) social gatherings [facility] Utilities Answer Date Recorded In the past [...] TH Visit (TeleHealth) Hematology [place] [address] Jean-Pierre Peña MD [facility] [place] [address] 04/13/2024 2:30 PM EST Infusion Hematology Oncology at [address] [phone] 04/30/2024 12:15 PM EST Laboratory Appointment Lab at [facility] Hematology Oncology [address] [place] [phone] 04/30/2024 1:15 PM EST Office Visit Hematology [place] [phone] Jean-Pierre Peña MD [facility] [place] [address] Vicky Burnham APRN [facility] [place] [address] 04/30/2024 2:30 PM EST Appointment Hematology [place] [address] 05/22/2024 9:15 AM EST Laboratory Appointment Lab at [facility] Hematology Oncology [address] [place] [phone] 05/22/2024 10:[address] [place] [phone] Jean-Pierre Peña MD [facility] [place] [address] 05/22/2024 11:30 AM EST Office Visit Dermatology at [address] [phone] Inderjit Vilchis MD [facility] DR GILBERT[place] [address] 05/22/2024 2:00 PM EST Office Visit Hematology [place] [address] Jean-Pierre Peña MD [facility] [place] [address] 05/22/2024 3:30 PM EST Appointment Hematology and Oncology at [facility] [place] [address] 06/11/2024 4:15 PM EST TH Visit (TeleHealth) Hematology and Oncology at [facility] [place] [address] Jean-Pierre Peña MD [facility] [address] [place] [address] 06/12/2024 8:30 AM EST Infusion Hematology Oncology at [address] [phone] documented as of this encounter Procedures Procedure [...] * Differential, Automated (11/14/2023 7:34 AM EDT) Pathologist [facility] Neutrophil % 66.6 % [facility] Neutrophil Absolute 4.70 1.70 - 6.10 x10(3)/[facility] Lymph % 18.0 % [facility] Lymphocytes Abs 1.3 0.9 - 3.2 x10(3)/[facility] Monocyte % 9.6 % [facility] Monocyte Abs 0.7 0.3 - 0.9 x10(3)/[facility] Eos % 4.7 % [facility] Eosinophils Abs 0.3 0.0 - 0.4 x10(3)/[facility] Basophil % 0.7 % [facility] Baso Absolute 0.0 0.0 - 0.1 x10(3)/[facility] Immature Gran % 0.40 % [facility] Comment: Immature granulocytes(IG's)percentage and absolute count will include metamyelocytes, myelocytes, and promyelocytes. Blood smears from CBCs yielding IG's will be scanned manually for concordance. If this scan disagrees with the automated IG or if promyelocytes are noted, a manual differential will be performed. Immature Gran Absolute 0.03 0.00 - 0.04 x10(3)/[facility] Blood 11/14/2023 7:34 AM EDT 11/14/2023 7:45 AM EDT Narrative Resulting Agency Comment Spec In Lab Jean-Pierre Peña MD HEMATOLOGY ORDERABLE S [facility] [place] [address] * (ABNORMAL) Hemogram (11/14/2023 7:34 AM EDT) Pathologist [facility] White Blood Cell 7.1 4.0 - 9.5 x10(3)/mc L [facility] Red Blood Cell 3.90(L) 4.00 - 5.21 x10(6)/mc L [facility] Hemoglobin 11.7 11.7 - 15.5 g/dL [facility] Hematocrit 35.8 35.7 - 45.8 % [facility] Mean Cell Volume 91.8 82.6 - 94.4 fL [facility] Mean Cell Hemoglobin 30.0 27.1 - 32.0 pg [facility] Mean Cell Hemoglobin Concentration 32.7 31.7 - 35.0 g/dL [facility] Platelet 295 145 - 357 x10(3)/ L [facility] RDW Standard Deviation 47.1(H) 37.0 - 46.0 [facility] RDW coefficient of variation 14.0 11.5 - 14.1 % [facility] Mean Platelet Volume 10.8 7.6 - 12.9 [facility] NRBC% auto 0.0 % [facility] NRBC Absolute 0.000 0.000 - 0.000 x10(3)/ L [facility] Blood 11/14/2023 7:34 AM EDT 11/14/2023 7:45 AM EDT Narrative Resulting Agency Comment Spec In Lab Jean-Pierre Peña MD HEMATOLOGY ORDERABLE S [facility] [place] [address] * (ABNORMAL) Comprehensive metabolic panel (non-fasting) (11/14/2023 7:34 AM EDT) Glucose 103 65 - 199 mg/dL [facility] Comment:Diabetes: >=200 mg/d L plus symptoms Blood Urea Nitrogen 24(H) 8 - 18 mg/dL [facility] Creatinine 0.92 0.70 - 1.20 mg/dL [facility] Sodium 142 135 - 145 mmol/L [facility] Potassium 4.1 3.5 - 5.0 mmol/L [facility] Comment: Please note: ??Patients with WBC >100,000 may have falsely elevated Potassium levels. ??For accurate Potassium quantification in these patients send serum separator tube (gold top) for subsequent determinations. ??Contact the Clinical Chemistry Laboratory if there are any questions. Chloride 109(H) 98 - 107 mmol/L [facility] Carbon Dioxide 24 22 - 31 mmol/L [facility] Anion Gap 9 5 - 15 mmol/L [facility] Calcium 9.3 8.5 - 10.5 mg/dL [facility] Protein, Total 6.4 6.1 - 8.0 g/dL [facility] Albumin 3.8 3.2 - 5.2 g/dL [facility] Aspartate Aminotransferase 13 0 - 30 unit/L [facility] Alanine Aminotransferase 9 0 - 30 unit/L [facility] Alkaline Phosphatase 75 35 - 105 unit/L [facility] Bilirubin, Total 0.3 0.2 - 1.3 mg/dL [facility] Est Glomerular Filtration Rate 72 >=60 mL/min/1. 73 m?? [facility] [...] CHEMISTRY ORDERABLES [facility] [place] [address] * TSH (11/14/2023 7:34 AM EDT) Thyroid Stimulating Hormone 0.97 0.27 - 4.20 mcIU/mL [facility] Comment: Reference Interval (mcIU/mL): Females: ??First Trimester: 0.23-3.88 ??Second Trimester: 0.22-3.90 ??Third Trimester: 0.44-4.66 Blood 11/14/2023 7:34 AM EDT 11/14/2023 7:45 AM EDT Narrative Resulting Agency Comment Spec In Lab Jean-Pierre Peña MD CHEMISTRY ORDERABLES Performing Organization Address [facility] Co de Phone Number [facility] [place] [address] * T4, free (11/14/2023 7:34 AM EDT) Free T4 1.20 0.93 - 1.70 ng/dL [facility] Comment: Reference Interval (ng/dL): Females: ??First Trimester: 0.97-1.68 ??Second Trimester: 0.77-1.51 ??Third Trimester: 0.77-1.49 Blood 11/14/2023 7:34 AM EDT 11/14/2023 7:45 AM EDT Narrative Resulting Agency Comment Spec In Lab Jean-Pierre Peña MD CHEMISTRY ORDERABLES Performing Organization Address City/[facility] Co de Phone Number [facility] [place] [address] * Lactate Dehydrogenase (11/14/2023 7:34 AM EDT) Lactate Dehydrogenase 165 110 - 220 unit/L [facility] Blood 11/14/2023 7:34 AM EDT 11/14/2023 7:45 AM EDT Narrative Resulting Agency Comment Spec In Lab Jean-Pierre Peña MD CHEMISTRY ORDERABLES [facility] [place] [address] documented in this encounter Visit Diagnoses Diagnosis Medication management Encounter for long-term (current) use of other medications Malignant melanoma of scalp Malignant melanoma of skin of scalp and neck 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
--- OUTSIDE RECORDS SUMMARY | 2024-04-02 14:00 | XMS_ITS | Encounter Summary ---
Author Organization [facility] Address [facility] [place] [address] Care Team Providers Care Metal Milling Machine Operator Name Role Phone Taylor Bryant APRN Primary Care Provider +1 -[phone] Encounter Details Date Type Department Care Team ([facility] st Contact Info) Description 10/06/2023 Notes Only Hematology [place] [phone] Luma Bernal, RD [facility] [place] [address] Social History Tobacco Use Types Packs/Day Years [...] Bernal RD - 10/06/2023 3:53 PM EDT [facility] Food Pantry Note Pt received food from the [facility] pantry today. It has been determined that the patient has food insecurity and/or dietary needs. The following action has been taken: Prescribed visit(s) to onsite Food is Medicine Service documented in this encounter Plan of Treatment Upcoming Encounters Date Type Department Care Team (Late st Contact Info) Description 04/09/2024 4:15 PM EST TH Visit (TeleHealth) Hematology [place] [address] Jean-Pierre Peña MD [facility] HEMATOLOGY [place] [address] 04/13/2024 2:30 PM EST Infusion Hematology Oncology at [address] [address] 04/30/2024 12:15 PM EST Laboratory Appointment Lab at [facility] Hematology Oncology [address] [place] [phone] 04/30/2024 1:15 PM EST Office Visit Hematology [place] [phone] Jean-Pierre Peña MD [facility] DR HEMATOLOGY [place] [address] Vicky Burnham APRN [facility] DR [place] [address] 04/30/2024 2:30 PM EST Appointment Hematology [place] [address] 05/22/2024 9:15 AM EST Laboratory Appointment Lab at [facility] Hematology Oncology [address] [place] [phone] 05/22/2024 10:[address] [place] [phone] Jean-Pierre Peña MD [facility] HEMATOLOGY [place] [address] 05/22/2024 11:30 AM EST Office Visit Dermatology at [address] [phone] Inderjit Vilchis MD [facility] DR GILBERTO STERLING[place] [address] 05/22/2024 2:00 PM EST Office Visit Hematology [place] [address] Jean-Pierre Peña MD [facility] DR HEMATOLOGY [place] [address] 05/22/2024 3:30 PM EST Appointment Hematology [place] [address] 06/11/2024 4:15 PM EST TH Visit (TeleHealth) Hematology [place] [phone] Jean-Pierre Peña MD [facility] DR HEMATOLOGY [place] [address] 06/12/2024 8:30 AM EST Infusion Hematology Oncology at [address] [phone] documented as of this encounter Visit Diagnoses Not on filedocumented in this encounter Care Teams Metal Milling Machine Operator Relationship Specialty Start Date End Date Taylor Bryant APRN [address] [place] [address] PCP - General 03/31/10 documented as of this encounter
--- OUTSIDE RECORDS SUMMARY | 2024-04-02 14:00 | XMS_ITS | Encounter Summary ---
Author Organization [facility], Later [facility] Address [facility] [place] [address] Care Team Providers Care Substance Abuse Prevention Coordinator Name Role Phone Taylor Bryant APRN Primary Care Provider [phone] [phone] Reason for Visit * Reason Comments Follow-up Doing well, no kareem rns at this time. Encounter Details Date Type Department Care Team ([facility] st Contact Info) Description 10/24/2023 9:30 AM EDT Office [place] [phone] Norm Joy PA [facility] [place] [address] Malignant melanoma of scalp Social History Tobacco Use Types Packs/Day Years Used Date Smoking Tobacco: Former Smokeless Tobacco: Never Comments:quit at age 35 Alcohol Use Standard Drinks/Week Comments Yes 0 (1 standard drink = 0.6 oz pur e alcohol) social gatherings [facility] Utilities Answer Date Recorded In the past 12 months has m-spatial, gas, oil, or water [employer] threatened to shut off services in your [...] Joy PA - 10/24/2023 9:30 AM EDT [facility] FOLLOW UP NOTE Keeley Gutierrez is [...] of Lymph Nodes Examined: 6 Number of Shelby Nodes Examined: 0 Pathologic Stage Classification (pTNM, [...] in Ms. Gutierrez's care. Norm Joy PA-C [place], [place] [address] Office 10/24/2023 documented in this encounter Plan of Treatment Upcoming Encounters Date Type Department Care Team (Late st Contact Info) Description 04/09/2024 4:15 PM EST TH Visit (TeleHealth) Hematology [place] [phone] Jean-Pierre Peña MD [facility] [place] [address] 04/13/2024 2:30 PM EST Infusion Hematology Oncology at [address] [phone] 04/30/2024 12:15 PM EST Laboratory Appointment Lab at [facility] Hematology Oncology [address] [place] [phone] 04/30/2024 1:15 PM EST Office Visit Hematology [place] [address] Jean-Pierre Peña MD [facility] [place] [address] Vicky Burnham APRN [facility] [place] [address] 04/30/2024 2:30 PM EST Appointment Hematology [place] [address] 05/22/2024 9:15 AM EST Laboratory Appointment Lab at [facility] Hematology Oncology [address] [place] [phone] 05/22/2024 10:[address] [place] [phone] Jean-Pierre Peña MD [facility] [place] [address] 05/22/2024 11:30 AM EST Office Visit Dermatology at [facility] [address] [place] [address] Inderjit Vilchis MD [facility] DR GIL[place] [address] 05/22/2024 2:00 PM EST Office Visit Hematology [place] [address] Jean-Pierre Peña MD [facility] [place] [address] 05/22/2024 3:30 PM EST Appointment Hematology [place] [address] 06/11/2024 4:15 PM EST TH Visit (TeleHealth) [place]ology [place] [address] Jean-Pierre Peña MD [facility] [place] [address] 06/12/2024 8:30 AM EST Infusion Hematology Oncology at [address] [phone] documented as of this encounter Visit Diagnoses Diagnosis 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
--- OUTSIDE RECORDS SUMMARY | 2024-04-02 14:00 | XMS_ITS | Encounter Summary ---
Author Organization [facility] Address [facility] [place] [address] Care Team Providers Care Erection Shop Supervisor Name Role Phone Taylor Bryant APRN Primary Care Provider [phone] [phone] Encounter Details Date Type Department Care Team (Latest Contact Info) Description 10/13/2023 Travel Social History Tobacco Use Types Packs/Day Years Used Date Smoking Tobacco: Former Smokeless Tobacco: Never Comments:quit at age 35 Alcohol Use Standard Drinks/Week Comments Yes 0 (1 standard drink = 0.6 oz pur e alcohol) social gatherings [facility] Utilities Answer Date Recorded In the [...] TH Visit (TeleHealth) [place]ematology [place] [address] Jean-Pierre Peña MD [facility] [place] [address] 04/13/2024 2:30 PM EST Infusion Hematology Oncology at [address] [phone] 04/30/2024 12:15 PM EST Laboratory Appointment Lab at [facility] Hematology Oncology [address] [place] [phone] 04/30/2024 1:15 PM EST Office Visit Hematology [place] [phone] Jean-Pierre Peña MD [facility] [place] [address] Vicky Burnham, PRINTING FILM STRIPPER [facility] [place] [address] 04/30/2024 2:30 PM EST Appointment Hematology [place] [address] 05/22/2024 9:15 AM EST Laboratory Appointment Lab at [facility] Hematology Oncology [address] [place] [phone] 05/22/2024 10:[address] Scan at [place] [phone] Jean-Pierre Peña MD [facility] DR [place] [address] 05/22/2024 11:30 AM EST Office Visit Dermatology at [address] [phone] Inderjit Vilchis MD [facility] DR GILBERTO [place] [address] 05/22/2024 2:00 PM EST Office Visit Hematology [place] [address] Jean-Pierre Peña MD [facility] [place] [address] 05/22/2024 3:30 PM EST Appointment [place]ematology [place] [address] 06/11/2024 4:15 PM EST TH Visit (TeleHealth) [place] [address] Jean-Pierre Peña MD [facility] [place] [address] 06/12/2024 8:30 AM EST Infusion Hematology Oncology at [address] [phone] documented as of this encounter Visit Diagnoses Not on filedocumented in this encounter Care Teams Erection Shop Supervisor Relationship Specialty Start Date End Date Taylor Bryant APRN [address] [place] [address] PCP - General 03/31/10 documented as of this encounter
--- OUTSIDE RECORDS SUMMARY | 2024-04-02 14:00 | XMS_ITS | Encounter Summary ---
Author Organization [facility] Address [facility] [address] Care Team Providers Care Ui Engineer Name Role Phone Taylor Bryant APRN Primary Care Provider [phone] [phone] Encounter Details Date Type Department Care Team [...] TH Visit (TeleHealth) Hematology [place] [address] Jean-Pierre Peña MD [facility] [place]AT[place] [address] 04/13/2024 2:30 PM EST Infusion Hematology Oncology at [address] [phone] 04/30/2024 12:15 PM EST Laboratory Appointment Lab at [facility] [place]emat[place] On[place] [address] [place] [phone] 04/30/2024 1:15 PM EST Office Visit Hematology [place] [phone] Jean-Pierre Peña MD [facility] [place]AT[place] [address] Vicky Burnham, PICKING MACHINE OPERATOR HELPER [facility] [place] [address] 04/30/2024 2:30 PM EST Appointment Hematology [place] [address] 05/22/2024 9:15 AM EST Laboratory Appointment Lab at [facility] Hematology Oncology [address] [place] [phone] 05/22/2024 10:[address] Scan at [place] [phone] Jean-Pierre Peña MD [facility] DR HEMATOLOGY [place] [address] 05/22/2024 11:30 AM EST Office Visit Dermatology at [address] [phone] Inderjit Vilchis MD [facility] DR GILBERTO [place] [address] 05/22/2024 2:00 PM EST Office Visit Hematology [place] [address] Jean-Pierre Peña MD [facility] [place]AT[place] [address] 05/22/2024 3:30 PM EST Appointment Hematology [place] [address] 06/11/2024 4:15 PM EST TH Visit (TeleHealth) Hematology [place] [address] Jean-Pierre Peña MD [facility] [place]OLOG[place] [address] 06/12/2024 8:30 AM EST Infusion Hematology Oncology at [address] [phone] documented as of this encounter Visit Diagnoses Not on filedocumented in this encounter Care Teams Ui Engineer Relationship Specialty Start Date End Date Taylor Bryant APRN [address] [place] [address] PCP - General 03/31/10 documented as of this encounter
--- OUTSIDE RECORDS SUMMARY | 2024-04-02 14:00 | XMS_ITS | Encounter Summary ---
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, unspecified lymph node region Discharge Disposition: Home Social History Tobacco Use Types Packs/Day Years Used Date Smoking Tobacco: Former Smokeless Tobacco: Never Comments:quit at age 35 Alcohol Use Standard Drinks/Week Comments Yes 0 (1 standard drink = 0.6 oz pur e alcohol) social gatherings [facility] Utilities Answer Date Recorded In [...] TH Visit (TeleHealth) Hematology [place] [address] Jean-Pierre Peña MD [facility] [place] [address] 04/13/2024 2:30 PM EST Infusion Hematology Oncology at [address] [address] 04/30/2024 12:15 PM EST Laboratory Appointment Lab at [facility] Hematology Oncology [address] [place] [phone] 04/30/2024 1:15 PM EST Office Visit Hematology [place] [phone] Jean-Pierre Peña MD [facility] [place] [address] iVcky Burnham APRN [facility] [place] [place] [address] 04/30/2024 2:30 PM EST Appointment Hematology [place] [address] 05/22/2024 9:15 AM EST Laboratory Appointment Lab at [facility] Hematology Oncology [address] [place] [phone] 05/22/2024 10:[address] [place] [phone] Jean-Pierre Peña MD [facility] [place] [address] 05/22/2024 11:30 AM EST Office Visit Dermatology at [address] [phone] Inderjit Vilchis MD [facility] DR GILBERT[place] [address] 05/22/2024 2:00 PM EST Office Visit Hematology [place] [address] Jean-Pierre Peña MD [facility] [address] [place] [address] 05/22/2024 3:30 PM EST Appointment [facility] [place] [address] 06/11/2024 4:15 PM EST TH Visit (TeleHealth) Hematology [place] [address] Jean-Pierre Peña MD [facility] [address] [place] [address] 06/12/2024 8:30 AM EST Infusion Hematology Oncology at [address] [phone] documented as of this encounter Procedures Procedure [...] (ABNORMAL) Differential, Automated (10/24/2023 7:48 AM EDT) Pathologist [facility] Neutrophil % 62.4 % [facility] Neutrophil Absolute 4.09 1.70 - 6.10 x10(3)/mc L [facility] Lymph % 21.8 % [facility] Lymphocytes Abs 1.4 0.9 - 3.2 x10(3)/mc L [facility] Monocyte % 9.2 % [facility] Monocyte Abs 0.6 0.3 - 0.9 x10(3)/ L [facility] Eos % 5.2 % [facility] Eosinophils Abs 0.3 0.0 - 0.4 x10(3)/[facility] Basophil % 0.6 % [facility] Baso Absolute 0.0 0.0 - 0.1 x10(3)/ L [facility] Immature Gran % 0.80 % [facility] Comment: Immature granulocytes(IG's)percentage and absolute count will include metamyelocytes, myelocytes, and promyelocytes. Blood smears from CBCs yielding IG's will be scanned manually for concordance. If this scan disagrees with the automated IG or if promyelocytes are noted, a manual differential will be performed. Immature Gran Absolute 0.05(H) 0.00 - 0.04 x10(3)/ L [facility] Blood 10/24/2023 7:48 AM EDT 10/24/2023 7:53 AM EDT Narrative Resulting Agency Comment Spec In Lab Jean-Pierre Peña MD HEMATOLOGY ORDERABLE S [facility] [place] [place] [address] * (ABNORMAL) Hemogram (10/24/2023 7:48 AM EDT) White Blood Cell 6.6 4.0 - 9.5 x10(3)/mc L [facility] Red Blood Cell 3.86(L) 4.00 - 5.21 x10(6)/mc L [facility] Hemoglobin 12.0 11.7 - 15.5 g/dL [facility] Hematocrit 35.5(L) 35.7 - 45.8 % [facility] Mean Cell Volume 92.0 82.6 - 94.4 fL [facility] Mean Cell Hemoglobin 31.1 27.1 - 32.0 pg [facility] Mean Cell Hemoglobin Concentration 33.8 31.7 - 35.0 g/dL [facility] Platelet 312 145 - 357 x10(3)/mc L [facility] RDW Standard Deviation 48.1(H) 37.0 - 46.0 fL [facility] RDW coefficient of variation 14.3(H) 11.5 - 14.1 % [facility] Mean Platelet Volume 10.9 7.6 - 12.9 fL [facility] NRBC% auto 0.0 % [facility] NRBC Absolute 0.000 0.000 - 0.000 x10(3)/mc L [facility] Blood 10/24/2023 7:48 AM EDT 10/24/2023 7:53 AM EDT Narrative Resulting Agency Comment Spec In Lab Jean-Pierre Peña MD HEMATOLOGY ORDERABLE S [facility] [place] [place] [address] * Lactate Dehydrogenase (10/24/2023 7:48 AM EDT) Lactate Dehydrogenase 194 110 - 220 unit/L [facility] Blood 10/24/2023 7:48 AM EDT 10/24/2023 7:53 AM EDT Narrative Resulting Agency Comment Spec In Lab Jean-Pierre Peña MD CHEMISTRY ORDERABLES Performing Organization Address City/[facility] Co de Phone Number [facility] [place] [address] * T4, free (10/24/2023 7:48 AM EDT) Free T4 1.26 0.93 - 1.70 ng/dL [facility] Comment: Reference Interval (ng/dL): Females: ??First Trimester: 0.97-1.68 ??Second Trimester: 0.77-1.51 ??Third Trimester: 0.77-1.49 Blood 10/24/2023 7:48 AM EDT 10/24/2023 7:53 AM EDT Narrative Resulting Agency Comment Spec In Lab Jean-Pierre Peña MD CHEMISTRY ORDERABLES Performing Organization Address [facility] Co de Phone Number [facility] [place] [address] * TSH (10/24/2023 7:48 AM EDT) Thyroid Stimulating Hormone 0.89 0.27 - 4.20 mcIU/mL [facility] Comment: Reference Interval (mcIU/mL): Females: ??First Trimester: 0.23-3.88 ??Second Trimester: 0.22-3.90 ??Third Trimester: 0.44-4.66 Blood 10/24/2023 7:48 AM EDT 10/24/2023 7:53 AM EDT Narrative Resulting Agency Comment Spec In Lab Jean-Pierre Peña MD CHEMISTRY ORDERABLES Performing Organization Address [facility] Co de Phone Number [facility] [address] * (ABNORMAL) Comprehensive metabolic panel (non-fasting) (10/24/2023 7:48 AM EDT) Glucose 99 65 - 199 mg/dL [facility] Comment:Diabetes: >=200 mg/d L plus symptoms Blood Urea Nitrogen 27(H) 8 - 18 mg/dL [facility] Creatinine 0.88 0.70 - 1.20 mg/dL [facility] Sodium 139 135 - 145 mmol/L [facility] Potassium 4.3 3.5 - 5.0 mmol/L [facility] Comment: Please note: ??Patients with WBC >100,000 may have falsely elevated Potassium levels. ??For accurate Potassium quantification in these patients send serum separator tube (gold top) for subsequent determinations. ??Contact the Clinical Chemistry Laboratory if there are any questions. Chloride 105 98 - 107 mmol/L [facility] Carbon Dioxide 22 22 - 31 mmol/L [facility] Anion Gap 12 5 - 15 mmol/L [facility] Calcium 9.5 8.5 - 10.5 mg/dL [facility] Protein, Total 6.8 6.1 - 8.0 g/dL [facility] Albumin 4.2 3.2 - 5.2 g/dL [facility] Aspartate Aminotransferase 25 0 - 30 unit/L [facility] Alanine Aminotransferase 31(H) 0 - 30 unit/L [facility] Alkaline Phosphatase 92 35 - 105 unit/L [facility] Bilirubin, Total 0.6 0.2 - 1.3 mg/dL [facility] Est Glomerular Filtration Rate 76 >=60 mL/min/1. 73 m?? 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
--- OUTSIDE RECORDS SUMMARY | 2024-04-02 14:01 | XMS_ITS | Encounter Summary ---
Author Organization [facility] Address [facility] [place] [address] Care Team Providers Care Finance Attorney Name Role Phone Taylor Bryant APRN Primary Care Provider [phone] [phone] Encounter Details Date Type Department Care Team ([facility] st Contact Info) Description 10/04/2023 Notes Only Hematology and Oncology at [facility] [place] [address] Roselyn Sánchez Social History Tobacco Use Types Packs/Day Years Used Date Smoking Tobacco: Former Smokeless Tobacco: Never Comments:quit at age 35 Alcohol Use Standard Drinks/Week Comments Yes 0 (1 standard drink = 0.6 oz pur e alcohol) social gatherings [facility] Utilities Answer Date Recorded In [...] - 10/04/2023 1:39 PM EDT [facility] Operating Room Surgical Technician submitted FRANC carcamo asking for assistance with [employer] autobill $582.70 and a [employer] gift card $150. Roselyn Sánchez documented in this encounter Plan of Treatment Upcoming Encounters Date Type Department Care Team (Late st Contact Info) Description 04/09/2024 4:15 PM EST TH Visit (TeleHealth) Hematology [place] [address] Jean-Pierre Peña MD [facility] [place] [address] 04/13/2024 2:30 PM EST Infusion Hematology Oncology at [address] [phone] 04/30/2024 12:15 PM EST Laboratory Appointment Lab at [facility] Hematology Oncology [address] [place] [phone] 04/30/2024 1:15 PM EST Office Visit Hematology and Oncology at [place] [phone] Jean-Pierre Peña MD [facility] DR [place] [address] Vicky Burnham APRN [facility] [place] [place] [address] 04/30/2024 2:30 PM EST Appointment Hematology and Oncology at [place] [phone] 05/22/2024 9:15 AM EST Laboratory Appointment Lab at [facility] Hematology Oncology [address] [place] [phone] 05/22/2024 10:[address] [place] [address] Jean-Pierre Peña MD [facility] DR [place] [address] 05/22/2024 11:30 AM EST Office Visit Dermatology at [address] [phone] Inderjit Vilchis MD [facility] DR GILBERT[place] [address] 05/22/2024 2:00 PM EST Office Visit Hematology [place] [phone] Jean-Pierre Peña MD [facility] [place] [address] 05/22/2024 3:30 PM EST Appointment Hematology [place] [address] 06/11/2024 4:15 PM EST TH Visit (TeleHealth) Hematology [place] [address] Jean-Pierre Peña MD [facility] [address] [place] [address] 06/12/2024 8:30 AM EST Infusion Hematology Oncology at [address] [phone] documented as of this encounter Visit Diagnoses Not on filedocumented in this encounter Care Teams Finance Attorney Relationship Specialty Start Date End Date Taylor Bryant APRN [address] [place] [address] PCP - General 03/31/10 documented as of this encounter
--- OUTSIDE RECORDS SUMMARY | 2024-04-02 14:01 | XMS_ITS | Encounter Summary ---
Author Organization [facility] Address [facility] [place] [address] Care Team Providers Care Network Consultant Name Role Phone Taylor Bryant APRN Primary Care Provider +1 [phone] Reason for Visit * Auth/Cert (Routine) Specialty Diagnoses / Procedures Referred By Crista pardon Referred To Contact Diagnoses Melanoma melanoma Procedures PRO EXC SKIN MALIG 3.1-4CM REMAINDR BODY PRO BX/REMV, LYMPH NODE, DEEP CERV EXC MALIGNANT LESION, 3.1. TO 4.0CM, SCALP (WRVU 3.62) BIOPSY OR EXCISION OF LYMPH NODE(S), OPEN, DEEP CERVICAL NODES (WRVU 6.74) Justa Preciado MD [facility] [place] [address] [facility] Referral ID Status Reason Start Date Expiration Date Visits Re quested Visits Authorized [id number] 1 1 Encounter Details Date Type Department Care Team (Late st Contact Info) Description 09/16/2023 12:45 PM EDT - 09/16/2023 3:30 PM EDT Surgery [place] [address] Justa Preciado MD [facility] DR [place], [place] [phone] RADICAL RESECTION TUMOR SCALP; >2 CM (WRVU 15.26) Social History Tobacco Use Types Packs/Day Years Used Date Smoking Tobacco: Former Smokeless Tobacco: Never Comments:quit at age 35 Alcohol Use Standard Drinks/Week Comments Yes 0 (1 standard drink = 0.6 oz pur e alcohol) social gatherings [facility] Utilities Answer Date Recorded In the past [...] -You can reach the ENT clinic at [phone] for appointment questions. -The ENT triage nurse is available at [phone] -For urgent issues during evenings (5 PM - 7 AM) and weekends the ENT resident electronic scale assembler and tester can be reached through the main hospital chief lock tender operator at [phone] Follow Up: You will need to follow [...] Department Dept Phone 10/04/2023 10:30 AM LABORATORY, [employer] Hematology and Oncology at [facility] Arrive at: Clinical Research Associate Area [phone] 10/04/2023 11:30 AM Jean-Pierre Peña MD Hematology and Oncology at [facility] Arrive at: Clinical Research Associate Area [phone] 10/04/2023 1:30 PM [facility] INFUSION THERAPY Hematology and Oncology at [facility] Arrive at: Clinical Research Associate Area [phone] 10/06/2023 1:00 PM Norm Joy PA Otolaryngology at [facility] Arrive at: Clinical Research Associate Area [phone] Please dispose of unused excess opioids before your appointment or bring them with you to the appointment and we will help you dispose of them correctly. 10/24/2023 7:45 AM LABORATORY, TECH Hematology and Oncology at [facility] Arrive at: Clinical Research Associate Area [phone] 10/24/2023 8:45 AM Jean-Pierre Peña MD Hematology and Oncology at [facility] Arrive at: Clinical Research Associate Area [phone] 10/24/2023 10:00 AM LEB INFUSION THERAPY Hematology and Oncology at [facility] Arrive at: Clinical Research Associate Area [phone] 11/14/2023 7:45 AM SHAI SMITH Hematology and Oncology at [facility] Arrive at: Clinical Research Associate Area [phone] 11/14/2023 8:45 AM Jean-Pierre Peña MD Hematology and Oncology at [facility] Arrive at: Clinical Research Associate Area [phone] 11/14/2023 10:00 AM LEB INFUSION THERAPY Hematology and Oncology at [facility] Arrive at: Clinical Research Associate Area [phone] 12/20/2023 2:15 PM Inderjit Vilchis MD Dermatology at [facility] Arrive at: Clinical Research Associate [address] [place] [address] documented in this encounter Medications at Time [...] 350 mg Capsule Take by mouth. 02/11/2024 dabrafenib (Tafinlar) 75 [...] Preciado MD - 09/16/2023 12:29 PM EDT [facility] Operative Note Patient Name: Keeley Guiterrez : [id number] MR#: [id number] Case Date: 09/16/2023 Surgeon: Surgeon(s) and Role: * Justa Preciado MD - Primary * Filippo Reilly MD - Resident - Assisting * Jordan Gonzalez PA - Physician Cutting Table Operator Preoperative diagnosis: melanoma Postoperative diagnosis: melanoma Procedure(s) [...] TH Visit (TeleHealth) Hematology [place] [address] Jean-Pierre Peña MD [facility] [place] [address] 04/13/2024 2:30 PM EST Infusion Hematology Oncology at [address] [address] 04/30/2024 12:15 PM EST Laboratory Appointment Lab at [facility] Hematology Oncology [address] [place] [phone] 04/30/2024 1:15 PM EST Office Visit Hematology and Oncology at [place] [phone] Jean-Pierre Peña MD [facility] DR HEMAT[place] [address] Vicky Burnham APRN [facility] [place] [address] 04/30/2024 2:30 PM EST Appointment Hematology and Oncology at [place] [phone] 05/22/2024 9:15 AM EST Laboratory Appointment Lab at [facility] Hematology [address] [address] 05/22/2024 10:[address] [place] [address] Jean-Pierre Peña MD [facility] DR HEMAT[place] [address] 05/22/2024 11:30 AM EST Office Visit Dermatology at [address] [address] Inderjit Vilchis MD [facility] DR GILBERTO [place] [address] 05/22/2024 2:00 PM EST Office Visit Hematology [place] [address] Jean-Pierre Peña MD [facility] [place] [address] 05/22/2024 3:30 PM EST Appointment Hematology [place] [address] 06/11/2024 4:15 PM EST TH Visit (TeleHealth) Hematology and Oncology at [place] [address] Jean-Pierre Peña MD [facility] DR HEMATOLOGY [place] [address] 06/12/2024 8:30 AM EST Infusion Hematology Oncology at [address] [address] documented as of this encounter Procedures Procedure [...] PM EDT Bx/Remv, Lymph Node, Deep Cerv (34407) 09/16/2023 11:48 AM EDT melanoma Radical/Resect Of Tumor, Soft Tissue Face Or Scalp, 2Cm Or Greater (04786) 09/16/2023 11:48 AM EDT melanoma BIOPSY OR EXC OF LYMPH NODES; OPEN, DEEP CERVICAL NODES Routine 09/16/2023 10:47 AM EDT documented in this encounter Results * Specimen to Pathology (09/16/2023 2:09 PM EDT) AP Specimen 09/16/2023 2:09 PM EDT 09/16/2023 2:09 PM EDT [facility] LABORATORY - 09/16/2023 2:09 PM EDT Specimen requisition ordered. ??Separate Pathology report to follow Underwood J Ozzy MD PATHOLOGY/CYTOLOGY ORDERABLES Performing Organization Address City/[facility]/[place] [address] * Specimen to Pathology (09/16/2023 1:25 PM EDT) AP Specimen 09/16/2023 1:25 PM EDT 09/16/2023 1:25 PM EDT Narrative [facility] LABORATORY - 09/16/2023 1:25 PM EDT Specimen requisition ordered. ??Separate Pathology report to follow Jutsa Preciado MD PATHOLOGY/CYTOLOGY ORDERABLES Performing Organization Address [facility]/[place] [address] * Specimen to Pathology (09/16/2023 1:25 PM EDT) AP Specimen 09/16/2023 1:25 PM EDT 09/16/2023 1:25 PM EDT Narrative [facility] LABORATORY - 09/16/2023 1:25 PM EDT Specimen requisition ordered. ??Separate Pathology report to follow Justa Preciado MD PATHOLOGY/CYTOLOGY ORDERABLES Performing Organization Address [facility]/[place] [address] * Specimen to Pathology (09/16/2023 1:25 PM EDT) AP Specimen 09/16/2023 1:25 PM EDT 09/16/2023 1:25 PM EDT Narrative [facility] LABORATORY - 09/16/2023 1:25 PM EDT Specimen requisition ordered. ??Separate Pathology report to follow Justa Preciado MD PATHOLOGY/CYTOLOGY ORDERABLES Performing Organization Address City/[facility]/[place] [address] * Surgical Pathology Report (09/16/2023 12:50 PM EDT) Final Diagnosis [id number] ? Location: [facility]; A The signing pathologist has [...] lesion Electronically signed by: ?Wilian ROBLES, PhD, [facility] Verified: ??09/27/2023 10:12 ??Dermatopathologist Performed at: ??-[facility] Dept. of Pathology, [place] [address] Hoop Riveter: Johnnie Stephens MD, FCAP, ??IA Certificate: [id number] SYNOPTIC Specimen ? Procedure: ??Excision; ??Lymphadenectomy, regional [...] of Lymph Nodes Examined: ??6 ?Number of Hollis Nodes Examined: ??0 ? Pathologic Stage Classification (pTNM, AJCC 8th Edition) ?Pathologic Stage Classification: ??Classification assigned in this report ? includes information from a prior procedure - yes ?pT Category: ??pT4a . SYNOPTIC ?pN Category: ??pN1c Best Tumor Blocks for Future Studies ? Tumor Block(s): ??D10,12,14 ? Normal Block(s): ??D3 ? [facility] 2021 Q1 Release DISCUSSION Scanned images of the patient's prior biopsy ([id number]) have been reviewed. There is extensive residual [...] through D23/D24) ??ajw 09/27/2023 10:12 AM EDT [facility] LABORATORY SPECIMEN FROM SKIN / Unknown 09/16/2023 12:50 PM EDT 09/16/2023 12:50 PM EDT LYMPH NODE SPECIMEN / Unknown 09/16/2023 12:50 PM EDT 09/16/2023 12:50 PM EDT LYMPH NODE SPECIMEN / Unknown 09/16/2023 12:50 PM EDT 09/16/2023 12:50 PM EDT SPECIMEN FROM SKIN / Unknown 09/16/2023 12:50 PM EDT 09/16/2023 12:50 PM EDT Justa Preciado MD PATHOLOGY/CYTOLOGY ORDERABLES [facility] [place] [address] documented in this encounter Visit Diagnoses Not [...] MD) documented in this encounter Care Teams Network Consultant Relationship Specialty Start Date End Date Taylor Bryant APRN [address] [place] [address] PCP - General 03/31/10 documented as of this encounter
--- OUTSIDE RECORDS SUMMARY | 2024-04-02 14:01 | XMS_ITS | Encounter Summary ---
Author Organization [facility] Address [facility] [place] [address] Care Team Providers Care Business Information Manager Name Role Phone Taylor Bryant APRN Primary Care Provider [phone] [phone] Encounter Details Date Type Department Care Team ([facility] st Contact Info) Description 10/04/2023 Telephone Otolaryngology at [facility] [place] [phone] Funmi Apple RN Social History Tobacco Use Types Packs/Day Years Used Date Smoking Tobacco: Former Smokeless Tobacco: Never Comments:quit at age 35 Alcohol Use Standard Drinks/Week Comments Yes 0 (1 standard drink = 0.6 oz pur e alcohol) social gatherings [facility] Utilities Answer Date Recorded In the past 12 months has e electric, gas, oil, or water [employer] threatened to shut off services in your [...] TH Visit (TeleHealth) [place] [address] Jean-Pierre Peña MD [facility] [address] HEMATOLOGY [place] [address] 04/13/2024 2:30 PM EST Infusion Hematology Oncology at [address] [address] 04/30/2024 12:15 PM EST Laboratory Appointment Lab at [facility] Hematology Oncology [address] [place] [phone] 04/30/2024 1:15 PM EST Office Visit [place] [address] Jean-Pierre Peña MD [facility] DR HEMATOLOGY [place] [address] Vicky Burnham APRN [facility] [place] [address] 04/30/2024 2:30 PM EST Appointment [place]ematology [place] [address] 05/22/2024 9:15 AM EST Laboratory Appointment Lab at [facility] Hematology Oncology [address] [place] [address] 05/22/2024 10:[address] [place] [place] [address] Jean-Pierre Peña MD [facility] [address] HEMATOLOGY [place] [address] 05/22/2024 11:30 AM EST Office Visit Dermatology at [address] [place] [address] Inderjit Vilchis MD [facility] DR GILBERTO [place] [address] 05/22/2024 2:00 PM EST Office Visit [place] [phone] Jean-Pierre Peña MD [facility] [address] HEMATOLOGY [place] [address] 05/22/2024 3:30 PM EST Appointment [place]ology [place] [phone] 06/11/2024 4:15 PM EST TH Visit (TeleHealth) [place] [address] Jean-Pierre Peña MD [facility] [address] HEMATOLOGY [place] [address] 06/12/2024 8:30 AM EST Infusion Hematology Oncology at [address] [phone] documented as of this encounter Visit Diagnoses Not on filedocumented in this encounter Care Teams Business Information Manager Relationship Specialty Start Date End Date Taylor Bryant APRN [address] [place] [address] PCP - General 03/31/10 documented as of this encounter
--- OUTSIDE RECORDS SUMMARY | 2024-04-02 14:01 | XMS_ITS | Encounter Summary ---
Author Organization [facility] Address [facility] [place] [address] Care Team Providers Care Strainer Tender Name Role Phone Taylor Bryant APRN Primary Care Provider [phone] [phone] Encounter Details Date Type Department Care Team ([facility] st Contact Info) Description 09/28/2023 Notes Only Hematology and Oncology at [facility] [place] [address] Cheryl Daley, RN Social History Tobacco Use Types Packs/Day Years Used Date Smoking Tobacco: Former Smokeless Tobacco: Never Comments:quit at age 35 Alcohol Use Standard Drinks/Week Comments Yes 0 (1 standard drink = 0.6 oz pur e alcohol) social gatherings [facility] Utilities Answer Date Recorded In [...] TH Visit (TeleHealth) Hematology [place] [address] Jean-Pierre Peña MD [facility] [address] [place] [address] 04/13/2024 2:30 PM EST Infusion Hematology Oncology at [address] [address] 04/30/2024 12:15 PM EST Laboratory Appointment Lab at [facility] Hematology Oncology [address] [place] [address] 04/30/2024 1:15 PM EST Office Visit Hematology and Oncology at [place] [phone] Jean-Pierre Peña MD [facility] [address] [place] [address] Vicky Burnham APRN [facility] [place] [address] 04/30/2024 2:30 PM EST Appointment Hematology and Oncology at [place] [phone] 05/22/2024 9:15 AM EST Laboratory Appointment Lab at [facility] Hematology Oncology [address] [place] [phone] 05/22/2024 10:[address] [place] [address] Jean-Pierre Peña MD [facility] [address] [place] [address] 05/22/2024 11:30 AM EST Office Visit Dermatology at [address] [address] Inderjit Vilchis MD [facility] [address] GILBERT[place] [address] 05/22/2024 2:00 PM EST Office Visit Hematology [place] [phone] Jean-Pierre Peña MD [facility] [place] [address] 05/22/2024 3:30 PM EST Appointment Hematology [place] [address] 06/11/2024 4:15 PM EST TH Visit (TeleHealth) Hematology [place] [address] Jean-Pierre Peña MD [facility] [address] [place] [address] 06/12/2024 8:30 AM EST Infusion Hematology Oncology at [address] [address] documented as of this encounter Visit Diagnoses Not on filedocumented in this encounter Care Teams Strainer Tender Relationship Specialty Start Date End Date Taylor Bryant APRN [address] [place] [address] PCP - General 03/31/10 documented as of this encounter
--- OUTSIDE RECORDS SUMMARY | 2024-04-02 14:01 | XMS_ITS | Encounter Summary ---
Author Organization [facility] Address [facility] [place] [address] Care Team Providers Care Emergency Dispatch Operator Name Role Phone Taylor Bryant APRN Primary Care Provider [phone] [phone] Reason for Visit * Auth/Cert (Routine) Specialty Diagnoses / Procedures Referred By Crista padron Referred To Contact Diagnoses Melanoma melanoma Procedures PRO EXC SKIN MALIG 3.1-4CM REMAINDR BODY PRO BX/REMV, LYMPH NODE, DEEP CERV EXC MALIGNANT LESION, 3.1. TO 4.0CM, SCALP (WRVU 3.62) BIOPSY OR EXCISION OF LYMPH NODE(S), OPEN, DEEP CERVICAL NODES (WRVU 6.74) Castro Preciado MD [facility] [place] [address] [facility] Referral ID Status Reason Start Date Expiration Date Visits Re quested Visits Authorized [id number] 1 1 Encounter Details Date Type Department Care Team (Late st Contact Info) Description 09/16/2023 11:48 AM EDT Anesthesia [place] [address] Des Mercedes MD [facility] [place] [address] Anesthesia Record Procedure Summary Procedure Name Responsible [...] pur e alcohol) social gatherings [facility] Utilities Answer Date Recorded In [...] Procedure Summary Date: 09/16/23 Room / Location: [facility] MAIN OR Anesthesia Start: 1148 Anesthesia Stop: 1455 Procedures: RADICAL RESECTION TUMOR SCALP; >2 CM (WRVU 15.26) (Right: Face) BIOPSY OR EXCISION OF LYMPH NODE(S), OPEN, DEEP CERVICAL NODES (WRVU 6.74) (Right: Neck) Diagnosis:(melanoma) Surgeons: Castro Preciado MD Responsible Provider: Des Mercedes MD Anesthesia Type: general ASA Status: 2 All Anesthesia Providers: Anesthesiologist: Des Mercedes MD ROLLER COASTER DESIGNER: Sandy Velasco CRNA Vitals Value Taken Time BP 139/79 09/16/23 1645 Temp 36.5 ??C (97.7 ??F) 09/16/23 1645 Pulse 90 09/16/23 1600 Resp 20 09/16/23 1630 SpO2 96 % 09/16/23 1658 Pain Level 7 09/16/23 1630 Vitals shown include unfiled device data. Patient Location: PACU/[facility] Level of Consciousness: Awake and Alert Pain [...] risks discussed with patient. Plan discussed with ROLLER COASTER DESIGNER. Anesthesia Screening documented in this encounter Plan of Treatment Upcoming Encounters Date Type Department Care Team (Late st Contact Info) Description 04/09/2024 4:15 PM EST TH Visit (TeleHealth) Hematology [place] [address] Jean-Pierre Peña MD [facility] DR HEMATOLOGY [place] [address] 04/13/2024 2:30 PM EST Infusion Hematology Oncology at [address] [address] 04/30/2024 12:15 PM EST Laboratory Appointment Lab at [facility] Hematology Oncology [address] [place] [phone] 04/30/2024 1:15 PM EST Office Visit Hematology [place] [address] Jean-Pierre Peña MD [facility] DR HEMATOLOGY [place] [address] Vicky Burnham APRN [facility] [place] [address] 04/30/2024 2:30 PM EST Appointment Hematology [place] [address] 05/22/2024 9:15 AM EST Laboratory Appointment Lab at [facility] Hematology Oncology [address] [place] [phone] 05/22/2024 10:[address] [place] [address] Jean-Pierre Peña MD [facility] DR HEMATOLOGY [place] [address] 05/22/2024 11:30 AM EST Office Visit Dermatology at [facility] [address] [place] [address] Inderjit Vilchis MD [facility] DR GILBERTO [place] [address] 05/22/2024 2:00 PM EST Office Visit Hematology [place] [address] Jean-Pierre Peña MD [facility] DR HEMATOLOGY [place] [address] 05/22/2024 3:30 PM EST Appointment Hematology [place] [address] 06/11/2024 4:15 PM EST TH Visit (TeleHealth) Hematology [place] [address] Jean-Pierre Peña MD [facility] DR HEMATOLOGY [place] [address] 06/12/2024 8:30 AM EST Infusion Hematology Oncology at [address] [address] documented as of this encounter [...] mg documented in this encounter Care Teams Emergency Dispatch Operator Relationship Specialty Start Date End Date Taylor Bryant APRN [address] [place] [address] PCP - General 03/31/10 documented as of this encounter
--- OUTSIDE RECORDS SUMMARY | 2024-04-02 14:01 | XMS_ITS | Encounter Summary ---
Author Organization [facility] [place] [address] Care Team Providers Care Aerial Crop Duster Name Role Phone Taylor Bryant APRN Primary Care Provider [phone] [phone] Encounter Details Date Type Department Care Team ([facility] st Contact Info) Description 09/19/2023 Telephone Hematology [place] [phone] Gianna Sanabria RN Social History Tobacco Use Types Packs/Day Years Used Date Smoking Tobacco: Former Smokeless Tobacco: Never Comments:quit at age 35 Alcohol Use Standard Drinks/Week Comments Yes 0 (1 standard drink = 0.6 oz pur e alcohol) social gatherings [facility] Utilities Answer Date Recorded In [...] TH Visit (TeleHealth) [place]ematology [place] [address] Jean-Pierre Peña MD [facility] [place] [address] 04/13/2024 2:30 PM EST Infusion Hematology Oncology at [address] [phone] 04/30/2024 12:15 PM EST Laboratory Appointment Lab at [facility] Hematology Oncology [address] [place] [phone] 04/30/2024 1:15 PM EST Office Visit Hematology [place] [address] Jean-Pierre Peña MD [facility] DR [place] [address] Vicky Burnham APRN [facility] [place] [address] 04/30/2024 2:30 PM EST Appointment Hematology [place] [address] 05/22/2024 9:15 AM EST Laboratory Appointment Lab at [facility] Hematology Oncology [address] [place] [phone] 05/22/2024 10:[address] [place] [place] [address] Jean-Pierre Peña MD [facility] DR [place] [address] 05/22/2024 11:30 AM EST Office Visit Dermatology at [address] [place] [address] Inderjit Vilchis MD [facility] DR GILBERTO [place] [address] 05/22/2024 2:00 PM EST Office Visit Hematology [place] [address] Jean-Pierre Peña MD [facility] DR [place] [address] 05/22/2024 3:30 PM EST Appointment Hematology [place] [address] 06/11/2024 4:15 PM EST TH Visit (TeleHealth) [place]ematology [place] [address] Jean-Pierre Peña MD [facility] DR [place] [address] 06/12/2024 8:30 AM EST Infusion Hematology Oncology at [address] [address] documented as of this encounter Visit Diagnoses Not on filedocumented in this encounter Care Teams Aerial Crop Duster Relationship Specialty Start Date End Date Taylor Bryant, UX DEVELOPER DESIGNER [address] [place] [address] PCP - General 03/31/10 documented as of this encounter
--- OUTSIDE RECORDS SUMMARY | 2024-04-02 14:01 | XMS_ITS | Encounter Summary ---
Author Organization [facility] Address [facility] [place] [address] Care Team Providers Care Operational Trainer Name Role Phone Taylor Bryant APRN Primary Care Provider [phone] [phone] Encounter Details Date Type Department Care Team ([facility] st Contact Info) Description 09/14/2023 Telephone Hematology [place] [phone] Roselyn Sánchez Social History Tobacco Use Types Packs/Day Years Used Date Smoking Tobacco: Former Smokeless Tobacco: Never Comments:quit at age 35 Alcohol Use Standard Drinks/Week Comments Yes 0 (1 standard drink = 0.6 oz pur e alcohol) social gatherings [facility] Utilities Answer Date Recorded In [...] - 09/14/2023 12:26 PM EDT [facility] spoke to Keeley and sent [facility] food pantry order to [employer] for delivery on 10/03 at 3pm. Roselyn Sánchez documented in this encounter Plan of Treatment Upcoming Encounters Date Type Department Care Team (Late st Contact Info) Description 04/09/2024 4:15 PM EST TH Visit (TeleHealth) Hematology [place] [address] Jean-Pierre Peña MD [facility] [place] [address] 04/13/2024 2:30 PM EST Infusion Hematology Oncology at [address] [phone] 04/30/2024 12:15 PM EST Laboratory Appointment Lab at [facility] Hematology Oncology [address] [place] [phone] 04/30/2024 1:15 PM EST Office Visit Hematology [place] [phone] Jean-Pierre Peña MD [facility] [place] [address] Vicky Burnhma APRN [facility] [place] [place] [address] 04/30/2024 2:30 PM EST Appointment Hematology and Oncology at [place] [phone] 05/22/2024 9:15 AM EST Laboratory Appointment Lab at [facility] Hematology Oncology [address] [place], [place] [phone] 05/22/2024 10:[address] Scan at [address] Jean-Pierre Peña MD [facility] DR [place] [address] 05/22/2024 11:30 AM EST Office Visit Dermatology at [address] [phone] Inderjit Vilchis MD [facility] [place] [place] [address] 05/22/2024 2:00 PM EST Office Visit Hematology and Oncology at [place] [phone] Jean-Pierre Peña MD [facility] DR [place]EMATOLOG[place] [address] 05/22/2024 3:30 PM EST Appointment Hematology [place] [phone] 06/11/2024 4:15 PM EST TH Visit (TeleHealth) Hematology and Oncology at [place] [phone] Jean-Pierre Peña MD [facility] DR [place]AT[place] [address] 06/12/2024 8:30 AM EST Infusion Hematology Oncology at [address] [phone] documented as of this encounter Visit Diagnoses Not on filedocumented in this encounter Care Teams Operational Trainer Relationship Specialty Start Date End Date Taylor Bryant APRN [address] [place] [address] PCP - General 03/31/10 documented as of this encounter
--- OUTSIDE RECORDS SUMMARY | 2024-04-02 14:01 | XMS_ITS | Encounter Summary ---
Author Organization [facility] Address [facility] [place] [address] Care Team Providers Care Fish Protector Name Role Phone Taylor Bryant APRN Primary Care Provider [phone] [phone] Reason for Visit * Reason Comments Specialty Pharmacy Review [facility] alfonso Encounter Details Date Type Department Care Team (Late st Contact Info) Description 09/12/2023 Specialty Pharmacy Pharmacy at [facility] [place] [phone] Tegan Mcnamara, CLEAN UP HELPER BANQUET Social History Tobacco Use Types Packs/Day Years [...] Mcnamara - 09/12/2023 11:59 PM EDT The [facility] has completed a benefits investigation for Keeley Gutierrez to review their eligibility to fill at [facility]. Per patient's medication list they are prescribed Mekinist 2mg tablet and the medication is able to be filled at the [facility]. The patient is eligible to fill the medication through Specialty pharmacy with a $0 copay. No PArequired. The patient is not starting therapy at this time. documented in this encounter Plan of Treatment Upcoming Encounters Date Type Department Care Team (Late st Contact Info) Description 04/09/2024 4:15 PM EST TH Visit (TeleHealth) Hematology [place] [address] Jean-Pierre Peña MD [facility] [place] [address] 04/13/2024 2:30 PM EST Infusion Hematology Oncology at [address] [phone] 04/30/2024 12:15 PM EST Laboratory Appointment Lab at [facility] Hematology Oncology [address] [place] [phone] 04/30/2024 1:15 PM EST Office Visit Hematology [place] [address] Jean-Pierre Peña MD [facility] DR [place] [address] Vicky Burnham APRN [facility] [place] [address] 04/30/2024 2:30 PM EST Appointment Hematology [place] [address] 05/22/2024 9:15 AM EST Laboratory Appointment Lab at [facility] Hematology [address] [phone] 05/22/2024 10:[address] Scan at [place] [phone] Jean-Pierre Peña MD [facility] H[place]ATOLOG[place] [address] 05/22/2024 11:30 AM EST Office Visit Dermatology at [address] [phone] Inderjit Vilchis MD [facility] DR [facility] [place] [address] 05/22/2024 2:00 PM EST Office Visit Hematology [place] [address] Jean-Pierre Peña MD [facility] H[place]AT[place] [address] 05/22/2024 3:30 PM EST Appointment Hematology [place] [address] 06/11/2024 4:15 PM EST TH Visit (TeleHealth) Hematology [place] [address] Jean-Pierre Peña MD [facility] DR [place]EMAT[place] [address] 06/12/2024 8:30 AM EST Infusion Hematology Oncology at [address] [phone] documented as of this encounter Visit Diagnoses Not on filedocumented in this encounter Care Teams Fish Protector Relationship Specialty Start Date End Date Taylor Bryant APRN [address] [place] [address] PCP - General 03/31/10 documented as of this encounter
--- OUTSIDE RECORDS SUMMARY | 2024-04-02 14:01 | XMS_ITS | Encounter Summary ---
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 Procedures CT Neck Soft Tissue w Contrast (Generic) Jean-Pierre Parra MD [facility] [address] [place] [address] [facility] [place] [address] Referral ID Status Reason Start Date Expiration Date V isits Requested Visits Authorized [id number] Closed Specialty Service Requested 10/11/2023 04/11/2025 1 1 * Diagnostic Test (Routine) - Closed Specialty Diagnoses / Procedures Referred By Contjono t Referred To Contact Radiology Diagnoses Malignant melanoma of scalp Procedures CT Chest Abdomen Pelvis w Contrast (Generic) Jean-Pierre Parra MD [facility] [address] [place] [address] [facility] [place] [address] Referral ID Status Reason Start Date Expiration Date V isits Requested Visits Authorized [id number] Closed Specialty Service Requested 10/11/2023 04/11/2025 1 1 Reason for Visit * Reason Comments Follow-up Encounter Details Date Type Department Care Team (Late st Contact Info) Description 10/04/2023 11:30 AM EDT Office Visit Hematology and Oncology at [facility] [place] [address] Jean-Pierre Parra MD [facility] HEMATOLOGY [place] [address] Malignant melanoma of scalp (Primary Dx); Secondary [...] from the original note were not included. [facility] NOTE REFERING PHYSICIAN: DIAGNOSIS: Right occipital [...] 9.72) performed by Castro Preciado MD at [facility] OR PRO BX/REMV, LYMPH NODE, DEEP CERV Right 09/16/2023 BIOPSY OR EXCISION OF LYMPH NODE(S), OPEN, DEEP CERVICAL NODES (WRVU 6.74) performed by Castro Preciado MD at [facility] OR PRO RADICAL RESECT OF TUMOR, SOFT TISSUE FACE OR SCALP, 2CM OR GREATER Right 09/16/2023 RADICAL RESECTION TUMOR SCALP; >2 CM (WRVU 15.26) performed by Castro Preciado MD at [facility] OR PRO SPLIT GRFT, HEAD, FAC, HAND, FEET <100SQCM Right 09/28/2023 SPLIT THICKNESS SKIN SPLIT GRAFT,100SQ CM OR LESS, NECK (WRVU 10.15) performed by Castro Preciado MD at [facility] OR TUBAL LIGATION MEDS: FLUoxetine, [...] Paulino Staley MD PGY 4 Hem/Onc Fellow [facility] ATTENDING NOTE: The patient is recuperating [...] TH Visit (TeleHealth) [place]ology [place] [address] Jean-Pierre Parra MD [facility] [address] [place] [address] 04/13/2024 2:30 PM EST Infusion Hematology Oncology at [address] [phone] 04/30/2024 12:15 PM EST Laboratory Appointment Lab at [facility] Hematology Oncology [address] [place] [phone] 04/30/2024 1:15 PM EST Office Visit [place]ematology [place] [address] Jean-Pierre Parra MD [facility] [address] [place] [address] Vicky Burnham APRN [facility] [place] [address] 04/30/2024 2:30 PM EST Appointment Hematology [place] [address] 05/22/2024 9:15 AM EST Laboratory Appointment Lab at [facility] Hematology Oncology [address] [place] [phone] 05/22/2024 10:[address] [place] [place] [phone] Jean-Pierre Parra MD [facility] [address] [place] [address] 05/22/2024 11:30 AM EST Office Visit Dermatology at [facility] [address] [place] [phone] Inderjit Vilchis MD [facility] DR [facility] [place] [address] 05/22/2024 2:00 PM EST Office Visit Hematology [place] [phone] Jean-Pierre Parra MD [facility] [address] [place] [address] 05/22/2024 3:30 PM EST Appointment Hematology [place] [phone] 06/11/2024 4:15 PM EST TH Visit (TeleHealth) [place]ematology [place] [phone] Jean-Pierre Parra MD [facility] [address] [place] [address] 06/12/2024 8:30 AM EST Infusion Hematology Oncology at [address] [phone] documented as of this encounter Results * CT Neck Soft Tissue w Contrast (Generic) (02/06/2024 11:53 AM EDT) [employer] WORKSTATION ID [id number] [facility] Anatomical Region Laterality Modality Neck, Head Computed Tomogra phy Impressions 02/07/2024 10:09 AM EDT No soft tissue mass or pathologic adenopathy. Thank you for letting us participate in the care of this patient. ??If you are a health care provider and have any questions regarding this report, please contact the number below. ??For patients who have questions please contact the health vision care associate that requested your imaging first. ? Narrative [...] patients who have questions please contactthe health vision care associate that requested your imaging first. Jean-Pierre Parra MD IM CT ORDERABLES * CT Chest Abdomen Pelvis w Contrast (Generic) (02/06/2024 11:53 AM EDT) WORKSTATION ID [id number] RAD Anatomical Region Laterality Modality Abdomen, Pelvis [...] who have questions please contact the health vision care associate that requested your imaging first. ? Narrative [...] patients who have questions please contactthe health vision care associate that requested your imaging first. Jean-Pierre Parra MD IMG CT ORDERABLES documented [...] tissue documented in this encounter Care Teams Transmission Rebuilder Relationship Specialty Start Date End Date Taylor Bryant APRN [address] [place] [address] PCP - General 03/31/10 documented as of this encounter
--- OUTSIDE RECORDS SUMMARY | 2024-04-02 14:01 | XMS_ITS | Encounter Summary ---
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, unspecified lymph node region Procedures [id number] pembrolizumab (Keytruda) Jean-Pierre Peña MD [facility] [address] [place] [address] Jean-Pierre Peña MD [facility] DR [place] [address] Referral ID Status Reason Start Date Expiration Date V isits Requested Visits Authorized [id number] Authorized 07/25/2023 07/24/2024 99 99 Encounter Details Date Type Department Care Team (Latest Contact Info) Description 10/04/2023 10:28 AM EDT - 10/04/2023 11:59 PM EDT Hospital Encounter Hematology [place] [address] Medication management; Malignant melanoma of scalp; 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, unspecified lymph node region Discharge Disposition: Home Social History Tobacco Use Types Packs/Day Years Used Date Smoking Tobacco: Former Smokeless Tobacco: Never Comments:quit at age 35 Alcohol Use Standard Drinks/Week Comments Yes 0 (1 standard drink = 0.6 oz pur e alcohol) social gatherings [facility] Utilities Answer Date Recorded In the [...] TH Visit (TeleHealth) Hemat[place] [address] Jean-Pierre Peña MD [facility] [place] [address] 04/13/2024 2:30 PM EST Infusion Hematology Oncology at [address] [address] 04/30/2024 12:15 PM EST Laboratory Appointment Lab [place] [facility] [place] [address] [place] [phone] 04/30/2024 1:15 PM EST Office Visit Hematology [place] [address] Jean-Pierre Peña MD [facility] DR [place] [address] Vicky Burnham APRN [facility] [place] [place] [address] 04/30/2024 2:30 PM EST Appointment Hematology [place] [address] 05/22/2024 9:15 AM EST Laboratory Appointment Lab at [facility] [place] On[place] [address] [place] [phone] 05/22/2024 10:[address] [place] [phone] Jean-Pierre Peña MD [facility] [address] [place] [address] 05/22/2024 11:30 AM EST Office Visit Dermatology at [address] [phone] Inderjit Vilchis MD [facility] DR [facility]ERT[place] [address] 05/22/2024 2:00 PM EST Office Visit Hematology [place] [phone] Jean-Pierre Peña MD [facility] [address] [place] [address] 05/22/2024 3:30 PM EST Appointment Hematology [place] [address] 06/11/2024 4:15 PM EST TH Visit (TeleHealth) Hemat[place] [address] Jean-Pierre Peña MD [facility] [address] [place] [address] 06/12/2024 8:30 AM EST Infusion Hematology Oncology at [address] [phone] documented as of this encounter Results * Lactate Dehydrogenase (10/04/2023 10:34 AM EDT) [facility] Lactate Dehydrogenase 205 110 - 220 unit/L [facility] Blood 10/04/2023 10:3 4 AM EDT 10/04/2023 10:47 AM EDT Narrative Resulting Agency Comment Spec In Lab Jean-Pierre Peña MD CHEMISTRY ORDERABLES [facility] [place] [address] * T4, free (10/04/2023 10:34 AM EDT) Free T4 1.30 0.93 - 1.70 ng/dL [facility] Comment: Reference Interval (ng/dL): Females: ??First Trimester: 0.97-1.68 ??Second Trimester: 0.77-1.51 ??Third Trimester: 0.77-1.49 Blood 10/04/2023 10:3 4 AM EDT 10/04/2023 10:47 AM EDT Narrative Resulting Agency Comment Spec In Lab Jean-Pierre Peña MD CHEMISTRY ORDERABLES [facility] [place] [address] * TSH (10/04/2023 10:34 AM EDT) Thyroid Stimulating Hormone 0.52 0.27 - 4.20 mcIU/mL [facility] Comment: Reference Interval (mcIU/mL): Females: ??First Trimester: 0.23-3.88 ??Second Trimester: 0.22-3.90 ??Third Trimester: 0.44-4.66 Blood 10/04/2023 10:3 4 AM EDT 10/04/2023 10:47 AM EDT Narrative Resulting Agency Comment Spec In Lab Jean-Pierre Peña MD CHEMISTRY ORDERABLES Performing Organization Address [facility] de Phone Number [facility] [place] [address] * (ABNORMAL) Comprehensive metabolic panel (non-fasting) (10/04/2023 10:34 AM EDT) [facility] Glucose 114 65 - 199 mg/dL [facility] Comment:Diabetes: >=200 mg/d L plus symptoms Blood Urea Nitrogen 23(H) 8 - 18 mg/dL [facility] Creatinine 0.76 0.70 - 1.20 mg/dL [facility] Sodium 140 135 - 145 mmol/L [facility] Potassium 4.2 3.5 - 5.0 mmol/L [facility] Comment: Please note: ??Patients with WBC >100,000 may have falsely elevated Potassium levels. ??For accurate Potassium quantification in these patients send serum separator tube (gold top) for subsequent determinations. ??Contact the Clinical Chemistry Laboratory if there are any questions. Chloride 106 98 - 107 mmol/L [facility] Carbon Dioxide 24 22 - 31 mmol/L [facility] Anion Gap 10 5 - 15 mmol/L [facility] Calcium 9.6 8.5 - 10.5 mg/dL [facility] Protein, Total 7.0 6.1 - 8.0 g/dL [facility] Albumin 4.2 3.2 - 5.2 g/dL [facility] Aspartate Aminotransferase 27 0 - 30 unit/L [facility] Alanine Aminotransferase 46(H) 0 - 30 unit/L [facility] Alkaline Phosphatase 167(H) 35 - 105 unit/L [facility] Bilirubin, Total 0.4 0.2 - 1.3 mg/dL [facility] Est Glomerular Filtration Rate 91 >=60 mL/min/1. 73 m?? [facility] Comment: This patient's estimated [...] In Lab Jean-Pierre Peña MD CHEMISTRY ORDERABLES [facility] [place] [address] documented in this encounter Visit Diagnoses Diagnosis [...] mL/hr documented in this encounter Care Teams Tire Trucker Relationship Specialty Start Date End Date Taylor Bryant APRN [address] [place] [address] PCP - General 03/31/10 documented as of this encounter
--- OUTSIDE RECORDS SUMMARY | 2024-04-02 14:01 | XMS_ITS | Encounter Summary ---
Author Organization [facility] Address [facility] [place] [address] Care Team Providers Care Labeling Associate Name Role Phone Taylor Bryant APRN Primary Care Provider [phone] Encounter Details Date Type Department Care Team (Latest Contact Info) Description 10/03/2023 Travel Social History Tobacco Use Types Packs/Day Years Used Date Smoking Tobacco: Former Smokeless Tobacco: Never Comments:quit at age 35 Alcohol Use Standard Drinks/Week Comments Yes 0 (1 standard drink = 0.6 oz pur e alcohol) social gatherings [facility] Utilities Answer Date [...] TH Visit (TeleHealth) Hematology [place] [address] Jean-Pierre Peña MD [facility] [place] [address] 04/13/2024 2:30 PM EST Infusion Hematology Oncology at [address] [address] 04/30/2024 12:15 PM EST Laboratory Appointment Lab at [facility] Hematology Oncology [address] [place] [phone] 04/30/2024 1:15 PM EST Office Visit Hematology [place] [phone] Jean-Pierre Peña MD [facility] [place] [address] Vicky Burnham, LEAD BUSINESS ANALYST [facility] [place] [address] 04/30/2024 2:30 PM EST Appointment Hematology [place] [address] 05/22/2024 9:15 AM EST Laboratory Appointment Lab at [facility] Hematology Oncology [address] [place] [phone] 05/22/2024 10:[address] Scan at [place] [phone] Jean-Pierre Peña MD [facility] DR [place] [address] 05/22/2024 11:30 AM EST Office Visit Dermatology at [address] [phone] Inderjit Vilchis MD [facility] DR [facility]ERT[facility] [place] [address] 05/22/2024 2:00 PM EST Office Visit Hematology [place] [address] Jean-Pierre Peña MD [facility] [place] [address] 05/22/2024 3:30 PM EST Appointment Hematology [place] [address] 06/11/2024 4:15 PM EST TH Visit (TeleHealth) Hematology [place] [address] Jean-Pierre Peña MD [facility] [place] [address] 06/12/2024 8:30 AM EST Infusion Hematology Oncology at [address] [phone] documented as of this encounter Visit Diagnoses Not on filedocumented in this encounter Care Teams Labeling Associate Relationship Specialty Start Date End Date Taylor Bryant APRN [address] [place] [address] PCP - General 03/31/10 documented as of this encounter
--- OUTSIDE RECORDS SUMMARY | 2024-04-02 14:01 | XMS_ITS | Encounter Summary ---
Author Organization [facility] Address [facility] [place] [address] Care Team Providers Care Director Of Claims Name Role Phone Taylor Bryant APRN Primary Care Provider +1 [phone] Reason for Visit * Auth/Cert (Routine) Specialty Diagnoses / Procedures Referred By Crista padron Referred To Contact Diagnoses Melanoma melanoma Procedures PRO EXC SKIN MALIG 3.1-4CM REMAINDR BODY PRO BX/REMV, LYMPH NODE, DEEP CERV EXC MALIGNANT LESION, 3.1. TO 4.0CM, SCALP (WRVU 3.62) BIOPSY OR EXCISION OF LYMPH NODE(S), OPEN, DEEP CERVICAL NODES (WRVU 6.74) Castro Preciado MD [facility] [place] [address] [facility] Referral ID Status Reason Start Date Expiration Date Visits Re quested Visits Authorized [id number] 1 1 Encounter Details Date Type Department Care Team (Latest Contact Info) Description 09/16/2023 8:00 AM EDT - 09/16/2023 9:53 AM EDT Hospital En[place] [address] Castro Preciado MD [facility] [place] [address] Discharge Disposition: Home Social History Tobacco Use [...] melanoma with 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 mutation 30 tablet 08/23/2023 09/28/2023 documented as of this encounter Plan of Treatment Upcoming Encounters Date Type Department Care Team (Late st Contact Info) Description 04/09/2024 4:15 PM EST TH Visit (TeleHealth) Hematology [place] [address] Jean-Pierre Peña MD [facility] [place] [address] 04/13/2024 2:30 PM EST Infusion Hematology Oncology at [address] [address] 04/30/2024 12:15 PM EST Laboratory Appointment Lab at [facility] Hematology Oncology [address] [place] [phone] 04/30/2024 1:15 PM EST Office Visit Hematology [place] [address] Jean-Pierre Peña MD [facility] [place] [address] Vicky Burnham APRN [facility] [place] [address] 04/30/2024 2:30 PM EST Appointment Hematology and Oncology at [place] [phone] 05/22/2024 9:15 AM EST Laboratory Appointment Lab at [facility] Hematology Oncology [address] [place] [phone] 05/22/2024 10:[address] Scan at [address] Jean-Pierre Peña MD [facility] [place] [address] 05/22/2024 11:30 AM EST Office Visit Dermatology at [address] [address] Inderjit Vilchis MD [facility] [place] [address] 05/22/2024 2:00 PM EST Office Visit Hematology [place] [address] Jean-Pierre Peña MD [facility] DR [place] [address] 05/22/2024 3:30 PM EST Appointment Hematology [place] [address] 06/11/2024 4:15 PM EST TH Visit (TeleHealth) Hematology and Oncology at [place] [phone] Jean-Pierre Peña MD [facility] [place] [address] 06/12/2024 8:30 AM EST Infusion Hematology Oncology at [address] [phone] documented as of this encounter Procedures Procedure Name Priority Date/Time Associated Diagnosis Comments NM LYMPHOSCINTIGRAPHY WITH IMAGING MELANOMA OR SKIN CANCER Routine 09/16/2023 9:54 AM EDT Malignant melanoma of scalp documented in this encounter Results * NM Lymphoscintigraphy w Imaging Melanoma or Skin Cancer (09/16/2023 9:54 AM EDT) WORKSTATION ID [id number] RAD Anatomical Region Laterality Modality Nuclear Medicine Impressions 09/16/2023 12:37 PM EDT [place] lymph nodes in the right levels 2 and 5 regions as above. Thank you for letting us participate in the care of this patient. ??If you are a health care provider and have any questions regarding this report, please contact the number below. ??For patients who have questions please contact the health care administrative tech that requested your imaging first. ? Narrative [...] right level 5 (axial image 28). IMPRESSION [place] lymph nodes in the right levels 2 and 5 regions as above. Thank you for letting us participate in the care of this patient. If youare a health care provider and have any questions regarding this report,please contact the number below. For patients who have questions please contactthe health care administrative tech that requested your imaging first. Electronically signed by: Esa Sprague MD, [facility]([phone]), at 09/16/2023 12:37 PM Castro Preciado MD [facility] ORDERABLES documented in this encounter Visit Diagnoses Not on filedocumented in this encounter Care Teams Director Of Claims Relationship Specialty Start Date End Date Taylor Bryant APRN [address] [place] [id number] PCP - General 03/31/10 documented as of this encounter
--- OUTSIDE RECORDS SUMMARY | 2024-04-02 14:01 | XMS_ITS | Encounter Summary ---
[place] [address] Care Team Providers Care Aviation Technician Aircraft Name Role Phone Taylor Bryant APRN Primary Care Provider [phone] [phone] Reason for Referral * Diagnostic Test (Routine) - Closed Specialty Diagnoses / Procedures Referred By Crista padron Referred To Contact Radiology Diagnoses Malignant melanoma of scalp Procedures NM Lymphoscintigraphy w Imaging Melanoma or Skin Cancer Castro Preciado MD [facility] [place] [address] [place] [address] Referral ID Status Reason Start Date Expiration Date V isits Requested Visits Authorized [id number] Closed Specialty Service Requested 08/18/2023 02/16/2025 1 [...] NODES (WRVU 6.74) Castro Preciado MD [facility] [place] [address] [facility] Referral ID Status Reason Start Date Expiration Date Visits Re quested Visits Authorized [id number] 1 1 Encounter Details Date Type Department Care Team (Latest Contact Info) Description 09/16/2023 7:59 AM EDT Hospital Encounter Nuclear Medicine at [facility] [place] [address] Castro Preciado MD [facility] [place] [address] Malignant melanoma of scalp Discharge Disposition: Home Social History Tobacco Use Types Packs/Day Years Used Date Smoking Tobacco: Former Smokeless Tobacco: Never Comments:quit at age 35 Alcohol Use Standard Drinks/Week Comments Yes 0 (1 standard drink = 0.6 oz pur e alcohol) social gatherings [facility] Utilities Answer Date Recorded In the [...] (TeleHealth) Hematology [place] [address] Jean-Pierre Peña MD [facility] [place] [address] 04/13/2024 2:30 PM EST Infusion Hematology Oncology at [address] [phone] 04/30/2024 12:15 PM EST Laboratory Appointment Lab at [facility] Hematology Oncology [address] [place] [phone] 04/30/2024 1:15 PM EST Office Visit Hematology [place] [address] Jean-Pierre Peña MD [facility] [place] [address] Vicky Burnham APRN [facility] [place] [place] [address] 04/30/2024 2:30 PM EST Appointment Hematology [place] [address] 05/22/2024 9:15 AM EST Laboratory Appointment Lab at [facility] Hematology Oncology [address] [place] [phone] 05/22/2024 10:[address] [place] [address] Jean-Pierre Peña MD [facility] [place] [address] 05/22/2024 11:30 AM EST Office Visit Dermatology at [address] [place] [phone] Inderjit Vilchis MD [facility] DR [place] [address] 05/22/2024 2:00 PM EST Office Visit Hematology [place] [address] Jean-Pierre Peña MD [facility] [place] [address] 05/22/2024 3:30 PM EST Appointment Hematology [place] [address] 06/11/2024 4:15 PM EST TH Visit (TeleHealth) [place] [address] Jean-Pierre Peña MD [facility] [place] [address] 06/12/2024 8:30 AM EST Infusion Hematology Oncology at [address] [address] documented as of this encounter Procedures Procedure Name Priority Date/Time Associated Diagnosis Comments NM LYMPHOSCINTIGRAPHY WITH IMAGING MELANOMA OR SKIN CANCER Routine 09/16/2023 9:54 AM EDT Malignant melanoma of scalp documented in this encounter Results * NM Lymphoscintigraphy w Imaging Melanoma or Skin Cancer (09/16/2023 9:54 AM EDT) [employer] WORKSTATION ID [id number] [facility] Anatomical Region Laterality Modality Nuclear Medicine Impressions 09/16/2023 12:37 PM EDT [place] lymph nodes in the right levels 2 and 5 regions as above. Thank you for letting us participate in the care of this patient. ??If you are a health care provider and have any questions regarding this report, please contact the number below. ??For patients who have questions please contact the health home care coordinator that requested your imaging first. ? Narrative [...] right level 5 (axial image 28). IMPRESSION [place] lymph nodes in the right levels 2 and 5 regions as above. Thank you for letting us participate in the care of this patient. If youare a health care provider and have any questions regarding this report,please contact the number below. For patients who have questions please contactthe health home care coordinator that requested your imaging first. Castro Preciado [...] mCi documented in this encounter Care Teams Aviation Technician Aircraft Relationship Specialty Start Date End Date Taylor Bryant APRN [address] [place] [address] PCP - General 03/31/10 documented as of this encounter
--- OUTSIDE RECORDS SUMMARY | 2024-04-02 14:01 | XMS_ITS | Encounter Summary ---
Author Organization [facility] Address [facility] [place] [address] Care Team Providers Care Inside Channel Account Manager Name Role Phone Taylor Bryant APRN Primary Care Provider [phone] [phone] Encounter Details Date Type Department Care Team ([facility] st Contact Info) Description 09/28/2023 Orders Only Hematology [place] [address] Jean-Pierre Peña MD [facility] DR HEMATOLOGY [place] [address] Social History Tobacco Use Types Packs/Day Years Used Date Smoking Tobacco: Former Smokeless Tobacco: Never Comments:quit at age 35 Alcohol Use Standard Drinks/Week Comments Yes 0 (1 standard drink = 0.6 oz pur e alcohol) social gatherings [facility] Utilities Answer Date Recorded In [...] Visit (TeleHealth) Hematology [place] [address] Jean-Pierre Peña MD [facility] DR HEMATOLOGY [place] [address] 04/13/2024 2:30 PM EST Infusion Hematology Oncology at [address] [phone] 04/30/2024 12:15 PM EST Laboratory Appointment Lab at [facility] [place] [place] Hematology Oncology [address] [place] [phone] 04/30/2024 1:15 PM EST Office Visit Hematology [place] [address] Jean-Pierre Peña MD [facility] DR [place] [address] Vicky Burnham APRN [facility] [place] [address] 04/30/2024 2:30 PM EST Appointment Hematology and Oncology at [place] [phone] 05/22/2024 9:15 AM EST Laboratory Appointment Lab at [facility] [place] Hematology [address] [phone] 05/22/2024 10:[address] Scan at [place] [phone] Jean-Pierre Peña MD [facility] DR [place] [address] 05/22/2024 11:30 AM EST Office Visit Dermatology at [address] [phone] Inderjit Vilchis MD [facility] DR GILBERTO [place] [address] 05/22/2024 2:00 PM EST Office Visit Hematology and Oncology at [place] [phone] Jean-Pierre Peña MD [facility] [place]EMATOLOGY [place] [address] 05/22/2024 3:30 PM EST Appointment Hematology [place] [phone] 06/11/2024 4:15 PM EST TH Visit (TeleHealth) Hematology and Oncology at [place] [phone] Jean-Pierre Peña MD [facility] DR HEMATOLOGY [place] [address] 06/12/2024 8:30 AM EST Infusion Hematology Oncology at [address] [phone] documented as of this encounter Visit Diagnoses Not on filedocumented in this encounter Care Teams Inside Channel Account Manager Relationship Specialty Start Date End Date Taylor Bryant APRN [address] [place] [address] PCP - General 03/31/10 documented as of this encounter
--- OUTSIDE RECORDS SUMMARY | 2024-04-02 14:01 | XMS_ITS | Encounter Summary ---
Author Organization [facility] Address [facility] [place] [address] Care Team Providers Care Box Press Operator Name Role Phone Taylor Bryant APRN Primary Care Provider [phone] [phone] Reason for Visit * Auth/Cert (Routine) Specialty Diagnoses / Procedures Referred By Crista padron Referred To Contact Diagnoses Melanoma melanoma Procedures PRO EXC SKIN MALIG 3.1-4CM REMAINDR BODY PRO BX/REMV, LYMPH NODE, DEEP CERV EXC MALIGNANT LESION, 3.1. TO 4.0CM, SCALP (WRVU 3.62) BIOPSY OR EXCISION OF LYMPH NODE(S), OPEN, DEEP CERVICAL NODES (WRVU 6.74) Justa Preciado MD [facility] [place] [address] [facility] Referral ID Status Reason Start Date Expiration Date Visits Re quested Visits Authorized [id number] 1 1 Encounter Details Date Type Department Care Team (Latest Contact Info) Description 09/16/2023 9:54 AM EDT - 09/16/2023 5:20 PM EDT Hospital Encounter [place] [address] Justa Preciado MD [facility] [place] [address] Discharge Disposition: Home Social History Tobacco Use [...] -You can reach the ENT clinic at [phone] for appointment questions. -The ENT triage nurse is available at [phone] -For urgent issues during evenings (5 PM - 7 AM) and weekends the ENT resident materials planner/production planner can be reached through the main hospital clam shovel operator at [phone] Follow Up: You will need to follow [...] AM LABORATORY, TECH Hematology and Oncology at [facility] Arrive at: [place] [phone] 10/04/2023 11:30 AM Jean-Pierre Peña MD Hematology and Oncology at [facility] Arrive at: [place] [phone] 10/04/2023 1:30 PM LEB INFUSION THERAPY Hematology and Oncology at [facility] Arrive at: [place] [phone] 10/06/2023 1:00 PM Norm Joy PA Otolaryngology at [facility] Arrive at: [address] [phone] Please dispose of unused excess opioids before your appointment or bring them with you to the appointment and we will help you dispose of them correctly. 10/24/2023 7:45 AM LABORATORY, TECH Hematology and Oncology at [facility] Arrive at: [place] [phone] 10/24/2023 8:45 AM Jean-Pierre Peña MD Hematology and Oncology at [facility] Arrive at: [place] [phone] 10/24/2023 10:00 AM LEB INFUSION THERAPY Hematology and Oncology at [facility] Arrive at: [place] [phone] 11/14/2023 7:45 AM SHAI SMITH Hematology and Oncology at [facility] Arrive at: [place] [phone] 11/14/2023 8:45 AM Jean-Pierre Peña MD Hematology and Oncology at [facility] Arrive at: [place] [phone] 11/14/2023 10:00 AM LEB INFUSION THERAPY Hematology and Oncology at [facility] Arrive at: [place] [phone] 12/20/2023 2:15 PM Inderjit Vilchis MD Dermatology at [facility] Arrive at: [place] documented in this encounter Medications at [...] Preciado MD - 09/16/2023 12:29 PM EDT [facility] Operative Note Patient Name: Keeley Gutierrez : [id number] MR#: [id number] Case Date: 09/16/2023 Surgeon: Surgeon(s) and Role: * Justa Preciado MD - Primary * Filippo Reilly MD - Resident - Assisting * Jordan Gonzalez PA - Physician Shingle Shearing Machine Operator Preoperative diagnosis: melanoma Postoperative diagnosis: melanoma [...] TH Visit (TeleHealth) Hematology [place] [address] Jean-Pierre Peña MD [facility] [place] [address] 04/13/2024 2:30 PM EST Infusion Hematology Oncology at [address] [phone] 04/30/2024 12:15 PM EST Laboratory Appointment Lab at [facility] Hematology Oncology [address] [place] [phone] 04/30/2024 1:15 PM EST Office Visit Hematology [place] [address] Jean-Pierre Peña MD [facility] DR [place] [address] Vicky Burnham APRN [facility] [place] [address] 04/30/2024 2:30 PM EST Appointment Hematology and Oncology at [place] [phone] 05/22/2024 9:15 AM EST Laboratory Appointment Lab at [facility] Hematology [address] [address] 05/22/2024 10:[address] Scan at [place] [phone] Jean-Pierre Peña MD [facility] DR HEM[place] [address] 05/22/2024 11:30 AM EST Office Visit Dermatology at [address] [address] Inderjit Vilchis MD [facility] DR GILBERTO [place] [address] 05/22/2024 2:00 PM EST Office Visit Hematology [place] [address] Jean-Pierre Peña MD [facility] [place]AT[place] [address] 05/22/2024 3:30 PM EST Appointment Hematology [place] [address] 06/11/2024 4:15 PM EST TH Visit (TeleHealth) Hematology [place] [address] Jean-Pierre Peña MD [facility] DR [place] [address] 06/12/2024 8:30 AM EST Infusion Hematology Oncology at [address] [phone] documented as of this encounter [...] PM EDT Bx/Remv, Lymph Node, Deep Cerv ([id number]) 09/16/2023 11:48 AM EDT melanoma Radical/Resect Of Tumor, Soft Tissue Face Or Scalp, 2Cm Or Greater ([id number]) 09/16/2023 11:48 AM EDT melanoma BIOPSY OR EXC OF LYMPH NODES; OPEN, DEEP CERVICAL NODES Routine 09/16/2023 10:47 AM EDT documented in this encounter Results * Specimen to Pathology (09/16/2023 2:09 PM EDT) AP Specimen 09/16/2023 2:09 PM EDT 09/16/2023 2:09 PM EDT [facility] LABORATORY - 09/16/2023 2:09 PM EDT Specimen requisition ordered. ??Separate Pathology report to follow Justa Preciado MD PATHOLOGY/[place] [address] * Specimen to Pathology (09/16/2023 1:25 PM EDT) AP Specimen 09/16/2023 1:25 PM EDT 09/16/2023 1:[address] [facility] - 09/16/2023 1:25 PM EDT Specimen requisition ordered. ??Separate Pathology report to follow Justa Preciado MD PATHOLOGY/CYTOLOGY ORDERABLES Performing Organization Address City/[facility]/[place] [address] * Specimen to Pathology (09/16/2023 1:25 PM EDT) AP Specimen 09/16/2023 1:25 PM EDT 09/16/2023 1:[address] [facility] - 09/16/2023 1:25 PM EDT Specimen requisition ordered. ??Separate Pathology report to follow Justa Preciado MD PATHOLOGY/CYTOLOGY ORDERABLES Performing Organization Address City/[facility]/[place] [address] * Specimen to Pathology (09/16/2023 1:25 PM EDT) AP Specimen 09/16/2023 1:25 PM EDT 09/16/2023 1:[address] [facility] - 09/16/2023 1:25 PM EDT Specimen requisition ordered. ??Separate Pathology report to follow Justa Preciado MD PATHOLOGY/CYTOLOGY ORDERABLES Performing Organization Address [facility]/[place] [address] * Surgical Pathology Report (09/16/2023 12:50 PM EDT) Final Diagnosis [id number] ? Location: SD; SD35; A The signing pathologist has (i) examined [...] lesion Electronically signed by: ?Wilian ROBLES, PhD, [facility] Verified: ??09/27/2023 10:12 ??Dermatopathologist Performed at: ??-[facility] Dept. of Pathology, [place] [address] Director Machine: Johnnie Stephens MD, FCAP, ??[facility] Certificate: [id number] SYNOPTIC Specimen ? Procedure: ??Excision; ??Lymphadenectomy, regional [...] of Lymph Nodes Examined: ??6 ?Number of [place] Nodes Examined: ??0 ? Pathologic Stage Classification (pTNM, AJCC 8th Edition) ?Pathologic Stage Classification: ??Classification assigned in this report ? includes information from a prior procedure - yes ?pT Category: ??pT4a . SYNOPTIC ?pN Category: ??pN1c Best Tumor Blocks for Future Studies ? Tumor Block(s): ??D10,12,14 ? Normal Block(s): ??D3 ? [facility] 2021 Q1 Release DISCUSSION Scanned images of the patient's prior biopsy ([id number]) have been reviewed. There is extensive residual [...] through D23/D24) ??ajw 09/27/2023 10:[address] [facility] SPECIMEN FROM SKIN / Unknown 09/16/2023 12:50 PM EDT 09/16/2023 12:50 PM EDT LYMPH NODE SPECIMEN / Unknown 09/16/2023 12:50 PM EDT 09/16/2023 12:50 PM EDT LYMPH NODE SPECIMEN / Unknown 09/16/2023 12:50 PM EDT 09/16/2023 12:50 PM EDT SPECIMEN FROM SKIN / Unknown 09/16/2023 12:50 PM EDT 09/16/2023 12:50 PM EDT Justa Preciado MD PATHOLOGY/CYTOLOGY ORDERABLES [facility] [place] [address] documented in this encounter Visit Diagnoses Not [...] MD) documented in this encounter Care Teams Box Press Operator Relationship Specialty Start Date End Date Taylor Bryant, ZARA [address] [place] [address] PCP - General 03/31/10 documented as of this encounter
--- OUTSIDE RECORDS SUMMARY | 2024-04-02 14:01 | XMS_ITS | Encounter Summary ---
Author Organization [facility] Address [facility] [place] [address] Care Team Providers Care Globe Changer Name Role Phone Taylor Bryant APRN Primary Care Provider [phone] [phone] Reason for Visit * Auth/Cert (Routine) Specialty [...] LESS, EYELIDS (WRVU 11.64) Castro Preciado MD [facility] [place] [address] [facility] Referral ID Status Reason Start Date Expiration Date Visits Re quested Visits Authorized [id number] 1 1 Encounter Details Date Type Department Care Team (Late st Contact Info) Description 09/28/2023 11:42 AM EDT Anesthesia [place] [address] Jorge Luis Jasso MD [facility] [place] [address] Anesthesia Record Procedure Summary Procedure Name Responsible [...] by Sonu Ibarra RN PIV 09/28/23; 0849; wzdr-vmc-dbfmdt catheter system; 20 gauge; metacarpal vein (top [...] 1348 by Jessica Rios PIV 09/28/23; 1239; ztya-hcj-swhubu catheter system; 20 gauge; dorsal arch vein (top of foot), right; Anatomical Landmarks; US Not Used; Divya PARNELL; tolerated well; no longer indicated, removed per policy/procedure, catheter/device intact; 09/28/23; 1621 09/28/23 1239 by Alem Stokes, SHUTTLE CAR OPERATOR 09/28/23 1621 by Cassie Philippe RN documented [...] Procedure Summary Date: 09/28/23 Room / Location: [facility] OR Anesthesia Start: 1142 Anesthesia Stop: 1356 Procedures: ADJ.TISSUE TRANSFER, REARRANGEMENT, 10.1 TO 30 SQ.CM, SCALP (WRVU 9.72) (Right: Face) SPLIT THICKNESS SKIN SPLIT GRAFT,100SQ CM OR LESS, NECK (WRVU 10.15) (Right: Face) Diagnosis: (melanoma scalp) Surgeons: Castro Preciado MD Responsible Provider: Jorge Luis Jasso MD Anesthesia Type: general ASA Status: 2 All Anesthesia Providers: Anesthesiologist: Jorge Luis Jasso MD SHUTTLE CAR OPERATOR: Alem Stokes CRNA Student Nurse Production Line Operator: Jessica Rios Vitals Value Taken Time BP 122/65 09/28/23 1430 Temp 36.5 ??C (97.7 ??F) 09/28/23 1351 Pulse 86 09/28/23 1435 Resp 15 09/28/23 1435 SpO2 95 % 05/22/24 1433 Pain Level 4 09/28/23 1430 Vitals shown include unfiled device data. Patient Location: PACU/MTP Level of Consciousness: Awake and Alert Pain [...] Preciado MD at [facility] OR ??? PRO RADICAL RESECT OF TUMOR, SOFT TISSUE FACE OR SCALP, 2CM OR GREATER Right 09/16/2023 RADICAL RESECTION TUMOR SCALP; >2 CM (WRVU 15.26) performed by Castro Preciado MD at [facility] MAIN OR ??? TUBAL LIGATION Social History [...] risks discussed with patient. Plan discussed with SHUTTLE CAR OPERATOR. Anesthesia Screening documented in this encounter Plan of Treatment Upcoming Encounters Date Type Department Care Team (Late st Contact Info) Description 04/09/2024 4:15 PM EST TH Visit (TeleHealth) Hematology [place] [address] Jean-Pierre Peña MD [facility] DR [place] [address] 04/13/2024 2:30 PM EST Infusion Hematology Oncology at [address] [address] 04/30/2024 12:15 PM EST Laboratory Appointment Lab at [facility] Hematology Oncology [address] [place] [phone] 04/30/2024 1:15 PM EST Office Visit Hematology and Oncology at [place] [phone] Jean-Pierre Peña MD [facility] DR [place] [address] Vicky Burnham APRN [facility] [place] [address] 04/30/2024 2:30 PM EST Appointment Hematology [place] [address] 05/22/2024 9:15 AM EST Laboratory Appointment Lab at [facility] Hematology Oncology [address] [place] [phone] 05/22/2024 10:[address] Scan at [place] [phone] Jean-Pierre Peña MD [facility] DR [place] [address] 05/22/2024 11:30 AM EST Office Visit Dermatology at [address] [phone] Inderjit Vilchis MD [facility] DR GILBERTO [place] [address] 05/22/2024 2:00 PM EST Office Visit Hematology [place] [phone] Jean-Pierre Peña MD [facility] DR [place] [address] 05/22/2024 3:30 PM EST Appointment Hematology [place] [phone] 06/11/2024 4:15 PM EST TH Visit (TeleHealth) Hematology [place] [phone] Jean-Pierre Peña MD [facility] DR [place] [address] 06/12/2024 8:30 AM EST Infusion Hematology Oncology at [address] [phone] documented as of this encounter [...] mg documented in this encounter Care Teams Globe Changer Relationship Specialty Start Date End Date Taylor Bryant APRN [address] [place] [address] PCP - General 03/31/10 documented as of this encounter
--- OUTSIDE RECORDS SUMMARY | 2024-04-02 14:01 | XMS_ITS | Encounter Summary ---
Author Organization [facility] Address [facility] [place] [address] Care Team Providers Care Backup Administrator Name Role Phone Taylor Bryant APRN Primary Care Provider [phone] Encounter Details Date Type Department Care Team (Latest Contact Info) Description 10/04/2023 10:27 AM EDT Hospital Encounter Hematology and Oncology at [facility] [place] [place] [address] Medication management; Malignant melanoma of scalp; Malignant [...] TH Visit (TeleHealth) Hematology [place] [address] Jean-Pierre Peña MD [facility] [place] [address] 04/13/2024 2:30 PM EST Infusion Hematology Oncology at [address] [phone] 04/30/2024 12:15 PM EST Laboratory Appointment Lab at [facility] Hematology Oncology [address] [place] [phone] 04/30/2024 1:15 PM EST Office Visit Hematology [place] [phone] Jean-Pierre Peña MD [facility] DR [place] [address] Vicky Burnham APRN [facility] [place] [address] 04/30/2024 2:30 PM EST Appointment Hematology [place] [address] 05/22/2024 9:15 AM EST Laboratory Appointment Lab at [facility] Hematology Oncology [address] [place] [phone] 05/22/2024 10:[address] [place] [phone] Jean-Pierre Peña MD [facility] [place] [address] 05/22/2024 11:30 AM EST Office Visit Dermatology at [address] [phone] Inderjit Vilchis MD [facility] DR GIL[facility]ERT[place] [address] 05/22/2024 2:00 PM EST Office Visit Hematology [place] [address] Jean-Pierre Peña MD [facility] DR [place] [address] 05/22/2024 3:30 PM EST Appointment Hematology and Oncology at [facility] [place] [phone] 06/11/2024 4:15 PM EST TH Visit (TeleHealth) Hematology and Oncology at [facility] [place] [address] Jean-Pierre Peña MD [facility] DR [place] [address] 06/12/2024 8:30 AM EST Infusion Hematology Oncology at [address] [phone] documented as of this encounter Procedures Procedure [...] (ABNORMAL) Differential, Automated (10/04/2023 10:34 AM EDT) Pathologist [facility] Neutrophil % 68.3 % [facility] Neutrophil Absolute 5.87 1.70 - 6.10 x10(3)/ L [facility] Lymph % 17.5 % [facility] Lymphocytes Abs 1.5 0.9 - 3.2 x10(3)/ L [facility] Monocyte % 7.5 % [facility] Monocyte Abs 0.6 0.3 - 0.9 x10(3)/[facility] Eos % 5.6 % [facility] Eosinophils Abs 0.5(H) 0.0 - 0.4 x10(3)/[facility] Basophil % 0.9 % [facility] Baso Absolute 0.1 0.0 - 0.1 x10(3)/ L [facility] Immature Gran % 0.20 % [facility] Comment: Immature granulocytes(IG's)percentage and absolute count will include metamyelocytes, myelocytes, and promyelocytes. Blood smears from CBCs yielding IG's will be scanned manually for concordance. If this scan disagrees with the automated IG or if promyelocytes are noted, a manual differential will be performed. Immature Gran Absolute 0.02 0.00 - 0.04 x10(3)/ L [facility] Blood 10/04/2023 10:3 4 AM EDT 10/04/2023 10:47 AM EDT Narrative Resulting Agency Comment Spec In Lab Jean-Pierre Peña MD HEMATOLOGY ORDERABLE S [facility] [place] [address] * (ABNORMAL) Hemogram (10/04/2023 10:34 AM EDT) White Blood Cell 8.6 4.0 - 9.5 x10(3)/ L [facility] Red Blood Cell 4.02 4.00 - 5.21 x10(6)/mc L [facility] Hemoglobin 12.1 11.7 - 15.5 g/dL [facility] Hematocrit 36.8 35.7 - 45.8 % [facility] Mean Cell Volume 91.5 82.6 - 94.4 fL [facility] Mean Cell Hemoglobin 30.1 27.1 - 32.0 pg [facility] Mean Cell Hemoglobin Concentration 32.9 31.7 - 35.0 g/dL [facility] Platelet 577(H) 145 - 357 x10(3)/ L [facility] RDW Standard Deviation 47.8(H) 37.0 - 46.0 fL [facility] RDW coefficient of variation 14.2(H) 11.5 - 14.1 % [facility] Mean Platelet Volume 10.0 7.6 - 12.9 fL [facility] NRBC% auto 0.0 % [facility] NRBC Absolute 0.000 0.000 - 0.000 x10(3)/ L [facility] Blood 10/04/2023 10:3 4 AM EDT 10/04/2023 10:47 AM EDT Narrative Resulting Agency Comment Spec In Lab Jean-Pierre Peña MD HEMATOLOGY ORDERABLE S [facility] [place] [address] * Lactate Dehydrogenase (10/04/2023 10:34 AM EDT) Lactate Dehydrogenase 205 110 - 220 unit/L [facility] Blood 10/04/2023 10:3 4 AM EDT 10/04/2023 10:47 AM EDT Narrative Resulting Agency Comment Spec In Lab Jean-Pierre Peña MD CHEMISTRY ORDERABLES Performing Organization Address City/[facility]/ZIP Co de Phone Number [facility] [place] [address] * T4, free (10/04/2023 10:34 AM EDT) Free T4 1.30 0.93 - 1.70 ng/dL [facility] Comment: Reference Interval (ng/dL): Females: ??First Trimester: 0.97-1.68 ??Second Trimester: 0.77-1.51 ??Third Trimester: 0.77-1.49 Blood 10/04/2023 10:3 4 AM EDT 10/04/2023 10:47 AM EDT Narrative Resulting Agency Comment Spec In Lab Jean-Pierre Peña MD CHEMISTRY ORDERABLES Performing Organization Address [facility] Co de Phone Number [facility] [place] [address] * TSH (10/04/2023 10:34 AM EDT) Thyroid Stimulating Hormone 0.52 0.27 - 4.20 mcIU/mL [facility] Comment: Reference Interval (mcIU/mL): Females: ??First Trimester: 0.23-3.88 ??Second Trimester: 0.22-3.90 ??Third Trimester: 0.44-4.66 Blood 10/04/2023 10:3 4 AM EDT 10/04/2023 10:47 AM EDT Narrative Resulting Agency Comment Spec In Lab Jean-Pierre Peña MD CHEMISTRY ORDERABLES Performing Organization Address [facility] Co de Phone Number [facility] [place] [address] * (ABNORMAL) Comprehensive metabolic panel (non-fasting) (10/04/2023 10:34 AM EDT) Glucose 114 65 - 199 mg/dL [facility] Comment:Diabetes: >=200 mg/d L plus symptoms Blood Urea Nitrogen 23(H) 8 - 18 mg/dL [facility] [...] 107 mmol/L [facility] Carbon Dioxide 24 22 - 31 mmol/L [facility] Anion Gap 10 5 - 15 mmol/L [facility] Calcium 9.6 8.5 - 10.5 mg/dL [facility] Protein, Total 7.0 6.1 - 8.0 g/dL [facility] Albumin 4.2 3.2 - 5.2 g/dL [facility] Aspartate Aminotransferase 27 0 - 30 unit/L [facility] Alanine Aminotransferase 46(H) 0 - 30 unit/L [facility] Alkaline Phosphatase 167(H) 35 - 105 unit/L [facility] Bilirubin, Total 0.4 0.2 - 1.3 mg/dL [facility] Est Glomerular Filtration Rate 91 >=60 mL/min/1. 73 m?? 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
--- OUTSIDE RECORDS SUMMARY | 2024-04-02 14:01 | XMS_ITS | Encounter Summary ---
Author Organization [facility] Address [facility] [place] [address] Care Team Providers Care Prints And Drawings Curator Name Role Phone Taylor Bryant APRN Primary Care Provider [phone] Encounter Details Date Type Department Care Team ([facility] st Contact Info) Description 09/28/2023 Notes Only Hematology and Oncology at [facility] [place] [address] Brianne German RN Social History Tobacco Use [...] TH Visit (TeleHealth) [place] [address] Jean-Pierre Peña MD [facility] DR [place]Y [place] [address] 04/13/2024 2:30 PM EST Infusion Hematology Oncology at [address] [phone] 04/30/2024 12:15 PM EST Laboratory Appointment Lab at [facility] Hematology Oncology [address] [place] [phone] 04/30/2024 1:15 PM EST Office Visit Hematology [place] [phone] Jean-Pierre Peña MD [facility] DR [place]Y [place] [address] Vicky Burnham APRN [facility] [place] [address] 04/30/2024 2:30 PM EST Appointment Hematology [place] [address] 05/22/2024 9:15 AM EST Laboratory Appointment Lab at [facility] Hematology Oncology [address] [place] [phone] 05/22/2024 10:[address] [place] [place] [phone] Jean-Pierre Peña MD [facility] DR [place] [address] 05/22/2024 11:30 AM EST Office Visit Dermatology at [address] [phone] Inderjit Vilchis MD [facility] DR GILBERTO [place] [address] 05/22/2024 2:00 PM EST Office Visit Hematology [place] [phone] Jean-Pierre Peña MD [facility] DR [place] [address] 05/22/2024 3:30 PM EST Appointment Hematology [place] [address] 06/11/2024 4:15 PM EST TH Visit (TeleHealth) [place]ology [place] [address] Jean-Pierre Peña MD [facility] DR [place] [address] 06/12/2024 8:30 AM EST Infusion Hematology Oncology at [address] [phone] documented as of this encounter Visit Diagnoses Not on filedocumented in this encounter Care Teams Prints And Drawings Curator Relationship Specialty Start Date End Date Taylor Bryant, ZARA [address] [place] [address] PCP - General 03/31/10 documented as of this encounter
--- OUTSIDE RECORDS SUMMARY | 2024-04-02 14:01 | XMS_ITS | Encounter Summary ---
Author Organization [facility] Address [facility] [address] Care Team Providers Care Staff Psychiatrist Name Role Phone Taylor Bryant APRN Primary Care Provider [phone] Encounter Details Date Type Department Care Team [...] in a jail (including now)? No 07/24/2023 [facility] Inpatient Questions Answer Date Recorded Does Anyone [...] TH Visit (TeleHealth) Hematology [place] [address] Jean-Pierre Peña MD [facility] DR HEMATOLOGY [place] [address] 04/13/2024 2:30 PM EST Infusion Hematology Oncology at [address] [address] 04/30/2024 12:15 PM EST Laboratory Appointment Lab at [facility] Hematology Oncology [address] [place] [phone] 04/30/2024 1:15 PM EST Office Visit Hematology [place] [address] Jean-Pierre Peña MD [facility] DR HEMATOLOGY [place] [address] Vicky Burnham APRN [facility] [place] [address] 04/30/2024 2:30 PM EST Appointment Hematology [place] [address] 05/22/2024 9:15 AM EST Laboratory Appointment Lab at [facility] Hematology Oncology [address] [place] [phone] 05/22/2024 10:[address] [place] [place] [address] Jean-Pierre Peña MD [facility] DR HEMATOLOGY [place] [address] 05/22/2024 11:30 AM EST Office Visit Dermatology at [address] [phone] Inderjit Vilchis MD [facility] [place] [address] 05/22/2024 2:00 PM EST Office Visit Hematology [place] [address] Jean-Pierre Peña MD [facility] DR HEMATOLOGY [place] [address] 05/22/2024 3:30 PM EST Appointment Hematology [place] [address] 06/11/2024 4:15 PM EST TH Visit (TeleHealth) [place]ology [place] [address] Jean-Pierre Peña MD [facility] HEMATOLOGY [place] [address] 06/12/2024 8:30 AM EST Infusion Hematology Oncology at [address] [phone] documented as of this encounter Visit Diagnoses Not on filedocumented in this encounter Care Teams Staff Psychiatrist Relationship Specialty Start Date End Date Taylor Bryant APRN [address] [place] [address] PCP - General 03/31/10 documented as of this encounter
--- OUTSIDE RECORDS SUMMARY | 2024-04-02 14:01 | XMS_ITS | Encounter Summary ---
Author Organization [facility] [place] [address] Care Team Providers Care Manager System Name Role Phone Taylor rByant APRN Primary Care Provider [phone] [phone] Reason for Visit * Auth/Cert (Routine) Specialty [...] LESS, EYELIDS (WRVU 11.64) Justa Preciado MD [facility] [place] [address] [facility] Referral ID Status Reason Start Date Expiration Date Visits Re quested Visits Authorized [id number] 1 1 Encounter Details Date Type Department Care Team (Latest Contact Info) Description 09/28/2023 8:24 AM EDT - 09/28/2023 5:04 PM EDT Hospital Encounter [place] [address] Justa Preciado MD [facility] [place] [address] Discharge Disposition: Home Social History Tobacco Use Types Packs/Day Years Used Date Smoking Tobacco: Former Smokeless Tobacco: Never Comments:quit at age 35 Alcohol Use Standard Drinks/Week Comments Yes 0 (1 standard drink = 0.6 oz pur e alcohol) social gatherings [facility] Utilities Answer Date Recorded In the [...] Program 8a-5pm Tuesday-Tuesday. All other times, call [phone] and ask for the anesthesiologist retail sales vitamin consultant. POST ANESTHESIA INSTRUCTIONS Go home, rest, use [...] Provider Department Center 10/04/2023 10:30 AM LABORATORY, [facility] [address] [place] [address] 10/04/2023 11:30 AM Jean-Pierre Peña MD [facility] HEM ONC [facility] 10/04/2023 1:00 PM [facility] [address] 10/06/2023 1:40 PM Justa Preciado MD [facility] KEVIN [facility] 10/24/2023 7:45 AM LABORATORY, [address] 10/24/2023 8:45 AM Jean-Pierre Peña MD [facility] HEM ONC [facility] 10/24/2023 10:00 AM [facility] [address] 11/14/2023 7:45 AM LABORATORY, [address] 11/14/2023 8:45 AM Jean-Pierre Peña MD [facility] HEM ONC [facility] 11/14/2023 10:00 AM [facility] [address] 12/20/2023 2:15 PM Inderjit Vilchis MD [facility] documented in this encounter Medications at [...] Aviles MD, PGY3 09/28/2023 11:06 AM Pager #[phone] ENT Team Pager: [phone] documented in this encounter Miscellaneous Notes * Op Note - Justa Preciado MD - 09/28/2023 12:22 PM EDT [facility] Operative Note Patient Name: Keeley Gutierrez : [id number] MR#: [id number] Case Date: 09/28/2023 Surgeon: Surgeons and Role: [...] TH Visit (TeleHealth) [place] [address] Jean-Pierre Peña MD [facility] [place] [address] 04/13/2024 2:30 PM EST Infusion Hematology Oncology at [address] [address] 04/30/2024 12:15 PM EST Laboratory Appointment Lab at [facility] Hematology Oncology [address] [place] [phone] 04/30/2024 1:15 PM EST Office Visit [place] [address] Jean-Pierre Peña MD [facility] [address] [place] [address] Vicky Burnham APRN [facility] [place] [address] 04/30/2024 2:30 PM EST Appointment [place]ematology [place] [address] 05/22/2024 9:15 AM EST Laboratory Appointment Lab at [facility] Hematology Oncology [address] [place] [phone] 05/22/2024 10:[address] [place] [place] [address] Jean-Pierre Peña MD [facility] [address] [place] [address] 05/22/2024 11:30 AM EST Office Visit Dermatology at [facility] [address] [place] [address] Inderjit Vilchis MD [facility] DR GILBERTO [place] [address] 05/22/2024 2:00 PM EST Office Visit [place]ology [place] [address] Jean-Pierre Peña MD [facility] [address] [place] [address] 05/22/2024 3:30 PM EST Appointment [place] [phone] 06/11/2024 4:15 PM EST TH Visit (TeleHealth) [place] [phone] Jean-Pierre Peña MD [facility] [address] [place] [address] 06/12/2024 8:30 AM EST Infusion Hematology Oncology at [address] [address] documented as of this encounter Procedures Procedure Name Priority Date/Time Associated Diagnosis Comments SPLIT THICKNESS SKIN SPLIT GRAFT,100SQ CM OR LESS, NECK Routine 09/28/2023 1:43 PM EDT ADJ.TISSUE TRANSFER, REARRANGEMENT, 10.1 TO 30 SQ.CM, SCALP Routine 09/28/2023 1:42 PM EDT Split Grft, Head, Fac, Hand, Feet <100Sqcm ([id number]) 09/28/2023 11:43 AM EDT melanoma scalp Adj Tiss Transfer Scalp, Extrem 10.1-30 ([id number]) 09/28/2023 11:43 AM EDT melanoma scalp documented [...] medications are indicated. Begin oral analgesics when WAREHOUSE AND RECEIVING SUPERVISOR is discontinued., Routine Given 09/28/2023 4:16 PM [...] medications are indicated. Begin oral analgesics when WAREHOUSE AND RECEIVING SUPERVISOR is discontinued., Routine 1616 (Given - Provid [...] Routine documented in this encounter Care Teams Manager System Relationship Specialty Start Date End Date Taylor Bryant APRN [address] [place] [address] PCP - General 03/31/10 documented as of this encounter
--- OUTSIDE RECORDS SUMMARY | 2024-04-02 14:01 | XMS_ITS | Encounter Summary ---
Author Organization [facility] Address [facility] [place] [address] Care Team Providers Care Director Emergency Department Name Role Phone Taylor Bryant APRN Primary Care Provider [phone] [phone] Reason for Visit * Reason Comments Specialty Pharmacy Review Tafinlar 75mg capsule Encounter Details Date Type Department Care Team ([facility] st Contact Info) Description 09/12/2023 Specialty Pharmacy Pharmacy at [facility] [place] [phone] Tegan Mcnamara, [employer] OFFICER Social History Tobacco Use Types Packs/Day Years Used Date Smoking Tobacco: Former Smokeless Tobacco: Never Comments:quit at age 35 Alcohol Use Standard Drinks/Week Comments Yes 0 (1 standard drink = 0.6 oz pur e alcohol) social gatherings [facility] Utilities Answer Date Recorded In the [...] Mcnamara - 09/12/2023 11:59 PM EDT The [facility] has completed a benefits investigation for Keeley Gutierrez to review their eligibility to fill at [facility]. Per patient's medication list they are prescribed Tafinlar 75mg capsule and the medication is able to be filled at the [facility]. The patient is eligible to fill the medication through Specialty pharmacy with a $11.20 copay. No PA required. The patient is not starting therapy at this time. documented in this encounter Plan of Treatment Upcoming Encounters Date Type Department Care Team (Late st Contact Info) Description 04/09/2024 4:15 PM EST TH Visit (TeleHealth) Hematology [place] [address] Jean-Pierre Peña MD [facility] [place] [address] 04/13/2024 2:30 PM EST Infusion Hematology Oncology at [address] [address] 04/30/2024 12:15 PM EST Laboratory Appointment Lab at [facility] [place] Hematology Oncology [address] [place] [phone] 04/30/2024 1:15 PM EST Office Visit Hematology [place] [address] Jean-Pierre Peña MD [facility] DR [place] [address] Vicky Burnham APRN [facility] [place] [address] 04/30/2024 2:30 PM EST Appointment Hematology [place] [address] 05/22/2024 9:15 AM EST Laboratory Appointment Lab at [facility] [place] [place] Hematology [address] [phone] 05/22/2024 10:[address] Scan at [place] [phone] Jean-Pierre Peña MD [facility] [place] [address] 05/22/2024 11:30 AM EST Office Visit Dermatology at [address] [address] Inderjit iVlchis MD [facility] DR GILBERTO [place] [address] 05/22/2024 2:00 PM EST Office Visit Hematology [place] [address] Jean-Pierre Peña MD [facility] [place] [address] 05/22/2024 3:30 PM EST Appointment Hematology [place] [phone] 06/11/2024 4:15 PM EST TH Visit (TeleHealth) Hematology [place] [address] Jean-Pierre Peña MD [facility] DR [place] [address] 06/12/2024 8:30 AM EST Infusion Hematology Oncology at [address] [phone] documented as of this encounter Visit Diagnoses Not on filedocumented in this encounter Care Teams Director Emergency Department Relationship Specialty Start Date End Date Taylor Bryant APRN [address] [place] [address] PCP - General 03/31/10 documented as of this encounter
--- OUTSIDE RECORDS SUMMARY | 2024-04-02 14:01 | XMS_ITS | Encounter Summary ---
Author Organization [facility] [place] [address] Care Team Providers Care Sous Chef Kitchen Manager Name Role Phone Taylor Bryant APRN Primary Care Provider [phone] [phone] Reason for Visit * Auth/Cert (Routine) Specialty [...] LESS, EYELIDS (WRVU 11.64) Justa Preciado MD [facility] [place] [address] [facility] Referral ID Status Reason Start Date Expiration Date Visits Re quested Visits Authorized [id number] 1 1 Encounter Details Date Type Department Care Team (Late st Contact Info) Description 09/28/2023 9:45 AM EDT - 09/28/2023 1:30 PM EDT Surgery [place] [phone] Justa Preciado MD [facility] [place] [address] ADJ.TISSUE TRANSFER, REARRANGEMENT, 10.1 TO 30 SQ.CM, SCALP (WRVU 9.72) Social History Tobacco Use Types Packs/Day Years Used Date Smoking Tobacco: Former Smokeless Tobacco: Never Comments:quit at age 35 Alcohol Use Standard Drinks/Week Comments Yes 0 (1 standard drink = 0.6 oz pur e alcohol) social gatherings [facility] Utilities Answer Date Recorded In the [...] in a residential (including now)? No 07/24/2023 DH IPV Inpatient [...] Program 8a-5pm Tuesday-Tuesday. All other times, call [phone] and ask for the anesthesiologist circulation crew leader. POST ANESTHESIA INSTRUCTIONS Go home, rest, use [...] Provider Department Center 10/04/2023 10:30 AM LABORATORY, [facility] [address] [place] [address] 10/04/2023 11:30 AM Jean-Pierre Peña MD [facility] HEM ONC [facility] 10/04/2023 1:00 PM [facility] INFUSION THERAPY [facility] INF [address] [place] [address] 10/06/2023 1:40 PM Justa Preciado MD [facility] KEVIN [facility] 10/24/2023 7:45 AM LABORATORY, [facility] [address] [place] [address] 10/24/2023 8:45 AM Jean-Pierre Peña MD [facility] HEM ONC [facility] 10/24/2023 10:00 AM [facility] INFUSION THERAPY [facility] [address] [place] [address] 11/14/2023 7:45 AM LABORATORY, [facility] [address] [place] [address] 11/14/2023 8:45 AM Jean-Pierre Peña MD [facility] HEM ONC [facility] 11/14/2023 10:00 AM LEB INFUSION THERAPY [facility] [address] [place] [address] 12/20/2023 2:15 PM Inderjit Vilchis MD [facility] documented in this encounter Medications at Time [...] Aviles MD, PGY3 09/28/2023 11:06 AM Pager #[phone] ENT Team Pager: [phone] documented in this encounter Miscellaneous Notes * Op Note - Justa Preciado MD - 09/28/2023 12:22 PM EDT [facility] Operative Note Patient Name: Keeley Gutierrez : [id number] MR#: [id number] Case Date: 09/28/2023 Surgeon: Surgeons and Role: [...] TH Visit (TeleHealth) [place]ology [place] [address] Jean-Pierre Peña MD [facility] DR [place] [address] 04/13/2024 2:30 PM EST Infusion Hematology Oncology at [address] [address] 04/30/2024 12:15 PM EST Laboratory Appointment Lab at [facility] Hematology Oncology [address] [place] [phone] 04/30/2024 1:15 PM EST Office Visit Hematology [place] [address] Jean-Pierre Peña MD [facility] [place] [address] Vicky Burnham APRN [facility] [place] [address] 04/30/2024 2:30 PM EST Appointment Hematology [place] [address] 05/22/2024 9:15 AM EST Laboratory Appointment Lab at [facility] Hematology Oncology [address] [place] [phone] 05/22/2024 10:[address] [place] [place] [address] Jean-Pierre Peña MD [facility] DR [place] [address] 05/22/2024 11:30 AM EST Office Visit Dermatology at [facility] [address] [place] [phone] Inderjit Vilchis MD [facility] DR GILBERTO [place] [address] 05/22/2024 2:00 PM EST Office Visit Hematology [place] [phone] Jean-Pierre Peña MD [facility] [address] [place] [address] 05/22/2024 3:30 PM EST Appointment Hematology [place] [phone] 06/11/2024 4:15 PM EST TH Visit (TeleHealth) Hematology [place] [phone] Jean-Pierre Peña MD [facility] DR [place] [address] 06/12/2024 8:30 AM EST Infusion Hematology Oncology at [address] [phone] documented as of this encounter Procedures Procedure Name Priority Date/Time Associated Diagnosis Comments SPLIT THICKNESS SKIN SPLIT GRAFT,100SQ CM OR LESS, NECK Routine 09/28/2023 1:43 PM EDT ADJ.TISSUE TRANSFER, REARRANGEMENT, 10.1 TO 30 SQ.CM, SCALP Routine 09/28/2023 1:42 PM EDT Split Grft, Head, Fac, Hand, Feet <100Sqcm ([id number]) 09/28/2023 11:43 AM EDT melanoma scalp Adj Tiss Transfer Scalp, Extrem 10.1-30 ([id number]) 09/28/2023 11:43 AM EDT melanoma scalp documented [...] medications are indicated. Begin oral analgesics when CEMENT STORAGE WORKER is discontinued., Routine Given 09/28/2023 4:16 PM [...] medications are indicated. Begin oral analgesics when CEMENT STORAGE WORKER is discontinued., Routine 1616 (Given - Provid [...] Routine documented in this encounter Care Teams Sous Chef Kitchen Manager Relationship Specialty Start Date End Date Taylor Bryant APRN [address] [place] [address] PCP - General 03/31/10 documented as of this encounter
--- OUTSIDE RECORDS SUMMARY | 2024-04-02 14:02 | XMS_ITS | Encounter Summary ---
Author Organization [facility] Address [facility] [place] [address] Care Team Providers Care Electrical Sign Wirer Name Role Phone Taylor Bryant APRN Primary Care Provider [phone] Reason for Visit * Reason Comments Prior Authorization [employer] Encounter Details Date Type Department Care Team (Late st Contact Info) Description 08/23/2023 Specialty Pharmacy Pharmacy at [facility] [place] [phone] Cristiano Ruvalcaba, INVESTOR Social History Tobacco Use Types Packs/Day Years Used Date Smoking Tobacco: Former Smokeless Tobacco: Never Comments:quit at age 35 Alcohol Use Standard Drinks/Week Comments Yes 0 (1 standard drink = 0.6 oz pur e alcohol) social gatherings [facility] Utilities Answer Date Recorded In the [...] Keeley Gutierrez Patient : [id number] Patient Address: [address] [place] [address] (home) Medication Name: MEKINIST 2 MG TABLET Medication ID: [place] [facility] Patient Location Comment: Medication Strength Frequency Requested: Take one tablet by mouth daily Qty/Day Supply: New Start: New to Therapy Diagnosis & ICD-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 If applicable, a pharmacist will speak with the patient to offer our specialty pharmacy services and to arrange delivery of their medication. Cristiano Ruvalcaba 08/23/23 11:28 AM documented in this encounter Plan of Treatment Upcoming Encounters Date Type Department Care Team (Late st Contact Info) Description 04/09/2024 4:15 PM EST TH Visit (TeleHealth) Hematology [place] [address] Sharath Peña MD [facility] DR [place] [address] 04/13/2024 2:30 PM EST Infusion Hematology Oncology at [address] [address] 04/30/2024 12:15 PM EST Laboratory Appointment Lab at [facility] [place] On[place] [address] [place] [phone] 04/30/2024 1:15 PM EST Office Visit Hematology [place] [address] Sharath Peña MD [facility] DR [place] [address] Vicky Burnham APRN [facility] [place] [address] 04/30/2024 2:30 PM EST Appointment Hematology [place] [address] 05/22/2024 9:15 AM EST Laboratory Appointment Lab at [facility] Hematology Oncology [address] [place] [phone] 05/22/2024 10:[address] [place] [address] Shaarth Peña MD [facility] DR [place] [address] 05/22/2024 11:30 AM EST Office Visit Dermatology at [facility] [address] [place] [address] Inderjit Vilchis MD [facility] DR GILBERTO [place] [address] 05/22/2024 2:00 PM EST Office Visit Hematology [place] [address] Sharath Peña MD [facility] DR [place] [address] 05/22/2024 3:30 PM EST Appointment Hematology [place] [address] 06/11/2024 4:15 PM EST TH Visit (TeleHealth) Hematology [place] [address] Sharath Peña MD [facility] DR [place] [address] 06/12/2024 8:30 AM EST Infusion Hematology Oncology at [address] [address] documented as of this encounter Visit Diagnoses Not on filedocumented in this encounter Care Teams Electrical Sign Wirer Relationship Specialty Start Date End Date Taylor Bryant APRN [address] [place] [address] PCP - General 03/31/10 documented as of this encounter
--- OUTSIDE RECORDS SUMMARY | 2024-04-02 14:02 | XMS_ITS | Encounter Summary ---
Author Organization [facility] Address [facility] [address] Care Team Providers Care Surfacer Operator Name Role Phone [place] APRN Primary Care Provider +1 -[phone] Encounter Details Date Type Department Care Team ([facility] st Contact Info) Description 09/05/2023 Telephone [place] [phone] Roselyn Sánchez Social History Tobacco Use Types [...] AM EDT [facility] Specialist spoke to Keeley. [facility] awarded $175 check for gas expenses toand from . She asked about the [facility] dona. She has not opened the envelope I gave her. I explained the process.She has automatic payment. She will need to have her loan cash processing specialist create a bill for this dona. Roselyn Sánchez * Telephone Encounter - Roselyn Sánchez - 09/05/2023 3:43 PM EDT [facility] Special[facility] spoke with Keeley today about grants etc. Keeley is struggling financially at this time. Today I applied for [facility] dona asking for assistance with $175 for gas expenses. Keeley said she is a bit down due to her diagnosis. She said she has spoke to her PCP and will begetting support thru [employer]. I offered for a WOOD CASKET MAKER to speak with her. She declined. I have dropped off a envelope for her at 3K. She will picking table worker on 09/05. with her See below. Dear Keeley, 09/05/2023 Just a recap of our conversation. Since you are in treatment you may be eligible for a [facility] dona. They offer one time assistance. This isn't a guaranty you will receive an award. I will need copies of one or two bills to submit to them. Bills need to have your name, your address, account number, company name and billing address and bills no older than 60 days. They pay the vendor directly. Devin Saldana [employer] ([facility])dona may assist with up to $800 toward household bill(s). The Programdoes not help with the cost of medical expenses, debt collections or credit card bills. Submitted applications are processed within 6-7 weeks. They also provide a grocery gift card. This portion of the dona usually process in about 2-3 weeksonce application has been submitted. [employer] dona requires proof of household income. They accept any of these sources: a month's worth of last pay stubs for anyone who works in the household, last year's taxes- 1040 forms, social security benefits letter. Please send me a copy of the document. NOT the original. I have applied for assistance with gas thru the [facility] dona. This dona takes about a week to process. I will notify you of the determination. Please keep copies of your gas receipts. When you reach about $175 send them to me in the enclosed envelope. I have enclosed: [facility] dona application and signature page Six caf?? [...] TH Visit (TeleHealth) [place] [address] Jean-Pierre Peña MD [facility] [place] [address] 04/13/2024 2:30 PM EST Infusion Hematology Oncology at [address] [address] 04/30/2024 12:15 PM EST Laboratory Appointment Lab [place] [facility] [place] [address] [place] [phone] 04/30/2024 1:15 PM EST Office Visit Hematology and Oncology at [place] [phone] Jean-Pierre Peña MD [facility] DR [place] [address] Vicky Burnham APRN [facility] [place] [address] 04/30/2024 2:30 PM EST Appointment Hematology and Oncology at [address] 05/22/2024 9:15 AM EST Laboratory Appointment Lab at [facility] [place] [address] [address] 05/22/2024 10:[address] Scan at [place] [phone] Jean-Pierre Peña MD [facility] DR [place] [address] 05/22/2024 11:30 AM EST Office Visit Dermatology at [address] [address] Inderjit Vilchis MD [facility] DR GILBERTO [place] [address] 05/22/2024 2:00 PM EST Office Visit [place] [address] Jean-Pierre Peña MD [facility] [place] [address] 05/22/2024 3:30 PM EST Appointment [place] [address] 06/11/2024 4:15 PM EST TH Visit (TeleHealth) [place] [address] Jean-Pierre Peña MD [facility] DR [place] [address] 06/12/2024 8:30 AM EST Infusion Hematology Oncology at [address] [phone] documented as of this encounter Visit Diagnoses Not on filedocumented in this encounter Care Teams Surfacer Operator Relationship Specialty Start Date End Date [place] Bryant, BIOPROCESS ENGINEER [address] [place] [address] PCP - General 03/31/10 documented as of this encounter
--- OUTSIDE RECORDS SUMMARY | 2024-04-02 14:02 | XMS_ITS | Encounter Summary ---
Author Organization [facility] Address [facility] [address] Care Team Providers Care Automatic Furnace Operator Name Role Phone [place] APRN Primary Care Provider +1 [phone] Encounter Details Date Type Department Care Team (Latest Contact Info) Description 08/18/2023 Travel Social History Tobacco Use Types Packs/Day Years Used Date Smoking Tobacco: Former Smokeless Tobacco: Never Comments:quit at age 35 Alcohol Use Standard Drinks/Week Comments Yes 0 (1 standard drink = 0.6 oz pur e alcohol) social gatherings [facility] Utilities Answer Date Recorded In the past [...] TH Visit (TeleHealth) [place] [address] Jean-Pierre Peña MD [facility] DR HEMATOLOGY [place] [address] 04/13/2024 2:30 PM EST Infusion Hematology Oncology at [address] [phone] 04/30/2024 12:15 PM EST Laboratory Appointment [place] [facility] [place] [address] [place] [phone] 04/30/2024 1:15 PM EST Office Visit [place]ology [place] [phone] Jean-Pierre Peña MD [facility] DR HEMATOLOGY [place] [address] Vicky Burnham APRN [facility] [place] [address] 04/30/2024 2:30 PM EST Appointment Hematology [place] [address] 05/22/2024 9:15 AM EST Laboratory Appointment Lab at [facility] [place] Oncology [address] [place] [phone] 05/22/2024 10:[address] [place] [place] [address] Jean-Pierre Peña MD [facility] DR HEMATOLOGY [place] [address] 05/22/2024 11:30 AM EST Office Visit Dermatology at [facility] [address] [place] [address] Inderjit Vilchis MD [facility] DR GILBERTO [place] [address] 05/22/2024 2:00 PM EST Office Visit [place]ematology [place] [address] Jean-Pierre Peña MD [facility] HEMATOLOGY [place] [address] 05/22/2024 3:30 PM EST Appointment Hematology [place] [address] 06/11/2024 4:15 PM EST TH Visit (TeleHealth) [place] [address] Jean-Pierre Peña MD [facility] HEMATOLOGY [place] [address] 06/12/2024 8:30 AM EST Infusion Hematology Oncology at [address] [phone] documented as of this encounter Visit Diagnoses Not on filedocumented in this encounter Care Teams Automatic Furnace Operator Relationship Specialty Start Date End Date [place] Bryant, DYNAMICIST [address] [place] [address] PCP - General 03/31/10 documented as of this encounter
--- OUTSIDE RECORDS SUMMARY | 2024-04-02 14:02 | XMS_ITS | Encounter Summary ---
Author Organization [facility] Address [facility] [place] [address] Care Team Providers Care Bike Assembler Name Role Phone [place] APRN Primary Care Provider [phone] [phone] Encounter Details Date Type Department Care Team (Latest Contact Info) Description 08/01/2023 Travel Social History Tobacco Use Types Packs/Day Years Used Date Smoking Tobacco: Former Smokeless Tobacco: Never Comments:quit at age 35 Alcohol Use Standard Drinks/Week Comments Yes 0 (1 standard drink = 0.6 oz pur e alcohol) social gatherings [facility] Utilities Answer Date Recorded In the past [...] TH Visit (TeleHealth) Hematology [place] [address] Jean-Pierre Peña MD [facility] DR HEMATOLOGY [place] [address] 04/13/2024 2:30 PM EST Infusion Hematology Oncology at [address] [phone] 04/30/2024 12:15 PM EST Laboratory Appointment Lab at [facility] Hematology Oncology [address] [place] [phone] 04/30/2024 1:15 PM EST Office Visit Hematology [place] [phone] Jean-Pierre Peña MD [facility] DR HEMATOLOGY [place] [address] Vicky Burnham APRN [facility] [place] [address] 04/30/2024 2:30 PM EST Appointment Hematology [place] [address] 05/22/2024 9:15 AM EST Laboratory Appointment Lab at [facility] Hematology Oncology [address] [place] [phone] 05/22/2024 10:[address] [place] [address] Jean-Pierre Peña MD [facility] DR HEMATOLOGY [place] [address] 05/22/2024 11:30 AM EST Office Visit Dermatology at [facility] [address] [place] [address] Inderjit Vilchis MD [facility] DR GILBERTO [place] [address] 05/22/2024 2:00 PM EST Office Visit Hematology [place] [address] Jean-Pierre Peña MD [facility] HEMATOLOGY [place] [address] 05/22/2024 3:30 PM EST Appointment Hematology [place] [address] 06/11/2024 4:15 PM EST TH Visit (TeleHealth) Hematology [place] [address] Jean-Pierre Peña MD [facility] HEMATOLOGY [place] [address] 06/12/2024 8:30 AM EST Infusion Hematology Oncology at [address] [phone] documented as of this encounter Visit Diagnoses Not on filedocumented in this encounter Care Teams Bike Assembler Relationship Specialty Start Date End Date [place] Bryant, PICC NURSE [address] [place] [id number] PCP - General 03/31/10 documented as of this encounter
--- OUTSIDE RECORDS SUMMARY | 2024-04-02 14:02 | XMS_ITS | Encounter Summary ---
Author Organization [facility] Address [facility] [place] [address] Care Team Providers Care Flight Test Data Acquisition Technician Name Role Phone [place] APRN Primary Care Provider +1 [phone] Encounter Details Date Type Department Care Team [...] TH Visit (TeleHealth) [place]ology [place] [address] Jean-Pierre Peña MD [facility] DR [place] [address] 04/13/2024 2:30 PM EST Infusion Hematology Oncology at [address] [phone] 04/30/2024 12:15 PM EST Laboratory Appointment Lab at [facility] [place] Hematology Oncology [address] [place] [phone] 04/30/2024 1:15 PM EST Office Visit [place] [phone] Jean-Pierre Peña MD [facility] DR [place] [address] Vicky Burnham APRN [facility] [place] [address] 04/30/2024 2:30 PM EST Appointment Hematology [place] [address] 05/22/2024 9:15 AM EST Laboratory Appointment Lab at [facility] Hematology Oncology [address] [place] [phone] 05/22/2024 10:[address] [place] [place] [address] Jean-Pierre Peña MD [facility] DR [place] [address] 05/22/2024 11:30 AM EST Office Visit Dermatology at [facility] [address] [place] [address] Inderjit Vilchis MD [facility] DR GILBERTO [place] [address] 05/22/2024 2:00 PM EST Office Visit [place]ematology [place] [address] Jean-Pierre Peña MD [facility] [place] [address] 05/22/2024 3:30 PM EST Appointment [place]emat[place] [address] 06/11/2024 4:15 PM EST TH Visit (TeleHealth) [place] [address] Jean-Pierre Peña MD [facility] [place] [address] 06/12/2024 8:30 AM EST Infusion Hematology Oncology at [address] [phone] documented as of this encounter Visit Diagnoses Not on filedocumented in this encounter Care Teams Flight Test Data Acquisition Technician Relationship Specialty Start Date End Date [place] Bryant, CAUSTIC LOADER [address] [place] [address] PCP - General 03/31/10 documented as of this encounter
--- OUTSIDE RECORDS SUMMARY | 2024-04-02 14:02 | XMS_ITS | Encounter Summary ---
Author Organization [facility] Address [facility] [place] [address] Care Team Providers Care Metal Tile Setter Name Role Phone [place] Bryant APRN Primary Care Provider [phone] [phone] Reason for Visit * Reason Comments Follow-up Encounter Details Date Type Department Care Team ([facility] st Contact Info) Description 08/23/2023 9:30 AM EDT Office Visit [place] [address] Jean-Pierre Peña MD [facility] DR HEMATOLOGY [place] [address] Malignant melanoma of scalp (Primary Dx); Medication management; Immunotherapy; Secondary malignancy of soft tissue Social History Tobacco Use Types Packs/Day Years Used Date Smoking Tobacco: Former Smokeless Tobacco: Never Comments:quit at age 35 Alcohol Use Standard Drinks/Week Comments Yes 0 (1 standard drink = 0.6 oz pur e alcohol) social gatherings [facility] Utilities Answer Date Recorded In the past 12 months has [employer], gas, oil, or water [employer] threatened to shut off services in your [...] TH Visit (TeleHealth) [place] [address] Jean-Pierre Peña MD [facility] DR HEMATOLOGY [place] [address] 04/13/2024 2:30 PM EST Infusion Hematology Oncology at [address] [address] 04/30/2024 12:15 PM EST Laboratory Appointment Lab at [facility] [place] [address] [phone] 04/30/2024 1:15 PM EST Office Visit [place]emat[place] [phone] Jean-Pierre Peña MD [facility] DR HEMATOLOGY [place] [address] Vicky Burnham APRN [facility] [place] [address] 04/30/2024 2:30 PM EST Appointment Hematology [place] [address] 05/22/2024 9:15 AM EST Laboratory Appointment Lab at [facility] Hematology Oncology [address] [place] [phone] 05/22/2024 10:[address] [place] [place] [address] Jean-Pierre Peña MD [facility] DR HEMATOLOGY [place] [address] 05/22/2024 11:30 AM EST Office Visit Dermatology at [facility] [address] [place] [address] Inderjit Vilchis MD [facility] [place] [address] 05/22/2024 2:00 PM EST Office Visit [place] [address] Jean-Pierre Peña MD [facility] DR HEMATOLOGY [place] [address] 05/22/2024 3:30 PM EST Appointment [place]emat[place] [address] 06/11/2024 4:15 PM EST TH Visit (TeleHealth) [place] [address] Jean-Pierre Peña MD [facility] DR HEMATOLOGY [place] [address] 06/12/2024 8:30 AM EST Infusion Hematology Oncology at [address] [phone] documented as of this encounter Visit Diagnoses Diagnosis Malignant melanoma of scalp- Primary 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
--- OUTSIDE RECORDS SUMMARY | 2024-04-02 14:02 | XMS_ITS | Encounter Summary ---
Author Organization Counts Include [facility] Address [facility] [place] [address] Care Team Providers Care Manager Completions Name Role Phone [place] APRN Primary Care Provider +1 [phone] Encounter Details Date Type Department Care Team (Latest Contact Info) Description 07/29/2023 Travel Social History Tobacco Use Types Packs/Day Years Used Date Smoking Tobacco: Former Smokeless Tobacco: Never Comments:quit at age 35 Alcohol Use Standard Drinks/Week Comments Yes 0 (1 standard drink = 0.6 oz pur e alcohol) social gatherings [facility] Utilities Answer Date Recorded In the [...] TH Visit (TeleHealth) [place]ematology [place] [address] Jean-Pierre Peña MD [facility] DR HEMATOLOGY [place] [address] 04/13/2024 2:30 PM EST Infusion Hematology Oncology at [address] [phone] 04/30/2024 12:15 PM EST Laboratory Appointment Lab [place] [facility] [place] [address] [place] [phone] 04/30/2024 1:15 PM EST Office Visit Hematology [place] [phone] Jean-Pierre Peña MD [facility] DR HEMATOLOGY [place] [address] Vicky Burnham APRN [facility] [place] [address] 04/30/2024 2:30 PM EST Appointment Hematology [place] [address] 05/22/2024 9:15 AM EST Laboratory Appointment Lab at [facility] [place] On[place] [address] [place] [phone] 05/22/2024 10:[address] [place] [place] [address] Jean-Pierre Peña MD [facility] DR HEMATOLOGY [place] [address] 05/22/2024 11:30 AM EST Office Visit Dermatology at [facility] [address] [place] [address] Inderjit Vilchis MD [facility] DR GILBERTO [place] [address] 05/22/2024 2:00 PM EST Office Visit Hematology [place] [address] Jean-Pierre Peña MD [facility] HEMATOLOGY [place] [address] 05/22/2024 3:30 PM EST Appointment Hematology [place] [address] 06/11/2024 4:15 PM EST TH Visit (TeleHealth) [place]ematology [place] [address] Jean-Pierre Peña MD [facility] HEMATOLOGY [place] [address] 06/12/2024 8:30 AM EST Infusion Hematology Oncology at [address] [phone] documented as of this encounter Visit Diagnoses Not on filedocumented in this encounter Care Teams Manager Completions Relationship Specialty Start Date End Date [place], SUPERVISOR [employer] F[employer] [address] [place] [address] PCP - General 03/31/10 documented as of this encounter
--- OUTSIDE RECORDS SUMMARY | 2024-04-02 14:02 | XMS_ITS | Encounter Summary ---
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, unspecified lymph node region Procedures [id number] pembrolizumab (Keytruda) Jean-Pierre Peña MD [facility] [address] [place] [address] Jean-Pierre Peña MD [facility] [address] [place] [address] Referral ID Status Reason Start Date Expiration Date V isits Requested Visits Authorized [id number] Authorized 07/25/2023 07/24/2024 99 99 Encounter Details Date Type Department Care Team (Latest Contact Info) Description 08/23/2023 8:27 AM EDT - 08/23/2023 11:59 PM EDT Hospital Encounter [place] [address] Medication management; Malignant melanoma of scalp; 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 can call [phone] or [phone] with questions or concerns. After clinic hours (5pm-8am Tuesday-Tuesday and weekends) pt can call [phone] and ask for the inventory coordinator/oncologist addiction treatment counselor. Keeley Gutierrez verbalized understanding of potential chemotherapy [...] Everywhere. * Pembrolizumab Injection (PEMBROLIZUMAB - INJECTION) (British) documented in this encounter Medications at Time [...] clinic hours (8am-5pm Tuesday-Tuesday): pt. can call [phone] or [phone] with questions or concerns. After clinic hours (5pm-8am Tuesday-Tuesday and weekends) pt can call [phone] and ask for the inventory coordinator/oncologist addiction treatment counselor. Keeley Gutierrez verbalized understanding of potential chemotherapy [...] TH Visit (TeleHealth) [place] [address] Jean-Pierre Peña MD [facility] [place] [address] 04/13/2024 2:30 PM EST Infusion Hematology Oncology at [address] [address] 04/30/2024 12:15 PM EST Laboratory Appointment Lab at [facility] Hematology Oncology [address] [place] [phone] 04/30/2024 1:15 PM EST Office Visit Hematology and Oncology at [place] [phone] Jean-Pierre Peña MD [facility] DR [place] [address] Vicky Burnham APRN [facility] [place] [address] 04/30/2024 2:30 PM EST Appointment [place]ematology [place] [address] 05/22/2024 9:15 AM EST Laboratory Appointment Lab at [facility] Hematology Oncology [address] [place] [phone] 05/22/2024 10:[address] [place] [place] [phone] Jean-Pierre Peña MD [facility] DR [place] [address] 05/22/2024 11:30 AM EST Office Visit Dermatology at [address] [phone] Inderjit Vilchis MD [facility] DR GIL[facility]ERT[place] [address] 05/22/2024 2:00 PM EST Office Visit [place]ematology [place] [address] Jean-Pierre Peña MD [facility] DR [place] [address] 05/22/2024 3:30 PM EST Appointment Hematology [place] [address] 06/11/2024 4:15 PM EST TH Visit (TeleHealth) [place] [address] Jean-Pierre Peña MD [facility] DR [place] [address] 06/12/2024 8:30 AM EST Infusion Hematology Oncology at [address] [address] documented as of this encounter Results * Lactate Dehydrogenase (08/23/2023 8:33 AM EDT) [facility] Lactate Dehydrogenase 165 110 - 220 unit/L [facility] Blood 08/23/2023 8:33 AM EDT 08/23/2023 8:59 AM EDT Narrative Resulting Agency Comment Spec In Lab Jean-Pierre Peña MD CHEMISTRY ORDERABLES [facility] [place] [address] * T4, free (08/23/2023 8:33 AM EDT) [facility] Signature Free T4 1.31 0.93 - 1.70 ng/dL [facility] Comment: Reference Interval (ng/dL): Females: ??First Trimester: 0.97-1.68 ??Second Trimester: 0.77-1.51 ??Third Trimester: 0.77-1.49 Blood 08/23/2023 8:33 AM EDT 08/23/2023 8:59 AM EDT Narrative Resulting Agency Comment Spec In Lab Jean-Pierre Peña MD CHEMISTRY ORDERABLES [facility] [place] [address] * TSH (08/23/2023 8:33 AM EDT) Pathologist [facility] Thyroid Stimulating Hormone 0.80 0.27 - 4.20 mcIU/mL [facility] Comment: Reference Interval (mcIU/mL): Females: ??First Trimester: 0.23-3.88 ??Second Trimester: 0.22-3.90 ??Third Trimester: 0.44-4.66 Blood 08/23/2023 8:33 AM EDT 08/23/2023 8:59 AM EDT Narrative Resulting Agency Comment Spec In Lab Jean-Pierre Peña MD CHEMISTRY ORDERABLES Performing Organization Address [facility] Co de Phone Number [facility] [place] [address] * (ABNORMAL) Comprehensive metabolic panel (non-fasting) (08/23/2023 8:33 AM EDT) [facility] Glucose 95 65 - 199 mg/dL [facility] Comment:Diabetes: >=200 mg/d L plus symptoms Blood Urea Nitrogen 20(H) 8 - 18 mg/dL [facility] Creatinine 0.95 0.70 - 1.20 mg/dL [facility] Sodium 141 135 - 145 mmol/L [facility] Potassium 4.5 3.5 - 5.0 mmol/L [facility] Comment: Please note: ??Patients with WBC >100,000 may have falsely elevated Potassium levels. ??For accurate Potassium quantification in these patients send serum separator tube (gold top) for subsequent determinations. ??Contact the Clinical Chemistry Laboratory if there are any questions. Chloride 106 98 - 107 mmol/L [facility] Carbon Dioxide 26 22 - 31 mmol/L [facility] Anion Gap 9 5 - 15 mmol/L [facility] Calcium 9.9 8.5 - 10.5 mg/dL [facility] Protein, Total 7.0 6.1 - 8.0 g/dL [facility] Albumin 4.5 3.2 - 5.2 g/dL [facility] Aspartate Aminotransferase 14 0 - 30 unit/L [facility] Alanine Aminotransferase 15 0 - 30 unit/L [facility] Alkaline Phosphatase 70 35 - 105 unit/L [facility] Bilirubin, Total 0.6 0.2 - 1.3 mg/dL [facility] Est Glomerular Filtration Rate 69 >=60 mL/min/1. 73 m?? [facility] CHEMISTRY ORDERABLES [facility] [place] [address] documented in this encounter Visit Diagnoses Diagnosis [...] documented in this encounter Care Teams Tire Trimmer Hand Relationship Specialty Start Date End Date Taylor Bryant APRN [address] [place] [address] PCP - General 03/31/10 documented as of this encounter
--- OUTSIDE RECORDS SUMMARY | 2024-04-02 14:02 | XMS_ITS | Encounter Summary ---
Author Organization [facility] Address [facility] [place] [address] Care Team Providers Care Wastewater Plant Operator Name Role Phone Taylor Bryant APRN Primary Care Provider [phone] [phone] Encounter Details Date Type Department Care Team ([facility] st Contact Info) Description 08/05/2023 Patient Outreach [place]ematology [place] [address] Roselyn Sánchez Social History Tobacco Use Types Packs/Day Years Used Date Smoking Tobacco: Former Smokeless Tobacco: Never Comments:quit at age 35 Alcohol Use Standard Drinks/Week Comments Yes 0 (1 standard drink = 0.6 oz pur e alcohol) social gatherings [facility] Utilities Answer Date Recorded [...] - 08/05/2023 10:30 AM EDT Community Health Compressor Operator spoke to Keeley today to review her responses to the SDOH+ screening. Keeley lives on a fixed income and she barely makes ends meet each month. She gets $140 in food stamps. She said that is enough for her. She also receives fuel assistance. She owns her trailer but pays for lot rent. I offered food pantry from the [facility],at this time she declined. I also [...] TH Visit (TeleHealth) [place] [address] Jean-Pierre Peña MD [facility] DR [place]ATOLOGY [place] [address] 04/13/2024 2:30 PM EST Infusion Hematology Oncology at [address] [phone] 04/30/2024 12:15 PM EST Laboratory Appointment Lab at [facility] Hematology Oncology [address] [place] [phone] 04/30/2024 1:15 PM EST Office Visit [place]ematology [place] [address] Jean-Pierre Peña MD [facility] DR [place]EMAT[place]Y [place] [address] Vicky Burnham APRN [facility] [place] [address] 04/30/2024 2:30 PM EST Appointment Hematology [place] [address] 05/22/2024 9:15 AM EST Laboratory Appointment Lab at [facility] Hematology Oncology [address] [place] [phone] 05/22/2024 10:[address] [place] [place] [address] Jean-Pierre Peña MD [facility] DR HEMATOLOGY [place] [address] 05/22/2024 11:30 AM EST Office Visit Dermatology at [place] [address] [place] [phone] Inderjit Vilchis MD [facility] DR GILBERTO [place] [address] 05/22/2024 2:00 PM EST Office Visit [place]ology [place] [address] Jean-Pierre Peña MD [facility] DR [place]EMAT[place] [address] 05/22/2024 3:30 PM EST Appointment [place]ematology [place] [address] 06/11/2024 4:15 PM EST TH Visit (TeleHealth) [place] [address] Jean-Pierre Peña MD [facility] DR HEMATOLOGY [place] [address] 06/12/2024 8:30 AM EST Infusion Hematology Oncology at [address] [phone] documented as of this encounter Visit Diagnoses Not on filedocumented in this encounter Care Teams Wastewater Plant Operator Relationship Specialty Start Date End Date Taylor Brynat, PRESS HAND SUPERVISOR [address] [place] [address] PCP - General 03/31/10 documented as of this encounter
--- OUTSIDE RECORDS SUMMARY | 2024-04-02 14:02 | XMS_ITS | Encounter Summary ---
Author Organization [facility] Address [facility] [place] [address] Care Team Providers Care Postdoctoral Scientist Name Role Phone Taylor Bryant APRN Primary Care Provider [phone] [phone] Encounter Details Date Type Department Care Team (Latest Contact Info) Description 09/12/2023 7:35 AM EDT - 09/12/2023 11:59 PM EDT Hospital Encounter Hematology and Oncology at [facility] [place] [phone] Medication management; Malignant melanoma of scalp; Malignant [...] TH Visit (TeleHealth) [place] [address] Jean-Pierre Peña MD [facility] DR [place] [address] 04/13/2024 2:30 PM EST Infusion Hematology Oncology at [address] [phone] 04/30/2024 12:15 PM EST Laboratory Appointment Lab at [facility] Hematology Oncology [address] [place] [phone] 04/30/2024 1:15 PM EST Office Visit [place]ematology [place] [address] Jean-Pierre Peña MD [facility] DR [place] [address] Vicky Burnham APRN [facility] [place] [address] 04/30/2024 2:30 PM EST Appointment Hematology [place] [address] 05/22/2024 9:15 AM EST Laboratory Appointment Lab at [facility] Hematology Oncology [address] [place] [phone] 05/22/2024 10:[address] [place] [place] [address] Jean-Pierre Peña MD [facility] DR [place] [address] 05/22/2024 11:30 AM EST Office Visit Dermatology at [facility] [address] [place] [phone] Inderjit Vilchis MD [facility] DR GILBERTO STER[place] [address] 05/22/2024 2:00 PM EST Office Visit Hematology and Oncology at [place] [phone] Jean-Pierre Peña MD [facility] DR HEMATOLOGY [place] [address] 05/22/2024 3:30 PM EST Appointment Hematology [place] [phone] 06/11/2024 4:15 PM EST TH Visit (TeleHealth) [place]emat[place] [phone] Jean-Pierre Peña MD [facility] DR HEMATOLOGY [place] [address] 06/12/2024 8:30 AM EST Infusion Hematology Oncology at [address] [phone] documented as of this encounter [...] * Differential, Automated (09/12/2023 7:45 AM EDT) Neutrophil % 67.3 % [facility] Neutrophil Absolute 4.42 1.70 - 6.10 x10(3)/[facility] Lymph % 17.2 % [facility] Lymphocytes Abs 1.1 0.9 - 3.2 x10(3)/[facility] Monocyte % 10.5 % [facility] Monocyte Abs 0.7 0.3 - 0.9 x10(3)/[facility] Eos % 4.1 % [facility] Eosinophils Abs 0.3 0.0 - 0.4 x10(3)/[facility] Basophil % 0.6 % [facility] Baso Absolute 0.0 0.0 - 0.1 x10(3)/[facility] Immature Gran % 0.30 % [facility] Comment: Immature granulocytes(IG's)percentage and absolute count will include metamyelocytes, myelocytes, and promyelocytes. Blood smears from CBCs yielding IG's will be scanned manually for concordance. If this scan disagrees with the automated IG or if promyelocytes are noted, a manual differential will be performed. Immature Gran Absolute 0.02 0.00 - 0.04 x10(3)/[facility] Blood 09/12/2023 7:45 AM EDT 09/12/2023 8:01 AM EDT Narrative Resulting Agency Comment Spec In Lab Jean-Pierre Peña MD HEMATOLOGY ORDERABLE S [facility] [place] [address] * (ABNORMAL) Hemogram (09/12/2023 7:45 AM EDT) White Blood Cell 6.6 4.0 - 9.5 x10(3)/mc L [facility] Red Blood Cell 4.10 4.00 - 5.21 x10(6)/mc L [facility] Hemoglobin 12.6 11.7 - 15.5 g/dL [facility] Hematocrit 37.9 35.7 - 45.8 % [facility] Mean Cell Volume 92.4 82.6 - 94.4 fL [facility] Mean Cell Hemoglobin 30.7 27.1 - 32.0 pg [facility] Mean Cell Hemoglobin Concentration 33.2 31.7 - 35.0 g/dL [facility] Platelet 305 145 - 357 x10(3)/mc L [facility] RDW Standard Deviation 46.4(H) 37.0 - 46.0 fL [facility] RDW coefficient of variation 13.5 11.5 - 14.1 % [facility] Mean Platelet Volume 10.7 7.6 - 12.9 fL [facility] NRBC% auto 0.0 % [facility] NRBC Absolute 0.000 0.000 - 0.000 x10(3)/mc L [facility] Blood 09/12/2023 7:45 AM EDT 09/12/2023 8:01 AM EDT Narrative Resulting Agency Comment Spec In Lab Jean-Pierre Peña MD HEMATOLOGY ORDERABLE S [facility] [place] [address] * (ABNORMAL) Comprehensive metabolic panel (non-fasting) (09/12/2023 7:45 AM EDT) Glucose 88 65 - 199 mg/dL [facility] Comment:Diabetes: >=200 mg/d L plus symptoms Blood Urea Nitrogen 22(H) 8 - 18 mg/dL [facility] Creatinine 0.87 0.70 - 1.20 mg/dL [facility] Sodium 143 135 - 145 mmol/L [facility] Potassium 4.6 3.5 - 5.0 mmol/L [facility] Comment: Please note: ??Patients with WBC >100,000 may have falsely elevated Potassium levels. ??For accurate Potassium quantification in these patients send serum separator tube (gold top) for subsequent determinations. ??Contact the Clinical Chemistry Laboratory if there are any questions. Chloride 108(H) 98 - 107 mmol/L [facility] Carbon Dioxide 26 22 - 31 mmol/L [facility] Anion Gap 9 5 - 15 mmol/L [facility] Calcium 9.6 8.5 - 10.5 mg/dL [facility] Protein, Total 6.9 6.1 - 8.0 g/dL [facility] Albumin 4.3 3.2 - 5.2 g/dL [facility] Aspartate Aminotransferase 30 0 - 30 unit/L [facility] Alanine Aminotransferase 40(H) 0 - 30 unit/L [facility] Alkaline Phosphatase 94 35 - 105 unit/L [facility] Bilirubin, Total 0.5 0.2 - 1.3 mg/dL [facility] Est Glomerular Filtration Rate 77 >=60 mL/min/1. 73 m?? [facility] Peña MD CHEMISTRY ORDERABLES Performing Organization Address [facility] Co de Phone Number [facility] [place] [address] * TSH (09/12/2023 7:45 AM EDT) Thyroid Stimulating Hormone 1.42 0.27 - 4.20 mcIU/mL [facility] Comment: Reference Interval (mcIU/mL): Females: ??First Trimester: 0.23-3.88 ??Second Trimester: 0.22-3.90 ??Third Trimester: 0.44-4.66 Blood 09/12/2023 7:45 AM EDT 09/12/2023 8:01 AM EDT Narrative Resulting Agency Comment Spec In Lab Jean-Pierre Peña MD CHEMISTRY ORDERABLES Performing Organization Address [facility] Co de Phone Number [facility] [place] [address] * T4, free (09/12/2023 7:45 AM EDT) Free T4 1.32 0.93 - 1.70 ng/dL [facility] Comment: Reference Interval (ng/dL): Females: ??First Trimester: 0.97-1.68 ??Second Trimester: 0.77-1.51 ??Third Trimester: 0.77-1.49 Blood 09/12/2023 7:45 AM EDT 09/12/2023 8:01 AM EDT Narrative Resulting Agency Comment Spec In Lab Jean-Pierre Peña MD CHEMISTRY ORDERABLES Performing Organization Address City/[facility]/ZIP Co de Phone Number [facility] [place] [address] * Lactate Dehydrogenase (09/12/2023 7:45 AM EDT) Lactate Dehydrogenase 187 110 - 220 unit/L [facility] Blood 09/12/2023 7:45 AM EDT 09/12/2023 8:01 AM EDT Narrative Resulting Agency Comment Spec In Lab Jean-Pierre Peña MD CHEMISTRY ORDERABLES Performing Organization Address [facility] Co de Phone Number [facility] [place] [address] documented in this encounter Visit Diagnoses Diagnosis Medication management Encounter for long-term (current) use of other medications 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
--- OUTSIDE RECORDS SUMMARY | 2024-04-02 14:02 | XMS_ITS | Encounter Summary ---
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, unspecified lymph node region Procedures [id number] pembrolizumab (Keytruda) Jean-Pierre Peña MD [facility] [place] [address] Jean-Pierre Peña MD [facility] [place] [address] Referral ID Status Reason Start Date Expiration Date V isits Requested Visits Authorized [id number] Authorized 07/25/2023 07/24/2024 99 99 Encounter Details Date Type Department Care Team (Latest Contact Info) Description 09/12/2023 7:35 AM EDT - 09/12/2023 11:59 PM EDT Hospital Encounter Hematology [place] [address] Medication management; Malignant melanoma of scalp; Malignant [...] TH Visit (TeleHealth) Hematology [place] [address] Jean-Pierre Peña MD [facility] [place] [address] 04/13/2024 2:30 PM EST Infusion Hematology Oncology at [address] [address] 04/30/2024 12:15 PM EST Laboratory Appointment Lab at [facility] Hematology Oncology [address] [place] [phone] 04/30/2024 1:15 PM EST Office Visit Hematology [place] [address] Jean-Pierre Peña MD [facility] [address] [place] [address] Vicky Burnham APRN [facility] [place] [address] 04/30/2024 2:30 PM EST Appointment Hematology [place] [address] 05/22/2024 9:15 AM EST Laboratory Appointment Lab at [facility] Hematology [address] [address] 05/22/2024 10:[address] [place] [phone] Jean-Pierre Peña MD [facility] [place] [address] 05/22/2024 11:30 AM EST Office Visit Dermatology at [place] [address] [place] [phone] Inderjit Vilchis MD [facility] DR GILBERT[place] [address] 05/22/2024 2:00 PM EST Office Visit Hematology [place] [phone] Jean-Pierre Peña MD [facility] [address] [place] [address] 05/22/2024 3:30 PM EST Appointment Hematology [place] [phone] 06/11/2024 4:15 PM EST TH Visit (TeleHealth) Hematology [place] [phone] Jean-Pierre Peña MD [facility] [address] [place] [address] 06/12/2024 8:30 AM EST Infusion Hematology Oncology at [address] [phone] documented as of this encounter Results * Lactate Dehydrogenase (09/12/2023 7:45 AM EDT) [facility] Lactate Dehydrogenase 187 110 - 220 unit/L [facility] Blood 09/12/2023 7:45 AM EDT 09/12/2023 8:01 AM EDT Narrative Resulting Agency Comment Spec In Lab Jean-Pierre Peña MD CHEMISTRY ORDERABLES [facility] [place] [address] * T4, free (09/12/2023 7:45 AM EDT) [facility] Free T4 1.32 0.93 - 1.70 ng/dL [facility] Comment: Reference Interval (ng/dL): Females: ??First Trimester: 0.97-1.68 ??Second Trimester: 0.77-1.51 ??Third Trimester: 0.77-1.49 Blood 09/12/2023 7:45 AM EDT 09/12/2023 8:01 AM EDT Narrative Resulting Agency Comment Spec In Lab Jean-Pierre Peña MD CHEMISTRY ORDERABLES Performing Organization Address [facility]/ZIP Co de Phone Number [facility] [place] [address] * TSH (09/12/2023 7:45 AM EDT) Thyroid Stimulating Hormone 1.42 0.27 - 4.20 mcIU/mL [facility] Comment: Reference Interval (mcIU/mL): Females: ??First Trimester: 0.23-3.88 ??Second Trimester: 0.22-3.90 ??Third Trimester: 0.44-4.66 Blood 09/12/2023 7:45 AM EDT 09/12/2023 8:01 AM EDT Narrative Resulting Agency Comment Spec In Lab Jean-Pierre Peña MD CHEMISTRY ORDERABLES Performing Organization Address City/[facility]/ZIP Co de Phone Number [facility] [place] [address] * (ABNORMAL) Comprehensive metabolic panel (non-fasting) (09/12/2023 7:45 AM EDT) Glucose 88 65 - 199 mg/dL [facility] Comment:Diabetes: >=200 mg/d L plus symptoms Blood Urea Nitrogen 22(H) 8 - 18 mg/dL [facility] Creatinine 0.87 0.70 - 1.20 mg/dL [facility] Sodium 143 135 - 145 mmol/L [facility] Potassium 4.6 3.5 - 5.0 mmol/L [facility] Comment: Please note: ??Patients with WBC >100,000 may have falsely elevated Potassium levels. ??For accurate Potassium quantification in these patients send serum separator tube (gold top) for subsequent determinations. ??Contact the Clinical Chemistry Laboratory if there are any questions. Chloride 108(H) 98 - 107 mmol/L [facility] Carbon Dioxide 26 22 - 31 mmol/L [facility] Anion Gap 9 5 - 15 mmol/L [facility] Calcium 9.6 8.5 - 10.5 mg/dL [facility] Protein, Total 6.9 6.1 - 8.0 g/dL [facility] Albumin 4.3 3.2 - 5.2 g/dL [facility] Aspartate Aminotransferase 30 0 - 30 unit/L [facility] Alanine Aminotransferase 40(H) 0 - 30 unit/L [facility] Alkaline Phosphatase 94 35 - 105 unit/L [facility] Bilirubin, Total 0.5 0.2 - 1.3 mg/dL [facility] Est Glomerular Filtration Rate 77 >=60 mL/min/1. 73 m?? [facility] MD CHEMISTRY ORDERABLES [facility] [place] [address] documented in this encounter Visit Diagnoses Diagnosis [...] mL/hr documented in this encounter Care Teams State Federal Relations Deputy Director Relationship Specialty Start Date End Date Taylor Bryant APRN [address] [place] [address] PCP - General 03/31/10 documented as of this encounter
--- OUTSIDE RECORDS SUMMARY | 2024-04-02 14:02 | XMS_ITS | Encounter Summary ---
Author Organization [facility] Address [facility] [place] [address] Care Team Providers Care Locomotive Crane Operator Name Role Phone Taylor Bryant APRN Primary Care Provider [phone] [phone] Reason for Visit * Reason Comments Prior Authorization Анна Encounter Details Date Type Department Care Team ([facility] st Contact Info) Description 08/23/2023 Specialty Pharmacy Pharmacy at [facility] [place] [phone] Cristiano Ruvalcaba, TAFE REGISTRAR Social History Tobacco Use Types Packs/Day Years [...] Keeley Gutierrez Patient : 1965 Patient Address: [address] [place] [address] (home) Medication Name: TAFINLAR 75 MG CAPSULE Medication ID: Patient Location: [facility] HEM ONC 3K Patient Location Comment: Medication Strength Frequency Requested: Take two capsules by mouth twice a day Qty/Day Supply: 120/30 New Start: New to Therapy Diagnosis & ICD-10 Code: Malignant melanoma Subscriber Insurance: Subscriber Insurance Comment: Insurance ID: Phone: Fax: Physician: SHARATH PEÑA Physician Comment : PA Status: PA Not Needed Insurance mandated Pharmacy: Fillable at [facility] Specialty Pharmacy: Yes Insurance requirements/notes: None Copay: 03.28 Copay assistance: None Copay assistance comment: Pharmacy staff will be reaching out to the patient to inform them of their medication's [facility]. If applicable, a pharmacist will speak with the patient to offer our specialty pharmacy services and to arrange delivery of their medication. Cristiano Ruvalcaba 08/23/23 11:36 AM documented in this encounter Plan of Treatment Upcoming Encounters Date Type Department Care Team (Late st Contact Info) Description 04/09/2024 4:15 PM EST TH Visit (TeleHealth) Hematology [place] [address] Sharath Peña MD [facility] [address] [place] [address] 04/13/2024 2:30 PM EST Infusion Hematology Oncology at [address] [address] 04/30/2024 12:15 PM EST Laboratory Appointment Lab at [facility] Hematology Oncology [address] [place] [phone] 04/30/2024 1:15 PM EST Office Visit Hematology [place] [address] Sharath Peña MD [facility] [place] [address] Vicky Burnham APRN [facility] [place] [address] 04/30/2024 2:30 PM EST Appointment Hematology [place] [address] 05/22/2024 9:15 AM EST Laboratory Appointment Lab at [facility] Hematology Oncology [address] [place] [phone] 05/22/2024 10:[address] [place] [address] Sharath Peña MD [facility] [address] [place] [address] 05/22/2024 11:30 AM EST Office Visit Dermatology at [facility] [address] [place] [address] Inderjit Vilchis MD [facility] DR GILBERT[place] [address] 05/22/2024 2:00 PM EST Office Visit Hematology [place] [address] Sharath Peña MD [facility] [place] [address] 05/22/2024 3:30 PM EST Appointment Hematology [place] [address] 06/11/2024 4:15 PM EST TH Visit (TeleHealth) Hematology [place] [address] Sharath Peña MD [facility] [address] [place] [address] 06/12/2024 8:30 AM EST Infusion Hematology Oncology at [address] [address] documented as of this encounter Visit Diagnoses Not on filedocumented in this encounter Care Teams Locomotive Crane Operator Relationship Specialty Start Date End Date Taylor Bryant APRN [address] [place] [address] PCP - General 03/31/10 documented as of this encounter
--- OUTSIDE RECORDS SUMMARY | 2024-04-02 14:02 | XMS_ITS | Encounter Summary ---
Author Organization [facility] Address [facility] [place] [address] Care Team Providers Care Feed Adviser Name Role Phone Taylor Bryant ZARA Primary Care Provider [phone] [phone] Reason for Visit * Reason Comments Follow-up Encounter Details Date Type Department Care Team ([facility] st Contact Info) Description 09/12/2023 8:45 AM EDT Office Visit Hematology [place] [address] Jean-Pierre Peña MD [facility] DR HEMATOLOGY [place] [address] Emily Yao APRN [facility] [place] [address] Malignant melanoma of scalp; Secondary malignancy of soft tissue; Medication management; Immunotherapy Social History Tobacco Use Types Packs/Day Years Used Date Smoking Tobacco: Former Smokeless Tobacco: Never Comments:quit at age 35 Alcohol Use Standard Drinks/Week Comments Yes 0 (1 standard drink = 0.6 oz pur e alcohol) social gatherings [facility] Utilities Answer Date Recorded In the past 12 months has [employer] electric, gas, oil, or water company threatened [...] original note were not included. [facility] NOTE REFERING PHYSICIAN: DIAGNOSIS: Right [...] TH Visit (TeleHealth) Hematology [place] [address] Jean-Pierre Peña MD [facility] [address] HEMATOLOGY [place] [address] 04/13/2024 2:30 PM EST Infusion Hematology Oncology at [address] [address] 04/30/2024 12:15 PM EST Laboratory Appointment Lab at [facility] Hematology Oncology [address] [place] [phone] 04/30/2024 1:15 PM EST Office Visit Hematology [place] [address] Jean-Pierre Peña MD [facility] [address] HEMATOLOGY [place] [address] Vicky Burnham APRN [facility] [place] [address] 04/30/2024 2:30 PM EST Appointment Hematology [place] [address] 05/22/2024 9:15 AM EST Laboratory Appointment Lab at [facility] Hematology Oncology [address] [place] [phone] 05/22/2024 10:[address] [place] [address] Jean-Pierre Peña MD [facility] [address] HEMATOLOGY [place] [address] 05/22/2024 11:30 AM EST Office Visit Dermatology at [facility] [address] [place] [address] Inderjit Vilchis MD [facility] DR GILBERTO [place] [address] 05/22/2024 2:00 PM EST Office Visit Hematology [place] [address] Jean-Pierre Peña MD [facility] [address] HEMATOLOGY [place] [address] 05/22/2024 3:30 PM EST Appointment Hematology [place] [address] 06/11/2024 4:15 PM EST TH Visit (TeleHealth) Hematology [place] [address] Jean-Pierre Peña MD [facility] [address] HEMATOLOGY [place] [address] 06/12/2024 8:30 AM EST Infusion Hematology Oncology at [address] [phone] documented as of this encounter Visit Diagnoses Diagnosis 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
--- OUTSIDE RECORDS SUMMARY | 2024-04-02 14:02 | XMS_ITS | Encounter Summary ---
Author Organization [facility] Address [facility] [place] [address] Care Team Providers Care Xray Tech Name Role Phone Taylor Bryant APRN Primary Care Provider [phone] [phone] Encounter Details Date Type Department Care Team (Latest Contact Info) Description 09/11/2023 Travel Social History Tobacco Use Types Packs/Day Years Used Date Smoking Tobacco: Former Smokeless Tobacco: Never Comments:quit at age 35 Alcohol Use Standard Drinks/Week Comments Yes 0 (1 standard drink = 0.6 oz pur e alcohol) social gatherings [facility] Utilities Answer Date Recorded In [...] TH Visit (TeleHealth) [place]ematology [place] [address] Jean-Pierre Peña MD [facility] DR HEMATOLOGY [place] [address] 04/13/2024 2:30 PM EST Infusion Hematology Oncology at [address] [address] 04/30/2024 12:15 PM EST Laboratory Appointment Lab at [facility] Hematology Oncology [address] [place] [phone] 04/30/2024 1:15 PM EST Office Visit Hematology [place] [phone] Jean-Pierre Peña MD [facility] DR HEMATOLOGY [place] [address] Vicky Burnham APRN [facility] [place] [address] 04/30/2024 2:30 PM EST Appointment Hematology [place] [address] 05/22/2024 9:15 AM EST Laboratory Appointment Lab at [facility] Hematology Oncology [address] [place] [phone] 05/22/2024 10:[address] [place] [place] [address] Jean-Pierre Peña MD [facility] DR HEMATOLOGY [place] [address] 05/22/2024 11:30 AM EST Office Visit Dermatology at [facility] [address] [place] [address] Inderjit Vilchis MD [facility] DR GILBERTO [place] [address] 05/22/2024 2:00 PM EST Office Visit [place]ematology [place] [address] Jean-Pierre Peña MD [facility] HEMATOLOGY [place] [address] 05/22/2024 3:30 PM EST Appointment Hematology [place] [address] 06/11/2024 4:15 PM EST TH Visit (TeleHealth) [place]ematology [place] [address] Jean-Pierre Peña MD [facility] HEMATOLOGY [place] [address] 06/12/2024 8:30 AM EST Infusion Hematology Oncology at [address] [phone] documented as of this encounter Visit Diagnoses Not on filedocumented in this encounter Care Teams Xray Tech Relationship Specialty Start Date End Date Taylor Bryant, CIVIL ENGINEERING DRAFTSPERSON [address] [place] [address] PCP - General 03/31/10 documented as of this encounter
--- OUTSIDE RECORDS SUMMARY | 2024-04-02 14:02 | XMS_ITS | Encounter Summary ---
Author Organization [facility] Address [facility] [place] [address] Care Team Providers Care Manager Multicultural Name Role Phone Taylor Bryant APRN Primary Care Provider [phone] Encounter Details Date Type Department Care Team [...] TH Visit (TeleHealth) [place]ematology [place] [address] Jean-Pierre Peña MD [facility] DR HEMATOLOGY [place] [address] 04/13/2024 2:30 PM EST Infusion Hematology Oncology at [address] [phone] 04/30/2024 12:15 PM EST Laboratory Appointment Lab at [facility] Hematology Oncology [address] [place] [phone] 04/30/2024 1:15 PM EST Office Visit Hematology [place] [phone] Jean-Pierre Peña MD [facility] DR HEMATOLOGY [place] [address] Vicky Burnham APRN [facility] [place] [address] 04/30/2024 2:30 PM EST Appointment Hematology [place] [address] 05/22/2024 9:15 AM EST Laboratory Appointment Lab at [facility] Hematology Oncology [address] [place] [phone] 05/22/2024 10:[address] [place] [place] [address] Jean-Pierre Peña MD [facility] DR HEMATOLOG[place] [address] 05/22/2024 11:30 AM EST Office Visit Dermatology at [facility] [address] [place] [address] Inderjit Vilchis MD [facility] DR GILBERTO [place] [address] 05/22/2024 2:00 PM EST Office Visit Hematology [place] [address] Jean-Pierre Peña MD [facility] HEMATOLOGY [place] [address] 05/22/2024 3:30 PM EST Appointment Hematology [place] [address] 06/11/2024 4:15 PM EST TH Visit (TeleHealth) [place]ematology [place] [address] Jean-Pierre Peña MD [facility] HEMATOLOGY [place] [address] 06/12/2024 8:30 AM EST Infusion Hematology Oncology at [address] [phone] documented as of this encounter Visit Diagnoses Not on filedocumented in this encounter Care Teams Manager Multicultural Relationship Specialty Start Date End Date Taylor Bryant, ELECTRON MICROPROBE OPERATOR [address] [place] [address] PCP - General 03/31/10 documented as of this encounter
--- OUTSIDE RECORDS SUMMARY | 2024-04-02 14:02 | XMS_ITS | Encounter Summary ---
Author Organization [facility] Address [facility] [address] Care Team Providers Care Internal Sales Name Role Phone Taylor Bryant APRN Primary Care Provider [phone] Encounter Details Date Type Department Care Team (Latest Contact Info) Description 08/09/2023 Travel Social History Tobacco Use Types Packs/Day Years Used Date Smoking Tobacco: Former Smokeless Tobacco: Never Comments:quit at age 35 Alcohol Use Standard Drinks/Week Comments Yes 0 (1 standard drink = 0.6 oz pur e alcohol) social gatherings [facility] Utilities Answer Date Recorded In [...] TH Visit (TeleHealth) [place]ematology [place] [address] Jean-Pierre Peña MD [facility] [place] [address] 04/13/2024 2:30 PM EST Infusion Hematology Oncology at [address] [address] 04/30/2024 12:15 PM EST Laboratory Appointment Lab at [facility] Hematology Oncology [address] [place] [phone] 04/30/2024 1:15 PM EST Office Visit Hematology [place] [phone] Jean-Pierre Peña MD [facility] [place] [address] Vicky Burnham APRN [facility] [place] [place] [address] 04/30/2024 2:30 PM EST Appointment Hematology [place] [address] 05/22/2024 9:15 AM EST Laboratory Appointment Lab at [facility] Hematology Oncology [address] [place] [phone] 05/22/2024 10:[address] [place] [place] [address] Jean-Pierre Peña MD [facility] [place] [address] 05/22/2024 11:30 AM EST Office Visit Dermatology at [facility] [address] [place] [address] Inderjit Vilchis MD [facility] DR [place] [address] 05/22/2024 2:00 PM EST Office Visit Hematology [place] [address] Jean-Pierre Peña MD [facility] [place] [address] 05/22/2024 3:30 PM EST Appointment Hematology [place] [address] 06/11/2024 4:15 PM EST TH Visit (TeleHealth) [place]ematology [place] [address] Jean-Pierre Peña MD [facility] [place] [address] 06/12/2024 8:30 AM EST Infusion Hematology Oncology at [address] [phone] documented as of this encounter Visit Diagnoses Not on filedocumented in this encounter Care Teams Internal Sales Relationship Specialty Start Date End Date Taylor Bryant, SLASHER HAND [address] [place] [address] PCP - General 03/31/10 documented as of this encounter
--- OUTSIDE RECORDS SUMMARY | 2024-04-02 14:02 | XMS_ITS | Encounter Summary ---
Author Organization [facility] Address [facility] [place] [address] Care Team Providers Care Sheltered Workshop Worker Name Role Phone Taylor Bryant APRN Primary Care Provider +1 [phone] Reason for Referral * Diagnostic Test (Routine) - Closed Specialty Diagnoses / Procedures Referred By rCista padron Referred To Contact Radiology Diagnoses Malignant melanoma of scalp Procedures NM Lymphoscintigraphy w Imaging Melanoma or Skin Cancer Castro Preciado MD [facility] [place] [address] [place] [address] Referral ID Status Reason Start Date Expiration Date V isits Requested Visits Authorized [id number] Closed Specialty Service Requested 08/18/2023 02/16/2025 1 1 Reason for Visit * Reason Comments Other She is here to talk to you about taking the cancer off her head. * Comprehensive Melanoma Consult (Routine) - Closed Specialty Diagnoses / Procedures Referred By Crista padron Referred To Contact Otolaryngology Diagnoses Malignant melanoma, unspecified site sent to KENZIE and Javed 08/02 Inderjit Vilchis MD [facility] [address] G[place] [address] [facility] [address] [place] [phone] Referral ID Status Reason Start Date Expiration Date V isits Requested Visits Authorized [id number] Closed Consult, Test & Treat 07/05/2023 07/04/2024 1 1 Encounter Details Date Type Department Care Team (Late st Contact Info) Description 08/18/2023 8:40 AM EDT Office Visit Otolaryngology at [facility] [place] [address] Castro Preciado MD [facility] [address] Malignant melanoma of scalp (Primary Dx); Psoriatic arthritis Social History Tobacco Use Types Packs/Day Years Used Date Smoking Tobacco: Former Smokeless Tobacco: Never Comments:quit at age 35 Alcohol Use Standard Drinks/Week Comments Yes 0 (1 standard drink = 0.6 oz pur e alcohol) social gatherings [facility] Utilities Answer Date Recorded In [...] Resident Division of Otolaryngology-[place] [address] 08/18/23 8:44 AM ENT CONSULTATION- ATTENDING STAFF [...] case with Dr Peña. Castro Preciado MD, [facility] Attending Staff documented in this encounter Plan of Treatment Upcoming Encounters Date Type Department Care Team (Late st Contact Info) Description 04/09/2024 4:15 PM EST TH Visit (TeleHealth) Hematology [place] [address] Jean-Pierre Peña MD [facility] [place] [address] 04/13/2024 2:30 PM EST Infusion Hematology Oncology at [address] [phone] 04/30/2024 12:15 PM EST Laboratory Appointment Lab [place] [facility] [place] [address] [place] [phone] 04/30/2024 1:15 PM EST Office Visit Hematology [place] [address] Jean-Pierre Peña MD [facility] [place] [address] Vicky Burnham APRN [facility] [place] [address] 04/30/2024 2:30 PM EST Appointment Hematology [place] [address] 05/22/2024 9:15 AM EST Laboratory Appointment Lab at [facility] [place]ology On[place] [address] [place] [phone] 05/22/2024 10:[address] [place] [address] Jean-Pierre Peña MD [facility] [place] [address] 05/22/2024 11:30 AM EST Office Visit Dermatology at [address] [phone] Inderjit Vilchis MD [facility] [address] [place] [address] 05/22/2024 2:00 PM EST Office Visit Hematology [place] [address] Jean-Pierre Peña MD [facility] [place] [address] 05/22/2024 3:30 PM EST Appointment Hematology [place] [address] 06/11/2024 4:15 PM EST TH Visit (TeleHealth) Hematology [place] [address] Jean-Pierre Peña MD [facility] [place] [address] 06/12/2024 8:30 AM EST Infusion Hematology Oncology at [address] [phone] documented as of this encounter Results * NM Lymphoscintigraphy w Imaging Melanoma or Skin Cancer (09/16/2023 9:54 AM EDT) [facility] WORKSTATION ID [id number] [facility] Anatomical Region Laterality Modality Nuclear Medicine Impressions 09/16/2023 12:37 PM EDT [place] lymph nodes in the right levels 2 and 5 regions as above. Thank you for letting us participate in the care of this patient. ??If you are a health care provider and have any questions regarding this report, please contact the number below. ??For patients who have questions please contact the health lawn care worker that requested your imaging first. ? Electronically signed by: Esa Sprgaue MD, [facility] ([phone]), at 09/16/2023 12:37 PM Narrative 09/16/2023 12:37 [...] right level 5 (axial image 28). IMPRESSION [place] lymph nodes in the right levels 2 and 5 regions as above. Thank you for letting us participate in the care of this patient. If youare a health care provider and have any questions regarding this report,please contact the number below. For patients who have questions please contactthe health lawn care worker that requested your imaging first. Electronically signed by: Esa Sprague MD, [facility]([phone]), at 09/16/2023 12:37 PM Castro Preciado MD [facility] ORDERABLES documented in this encounter Visit Diagnoses Diagnosis Malignant melanoma of scalp- Primary Malignant melanoma of skin of scalp and neck Psoriatic arthritis Psoriatic arthropathy Malignant melanoma of scalp Malignant melanoma of skin of scalp and neck documented in this encounter Care Teams Sheltered Workshop Worker Relationship Specialty Start Date End Date Taylor Bryant APRN [address] [place] [address] PCP - General 03/31/10 documented as of this encounter
--- OUTSIDE RECORDS SUMMARY | 2024-04-02 14:02 | XMS_ITS | Encounter Summary ---
Author Organization [facility] Address [facility] [place] [address] Care Team Providers Care Target Aircraft Technician Name Role Phone Taylor Bryant APRN Primary Care Provider [phone] Encounter Details Date Type Department Care Team (Latest Contact Info) Description 08/23/2023 8:27 AM EDT - 08/23/2023 11:59 PM EDT Hospital Encounter Hematology and Oncology at [facility] [place] [phone] Medication management; Malignant melanoma of scalp; Malignant [...] TH Visit (TeleHealth) Hematology [place] [phone] Jean-Pierre Peña MD [facility] [place] [address] 04/13/2024 2:30 PM EST Infusion Hematology Oncology at [address] [address] 04/30/2024 12:15 PM EST Laboratory Appointment Lab at [facility] Hematology Oncology [address] [place] [phone] 04/30/2024 1:15 PM EST Office Visit Hematology [place] [address] Jean-Pierre Peña MD [facility] [place] [address] Vicky Burnham APRN [facility] [place] [place] [address] 04/30/2024 2:30 PM EST Appointment Hematology [place] [address] 05/22/2024 9:15 AM EST Laboratory Appointment Lab at [facility] Hematology [address] [address] 05/22/2024 10:[address] [place] [address] Jean-Pierre Peña MD [facility] [place] [address] 05/22/2024 11:30 AM EST Office Visit Dermatology at [address] [place] [phone] Inderjit Vilchis MD [facility] DR [place] [address] 05/22/2024 2:00 PM EST Office Visit Hematology [place] [address] Jean-Pierre Peña MD [facility] [place] [address] 05/22/2024 3:30 PM EST Appointment Hematology [place] [address] 06/11/2024 4:15 PM EST TH Visit (TeleHealth) Hematology [place] [address] Jean-Pierre Peña MD [facility] [place] [address] 06/12/2024 8:30 AM EST Infusion Hematology Oncology at [address] [phone] documented as of this encounter Procedures Procedure [...] 8:33 AM EDT) Neutrophil % 54.5 % [facility] Neutrophil Absolute 3.21 1.70 - 6.10 x10(3)/[facility] LAB[facility] Lymph % 32.0 % [facility] Lymphocytes Abs 1.9 0.9 - 3.2 x10(3)/[facility] Monocyte % 9.2 % [facility] Monocyte Abs 0.5 0.3 - 0.9 x10(3)/[facility] Eos % 3.1 % [facility] Eosinophils Abs 0.2 0.0 - 0.4 x10(3)/[facility] Basophil % 0.9 % [facility] Baso Absolute 0.0 0.0 - 0.1 x10(3)/[facility] Immature Gran % 0.30 % [facility] Comment: Immature granulocytes(IG's)percentage and absolute count will include metamyelocytes, myelocytes, and promyelocytes. Blood smears from CBCs yielding IG's will be scanned manually for concordance. If this scan disagrees with the automated IG or if promyelocytes are noted, a manual differential will be performed. Immature Gran Absolute 0.02 0.00 - 0.04 x10(3)/[facility] Blood 08/23/2023 8:33 AM EDT 08/23/2023 8:59 AM EDT Narrative Resulting Agency Comment Spec In Lab Jean-Pierre Peña MD HEMATOLOGY ORDERABLE S [facility] [place] [address] * (ABNORMAL) Hemogram (08/23/2023 8:33 AM EDT) White Blood Cell 5.9 4.0 - 9.5 x10(3)/[facility] LABORATORY Red Blood Cell 4.32 4.00 - 5.21 x10(6)/ L [facility] Hemoglobin 13.1 11.7 - 15.5 g/dL [facility] Hematocrit 40.2 35.7 - 45.8 % [facility] Mean Cell Volume 93.1 82.6 - 94.4 fL [facility] Mean Cell Hemoglobin 30.3 27.1 - 32.0 pg [facility] Mean Cell Hemoglobin Concentration 32.6 31.7 - 35.0 g/dL [facility] Platelet 316 145 - 357 x10(3)/[facility] LABORATORY RDW Standard Deviation 47.7(H) 37.0 - 46.0 [facility] RDW coefficient of variation 13.9 11.5 - 14.1 % [facility] Mean Platelet Volume 11.4 7.6 - 12.9 [facility] NRBC% auto 0.0 % [facility] NRBC Absolute 0.000 0.000 - 0.000 x10(3)/[facility] Blood 08/23/2023 8:33 AM EDT 08/23/2023 8:59 AM EDT Narrative Resulting Agency Comment Spec In Lab Jean-Pierre Peña MD HEMATOLOGY ORDERABLE S [facility] [place] [address] * Lactate Dehydrogenase (08/23/2023 8:33 AM EDT) Lactate Dehydrogenase 165 110 - 220 unit/L [facility] Blood 08/23/2023 8:33 AM EDT 08/23/2023 8:59 AM EDT Narrative Resulting Agency Comment Spec In Lab Jean-Pierre Peña MD CHEMISTRY ORDERABLES Performing Organization Address City/[facility]/ZIP Co de Phone Number [facility] [place] [address] * T4, free (08/23/2023 8:33 AM EDT) Free T4 1.31 0.93 - 1.70 ng/dL [facility] Comment: Reference Interval (ng/dL): Females: ??First Trimester: 0.97-1.68 ??Second Trimester: 0.77-1.51 ??Third Trimester: 0.77-1.49 Blood 08/23/2023 8:33 AM EDT 08/23/2023 8:59 AM EDT Narrative Resulting Agency Comment Spec In Lab Jean-Pierre Peña MD CHEMISTRY ORDERABLES Performing Organization Address [facility] Co de Phone Number [facility] [place] [address] * TSH (08/23/2023 8:33 AM EDT) [facility] Thyroid Stimulating Hormone 0.80 0.27 - 4.20 mcIU/mL [facility] Comment: Reference Interval (mcIU/mL): Females: ??First Trimester: 0.23-3.88 ??Second Trimester: 0.22-3.90 ??Third Trimester: 0.44-4.66 Blood 08/23/2023 8:33 AM EDT 08/23/2023 8:59 AM EDT Narrative Resulting Agency Comment Spec In Lab Jean-Pierre Peña MD CHEMISTRY ORDERABLES Performing Organization Address [facility]/ZIP Co de Phone Number [facility] [place] [address] * (ABNORMAL) Comprehensive metabolic panel (non-fasting) (08/23/2023 8:33 AM EDT) Glucose 95 65 - 199 mg/dL [facility] [...] CHEMISTRY ORDERABLES [facility] [place] [address] documented in this encounter Visit Diagnoses Diagnosis Medication management Encounter for long-term (current) use of other medications Malignant melanoma of scalp Malignant melanoma of skin of scalp and neck 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
--- OUTSIDE RECORDS SUMMARY | 2024-04-02 14:02 | XMS_ITS | Encounter Summary ---
Author Organization [facility] Address [facility] [place] [address] Care Team Providers Care Partnership Marketing Manager Name Role Phone Taylor Bryant APRN Primary Care Provider [phone] Encounter Details Date Type Department Care Team [...] Visit (TeleHealth) Hematology [place] [address] Jean-Pierre Peña MD [facility] [address] [place] [address] 04/13/2024 2:30 PM EST Infusion Hematology Oncology at [address] [phone] 04/30/2024 12:15 PM EST Laboratory Appointment Lab at [facility] Hematology Oncology [address] [place] [phone] 04/30/2024 1:15 PM EST Office Visit Hematology [place] [phone] Jean-Pierre Peña MD [facility] [address] [place] [address] Vicky Burnham APRN [facility] [place] [address] 04/30/2024 2:30 PM EST Appointment Hematology [place] [address] 05/22/2024 9:15 AM EST Laboratory Appointment Lab at [facility] Hematology Oncology [address] [place] [phone] 05/22/2024 10:[address] [place] [address] Jean-Pierre Peña MD [facility] [address] [place] [address] 05/22/2024 11:30 AM EST Office Visit Dermatology at [facility] [address] [place] [address] Inderjit Vilchis MD [facility] DR GILBERT[place] [address] 05/22/2024 2:00 PM EST Office Visit Hematology [place] [address] Jean-Pierre Peña MD [facility] [place] [address] 05/22/2024 3:30 PM EST Appointment Hematology [place] [address] 06/11/2024 4:15 PM EST TH Visit (TeleHealth) Hematology [place] [address] Jean-Pierre Peña MD [facility] [place] [address] 06/12/2024 8:30 AM EST Infusion Hematology Oncology at [address] [phone] documented as of this encounter Visit Diagnoses Not on filedocumented in this encounter Care Teams Partnership Marketing Manager Relationship Specialty Start Date End Date Taylor Bryant, SUPERVISORY GEOGRAPHER [address] [place] [address] PCP - General 03/31/10 documented as of this encounter
--- OUTSIDE RECORDS SUMMARY | 2024-04-02 14:02 | XMS_ITS | Encounter Summary ---
Author Organization [facility] Address [facility] [place] [address] Care Team Providers Care Online Education Manager Name Role Phone Taylor Bryant APRN Primary Care Provider [phone] Encounter Details Date Type Department Care Team [...] TH Visit (TeleHealth) Hematology [place] [address] Jean-Pierre Peña MD [facility] DR [place] [address] 04/13/2024 2:30 PM EST Infusion Hematology Oncology at [address] [address] 04/30/2024 12:15 PM EST Laboratory Appointment Lab at [facility] Hematology Oncology [address] [place] [phone] 04/30/2024 1:15 PM EST Office Visit Hematology [place] [phone] Jean-Pierre Peña MD [facility] DR [place] [address] Vicky Burnham APRN [facility] [place] [address] 04/30/2024 2:30 PM EST Appointment Hematology [place] [address] 05/22/2024 9:15 AM EST Laboratory Appointment Lab at [facility] Hematology Oncology [address] [place] [phone] 05/22/2024 10:[address] [place] [place] [address] Jean-Pierre Peña MD [facility] DR [place] [address] 05/22/2024 11:30 AM EST Office Visit [facility]ology at [facility] [address] [place] [address] Inderjit Vilchis MD [facility] DR GILBERTO [place] [address] 05/22/2024 2:00 PM EST Office Visit Hematology [place] [address] Jean-Pierre Peña MD [facility] [place] [address] 05/22/2024 3:30 PM EST Appointment Hematology [place] [address] 06/11/2024 4:15 PM EST TH Visit (TeleHealth) Hematology [place] [address] Jean-Pierre Peña MD [facility] [place] [address] 06/12/2024 8:30 AM EST Infusion Hematology Oncology at [address] [phone] documented as of this encounter Visit Diagnoses Not on filedocumented in this encounter Care Teams Online Education Manager Relationship Specialty Start Date End Date Taylor Bryant, HOSIERY BAGGER [address] [place] [address] PCP - General 03/31/10 documented as of this encounter
--- OUTSIDE RECORDS SUMMARY | 2024-04-02 14:02 | XMS_ITS | Encounter Summary ---
Author Organization [facility] Address [facility] [place] [address] Care Team Providers Care Putty Tinter Maker Name Role Phone AnnetteTaylor ZARA Primary Care Provider [phone] Reason for Visit * Diagnostic Test (Routine) - Closed Specialty Diagnoses / Procedures Referred By Crista t Referred To Contact Radiology Diagnoses Malignant melanoma, unspecified site Procedures MRI Brain wwo Contrast (Generic) Neida Luong APRN [facility] DR HEMATOLOGY [place] [address] [facility] [place] [address] Referral ID Status Reason Start Date Expiration Date V isits Requested Visits Authorized [id number] Closed Specialty Service Requested 07/19/2023 01/18/2025 1 1 Encounter Details Date Type Department Care Team (Late st Contact Info) Description 08/01/2023 7:23 AM EDT - 08/01/2023 11:59 PM EDT Hospital [place] [address] Neida Luong APRN [facility] HEMATOLOGY [place] [address] Discharge Disposition: Home Social History Tobacco Use Types Packs/Day Years Used Date Smoking Tobacco: Former Smokeless Tobacco: Never Comments:quit at age 35 Alcohol Use Standard Drinks/Week Comments Yes 0 (1 standard drink = 0.6 oz pur e alcohol) social gatherings [facility] Utilities Answer Date Recorded In the past 12 months has De Correspondent, oil, or water [employer] threatened to shut off services in your [...] TH Visit (TeleHealth) [place]ematology [place] [address] Jean-Pierre Peña MD [facility] DR HEMATOLOGY [place] [address] 04/13/2024 2:30 PM EST Infusion Hematology Oncology at [address] [address] 04/30/2024 12:15 PM EST Laboratory Appointment Lab at [facility] Hematology [address] [phone] 04/30/2024 1:15 PM EST Office Visit Hematology [place] [address] Jean-Pierre Peña MD [facility] DR HEMATOLOGY [place] [address] Vicky Burnham APRN [facility] [place] [address] 04/30/2024 2:30 PM EST Appointment Hematology [place] [address] 05/22/2024 9:15 AM EST Laboratory Appointment Lab at [facility] Hematology [address] [address] 05/22/2024 10:[address] [place] [place] [address] Jean-Pierre Peña MD [facility] [address] HEMATOLOGY [place] [address] 05/22/2024 11:30 AM EST Office Visit Dermatology at [address] [place] [phone] Inderjit Vilchis MD [facility] DR GILBERTO [place] [address] 05/22/2024 2:00 PM EST Office Visit Hematology [place] [address] Jean-Pierre Peña MD [facility] [address] HEMATOLOGY [place] [address] 05/22/2024 3:30 PM EST Appointment Hematology [place] [address] 06/11/2024 4:15 PM EST TH Visit (TeleHealth) Hematology [place] [address] Jean-Pierre Peña MD [facility] [address] HEMATOLOGY [place] [address] 06/12/2024 8:30 AM EST Infusion Hematology Oncology at [address] [phone] documented as of this encounter [...] mLs documented in this encounter Care Teams Putty Tinter Maker Relationship Specialty Start Date End Date Taylor Bryant APRN [address] [place] [address] PCP - General 03/31/10 documented as of this encounter
--- OUTSIDE RECORDS SUMMARY | 2024-04-02 14:02 | XMS_ITS | Encounter Summary ---
Author Organization [facility] Address [facility] [place] [place] [address] Care Team Providers Care Wire Rope Sling Maker Name Role Phone Taylor Bryant APRN Primary Care Provider +1 [phone] Encounter Details Date Type Department Care Team [...] TH Visit (TeleHealth) [place] [address] Jean-Pierre Peña MD [facility] DR HEMATOLOGY [place] [address] 04/13/2024 2:30 PM EST Infusion Hematology Oncology at [address] [phone] 04/30/2024 12:15 PM EST Laboratory Appointment Lab at [facility] Hematology Oncology [address] [place] [phone] 04/30/2024 1:15 PM EST Office Visit [place] [phone] Jean-Pierre Peña MD [facility] DR HEMATOLOGY [place] [address] Vicky Burnham APRN [facility] DR [place] [address] 04/30/2024 2:30 PM EST Appointment [place]ematology [place] [address] 05/22/2024 9:15 AM EST Laboratory Appointment Lab at [facility] Hematology Oncology [address] [place] [phone] 05/22/2024 10:[address] [place] [place] [address] Jean-Pierre Peña MD [facility] DR HEMATOLOGY [place] [address] 05/22/2024 11:30 AM EST Office Visit Dermatology at [facility] [address] [place] [address] Inderjit Vilchis MD [facility] DR GILBERTO STERLING[place] [address] 05/22/2024 2:00 PM EST Office Visit [place] [address] Jean-Pierre Peña MD [facility] HEMATOLOGY [place] [address] 05/22/2024 3:30 PM EST Appointment [place]emat[place] [address] 06/11/2024 4:15 PM EST TH Visit (TeleHealth) [place] [address] Jean-Pierre Peña MD [facility] HEMATOLOGY [place] [address] 06/12/2024 8:30 AM EST Infusion Hematology Oncology at [address] [phone] documented as of this encounter Visit Diagnoses Not on filedocumented in this encounter Care Teams Wire Rope Sling Maker Relationship Specialty Start Date End Date Taylor Bryant, CLIENT SERVICE COORDINATOR [address] [place] [address] PCP - General 03/31/10 documented as of this encounter
--- OUTSIDE RECORDS SUMMARY | 2024-04-02 14:02 | XMS_ITS | Encounter Summary ---
Author Organization [facility] Address [facility] [place] [address] Care Team Providers Care Purchasing Analyst Name Role Phone Taylor Bryant APRN Primary Care Provider [phone] [phone] Encounter Details Date Type Department Care Team ([facility] st Contact Info) Description 09/06/2023 2:30 PM EDT Office Visit Dermatology at [facility] [address] [place] [address] Inderjit Argueta MD [facility] DR GILBERTO [place] [address] Malignant melanoma, unspecified site Social History Tobacco Use Types Packs/Day Years Used Date Smoking Tobacco: Former Smokeless Tobacco: Never Comments:quit at age 35 Alcohol Use Standard Drinks/Week Comments Yes 0 (1 standard drink = 0.6 oz pur e alcohol) social gatherings [facility] Utilities Answer Date Recorded In the past 12 months has e electric, gas, oil, or water [employer] threatened to shut off services in your [...] history no Social History 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 I performed the above scribed service and agree with the accuracy of the documentation in this encounter. Reviewed and signed by: INDERJIT ARGUETA MD Dermatology [facility] documented in this encounter Plan of Treatment Upcoming Encounters Date Type Department Care Team (Late st Contact Info) Description 04/09/2024 4:15 PM EST TH Visit (TeleHealth) [place] [address] Jean-Pierre Peña MD [facility] DR [place] [address] 04/13/2024 2:30 PM EST Infusion Hematology Oncology at [address] [phone] 04/30/2024 12:15 PM EST Laboratory Appointment Lab at [facility] Hematology Oncology [address] [place] [phone] 04/30/2024 1:15 PM EST Office Visit [place] [address] Jean-Pierre Peña MD [facility] DR [place] [address] Vicky Burnham APRN [facility] [place] [address] 04/30/2024 2:30 PM EST Appointment [place] [address] 05/22/2024 9:15 AM EST Laboratory Appointment Lab at [facility] Hematology [address] [address] 05/22/2024 10:[address] [place] [place] [address] Jean-Pierre Peña MD [facility] DR [place] [address] 05/22/2024 11:30 AM EST Office Visit Dermatology at [address] [phone] Inderjit Argueta MD [facility] DR GILBERT[place] [address] 05/22/2024 2:00 PM EST Office Visit [place] [address] Jean-Pierre Peña MD [facility] DR [place] [address] 05/22/2024 3:30 PM EST Appointment [place] [address] 06/11/2024 4:15 PM EST TH Visit (TeleHealth) [place] [address] Jean-Pierre Peña MD [facility] [place] [address] 06/12/2024 8:30 AM EST Infusion Hematology Oncology at [address] [address] documented as of this encounter Visit Diagnoses Diagnosis Malignant melanoma, unspecified site documented in this encounter Care Teams Purchasing Analyst Relationship Specialty Start Date End Date Taylor Bryant, WEIGHT ENGINEER [address] [place] [address] PCP - General 03/31/10 documented as of this encounter
--- OUTSIDE RECORDS SUMMARY | 2024-04-02 14:02 | XMS_ITS | Encounter Summary ---
Author Organization [facility] Address [facility] [place] [address] Care Team Providers Care Installment Agent Name Role Phone Taylor Bryant APRN Primary Care Provider +1 -[phone] Reason for Visit * Reason Comments Advice Only Encounter Details Date Type Department Care Team ([facility] st Contact Info) Description 08/23/2023 10:00 AM EDT Clinical Support Hematology and Oncology at [facility] [place] [phone] Sukh Hilario, [facility] Malignant melanoma of scalp Social History Tobacco [...] this encounter Progress Notes * Sukh Hilario, [facility] - 08/23/2023 10:00 AM EDT PATIENT ID: [...] TH Visit (TeleHealth) Hematology [place] [address] Jean-Pierre Peña MD [facility] [place] [address] 04/13/2024 2:30 PM EST Infusion Hematology Oncology at [address] [address] 04/30/2024 12:15 PM EST Laboratory Appointment Lab at [facility] Hematology Oncology [address] [place] [phone] 04/30/2024 1:15 PM EST Office Visit Hematology [place] [phone] Jean-Pierre Peña MD [facility] [place] [address] Vicky Burnham, ZARA [facility] [place] [address] 04/30/2024 2:30 PM EST Appointment Hematology and Oncology at [place] [phone] 05/22/2024 9:15 AM EST Laboratory Appointment Lab at [facility] Hematology Oncology [address] [place] [phone] 05/22/2024 10:[address] [place] [address] Jean-Pierre Peña MD [facility] DR [place] [address] 05/22/2024 11:30 AM EST Office Visit Dermatology at [address] [address] Inderjit Vilchis MD [facility] DR GILBERTO [place] [address] 05/22/2024 2:00 PM EST Office Visit Hematology [place] [address] Jean-Pierre Peña MD [facility] [place] [address] 05/22/2024 3:30 PM EST Appointment Hematology [place] [address] 06/11/2024 4:15 PM EST TH Visit (TeleHealth) Hematology [place] [address] Jean-Pierre Peña MD [facility] [place] [address] 06/12/2024 8:30 AM EST Infusion Hematology Oncology at [address] [address] documented as of this encounter Visit Diagnoses Diagnosis Malignant melanoma of scalp Malignant melanoma of skin of scalp and neck documented in this encounter Care Teams Installment Agent Relationship Specialty Start Date End Date Taylor Bryant APRN [address] [place] [address] PCP - General 03/31/10 documented as of this encounter
--- OUTSIDE RECORDS SUMMARY | 2024-04-02 14:02 | XMS_ITS | Encounter Summary ---
Author Organization [facility] Address [facility] [place] [address] Care Team Providers Care Customer Operations Intern Name Role Phone Taylor Bryant APRN Primary Care Provider [phone] [phone] Encounter Details Date Type Department Care Team [...] TH Visit (TeleHealth) Hematology [place] [address] Jean-Pierre Peña MD [facility] DR HEMATOLOGY [place] [address] 04/13/2024 2:30 PM EST Infusion Hematology Oncology at [address] [address] 04/30/2024 12:15 PM EST Laboratory Appointment Lab at [facility] Hematology Oncology [address] [place] [phone] 04/30/2024 1:15 PM EST Office Visit Hematology [place] [phone] Jean-Pierre Peña MD [facility] DR HEMATOLOGY [place] [address] [facility] [place] [address] 04/30/2024 2:30 PM EST Appointment Hematology [place] [address] 05/22/2024 9:15 AM EST Laboratory Appointment Lab at [facility] Hematology Oncology [address] [place] [phone] 05/22/2024 10:[address] [place] [address] Jean-Pierre Peña MD [facility] DR HEMATOLOGY [place] [address] 05/22/2024 11:30 AM EST Office Visit Dermatology at [facility] [address] [place] [address] [facility] DR GILBERTO [place] [address] 05/22/2024 2:00 PM EST Office Visit Hematology [place] [address] Jean-Pierre Peña MD [facility] HEMATOLOGY [place] [address] 05/22/2024 3:30 PM EST Appointment Hematology [place] [address] 06/11/2024 4:15 PM EST TH Visit (TeleHealth) Hematology [place] [address] Jean-Pierre Peña MD [facility] [place]ATOLOGY [place] [address] 06/12/2024 8:30 AM EST Infusion Hematology Oncology at [address] [phone] documented as of this encounter Visit Diagnoses Not on filedocumented in this encounter Care Teams Customer Operations Intern Relationship Specialty Start Date End Date Taylor Bryant, SHEET METAL ASSEMBLER AND RIVETER [address] [place] [address] PCP - General 03/31/10 documented as of this encounter
--- OUTSIDE RECORDS SUMMARY | 2024-04-02 14:02 | XMS_ITS | Encounter Summary ---
Author Organization [facility] Address [facility] [place] [address] Care Team Providers Care Inventory Control Coordinator Name Role Phone Taylor Bryant APRN Primary Care Provider +1 [phone] Encounter Details Date Type Department Care Team ([facility] st Contact Info) Description 08/22/2023 Telephone Otolaryngology at [facility] [place] [phone] Jeannie Dale Social History Tobacco Use Types Packs/Day Years Used Date Smoking Tobacco: Former Smokeless Tobacco: Never Comments:quit at age 35 Alcohol Use Standard Drinks/Week Comments Yes 0 (1 standard drink = 0.6 oz pur e alcohol) social gatherings [facility] Utilities Answer Date Recorded In the [...] Visit (TeleHealth) Hematology [place] [address] Jean-Pierre Peña MD [facility] DR [place] [address] 04/13/2024 2:30 PM EST Infusion Hematology Oncology at [address] [phone] 04/30/2024 12:15 PM EST Laboratory Appointment Lab at [facility] Hematology Oncology [address] [place] [phone] 04/30/2024 1:15 PM EST Office Visit Hematology [place] [address] Jean-Pierre Peña MD [facility] DR [place] [address] Vicky Burnham APRN [facility] [place] [address] 04/30/2024 2:30 PM EST Appointment Hematology and Oncology at [place] [phone] 05/22/2024 9:15 AM EST Laboratory Appointment Lab at [facility] Hematology Oncology [address] [place] [phone] 05/22/2024 10:[address] Scan at [place] [phone] Jean-Pierre Peña MD [facility] DR HEMATOLOGY [place] [address] 05/22/2024 11:30 AM EST Office Visit Dermatology at [address] [phone] Inderjit Vilchis MD [facility] DR GILBERTO [place] [address] 05/22/2024 2:00 PM EST Office Visit Hematology and Oncology at [place] [phone] Jean-Pierre Peña MD [facility] [place] [address] 05/22/2024 3:30 PM EST Appointment Hematology [place] [phone] 06/11/2024 4:15 PM EST TH Visit (TeleHealth) Hematology [place] [phone] Jean-Pierre Peña MD [facility] [place] [address] 06/12/2024 8:30 AM EST Infusion Hematology Oncology at [address] [phone] documented as of this encounter Visit Diagnoses Not on filedocumented in this encounter Care Teams Inventory Control Coordinator Relationship Specialty Start Date End Date Taylor Bryant APRN [address] [place] [address] PCP - General 03/31/10 documented as of this encounter
--- OUTSIDE RECORDS SUMMARY | 2024-04-02 14:02 | XMS_ITS | Encounter Summary ---
Author Organization [facility] Address [facility] [place] [address] Care Team Providers Care Log Brander Name Role Phone AnnetteTaylor ZARA Primary Care Provider +1 -[phone] Reason for Referral * Diagnostic Test (Routine) - Closed Specialty Diagnoses / Procedures Referred By Crista t Referred To Contact Radiology Diagnoses Malignant melanoma, unspecified site Procedures MRI Brain wwo Contrast (Generic) Neida Luong APRN [facility] DR HEMATOLOGY [place] [address] [place] [address] Referral ID Status Reason Start Date Expiration Date V isits Requested Visits Authorized [id number] Closed Specialty Service Requested 07/19/2023 01/18/2025 1 1 Reason for Visit * Diagnostic Test (Routine) - Closed Specialty Diagnoses / Procedures Referred By Contjono t Referred To Contact Radiology Diagnoses Malignant melanoma, unspecified site Procedures MRI Brain wwo Contrast (Generic) Neida Luong APRN [facility] DR HEMATOLOGY [place] [address] [place] [address] Referral ID Status Reason Start Date Expiration Date V isits Requested Visits Authorized [id number] Closed Specialty Service Requested 07/19/2023 01/18/2025 1 1 Encounter Details Date Type Department Care Team ([facility] st Contact Info) Description 08/01/2023 7:23 AM EDT - 08/01/2023 11:59 PM EDT Hospital Encounter MRI at [facility] [place] [address] Neida Luong APRN [facility] [place] [address] Malignant melanoma, unspecified site Discharge Disposition: Home Social History Tobacco Use Types Packs/Day Years Used Date Smoking Tobacco: Former Smokeless Tobacco: Never Comments:quit at age 35 Alcohol Use Standard Drinks/Week Comments Yes 0 (1 standard drink = 0.6 oz pur e alcohol) social gatherings [facility] Utilities Answer Date Recorded In the [...] Keeley Gutierrez AGE: 58 y.o. : [address] [place] [address] Female [phone] (home) Telephone Information: Taylor Bryant APRN None Allergies Allergen Reactions Codeine Phosphate CIS - vomit Date/Time of call: July 27, 2023/2:47 PM/ SCHEDULED SCAN: MRI BRAIN WWO CONTRAST (GENERIC) [[id number]] HEIGHT: WEIGHT: Have you had a PREVIOUS MRI SCAN? Yes Are you claustrophobic or anxious in the scanner? Yes CAN YOU LAY FLAT? yes Do you have trouble breathing when lying flat? No DO YOU HAVE ANY INVOLUNTARY MOVEMENTS? No DO YOU TAKE PAIN MEDICATION ON A DAILY BASIS? No PLAN: Ativan ordered You must have a cdl company driver present when you check in. This patient has been informed that they require a cdl company driver to drive them home after this procedure. In the absence of a cdl company driver, IR will not be able tosedate for your scan. Pt verbalized understanding of these instructions during the pre-procedure education via phone. Yes [place] of cdl company driver: Phone number: PRIOR SCAN DATE/S SEDATION TYPE SUCCESSFUL None prior 08/01/23 MRI brain wwo Ativan 1mg Po x 1 Revised 11/02/2022 documented in this encounter Plan of Treatment Upcoming Encounters Date Type Department Care Team (Late st Contact Info) Description 04/09/2024 4:15 PM EST TH Visit (TeleHealth) Hematology [place] [address] Jean-Pierre Peña MD [facility] DR HEMATOLOGY [place] [address] 04/13/2024 2:30 PM EST Infusion Hematology Oncology at [address] [phone] 04/30/2024 12:15 PM EST Laboratory Appointment Lab at [facility] [place]ology Oncology [address] [place] [phone] 04/30/2024 1:15 PM EST Office Visit Hematology [place] [address] Jean-Pierre Peña MD [facility] DR HEMATOLOGY [place] [address] Vicky Burnham APRN [facility] [place] [address] 04/30/2024 2:30 PM EST Appointment Hematology [place] [address] 05/22/2024 9:15 AM EST Laboratory Appointment Lab at [facility] Hematology Oncology [address] [place] [phone] 05/22/2024 10:[address] [place] [address] Jean-Pierre Peña MD [facility] DR HEMATOLOGY [place] [address] 05/22/2024 11:30 AM EST Office Visit Dermatology at [address] [phone] Inderjit Vilchis MD [facility] DR GILBERTO [place] [address] 05/22/2024 2:00 PM EST Office Visit Hematology [place] [phone] Jean-Pierre Peña MD [facility] DR HEMATOLOGY [place] [address] 05/22/2024 3:30 PM EST Appointment Hematology [place] [phone] 06/11/2024 4:15 PM EST TH Visit (TeleHealth) Hematology [place] [phone] Jean-Pierre Peña MD [facility] DR HEMATOLOGY [place] [address] 06/12/2024 8:30 AM EST Infusion Hematology Oncology at [address] [phone] documented as of this encounter [...] who have questions please contact the health long term acute care registered nurse that requested your imaging first. ? Electronically signed by: Matty Mukherjee MD, [facility] ([phone]), at 08/01/2023 3:10 PM Narrative 08/01/2023 3:10 [...] patients who have questions please contactthe health long term acute care registered nurse that requested your imaging first. Electronically signed by: Matty Mukherjee MD, [facility]([phone]), at 08/01/2023 3:10 PM Neida Luong RUG DESIGNER IMG MRI ORDERABLES documented in this encounter [...] mg documented in this encounter Care Teams Log Brander Relationship Specialty Start Date End Date Taylor Bryant APRN [address] [place] [address] PCP - General 03/31/10 documented as of this encounter
--- OUTSIDE RECORDS SUMMARY | 2024-04-02 14:02 | XMS_ITS | Encounter Summary ---
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, unspecified lymph node region Procedures IR Biopsy Lymph Node (Head/Neck) IR All Biopsy Procedures Jean-Pierre Peña MD [facility] [place] [address] [facility] [place] [address] Referral ID Status Reason Start Date Expiration Date V isits Requested Visits Authorized [id number] Closed Specialty Service Requested 07/25/2023 01/24/2025 1 1 Reason for Visit * Diagnostic Test (Routine) - Closed Specialty Diagnoses / Procedures [facility] Referred To Contact Radiology Diagnoses 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, unspecified lymph node region Procedures IR Biopsy Lymph Node (Head/Neck) IR All Biopsy Procedures Jean-Pierre Peña MD [facility] [place] [address] [facility] [place] [address] Referral ID Status Reason Start Date Expiration Date V isits Requested Visits Authorized [id number] Closed Specialty Service Requested 07/25/2023 01/24/2025 1 1 Encounter Details Date Type Department Care Team (Latest Contact Info) Description 08/09/2023 7:42 AM EDT - 08/09/2023 11:59 PM EDT Hospital Encounter Radiology at [facility] [address] Jean-Pierre Peña MD [facility] [place] [address] Malignant melanoma of scalp; Malignant neoplasm metastatic [...] In the past 12 months has e [employer], gas, oil, or water [employer] threatened to shut off services in [...] TH Visit (TeleHealth) [place] [address] Jean-Pierre Peña MD [facility] [place] [address] 04/13/2024 2:30 PM EST Infusion Hematology Oncology at [address] [address] 04/30/2024 12:15 PM EST Laboratory Appointment Lab at [facility] Hematology Oncology [address] [place] [phone] 04/30/2024 1:15 PM EST Office Visit Hematology [place] [address] Jean-Pierre Peña MD [facility] [place] [address] Vicky Burnham APRN [facility] [place] [address] 04/30/2024 2:30 PM EST Appointment [place]ematology [place] [address] 05/22/2024 9:15 AM EST Laboratory Appointment Lab at [facility] Hematology Oncology [address] [place] [phone] 05/22/2024 10:[address] [place] [place] [address] Jean-Pierre Peña MD [facility] [place] [address] 05/22/2024 11:30 AM EST Office Visit Dermatology at [address] [phone] Inderjit Vilchis MD [facility] [place] [address] 05/22/2024 2:00 PM EST Office Visit [place]ematology [place] [address] Jean-Pierre Peña MD [facility] [place] [address] 05/22/2024 3:30 PM EST Appointment [place]ematology [place] [address] 06/11/2024 4:15 PM EST TH Visit (TeleHealth) [place] [address] Jean-Pierre Peña MD [facility] [place] [address] 06/12/2024 8:30 AM EST Infusion Hematology Oncology at [address] [phone] documented as of this encounter Procedures Procedure Name Priority Date/Time Associated Diagnosis Comments IR BIOPSY LYMPH NODE (HEAD/NECK) Routine 08/09/2023 9:06 AM EDT 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 Senior Web Engineer: Norm Evans M.D. Attending: Matty Mukherjee M.D. [...] have questions please contact the health rn homecare that requested your imaging first. ? Electronically signed by: Matty Mukherjee MD, [facility] ([phone]), at 08/09/2023 3:42 PM Narrative 08/09/2023 3:42 [...] of a RIGHT level Ib cervicalchain node. Senior Web Engineer: Norm Evans M.D. Attending: Matty Mukherjee M.D. Preliminary report signed by: Norm vEans at 08/09/2023 3:27 PM I participated in [...] who have questions please contactthe health rn homecare that requested your imaging first. Jean-Pierre Peña MD IMG IR ORDERABLES * Non-Manager Radio Final Report (08/09/2023 8:55 AM EDT) Diagnosis Discussion [id number] ? Location: [facility] The signing pathologist has (i) examined the relevant preparation(s) for the specimen(s) and (ii) rendered or confirmed the diagnosis(es). . ? Non-Manager Radio Final DIAGNOSIS Negative for Malignancy Electronically signed by: ?Gianni ROBLES, Vicente Verified: ??08/11/2023 9:29 ?? Pathologist Performed at: ??-[facility] Dept. of Pathology, [place] [address] Laborer [employer]: Johnnie Stephens MD, FCAP, ??CLIA Certificate: [id number] DISCUSSION Lymph node, right cervical chain (US-guided FNA): Lymphocytes are present, compatible with lymph node sampling. No overtly cytologically malignant cells seen. The material might not be fully hobbies and crafts sales representative of the target lesion. Clinical [...] Cell Block 1. 08/11/2023 9:29 AM EDT [facility] LYMPH NODE SPECIMEN / Unknown 08/09/2023 8:55 AM EDT 08/09/2023 8:55 AM EDT Matty Mukherjee MD PATHOLOGY/CYTOLOGY ORDERABLES [facility] [place] [address] * Cytopathology Non-Gynecological (08/09/2023 8:43 AM EDT) AP Specimen 08/09/2023 8:43 AM EDT 08/09/2023 8:43 AM EDT Narrative [facility] - 08/09/2023 8:43 AM EDT Specimen requisition ordered. 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
[2024-04-02 14:03] LABS: Abs Immature Grans 0.01 10^3/uL (0.0-0.06); Absolute Basophil Count 0.05 10^3/uL (0.0-0.2); Absolute Eosinophil Count 0.19 10^3/uL (0.0-0.7); Absolute Lymphocyte Count 1.59 10^3/uL (1.2-3.4); Absolute Monocyte Count 0.55 10^3/uL (0.1-0.8); Absolute Neutrophil Count 4.52 10^3/uL (1.2-6.7); Basophils % 0.7 %; Eosinophils % 2.7 %; HCT 37.9 % (36.0-46.0); HGB 12.3 g/dL (11.2-15.7); Immature Grans % 0.1 %; MCH 31.1 pg (27.0-33.0); MCHC 32.5 % (32.0-36.0); MCV 96 fL (80-95); MPV 10.3 fL (8.0-11.0); Neutrophils % 65.5 %; Platelet Count 297 10^3/uL (130-400); RBC 3.95 10^6/uL (3.93-5.22); RDW 13.4 % (11.7-14.6); RDW-SD 47.4 fL; WBC 6.91 10^3/uL (4.4-10.8)
--- OUTSIDE RECORDS SUMMARY | 2024-04-02 14:03 | XMS_ITS | Encounter Summary ---
Author Organization [facility] [place] [address] Care Team Providers Care Multimedia Specialist Name Role Phone Taylor Bryant ZARA Primary Care Provider [phone] Reason for Referral * Diagnostic Test (Routine) - Closed Specialty Diagnoses / Procedures Referred By Contac t Referred To Contact Radiology Diagnoses Malignant melanoma, unspecified site Procedures NM PET CT Standard Plus Extremities and Head Inderjit Vilchis MD [facility] [address] [facility] [place] [address] [place] [address] Referral ID Status Reason Start Date Expiration Date V isits Requested Visits Authorized [id number] Closed Specialty Service Requested 07/05/2023 01/02/2025 1 1 Reason for Visit * Diagnostic Test (Routine) - Closed Specialty Diagnoses / Procedures Referred By Contac t Referred To Contact Radiology Diagnoses Malignant melanoma, unspecified site Procedures NM PET CT Standard Plus Extremities and Head Inderjit Vilchis MD [facility] DR GILBERTO [place] [address] [place] [address] Referral ID Status Reason Start Date Expiration Date V isits Requested Visits Authorized [id number] Closed Specialty Service Requested 07/05/2023 01/02/2025 1 1 Encounter Details Date Type Department Care Team (Latest Contact Info) Description 07/11/2023 7:45 AM EST Hospital Encounter [place] [phone] Inderjit Vilchis MD [facility] DR [facility]ERT[facility] [place] [address] Malignant melanoma, unspecified site Discharge Disposition: Home [...] (TeleHealth) Hematology [place] [address] Jean-Pierre Peña MD [facility] HEMATOLOGY [place] [address] 04/13/2024 2:30 PM EST Infusion Hematology Oncology at [address] [address] 04/30/2024 12:15 PM EST Laboratory Appointment Lab at [facility] Hematology Oncology [address] [place] [phone] 04/30/2024 1:15 PM EST Office Visit Hematology and Oncology at [place] [phone] Jean-Pierre Peña MD [facility] DR HEMATOLOGY [place] [address] Vicky Burnham APRN [facility] [place] [address] 04/30/2024 2:30 PM EST Appointment Hematology and Oncology at [place] [phone] 05/22/2024 9:15 AM EST Laboratory Appointment Lab at [facility] Hematology [address] [address] 05/22/2024 10:[address] [place] [place] [address] Jean-Pierre Peña MD [facility] DR HEMATOLOGY [place] [address] 05/22/2024 11:30 AM EST Office Visit Dermatology at [address] [address] Inderjit Vilchis MD [facility] DR GIL[facility]ERT[facility] [place] [address] 05/22/2024 2:00 PM EST Office Visit Hematology [place] [address] Jean-Pierre Peña MD [facility] HEMATOLOGY [place] [address] 05/22/2024 3:30 PM EST Appointment Hematology [place] [address] 06/11/2024 4:15 PM EST TH Visit (TeleHealth) Hematology and Oncology at [facility] [address] Jean-Pierre Peña MD [facility] DR HEMATOLOGY [place] [address] 06/12/2024 8:30 AM EST Infusion Hematology Oncology at [address] [address] documented as of this encounter [...] questions please contact the health career development consultant that requested your imaging first. ? Electronically signed by: Renard Hoffman MD, [facility] ([phone]), at 07/14/2023 9:53 AM Narrative 07/14/2023 9:53 AM EST EXAMINATION: NM PET CT STANDARD PLUS EXTREMITIES AND HEAD CLINICAL HISTORY: Melanoma, staging C43.9, Malignant melanoma of skin, unspecified TECHNIQUE: Procedure: Following IV injection of 12-ufnzse-6-deoxyglucose (FDG) a standard uptake of approximately 60 [...] unspecified TECHNIQUE: Procedure: Following IV injection of 24-bzwjgi-9-deoxyglucose(FDG) a standard uptake of approximately 60 minutes, [...] have questions please contactthe health career development consultant that requested your imaging first. Inderjit Vilchis MD IMG PET ORDERAB LES * POCT Glucose (07/11/2023 7:51 AM EST) Glucose, POC 84 65 - 199 mg/dL [facility] Comment: Supplemental ranges: <140 mg/dL before meals <180 mg/dL all other times of the day Blood 07/11/2023 7:51 AM EST 07/11/2023 7:51 AM EST Inderjit Vilchis MD POINT OF CARE T EST ORDERABLES [facility] [place] [address] documented in this encounter Visit Diagnoses Diagnosis [...] Arm documented in this encounter Care Teams Multimedia Specialist Relationship Specialty Start Date End Date Taylor Bryant, ZARA [address] [place] [address] PCP - General 03/31/10 documented as of this encounter
--- OUTSIDE RECORDS SUMMARY | 2024-04-02 14:03 | XMS_ITS | Encounter Summary ---
Author Organization [facility] [place] [address] Care Team Providers Care Financial Counselor Name Role Phone Taylor Bryant ZARA Primary Care Provider [phone] Encounter Details Date Type Department Care Team ([facility] Contact Info) Description 07/15/2023 Orders Only [place]ematology [place] [phone] Neida Luong POWERTRAIN ENGINEER [facility] DR HEMATOLOGY [place] [address] Malignant melanoma of scalp; Medication management Social [...] TH Visit (TeleHealth) [place] [address] Jean-Pierre Peña MD [facility] DR HEMATOLOGY [place] [address] 04/13/2024 2:30 PM EST Infusion Hematology Oncology at [address] [phone] 04/30/2024 12:15 PM EST Laboratory Appointment Lab at [facility] Hematology Oncology [address] [place] [phone] 04/30/2024 1:15 PM EST Office Visit Hematology [place] [address] Jean-Pierre Peña MD [facility] DR HEMATOLOGY [place] [address] Vicky Burnham APRN [facility] [place] [address] 04/30/2024 2:30 PM EST Appointment Hematology [place] [address] 05/22/2024 9:15 AM EST Laboratory Appointment Lab at [facility] Hematology Oncology [address] [place] [phone] 05/22/2024 10:[address] [place] [place] [address] Jean-Pierre Peña MD [facility] DR HEMATOLOGY [place] [address] 05/22/2024 11:30 AM EST Office Visit Dermatology at [address] [address] Inderjit Vilchis MD [facility] DR GIL[facility]ERTO [place] [address] 05/22/2024 2:00 PM EST Office Visit Hematology [place] [phone] Jean-Pierre Peña MD [facility] DR HEMATOLOGY [place] [address] 05/22/2024 3:30 PM EST Appointment Hematology [place] [address] 06/11/2024 4:15 PM EST TH Visit (TeleHealth) [place]ology [place] [phone] Jean-Pierre Peña MD [facility] DR HEMATOLOGY [place] [address] 06/12/2024 8:30 AM EST Infusion Hematology Oncology at [address] [phone] Scheduled Orders Name Type Priority Associated Diagnoses Orde r Schedule Specimen to Pathology Additional Testing Pathology/Cytol ogy STAT Malignant melanoma of scalp Ordered: 07/15/2023 documented as of this encounter Results * TSH (07/25/2023 11:32 AM EDT) Thyroid Stimulating Hormone 0.87 0.27 - 4.20 mcIU/mL [facility] Comment: Reference Interval (mcIU/mL): Females: ??First Trimester: 0.23-3.88 ??Second Trimester: 0.22-3.90 ??Third Trimester: 0.44-4.66 Blood 07/25/2023 11:3 2 AM EDT 07/25/2023 11:44 AM EDT Narrative Resulting Agency Comment Spec In Lab Carlos Dominguez MD CHEMISTRY ORDERABLES [facility] [place] [address] * T4, free (07/25/2023 11:32 AM EDT) Free T4 1.30 0.93 - 1.70 ng/dL [facility] Comment: Reference Interval (ng/dL): Females: ??First Trimester: 0.97-1.68 ??Second Trimester: 0.77-1.51 ??Third Trimester: 0.77-1.49 Blood 07/25/2023 11:3 2 AM EDT 07/25/2023 11:44 AM EDT Narrative Resulting Agency Comment Spec In Lab Carlos Dominguez MD CHEMISTRY ORDERABLES Performing Organization Address City/[facility] Co de Phone Number [facility] [place] [address] * Lactate Dehydrogenase (07/25/2023 11:32 AM EDT) Lactate Dehydrogenase 172 110 - 220 unit/L [facility] Blood 07/25/2023 11:3 2 AM EDT 07/25/2023 11:44 AM EDT Narrative Resulting Agency Comment Spec In Lab Carlos Dominguez MD CHEMISTRY ORDERABLES Performing Organization Address [facility] de Phone Number [facility] [place] [address] * Comprehensive metabolic panel (non-fasting) (07/25/2023 11:32 AM EDT) Glucose 102 65 - 199 mg/dL [facility] Comment:Diabetes: >=200 mg/d L plus symptoms Blood Urea Nitrogen 16 8 - 18 mg/dL [facility] Creatinine 0.97 0.70 - 1.20 mg/dL [facility] Sodium 139 135 - 145 mmol/L [facility] Potassium 4.6 3.5 - 5.0 mmol/L [facility] Comment: Please note: ??Patients with WBC >100,000 may have falsely elevated Potassium levels. ??For accurate Potassium quantification in these patients send serum separator tube (gold top) for subsequent determinations. ??Contact the Clinical Chemistry Laboratory if there are any questions. Chloride 104 98 - 107 mmol/L [facility] Carbon Dioxide 27 22 - 31 mmol/L [facility] Anion Gap 8 5 - 15 mmol/L [facility] Calcium 9.5 8.5 - 10.5 mg/dL [facility] Protein, Total 6.7 6.1 - 8.0 g/dL [facility] Albumin 4.5 3.2 - 5.2 g/dL [facility] Aspartate Aminotransferase 13 0 - 30 unit/L [facility] Alanine Aminotransferase 12 0 - 30 unit/L [facility] Alkaline Phosphatase 66 35 - 105 unit/L [facility] Bilirubin, Total 0.5 0.2 - 1.3 mg/dL [facility] Est Glomerular Filtration Rate 68 >=60 mL/min/1. 73 m?? [facility] Comment: This patient's estimated GFR [...] Dominguez MD CHEMISTRY ORDERABLES Performing Organization Address City/State/[facility] Co de Phone Number [facility] [place] [address] documented in this encounter Visit Diagnoses Diagnosis Malignant melanoma of scalp Malignant melanoma of skin of scalp and neck Medication management Encounter for long-term (current) use of other medications documented in this encounter Care Teams Financial Counselor Relationship Specialty Start Date End Date Taylor Bryant APRN [address] [place] [address] PCP - General 03/31/10 documented as of this encounter
--- OUTSIDE RECORDS SUMMARY | 2024-04-02 14:03 | XMS_ITS | Encounter Summary ---
Author Organization [facility] Address [facility] [place] [address] Care Team Providers Care Cane Flume Chute Operator Name Role Phone Taylor Bryant APRN Primary Care Provider [phone] Encounter Details Date Type Department Care Team (Latest Contact Info) Description 07/25/2023 11:19 AM EDT - 07/25/2023 11:59 PM EDT Hospital Encounter Hematology and Oncology at [facility] [place] [phone] Medication management; Malignant melanoma of scalp Discharge Disposition: Home Social History Tobacco Use Types Packs/Day Years Used Date Smoking Tobacco: Former Smokeless Tobacco: Never Comments:quit at age 35 Alcohol Use Standard Drinks/Week Comments Yes 0 (1 standard drink = 0.6 oz pur e alcohol) social gatherings [facility] Utilities Answer Date Recorded In [...] TH Visit (TeleHealth) Hematology [place] [address] Jean-Pierre Peña MD [facility] [place] [address] 04/13/2024 2:30 PM EST Infusion Hematology Oncology at [address] [phone] 04/30/2024 12:15 PM EST Laboratory Appointment Lab at [facility] Hematology Oncology [address] [place] [phone] 04/30/2024 1:15 PM EST Office Visit Hematology [place] [address] Jean-Pierre Peña MD [facility] DR [place] [address] Vicky Burnham APRN [facility] [place] [address] 04/30/2024 2:30 PM EST Appointment Hematology and Oncology at [place] [phone] 05/22/2024 9:15 AM EST Laboratory Appointment Lab at [facility] Hematology Oncology [address] [place] [phone] 05/22/2024 10:[address] [place] [address] Jean-Pierre Peña MD [facility] DR [place] [address] 05/22/2024 11:30 AM EST Office Visit Dermatology at [address] [phone] Inderjit Vilchis MD [facility] DR GILBERTO [place] [address] 05/22/2024 2:00 PM EST Office Visit Hematology [place] [address] Jean-Pierre Peña MD [facility] [place] [address] 05/22/2024 3:30 PM EST Appointment Hematology [place] [address] 06/11/2024 4:15 PM EST TH Visit (TeleHealth) Hematology and Oncology [place] [facility] [place] [address] Jean-Pierre Peña MD [facility] DR HEMATOLOGY [place] [address] 06/12/2024 8:30 AM EST Infusion Hematology Oncology at [address] [phone] documented as of this encounter [...] 11:32 AM EDT) Neutrophil % 56.8 % [facility] Neutrophil Absolute 3.72 1.70 - 6.10 x10(3)/[facility] Lymph % 31.7 % [facility]AGE [facility] Lymphocytes Abs 2.1 0.9 - 3.2 x10(3)/[facility] Monocyte % 7.8 % [facility] HOSP ITAL LABORATORY Monocyte Abs 0.5 0.3 - 0.9 x10(3)/[facility] Eos % 2.6 % [facility] Eosinophils Abs 0.2 0.0 - 0.4 x10(3)/[facility] Basophil % 0.8 % [facility] ITAL LABORATORY Baso Absolute 0.0 0.0 - 0.1 x10(3)/[facility] Immature Gran % 0.30 % [facility] Comment: Immature granulocytes(IG's)percentage and absolute count will include metamyelocytes, myelocytes, and promyelocytes. Blood smears from CBCs yielding IG's will be scanned manually for concordance. If this scan disagrees with the automated IG or if promyelocytes are noted, a manual differential will be performed. Immature Gran Absolute 0.02 0.00 - 0.04 x10(3)/[facility] Blood 07/25/2023 11:3 2 AM EDT 07/25/2023 11:44 AM EDT Narrative Resulting Agency Comment Spec In Lab Carlos Dominguez MD HEMATOLOGY ORDERABLE S Performing Organization Address City/State/[facility] Co de Phone Number [facility] [place] [address] * (ABNORMAL) Hemogram (07/25/2023 11:32 AM EDT) White Blood Cell 6.5 4.0 - 9.5 x10(3)/mc L [facility] Red Blood Cell 4.23 4.00 - 5.21 x10(6)/mc L [facility] Hemoglobin 13.0 11.7 - 15.5 g/dL [facility] Hematocrit 39.1 35.7 - 45.8 % [facility] Mean Cell Volume 92.4 82.6 - 94.4 fL [facility] Mean Cell Hemoglobin 30.7 27.1 - 32.0 pg [facility] Mean Cell Hemoglobin Concentration 33.2 31.7 - 35.0 g/dL [facility] Platelet 362(H) 145 - 357 x10(3)/mc L [facility] RDW Standard Deviation 46.7(H) 37.0 - 46.0 fL [facility] RDW coefficient of variation 13.8 11.5 - 14.1 % [facility] Mean Platelet Volume 11.2 7.6 - 12.9 fL [facility] NRBC% auto 0.0 % [facility] HOSP ITAL LABORATORY NRBC Absolute 0.000 0.000 - 0.000 x10(3)/mc L [facility] Blood 07/25/2023 11:3 2 AM EDT 07/25/2023 11:44 AM EDT Narrative Resulting Agency Comment Spec In Lab Carlos Dominguez MD HEMATOLOGY ORDERABLE S [facility] [address] [place] [address] * Comprehensive metabolic panel (non-fasting) (07/25/2023 11:32 AM EDT) Glucose 102 65 - 199 mg/dL [facility] Comment:Diabetes: >=200 mg/d L plus symptoms Blood Urea Nitrogen 16 8 - 18 mg/dL [facility] Creatinine 0.97 0.70 - 1.20 mg/dL [facility] Sodium 139 135 - 145 mmol/L [facility] Potassium 4.6 3.5 - 5.0 mmol/L [facility] Comment: Please note: ??Patients with WBC >100,000 may have falsely elevated Potassium levels. ??For accurate Potassium quantification in these patients send serum separator tube (gold top) for subsequent determinations. ??Contact the Clinical Chemistry Laboratory if there are any questions. Chloride 104 98 - 107 mmol/L [facility] Carbon Dioxide 27 22 - 31 mmol/L [facility] Anion Gap 8 5 - 15 mmol/L [facility] Calcium 9.5 8.5 - 10.5 mg/dL [facility] Protein, Total 6.7 6.1 - 8.0 g/dL [facility] Albumin 4.5 3.2 - 5.2 g/dL [facility] Aspartate Aminotransferase 13 0 - 30 unit/L [facility] Alanine Aminotransferase 12 0 - 30 unit/L [facility] Alkaline Phosphatase 66 35 - 105 unit/L [facility] Bilirubin, Total 0.5 0.2 - 1.3 mg/dL [facility] Est Glomerular Filtration Rate 68 >=60 mL/min/1. 73 m?? [facility] Comment: This patient's estimated [...] Dominguez MD CHEMISTRY ORDERABLES Performing Organization Address [facility] Co de Phone Number [facility] [place] [phone] * Lactate Dehydrogenase (07/25/2023 11:32 AM EDT) Lactate Dehydrogenase 172 110 - 220 unit/L [facility] Blood 07/25/2023 11:3 2 AM EDT 07/25/2023 11:44 AM EDT Narrative Resulting Agency Comment Spec In Lab Carlos Dominguez MD CHEMISTRY ORDERABLES Performing Organization Address [facility] Co de Phone Number [facility] [place] [address] * T4, free (07/25/2023 11:32 AM EDT) Free T4 1.30 0.93 - 1.70 ng/dL [facility] Comment: Reference Interval (ng/dL): Females: ??First Trimester: 0.97-1.68 ??Second Trimester: 0.77-1.51 ??Third Trimester: 0.77-1.49 Blood 07/25/2023 11:3 2 AM EDT 07/25/2023 11:44 AM EDT Narrative Resulting Agency Comment Spec In Lab Carlos Dominguez MD CHEMISTRY ORDERABLES Performing Organization Address City/[facility]/ZIP Co de Phone Number [facility] [place] [address] * TSH (07/25/2023 11:32 AM EDT) Thyroid Stimulating Hormone 0.87 0.27 - 4.20 mcIU/mL [facility] Comment: Reference Interval (mcIU/mL): Females: ??First Trimester: 0.23-3.88 ??Second Trimester: 0.22-3.90 ??Third Trimester: 0.44-4.66 Blood 07/25/2023 11:3 2 AM EDT 07/25/2023 11:44 AM EDT Narrative Resulting Agency Comment Spec In Lab Carlos Dominguez MD CHEMISTRY ORDERABLES Performing Organization Address [facility] Co de Phone Number [facility] [place] [address] documented in this encounter Visit Diagnoses Diagnosis Medication management Encounter for long-term (current) use of other medications Malignant melanoma of scalp Malignant melanoma of skin of scalp and neck documented in this encounter Care Teams Cane Flume Chute Operator Relationship Specialty Start Date End Date Taylor Bryant APRN [address] [place] [address] PCP - General 03/31/10 documented as of this encounter
--- OUTSIDE RECORDS SUMMARY | 2024-04-02 14:03 | XMS_ITS | Encounter Summary ---
Author Organization [facility] [place] [address] Care Team Providers Care Fur Coat Sewer Name Role Phone Taylor Bryant APRN Primary Care Provider [phone] Encounter Details Date Type Department Care Team [...] TH Visit (TeleHealth) [place] [phone] Jean-Pierre Peña MD [facility] DR HEMATOLOGY [place] [address] 04/13/2024 2:30 PM EST Infusion Hematology Oncology at [address] [phone] 04/30/2024 12:15 PM EST Laboratory Appointment Lab at [facility] Hematology Oncology [address] [place] [phone] 04/30/2024 1:15 PM EST Office Visit [place] [phone] Jean-Pierre Peña MD [facility] DR HEMATOLOGY [place] [address] Vicky Burnham APRN [facility] [place] [address] 04/30/2024 2:30 PM EST Appointment Hematology and Oncology at [place] [phone] 05/22/2024 9:15 AM EST Laboratory Appointment Lab at [facility] Hematology Oncology [address] [place] [phone] 05/22/2024 10:[address] [place] [place] [phone] Jean-Pierre Peña MD [facility] DR HEMATOLOGY [place] [address] 05/22/2024 11:30 AM EST Office Visit Dermatology at [address] [phone] Inderjit Vilchis MD [facility] DR GILBERTO ST[place] [address] 05/22/2024 2:00 PM EST Office Visit [place] [address] Jean-Pierre Peña MD [facility] HEMATOLOGY [place] [address] 05/22/2024 3:30 PM EST Appointment Hematology [place] [phone] 06/11/2024 4:15 PM EST TH Visit (TeleHealth) [place] [address] Jean-Pierre Peña MD [facility] HEMATOLOGY [place] [address] 06/12/2024 8:30 AM EST Infusion Hematology Oncology at [address] [phone] documented as of this encounter Visit Diagnoses Not on filedocumented in this encounter Care Teams Fur Coat Sewer Relationship Specialty Start Date End Date Taylor Bryant, PHOTO MASK CLEANER [address] [place] [address] PCP - General 03/31/10 documented as of this encounter
--- OUTSIDE RECORDS SUMMARY | 2024-04-02 14:03 | XMS_ITS | Encounter Summary ---
[place] [address] Care Team Providers Care Auto Hauler Name Role Phone Taylor Bryant APRN Primary Care Provider [phone] [phone] Reason for Visit * Reason Comments Specialty Pharmacy Review Enbrel (etaner cept) Encounter Details Date Type Department Care Team (Late st Contact Info) Description 02/09/2021 Specialty [place] [phone] Licha Yanes, [facility] Social History Tobacco Use Types Packs/Day Years [...] Yanes - 02/09/2021 11:59 PM EDT The [facility] has completed a benefits investigation for Keeley Benny Gutierrez to review their eligibility to fill at [facility]. Per patient's medication list they are prescribed Enbrel (etanercept) and the medication is not able to be filled at the [facility]; patient is not currently on a specialty medication. documented in this encounter Plan of Treatment Upcoming Encounters Date Type Department Care Team (Late st Contact Info) Description 04/09/2024 4:15 PM EST TH Visit (TeleHealth) [place] [address] Jean-Pierre Peña MD [facility] [place] [address] 04/13/2024 2:30 PM EST Infusion Hematology Oncology at [address] [phone] 04/30/2024 12:15 PM EST Laboratory Appointment Lab at [facility] Hematology Oncology [address] [place] [phone] 04/30/2024 1:15 PM EST Office Visit Hematology [place] [address] Jean-Pierre Peña MD [facility] [place] [address] Vicky Burnham APRN [facility] [place] [address] 04/30/2024 2:30 PM EST Appointment Hematology [place] [address] 05/22/2024 9:15 AM EST Laboratory Appointment Lab at [facility] Hematology Oncology [address] [place] [phone] 05/22/2024 10:[address] [place] [place] [address] Jean-Pierre Peña MD [facility] [place] [address] 05/22/2024 11:30 AM EST Office Visit Dermatology at [facility] [address] [place] [address] Inderjit Vilchis MD [facility] DR [place] [address] 05/22/2024 2:00 PM EST Office Visit Hematology [place] [address] Jean-Pierre Peña MD [facility] [place] [address] 05/22/2024 3:30 PM EST Appointment Hematology [place] [address] 06/11/2024 4:15 PM EST TH Visit (TeleHealth) Hematology [place] [address] Jean-Pierre Peña MD [facility] [place] [address] 06/12/2024 8:30 AM EST Infusion Hematology Oncology at [address] [phone] documented as of this encounter Visit Diagnoses Not on filedocumented in this encounter Care Teams Auto Hauler Relationship Specialty Start Date End Date Taylor Bryant APRN [address] [place] [address] PCP - General 03/31/10 documented as of this encounter
--- OUTSIDE RECORDS SUMMARY | 2024-04-02 14:03 | XMS_ITS | Encounter Summary ---
Author Organization [facility] [address] Care Team Providers Care Production Pattern Maker Name Role Phone Taylor Bryant APRN Primary Care Provider [phone] Encounter Details Date Type Department Care Team (Late Contact Info) Description 02/16/2021 [place] [phone] Mabel Moreno Social History Tobacco Use Types [...] TH Visit (TeleHealth) [place]ology [place] [phone] Jean-Pierre Peña MD [facility] DR [place] [address] 04/13/2024 2:30 PM EST Infusion Hematology Oncology at [address] [phone] 04/30/2024 12:15 PM EST Laboratory Appointment Lab at [facility] Hematology Oncology [address] [place] [phone] 04/30/2024 1:15 PM EST Office Visit [place]ematology [place] [address] Jean-Pierre Peña MD [facility] DR [place] [address] Vicky Burnham APRN [facility] [place] [address] 04/30/2024 2:30 PM EST Appointment Hematology [place] [address] 05/22/2024 9:15 AM EST Laboratory Appointment Lab at [facility] Hematology Oncology [address] [place] [phone] 05/22/2024 10:[address] [place] [address] Jean-Pierre Peña MD [facility] DR [place] [address] 05/22/2024 11:30 AM EST Office Visit Dermatology at [address] [phone] Inderjit Vilchis MD [facility] DR [place] [address] 05/22/2024 2:00 PM EST Office Visit [place]ematology [place] [address] Jean-Pierre Peña MD [facility] [place] [address] 05/22/2024 3:30 PM EST Appointment Hematology [place] [address] 06/11/2024 4:15 PM EST TH Visit (TeleHealth) [place] [address] Jean-Pierre Peña MD [facility] DR [place] [address] 06/12/2024 8:30 AM EST Infusion Hematology Oncology at [address] [phone] documented as of this encounter Visit Diagnoses Not on filedocumented in this encounter Care Teams Production Pattern Maker Relationship Specialty Start Date End Date Taylor Bryant, ZARA [address] [place] [address] PCP - General 03/31/10 documented as of this encounter
--- OUTSIDE RECORDS SUMMARY | 2024-04-02 14:03 | XMS_ITS | Encounter Summary ---
Author Organization [facility] Address [facility] [place] [address] Care Team Providers Care Manager Of Maintenance Name Role Phone Taylor Bryant APRN Primary Care Provider [phone] Encounter Details Date Type Department Care Team ([facility] st Contact Info) Description 07/13/2023 Telephone Dermatology at [facility] [address] [place] [address] Inderjit Vilchis MD [facility] DR GILBERTO [place] [address] Social History Tobacco Use Types Packs/Day Years [...] she had on Tuesday. Please call backat [phone]. documented in this encounter Plan of Treatment Upcoming Encounters Date Type Department Care Team (Late st Contact Info) Description 04/09/2024 4:15 PM EST TH Visit (TeleHealth) Hematology [place] [address] Jean-Pierre Peña MD [facility] [place] [address] 04/13/2024 2:30 PM EST Infusion Hematology Oncology at [address] [phone] 04/30/2024 12:15 PM EST Laboratory Appointment Lab at [facility] Hematology Oncology [address] [place] [phone] 04/30/2024 1:15 PM EST Office Visit Hematology [place] [phone] Jean-Pierre Peña MD [facility] [place] [address] Vicky Burnham, BIOMETRICS TECHNICIAN [facility] [address] 04/30/2024 2:30 PM EST Appointment Hematology [place] [address] 05/22/2024 9:15 AM EST Laboratory Appointment Lab at [facility] Hematology Oncology [address] [place] [phone] 05/22/2024 10:[address] [place] [place] [address] Jean-Pierre Peña MD [facility] DR [place] [address] 05/22/2024 11:30 AM EST Office Visit Dermatology at [address] [address] Inderjit Vilchis MD [facility] DR GILBERT[place] [address] 05/22/2024 2:00 PM EST Office Visit Hematology [place] [address] Jean-Pierre Peña MD [facility] [place] [address] 05/22/2024 3:30 PM EST Appointment Hematology [place] [address] 06/11/2024 4:15 PM EST TH Visit (TeleHealth) Hematology [place] [address] Jean-Pierre Peña MD [facility] [place] [address] 06/12/2024 8:30 AM EST Infusion Hematology Oncology at [address] [phone] documented as of this encounter Visit Diagnoses Not on filedocumented in this encounter Care Teams Manager Of Maintenance Relationship Specialty Start Date End Date Taylor Bryant APRN [address] [place] [address] PCP - General 03/31/10 documented as of this encounter
--- OUTSIDE RECORDS SUMMARY | 2024-04-02 14:03 | XMS_ITS | Encounter Summary ---
Author Organization [facility] Address [facility] [place] [address] Care Team Providers Care Pest Technician Name Role Phone Taylor Bryant APRN Primary Care Provider [phone] [phone] Reason for Visit * Consultation (Routine) - Authorized Specialty Diagnoses / Procedures Referred By Crista padron Referred To Contact Dermatology Diagnoses Pigmented skin lesion suspicious for malignant neoplasm Taylor Bryant APRN [address] [place] [address] [facility] Dermatology [address] [place] [address] Referral ID Status Reason Start Date Expiration Date Visits Requested Visits Authorized [id number] Authorized Consult, Test & Treat PCP Updated and/or Approved 06/25/2023 06/24/2024 6 6 Encounter Details Date Type Department Care Team ([facility] st Contact Info) Description 06/27/2023 3:40 PM EST Office Visit Dermatology at 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 Patient returns to clinic today for a pigmented lesion on the back of the right scalp. ? Melanoma. Patient had a biopsy done at [facility] by Taylor Bryant last Tuesday but has not received the results yet. Assuming this is a melanoma, do not know and will not know the complete depth with the outside DH biopsy, re- read path here at [facility], might have her back here with me [...] Patient had biopsy by Taylor Bryant at [facility] on 06/21/23, results have not came back [...] results from outside facility []Note routed to harvest worker field crop []Recall placed in scheduling system [x]Appointment scheduled at checkout Scribe attestation: Keith Bentley LPN has performed the documentation for this encounter in the presence of and acting as a scribe for INDERJIT ARGUETA MD. I performed the above scribed service and agree with the accuracy of the documentation in this encounter. Reviewed and signed by: INDERJIT ARGUETA MD Dermatology [facility] documented in this encounter Plan of Treatment Upcoming Encounters Date Type Department Care Team (Late st Contact Info) Description 04/09/2024 4:15 PM EST TH Visit (TeleHealth) [place] [address] Jean-Pierre Peña MD [facility] [place] [address] 04/13/2024 2:30 PM EST Infusion Hematology Oncology at [address] [phone] 04/30/2024 12:15 PM EST Laboratory Appointment Lab at [facility] Hematology Oncology [address] [place] [phone] 04/30/2024 1:15 PM EST Office Visit [place] [address] Jean-Pierre Peña MD [facility] DR [place] [address] Vicky Burnham APRN [facility] [place] [address] 04/30/2024 2:30 PM EST Appointment Hematology and Oncology at [place] [phone] 05/22/2024 9:15 AM EST Laboratory Appointment Lab at [facility] Hematology Oncology [address] [place] [phone] 05/22/2024 10:[address] [place] [place] [phone] Jean-Pierre Peña MD [facility] DR [place] [address] 05/22/2024 11:30 AM EST Office Visit Dermatology at [address] [phone] Inderjit Argueta MD [facility] DR GILBERTO [place] [address] 05/22/2024 2:00 PM EST Office Visit [place]ematology [place] [address] Jean-Pierre Peña MD [facility] [place] [address] 05/22/2024 3:30 PM EST Appointment [place]ematology [place] [phone] 06/11/2024 4:15 PM EST TH Visit (TeleHealth) [place] [address] Jean-Pierre Peña MD [facility] [place] [address] 06/12/2024 8:30 AM EST Infusion Hematology Oncology at [address] [phone] Scheduled Referrals Name Type Priority Associated Diagnoses Order Schedule Referral to Dermatology Outpatient Referral Routine Pigmented skin lesion suspicious for malignant neoplasm Ordered: 06/25/2023 documented as of this encounter Visit Diagnoses Diagnosis Blue nevus Neoplasm of uncertain behavior of skin documented in this encounter Care Teams Pest Technician Relationship Specialty Start Date End Date Taylor Bryant, ZARA [address] [place] [address] PCP - General 03/31/10 documented as of this encounter
--- OUTSIDE RECORDS SUMMARY | 2024-04-02 14:03 | XMS_ITS | Encounter Summary ---
Author Organization [facility] Address [facility] [place] [address] Care Team Providers Care Hide Cooking Operator Name Role Phone Taylor Bryant APRN Primary Care Provider [phone] [phone] Encounter Details Date Type Department Care Team (Latest Contact Info) Description 07/25/2023 Travel Social History Tobacco Use Types Packs/Day Years Used Date Smoking Tobacco: Former Smokeless Tobacco: Never Comments:quit at age 35 Alcohol Use Standard Drinks/Week Comments Yes 0 (1 standard drink = 0.6 oz pur e alcohol) social gatherings [facility] Utilities Answer Date Recorded In the [...] TH Visit (TeleHealth) Hematology [place] [address] Jean-Pierre Peña MD [facility] DR [place] [address] 04/13/2024 2:30 PM EST Infusion Hematology Oncology at [address] [phone] 04/30/2024 12:15 PM EST Laboratory Appointment Lab at [facility] Hematology Oncology [address] [place] [phone] 04/30/2024 1:15 PM EST Office Visit Hematology [place] [phone] Jean-Pierre Peña MD [facility] DR [place] [address] Vicky Burnham APRN [facility] [place] [address] 04/30/2024 2:30 PM EST Appointment Hematology [place] [address] 05/22/2024 9:15 AM EST Laboratory Appointment Lab at [facility] Hematology Oncology [address] [place] [phone] 05/22/2024 10:[address] [place] [address] Jean-Pierre Peña MD [facility] DR [place] [address] 05/22/2024 11:30 AM EST Office Visit Dermatology at [facility] [address] [place] [address] Inderjit Vilchis MD [facility] DR GILBERTO [place] [address] 05/22/2024 2:00 PM EST Office Visit Hematology [place] [address] Jean-Pierre Peña MD [facility] [place] [address] 05/22/2024 3:30 PM EST Appointment Hematology [place] [address] 06/11/2024 4:15 PM EST TH Visit (TeleHealth) Hematology [place] [address] Jean-Pierre Peña MD [facility] [place] [address] 06/12/2024 8:30 AM EST Infusion Hematology Oncology at [address] [phone] documented as of this encounter Visit Diagnoses Not on filedocumented in this encounter Care Teams Hide Cooking Operator Relationship Specialty Start Date End Date Taylor Bryant, SURVEY DIRECTOR [address] [place] [address] PCP - General 03/31/10 documented as of this encounter
--- OUTSIDE RECORDS SUMMARY | 2024-04-02 14:03 | XMS_ITS | Encounter Summary ---
Author Organization [facility] Address [facility] [place] [address] Care Team Providers Care Air Chief Marshal Name Role Phone Taylor Bryant APRN Primary Care Provider [phone] [phone] Reason for Referral * Consultation (Routine) - Closed Specialty Diagnoses / Procedures Referred By Crista padron Referred To Contact Rheumatology Diagnoses Psoriatic arthritis Carlos Caceres MD [facility] [place] [address] [facility] Rheumatology [address] [place] [address] Referral ID Status Reason Start Date Expiration Date V isits Requested Visits Authorized [id number] Closed Consult, Test & Treat 12/14/2017 12/14/2018 1 1 Reason for Visit * Reason Comments Follow-up bilat knee pain Encounter Details Date Type Department Care Team ([facility] st Contact Info) Description 12/14/2017 4:30 PM EDT Office [place] [address] Carlos Caceres MD [facility] [place] [address] Pain in both knees, unspecified chronicity; Psoriatic [...] NAME: Keeley Gutierrez AGE: 52 y.o. MR#: [id number] DATE OF VISIT: 12/14/2017 CHIEF COMPLAINT: Problem [...] ladder, attempting conservative the rapy first with sjny-yzx-aquyefm anti-inflammatories such as ibuprofen or naproxen along [...] above. We discussed a referral to a public relations manager to evaluate her psoriatic arthritis. We have [...] TH Visit (TeleHealth) [place] [address] Jean-Pierre Peña MD [facility] [place] [address] 04/13/2024 2:30 PM EST Infusion Hematology Oncology at [address] [phone] 04/30/2024 12:15 PM EST Laboratory Appointment Lab at [facility] Hematology Oncology [address] [place] [phone] 04/30/2024 1:15 PM EST Office Visit [place]ology [place] [address] Jean-Pierre Peña MD [facility] [place] [address] Vicky Burnham APRN [facility] [place] [address] 04/30/2024 2:30 PM EST Appointment Hematology [place] [address] 05/22/2024 9:15 AM EST Laboratory Appointment Lab at [facility] Hematology Oncology [address] [place] [phone] 05/22/2024 10:[address] [place] [address] Jean-Pierre Peña MD [facility] [place] [address] 05/22/2024 11:30 AM EST Office Visit Dermatology at [facility] [address] [place] [address] Inderjit Vilchis MD [facility] DR GILB[place] [address] 05/22/2024 2:00 PM EST Office Visit [place]ematology [place] [address] Jean-Pierre Peña MD [facility] [place] [address] 05/22/2024 3:30 PM EST Appointment Hematology [place] [address] 06/11/2024 4:15 PM EST TH Visit (TeleHealth) [place] [address] Jean-Pierre Peña MD [facility] [place] [address] 06/12/2024 8:30 AM EST Infusion Hematology Oncology at [address] [phone] Scheduled Referrals Name Type Priority Associated Diagnoses Order Schedule Referral to Rheumatology Outpatient Referral Routine Psoriatic arthritis Ordered: 12/14/2017 documented as of this encounter Visit Diagnoses Diagnosis Pain in both knees, unspecified chronicity Psoriatic arthritis Psoriatic arthropathy documented in this encounter Care Teams Air Chief Marshal Relationship Specialty Start Date End Date Taylor Bryant APRN [address] [place] [address] PCP - General 03/31/10 documented as of this encounter
--- OUTSIDE RECORDS SUMMARY | 2024-04-02 14:03 | XMS_ITS | Encounter Summary ---
Author Organization [facility]ly [facility] Address [facility] [place] [address] Care Team Providers Care Rn Discharge Name Role Phone Taylor Bryant APRN Primary Care Provider [phone] [phone] Encounter Details Date Type Department Care Team (Late Contact Info) Description 04/11/2023 Interpretation Only [address] [address] Taylor Bryant APRN [address] [place] [address] Social History Tobacco Use Types Packs/Day Years [...] TH Visit (TeleHealth) Hematology [place] [address] Jean-Pierre Peña MD [facility] [place] [address] 04/13/2024 2:30 PM EST Infusion Hematology Oncology at [address] [phone] 04/30/2024 12:15 PM EST Laboratory Appointment Lab at [facility] Hematology Oncology [address] [place] [phone] 04/30/2024 1:15 PM EST Office Visit Hematology [place] [address] Jean-Pierre Peña MD [facility] [address] [place] [address] Vicky Burnham APRN [facility] [place] [address] 04/30/2024 2:30 PM EST Appointment Hematology and Oncology at [place] [phone] 05/22/2024 9:15 AM EST Laboratory Appointment Lab at [facility] Hematology Oncology [address] [place] [phone] 05/22/2024 10:[address] [place] [address] Jean-Pierre Peña MD [facility] DR [place] [address] 05/22/2024 11:30 AM EST Office Visit Dermatology at [address] [address] Inderjit Vilchis MD [facility] DR GILBERT[place] [address] 05/22/2024 2:00 PM EST Office Visit Hematology [place] [address] Jean-Pierre Peña MD [facility] [place] [address] 05/22/2024 3:30 PM EST Appointment Hematology [place] [address] 06/11/2024 4:15 PM EST TH Visit (TeleHealth) Hematology [place] [address] Jean-Pierre Peña MD [facility] [address] [place] [address] 06/12/2024 8:30 AM EST Infusion Hematology Oncology at [address] [phone] documented as of this encounter Procedures Procedure Name Priority Date/Time Associated Diagnosis Comments CT CHEST WO CONTRAST (GENERIC) Routine 04/11/2023 10:17 AM EST documented in this encounter Results * CT Chest wo Contrast (Generic) (04/11/2023 10:17 AM EST) PT CLASS O DH RAD ADMITDTTM [id number] DH RAD PT RAD INFO [id number]^Republic ^Taylor DH RAD EXAM DESC CTCHST^CT Chest w/o Contrast^RIS [...] who have questions please contact the health direct care provider that requested your imaging first. ? Electronically signed by: Killian Herman MD, [facility] ([phone]), at 04/11/2023 3:40 PM Narrative 04/11/2023 3:40 [...] patients who have questions please contactthe health direct care provider that requested your imaging first. Taylor Bryant APRN [facility] ORDERABLES documented in this encounter Visit Diagnoses Not on filedocumented in this encounter Care Teams Rn Discharge Relationship Specialty Start Date End Date Taylor Bryant APRN [address] [place] [address] PCP - General 03/31/10 documented as of this encounter
--- OUTSIDE RECORDS SUMMARY | 2024-04-02 14:03 | XMS_ITS | Encounter Summary ---
Author Organization [facility] [place] [address] Care Team Providers Care Making Machine Operator Name Role Phone Taylor Bryant APRN Primary Care Provider [phone] Encounter Details Date Type Department Care Team [...] TH Visit (TeleHealth) Hematology [place] [phone] Jean-Pierre Peña MD [facility] DR [place] [address] 04/13/2024 2:30 PM EST Infusion Hematology Oncology at [address] [phone] 04/30/2024 12:15 PM EST Laboratory Appointment Lab at [facility] Hematology Oncology [address] [place] [phone] 04/30/2024 1:15 PM EST Office Visit Hematology [place] [phone] Jean-Pierre Peña MD [facility] DR [place] [address] Vicky Burnham APRN [facility] [place] [address] 04/30/2024 2:30 PM EST Appointment Hematology and Oncology at [place] [phone] 05/22/2024 9:15 AM EST Laboratory Appointment Lab at [facility] Hematology Oncology [address] [place] [phone] 05/22/2024 10:[address] [place] [phone] Jean-Pierre Peña MD [facility] DR [place] [address] 05/22/2024 11:30 AM EST Office Visit Dermatology at [address] [phone] Inderjit Vilchis MD [facility] DR GILBERT[place] [address] 05/22/2024 2:00 PM EST Office Visit Hematology [place] [address] Jean-Pierre Peña MD [facility] [place] [address] 05/22/2024 3:30 PM EST Appointment Hematology [place] [phone] 06/11/2024 4:15 PM EST TH Visit (TeleHealth) Hematology [place] [address] Jean-Pierre Peña MD [facility] HEMATOLOGY [place] [address] 06/12/2024 8:30 AM EST Infusion Hematology Oncology at [address] [phone] documented as of this encounter Visit Diagnoses Not on filedocumented in this encounter Care Teams Making Machine Operator Relationship Specialty Start Date End Date Taylor Bryant, ENTRY LEVEL STAFF ACCOUNTANT [address] [place] [address] PCP - General 03/31/10 documented as of this encounter
--- OUTSIDE RECORDS SUMMARY | 2024-04-02 14:03 | XMS_ITS | Encounter Summary ---
Author Organization [facility] [place] [address] Care Team Providers Care Collection Systems Worker Name Role Phone Taylor Bryant APRN Primary Care Provider [phone] [phone] Encounter Details Date Type Department Care Team (Late Contact Info) Description 08/21/2021 Interpretation Only [address] [address] Jorge Luis Galicia MD [address] [place] [phone] Social History Tobacco Use Types Packs/Day [...] TH Visit (TeleHealth) Hematology [place] [address] Jean-Pierre Peña MD [facility] DR [place] [address] 04/13/2024 2:30 PM EST Infusion Hematology Oncology at [address] [address] 04/30/2024 12:15 PM EST Laboratory Appointment Lab at [facility] Hematology Oncology [address] [place] [address] 04/30/2024 1:15 PM EST Office Visit Hematology and Oncology at [place] [phone] Jean-Pierre Peña MD [facility] DR [place] [address] Vicky Burhnam APRN [facility] [place] [address] 04/30/2024 2:30 PM EST Appointment Hematology and Oncology at [place] [phone] 05/22/2024 9:15 AM EST Laboratory Appointment Lab at [facility] Hematology Oncology [address] [place] [phone] 05/22/2024 10:[address] [place] [place] [address] Jean-Pierre Peña MD [facility] DR [place] [address] 05/22/2024 11:30 AM EST Office Visit Dermatology at [address] [address] Inderjit Vilchis MD [facility] DR [place] [address] 05/22/2024 2:00 PM EST Office Visit Hematology [place] [address] Jean-Pierre Peña MD [facility] [place] [address] 05/22/2024 3:30 PM EST Appointment Hematology [place] [address] 06/11/2024 4:15 PM EST TH Visit (TeleHealth) [place] [address] Jean-Pierre Peña MD [facility] [address] [place] [address] 06/12/2024 8:30 AM EST Infusion Hematology Oncology at [address] [phone] documented as of this encounter Procedures Procedure Name Priority Date/Time Associated Diagnosis Comments XR HAND MIN 3 VIEWS LEFT Routine 08/21/2021 10:40 AM EDT documented in this encounter Results * XR Hand Min 3 views Left (Generic) (08/21/2021 10:40 AM EDT) PT CLASS O RAD ADMITDTTM RAD PT RAD INFO [id number]^F ORCIER^JORGE LUIS RAD EXAM DESC [id number]^XR LEFT [...] who have questions please contact the health gericare aide teacher that requested your imaging first. ? Narrative 08/21/2021 11:00 AM EDT EXAMINATION: XR [...] patients who have questions please contactthe health gericare aide teacher that requested your imaging first. Electronically signed by: Freedom Gonzáles MD[facility]([phone]), at 08/21/2021 11:00 AM Jorge Luis Galicia MD IMG DX ORDERABLES documented in this encounter Visit Diagnoses Not on filedocumented in this encounter Care Teams Collection Systems Worker Relationship Specialty Start Date End Date Taylor Bryant APRN [address] [place] [address] PCP - General 03/31/10 documented as of this encounter
--- OUTSIDE RECORDS SUMMARY | 2024-04-02 14:03 | XMS_ITS | Encounter Summary ---
Author Organization Formerly [facility] Address [facility] [place] [address] Care Team Providers Care Campaign Worker Name Role Phone Taylor Bryant APRN Primary Care Provider [phone] [phone] Encounter Details Date Type Department Care Team (Latest Contact Info) Description 02/09/2021 11:00 AM EDT TH Visit (TeleHealth) [place] [address] Seamus Rosario MD [facility] [place] [address] Psoriatic arthritis; Effusion of left knee; Medication [...] TH Visit (TeleHealth) Hematology [place] [address] Jean-Pierre Peña MD [facility] DR HEMATOLOGY [place] [address] 04/13/2024 2:30 PM EST Infusion Hematology Oncology at [address] [phone] 04/30/2024 12:15 PM EST Laboratory Appointment Lab [place] [facility] [place] [address] [place] [phone] 04/30/2024 1:15 PM EST Office Visit Hematology [place] [phone] Jean-Pierre Peña MD [facility] DR HEMATOLOGY [place] [address] Vicky Burnham APRN [facility] DR MEDICAL [place] [address] 04/30/2024 2:30 PM EST Appointment Hematology [place] [address] 05/22/2024 9:15 AM EST Laboratory Appointment Lab at [facility] [place]ology On[place] [address] [place] [phone] 05/22/2024 10:[address] [place] [phone] Jean-Pierre Peña MD [facility] DR HEMATOLOGY [place] [address] 05/22/2024 11:30 AM EST Office Visit Dermatology at [facility] [address] [place] [address] Inderjit Vilchis MD [facility] DR GILBERTO STERLING-[place] [address] 05/22/2024 2:00 PM EST Office Visit Hematology [place] [address] Jean-Pierre Peña MD [facility] DR HEMATOLOGY [place] [address] 05/22/2024 3:30 PM EST Appointment Hematology [place] [address] 06/11/2024 4:15 PM EST TH Visit (TeleHealth) Hematology [place] [address] Jean-Pierre Peña MD [facility] DR HEMATOLOGY [place] [address] 06/12/2024 8:30 AM EST Infusion Hematology Oncology at [address] [phone] documented as of this encounter [...] thigh documented in this encounter Care Teams Campaign Worker Relationship Specialty Start Date End Date Taylor Bryant APRN [address] [place] [address] PCP - General 03/31/10 documented as of this encounter
--- OUTSIDE RECORDS SUMMARY | 2024-04-02 14:03 | XMS_ITS | Encounter Summary ---
Author Organization [facility] Address [facility] [place] [address] Care Team Providers Care Child Day Care Provider Name Role Phone Taylor Bryant APRN Primary Care Provider [phone] Reason for Visit * Consultation (Routine) - Closed Specialty Diagnoses / Procedures Referred By Crista padron Referred To Contact Rheumatology Diagnoses Arthropathic psoriasis, unspecified Taylor Bryant APRN [address] [place] [address] [facility] [address] [place] [phone] Referral ID Status Reason Start Date Expiration Date V isits Requested Visits Authorized [id number] Closed Consult, Test & Treat Connection Center PCP Updated and/or Approved 07/09/2020 07/09/2021 6 6 Encounter Details Date Type Department Care Team ([facility] st Contact Info) Description 07/31/2020 3:00 PM EDT Office [place] [address] Seamus Rosario MD [facility] [place] [address] Psoriatic arthritis; Effusion of left knee; Medication [...] records available at the time of the [facility] appointment with in the medical record and [...] Antibody, Total ??? HIV Screen, 4th Generation ([facility]/CGP/APD/NLH) ??? Crystal Exam Body Fluid ??? Cell Count Body Fluid ??? Hemogram ??? Differential, Automated Return in about 4 weeks (around 08/28/2020) for Telehealth. documented in this encounter Plan of Treatment Upcoming Encounters Date Type Department Care Team (Late st Contact Info) Description 04/09/2024 4:15 PM EST TH Visit (TeleHealth) [place] [address] Jean-Pierre Peña MD [facility] [address] [place] [address] 04/13/2024 2:30 PM EST Infusion Hematology Oncology at [address] [phone] 04/30/2024 12:15 PM EST Laboratory Appointment Lab at [facility] Hematology Oncology [address] [place] [phone] 04/30/2024 1:15 PM EST Office Visit [place] [address] Jean-Pierre Peña MD [facility] [place] [address] Vicky Burnham APRN [facility] [place] [address] 04/30/2024 2:30 PM EST Appointment Hematology [place] [address] 05/22/2024 9:15 AM EST Laboratory Appointment Lab at [facility] Hematology Oncology [address] [place] [phone] 05/22/2024 10:[address] [place] [place] [address] Jean-Pierre Peña MD [facility] [place] [address] 05/22/2024 11:30 AM EST Office Visit Dermatology at [address] [place] [address] Inderjit Vilchis MD [facility] DR [place] [address] 05/22/2024 2:00 PM EST Office Visit [place] [address] Jean-Pierre Peña MD [facility] DR HEMATOLOGY [place] [address] 05/22/2024 3:30 PM EST Appointment Hematology and Oncology at [facility] [place] [address] 06/11/2024 4:15 PM EST TH Visit (TeleHealth) Hematology and Oncology at [facility] [place] [address] Jean-Pierre Peña MD [facility] DR HEMATOLOGY [place] [address] 06/12/2024 8:30 AM EST Infusion Hematology Oncology at [address] [phone] documented as of this encounter [...] 4:37 PM EDT) Neutrophil % 61.0 % [facility] Neutrophil Absolute 4.65 1.70 - 6.10 x10(3)/[facility] Lymph % 28.3 % [facility] Lymphocytes Abs 2.2 0.9 - 3.2 x10(3)/[facility] Monocyte % 7.2 % [facility] Monocyte Abs 0.6 0.3 - 0.9 x10(3)/[facility] Eos % 2.4 % [facility] Eosinophils Abs 0.2 0.0 - 0.4 x10(3)/[facility] Basophil % 0.8 % [facility] Baso Absolute 0.1 0.0 - 0.1 x10(3)/[facility] Immature Gran % 0.30 % [facility] Comment: Immature granulocytes(IG's)percentage and absolute count will include metamyelocytes, myelocytes, and promyelocytes. Blood smears from CBCs yielding IG's will be scanned manually for concordance. If this scan disagrees with the automated IG or if promyelocytes are noted, a manual differential will be performed. Immature Gran Absolute 0.02 0.00 - 0.04 x10(3)/[facility] Blood specimen (specimen) 07/31/2020 4:37 PM EDT 07/31/2020 4:50 PM EDT Narrative Resulting Agency Comment Spec In Lab Seamus Rosario MD HEMATOLOGY ORDERABLE S [facility] [place] [address] * (ABNORMAL) Hemogram (07/31/2020 4:37 PM EDT) White Blood Cell 7.6 4.0 - 9.5 x10(3)/mc L [facility] Red Blood Cell 3.94(L) 4.00 - 5.21 x10(6)/mc L [facility] Hemoglobin 12.4 11.7 - 15.5 gm/dL [facility] Hematocrit 36.7 35.7 - 45.8 % [facility] Mean Cell Volume 93.1 82.6 - 94.4 fL [facility] Mean Cell Hemoglobin 31.5 27.1 - 32.0 pg [facility] Mean Cell Hemoglobin Concentration 33.8 31.7 - 35.0 gm/dL [facility] Platelet 332 145 - 357 x10(3)/mc L [facility] RDW Standard Deviation 45.3 37.0 - 46.0 [facility] RDW coefficient of variation 13.2 11.5 - 14.1 % [facility] Mean Platelet Volume 11.2 7.6 - 12.9 fL [facility] NRBC% auto 0.0 % [facility] NRBC Absolute 0.000 0.000 - 0.000 x10(3)/mc L [facility] Blood specimen (specimen) 07/31/2020 4:37 PM EDT 07/31/2020 4:50 PM EDT Narrative Resulting Agency Comment Spec In Lab Seamus Rosario MD HEMATOLOGY ORDERABLE S Performing Organization Address City/[facility]/ZIP Co de Phone Number [facility] [place] [address] * CRP, acute inflammation (07/31/2020 4:37 PM EDT) [facility] Signature C-Reactive Protein 4.3 <=4.9 mg/L [facility] Blood specimen (specimen) 07/31/2020 4:37 PM EDT 07/31/2020 4:50 PM EDT Narrative Resulting Agency Comment Spec In Lab Seamus Rosario MD CHEMISTRY ORDERABLES Performing Organization Address City/[facility]/ZIP Co de Phone Number [facility] [place] [address] * Hepatic Function Panel (07/31/2020 4:37 PM EDT) Protein, Total 6.9 6.1 - 8.0 gm/dL [facility] Albumin 4.2 3.2 - 5.2 gm/dL [facility] Aspartate Aminotransferase 15 0 - 30 unit/L [facility] Alanine Aminotransferase 14 0 - 30 unit/L [facility] Alkaline Phosphatase 73 35 - 105 unit/L [facility] Bilirubin, Total 0.3 0.2 - 1.3 mg/dL [facility] Bilirubin, Direct 0.1 0.0 - 0.3 mg/dL [facility] Blood specimen (specimen) 07/31/2020 4:37 PM EDT 07/31/2020 4:50 PM EDT Narrative Resulting Agency Comment Spec In Lab Seamus Rosario MD CHEMISTRY ORDERABLES Performing Organization Address [facility] Co de Phone Number [facility] [place] [address] * Creatinine (07/31/2020 4:37 PM EDT) Creatinine 0.82 0.70 - 1.20 mg/dL [facility] Est Glomerular Filtration Rate 81 >=60 mL/min/1. 73 m?? [facility] Comment: This patient? s estimated glomerular [...] Rosario MD CHEMISTRY ORDERABLES Performing Organization Address City/[facility]/ZIP Co de Phone Number [facility] [place] [address] * Sedimentation rate (07/31/2020 4:37 PM EDT) Pathologist [facility] Sedimentation Rate Automated 16 2 - 39 mm/hr [facility] Comment: Effective April 18, 2019 new capillary photometric technology has resulted in a change in reference ranges. It is recommended that each ESR result be reviewed with its own age appropriate reference range. Blood specimen (specimen) 07/31/2020 4:37 PM EDT 07/31/2020 4:50 PM EDT Narrative Resulting Agency Comment Spec In Lab Seamus Rosario MD HEMATOLOGY ORDERABLE S Performing Organization Address [facility]/ZIP Co de Phone Number [facility] [place] [address] * HIV Screen, 4th Generation ([facility]/CGP/APD/NLH) (07/31/2020 4:37 PM EDT) [facility] HIV Ab/Ag Screen Negative Negative [facility] Comment: This 4th Generation [...] Rosario MD CHEMISTRY ORDERABLES Performing Organization Address City/[facility]/ZIP Co de Phone Number [facility] [place] [address] * Hepatitis B Core Antibody, Total (07/31/2020 4:37 PM EDT) Pathologist [facility] Hepatitis B Core Antibody Negative Negative [facility] Blood specimen (specimen) 07/31/2020 4:37 PM EDT 07/31/2020 4:50 PM EDT Narrative Resulting Agency Comment Spec In Lab Seamus Rosario MD CHEMISTRY ORDERABLES [facility] [place] [address] * Hepatitis B Surface Antigen (07/31/2020 4:37 PM EDT) Hepatitis B Surface Antigen Negative Negative [facility] Blood specimen (specimen) 07/31/2020 4:37 PM EDT 07/31/2020 4:50 PM EDT Narrative Resulting Agency Comment Spec In Lab Seamus Rosario MD CHEMISTRY ORDERABLES Performing Organization Address [facility] Co de Phone Number [facility] [place] [address] * QuantiFERON-TB Gold (07/31/2020 4:37 PM EDT) Quantiferon Nil 0.020 IU/mL [facility] QFT TB Ag1-Nil 0.010 IU/mL [facility] QFT TB Ag2-Nil 0.000 IU/mL [facility] Quantiferon Mitogen-Nil 8.040 IU/mL [facility] Quantiferon-TB Gold Negative Negative [facility] Quantiferon Tb Interp M. tuberculosis infection [...] affect immune function, or other immunological factors. [facility] Comment: The performance of the QFT-Plus [...] Rosario MD CHEMISTRY ORDERABLES Performing Organization Address [facility] Co de Phone Number [facility] [place] [address] * Hepatitis C Antibody (07/31/2020 4:37 PM EDT) Hepatitis C Antibody Negative Negative [facility] Blood specimen (specimen) 07/31/2020 4:37 PM EDT 07/31/2020 4:50 PM EDT Narrative Resulting Agency Comment Spec In Lab Seamus Rosario MD CHEMISTRY ORDERABLES Performing Organization Address [facility] Co de Phone Number [facility] [place] [address] * Hepatitis B Surface Antibody (07/31/2020 4:37 PM EDT) Pathologist [facility] Hepatitis B Surface Antibody, Quantitative <3.5 IU/L [facility] Comment: HepB Surface Ab Quant: Unvaccinated: < 8.5 IU/L Vaccinated: > 11.5 IU/L Hepatitis B Surface Antibody Negative [facility] Comment: Patient is presumed to be not vaccinated or immune to HBV infection. Expected Results: Vaccinated: Positive Unvaccinated: Negative Blood specimen (specimen) 07/31/2020 4:37 PM EDT 07/31/2020 4:50 PM EDT Narrative Resulting Agency Comment Spec In Lab Seamus Rosario MD CHEMISTRY ORDERABLES Performing Organization Address City/[facility]/ZIP Co de Phone Number [facility] [place] [address] * Cyclic Citrullinated Peptide (07/31/2020 4:37 PM EDT) Cyclic Citrulline Peptide <0.5 <=4.9 unit/mL [facility] Blood specimen (specimen) 07/31/2020 4:37 PM EDT 07/31/2020 4:50 PM EDT Narrative Resulting Agency Comment Spec In Lab Seamus Rosario MD CHEMISTRY ORDERABLES Performing Organization Address [facility]/ZIP Co de Phone Number [facility] [place] [address] * Rheumatoid factor, quant (07/31/2020 4:37 PM EDT) Rheumatoid Factor <10 <=14 IU/mL [facility] Blood specimen (specimen) 07/31/2020 4:37 PM EDT 07/31/2020 4:50 PM EDT Narrative Resulting Agency Comment Spec In Lab Seamus Rosario MD CHEMISTRY ORDERABLES Performing Organization Address City/[facility] Co de Phone Number [facility] [place] [place] [address] * HLA-B27 (07/31/2020 4:37 PM EDT) HLA-B27 Positive [facility] HLA B27 Interpretation HLA B27 antigen [...] spondylitis and HLA-27. Lancet 1973;1:904-907 2. Neil Zapata, Alice TOMLIN: HLA-B27 typing by the use of flow cytofluorometry. Clin Chem 1987;33:1619-162 3 [facility] White Blood Cell 7.6 4.0 - 9.5 x10(3)/m cL [facility] Blood specimen (specimen) 07/31/2020 4:37 PM EDT 07/31/2020 4:50 PM EDT Narrative Resulting Agency Comment Spec In Lab Seamus Rosario MD HEMATOLOGY ORDERABLE S Performing Organization Address City/State/[facility] Co de Phone Number [facility] [place] [address] documented in this encounter Visit Diagnoses Diagnosis Psoriatic arthritis Psoriatic arthropathy Effusion of left knee Effusion of lower leg joint Medication monitoring encounter Encounter for therapeutic drug monitoring High risk medication use Encounter for long-term (current) use of other medications Chronic bilateral low back pain without sciatica Bilateral hip pain Pain in joint, pelvic region and thigh documented in this encounter Care Teams Child Day Care Provider Relationship Specialty Start Date End Date Taylor Bryant APRN [address] [place] [address] PCP - General 03/31/10 documented as of this encounter
--- OUTSIDE RECORDS SUMMARY | 2024-04-02 14:03 | XMS_ITS | Encounter Summary ---
Author Organization [facility] Address [facility] [place] [address] Care Team Providers Care Software Support Engineer Name Role Phone Taylor Bryant APRN Primary Care Provider [phone] Encounter Details Date Type Department Care Team (Late Contact Info) Description 07/14/2023 External [place] [phone] Inderjit Vilchis MD [facility] DR GILBERTO [place] [address] Social History Tobacco Use Types Packs/Day Years [...] TH Visit (TeleHealth) Hematology [place] [phone] Jean-Pierre Peña MD [facility] [place] [address] 04/13/2024 2:30 PM EST Infusion Hematology Oncology at [address] [address] 04/30/2024 12:15 PM EST Laboratory Appointment Lab at [facility] Hematology Oncology [address] [place] [phone] 04/30/2024 1:15 PM EST Office Visit Hematology [place] [address] Jean-Pierre Peña MD [facility] DR [place] [address] Vicky Burnham APRN [facility] [place] [address] 04/30/2024 2:30 PM EST Appointment Hematology and Oncology at [place] [phone] 05/22/2024 9:15 AM EST Laboratory Appointment Lab at [facility] Hematology Oncology [address] [place] [phone] 05/22/2024 10:[address] [place] [address] Jean-Pierre Peña MD [facility] DR [place]EM[place] [address] 05/22/2024 11:30 AM EST Office Visit Dermatology at [address] [phone] Inderjit Vilchis MD [facility] DR GILBERTO [place] [address] 05/22/2024 2:00 PM EST Office Visit Hematology [place] [address] Jean-Pierre Peña MD [facility] [place]AT[place] [address] 05/22/2024 3:30 PM EST Appointment Hematology [place] [address] 06/11/2024 4:15 PM EST TH Visit (TeleHealth) Hematology [place] [address] Jean-Pierre Peña MD [facility] DR [place] [address] 06/12/2024 8:30 AM EST Infusion Hematology Oncology at [address] [phone] documented as of this encounter Procedures Procedure Name Priority Date/Time Associated Diagnosis Comments SURGICAL PATHOLOGY SCAN Routine 07/14/2023 12:13 PM EST documented in this encounter Results * Scan Doc: Surgical Pathology (07/14/2023 12:13 PM EST) Inderjit Vilchis MD MEDIA MGR SCAN EXT ORDR/RSLT documented in this encounter Visit Diagnoses Not on filedocumented in this encounter Care Teams Software Support Engineer Relationship Specialty Start Date End Date Taylor Bryant APRN [address] [place] [address] PCP - General 03/31/10 documented as of this encounter
--- OUTSIDE RECORDS SUMMARY | 2024-04-02 14:03 | XMS_ITS | Encounter Summary ---
Author Organization [facility] Address [facility] [place] [address] Care Team Providers Care Core Maker Name Role Phone Taylor Bryant APRN Primary Care Provider [phone] [phone] Encounter Details Date Type Department Care Team (Latest Contact Info) Description 07/12/2023 Multidisciplinary Ca re Committee Dermatology at [facility] [address] [place] [phone] Inderjit Vilchis MD [facility] DR GILBERTO [place] [address] Social History Tobacco Use Types Packs/Day Years [...] a nursing home (including now)? No 07/24/2023 DH IPV [...] and was advised they'll send it via [employer] in the next day or two. Stage: [...] TH Visit (TeleHealth) Hematology [place] [address] Jean-Pierre Peña MD [facility] DR [place] [address] 04/13/2024 2:30 PM EST Infusion Hematology Oncology at [address] [phone] 04/30/2024 12:15 PM EST Laboratory Appointment Lab at [facility] Hematology Oncology [address] [place] [phone] 04/30/2024 1:15 PM EST Office Visit Hematology [place] [address] Jean-Pierre Peña MD [facility] DR [place] [address] Vicky Burnham APRN [facility] [place] [address] 04/30/2024 2:30 PM EST Appointment Hematology [place] [address] 05/22/2024 9:15 AM EST Laboratory Appointment Lab at [facility] Hematology Oncology [address] [place] [phone] 05/22/2024 10:[address] [place] [address] Jean-Pierre Peña MD [facility] DR [place]EM[place] [address] 05/22/2024 11:30 AM EST Office Visit Dermatology at [facility] [address] [place] [phone] Inderjit Vilchis MD [facility] DR GILBERTO [place] [address] 05/22/2024 2:00 PM EST Office Visit Hematology [place] [address] Jean-Pierre Peña MD [facility] DR [place] [address] 05/22/2024 3:30 PM EST Appointment Hematology [place] [address] 06/11/2024 4:15 PM EST TH Visit (TeleHealth) Hematology [place] [address] Jean-Pierre Peña MD [facility] DR [place] [address] 06/12/2024 8:30 AM EST Infusion Hematology Oncology at [address] [phone] documented as of this encounter Visit Diagnoses Not on filedocumented in this encounter Care Teams Core Maker Relationship Specialty Start Date End Date Taylor Bryant APRN [address] [place] [address] PCP - General 03/31/10 documented as of this encounter
--- OUTSIDE RECORDS SUMMARY | 2024-04-02 14:03 | XMS_ITS | Encounter Summary ---
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, unspecified lymph node region Procedures IR Biopsy Lymph Node (Head/Neck) IR All Biopsy Procedures Jean-Pierre Peña MD [facility] DR HEMATOLOGY [place] [address] [facility] [place] [place] [address] Referral ID Status Reason Start Date Expiration Date V isits Requested Visits Authorized [id number] Closed Specialty Service Requested 07/25/2023 01/24/2025 1 1 Reason for Visit * Reason Comments Advice Only Encounter Details Date Type Department Care Team (Late st Contact Info) Description 07/25/2023 1:15 PM EDT Office Visit [place]ematology [place] [address] Jean-Pierre Peña MD [facility] DR HEMATOLOGY [place] [address] Malignant melanoma of scalp (Primary Dx); Malignant [...] original note were not included. INITIAL VISIT [facility] NOTE REFERING PHYSICIAN: DIAGNOSIS: Right occipital [...] TH Visit (TeleHealth) [place]ology [place] [address] Jean-Pierre Peña MD [facility] DR HEMATOLOGY [place] [address] 04/13/2024 2:30 PM EST Infusion Hematology Oncology at [address] [address] 04/30/2024 12:15 PM EST Laboratory Appointment Lab at [facility] Hematology Oncology [address] [place] [phone] 04/30/2024 1:15 PM EST Office Visit [place]ematology [place] [address] Jean-Pierre Peña MD [facility] DR HEMATOLOGY [place] [address] Vicky Burnham APRN [facility] [place] [address] 04/30/2024 2:30 PM EST Appointment Hematology [place] [address] 05/22/2024 9:15 AM EST Laboratory Appointment Lab at [facility] Hematology Oncology [address] [place] [phone] 05/22/2024 10:[address] [place] [place] [address] Jean-Pierre Peña MD [facility] DR HEMATOLOGY [place] [address] 05/22/2024 11:30 AM EST Office Visit Dermatology at [facility] [address] [place] [address] Inedrjit Vilchis MD [facility] DR GILBERTO [place] [address] 05/22/2024 2:00 PM EST Office Visit Hematology [place] [phone] Jean-Pierre Peña MD [facility] DR HEMATOLOGY [place] [address] 05/22/2024 3:30 PM EST Appointment Hematology [place] [phone] 06/11/2024 4:15 PM EST TH Visit (TeleHealth) [place]ematology [place] [phone] Jean-Pierre Peña MD [facility] DR HEMATOLOGY [place] [address] 06/12/2024 8:30 AM EST Infusion Hematology Oncology at [address] [address] Scheduled Orders Name Type Priority Associated Diagnoses [...] a RIGHT level Ib cervical chain node. Barkeep: Norm Evans M.D. Attending: Matty Mukherjee M.D. [...] have questions please contact the health childcare center director that requested your imaging first. ? [...] of a RIGHT level Ib cervicalchain node. Barkeep: Norm Evans M.D. Attending: Matty Mukherjee M.D. Preliminary report signed by: Norm Evnas at 08/09/2023 3:27 PM I participated in [...] who have questions please contactthe health childcare center director that requested your imaging first. Jean-Pierre Peña [...] region documented in this encounter Care Teams Office Machine Repair Shop Supervisor Relationship Specialty Start Date End Date Taylor Bryant, CARBONIZER TESTER [address] [place] [address] PCP - General 03/31/10 documented as of this encounter
--- OUTSIDE RECORDS SUMMARY | 2024-04-02 14:03 | XMS_ITS | Encounter Summary ---
Author Organization [facility]1983 Address [facility] [place] [address] Care Team Providers Care Bike Designer Name Role Phone Taylor Bryant APRN Primary Care Provider [phone] [phone] Reason for Visit * Reason Comments Specialty Pharmacy Review etanercept (EN BREL) 50 mg/mL (0.98 mL) Encounter Details Date Type Department Care Team (Late st Contact Info) Description 07/31/2020 Specialty [place] [phone] Calderon Mendoza Social History Tobacco Use Types [...] to review their eligibility to fill at [facility]. Per patient's medication list they are prescribed etanercept (ENBREL) 50 mg/mL (0.98 mL) and the medication may be able to be filled at the [facility], and currently on hold pending ortho eval. documented in this encounter Plan of Treatment Upcoming Encounters Date Type Department Care Team (Late st Contact Info) Description 04/09/2024 4:15 PM EST TH Visit (TeleHealth) [place] [address] Jean-Pierre Peña MD [facility] [address] [place] [address] 04/13/2024 2:30 PM EST Infusion Hematology Oncology at [address] [address] 04/30/2024 12:15 PM EST Laboratory Appointment Lab at [facility] Hematology Oncology [address] [place] [phone] 04/30/2024 1:15 PM EST Office Visit [place] [address] Jean-Pierre Peña MD [facility] [address] [place] [address] Vicky Burnham APRN [facility] [place] [address] 04/30/2024 2:30 PM EST Appointment Hematology [place] [address] 05/22/2024 9:15 AM EST Laboratory Appointment Lab at [facility] Hematology Oncology [address] [place] [phone] 05/22/2024 10:[address] [place] [place] [address] Jean-Pierre Peña MD [facility] DR [place] [address] 05/22/2024 11:30 AM EST Office Visit Dermatology at [address] [phone] Inderjit Vilchis MD [facility] [place] [address] 05/22/2024 2:00 PM EST Office Visit [place] [address] Jean-Pierre Peña MD [facility] [place] [address] 05/22/2024 3:30 PM EST Appointment Hematology [place] [address] 06/11/2024 4:15 PM EST TH Visit (TeleHealth) [place] [address] Jean-Pierre Peña MD [facility] [address] [place] [address] 06/12/2024 8:30 AM EST Infusion Hematology Oncology at [address] [address] documented as of this encounter Visit Diagnoses Not on filedocumented in this encounter Care Teams Bike Designer Relationship Specialty Start Date End Date Taylor Bryant APRN [address] [place] [address] PCP - General 03/31/10 documented as of this encounter
--- OUTSIDE RECORDS SUMMARY | 2024-04-02 14:03 | XMS_ITS | Encounter Summary ---
Author Organization [facility] Address [facility] [place] [address] Care Team Providers Care Reed Polisher Name Role Phone Taylor Bryant APRN Primary Care Provider [phone] [phone] Reason for Visit * Diagnostic Test (Routine) - Closed Specialty Diagnoses / Procedures Referred By Crista t Referred To Contact Radiology Diagnoses Malignant melanoma, unspecified site Procedures NM PET CT Standard Plus Extremities and Head Inderjit Vilchis MD [facility] DR GILBERT[place] [address] [facility] [place] [address] Referral ID Status Reason Start Date Expiration Date V isits Requested Visits Authorized [id number] Closed Specialty Service Requested 07/05/2023 01/02/2025 1 1 Encounter Details Date Type Department Care Team (Latest Contact Info) Description 07/11/2023 7:46 AM EST - 07/11/2023 11:59 PM [facility] Encounter [place] [address] Inderjit Vilchis MD [facility] DR GILBERT[place] [address] Discharge Disposition: Home Social History [...] TH Visit (TeleHealth) [place]ology [place] [address] Jean-Pierre Peña MD [facility] [address] [place] [address] 04/13/2024 2:30 PM EST Infusion Hematology Oncology at [address] [phone] 04/30/2024 12:15 PM EST Laboratory Appointment Lab at [facility] Hematology Oncology [address] [place] [phone] 04/30/2024 1:15 PM EST Office Visit [place]ematology [place] [address] Jean-Pierre Peña MD [facility] [place] [address] Vicky Burnham APRN [facility] [place] [address] 04/30/2024 2:30 PM EST Appointment Hematology [place] [address] 05/22/2024 9:15 AM EST Laboratory Appointment Lab at [facility] Hematology Oncology [address] [place] [phone] 05/22/2024 10:[address] [place] [place] [address] Jean-Pierre Peña MD [facility] DR [place] [address] 05/22/2024 11:30 AM EST Office Visit Dermatology at [address] [address] Inderjit Vilchis MD [facility] DR GILBERT[place] [address] 05/22/2024 2:00 PM EST Office Visit [place]ematology [place] [address] Jean-Pierre Peña MD [facility] [address] [place] [address] 05/22/2024 3:30 PM EST Appointment Hematology [place] [address] 06/11/2024 4:15 PM EST TH Visit (TeleHealth) [place]ology [place] [address] Jean-Pierre Peña MD [facility] [place] [address] 06/12/2024 8:30 AM EST Infusion Hematology Oncology at [address] [address] documented as of this encounter Procedures Procedure [...] have questions please contact the health healthcare network consultant that requested your imaging first. ? Electronically signed by: Renard Hoffman MD, [facility] ([phone]), at 07/14/2023 9:53 AM Narrative 07/14/2023 9:53 AM EST EXAMINATION: NM PET CT STANDARD PLUS EXTREMITIES AND HEAD CLINICAL HISTORY: Melanoma, staging C43.9, Malignant melanoma of skin, unspecified TECHNIQUE: Procedure: Following IV injection of 04-eggomm-9-deoxyglucose (FDG) a standard uptake of approximately 60 [...] unspecified TECHNIQUE: Procedure: Following IV injection of 44-cnemwf-7-deoxyglucose(FDG) a standard uptake of approximately 60 minutes, [...] who have questions please contactthe health healthcare network consultant that requested your imaging first. Electronically signed by: Renard Hoffman MD, [facility]([phone]), at 07/14/2023 9:53 AM Inderjit Vilchis MD IMG PET ORDERAB LES documented in this encounter Visit Diagnoses Not on filedocumented in this encounter Care Teams Reed Polisher Relationship Specialty Start Date End Date Taylor Bryant, MIRROR FRAMER [address] [place] [address] PCP - General 03/31/10 documented as of this encounter
--- OUTSIDE RECORDS SUMMARY | 2024-04-02 14:03 | XMS_ITS | Encounter Summary ---
Author Organization [facility] [place] [address] Care Team Providers Care Glass Washer Name Role Phone Taylor Bryant APRN Primary Care Provider [phone] [phone] Reason for Referral * Consultation (Routine) - Authorized Specialty Diagnoses / Procedures Referred By Crista padron Referred To Contact Dermatology Diagnoses Pigmented skin lesion suspicious for malignant neoplasm Taylor Bryant APRN [address] [place] [address] [facility] Dermatology [address] [place] [address] Referral ID Status Reason Start Date Expiration Date Visits Requested Visits Authorized [id number] Authorized Consult, Test & Treat PCP Updated and/or Approved 06/25/2023 06/24/2024 6 6 Encounter Details Date Type Department Care Team (Latest Contact Info) Description 06/25/2023 Transcribe Orders eDH Incoming Referrals [phone] Taylor Bryant APRN [address] [place] [address] Pigmented skin lesion suspicious for [...] TH Visit (TeleHealth) [place]ematology [place] [address] Jean-Pierre Peña MD [facility] DR [place] [address] 04/13/2024 2:30 PM EST Infusion Hematology Oncology at [address] [address] 04/30/2024 12:15 PM EST Laboratory Appointment Lab at [facility] Hematology Oncology [address] [place] [phone] 04/30/2024 1:15 PM EST Office Visit Hematology [place] [address] Jean-Pierre Peña MD [facility] DR [place] [address] Vicky Burnham APRN [facility] [place] [address] 04/30/2024 2:30 PM EST Appointment Hematology [place] [address] 05/22/2024 9:15 AM EST Laboratory Appointment Lab at [facility] Hematology Oncology [address] [place] [phone] 05/22/2024 10:[address] [place] [place] [address] Jean-Pierre Peña MD [facility] DR [place] [address] 05/22/2024 11:30 AM EST Office Visit Dermatology at [facility] [address] [place] [address] Inderjit Vilchis MD [facility] DR GILBERT[place] [address] 05/22/2024 2:00 PM EST Office Visit Hematology [place] [address] Jean-Pierre Peña MD [facility] DR [place] [address] 05/22/2024 3:30 PM EST Appointment Hematology [place] [address] 06/11/2024 4:15 PM EST TH Visit (TeleHealth) [place]ematology [place] [address] Jean-Pierre Peña MD [facility] DR [place] [address] 06/12/2024 8:30 AM EST Infusion Hematology Oncology at [address] [phone] Scheduled Referrals Name Type Priority Associated Diagnoses Order Schedule Referral to Dermatology Outpatient Referral Routine Pigmented skin lesion suspicious for malignant neoplasm Ordered: 06/25/2023 documented as of this encounter Visit Diagnoses Diagnosis Pigmented skin lesion suspicious for malignant neoplasm documented in this encounter Care Teams Glass Washer Relationship Specialty Start Date End Date Taylor Bryant, [employer] [address] [place] [address] PCP - General 03/31/10 documented as of this encounter
--- OUTSIDE RECORDS SUMMARY | 2024-04-02 14:03 | XMS_ITS | Encounter Summary ---
Author Organization [facility] Address [facility] [place] [address] Care Team Providers Care Manager Sql Name Role Phone Taylor Bryant APRN Primary Care Provider [phone] [phone] Reason for Referral * Comprehensive Melanoma Consult (Routine) - Closed Specialty Diagnoses / Procedures Referred By Crista t Referred To Contact Otolaryngology Diagnoses Malignant melanoma, unspecified site sent to [facility] 08/02 Inderjit Vilchis MD [facility] DR GILBERTO [place] [address] [facility] Otolaryngology [address] [place] [phone] Referral ID Status Reason Start Date Expiration Date V isits Requested Visits Authorized [id number] Closed Consult, Test & Treat 07/05/2023 07/04/2024 1 1 * Diagnostic Test (Routine) - Closed Specialty Diagnoses / Procedures Referred By Crista t Referred To Contact Radiology Diagnoses Malignant melanoma, unspecified site Procedures NM PET CT Standard Plus Extremities and Head Inderjit Vilchis MD [facility] DR GILBERTO [place] [address] [place] [address] Referral ID Status Reason Start Date Expiration Date V isits Requested Visits Authorized [id number] Closed Specialty Service Requested 07/05/2023 01/02/2025 1 1 Encounter Details Date Type Department Care Team (Late st Contact Info) Description 07/05/2023 Orders Only Dermatology at [facility] [address] [place] [address] Inderjit Vilchis MD [facility] DR GILBERTO [place] [address] Malignant melanoma, unspecified site Social History Tobacco [...] TH Visit (TeleHealth) Hematology [place] [address] Jean-Pierre Peña MD [facility] DR HEMATOLOGY [place] [address] 04/13/2024 2:30 PM EST Infusion Hematology Oncology at [address] [address] 04/30/2024 12:15 PM EST Laboratory Appointment Lab at [facility] Hematology Oncology [address] [place] [address] 04/30/2024 1:15 PM EST Office Visit Hematology [place] [phone] Jean-Pierre Peña MD [facility] HEMATOLOGY [place] [address] Vicky Burnham APRN [facility] [place] [address] 04/30/2024 2:30 PM EST Appointment Hematology and Oncology at [place] [phone] 05/22/2024 9:15 AM EST Laboratory Appointment Lab at [facility] Hematology [address] [phone] 05/22/2024 10:[address] Scan at [place] [phone] Jean-Pierre Peña MD [facility] HEMATOLOGY [place] [address] 05/22/2024 11:30 AM EST Office Visit Dermatology at [address] [address] Inderjit Vilchis MD [facility] DR GILBERTO [place] [address] 05/22/2024 2:00 PM EST Office Visit Hematology and Oncology at [place] [phone] Jean-Pierre Peña MD [facility] HEMATOLOGY [place] [address] 05/22/2024 3:30 PM EST Appointment Hematology [place] [address] 06/11/2024 4:15 PM EST TH Visit (TeleHealth) Hematology [place] [address] Jean-Pierre Peña MD [facility] HEMATOLOGY [place] [address] 06/12/2024 8:30 AM EST Infusion Hematology Oncology at [address] [address] Scheduled Referrals Name Type Priority Associated Diagnoses [...] who have questions please contact the health medication care manager that requested your imaging first. ? Narrative 07/14/2023 9:53 AM EST EXAMINATION: NM PET CT STANDARD PLUS EXTREMITIES AND HEAD CLINICAL HISTORY: Melanoma, staging C43.9, Malignant melanoma of skin, unspecified TECHNIQUE: Procedure: Following IV injection of 26-ssbznr-2-deoxyglucose (FDG) a standard uptake of approximately 60 [...] Note Renard Hoffman MD - 07/14/2023 EXAMINATION: [place] PET CT STANDARD PLUS EXTREMITIES AND HEAD CLINICAL HISTORY: Melanoma, staging C43.9, Malignant melanoma of skin, unspecified TECHNIQUE: Procedure: Following IV injection of 75-mufxuo-7-deoxyglucose(FDG) a standard uptake of approximately 60 minutes, [...] patients who have questions please contactthe health medication care manager that requested your imaging first. Inderjit Vilchis MD IMG PET ORDERAB LES documented in this encounter Visit Diagnoses Diagnosis Malignant melanoma, unspecified site Malignant melanoma, unspecified site documented in this encounter Care Teams Manager Sql Relationship Specialty Start Date End Date Taylor Bryant APRN [address] [place] [address] PCP - General 03/31/10 documented as of this encounter
--- OUTSIDE RECORDS SUMMARY | 2024-04-02 14:03 | XMS_ITS | Encounter Summary ---
Author Organization [facility] [place] [address] Care Team Providers Care Clinical Investigator Name Role Phone Taylor Bryant APRN Primary Care Provider +1 [phone] Encounter Details Date Type Department Care Team [...] TH Visit (TeleHealth) [place] [phone] Jean-Pierre Peña MD [facility] DR HEMATOLOGY [place] [address] 04/13/2024 2:30 PM EST Infusion Hematology Oncology at [address] [phone] 04/30/2024 12:15 PM EST Laboratory Appointment Lab at [facility] Hematology Oncology [address] [place] [phone] 04/30/2024 1:15 PM EST Office Visit [place] [phone] Jean-Pierre Peña MD [facility] DR HEMATOLOGY [place] [address] Vicky Burnham APRN [facility] [place] [address] 04/30/2024 2:30 PM EST Appointment Hematology and Oncology at [place] [phone] 05/22/2024 9:15 AM EST Laboratory Appointment Lab at [facility] Hematology Oncology [address] [place] [phone] 05/22/2024 10:[address] [place] [place] [phone] Jean-Pierre Peña MD [facility] DR HEMATOLOGY [place] [address] 05/22/2024 11:30 AM EST Office Visit Dermatology at [address] [phone] Inderjit Vilchis MD [facility] DR GILBERTO [place] [address] 05/22/2024 2:00 PM EST Office Visit [place]ematology [place] [address] Jean-Pierre Peña MD [facility] HEMATOLOGY [place] [address] 05/22/2024 3:30 PM EST Appointment Hematology [place] [phone] 06/11/2024 4:15 PM EST TH Visit (TeleHealth) [place] [address] Jean-Pierre Peña MD [facility] HEMATOLOGY [place] [address] 06/12/2024 8:30 AM EST Infusion Hematology Oncology at [address] [phone] documented as of this encounter Visit Diagnoses Not on filedocumented in this encounter Care Teams Clinical Investigator Relationship Specialty Start Date End Date Taylor Bryant, FELTING MACHINE OPERATOR HELPER [address] [place] [address] PCP - General 03/31/10 documented as of this encounter
--- OUTSIDE RECORDS SUMMARY | 2024-04-02 14:03 | XMS_ITS | Encounter Summary ---
Author Organization [facility] [place] [address] Care Team Providers Care Ob Scrub Tech Name Role Phone Taylor Bryant APRN Primary Care Provider +1 [phone] Encounter Details Date Type Department Care Team [...] TH Visit (TeleHealth) [place] [phone] Jean-Pierre Peña MD [facility] DR [place] [address] 04/13/2024 2:30 PM EST Infusion Hematology Oncology at [address] [address] 04/30/2024 12:15 PM EST Laboratory Appointment Lab at [facility] Hematology Oncology [address] [place] [phone] 04/30/2024 1:15 PM EST Office Visit [place] [phone] Jean-Pierre Peña MD [facility] DR [place] [address] Vicky Burnham APRN [facility] [place] [address] 04/30/2024 2:30 PM EST Appointment Hematology and Oncology at [place] [phone] 05/22/2024 9:15 AM EST Laboratory Appointment Lab at [facility] Hematology Oncology [address] [place] [phone] 05/22/2024 10:[address] [place] [place] [phone] Jean-Pierre Peña MD [facility] DR [place] [address] 05/22/2024 11:30 AM EST Office Visit Dermatology at [address] [phone] Inderjit Vilchis MD [facility] DR GILBERTO [place] [address] 05/22/2024 2:00 PM EST Office Visit [place] [address] Jean-Pierre Peña MD [facility] [place] [address] 05/22/2024 3:30 PM EST Appointment [place] [phone] 06/11/2024 4:15 PM EST TH Visit (TeleHealth) [place] [address] Jean-Pierre Peña MD [facility] HEMATOLOGY [place] [address] 06/12/2024 8:30 AM EST Infusion Hematology Oncology at [address] [phone] documented as of this encounter Visit Diagnoses Not on filedocumented in this encounter Care Teams Ob Scrub Tech Relationship Specialty Start Date End Date Taylor Bryant, OFFICE AUDITOR [address] [place] [address] PCP - General 03/31/10 documented as of this encounter
--- OUTSIDE RECORDS SUMMARY | 2024-04-02 14:03 | XMS_ITS | Encounter Summary ---
Author Organization [facility] [place] [address] Care Team Providers Care Juvenile Justice Specialist Name Role Phone Taylor Bryant ZARA Primary Care Provider [phone] [phone] Reason for Referral * Diagnostic Test (Routine) - Closed Specialty Diagnoses / Procedures Referred By Crista t Referred To Contact Radiology Diagnoses Malignant melanoma, unspecified site Procedures MRI Brain wwo Contrast (Generic) Neida Luong APRN [facility] [place] [address] [place] [address] Referral ID Status Reason Start Date Expiration Date V isits Requested Visits Authorized [id number] Closed Specialty Service Requested 07/19/2023 01/18/2025 1 1 Encounter Details Date Type Department Care Team (Late st Contact Info) Description 07/19/2023 Orders Only Hematology [place] [address] Neida Luong APRN [facility] [place] [address] Malignant melanoma, unspecified site Social History Tobacco [...] Visit (TeleHealth) Hematology [place] [address] Jean-Pierre Peña MD [facility] [place] [address] 04/13/2024 2:30 PM EST Infusion Hematology Oncology at [address] [phone] 04/30/2024 12:15 PM EST Laboratory Appointment Lab at [facility] Hematology Oncology [address] [place] [phone] 04/30/2024 1:15 PM EST Office Visit Hematology [place] [address] Jean-Pierre Peña MD [facility] [place] [address] Vicky Burnham APRN [facility] [place] [place] [address] 04/30/2024 2:30 PM EST Appointment Hematology [place] [address] 05/22/2024 9:15 AM EST Laboratory Appointment Lab at [facility] Hematology Oncology [address] [place] [phone] 05/22/2024 10:[address] [place] [phone] Jean-Pierre Peña MD [facility] [place] [address] 05/22/2024 11:30 AM EST Office Visit Dermatology at [facility] [address] [place] [address] Inderjit Vilchis MD [facility] DR GILBERT[place] [address] 05/22/2024 2:00 PM EST Office Visit Hematology [place] [phone] Jean-Pierre Peña MD [facility] [place] [address] 05/22/2024 3:30 PM EST Appointment Hematology [place] [phone] 06/11/2024 4:15 PM EST TH Visit (TeleHealth) Hematology [place] [phone] Jean-Pierre Peña MD [facility] [place] [address] 06/12/2024 8:30 AM EST Infusion Hematology Oncology at [address] [phone] documented as of this encounter Results * [...] primary care that requested your imaging first. Neida Luong DEBATE DIRECTOR IMG MRI ORDERABLES documented in this encounter Visit Diagnoses Diagnosis Malignant melanoma, unspecified site Malignant melanoma, unspecified site documented in this encounter Care Teams Juvenile Justice Specialist Relationship Specialty Start Date End Date Taylor Bryant APRN [address] [place] [address] PCP - General 03/31/10 documented as of this encounter
--- OUTSIDE RECORDS SUMMARY | 2024-04-02 14:03 | XMS_ITS | Encounter Summary ---
Author Organization [facility] [address] Care Team Providers Care Section Gang Name Role Phone Taylor Bryant APRN Primary Care Provider [phone] -[phone] Reason for Visit * Reason Onset Date Comments Other 12/23/2020 Encounter Details Date Type Department Care Team (Late st Contact Info) Description 12/23/2020 [place] [address] Yusuf Rivera RN Other Social [...] TH Visit (TeleHealth) [place] [address] Jean-Pierre Peña MD [facility] DR [place] [address] 04/13/2024 2:30 PM EST Infusion Hematology Oncology at [address] [phone] 04/30/2024 12:15 PM EST Laboratory Appointment Lab at [facility] Hematology [address] [address] 04/30/2024 1:15 PM EST Office Visit [place]ematology [place] [address] Jean-Pierre Peña MD [facility] DR [place] [address] Vicky Burnham APRN [facility] [place] [address] 04/30/2024 2:30 PM EST Appointment Hematology [place] [address] 05/22/2024 9:15 AM EST Laboratory Appointment Lab at [facility] Hematology [address] [address] 05/22/2024 10:[address] [place] [place] [address] Jean-Pierre Peña MD [facility] DR [place] [address] 05/22/2024 11:30 AM EST Office Visit Dermatology at [address] [place] [phone] Inderjit Vilchis MD [facility] DR GILBERTO [place] [address] 05/22/2024 2:00 PM EST Office Visit [place]ematology [place] [address] Jean-Pierre Peña MD [facility] DR [place] [address] 05/22/2024 3:30 PM EST Appointment Hematology [place] [address] 06/11/2024 4:15 PM EST TH Visit (TeleHealth) [place] [address] Jean-Pierre Peña MD [facility] DR [place] [address] 06/12/2024 8:30 AM EST Infusion Hematology Oncology at [address] [phone] documented as of this encounter Visit Diagnoses Not on filedocumented in this encounter Care Teams Section Gang Relationship Specialty Start Date End Date Taylor Bryant APRN [address] [place] [address] PCP - General 03/31/10 documented as of this encounter
--- OUTSIDE RECORDS SUMMARY | 2024-04-02 14:03 | XMS_ITS | Encounter Summary ---
Author Organization [facility] [place] [address] Care Team Providers Care Fbi Sharpshooter Name Role Phone Taylor Bryant ZARA Primary Care Provider +1 -[phone] Encounter Details Date Type Department Care Team (Late st Contact Info) Description 07/05/2023 Orders Only Hematology [place] [phone] Emily Yao ONLINE PROJECT MANAGER [facility] [place] [address] Social History Tobacco Use Types Packs/Day Years [...] TH Visit (TeleHealth) [place] [phone] Jean-Pierre Peña MD [facility] DR [place] [address] 04/13/2024 2:30 PM EST Infusion Hematology Oncology at [address] [address] 04/30/2024 12:15 PM EST Laboratory Appointment Lab at [facility] Hematology Oncology [address] [place] [phone] 04/30/2024 1:15 PM EST Office Visit [place]ematology [place] [phone] Jean-Pierre Peña MD [facility] DR [place] [address] Vicky Burnham APRN [facility] [place] [address] 04/30/2024 2:30 PM EST Appointment Hematology [place] [address] 05/22/2024 9:15 AM EST Laboratory Appointment Lab at [facility] Hematology Oncology [address] [place] [phone] 05/22/2024 10:[address] [place] [place] [phone] Jean-Pierre Peña MD [facility] DR [place] [address] 05/22/2024 11:30 AM EST Office Visit Dermatology at [address] [phone] Inderjit Vilchis MD [facility] DR GILBERTO [place] [address] 05/22/2024 2:00 PM EST Office Visit Hematology [place] [phone] Jean-Pierre Peña MD [facility] DR [place] [address] 05/22/2024 3:30 PM EST Appointment Hematology [place] [address] 06/11/2024 4:15 PM EST TH Visit (TeleHealth) [place] [address] Jean-Pierre Peña MD [facility] DR [place] [address] 06/12/2024 8:30 AM EST Infusion Hematology Oncology at [address] [address] documented as of this encounter Visit Diagnoses Not on filedocumented in this encounter Care Teams Fbi Sharpshooter Relationship Specialty Start Date End Date Taylor Bryant APRN [address] [place] [address] PCP - General 03/31/10 documented as of this encounter
--- OUTSIDE RECORDS SUMMARY | 2024-04-02 14:03 | XMS_ITS | Encounter Summary ---
Author Organization [facility] [place] [address] Care Team Providers Care Card Punching Machine Operator Name Role Phone Taylor Bryant APRN Primary Care Provider +1 -[phone] Encounter Details Date Type Department Care Team (Latest Contact Info) Description 07/14/2023 12:09 PM EST - 07/14/2023 11:59 PM EST [place] [address] Discharge Disposition: Home Social History [...] TH Visit (TeleHealth) Hematology [place] [address] Jean-Pierre Peña MD [facility] DR [place] [address] 04/13/2024 2:30 PM EST Infusion Hematology Oncology at [address] [address] 04/30/2024 12:15 PM EST Laboratory Appointment Lab at [facility] Hematology Oncology [address] [place] [phone] 04/30/2024 1:15 PM EST Office Visit Hematology [place] [address] Jean-Pierre Peña MD [facility] DR [place] [address] Vicky Burnham APRN [facility] [place] [address] 04/30/2024 2:30 PM EST Appointment Hematology [place] [address] 05/22/2024 9:15 AM EST Laboratory Appointment Lab at [facility] Hematology Oncology [address] [place] [phone] 05/22/2024 10:[address] [place] [place] [address] Jean-Pierre Peña MD [facility] DR [place] [address] 05/22/2024 11:30 AM EST Office Visit Dermatology at [facility] [address] [place] [phone] Indrejit Vilchis MD [facility] DR GILBERT[place] [address] 05/22/2024 2:00 PM EST Office Visit Hematology [place] [address] Jean-Pierre Peña MD [facility] DR [place] [address] 05/22/2024 3:30 PM EST Appointment Hematology [place] [phone] 06/11/2024 4:15 PM EST TH Visit (TeleHealth) Hematology [place] [phone] Jean-Pierre Peña MD [facility] DR [place] [address] 06/12/2024 8:30 AM EST Infusion Hematology Oncology at [address] [phone] documented as of this encounter Procedures Procedure Name Priority Date/Time Associated Diagnosis Comments SURGICAL PATHOLOGY REPORT Routine 07/14/2023 12:09 PM EST documented in this encounter Results * (ABNORMAL) Surgical Pathology Report (07/14/2023 12:09 PM EST) Final Diagnosis [id number] ? Location: [facility] The signing pathologist has (i) examined the relevant preparation(s) for the specimen(s) and (ii) rendered or confirmed the diagnosis(es). . ?Molecular Genetics RESULTS TARGETED BRAF AND NRAS VARIANT ANALYSIS INDICATION FOR STUDY: Invasive Melanoma SPECIMEN: Tissue case/block [id number] containing approximately 60% tumor cells in the [...] tissue section was introduced directly into the Glow NRAS-BRAF cartridge where DNA extraction, real time [...] Genomics and Advanced Technology (CGAT) Laboratory at [facility]. It has not been cleared or approved by the FDA. The laboratory is regulated under CLIA as qualified to perform high-complexity testing. This test is used for clinical purposes. It should not be regarded as investigational or for research. . RESULTS REFERENCES: Jason DB, et al. Clin Cancer Res 2014 ?;20:4946-1570 (PMID:04024801) Sae YOUNG, et al. Trends Cancer 2016 ? ;2:305-312 (PMID:50219846) Vj JL, et al. Agata Rev Clin Oncol 2017 ?;14:463-482 (PMID:54046426) _ Electronically signed by: ?Yasmany Galvin, Alvarado Zapata Verified: ??08/04/2023 6:50 ?? Director, Molecular Pathology Performed at: ??-[facility] Dept. of Pathology, [place] [address] Radio Electrician: Johnnie Stephens MD, FCAP, ??CLIA Certificate: [id number] ?Surgical Pathology DIAGNOSIS CONSULTATION CASE Outside slide(s) labeled [id number], collection date 06/21/2023. Right parietal scalp, skin punch biopsy: - Invasive melanoma, non-ulcerated, Breslow depth of 1.5 mm, present at the peripheral specimen edges (see synoptic report) Electronically signed by: ?Patrick ROBLES, PhD, Ladarius Sims Verified: ??07/15/2023 15:20 [address], Bone & Soft Tissue Pathologist Performed at: ??-[facility] Dept. of Pathology, [place] [address] Radio Electrician: Johnnie Stephens MD, FCAP, ??CLIA Certificate: [id number] SYNOPTIC Specimen ? Procedure: ??Biopsy, punch ? [...] Edition) ? pT Category: ??pT2a ? [facility] 2021 Q1 Release DISCUSSION I agree with the diagnosis rendered at the outside institution. THIS RESULT REQUIRES PHYSICIAN/A.P.P. FOLLOW UP SPECIMEN(S) SUBMITTED CONSULTATION CASE A - 1 slide(s) labeled [id number], collection date 06/21/2023. [id number] CARBON COPY: [facility] [address] [facility] [facility], [address] . SPECIMEN([place]) [place] [address] P: [phone] F: [phone] CLINICAL INFORMATION Lesion SPECIMEN PROCESSING [facility] pathology slide(s) are reviewed. Refer to Diagnosis and Specimen Submitted for specific case information. For the full text of the [facility] report(s) please refer to the Chart Review Media tab in the electronic health record (eDH).(A) 08/04/2023 6:[address] [facility] Consult Case 07/14/2023 12:0 9 PM EST 07/14/2023 12:09 PM EST Inderjit Vilchis MD PATHOLOGY/CYTOL OGY ORDERABLES [facility] [place] [address] documented in this encounter Visit Diagnoses Not on filedocumented in this encounter Care Teams Card Punching Machine Operator Relationship Specialty Start Date End Date Taylor Bryant APRN [address] [place] [address] PCP - General 03/31/10 documented as of this encounter
--- OUTSIDE RECORDS SUMMARY | 2024-04-02 14:03 | XMS_ITS | Encounter Summary ---
Author [facility] [place] [address] Care Team Providers Care Outside Energy Sales Representatives Name Role Phone Taylor Bryant ZARA Primary Care Provider +1 -[phone] Encounter Details Date Type Department Care Team (Latest Contact Info) Description 07/04/2023 4:00 PM EST TH Visit (TeleHealth) Dermatology at [facility] [address] [place] [address] Inderjit Argueta MD [facility] DR GILBERTO [place] [address] Malignant melanoma, unspecified site Social History Tobacco [...] history no Social History 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 -Reviewed path from [place] with patient today -Reviewed pathophysiology and goal of treatment -Joint decision to review at Melanoma tumor board then decide on treatment plan -Emphasized a step approach to treatment , Tumor Board input, ? Jose R adjuvant vs. Traditional. Other: N/A RTC: after presentation to the tumor board []Note routed to ward secretary []Recall placed in scheduling system []Appointment scheduled at checkout Scribe attestation: Josee Krishnamurthy LPN has performed the documentation for this encounter in the presence of and acting as a scribe for INDERJIT ARGUETA MD. I performed the above scribed service and agree with the accuracy of the documentation in this encounter. Reviewed and signed by: INDERJIT ARGUETA MD Dermatology [facility] documented in this encounter Plan of Treatment Upcoming Encounters Date Type Department Care Team (Late st Contact Info) Description 04/09/2024 4:15 PM EST TH Visit (TeleHealth) Hematology [place] [address] Jean-Pierre Peña MD [facility] DR [place] [address] 04/13/2024 2:30 PM EST Infusion Hematology Oncology at [address] [address] 04/30/2024 12:15 PM EST Laboratory Appointment Lab at [facility] Hematology Oncology [address] [place] [phone] 04/30/2024 1:15 PM EST Office Visit Hematology [place] [address] Jean-Pierre Peña MD [facility] DR H[place] [address] Vicky Burnham APRN [facility] [place] [address] 04/30/2024 2:30 PM EST Appointment Hematology [place] [address] 05/22/2024 9:15 AM EST Laboratory Appointment Lab at [facility] Hematology Oncology [address] [place] [phone] 05/22/2024 10:[address] [place] [address] Jean-Pierre Peña MD [facility] DR HEMAT[place] [address] 05/22/2024 11:30 AM EST Office Visit Dermatology at [facility] [address] [place] [address] Inderjit Argueta MD [facility] DR GILBERTO [place] [address] 05/22/2024 2:00 PM EST Office Visit Hematology [place] [address] Jean-Pierre Peña MD [facility] DR [place] [address] 05/22/2024 3:30 PM EST Appointment Hematology [place] [address] 06/11/2024 4:15 PM EST TH Visit (TeleHealth) Hematology [place] [address] Jean-Pierre Peña MD [facility] DR [place] [address] 06/12/2024 8:30 AM EST Infusion Hematology Oncology at [address] [phone] documented as of this encounter Visit Diagnoses Diagnosis Malignant melanoma, unspecified site documented in this encounter Care Teams Outside Energy Sales Representatives Relationship Specialty Start Date End Date Taylor Bryant APRN [address] [place] [address] PCP - General 03/31/10 documented as of this encounter
--- OUTSIDE RECORDS SUMMARY | 2024-04-02 14:04 | XMS_ITS | Encounter Summary ---
Author Organization [facility]ly [facility] Address [facility] [place] [address] Care Team Providers Care Adjunct Faculty Instructor Name Role Phone Taylor Bryant APRN Primary Care Provider +1 [phone] Reason for Visit * Reason Comments Left Knee Pain discuss XR/MRI Encounter Details Date Type Department Care Team (Late st Contact Info) Description 06/29/2016 11:00 AM EST Office [place] [address] Carlos Caceres MD [facility] [place] [address] Primary osteoarthritis of left knee; Psoriatic arthritis [...] TH Visit (TeleHealth) [place] [address] Jean-Pierre Peña MD [facility] DR [place] [address] 04/13/2024 2:30 PM EST Infusion Hematology Oncology at [address] [phone] 04/30/2024 12:15 PM EST Laboratory Appointment Lab at [facility] Hematology Oncology [address] [place] [phone] 04/30/2024 1:15 PM EST Office Visit [place]ology [place] [address] Jean-Pierre Peña MD [facility] DR [place] [address] Vicky Burnham APRN [facility] [place] [address] 04/30/2024 2:30 PM EST Appointment Hematology [place] [address] 05/22/2024 9:15 AM EST Laboratory Appointment Lab at [facility] Hematology [address] [phone] 05/22/2024 10:[address] [place] [place] [address] Jean-Pierre Peña MD [facility] DR [place] [address] 05/22/2024 11:30 AM EST Office Visit Dermatology at [address] [phone] Inderjit Vilchis MD [facility] DR GILBERTO [place] [address] 05/22/2024 2:00 PM EST Office Visit [place]ematology [place] [address] Jean-Pierre Peña MD [facility] DR [place] [address] 05/22/2024 3:30 PM EST Appointment Hematology [place] [address] 06/11/2024 4:15 PM EST TH Visit (TeleHealth) [place] [address] Jean-Pierre Peña MD [facility] DR HEMATOLOGY AND ONCOLOGY [place] [address] 06/12/2024 8:30 AM EST Infusion Hematology Oncology at [address] [phone] documented as of this encounter Visit Diagnoses [...] mg documented in this encounter Care Teams Adjunct Faculty Instructor Relationship Specialty Start Date End Date Taylor Bryant APRN [address] [place] [address] PCP - General 03/31/10 documented as of this encounter
--- OUTSIDE RECORDS SUMMARY | 2024-04-02 14:04 | XMS_ITS | Encounter Summary ---
Author Organization [facility] Address [facility] [place] [address] Care Team Providers Care Gateman Name Role Phone Taylor Bryant APRN Primary Care Provider +1 [phone] Encounter Details Date Type Department Care Team (Late st Contact Info) Description 06/28/2016 10:40 AM EST - 06/28/2016 11:09 AM EST Hospital Encounter XRay at [address] [place] [address] Carlos Caceres MD [facility] [place] [address] Psoriatic arthritis Discharge Disposition: Home Social History [...] TH Visit (TeleHealth) Hematology [place] [address] Jean-Pierre Peña MD [facility] [place] [address] 04/13/2024 2:30 PM EST Infusion Hematology Oncology at [address] [phone] 04/30/2024 12:15 PM EST Laboratory Appointment Lab at [facility] Hematology Oncology [address] [place] [phone] 04/30/2024 1:15 PM EST Office Visit Hematology and Oncology at [place] [phone] Jean-Pierre Peña MD [facility] DR [place] [address] Vicky Burnham APRN [facility] [place] [address] 04/30/2024 2:30 PM EST Appointment Hematology and Oncology at [place] [phone] 05/22/2024 9:15 AM EST Laboratory Appointment Lab at [facility] Hematology Oncology [address] [place] [phone] 05/22/2024 10:[address] [place] [place] [phone] Jean-Pierre Peña MD [facility] DR [place] [address] 05/22/2024 11:30 AM EST Office Visit Dermatology at [address] [address] Inderjit Vilchis MD [facility] DR GILBERTO [place] [address] 05/22/2024 2:00 PM EST Office Visit Hematology [place] [phone] Jean-Pierre Peña MD [facility] DR [place] [address] 05/22/2024 3:30 PM EST Appointment Hematology [place] [address] 06/11/2024 4:15 PM EST TH Visit (TeleHealth) [place]ematology [place] [address] Jean-Pierre Peña MD [facility] DR [place] [address] 06/12/2024 8:30 AM EST Infusion Hematology Oncology at [address] [phone] documented as of this encounter Procedures Procedure [...] arthropathy documented in this encounter Care Teams Gateman Relationship Specialty Start Date End Date Taylor Bryant APRN [address] [place] [address] PCP - General 03/31/10 documented as of this encounter
--- OUTSIDE RECORDS SUMMARY | 2024-04-02 14:04 | XMS_ITS | Encounter Summary ---
[place] [address] Care Team Providers Care Coordinator Of Evaluation Name Role Phone Taylor Bryant APRN Primary Care Provider [phone] [phone] Reason for Referral * Diagnostic Test (Routine) - Closed Specialty Diagnoses / Procedures Referred By Crista padron Referred To Contact Radiology Diagnoses Psoriatic arthritis Procedures MRI Knee wo Contrast Left (Generic) Jad Prajapati MD [facility] DR ORTHOPAEDIC [place] [address] [facility] [place] [address] Referral ID Status Reason Start Date Expiration Date V isits Requested Visits Authorized [id number] Closed Specialty Service Requested 06/09/2016 09/07/2016 1 1 Reason for Visit * Reason Comments Left Knee Pain s/p fal DOI: 6, hx of meniscal repair * Consultation (Routine) - Specialty Diagnoses / Procedures Referred By Crista padron Referred To Contact Orthopaedics Diagnoses Left knee pain Taylor Bryant APRN [address] [place] [address] [facility] Orthopaedics [address] [place] [phone] Referral ID Status Reason Start Date Expiration Date V isits Requested Visits Authorized [id number] Consult, Test & Treat Connection Center 04/28/2016 04/28/2017 1 1 Encounter Details Date Type Department Care Team (Late st Contact Info) Description 06/09/2016 2:00 PM EST Office Visit Orthopaedics at [facility] [place] [address] Carlos Caceres MD [facility] DR ORTHOPAEDIC [place] [address] Psoriatic arthritis Social History Tobacco Use Types [...] meniscectomy on this left side down at [facility] by the [facility]. She fell in April; it has gotten worse since then, and was on a period of time where it was difficult to stand and walk; however, that has kind of somewhat resolved. She does note a history of psoriatic arthritis for which sees a power tong operator, currently only taking diclofenac. Activities are causing [...] less than $15,000 # People Supported 1 Icelandic, , No, not Icelandic// Race [employer] Quite a bit [...] takes oral diclofenac. She does see a power tong operator in [facility] was considering starting Enbrel injections. She [...] can get some more time with her cowlitz joints prior to replacement if this is the way she is going. Carlos Caceres MD 06/09/2016 documented in this encounter Plan of Treatment Upcoming Encounters Date Type Department Care Team (Late st Contact Info) Description 04/09/2024 4:15 PM EST TH Visit (TeleHealth) Hematology [place] [address] Jean-Pierre Peña MD [facility] DR HEMATOLOGY [place] [address] 04/13/2024 2:30 PM EST Infusion Hematology Oncology at [address] [address] 04/30/2024 12:15 PM EST Laboratory Appointment Lab at [facility] Hematology Oncology [address] [place] [phone] 04/30/2024 1:15 PM EST Office Visit Hematology [place] [address] Jean-Pierre Peña MD [facility] DR HEMATOLOGY [place] [address] Vicky Burnham APRN [facility] DR [place] [address] 04/30/2024 2:30 PM EST Appointment Hematology [place] [address] 05/22/2024 9:15 AM EST Laboratory Appointment Lab at [facility] Hematology Oncology [address] [place] [phone] 05/22/2024 10:[address] [place] [place] [phone] Jean-Pierre Peña MD [facility] DR HEMATOLOGY [place] [address] 05/22/2024 11:30 AM EST Office Visit Dermatology at [address] [phone] Inderjit Vilchis MD [facility] [address] 05/22/2024 2:00 PM EST Office Visit Hematology [place] [address] Jean-Pierre Peña MD [facility] DR HEMATOLOGY [place] [address] 05/22/2024 3:30 PM EST Appointment Hematology [place] [address] 06/11/2024 4:15 PM EST TH Visit (TeleHealth) Hematology [place] [address] Jean-Pierre Peña MD [facility] DR HEMATOLOGY [place] [address] 06/12/2024 8:30 AM EST Infusion Hematology Oncology at [address] [phone] documented as of this encounter Results * [...] No bony erosion seen. Carlos Caceres MD IM MRI ORDERABLES documented in this encounter Visit Diagnoses Diagnosis Psoriatic arthritis Psoriatic arthropathy Psoriatic arthritis Psoriatic arthropathy documented in this encounter Care Teams Coordinator Of Evaluation Relationship Specialty Start Date End Date Taylor Bryant APRN [address] [place] [address] PCP - General 03/31/10 documented as of this encounter
--- OUTSIDE RECORDS SUMMARY | 2024-04-02 14:04 | XMS_ITS | Encounter Summary ---
Author Organization [facility] Address [facility] [place] [address] Care Team Providers Care Golf Technician Name Role Phone Taylor Bryant APRN Primary Care Provider [phone] [phone] Encounter Details Date Type Department Care Team (Late Contact Info) Description 06/09/2016 Orders Only [place] [phone] Carlos Caceres MD [facility] [place] [address] Social History Tobacco Use Types Packs/Day Years [...] TH Visit (TeleHealth) Hematology [place] [address] Jean-Pierre Peña MD [facility] DR [place] [address] 04/13/2024 2:30 PM EST Infusion Hematology Oncology at [address] [phone] 04/30/2024 12:15 PM EST Laboratory Appointment Lab at [facility] [place]ematology Oncology [address] [place] [phone] 04/30/2024 1:15 PM EST Office Visit Hematology and Oncology at [place] [phone] Jean-Pierre Peña MD [facility] DR HEMATOLOGY [place] [address] Vicky Burnham APRN [facility] [place] [address] 04/30/2024 2:30 PM EST Appointment Hematology and Oncology at [place] [phone] 05/22/2024 9:15 AM EST Laboratory Appointment Lab at [facility] Hematology [address] [phone] 05/22/2024 10:[address] Scan at [place] [phone] Jean-Pierre Peña MD [facility] [place] [address] 05/22/2024 11:30 AM EST Office Visit Dermatology at [address] [address] Inderjit Vilchis MD [facility] DR GILBERTO [place] [address] 05/22/2024 2:00 PM EST Office Visit Hematology [place] [address] Jean-Pierre Peña MD [facility] [place] [address] 05/22/2024 3:30 PM EST Appointment Hematology [place] [address] 06/11/2024 4:15 PM EST TH Visit (TeleHealth) Hematology [place] [address] Jean-Pierre Peña MD [facility] DR [place] [address] 06/12/2024 8:30 AM EST Infusion Hematology Oncology at [address] [phone] documented as of this encounter Visit Diagnoses Not on filedocumented in this encounter Care Teams Golf Technician Relationship Specialty Start Date End Date Taylor Bryant APRN [address] [place] [address] PCP - General 03/31/10 documented as of this encounter
--- OUTSIDE RECORDS SUMMARY | 2024-04-02 14:04 | XMS_ITS | Encounter Summary ---
Author Organization [facility] [place] [address] Care Team Providers Care Mechatronics Technician Name Role Phone Taylor Bryant APRN Primary Care Provider [phone] [phone] Encounter Details Date Type Department Care Team (Late st Contact Info) Description 08/01/2003 Orders Only Lab [facility] [place] [address] Fernie Jacobson MD GYNECOLOGY ONCOLOGY Social History Tobacco Use Types Packs/Day Years Used Date Smoking Tobacco: Never Assessed [facility] Utilities Answer Date Recorded [...] TH Visit (TeleHealth) [place] [address] Jean-Pierre Peña MD [facility] DR HEMATOLOGY [place] [address] 04/13/2024 2:30 PM EST Infusion Hematology Oncology at [address] [address] 04/30/2024 12:15 PM EST Laboratory Appointment Lab at [facility] [place]ematology Oncology [address] [place] [phone] 04/30/2024 1:15 PM EST Office Visit [place]ematology [place] [address] Jean-Pierre Peña MD [facility] HEMATOLOGY [place] [address] Vicky Burnham APRN [facility] [place] [address] 04/30/2024 2:30 PM EST Appointment Hematology [place] [address] 05/22/2024 9:15 AM EST Laboratory Appointment Lab at [facility] Hematology Oncology [address] [place] [phone] 05/22/2024 10:[address] [place] [place] [phone] Jean-Pierre Peña MD [facility] DR HEMATOLOGY [place] [address] 05/22/2024 11:30 AM EST Office Visit Dermatology at [address] [address] Inderjit Vilchis MD [facility] DR GILBERTO [place] [address] 05/22/2024 2:00 PM EST Office Visit [place]ematology [place] [phone] Jean-Pierre Peña MD [facility] HEMATOLOGY [place] [address] 05/22/2024 3:30 PM EST Appointment [place]ematology [place] [address] 06/11/2024 4:15 PM EST TH Visit (TeleHealth) [place] [address] Jean-Pierre Peña MD [facility] HEMATOLOGY [place] [address] 06/12/2024 8:30 AM EST Infusion Hematology Oncology at [address] [phone] documented as of this encounter Procedures Procedure Name Priority Date/Time Associated Diagnosis Comments SURGICAL PATHOLOGY REPORT Routine 08/01/2003 1:58 PM EST documented in this encounter Results * Surgical Pathology Report (08/01/2003 1:58 PM EST) Pathologist [facility] Surgical Pathology Report [id number] ? Location: 3WST; 0310; B The signing [...] the vaginal resection margins. Sections/Processi ng: ? Show Host sections are submitted as follows: ?(1-2) posterior [...] longitudinally from left to right; (34) ? retail representative endometrium. ??([id number]) ??aje/SDD Microscopic Description Slides [...] on filedocumented in this encounter Care Teams Mechatronics Technician Relationship Specialty Start Date End Date Taylor Bryant APRN [address] [place] [address] PCP - General 03/31/10 documented as of this encounter
--- OUTSIDE RECORDS SUMMARY | 2024-04-02 14:04 | XMS_ITS | Encounter Summary ---
Author Organization [facility] [place] [address] Care Team Providers Care High School Music Director Name Role Phone AnnetteTaylor ZARA Primary Care Provider [phone] [phone] Reason for Referral * Diagnostic Test (Routine) - Closed Specialty Diagnoses / Procedures Referred By Contac t Referred To Contact Radiology Diagnoses Psoriatic arthritis Procedures MRI Knee wo Contrast Left (Generic) Jad Prajapati MD [facility] DR [place] [address] [place] [address] Referral ID Status Reason Start Date Expiration Date V isits Requested Visits Authorized [id number] Closed Specialty Service Requested 06/09/2016 09/07/2016 1 1 Reason for Visit * Diagnostic Test (Routine) - Closed Specialty Diagnoses / Procedures Referred By Contac t Referred To Contact Radiology Diagnoses Psoriatic arthritis Procedures MRI Knee wo Contrast Left (Generic) Jad Prajapati MD [facility] DR [place] [address] [place] [address] Referral ID Status Reason Start Date Expiration Date V isits Requested Visits Authorized [id number] Closed Specialty Service Requested 06/09/2016 09/07/2016 1 1 Encounter Details Date Type Department Care Team (Late st Contact Info) Description 06/28/2016 11:10 AM EST - 06/28/2016 11:59 PM EST Hospital Encounter MRI at [place] [address] Carlos Caceres MD [facility] [place] [address] Psoriatic arthritis Discharge Disposition: Home Social History [...] TH Visit (TeleHealth) Hematology and Oncology at [place] [phone] Jean-Pierre Peña MD [facility] DR [place] [address] 04/13/2024 2:30 PM EST Infusion Hematology Oncology at [address] [address] 04/30/2024 12:15 PM EST Laboratory Appointment Lab [place] [facility] [place] Oncology [address] [place], [place] [phone] 04/30/2024 1:15 PM EST Office Visit Hematology and Oncology at [place] [phone] Jean-Pierre Peña MD [facility] [place] [address] Vicky Burnham APRN [facility] [place] [address] 04/30/2024 2:30 PM EST Appointment Hematology [place] [address] 05/22/2024 9:15 AM EST Laboratory Appointment Lab at [facility] [place]ology Oncology [address] [place] [phone] 05/22/2024 10:[address] [place] [address] Jean-Pierre Peña MD [facility] [place] [address] 05/22/2024 11:30 AM EST Office Visit Dermatology at [address] [phone] Inderjit Vilchis MD [facility] [place] [address] 05/22/2024 2:00 PM EST Office Visit Hematology [place] [phone] Jean-Pierre Peña MD [facility] [place] [address] 05/22/2024 3:30 PM EST Appointment Hematology [place] [phone] 06/11/2024 4:15 PM EST TH Visit (TeleHealth) Hematology [place] [address] Jean-Pierre Peña MD [facility] [place] [address] 06/12/2024 8:30 AM EST Infusion Hematology Oncology at [address] [address] documented as of this encounter Procedures Procedure [...] arthropathy documented in this encounter Care Teams High School Music Director Relationship Specialty Start Date End Date Taylor Bryant APRN [address] [place] [address] PCP - General 03/31/10 documented as of this encounter
--- OUTSIDE RECORDS SUMMARY | 2024-04-02 14:04 | XMS_ITS | Encounter Summary ---
Author Organization [facility] Address [facility] [place] [address] Care Team Providers Care Salt Washer Harvesting Station Name Role Phone Taylor Bryant APRN Primary Care Provider [phone] [phone] Reason for Visit * Reason Comments Follow-up bilat knee pain - fe ll on right knee, feels like she tore her meniscus again * Consultation (Routine) - Closed Specialty Diagnoses / Procedures Referred By Contjono t Referred To Contact Orthopaedics Diagnoses right knee Kyle Palumbo MD [facility] [address] [place] [address] [place]DR[place] V[place]ES [address] Carlos Caceres MD [facility] OR[place] [address] Referral ID Status Reason Start Date Expiration Date V isits Requested Visits Authorized [id number] Closed Consult, Test & Treat Connection Center 10/20/2017 10/20/2018 1 1 Encounter Details Date Type Department Care Team (Late st Contact Info) Description 10/26/2017 1:00 PM EDT Office [place] [address] Carlos Caceres MD [facility] [place] [address] Primary osteoarthritis of right knee (Primary Dx); [...] TH Visit (TeleHealth) [place]ematology [place] [address] Jean-Pierre Peña MD [facility] DR HEMATOLOGY [place] [address] 04/13/2024 2:30 PM EST Infusion Hematology Oncology at [address] [address] 04/30/2024 12:15 PM EST Laboratory Appointment Lab at [facility] [place] Oncology [address] [place] [phone] 04/30/2024 1:15 PM EST Office Visit Hematology [place] [address] Jean-Pierre Peña MD [facility] DR HEMATOLOGY [place] [address] Vicky Burnham APRN [facility] [place] [address] 04/30/2024 2:30 PM EST Appointment Hematology [place] [address] 05/22/2024 9:15 AM EST Laboratory Appointment Lab at [facility] Hematology Oncology [address] [place] [phone] 05/22/2024 10:[address] [place] [place] [phone] Jean-Pierre Peña MD [facility] DR HEMATOLOGY [place] [address] 05/22/2024 11:30 AM EST Office Visit Dermatology at [address] [place] [phone] Inderjit Vilchis MD [facility] [address] 05/22/2024 2:00 PM EST Office Visit Hematology [place] [address] Jean-Pierre Peña MD [facility] HEMATOLOGY [place] [address] 05/22/2024 3:30 PM EST Appointment Hematology [place] [address] 06/11/2024 4:15 PM EST TH Visit (TeleHealth) [place]ematology [place] [address] Jean-Pierre Peña MD [facility] HEMATOLOGY [place] [address] 06/12/2024 8:30 AM EST Infusion Hematology Oncology at [address] [phone] documented as of this encounter Visit Diagnoses [...] mg documented in this encounter Care Teams Salt Washer Harvesting Station Relationship Specialty Start Date End Date Taylro Bryant APRN [address] [place] [address] PCP - General 03/31/10 documented as of this encounter
--- OUTSIDE RECORDS SUMMARY | 2024-04-02 14:04 | XMS_ITS | Encounter Summary ---
Author Organization [facility] [place] [address] Care Team Providers Care Furnace Operator Oil Or Gas Name Role Phone Taylor Bryant APRN Primary Care Provider [phone] Encounter Details Date Type Department Care Team (Late st Contact Info) Description 05/17/2003 Orders Only Lab [facility] [place] [address] Fernie Jacobson MD GYNECOLOGY ONCOLOGY Social History Tobacco Use Types Packs/Day Years Used Date Smoking Tobacco: Never Assessed [facility] Utilities Answer Date Recorded In the [...] TH Visit (TeleHealth) [place] [address] Jean-Pierre Peña MD [facility] DR [place] [address] 04/13/2024 2:30 PM EST Infusion Hematology Oncology at [address] [phone] 04/30/2024 12:15 PM EST Laboratory Appointment Lab at [facility] Hematology Oncology [address] [place] [phone] 04/30/2024 1:15 PM EST Office Visit [place] [address] Jean-Pierre Peña MD [facility] [place] [address] Vicky Burnham APRN [facility] [place] [address] 04/30/2024 2:30 PM EST Appointment [place]ology [place] [address] 05/22/2024 9:15 AM EST Laboratory Appointment Lab at [facility] Hematology Oncology [address] [place] [phone] 05/22/2024 10:[address] [place] [place] [phone] Jean-Pierre Peña MD [facility] DR [place] [address] 05/22/2024 11:30 AM EST Office Visit Dermatology at [address] [address] Inderjit Vilchis MD [facility] DR GIL[facility]ERT[facility] [place] [address] 05/22/2024 2:00 PM EST Office Visit [place]ology [place] [phone] Jean-Pierre Peña MD [facility] [place] [address] 05/22/2024 3:30 PM EST Appointment [place] [address] 06/11/2024 4:15 PM EST TH Visit (TeleHealth) [place] [address] Jean-Pierre Peña MD [facility] [place] [address] 06/12/2024 8:30 AM EST Infusion Hematology Oncology at [address] [address] documented as of this encounter Procedures Procedure Name Priority Date/Time Associated Diagnosis Comments SURGICAL PATHOLOGY REPORT Routine 05/17/2003 12:43 PM EST documented in this encounter Results * Surgical Pathology Report (05/17/2003 12:43 PM EST) Pathologist [facility] Surgical Pathology Report [id number] ? Location: The signing pathologist has (i) [...] the endo and ectocervical specimen resection margins. CERNER MILLENNIUM 05/17/2003 12:4 3 PM EST Fernie Jacobson MD PATHOLOGY/CYTOLOGY ORDERABLES [facility] documented in this encounter Visit Diagnoses Not on filedocumented in this encounter Care Teams Furnace Operator Oil Or [employer] Relationship Specialty Start Date End Date Taylor Bryant APRN [address] [place] [address] PCP - General 03/31/10 documented as of this encounter
--- OUTSIDE RECORDS SUMMARY | 2024-04-02 14:04 | XMS_ITS | Encounter Summary ---
Author Organization [facility] [place] [address] Care Team Providers Care Massotherapist Name Role Phone Taylor Bryant APRN Primary Care Provider [phone] Encounter Details Date Type Department Care Team (Late Contact Info) Description 10/26/2017 11:45 AM EDT - 10/26/2017 11:59 PM EDT Hospital Encounter XRay at [address] [place] [address] Carlos Caceres MD [facility] [place] [address] Pain in both knees, unspecified chronicity Discharge [...] TH Visit (TeleHealth) [place]ology [place] [address] Jean-Pierre Peña MD [facility] DR HEMATOLOGY [place] [address] 04/13/2024 2:30 PM EST Infusion Hematology Oncology at [address] [phone] 04/30/2024 12:15 PM EST Laboratory Appointment Lab at [facility] Hematology Oncology [address] [place] [phone] 04/30/2024 1:15 PM EST Office Visit Hematology [place] [address] Jean-Pierre Peña MD [facility] DR HEMATOLOGY [place] [address] Vicky Burnham APRN [facility] [place] [address] 04/30/2024 2:30 PM EST Appointment Hematology [place] [address] 05/22/2024 9:15 AM EST Laboratory Appointment Lab at [facility] Hematology Oncology [address] [place] [phone] 05/22/2024 10:[address] [place] [address] Jean-Pierre Peña MD [facility] DR HEMATOLOGY [place] [address] 05/22/2024 11:30 AM EST Office Visit Dermatology at [place] [address] [place] [address] Inderjit Vilchis MD [facility] DR GILBERTO [place] [address] 05/22/2024 2:00 PM EST Office Visit Hematology [place] [address] Jean-Pierre Peña MD [facility] DR [place]EMATOLOGY [place] [address] 05/22/2024 3:30 PM EST Appointment Hematology [place] [address] 06/11/2024 4:15 PM EST TH Visit (TeleHealth) [place]ematology [place] [address] Jean-Pierre Peña MD [facility] DR HEMATOLOGY [place] [address] 06/12/2024 8:30 AM EST Infusion Hematology Oncology at [address] [phone] documented as of this encounter Procedures Procedure Name Priority Date/Time Associated Diagnosis Comments XR KNEE STANDING ALIGNMENT AP LAT [place] SKYLINE BILAT Routine 10/26/2017 12:14 PM EDT Pain in both knees, unspecified chronicity documented in this encounter Results * XR Knee Standing Alignment AP Lat [place] Keshena Bilat (10/26/2017 12:14 PM EDT) Anatomical Region [...] chronicity documented in this encounter Care Teams Massotherapist Relationship Specialty Start Date End Date Taylor Bryant APRN [address] [place] [address] PCP - General 03/31/10 documented as of this encounter
--- OUTSIDE RECORDS SUMMARY | 2024-04-02 14:04 | XMS_ITS | Encounter Summary ---
Author Organization [facility] [place] [address] Care Team Providers Care Lead Business Analyst Name Role Phone Taylor Bryant APRN Primary Care Provider [phone] Encounter Details Date Type Department Care Team (Late Contact Info) Description 10/28/2015 - 10/28/2015 11:59 PM EDT Hospital Encounter Radiology Library at [facility] [place] [address] Carlos Caceres MD [facility] [place] [address] Pain Discharge Disposition: Home Social History Tobacco [...] TH Visit (TeleHealth) [place]ematology [place] [phone] Jean-Pierre Peña MD [facility] [place] [address] 04/13/2024 2:30 PM EST Infusion Hematology Oncology at [address] [address] 04/30/2024 12:15 PM EST Laboratory Appointment Lab at [facility] Hematology Oncology [address] [place] [phone] 04/30/2024 1:15 PM EST Office Visit Hematology and Oncology at [place] [phone] Jean-Pierre Peña MD [facility] DR [place] [address] Vicky Burnham APRN [facility] [place] [address] 04/30/2024 2:30 PM EST Appointment Hematology [place] [address] 05/22/2024 9:15 AM EST Laboratory Appointment Lab at [facility] Hematology Oncology [address] [place] [phone] 05/22/2024 10:[address] [place] [place] [phone] Jean-Pierre Peña MD [facility] DR [place] [address] 05/22/2024 11:30 AM EST Office Visit Dermatology at [address] [address] Inderjit Vilchis MD [facility] DR GILBERT[place] [address] 05/22/2024 2:00 PM EST Office Visit Hematology [place] [address] Jean-Pierre Peña MD [facility] DR [place] [address] 05/22/2024 3:30 PM EST Appointment Hematology [place] [address] 06/11/2024 4:15 PM EST TH Visit (TeleHealth) [place]ematology [place] [address] Jean-Pierre Peña MD [facility] DR [place] [address] 06/12/2024 8:30 AM EST Infusion Hematology Oncology at [address] [phone] documented as of this encounter Procedures Procedure Name Priority Date/Time Associated Diagnosis Comments FILM LIBRARY STORAGE ONLY DX KNEE Routine 10/28/2015 12:00 AM EDT Pain documented in this encounter Results * Film Library- Storage Only DX Knee (10/28/2015 12:00 AM EDT) Narrative [facility] - 06/09/2016 2:51 PM EST This exam is for storage only and is auto-finalizing. Carlos Caceres MD IMG FILM LIBRARY ORD ERABLES [place], [place] documented in this encounter Visit Diagnoses Diagnosis Pain Generalized pain documented in this encounter Care Teams Lead Business Analyst Relationship Specialty Start Date End Date Taylor Bryant APRN [address] [place] [id number] PCP - General 03/31/10 documented as of this encounter
--- OUTSIDE RECORDS SUMMARY | 2024-04-02 14:04 | XMS_ITS | Encounter Summary ---
Author Organization [facility] Address [facility] [place] [address] Care Team Providers Care Payroll Master Name Role Phone Taylor Bryant APRN Primary Care Provider [phone] Encounter Details Date Type Department Care Team (Late Contact Info) Description 04/20/2016 - 04/20/2016 11:59 PM EST Hospital Encounter Radiology Library at [facility] [place] [address] Carlos Caceres MD [facility] [place] [address] Pain Discharge Disposition: Home Social History Tobacco [...] TH Visit (TeleHealth) Hematology [place] [phone] Jean-Pierre Peña MD [facility] HEMATOLOGY [place] [address] 04/13/2024 2:30 PM EST Infusion Hematology Oncology at [address] [phone] 04/30/2024 12:15 PM EST Laboratory Appointment Lab at [facility] Hematology Oncology [address] [place] [phone] 04/30/2024 1:15 PM EST Office Visit Hematology and Oncology at [place] [phone] Jean-Pierre Peña MD [facility] DR HEMATOLOGY [place] [address] Vicky Burnham APRN [facility] [place] [address] 04/30/2024 2:30 PM EST Appointment Hematology [place] [address] 05/22/2024 9:15 AM EST Laboratory Appointment Lab at [facility] Hematology Oncology [address] [place] [phone] 05/22/2024 10:[address] [place] [phone] Jean-Pierre Peña MD [facility] DR HEMATOLOGY [place] [address] 05/22/2024 11:30 AM EST Office Visit Dermatology at [address] [phone] Inderjit Vilchis MD [facility] DR GILBERTO [place] [address] 05/22/2024 2:00 PM EST Office Visit Hematology [place] [address] Jean-Pierre Peña MD [facility] DR HEMATOLOGY [place] [address] 05/22/2024 3:30 PM EST Appointment Hematology [place] [address] 06/11/2024 4:15 PM EST TH Visit (TeleHealth) Hematology [place] [address] Jean-Pierre Peña MD [facility] DR HEMATOLOGY [place] [address] 06/12/2024 8:30 AM EST Infusion Hematology Oncology at [address] [phone] documented as of this encounter Procedures Procedure Name Priority Date/Time Associated Diagnosis Comments FILM LIBRARY STORAGE ONLY DX KNEE Routine 04/20/2016 12:00 AM EST Pain documented in this encounter Results * Film Library- Storage Only DX Knee (04/20/2016 12:00 AM EST) Narrative [facility] - 06/09/2016 3:06 PM EST This exam is for storage only and is auto-finalizing. Carlos Caceres MD IMG FILM LIBRARY ORD ERABLES [place], [place] documented in this encounter Visit Diagnoses Diagnosis Pain Generalized pain documented in this encounter Care Teams Payroll Master Relationship Specialty Start Date End Date Taylor Bryant APRN [address] [place] [address] PCP - General 03/31/10 documented as of this encounter
[2024-04-02 15:05] LABS: ALT 24 U/L (14-59); AST 16 U/L (15-37); Albumin 3.7 g/dL (3.4-5.0); Alkaline Phosphatase 62 U/L (46-116); Anion Gap 9.7 mmol/L (3-11); BUN 27 mg/dL (7-18); Bilirubin, Total 0.71 mg/dL (0.2-1.0); CO2 24.3 mmol/L (21.0-32.0); Calcium 9.2 mg/dL (8.5-10.1); Chloride 104 mmol/L (98-107); FREE T4 0.93 ng/dL (0.76-1.46); Glucose 115 mg/dL (74-106); LDH 198 U/L (81-234); Sodium 138 mmol/L (136-145); TSH 1.43 uIU/mL (0.36-3.74); Total Protein 7.1 g/dL (6.4-8.2)
== END 2024-04-02 13:56 | disposition home or self-care (01) ==
PROVIDERS: PCP Nurse Practitioner
DX: Z79.899 Other long term (current) drug therapy (principal); C43.4 Malignant melanoma of scalp and neck
CPT/HCPCS: 36415; 80053; 83615; 84439; 84443; 85025

== ENCOUNTER 2024-06-11 01:17 | Outpatient (CLI) | payer MEDICARE, SELFPAY ==
[2024-06-11 09:44] LABS: Abs Immature Grans 0.04 10^3/uL (0.0-0.06); Absolute Basophil Count 0.06 10^3/uL (0.0-0.2); Absolute Eosinophil Count 0.14 10^3/uL (0.0-0.7); Basophils % 0.5 %; Eosinophils % 1.1 %; HCT 39.5 % (36.0-46.0); HGB 13.1 g/dL (11.2-15.7); Immature Grans % 0.3 %; Lymphocytes % 12.2 %; MCH 31.6 pg (27.0-33.0); MCHC 33.2 % (32.0-36.0); MCV 95 fL (80-95); MPV 9.9 fL (8.0-11.0); Monocytes % 9.4 %; Neutrophils % 76.5 %; Platelet Count 316 10^3/uL (130-400); RBC 4.15 10^6/uL (3.93-5.22); RDW 13.8 % (11.7-14.6); RDW-SD 48.1 fL; WBC 12.92 10^3/uL (4.4-10.8)
[2024-06-11 09:45] LABS: Absolute Lymphocyte Count 1.58 10^3/uL (1.2-3.4); Absolute Monocyte Count 1.21 10^3/uL (0.1-0.8); Absolute Neutrophil Count 9.88 10^3/uL (1.2-6.7)
[2024-06-11 10:14] LABS: ALT 58 U/L (14-59); AST 33 U/L (15-37); Albumin 3.5 g/dL (3.4-5.0); Alkaline Phosphatase 74 U/L (46-116); Anion Gap 3.6 mmol/L (3-11); BUN 20 mg/dL (7-18); CO2 32.4 mmol/L (21.0-32.0); CREATININE 1.2 mg/dL (0.55-1.02); Calcium 9.1 mg/dL (8.5-10.1); Chloride 106 mmol/L (98-107); Estimated GFR 52.14 (mL/min/1.73m2); FREE T4 1.04 ng/dL (0.76-1.46); Glucose 97 mg/dL (74-106); LDH 176 U/L (81-234); Potassium 4.6 mmol/L (3.5-5.1); Sodium 142 mmol/L (136-145); Total Protein 6.9 g/dL (6.4-8.2)
== END 2024-06-11 01:18 | disposition home or self-care (01) ==
PROVIDERS: PCP Nurse Practitioner; Visit Provider Internal Medicine Hospice and Palliative Medicine
DX: Z79.899 Other long term (current) drug therapy (principal); C43.4 Malignant melanoma of scalp and neck
CPT/HCPCS: 36415; 80053; 83615; 84439; 84443; 85025

== ENCOUNTER 2024-06-21 11:43 | Outpatient (CLI) | payer MEDICARE, SELFPAY ==
[2024-06-21] MEDS: Normal Saline - Diluent 50 ML VIAL IJ (13:55)
[2024-06-21] MEDS: Omnipaque 350 MG/ML 100 ML BTL IJ (13:56)
--- NOTE | 2024-06-21 14:01 | DI.CT_ITS ---
Exam(s) CT CHEST PE CTA EXAM: CT CHEST PE CTA CLINICAL HISTORY: R91.1,C43.4,C77.9 Cough,chest discomfort also r/o PE and Pneumonitis, Lung. TECHNIQUE: Imaging Protocol: CT angiography of the chest was performed using pulmonary embolus elicia col. Multi planar reconstructions were performed. CONTRAST MATERIAL: Intravenous: Omnipaque 350 Contrast volume: 100 cc COMPARISON: CT CT CHEST ABDOMEN PELVIS W CONTRAST (GENERIC) from 05/22/2024 FINDINGS: CHEST: PULMONARY ARTERIES: There are no intraluminal filling defects to suggest acute pulmonary emboli. LUNGS: No evidence of pulmonary infarction nor pleural effusions.. However, there are multiple noncalcified small sub cm nodules again noted throughout both lung schaeffer , involving all lobes, similar to the previous outside CT scan of 05/22/2024, with average size of 3- 4 mm. MEDIASTINUM: There is no hilar adenopathy nor adenopathy in the anterior mediastinal fat. A few slig htly prominent subcarinal lymph nodes are noted. Partially visualized thyroid appears unremarkable. CARDIAC: Heart size is upper normal. There is no pericardial effusion.Caliber of the thoracic aorta is within normal limits. No evidence of aortic dissection. There is no significant shift of the inte rventricular septum. PARTIALLY VISUALIZED UPPERMOST ABDOMEN: No adrenal masses. No splenomegaly. Gallbladder surgically absent. OSSEOUS: No significant osseous lesions.. IMPRESSION: 1. No evidence of acute pulmonary emboli. No evidence of pulmonary infarction.No pleural effusions. 2. 3. RADIATION DOSE DELIVERED: 93.75mGy.cm Total DLP DATA REPOSITORY: All CT scans at this facility are submitted to the National Radiology Data Registry (NRDR) Dose Index Registry (DIR) with the [employer] (ACR). RADIATION OPTIMIZATION: All CT scans at this facility use at least one of these dose optimization te chniques: automated exposure control; mA and/or kV adjustment per patient size (includes targeted exa ms where dose is matched to clinical indication); or iterative reconstruction.
[2024-06-21 18:14] LABS: ALT 289 U/L (14-59); AST 123 U/L (15-37); Albumin 3.3 g/dL (3.4-5.0); Alkaline Phosphatase 111 U/L (46-116); Anion Gap 4.4 mmol/L (3-11); BUN 15 mg/dL (7-18); Bilirubin, Total 0.47 mg/dL (0.2-1.0); C-Reactive Protein 6.22 mg/dL (<or=0.5); CO2 28.6 mmol/L (21.0-32.0); CREATININE 1.2 mg/dL (0.55-1.02); Calcium 8.9 mg/dL (8.5-10.1); Chloride 107 mmol/L (98-107); Estimated GFR 52.14 (mL/min/1.73m2); Glucose 114 mg/dL (74-106); LDH 313 U/L (81-234); Potassium 4.4 mmol/L (3.5-5.1); Sodium 140 mmol/L (136-145); Total Protein 6.7 g/dL (6.4-8.2)
[2024-06-21 18:17] LABS: Abs Immature Grans 0.02 10^3/uL (0.0-0.06); Absolute Basophil Count 0.05 10^3/uL (0.0-0.2); Absolute Eosinophil Count 0.02 10^3/uL (0.0-0.7); Absolute Lymphocyte Count 0.26 10^3/uL (1.2-3.4); Absolute Monocyte Count 0.49 10^3/uL (0.1-0.8); Basophils % 0.8 %; Eosinophils % 0.3 %; HCT 36.1 % (36.0-46.0); HGB 11.8 g/dL (11.2-15.7); Immature Grans % 0.3 %; Lymphocytes % 4.1 %; MCH 31.3 pg (27.0-33.0); MCHC 32.7 % (32.0-36.0); MCV 96 fL (80-95); MPV 11.2 fL (8.0-11.0); Monocytes % 7.7 %; Neutrophils % 86.8 %; Platelet Count 252 10^3/uL (130-400); RBC 3.77 10^6/uL (3.93-5.22); RDW 14.1 % (11.7-14.6); RDW-SD 49.3 fL; WBC 6.34 10^3/uL (4.4-10.8)
== END 2024-06-21 12:03 ==
LOC: DI 11:43
PROVIDERS: PCP Nurse Practitioner; Visit Provider Internal Medicine Hospice and Palliative Medicine
DX: C43.4 Malignant melanoma of scalp and neck (principal); R91.1 Solitary pulmonary nodule
CPT/HCPCS: 71275; 80053; 82533; 83615; 85025; 86140; J3490

== ENCOUNTER 2024-06-26 16:55 | Outpatient (CLI) | payer MEDICARE, SELFPAY ==
[2024-06-26 16:36] LABS: Abs Immature Grans 0.03 10^3/uL (0.0-0.06); Absolute Basophil Count 0.02 10^3/uL (0.0-0.2); Absolute Eosinophil Count 0.09 10^3/uL (0.0-0.7); Absolute Lymphocyte Count 2.48 10^3/uL (1.2-3.4); Absolute Monocyte Count 0.47 10^3/uL (0.1-0.8); Absolute Neutrophil Count 2.82 10^3/uL (1.2-6.7); Basophils % 0.3 %; Eosinophils % 1.5 %; HCT 40.4 % (36.0-46.0); HGB 13.3 g/dL (11.2-15.7); Immature Grans % 0.5 %; MCH 31.4 pg (27.0-33.0); MCHC 32.9 % (32.0-36.0); MCV 95 fL (80-95); MPV 10.1 fL (8.0-11.0); Neutrophils % 47.7 %; Platelet Count 280 10^3/uL (130-400); RBC 4.24 10^6/uL (3.93-5.22); RDW 13.6 % (11.7-14.6); RDW-SD 48.1 fL; WBC 5.91 10^3/uL (4.4-10.8)
[2024-06-26 17:09] LABS: ALT 142 U/L (14-59); AST 38 U/L (15-37); Albumin 3.4 g/dL (3.4-5.0); Alkaline Phosphatase 106 U/L (46-116); Anion Gap 6.5 mmol/L (3-11); BUN 19 mg/dL (7-18); Bilirubin, Total 0.43 mg/dL (0.2-1.0); CO2 29.5 mmol/L (21.0-32.0); CREATININE 1.1 mg/dL (0.55-1.02); Calcium 9.2 mg/dL (8.5-10.1); Chloride 106 mmol/L (98-107); Estimated GFR 57.88 (mL/min/1.73m2); Glucose 95 mg/dL (74-106); LDH 190 U/L (81-234); Potassium 3.9 mmol/L (3.5-5.1); Sodium 142 mmol/L (136-145)
== END 2024-06-26 16:56 | disposition home or self-care (01) ==
LOC: LBO 16:56
PROVIDERS: PCP Nurse Practitioner; Visit Provider Internal Medicine Hospice and Palliative Medicine
DX: C43.4 Malignant melanoma of scalp and neck (principal)
CPT/HCPCS: 36415; 80053; 83615; 85025

== ENCOUNTER 2024-06-29 00:45 | Outpatient (CLI) | payer MEDICARE, SELFPAY ==
[2024-06-29 13:47] LABS: ALT 118 U/L (14-59); AST 38 U/L (15-37); Albumin 3.6 g/dL (3.4-5.0); Alkaline Phosphatase 90 U/L (46-116); Anion Gap 8.5 mmol/L (3-11); BUN 23 mg/dL (7-18); CO2 26.5 mmol/L (21.0-32.0); CREATININE 1.1 mg/dL (0.55-1.02); Calcium 9.3 mg/dL (8.5-10.1); Chloride 106 mmol/L (98-107); Estimated GFR 57.88 (mL/min/1.73m2); Glucose 128 mg/dL (74-106); Potassium 4.3 mmol/L (3.5-5.1); Sodium 141 mmol/L (136-145); Total Protein 7.1 g/dL (6.4-8.2)
== END 2024-06-29 00:46 | disposition home or self-care (01) ==
LOC: LBO 00:45
PROVIDERS: PCP Nurse Practitioner; Visit Provider Internal Medicine Hospice and Palliative Medicine
DX: R74.8 Abnormal levels of other serum enzymes (principal)
CPT/HCPCS: 36415; 80053

== ENCOUNTER 2025-05-07 13:07 | Emergency (ER) | payer MEDICARE, SELFPAY ==
[2025-05-07] VITALS (25 sets, daily range): BP systolic 141–170; BP diastolic 69–86; PULSE 92–125; RESP 16–20; TEMP 37.2–37.6; O2SAT 97–100
--- NOTE | 2025-05-07 13:00 | RT.EKG_ITS ---
APPROVED REPORT Exam: Resting ECG Reason for Exam: Weakness Patient Location: E HR:118 bpm ECG Measurements Heart Rate 118 AXIS [place] 130 P 30 QRSd 94 QRS -43 QT 317 T 47 QTc 445 Conclusion Sinus tachycardia...rate> 99 Probable left atrial enlargement...P >50mS, <-0.10mV V1 Left anterior fascicular block...axis(240,-40), init forces inf Probable left ventricular hypertrophy...multiple LVH criteria
--- NOTE | 2025-05-07 13:30 | ED.GENADUL_ITS ---
Discharge Plan Disposition Patient Disposition: Home Condition: Improving Discharge Details Clinical Impression: Nausea vomiting and diarrhea, Medication side effect Primary Care Provider: Taylor Bryant ED Provider: Alexandra Ward Home Meds and New Rx's Prescriptions: New ondansetron 4 mg tablet,disintegrating 4 mg PO Q6H PRN (Reason: nausea and vomiting) Qty: 14 0RF pantoprazole [Protonix] 40 mg tablet,delayed release (DR/EC) 40 mg PO DAILY Qty: 20 0RF Continued ibuprofen [Advil Liqui-Gel] 200 mg capsule 600 mg PO Q12H PRN acetaminophen [Tylenol Extra Strength] 500 mg tablet 500 mg PO Q6H PRN fluoxetine 40 mg Capsule 40 mg PO DAILY Rx Instructions: administer in the morning and at noon/midday Discharge Instructions Instructions: Loperamide, Ondansetron, Dealing With Nausea and Vomiting From the Drugs You Take Additional Instructions: As we discussed, your physical exam and labs are reassuring. I did speak with your oncology team and they are hopeful that you will be able to continue with the medication but may need a short break to allow your stomach to rest and be able to tolerate fluids once again. Once you are able to tolerate fluids appro priately, you may split up your larger medication by taking for 3 of the tablets first thing in the morning and then waiting 2 hours to take the other 3 tablets. They also recommend that you take Zofran prior to the first dose in the morning. They also recommend Zofran scheduled and at night prior to your evening dose of the other medication. If you use the Zofran schedule as above, twice a day, you may also use it 2 other times throughout the day as needed for any recurrence of your nausea or vomiting. Have also prescribed you a proton pump inhibitor which helps with acid reflux which is common with some medications, please discuss this medication further with your oncology team. Please continue to encourage hydration. You may use Imodium which available [id number] if you have recurrence of your diarrhea. Advance your diet as tolerated but please start with easy to digest digest foods such as bananas, rice, applesauce, toast. Please keep your upcoming appointment with pulmonology and oncology. We have also sent referral to palliative care. If you develop any new or worsening symptoms or unable to stay hydrated please seek care urgently once again. Stand Alone Forms: Portal Information Referrals: Taylor Bryant [Primary Care Provider, Medicine] Discharge Data Discharge Date/Time-TO BE ENTERED AT DEPARTURE: 05/07/25 18:03 HPI General Date/Time Provider Initiated Documentation: 05/07/25 13:16 . Limitations to Documentation: no limitations . Information obtained by: patient, family (son) and RN notes reviewed . History of Present Illness 59 year old F presents to the emergency department with the chief complaint of nausea/vomiting/diarrhea, described as severe, Patient started experiencing this day(s) (3) and it has been constant. No relieving factors improve symptom(s), Movement worsens symptoms (chemo) . Patient notes loss of appetite, malaise and nausea/vomiting; denies chest pain, cough, diaphoresis, fever/chills, headaches, rash, shortness of breath and weakness. Patient did receive the following treatments prior to arrival, none Related Data Home Medications ?Medication ?Instructions ?Recorded ?Confirmed acetaminophen 500 mg tablet 500 mg PO Q6H PRN 10/20/20 05/07/25 (Tylenol Extra Strength) ibuprofen 200 mg capsule (Advil 600 mg PO Q12H PRN 05/07/25 Liqui-Gel) fluoxetine 40 mg capsule 40 mg PO DAILY 01/16/2204/10 ondansetron 4 mg disintegrating 4 mg PO Q6H PRN nausea and 05/07/25 tablet vomiting #14 tabs pantoprazole 40 mg tablet,delayed 40 mg PO DAILY #20 t abs 05/07/25 release (Protonix) Previous Rx's ?Medication ?Instructions ?Recorded ondansetron 4 mg disintegrating 4 mg PO Q6H PRN nausea and 05/07/25 tablet vomiting #14 tabs pantoprazole 40 mg tablet,delayed 40 mg PO DAILY #20 t abs 05/07/25 release (Protonix) Allergies Allergy/AdvReac Type Severity Reaction Status Date / Time codeine Allergy Intermediate Nausea Verified 05/07/25 13:14 General Stated Complaint: GenMedical SHAUN: 3 Review of Systems Constitutional Constitutional: Reports as per HPI, Denies chills, Denies fever(s) and Denies headache(s) ENT Ears, Nose, Mouth, and Throat: Denies headache(s) Cardiovascular Cardiovascular: Reports as per HPI, Denies chest pain and Denies dyspnea Respiratory Respiratory: Reports as per HPI, Denies cough and Denies dyspnea Gastrointestinal Gastrointestinal: Reports as per HPI Musculoskeletal Musculoskeletal: Reports as per HPI and Denies back pain Integumentary/Breasts Skin/Breast: Reports as per HPI and Denies rash Neurologic Neurologic: Reports as per HPI and Denies headache(s) Exam Const General: cooperative, comfortable, no acute distress, well developed and ill appearing chronically Nutritional Appearance: well nourished and overweight Orientation: alert and awake [facility] Head: normal to inspection Mouth: moist mucous membranes Resp Effort & Inspection: normal respiratory effort, able to speak in complete sentences and no respiratory distress Auscultation: clear to auscultation bilaterally, no rales, no rhonchi and no wheezes Cardio Rate: regular rate Rhythm: regular rhythm Heart Sounds: S1 normal and S2 normal GI Inspection: normal to inspection Palpation: soft, no guarding and nontender Percussion: normal to percussion Auscultation: normal bowel sounds Skin General skin exam: no rashes or lesions noted Trauma: no lacerations or abrasions Neuro General: patient alert and patient awake Cognition: normal cognition Speech: speech normal Gait: normal gait Extrem General: normal to inspection, no pedal edema and no calf tenderness Course Vital Signs Vital signs: Vital Signs Temperature 37.6 C 05/07/25 13:08 Pulse 125 H 05/07/25 13:08 Respiratory Rate 20 05/07/25 13:08 Blood Pressure 141/77 H 05/07/25 13:08 Pulse Oximetry 99 05/07/25 13:08 Temperature 37.6 C 05/07/25 13:13 Pulse 125 H 05/07/25 13:13 Respiratory Rate 20 05/07/25 13:13 Blood Pressure 141/77 H 05/07/25 13:13 Blood Pressure Position Sitting 05/07/25 13:13 Pulse Oximetry 99 05/07/25 13:13 Oxygen Delivery Method Room Air 05/07/25 13:13 Oxygen Flow Rate 0 05/07/25 13:13 Medical Decision Making Patient is a pleasant 59 year old female, accompanied by son, with PMH of metastatic cancer, presenting today wt c/c of nausea/vomiting since beginning a new chemotherapeutic agent. She states that she began the medication, unknown name, one week ago. Initially had some nausea but vomiting began 3 days ago and she has not been able to keep anyting down since. Denies any hematemesis. No SOB/CP or abdominal pain. Today was the first day she was not able to keep down any of her medications. Has not been assessed by oncology since starting the medication. Has also had intermittent diarrhea, this seems less of an issue than the vomiting. No known sick contacts, has been quarantined for the holidays. On exam, patient appears fatigued. She is tachycardic at 125 but no hypotension. She does appear slightly dehydrated. Lungs are clear, normal cardiac exam aside from tachycardia. Abdomen is soft and nontender. No calf tenderness or swelling. Patient is appropriate and oriented. Sons at bedside. Patient's clear timeline of when the symptoms began is consistent with a side effect associated with the new chemotherapeutic agent. Will give an antiemetic and begin hydration. Will obtain labs to evaluate for any electrolyte abnormalities and plan for consult with oncology once these have returned. Labs reviewed. Patient does have a leukocytosis of 14. She has not had any cough, abdominal pain, fever, acute illness symptoms. This is likely associated with stress or strain from all of the nausea and vomiting she has been having associated with the medication side effect. I do not feel that further evalua tion into the leukocytosis is warranted at this time but will certainly touch base with oncology regarding this abnormality. Neutrophils are not low. CMP without significant abnormality. Troponin was obtained abundance of caution in setting of nausea and was found to be normal. Will consult with oncology. Patient tolerating oral fluids and is eating crackers after IV fluids and IV Zofran. Consulted with oncology, Dr. Navarro, at [facility] [place]. He advised that she has a history of multiple myeloma. She is on targeted 2 part medication- benaninim and incarasanib. two medications, often cause GI upset. He recommends holding the medication for the time being. Advised that hodling for 1-2 wks should not have any retirement affects on her treatment. He recommends patient take Zofran 30 min prior to the new medications. Advised that the incarsanib should not be broken up AM then 3 tabs 2 hours later. He feels that she will be able to resume the medication with an antiemetic regimen. Discussed with patient, she is feeling improved. She did have an episode of diarrhea, sounds like this has occurred with the GI upset. Gave dose of Imodium. She feels ready for d/c to home after the IV fluids are completed. Lee end home with Imodium and Zofran. She has appointment next week with oncology, has appointment with pulmonology tomorrow. Referral for palliative care was placed. Return precautions discussed. All of her questions and concerns were addressed, she is in agreement with this plan. Dictation completed using [employer] dictation software. Please excuse any errors or bologna maker anomalies that may remain. PFSH All Active Problems (Updated 05/07/25 @ 16:27 by PATEL Cottrell) Medication side effect (Acute) Nausea vomiting and diarrhea (Acute) Psoriatic arthritis (Acute) left knee Social History Smoking/Tobacco Use Status: Never Smoking risk assessment performed?: Yes Alcohol Intake: current Alcohol Intake frequency: holidays/special occasions only Alcohol type: beer and wine Drug use: Never Substance use type: does not use Do you feel safe at home: Yes Do you feel safe in your relationship?: Yes
[2025-05-07] MEDS: Ondansetron 4 MG/2 ML VIAL IVP (13:36)
[2025-05-07] MEDS: Lactated Ringers 1,000 ML 1000 ML IV ×2 (13:36→15:17)
[2025-05-07 13:51] LABS: Abs Immature Grans 0.07 10^3/uL (0.0-0.06); HCT 42.9 % (36.0-46.0); HGB 13.9 g/dL (11.2-15.7); Immature Grans % 0.5 %; MCH 30.0 pg (27.0-33.0); MCHC 32.4 % (32.0-36.0); MCV 93 fL (80-95); MPV 10.7 fL (8.0-11.0); Platelet Count 274 10^3/uL (130-400); RBC 4.63 10^6/uL (3.93-5.22); RDW 13.6 % (11.7-14.6); RDW-SD 46.4 fL; WBC 14.17 10^3/uL (4.4-10.8)
[2025-05-07 14:11] LABS: ALT 36 U/L (10-49); AST 10 U/L (<34); Albumin 3.7 g/dL (3.2-5.0); Alkaline Phosphatase 56 U/L (46-116); Anion Gap 8.8 mmol/L (3-11); BUN 24 mg/dL (9-23); Bilirubin, Total 0.8 mg/dL (0.2-1.2); CO2 22.2 mmol/L (20.0-31.0); Calcium 8.4 mg/dL (8.3-10.6); Chloride 112 mmol/L (98-107); Glucose 129 mg/dL (74-106); Magnesium 1.8 mg/dL (1.6-2.6); Potassium 3.4 mmol/L (3.5-5.1); Sodium 143 mmol/L (136-145); Total Protein 6.1 g/dL (5.7-8.2)
[2025-05-07 14:12] LABS: Troponin I < 3 ng/L (<35)
[2025-05-07 15:00] LABS: Troponin I < 3 ng/L (<35)
[2025-05-07] MEDS: Loperamide 2 MG CAP PO ×2 (15:41→16:38)
== END 2025-05-07 18:03 | disposition home or self-care (01) ==
PROVIDERS: Emergency Provider Physician Assistant; PCP Nurse Practitioner
DX: T50.905A Adverse effect of unspecified drugs, medicaments and biological substances, initial encounter (principal); R11.2 Nausea with vomiting, unspecified; R19.7 Diarrhea, unspecified
CPT/HCPCS: 99283; 99284; 36415; 96374; 80053; 93005; 96361; 83735; 84484; 85025; 93010; J2405